=== PATIENT | female | born 1985 | race African-American/Black ===

== ENCOUNTER 2017-05-22 12:36 | Emergency (ER) | payer SELFPAY ==
[~2017-05-22] VITALS: Ht 154.9 cm; Wt 69.6 kg
[~2017-05-22 12:36] MED LIST: ALBUAER19 INH; ALBUAER2 INH; CETI10TA10 PO; INSUINJ8 SC; MONT1TAB3 PO; MTR600X PO; NVLGI SC; OXYC5TAB PO; PRENTAB26 PO
[2017-05-22 12:48] VITALS: TEMP 36.8; Ht 154.9 cm; Wt 69.6 kg
--- NOTE | 2017-05-22 14:45 | DIAGNOSTIC IMAGING REPORT ---
AP PELVIS AND LEFT HIP 3 VIEWS CLINICAL HISTORY: Left hip pain and numbness COMPARISON STUDY: No previous studies for comparison. FINDINGS: No fractures or dislocations are visualized. There are no erosive or destructive changes. IMPRESSION: Unremarkable conventional radiographic evaluation of the pelvis and left hip Electronically signed by: Ritesh Stratton M.D. 05/22/2017 2:43 PM Dictated Date/Time: 05/22/2017 2:42 PM
--- NOTE | 2017-05-22 14:45 | DIAGNOSTIC IMAGING REPORT ---
L SHOULDER MIN 2 VIEWS ROUTINE CLINICAL HISTORY: 31 years-old Female presenting with LEFT, EVAL PAIN , left shoulder pain and numbness, unable to move. TECHNIQUE: Internal rotation, external rotation, and Grashey views of the left shoulder were obtained. COMPARISON: None. FINDINGS: Glenohumeral and acromioclavicular joints congruent. No deformity of the humeral head. No degenerative change. Regional soft tissues within normal limits. Visualized portion of the left hemithorax normal. IMPRESSION: No acute osseous injury of the left shoulder. Electronically signed by: Matheus Garcia M.D. 05/22/2017 2:43 PM Dictated Date/Time: 05/22/2017 2:42 PM
--- NOTE | 2017-05-22 15:16 | EMERGENCY ROOM VISIT NOTE ---
ED Visit Note First contact with patient: 13:24 CHIEF COMPLAINT: Left shoulder pain times 2 days, left hip pain times one day HISTORY OF PRESENT ILLNESS: Patient is a [id number] 31-year-old female who presents emergency department for evaluation of left shoulder pain. He states that when she woke up yesterday she "could not move her left arm." She states that she could wiggle and move her fingers, but had pain that prevented her from moving her left arm. She noted pain in her elbow, her shoulder and into the left side of her neck. She denies any associated numbness or tingling. She denies any injury to the arm, no unusual activity or exercise prior to the onset of her pain. She was seen at a [facility] yesterday, and was prescribed naproxen which she did not take. She also did not try and the other interventions or medications. The patient primarily complains of pain in the top of her left shoulder. She rates her pain a 8/10. It is worse with specific movements, and radiates slightly toward the neck and the elbow. Patient also notes that she developed pain in the lateral aspect of the left hip that shoots slightly down the thigh. No radiation of the pain into her buttocks, and no low back pain. She denies any numbness, tingling or weakness into the left leg. No bowel or bladder incontinence. She does not have a prior history of cervical or lumbar spine disease. REVIEW OF SYSTEMS: Review of systems as per HPI. All other systems reviewed were negative. At least 6 systems reviewed. PMH: Electronic medical records are reviewed and summarized as above/below. See Problem List. SOCIAL HISTORY: Patient lives at home with her family. 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 Smoker. PHYSICAL EXAM: Vital Signs: Reviewed nurse's notes. PHYSICAL EXAM: CONSTITUTIONAL: Patient is a pleasant, well-appearing 31-year-old - Slov[place] female who is awake and alert and laying supine on the gurney in no acute distress. She is holding her left arm flexed at the elbow, across her abdomen, but is able to push up with her left arm to sit up, and uses both arms to disrobe and change into a gown. There is no is significant discomfort with position changes. NECK: Supple without lymphadenopathy. No thyromegaly. No meningeal signs. Full active range of motion without discomfort. CARDIOVASCULAR: Regular rate and rhythm. Peripheral pulses easily palpable. RESPIRATORY: Breath sounds equal and clear to auscultation. ABDOMEN: Bowel sounds are present. Abdomen is soft, nontender and nondistended. INTEGUMENTARY: No lesions or rash, normal skin turgor. LYMPH: No lymphadenopathy. SPINE: Examination of the patient's back does not demonstrate any ecchymosis, abrasions or outward signs of trauma. No erythema, increased warmth or induration. Patient has no midline discomfort to palpation. There is no pain over the SI joint or the sciatic notch. Full flexion, extension, rotation and lateral bending are noted. EXTREMITIES: Leg lengths are symmetrical. Negative logroll bilaterally. Normal strength including dorsi-flexion and plantar flexion of the great toes and ankles and flexion and extension of the knees and flexion of the hips. Negative bilateral straight leg raise testing. Lower extremity DTRs are equal and symmetrical bilaterally. Distal pulses are easily palpable. Sensation light touch is intact over the lower extremities bilaterally. The patient has reproducible discomfort over the left greater trochanter, extending down the IT band laterally. Examination of the left shoulder does not demonstrate any obvious deformity. She has some discomfort over the proximal biceps tendon, and over the rotator cuff insertion. There is no pain over the clavicle or the acromioclavicular joint. No pain over the spinous scapular, she does have some discomfort in the left trapezius muscle distribution. Internal and external rotation are full. She has discomfort with forward flexion greater than 100, and abduction greater than 90. Good rotator cuff strength testing. Left upper extremity is neurovascularly intact. Strength to resisted shoulder flexion/abduction, elbow flexion/extension, wrist flexion/extension, intrinsic hand strength, quality controller strength, and thumb opposition is 5/5 bilaterally. EMERGENCY DEPARTMENT COURSE: The patient was seen and examined as above. She presents the emergency department for evaluation of left shoulder pain and left hip pain. She has no neurologic deficits on exam. X-rays of the left shoulder , and left hip and pelvis were obtained, and did not note any acute abnormality. I suspect her findings may be related to a tendinitis/bursitis. She was encouraged to take the naproxen that she was previously prescribed by the walk-in clinic yesterday. She should ice the areas that are affected, and avoid any activity that aggravates her symptoms. She may benefit from physical therapy if her symptoms do not improve, and was encouraged to follow up with her primary care provider for further care through findings do not appear consistent with central pathology such as a demyelinating process. Certainly no evidence for CVA/TIA. I do not suspect cervical or lumbar radiculopathy. Medication reconciliation: I attest that I have personally reviewed the patient' s current medication list. Blood pressure screening : Patient was found to have normal blood pressure on screening and does not require follow-up. AP PELVIS AND LEFT HIP 3 VIEWS CLINICAL HISTORY: Left hip pain and numbness COMPARISON STUDY: No previous studies for comparison. FINDINGS: No fractures or dislocations are visualized. There are no erosive or destructive changes. IMPRESSION: Unremarkable conventional radiographic evaluation of the pelvis and left hip L SHOULDER MIN 2 VIEWS ROUTINE CLINICAL HISTORY: 31 years-old Female presenting with LEFT, EVAL PAIN , left shoulder pain and numbness, unable to move. TECHNIQUE: Internal rotation, external rotation, and Grashey views of the left shoulder were obtained. COMPARISON: None. FINDINGS: Glenohumeral and acromioclavicular joints congruent. No deformity of the humeral head. No degenerative change. Regional soft tissues within normal limits. Visualized portion of the left hemithorax normal. IMPRESSION: No acute osseous injury of the left shoulder. Problem List Medical Problems: (1) Anxiety State Nos Status: Chronic (2) Asthma Status: Chronic (3) Cardiac Murmurs Nec Status: Chronic (4) Depression Status: Chronic (5) Elective induction of labor planned Status: Resolved (6) Gestational diabetes mellitus (GDM) Status: Resolved (7) Major depressive disorder Status: Resolved Current/Historical Medications No Active Prescriptions or Reported Meds Allergies Coded Allergies: BEE STING (Unverified Allergy, Unknown, ANAPHYLAXIS, 05/22/17) Vital Signs Date Time Temp Pulse Resp B/P (MAP) Pulse Ox O2 Delivery O2 Flow Rate FiO2 05/22/17 15:34 97 135/89 97 05/22/17 12:48 36.8 113 18 119/84 97 Room Air Departure Information Impression Primary Impression: Left shoulder pain Additional Impression: Left hip pain Prescriptions No Active Prescriptions or Reported Meds Referrals No Doctor, Assigned (PCP) Patient Instructions [facility] Additional Instructions Take the Naproxen as prescribed by [facility]. Acetaminophen(Tylenol) may be used for fever or pain. Use 1000mg every six hours as needed. Avoid using more than 3000mg in a 24 hour period. This medication can be taken if you need to drive, work, or perform activities which may be dangerous when taking narcotic pain medication. Ice compresses for 20 minutes at a time four times daily for 2-3 days. Rest and elevate your injury. Gradually resume normal activity as symptoms allow. Continue current medications. Follow up with your primary care physician if your symptoms are not improving in 5-7 days. Problem Qualifiers
[2017-05-22 15:34] VITALS: BP 135/89; PULSE 97; O2SAT 97
== END 2017-05-22 15:35 | disposition home or self-care (01) ==
LOC: C.EDB 12:37 → C.EDD 15:35
DX: M25.512 Pain in left shoulder (principal); M25.552 Pain in left hip; F41.9 Anxiety disorder, unspecified; F32.9 Major depressive disorder, single episode, unspecified

== ENCOUNTER 2018-08-10 05:20 | Inpatient (IN) ==
[~2018-08-10 05:20] MED LIST changes: -ALBUAER19 INH; -ALBUAER2 INH; -CETI10TA10 PO; -INSUINJ8 SC; +LACTATED RINGER'S 1,000 ML IV SCH; -MONT1TAB3 PO; -MTR600X PO; -NVLGI SC; -OXYC5TAB PO; -PRENTAB26 PO
[2018-08-10] MEDS ORDERED: CITRIC ACID/SODIUM CITRATE 15 ML UDC PO SCH ×2 (06:00)
[2018-08-10] MEDS ORDERED: LACTATED RINGER'S 1,000 ML IV SCH ×3 (06:00→10:15)
[2018-08-10] MEDS ORDERED: CEFAZOLIN 2000MG 2,000 MG/15 ML SYR IV SCH (06:00)
[2018-08-10] MEDS ORDERED: CEFAZOLIN 2,000 MG in SYRINGE 0 ML IV SCH (06:00)
[2018-08-10 06:44] LABS: Basophils # (auto) 0.01 K/uL (0-0.2); Basophils % (auto) 0.1 %; Eosinophils # (auto) 0.07 K/uL (0-0.5); Eosinophils % (auto) 0.8 %; Hematocrit (blood only) 35.8 % (37-47); Hemoglobin 12.1 g/dL (12.0-16.0); Immature Granulocytes # (auto) 0.02 K/uL (0.00-0.02); Immature Granulocytes % (auto) 0.2 %; Lymphocytes # (auto) 1.65 K/uL (1.2-3.4); Lymphocytes % (auto) 18.3 %; Mean Corpuscular Hgb Conc 33.8 g/dL (32-36); Mean Corpuscular Volume 91.8 fL (80-100); Mean Platelet Volume 11.5 fL (7.4-10.4); Monocytes % (auto) 4.4 %; Neutrophils # (auto) 6.85 K/uL (1.4-6.5); Neutrophils % (auto) 76.2 %; Platelet Count 201 K/uL (130-400); RDW Coefficient of Variation 14.4 % (11.5-14.5)
--- NOTE | 2018-08-10 08:21 | History & Physical Bridge Note ---
Date of Service August 10, 2018 History & Physical Bridge Note I have examined the patient, reviewed the History & Physical and in the interval since the performance of the History & Physical I have noted the following changes of clinical significance: no changes noted
--- NOTE | 2018-08-10 09:04 | Anesthesiology Consultation ---
Date of Service August 10, 2018 Assessment & Plan (1) Encounter for pre-operative examination: Chart Review Chart Review: Acceptable Risk for Surgery and Patient NOT seen in Pre Admission Testing History Surgery Operation Date: 08/10/18 07:30 Proposed Procedures p Repeat Section in LD - Erick Grijalva MD Height/Weight Height: 5 ft 1 in Weight: 82 kg Allergies Allergy/AdvReac Type Severity Reaction Status Date / Time bee venom protein (honey bee) Allergy Unknown ANAPHYLAXIS Verified 08/09/18 15: 51 Medications Home Medications Medication Instructions Recorded Confirmed Last Taken Ca cmb [id number] 10 mg PO DAILY 07/30/18 08/09/18 07/29/18 10:00 [Vitamin D-3 with Aloe] [id number] fumarate-FA 1 tab PO DAILY 07/30/18 08/09/18 07/29/18 10:00 [] ferrous sulfate 325 mg PO DAILY 07/30/18 08/09/18 07/29/18 10:00 insulin glargine [Basaglar KwikPen 20 units SUBCUT QAM 07/30/18 08/09/18 12:00 U-100 Insulin] insulin lispro 20 unit SUBCUT AC 07/30/18 08/09/18 07/30/18 12:00 montelukast [Singulair] 10 mg PO PM 07/30/18 08/09/18 07/29/18 10:00 albuterol sulfate [Ventolin HFA] 1 puff INHALATION Q6H PRN 08/09/18 08/09/18 Unknown insulin glargine [Basaglar KwikPen 70 unit SUBCUT QPM 08/09/18 08/09/18 Unknown U-100 Insulin] Active Medications Generic Name Dose Route Start Last Admin Trade Name Freq PRN Reason Stop Dose Admin Lactated Ringer's 1,000 mls @ 999 mls/hr 08/10/18 06:00 08/10/18 07:00 Lr IV 08/10/18 10:00 999 mls/hr .Q1H1M GEOVANNA Infusion Past Medical History Medical History Anxiety H/O Asthma Cardiac murmur CONGENITAL -- BENIGN. Depression H/O GERD (gastroesophageal reflux disease) R/T Gestational diabetes Scoliosis MINOR Past Surgical History Surgical History History of adenoidectomy History of section History of tonsillectomy Social History Smoking Status: Former smoker tobacco type: cigarettes Do You Dip or Chew Tobacco: No Smoking End Date: 2016 Hx Alcohol Use: No Alcohol type: wine alcohol intake frequency: a few times a month Hx Substance Use: Yes substance use type: does not use Physical Exam Vital Signs Last Vital Signs Temp 36.7 C 08/10/18 07:02 Pulse 74 08/10/18 07:19 Resp 20 08/10/18 07:02 BP 136/90 08/10/18 07:19 Testing Laboratory Results 08/10/18 05:31 Blood Type AB Positive 08/10/18 05:31 Antibody Screen NEGATIVE 08/10/18 05:31 08/10/18 07:14 POC Glucose 85
[2018-08-10] MEDS ORDERED: MoRPHine SULFATE PF 1 MG/ML 10 ML AMP/VIAL ONE (09:15)
[2018-08-10] MEDS ORDERED: ePHEDrine sulfate 50 MG/ML AMP IV PRN (09:52)
[2018-08-10] MEDS ORDERED: DiphenhydrAMINE HCL 50 MG/ML VIAL IV PRN (09:52)
[2018-08-10] MEDS ORDERED: NALOXONE HCL 1 MG in SODIUM CHLORIDE 0.9% 1000ML 1,000 ML IV PRN (09:52)
[2018-08-10] MEDS ORDERED: NALOXONE HCL 0.08 MG in SYRINGE 1.8 ML IV PRN (09:52)
[2018-08-10] MEDS ORDERED: ONDANSETRON INJ 2 MG/ML 2 ML VIAL IV PRN (09:52)
[2018-08-10] MEDS ORDERED: HYDROmorphone INJ 0.5 MG/0.5 ML SYR IV PRN (09:52)
[2018-08-10] MEDS ORDERED: MEPERIDINE HCL 25 MG/ML CARP IV PRN (09:52)
[2018-08-10] MEDS ORDERED: NALOXONE HCL 0.4 MG/1 ML VIAL/CARP IV PRN (09:52)
[2018-08-10] MEDS ORDERED: NALBUPHINE HCL INJ 10 MG/ML AMP IV PRN (09:52)
[2018-08-10] MEDS ORDERED: METOCLOPRAMIDE HCL 10 MG in SODIUM CHLORIDE 0.9% 50 ML IV PRN (09:52)
[2018-08-10] MEDS ORDERED: MoRPHine SULFATE 2 MG/ML CARP IV PRN (09:52)
[2018-08-10] MEDS ORDERED: MoRPHine SULFATE PF 1 MG/ML 10 ML AMP/VIAL INT SPINAL ONE (09:52)
[2018-08-10] MEDS ORDERED: LACTATED RINGER'S 500 ML IV PRN (09:52)
[2018-08-10] MEDS ORDERED: DC INTRASPINAL MORPHINE SCH (10:00)
[2018-08-10] MEDS ORDERED: NO NARCOTICS OR SEDATIVES SCH (10:00)
[2018-08-10] MEDS ORDERED: SODIUM CHLORIDE 0.9% 1000ML 1,000 ML IV SCH (10:00)
[2018-08-10] MEDS ORDERED: OXYTOCIN 10 UNITS/ML VIAL ONE (10:35)
[2018-08-10] MEDS ORDERED: ePHEDrine sulfate 50 MG/ML SYR ONE (10:35)
[2018-08-10] MEDS ORDERED: miSOPROStol 200 MCG TAB ONE (10:35)
[2018-08-10] MEDS ORDERED: SUPERCREAM 0.870% 15 GM JAR EXT PRN (10:42)
[2018-08-10] MEDS ORDERED: SENNA 8.6 MG TAB PO PRN (10:42)
[2018-08-10] MEDS ORDERED: BENZOCAINE 20% AER SPR 82.5 GM CAN EXT PRN (10:42)
[2018-08-10] MEDS ORDERED: MAGNESIUM HYDROXIDE SUSP 30 ML UDC PO PRN (10:42)
[2018-08-10] MEDS ORDERED: HYDROCORTISONE ACETATE 25 MG SUPP PR PRN (10:42)
--- NOTE | 2018-08-10 10:42 | Post Operative Brief Note ---
Immediate Post Op Note v1 Date of Surgery August 10, 2018 Pre & Post Diagnosis Operation Date: 08/10/18 07:30 Pre-Op Diagnosis: Previous Section Delivery; Desires Repeat Section. Post-Op Diagnosis: Same as Preop Procedure Operation Date: 08/10/18 07:30 Actual Procedures p Section in Labor and Delivery. Live Female at 0947.(Bilateral ) - Erick Grijalva MD Surgeon Erick Grijalva MD Senior Chemical Engineer Dr King Estimated Blood Loss 600 Findings Consistent with Post-Op Diagnosis Drains Reed Catheter
[2018-08-10] MEDS: KETOROLAC 30 MG/ML VIAL IV PRN ×2 (12:20→19:59)
--- NOTE | 2018-08-10 12:59 | History and Physical Report ---
DATE OF ADMISSION: 08/10/2018 HISTORY OF PRESENT ILLNESS: The patient is a 32-year-old G2, P1, due date 08/25/2017 making her at 37 weeks and 6 days today. The patient's has been complicated by: 1. Gestational diabetes, on insulin. 2. IUGR. 3. Preeclampsia. She was seen yesterday by maternal medicine, and upon evaluation, the recommendation of maternal medicine was to have the patient done today and the reason was because of her IUGR, gestational diabetes and worsening blood pressures. Today on labor and delivery, she is being seen and her blood pressures are elevated. Blood pressures have been in the 160s/90s. Fingerstick glucose is 87. heart rate is category 1. COURSE: As stated on the HPI. PAST MEDICAL HISTORY: 1. History of asthma. 2. History of heart murmurs. 3. History of vitamin D deficiency. 4. ADHD. PAST SURGICAL HISTORY: The patient has had previous section as well as dental surgery in the past. SOCIAL HISTORY: The patient denies tobacco, drug or alcohol use. FAMILY HISTORY: Noncontributory. BUSINESS OPERATIONS COORDINATOR HISTORY: The patient delivered a live in 2015 by . Infant weighed 7 pounds 2 ounces. PHYSICAL EXAMINATION: GENERAL: Well-developed, well-nourished black female, in no acute distress. HEART: S1, S2, regular rhythm and rate. LUNGS: Clear to auscultation bilaterally. ABDOMEN: Gravid. EXTREMITIES: No cyanosis, clubbing or edema. ASSESSMENT AND PLAN: A 32-year-old G2, P1 at 37 weeks and 6 days, here for repeat section. The patient agrees to have today because of the followin. Worsening IUGR. 2. Preeclampsia. 3. Gestational diabetes, on insulin. The patient was seen yesterday by maternal medicine and recommended she be delivered today.
[2018-08-10] MEDS: OXYTOCIN 20 UNITS in LACTATED RINGER'S 1,000 ML IV SCH ×2 (13:21→21:48)
--- NOTE | 2018-08-10 14:32 | Anesthesiology Progress Note ---
Date of Service August 10, 2018 Anesthesia Post Procedure Vital Signs Vital Signs: Temp Pulse Pulse Resp BP BP Pulse Ox 08/10/18 14:07 36.5 C 20 08/10/18 13:25 36.6 C 80 18 132/89 100 08/10/18 13:13 72 142/85 H 93 08/10/18 13:08 79 89 L 08/10/18 13:06 86 86 L 08/10/18 13:04 73 147/88 H 08/10/18 13:03 74 94 08/10/18 12:58 72 93 08/10/18 12:53 74 143/86 H 94 08/10/18 12:48 71 93 08/10/18 12:44 72 87 L 08/10/18 12:43 70 135/92 92 08/10/18 12:38 72 93 08/10/18 12:33 68 128/82 93 08/10/18 12:28 70 94 08/10/18 12:23 69 131/86 94 08/10/18 12:18 74 93 08/10/18 12:14 68 125/77 08/10/18 12:13 69 94 08/10/18 12:08 75 95 08/10/18 12:03 72 96 08/10/18 11:58 72 96 08/10/18 11:56 76 89 L 08/10/18 11:53 69 96 08/10/18 11:48 83 96 08/10/18 11:45 36.5 C 08/10/18 11:44 68 137/59 L 08/10/18 11:43 69 95 08/10/18 11:38 78 94 08/10/18 11:33 74 124/89 95 08/10/18 11:28 74 94 08/10/18 11:24 74 114/77 08/10/18 11:23 72 91 08/10/18 11:19 77 135/100 08/10/18 11:18 80 93 08/10/18 11:13 76 94 08/10/18 11:10 75 90 08/10/18 11:08 76 100 08/10/18 11:03 78 123/86 100 08/10/18 10:58 76 96 08/10/18 10:57 75 93 08/10/18 10:53 70 116/73 100 08/10/18 10:48 75 100 12/28/18 10:45 36.3 C L 18 08/10/18 10:43 76 114/74 100 08/10/18 07:19 74 136/90 08/10/18 07:02 36.7 C 75 20 165/96 H 08/10/18 06:21 36.7 C 75 20 165/96 H 08/10/18 06:09 75 165/96 H 08/10/18 06:06 36.7 C 75 20 165/96 H 08/10/18 05:35 37.0 C 18 08/10/18 05:32 86 137/91 Pain Intensity Lower Medial Abdomen: Pain Intensity: 6 Notes Mental Status: alert / awake / arousable and participated in evaluation Patient Amnestic to Procedure: Yes Nausea / Vomiting: adequately controlled Pain: adequately controlled Airway Patency, RR, SpO2: stable & adequate BP & HR: stable & adequate Hydration State: stable & adequate Anesthetic Complications: no major complications apparent
[2018-08-10] MEDS: SIMETHICONE 80 MG CHEW PO SCH ×3 (15:06→20:53)
--- NOTE | 2018-08-10 15:14 | Operative Report ---
DATE OF OPERATION: 08/10/2018 INDICATION FOR SURGERY: This is a 32-year-old G2, P1 at 37+ weeks who has a previous section. Today, she underwent repeat section for the followin. Worsening IUGR. 2. Preeclampsia. 3. Gestational diabetes, on insulin. The patient was seen by maternal medicine in [place] on 08/09/2018 and was recommended to have section in the next day. PREOPERATIVE DIAGNOSES: 1. Prior , the patient is to do . 2. IUGR. 3. Preeclampsia. 4. Gestational diabetes, on insulin. POSTOPERATIVE DIAGNOSES: 1. Prior , the patient is to do . 2. IUGR. 3. Preeclampsia. 4. Gestational diabetes, on insulin. PROCEDURE: Repeat section. SURGEON: Erick Grijalva MD PAPER COUNTER: Jacek King MD ANESTHESIOLOGIST: Bryant Reaves MD ANESTHESIA: Spinal anesthesia was used. FINDINGS: Live infant in cephalic presentation, loose nuchal cord which was easily reduced. The uterus and adnexa, rest of the abdominal exam is unremarkable. INTRAVENOUS FLUIDS: 1000 mL. URINE OUTPUT: 250 mL. ESTIMATED BLOOD LOSS: 600 mL. COMPLICATIONS: None. DRAINS: Reed catheter. PATHOLOGY: Placenta and cord blood. DISPOSITION: Stable to recovery room. DESCRIPTION OF PROCEDURE: The patient was taken to the operating room where she was prepped and draped in normal sterile fashion. Timeout was called. A Pfannenstiel incision was made with a scalpel and then carried down to the fascia. Fascia was incised in the midline and extended laterally on both sides. The rectus abdominus muscle was sharply dissected off the fascia. Abdomen was entered sharply. Once inside the abdomen, the findings were as dictated above. An Alvin retractor was placed in the abdomen for retraction. The lower segment of the vesicouterine peritoneum was sharply dissected off. A transverse incision was made in the lower segment of the uterus and extended laterally on both sides. Infant was delivered. There was nuchal cord which was easily reduced. Cord was clamped and cut and the handed over to the pediatric team. Infant's weight, and other findings are in the pediatric record. Cord blood was obtained. Placenta was manually removed. Uterus was exteriorized and cleared of all clots and debris. Uterus incision was closed with Vicryl in 2 layers. There was good hemostasis at the end of the closure. The uterus was returned into the abdominal cavity. Copious amount of irrigation was used to irrigate the abdomen. There was good hemostasis at the end of irrigation. The peritoneum and uterus were closed using plain suture. Fascia was closed using a Vicryl stitch. SubQ was reapproximated using plain suture and skin was closed with britt. All instruments were removed from the abdomen and accounted for x2. The patient and infant are doing well, stable and in recovery room. I attest to the content of the Intraoperative Record and any orders documented therein. Any exception s are noted below.
[2018-08-10] MEDS: DOCUSATE SODIUM 100 MG CAP PO SCH (20:56)
[2018-08-11] MEDS ORDERED: ZOLPIDEM TARTRATE 5 MG TAB PO PRN (03:52)
[2018-08-11] MEDS ORDERED: ONDANSETRON INJ 2 MG/ML 2 ML VIAL IV PRN (03:52)
[2018-08-11] MEDS ORDERED: PROMETHAZINE HCL 25 MG in SODIUM CHLORIDE 0.9% 50 ML IV PRN (03:52)
[2018-08-11] MEDS ORDERED: DiphenhydrAMINE HCL 50 MG/ML VIAL IV PRN (03:52)
[2018-08-11] MEDS: IBUPROFEN 600 MG TAB PO PRN ×5 (04:08→21:39)
[2018-08-11] MEDS: OXYCODONE/ACETAMINOPHEN 5mg/325mg TAB PO PRN ×5 (04:08→21:39)
[2018-08-11 06:47] LABS: Basophils # (auto) 0.01 K/uL (0-0.2); Basophils % (auto) 0.1 %; Eosinophils # (auto) 0.06 K/uL (0-0.5); Eosinophils % (auto) 0.5 %; Hematocrit (blood only) 32.7 % (37-47); Hemoglobin 11.1 g/dL (12.0-16.0); Immature Granulocytes # (auto) 0.03 K/uL (0.00-0.02); Immature Granulocytes % (auto) 0.3 %; Lymphocytes # (auto) 1.19 K/uL (1.2-3.4); Lymphocytes % (auto) 10.1 %; Mean Corpuscular Hgb Conc 33.9 g/dL (32-36); Mean Corpuscular Volume 90.8 fL (80-100); Mean Platelet Volume 10.3 fL (7.4-10.4); Monocytes # (auto) 0.32 K/uL (0.11-0.59); Monocytes % (auto) 2.7 %; Neutrophils % (auto) 86.3 %; Platelet Count 170 K/uL (130-400); RDW Coefficient of Variation 14.2 % (11.5-14.5); RDW Standard Deviation 47.2 fL (36.4-46.3); White Blood Count 11.81 K/uL (4.8-10.8)
[2018-08-11] MEDS: DOCUSATE SODIUM 100 MG CAP PO SCH ×2 (09:07→21:40)
[2018-08-11] MEDS: PRENATAL VITAMIN 1 TAB PO SCH (09:07)
[2018-08-11] MEDS: SIMETHICONE 80 MG CHEW PO SCH ×4 (09:08→21:40)
[2018-08-11] MEDS: FERROUS SULFATE 325 MG TAB PO SCH (09:12)
--- NOTE | 2018-08-11 10:12 | Surgery Progress Note ---
Date of Service August 11, 2018 Subjective doing ok Physical Exam 2 Vital Signs (Past 24 Hours): Last Vital Signs Temp 36.6 C 08/11/18 04:00 Pulse 84 08/11/18 04:00 Resp 18 08/11/18 04:00 BP 128/85 08/11/18 04:00 Pulse Ox 97 08/11/18 04:00 Constitutional: WD/WN, vitals as above comfortable incision clean dry and intact abdomen soft and non-tender no edema neg Wendy's will increase diet and activity
[2018-08-11] MEDS ORDERED: BISACODYL 5 MG TABEC PO SCH (20:00)
[2018-08-12] MEDS: IBUPROFEN 600 MG TAB PO PRN ×4 (04:10→20:32)
[2018-08-12 06:44] LABS: Basophils # (auto) 0.02 K/uL (0-0.2); Basophils % (auto) 0.2 %; Eosinophils # (auto) 0.07 K/uL (0-0.5); Eosinophils % (auto) 0.6 %; Hematocrit (blood only) 29.6 % (37-47); Hemoglobin 9.9 g/dL (12.0-16.0); Immature Granulocytes # (auto) 0.02 K/uL (0.00-0.02); Immature Granulocytes % (auto) 0.2 %; Lymphocytes # (auto) 1.07 K/uL (1.2-3.4); Lymphocytes % (auto) 8.8 %; Mean Corpuscular Hgb Conc 33.4 g/dL (32-36); Mean Corpuscular Volume 91.9 fL (80-100); Mean Platelet Volume 10.8 fL (7.4-10.4); Monocytes # (auto) 0.51 K/uL (0.11-0.59); Monocytes % (auto) 4.2 %; Neutrophils # (auto) 10.46 K/uL (1.4-6.5); Platelet Count 175 K/uL (130-400); RDW Coefficient of Variation 14.5 % (11.5-14.5); RDW Standard Deviation 49.5 fL (36.4-46.3); Red Blood Count 3.22 M/uL (4.2-5.4); White Blood Count 12.15 K/uL (4.8-10.8)
[2018-08-12] MEDS: DOCUSATE SODIUM 100 MG CAP PO SCH ×2 (09:23→20:32)
[2018-08-12] MEDS: FERROUS SULFATE 325 MG TAB PO SCH (09:23)
[2018-08-12] MEDS: SIMETHICONE 80 MG CHEW PO SCH ×4 (09:23→20:31)
[2018-08-12] MEDS: PRENATAL VITAMIN 1 TAB PO SCH (09:24)
[2018-08-12] MEDS: OXYCODONE/ACETAMINOPHEN 5mg/325mg TAB PO PRN ×3 (09:29→20:34)
[2018-08-12] MEDS ORDERED: BISACODYL 10 MG SUPP PR PRN (10:42)
[2018-08-12 11:14] LABS: Albumin Level 2.2 gm/dl (3.4-5.0); BUN Creatinine Ratio 13.6 (10-20); Calcium 9.1 mg/dl (8.5-10.1); Creatinine Clr Calc Pharmacy 129.7 ml/min; Est GFR (Non-African American) 120.8; Potassium 3.7 mmol/L (3.5-5.1)
[2018-08-12 11:17] LABS: Albumin Globulin Ratio 0.5 (0.9-2); Bilirubin,Total 0.3 mg/dl (0.2-1); Globulin 4.3 gm/dl (2.5-4.0); Total Protein 6.5 gm/dl (6.4-8.2)
--- NOTE | 2018-08-12 11:32 | Obstetrical Progress Note ---
Date of Service August 12, 2018 Assessment & Plan (1) delivery delivered: C/sec day #2 Preclampsia GDMA2 pt doing well stable vitals FS; stable not requiring glucose BP: stable CMP ordered Subjective Ambulation: ambulating normally Voiding: no voiding problems Passing Gas:: Yes Diet Tolerance:: clear liquids Lochia:: Small Feeding Type:: breast feeding Review of Systems All systems reviewed & are unremarkable except as noted in HPI & below Physical Exam Vital Signs (Past 24 Hours) Last Vital Signs Temp 36.7 C 08/12/18 08:00 Pulse 103 H 08/12/18 08:00 Resp 18 08/12/18 08:00 BP 134/86 08/12/18 08:00 Pulse Ox 100 08/11/18 23:55 Constitutional WD/WN, vitals as above well developed and well nourished Eyes PERRL, conjunctivae normal, anicteric sclerae ENMT external ear and nose normal, oropharynx normal Neck trachea midline, no thyromegaly Respiratory normal respiratory effort, lungs clear to auscultation Cardiovascular RRR, no murmur, no edema Chest (Breasts) normal inspection/palpation of breasts Gastrointestinal (Abdomen) normal bowel sounds, soft, nontender, no hepatosplenomegaly Musculoskeletal no cyanosis or clubbing, extremities motor strength 5/5 Skin no rashes, warm and dry + incision (Clean,dry and intact) Neurologic patellar DTR's 2+ bilat, sensation intact Psychiatric A+Ox3, euthymic affect Genitourinary normal external appearance Lymphatic no cervical or axillary lymphadenopathy
[2018-08-13] MEDS: IBUPROFEN 600 MG TAB PO PRN ×4 (00:25→15:01)
[2018-08-13] MEDS: OXYCODONE/ACETAMINOPHEN 5mg/325mg TAB PO PRN ×5 (00:26→19:00)
[2018-08-13 06:47] LABS: Basophils # (auto) 0.02 K/uL (0-0.2); Basophils % (auto) 0.2 %; Eosinophils # (auto) 0.12 K/uL (0-0.5); Eosinophils % (auto) 1.1 %; Hematocrit (blood only) 29.6 % (37-47); Hemoglobin 9.9 g/dL (12.0-16.0); Immature Granulocytes # (auto) 0.03 K/uL (0.00-0.02); Immature Granulocytes % (auto) 0.3 %; Lymphocytes # (auto) 1.58 K/uL (1.2-3.4); Lymphocytes % (auto) 15.1 %; Mean Corpuscular Hgb Conc 33.4 g/dL (32-36); Mean Corpuscular Volume 92.8 fL (80-100); Mean Platelet Volume 10.4 fL (7.4-10.4); Monocytes # (auto) 0.46 K/uL (0.11-0.59); Monocytes % (auto) 4.4 %; Neutrophils # (auto) 8.26 K/uL (1.4-6.5); Neutrophils % (auto) 78.9 %; Platelet Count 196 K/uL (130-400); RDW Coefficient of Variation 14.5 % (11.5-14.5); RDW Standard Deviation 49.6 fL (36.4-46.3); Red Blood Count 3.19 M/uL (4.2-5.4); White Blood Count 10.47 K/uL (4.8-10.8)
--- NOTE | 2018-08-13 09:32 | Surgery Progress Note ---
Date of Service August 13, 2018 Subjective feeling well baby not able to go home today Physical Exam 2 Vital Signs (Past 24 Hours): Last Vital Signs Temp 36.9 C 08/13/18 07:05 Pulse 93 H 08/13/18 07:05 Resp 16 08/13/18 07:05 BP 136/90 08/13/18 07:17 Pulse Ox 96 08/13/18 07:05 Constitutional: WD/WN, vitals as above comfortable Skin: no rashes, warm and dry incision clean dry and intact passing gas no edema Neg Wendy's POD#3 tent discharge in AM
--- NOTE | 2018-08-13 09:44 | Anesthesiology Progress Note ---
Date of Service August 13, 2018 Anesthesia Post Procedure Vital Signs Vital Signs: Temp Pulse Pulse Resp BP BP Pulse Ox 08/13/18 07:17 136/90 142/93 H 08/13/18 07:05 36.9 C 93 H 16 138/93 96 08/12/18 23:50 36.6 C 96 H 18 126/85 98 08/12/18 20:15 36.7 C 98 H 18 125/87 99 08/12/18 15:00 37.2 C 109 H 18 129/87 Pain Intensity Lower Medial Abdomen: Pain Intensity: 8 Notes Mental Status: alert / awake / arousable and participated in evaluation Patient Amnestic to Procedure: Yes Nausea / Vomiting: adequately controlled Pain: adequately controlled Airway Patency, RR, SpO2: stable & adequate BP & HR: stable & adequate Hydration State: stable & adequate Neuraxial Anesthesia: was administered and sensory block resolved Anesthetic Complications: no major complications apparent and Pt Satisfied with anesthetic care
[2018-08-13] MEDS: DOCUSATE SODIUM 100 MG CAP PO SCH ×2 (10:40→20:39)
[2018-08-13] MEDS: FERROUS SULFATE 325 MG TAB PO SCH (10:40)
[2018-08-13] MEDS: SIMETHICONE 80 MG CHEW PO SCH ×4 (10:40→20:37)
[2018-08-13] MEDS: PRENATAL VITAMIN 1 TAB PO SCH (10:41)
[2018-08-14] MEDS: IBUPROFEN 600 MG TAB PO PRN ×3 (00:34→10:08)
[2018-08-14] MEDS: OXYCODONE/ACETAMINOPHEN 5mg/325mg TAB PO PRN ×3 (00:35→10:09)
[2018-08-14] MEDS ORDERED: Nursing to Pharmacy Communication ONE (07:15)
[2018-08-14 09:09] VITALS: BP 128/86; TEMP 98.4; O2SAT 99
[2018-08-14] MEDS: PRENATAL VITAMIN 1 TAB PO SCH (09:48)
[2018-08-14] MEDS: DOCUSATE SODIUM 100 MG CAP PO SCH (09:48)
[2018-08-14] MEDS: FERROUS SULFATE 325 MG TAB PO SCH (09:48)
[2018-08-14] MEDS: SIMETHICONE 80 MG CHEW PO SCH (09:48)
--- NOTE | 2018-08-14 10:27 | Obstetrical Progress Note ---
Date of Service August 14, 2018 Assessment & Plan (1) delivery delivered: c/sec day #4 doing well d/c home with instructions Subjective Ambulation: ambulating normally Voiding: no voiding problems Passing Gas:: Yes Diet Tolerance:: clear liquids Lochia:: Small Feeding Type:: breast feeding Review of Systems All systems reviewed & are unremarkable except as noted in HPI & below Physical Exam Vital Signs (Past 24 Hours) Last Vital Signs Temp 36.9 C 08/14/18 09:02 Pulse 99 H 08/14/18 09:02 Resp 20 08/14/18 09:02 BP 128/86 08/14/18 09:02 Pulse Ox 99 08/14/18 09:02 Constitutional WD/WN, vitals as above well developed and well nourished Eyes PERRL, conjunctivae normal, anicteric sclerae ENMT external ear and nose normal, oropharynx normal Neck trachea midline, no thyromegaly Respiratory normal respiratory effort, lungs clear to auscultation Cardiovascular RRR, no murmur, no edema Chest (Breasts) normal inspection/palpation of breasts Gastrointestinal (Abdomen) normal bowel sounds, soft, nontender, no hepatosplenomegaly Musculoskeletal no cyanosis or clubbing, extremities motor strength 5/5 Skin no rashes, warm and dry + incision (Clean,dry and intact) Neurologic patellar DTR's 2+ bilat, sensation intact Psychiatric A+Ox3, euthymic affect Genitourinary normal external appearance Lymphatic no cervical or axillary lymphadenopathy
[2018-08-14 11:22] VITALS: PULSE 96
--- NOTE | 2018-08-27 14:24 | Discharge Summary ---
CHIEF COMPLAINT: 1. at term. 2. complicated by gestational diabetes, IUGR and preeclampsia. HISTORY OF PRESENT ILLNESS: This is a 32-year-old G2, P1, due date 08/25/2017 making a 37 weeks and 6 days on 08/10/2018. The patient's was complicated by: 1. Gestational diabetes, on insulin. 2. Intrauterine growth restriction. 3. Preeclampsia. The patient was seen on 08/09/2018 by [facility] in [place], and upon evaluation, recommendation was to have to undergo a that day. She was therefore sent to labor and delivery at [facility] where her blood pressures were in the 160s/90s. Fingerstick was 87 and a heart rate was category 1. The patient underwent a section as recommended, delivered a live , weight and Apgars in the pediatric records. Surgery was unremarkable. The patient met all milestones postop. On postop day 1, 2, and 3, the patient continued to do well. The patient was discharged home on postop day 4, which was 08/14/2018. PAST MEDICAL HISTORY: 1. History of asthma. 2. History of heart murmurs. 3. History of vitamin D deficiency. 4. History of ADHD. 5. History of gestational diabetes in . PAST SURGICAL HISTORY: The patient has had a previous section and dental surgery. SOCIAL HISTORY: The patient denies tobacco, drug or alcohol use. FAMILY HISTORY: Noncontributory. 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 Infant then weighed 7 pounds and 2 ounces. ALLERGIES: No known drug allergies. REVIEW OF SYSTEMS: Negative except as in the HPI. PHYSICAL EXAMINATION: GENERAL: Well-developed, well-nourished black female, in no acute distress. VITAL SIGNS: On 08/14/2018, temperature 36.9, pulse is 96, blood pressure is 128/86. LABORATORY DATA: Labs on 08/13/2018 showed hemoglobin of 9.9, hematocrit of 29.6, platelets 196. CONDITION ON DISCHARGE: Stable. OPERATION: Repeat section. DISCHARGE DIAGNOSES: Repeat section, complicated by diabetes and IUGR. PLAN ON DISCHARGE: The patient is discharged home with instructions regarding activity, diet, followup appointments and medications.
== END 2018-08-14 12:30 | disposition home or self-care (01) | DRG 788 ==
LOC: 4S1 05:20 → EDSTATUS 07:30 → 4S2 14:46

== ENCOUNTER 2018-10-03 06:13 | Inpatient (IN) ==
[2018-10-03] MEDS ORDERED: METOCLOPRAMIDE HCL INJ 5 MG/ML 2 ML VIAL IV STA (06:38)
[2018-10-03] MEDS ORDERED: SODIUM CHLORIDE 0.9% 1000ML 1,000 ML IV SCH (06:45)
[2018-10-03] MEDS: HYDROmorphone INJ 1 MG/ML SYRINGE IV PRN ×2 (06:52→08:38)
[2018-10-03 07:01] LABS: Hematocrit (blood only) 49.4 % (37-47); Hemoglobin 17.1 g/dL (12.0-16.0); Immature Granulocytes # (auto) 0.01 K/uL (0.00-0.02); Immature Granulocytes % (auto) 0.1 %; Lymphocytes # (auto) 0.57 K/uL (1.2-3.4); Lymphocytes % (auto) 5.8 %; Mean Corpuscular Hgb Conc 34.6 g/dL (32-36); Mean Corpuscular Volume 92.5 fL (80-100); Mean Platelet Volume 10.6 fL (7.4-10.4); Monocytes # (auto) 0.61 K/uL (0.11-0.59); Monocytes % (auto) 6.2 %; Neutrophils # (auto) 8.65 K/uL (1.4-6.5); Neutrophils % (auto) 87.9 %; Platelet Count 155 K/uL (130-400); RDW Coefficient of Variation 14.7 % (11.5-14.5); RDW Standard Deviation 49.6 fL (36.4-46.3); Red Blood Count 5.34 M/uL (4.2-5.4); White Blood Count 9.84 K/uL (4.8-10.8)
[2018-10-03] MEDS ORDERED: DKA GOAL RANGE 150-250 mg/dl ONE ×2 (07:07→09:10)
[2018-10-03] MEDS ORDERED: SODIUM CHLORIDE 0.9% 1000ML 1,000 ML IV ONE (07:07)
[2018-10-03 07:18] LABS: iSTAT Creatinine 1.3 mg/dl (0.6-1.3); iSTAT Hemoglobin 18.7 g/dl (12.0-16.0); iSTAT Ionized Calcium 1.17 mmol/l (1.12-1.32)
[2018-10-03 07:34] LABS: Alanine Aminotransferase 222 U/L (12-78); Albumin Globulin Ratio 0.9 (0.9-2); Albumin Level 4.3 gm/dl (3.4-5.0); Alkaline Phosphatase 84 U/L (45-117); Aspartate Aminotransferase 322 U/L (15-37); BUN Creatinine Ratio 8.7 (10-20); Bilirubin,Total 1.4 mg/dl (0.2-1); Blood Urea Nitrogen 15 mg/dl (7-18); Calcium 9.2 mg/dl (8.5-10.1); Carbon Dioxide 8 mmol/L (21-32); Chloride 91 mmol/L (98-107); Creatine Kinase 566 U/L (26-192); Creatine Kinase MB 5.1 ng/ml (0.5-3.6); Creatinine Clr Calc Pharmacy 39.4 ml/min; Est GFR (African American) 43.9; Est GFR (Non-African American) 37.9; Globulin 4.9 gm/dl (2.5-4.0); Glucose 365 mg/dl (70-99); Sodium 127 mmol/L (136-145); Total Protein 9.2 gm/dl (6.4-8.2); Troponin I < 0.015 ng/ml (0-0.045)
[2018-10-03 07:48] LABS: Pregnancy Test, Serum Negative (Negative)
[2018-10-03] MEDS ORDERED: PIPERACILL/TAZOBAC CONSULT ACTIVE PRN (07:56)
[2018-10-03] MEDS ORDERED: DAPTOmycin 275 MG in SYRINGE 0 ML IV ONE (07:56)
[2018-10-03] MEDS ORDERED: PIPERACILLIN/TAZOBACTAM 4.5 GM/120 ML BAG IV ONE (07:56)
[2018-10-03 08:05] LABS: HCO3 ABG 9 mmol/L (19-24); Oxygen Saturation ABG 98.3 % (90-95); PCO2 ABG 21 mmHg (35-46); PO2 ABG 121 mm/Hg (80-95); pH ABG 7.24 (7.35-7.45)
[2018-10-03] MEDS ORDERED: OPTIRAY 320 125ml IV PRN (08:11)
[2018-10-03 08:30] LABS: Allen Test Pos (Pos)
[2018-10-03 08:33] LABS: Potassium 3.8 mmol/L (3.5-5.1)
[2018-10-03 08:38] LABS: Estimated Average Glucose 114 mg/dl; Hemoglobin A1C 5.6 % (4.5-5.6)
--- NOTE | 2018-10-03 08:39 | CT Scan Report ---
CT abd pelvis IV con only CLINICAL HISTORY: 33 years-old Female presenting with Pt c/o diffuse abd pain. TECHNIQUE: Multidetector CT of the abdomen and pelvis was performed after the administration of intra venous contrast. IV contrast: 119 mL of Optiray 320. One or more dose lowering techniques were used c onsistent with the principles of ALARA (as low as reasonably achievable), including automatic exposur e control, mA or kV adjustment to individual patient size, and/or use of iterative reconstruction. COMPARISON: None. CT DOSE (mGy.cm): The estimated cumulative dose is 597.50 mGy.cm. FINDINGS: Toll Lineman topogram: Unremarkable. Lung bases: Normal heart size. No pericardial or pleural effusion. No focal infiltrate or nodule at t he lung bases. Liver: Normal morphology. Density consistent with severe hepatic steatosis. No focal lesion. Patent h epatic vasculature. Biliary: No intrahepatic or extrahepatic biliary ductal dilatation. Normal gallbladder. Pancreas: Pancreatic parenchymal enlargement and mild heterogeneous diffuse parenchymal edema. Signif icant peripancreatic fluid along both the ventral and dorsal aspect of the entire increase. Focal col lections noted along the ventral aspect of the tail (series 7 image 145). Inflammatory change also tr acks into the lesser sac and root of the small bowel mesentery. Periduodenal fluid. No pancreatic marlyn winnie dilatation. Spleen: Normal. Adrenal glands: Normal. Kidneys and ureters: Mild focal cortical thinning of the posterior aspect of the upper pole of the le ft kidney indicative of reflux nephropathy. Renal parenchyma otherwise normal. No nephrolithiasis or hydronephrosis. Bladder: Normal. Pelvic organs: Degenerating calcified fibroid at the fundus. Ovaries normal. Bowel: Few diverticula noted in the cecum. The appendix is normal. No bowel obstruction. Mild circumf erential wall thickening with hyperenhancement of the descending portion of the duodenum with mild di stention and smooth tapering at the level of the horizontal portion. Peritoneal cavity: Trace free fluid in the abdomen. Primarily there is retroperitoneal fluid. No free intraperitoneal gas. Lymph nodes: No enlarged lymph nodes in the abdomen or pelvis. Vasculature: Aorta and IVC patent and normal in caliber. Abdominal wall: Diastasis of the rectus abdominis. Postsurgical changes of a Pfannenstiel incision. Musculoskeletal: Normal. IMPRESSION: 1. Interstitial edematous pancreatitis with acute peripancreatic fluid collection along the pancreat ic tail. No evidence of necrosis at this time. Exuberant surrounding inflammatory change and secondar y reactive changes of the duodenum. 2. No radiopaque gallstones. 3. Severe hepatic steatosis. Electronically signed by: Matheus Garcia M.D. 10/03/2018 8:38 AM
--- NOTE | 2018-10-03 08:41 | CT Scan Report ---
CT angio chest PE protocol HISTORY: 33 years-old Female with Chest Pain, eval for PE. Acute chest pain with shortness of breat h TECHNIQUE: Multiple CTA images of the chest were obtained after the intravenous administration of 119 ml Optiray 320. Coronal and sagittal MIPS were obtained from the axial data set and were submitted for review. All measurements were obtained according to NASCET criteria. A dose lowering technique w as utilized adhering to the principles of ALARA. COMPARISON: CT abdomen and pelvis of same day. FINDINGS: CTA: The heart is normal in size without pericardial effusion. The thoracic aortic arch is normal in cours e and caliber without aneurysm or dissection. The imaged great vessels appear to be patent. The pulmo nary arterial tree is opacified to level of the segmental branches. Evaluation of the distal segmenta l and subsegmental branches is limited secondary to respiratory motion. No focal filling defects iden tified to suggest pulmonary thromboembolic disease . CT CHEST: Partially imaged a millimeter hypodense nodule about the right thyroid. Thyroid appears mildly hetero geneous. Mild residual thymic tissue about the anterior mediastinum. No adenopathy by CT size criteri a. There is no pneumothorax or pleural effusion. Mild subsegmental bibasilar atelectasis. No focal airsp dorothy consolidation to suggest pneumonia. The central airways appear to be patent. Severe hepatic steat osis with hepatomegaly . Partially imaged free fluid and edema noted about the upper abdomen. The aj ast parenchyma and soft tissues appear unremarkable. The bones appear intact. IMPRESSION: 1. No acute intrathoracic abnormality, specifically no evidence of pulmonary thromboembolic disease. 2. No adenopathy or focal airspace consolidation to suggest pneumonia. 3. Severe hepatic steatosis. 4. Partially imaged edema and free fluid of the upper abdomen. Please see separately dictated CT abdo men and pelvis for further details. The above report was generated using voice recognition software. It may contain grammatical, syntax o r spelling errors. Electronically signed by: Fei Lancaster M.D. 10/03/2018 8:40 AM
[2018-10-03 08:58] LABS: Appearance Urine Cloudy (Clear); Bacteria Urine Automated Negative (Negative); Bilirubin Urine Negative (Negative); Blood Urine 3+ (Negative); Color Urine Yellow; Epithelial Cell Urine Auto >30 /lpf (0-5); Glucose Urine UA 1+ (Negative); Leukocyte Esterase Urine Negative (Negative); Nitrite Urine Negative (Negative); Protein Urine 4+ (Negative); Specific Gravity Urine > 1.045 (1.000-1.030); Urobilinogen Urine Negative (Negative)
[2018-10-03 09:02] LABS: Ketones Urine 4+ (Negative)
[2018-10-03] MEDS ORDERED: MODERATE STRESS LEVEL ONE (09:10)
[2018-10-03 09:15] LABS: Renal Epithelial Cells Urine 0-5 /lpf (0-5)
[2018-10-03 09:21] LABS: Beta-Hydroxybutyrate 99.08 mg/dl (0.2-2.81)
[2018-10-03 09:35] LABS: Amphetamines+Metham, Urine Neg (Neg); Barbiturates, Urine Neg (Neg); Benzodiazepine, Urine Neg (Neg); Cocaine, Urine Neg (Neg); MDMA (Ecstacy), Urine Neg (Neg); Methadone, Urine Neg (Neg); Opiate, Urine Pos (Neg); Phencyclidine, Urine Neg (Neg)
[2018-10-03] MEDS ORDERED: NSS + 20MEQ KCL 20 MEQ/1,000 ML BAG IV SCH (09:45)
--- NOTE | 2018-10-03 09:52 | History & Physical Report ---
Date of Service October 03, 2018 Assessment & Plan (1) DKA (diabetic ketoacidoses): -Admit to ICU secondary to DKA with significant metabolic acidosis -consult drawer liner Dr. Crabtree -DKA insulin gtt protocol ordered with goal range 150-250 -IVF NS with 20meq KCL 250ml/hr -when bsg in goal range with switch to D51/2 NS + 20meq KCL at 150ml/hr -bmp, vbg, mag ,phos q4hr -BSG q1hr -NPO -defer further management to drawer liner (2) Pancreatitis: -NPO -Aggressive fluid resuscitation as above -Monitor LFT and lipase level -Check fasting lipid panel in a.m. -Patient with intermittent NSAIDs and EtOH use (3) Gestational diabetes: -treated with insulin during -has been off insulin post -admitting bsg was 378, A1C 5.6 -Insulin gtt per DKA protocol -glycemic pharmacist on board (4) Asthma: -No acute exacerbation, as needed albuterol (5) Depression: -Was treated with Wellbutrin outpatient however patient has since discontinued this -Mood is stable (6) S/P : -7 weeks post op secondary to preeclampsia, gestational diabetes and IUGR by Dr. Grijalva on 08/10/18 -tolerated procedure well post op, was treated with macrobid x 7 days for dyusria post op on 08/22 -incision well healed (7) Hepatic steatosis: -Per CT scan -check fasting lipid panel in a.m. -low fat, low cholesterol diet when able to tolerate po -recommend appropriate follow up as outpatien (8) DVT prophylaxis: -scds disposition: D/C to home when able Follow up: PCP Dr. Nathan upon discharge Incidental findings found on CT was 1mm right thyroid nodule as well as severe hepatic steatosis. Would recommend appropriate outpatient follow-up. Patient was seen in collaboration with Dr. Murray, please see addendum. History of Present Illness Chief Complaint: Abdominal pain, n/v x 4 days. Primary Care Provider: Harinder Nathan This is a 33-year-old -[place] female who has a significant past medical history of chronic back pain, heart murmur, asthma, GERD, history of preeclampsia complicating , history of gestational diabetes, depression who presents to [facility] secondary to abdominal pain, nausea and vomiting times 4 days. Of significant note patient is 7 weeks . She was confined at [facility] from 08/10/18 to secondary to repeat . Patient underwent secondary to preeclampsia, gestational diabetes as well as IUGR by Dr. Grijalva. Patient tolerated procedure well without postoperative complications. Her blood sugars remain normal in the postop period. Outpt records reveal pt developed nausea, vaginal pain and dysuria after britt removed on 08/21/18. Therefore, given Macrobid for 7 days and completed. She had been doing well except for incisional discomfort until 4-5 days ago. Patient developed abdominal pain , emesis, nausea, inability to tolerate p.o. intake. Symptoms worsened which prompted her to present to ED. She currently is not breast-feeding and states she has not checked her blood sugar since leaving hospital or taken insulin. She denies fever, chills, sweats, lightheadedness, dizziness, chest pain, cough , URI symptoms, hemoptysis, shortness of breath, diarrhea, dysuria, increased frequency, urgency with urination, hematuria, vaginal discharge or bleeding. and child is at bedside. She has been taking ibuprofen 600 mg as needed for pain. She does drink alcohol approximately 3-4 times weekly, 2 glasses of wine. Allergies Allergy/AdvReac Type Severity Reaction Status Date / Time bee venom protein (honey bee) Allergy Unknown ANAPHYLAXIS Verified 10/03/18 07: 05 Home Medications Home Medications Medication Instructions Recorded Confirmed Type albuterol sulfate [Ventolin HFA] 1 puff INHALATION Q6H PRN 08/09/18 10/03/18 History Past Med/Surg History Medical History Asthma Cardiac murmur CONGENITAL -- BENIGN. 10/09/15 echo: The examination is adequate to evaluate the referral indication. The qualitative LV ejection fraction is 60-64% (normal). The left ventricular diastolic function is normal. No significant valvular disease is present. Depression H/O Anxiety H/O GERD (gastroesophageal reflux disease) R/T Scoliosis MINOR Gestational diabetes Surgical History History of adenoidectomy History of tonsillectomy History of section x 2 Family History Other Adopted Social History Current Living Situation: Spouse and Significant Other Other Information That Helps Us Care for You: No Feels Safe at Home: Yes Safety Concerns: Feels Safe At This Time Smoking Status: Current some day smoker Cigarettes per Day: 2 QOD Hx Alcohol Use: Yes Alcohol type: wine Alcohol Intake Frequency: a few times a week Hx Substance Use: No Beliefs That Will Affect Care: None Preferred Language: Sudanese 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: Effective Review of Systems All systems reviewed & are unremarkable except as noted in HPI & below Physical Exam 2 Vital Signs (Past 24 Hours): Last Vital Signs Temp 36.5 C 10/03/18 06:17 Pulse 106 H 10/03/18 09:00 Resp 16 10/03/18 09:00 BP 152/104 H 10/03/18 09:00 Pulse Ox 100 10/03/18 09:00 Physical Exam: Gen: WD/WN, F, ill appearing, sitting up in bed, pleasant, conversing easily Head: Normocephalic, Atraumatic Eyes: Sclera normal, no conjunctival injection, PERRLA, EOMI ENT: Gross hearing intact, normal pharynx, mucous membranes dry Neck: supple, no adenopathy, No JVD, no bruit, Resp: Clear to auscultation b/l, no wheeze, rales, rhonchi. Normal insp/exp effort, no accessory muscle use CV: Regular rate, regular rhythm, soft 1/6 DALIA noted LUSB, no rub, gallop, or ectopy Abd: + hypoactiveBS x 4, soft, mild distension, tenderness to epigastrum, RUQ with rebound, no rigidity or guarding, abdominal scar noted, well healed Musculoskeletal: moves extremities active rom x 4, strength intact, good dot net architect strength Extremities: No edema bilaterally Skin: warm, dry, no rash, mod turgor, cap refill < 2sec, Neuro: Alert and oriented x 3, speech normal, good mood/affect, cran nerve 2-12 intact grossly : deferred Results & Data Laboratory Results Short CBC 10/03/18 10/03/18 Range/Units 06:50 06:50 WBC 9.84 (4.8-10.8) K/uL Hgb 17.1 H (12.0-16.0) g/dL Hct 49.4 H (37-47) % Plt Count 155 (130-400) K/uL Est Cr Clr Drug Dosing 39.4 ml/min BMP 10/03/18 06:50 Sodium 127 L Potassium 3.8 Chloride 91 L Carbon Dioxide 8 L* BUN 15 Creatinine 1.75 H Glucose 365 H* Calcium 9.2 Cardiac Enzymes 10/03/18 Range/Units 06:50 Total Creatine Kinase 566 H (26-192) U/L CK-MB (CK-2) 5.1 H (0.5-3.6) ng/ml Troponin I < 0.015 (0-0.045) ng/ml Liver Function 10/03/18 Range/Units 06:50 Total Bilirubin 1.4 H (0.2-1) mg/dl AST 322 H (15-37) U/L ALT 222 H (12-78) U/L Alkaline Phosphatase 84 (45-117) U/L Albumin 4.3 (3.4-5.0) gm/dl Urine 10/03/18 Range/Units 08:40 Urine Color Yellow Urine Appearance Cloudy H (Clear) Urine pH 6.0 (4.5-7.5) Ur Specific [place] > 1.045 H (1.000-1.030) Urine Protein 4+ H (Negative) Urine Glucose (UA) 1+ H (Negative) Diagnostic Findings CTA Chest: IMPRESSION: 1. No acute intrathoracic abnormality, specifically no evidence of pulmonary thromboembolic disease. 2. No adenopathy or focal airspace consolidation to suggest pneumonia. 3. Severe hepatic steatosis. 4. Partially imaged edema and free fluid of the upper abdomen. Please see separately dictated CT abdomen and pelvis for further details. Abd/Pelvis CT: IMPRESSION: 1. Interstitial edematous pancreatitis with acute peripancreatic fluid collection along the pancreatic tail. No evidence of necrosis at this time. Exuberant surrounding inflammatory change and secondary reactive changes of the duodenum. 2. No radiopaque gallstones. 3. Severe hepatic steatosis. ECG Rate (beats per minute): 121 Rhythm: sinus tachycardia Code Status & VTE Plan Code Status Full Code VTE Prophylaxis Plan VTE Prophylaxis will be ordered: Yes Supervising Physician Co-Signing Physician Notes I have seen and examined the patient and have discussed the case with the provider above. I agree with the assessment and plan as stated. DO Trevor _ (1) DKA (diabetic ketoacidoses) Diabetes mellitus complication detail: without coma Diabetes mellitus type: other specified (including AGUSTIN) Qualified Code(s): E13.10 - Other specified diabetes mellitus with ketoacidosis without coma (2) Depression Depression Type: unspecified Qualified Code(s): F32.9 - Major depressive disorder, single episode, unspecified (3) Pancreatitis Acute pancreatitis complication: unspecified Chronicity: acute Pancreatitis type: unspecified pancreatitis type Qualified Code(s): K85.90 - Acute pancreatitis without necrosis or infection, unspecified (4) Gestational diabetes Gestational diabetes mellitus control: insulin-controlled Trimester: unspecified trimester Qualified Code(s): O24.414 - Gestational diabetes mellitus in , insulin controlled (5) Asthma Asthma complication type: uncomplicated Asthma persistence: persistent Asthma severity: moderate Qualified Code(s): J45.40 - Moderate persistent asthma, uncomplicated
[2018-10-03] MEDS: INSULIN REGULAR 250 UNITS in SODIUM CHLORIDE 0.9% 247.5 ML IV SCH (09:53)
--- NOTE | 2018-10-03 09:55 | Communication Note ---
Date of Service: October 03, 2018 32-year-old female who recently delivered her second child on 08/09/2018 via . Her was complicated again by gestational diabetes and she was on insulin, which she stopped after delivery based on the history from her first . Over the past several days she has experienced significant vomiting, fatigue, dehydration, nausea followed a couple of days later by acute epigastric pain. She has a history of asthma and reports an elevated respiratory rate with any kind of exertion in the last day. She is currently not wheezing and is stable from a respiratory status with a clear chest x-ray. Workup in the ER reveals anion gap metabolic acidosis consistent with DKA associated with acute pancreatitis. She is not currently breast- feeding. She denies any infectious symptoms including no dysuria, no cough, fevers or chills, and no diarrhea. Defer continuation of antibiotics to ICU attending. She is not currently tolerating p.o. Review of outpatient records reveals nausea, vaginal pain and dysuria after britt removed on 08/21/18. She was given Macrobid for 7 days. This was initially conveyed as an incisional infection by the patient, however there was no report of an incisional infection in the record and her incision is well-healed. The patient states that all infectious symptoms have cleared, and she is improved from that standpoint. 2 L of IV fluids given in the ER. Discussed the case with ICU attending who will accept patient for initial treatment. DO Trevor
[2018-10-03 10:17] LABS: BUN Creatinine Ratio 9.8 (10-20); Calcium 7.3 mg/dl (8.5-10.1); Creatinine Clr Calc Pharmacy 55.6 ml/min; Est GFR (African American) 66.6; Est GFR (Non-African American) 57.4; Magnesium 1.3 mg/dl (1.8-2.4); Potassium 3.7 mmol/L (3.5-5.1)
[2018-10-03] MEDS ORDERED: PHARMACY GLYCEMIC MGMT CONSULT PRN (10:23)
[2018-10-03] MEDS ORDERED: GLUCOSE 10 TABS/TUBE PO PRN (10:24)
[2018-10-03] MEDS ORDERED: GLUCAGON FOR INJ 1 MG VIAL IM PRN (10:24)
[2018-10-03] MEDS ORDERED: CARBOHYDRATES FOR HYPOGLYCEMIA PO PRN (10:24)
[2018-10-03] MEDS ORDERED: DEXTROSE 50% 50 ML SYRINGE IV PRN (10:24)
[2018-10-03] MEDS ORDERED: GLUCOSE 40% GEL 15 GM TUBE PO PRN (10:24)
[2018-10-03] MEDS ORDERED: ICU PROTOCOL FOR HYPERGLYCEMIA PRN (10:30)
[2018-10-03 10:33] LABS: Phosphorus 1.3 mg/dl (2.5-4.9)
[2018-10-03] MEDS ORDERED: POTASSIUM PHOS 3 MMOL/1 ML INFUSION IV STA ×2 (10:38→18:14)
[2018-10-03] MEDS ORDERED: SODIUM CHLORIDE 0.9% 1000ML 500 ML IV ONE ×2 (10:50→11:15)
[2018-10-03] MEDS ORDERED: ALBUTEROL HFA 8 GM INHALER INH PRN (10:58)
[2018-10-03] MEDS ORDERED: PENDING D5 1/2NS+20mEq KCL IVF SCH (11:00)
[2018-10-03] MEDS ORDERED: POTASSIUM PHOSPHATE 30 MMOL in SODIUM CHLORIDE 0.9% 500 ML IV ONE ×2 (11:00→18:30)
[2018-10-03] MEDS ORDERED: POTASSIUM CHLORIDE 20 MEQ in D5W AND 1/2NSS 1,000 ML IV SCH (11:00)
[2018-10-03 11:03] LABS: BUN Creatinine Ratio 10.1 (10-20); Calcium 7.5 mg/dl (8.5-10.1); Creatinine Clr Calc Pharmacy 57.4 ml/min; Est GFR (African American) 69.3; Est GFR (Non-African American) 59.8; Magnesium 1.3 mg/dl (1.8-2.4); Potassium 3.6 mmol/L (3.5-5.1)
[2018-10-03 11:27] LABS: Phosphorus 1.1 mg/dl (2.5-4.9)
--- NOTE | 2018-10-03 11:31 | Pharmacy Report ---
Pharmacy Glycemic Short Note 2 - Date of Service October 03, 2018 - Glycemic Short BSG Results (Last 24 hours): 10/03/18 10/03/18 10/03/18 06:50 06:52 06:57 Glucose 365 H* POC Glucose 374 H* POC Glucose (other) 378 H* 10/03/18 10/03/18 10/03/18 07:41 09:16 09:40 Glucose 278 H POC Glucose 306 H 274 H POC Glucose (other) 10/03/18 10/03/18 10:37 10:51 Glucose 246 H POC Glucose 210 H POC Glucose (other) OUTPATIENT ANTIDIABETIC REGIMEN: * N/A ASSESSMENT: 10/03 * Patient admitted to ICU today due to NV, abdominal pain, dehydration, DKA, pancreatitis, possible HELLP syndrome * Patient has a h/o gestational diabetes, in July 2018, no treatment for DM following delivery * Initial labs: Glu 365, Na 127 (corrected Na 131-132), AG 28, Bicarb 9, BOHB 99 , K 3.8, Lipase 34505 * 2 L NS given in ED, 500cc bolus x 1 ordered in ICU. Maint fluid NS + 20mEq KCl ordered * Insulin drip initiated in ED, moderate stress, goal range 150-250 PLAN FOR INPATIENT GLYCEMIC CONTROL: * Check A1c with next lab draw * Continue insulin drip at this time * Incorporated dextrose into IVF's when BSG within goal range, last BSG 210 --> discussed w/ Rail Specialist, will begin D5NS + 20mEq KCl @ 250cc/hr to allow for continued insulin administration until ketoacidosis resolves * Lower goal range to 120-200mg/dL * If pt is permitted to eat, would cover carbs with Novolog SQ to help minimize over titration of rates up and down between meals PLAN FOR DISCHARGE: * to be determined
[2018-10-03] MEDS ORDERED: INSULIN PROTOCOL GOAL RANGE ONE (11:39)
[2018-10-03] MEDS: D5NSS + 20MEQ KCL 20 MEQ/1,000 ML BAG IV SCH ×2 (12:01→15:14)
[2018-10-03] MEDS: HydrALAZINE HCL 20 MG/ML VIAL IV SCH ×3 (12:05→20:15)
[2018-10-03] MEDS: MAGNESIUM SULFATE / D5W 1 GM/100 ML BAG IV SCH ×2 (12:06→13:10)
--- NOTE | 2018-10-03 12:22 | Emergency Department Note ---
Entered by Rajwinder Saleh acting as a scribe for Abdoul Coates MD History of Present Illness General Chief complaint: Respiratory Problems Stated complaint: TROUBLE BREATHING Time Seen by Provider: 10/03/18 06:27 Source: patient History of Present Illness Provider complaint: abdominal pain Onset (ago): day(s) 2 Location: abdomen Pain Consistency: + constant Maximum Pain Intensity: 10 Quality: + other (abdominal pain) Associated symptoms: + other (chest pain, back pain, body aches, weakness, difficulty breathing, vomiting) Treatments prior to arrival: other (inhalers) The patient is a 33 year old female who presents to the Emergency Room with complaints of constant abdominal pain beginning 2 days ago. She reports chest and back pain. The patient notes diffuse body aches and weakness. She states she has been having difficulty breathing. The patient reports a history of asthma and states she has been using her inhalers. She notes she has been vomiting, and has not eaten anything in the past couple days. The patient reports she had a 4 weeks ago, and had gestational diabetes while . Home Medications Home Medications Medication Instructions Recorded Confirmed Type albuterol sulfate [Ventolin HFA] 1 puff INHALATION Q6H PRN 08/09/18 10/03/18 History Allergies Allergy/AdvReac Type Severity Reaction Status Date / Time bee venom protein (honey bee) Allergy Unknown ANAPHYLAXIS Verified 10/03/18 07: 05 Past Med/Surg History Medical History Asthma Cardiac murmur CONGENITAL -- BENIGN. 10/09/15 echo: The examination is adequate to evaluate the referral indication. The qualitative LV ejection fraction is 60-64% (normal). The left ventricular diastolic function is normal. No significant valvular disease is present. Depression H/O Anxiety H/O GERD (gastroesophageal reflux disease) R/T Scoliosis MINOR Gestational diabetes Surgical History History of adenoidectomy History of tonsillectomy History of section x 2 Social History Current Living Situation: Spouse and Significant Other Other Information That Helps Us Care for You: No Feels Safe at Home: Yes Safety Concerns: Feels Safe At This Time Smoking Status: Current some day smoker Cigarettes per Day: 2 QOD Hx Alcohol Use: Yes Alcohol type: wine Alcohol Intake Frequency: a few times a week Hx Substance Use: No Beliefs That Will Affect Care: None Preferred Language: Arabic 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: Effective Review of Systems See HPI for pertinent positives & negatives. and A total of 10 systems reviewed and were otherwise negative Physical Exam Vital Signs Vital Signs - 24 hr 10/03/18 06:17 10/03/18 07:17 10/03/18 08:33 Temperature 36.5 C Temperature Source Oral Sepsis Recent Fever Within 48 Hours No Sepsis Action Taken by Nursing No Action Required Pulse Rate 136 H Pulse Rate [Left Apical] Pulse Rate [Right Finger] 110 H Pulse Rate from SpO2 Sensor Respiratory Rate 28 H 18 Respiratory Effort / Characteristics Non-Labored Non-Labored Spontaneous Respiratory Depth Normal Normal Respiratory Pattern Regular Regular Blood Pressure 139/107 H Blood Pressure [Left Arm] 128/98 Blood Pressure Mean 117 Blood Pressure Mean [Left Arm] 108 Blood Pressure Position [Left Arm] Pulse Oximetry 98 98 Oxygen Delivery Method Room Air Room Air Room Air 10/03/18 09:00 10/03/18 09:51 10/03/18 09:52 Temperature Temperature Source Sepsis Recent Fever Within 48 Hours Sepsis Action Taken by Nursing Pulse Rate 110 H 106 H Pulse Rate [Left Apical] Pulse Rate [Right Finger] 106 H Pulse Rate from SpO2 Sensor 110 H 106 H Respiratory Rate 16 20 18 Respiratory Effort / Characteristics Respiratory Depth Normal Respiratory Pattern Blood Pressure 151/95 H Blood Pressure [Left Arm] 152/104 H Blood Pressure Mean 113 Blood Pressure Mean [Left Arm] 120 Blood Pressure Position [Left Arm] Pulse Oximetry 100 100 100 Oxygen Delivery Method Room Air 10/03/18 10:07 10/03/18 10:30 Temperature 37.3 C Temperature Source Oral Sepsis Recent Fever Within 48 Hours Sepsis Action Taken by Nursing Pulse Rate 113 H Pulse Rate [Left Apical] 115 H 118 H Pulse Rate [Right Finger] Pulse Rate from SpO2 Sensor Respiratory Rate 22 16 Respiratory Effort / Characteristics Non-Labored Spontaneous Non-Labored Spontaneous Respiratory Depth Normal Normal Respiratory Pattern Regular Regular Blood Pressure Blood Pressure [Left Arm] 133/111 H 149/103 H Blood Pressure Mean Blood Pressure Mean [Left Arm] 118 118 Blood Pressure Position [Left Arm] Lying Lying Pulse Oximetry 100 100 Oxygen Delivery Method Room Air Room Air GENERAL: Awake, alert, well-appearing, in no distress. Patient is hyperventilating. HENT: Normocephalic, atraumatic. Oropharynx unremarkable. EYES: Normal conjunctiva. Sclera non-icteric. NECK: Supple. No nuchal rigidity. FROM. No masses. RESPIRATORY: Clear to auscultation. No wheezes. No rales. Normal respiratory effort. CARDIAC: Normal rate. Normal rhythm. No murmurs. No rubs. Extremities warm and well perfused. Pulses equal. No JVD. GI: Soft, non-distended. Diffusely tender throughout abdomen. No rebound or guarding. No masses. RECTAL: Deferred. MUSCULOSKELETAL: Atraumatic. Chest examination reveals no tenderness. The back is symmetrical on inspection without obvious abnormality. There is no CVA tenderness to palpation. No joint edema. LOWER EXTREMITIES: Calves are equal size bilaterally and non-tender. No edema. No discoloration. NEURO: Normal sensorium. No sensory or motor deficits noted. Course 0634: Past medical records reviewed. The patient was evaluated in room B12B, and a complete history and physical examination were performed. 0817: Upon reevaluation, the patient is resting. I discussed test results. They verbalized agreement with the treatment plan. 0821: I reviewed the patient's case with Malini [facility]-C[facility] She will evaluate the patient for further management. 0845: Discussed the case with Dr. Crabtree, resident service coordinator. Consultations Consultation #1: Malini Wynne PA-C, [facility] hospitalist Time: 08:21 Consultation #2: Dr. Crabtree, resident service coordinator Time: 08:45 Administered Medications Hydralazine HCl (Hydralazine Hcl) 10 mg IV Q4H GEOVANNA Stop: 11/02/18 11:59 Last Admin: 10/03/18 12:05 Dose: 10 mg Insulin Human Regular 250 (units/ Sodium Chloride) 250 mls @ 1.3 mls/hr IV .Q24H GEOVANNA; Protocol Stop: 11/02/18 09:14 Last Titration: 10/03/18 10:50 Dose: 1.3 units/hr, 1.3 mls/hr Admin: 10/03/18 09:53 Dose: 1.6 units/hr, 1.6 mls/hr Potassium Phosphate 30 mmol/ (Sodium Chloride) 510 mls @ 102 mls/hr IV ONE ONE Stop: 10/03/18 15:59 Last Admin: 10/03/18 12:01 Dose: 102 mls/hr Potassium Chloride/Dextrose/Sod Cl (D5nss + 20meq Kcl) 20 meq in 1,000 mls @ 250 mls/hr IV .Q4H GEOVANNA Stop: 11/02/18 11:29 Last Admin: 10/03/18 12:01 Dose: 250 mls/hr Magnesium Sulfate/Dextrose (Magnesium Sulfate / D5w) 1 gm in 100 mls @ 100 mls/ hr IV Q1H GEOVANNA Stop: 10/03/18 13:29 Last Admin: 10/03/18 12:06 Dose: 100 mls/hr Discontinued Medications Hydromorphone HCl (Dilaudid) 1 mg IV Q15M PRN PRN Reason: Pain Stop: 10/17/18 06:37 Last Admin: 10/03/18 08:38 Dose: 1 mg Admin: 10/03/18 06:52 Dose: 1 mg Sodium Chloride (Nss 1000ml) 1,000 mls @ 999 mls/hr IV .Q1H1M GEOVANNA Stop: 10/03/18 07:45 Last Infusion: 10/03/18 08:08 Dose: 0 mls/hr Admin: 10/03/18 06:55 Dose: 999 mls/hr Sodium Chloride (Nss 1000ml) 1,000 mls @ 999 mls/hr IV .Q1H1M ONE Stop: 10/03/18 08:07 Last Infusion: 10/03/18 08:34 Dose: 0 mls/hr Admin: 10/03/18 07:26 Dose: 999 mls/hr Piperacillin Sod/Tazobactam Sod (Zosyn) 4.5 gm in 120 mls @ 240 mls/hr IV NOW ONE Stop: 10/03/18 08:25 Last Infusion: 10/03/18 09:11 Dose: 0 mls/hr Admin: 10/03/18 08:41 Dose: 240 mls/hr Daptomycin 275 mg/ Syringe 5.5 mls @ 2.75 mls/min IV NOW ONE Stop: 10/03/18 07:57 Last Admin: 10/03/18 08:38 Dose: 2.75 mls/min Potassium Chloride/Sodium Chloride (Normal Saline W/20 Meq Kcl) 20 meq in 1, 000 mls @ 250 mls/hr IV .Q4H GEOVANNA Stop: 11/02/18 09:44 Last Admin: 10/03/18 09:51 Dose: 250 mls/hr Sodium Chloride (Nss 1000ml) 500 mls @ 999 mls/hr IV .Q31M ONE Stop: 10/03/18 11:45 Last Admin: 10/03/18 11:05 Dose: 999 mls/hr Ioversol (Optiray 320 125ml) 119 ml IV ONCE PRN PRN Reason: Interaction Checking Stop: 10/07/18 08:10 Last Admin: 10/03/18 08:11 Dose: 119 ml Metoclopramide HCl (Reglan) 10 mg IV NOW STA Stop: 10/03/18 06:39 Last Admin: 10/03/18 06:52 Dose: 10 mg Miscellaneous (Insulin Protocol Dka Goal Range) 1 ea N/A ONE ONE Stop: 10/03/18 09:11 Last Admin: 10/03/18 12:01 Dose: 1 ea Miscellaneous (Insulin Protocol Moderate Stress Level) 1 ea N/A ONE ONE Stop: 10/03/18 09:11 Last Admin: 10/03/18 12:01 Dose: 1 ea Miscellaneous (Insulin Protocol Goal Range) 1 ea N/A ONE ONE Stop: 10/03/18 11:40 Last Admin: 10/03/18 12:02 Dose: 1 ea Medical Decision Making Differential Diagnosis Etiologies such as appendicitis, diverticulitis, PUD, biliary pathology, UTI, pancreatitis, obstruction, mesenteric ischemia, aortic pathology, infections, inflammatory bowel disease, renal colic, as well as others were entertained. Medical Records Attestation: I reviewed the patient's medical records. Home Medications Current Medication List: was personally reviewed by me Laboratory Data Attestation: I reviewed the patient's lab results. Result diagrams: 10/03/18 06:50 10/03/18 10:37 Lab Results 10/03/18 10/03/18 10/03/18 Range/Units 06:50 06:50 06:50 WBC 9.84 (4.8-10.8) K/uL RBC 5.34 (4.2-5.4) M/uL Hgb 17.1 H (12.0-16.0) g/dL POC Hgb (12.0-16.0) g/dl Hct 49.4 H (37-47) % POC Hct (37-47) % MCV 92.5 (80-100) fL MCH 32.0 (25-34) pg MCHC 34.6 (32-36) g/dL RDW Std Deviation 49.6 H (36.4-46.3) fL RDW Coeff of Arnold 14.7 H (11.5-14.5) % Plt Count 155 (130-400) K/uL MPV 10.6 H (7.4-10.4) fL Immature Gran % (Auto) 0.1 % Neut % (Auto) 87.9 % Lymph % (Auto) 5.8 % [place] % (Auto) 6.2 % Eos % (Auto) 0.0 % Baso % (Auto) 0.0 % Immature Gran # (Auto) 0.01 (0.00-0.02) K/uL Neut # (Auto) 8.65 H (1.4-6.5) K/uL Lymph # (Auto) 0.57 L (1.2-3.4) K/uL [place] # (Auto) 0.61 H (0.11-0.59) K/uL Eos # (Auto) 0.00 (0-0.5) K/uL Baso # (Auto) 0.00 (0-0.2) K/uL ABG pH (7.35-7.45) ABG pCO2 (35-46) mmHg ABG pO2 (80-95) mm/Hg ABG HCO3 (19-24) mmol/L ABG O2 Saturation (90-95) % ABG Base Excess (-9-1.8) mEq/L Isiah Test (Pos) VBG pH (7.36-7.41) Barometric Pressure mm/Hg Oxygen Given POC Sodium (135-144) mEq/L Sodium 127 L (136-145) mmol/L POC Potassium (3.3-5.0) mEq/L Potassium 3.8 (3.5-5.1) mmol/L POC Chloride (101-112) mEq/L Chloride 91 L (98-107) mmol/L Carbon Dioxide 8 L* (21-32) mmol/L POC Total CO2 (24-31) mEq/l Anion Gap 28.0 H (3-11) POC Anion Gap (16-25) mmol/L POC BUN (7-18) mg/dl BUN 15 (7-18) mg/dl Creatinine 1.75 H (0.6-1.2) mg/dl POC Creatinine (0.6-1.3) mg/dl Est Cr Clr Drug Dosing 39.4 ml/min Est GFR ( Amer) 43.9 Est GFR (Non-Af Amer) 37.9 BUN/Creatinine Ratio 8.7 L (10-20) Glucose 365 H* (70-99) mg/dl POC Glucose (70-99) POC Glucose (other) (70-99) mg/dl Estimat Average Glucose 114 mg/dl Hemoglobin A1c 5.6 (4.5-5.6) % Osmolality (280-300) mOsm/kg Calcium 9.2 (8.5-10.1) mg/dl POC Ioniz Calcium [place] (1.12-1.32) mmol/l Phosphorus (2.5-4.9) mg/dl Magnesium (1.8-2.4) mg/dl Total Bilirubin 1.4 H (0.2-1) mg/dl AST 322 H (15-37) U/L ALT 222 H (12-78) U/L Alkaline Phosphatase 84 (45-117) U/L Total Creatine Kinase 566 H (26-192) U/L CK-MB (CK-2) 5.1 H (0.5-3.6) ng/ml CK/CKMB % Calc 0.9 (0-3.0) Troponin I < 0.015 (0-0.045) ng/ml Total Protein 9.2 H (6.4-8.2) gm/dl Albumin 4.3 (3.4-5.0) gm/dl Globulin 4.9 H (2.5-4.0) gm/dl Albumin/Globulin Ratio 0.9 (0.9-2) Lipase 66063 H (73-393) U/L Beta-Hydroxybutyric Acd 99.08 H (0.2-2.81) mg/dl HCG, Qual (Negative) Urine Color Urine Appearance (Clear) Urine pH (4.5-7.5) Ur Specific [place] (1.000-1.030) Urine Protein (Negative) Urine Glucose (UA) (Negative) Urine Ketones (Negative) Urine Blood (Negative) Urine Nitrite (Negative) Urine Bilirubin (Negative) Urine Urobilinogen (Negative) Ur Leukocyte Esterase (Negative) Urine WBC (Auto) (0-5) /hpf Urine RBC (Auto) (0-4) /hpf U Hyaline Cast (Auto) (0-5) /lpf U Epithel Cells (Auto) (0-5) /lpf Urine Bacteria (Auto) (Negative) Ur Renal Epithelial Cell (0-5) /lpf Granular Casts (0) /lpf Urine Opiates Screen (Neg) Ur Methadone, Qual (Neg) Urine Barbiturates (Neg) Ur Phencyclidine (PCP) (Neg) U Amphetamin/Meth Scrn (Neg) MDMA (Ecstasy) Screen (Neg) U Benzodiazepines Scrn (Neg) Ur Cocaine Metabolite (Neg) U Marijuana (THC) Screen (Neg) 10/03/18 10/03/18 10/03/18 Range/Units 06:50 06:50 06:52 WBC (4.8-10.8) K/uL RBC (4.2-5.4) M/uL Hgb (12.0-16.0) g/dL POC Hgb (12.0-16.0) g/dl Hct (37-47) % POC Hct (37-47) % MCV (80-100) fL MCH (25-34) pg MCHC (32-36) g/dL RDW Std Deviation (36.4-46.3) fL RDW Coeff of Arnold (11.5-14.5) % Plt Count (130-400) K/uL MPV (7.4-10.4) fL Immature Gran % (Auto) % Neut % (Auto) % Lymph % (Auto) % [place] % (Auto) % Eos % (Auto) % Baso % (Auto) % Immature Gran # (Auto) (0.00-0.02) K/uL Neut # (Auto) (1.4-6.5) K/uL Lymph # (Auto) (1.2-3.4) K/uL [place] # (Auto) (0.11-0.59) K/uL Eos # (Auto) (0-0.5) K/uL Baso # (Auto) (0-0.2) K/uL ABG pH (7.35-7.45) ABG pCO2 (35-46) mmHg ABG pO2 (80-95) mm/Hg ABG HCO3 (19-24) mmol/L ABG O2 Saturation (90-95) % ABG Base Excess (-9-1.8) mEq/L Isiah Test (Pos) VBG pH (7.36-7.41) Barometric Pressure mm/Hg Oxygen Given POC Sodium (135-144) mEq/L Sodium (136-145) mmol/L POC Potassium (3.3-5.0) mEq/L Potassium (3.5-5.1) mmol/L POC Chloride (101-112) mEq/L Chloride (98-107) mmol/L Carbon Dioxide (21-32) mmol/L POC Total CO2 (24-31) mEq/l Anion Gap (3-11) POC Anion Gap (16-25) mmol/L POC BUN (7-18) mg/dl BUN (7-18) mg/dl Creatinine (0.6-1.2) mg/dl POC Creatinine (0.6-1.3) mg/dl Est Cr Clr Drug Dosing ml/min Est GFR ( Amer) Est GFR (Non-Af Amer) BUN/Creatinine Ratio (10-20) Glucose (70-99) mg/dl POC Glucose 374 H* (70-99) POC Glucose (other) (70-99) mg/dl Estimat Average Glucose mg/dl Hemoglobin A1c (4.5-5.6) % Osmolality 313 H (280-300) mOsm/kg Calcium (8.5-10.1) mg/dl POC Ioniz Calcium [place] (1.12-1.32) mmol/l Phosphorus (2.5-4.9) mg/dl Magnesium (1.8-2.4) mg/dl Total Bilirubin (0.2-1) mg/dl AST (15-37) U/L ALT (12-78) U/L Alkaline Phosphatase (45-117) U/L Total Creatine Kinase (26-192) U/L CK-MB (CK-2) (0.5-3.6) ng/ml CK/CKMB % Calc (0-3.0) Troponin I (0-0.045) ng/ml Total Protein (6.4-8.2) gm/dl Albumin (3.4-5.0) gm/dl Globulin (2.5-4.0) gm/dl Albumin/Globulin Ratio (0.9-2) Lipase (73-393) U/L Beta-Hydroxybutyric Acd (0.2-2.81) mg/dl HCG, Qual Negative (Negative) Urine Color Urine Appearance (Clear) Urine pH (4.5-7.5) Ur Specific [place] (1.000-1.030) Urine Protein (Negative) Urine Glucose (UA) (Negative) Urine Ketones (Negative) Urine Blood (Negative) Urine Nitrite (Negative) Urine Bilirubin (Negative) Urine Urobilinogen (Negative) Ur Leukocyte Esterase (Negative) Urine WBC (Auto) (0-5) /hpf Urine RBC (Auto) (0-4) /hpf U Hyaline Cast (Auto) (0-5) /lpf U Epithel Cells (Auto) (0-5) /lpf Urine Bacteria (Auto) (Negative) Ur Renal Epithelial Cell (0-5) /lpf Granular Casts (0) /lpf Urine Opiates Screen (Neg) Ur Methadone, Qual (Neg) Urine Barbiturates (Neg) Ur Phencyclidine (PCP) (Neg) U Amphetamin/Meth Scrn (Neg) MDMA (Ecstasy) Screen (Neg) U Benzodiazepines Scrn (Neg) Ur Cocaine Metabolite (Neg) U Marijuana (THC) Screen (Neg) 10/03/18 10/03/18 10/03/18 Range/Units 06:57 07:40 07:41 WBC (4.8-10.8) K/uL RBC (4.2-5.4) M/uL Hgb (12.0-16.0) g/dL POC Hgb 18.7 H (12.0-16.0) g/dl Hct (37-47) % POC Hct 55 H (37-47) % MCV (80-100) fL MCH (25-34) pg MCHC (32-36) g/dL RDW Std Deviation (36.4-46.3) fL RDW Coeff of Arnold (11.5-14.5) % Plt Count (130-400) K/uL MPV (7.4-10.4) fL Immature Gran % (Auto) % Neut % (Auto) % Lymph % (Auto) % [place] % (Auto) % Eos % (Auto) % Baso % (Auto) % Immature Gran # (Auto) (0.00-0.02) K/uL Neut # (Auto) (1.4-6.5) K/uL Lymph # (Auto) (1.2-3.4) K/uL [place] # (Auto) (0.11-0.59) K/uL Eos # (Auto) (0-0.5) K/uL Baso # (Auto) (0-0.2) K/uL ABG pH 7.24 L (7.35-7.45) ABG pCO2 21 L (35-46) mmHg ABG pO2 121 H (80-95) mm/Hg ABG HCO3 9 L (19-24) mmol/L ABG O2 Saturation 98.3 H (90-95) % ABG Base Excess -16.5 L (-9-1.8) mEq/L Isiah Test Pos (Pos) VBG pH (7.36-7.41) Barometric Pressure 742.4 mm/Hg Oxygen Given ROOM AIR POC Sodium 130 L (135-144) mEq/L Sodium (136-145) mmol/L POC Potassium 4.0 (3.3-5.0) mEq/L Potassium (3.5-5.1) mmol/L POC Chloride 98 L (101-112) mEq/L Chloride (98-107) mmol/L Carbon Dioxide (21-32) mmol/L POC Total CO2 9 L* (24-31) mEq/l Anion Gap (3-11) POC Anion Gap 28.0 H (16-25) mmol/L POC BUN 15 (7-18) mg/dl BUN (7-18) mg/dl Creatinine (0.6-1.2) mg/dl POC Creatinine 1.3 (0.6-1.3) mg/dl Est Cr Clr Drug Dosing ml/min Est GFR ( Amer) Est GFR (Non-Af Amer) BUN/Creatinine Ratio (10-20) Glucose (70-99) mg/dl POC Glucose 306 H (70-99) POC Glucose (other) 378 H* (70-99) mg/dl Estimat Average Glucose mg/dl Hemoglobin A1c (4.5-5.6) % Osmolality (280-300) mOsm/kg Calcium (8.5-10.1) mg/dl POC Ioniz Calcium [place] 1.17 (1.12-1.32) mmol/l Phosphorus (2.5-4.9) mg/dl Magnesium (1.8-2.4) mg/dl Total Bilirubin (0.2-1) mg/dl AST (15-37) U/L ALT (12-78) U/L Alkaline Phosphatase (45-117) U/L Total Creatine Kinase (26-192) U/L CK-MB (CK-2) (0.5-3.6) ng/ml CK/CKMB % Calc (0-3.0) Troponin I (0-0.045) ng/ml Total Protein (6.4-8.2) gm/dl Albumin (3.4-5.0) gm/dl Globulin (2.5-4.0) gm/dl Albumin/Globulin Ratio (0.9-2) Lipase (73-393) U/L Beta-Hydroxybutyric Acd (0.2-2.81) mg/dl HCG, Qual (Negative) Urine Color Urine Appearance (Clear) Urine pH (4.5-7.5) Ur Specific [place] (1.000-1.030) Urine Protein (Negative) Urine Glucose (UA) (Negative) Urine Ketones (Negative) Urine Blood (Negative) Urine Nitrite (Negative) Urine Bilirubin (Negative) Urine Urobilinogen (Negative) Ur Leukocyte Esterase (Negative) Urine WBC (Auto) (0-5) /hpf Urine RBC (Auto) (0-4) /hpf U Hyaline Cast (Auto) (0-5) /lpf U Epithel Cells (Auto) (0-5) /lpf Urine Bacteria (Auto) (Negative) Ur Renal Epithelial Cell (0-5) /lpf Granular Casts (0) /lpf Urine Opiates Screen (Neg) Ur Methadone, Qual (Neg) Urine Barbiturates (Neg) Ur Phencyclidine (PCP) (Neg) U Amphetamin/Meth Scrn (Neg) MDMA (Ecstasy) Screen (Neg) U Benzodiazepines Scrn (Neg) Ur Cocaine Metabolite (Neg) U Marijuana (THC) Screen (Neg) 10/03/18 10/03/18 10/03/18 Range/Units 08:40 08:40 09:16 WBC (4.8-10.8) K/uL RBC (4.2-5.4) M/uL Hgb (12.0-16.0) g/dL POC Hgb (12.0-16.0) g/dl Hct (37-47) % POC Hct (37-47) % MCV (80-100) fL MCH (25-34) pg MCHC (32-36) g/dL RDW Std Deviation (36.4-46.3) fL RDW Coeff of Arnold (11.5-14.5) % Plt Count (130-400) K/uL MPV (7.4-10.4) fL Immature Gran % (Auto) % Neut % (Auto) % Lymph % (Auto) % [place] % (Auto) % Eos % (Auto) % Baso % (Auto) % Immature Gran # (Auto) (0.00-0.02) K/uL Neut # (Auto) (1.4-6.5) K/uL Lymph # (Auto) (1.2-3.4) K/uL [place] # (Auto) (0.11-0.59) K/uL Eos # (Auto) (0-0.5) K/uL Baso # (Auto) (0-0.2) K/uL ABG pH (7.35-7.45) ABG pCO2 (35-46) mmHg ABG pO2 (80-95) mm/Hg ABG HCO3 (19-24) mmol/L ABG O2 Saturation (90-95) % ABG Base Excess (-9-1.8) mEq/L Isiah Test (Pos) VBG pH (7.36-7.41) Barometric Pressure mm/Hg Oxygen Given POC Sodium (135-144) mEq/L Sodium (136-145) mmol/L POC Potassium (3.3-5.0) mEq/L Potassium (3.5-5.1) mmol/L POC Chloride (101-112) mEq/L Chloride (98-107) mmol/L Carbon Dioxide (21-32) mmol/L POC Total CO2 (24-31) mEq/l Anion Gap (3-11) POC Anion Gap (16-25) mmol/L POC BUN (7-18) mg/dl BUN (7-18) mg/dl Creatinine (0.6-1.2) mg/dl POC Creatinine (0.6-1.3) mg/dl Est Cr Clr Drug Dosing ml/min Est GFR ( Amer) Est GFR (Non-Af Amer) BUN/Creatinine Ratio (10-20) Glucose (70-99) mg/dl POC Glucose 274 H (70-99) POC Glucose (other) (70-99) mg/dl Estimat Average Glucose mg/dl Hemoglobin A1c (4.5-5.6) % Osmolality (280-300) mOsm/kg Calcium (8.5-10.1) mg/dl POC Ioniz Calcium [place] (1.12-1.32) mmol/l Phosphorus (2.5-4.9) mg/dl Magnesium (1.8-2.4) mg/dl Total Bilirubin (0.2-1) mg/dl AST (15-37) U/L ALT (12-78) U/L Alkaline Phosphatase (45-117) U/L Total Creatine Kinase (26-192) U/L CK-MB (CK-2) (0.5-3.6) ng/ml CK/CKMB % Calc (0-3.0) Troponin I (0-0.045) ng/ml Total Protein (6.4-8.2) gm/dl Albumin (3.4-5.0) gm/dl Globulin (2.5-4.0) gm/dl Albumin/Globulin Ratio (0.9-2) Lipase (73-393) U/L Beta-Hydroxybutyric Acd (0.2-2.81) mg/dl HCG, Qual (Negative) Urine Color Yellow Urine Appearance Cloudy H (Clear) Urine pH 6.0 (4.5-7.5) Ur Specific [place] > 1.045 H (1.000-1.030) Urine Protein 4+ H (Negative) Urine Glucose (UA) 1+ H (Negative) Urine Ketones 4+ H (Negative) Urine Blood 3+ H (Negative) Urine Nitrite Negative (Negative) Urine Bilirubin Negative (Negative) Urine Urobilinogen Negative (Negative) Ur Leukocyte Esterase Negative (Negative) Urine WBC (Auto) 5-10 H (0-5) /hpf Urine RBC (Auto) 5-10 H (0-4) /hpf U Hyaline Cast (Auto) 10-30 H (0-5) /lpf U Epithel Cells (Auto) >30 H (0-5) /lpf Urine Bacteria (Auto) Negative (Negative) Ur Renal Epithelial Cell 0-5 (0-5) /lpf Granular Casts 1-5 H (0) /lpf Urine Opiates Screen Pos H (Neg) Ur Methadone, Qual Neg (Neg) Urine Barbiturates Neg (Neg) Ur Phencyclidine (PCP) Neg (Neg) U Amphetamin/Meth Scrn Neg (Neg) MDMA (Ecstasy) Screen Neg (Neg) U Benzodiazepines Scrn Neg (Neg) Ur Cocaine Metabolite Neg (Neg) U Marijuana (THC) Screen Neg (Neg) 10/03/18 10/03/18 10/03/18 Range/Units 09:40 09:40 10:37 WBC (4.8-10.8) K/uL RBC (4.2-5.4) M/uL Hgb (12.0-16.0) g/dL POC Hgb (12.0-16.0) g/dl Hct (37-47) % POC Hct (37-47) % MCV (80-100) fL MCH (25-34) pg MCHC (32-36) g/dL RDW Std Deviation (36.4-46.3) fL RDW Coeff of Arnold (11.5-14.5) % Plt Count (130-400) K/uL MPV (7.4-10.4) fL Immature Gran % (Auto) % Neut % (Auto) % Lymph % (Auto) % [place] % (Auto) % Eos % (Auto) % Baso % (Auto) % Immature Gran # (Auto) (0.00-0.02) K/uL Neut # (Auto) (1.4-6.5) K/uL Lymph # (Auto) (1.2-3.4) K/uL [place] # (Auto) (0.11-0.59) K/uL Eos # (Auto) (0-0.5) K/uL Baso # (Auto) (0-0.2) K/uL ABG pH (7.35-7.45) ABG pCO2 (35-46) mmHg ABG pO2 (80-95) mm/Hg ABG HCO3 (19-24) mmol/L ABG O2 Saturation (90-95) % ABG Base Excess (-9-1.8) mEq/L Isiah Test (Pos) VBG pH 7.26 L (7.36-7.41) Barometric Pressure mm/Hg Oxygen Given POC Sodium (135-144) mEq/L Sodium 129 L 133 L (136-145) mmol/L POC Potassium (3.3-5.0) mEq/L Potassium 3.7 3.6 (3.5-5.1) mmol/L POC Chloride (101-112) mEq/L Chloride 101 103 (98-107) mmol/L Carbon Dioxide 13 L 14 L (21-32) mmol/L POC Total CO2 (24-31) mEq/l Anion Gap 15.0 H 16.0 H (3-11) POC Anion Gap (16-25) mmol/L POC BUN (7-18) mg/dl BUN 12 12 (7-18) mg/dl Creatinine 1.24 H D 1.20 (0.6-1.2) mg/dl POC Creatinine (0.6-1.3) mg/dl Est Cr Clr Drug Dosing 55.6 57.4 ml/min Est GFR ( Amer) 66.6 69.3 Est GFR (Non-Af Amer) 57.4 59.8 BUN/Creatinine Ratio 9.8 L 10.1 (10-20) Glucose 278 H 246 H (70-99) mg/dl POC Glucose (70-99) POC Glucose (other) (70-99) mg/dl Estimat Average Glucose mg/dl Hemoglobin A1c (4.5-5.6) % Osmolality (280-300) mOsm/kg Calcium 7.3 L D 7.5 L (8.5-10.1) mg/dl POC Ioniz Calcium [place] (1.12-1.32) mmol/l Phosphorus 1.3 L* 1.1 L* (2.5-4.9) mg/dl Magnesium 1.3 L 1.3 L (1.8-2.4) mg/dl Total Bilirubin (0.2-1) mg/dl AST (15-37) U/L ALT (12-78) U/L Alkaline Phosphatase (45-117) U/L Total Creatine Kinase (26-192) U/L CK-MB (CK-2) (0.5-3.6) ng/ml CK/CKMB % Calc (0-3.0) Troponin I (0-0.045) ng/ml Total Protein (6.4-8.2) gm/dl Albumin (3.4-5.0) gm/dl Globulin (2.5-4.0) gm/dl Albumin/Globulin Ratio (0.9-2) Lipase (73-393) U/L Beta-Hydroxybutyric Acd (0.2-2.81) mg/dl HCG, Qual (Negative) Urine Color Urine Appearance (Clear) Urine pH (4.5-7.5) Ur Specific [place] (1.000-1.030) Urine Protein (Negative) Urine Glucose (UA) (Negative) Urine Ketones (Negative) Urine Blood (Negative) Urine Nitrite (Negative) Urine Bilirubin (Negative) Urine Urobilinogen (Negative) Ur Leukocyte Esterase (Negative) Urine WBC (Auto) (0-5) /hpf Urine RBC (Auto) (0-4) /hpf U Hyaline Cast (Auto) (0-5) /lpf U Epithel Cells (Auto) (0-5) /lpf Urine Bacteria (Auto) (Negative) Ur Renal Epithelial Cell (0-5) /lpf Granular Casts (0) /lpf Urine Opiates Screen (Neg) Ur Methadone, Qual (Neg) Urine Barbiturates (Neg) Ur Phencyclidine (PCP) (Neg) U Amphetamin/Meth Scrn (Neg) MDMA (Ecstasy) Screen (Neg) U Benzodiazepines Scrn (Neg) Ur Cocaine Metabolite (Neg) U Marijuana (THC) Screen (Neg) 10/03/18 10/03/18 10/03/18 Range/Units 10:37 10:51 11:51 WBC (4.8-10.8) K/uL RBC (4.2-5.4) M/uL Hgb (12.0-16.0) g/dL POC Hgb (12.0-16.0) g/dl Hct (37-47) % POC Hct (37-47) % MCV (80-100) fL MCH (25-34) pg MCHC (32-36) g/dL RDW Std Deviation (36.4-46.3) fL RDW Coeff of Arnold (11.5-14.5) % Plt Count (130-400) K/uL MPV (7.4-10.4) fL Immature Gran % (Auto) % Neut % (Auto) % Lymph % (Auto) % [place] % (Auto) % Eos % (Auto) % Baso % (Auto) % Immature Gran # (Auto) (0.00-0.02) K/uL Neut # (Auto) (1.4-6.5) K/uL Lymph # (Auto) (1.2-3.4) K/uL [place] # (Auto) (0.11-0.59) K/uL Eos # (Auto) (0-0.5) K/uL Baso # (Auto) (0-0.2) K/uL ABG pH (7.35-7.45) ABG pCO2 (35-46) mmHg ABG pO2 (80-95) mm/Hg ABG HCO3 (19-24) mmol/L ABG O2 Saturation (90-95) % ABG Base Excess (-9-1.8) mEq/L Isiah Test (Pos) VBG pH 7.29 L (7.36-7.41) Barometric Pressure mm/Hg Oxygen Given POC Sodium (135-144) mEq/L Sodium (136-145) mmol/L POC Potassium (3.3-5.0) mEq/L Potassium (3.5-5.1) mmol/L POC Chloride (101-112) mEq/L Chloride (98-107) mmol/L Carbon Dioxide (21-32) mmol/L POC Total CO2 (24-31) mEq/l Anion Gap (3-11) POC Anion Gap (16-25) mmol/L POC BUN (7-18) mg/dl BUN (7-18) mg/dl Creatinine (0.6-1.2) mg/dl POC Creatinine (0.6-1.3) mg/dl Est Cr Clr Drug Dosing ml/min Est GFR ( Amer) Est GFR (Non-Af Amer) BUN/Creatinine Ratio (10-20) Glucose (70-99) mg/dl POC Glucose 210 H 199 H (70-99) POC Glucose (other) (70-99) mg/dl Estimat Average Glucose mg/dl Hemoglobin A1c (4.5-5.6) % Osmolality (280-300) mOsm/kg Calcium (8.5-10.1) mg/dl POC Ioniz Calcium [place] (1.12-1.32) mmol/l Phosphorus (2.5-4.9) mg/dl Magnesium (1.8-2.4) mg/dl Total Bilirubin (0.2-1) mg/dl AST (15-37) U/L ALT (12-78) U/L Alkaline Phosphatase (45-117) U/L Total Creatine Kinase (26-192) U/L CK-MB (CK-2) (0.5-3.6) ng/ml CK/CKMB % Calc (0-3.0) Troponin I (0-0.045) ng/ml Total Protein (6.4-8.2) gm/dl Albumin (3.4-5.0) gm/dl Globulin (2.5-4.0) gm/dl Albumin/Globulin Ratio (0.9-2) Lipase (73-393) U/L Beta-Hydroxybutyric Acd (0.2-2.81) mg/dl HCG, Qual (Negative) Urine Color Urine Appearance (Clear) Urine pH (4.5-7.5) Ur Specific [place] (1.000-1.030) Urine Protein (Negative) Urine Glucose (UA) (Negative) Urine Ketones (Negative) Urine Blood (Negative) Urine Nitrite (Negative) Urine Bilirubin (Negative) Urine Urobilinogen (Negative) Ur Leukocyte Esterase (Negative) Urine WBC (Auto) (0-5) /hpf Urine RBC (Auto) (0-4) /hpf U Hyaline Cast (Auto) (0-5) /lpf U Epithel Cells (Auto) (0-5) /lpf Urine Bacteria (Auto) (Negative) Ur Renal Epithelial Cell (0-5) /lpf Granular Casts (0) /lpf Urine Opiates Screen (Neg) Ur Methadone, Qual (Neg) Urine Barbiturates (Neg) Ur Phencyclidine (PCP) (Neg) U Amphetamin/Meth Scrn (Neg) MDMA (Ecstasy) Screen (Neg) U Benzodiazepines Scrn (Neg) Ur Cocaine Metabolite (Neg) U Marijuana (THC) Screen (Neg) Imaging Data Radiologist's Impression: Radiology results as stated below per my review and the radiologist's interpretation: CT abd pelvis IV con only CLINICAL HISTORY: 33 years-old Female presenting with Pt c/o diffuse abd pain. TECHNIQUE: Multidetector CT of the abdomen and pelvis was performed after the administration of intravenous contrast. IV contrast: 119 mL of Optiray 320. One or more dose lowering techniques were used consistent with the principles of ALARA (as low as reasonably achievable), including automatic exposure control, mA or kV adjustment to individual patient size, and/or use of iterative reconstruction. COMPARISON: None. CT DOSE (mGy.cm): The estimated cumulative dose is 597.50 mGy.cm. FINDINGS: Hardware Technician topogram: Unremarkable. Lung bases: Normal heart size. No pericardial or pleural effusion. No focal infiltrate or nodule at the lung bases. Liver: Normal morphology. Density consistent with severe hepatic steatosis. No focal lesion. Patent hepatic vasculature. Biliary: No intrahepatic or extrahepatic biliary ductal dilatation. Normal gallbladder. Pancreas: Pancreatic parenchymal enlargement and mild heterogeneous diffuse parenchymal edema. Significant peripancreatic fluid along both the ventral and dorsal aspect of the entire increase. Focal collections noted along the ventral aspect of the tail (series 7 image 145). Inflammatory change also tracks into the lesser sac and root of the small bowel mesentery. Periduodenal fluid. No pancreatic ductal dilatation. Spleen: Normal. Adrenal glands: Normal. Kidneys and ureters: Mild focal cortical thinning of the posterior aspect of the upper pole of the left kidney indicative of reflux nephropathy. Renal parenchyma otherwise normal. No nephrolithiasis or hydronephrosis. Bladder: Normal. Pelvic organs: Degenerating calcified fibroid at the fundus. Ovaries normal. Bowel: Few diverticula noted in the cecum. The appendix is normal. No bowel obstruction. Mild circumferential wall thickening with hyperenhancement of the descending portion of the duodenum with mild distention and smooth tapering at the level of the horizontal portion. Peritoneal cavity: Trace free fluid in the abdomen. Primarily there is retroperitoneal fluid. No free intraperitoneal gas. Lymph nodes: No enlarged lymph nodes in the abdomen or pelvis. Vasculature: Aorta and IVC patent and normal in caliber. Abdominal wall: Diastasis of the rectus abdominis. Postsurgical changes of a Pfannenstiel incision. Musculoskeletal: Normal. IMPRESSION: 1. Interstitial edematous pancreatitis with acute peripancreatic fluid collection along the pancreatic tail. No evidence of necrosis at this time. Exuberant surrounding inflammatory change and secondary reactive changes of the duodenum. 2. No radiopaque gallstones. 3. Severe hepatic steatosis. CT angio chest PE protocol HISTORY: 33 years-old Female with Chest Pain, eval for PE. Acute chest pain with shortness of breath TECHNIQUE: Multiple CTA images of the chest were obtained after the intravenous administration of 119 ml Optiray 320. Coronal and sagittal MIPS were obtained from the axial data set and were submitted for review. All measurements were obtained according to NASCET criteria. A dose lowering technique was utilized adhering to the principles of ALARA. COMPARISON: CT abdomen and pelvis of same day. FINDINGS: CTA: The heart is normal in size without pericardial effusion. The thoracic aortic arch is normal in course and caliber without aneurysm or dissection. The imaged great vessels appear to be patent. The pulmonary arterial tree is opacified to level of the segmental branches. Evaluation of the distal segmental and subsegmental branches is limited secondary to respiratory motion. No focal filling defects identified to suggest pulmonary thromboembolic disease . CT CHEST: Partially imaged a millimeter hypodense nodule about the right thyroid. Thyroid appears mildly heterogeneous. Mild residual thymic tissue about the anterior mediastinum. No adenopathy by CT size criteria. There is no pneumothorax or pleural effusion. Mild subsegmental bibasilar atelectasis. No focal airspace consolidation to suggest pneumonia. The central airways appear to be patent. Severe hepatic steatosis with hepatomegaly . Partially imaged free fluid and edema noted about the upper abdomen. The breast parenchyma and soft tissues appear unremarkable. The bones appear intact. IMPRESSION: 1. No acute intrathoracic abnormality, specifically no evidence of pulmonary thromboembolic disease. 2. No adenopathy or focal airspace consolidation to suggest pneumonia. 3. Severe hepatic steatosis. 4. Partially imaged edema and free fluid of the upper abdomen. Please see separately dictated CT abdomen and pelvis for further details. The above report was generated using voice recognition software. It may contain grammatical, syntax or spelling errors. Electronically signed by: Fei Lancaster M.D. 10/03/2018 8:40 AM ECG Data Attestation: I personally reviewed and interpreted this ECG as follows: Indication: abdominal pain Rate (beats per minute): 121 Rhythm: sinus tachycardia Findings: + T-wave inversion (inferior leads); no ST depression and no ST elevation Blood Pressure Blood Pressure Findings: Normal blood pressure Blood Pressure Disposition: did not require urgent referral MDM Narrative This is a 33-year-old female who presents emergency department complaining of chest and abdominal pain. The patient smells of ketones. Her blood sugar was found to be elevated and her CO2 was found to be 6. Based on this the patient was given a normal saline bolus x2. She was placed on a insulin drip. She was also placed on broad-spectrum antibiotics. An ABG was also obtained. Patient was sent for a CAT scan of the abdomen and pelvis as well as chest. The patient 's laboratory work as well as her CAT scan are concerning for choledocholithiasis and she has an elevation in her lipase as well as her liver enzymes. She was given Dilaudid for her pain in the emergency department as well as Zofran. I did discuss the case with both the resident service coordinator as well as the hospitalist who agreed to admit the patient. Patient and family were in agreement with the treatment plan. Impression & Plan DKA (diabetic ketoacidoses), Choledocholithiasis Critical Care Time I have personally spent greater than 90 minutes of critical care time in the direct management of this patient. This includes bedside care, interpretation of diagnostic studies, and testing, discussion with consultants, patient, and family members, and other required patient management activities. This 90 minutes is in excess of all separately billable procedures. Discharge Plan Visit Data *Final* Discharge Date/Time: 10/03/18 09:54 Chief Complaint: Respiratory Problems Stated Complaint: TROUBLE BREATHING ED Provider: Abdoul Coates Discharge Problem: DKA (diabetic ketoacidoses), Choledocholithiasis Patient Disposition: Admitted As Inpatient Discharge Instructions Interventions: ED Discharge Assessment Last Done: 10/03/18 09:54 The scribe's documentation has been prepared under my direction and personally reviewed by me in its entirety. I confirm that the note above accurately reflects all work, treatment, procedures, and medical decision making performed by me.
[2018-10-03] MEDS: HYDROmorphone INJ 0.5 MG/0.5 ML SYR IV PRN ×3 (12:36→20:14)
[2018-10-03] MEDS ORDERED: PIPERACILLIN/TAZOBACTAM 3.375 GM in DEXTROSE 5% 100 ML IV SCH (14:00)
[2018-10-03] MEDS: INSULIN ASPART 100 UNITS/ML 3 ML PEN SC SCH ×3 (14:07→22:06)
--- NOTE | 2018-10-03 17:16 | Critical Care Consultation ---
Date of Consultation October 03, 2018 Assessment & Plan (1) Hepatic steatosis: Impression: 1. fatty liver. Hopefully not heading towards HELLP syndrome. 2. DKA secondary to lack of insulin. 3. Gestational hypertension, ongoing preeclampsia is most likely with the presence of proteinuria. 4. No evidence of papilledema or seizure disorder. 5. No evidence of infectious process. 6. Hepatic steatosis. 7. Acute pancreatitis in the face of DKA rather than biliary obstruction. 8. Gestational diabetes. Plan: 1. Start the patient on insulin drip. 2. Aggressive replacement of her potassium and phosphorus. 3. No need for bicarb. 4. Repeat labs every 4 hours. 5. Watch for the platelets. 6. Continue Dilaudid for pain. 7. Change IV fluid to normal saline with D5W and 20 mEq of potassium chloride at 250 mL an hour. I would change her IV fluid to half-normal saline with D5W if she start developing hyperchloremic metabolic acidosis. 8. Replace all her electrolytes accordingly. 9. Ice chips are okay, I will start clear liquid was she is able to do so. 10. Core measures for the ICU has been met. 11. Patient is a full code. 12. Hydralazine IV a regular basis for blood pressure control. 13. She may need add on labetalol as well. Case discussed with the staff on rounds and details, critical care time spent with the patient was 60 minutes. History of Present Illness Reason for Consultation: DKA, gestational fatty liver, hellp syndrome. Requesting Physician: Dr. Murray Attending Physician: Emelia Murray, History of Present Illness Dear Dr. Murray: Thank you for the kind referral of Mrs. Cerna to critical care service. This is a 33-year-old female with history of gestational diabetes, she is 2 para 2, she has had similar symptoms also in the previous , on this presentation, the patient was 38-week when she developed preeclampsia has to go for premature delivery. The baby was healthy but underweight according to her at 4 pounds 7 ounces. The patient had the delivery done via C- section. She did not have any evidence of extensive bleeding or unusual bleeding. The patient 4 weeks later was continued to have occasional nausea and vomiting in addition to abdominal pain, she stopped taking the insulin that when she was prescribed. She has not been taking her medications for hypertension or diabetes. The patient presented to the hospital with persistent nausea accompanied with abdominal pain. Workup revealed the patient is in DKA with elevated anion gap as well as delta delta. The patient was noted also to have elevated LFTs as well as lipase. She did not have any diarrhea, her abdominal pain has been persistent, responded to medications. When I interviewed her, she does not appear to be toxically ill. The patient blood pressure was elevated persistently, the rest of her vital signs remained stable. She does have significant dry mucosa, she feels thirsty. She denies any dizziness or near syncopal episode. She has no spotting vaginally as she does not have any vaginal bleed. No fever was reported either. No chest pain but she does have significant back pain radiating to worse her left flank. She did not have any history of tremor, no seizure activity, no postictal or aura symptoms. She does not have any blurry vision. Allergies Allergy/AdvReac Type Severity Reaction Status Date / Time bee venom protein (honey bee) Allergy Unknown ANAPHYLAXIS Verified 10/03/18 07: 05 Home Medications Home Medications Medication Instructions Recorded Confirmed Type albuterol sulfate [Ventolin HFA] 1 puff INHALATION Q6H PRN 08/09/18 10/03/18 History Patient History Medical History Asthma Cardiac murmur CONGENITAL -- BENIGN. 10/09/15 echo: The examination is adequate to evaluate the referral indication. The qualitative LV ejection fraction is 60-64% (normal). The left ventricular diastolic function is normal. No significant valvular disease is present. Depression H/O Anxiety H/O GERD (gastroesophageal reflux disease) R/T Scoliosis MINOR Gestational diabetes Surgical History History of adenoidectomy History of tonsillectomy History of section x 2 Family History Other Adopted Social History Current Living Situation: Spouse and Significant Other Other Information That Helps Us Care for You: No Feels Safe at Home: Yes Safety Concerns: Feels Safe At This Time Smoking Status: Current some day smoker Cigarettes per Day: 2 QOD Hx Alcohol Use: Yes Alcohol type: wine Alcohol Intake Frequency: a few times a week Hx Substance Use: No Beliefs That Will Affect Care: None Preferred Language: Citizen Of [place] 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: Effective Review of Systems Review of system as mentioned above, 14 systems has been reviewed otherwise were unremarkable. Physical Exam 2 Vital Signs (Past 24 Hours): Last Vital Signs Temp 36.8 C 10/03/18 12:26 Pulse 121 H 10/03/18 16:35 Resp 18 10/03/18 16:30 BP 139/101 H 10/03/18 16:00 Pulse Ox 100 10/03/18 16:00 Physical Exam: Vital signs are stable except for the blood pressure that has been persistently elevated, no fever, she is 100% on room air, S1-S2 regular rate and rhythm but tachycardic, distant breath sounds, abdomen is soft and benign, postop. No edema in the periphery. Neurologically she is intact. Funduscopy was done without evidence of papilledema. No skin rash. Results & Data Laboratory Results Her labs were reviewed which showed normal leukocytes, and hematocrit has been increasing likely from hemoconcentration, platelets remains in the range of 155. No left shift or bandemia. ABG showed 7.2 12/02/121/9/98. Repeat pH was 7.29 venous accounting for 7.34 arterial. Her bicarb is improving slowly, the anion gap remains elevated. The patient phosphorus was 1.1 and was repleted. Diagnostic Findings CT of the abdomen reviewed personally which showed clear lungs, hepatic steatosis, edematous pancreatitis. Peripancreatic fluid noted. No evidence of necrosis.
[2018-10-03 17:53] LABS: INR 1.1 (0.9-1.1); Partial Thromboplastin Time 27.7 Seconds (21.0-31.0); Prothrombin Time 10.8 Seconds (9.0-12.0)
[2018-10-03 18:13] LABS: BUN Creatinine Ratio 7.8 (10-20); Calcium 6.8 mg/dl (8.5-10.1); Creatinine Clr Calc Pharmacy 87.8 ml/min; Est GFR (African American) 106.6; Magnesium 1.9 mg/dl (1.8-2.4); Phosphorus 1.5 mg/dl (2.5-4.9); Potassium 3.8 mmol/L (3.5-5.1)
[2018-10-03] MEDS: POTASSIUM CHLORIDE 20 MEQ in D5W AND 1/2NSS 1,000 ML IV SCH ×2 (18:36→22:18)
[2018-10-03 19:52] LABS: Appearance Urine Clear (Clear); Bacteria Urine Automated Negative (Negative); Bilirubin Urine Negative (Negative); Blood Urine Trace (Negative); Color Urine Yellow; Epithelial Cell Urine Auto >30 /lpf (0-5); Glucose Urine UA 3+ (Negative); Ketones Urine 1+ (Negative); Leukocyte Esterase Urine Negative (Negative); Nitrite Urine Negative (Negative); Protein Urine 2+ (Negative); RBC Urine Automated 0-4 /hpf (0-4); Specific Gravity Urine 1.029 (1.000-1.030); Urobilinogen Urine Negative (Negative); pH Urine 5.5 (4.5-7.5)
[2018-10-03 20:00] LABS: Renal Epithelial Cells Urine 0-5 /lpf (0-5)
[2018-10-03 22:23] LABS: BUN Creatinine Ratio 7.5 (10-20); Calcium 6.8 mg/dl (8.5-10.1); Creatinine Clr Calc Pharmacy 106.9 ml/min; Est GFR (African American) 133.5; Est GFR (Non-African American) 115.2; Magnesium 1.7 mg/dl (1.8-2.4); Potassium 3.8 mmol/L (3.5-5.1)
[2018-10-03 22:37] LABS: Phosphorus 1.5 mg/dl (2.5-4.9)
[2018-10-03] MEDS ORDERED: MAGNESIUM SULFATE / D5W 1 GM/100 ML BAG IV ONE (22:45)
[2018-10-04] MEDS: HYDROmorphone INJ 0.5 MG/0.5 ML SYR IV PRN ×3 (00:16→08:01)
[2018-10-04] MEDS: HydrALAZINE HCL 20 MG/ML VIAL IV SCH ×3 (00:17→08:38)
[2018-10-04 01:38] LABS: BUN Creatinine Ratio 6.1 (10-20); Est GFR (African American) 140.6; Est GFR (Non-African American) 121.3; Magnesium 2.1 mg/dl (1.8-2.4); Potassium 3.7 mmol/L (3.5-5.1)
[2018-10-04 01:59] LABS: Phosphorus 1.5 mg/dl (2.5-4.9)
[2018-10-04] MEDS: POTASSIUM CHLORIDE 20 MEQ in D5W AND 1/2NSS 1,000 ML IV SCH ×2 (02:23→06:58)
[2018-10-04] MEDS ORDERED: POTASSIUM PHOS 3 MMOL/1 ML INFUSION IV STA ×3 (02:26→08:11)
[2018-10-04] MEDS ORDERED: POTASSIUM PHOSPHATE 30 MMOL in SODIUM CHLORIDE 0.9% 500 ML IV ONE ×2 (02:30→12:00)
[2018-10-04] MEDS ORDERED: LEVALBUTEROL 1.25MG/0.5ML NEB INH PRN (04:08)
[2018-10-04] MEDS ORDERED: XOPENEX/ATROVENT 1.25mg/0.5MG NEB COMBO NEB PRN (04:08)
[2018-10-04] MEDS ORDERED: IPRATROPIUM BROMIDE NEB SOLN 0.02% 2.5 ML VIAL INH PRN (04:22)
[2018-10-04 05:32] LABS: Basophils # (auto) 0.01 K/uL (0-0.2); Basophils % (auto) 0.2 %; Eosinophils # (auto) 0.04 K/uL (0-0.5); Eosinophils % (auto) 0.6 %; Hematocrit (blood only) 34.8 % (37-47); Immature Granulocytes # (auto) 0.02 K/uL (0.00-0.02); Immature Granulocytes % (auto) 0.3 %; Lymphocytes # (auto) 0.58 K/uL (1.2-3.4); Mean Corpuscular Hgb Conc 34.5 g/dL (32-36); Mean Corpuscular Volume 90.4 fL (80-100); Mean Platelet Volume 11.2 fL (7.4-10.4); Monocytes # (auto) 0.32 K/uL (0.11-0.59); Monocytes % (auto) 4.9 %; Neutrophils # (auto) 5.51 K/uL (1.4-6.5); Platelet Count 102 K/uL (130-400); RDW Coefficient of Variation 15.3 % (11.5-14.5); RDW Standard Deviation 50.1 fL (36.4-46.3); Red Blood Count 3.85 M/uL (4.2-5.4); White Blood Count 6.48 K/uL (4.8-10.8)
[2018-10-04 05:47] LABS: Albumin Level 2.6 gm/dl (3.4-5.0); BUN Creatinine Ratio 5.6 (10-20); Creatinine Clr Calc Pharmacy 147.5 ml/min; Est GFR (African American) 148.4; Est GFR (Non-African American) 128.1; Magnesium 1.8 mg/dl (1.8-2.4); Potassium 3.6 mmol/L (3.5-5.1)
[2018-10-04 05:54] LABS: Bilirubin Direct 0.2 mg/dl (0-0.2); Bilirubin,Total 0.5 mg/dl (0.2-1); Phosphorus 1.8 mg/dl (2.5-4.9); Total Protein 5.9 gm/dl (6.4-8.2)
--- NOTE | 2018-10-04 07:33 | XRay Report ---
XR chest 1V portable HISTORY: Short of breath. COMPARISON: Chest CTA 10/03/2018. FINDINGS: The lungs are clear. Cardiac silhouette is normal in size. No pleural effusions. No pneumot horax. IMPRESSION: No acute process. Electronically signed by: Kadeem Graff M.D. 10/04/2018 7:32 AM
[2018-10-04] MEDS: INSULIN REGULAR 250 UNITS in SODIUM CHLORIDE 0.9% 247.5 ML IV SCH ×2 (07:56→09:16)
[2018-10-04] MEDS: INSULIN ASPART 100 UNITS/ML 3 ML PEN SC SCH ×6 (07:57→23:43)
[2018-10-04] MEDS ORDERED: INSULIN GLARGINE 100 UNIT/ML VIAL SC STA (08:08)
[2018-10-04] MEDS ORDERED: SODIUM CHLORIDE 0.45 % 1,000 ML IV SCH (09:30)
[2018-10-04] MEDS ORDERED: OXYCODONE HCL IR 5 MG TAB (IMMEDIATE RELEASE) PO SCH (10:45)
[2018-10-04] MEDS: POTASSIUM CHLORIDE 20 MEQ in SODIUM CHLORIDE 0.45 % 1,000 ML IV SCH ×2 (10:57→21:00)
--- NOTE | 2018-10-04 11:02 | Critical Care Progress Note ---
Date of Service October 04, 2018 Assessment & Plan (1) Hepatic steatosis: Impression: 1. fatty liver. Hopefully not heading towards HELLP syndrome. 2. DKA secondary to lack of insulin. 3. Gestational hypertension, ongoing preeclampsia is most likely with the presence of proteinuria. 4. No evidence of papilledema or seizure disorder. 5. No evidence of infectious process. 6. Hepatic steatosis. 7. Acute pancreatitis in the face of DKA rather than biliary obstruction. 8. Gestational diabetes. Plan: 1. Start the patient on insulin drip. 2. Aggressive replacement of her potassium and phosphorus. 3. No need for bicarb. 4. Repeat BMP with minor lytes today in the afternoon and in the morning. 5. Her platelets has been stable. 6. Change to oxycodone for pain control. 7. Change IV fluid to half-normal saline with 20 of potassium at 100 mL an hour. 8. Replace all her electrolytes accordingly. 9. Start pured diet with ADA 4 type 1 diabetes. 10. Core measures for the ICU has been met. 11. Patient is a full code. 12. Change hydralazine to as needed. 13. Start hydralazine 25 p.o. 3 times daily. 14. Disposition plan to regular floor. 15. Discussed with the staff, with Dr. Valdez, appreciate all. Critical care time spent with the patient was 35 minutes. Subjective The patient is feeling better, no events overnight, she still have pain mainly in her left flank, urinating, no change in bowel movements. No fever reported. Vital signs are stable. No nausea or vomiting. Physical Exam 2 Vital Signs (Past 24 Hours): Last Vital Signs Temp 36.7 C 10/04/18 04:00 Pulse 105 H 10/04/18 06:00 Resp 23 10/04/18 06:00 BP 125/93 10/04/18 06:00 Pulse Ox 100 10/04/18 06:00 Physical Exam: Vital signs are stable no fever O2 sat is fine, S1-S2 regular rate and rhythm, abdomen soft but tenderness mainly in the left upper quadrant, trace edema, oral mucosa is normal. Neurologically he is intact, no skin rash. Results & Data Laboratory Results The patient bicarb has improved to 18, and anion gap is closed, glucose is better controlled, the rest of her labs are within acceptable limits. Her electrolytes has been repleted. Diagnostic Findings No new imaging.
[2018-10-04] MEDS ORDERED: OXYCODONE HCL IR 5 MG TAB (IMMEDIATE RELEASE) PO PRN (11:03)
[2018-10-04] MEDS ORDERED: HydrALAZINE HCL 20 MG/ML VIAL IV PRN (11:05)
[2018-10-04] MEDS: OXYCODONE HCL IR 5 MG TAB (IMMEDIATE RELEASE) PO PRN ×2 (11:41→23:44)
--- NOTE | 2018-10-04 12:09 | Pharmacy Report ---
Pharmacy Glycemic Short Note 2 - Date of Service October 04, 2018 - Glycemic Short BSG Results (Last 24 hours): 10/03/18 10/03/18 10/03/18 13:01 14:00 15:09 Glucose POC Glucose 246 H 280 H 280 H 10/03/18 10/03/18 10/03/18 16:04 16:56 17:14 Glucose 294 H POC Glucose 278 H 252 H 10/03/18 10/03/18 10/03/18 18:49 20:20 21:03 Glucose POC Glucose 277 H 240 H 242 H 10/03/18 10/03/18 10/03/18 21:13 22:01 23:21 Glucose 237 H POC Glucose 211 H 176 H 10/04/18 10/04/18 10/04/18 00:23 01:15 01:17 Glucose 161 H POC Glucose 147 H 134 H 10/04/18 10/04/18 10/04/18 02:22 03:29 04:17 Glucose POC Glucose 173 H 195 H 163 H 10/04/18 10/04/18 10/04/18 04:50 05:24 06:11 Glucose 172 H POC Glucose 163 H 149 H 10/04/18 10/04/18 10/04/18 07:38 09:47 11:37 Glucose POC Glucose 150 H 101 H 126 H OUTPATIENT ANTIDIABETIC REGIMEN: * N/A * A1c 5.6% ASSESSMENT: 10/04 * AG normalized and Bicab 18 this AM, BSG down to 140's this AM with insulin infusion running 2.1-2.6units/hr (while receiving Dextrose containing IVFs at 250cc/hr) * Will transition to basal/bolus SQ regimen. Will base doses on weight (0.5unit /kg/day) * Maintenance And Utilities Supervisor has changed IVF's to 1/2 NS + 20mEq KCL * A diet will be ordered as well - will need to see if patient tolerates diet, if unable - dextrose may need to be added to IVFs * A1c = 5.6%, but this is reflective of glycemic control over last 2-3 months. Could pt be developing T1DM? BYRON? Perhaps antibody testing would be helpful ( anti-ANGE, islet cell, etc)? 10/03 * Patient admitted to ICU today due to NV, abdominal pain, dehydration, DKA, pancreatitis, possible HELLP syndrome * Patient has a h/o gestational diabetes, in July 2018, no treatment for DM following delivery * Initial labs: Glu 365, Na 127 (corrected Na 131-132), AG 28, Bicarb 9, BOHB 99 , K 3.8, Lipase 27374 * 2 L NS given in ED, 500cc bolus x 1 ordered in ICU. Maint fluid NS + 20mEq KCl ordered * Insulin drip initiated in ED, moderate stress, goal range 150-250 PLAN FOR INPATIENT GLYCEMIC CONTROL: * Lantus 10 units SQ BID - give 5 units if BSG less than 110 * Novolog SQ ACHS + 0000, 0400 tonight * Correction factor: 25mg/dL/unit * Carb ratio: 1 unit per 8 gm CHO consumed PLAN FOR DISCHARGE: * Would recommend insulin on discharge until new onset T1DM R/O.
--- NOTE | 2018-10-04 16:24 | Hospitalist Progress Note ---
Date of Service October 04, 2018 Assessment & Plan (1) DKA (diabetic ketoacidoses): Gestational diabetes persistent into state. Delivery approx 6 weeks ago. Gap closed and she is eating and on basal/bolus insulin. Will plan to continue this going home at discharge. Cont IVF until reliably eating. (2) Pancreatitis: Likely 2/2 DKA, improved clinically after IVF resuscitation and she is eating. (3) Asthma: No acute exacerbation, as needed albuterol (4) Hepatic steatosis: Cont to work with outpatient provider on lifestyle modifications. (5) Back pain: Generalized and associated with L side pain which is reportedly from coughing. Pain appears MSK in nature. Because of severity, she is given oxy, however, would not discharge her on this. (6) Thrombocytopenia: CBC in am. (7) HTN (hypertension): Continues on hydralazine TID for BP control. h/o pre-eclampsia during recent , now with ongoing HTN. Cont hydralazine as outpatient. Check urine for protein. (8) DVT prophylaxis: scds/ambulation Full Code Dispo to home in 1-2 days. Emelia Murray DO [facility] Hospitalist Subjective +tolerating PO denies nausea ambulatory dyspnea is improved some persistent L side and back pain she was also having R side pain but this has resolved since being here. Physical Exam 2 Vital Signs (Past 24 Hours): Last Vital Signs Temp 36.7 C 10/04/18 04:00 Pulse 105 H 10/04/18 06:00 Resp 23 10/04/18 06:00 BP 125/93 10/04/18 06:00 Pulse Ox 100 10/04/18 06:00 CONSTITUTIONAL: WNWD, vitals as above, generally well-appearing EYES: normal conjuctivae, no scleral icterus ENT: MMM RESPIRATORY: clear to auscultation bilaterally, no crackles, rales or wheezes, normal respiratory effort CARDIOVASCULAR: regular rate and rhythm, S1 and 2 heard without murmurs, gallops or rubs, no JVD, no peripheral edema GASTROINTESTINAL: soft, nontender, ND, well-healed horizontal incision in suprapubic area. MUSCULOSKELETAL: strength 5/5 throughout, head is normocephalic and atraumatic , ambulatory SKIN: warm and dry NEUROLOGIC: no gross focal deficits. PSYCHIATRIC: alert cooperative and oriented to person, place and time. Euthymic mood Results & Data Laboratory Results Short CBC 10/04/18 Range/Units 04:50 WBC 6.48 (4.8-10.8) K/uL Hgb 12.0 D (12.0-16.0) g/dL Hct 34.8 L (37-47) % Plt Count 102 L (130-400) K/uL BMP 10/04/18 04:50 Sodium 136 Potassium 3.6 Chloride 109 H Carbon Dioxide 18 L BUN 3 L Creatinine 0.50 L Glucose 172 H Calcium 7.0 L Liver Function 10/04/18 Range/Units 04:50 Total Bilirubin 0.5 D (0.2-1) mg/dl Direct Bilirubin 0.2 (0-0.2) mg/dl AST 87 H (15-37) U/L ALT 99 H (12-78) U/L Alkaline Phosphatase 47 (45-117) U/L Albumin 2.6 L (3.4-5.0) gm/dl Medications Administered Current Inpatient Medications Acetaminophen (Tylenol) 650 mg PO Q4H PRN PRN Reason: Pain Stop: 11/03/18 10:41 Last Admin: 10/05/18 04:21 Dose: 650 mg Albuterol (Ventolin Hfa) 1 puffs INH Q6H PRN PRN Reason: Shortness Of Breath Stop: 11/02/18 10:57 Dextrose (Dextrose 50%) 25 - 50 ml IV UD PRN; Protocol PRN Reason: Hypoglycemia Protocol Stop: 11/02/18 10:23 Glucagon (Glucagen) 1 mg IM UD PRN; Protocol PRN Reason: Hypoglycemia Protocol Stop: 11/02/18 10:23 Glucose (Glucose 40%) 15 - 30 gm PO UD PRN; Protocol PRN Reason: Hypoglycemia Protocol Stop: 11/02/18 10:23 Glucose (Dex4 Glucose) 4 - 8 tabs PO UD PRN; Protocol PRN Reason: Hypoglycemia Protocol Stop: 11/02/18 10:23 Hydralazine HCl (Apresoline) 25 mg PO TID GEOVANNA Stop: 11/03/18 13:59 Last Admin: 10/04/18 21:02 Dose: 25 mg Potassium Chloride 20 meq/ (Sodium Chloride) 1,010 mls @ 100 mls/hr IV .Q10H6M GEOVANNA Stop: 11/03/18 10:59 Last Admin: 10/04/18 21:00 Dose: 100 mls/hr Insulin Aspart (Novolog Flexpen) 0 units SC ACHS [facility] Stop: 11/03/18 11:29 Last Admin: 10/04/18 20:55 Dose: Not Given Insulin Aspart (Novolog Flexpen) 0 units SC TODAY@0000,0400 [facility] Stop: 11/04/18 00:00 Last Admin: 10/05/18 04:54 Dose: Not Given Insulin Glargine (Lantus) 0 units SC BID [facility]; Protocol Stop: 11/03/18 20:59 Last Admin: 10/04/18 21:01 Dose: 10 units Ipratropium [place] (Atrovent 0.02% 0.5mg/2.5ml) 0.5 mg INH Q4H PRN PRN Reason: SOB/WHEEZE Stop: 11/03/18 04:21 Last Admin: 10/04/18 04:32 Dose: 0.5 mg Levalbuterol HCl (Xopenex 1.25mg/0.5ml Neb) 1.25 mg INH Q4H PRN PRN Reason: sob wheeze Stop: 11/03/18 04:14 Last Admin: 10/04/18 04:32 Dose: 1.25 mg Miscellaneous (Carbohydrates For Hypoglycemia) 15 - 30 gm PO UD PRN PRN Reason: Hypoglycemia Treatment Stop: 11/02/18 10:23 Miscellaneous Information (Consult Glycemic Management Pharmacy) 1 ea N/A UD PRN PRN Reason: Consult Stop: 11/02/18 10:22 Oxycodone HCl (Roxicodone Immediate Rel) 5 mg PO Q6 PRN PRN Reason: Moderate Pain Stop: 10/18/18 10:37 Last Admin: 10/04/18 23:44 Dose: 5 mg _ (1) DKA (diabetic ketoacidoses) Diabetes mellitus complication detail: without coma Diabetes mellitus type: other specified (including AGUSTIN) Qualified Code(s): E13.10 - Other specified diabetes mellitus with ketoacidosis without coma (2) Pancreatitis Acute pancreatitis complication: unspecified Chronicity: acute Pancreatitis type: unspecified pancreatitis type Qualified Code(s): K85.90 - Acute pancreatitis without necrosis or infection, unspecified (3) Asthma Asthma complication type: uncomplicated Asthma persistence: persistent Asthma severity: moderate Qualified Code(s): J45.40 - Moderate persistent asthma, uncomplicated
[2018-10-04] MEDS: ACETAMINOPHEN 325 MG TAB PO PRN (16:46)
[2018-10-04] MEDS ORDERED: INSULIN GLARGINE 100 UNIT/ML VIAL SC SCH (21:00)
[2018-10-04] MEDS: INSULIN GLARGINE 100 UNIT/ML VIAL SC SCH (21:01)
[2018-10-05] MEDS: ACETAMINOPHEN 325 MG TAB PO PRN ×3 (04:21→17:26)
[2018-10-05] MEDS: INSULIN ASPART 100 UNITS/ML 3 ML PEN SC SCH ×5 (04:54→21:45)
[2018-10-05 06:02] LABS: Hematocrit (blood only) 32.6 % (37-47); Hemoglobin 11.1 g/dL (12.0-16.0); Mean Corpuscular Volume 91.1 fL (80-100); RDW Coefficient of Variation 15.1 % (11.5-14.5); RDW Standard Deviation 50.5 fL (36.4-46.3); Red Blood Count 3.58 M/uL (4.2-5.4); White Blood Count 5.39 K/uL (4.8-10.8)
[2018-10-05 06:39] LABS: Alanine Aminotransferase 77 U/L (12-78); Albumin Level 2.4 gm/dl (3.4-5.0); Aspartate Aminotransferase 62 U/L (15-37); BUN Creatinine Ratio 5.2 (10-20); Blood Urea Nitrogen 2 mg/dl (7-18); Calcium 7.7 mg/dl (8.5-10.1); Carbon Dioxide 23 mmol/L (21-32); Chloride 105 mmol/L (98-107); Creatinine Clr Calc Pharmacy 252.1 ml/min; Est GFR (African American) > 150.0; Est GFR (Non-African American) > 150.0; Glucose 109 mg/dl (70-99); Magnesium 1.5 mg/dl (1.8-2.4); Potassium 3.4 mmol/L (3.5-5.1); Sodium 135 mmol/L (136-145)
[2018-10-05 06:42] LABS: Albumin Globulin Ratio 0.7 (0.9-2); Alkaline Phosphatase 52 U/L (45-117); Bilirubin,Total 0.8 mg/dl (0.2-1); Globulin 3.3 gm/dl (2.5-4.0); Phosphorus 2.2 mg/dl (2.5-4.9); Total Protein 5.7 gm/dl (6.4-8.2)
[2018-10-05 06:53] LABS: Mean Platelet Volume 10.6 fL (7.4-10.4); Platelet Count 94 K/uL (130-400); Platelet Estimate Decreased (Normal)
[2018-10-05 07:20] LABS: Creatinine Urine Random 21.5 mg/dl; Total Protein Urine Random 19.5 mg/dl (0-11.9)
[2018-10-05] MEDS: POTASSIUM CHLORIDE 20 MEQ in SODIUM CHLORIDE 0.45 % 1,000 ML IV SCH ×2 (07:27→17:23)
[2018-10-05 07:32] LABS: Hydrocodone Urine NEGATIVE NG/ML (CUTOFF=50); Hydromor Urine 561 NG/ML (CUTOFF=50); Morphine Urine NEGATIVE NG/ML (CUTOFF=50); Norhydrocodone Conf Ur NEGATIVE NG/ML (CUTOFF=50); Noroxycodone Urine NEGATIVE NG/ML (CUTOFF=50); Oxycodone Urine NEGATIVE NG/ML (CUTOFF=50)
[2018-10-05] MEDS: OXYCODONE HCL IR 5 MG TAB (IMMEDIATE RELEASE) PO PRN ×3 (07:32→21:44)
[2018-10-05] MEDS: POT PHOSPHATE MONOBASIC W/ SOD TAB PO SCH ×4 (08:35→21:49)
[2018-10-05] MEDS: MAGNESIUM SULFATE / D5W 1 GM/100 ML BAG IV SCH ×4 (08:35→11:46)
[2018-10-05] MEDS: INSULIN GLARGINE 100 UNIT/ML VIAL SC SCH ×2 (08:36→21:50)
--- NOTE | 2018-10-05 16:38 | Hospitalist Progress Note ---
Date of Service October 05, 2018 Assessment & Plan (1) DKA (diabetic ketoacidoses): Resolved, gap is closed. Cont basal/bolus insulin. Currently not eating much as she still has some persistent epigastric abdominal pain related to pancreatitis. Increased IVF rate and cont supportive care. Plan to discharge on MDD insulin as she still has these scripts at home. (2) Pancreatitis: Likely 2/2 DKA, improved clinically after IVF resuscitation and she is eating but not much. Some nausea today. Lipase trending down. Zofran PRN. Increase IVF rate overnight. (3) Asthma: No acute exacerbation, as needed albuterol (4) Hepatic steatosis: Cont to work with outpatient provider on lifestyle modifications. (5) Back pain: Generalized and associated with L side pain which is reportedly from coughing. Pain appears MSK in nature and is reported consistent with her chronic back pain. Because of severity, she is given oxy, however, would not discharge her on this. Cannot give NSAIDs in setting of thrombocytopenia, but can when she recovers. Cont outpatient chiropractic manipulation. (6) Thrombocytopenia: Possibly related to recent pancreatitis. Trend in am. (7) HTN (hypertension): Continues on hydralazine TID for BP control and is at goal. h/o pre- eclampsia during recent , now with ongoing HTN. +proteinuria present. Contacted Nephrology to see her/set up follow-up as outpatient. (8) Elevated LFTs: Improved with resolution of pancreatitis. (9) DVT prophylaxis: scds/ambulation Full Code Dispo to home in 1-2 days once patient is eating reliably. Emelia Murray DO [facility] Hospitalist Subjective some persistent back pain and abdominal pain-improving +nausea +poor appetite otherwise asymptomatic. Physical Exam 2 Vital Signs (Past 24 Hours): Last Vital Signs Temp 36.9 C 10/05/18 16:26 Pulse 94 H 10/05/18 16:26 Resp 17 10/05/18 16:26 BP 139/95 10/05/18 16:26 Pulse Ox 99 10/05/18 16:26 CONSTITUTIONAL: WNWD, vitals as above, generally well-appearing EYES: normal conjuctivae, no scleral icterus ENT: MMM RESPIRATORY: clear to auscultation bilaterally, no crackles, rales or wheezes, normal respiratory effort CARDIOVASCULAR: regular rate and rhythm, S1 and 2 heard without murmurs, gallops or rubs, no JVD, no peripheral edema GASTROINTESTINAL: soft, TTP in epigastric region, ND, well-healed horizontal incision in suprapubic area. MUSCULOSKELETAL: strength 5/5 throughout, head is normocephalic and atraumatic , ambulatory SKIN: warm and dry NEUROLOGIC: no gross focal deficits. PSYCHIATRIC: alert cooperative and oriented to person, place and time. Euthymic mood Results & Data Laboratory Results Short CBC 10/05/18 Range/Units 05:47 WBC 5.39 (4.8-10.8) K/uL Hgb 11.1 L (12.0-16.0) g/dL Hct 32.6 L (37-47) % Plt Count 94 L (130-400) K/uL BMP 10/05/18 05:47 Sodium 135 L Potassium 3.4 L Chloride 105 Carbon Dioxide 23 BUN 2 L Creatinine 0.30 L Glucose 109 H Calcium 7.7 L Liver Function 10/05/18 Range/Units 05:47 Total Bilirubin 0.8 (0.2-1) mg/dl AST 62 H (15-37) U/L ALT 77 (12-78) U/L Alkaline Phosphatase 52 (45-117) U/L Albumin 2.4 L (3.4-5.0) gm/dl _ (1) DKA (diabetic ketoacidoses) Diabetes mellitus complication detail: without coma Diabetes mellitus type: other specified (including AGUSTIN) Qualified Code(s): E13.10 - Other specified diabetes mellitus with ketoacidosis without coma (2) Pancreatitis Acute pancreatitis complication: unspecified Chronicity: acute Pancreatitis type: unspecified pancreatitis type Qualified Code(s): K85.90 - Acute pancreatitis without necrosis or infection, unspecified (3) Asthma Asthma complication type: uncomplicated Asthma persistence: persistent Asthma severity: moderate Qualified Code(s): J45.40 - Moderate persistent asthma, uncomplicated
--- NOTE | 2018-10-05 18:21 | Nephrology Consultation ---
Date of Consultation October 05, 2018 Assessment & Plan (1) Proteinuria: proteinuria noted peripartum; -will repeat uacm now that we are further out from DKA presentation and all volume status complications it represents >>no nsaids now or after d/c; did discuss this w/ pt --needs to f/u in CKD clinic w/ me or one of my partners in 4-6 wks after d/c Present on Admission?: Yes (2) HTN (hypertension): -would change hyralazine tid to nifedipine 30 mg daily and use hydralazine prn for sbp > 150 IF she is looking likely to leave her on BP meds; BP a bit elevated currently but also has had massive IVF/some anxiety in hospital; goal is to have bp med regimen she can do as OP if needed -she has low K, low Na >> to be expected with changes after tx for DKA and for pancreatitis -- getting repletion -daily bmp w/ mag -nsaid avoidance and halving EtOH use and low Na diet advised Present on Admission?: Yes (3) Thrombocytopenia: daily cbc adn bmp; no heparin; per medicine team Present on Admission?: No (4) Back pain: until post hypertension, proteinuria more fully investigated, no nsaids to manage pain; pls work w/ pt to come up w/ other back pain mgt strategies Present on Admission?: Yes History of Present Illness Reason for Consultation: post/rip HTN, proteinuria Requesting Physician: dr Murray Attending Physician: Emelia Murray, DO History of Present Illness 33 y/o F whom I'm asked to see regarding proteinuria and HTN present 7 wks after C section done d/t preeclampsia, gestational DM, IUGR. Other PMH includes chronic back pain, asthma, GERD. Note no prior HTN though did on prior labs from 2015 onward have intermittent dipstick proteinuria. This is her second > had gestational DM but no bp issues or proteinuria/ preeclampsia she states w/ first. Admitted here 08/10-08/14 for c section for above. had 7 day course of macrobid last month for UTI sx. Came in on 10/03 w/ 4 days of n/v/abd pain, inability to tolerate po > found to have DKA and pancreatitis. Had been taking ibuprofen 600 mg prn pain -- about 6-8 pills all told though. Also drinking 2 glasses wine, 3-4 times weekly. Not breast feeding. spot prot/creat ratio shows 900 mg urine; was 1100 on spot ratio in EPIC 08/08/18. no hx of stones; FH is unknown as she is adopted. not on any bp meds prior to presentation. Allergies Allergy/AdvReac Type Severity Reaction Status Date / Time bee venom protein (honey bee) Allergy Unknown ANAPHYLAXIS Verified 10/03/18 07: 05 Home Medications Home Medications Medication Instructions Recorded Confirmed Type albuterol sulfate [Ventolin HFA] 1 puff INHALATION Q6H PRN 08/09/18 10/03/18 History Patient History Medical History Asthma Cardiac murmur CONGENITAL -- BENIGN. 10/09/15 echo: The examination is adequate to evaluate the referral indication. The qualitative LV ejection fraction is 60-64% (normal). The left ventricular diastolic function is normal. No significant valvular disease is present. Depression H/O Anxiety H/O GERD (gastroesophageal reflux disease) R/T Scoliosis MINOR Gestational diabetes Surgical History History of adenoidectomy History of tonsillectomy History of section x 2 Family History Other Adopted Social History Current Living Situation: Spouse and Significant Other Other Information That Helps Us Care for You: No Feels Safe at Home: Yes Safety Concerns: Feels Safe At This Time Smoking Status: Current some day smoker Cigarettes per Day: 2 QOD Hx Alcohol Use: Yes Alcohol type: wine Alcohol Intake Frequency: a few times a week Hx Substance Use: No Beliefs That Will Affect Care: None 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: Effective Review of Systems Constitutional: + fatigue and + anorexia; no fever and no body aches Eyes: no worsening vision Ear, Nose, Mouth, Throat: + dry mouth Respiratory: no cough and no dyspnea Cardiovascular: no chest pain, no palpitations and no edema Gastrointestinal: as per Subjective / HPI, + abdominal pain, + nausea and + vomiting Genitourinary (Female): no dysuria, no difficulty urinating, no urinary frequency, no urinary hesitancy and no urinary urgency Musculoskeletal: + back pain (chronic stable) Endocrine: + fatigue Hematologic / Lymphatic: no easy bleeding Physical Exam 2 Vital Signs (Past 24 Hours): Last Vital Signs Temp 36.9 C 10/05/18 16:26 Pulse 94 H 10/05/18 16:26 Resp 17 10/05/18 16:26 BP 139/95 10/05/18 16:26 Pulse Ox 99 10/05/18 16:26 Constitutional: well developed and well nourished on RA maneuvers readily for exam Eyes: EOM intact bilaterally ENMT: Ears: no external ear abnormality Nose: no external nose abnormality Mouth: + dry oral mucous membranes Neck: no nuchal rigidity Respiratory: normal respiratory effort Auscultation: + diminished lung sounds Cardiovascular: RRR, no murmur, no edema Gastrointestinal (Abdomen): Inspection/Auscultation: normal bowel sounds Percussion/Palpation: + abdomen tender (epigastric) and abdomen soft; no guarding and abdomen not rigid Musculoskeletal: Extremities: strength 5/5 throughout Skin: no rashes, warm and dry Neurologic: leal, fluent speech, no tremor Psychiatric: A+Ox3, euthymic affect Results & Data Laboratory Results Abnormal lab results 10/03/18 10/04/18 10/04/18 Range/Units 08:40 20:49 23:41 RBC (4.2-5.4) M/uL Hgb (12.0-16.0) g/dL Hct (37-47) % RDW Std Deviation (36.4-46.3) fL RDW Coeff of Arnold (11.5-14.5) % Plt Count (130-400) K/uL MPV (7.4-10.4) fL Sodium (136-145) mmol/L Potassium (3.5-5.1) mmol/L BUN (7-18) mg/dl Creatinine (0.6-1.2) mg/dl BUN/Creatinine Ratio (10-20) Glucose (70-99) mg/dl POC Glucose 113 H 126 H (70-99) Calcium (8.5-10.1) mg/dl Phosphorus (2.5-4.9) mg/dl Magnesium (1.8-2.4) mg/dl AST (15-37) U/L Total Protein (6.4-8.2) gm/dl Albumin (3.4-5.0) gm/dl Albumin/Globulin Ratio (0.9-2) Lipase (73-393) U/L U Random Total Protein (0-11.9) mg/dl Protein/Creatinin Ratio (0-0.2) Ur Hydromorphone (GC/MS) 561 A (CUTOFF=50) NG/ML 10/05/18 10/05/18 10/05/18 Range/Units 03:44 05:47 05:47 RBC 3.58 L (4.2-5.4) M/uL Hgb 11.1 L (12.0-16.0) g/dL Hct 32.6 L (37-47) % RDW Std Deviation 50.5 H (36.4-46.3) fL RDW Coeff of Arnold 15.1 H (11.5-14.5) % Plt Count 94 L (130-400) K/uL MPV 10.6 H (7.4-10.4) fL Sodium 135 L (136-145) mmol/L Potassium 3.4 L (3.5-5.1) mmol/L BUN 2 L (7-18) mg/dl Creatinine 0.30 L (0.6-1.2) mg/dl BUN/Creatinine Ratio 5.2 L (10-20) Glucose 109 H (70-99) mg/dl POC Glucose 108 H (70-99) Calcium 7.7 L (8.5-10.1) mg/dl Phosphorus 2.2 L (2.5-4.9) mg/dl Magnesium 1.5 L (1.8-2.4) mg/dl AST 62 H (15-37) U/L Total Protein 5.7 L (6.4-8.2) gm/dl Albumin 2.4 L (3.4-5.0) gm/dl Albumin/Globulin Ratio 0.7 L (0.9-2) Lipase 2795 H (73-393) U/L U Random Total Protein (0-11.9) mg/dl Protein/Creatinin Ratio (0-0.2) Ur Hydromorphone (GC/MS) (CUTOFF=50) NG/ML 10/05/18 10/05/18 10/05/18 Range/Units 06:36 11:57 16:59 RBC (4.2-5.4) M/uL Hgb (12.0-16.0) g/dL Hct (37-47) % RDW Std Deviation (36.4-46.3) fL RDW Coeff of Arnold (11.5-14.5) % Plt Count (130-400) K/uL MPV (7.4-10.4) fL Sodium (136-145) mmol/L Potassium (3.5-5.1) mmol/L BUN (7-18) mg/dl Creatinine (0.6-1.2) mg/dl BUN/Creatinine Ratio (10-20) Glucose (70-99) mg/dl POC Glucose 118 H 132 H (70-99) Calcium (8.5-10.1) mg/dl Phosphorus (2.5-4.9) mg/dl Magnesium (1.8-2.4) mg/dl AST (15-37) U/L Total Protein (6.4-8.2) gm/dl Albumin (3.4-5.0) gm/dl Albumin/Globulin Ratio (0.9-2) Lipase (73-393) U/L U Random Total Protein 19.5 H (0-11.9) mg/dl Protein/Creatinin Ratio 0.9 H (0-0.2) Ur Hydromorphone (GC/MS) (CUTOFF=50) NG/ML Diagnostic Findings CT abd/pelvis 10/03/18 CT abd pelvis IV con only CLINICAL HISTORY: 33 years-old Female presenting with Pt c/o diffuse abd pain. TECHNIQUE: Multidetector CT of the abdomen and pelvis was performed after the administration of intravenous contrast. IV contrast: 119 mL of Optiray 320. One or more dose lowering techniques were used consistent with the principles of ALARA (as low as reasonably achievable), including automatic exposure control, mA or kV adjustment to individual patient size, and/or use of iterative reconstruction. COMPARISON: None. CT DOSE (mGy.cm): The estimated cumulative dose is 597.50 mGy.cm. FINDINGS: [employer] Manager topogram: Unremarkable. Lung bases: Normal heart size. No pericardial or pleural effusion. No focal infiltrate or nodule at the lung bases. Liver: Normal morphology. Density consistent with severe hepatic steatosis. No focal lesion. Patent hepatic vasculature. Biliary: No intrahepatic or extrahepatic biliary ductal dilatation. Normal gallbladder. Pancreas: Pancreatic parenchymal enlargement and mild heterogeneous diffuse parenchymal edema. Significant peripancreatic fluid along both the ventral and dorsal aspect of the entire increase. Focal collections noted along the ventral aspect of the tail (series 7 image 145). Inflammatory change also tracks into the lesser sac and root of the small bowel mesentery. Periduodenal fluid. No pancreatic ductal dilatation. Spleen: Normal. Adrenal glands: Normal. Kidneys and ureters: Mild focal cortical thinning of the posterior aspect of the upper pole of the left kidney indicative of reflux nephropathy. Renal parenchyma otherwise normal. No nephrolithiasis or hydronephrosis. Bladder: Normal. Pelvic organs: Degenerating calcified fibroid at the fundus. Ovaries normal. Bowel: Few diverticula noted in the cecum. The appendix is normal. No bowel obstruction. Mild circumferential wall thickening with hyperenhancement of the descending portion of the duodenum with mild distention and smooth tapering at the level of the horizontal portion. Peritoneal cavity: Trace free fluid in the abdomen. Primarily there is retroperitoneal fluid. No free intraperitoneal gas. Lymph nodes: No enlarged lymph nodes in the abdomen or pelvis. Vasculature: Aorta and IVC patent and normal in caliber. Abdominal wall: Diastasis of the rectus abdominis. Postsurgical changes of a Pfannenstiel incision. Musculoskeletal: Normal. IMPRESSION: 1. Interstitial edematous pancreatitis with acute peripancreatic fluid collection along the pancreatic tail. No evidence of necrosis at this time. Exuberant surrounding inflammatory change and secondary reactive changes of the duodenum. 2. No radiopaque gallstones. 3. Severe hepatic steatosis. _ (1) Back pain Chronicity: chronic (2) Proteinuria Proteinuria type: unspecified Qualified Code(s): R80.9 - Proteinuria, unspecified (3) HTN (hypertension) Hypertension type: unspecified Qualified Code(s): I10 - Essential (primary) hypertension
[2018-10-05] MEDS: ONDANSETRON INJ 2 MG/ML 2 ML VIAL IV PRN (21:57)
[2018-10-06] MEDS: POTASSIUM CHLORIDE 20 MEQ in SODIUM CHLORIDE 0.45 % 1,000 ML IV SCH (00:22)
[2018-10-06] MEDS: INSULIN ASPART 100 UNITS/ML 3 ML PEN SC SCH ×6 (01:49→21:14)
[2018-10-06] MEDS ORDERED: SODIUM CHLOR 0.45% + 20MEQ KCL 20 MEQ/1,000 ML BAG IV SCH (03:24)
[2018-10-06] MEDS: OXYCODONE HCL IR 5 MG TAB (IMMEDIATE RELEASE) PO PRN (04:51)
[2018-10-06] MEDS: INSULIN GLARGINE 100 UNIT/ML VIAL SC SCH ×2 (08:15→20:36)
[2018-10-06] MEDS: NIFEdipine EXTENDED REL 30 MG TABCR PO SCH (09:29)
[2018-10-06] MEDS: ACETAMINOPHEN 325 MG TAB PO PRN ×2 (09:58→16:34)
[2018-10-06 10:22] LABS: Hematocrit (blood only) 34.6 % (37-47); Hemoglobin 11.7 g/dL (12.0-16.0); Mean Corpuscular Hgb Conc 33.8 g/dL (32-36); Mean Corpuscular Volume 91.5 fL (80-100); Mean Platelet Volume 10.2 fL (7.4-10.4); Platelet Count 151 K/uL (130-400); RDW Coefficient of Variation 14.8 % (11.5-14.5); RDW Standard Deviation 49.9 fL (36.4-46.3); Red Blood Count 3.78 M/uL (4.2-5.4); White Blood Count 6.23 K/uL (4.8-10.8)
[2018-10-06] MEDS ORDERED: TRAMADOL HCL 50 MG TABLET PO STA (10:46)
--- NOTE | 2018-10-06 10:48 | Hospitalist Progress Note ---
Date of Service October 06, 2018 Assessment & Plan (1) DKA (diabetic ketoacidoses): Resolved, gap is closed. Cont basal/bolus insulin. Tolerating more food today. Stopped IVF. Plan to discharge on MDD insulin as she still has these scripts at home. (2) DMII (diabetes mellitus, type 2): (3) Pancreatitis: Likely 2/2 DKA, improved clinically after IVF resuscitation and appetite is improved. Cont supportive care. (4) Asthma: No acute exacerbation, as needed albuterol (5) Hepatic steatosis: Cont to work with outpatient provider on lifestyle modifications. (6) Back pain: Generalized and associated with L side pain which is reportedly from coughing. Pain appears MSK in nature and is reported consistent with her chronic back pain. Because of severity, she is given oxy, however, would not discharge her on this. Cannot give NSAIDs in setting of thrombocytopenia and recent preeclampsia with persistent proteinuria. Cont outpatient chiropractic manipulation and Tylenol PRN or Tramadol PRN. Oxy was stopped. (7) Thrombocytopenia: likely relatd to acute pancreatitis, resolved. (8) HTN (hypertension): Per Nephrology she was switched to nifedipine 30mg PO daily. Hydralazine continued PRN SBP>150. Outpatient Nephro followup in 4 weeks. (9) Elevated LFTs: Improved with resolution of pancreatitis. (10) DVT prophylaxis: scds/ambulation Full Code Dispo to home in 1-2 days once patient is eating reliably. Emelia Murray DO [facility] Hospitalist Subjective persistent L sided and epigastric pain that is improved. persistent chronic back pain eating more today some nausea overnight without vomiting. ambulatory Physical Exam 2 Vital Signs (Past 24 Hours): Last Vital Signs Temp 37.4 C 10/06/18 07:30 Pulse 91 H 10/06/18 08:00 Resp 18 10/06/18 07:30 BP 141/96 H 10/06/18 07:30 Pulse Ox 97 10/06/18 07:30 CONSTITUTIONAL: WNWD, vitals as above, generally well-appearing EYES: normal conjuctivae, no scleral icterus ENT: MMM RESPIRATORY: clear to auscultation bilaterally, no crackles, rales or wheezes, normal respiratory effort CARDIOVASCULAR: regular rate and rhythm, S1 and 2 heard without murmurs, gallops or rubs, no JVD, no peripheral edema GASTROINTESTINAL: soft, TTP in epigastric region that is improved since yesterday, ND, well-healed horizontal incision in suprapubic area. MUSCULOSKELETAL: strength 5/5 throughout, head is normocephalic and atraumatic , ambulatory SKIN: warm and dry NEUROLOGIC: no gross focal deficits. PSYCHIATRIC: alert cooperative and oriented to person, place and time. Euthymic mood Results & Data Laboratory Results Short CBC 10/06/18 Range/Units 10:09 WBC 6.23 (4.8-10.8) K/uL Hgb 11.7 L (12.0-16.0) g/dL Hct 34.6 L (37-47) % Plt Count 151 D (130-400) K/uL BMP 10/06/18 10:09 Sodium 132 L Potassium 3.5 Chloride 99 Carbon Dioxide 27 BUN 4 L Creatinine 0.43 L Glucose 164 H Calcium 8.5 Medications Administered Current Inpatient Medications Acetaminophen (Tylenol) 650 mg PO Q4H PRN PRN Reason: Pain Stop: 11/03/18 10:41 Last Admin: 10/06/18 16:34 Dose: 650 mg Albuterol (Ventolin Hfa) 1 puffs INH Q6H PRN PRN Reason: Shortness Of Breath Stop: 11/02/18 10:57 Dextrose (Dextrose 50%) 25 - 50 ml IV UD PRN; Protocol PRN Reason: Hypoglycemia Protocol Stop: 11/02/18 10:23 Glucagon (Glucagen) 1 mg IM UD PRN; Protocol PRN Reason: Hypoglycemia Protocol Stop: 11/02/18 10:23 Glucose (Glucose 40%) 15 - 30 gm PO UD PRN; Protocol PRN Reason: Hypoglycemia Protocol Stop: 11/02/18 10:23 Glucose (Dex4 Glucose) 4 - 8 tabs PO UD PRN; Protocol PRN Reason: Hypoglycemia Protocol Stop: 11/02/18 10:23 Hydralazine HCl (Apresoline) 25 mg PO TID PRN PRN Reason: SBP>150 Stop: 11/05/18 08:25 Insulin Aspart (Novolog Flexpen) 0 units SC ACHS [facility] Stop: 11/03/18 11:29 Last Admin: 10/06/18 18:14 Dose: Not Given Insulin Glargine (Lantus) 6 units SC BID [facility] Stop: 11/05/18 20:59 Ipratropium [place] (Atrovent 0.02% 0.5mg/2.5ml) 0.5 mg INH Q4H PRN PRN Reason: SOB/WHEEZE Stop: 11/03/18 04:21 Last Admin: 10/04/18 04:32 Dose: 0.5 mg Levalbuterol HCl (Xopenex 1.25mg/0.5ml Neb) 1.25 mg INH Q4H PRN PRN Reason: sob wheeze Stop: 11/03/18 04:14 Last Admin: 10/04/18 04:32 Dose: 1.25 mg Miscellaneous (Carbohydrates For Hypoglycemia) 15 - 30 gm PO UD PRN PRN Reason: Hypoglycemia Treatment Stop: 11/02/18 10:23 Miscellaneous Information (Consult Glycemic Management Pharmacy) 1 ea N/A UD PRN PRN Reason: Consult Stop: 11/02/18 10:22 Nifedipine (Procardia Xl) 30 mg PO DAILY [facility]ANNA Stop: 11/05/18 08:59 Last Admin: 10/06/18 09:29 Dose: 30 mg Ondansetron HCl (Zofran) 4 mg IV Q8H PRN PRN Reason: Nausea Stop: 11/04/18 18:41 Last Admin: 10/06/18 13:58 Dose: 4 mg Tramadol HCl (Ultram) 50 mg PO Q4H PRN PRN Reason: Pain Stop: 11/05/18 10:44 Last Admin: 10/06/18 15:22 Dose: 50 mg _ (1) DKA (diabetic ketoacidoses) Diabetes mellitus complication detail: without coma Diabetes mellitus type: other specified (including AGUSTIN) Qualified Code(s): E13.10 - Other specified diabetes mellitus with ketoacidosis without coma (2) Back pain Back pain laterality: Back pain location: Chronicity: chronic Sciatica laterality: Sciatica presence: (3) Pancreatitis Acute pancreatitis complication: unspecified Chronicity: acute Pancreatitis type: unspecified pancreatitis type Qualified Code(s): K85.90 - Acute pancreatitis without necrosis or infection, unspecified (4) HTN (hypertension) Hypertension type: unspecified Qualified Code(s): I10 - Essential (primary) hypertension (5) Asthma Asthma complication type: uncomplicated Asthma persistence: persistent Asthma severity: moderate Qualified Code(s): J45.40 - Moderate persistent asthma, uncomplicated
--- NOTE | 2018-10-06 10:59 | Pharmacy Report ---
Glycemic Control Progress Note - Date of Service October 06, 2018 - Scope Glycemic Pharmacist consulted for glycemic control to write orders per [facility] inpatient glycemic control protocol. - Objective Accuchecks BSG(last 24 hours):: 10/05/18 10/05/18 10/05/18 11:57 16:59 20:11 POC Glucose 118 H 132 H 133 H 10/06/18 10/06/18 10/06/18 00:32 04:17 07:35 POC Glucose 125 H 118 H 109 H HbA1c:: Hemoglobin A1c 5.6 % (4.5-5.6) 10/03/18 06:50 - Recent Pertinent Medications The patient is currently receiving: * Basal insulin: Lantus 5-8 units every 12 hours * Correctional Insulin: Novolog Correction per scale ACHS Goal Range: Low 120 mg/dL - High 160 mg/dL Correction Factor: 25 mg/dL/unit * Prandial insulin: Per carb ratio of 1 unit per 8 grams CHO consumed - Outpatient Anti-Diabetic Meds N/A - Assessment & Plan ASSESSMENT: * See progress note from 10/03/18 for more background info, in short: * Pt receiving SQ basal bolus insulin regimen for hyperglycemia secondary to DKA that is now resolved. * Patient is currently receiving an average of 17 units of insulin per day * 13 units of basal insulin * 4 units of prandial/correctional insulin * BSGs ranging 95 - 132 mg/dl over the past 24hrs * Changes needed to insulin regimen: * AM Fasting BSG = 109 mg/dl. This is within goal range for patient based on inpatient targets and co-morbidities. Therefore Basal insulin will be continued at a fixed dose * Post-prandial BSGs are in range therefore no changes needed to CF/CR. * Total daily dose = 15-20 units. PLAN FOR INPATIENT GLYCEMIC CONTROL: * Continuing Lantus 6 units SQ BID * Continuing correction factor of 25 mg/dl/unit * Continuing carb ratio of 1 unit per 8 grams CHO consumed * Continuing goal range of Low 120 mg/dL - High 160 mg/dL RECOMMENDATIONS FOR DISCHARGE: * Patient requires close follow-up with outpatient physician regarding any diagnosis here. Patient tolerating low doses of Lantus but hardly any Novolog since she does not eat much. * Recommend the following: * Lantus 6 units SQ BID * Novolog goal blood sugar 120-160 mg/dL; CF of 25 and CR of 8. * Please note that the plan above was derived based on current level of insulin resistance and hospital stress. These recommendations are appropriate for inpatient admission only. Plan of care upon discharge will need to be reassessed to avoid potential outpatient hypo/hyperglycemia. Thank you.
[2018-10-06 11:02] LABS: BUN Creatinine Ratio 8.1 (10-20); Blood Urea Nitrogen 4 mg/dl (7-18); Calcium 8.5 mg/dl (8.5-10.1); Carbon Dioxide 27 mmol/L (21-32); Chloride 99 mmol/L (98-107); Creatinine Clr Calc Pharmacy 173.2 ml/min; Est GFR (African American) > 150.0; Est GFR (Non-African American) 134.6; Glucose 164 mg/dl (70-99); Magnesium 1.6 mg/dl (1.8-2.4); Potassium 3.5 mmol/L (3.5-5.1); Sodium 132 mmol/L (136-145)
[2018-10-06 11:03] LABS: Phosphorus 2.8 mg/dl (2.5-4.9)
[2018-10-06] MEDS: ONDANSETRON INJ 2 MG/ML 2 ML VIAL IV PRN (13:58)
[2018-10-06] MEDS: TRAMADOL HCL 50 MG TABLET PO PRN ×2 (15:22→20:36)
[2018-10-07] MEDS: TRAMADOL HCL 50 MG TABLET PO PRN ×3 (01:29→14:25)
[2018-10-07 08:11] VITALS: TEMP 99; O2SAT 97
[2018-10-07] MEDS: NIFEdipine EXTENDED REL 30 MG TABCR PO SCH (08:15)
[2018-10-07] MEDS: INSULIN ASPART 100 UNITS/ML 3 ML PEN SC SCH ×2 (08:16→12:10)
[2018-10-07] MEDS: INSULIN GLARGINE 100 UNIT/ML VIAL SC SCH (08:16)
--- NOTE | 2018-10-07 10:38 | Pharmacy Report ---
Glycemic Control Progress Note - Date of Service October 07, 2018 - Scope Glycemic Pharmacist consulted for glycemic control to write orders per [facility] inpatient glycemic control protocol. - Objective Accuchecks BSG(last 24 hours):: 10/06/18 10/06/18 10/06/18 10:09 11:34 17:02 Glucose 164 H POC Glucose 124 H 119 H 10/06/18 10/07/18 20:21 07:40 Glucose POC Glucose 123 H 115 H HbA1c:: Hemoglobin A1c 5.6 % (4.5-5.6) 10/03/18 06:50 - Recent Pertinent Medications The patient is currently receiving: * Basal insulin: Lantus 6 units every 12 hours * Correctional Insulin: Novolog Correction per scale ACHS Goal Range: Low 120 mg/dL - High 160 mg/dL Correction Factor: 25 mg/dL/unit * Prandial insulin: Per carb ratio of 1 unit per 8 grams CHO consumed - Outpatient Anti-Diabetic Meds N/A - Assessment & Plan ASSESSMENT: * See progress note from 10/03/18 for more background info, in short: * Pt receiving SQ basal bolus insulin regimen for hyperglycemia secondary to possible new diagnosis of diabetes. * Patient is currently receiving an average of 20 units of insulin per day * 11 units of basal insulin * 9 units of prandial/correctional insulin * BSGs ranging 109 - 124 mg/dl over the past 24hrs * Changes needed to insulin regimen: * AM Fasting BSG = 115 mg/dl. This is within goal range for patient based on inpatient targets and co-morbidities. Continue basal insulin. Patient slated to receive 12 units today, one unit more than yesterday. * Post-prandial BSGs are in range therefore no changes needed to CF/CR. * Total daily dose = 20-25 units. PLAN FOR INPATIENT GLYCEMIC CONTROL: * Continuing Lantus 6 units SQ BID * Continuing correction factor of 25 mg/dl/unit * Continuing carb ratio of 1 unit per 8 grams CHO consumed * Continuing goal range of Low 120 mg/dL - High 160 mg/dL RECOMMENDATIONS FOR DISCHARGE: * see note from 10/06/18 * Please note that the plan above was derived based on current level of insulin resistance and hospital stress. These recommendations are appropriate for inpatient admission only. Plan of care upon discharge will need to be reassessed to avoid potential outpatient hypo/hyperglycemia. Thank you.
[2018-10-07] MEDS: ACETAMINOPHEN 325 MG TAB PO PRN (16:03)
--- NOTE | 2018-10-07 16:12 | Discharge Summary ---
Date of Service October 07, 2018 Admission HPI Per Admitting Provider This is a 33-year-old -[place] female who has a significant past medical history of chronic back pain, heart murmur, asthma, GERD, history of preeclampsia complicating , history of gestational diabetes, depression who presents to [facility] secondary to abdominal pain, nausea and vomiting times 4 days. Of significant note patient is 7 weeks . She was confined at [facility] from 08/10/18 to secondary to repeat . Patient underwent secondary to preeclampsia, gestational diabetes as well as IUGR by Dr. Grijalva. Patient tolerated procedure well without postoperative complications. Her blood sugars remain normal in the postop period. Outpt records reveal pt developed nausea, vaginal pain and dysuria after britt removed on 08/21/18. Therefore, given Macrobid for 7 days and completed. She had been doing well except for incisional discomfort until 4-5 days ago. Patient developed abdominal pain , emesis, nausea, inability to tolerate p.o. intake. Symptoms worsened which prompted her to present to ED. She currently is not breast-feeding and states she has not checked her blood sugar since leaving hospital or taken insulin. She denies fever, chills, sweats, lightheadedness, dizziness, chest pain, cough , URI symptoms, hemoptysis, shortness of breath, diarrhea, dysuria, increased frequency, urgency with urination, hematuria, vaginal discharge or bleeding. and child is at bedside. She has been taking ibuprofen 600 mg as needed for pain. She does drink alcohol approximately 3-4 times weekly, 2 glasses of wine. Admission Exam Per Admitting Provider Gen: WD/WN, F, ill appearing, sitting up in bed, pleasant, conversing easily Head: Normocephalic, Atraumatic Eyes: Sclera normal, no conjunctival injection, PERRLA, EOMI ENT: Gross hearing intact, normal pharynx, mucous membranes dry Neck: supple, no adenopathy, No JVD, no bruit, Resp: Clear to auscultation b/l, no wheeze, rales, rhonchi. Normal insp/exp effort, no accessory muscle use CV: Regular rate, regular rhythm, soft 1/6 DALIA noted LUSB, no rub, gallop, or ectopy Abd: + hypoactiveBS x 4, soft, mild distension, tenderness to epigastrum, RUQ with rebound, no rigidity or guarding, abdominal scar noted, well healed Musculoskeletal: moves extremities active rom x 4, strength intact, good internal auditor strength Extremities: No edema bilaterally Skin: warm, dry, no rash, mod turgor, cap refill < 2sec, Neuro: Alert and oriented x 3, speech normal, good mood/affect, cran nerve 2-12 intact grossly : deferred Principal Diagnosis DKA Acute pancreatitis Discharge Data Allergies Allergy/AdvReac Type Severity Reaction Status Date / Time bee venom protein (honey bee) Allergy Unknown ANAPHYLAXIS Verified 10/03/18 07: 05 Consultations 10/03/18 08:23 ED Decision to Admit Stat 10/03/18 08:46 Consult Independent Distributor Stat 10/03/18 09:09 Consult Independent Distributor Routine 10/03/18 10:30 Consult Case Management - Discharge Planning Routine 10/05/18 16:36 Consult Nephrology Routine Ordered Studies 10/03/18 06:38 CT abd pelvis IV con only Stat CT angio chest PE protocol Stat Hospital Course (1) DKA (diabetic ketoacidoses): (2) DMII (diabetes mellitus, type 2): (3) Pancreatitis: (4) Asthma: (5) Hepatic steatosis: (6) Back pain: (7) Thrombocytopenia: (8) HTN (hypertension): (9) Elevated LFTs: 33-year-old female with history of gestational diabetes and preeclampsia presented with acute DKA. Symptoms had persisted at home for approximately 4-5 days with onset of acute abdominal pain consistent with acute pancreatitis. She was initially admitted to the ICU and started on insulin drip with supportive care and IV fluids. Within 24 hours her gap was closed and her bicarb had improved. She was transferred out of the ICU and continued to have some pain requiring persistent IV fluids and antiemetics. However within 2 days she began to tolerate solid food without issue. While admitted she did use oxycodone and then tramadol for pain control. She reported an improvement in abdominal pain consistently every day. She also has a history of chronic back pain managed with chiropractic manipulation. This was stable and not worse than her normal chronic back pain. With a history of preeclampsia her urine protein was checked and persistently positive. Nephrology was consulted and recommended outpatient follow-up and no use of NSAIDs. She was placed on nifedipine for blood pressure control and was at goal prior to discharge. It is recommended that she continue insulin for persistent type 2 diabetes post and follow closely with primary care. She was discharged on basal bolus insulin similar to what she was on with a reduction in dose. She was discharged in stable condition. At time of discharge she had persistent epigastric tenderness but this was greatly improved since admission and consistently improving daily. Lungs were clear to auscultation and physical exam was otherwise unremarkable. Total Time Total Time Spent Total Time Spent (In Minutes): 60 Total Time Includes: Examination of the Patient, Discharge Planning, Medication Reconciliation and Communication With Other Providers Discharge Plan Discharge Items Patient Disposition: Home - Self-Care Reason For Visit: DKA, PANCREATITIS Discharge Diagnosis: DKA, DMII, HTN with proteinuria, Acute pancreatitis, electrolyte abnormalities-resolved. Condition: Good Discharge Goals: Improve disease control and Improve function Activity: Resume your previous activity Non-emergency contact: Primary Care Provider Call non-emergency contact if: you have any medication questions, your symptoms worsen, your pain is not controlled, your pain is worsening, your pain is unusual for you, your pain is concerning for you and you have a fever Diet: Carb Consistent or DM2 and Heart Healthy Addtl Provider Instructions: Please take all medications as instructed on discharge list below. You will be restarting insulin at home. This will require that you check your blood sugar while fasting every morning and at least one other time throughout the day randomly. Bring these documented measurements to your primary care physician for review at every appointment as you may need frequent titration of your dosage based on these values. Your initial starting regimen will include: Basaglar (long-acting insulin)- take 10 Units under the skin every evening Admelog (short-acting insulin)- take 5 Units 15-30 minutes prior to the largest meal of the day. It is recommended that you followup with your primary care provider within the next week. Someone will contact you on Monday to set that up. It is recommended that you follow-up with Dr. Fatou Chou in [facility] in the next 4-6 weeks. You may need a referral from your primary care provider for this. It was a pleasure taking care of you! Please call if you have any questions or problems. You can reach a [facility] hospitalist on duty at [facility] 24 hours a day by calling [phone]. Take care of yourself. DO [facility] Prescriptions: New nifedipine [Adalat CC] 30 mg Tablet Extended Release 30 mg PO DAILY Qty: 30 RF: 2 tramadol 50 mg Tablet 50 mg PO Q4H PRN (Reason: pain) Qty: 20 RF: 0 Continue albuterol sulfate [Ventolin HFA] 90 mcg/actuation Hfa Aerosol Inhaler 1 puff INHALATION Q6H PRN (Reason: SOB) RF: 0 lancets misc RF: 0 insulin lispro 100 unit/mL insulin pen See Label Instructions .ROUTE .COMPLEX RF: 0 pen needle, diabetic 31 gauge x 3/16" needle RF: 0 insulin glargine 100 unit/mL (3 mL) insulin pen See Label Instructions .ROUTE .COMPLEX RF: 0 blood sugar diagnostic strip Qty: 100 RF: 1 Stand-Alone Forms: [facility]osk [facility]/Other Patient Handouts: Preg Multiples Concerns, Hypertension Control, Diabetes Gestational, Pancreatitis, ED Proteinuria Discharge Orders: Discharge Order (Routine); Ordered 10/07/18 Ordered By: Emelia Murray Admission Data Admit Date/Time: 10/03/18 09:18 Attending Provider: Emelia Murray Admit Provider: Emelia Murray Primary Care Provider: Harinder Nathan Other Providers: Mary Crabtree ; Emelia Murray ; Fatou Chou Service: Telemetry Other Interventions: Discharge Summary Assessment (RN) Last Done: 10/07/18 16:14
[2018-10-07 16:16] VITALS: BP 127/84; PULSE 89
[2018-10-07] MEDS ORDERED: INSULIN GLARGINE 100 UNIT/ML VIAL SC SCH (21:00)
== END 2018-10-07 18:32 | disposition home or self-care (01) | DRG 776 ==
LOC: ED 06:13 → 1E 09:07 → 2N 10-04 18:20

== ENCOUNTER 2019-04-29 16:09 | Inpatient (IN) ==
[2019-04-29 17:01] LABS: Basophils # (auto) 0.01 K/uL (0-0.2); Basophils % (auto) 0.2 %; Eosinophils # (auto) 0.05 K/uL (0-0.5); Eosinophils % (auto) 0.8 %; Hematocrit (blood only) 44.4 % (37-47); Hemoglobin 15.9 g/dL (12.0-16.0); Immature Granulocytes # (auto) 0.01 K/uL (0.00-0.02); Immature Granulocytes % (auto) 0.2 %; Lymphocytes # (auto) 1.28 K/uL (1.2-3.4); Mean Corpuscular Hemoglobin 35.5 pg (25-34); Mean Corpuscular Hgb Conc 35.8 g/dL (32-36); Mean Corpuscular Volume 99.1 fL (80-100); Mean Platelet Volume 11.2 fL (7.4-10.4); Monocytes # (auto) 0.39 K/uL (0.11-0.59); Monocytes % (auto) 6.1 %; Neutrophils # (auto) 4.65 K/uL (1.4-6.5); Neutrophils % (auto) 72.7 %; Platelet Count 158 K/uL (130-400); RDW Coefficient of Variation 11.9 % (11.5-14.5); RDW Standard Deviation 42.8 fL (36.4-46.3); Red Blood Count 4.48 M/uL (4.2-5.4); White Blood Count 6.39 K/uL (4.8-10.8)
[2019-04-29 17:22] LABS: Albumin Globulin Ratio 0.8 (0.9-2); Albumin Level 3.8 gm/dl (3.4-5.0); BUN Creatinine Ratio 23.1 (10-20); Bilirubin,Total 1.4 mg/dl (0.2-1); Calcium 8.7 mg/dl (8.5-10.1); Creatinine Clr Calc Pharmacy 62.8 ml/min; Est GFR (African American) 76.9; Est GFR (Non-African American) 66.4; Globulin 4.7 gm/dl (2.5-4.0); Potassium 3.7 mmol/L (3.5-5.1); Total Protein 8.5 gm/dl (6.4-8.2)
[2019-04-29] MEDS ORDERED: SODIUM CHLORIDE 0.9% 1000ML 1,000 ML IV ONE ×2 (17:34→19:49)
[2019-04-29] MEDS ORDERED: LACTATED RINGER'S 1,000 ML IV ONE ×3 (17:36→23:24)
--- NOTE | 2019-04-29 18:10 | Emergency Department Note ---
Entered by Jahaira Fernandez acting as a scribe for Michael Garcia DO History of Present Illness General Chief complaint: Illness Stated complaint: FLANK PAIN, SOB Time Seen by Provider: 04/29/19 17:24 Source: patient History of Present Illness Provider complaint: chest pain Onset (ago): day(s) 3 Location: chest Pain Consistency: + other (episode) Maximum Pain Intensity: 8 Exacerbated By: + other (coughing) Associated symptoms: + denies other symptoms (urinary symptoms), + fever/chills (yesterday), + headaches, + loss of appetite, + nausea/vomiting, + shortness of breath and + other (neck pain, diabetic but sugars have been good, feels like head is going to explode) The patient is a 33 year old female who presents to the ED with complaints of an episode of chest pain that started 3 days ago. The patient states that the chest pain that is worse when coughing. The patient states that she also has a headache, shortness of breath, fever yesterday, vomiting, neck pain and loss of appetite. The patient notes that it feels like her head is going to explode. The patient states that she is diabetic, but notes that her sugars have been good. The patient denies urinary symptoms. Home Medications Home Medications Medication Instructions Recorded Confirmed Type albuterol sulfate [Ventolin HFA] 1 puff INHALATION Q6H PRN 08/09/18 04/29/19 History insulin glargine [Lantus Solostar See Rx Instructions .ROUTE .COMPLEX 10/07/18 04/29/19 History U-100 Insulin] insulin lispro See Rx Instructions .ROUTE .COMPLEX 10/07/18 04/29/19 History nifedipine [Adalat CC] 30 mg PO DAILY #30 tab 10/07/18 04/29/19 Rx Allergies Allergy/AdvReac Type Severity Reaction Status Date / Time bee venom protein (honey bee) Allergy Unknown ANAPHYLAXIS Verified 04/29/19 19:14 Past Med/Surg History Medical History Asthma Cardiac murmur CONGENITAL -- BENIGN. 10/09/15 echo: The examination is adequate to evaluate the referral indication. The qualitative LV ejection fraction is 60-64% (normal). The left ventricular diastolic function is normal. No significant valvular disease is present. Depression H/O Anxiety H/O GERD (gastroesophageal reflux disease) R/T Scoliosis MINOR Gestational diabetes Diabetes Surgical History History of adenoidectomy History of tonsillectomy History of section x 2 Social History Preferred Language: Divehi 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: Effective Relay Record Clerk Required: No Beliefs That Will Affect Care: None Current Living Situation: Spouse and Significant Other Feels Safe at Home: Yes Smoking Status: Never smoker Tobacco Type: cigarettes ; Cigarettes Per Day: 2 QOD ; Second Hand Exposure: No ; Hx Alcohol Use: Yes Alcohol type: wine Hx Substance Use: No Review of Systems See HPI for pertinent positives & negatives. and A total of 10 systems reviewed and were otherwise negative Physical Exam Vital Signs Vital Signs - 24 hr 04/29/19 16:24 04/29/19 17:34 04/29/19 18:09 Temperature 36.7 C Temperature Source Oral Sepsis Recent Fever Within 48 Hours Yes Sepsis New/Unexplained Change in Mental Status No Sepsis Action Taken by Nursing No Action Required Pulse Rate 130 H 92 H Pulse Rate [Apical] 105 H Pulse Rate from SpO2 Sensor Pulse Rhythm Regular Regular Pulse Rhythm [Apical] Regular Pulse Strength Normal Pulse Strength [Apical] Normal Respiratory Rate 22 20 Respiratory Effort / Characteristics Non-Labored Spontaneous Non-Labored Spontaneous Respiratory Depth Normal Normal Respiratory Pattern Regular Blood Pressure 138/101 H Blood Pressure [Left Arm] 157/109 H Blood Pressure Mean 113 Blood Pressure Mean [Left Arm] 125 Blood Pressure Position Sitting Blood Pressure Position [Left Arm] Sitting Pulse Oximetry 100 98 98 Oxygen Delivery Method Room Air Room Air Room Air 04/29/19 19:10 04/29/19 19:13 04/29/19 19:15 Temperature Temperature Source Sepsis Recent Fever Within 48 Hours Sepsis New/Unexplained Change in Mental Status Sepsis Action Taken by Nursing Pulse Rate 89 82 86 Pulse Rate [Apical] Pulse Rate from SpO2 Sensor Pulse Rhythm Pulse Rhythm [Apical] Pulse Strength Pulse Strength [Apical] Respiratory Rate 23 20 21 Respiratory Effort / Characteristics Respiratory Depth Respiratory Pattern Blood Pressure 157/112 H 157/112 H Blood Pressure [Left Arm] Blood Pressure Mean 127 127 Blood Pressure Mean [Left Arm] Blood Pressure Position Blood Pressure Position [Left Arm] Pulse Oximetry 98 Oxygen Delivery Method 04/29/19 19:30 04/29/19 19:45 04/29/19 20:00 Temperature Temperature Source Sepsis Recent Fever Within 48 Hours Sepsis New/Unexplained Change in Mental Status Sepsis Action Taken by Nursing Pulse Rate 80 86 87 Pulse Rate [Apical] Pulse Rate from SpO2 Sensor 80 87 87 Pulse Rhythm Pulse Rhythm [Apical] Pulse Strength Pulse Strength [Apical] Respiratory Rate 21 21 17 Respiratory Effort / Characteristics Respiratory Depth Respiratory Pattern Blood Pressure Blood Pressure [Left Arm] Blood Pressure Mean Blood Pressure Mean [Left Arm] Blood Pressure Position Blood Pressure Position [Left Arm] Pulse Oximetry 100 100 100 Oxygen Delivery Method 04/29/19 20:13 04/29/19 20:15 04/29/19 20:33 Temperature Temperature Source Sepsis Recent Fever Within 48 Hours Sepsis New/Unexplained Change in Mental Status Sepsis Action Taken by Nursing Pulse Rate 86 89 89 Pulse Rate [Apical] Pulse Rate from SpO2 Sensor 89 89 91 H Pulse Rhythm Pulse Rhythm [Apical] Pulse Strength Pulse Strength [Apical] Respiratory Rate 24 23 21 Respiratory Effort / Characteristics Respiratory Depth Respiratory Pattern Blood Pressure 157/104 H 142/100 H Blood Pressure [Left Arm] Blood Pressure Mean 121 114 Blood Pressure Mean [Left Arm] Blood Pressure Position Blood Pressure Position [Left Arm] Pulse Oximetry 100 100 100 Oxygen Delivery Method 04/29/19 20:34 04/29/19 20:45 04/29/19 21:00 Temperature Temperature Source Sepsis Recent Fever Within 48 Hours Sepsis New/Unexplained Change in Mental Status Sepsis Action Taken by Nursing Pulse Rate 92 H 81 Pulse Rate [Apical] 87 Pulse Rate from SpO2 Sensor 92 H 81 Pulse Rhythm Pulse Rhythm [Apical] Regular Pulse Strength Pulse Strength [Apical] Respiratory Rate 16 22 21 Respiratory Effort / Characteristics Non-Labored Spontaneous Respiratory Depth Normal Respiratory Pattern Regular Blood Pressure 157/110 H Blood Pressure [Left Arm] 142/100 H Blood Pressure Mean 125 Blood Pressure Mean [Left Arm] 114 Blood Pressure Position Blood Pressure Position [Left Arm] Pulse Oximetry 100 100 Oxygen Delivery Method 04/29/19 21:01 04/29/19 21:15 04/29/19 21:30 Temperature Temperature Source Sepsis Recent Fever Within 48 Hours Sepsis New/Unexplained Change in Mental Status Sepsis Action Taken by Nursing Pulse Rate 82 98 H 94 H Pulse Rate [Apical] Pulse Rate from SpO2 Sensor 82 99 H 92 H Pulse Rhythm Pulse Rhythm [Apical] Pulse Strength Pulse Strength [Apical] Respiratory Rate 21 18 23 Respiratory Effort / Characteristics Respiratory Depth Respiratory Pattern Blood Pressure 163/98 H Blood Pressure [Left Arm] Blood Pressure Mean 119 Blood Pressure Mean [Left Arm] Blood Pressure Position Blood Pressure Position [Left Arm] Pulse Oximetry 100 100 100 Oxygen Delivery Method 04/29/19 21:45 04/29/19 22:02 04/29/19 22:15 Temperature Temperature Source Sepsis Recent Fever Within 48 Hours Sepsis New/Unexplained Change in Mental Status Sepsis Action Taken by Nursing Pulse Rate 105 H 87 87 Pulse Rate [Apical] Pulse Rate from SpO2 Sensor 102 H 87 87 Pulse Rhythm Pulse Rhythm [Apical] Pulse Strength Pulse Strength [Apical] Respiratory Rate 18 18 21 Respiratory Effort / Characteristics Respiratory Depth Respiratory Pattern Blood Pressure 152/102 H Blood Pressure [Left Arm] Blood Pressure Mean 118 Blood Pressure Mean [Left Arm] Blood Pressure Position Blood Pressure Position [Left Arm] Pulse Oximetry 100 100 100 Oxygen Delivery Method 04/29/19 22:30 04/29/19 22:45 04/29/19 23:00 Temperature Temperature Source Sepsis Recent Fever Within 48 Hours Sepsis New/Unexplained Change in Mental Status Sepsis Action Taken by Nursing Pulse Rate 101 H 85 88 Pulse Rate [Apical] Pulse Rate from SpO2 Sensor 96 H 85 88 Pulse Rhythm Pulse Rhythm [Apical] Pulse Strength Pulse Strength [Apical] Respiratory Rate 20 21 25 H Respiratory Effort / Characteristics Respiratory Depth Respiratory Pattern Blood Pressure 151/103 H 146/106 H Blood Pressure [Left Arm] Blood Pressure Mean 119 119 Blood Pressure Mean [Left Arm] Blood Pressure Position Blood Pressure Position [Left Arm] Pulse Oximetry 100 100 100 Oxygen Delivery Method 04/29/19 23:15 04/29/19 23:31 04/29/19 23:45 Temperature Temperature Source Sepsis Recent Fever Within 48 Hours Sepsis New/Unexplained Change in Mental Status Sepsis Action Taken by Nursing Pulse Rate 86 98 H 79 Pulse Rate [Apical] Pulse Rate from SpO2 Sensor 89 99 H 80 Pulse Rhythm Pulse Rhythm [Apical] Pulse Strength Pulse Strength [Apical] Respiratory Rate 20 41 H 20 Respiratory Effort / Characteristics Respiratory Depth Respiratory Pattern Blood Pressure 131/100 Blood Pressure [Left Arm] Blood Pressure Mean 110 Blood Pressure Mean [Left Arm] Blood Pressure Position Blood Pressure Position [Left Arm] Pulse Oximetry 100 100 100 Oxygen Delivery Method 04/30/19 00:00 04/30/19 00:15 04/30/19 00:30 Temperature Temperature Source Sepsis Recent Fever Within 48 Hours Sepsis New/Unexplained Change in Mental Status Sepsis Action Taken by Nursing Pulse Rate 84 86 88 Pulse Rate [Apical] Pulse Rate from SpO2 Sensor 84 86 87 Pulse Rhythm Pulse Rhythm [Apical] Pulse Strength Pulse Strength [Apical] Respiratory Rate 19 21 17 Respiratory Effort / Characteristics Respiratory Depth Respiratory Pattern Blood Pressure 144/109 H 156/107 H Blood Pressure [Left Arm] Blood Pressure Mean 120 123 Blood Pressure Mean [Left Arm] Blood Pressure Position Blood Pressure Position [Left Arm] Pulse Oximetry 100 100 100 Oxygen Delivery Method 04/30/19 00:31 Temperature Temperature Source Sepsis Recent Fever Within 48 Hours Sepsis New/Unexplained Change in Mental Status Sepsis Action Taken by Nursing Pulse Rate 89 Pulse Rate [Apical] Pulse Rate from SpO2 Sensor 90 Pulse Rhythm Pulse Rhythm [Apical] Pulse Strength Pulse Strength [Apical] Respiratory Rate 17 Respiratory Effort / Characteristics Respiratory Depth Respiratory Pattern Blood Pressure Blood Pressure [Left Arm] Blood Pressure Mean Blood Pressure Mean [Left Arm] Blood Pressure Position Blood Pressure Position [Left Arm] Pulse Oximetry 100 Oxygen Delivery Method GENERAL: The patient is awake and alert. She is somewhat anxious appearing. EYES: The conjunctivae are clear. The pupils are round and reactive. EARS, NOSE, MOUTH AND THROAT: The nose is without any evidence of any deformity. Mucous membranes are moist tongue is midline NECK: The neck is nontender and supple. RESPIRATORY: Tachypnea was noted. There was no diminished breath sounds are abnormal lung sounds in the lung avina. Lungs were essentially clear. CARDIOVASCULAR: Tachycardic rate with regular rhythm was noted. There is no definite murmur noted. GASTROINTESTINAL: T the abdomen is mildly distended but soft. There is right upper quadrant tenderness to palpation. No specific guarding rigidity was noted. BACK: Right CVA tenderness was noted to percussion. Range of motion appears intact. MUSCULOSKELETAL/EXTREMITIES: There is no evidence of gross deformity full range of motion is noted in the hips and shoulders SKIN: There is no obvious evidence of any rash. There are no petechiae, pallor or cyanosis noted. NEUROLOGIC: Patient is awake alert and oriented x3 strength is symmetric patellar reflexes are 2+ bilaterally Course 1732: Past medical records reviewed. The patient was evaluated in room B4. A co mplete history and physical exam was performed. 1933: I updated the patient on the test results and plan for admission. She verbally agrees and understands. 1957: I reevaluated the patient and she appears to be comfortable. 2009: I discussed the patient's case with Dr. Ever Barahona, Hospitalist. He will evaluate the patient for further management. Administered Medications Lactated Ringer's (Lr) 1,000 mls @ 500 mls/hr IV .Q2H ONE Stop: 04/30/19 01:23 Last Admin: 04/30/19 00:45 Dose: 500 mls/hr Documented by: [id number] Ioversol (Optiray 320 125ml) 118 ml IV ONCE PRN PRN Reason: Interaction Checking Stop: 05/03/19 18:58 Last Admin: 04/29/19 19:00 Dose: 118 ml Documented by: [id number] Discontinued Medications Sodium Chloride (Nss 1000ml) 1,000 mls @ 999 mls/hr IV .Q1H1M ONE Stop: 04/29/19 18:34 Last Infusion: 04/29/19 19:24 Dose: 0 mls/hr Documented by: [id number] Admin: 04/29/19 18:11 Dose: 999 mls/hr Documented by: [id number] Lactated Ringer's (Lr) 1,000 mls @ 999 mls/hr IV .Q1H1M ONE Stop: 04/29/19 18:36 Last Infusion: 04/29/19 19:23 Dose: 0 mls/hr Documented by: [id number] Admin: 04/29/19 18:12 Dose: 999 mls/hr Documented by: [id number] Ceftriaxone Sodium (Rocephin) 1,000 mg in 50 mls @ 100 mls/hr IV NOW STA Stop: 04/29/19 20:02 Last Infusion: 04/29/19 20:12 Dose: 0 mls/hr Documented by: [id number] Admin: 04/29/19 19:43 Dose: 100 mls/hr Documented by: [id number] Sodium Chloride (Nss 1000ml) 1,000 mls @ 999 mls/hr IV .Q1H1M ONE Stop: 04/29/19 20:49 Last Infusion: 04/29/19 21:46 Dose: 0 mls/hr Documented by: [id number] Admin: 04/29/19 20:12 Dose: 999 mls/hr Documented by: [id number] Lactated Ringer's (Lr) 1,000 mls @ 500 mls/hr IV .Q2H ONE Stop: 04/29/19 22:59 Last Infusion: 04/29/19 23:06 Dose: 0 mls/hr Documented by: [id number] Admin: 04/29/19 21:05 Dose: 500 mls/hr Documented by: [id number] Ketorolac Tromethamine (Toradol) 10 mg IV NOW ONE Stop: 04/29/19 23:28 Last Admin: 04/29/19 23:41 Dose: 10 mg Documented by: [id number] Potassium Chloride (Klor-Con M20) 40 meq PO NOW STA Stop: 04/29/19 20:29 Last Admin: 04/29/19 21:05 Dose: 40 meq Documented by: [id number] Medical Decision Making Differential Diagnosis Differential diagnosis: Etiologies such as shingles, musculoskeletal pain, pericarditis, myocarditis, cardiac ischemia, pericardial tamponade, pneumonia, pneumothorax, pleural effusion, hemothorax, pleurisy, aortic pathology, pulmonary embolism, intra- abdominal process, as well as others were considered. Medical Records Attestation: I reviewed the patient's medical records. Home Medications Current Medication List: was personally reviewed by me Laboratory Data Attestation: I reviewed the patient's lab results. Result diagrams: 04/29/19 16:37 04/29/19 22:05 Lab Results 04/29/19 04/29/19 04/29/19 Range/Units 16:37 16:37 16:37 WBC 6.39 (4.8-10.8) K/uL RBC 4.48 (4.2-5.4) M/uL Hgb 15.9 (12.0-16.0) g/dL Hct 44.4 (37-47) % MCV 99.1 (80-100) fL MCH 35.5 H (25-34) pg MCHC 35.8 (32-36) g/dL RDW Std Deviation 42.8 (36.4-46.3) fL RDW Coeff of Arnold 11.9 (11.5-14.5) % Plt Count 158 (130-400) K/uL MPV 11.2 H (7.4-10.4) fL Immature Gran % (Auto) 0.2 % Neut % (Auto) 72.7 % Lymph % (Auto) 20.0 % [place] % (Auto) 6.1 % Eos % (Auto) 0.8 % Baso % (Auto) 0.2 % Immature Gran # (Auto) 0.01 (0.00-0.02) K/uL Neut # (Auto) 4.65 (1.4-6.5) K/uL Lymph # (Auto) 1.28 (1.2-3.4) K/uL [place] # (Auto) 0.39 (0.11-0.59) K/uL Eos # (Auto) 0.05 (0-0.5) K/uL Baso # (Auto) 0.01 (0-0.2) K/uL ESR 77 H (0-21) mm/hr PT (9.0-12.0) Seconds INR (0.9-1.1) APTT (21.0-31.0) Seconds PTT Ratio D-Dimer (0-500) ug/L FEU VBG pH (7.36-7.41) VBG pCO2 (38-50) mmHg VBG pO2 mmHg VBG HCO3 mmol/L VBG O2 Saturation % VBG Base Excess mEq/L Barometric Pressure mm/Hg Sodium 128 L (136-145) mmol/L Potassium 3.7 (3.5-5.1) mmol/L Chloride 97 L (98-107) mmol/L Carbon Dioxide 8 L* (21-32) mmol/L Anion Gap 23.0 H (3-11) BUN 25 H (7-18) mg/dl Creatinine 1.10 (0.6-1.2) mg/dl Est Cr Clr Drug Dosing 62.8 ml/min Est GFR ( Amer) 76.9 Est GFR (Non-Af Amer) 66.4 BUN/Creatinine Ratio 23.1 H (10-20) Glucose 189 H (70-99) mg/dl Osmolality (280-300) mOsm/kg Lactate (0.4-2.0) mmol/L Calcium 8.7 (8.5-10.1) mg/dl Magnesium (1.8-2.4) mg/dl Total Bilirubin 1.4 H (0.2-1) mg/dl AST 142 H (15-37) U/L ALT 127 H (12-78) U/L Alkaline Phosphatase 107 (45-117) U/L Troponin I (0-0.045) ng/ml C-Reactive Protein (0-0.29) mg/dl Total Protein 8.5 H (6.4-8.2) gm/dl Albumin 3.8 (3.4-5.0) gm/dl Globulin 4.7 H (2.5-4.0) gm/dl Albumin/Globulin Ratio 0.8 L (0.9-2) Amylase (25-115) U/L Lipase (73-393) U/L Procalcitonin (0-0.5) ng/ml TSH (0.300-4.500) uIu/ml Urine Color Urine Appearance (Clear) Urine pH (4.5-7.5) Ur Specific [place] (1.000-1.030) Urine Protein (Negative) Urine Glucose (UA) (Negative) Urine Ketones (Negative) Urine Blood (Negative) Urine Nitrite (Negative) Urine Bilirubin (Negative) Urine Urobilinogen (Negative) Ur Leukocyte Esterase (Negative) Urine WBC (Auto) (0-5) /hpf Urine RBC (Auto) (0-4) /hpf U Hyaline Cast (Auto) (0-5) /lpf U Epithel Cells (Auto) (0-5) /lpf Urine Bacteria (Auto) (Negative) POC Ur Test (NEG) Ethyl Alcohol mg/dL (0-3) mg/dl 04/29/19 04/29/19 04/29/19 Range/Units 16:37 16:37 16:42 WBC (4.8-10.8) K/uL RBC (4.2-5.4) M/uL Hgb (12.0-16.0) g/dL Hct (37-47) % MCV (80-100) fL MCH (25-34) pg MCHC (32-36) g/dL RDW Std Deviation (36.4-46.3) fL RDW Coeff of Arnold (11.5-14.5) % Plt Count (130-400) K/uL MPV (7.4-10.4) fL Immature Gran % (Auto) % Neut % (Auto) % Lymph % (Auto) % [place] % (Auto) % Eos % (Auto) % Baso % (Auto) % Immature Gran # (Auto) (0.00-0.02) K/uL Neut # (Auto) (1.4-6.5) K/uL Lymph # (Auto) (1.2-3.4) K/uL [place] # (Auto) (0.11-0.59) K/uL Eos # (Auto) (0-0.5) K/uL Baso # (Auto) (0-0.2) K/uL ESR (0-21) mm/hr PT 10.3 (9.0-12.0) Seconds INR 1.0 (0.9-1.1) APTT 29.2 (21.0-31.0) Seconds PTT Ratio 1.1 D-Dimer 1100 H* (0-500) ug/L FEU VBG pH (7.36-7.41) VBG pCO2 (38-50) mmHg VBG pO2 mmHg VBG HCO3 mmol/L VBG O2 Saturation % VBG Base Excess mEq/L Barometric Pressure mm/Hg Sodium (136-145) mmol/L Potassium (3.5-5.1) mmol/L Chloride (98-107) mmol/L Carbon Dioxide (21-32) mmol/L Anion Gap (3-11) BUN (7-18) mg/dl Creatinine (0.6-1.2) mg/dl Est Cr Clr Drug Dosing ml/min Est GFR ( Amer) Est GFR (Non-Af Amer) BUN/Creatinine Ratio (10-20) Glucose (70-99) mg/dl Osmolality (280-300) mOsm/kg Lactate (0.4-2.0) mmol/L Calcium (8.5-10.1) mg/dl Magnesium (1.8-2.4) mg/dl Total Bilirubin (0.2-1) mg/dl AST (15-37) U/L ALT (12-78) U/L Alkaline Phosphatase (45-117) U/L Troponin I (0-0.045) ng/ml C-Reactive Protein (0-0.29) mg/dl Total Protein (6.4-8.2) gm/dl Albumin (3.4-5.0) gm/dl Globulin (2.5-4.0) gm/dl Albumin/Globulin Ratio (0.9-2) Amylase (25-115) U/L Lipase (73-393) U/L Procalcitonin 0.26 (0-0.5) ng/ml TSH (0.300-4.500) uIu/ml Urine Color Urine Appearance (Clear) Urine pH (4.5-7.5) Ur Specific [place] (1.000-1.030) Urine Protein (Negative) Urine Glucose (UA) (Negative) Urine Ketones (Negative) Urine Blood (Negative) Urine Nitrite (Negative) Urine Bilirubin (Negative) Urine Urobilinogen (Negative) Ur Leukocyte Esterase (Negative) Urine WBC (Auto) (0-5) /hpf Urine RBC (Auto) (0-4) /hpf U Hyaline Cast (Auto) (0-5) /lpf U Epithel Cells (Auto) (0-5) /lpf Urine Bacteria (Auto) (Negative) POC Ur Test NEG (NEG) Ethyl Alcohol mg/dL (0-3) mg/dl 04/29/19 04/29/19 04/29/19 Range/Units 17:56 17:56 17:56 WBC (4.8-10.8) K/uL RBC (4.2-5.4) M/uL Hgb (12.0-16.0) g/dL Hct (37-47) % MCV (80-100) fL MCH (25-34) pg MCHC (32-36) g/dL RDW Std Deviation (36.4-46.3) fL RDW Coeff of Arnold (11.5-14.5) % Plt Count (130-400) K/uL MPV (7.4-10.4) fL Immature Gran % (Auto) % Neut % (Auto) % Lymph % (Auto) % [place] % (Auto) % Eos % (Auto) % Baso % (Auto) % Immature Gran # (Auto) (0.00-0.02) K/uL Neut # (Auto) (1.4-6.5) K/uL Lymph # (Auto) (1.2-3.4) K/uL [place] # (Auto) (0.11-0.59) K/uL Eos # (Auto) (0-0.5) K/uL Baso # (Auto) (0-0.2) K/uL ESR (0-21) mm/hr PT (9.0-12.0) Seconds INR (0.9-1.1) APTT (21.0-31.0) Seconds PTT Ratio D-Dimer (0-500) ug/L FEU VBG pH (7.36-7.41) VBG pCO2 (38-50) mmHg VBG pO2 mmHg VBG HCO3 mmol/L VBG O2 Saturation % VBG Base Excess mEq/L Barometric Pressure mm/Hg Sodium 129 L (136-145) mmol/L Potassium 3.6 (3.5-5.1) mmol/L Chloride 95 L (98-107) mmol/L Carbon Dioxide 12 L (21-32) mmol/L Anion Gap 22.0 H (3-11) BUN 29 H (7-18) mg/dl Creatinine 1.22 H (0.6-1.2) mg/dl Est Cr Clr Drug Dosing 56.6 ml/min Est GFR ( Amer) 67.9 Est GFR (Non-Af Amer) 58.6 BUN/Creatinine Ratio 23.5 H (10-20) Glucose 164 H (70-99) mg/dl Osmolality (280-300) mOsm/kg Lactate 1.5 (0.4-2.0) mmol/L Calcium 8.9 (8.5-10.1) mg/dl Magnesium 2.0 (1.8-2.4) mg/dl Total Bilirubin 1.4 H (0.2-1) mg/dl AST 147 H (15-37) U/L ALT 137 H (12-78) U/L Alkaline Phosphatase 107 (45-117) U/L Troponin I < 0.015 (0-0.045) ng/ml C-Reactive Protein 1.15 H (0-0.29) mg/dl Total Protein 9.2 H (6.4-8.2) gm/dl Albumin 4.2 (3.4-5.0) gm/dl Globulin 5.0 H (2.5-4.0) gm/dl Albumin/Globulin Ratio 0.8 L (0.9-2) Amylase 102 (25-115) U/L Lipase 1465 H (73-393) U/L Procalcitonin (0-0.5) ng/ml TSH (0.300-4.500) uIu/ml Urine Color Urine Appearance (Clear) Urine pH (4.5-7.5) Ur Specific [place] (1.000-1.030) Urine Protein (Negative) Urine Glucose (UA) (Negative) Urine Ketones (Negative) Urine Blood (Negative) Urine Nitrite (Negative) Urine Bilirubin (Negative) Urine Urobilinogen (Negative) Ur Leukocyte Esterase (Negative) Urine WBC (Auto) (0-5) /hpf Urine RBC (Auto) (0-4) /hpf U Hyaline Cast (Auto) (0-5) /lpf U Epithel Cells (Auto) (0-5) /lpf Urine Bacteria (Auto) (Negative) POC Ur Test (NEG) Ethyl Alcohol mg/dL (0-3) mg/dl 04/29/19 04/29/19 04/29/19 Range/Units 17:56 17:59 18:10 WBC (4.8-10.8) K/uL RBC (4.2-5.4) M/uL Hgb (12.0-16.0) g/dL Hct (37-47) % MCV (80-100) fL MCH (25-34) pg MCHC (32-36) g/dL RDW Std Deviation (36.4-46.3) fL RDW Coeff of Arnold (11.5-14.5) % Plt Count (130-400) K/uL MPV (7.4-10.4) fL Immature Gran % (Auto) % Neut % (Auto) % Lymph % (Auto) % [place] % (Auto) % Eos % (Auto) % Baso % (Auto) % Immature Gran # (Auto) (0.00-0.02) K/uL Neut # (Auto) (1.4-6.5) K/uL Lymph # (Auto) (1.2-3.4) K/uL [place] # (Auto) (0.11-0.59) K/uL Eos # (Auto) (0-0.5) K/uL Baso # (Auto) (0-0.2) K/uL ESR (0-21) mm/hr PT (9.0-12.0) Seconds INR (0.9-1.1) APTT (21.0-31.0) Seconds PTT Ratio D-Dimer (0-500) ug/L FEU VBG pH 7.34 L (7.36-7.41) VBG pCO2 20 L (38-50) mmHg VBG pO2 48 mmHg VBG HCO3 10 mmol/L VBG O2 Saturation 85.3 % VBG Base Excess -12.7 mEq/L Barometric Pressure 732.6 mm/Hg Sodium (136-145) mmol/L Potassium (3.5-5.1) mmol/L Chloride (98-107) mmol/L Carbon Dioxide (21-32) mmol/L Anion Gap (3-11) BUN (7-18) mg/dl Creatinine (0.6-1.2) mg/dl Est Cr Clr Drug Dosing ml/min Est GFR ( Amer) Est GFR (Non-Af Amer) BUN/Creatinine Ratio (10-20) Glucose (70-99) mg/dl Osmolality (280-300) mOsm/kg Lactate (0.4-2.0) mmol/L Calcium (8.5-10.1) mg/dl Magnesium (1.8-2.4) mg/dl Total Bilirubin (0.2-1) mg/dl AST (15-37) U/L ALT (12-78) U/L Alkaline Phosphatase (45-117) U/L Troponin I (0-0.045) ng/ml C-Reactive Protein (0-0.29) mg/dl Total Protein (6.4-8.2) gm/dl Albumin (3.4-5.0) gm/dl Globulin (2.5-4.0) gm/dl Albumin/Globulin Ratio (0.9-2) Amylase (25-115) U/L Lipase (73-393) U/L Procalcitonin (0-0.5) ng/ml TSH 1.500 (0.300-4.500) uIu/ml Urine Color Fine Urine Appearance Slightly Cloudy A (Clear) Urine pH (4.5-7.5) Ur Specific [place] 1.032 H (1.000-1.030) Urine Protein (Negative) Urine Glucose (UA) (Negative) Urine Ketones (Negative) Urine Blood (Negative) Urine Nitrite (Negative) Urine Bilirubin (Negative) Urine Urobilinogen (Negative) Ur Leukocyte Esterase (Negative) Urine WBC (Auto) 10-30 H (0-5) /hpf Urine RBC (Auto) 5-10 H (0-4) /hpf U Hyaline Cast (Auto) 10-30 H (0-5) /lpf U Epithel Cells (Auto) 10-20 H (0-5) /lpf Urine Bacteria (Auto) 1+ H (Negative) POC Ur Test (NEG) Ethyl Alcohol mg/dL (0-3) mg/dl 04/29/19 04/29/19 04/29/19 Range/Units 22:05 22:05 22:05 WBC (4.8-10.8) K/uL RBC (4.2-5.4) M/uL Hgb (12.0-16.0) g/dL Hct (37-47) % MCV (80-100) fL MCH (25-34) pg MCHC (32-36) g/dL RDW Std Deviation (36.4-46.3) fL RDW Coeff of Arnold (11.5-14.5) % Plt Count (130-400) K/uL MPV (7.4-10.4) fL Immature Gran % (Auto) % Neut % (Auto) % Lymph % (Auto) % Bulloch % (Auto) % Eos % (Auto) % Baso % (Auto) % Immature Gran # (Auto) (0.00-0.02) K/uL Neut # (Auto) (1.4-6.5) K/uL Lymph # (Auto) (1.2-3.4) K/uL Bulloch # (Auto) (0.11-0.59) K/uL Eos # (Auto) (0-0.5) K/uL Baso # (Auto) (0-0.2) K/uL ESR (0-21) mm/hr PT (9.0-12.0) Seconds INR (0.9-1.1) APTT (21.0-31.0) Seconds PTT Ratio D-Dimer (0-500) ug/L FEU VBG pH (7.36-7.41) VBG pCO2 (38-50) mmHg VBG pO2 mmHg VBG HCO3 mmol/L VBG O2 Saturation % VBG Base Excess mEq/L Barometric Pressure mm/Hg Sodium 136 D (136-145) mmol/L Potassium 3.5 (3.5-5.1) mmol/L Chloride 106 (98-107) mmol/L Carbon Dioxide 13 L (21-32) mmol/L Anion Gap 17.0 H (3-11) BUN 19 H (7-18) mg/dl Creatinine 0.77 D (0.6-1.2) mg/dl Est Cr Clr Drug Dosing 89.7 ml/min Est GFR ( Amer) 118.4 Est GFR (Non-Af Amer) 102.2 BUN/Creatinine Ratio 24.7 H (10-20) Glucose 108 H (70-99) mg/dl Osmolality 290 (280-300) mOsm/kg Lactate (0.4-2.0) mmol/L Calcium 7.4 L D (8.5-10.1) mg/dl Magnesium (1.8-2.4) mg/dl Total Bilirubin 0.8 D (0.2-1) mg/dl AST 96 H (15-37) U/L ALT 91 H (12-78) U/L Alkaline Phosphatase 80 (45-117) U/L Troponin I (0-0.045) ng/ml C-Reactive Protein (0-0.29) mg/dl Total Protein 6.3 L D (6.4-8.2) gm/dl Albumin 2.8 L (3.4-5.0) gm/dl Globulin 3.5 (2.5-4.0) gm/dl Albumin/Globulin Ratio 0.8 L (0.9-2) Amylase (25-115) U/L Lipase (73-393) U/L Procalcitonin (0-0.5) ng/ml TSH (0.300-4.500) uIu/ml Urine Color Urine Appearance (Clear) Urine pH (4.5-7.5) Ur Specific [place] (1.000-1.030) Urine Protein (Negative) Urine Glucose (UA) (Negative) Urine Ketones (Negative) Urine Blood (Negative) Urine Nitrite (Negative) Urine Bilirubin (Negative) Urine Urobilinogen (Negative) Ur Leukocyte Esterase (Negative) Urine WBC (Auto) (0-5) /hpf Urine RBC (Auto) (0-4) /hpf U Hyaline Cast (Auto) (0-5) /lpf U Epithel Cells (Auto) (0-5) /lpf Urine Bacteria (Auto) (Negative) POC Ur Test (NEG) Ethyl Alcohol mg/dL < 3.0 (0-3) mg/dl Imaging Data Radiologist's Impression: Radiology results as stated below per my review and the radiologist's interpretation: XR chest 1V portable CLINICAL HISTORY: Sepsis COMPARISON STUDY: Chest radiograph October 04, 2018. FINDINGS: Lung volumes are normal. Lungs are clear. There is no pneumothorax or pleural effusion. Cardiac size is normal. Mediastinal contours are normal. There is no evidence for pulmonary edema. IMPRESSION: No acute cardiopulmonary findings. Electronically signed by: Pedro Pablo Moore M.D. 04/29/2019 6:[address] ANGIOGRAM OF THE CHEST CLINICAL HISTORY: Atypical chest pain and shortness of breath. Nausea, vomiting. Possible acute pulmonary embolism. COMPARISON STUDY: The 2018 TECHNIQUE: Following the IV administration of 118 mL of Optiray-320, CT angiogram of the thorax was performed from the thoracic inlet to the lung bases utilizing the pulmonary embolus protocol. Images are reviewed in the axial, sagittal, and coronal planes. IV contrast was administered without complication. MIP imaging was performed. A dose lowering technique was utilized adhering to the principles of ALARA. CT DOSE: FINDINGS: There is severe hepatic steatosis. There is a persistent 11 mm hypodensity within the right hepatic lobe. No pathologically enlarged axillary mediastinal or hilar lymph nodes were visualized. There was no evidence of thoracic aortic dilatation. There were no pulmonary artery filling defects to indicate acute pulmonary embolism. No pleural effusions are visualized. There was no evidence of focal pulmonary consolidation. IMPRESSION: 1. No acute intrathoracic findings 2. No evidence of acute pulmonary embolism. 3. No evidence of focal pulmonary consolidation 4. Severe hepatic steatosis Electronically signed by: Ritesh Stratton M.D. 04/29/2019 7:[address] abd pelvis IV con only CLINICAL HISTORY: Right-sided abdominal pain COMPARISON STUDY: 03/02/2019 TECHNIQUE: The patient was scanned in a dynamic helical fashion during intravenous administration of 118 cc of Optiray 320. A dose lowering technique was utilized adhering to the principles of ALARA. CT DOSE: 635.27 mGy.cm FINDINGS: Lower chest: The heart is normal in size and configuration, without pericardial effusion. The lung bases and pleural spaces are clear. Liver: There is persistent hepatic steatosis. There is a very subtle nonspecific 14 mm hypodensity within the central right hepatic lobe, in retrospect, unchanged from the prior study Gallbladder: Unremarkable. Spleen: Normal in size and attenuation. Pancreas: Unremarkable. Adrenal glands: Unremarkable. Kidneys: No solid renal masses are visualized. There is no hydronephrosis. There is slight heterogeneous renal enhancement. While likely secondary to the phase of enhancement, clinical correlation is recommended to exclude pyelonephritis Bowel: There are mildly prominent fluid-filled jejunal loops with borderline wall thickening. An ileus or enteritis is favored over a partial small bowel obstruction. Clinical follow-up is advocated Peritoneum: There is no intraperitoneal free air or abdominal ascites. Vasculature: The abdominal aorta is normal in course and caliber. Adenopathy: None. Pelvic viscera: There is a calcified uterine fibroid. A 24 mm left ovarian follicle. Skeletal structures: No destructive osseous lesions are seen. IMPRESSION: 1. Mildly prominent fluid-filled jejunal loops of borderline wall thickening. An ileus or enteritis is favored over a partial small bowel obstruction. Clinical follow-up is advocated 2. Severe hepatic steatosis 3. Stable very subtle 14 mm hypodensity within the central right hepatic lobe 4. Calcified uterine fibroid 24 mm left ovarian follicle 5. Slight heterogeneity in renal enhancement. While likely secondary to the phase of enhancement, clinical correlation is recommended to exclude hilar fractures Electronically signed by: Ritesh Stratton M.D. 04/29/2019 7:[address] head/brain wo con CLINICAL HISTORY: Intractable headache COMPARISON STUDY: No previous studies for comparison. TECHNIQUE: Axial CT of the brain is performed from the vertex to the skull base. IV contrast was not administered for this examination. A dose lowering technique was utilized adhering to the principles of ALARA. CT DOSE: 537.48 mGy.cm FINDINGS: No intra or extra-axial mass lesions are visualized. There is no CT evidence of acute cortical infarction. There is no evidence of midline shift. There is no acute hemorrhage. No calvarial fractures are visualized. There is no evidence of pathologic ventricular dilatation. There is no evidence of acute sinusitis IMPRESSION: No acute intracranial findings Electronically signed by: Ritesh Stratton M.D. 04/29/2019 9:59 PM ECG Data Attestation: I personally reviewed and interpreted this ECG as follows: Indication: chest pain Rate (beats per minute): 104 Rhythm: sinus tachycardia Findings: no PAC, no PVC, no ST depression, no ST elevation and no ectopy Comparison ECG Date: from (10/05/2018) Change: the following changes noted (atrial enlargment) Blood Pressure Blood Pressure Findings: Elevated blood pressure Blood Pressure Disposition: further management by hospitalist MDM Narrative The patient is a 33-year-old female who presented to the emergency department with multiple complaints. She complained of chest pain as well as abdominal pain. She also complained of headache. The patient was found to have significant acidosis. She was reevaluated multiple times. She was treated with multiple fluid boluses. I discussed the patient's laboratory and radiographic studies with her. Given her complaints and findings I also discussed her case with the on-call [facility] hospitalist group. They have agreed to evaluate the patient in the emergency department for further management disposition. The patient was feeling somewhat improved on repeat physical examination. Impression & Plan Pancreatitis, Metabolic acidosis, Chest pain, Abdominal pain, Headache, Dehydration Discharge Plan Visit Data Chief Complaint: Illness Stated Complaint: FLANK PAIN, SOB ED Provider: Michael Garcia Discharge Problem: Pancreatitis, Metabolic acidosis, Chest pain, Abdominal pain, Headache, Dehydration Patient Disposition: Being Evaluated by Hospitalist Discharge Instructions Interventions: ED Discharge Assessment Last Done: 04/29/19 23:51 Forms Stand Alone Forms: My [facility] [place] [employer] Prescriptions Prescriptions: No Action albuterol sulfate [Ventolin HFA] 90 mcg/actuation Hfa Aerosol Inhaler 1 puff INHALATION Q6H PRN (Reason: SOB) RF: 0 insulin lispro 100 unit/mL insulin pen See Rx Instructions .ROUTE .COMPLEX RF: 0 Lantus Solostar U-100 Insulin 100 unit/mL (3 mL) insulin pen See Rx Instructions .ROUTE .COMPLEX RF: 0 nifedipine [Adalat CC] 30 mg Tablet Extended Release 30 mg PO DAILY Qty: 30 RF: 2 Referrals Referrals: Harinder Nathan DO [Primary Care Provider] - Discharge Problem: Pancreatitis Qualifiers: Chronicity: acute Pancreatitis type: unspecified pancreatitis type Acute pancreatitis complication: unspecified Qualified Code(s): K85.90 - Acute pancreatitis without necrosis or infection, unspecified Chest pain Qualifiers: Chest pain type: unspecified Qualified Code(s): R07.9 - Chest pain, unspecified Abdominal pain Qualifiers: Abdominal location: unspecified location Qualified Code(s): R10.9 - Unspecified abdominal pain Headache Qualifiers: Headache type: unspecified Headache chronicity pattern: unspecified pattern Intractability: not intractable Qualified Code(s): R51 - Headache The christine's documentation has been prepared under my direction and personally reviewed by me in its entirety. I confirm that the note above accurately reflects all work, treatment, procedures, and medical decision making performed by me.
[2019-04-29 18:14] LABS: Partial Thromboplastin Ratio 1.1; Partial Thromboplastin Time 29.2 Seconds (21.0-31.0); Prothrombin Time 10.3 Seconds (9.0-12.0)
--- NOTE | 2019-04-29 18:14 | XRay Report ---
XR chest 1V portable CLINICAL HISTORY: Sepsis COMPARISON STUDY: Chest radiograph October 04, 2018. FINDINGS: Lung volumes are normal. Lungs are clear. There is no pneumothorax or pleural effusion. Car diac size is normal. Mediastinal contours are normal. There is no evidence for pulmonary edema. IMPRESSION: No acute cardiopulmonary findings. Electronically signed by: Pedro Pablo Moore M.D. 04/29/2019 6:13 PM
[2019-04-29 18:17] LABS: Base Excess VBG -12.7 mEq/L; Oxygen Saturation VBG 85.3 %; pH VBG 7.34 (7.36-7.41)
[2019-04-29 18:23] LABS: D Dimer 1100 ug/L FEU (0-500)
[2019-04-29 18:26] LABS: Albumin Level 4.2 gm/dl (3.4-5.0); BUN Creatinine Ratio 23.5 (10-20); C Reactive Protein 1.15 mg/dl (0-0.29); Calcium 8.9 mg/dl (8.5-10.1); Creatinine Clr Calc Pharmacy 56.6 ml/min; Est GFR (African American) 67.9; Est GFR (Non-African American) 58.6; Potassium 3.6 mmol/L (3.5-5.1)
[2019-04-29 18:31] LABS: Albumin Globulin Ratio 0.8 (0.9-2); Bilirubin,Total 1.4 mg/dl (0.2-1); Total Protein 9.2 gm/dl (6.4-8.2)
[2019-04-29 18:47] LABS: Appearance Urine Slightly Cloudy (Clear); Color Urine Orange; Ictotest Urine Positive (Negative); Specific Gravity Urine 1.032 (1.000-1.030)
[2019-04-29 18:50] LABS: Bacteria Urine Automated 1+ (Negative)
[2019-04-29] MEDS ORDERED: OPTIRAY 320 125ml IV PRN (18:59)
--- NOTE | 2019-04-29 19:10 | CT Scan Report ---
CT ANGIOGRAM OF THE CHEST CLINICAL HISTORY: Atypical chest pain and shortness of breath. Nausea, vomiting. Possible acute pulmo nary embolism. COMPARISON STUDY: The 2018 TECHNIQUE: Following the IV administration of 118 mL of Optiray-320, CT angiogram of the thorax was p erformed from the thoracic inlet to the lung bases utilizing the pulmonary embolus protocol. Images a re reviewed in the axial, sagittal, and coronal planes. IV contrast was administered without complica tion. MIP imaging was performed. A dose lowering technique was utilized adhering to the principles o f ALARA. CT DOSE: FINDINGS: There is severe hepatic steatosis. There is a persistent 11 mm hypodensity within the right hepatic l obe. No pathologically enlarged axillary mediastinal or hilar lymph nodes were visualized. There was no evidence of thoracic aortic dilatation. There were no pulmonary artery filling defects to indicate acute pulmonary embolism. No pleural effusions are visualized. There was no evidence of focal pulmonary consolidation. IMPRESSION: 1. No acute intrathoracic findings 2. No evidence of acute pulmonary embolism. 3. No evidence of focal pulmonary consolidation 4. Severe hepatic steatosis Electronically signed by: Ritesh Stratton M.D. 04/29/2019 7:09 PM
--- NOTE | 2019-04-29 19:19 | CT Scan Report ---
CT abd pelvis IV con only CLINICAL HISTORY: Right-sided abdominal pain COMPARISON STUDY: 03/02/2019 TECHNIQUE: The patient was scanned in a dynamic helical fashion during intravenous administration of 118 cc of Optiray 320. A dose lowering technique was utilized adhering to the principles of ALARA. CT DOSE: 635.27 mGy.cm FINDINGS: Lower chest: The heart is normal in size and configuration, without pericardial effusion. The lung ba ses and pleural spaces are clear. Liver: There is persistent hepatic steatosis. There is a very subtle nonspecific 14 mm hypodensity wi thin the central right hepatic lobe, in retrospect, unchanged from the prior study Gallbladder: Unremarkable. Spleen: Normal in size and attenuation. Pancreas: Unremarkable. Adrenal glands: Unremarkable. Kidneys: No solid renal masses are visualized. There is no hydronephrosis. There is slight heterogene ous renal enhancement. While likely secondary to the phase of enhancement, clinical correlation is re commended to exclude pyelonephritis Bowel: There are mildly prominent fluid-filled jejunal loops with borderline wall thickening. An ileu s or enteritis is favored over a partial small bowel obstruction. Clinical follow-up is advocated Peritoneum: There is no intraperitoneal free air or abdominal ascites. Vasculature: The abdominal aorta is normal in course and caliber. Adenopathy: None. Pelvic viscera: There is a calcified uterine fibroid. A 24 mm left ovarian follicle. Skeletal structures: No destructive osseous lesions are seen. IMPRESSION: 1. Mildly prominent fluid-filled jejunal loops of borderline wall thickening. An ileus or enteritis i s favored over a partial small bowel obstruction. Clinical follow-up is advocated 2. Severe hepatic steatosis 3. Stable very subtle 14 mm hypodensity within the central right hepatic lobe 4. Calcified uterine fibroid 24 mm left ovarian follicle 5. Slight heterogeneity in renal enhancement. While likely secondary to the phase of enhancement, cli nical correlation is recommended to exclude hilar fractures Electronically signed by: Ritesh Stratton M.D. 04/29/2019 7:17 PM
[2019-04-29] MEDS ORDERED: cefTRIAXone SODIUM 1,000 MG/50 ML BAG IV STA (19:33)
[2019-04-29] MEDS ORDERED: POTASSIUM CHLORIDE 20 MEQ TABCR PO STA (20:28)
--- NOTE | 2019-04-29 22:00 | CT Scan Report ---
CT head/brain wo con CLINICAL HISTORY: Intractable headache COMPARISON STUDY: No previous studies for comparison. TECHNIQUE: Axial CT of the brain is performed from the vertex to the skull base. IV contrast was not administered for this examination. A dose lowering technique was utilized adhering to the principles of ALARA. CT DOSE: 537.48 mGy.cm FINDINGS: No intra or extra-axial mass lesions are visualized. There is no CT evidence of acute cortical infarc tion. There is no evidence of midline shift. There is no acute hemorrhage. No calvarial fractures ar e visualized. There is no evidence of pathologic ventricular dilatation. There is no evidence of acute sinusitis IMPRESSION: No acute intracranial findings Electronically signed by: Ritesh Stratton M.D. 04/29/2019 9:59 PM
[2019-04-29 22:47] LABS: Albumin Globulin Ratio 0.8 (0.9-2); Albumin Level 2.8 gm/dl (3.4-5.0); BUN Creatinine Ratio 24.7 (10-20); Bilirubin,Total 0.8 mg/dl (0.2-1); Calcium 7.4 mg/dl (8.5-10.1); Creatinine Clr Calc Pharmacy 89.7 ml/min; Est GFR (African American) 118.4; Est GFR (Non-African American) 102.2; Globulin 3.5 gm/dl (2.5-4.0); Potassium 3.5 mmol/L (3.5-5.1); Total Protein 6.3 gm/dl (6.4-8.2)
--- NOTE | 2019-04-29 23:21 | History & Physical Report ---
Date of Service April 29, 2019 Assessment & Plan (1) Pancreatitis: Recurrent episodes ? Alcohol abuse AGMA, ARF secondary to illness HTN slightly elevated hx gestational diabetes, well controlled as of recent outpatient hemoglobin A1c of 5.6 last September 2018 Intermittent insulin coverage at home post . ADD, stable off medications as per patient Asymptomatic pyuria, no sepsis asthma, stable despite dry cough symptoms not typical for asthma attack past tobacco abuse GMF Bowel rest Monitor creatinine response to IV fluids Patient counseled to avoid drinking given propensity for recurrent pancreatitis episodes. DT precautions GI consult RE recurrent pancreatitis Follow urine cultures, hold off on antibiotics for now Supportive management for cough symptoms, antitussives, mucolytics prn. ISS BG goal 1 40-1 80, update hemoglobin A1c DVT prophylaxis. Lovenox subcu Full code History of Present Illness Chief Complaint: Abdominal pain, flank pain Primary Care Provider: Harinder Nathan, DO History obtained from patient and records. Medical history significant for gestational diabetes, HTN, ADD as per records, asthma, past tobacco abuse Recent confinement September 2018 for DKA in the setting of gestational diabetes mellitus. Patient also found to have pancreatitis attributed to NSAIDs and alcohol use, pancreatitis. Few days history of chest/subcostal pain, shortness of breath, dry cough symptoms causing headache. Patient also had flank discomfort without hematuria/dysuria symptoms. Nausea, emesis symptoms. Admits to drinking alcohol last week just for 1 day, not excessive however. At the ER, patient received Ceftriaxone for possible UTI. 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 Allergies Allergy/AdvReac Type Severity Reaction Status Date / Time bee venom protein (honey bee) Allergy Unknown ANAPHYLAXIS Verified 04/29/19 19:14 Home Medications Home Medications Medication Instructions Recorded Confirmed Type albuterol sulfate [Ventolin HFA] 1 puff INHALATION Q6H PRN 08/09/18 04/29/19 History insulin glargine [Lantus Solostar See Rx Instructions .ROUTE .COMPLEX 10/07/18 04/29/19 History U-100 Insulin] insulin lispro See Rx Instructions .ROUTE .COMPLEX 10/07/18 04/29/19 History nifedipine [Adalat CC] 30 mg PO DAILY #30 tab 10/07/18 04/29/19 Rx Past Med/Surg History Medical History Asthma Cardiac murmur CONGENITAL -- BENIGN. 10/09/15 echo: The examination is adequate to evaluate the referral indication. The qualitative LV ejection fraction is 60-64% (normal). The left ventricular diastolic function is normal. No significant valvular disease is present. Depression H/O Anxiety H/O GERD (gastroesophageal reflux disease) R/T Scoliosis MINOR Gestational diabetes Diabetes Surgical History History of adenoidectomy History of tonsillectomy History of section x 2 Family History Other Adopted Social History Preferred Language: Estonian 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: Effective Maintenance Team Leader Required: No Beliefs That Will Affect Care: None Current Living Situation: Spouse Other Information That Helps Us Care for You: No Feels Safe at Home: Yes Safety Concerns: Feels Safe At This Time Smoking Status: Current some day smoker Tobacco Type: cigarettes ; Cigarettes Per Day: 2-3 per day, "social smoker" ; Do You Dip or Chew Tobacco: No ; Second Hand Exposure: No ; Hx Alcohol Use: Yes Alcohol type: wine and hard liquor Hx Substance Use: No Review of Systems Review of Systems: As per HPI, all 10 systems reviewed, all other ROS negative Physical Exam Physical Exam: GENERAL: Slightly uncomfortable, no respiratory distress SKIN: Pallor, warm HEENT: Pale palpebral conjunctivae, no ptosis, dry buccal mucosa NECK : Supple, no tenderness CHEST : Decreased breath sounds, no tenderness HEART : Tachycardic, no obvious murmurs ABDOMEN: Some distention, epigastric tenderness EXTREMITIES : No LE swelling/tenderness, no other conspicuous deformities noted NEUROLOGIC : Coherent, no facial asymmetry, no other gross focality Results & Data Vital Signs (Past 12 Hours) Vital Signs Temp Pulse Pulse Resp BP BP Pulse Ox 04/29/19 23:15 86 20 100 04/29/19 23:00 88 25 H 146/106 H 100 04/29/19 22:45 85 21 100 04/29/19 22:30 101 H 20 151/103 H 100 04/29/19 22:15 87 21 100 04/29/19 22:02 87 18 152/102 H 100 04/29/19 21:45 105 H 18 100 04/29/19 21:30 94 H 23 163/98 H 100 04/29/19 21:15 98 H 18 100 04/29/19 21:01 82 21 100 04/29/19 21:00 81 21 157/110 H 100 04/29/19 20:45 92 H 22 100 04/29/19 20:34 87 16 142/100 H 04/29/19 20:33 89 21 142/100 H 100 04/29/19 20:15 89 23 100 04/29/19 20:13 86 24 157/104 H 100 04/29/19 20:00 87 17 100 04/29/19 19:45 86 21 100 04/29/19 19:30 80 21 100 04/29/19 19:15 86 21 04/29/19 19:13 82 20 157/112 H 04/29/19 19:10 89 23 157/112 H 98 04/29/19 18:09 105 H 20 157/109 H 98 04/29/19 17:34 92 H 98 04/29/19 16:24 36.7 C 130 H 22 138/101 H 100 Laboratory Results Laboratory Results WBC 6.39 K/uL (4.8-10.8) 04/29/19 16:37 RBC 4.48 M/uL (4.2-5.4) 04/29/19 16:37 Hgb 15.9 g/dL (12.0-16.0) 04/29/19 16:37 Hct 44.4 % (37-47) 04/29/19 16:37 MCV 99.1 fL (80-100) 04/29/19 16:37 MCH 35.5 pg (25-34) H 04/29/19 16:37 MCHC 35.8 g/dL (32-36) 04/29/19 16:37 RDW Std Deviation 42.8 fL (36.4-46.3) 04/29/19 16:37 RDW Coeff of [place] 11.9 % (11.5-14.5) 04/29/19 16:37 Plt Count 158 K/uL (130-400) 04/29/19 16:37 MPV 11.2 fL (7.4-10.4) H 04/29/19 16:37 Immature Gran % (Auto) 0.2 % 04/29/19 16:37 Neut % (Auto) 72.7 % 04/29/19 16:37 Lymph % (Auto) 20.0 % 04/29/19 16:37 [place] % (Auto) 6.1 % 04/29/19 16:37 Eos % (Auto) 0.8 % 04/29/19 16:37 Baso % (Auto) 0.2 % 04/29/19 16:37 Immature Gran # (Auto) 0.01 K/uL (0.00-0.02) 04/29/19 16:37 Neut # (Auto) 4.65 K/uL (1.4-6.5) 04/29/19 16:37 Lymph # (Auto) 1.28 K/uL (1.2-3.4) 04/29/19 16:37 [place] # (Auto) 0.39 K/uL (0.11-0.59) 04/29/19 16:37 Eos # (Auto) 0.05 K/uL (0-0.5) 04/29/19 16:37 Baso # (Auto) 0.01 K/uL (0-0.2) 04/29/19 16:37 ESR 77 mm/hr (0-21) H 04/29/19 16:37 PT 10.3 Seconds (9.0-12.0) 04/29/19 16:37 INR 1.0 (0.9-1.1) 04/29/19 16:37 APTT 29.2 Seconds (21.0-31.0) 04/29/19 16:37 PTT Ratio 1.1 04/29/19 16:37 D-Dimer 1100 ug/L FEU (0-500) H* 04/29/19 16:37 VBG pH 7.34 (7.36-7.41) L 04/29/19 17:59 VBG pCO2 20 mmHg (38-50) L 04/29/19 17:59 VBG pO2 48 mmHg 04/29/19 17:59 VBG HCO3 10 mmol/L 04/29/19 17:59 VBG O2 Saturation 85.3 % 04/29/19 17:59 VBG Base Excess -12.7 mEq/L 04/29/19 17:59 Barometric Pressure 732.6 mm/Hg 04/29/19 17:59 Sodium 136 mmol/L (136-145) D 04/29/19 22:05 Potassium 3.5 mmol/L (3.5-5.1) 04/29/19 22:05 Chloride 106 mmol/L (98-107) 04/29/19 22:05 Carbon Dioxide 13 mmol/L (21-32) L 04/29/19 22:05 Anion Gap 17.0 (3-11) H 04/29/19 22:05 BUN 19 mg/dl (7-18) H 04/29/19 22:05 Creatinine 0.77 mg/dl (0.6-1.2) D 04/29/19 22:05 Est Cr Clr Drug Dosing 89.7 ml/min 04/29/19 22:05 Est GFR ( Amer) 118.4 04/29/19 22:05 Est GFR (Non-Af Amer) 102.2 04/29/19 22:05 BUN/Creatinine Ratio 24.7 (10-20) H 04/29/19 22:05 Glucose 108 mg/dl (70-99) H 04/29/19 22:05 Osmolality 290 mOsm/kg (280-300) 04/29/19 22:05 Lactate 1.5 mmol/L (0.4-2.0) 04/29/19 17:56 Calcium 7.4 mg/dl (8.5-10.1) L D 04/29/19 22:05 Magnesium 2.0 mg/dl (1.8-2.4) 04/29/19 17:56 Total Bilirubin 0.8 mg/dl (0.2-1) D 04/29/19 22:05 AST 96 U/L (15-37) H 04/29/19 22:05 ALT 91 U/L (12-78) H 04/29/19 22:05 Alkaline Phosphatase 80 U/L (45-117) 04/29/19 22:05 Troponin I < 0.015 ng/ml (0-0.045) 04/29/19 17:56 C-Reactive Protein 1.15 mg/dl (0-0.29) H 04/29/19 17:56 Total Protein 6.3 gm/dl (6.4-8.2) L D 04/29/19 22:05 Albumin 2.8 gm/dl (3.4-5.0) L 04/29/19 22:05 Globulin 3.5 gm/dl (2.5-4.0) 04/29/19 22:05 Albumin/Globulin Ratio 0.8 (0.9-2) L 04/29/19 22:05 Amylase 102 U/L (25-115) 04/29/19 17:56 Lipase 1465 U/L (73-393) H 04/29/19 17:56 Procalcitonin 0.26 ng/ml (0-0.5) 04/29/19 16:37 TSH 1.500 uIu/ml (0.300-4.500) 04/29/19 17:56 Urine Color [place] 04/29/19 18:10 Urine Appearance Slightly Cloudy (Clear) A 04/29/19 18:10 Urine pH (4.5-7.5) 04/29/19 18:10 Ur Specific [place] 1.032 (1.000-1.030) H 04/29/19 18:10 Urine Protein (Negative) 04/29/19 18:10 Urine Glucose (UA) (Negative) 04/29/19 18:10 Urine Ketones (Negative) 04/29/19 18:10 Urine Blood (Negative) 04/29/19 18:10 Urine Nitrite (Negative) 04/29/19 18:10 Urine Bilirubin (Negative) 04/29/19 18:10 Urine Urobilinogen (Negative) 04/29/19 18:10 Ur Leukocyte Esterase (Negative) 04/29/19 18:10 Urine WBC (Auto) 10-30 /hpf (0-5) H 04/29/19 18:10 Urine RBC (Auto) 5-10 /hpf (0-4) H 04/29/19 18:10 U Hyaline Cast (Auto) 10-30 /lpf (0-5) H 04/29/19 18:10 U Epithel Cells (Auto) 10-20 /lpf (0-5) H 04/29/19 18:10 Urine Bacteria (Auto) 1+ (Negative) H 04/29/19 18:10 POC Ur Test NEG (NEG) 04/29/19 16:42 Ethyl Alcohol mg/dL < 3.0 mg/dl (0-3) 04/29/19 22:[address] head: No acute intracranial findings CT chest: 1. No acute intrathoracic findings 2. No evidence of acute pulmonary embolism. 3. No evidence of focal pulmonary consolidation 4. Severe hepatic steatosis CT abdomen pelvis: 1. Mildly prominent fluid-filled jejunal loops of borderline wall thickening. An ileus or enteritis is favored over a partial small bowel obstruction. Clinical follow-up is advocated 2. Severe hepatic steatosis 3. Stable very subtle 14 mm hypodensity within the central right hepatic lobe 4. Calcified uterine fibroid 24 mm left ovarian follicle 5. Slight heterogeneity in renal enhancement. While likely secondary to the phase of enhancement, clinical correlation is recommended to exclude hilar fractures. EKG as per my interpretation rate 105, sinus tachycardia, LAE, T wave flattening inferior leads (1) Pancreatitis Acute pancreatitis complication: unspecified Chronicity: acute Pancreatitis type: unspecified pancreatitis type Qualified Code(s): K85.90 - Acute pancreatitis without necrosis or infection, unspecified
[2019-04-29] MEDS ORDERED: KETOROLAC TROMETHAMINE 15 MG/ML VIAL IV ONE (23:27)
[2019-04-30] MEDS ORDERED: GLUCAGON FOR INJ 1 MG VIAL SQ PRN (00:58)
[2019-04-30] MEDS ORDERED: THIAMINE HCL 100 MG in SYRINGE 9 ML IV STA (00:58)
[2019-04-30] MEDS ORDERED: PROMETHAZINE HCL 12.5 MG in SODIUM CHLORIDE 0.9% 50 ML IV PRN (00:58)
[2019-04-30] MEDS ORDERED: GLUCOSE 40% GEL 15 GM TUBE PO PRN (00:58)
[2019-04-30] MEDS ORDERED: LORazepam 0.5 MG/1 ML VIAL IV PRN (00:58)
[2019-04-30] MEDS ORDERED: GLUCOSE 10 TABS/TUBE PO PRN (00:58)
[2019-04-30] MEDS ORDERED: INSULIN ASPART 100 UNITS/ML 3 ML PEN SC SCH ×2 (00:58→06:00)
[2019-04-30] MEDS ORDERED: DEXTROSE 50% 50 ML SYRINGE IV PRN (00:58)
[2019-04-30] MEDS ORDERED: CALCIUM GLUCONATE 10% 1,000 MG in SODIUM CHLORIDE 0.9% 50 ML IV STA (00:58)
[2019-04-30] MEDS ORDERED: CARBOHYDRATES FOR HYPOGLYCEMIA PO PRN (00:58)
[2019-04-30] MEDS: guaiFENesin 600 MG TABCR PO SCH ×3 (01:27→20:43)
[2019-04-30] MEDS: NIFEdipine EXTENDED REL 30 MG TABCR PO SCH (01:28)
[2019-04-30] MEDS ORDERED: LACTATED RINGER'S 1,000 ML IV SCH (01:30)
[2019-04-30] MEDS: OXYCODONE HCL IR 5 MG TAB (IMMEDIATE RELEASE) PO PRN ×3 (01:33→22:23)
[2019-04-30 04:32] LABS: Base Excess VBG -9.3 mEq/L; Oxygen Saturation VBG 93.7 %; pH VBG 7.39 (7.36-7.41)
[2019-04-30 04:36] LABS: Albumin Level 2.6 gm/dl (3.4-5.0); BUN Creatinine Ratio 24.6 (10-20); Calcium 7.5 mg/dl (8.5-10.1); Creatinine Clr Calc Pharmacy 128.1 ml/min; Est GFR (African American) 143.8; Est GFR (Non-African American) 124.1; Potassium 3.5 mmol/L (3.5-5.1)
[2019-04-30 04:39] LABS: Albumin Globulin Ratio 0.8 (0.9-2); Bilirubin,Total 0.9 mg/dl (0.2-1); Globulin 3.2 gm/dl (2.5-4.0); Total Protein 5.8 gm/dl (6.4-8.2)
[2019-04-30] MEDS ORDERED: LACTATED RINGER'S 1,000 ML IV ONE (05:11)
[2019-04-30 05:22] LABS: Hematocrit (blood only) 32.1 % (37-47); Hemoglobin 11.2 g/dL (12.0-16.0); Mean Corpuscular Hemoglobin 34.3 pg (25-34); Mean Corpuscular Hgb Conc 34.9 g/dL (32-36); Mean Corpuscular Volume 98.2 fL (80-100); Mean Platelet Volume 10.6 fL (7.4-10.4); Platelet Count 92 K/uL (130-400); RDW Coefficient of Variation 11.8 % (11.5-14.5); RDW Standard Deviation 42.5 fL (36.4-46.3); Red Blood Count 3.27 M/uL (4.2-5.4); White Blood Count 4.44 K/uL (4.8-10.8)
[2019-04-30] MEDS ORDERED: Nursing to Pharmacy Communication ONE ×2 (05:36→10:55)
[2019-04-30 06:07] LABS: Estimated Average Glucose 97 mg/dl
[2019-04-30 06:44] LABS: Basophils # (auto) 0.01 K/uL (0-0.2); Basophils % (auto) 0.2 %; Eosinophils # (auto) 0.08 K/uL (0-0.5); Eosinophils % (auto) 1.8 %; Giant Platelets 1+; Immature Granulocytes # (auto) 0.01 K/uL (0.00-0.02); Immature Granulocytes % (auto) 0.2 %; Lymphocytes # (auto) 1.38 K/uL (1.2-3.4); Lymphocytes % (auto) 31.1 %; Monocytes # (auto) 0.25 K/uL (0.11-0.59); Monocytes % (auto) 5.6 %; Neutrophils # (auto) 2.71 K/uL (1.4-6.5); Neutrophils % (auto) 61.1 %
[2019-04-30] MEDS ORDERED: XOPENEX/ATROVENT 1.25mg/0.5MG NEB COMBO NEB PRN (07:04)
[2019-04-30] MEDS ORDERED: IPRATROPIUM BROMIDE NEB SOLN 0.02% 2.5 ML VIAL INH SCH ×2 (07:15→13:00)
[2019-04-30] MEDS ORDERED: LEVALBUTEROL 1.25MG/0.5ML NEB INH SCH ×2 (07:15→13:00)
[2019-04-30] MEDS: LACTATED RINGER'S 1,000 ML IV SCH ×3 (07:27→18:17)
[2019-04-30] MEDS: ENOXAPARIN INJ 30 MG/0.3 ML SYR SQ SCH (07:28)
[2019-04-30] MEDS: BENZONATATE 100 MG CAPSULE PO PRN (07:29)
[2019-04-30] MEDS: MULTIVITAMIN TAB PO SCH (07:29)
[2019-04-30] MEDS: FOLIC ACID 1 MG TAB PO SCH (07:29)
[2019-04-30 07:58] LABS: BUN Creatinine Ratio 20.6 (10-20); Calcium 7.7 mg/dl (8.5-10.1); Est GFR (African American) 148.4; Est GFR (Non-African American) 128.1; Potassium 3.2 mmol/L (3.5-5.1)
[2019-04-30 08:42] LABS: Influenza A virus by PCR Neg for Influ A (Neg); Influenza B virus by PCR Neg for Influ B (Neg)
[2019-04-30] MEDS ORDERED: POTASSIUM CHLORIDE 10 MEQ TABCR PO STA ×2 (08:59→18:00)
[2019-04-30 09:44] LABS: Pregnancy Test, Serum Negative (Negative)
[2019-04-30 09:46] LABS: BUN Creatinine Ratio 17.5 (10-20); Calcium 7.9 mg/dl (8.5-10.1); Est GFR (African American) 145.6; Est GFR (Non-African American) 125.6
[2019-04-30 09:56] LABS: Amphetamines+Metham, Urine Neg (Neg); Barbiturates, Urine Neg (Neg); Benzodiazepine, Urine Neg (Neg); Cocaine, Urine Neg (Neg); MDMA (Ecstacy), Urine Neg (Neg); Methadone, Urine Neg (Neg); Opiate, Urine Neg (Neg); Phencyclidine, Urine Neg (Neg)
--- NOTE | 2019-04-30 10:32 | Hospitalist Progress Note ---
Date of Service April 30, 2019 Assessment & Plan (1) Pancreatitis: ACUTE PANCREATITIS RECURRENT abdominal pain has improved, no nausea evaluated by GI diet advanced to clear liquids continue IV LR per GI: - Eventually will schedule her for outpt EGD/EUS to r/o pancreatic mass/cyst and can also further eval R liver 14mm hypodense lesion counselled on alcohol and smoking cessation POSSIBLE ASTHMA EXACERBATION, MILD CT chest: unremarkable no wheezing improved overall takes Breo daily, will order Advair while admitted PRN bronchodilators R/O UTI Urine culture: pending empiric Ceftriaxone IV HEADACHE likely tension headache CT head: unremarkable Tylenol PRN HIGH ANION GAP METABOLIC ACIDOSIS likely from poor oral intake improving monitor DM history of gestational Diabetes insulin sliding scale for now HTN stable continue Nifedipine DVT prophylaxis Lovenox Disposition anticipate d/c home when medically stable plan of care discussed with patient in detail and at length all questions answered she is understanding, agreeable and comfortable with the plan of care offered to update family members, but she declined Subjective ff up for acute pancreatitis seen with SILVANO Ojeda at bedside throughout whole encounter states she feels improved today compared to yesterday minimal epigastric/flank pain no nausea reports breathing has also improved denies cough, sputum production has mild generalized headache no other symptoms Review of Systems Review of Systems: All systems reviewed & are unremarkable except as noted in HPI & below Physical Exam Physical Exam: General- oriented x 3, not in distress, speaks in sentences with no effort or accessory muscle use Head- atraumatic Eyes- PERRL, EOMI, anicteric ENT- oropharynx clear Neck- supple, no JVD, no adenopathy, no thyromegaly; carotids +2/2, no bruits appreciated Lungs- clear to auscultation bilaterally, no rales/wheezes Heart- normal rate, regular rhythm; no murmur, no gallop, no rub appreciated Abdomen- normal bowel sounds, nondistended, soft, nontender, no masses or hepatosplenomegaly Extremities- no pretibial edema, no calf tenderness; peripheral pulses intact Neuro- alert, oriented x 3; CN 2-12 grossly intact; motor 5/5 bilaterally;sensation 100% on all extremities; no other gross focal neurologic deficits no nuchal rigidity Skin- warm & dry Results & Data Vital Signs (Past 12 Hours) Vital Signs Temp Pulse Pulse Pulse Resp BP BP 09/17/19 08:17 36.9 C 93 H 18 133/80 04/30/19 07:41 78 18 04/30/19 01:02 37.0 C 96 H 16 138/90 04/30/19 00:31 89 17 04/30/19 00:30 88 17 156/107 H 04/30/19 00:15 86 21 04/30/19 00:00 84 19 144/109 H 04/29/19 23:45 79 20 04/29/19 23:31 98 H 41 H 131/100 04/29/19 23:15 86 20 04/29/19 23:00 88 25 H 146/106 H 04/29/19 22:45 85 21 Pulse Ox 04/30/19 08:17 100 04/30/19 07:41 98 04/30/19 01:02 99 04/30/19 00:31 100 04/30/19 00:30 100 04/30/19 00:15 100 04/30/19 00:00 100 04/29/19 23:45 100 04/29/19 23:31 100 04/29/19 23:15 100 04/29/19 23:00 100 04/29/19 22:45 100 Laboratory Results Laboratory Results - last 24 hr 04/29/19 04/29/19 04/29/19 16:37 16:37 16:37 WBC RBC Hgb Hct MCV MCH MCHC RDW Std Deviation RDW Coeff of Arnold Plt Count MPV Immature Gran % (Auto) Neut % (Auto) Lymph % (Auto) [place] % (Auto) Eos % (Auto) Baso % (Auto) Immature Gran # (Auto) Neut # (Auto) Lymph # (Auto) [place] # (Auto) Eos # (Auto) Baso # (Auto) Giant Platelets ESR 77 H PT 10.3 INR 1.0 APTT 29.2 PTT Ratio 1.1 D-Dimer 1100 H* VBG pH VBG pCO2 VBG pO2 VBG HCO3 VBG O2 Saturation VBG Base Excess Barometric Pressure Sodium Potassium Chloride Carbon Dioxide Anion Gap BUN Creatinine Est Cr Clr Drug Dosing Est GFR ( Amer) Est GFR (Non-Af Amer) BUN/Creatinine Ratio Glucose POC Glucose Estimat Average Glucose Hemoglobin A1c Osmolality Lactate Calcium Magnesium Total Bilirubin AST ALT Alkaline Phosphatase Troponin I C-Reactive Protein Total Protein Albumin Globulin Albumin/Globulin Ratio Triglycerides Amylase Lipase Procalcitonin 0.26 TSH HCG, Qual Urine Color Urine Appearance Urine pH Ur Specific [place] Urine Protein Urine Glucose (UA) Urine Ketones Urine Blood Urine Nitrite Urine Bilirubin Urine Urobilinogen Ur Leukocyte Esterase Urine WBC (Auto) Urine RBC (Auto) U Hyaline Cast (Auto) U Epithel Cells (Auto) Urine Bacteria (Auto) POC Ur Test Urine Opiates Screen Ur Methadone, Qual Urine Barbiturates Ur Phencyclidine (PCP) U Amphetamin/Meth Scrn MDMA (Ecstasy) Screen U Benzodiazepines Scrn Ur Cocaine Metabolite U Marijuana (THC) Screen Ethyl Alcohol mg/dL Influenza Type A (PCR) Influenza Type B (PCR) 04/29/19 04/29/19 04/29/19 16:42 17:56 17:56 WBC RBC Hgb Hct MCV MCH MCHC RDW Std Deviation RDW Coeff of Arnold Plt Count MPV Immature Gran % (Auto) Neut % (Auto) Lymph % (Auto) [place] % (Auto) Eos % (Auto) Baso % (Auto) Immature Gran # (Auto) Neut # (Auto) Lymph # (Auto) [place] # (Auto) Eos # (Auto) Baso # (Auto) Giant Platelets ESR PT INR APTT PTT Ratio D-Dimer VBG pH VBG pCO2 VBG pO2 VBG HCO3 VBG O2 Saturation VBG Base Excess Barometric Pressure Sodium 129 L Potassium 3.6 Chloride 95 L Carbon Dioxide 12 L Anion Gap 22.0 H BUN 29 H Creatinine 1.22 H Est Cr Clr Drug Dosing 56.6 Est GFR ( Amer) 67.9 Est GFR (Non-Af Amer) 58.6 BUN/Creatinine Ratio 23.5 H Glucose 164 H POC Glucose Estimat Average Glucose Hemoglobin A1c Osmolality Lactate 1.5 Calcium 8.9 Magnesium 2.0 Total Bilirubin 1.4 H AST 147 H ALT 137 H Alkaline Phosphatase 107 Troponin I C-Reactive Protein 1.15 H Total Protein 9.2 H Albumin 4.2 Globulin 5.0 H Albumin/Globulin Ratio 0.8 L Triglycerides Amylase 102 Lipase 1465 H Procalcitonin TSH HCG, Qual Urine Color Urine Appearance Urine pH Ur Specific [place] Urine Protein Urine Glucose (UA) Urine Ketones Urine Blood Urine Nitrite Urine Bilirubin Urine Urobilinogen Ur Leukocyte Esterase Urine WBC (Auto) Urine RBC (Auto) U Hyaline Cast (Auto) U Epithel Cells (Auto) Urine Bacteria (Auto) POC Ur Test NEG Urine Opiates Screen Ur Methadone, Qual Urine Barbiturates Ur Phencyclidine (PCP) U Amphetamin/Meth Scrn MDMA (Ecstasy) Screen U Benzodiazepines Scrn Ur Cocaine Metabolite U Marijuana (THC) Screen Ethyl Alcohol mg/dL Influenza Type A (PCR) Influenza Type B (PCR) 04/29/19 04/29/19 04/29/19 17:56 17:56 17:59 WBC RBC Hgb Hct MCV MCH MCHC RDW Std Deviation RDW Coeff of Arnold Plt Count MPV Immature Gran % (Auto) Neut % (Auto) Lymph % (Auto) [place] % (Auto) Eos % (Auto) Baso % (Auto) Immature Gran # (Auto) Neut # (Auto) Lymph # (Auto) [place] # (Auto) Eos # (Auto) Baso # (Auto) Giant Platelets ESR PT INR APTT PTT Ratio D-Dimer VBG pH 7.34 L VBG pCO2 20 L VBG pO2 48 VBG HCO3 10 VBG O2 Saturation 85.3 VBG Base Excess -12.7 Barometric Pressure 732.6 Sodium Potassium Chloride Carbon Dioxide Anion Gap BUN Creatinine Est Cr Clr Drug Dosing Est GFR ( Amer) Est GFR (Non-Af Amer) BUN/Creatinine Ratio Glucose POC Glucose Estimat Average Glucose Hemoglobin A1c Osmolality Lactate Calcium Magnesium Total Bilirubin AST ALT Alkaline Phosphatase Troponin I < 0.015 C-Reactive Protein Total Protein Albumin Globulin Albumin/Globulin Ratio Triglycerides Amylase Lipase Procalcitonin TSH 1.500 HCG, Qual Urine Color Urine Appearance Urine pH Ur Specific [place] Urine Protein Urine Glucose (UA) Urine Ketones Urine Blood Urine Nitrite Urine Bilirubin Urine Urobilinogen Ur Leukocyte Esterase Urine WBC (Auto) Urine RBC (Auto) U Hyaline Cast (Auto) U Epithel Cells (Auto) Urine Bacteria (Auto) POC Ur Test Urine Opiates Screen Ur Methadone, Qual Urine Barbiturates Ur Phencyclidine (PCP) U Amphetamin/Meth Scrn MDMA (Ecstasy) Screen U Benzodiazepines Scrn Ur Cocaine Metabolite U Marijuana (THC) Screen Ethyl Alcohol mg/dL Influenza Type A (PCR) Influenza Type B (PCR) 04/29/19 04/29/19 04/29/19 18:10 22:05 22:05 WBC RBC Hgb Hct MCV MCH MCHC RDW Std Deviation RDW Coeff of Arnold Plt Count MPV Immature Gran % (Auto) Neut % (Auto) Lymph % (Auto) [place] % (Auto) Eos % (Auto) Baso % (Auto) Immature Gran # (Auto) Neut # (Auto) Lymph # (Auto) [place] # (Auto) Eos # (Auto) Baso # (Auto) Giant Platelets ESR PT INR APTT PTT Ratio D-Dimer VBG pH VBG pCO2 VBG pO2 VBG HCO3 VBG O2 Saturation VBG Base Excess Barometric Pressure Sodium 136 D Potassium 3.5 Chloride 106 Carbon Dioxide 13 L Anion Gap 17.0 H BUN 19 H Creatinine 0.77 D Est Cr Clr Drug Dosing 89.7 Est GFR ( Amer) 118.4 Est GFR (Non-Af Amer) 102.2 BUN/Creatinine Ratio 24.7 H Glucose 108 H POC Glucose Estimat Average Glucose Hemoglobin A1c Osmolality 290 Lactate Calcium 7.4 L D Magnesium Total Bilirubin 0.8 D AST 96 H ALT 91 H Alkaline Phosphatase 80 Troponin I C-Reactive Protein Total Protein 6.3 L D Albumin 2.8 L Globulin 3.5 Albumin/Globulin Ratio 0.8 L Triglycerides Amylase Lipase Procalcitonin TSH HCG, Qual Urine Color [place] Urine Appearance Slightly Cloudy A Urine pH Ur Specific [place] 1.032 H Urine Protein Urine Glucose (UA) Urine Ketones Urine Blood Urine Nitrite Urine Bilirubin Urine Urobilinogen Ur Leukocyte Esterase Urine WBC (Auto) 10-30 H Urine RBC (Auto) 5-10 H U Hyaline Cast (Auto) 10-30 H U Epithel Cells (Auto) 10-20 H Urine Bacteria (Auto) 1+ H POC Ur Test Urine Opiates Screen Ur Methadone, Qual Urine Barbiturates Ur Phencyclidine (PCP) U Amphetamin/Meth Scrn MDMA (Ecstasy) Screen U Benzodiazepines Scrn Ur Cocaine Metabolite U Marijuana (THC) Screen Ethyl Alcohol mg/dL Influenza Type A (PCR) Influenza Type B (PCR) 04/29/19 04/30/19 04/30/19 22:05 03:59 03:59 WBC RBC Hgb Hct MCV MCH MCHC RDW Std Deviation RDW Coeff of Arnold Plt Count MPV Immature Gran % (Auto) Neut % (Auto) Lymph % (Auto) [place] % (Auto) Eos % (Auto) Baso % (Auto) Immature Gran # (Auto) Neut # (Auto) Lymph # (Auto) [place] # (Auto) Eos # (Auto) Baso # (Auto) Giant Platelets ESR PT INR APTT PTT Ratio D-Dimer VBG pH 7.39 VBG pCO2 24 L VBG pO2 66 VBG HCO3 14 VBG O2 Saturation 93.7 VBG Base Excess -9.3 Barometric Pressure 734.9 Sodium Potassium Chloride Carbon Dioxide Anion Gap BUN Creatinine Est Cr Clr Drug Dosing Est GFR ( Amer) Est GFR (Non-Af Amer) BUN/Creatinine Ratio Glucose POC Glucose Estimat Average Glucose 97 Hemoglobin A1c 5.0 Osmolality Lactate Calcium Magnesium Total Bilirubin AST ALT Alkaline Phosphatase Troponin I C-Reactive Protein Total Protein Albumin Globulin Albumin/Globulin Ratio Triglycerides Amylase Lipase Procalcitonin TSH HCG, Qual Urine Color Urine Appearance Urine pH Ur Specific [place] Urine Protein Urine Glucose (UA) Urine Ketones Urine Blood Urine Nitrite Urine Bilirubin Urine Urobilinogen Ur Leukocyte Esterase Urine WBC (Auto) Urine RBC (Auto) U Hyaline Cast (Auto) U Epithel Cells (Auto) Urine Bacteria (Auto) POC Ur Test Urine Opiates Screen Ur Methadone, Qual Urine Barbiturates Ur Phencyclidine (PCP) U Amphetamin/Meth Scrn MDMA (Ecstasy) Screen U Benzodiazepines Scrn Ur Cocaine Metabolite U Marijuana (THC) Screen Ethyl Alcohol mg/dL < 3.0 Influenza Type A (PCR) Influenza Type B (PCR) 04/30/19 04/30/19 04/30/19 03:59 03:59 06:02 WBC 4.44 L RBC 3.27 L Hgb 11.2 L D Hct 32.1 L MCV 98.2 MCH 34.3 H MCHC 34.9 RDW Std Deviation 42.5 RDW Coeff of Arnold 11.8 Plt Count 92 L MPV 10.6 H Immature Gran % (Auto) 0.2 Neut % (Auto) 61.1 Lymph % (Auto) 31.1 Parke % (Auto) 5.6 Eos % (Auto) 1.8 Baso % (Auto) 0.2 Immature Gran # (Auto) 0.01 Neut # (Auto) 2.71 Lymph # (Auto) 1.38 [place] # (Auto) 0.25 Eos # (Auto) 0.08 Baso # (Auto) 0.01 Giant Platelets 1+ ESR PT INR APTT PTT Ratio D-Dimer VBG pH VBG pCO2 VBG pO2 VBG HCO3 VBG O2 Saturation VBG Base Excess Barometric Pressure Sodium 136 Potassium 3.5 Chloride 107 Carbon Dioxide 15 L Anion Gap 14.0 H BUN 14 Creatinine 0.55 L Est Cr Clr Drug Dosing 128.1 Est GFR ( Amer) 143.8 Est GFR (Non-Af Amer) 124.1 BUN/Creatinine Ratio 24.6 H Glucose 100 H POC Glucose 102 H Estimat Average Glucose Hemoglobin A1c Osmolality Lactate Calcium 7.5 L Magnesium Total Bilirubin 0.9 AST 80 H ALT 77 Alkaline Phosphatase 64 Troponin I C-Reactive Protein Total Protein 5.8 L Albumin 2.6 L Globulin 3.2 Albumin/Globulin Ratio 0.8 L Triglycerides 164 H Amylase Lipase Procalcitonin TSH HCG, Qual Urine Color Urine Appearance Urine pH Ur Specific [place] Urine Protein Urine Glucose (UA) Urine Ketones Urine Blood Urine Nitrite Urine Bilirubin Urine Urobilinogen Ur Leukocyte Esterase Urine WBC (Auto) Urine RBC (Auto) U Hyaline Cast (Auto) U Epithel Cells (Auto) Urine Bacteria (Auto) POC Ur Test Urine Opiates Screen Ur Methadone, Qual Urine Barbiturates Ur Phencyclidine (PCP) U Amphetamin/Meth Scrn MDMA (Ecstasy) Screen U Benzodiazepines Scrn Ur Cocaine Metabolite U Marijuana (THC) Screen Ethyl Alcohol mg/dL Influenza Type A (PCR) Influenza Type B (PCR) 04/30/19 04/30/19 04/30/19 07:08 08:30 09:16 WBC RBC Hgb Hct MCV MCH MCHC RDW Std Deviation RDW Coeff of Arnold Plt Count MPV Immature Gran % (Auto) Neut % (Auto) Lymph % (Auto) [place] % (Auto) Eos % (Auto) Baso % (Auto) Immature Gran # (Auto) Neut # (Auto) Lymph # (Auto) [place] # (Auto) Eos # (Auto) Baso # (Auto) Giant Platelets ESR PT INR APTT PTT Ratio D-Dimer VBG pH VBG pCO2 VBG pO2 VBG HCO3 VBG O2 Saturation VBG Base Excess Barometric Pressure Sodium 137 Potassium 3.2 L Chloride 107 Carbon Dioxide 16 L Anion Gap 14.0 H BUN 10 Creatinine 0.50 L Est Cr Clr Drug Dosing 141.0 Est GFR ( Amer) 148.4 Est GFR (Non-Af Amer) 128.1 BUN/Creatinine Ratio 20.6 H Glucose 106 H POC Glucose Estimat Average Glucose Hemoglobin A1c Osmolality Lactate Calcium 7.7 L Magnesium Total Bilirubin AST ALT Alkaline Phosphatase Troponin I C-Reactive Protein Total Protein Albumin Globulin Albumin/Globulin Ratio Triglycerides Amylase Lipase Procalcitonin TSH HCG, Qual Negative Urine Color Urine Appearance Urine pH Ur Specific [place] Urine Protein Urine Glucose (UA) Urine Ketones Urine Blood Urine Nitrite Urine Bilirubin Urine Urobilinogen Ur Leukocyte Esterase Urine WBC (Auto) Urine RBC (Auto) U Hyaline Cast (Auto) U Epithel Cells (Auto) Urine Bacteria (Auto) POC Ur Test Urine Opiates Screen Neg Ur Methadone, Qual Neg Urine Barbiturates Neg Ur Phencyclidine (PCP) Neg U Amphetamin/Meth Scrn Neg MDMA (Ecstasy) Screen Neg U Benzodiazepines Scrn Neg Ur Cocaine Metabolite Neg U Marijuana (THC) Screen Neg Ethyl Alcohol mg/dL Influenza Type A (PCR) Influenza Type B (PCR) 04/30/19 04/30/19 04/30/19 09:16 09:16 12:08 WBC RBC Hgb Hct MCV MCH MCHC RDW Std Deviation RDW Coeff of Arnold Plt Count MPV Immature Gran % (Auto) Neut % (Auto) Lymph % (Auto) [place] % (Auto) Eos % (Auto) Baso % (Auto) Immature Gran # (Auto) Neut # (Auto) Lymph # (Auto) [place] # (Auto) Eos # (Auto) Baso # (Auto) Giant Platelets ESR PT INR APTT PTT Ratio D-Dimer VBG pH VBG pCO2 VBG pO2 VBG HCO3 VBG O2 Saturation VBG Base Excess Barometric Pressure Sodium 136 Potassium 3.0 L Chloride 106 Carbon Dioxide 16 L Anion Gap 14.0 H BUN 9 Creatinine 0.53 L Est Cr Clr Drug Dosing 133.0 Est GFR ( Amer) 145.6 Est GFR (Non-Af Amer) 125.6 BUN/Creatinine Ratio 17.5 Glucose 124 H POC Glucose 152 H Estimat Average Glucose Hemoglobin A1c Osmolality Lactate Calcium 7.9 L Magnesium Total Bilirubin AST ALT Alkaline Phosphatase Troponin I C-Reactive Protein Total Protein Albumin Globulin Albumin/Globulin Ratio Triglycerides Amylase Lipase 1843 H Procalcitonin TSH HCG, Qual Urine Color Urine Appearance Urine pH Ur Specific [place] Urine Protein Urine Glucose (UA) Urine Ketones Urine Blood Urine Nitrite Urine Bilirubin Urine Urobilinogen Ur Leukocyte Esterase Urine WBC (Auto) Urine RBC (Auto) U Hyaline Cast (Auto) U Epithel Cells (Auto) Urine Bacteria (Auto) POC Ur Test Urine Opiates Screen Ur Methadone, Qual Urine Barbiturates Ur Phencyclidine (PCP) U Amphetamin/Meth Scrn MDMA (Ecstasy) Screen U Benzodiazepines Scrn Ur Cocaine Metabolite U Marijuana (THC) Screen Ethyl Alcohol mg/dL Influenza Type A (PCR) Influenza Type B (PCR) 04/30/19 04/30/19 13:53 Unknown WBC RBC Hgb Hct MCV MCH MCHC RDW Std Deviation RDW Coeff of Arnold Plt Count MPV Immature Gran % (Auto) Neut % (Auto) Lymph % (Auto) [place] % (Auto) Eos % (Auto) Baso % (Auto) Immature Gran # (Auto) Neut # (Auto) Lymph # (Auto) [place] # (Auto) Eos # (Auto) Baso # (Auto) Giant Platelets ESR PT INR APTT PTT Ratio D-Dimer VBG pH VBG pCO2 VBG pO2 VBG HCO3 VBG O2 Saturation VBG Base Excess Barometric Pressure Sodium 136 Potassium 3.4 L Chloride 105 Carbon Dioxide 19 L Anion Gap 12.0 H BUN 6 L Creatinine 0.55 L Est Cr Clr Drug Dosing 128.1 Est GFR ( Amer) 143.8 Est GFR (Non-Af Amer) 124.1 BUN/Creatinine Ratio 10.9 Glucose 132 H POC Glucose Estimat Average Glucose Hemoglobin A1c Osmolality Lactate Calcium 7.9 L Magnesium Total Bilirubin AST ALT Alkaline Phosphatase Troponin I C-Reactive Protein Total Protein Albumin Globulin Albumin/Globulin Ratio Triglycerides Amylase Lipase Procalcitonin TSH HCG, Qual Urine Color Urine Appearance Urine pH Ur Specific [place] Urine Protein Urine Glucose (UA) Urine Ketones Urine Blood Urine Nitrite Urine Bilirubin Urine Urobilinogen Ur Leukocyte Esterase Urine WBC (Auto) Urine RBC (Auto) U Hyaline Cast (Auto) U Epithel Cells (Auto) Urine Bacteria (Auto) POC Ur Test Urine Opiates Screen Ur Methadone, Qual Urine Barbiturates Ur Phencyclidine (PCP) U Amphetamin/Meth Scrn MDMA (Ecstasy) Screen U Benzodiazepines Scrn Ur Cocaine Metabolite U Marijuana (THC) Screen Ethyl Alcohol mg/dL Influenza Type A (PCR) Neg for Influ A Influenza Type B (PCR) Neg for Influ B (1) Pancreatitis Acute pancreatitis complication: unspecified Chronicity: acute Pancreatitis type: unspecified pancreatitis type Qualified Code(s): K85.90 - Acute pancreatitis without necrosis or infection, unspecified
[2019-04-30] MEDS: cefTRIAXone SODIUM 1,000 MG in DEXTROSE 5% 50 ML IV SCH (11:11)
--- NOTE | 2019-04-30 12:01 | Ultrasound Report ---
BILATERAL LOWER EXTREMITY VENOUS DOPPLER CLINICAL HISTORY: Shortness of breath. Chest pain. COMPARISON STUDY: No previous studies for comparison. TECHNIQUE: Sonography of the deep venous system of the bilateral lower extremities was performed. Co mpression and augmentation were evaluated. FINDINGS: The bilateral common femoral, superficial femoral and popliteal veins were compressible. A ugmentation was normal. Flow was shown within the deep calf vessels. IMPRESSION: No evidence of deep venous thrombus within the bilateral lower extremities. Electronically signed by: Pedro Pablo Moore M.D. 04/30/2019 12:00 PM
--- NOTE | 2019-04-30 13:10 | Gastrointestinal Consultation ---
Date of Consultation April 30, 2019 Assessment & Plan (1) Pancreatitis: Pt is a 33 y/o female currently seen for pancreatitis. Hx of DKA, suspected ETOH pancreatitis requiring admission in September. NO report of gallstones on CT scan. TG 164. A1C 5%. She admits to be smoking tobacco and drinks 2-3 drinks 3x a week. She is adopted, not sure about family hx - IVF support LR @ 200ml/hr; may lower rate if she is tolerating PO intake - CL diet - Strict ETOh & tobacco cessation advised - Symptomatic management w antiemetics and analgesics otherwise - Eventually will schedule her for outpt EGD/EUS to r/o pancreatic mass/cyst and can also further eval R liver 14mm hypodense lesion Supervising Physician Co-Signing Physician Notes I saw and evaluated the patient. She presents with a history of pancreatitis a nd notes that she is feeling improved today. Of note the patient does admit to alcohol consumption as an outpatient. Physical examination No obvious distress No scleral icterus Minimal epigastric tenderness today Impression: Patient admitted with signs suggestive of acute pancreatitis now resolving. I would recommend continued IV hydrate and advancing her to a clear liquid diet today. Should the patient be doing well on Monday I would then consider a low-fat diet. I would recommend outpatient evaluation with upper endoscopy and endoscopic ultrasound in 6 weeks to evaluate for potential causes of pancreatitis. I would also suggest abstinence from alcohol for this patient History of Present Illness Reason for Consultation: Pancreatitis Requesting Physician: Dr. Henry Montgomery Attending Physician: Dr. Kyra Darnell History of Present Illness Pt is a 33 y/o female who presented w c/o pain across upper abd, chest pain, palpitations and SOB. She initially thought she was having asthma attack, was medicating herself w inhalers at home. Troponin negative. She felt similarly when she had DKA and suspected ETOh related pancreatitis back in Sep 2018 for which she was admitted. She is on insulin, reports BS usually in low 100s. Her appetite hasn't been great and she has some nausea. Usually eats once daily. VS, labs reviewed - no leukocytosis, H/H stable, renal function normal. + mildly elevated LFTs and lipase also elevated in 1800s. Ddimer elevated but CT chest negative for PE, doppler negative for DVT on bilateral LE. CT abd/pelvis showed mildly fluid filled jejunal loops ? ileus/enteritis, + severe hepatic steatosis, 14mm central R hepatic lobe hypodensity, uterine fibroid. Pancreas appears normal. Urine drug, ETOH screens negative. Pt reports smoking about 3 cigs a day, does admit to ingest ETOH 3x a week usually 2-3 drinks (wine, mixed drinks). She is adopted, unsure about family hx Allergies Allergy/AdvReac Type Severity Reaction Status Date / Time bee venom protein (honey bee) Allergy Unknown ANAPHYLAXIS Verified 04/29/19 19:14 Home Medications Home Medications Medication Instructions Recorded Confirmed Type albuterol sulfate [Ventolin HFA] 1 puff INHALATION Q6H PRN 08/09/18 04/29/19 History insulin glargine [Lantus Solostar See Rx Instructions .ROUTE .COMPLEX 10/07/18 04/29/19 History U-100 Insulin] insulin lispro See Rx Instructions .ROUTE .COMPLEX 10/07/18 04/29/19 History nifedipine [Adalat CC] 30 mg PO DAILY #30 tab 10/07/18 04/29/19 Rx Patient History Medical History Asthma Cardiac murmur CONGENITAL -- BENIGN. 10/09/15 echo: The examination is adequate to evaluate the referral indication. The qualitative LV ejection fraction is 60-64% (normal). The left ventricular diastolic function is normal. No significant valvular disease is present. Depression H/O Anxiety H/O GERD (gastroesophageal reflux disease) R/T Scoliosis MINOR Gestational diabetes Diabetes Surgical History History of adenoidectomy History of tonsillectomy History of section x 2 Family History Other Adopted Social History Preferred Language: Malian 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: Effective Battery Loader Required: No Beliefs That Will Affect Care: None Current Living Situation: Spouse Other Information That Helps Us Care for You: No Feels Safe at Home: Yes Safety Concerns: Feels Safe At This Time Smoking Status: Current some day smoker Tobacco Type: cigarettes ; Cigarettes Per Day: 2-3 per day, "social smoker" ; Do You Dip or Chew Tobacco: No ; Second Hand Exposure: No ; Hx Alcohol Use: Yes Alcohol type: wine and hard liquor Hx Substance Use: No Review of Systems Review of Systems: All systems reviewed & are unremarkable except as noted in HPI & below Physical Exam Constitutional: WD/WN, vitals as above well groomed, cooperative and comfortable Eyes: PERRL, conjunctivae normal, anicteric sclerae ENMT: external ear and nose normal, oropharynx normal Respiratory: normal respiratory effort, lungs clear to auscultation Cardiovascular: RRR, no murmur, no edema Gastrointestinal (Abdomen): Inspection/Auscultation: + hypoactive bowel sounds Percussion/Palpation: + abdomen tender (RUQ ) and abdomen soft Skin: no rashes, warm and dry no jaundice Psychiatric: A+Ox3, euthymic affect Lymphatic: no lymphedema Results & Data Vital Signs (Past 12 Hours) Vital Signs Temp Pulse Pulse Resp BP Pulse Ox 04/30/19 08:17 36.9 C 93 H 18 133/80 100 04/30/19 07:41 78 18 98 (1) Pancreatitis Acute pancreatitis complication: unspecified Chronicity: acute Pancreatitis type: unspecified pancreatitis type Qualified Code(s): K85.90 - Acute p ancreatitis without necrosis or infection, unspecified
[2019-04-30] MEDS: INSULIN ASPART 100 UNITS/ML 3 ML PEN SC SCH ×3 (13:27→22:42)
[2019-04-30 14:26] LABS: BUN Creatinine Ratio 10.9 (10-20); Calcium 7.9 mg/dl (8.5-10.1); Creatinine Clr Calc Pharmacy 128.1 ml/min; Est GFR (African American) 143.8; Est GFR (Non-African American) 124.1; Potassium 3.4 mmol/L (3.5-5.1)
[2019-04-30] MEDS ORDERED: ALBUTEROL HFA 8 GM INHALER INH PRN (18:29)
[2019-04-30] MEDS ORDERED: FAMOTIDINE 20MG/5ML IV PUSH IV SCH (19:15)
[2019-04-30] MEDS: FAMOTIDINE 20 MG in SYRINGE 3 ML IV SCH (20:43)
[2019-04-30] MEDS: FLUTICASONE/SALMETEROL 250/50 (ADVAIR) 14 PUFF/1 INHALER INH SCH (20:52)
[2019-04-30] MEDS: ACETAMINOPHEN 325 MG TAB PO PRN (22:24)
[2019-05-01] MEDS: LACTATED RINGER'S 1,000 ML IV SCH ×2 (00:03→06:24)
[2019-05-01] MEDS: INSULIN ASPART 100 UNITS/ML 3 ML PEN SC SCH ×4 (08:47→21:46)
[2019-05-01] MEDS: cefTRIAXone SODIUM 1,000 MG in DEXTROSE 5% 50 ML IV SCH (09:04)
[2019-05-01] MEDS: NIFEdipine EXTENDED REL 30 MG TABCR PO SCH (09:05)
[2019-05-01] MEDS: FOLIC ACID 1 MG TAB PO SCH (09:05)
[2019-05-01] MEDS: FLUTICASONE/SALMETEROL 250/50 (ADVAIR) 14 PUFF/1 INHALER INH SCH ×2 (09:05→20:08)
[2019-05-01] MEDS: BENZONATATE 100 MG CAPSULE PO PRN (09:05)
[2019-05-01] MEDS: MULTIVITAMIN TAB PO SCH (09:06)
[2019-05-01] MEDS: guaiFENesin 600 MG TABCR PO SCH ×2 (09:06→20:10)
[2019-05-01] MEDS: ENOXAPARIN INJ 30 MG/0.3 ML SYR SQ SCH (09:06)
[2019-05-01 09:38] LABS: Hematocrit (blood only) 33.4 % (37-47); Hemoglobin 11.7 g/dL (12.0-16.0); Mean Corpuscular Hemoglobin 33.9 pg (25-34); Mean Corpuscular Volume 96.8 fL (80-100); RDW Coefficient of Variation 11.7 % (11.5-14.5); RDW Standard Deviation 41.9 fL (36.4-46.3); Red Blood Count 3.45 M/uL (4.2-5.4); White Blood Count 2.31 K/uL (4.8-10.8)
[2019-05-01 09:45] LABS: Mean Platelet Volume 11.3 fL (7.4-10.4); Platelet Count 86 K/uL (130-400)
[2019-05-01 10:07] LABS: Basophils # (auto) 0.01 K/uL (0-0.2); Basophils % (auto) 0.4 %; Eosinophils # (auto) 0.04 K/uL (0-0.5); Eosinophils % (auto) 1.7 %; Lymphocytes # (auto) 0.89 K/uL (1.2-3.4); Lymphocytes % (auto) 38.5 %; Monocytes # (auto) 0.14 K/uL (0.11-0.59); Monocytes % (auto) 6.1 %; Neutrophils # (auto) 1.23 K/uL (1.4-6.5); Neutrophils % (auto) 53.3 %
[2019-05-01 10:13] LABS: BUN Creatinine Ratio 10.8 (10-20); Blood Urea Nitrogen 5 mg/dl (7-18); Calcium 8.5 mg/dl (8.5-10.1); Carbon Dioxide 26 mmol/L (21-32); Chloride 102 mmol/L (98-107); Creatinine Clr Calc Pharmacy 163.9 ml/min; Est GFR (African American) > 150.0; Est GFR (Non-African American) 134.6; Glucose 116 mg/dl (70-99); Sodium 138 mmol/L (136-145)
[2019-05-01 10:15] LABS: Lipase 2850 U/L (73-393)
--- NOTE | 2019-05-01 10:15 | Gastroenterology Progress Note ---
Date of Service May 01, 2019 Assessment & Plan (1) Pancreatitis: Pt is a 33 y/o female currently seen for pancreatitis. Hx of DKA, suspected ETOH pancreatitis requiring admission in September. NO report of gallstones on CT scan. TG 164. A1C 5%. She admits to be smoking tobacco and drinks 2-3 drinks 3x a week. She is adopted, not sure about family hx - DC IVF; advanced to diabetic, low fat diet - No contraindication for DC home from GI standpoint. Advised to quit tobacco and ETOH uses. Eventually will schedule her for outpt EGD/EUS to r/o pancreatic mass/cyst and can also further eval R liver 14mm hypodense lesion - GI to sign off; pls recall prn Supervising Physician Co-Signing Physician Notes I saw and evaluated the patient. She notes that she is feeling well today and is interested in early discharge. It appears that her diet was advanced to a low-fat diet. Recommendations Endoscopic ultrasound to be arranged in 4 to 6 weeks for follow-up of recurrent pancreatitis Recommend alcohol abstinence Please call with any additional questions or concerns Subjective Pt denies any more abd pain, n/v. Tolerating CL diet well. Passing flatus no BMs today Review of Systems Review of Systems: All systems reviewed & are unremarkable except as noted in HPI & below Physical Exam Constitutional: WD/WN, vitals as above well groomed, cooperative and comfortable Eyes: PERRL, conjunctivae normal, anicteric sclerae ENMT: external ear and nose normal, oropharynx normal Respiratory: normal respiratory effort, lungs clear to auscultation Cardiovascular: RRR, no murmur, no edema Gastrointestinal (Abdomen): normal bowel sounds, soft, nontender, no hepatosplenomegaly Skin: no rashes, warm and dry no jaundice Psychiatric: A+Ox3, euthymic affect Lymphatic: no lymphedema Results & Data Vital Signs (Past 12 Hours) Vital Signs Temp Pulse Resp BP Pulse Ox 05/01/19 08:17 37.0 C 89 18 157/98 H 100 04/30/19 22:50 37.1 C 91 H 16 147/99 H 100 Laboratory Results Laboratory Results - last 72 hr 04/29/19 04/29/19 04/29/19 16:37 16:37 16:37 WBC 6.39 RBC 4.48 Hgb 15.9 Hct 44.4 MCV 99.1 MCH 35.5 H MCHC 35.8 RDW Std Deviation 42.8 RDW Coeff of Arnold 11.9 Plt Count 158 MPV 11.2 H Immature Gran % (Auto) 0.2 Neut % (Auto) 72.7 Lymph % (Auto) 20.0 [place] % (Auto) 6.1 Eos % (Auto) 0.8 Baso % (Auto) 0.2 Immature Gran # (Auto) 0.01 Neut # (Auto) 4.65 Lymph # (Auto) 1.28 [place] # (Auto) 0.39 Eos # (Auto) 0.05 Baso # (Auto) 0.01 Giant Platelets ESR 77 H PT INR APTT PTT Ratio D-Dimer VBG pH VBG pCO2 VBG pO2 VBG HCO3 VBG O2 Saturation VBG Base Excess Barometric Pressure Sodium 128 L Potassium 3.7 Chloride 97 L Carbon Dioxide 8 L* Anion Gap 23.0 H BUN 25 H Creatinine 1.10 Est Cr Clr Drug Dosing 62.8 Est GFR ( Amer) 76.9 Est GFR (Non-Af Amer) 66.4 BUN/Creatinine Ratio 23.1 H Glucose 189 H POC Glucose Estimat Average Glucose Hemoglobin A1c Osmolality Lactate Calcium 8.7 Magnesium Total Bilirubin 1.4 H AST 142 H ALT 127 H Alkaline Phosphatase 107 Troponin I C-Reactive Protein Total Protein 8.5 H Albumin 3.8 Globulin 4.7 H Albumin/Globulin Ratio 0.8 L Triglycerides Amylase Lipase Procalcitonin TSH HCG, Qual Urine Color Urine Appearance Urine pH Ur Specific [place] Urine Protein Urine Glucose (UA) Urine Ketones Urine Blood Urine Nitrite Urine Bilirubin Urine Urobilinogen Ur Leukocyte Esterase Urine WBC (Auto) Urine RBC (Auto) U Hyaline Cast (Auto) U Epithel Cells (Auto) Urine Bacteria (Auto) POC Ur Test Urine Opiates Screen Ur Methadone, Qual Urine Barbiturates Ur Phencyclidine (PCP) U Amphetamin/Meth Scrn MDMA (Ecstasy) Screen U Benzodiazepines Scrn Ur Cocaine Metabolite U Marijuana (THC) Screen Ethyl Alcohol mg/dL Influenza Type A (PCR) Influenza Type B (PCR) 04/29/19 04/29/19 04/29/19 16:37 16:37 16:42 WBC RBC Hgb Hct MCV MCH MCHC RDW Std Deviation RDW Coeff of Arnold Plt Count MPV Immature Gran % (Auto) Neut % (Auto) Lymph % (Auto) [place] % (Auto) Eos % (Auto) Baso % (Auto) Immature Gran # (Auto) Neut # (Auto) Lymph # (Auto) [place] # (Auto) Eos # (Auto) Baso # (Auto) Giant Platelets ESR PT 10.3 INR 1.0 APTT 29.2 PTT Ratio 1.1 D-Dimer 1100 H* VBG pH VBG pCO2 VBG pO2 VBG HCO3 VBG O2 Saturation VBG Base Excess Barometric Pressure Sodium Potassium Chloride Carbon Dioxide Anion Gap BUN Creatinine Est Cr Clr Drug Dosing Est GFR ( Amer) Est GFR (Non-Af Amer) BUN/Creatinine Ratio Glucose POC Glucose Estimat Average Glucose Hemoglobin A1c Osmolality Lactate Calcium Magnesium Total Bilirubin AST ALT Alkaline Phosphatase Troponin I C-Reactive Protein Total Protein Albumin Globulin Albumin/Globulin Ratio Triglycerides Amylase Lipase Procalcitonin 0.26 TSH HCG, Qual Urine Color Urine Appearance Urine pH Ur Specific [place] Urine Protein Urine Glucose (UA) Urine Ketones Urine Blood Urine Nitrite Urine Bilirubin Urine Urobilinogen Ur Leukocyte Esterase Urine WBC (Auto) Urine RBC (Auto) U Hyaline Cast (Auto) U Epithel Cells (Auto) Urine Bacteria (Auto) POC Ur Test NEG Urine Opiates Screen Ur Methadone, Qual Urine Barbiturates Ur Phencyclidine (PCP) U Amphetamin/Meth Scrn MDMA (Ecstasy) Screen U Benzodiazepines Scrn Ur Cocaine Metabolite U Marijuana (THC) Screen Ethyl Alcohol mg/dL Influenza Type A (PCR) Influenza Type B (PCR) 04/29/19 04/29/19 04/29/19 17:56 17:56 17:56 WBC RBC Hgb Hct MCV MCH MCHC RDW Std Deviation RDW Coeff of Arnold Plt Count MPV Immature Gran % (Auto) Neut % (Auto) Lymph % (Auto) [place] % (Auto) Eos % (Auto) Baso % (Auto) Immature Gran # (Auto) Neut # (Auto) Lymph # (Auto) [place] # (Auto) Eos # (Auto) Baso # (Auto) Giant Platelets ESR PT INR APTT PTT Ratio D-Dimer VBG pH VBG pCO2 VBG pO2 VBG HCO3 VBG O2 Saturation VBG Base Excess Barometric Pressure Sodium 129 L Potassium 3.6 Chloride 95 L Carbon Dioxide 12 L Anion Gap 22.0 H BUN 29 H Creatinine 1.22 H Est Cr Clr Drug Dosing 56.6 Est GFR ( Amer) 67.9 Est GFR (Non-Af Amer) 58.6 BUN/Creatinine Ratio 23.5 H Glucose 164 H POC Glucose Estimat Average Glucose Hemoglobin A1c Osmolality Lactate 1.5 Calcium 8.9 Magnesium 2.0 Total Bilirubin 1.4 H AST 147 H ALT 137 H Alkaline Phosphatase 107 Troponin I < 0.015 C-Reactive Protein 1.15 H Total Protein 9.2 H Albumin 4.2 Globulin 5.0 H Albumin/Globulin Ratio 0.8 L Triglycerides Amylase 102 Lipase 1465 H Procalcitonin TSH HCG, Qual Urine Color Urine Appearance Urine pH Ur Specific [place] Urine Protein Urine Glucose (UA) Urine Ketones Urine Blood Urine Nitrite Urine Bilirubin Urine Urobilinogen Ur Leukocyte Esterase Urine WBC (Auto) Urine RBC (Auto) U Hyaline Cast (Auto) U Epithel Cells (Auto) Urine Bacteria (Auto) POC Ur Test Urine Opiates Screen Ur Methadone, Qual Urine Barbiturates Ur Phencyclidine (PCP) U Amphetamin/Meth Scrn MDMA (Ecstasy) Screen U Benzodiazepines Scrn Ur Cocaine Metabolite U Marijuana (THC) Screen Ethyl Alcohol mg/dL Influenza Type A (PCR) Influenza Type B (PCR) 04/29/19 04/29/19 04/29/19 17:56 17:59 18:10 WBC RBC Hgb Hct MCV MCH MCHC RDW Std Deviation RDW Coeff of Arnold Plt Count MPV Immature Gran % (Auto) Neut % (Auto) Lymph % (Auto) [place] % (Auto) Eos % (Auto) Baso % (Auto) Immature Gran # (Auto) Neut # (Auto) Lymph # (Auto) [place] # (Auto) Eos # (Auto) Baso # (Auto) Giant Platelets ESR PT INR APTT PTT Ratio D-Dimer VBG pH 7.34 L VBG pCO2 20 L VBG pO2 48 VBG HCO3 10 VBG O2 Saturation 85.3 VBG Base Excess -12.7 Barometric Pressure 732.6 Sodium Potassium Chloride Carbon Dioxide Anion Gap BUN Creatinine Est Cr Clr Drug Dosing Est GFR ( Amer) Est GFR (Non-Af Amer) BUN/Creatinine Ratio Glucose POC Glucose Estimat Average Glucose Hemoglobin A1c Osmolality Lactate Calcium Magnesium Total Bilirubin AST ALT Alkaline Phosphatase Troponin I C-Reactive Protein Total Protein Albumin Globulin Albumin/Globulin Ratio Triglycerides Amylase Lipase Procalcitonin TSH 1.500 HCG, Qual Urine Color [place] Urine Appearance Slightly Cloudy A Urine pH Ur Specific [place] 1.032 H Urine Protein Urine Glucose (UA) Urine Ketones Urine Blood Urine Nitrite Urine Bilirubin Urine Urobilinogen Ur Leukocyte Esterase Urine WBC (Auto) 10-30 H Urine RBC (Auto) 5-10 H U Hyaline Cast (Auto) 10-30 H U Epithel Cells (Auto) 10-20 H Urine Bacteria (Auto) 1+ H POC Ur Test Urine Opiates Screen Ur Methadone, Qual Urine Barbiturates Ur Phencyclidine (PCP) U Amphetamin/Meth Scrn MDMA (Ecstasy) Screen U Benzodiazepines Scrn Ur Cocaine Metabolite U Marijuana (THC) Screen Ethyl Alcohol mg/dL Influenza Type A (PCR) Influenza Type B (PCR) 04/29/19 04/29/19 04/29/19 22:05 22:05 22:05 WBC RBC Hgb Hct MCV MCH MCHC RDW Std Deviation RDW Coeff of Arnold Plt Count MPV Immature Gran % (Auto) Neut % (Auto) Lymph % (Auto) [place] % (Auto) Eos % (Auto) Baso % (Auto) Immature Gran # (Auto) Neut # (Auto) Lymph # (Auto) [place] # (Auto) Eos # (Auto) Baso # (Auto) Giant Platelets ESR PT INR APTT PTT Ratio D-Dimer VBG pH VBG pCO2 VBG pO2 VBG HCO3 VBG O2 Saturation VBG Base Excess Barometric Pressure Sodium 136 D Potassium 3.5 Chloride 106 Carbon Dioxide 13 L Anion Gap 17.0 H BUN 19 H Creatinine 0.77 D Est Cr Clr Drug Dosing 89.7 Est GFR ( Amer) 118.4 Est GFR (Non-Af Amer) 102.2 BUN/Creatinine Ratio 24.7 H Glucose 108 H POC Glucose Estimat Average Glucose Hemoglobin A1c Osmolality 290 Lactate Calcium 7.4 L D Magnesium Total Bilirubin 0.8 D AST 96 H ALT 91 H Alkaline Phosphatase 80 Troponin I C-Reactive Protein Total Protein 6.3 L D Albumin 2.8 L Globulin 3.5 Albumin/Globulin Ratio 0.8 L Triglycerides Amylase Lipase Procalcitonin TSH HCG, Qual Urine Color Urine Appearance Urine pH Ur Specific [place] Urine Protein Urine Glucose (UA) Urine Ketones Urine Blood Urine Nitrite Urine Bilirubin Urine Urobilinogen Ur Leukocyte Esterase Urine WBC (Auto) Urine RBC (Auto) U Hyaline Cast (Auto) U Epithel Cells (Auto) Urine Bacteria (Auto) POC Ur Test Urine Opiates Screen Ur Methadone, Qual Urine Barbiturates Ur Phencyclidine (PCP) U Amphetamin/Meth Scrn MDMA (Ecstasy) Screen U Benzodiazepines Scrn Ur Cocaine Metabolite U Marijuana (THC) Screen Ethyl Alcohol mg/dL < 3.0 Influenza Type A (PCR) Influenza Type B (PCR) 04/30/19 04/30/19 04/30/19 00:56 03:59 03:59 WBC RBC Hgb Hct MCV MCH MCHC RDW Std Deviation RDW Coeff of Arnold Plt Count MPV Immature Gran % (Auto) Neut % (Auto) Lymph % (Auto) [place] % (Auto) Eos % (Auto) Baso % (Auto) Immature Gran # (Auto) Neut # (Auto) Lymph # (Auto) [place] # (Auto) Eos # (Auto) Baso # (Auto) Giant Platelets ESR PT INR APTT PTT Ratio D-Dimer VBG pH 7.39 VBG pCO2 24 L VBG pO2 66 VBG HCO3 14 VBG O2 Saturation 93.7 VBG Base Excess -9.3 Barometric Pressure 734.9 Sodium Potassium Chloride Carbon Dioxide Anion Gap BUN Creatinine Est Cr Clr Drug Dosing Est GFR ( Amer) Est GFR (Non-Af Amer) BUN/Creatinine Ratio Glucose POC Glucose 110 H Estimat Average Glucose 97 Hemoglobin A1c 5.0 Osmolality Lactate Calcium Magnesium Total Bilirubin AST ALT Alkaline Phosphatase Troponin I C-Reactive Protein Total Protein Albumin Globulin Albumin/Globulin Ratio Triglycerides Amylase Lipase Procalcitonin TSH HCG, Qual Urine Color Urine Appearance Urine pH Ur Specific [place] Urine Protein Urine Glucose (UA) Urine Ketones Urine Blood Urine Nitrite Urine Bilirubin Urine Urobilinogen Ur Leukocyte Esterase Urine WBC (Auto) Urine RBC (Auto) U Hyaline Cast (Auto) U Epithel Cells (Auto) Urine Bacteria (Auto) POC Ur Test Urine Opiates Screen Ur Methadone, Qual Urine Barbiturates Ur Phencyclidine (PCP) U Amphetamin/Meth Scrn MDMA (Ecstasy) Screen U Benzodiazepines Scrn Ur Cocaine Metabolite U Marijuana (THC) Screen Ethyl Alcohol mg/dL Influenza Type A (PCR) Influenza Type B (PCR) 04/30/19 04/30/19 04/30/19 03:59 03:59 06:02 WBC 4.44 L RBC 3.27 L Hgb 11.2 L D Hct 32.1 L MCV 98.2 MCH 34.3 H MCHC 34.9 RDW Std Deviation 42.5 RDW Coeff of Arnold 11.8 Plt Count 92 L MPV 10.6 H Immature Gran % (Auto) 0.2 Neut % (Auto) 61.1 Lymph % (Auto) 31.1 [place] % (Auto) 5.6 Eos % (Auto) 1.8 Baso % (Auto) 0.2 Immature Gran # (Auto) 0.01 Neut # (Auto) 2.71 Lymph # (Auto) 1.38 [place] # (Auto) 0.25 Eos # (Auto) 0.08 Baso # (Auto) 0.01 Giant Platelets 1+ ESR PT INR APTT PTT Ratio D-Dimer VBG pH VBG pCO2 VBG pO2 VBG HCO3 VBG O2 Saturation VBG Base Excess Barometric Pressure Sodium 136 Potassium 3.5 Chloride 107 Carbon Dioxide 15 L Anion Gap 14.0 H BUN 14 Creatinine 0.55 L Est Cr Clr Drug Dosing 128.1 Est GFR ( Amer) 143.8 Est GFR (Non-Af Amer) 124.1 BUN/Creatinine Ratio 24.6 H Glucose 100 H POC Glucose 102 H Estimat Average Glucose Hemoglobin A1c Osmolality Lactate Calcium 7.5 L Magnesium Total Bilirubin 0.9 AST 80 H ALT 77 Alkaline Phosphatase 64 Troponin I C-Reactive Protein Total Protein 5.8 L Albumin 2.6 L Globulin 3.2 Albumin/Globulin Ratio 0.8 L Triglycerides 164 H Amylase Lipase Procalcitonin TSH HCG, Qual Urine Color Urine Appearance Urine pH Ur Specific [place] Urine Protein Urine Glucose (UA) Urine Ketones Urine Blood Urine Nitrite Urine Bilirubin Urine Urobilinogen Ur Leukocyte Esterase Urine WBC (Auto) Urine RBC (Auto) U Hyaline Cast (Auto) U Epithel Cells (Auto) Urine Bacteria (Auto) POC Ur Test Urine Opiates Screen Ur Methadone, Qual Urine Barbiturates Ur Phencyclidine (PCP) U Amphetamin/Meth Scrn MDMA (Ecstasy) Screen U Benzodiazepines Scrn Ur Cocaine Metabolite U Marijuana (THC) Screen Ethyl Alcohol mg/dL Influenza Type A (PCR) Influenza Type B (PCR) 04/30/19 04/30/19 04/30/19 07:08 08:30 09:16 WBC RBC Hgb Hct MCV MCH MCHC RDW Std Deviation RDW Coeff of Arnold Plt Count MPV Immature Gran % (Auto) Neut % (Auto) Lymph % (Auto) [place] % (Auto) Eos % (Auto) Baso % (Auto) Immature Gran # (Auto) Neut # (Auto) Lymph # (Auto) [place] # (Auto) Eos # (Auto) Baso # (Auto) Giant Platelets ESR PT INR APTT PTT Ratio D-Dimer VBG pH VBG pCO2 VBG pO2 VBG HCO3 VBG O2 Saturation VBG Base Excess Barometric Pressure Sodium 137 Potassium 3.2 L Chloride 107 Carbon Dioxide 16 L Anion Gap 14.0 H BUN 10 Creatinine 0.50 L Est Cr Clr Drug Dosing 141.0 Est GFR ( Amer) 148.4 Est GFR (Non-Af Amer) 128.1 BUN/Creatinine Ratio 20.6 H Glucose 106 H POC Glucose Estimat Average Glucose Hemoglobin A1c Osmolality Lactate Calcium 7.7 L Magnesium Total Bilirubin AST ALT Alkaline Phosphatase Troponin I C-Reactive Protein Total Protein Albumin Globulin Albumin/Globulin Ratio Triglycerides Amylase Lipase Procalcitonin TSH HCG, Qual Negative Urine Color Urine Appearance Urine pH Ur Specific [place] Urine Protein Urine Glucose (UA) Urine Ketones Urine Blood Urine Nitrite Urine Bilirubin Urine Urobilinogen Ur Leukocyte Esterase Urine WBC (Auto) Urine RBC (Auto) U Hyaline Cast (Auto) U Epithel Cells (Auto) Urine Bacteria (Auto) POC Ur Test Urine Opiates Screen Neg Ur Methadone, Qual Neg Urine Barbiturates Neg Ur Phencyclidine (PCP) Neg U Amphetamin/Meth Scrn Neg MDMA (Ecstasy) Screen Neg U Benzodiazepines Scrn Neg Ur Cocaine Metabolite Neg U Marijuana (THC) Screen Neg Ethyl Alcohol mg/dL Influenza Type A (PCR) Influenza Type B (PCR) 04/30/19 04/30/19 04/30/19 09:16 09:16 12:08 WBC RBC Hgb Hct MCV MCH MCHC RDW Std Deviation RDW Coeff of Arnold Plt Count MPV Immature Gran % (Auto) Neut % (Auto) Lymph % (Auto) [place] % (Auto) Eos % (Auto) Baso % (Auto) Immature Gran # (Auto) Neut # (Auto) Lymph # (Auto) [place] # (Auto) Eos # (Auto) Baso # (Auto) Giant Platelets ESR PT INR APTT PTT Ratio D-Dimer VBG pH VBG pCO2 VBG pO2 VBG HCO3 VBG O2 Saturation VBG Base Excess Barometric Pressure Sodium 136 Potassium 3.0 L Chloride 106 Carbon Dioxide 16 L Anion Gap 14.0 H BUN 9 Creatinine 0.53 L Est Cr Clr Drug Dosing 133.0 Est GFR ( Amer) 145.6 Est GFR (Non-Af Amer) 125.6 BUN/Creatinine Ratio 17.5 Glucose 124 H POC Glucose 152 H Estimat Average Glucose Hemoglobin A1c Osmolality Lactate Calcium 7.9 L Magnesium Total Bilirubin AST ALT Alkaline Phosphatase Troponin I C-Reactive Protein Total Protein Albumin Globulin Albumin/Globulin Ratio Triglycerides Amylase Lipase 1843 H Procalcitonin TSH HCG, Qual Urine Color Urine Appearance Urine pH Ur Specific [place] Urine Protein Urine Glucose (UA) Urine Ketones Urine Blood Urine Nitrite Urine Bilirubin Urine Urobilinogen Ur Leukocyte Esterase Urine WBC (Auto) Urine RBC (Auto) U Hyaline Cast (Auto) U Epithel Cells (Auto) Urine Bacteria (Auto) POC Ur Test Urine Opiates Screen Ur Methadone, Qual Urine Barbiturates Ur Phencyclidine (PCP) U Amphetamin/Meth Scrn MDMA (Ecstasy) Screen U Benzodiazepines Scrn Ur Cocaine Metabolite U Marijuana (THC) Screen Ethyl Alcohol mg/dL Influenza Type A (PCR) Influenza Type B (PCR) 04/30/19 04/30/19 04/30/19 13:53 17:09 20:47 WBC RBC Hgb Hct MCV MCH MCHC RDW Std Deviation RDW Coeff of Arnold Plt Count MPV Immature Gran % (Auto) Neut % (Auto) Lymph % (Auto) [place] % (Auto) Eos % (Auto) Baso % (Auto) Immature Gran # (Auto) Neut # (Auto) Lymph # (Auto) [place] # (Auto) Eos # (Auto) Baso # (Auto) Giant Platelets ESR PT INR APTT PTT Ratio D-Dimer VBG pH VBG pCO2 VBG pO2 VBG HCO3 VBG O2 Saturation VBG Base Excess Barometric Pressure Sodium 136 Potassium 3.4 L Chloride 105 Carbon Dioxide 19 L Anion Gap 12.0 H BUN 6 L Creatinine 0.55 L Est Cr Clr Drug Dosing 128.1 Est GFR ( Amer) 143.8 Est GFR (Non-Af Amer) 124.1 BUN/Creatinine Ratio 10.9 Glucose 132 H POC Glucose 139 H 130 H Estimat Average Glucose Hemoglobin A1c Osmolality Lactate Calcium 7.9 L Magnesium Total Bilirubin AST ALT Alkaline Phosphatase Troponin I C-Reactive Protein Total Protein Albumin Globulin Albumin/Globulin Ratio Triglycerides Amylase Lipase Procalcitonin TSH HCG, Qual Urine Color Urine Appearance Urine pH Ur Specific [place] Urine Protein Urine Glucose (UA) Urine Ketones Urine Blood Urine Nitrite Urine Bilirubin Urine Urobilinogen Ur Leukocyte Esterase Urine WBC (Auto) Urine RBC (Auto) U Hyaline Cast (Auto) U Epithel Cells (Auto) Urine Bacteria (Auto) POC Ur Test Urine Opiates Screen Ur Methadone, Qual Urine Barbiturates Ur Phencyclidine (PCP) U Amphetamin/Meth Scrn MDMA (Ecstasy) Screen U Benzodiazepines Scrn Ur Cocaine Metabolite U Marijuana (THC) Screen Ethyl Alcohol mg/dL Influenza Type A (PCR) Influenza Type B (PCR) 04/30/19 05/01/19 05/01/19 Unknown 08:11 09:15 WBC 2.31 L RBC 3.45 L Hgb 11.7 L Hct 33.4 L MCV 96.8 MCH 33.9 MCHC 35.0 RDW Std Deviation 41.9 RDW Coeff of Arnold 11.7 Plt Count 86 L MPV 11.3 H Immature Gran % (Auto) 0.0 Neut % (Auto) 53.3 Lymph % (Auto) 38.5 [place] % (Auto) 6.1 Eos % (Auto) 1.7 Baso % (Auto) 0.4 Immature Gran # (Auto) 0.00 Neut # (Auto) 1.23 L Lymph # (Auto) 0.89 L [place] # (Auto) 0.14 Eos # (Auto) 0.04 Baso # (Auto) 0.01 Giant Platelets ESR PT INR APTT PTT Ratio D-Dimer VBG pH VBG pCO2 VBG pO2 VBG HCO3 VBG O2 Saturation VBG Base Excess Barometric Pressure Sodium Potassium Chloride Carbon Dioxide Anion Gap BUN Creatinine Est Cr Clr Drug Dosing Est GFR ( Amer) Est GFR (Non-Af Amer) BUN/Creatinine Ratio Glucose POC Glucose 109 H Estimat Average Glucose Hemoglobin A1c Osmolality Lactate Calcium Magnesium Total Bilirubin AST ALT Alkaline Phosphatase Troponin I C-Reactive Protein Total Protein Albumin Globulin Albumin/Globulin Ratio Triglycerides Amylase Lipase Procalcitonin TSH HCG, Qual Urine Color Urine Appearance Urine pH Ur Specific [place] Urine Protein Urine Glucose (UA) Urine Ketones Urine Blood Urine Nitrite Urine Bilirubin Urine Urobilinogen Ur Leukocyte Esterase Urine WBC (Auto) Urine RBC (Auto) U Hyaline Cast (Auto) U Epithel Cells (Auto) Urine Bacteria (Auto) POC Ur Test Urine Opiates Screen Ur Methadone, Qual Urine Barbiturates Ur Phencyclidine (PCP) U Amphetamin/Meth Scrn MDMA (Ecstasy) Screen U Benzodiazepines Scrn Ur Cocaine Metabolite U Marijuana (THC) Screen Ethyl Alcohol mg/dL Influenza Type A (PCR) Neg for Influ A Influenza Type B (PCR) Neg for Influ B 05/01/19 09:15 WBC RBC Hgb Hct MCV MCH MCHC RDW Std Deviation RDW Coeff of Arnold Plt Count MPV Immature Gran % (Auto) Neut % (Auto) Lymph % (Auto) [place] % (Auto) Eos % (Auto) Baso % (Auto) Immature Gran # (Auto) Neut # (Auto) Lymph # (Auto) [place] # (Auto) Eos # (Auto) Baso # (Auto) Giant Platelets ESR PT INR APTT PTT Ratio D-Dimer VBG pH VBG pCO2 VBG pO2 VBG HCO3 VBG O2 Saturation VBG Base Excess Barometric Pressure Sodium 138 Potassium 3.0 L Chloride 102 Carbon Dioxide 26 Anion Gap 10.0 BUN 5 L Creatinine 0.43 L Est Cr Clr Drug Dosing 163.9 Est GFR ( Amer) > 150.0 Est GFR (Non-Af Amer) 134.6 BUN/Creatinine Ratio 10.8 Glucose 116 H POC Glucose Estimat Average Glucose Hemoglobin A1c Osmolality Lactate Calcium 8.5 Magnesium Total Bilirubin AST ALT Alkaline Phosphatase Troponin I C-Reactive Protein Total Protein Albumin Globulin Albumin/Globulin Ratio Triglycerides Amylase Lipase Procalcitonin TSH HCG, Qual Urine Color Urine Appearance Urine pH Ur Specific [place] Urine Protein Urine Glucose (UA) Urine Ketones Urine Blood Urine Nitrite Urine Bilirubin Urine Urobilinogen Ur Leukocyte Esterase Urine WBC (Auto) Urine RBC (Auto) U Hyaline Cast (Auto) U Epithel Cells (Auto) Urine Bacteria (Auto) POC Ur Test Urine Opiates Screen Ur Methadone, Qual Urine Barbiturates Ur Phencyclidine (PCP) U Amphetamin/Meth Scrn MDMA (Ecstasy) Screen U Benzodiazepines Scrn Ur Cocaine Metabolite U Marijuana (THC) Screen Ethyl Alcohol mg/dL Influenza Type A (PCR) Influenza Type B (PCR) (1) Pancreatitis Acute pancreatitis complication: unspecified Chronicity: acute Pancreatitis type: unspecified pancreatitis type Qualified Code(s): K85.90 - Acute panc reatitis without necrosis or infection, unspecified
[2019-05-01 12:20] LABS: Albumin Level 2.7 gm/dl (3.4-5.0); Bilirubin Direct 0.2 mg/dl (0-0.2); Bilirubin,Total 0.4 mg/dl (0.2-1); Total Protein 6.1 gm/dl (6.4-8.2)
--- NOTE | 2019-05-01 12:43 | Hospitalist Progress Note ---
Date of Service May 01, 2019 Assessment & Plan (1) Pancreatitis: ACUTE PANCREATITIS RECURRENT Likely secondary to alcohol intake abdominal pain resolved, no nausea evaluated by GI diet advanced to low-fat diet Was given vigorous IV lactated Ringer's per GI: - Eventually will schedule her for outpt EGD/EUS to r/o pancreatic mass/cyst and can also further eval R liver 14mm hypodense lesion counselled on alcohol and smoking cessation POSSIBLE ASTHMA EXACERBATION, MILD, resolved CT chest: unremarkable Wheezing back to baseline Post to be taking Breo daily, will order while patient admitted PRN bronchodilators UTI ruled out Urine culture: Negative Blood culture negative x24 hours Was given empiric Ceftriaxone IV HEADACHE likely tension headache possible cervical muscle pain CT head: unremarkable Tylenol, Flexeril PRN HIGH ANION GAP METABOLIC ACIDOSIS likely from poor oral intake Resolved PANCYTOPENIA Possibly secondary to illness, hemodilution Peripheral smear: Normochromic normocytic red blood cells, scattered enlarged platelets, unremarkable leukocytes are all seen Blasts and schistocytes are not seen Inclusions of anaplasmosis and ehrlichiosis are not seen Repeat CBC tomorrow HYPOKALEMIA Replaced Repeat BMP tomorrow DM history of gestational Diabetes A1c 5.0 insulin sliding scale for now Resume current insulin regimen on discharge HTN stable continue Nifedipine, lisinopril DVT prophylaxis Lovenox held in light of thrombocytopenia SCDs for now Ambulation encouraged Disposition anticipate d/c home when medically stable, CBC counts improving Follow-up with primary care physician Follow-up with gastroenterology clinic for EGD and endoscopic ultrasound plan of care discussed with patient in detail and at length all questions answered she is understanding, agreeable and comfortable with the plan of care Subjective Follow-up for follow-up for acute pancreatitis Seen with SILVANO Ojeda throughout whole encounter Resting in bed, comfortable, in good spirits States she feels better today No abdominal pain, nausea vomiting, also tolerating clear liquids well Denies shortness of breath, cough, breathing is back to baseline Headache improving, patient reports mild to moderate posterior neck pain worse with movement Denies dysuria, hematuria, abdominal pain, no fevers or chills No other symptoms Review of Systems Review of Systems: All systems reviewed & are unremarkable except as noted in HPI & below Physical Exam Physical Exam: General- oriented x 3, not in distress, speaks in sentences with no effort or accessory muscle use Eyes- anicteric Neck- no JVD Lungs- clear breath sounds bilaterally, no crackles, no wheezing bilaterally Heart- normal rate, regular rhythm; no murmurs Abdomen- normal bowel sounds, nondistended, soft, tenderness Extremities- no pretibial edema, no calf tenderness Neuro- alert, oriented x 3; no gross focal neurologic deficits Skin- warm & dry Results & Data Vital Signs (Past 12 Hours) Vital Signs Temp Pulse Resp BP Pulse Ox 05/01/19 08:17 37.0 C 89 18 157/98 H 100 (1) Pancreatitis Acute pancreatitis complication: unspecified Chronicity: acute Pancreatitis type: unspecified pancreatitis type Qualified Code(s): K85.90 - Acute pancreatitis without necrosis or infection, unspecified
[2019-05-01] MEDS: ACETAMINOPHEN 325 MG TAB PO PRN ×2 (15:35→23:59)
[2019-05-01] MEDS: OXYCODONE HCL IR 5 MG TAB (IMMEDIATE RELEASE) PO PRN (15:36)
[2019-05-01] MEDS ORDERED: CYCLOBENZAPRINE HCL 5 MG TAB PO PRN (16:25)
[2019-05-01] MEDS: LISINOPRIL 10 MG TAB PO SCH (18:05)
[2019-05-01] MEDS: FAMOTIDINE 20 MG in SYRINGE 3 ML IV SCH (20:08)
[2019-05-01] MEDS ORDERED: MONTELUKAST SODIUM 10 MG TABLET PO SCH (21:00)
[2019-05-02 08:08] LABS: Hematocrit (blood only) 33.3 % (37-47); Hemoglobin 11.5 g/dL (12.0-16.0); Mean Corpuscular Hemoglobin 33.6 pg (25-34); Mean Corpuscular Hgb Conc 34.5 g/dL (32-36); Mean Corpuscular Volume 97.4 fL (80-100); RDW Coefficient of Variation 11.6 % (11.5-14.5); RDW Standard Deviation 41.6 fL (36.4-46.3); Red Blood Count 3.42 M/uL (4.2-5.4); White Blood Count 2.99 K/uL (4.8-10.8)
[2019-05-02] MEDS: FLUTICASONE/SALMETEROL 250/50 (ADVAIR) 14 PUFF/1 INHALER INH SCH (08:22)
[2019-05-02] MEDS: guaiFENesin 600 MG TABCR PO SCH (08:23)
[2019-05-02] MEDS: MULTIVITAMIN TAB PO SCH (08:23)
[2019-05-02] MEDS: LISINOPRIL 10 MG TAB PO SCH (08:23)
[2019-05-02] MEDS: NIFEdipine EXTENDED REL 30 MG TABCR PO SCH (08:23)
[2019-05-02] MEDS: FOLIC ACID 1 MG TAB PO SCH (08:24)
[2019-05-02 08:35] LABS: BUN Creatinine Ratio 20.2 (10-20); Blood Urea Nitrogen 8 mg/dl (7-18); Calcium 8.8 mg/dl (8.5-10.1); Carbon Dioxide 28 mmol/L (21-32); Chloride 102 mmol/L (98-107); Creatinine Clr Calc Pharmacy 176.2 ml/min; Est GFR (African American) > 150.0; Est GFR (Non-African American) 137.8; Glucose 126 mg/dl (70-99); Potassium 3.2 mmol/L (3.5-5.1); Sodium 137 mmol/L (136-145)
[2019-05-02 08:43] LABS: Mean Platelet Volume 11.7 fL (7.4-10.4); Platelet Count 89 K/uL (130-400)
[2019-05-02 08:44] LABS: Basophils # (auto) 0.02 K/uL (0-0.2); Basophils % (auto) 0.7 %; Eosinophils # (auto) 0.06 K/uL (0-0.5); Giant Platelets 1+; Lymphocytes # (auto) 1.02 K/uL (1.2-3.4); Lymphocytes % (auto) 34.1 %; Monocytes # (auto) 0.28 K/uL (0.11-0.59); Monocytes % (auto) 9.4 %; Neutrophils # (auto) 1.61 K/uL (1.4-6.5); Neutrophils % (auto) 53.8 %
[2019-05-02] MEDS ORDERED: FERROUS SULFATE 325 MG TAB PO SCH (09:00)
[2019-05-02] MEDS ORDERED: CHOLECALCIFEROL (VITAMIN D) 400 UNITS TABLET PO SCH (09:00)
--- NOTE | 2019-05-02 09:02 | Discharge Summary ---
Date of Service May 02, 2019 Admission HPI Per Admitting Provider History obtained from patient and records. Medical history significant for gestational diabetes, HTN, ADD as per records, asthma, past tobacco abuse Recent confinement September 2018 for DKA in the setting of gestational diabetes mellitus. Patient also found to have pancreatitis attributed to NSAIDs and alcohol use, pancreatitis. Few days history of chest/subcostal pain, shortness of breath, dry cough symptoms causing headache. Patient also had flank discomfort without hematuria/dysuria symptoms. Nausea, emesis symptoms. Admits to drinking alcohol last week just for 1 day, not excessive however. At the ER, patient received Ceftriaxone for possible UTI. 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 Admission Exam Per Admitting Provider GENERAL: Slightly uncomfortable, no respiratory distress SKIN: Pallor, warm HEENT: Pale palpebral conjunctivae, no ptosis, dry buccal mucosa NECK : Supple, no tenderness CHEST : Decreased breath sounds, no tenderness HEART : Tachycardic, no obvious murmurs ABDOMEN: Some distention, epigastric tenderness EXTREMITIES : No LE swelling/tenderness, no other conspicuous deformities noted NEUROLOGIC : Coherent, no facial asymmetry, no other gross focality Principal Diagnosis Acute pancreatitis Hypokalemia Abd Pain DM II Dehydration HTN Discharge Exam ROS-No Headache, No Visual Changes, No Nausea, No Vomiting, No Fever, No Chills, No Neck Pain or Stiffness, No Chest Pain, No Palpitations, No SOB, No CERVANTES, No Cough, No Sputum, No Wheezing, No Abdominal Pain, No Diarrhea, No Hematemesis, No Hemoptysis, No Unexpected Weight Loss, No Flank pain, No Melena, No Hematochezia, No Frequency, No Urgency, No Burning, No Hematuria, No Rashes, No Diaphoresis. Appetite is Normal Physical Exam Gen-AAO x 3, NAD, Afebrile Head-NCAT, EOMI, PERRLA, Anicteric Sclera, No Posterior Pharyngeal Erythema Neck-Supple, No JVD, No Thyromegaly, No Masses, No LAD, No Bruits Lungs-Clear to Auscultation Bilaterally, No Rales, No Rhonchi, No Wheezing, No Crepitus Chest-No S4, +S1, +S2, No S3, No Murmurs, No Rubs, No Gallops, No Ectopy Abdomen-Soft, Bowel Sounds Present, Non Tender, Non Distended, No Hepatomegaly, No Splenomegaly, No Palpable Masses, No Rebound, No Rigidity, No Guarding Musculoskeletal-Full Range of Motion Bilaterally, No CVAT Extremities-No Cyanosis, No Clubbing, No Edema Nuero-Cranial Nerves II-XII grossly intact, Motor WNL, DTRs WNL, Strength WNL, Non Focal Psych-Normal Mood Discharge Data Allergies Allergy/AdvReac Type Severity Reaction Status Date / Time bee venom protein (honey bee) Allergy Unknown ANAPHYLAXIS Verified 04/29/19 19:14 Consultations 04/29/19 19:54 ED Decision to Admit Stat 04/30/19 00:58 Consult Gastroenterology Routine Ordered Studies 04/29/19 17:36 CT abd pelvis IV con only Stat CT angio chest PE protocol Stat 04/29/19 20:57 CT head/brain wo con Stat 04/30/19 10:27 US venous doppler LE BI Stat Current Diagnoses Acute pancreatitis without necrosis or infection, unspecified (04/29/19) Allergies bee venom protein (honey bee) Allergy (Unknown, Verified 04/29/19 19:14) ANAPHYLAXIS Height/Weight/Isolation Height 5 ft 1 in Weight 66.5 kg Chemistry 04/30/19 04/30/19 05/01/19 09:16 13:53 09:15 Sodium 136 136 138 Potassium 3.0 L 3.4 L 3.0 L Chloride 106 105 102 Carbon Dioxide 16 L 19 L 26 Anion Gap 14.0 H 12.0 H 10.0 BUN 9 6 L 5 L Creatinine 0.53 L 0.55 L 0.43 L Glucose 124 H 132 H 116 H 05/02/19 07:26 Sodium 137 Potassium 3.2 L Chloride 102 Carbon Dioxide 28 Anion Gap 7.0 BUN 8 Creatinine 0.40 L Glucose 126 H Microbiology 04/29/19 17:56 Blood Aerobic Blood Culture - Preliminary No growth in Aerobic bottle after 48 hours. 04/29/19 17:56 Blood Anaerobic Blood Culture - Preliminary No growth in Anaerobic bottle after 48 hours. 04/29/19 16:37 Blood Aerobic Blood Culture - Preliminary No growth in Aerobic bottle after 48 hours. 04/29/19 16:37 Blood Anaerobic Blood Culture - Preliminary No growth in Anaerobic bottle after 48 hours. 04/29/19 18:10 Urine,Clean Catch Urine Culture - Final More than three types of organisms present, all high counts mixed probable skin natty - No further identifications or sensitivities to follow. Hospital Course (1) Pancreatitis: ACUTE PANCREATITIS RECURRENT Likely secondary to alcohol intake abdominal pain resolved, no nausea evaluated by GI diet advanced to low-fat diet Was given vigorous IV lactated Ringer's per GI: - Eventually will schedule her for outpt EGD/EUS to r/o pancreatic mass/cyst and can also further eval R liver 14mm hypodense lesion counselled on alcohol and smoking cessation POSSIBLE ASTHMA EXACERBATION, MILD, resolved CT chest: unremarkable Wheezing back to baseline Post to be taking Breo daily, will order while patient admitted PRN bronchodilators UTI ruled out Urine culture: Negative Blood culture negative x24 hours Was given empiric Ceftriaxone IV HEADACHE likely tension headache possible cervical muscle pain CT head: unremarkable Tylenol, Flexeril PRN HIGH ANION GAP METABOLIC ACIDOSIS likely from poor oral intake Resolved PANCYTOPENIA Possibly secondary to illness, hemodilution Peripheral smear: Normochromic normocytic red blood cells, scattered enlarged platelets, unremarkable leukocytes are all seen Blasts and schistocytes are not seen Inclusions of anaplasmosis and ehrlichiosis are not seen Repeat CBC tomorrow HYPOKALEMIA Replaced Repeat BMP tomorrow DM history of gestational Diabetes A1c 5.0 insulin sliding scale for now Resume current insulin regimen on discharge HTN stable continue Nifedipine, lisinopril DVT prophylaxis Lovenox held in light of thrombocytopenia SCDs for now Ambulation encouraged Disposition d/c home today Follow-up with primary care physician Follow-up with gastroenterology clinic for EGD and endoscopic ultrasound Total Time Total Time Spent Total Time Spent (In Minutes): 45 mins Total Time Includes: Examination of the Patient, Discharge Planning, Medication Reconciliation and Communication With Other Providers Discharge Plan Discharge Items Patient Disposition: Home - Self-Care Reason For Visit: PANCREATITIS Discharge Diagnosis: Acute pancreatitis Hypokalemia Abd Pain DM II Dehydration HTN Condition on Discharge: Good Health Concerns: Don't drink alcohol at all Activity: Per Instructions section Activity Comment: o Alcohol Lifting: Gradually increase as tolerated Bathing: No limitations Sexual Activity: When tolerated Exercise/Sports: Gradually increase as tolerated Driving/Machine Use: No limitations Weightbearing: Full weightbearing Non-emergency contact: Primary Care Provider and Consumer Science Teacher Call non-emergency contact if: you have any medication questions Follow-up/Referrals: Kyra Darnell [Physician] - (Please call the office upon discharge for an appoi ntment for EGD/endoscopic ultrasound) Harinder Nathan, [Primary Care Provider] - Diet: Carb Consistent or DM2 and Heart Healthy Addtl Attending Provider Instructions: Needs EUS with Dr Darnell Pending Studies at Discharge: No Visit Report Forms: Smoking Cessation Stand-Alone Forms: My [facility] Skilled Items Patient informed of condition?: Yes DNR: No Medications and DC Order Prescriptions: New multivitamin [Daily-Aislinn] Tablet 1 tab PO QAM Qty: 30 RF: 0 acetaminophen [Mapap (acetaminophen)] 325 mg Tablet 325 mg PO Q6H PRN (Reason: fever or pain) Qty: 30 RF: 0 folic acid 1 mg Tablet 1 mg PO QAM Qty: 30 RF: 0 oxycodone 5 mg Tablet 5 mg PO Q6H PRN (Reason: pain) Qty: 20 RF: 0 potassium chloride 20 mEq tablet extended release 20 meq PO DAILY Qty: 30 RF: 0 Continued albuterol sulfate [Ventolin HFA] 90 mcg/actuation Hfa Aerosol Inhaler 1 puff INHALATION Q6H PRN (Reason: SOB) RF: 0 insulin lispro 100 unit/mL insulin pen See Rx Instructions .ROUTE .COMPLEX RF: 0 Lantus Solostar U-100 Insulin 100 unit/mL (3 mL) insulin pen See Rx Instructions .ROUTE .COMPLEX RF: 0 nifedipine [Adalat CC] 30 mg Tablet Extended Release 30 mg PO DAILY Qty: 30 RF: 2 lisinopril 10 mg Tablet 10 mg PO DAILY RF: 0 montelukast 10 mg Tablet 10 mg PO HS RF: 0 Vitamin D3 400 unit PO DAILY RF: 0 ferrous gluconate 325 mg PO DAILY RF: 0 Discharge Orders: Discharge Order (Routine); Ordered 05/02/19 Ordered By: Teo Beltran Admission Data Admit Date/Time: 04/29/19 23:24 Attending Provider: Teo Beltran Admit Provider: Tristen Hawkins Primary Care Provider: Harinder Nathan Other Providers: Tristen Hawkins ; Manuela Lopez ; Brittany Ramirez ; Marisa Vasquez ; Demetrio Serna ; Kyra Darnell ; Dallas Sam ; Sasha Medina ; Michael Freed ; Ramone Aiken ; Arleth Phillips ; Richa Rogers ; Cheyanne Burns ; Halley Littlejohn ; Aster Nielsen
[2019-05-02] MEDS ORDERED: POTASSIUM CHLORIDE / WTR 10 MEQ/100 ML PLCT IV SCH (09:15)
[2019-05-02] MEDS: INSULIN ASPART 100 UNITS/ML 3 ML PEN SC SCH ×2 (09:23→12:55)
[2019-05-02] MEDS ORDERED: POTASSIUM CHLORIDE 20 MEQ/15 ML UDC PO STA (09:50)
[2019-05-02] MEDS: OXYCODONE HCL IR 5 MG TAB (IMMEDIATE RELEASE) PO PRN ×2 (10:23)
[2019-05-02] MEDS ORDERED: ALUMINUM/MAGNESIUM/SIMETH (MAALOX MAX) 30 ML UDC PO STA (10:59)
[2019-05-03] MEDS ORDERED: FAMOTIDINE 20 MG TAB PO SCH (09:00)
== END 2019-05-02 16:07 | disposition home or self-care (01) | DRG 439 ==
LOC: ED 16:09 → 3N 23:24 → SUATTDRO 23:24 → 3N 23:51

== ENCOUNTER 2019-08-19 19:29 | Inpatient (IN) ==
[2019-08-19] MEDS ORDERED: SODIUM CHLORIDE 0.9% 1000ML 1,000 ML IV ONE ×3 (19:48→22:33)
[2019-08-19] MEDS ORDERED: ONDANSETRON INJ 2 MG/ML 2 ML VIAL IV STA ×2 (19:48→21:45)
[2019-08-19 20:43] LABS: Basophils # (auto) 0.01 K/uL (0-0.2); Basophils % (auto) 0.1 %; Hematocrit (blood only) 49.3 % (37-47); Hemoglobin 16.6 g/dL (12.0-16.0); Immature Granulocytes # (auto) 0.03 K/uL (0.00-0.02); Immature Granulocytes % (auto) 0.2 %; Lymphocytes # (auto) 1.26 K/uL (1.2-3.4); Lymphocytes % (auto) 9.7 %; Mean Corpuscular Hemoglobin 32.5 pg (25-34); Mean Corpuscular Hgb Conc 33.7 g/dL (32-36); Mean Corpuscular Volume 96.5 fL (80-100); Mean Platelet Volume 10.7 fL (7.4-10.4); Monocytes # (auto) 0.58 K/uL (0.11-0.59); Monocytes % (auto) 4.5 %; Neutrophils # (auto) 11.13 K/uL (1.4-6.5); Neutrophils % (auto) 85.5 %; Platelet Count 208 K/uL (130-400); RDW Coefficient of Variation 13.2 % (11.5-14.5); RDW Standard Deviation 46.5 fL (36.4-46.3); Red Blood Count 5.11 M/uL (4.2-5.4); White Blood Count 13.01 K/uL (4.8-10.8)
[2019-08-19 21:05] LABS: Albumin Level 3.8 gm/dl (3.4-5.0); BUN Creatinine Ratio 21.6 (10-20); Bilirubin Direct 0.2 mg/dl (0-0.2); Calcium 8.5 mg/dl (8.5-10.1); Creatinine Clr Calc Pharmacy 59.9 ml/min; Est GFR (African American) 74.5; Est GFR (Non-African American) 64.3; Magnesium 1.4 mg/dl (1.8-2.4); Potassium 5.2 mmol/L (3.5-5.1)
[2019-08-19 21:10] LABS: Bilirubin,Total 0.7 mg/dl (0.2-1); Total Protein 8.7 gm/dl (6.4-8.2); Troponin I 0.032 ng/ml (0-0.045)
[2019-08-19 21:17] LABS: Appearance Urine Slightly Cloudy (Clear); Blood Urine 2+ (Negative); Color Urine Yellow; Glucose Urine UA Negative (Negative); Ketones Urine 2+ (Negative); Leukocyte Esterase Urine Negative (Negative); Nitrite Urine Negative (Negative); Protein Urine 3+ (Negative); Specific Gravity Urine >= 1.030 (1.000-1.030); Urobilinogen Urine Negative (Negative)
[2019-08-19 21:26] LABS: Influenza A virus by PCR Neg for Influ A (Neg); Influenza B virus by PCR Neg for Influ B (Neg)
[2019-08-19 21:32] LABS: Bilirubin Urine 1+ (Negative); Ictotest Urine Positive (Negative)
--- NOTE | 2019-08-19 21:39 | XRay Report ---
XR abdomen 2V w PA chest CLINICAL HISTORY: 33 years-old Female presenting with vomiting. TECHNIQUE: PA view of the chest and supine and upright views of the abdomen were obtained. COMPARISON: Chest x-ray from 04/29/[address] of the abdomen and pelvis from 04/29/2019. FINDINGS: Cardiomediastinal silhouette normal. Lungs and pleural spaces clear. Nonobstructive bowel gas pattern. No gross pneumoperitoneum. Allowing for bowel gas and stool, no calcifications to suggest nephrolithiasis. Calcification in the pelvis relates to the presence of a degenerated fibroid. Osseous structures normal. IMPRESSION: 1. No acute cardiopulmonary disease. 2. No radiographic evidence of acute intra-abdominal pathology. ACT 112: Negative or not required by law. Electronically signed by: Matheus Garcia M.D. 08/19/2019 9:38 PM
[2019-08-19 21:40] LABS: Epithelial Cell Urine 20-30 /lpf (0-5)
[2019-08-19 21:41] LABS: RBC Urine 0-4 /hpf (0-4)
[2019-08-19 21:42] LABS: Bacteria Urine 2+ (Negative)
[2019-08-19 22:04] LABS: Partial Thromboplastin Ratio 0.9; Partial Thromboplastin Time 24.7 Seconds (21.0-31.0)
[2019-08-19] MEDS ORDERED: MoRPHine SULFATE 4 MG/ML 1 ML CARP\\VIAL IV STA ×2 (22:19→23:15)
[2019-08-19] MEDS ORDERED: SODIUM CHLORIDE 0.9% 1000ML 1,000 ML IV SCH (22:30)
[2019-08-19] MEDS: MAGNESIUM SULFATE / D5W 1 GM/100 ML BAG IV SCH (22:36)
[2019-08-19] MEDS ORDERED: PROMETHAZINE HCL 12.5 MG in SODIUM CHLORIDE 0.9% 50 ML IV PRN (22:41)
[2019-08-19] MEDS ORDERED: METOPROLOL TARTRATE 1 MG/ML VIAL IV STA (22:53)
--- NOTE | 2019-08-19 23:07 | Emergency Department Note ---
Entered by Sophie Orr acting as a scribe for Saurav Holguin History of Present Illness General Chief complaint: GI Assessment Stated complaint: NECK, BACK AND HEAD PAIN Time Seen by Provider: 08/19/19 19:35 Source: patient History of Present Illness Onset (ago): day(s) 4 Location: head, neck and abdomen Pain Consistency: + constant Maximum Pain Intensity: 9 Current Pain Intensity: 9 Relieved By: + none Associated symptoms: + headaches, + malaise and + other (abdominal pain, neck pain) Treatments prior to arrival: none The patient is a 33 year old female who presents to the Emergency Room with complaints of abdominal pain that has been ongoing for the past 4 days. She notes that her pain has been worsening. Her main complaint is abdominal pain, but she also reports neck pain and severe headache. The patient denies chance of , blood in stool, or urinary symptoms. The patient has been taking Tylenol for her pain, but did not take any before arrival. The patient states that she had 6-9 drinks of vodka yesterday. She states she has not eaten anything in the last 4 days. Home Medications Home Medications Medication Instructions Recorded Confirmed Type albuterol sulfate [Ventolin HFA] 1 puff INHALATION Q6H PRN 08/09/18 08/19/19 History Lantus Solostar U-100 Insulin See Rx Instructions .ROUTE .COMPLEX 10/07/18 08/19/19 History insulin lispro See Rx Instructions .ROUTE .COMPLEX 10/07/18 08/19/19 History nifedipine [Adalat CC] 30 mg PO DAILY #30 tab 10/07/18 08/19/19 Rx montelukast 10 mg PO HS 05/01/19 08/19/19 History acetaminophen [Mapap 325 mg PO Q6H PRN #30 tab 05/02/19 Rx (acetaminophen)] folic acid 1 mg PO QAM #30 tab 05/02/19 08/19/19 Rx multivitamin [Daily-Aislinn] 1 tab PO QAM #30 tab 05/02/19 08/19/19 Rx oxycodone 5 mg PO Q6H PRN #20 tab 05/02/19 08/19/19 Rx potassium chloride 20 meq PO DAILY #30 tab 05/02/19 08/19/19 Rx cetirizine 10 mg PO DAILY 08/19/19 08/19/19 History cholecalciferol (vitamin D3) 50,000 unit PO WK 08/19/19 08/19/19 History cyclobenzaprine 5 mg PO BID PRN 08/19/19 08/19/19 History ferrous sulfate 325 mg PO DAILY 08/19/19 08/19/19 History hydroxyzine HCl 50 mg PO BID PRN 08/19/19 08/19/19 History trazodone 50 mg PO HS PRN 08/19/19 08/19/19 History vilazodone [Viibryd] 20 mg PO DAILY 08/19/19 08/19/19 History Allergies Allergy/AdvReac Type Severity Reaction Status Date / Time bee venom protein (honey bee) Allergy Unknown ANAPHYLAXIS Verified 04/29/19 19:14 Past Med/Surg History Medical History Anxiety H/O Asthma Cardiac murmur CONGENITAL -- BENIGN. 10/09/15 echo: The examination is adequate to evaluate the referral indication. The qualitative LV ejection fraction is 60-64% (normal). The left ventricular diastolic function is normal. No significant valvular disease is present. Depression H/O Diabetes GERD (gastroesophageal reflux disease) R/T Gestational diabetes Scoliosis MINOR Surgical History History of adenoidectomy History of section x 2 History of tonsillectomy Family History Other Adopted Social History Preferred Language: Swedish 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: Effective Garment Tag Stringer Required: No Beliefs That Will Affect Care: None Current Living Situation: Spouse Feels Safe at Home: Yes Smoking Status: Current every day smoker Tobacco Type: cigarettes ; Cigarettes Per Day: 2-3 per day, "social smoker" ; Second Hand Exposure: No ; Hx Alcohol Use: Yes Alcohol type: wine and hard liquor Hx Substance Use: No Review of Systems See HPI for pertinent positives & negatives. and A total of 10 systems reviewed and were otherwise negative Physical Exam Vital Signs Vital Signs - 24 hr 08/19/19 19:30 08/19/19 21:11 08/19/19 22:33 Temperature 36.6 C Temperature Source Oral Pulse Rate 148 H Pulse Rate [Finger] 110 H 133 H Respiratory Rate 18 22 20 Respiratory Effort / Characteristics Non-Labored Respiratory Depth Normal Respiratory Pattern Regular Blood Pressure 127/97 Blood Pressure [Right Arm] 133/101 H 178/116 H Blood Pressure Mean 107 Blood Pressure Mean [Right Arm] 111 136 Pulse Oximetry 98 97 99 Oxygen Delivery Method Room Air Room Air Sepsis Recent Fever Within 48 Hours No Sepsis New/Unexplained Change in Mental Status No Sepsis Action Taken by Nursing No Action Required GENERAL: She is oriented to person, place, and time. She appears well-developed and well-nourished. She does not appear distressed. HENT: Exam performed. Head: Normocephalic and atraumatic. Right Ear: External ear normal. No mastoid tenderness. Left Ear: External ear normal. No mastoid tenderness. Mouth/Throat: The oropharynx is clear and moist. No trismus in the jaw. No dental abscesses or uvula swelling. No oropharyngeal exudate or tonsillar abscesses. EYES: Conjunctivae and EOM are normal. Pupils are equal, round, and reactive to light. Right eye exhibits no discharge. Left eye exhibits no discharge. No scleral icterus. NECK: Normal range of motion. Neck supple. No JVD present. No spinous process tenderness present. No carotid bruit present. No rigidity. No tracheal deviation and normal range of motion present. No Brudzinski's sign and no Kernig's sign noted. CV: Tachycardic, regular rhythm, normal heart sounds and intact distal pulses. There is no peripheral edema. Palpable radial pulses bue. PULM/CHEST: Effort normal and breath sounds normal. No respiratory distress. No stridor. She has no wheezes. She has no rales. Chest Wall: She exhibits no tenderness. ABD: Epigastric pain on palpation. The abdomen is soft. Bowel sounds are normal. She has no distension. No mass is present. There is no rebound, no guarding, no Arvizu's sign and no tenderness at McBurney's point. Rovsig negative MUSC/SKEL: Normal range of motion. There is no peripheral edema, tenderness or deformity. LYMPH: No cervical adenopathy. NEURO: She is alert and oriented to person, place, and time. She has normal st rength. No cranial nerve deficit or sensory deficit. Coordination and gait normal. GCS eye subscore is 4. GCS verbal subscore is 5. GCS motor subscore is 6. cerbellar tests wnl. SKIN: Skin is warm and dry. She is not diaphoretic. PSYCH: She has a normal mood and affect. Her behavior is normal. Judgment and thought content normal. Course Course 1950: Past medical records reviewed. The patient was evaluated in room C06. A complete history and physical exam was performed. 2144: The patient is still vomiting. More Zofran is being ordered for her. 5: Patient remains tachycardic despite getting 1 L of fluid. Labs show lactic acid of 3.7. White count of 13.01. Hemoglobin 16.6. Potassium 5.2. Elysium 1.4. AST ALT once 117 and 106 respectively. Lipase 1871. It is thought that the patient is suffering from pancreatitis due to her excessive alcohol consumption as well as not eating. The patient's lactic acidemia is thought to be due to the patient's poor nutritional status. We will conduct a repeat lactic after her second fluid bolus. I spoke to Dr. Hawkins, [facility] [address] hospitalist, who agreed to take over care of the patient. The patient understands and is agreeable to the treatment plan. She will be evaluated for further treatment. Administered Medications Magnesium Sulfate/Dextrose (Magnesium Sulfate / D5w) 1 gm in 100 mls @ 100 mls/hr IV Q1H GEOVANNA Stop: 08/20/19 00:29 Last Admin: 08/19/19 22:36 Dose: 100 mls/hr Documented by: [id number] Discontinued Medications Sodium Chloride (Nss 1000ml) 1,000 mls @ 999 mls/hr IV .Q1H1M ONE Stop: 08/19/19 20:48 Last Infusion: 08/19/19 21:28 Dose: 0 mls/hr Documented by: [id number] Admin: 08/19/19 20:38 Dose: 999 mls/hr Documented by: [id number] Sodium Chloride (Nss 1000ml) 1,000 mls @ 999 mls/hr IV .Q1H1M ONE Stop: 08/19/19 22:36 Last Infusion: 08/19/19 22:55 Dose: 0 mls/hr Documented by: [id number] Admin: 08/19/19 22:18 Dose: 999 mls/hr Documented by: [id number] Morphine Sulfate (Morphine Sulfate) 4 mg IV NOW STA Stop: 08/19/19 22:20 Last Admin: 08/19/19 22:36 Dose: 4 mg Documented by: [id number] Ondansetron HCl (Zofran) 4 mg IV NOW STA Stop: 08/19/19 19:49 Last Admin: 08/19/19 20:38 Dose: 4 mg Documented by: [id number] Ondansetron HCl (Zofran) 4 mg IV NOW STA Stop: 08/19/19 21:46 Last Admin: 08/19/19 22:18 Dose: 4 mg Documented by: [id number] Medical Decision Making Medical Records Attestation: I reviewed the patient's medical records. Home Medications Current Medication List: was personally reviewed by me Laboratory Data Attestation: I reviewed the patient's lab results. Result diagrams: 08/19/19 Unknown 08/19/19 Unknown Lab Results 08/19/19 08/19/19 08/19/19 Range/Units 19:35 20:30 21:40 WBC (4.8-10.8) K/uL RBC (4.2-5.4) M/uL Hgb (12.0-16.0) g/dL Hct (37-47) % MCV (80-100) fL MCH (25-34) pg MCHC (32-36) g/dL RDW Std Deviation (36.4-46.3) fL RDW Coeff of Arnold (11.5-14.5) % Plt Count (130-400) K/uL MPV (7.4-10.4) fL Immature Gran % (Auto) % Neut % (Auto) % Lymph % (Auto) % Worth % (Auto) % Eos % (Auto) % Baso % (Auto) % Immature Gran # (Auto) (0.00-0.02) K/uL Neut # (Auto) (1.4-6.5) K/uL Lymph # (Auto) (1.2-3.4) K/uL Worth # (Auto) (0.11-0.59) K/uL Eos # (Auto) (0-0.5) K/uL Baso # (Auto) (0-0.2) K/uL PT 10.0 (9.0-12.0) Seconds INR 1.0 (0.9-1.1) APTT 24.7 (21.0-31.0) Seconds PTT Ratio 0.9 Sodium (136-145) mmol/L Potassium (3.5-5.1) mmol/L Chloride (98-107) mmol/L Carbon Dioxide (21-32) mmol/L Anion Gap (3-11) BUN (7-18) mg/dl Creatinine (0.6-1.2) mg/dl Est Cr Clr Drug Dosing ml/min Est GFR ( Amer) Est GFR (Non-Af Amer) BUN/Creatinine Ratio (10-20) Glucose (70-99) mg/dl POC Glucose 175 H 167 H (70-99) Lactate (0.4-2.0) mmol/L Calcium (8.5-10.1) mg/dl Magnesium (1.8-2.4) mg/dl Total Bilirubin (0.2-1) mg/dl Direct Bilirubin (0-0.2) mg/dl AST (15-37) U/L ALT (12-78) U/L Alkaline Phosphatase (45-117) U/L Troponin I (0-0.045) ng/ml Total Protein (6.4-8.2) gm/dl Albumin (3.4-5.0) gm/dl Lipase (73-393) U/L Urine Color Urine Appearance (Clear) Urine pH (4.5-7.5) Ur Specific [place] (1.000-1.030) Urine Protein (Negative) Urine Glucose (UA) (Negative) Urine Ketones (Negative) Urine Blood (Negative) Urine Nitrite (Negative) Urine Bilirubin (Negative) Urine Urobilinogen (Negative) Ur Leukocyte Esterase (Negative) Urine RBC (0-4) /hpf Urine WBC (0-5) /hpf Ur Epithelial Cells (0-5) /lpf Urine Bacteria (Negative) Granular Casts (0) /lpf WBC Casts (0) /lpf POC Ur Test (NEG) Influenza Type A (PCR) (Neg) Influenza Type B (PCR) (Neg) 08/19/19 08/19/19 08/19/19 Range/Units 21:40 Unknown Unknown WBC 13.01 H (4.8-10.8) K/uL RBC 5.11 (4.2-5.4) M/uL Hgb 16.6 H (12.0-16.0) g/dL Hct 49.3 H (37-47) % MCV 96.5 (80-100) fL MCH 32.5 (25-34) pg MCHC 33.7 (32-36) g/dL RDW Std Deviation 46.5 H (36.4-46.3) fL RDW Coeff of Arnold 13.2 (11.5-14.5) % Plt Count 208 (130-400) K/uL MPV 10.7 H (7.4-10.4) fL Immature Gran % (Auto) 0.2 % Neut % (Auto) 85.5 % Lymph % (Auto) 9.7 % Worth % (Auto) 4.5 % Eos % (Auto) 0.0 % Baso % (Auto) 0.1 % Immature Gran # (Auto) 0.03 H (0.00-0.02) K/uL Neut # (Auto) 11.13 H (1.4-6.5) K/uL Lymph # (Auto) 1.26 (1.2-3.4) K/uL Worth # (Auto) 0.58 (0.11-0.59) K/uL Eos # (Auto) 0.00 (0-0.5) K/uL Baso # (Auto) 0.01 (0-0.2) K/uL PT (9.0-12.0) Seconds INR (0.9-1.1) APTT (21.0-31.0) Seconds PTT Ratio Sodium 131 L (136-145) mmol/L Potassium 5.2 H (3.5-5.1) mmol/L Chloride 93 L (98-107) mmol/L Carbon Dioxide 14 L (21-32) mmol/L Anion Gap 24.0 H (3-11) BUN 24 H (7-18) mg/dl Creatinine 1.13 (0.6-1.2) mg/dl Est Cr Clr Drug Dosing 59.9 ml/min Est GFR ( Amer) 74.5 Est GFR (Non-Af Amer) 64.3 BUN/Creatinine Ratio 21.6 H (10-20) Glucose 177 H (70-99) mg/dl POC Glucose (70-99) Lactate 3.7 H* (0.4-2.0) mmol/L Calcium 8.5 (8.5-10.1) mg/dl Magnesium 1.4 L (1.8-2.4) mg/dl Total Bilirubin 0.7 (0.2-1) mg/dl Direct Bilirubin 0.2 (0-0.2) mg/dl AST 117 H (15-37) U/L ALT 106 H (12-78) U/L Alkaline Phosphatase 59 (45-117) U/L Troponin I 0.032 (0-0.045) ng/ml Total Protein 8.7 H (6.4-8.2) gm/dl Albumin 3.8 (3.4-5.0) gm/dl Lipase 1871 H (73-393) U/L Urine Color Urine Appearance (Clear) Urine pH (4.5-7.5) Ur Specific [place] (1.000-1.030) Urine Protein (Negative) Urine Glucose (UA) (Negative) Urine Ketones (Negative) Urine Blood (Negative) Urine Nitrite (Negative) Urine Bilirubin (Negative) Urine Urobilinogen (Negative) Ur Leukocyte Esterase (Negative) Urine RBC (0-4) /hpf Urine WBC (0-5) /hpf Ur Epithelial Cells (0-5) /lpf Urine Bacteria (Negative) Granular Casts (0) /lpf WBC Casts (0) /lpf POC Ur Test (NEG) Influenza Type A (PCR) (Neg) Influenza Type B (PCR) (Neg) 08/19/19 08/19/19 08/19/19 Range/Units Unknown Unknown Unknown WBC (4.8-10.8) K/uL RBC (4.2-5.4) M/uL Hgb (12.0-16.0) g/dL Hct (37-47) % MCV (80-100) fL MCH (25-34) pg MCHC (32-36) g/dL RDW Std Deviation (36.4-46.3) fL RDW Coeff of Arnold (11.5-14.5) % Plt Count (130-400) K/uL MPV (7.4-10.4) fL Immature Gran % (Auto) % Neut % (Auto) % Lymph % (Auto) % Worth % (Auto) % Eos % (Auto) % Baso % (Auto) % Immature Gran # (Auto) (0.00-0.02) K/uL Neut # (Auto) (1.4-6.5) K/uL Lymph # (Auto) (1.2-3.4) K/uL Worth # (Auto) (0.11-0.59) K/uL Eos # (Auto) (0-0.5) K/uL Baso # (Auto) (0-0.2) K/uL PT (9.0-12.0) Seconds INR (0.9-1.1) APTT (21.0-31.0) Seconds PTT Ratio Sodium (136-145) mmol/L Potassium (3.5-5.1) mmol/L Chloride (98-107) mmol/L Carbon Dioxide (21-32) mmol/L Anion Gap (3-11) BUN (7-18) mg/dl Creatinine (0.6-1.2) mg/dl Est Cr Clr Drug Dosing ml/min Est GFR ( Amer) Est GFR (Non-Af Amer) BUN/Creatinine Ratio (10-20) Glucose (70-99) mg/dl POC Glucose (70-99) Lactate (0.4-2.0) mmol/L Calcium (8.5-10.1) mg/dl Magnesium (1.8-2.4) mg/dl Total Bilirubin (0.2-1) mg/dl Direct Bilirubin (0-0.2) mg/dl AST (15-37) U/L ALT (12-78) U/L Alkaline Phosphatase (45-117) U/L Troponin I (0-0.045) ng/ml Total Protein (6.4-8.2) gm/dl Albumin (3.4-5.0) gm/dl Lipase (73-393) U/L Urine Color Yellow Urine Appearance Slightly Cloudy (Clear) Urine pH 6.0 (4.5-7.5) Ur Specific [place] >= 1.030 (1.000-1.030) Urine Protein 3+ H (Negative) Urine Glucose (UA) Negative (Negative) Urine Ketones 2+ H (Negative) Urine Blood 2+ H (Negative) Urine Nitrite Negative (Negative) Urine Bilirubin 1+ H (Negative) Urine Urobilinogen Negative (Negative) Ur Leukocyte Esterase Negative (Negative) Urine RBC 0-4 (0-4) /hpf Urine WBC 5-10 H (0-5) /hpf Ur Epithelial Cells 20-30 H (0-5) /lpf Urine Bacteria 2+ H (Negative) Granular Casts 1-5 H (0) /lpf WBC Casts 1-5 H (0) /lpf POC Ur Test NEG (NEG) Influenza Type A (PCR) Neg for Influ A (Neg) Influenza Type B (PCR) Neg for Influ B (Neg) Imaging Data Radiologist's Impression: Radiology results as stated below per my review and the radiologist's interpretation: XR abdomen 2V w PA chest CLINICAL HISTORY: 33 years-old Female presenting with vomiting. TECHNIQUE: PA view of the chest and supine and upright views of the abdomen were obtained. COMPARISON: Chest x-ray from 04/29/[address] of the abdomen and pelvis from 04/29/2019. FINDINGS: Cardiomediastinal silhouette normal. Lungs and pleural spaces clear. Nonobstructive bowel gas pattern. No gross pneumoperitoneum. Allowing for bowel gas and stool, no calcifications to suggest nephrolithiasis. Calcification in the pelvis relates to the presence of a degenerated fibroid. Osseous structures normal. IMPRESSION: 1. No acute cardiopulmonary disease. 2. No radiographic evidence of acute intra-abdominal pathology. ACT 112: Negative or not required by law. Electronically signed by: Matheus Garcia M.D. 08/19/2019 9:38 PM MDM Narrative 1950: Past medical records reviewed. The patient was evaluated in room C06. A c omplete history and physical exam was performed. 2144: The patient is still vomiting. More Zofran is being ordered for her. 2225: Patient remains tachycardic despite getting 1 L of fluid. Labs show lactic acid of 3.7. White count of 13.01. Hemoglobin 16.6. Potassium 5.2. Elysium 1.4. AST ALT once 117 and 106 respectively. Lipase 187. It is thought that the patient is suffering from pancreatitis due to her excessive alcohol consumption as well as not eating. The patient's lactic acidemia is thought to be due to the patient's poor nutritional status. We will conduct a repeat lactic after her second fluid bolus. I spoke to Dr. Hawkins, [facility] [address] hospitalist, who agreed to take over care of the patient. The patient understands and is agreeable to the treatment plan. She will be evaluated for further treatment. Impression & Plan Pancreatitis, Hypomagnesemia, Alcohol abuse, Nausea & vomiting Discharge Plan Visit Data Chief Complaint: GI Assessment Stated Complaint: NECK, BACK AND HEAD PAIN ED Provider: Saurav Holguin Discharge Problem: Pancreatitis, Hypomagnesemia, Alcohol abuse, Nausea & vomiting Forms Stand Alone Forms: [facility] [id number] Prescriptions Prescriptions: No Action albuterol sulfate [Ventolin HFA] 90 mcg/actuation Hfa Aerosol Inhaler 1 puff INHALATION Q6H PRN (Reason: SOB) RF: 0 insulin lispro 100 unit/mL insulin pen See Rx Instructions .ROUTE .COMPLEX RF: 0 Lantus Solostar U-100 Insulin 100 unit/mL (3 mL) insulin pen See Rx Instructions .ROUTE .COMPLEX RF: 0 nifedipine [Adalat CC] 30 mg Tablet Extended Release 30 mg PO DAILY Qty: 30 RF: 2 montelukast 10 mg Tablet 10 mg PO HS RF: 0 multivitamin [Daily-Aislinn] Tablet 1 tab PO QAM Qty: 30 RF: 0 acetaminophen [Mapap (acetaminophen)] 325 mg Tablet 325 mg PO Q6H PRN (Reason: fever or pain) Qty: 30 RF: 0 folic acid 1 mg Tablet 1 mg PO QAM Qty: 30 RF: 0 oxycodone 5 mg Tablet 5 mg PO Q6H PRN (Reason: pain) Qty: 20 RF: 0 potassium chloride 20 mEq tablet extended release 20 meq PO DAILY Qty: 30 RF: 0 Viibryd 20 mg tablet 20 mg PO DAILY RF: 0 hydroxyzine HCl 50 mg tablet 50 mg PO BID PRN (Reason: Anxiety) RF: 0 trazodone 50 mg tablet 50 mg PO HS PRN (Reason: Insomnia) RF: 0 cyclobenzaprine 5 mg tablet 5 mg PO BID PRN (Reason: Muscle Spasm) RF: 0 cetirizine 10 mg tablet 10 mg PO DAILY RF: 0 ferrous sulfate 325 mg (65 mg iron) Tablet,Delayed Release (Dr/Ec) 325 mg PO DAILY RF: 0 cholecalciferol (vitamin D3) 50,000 unit Tablet 50,000 unit PO WK RF: 0 Discharge Problem: Pancreatitis Qualifiers: Chronicity: acute Pancreatitis type: unspecified pancreatitis type Acute p ancreatitis complication: unspecified Qualified Code(s): K85.90 - Acute pancreatitis without necrosis or infection, unspecified Nausea & vomiting Qualifiers: Vomiting type: unspecified Vomiting Intractability: unspecified Qualified Code(s): R11.2 - Nausea with vomiting, unspecified The scribe's documentation has been prepared under my direction and personally reviewed by me in its entirety. I confirm that the note above accurately ref lects all work, treatment, procedures, and medical decision making performed by me.
[2019-08-19 23:10] LABS: Thyroid Stimulating Hormone 0.545 uIu/ml (0.300-4.500)
[2019-08-19] MEDS ORDERED: MULTI-VITAMIN INFUSION 10 ML, THIAMINE HCL 100 MG, FOLIC ACID 1 MG in SODIUM CHLORIDE 0... IV ONE (23:14)
[2019-08-19] MEDS ORDERED: GABAPENTIN 600 MG TAB PO STA (23:14)
[2019-08-19 23:20] LABS: Base Excess VBG -13.3 mEq/L; HCO3 VBG 12 mmol/L; Oxygen Saturation VBG 78.6 %; PCO2 VBG 28 mmHg (38-50); PO2 VBG 48 mmHg; pH VBG 7.26 (7.36-7.41)
[2019-08-19 23:51] LABS: Amphetamines+Metham, Urine Neg (Neg); Barbiturates, Urine Neg (Neg); Benzodiazepine, Urine Neg (Neg); Cocaine, Urine Neg (Neg); MDMA (Ecstacy), Urine Neg (Neg); Methadone, Urine Neg (Neg); Opiate, Urine Neg (Neg); Phencyclidine, Urine Neg (Neg)
[2019-08-19 23:53] LABS: BUN Creatinine Ratio 28.5 (10-20); Calcium 7.1 mg/dl (8.5-10.1); Est GFR (African American) 128.4; Est GFR (Non-African American) 110.8; Potassium 4.2 mmol/L (3.5-5.1)
--- NOTE | 2019-08-20 00:07 | History & Physical Report ---
Date of Service August 20, 2019 Assessment & Plan (1) Pancreatitis: Alcoholic pancreatitis Recurrent bouts Probable alcohol abuse AGMA, ARF, hyperkalemia secondary to illness Alcoholic ketoacidosis HTN, elevated secondary discomfort/alcohol abuse Sepsis secondary to aspiration pneumonitis hx gestational diabetes, well controlled as of recent outpatient hemoglobin A1c of 5.4 last May 2019 Intermittent insulin coverage at home post . Chronic anemia, hemoglobin better than baseline due to hemoconcentration ADD, stable off medications as per patient past tobacco abuse Medical telemetry Bowel rest Monitor renal function response to IVF Patient re-counseled regarding importance of complete abstinence from alcohol given propensity for recurrent pancreatitis episodes. DT precautions GI consult RE recurrent pancreatitis Analgesia, facilitate home calcium channel shilpi, titrate as needed Cultures. Unasyn for aspiration pneumonitis Basal insulin, ISS BG goal 1 40-1 80 DVT prophylaxis. Lovenox subcu Full code History of Present Illness Chief Complaint: Abdominal pain, nausea vomiting Primary Care Provider: Harinder Nathan, History obtained from patient and records. Medical history significant for recurrent pancreatitis, gestational diabetes, HTN, ADD as per records, asthma, past tobacco abuse, chronic anemia (baseline hemoglobin 11) Recent confinement April 2019 for recurrent pancreatitis attributed to alcohol intake. Patient has been ill since last week. Achy abdominal pain with constipation, nausea, emesis symptoms. Pleuritic chest pain with junky cough symptoms with S OB.. Achy headache/neck pain. Last drink of alcohol was yesterday as per patient. 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 Allergies Allergy/AdvReac Type Severity Reaction Status Date / Time bee venom protein (honey bee) Allergy Unknown ANAPHYLAXIS Verified 08/19/19 23:25 Home Medications Home Medications Medication Instructions Recorded Confirmed Type albuterol sulfate [Ventolin HFA] 1 puff INHALATION Q6H PRN 08/09/18 08/19/19 History Lantus Solostar U-100 Insulin See Rx Instructions .ROUTE .COMPLEX 10/07/18 08/19/19 History insulin lispro See Rx Instructions .ROUTE .COMPLEX 10/07/18 08/19/19 History nifedipine [Adalat CC] 30 mg PO DAILY #30 tab 10/07/18 08/19/19 Rx montelukast 10 mg PO HS 05/01/19 08/19/19 History folic acid 1 mg PO QAM #30 tab 05/02/19 08/19/19 Rx oxycodone 5 mg PO Q6H PRN #20 tab 05/02/19 08/19/19 Rx potassium chloride 20 meq PO DAILY #30 tab 05/02/19 08/19/19 Rx PNV,calcium 89-[id number]-kduco acid 1 tab PO DAILY 08/19/19 08/19/19 History [ Vitamin Plus Low Iron] cetirizine 10 mg PO DAILY 08/19/19 08/19/19 History cholecalciferol (vitamin D3) 400 unit PO DAILY 08/19/19 08/19/19 History cyclobenzaprine 5 mg PO BID PRN 08/19/19 08/19/19 History epinephrine [EpiPen 2-Jason] 0.3 mg IM Q3H PRN 08/19/19 08/19/19 History ferrous sulfate 325 mg PO DAILY 08/19/19 08/19/19 History hydroxyzine HCl 50 mg PO BID PRN 08/19/19 08/19/19 History trazodone 50 mg PO HS PRN 08/19/19 08/19/19 History vilazodone [Viibryd] 20 mg PO DAILY 08/19/19 08/19/19 History Past Med/Surg History Medical History Anxiety H/O Asthma Cardiac murmur CONGENITAL -- BENIGN. 10/09/15 echo: The examination is adequate to evaluate the referral indication. The qualitative LV ejection fraction is 60-64% (normal). The left ventricular diastolic function is normal. No significant valvular disease is present. Depression H/O Diabetes GERD (gastroesophageal reflux disease) R/T Gestational diabetes Scoliosis MINOR Surgical History History of adenoidectomy History of section x 2 History of tonsillectomy Family History Other Adopted Social History Preferred Language: Citizen Of [place] 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: Effective Paper Box Cutter Required: No Beliefs That Will Affect Care: None Current Living Situation: Significant Other and Other Current Living Situation Comment: lives with boyfriend and 2 children in a condo like apartment Other Information That Helps Us Care for You: No Feels Safe at Home: Yes Safety Concerns: Feels Safe At This Time Smoking Status: Current every day smoker Tobacco Type: cigarettes ; Cigarettes Per Day: 1-2 ; Do You Dip or Chew Tobacco: No ; Second Hand Exposure: Yes ; Tobacco Cessation Education Requested by Patient: No Hx Alcohol Use: Yes Alcohol type: hard liquor Hx Substance Use: No Review of Systems Review of Systems: As per HPI, all 10 systems reviewed, all other ROS negative Physical Exam Physical Exam: GENERAL: Slightly uncomfortable, no respiratory distress SKIN: Pallor, warm HEENT: Pale palpebral conjunctivae, no ptosis, dry buccal mucosa NECK : Supple, no tenderness CHEST : Decreased breath sounds, no tenderness HEART : Tachycardic, no obvious murmurs ABDOMEN: Some distention, epigastric tenderness EXTREMITIES : No LE swelling/tenderness, no other conspicuous deformities noted NEUROLOGIC : Coherent, no facial asymmetry, no other gross focality Results & Data Vital Signs (Past 12 Hours) Vital Signs Temp Pulse Pulse Resp BP BP Pulse Ox 08/19/19 22:33 133 H 20 178/116 H 99 08/19/19 21:11 110 H 22 133/101 H 97 08/19/19 19:30 36.6 C 148 H 18 127/97 98 Laboratory Results Laboratory Results WBC 13.01 K/uL (4.8-10.8) H 08/19/19 Unknown RBC 5.11 M/uL (4.2-5.4) 08/19/19 Unknown Hgb 16.6 g/dL (12.0-16.0) H 08/19/19 Unknown Hct 49.3 % (37-47) H 08/19/19 Unknown MCV 96.5 fL (80-100) 08/19/19 Unknown MCH 32.5 pg (25-34) 08/19/19 Unknown MCHC 33.7 g/dL (32-36) 08/19/19 Unknown RDW Std Deviation 46.5 fL (36.4-46.3) H 08/19/19 Unknown RDW Coeff of Arnold 13.2 % (11.5-14.5) 08/19/19 Unknown Plt Count 208 K/uL (130-400) 08/19/19 Unknown MPV 10.7 fL (7.4-10.4) H 08/19/19 Unknown Immature Gran % (Auto) 0.2 % 08/19/19 Unknown Neut % (Auto) 85.5 % 08/19/19 Unknown Lymph % (Auto) 9.7 % 08/19/19 Unknown [place] % (Auto) 4.5 % 08/19/19 Unknown Eos % (Auto) 0.0 % 08/19/19 Unknown Baso % (Auto) 0.1 % 08/19/19 Unknown Immature Gran # (Auto) 0.03 K/uL (0.00-0.02) H 08/19/19 Unknown Neut # (Auto) 11.13 K/uL (1.4-6.5) H 08/19/19 Unknown Lymph # (Auto) 1.26 K/uL (1.2-3.4) 08/19/19 Unknown [place] # (Auto) 0.58 K/uL (0.11-0.59) 08/19/19 Unknown Eos # (Auto) 0.00 K/uL (0-0.5) 08/19/19 Unknown Baso # (Auto) 0.01 K/uL (0-0.2) 08/19/19 Unknown PT 10.0 Seconds (9.0-12.0) 08/19/19 21:40 INR 1.0 (0.9-1.1) 08/19/19 21:40 APTT 24.7 Seconds (21.0-31.0) 08/19/19 21:40 PTT Ratio 0.9 08/19/19 21:40 VBG pH 7.26 (7.36-7.41) L 08/19/19 22:54 VBG pCO2 28 mmHg (38-50) L 08/19/19 22:54 VBG pO2 48 mmHg 08/19/19 22:54 VBG HCO3 12 mmol/L 08/19/19 22:54 VBG O2 Saturation 78.6 % 08/19/19 22:54 VBG Base Excess -13.3 mEq/L 08/19/19 22:54 Sodium 131 mmol/L (136-145) L 08/19/19 Unknown Potassium 5.2 mmol/L (3.5-5.1) H 08/19/19 Unknown Chloride 93 mmol/L (98-107) L 08/19/19 Unknown Carbon Dioxide 14 mmol/L (21-32) L 08/19/19 Unknown Anion Gap 24.0 (3-11) H 08/19/19 Unknown BUN 24 mg/dl (7-18) H 08/19/19 Unknown Creatinine 1.13 mg/dl (0.6-1.2) 08/19/19 Unknown Est Cr Clr Drug Dosing 59.9 ml/min 08/19/19 Unknown Est GFR ( Amer) 74.5 08/19/19 Unknown Est GFR (Non-Af Amer) 64.3 08/19/19 Unknown BUN/Creatinine Ratio 21.6 (10-20) H 08/19/19 Unknown Glucose 177 mg/dl (70-99) H 08/19/19 Unknown POC Glucose 167 (70-99) H 08/19/19 20:30 Lactate 3.0 mmol/L (0.4-2.0) H* 08/19/19 22:54 Calcium 8.5 mg/dl (8.5-10.1) 08/19/19 Unknown Magnesium 1.4 mg/dl (1.8-2.4) L 08/19/19 Unknown Total Bilirubin 0.7 mg/dl (0.2-1) 08/19/19 Unknown Direct Bilirubin 0.2 mg/dl (0-0.2) 08/19/19 Unknown AST 117 U/L (15-37) H 08/19/19 Unknown ALT 106 U/L (12-78) H 08/19/19 Unknown Alkaline Phosphatase 59 U/L (45-117) 08/19/19 Unknown Troponin I 0.032 ng/ml (0-0.045) 08/19/19 Unknown Total Protein 8.7 gm/dl (6.4-8.2) H 08/19/19 Unknown Albumin 3.8 gm/dl (3.4-5.0) 08/19/19 Unknown Lipase 1871 U/L (73-393) H 08/19/19 Unknown Procalcitonin 0.25 ng/ml (0-0.5) 08/19/19 Unknown TSH 0.545 uIu/ml (0.300-4.500) 08/19/19 Unknown Urine Color Yellow 08/19/19 Unknown Urine Appearance Slightly Cloudy (Clear) 08/19/19 Unknown Urine pH 6.0 (4.5-7.5) 08/19/19 Unknown Ur Specific [place] >= 1.030 (1.000-1.030) 08/19/19 Unknown Urine Protein 3+ (Negative) H 08/19/19 Unknown Urine Glucose (UA) Negative (Negative) 08/19/19 Unknown Urine Ketones 2+ (Negative) H 08/19/19 Unknown Urine Blood 2+ (Negative) H 08/19/19 Unknown Urine Nitrite Negative (Negative) 08/19/19 Unknown Urine Bilirubin 1+ (Negative) H 08/19/19 Unknown Urine Urobilinogen Negative (Negative) 08/19/19 Unknown Ur Leukocyte Esterase Negative (Negative) 08/19/19 Unknown Urine RBC 0-4 /hpf (0-4) 08/19/19 Unknown Urine WBC 5-10 /hpf (0-5) H 08/19/19 Unknown Ur Epithelial Cells 20-30 /lpf (0-5) H 08/19/19 Unknown Urine Bacteria 2+ (Negative) H 08/19/19 Unknown Granular Casts 1-5 /lpf (0) H 08/19/19 Unknown WBC Casts 1-5 /lpf (0) H 08/19/19 Unknown POC Ur Test NEG (NEG) 08/19/19 Unknown Urine Opiates Screen Neg (Neg) 08/19/19 Unknown Ur Methadone, Qual Neg (Neg) 08/19/19 Unknown Urine Barbiturates Neg (Neg) 08/19/19 Unknown Ur Phencyclidine (PCP) Neg (Neg) 08/19/19 Unknown U Amphetamin/Meth Scrn Neg (Neg) 08/19/19 Unknown MDMA (Ecstasy) Screen Neg (Neg) 08/19/19 Unknown U Benzodiazepines Scrn Neg (Neg) 08/19/19 Unknown Ur Cocaine Metabolite Neg (Neg) 08/19/19 Unknown U Marijuana (THC) Screen Pos (Neg) H 08/19/19 Unknown Ethyl Alcohol mg/dL 123.6 mg/dl (0-3) H 08/19/19 22:54 Influenza Type A (PCR) Neg for Influ A (Neg) 08/19/19 Unknown Influenza Type B (PCR) Neg for Influ B (Neg) 08/19/[address] head initial read: No acute intracranial hemorrhage CT chest initial read: No acute pulmonary embolus. No consolidation. CT abdomen pelvis initial read: Mild colonic mucosal thickening most pronounced within the right hemicolon which is likely accentuated by underdistention however nonspecific colitis can cause a similar appearance. Colonic diverticulosis. Severe hepatic steatosis leiomyomatous uterus. Normal appendix. EKG as per my interpretation: Rate 115, sinus tachycardia, normal axis, T wave inversion, inferior and anterolateral leads (1) Pancreatitis Acute pancreatitis complication: unspecified Chronicity: acute Pancreatitis type: unspecified pancreatitis type Qualified Code(s): K85.90 - Acute pancreatitis without necrosis or infection, unspecified
[2019-08-20] MEDS ORDERED: OPTIRAY 320 125ml IV PRN (00:26)
[2019-08-20] MEDS ORDERED: LACTATED RINGER'S 1,000 ML IV ONE ×2 (00:33→06:11)
[2019-08-20] MEDS ORDERED: MoRPHine SULFATE 2 MG/ML CARP ONE (00:34)
[2019-08-20] MEDS: MAGNESIUM SULFATE / D5W 1 GM/100 ML BAG IV SCH (00:41)
[2019-08-20] MEDS ORDERED: cloNIDine HCL 0.1 MG TAB PO ONE (00:43)
[2019-08-20] MEDS ORDERED: OXYCODONE HCL IR 5 MG TAB (IMMEDIATE RELEASE) PO PRN ×3 (00:44→11:02)
[2019-08-20] MEDS ORDERED: AMPICILLIN/SULBACTAM SOD 3,000 MG in 0.9 % SODIUM CHLORIDE 100 ML IV STA (01:02)
[2019-08-20] MEDS ORDERED: INSULIN GLARGINE SOLOSTAR 100 UNITS/ML 3 ML PEN SC STA (02:46)
[2019-08-20] MEDS ORDERED: GLUCAGON FOR INJ 1 MG VIAL SQ PRN (02:46)
[2019-08-20] MEDS ORDERED: LEVALBUTEROL 1.25MG/0.5ML NEB INH PRN (02:46)
[2019-08-20] MEDS ORDERED: LORazepam 1 MG/2 ML VIAL IV PRN (02:46)
[2019-08-20] MEDS ORDERED: ATIVAN IV ALCOHOL WITHDRAWL IV PRN (02:46)
[2019-08-20] MEDS ORDERED: GLUCOSE 10 TABS/TUBE PO PRN (02:46)
[2019-08-20] MEDS ORDERED: LORazepam 2 MG/4 ML VIAL IV PRN (02:46)
[2019-08-20] MEDS ORDERED: INSULIN REGULAR 250 UNITS in SODIUM CHLORIDE 0.9% 247.5 ML IV SCH (02:46)
[2019-08-20] MEDS ORDERED: LORazepam 3 MG/6 ML VIAL IV PRN (02:46)
[2019-08-20] MEDS ORDERED: XOPENEX/ATROVENT 1.25mg/0.5MG NEB COMBO NEB PRN (02:46)
[2019-08-20] MEDS ORDERED: ACETAMINOPHEN 325 MG TAB PO PRN (02:46)
[2019-08-20] MEDS ORDERED: DEXTROSE 50% 50 ML SYRINGE IV PRN (02:46)
[2019-08-20] MEDS ORDERED: GABAPENTIN 1200MG ALCOHOL WITHDRAWAL LOAD PO STA (02:46)
[2019-08-20] MEDS ORDERED: IPRATROPIUM BROMIDE NEB SOLN 0.02% 2.5 ML VIAL INH PRN (02:46)
[2019-08-20] MEDS ORDERED: CARBOHYDRATES FOR HYPOGLYCEMIA PO PRN (02:46)
[2019-08-20] MEDS ORDERED: GLUCOSE 40% GEL 15 GM TUBE PO PRN (02:46)
[2019-08-20] MEDS ORDERED: LACTATED RINGER'S 1,000 ML IV SCH ×2 (03:00→08:15)
[2019-08-20] MEDS: INSULIN ASPART 100 UNITS/ML 3 ML PEN SC SCH ×4 (03:40→21:27)
[2019-08-20] MEDS: NIFEdipine EXTENDED REL 30 MG TABCR PO SCH (03:41)
[2019-08-20] MEDS ORDERED: AMPICILLIN/SULBACTAM CONSULT ACTIVE PRN (03:42)
[2019-08-20 04:14] LABS: Albumin Level 2.9 gm/dl (3.4-5.0)
[2019-08-20] MEDS ORDERED: POLYETHYLENE (MIRALAX) 17 GM PACK PO STA (04:47)
[2019-08-20] MEDS: AMPICILLIN/SULBACTAM SOD 3,000 MG in 0.9 % SODIUM CHLORIDE 100 ML IV SCH ×3 (04:58→17:50)
[2019-08-20] MEDS: MoRPHine SULFATE 2 MG/ML CARP IV PRN ×2 (05:01→09:01)
[2019-08-20 05:42] LABS: Base Excess VBG -7.9 mEq/L; Oxygen Saturation VBG 94.2 %; pH VBG 7.38 (7.36-7.41)
[2019-08-20 05:59] LABS: Basophils # (auto) 0.01 K/uL (0-0.2); Basophils % (auto) 0.1 %; Eosinophils # (auto) 0.02 K/uL (0-0.5); Eosinophils % (auto) 0.2 %; Hematocrit (blood only) 35.9 % (37-47); Hemoglobin 11.7 g/dL (12.0-16.0); Immature Granulocytes # (auto) 0.02 K/uL (0.00-0.02); Immature Granulocytes % (auto) 0.2 %; Lymphocytes # (auto) 1.39 K/uL (1.2-3.4); Lymphocytes % (auto) 12.7 %; Mean Corpuscular Hemoglobin 31.9 pg (25-34); Mean Corpuscular Hgb Conc 32.6 g/dL (32-36); Mean Corpuscular Volume 97.8 fL (80-100); Monocytes # (auto) 0.36 K/uL (0.11-0.59); Monocytes % (auto) 3.3 %; Neutrophils # (auto) 9.18 K/uL (1.4-6.5); Neutrophils % (auto) 83.5 %; Partial Thromboplastin Time 25.9 Seconds (21.0-31.0); Platelet Count 109 K/uL (130-400); RDW Coefficient of Variation 13.1 % (11.5-14.5); RDW Standard Deviation 46.9 fL (36.4-46.3); Red Blood Count 3.67 M/uL (4.2-5.4); White Blood Count 10.98 K/uL (4.8-10.8)
[2019-08-20] MEDS: GABAPENTIN 600 MG TAB PO SCH ×3 (06:02→19:02)
[2019-08-20] MEDS: DOCUSATE SODIUM/SENNA 50/8.6MG TAB PO SCH (06:02)
[2019-08-20 06:09] LABS: Albumin Level 2.6 gm/dl (3.4-5.0); BUN Creatinine Ratio 21.8 (10-20); Calcium 6.7 mg/dl (8.5-10.1); Creatinine Clr Calc Pharmacy 138.1 ml/min; Est GFR (African American) 148.4; Est GFR (Non-African American) 128.1; Magnesium 1.9 mg/dl (1.8-2.4); Potassium 4.3 mmol/L (3.5-5.1)
[2019-08-20 06:16] LABS: Albumin Globulin Ratio 0.8 (0.9-2); Bilirubin,Total 0.7 mg/dl (0.2-1); Globulin 3.3 gm/dl (2.5-4.0); Total Protein 5.9 gm/dl (6.4-8.2); Troponin I 0.168 ng/ml (0-0.045)
[2019-08-20 06:37] LABS: Estimated Average Glucose 120 mg/dl; Hemoglobin A1C 5.8 % (4.5-5.6)
--- NOTE | 2019-08-20 07:03 | CT Scan Report ---
CT ANGIOGRAPHY OF THE CHEST, PULMONARY EMBOLUS PROTOCOL CLINICAL HISTORY: Chest pain. Vomiting. COMPARISON STUDY: Chest CT April 29, 2019. Chest radiograph August 19, 2019. TECHNIQUE: Following IV administration of 118 mL of Optiray-320, helical axial images of the chest we re obtained utilizing the pulmonary embolus protocol. Maximal intensity projections and sagittal and coronal reformats were viewed on an independent 3D workstation. IV contrast was administered withou t complication. Automated exposure control was utilized for the study. A dose lowering technique wa s utilized adhering to the principles of ALARA. CT DOSE: 588.20 mGy.cm FINDINGS: No pulmonary emboli are identified. There is no thoracic aortic dissection. The size of th e heart is normal. There is no pericardial effusion. No enlarged thoracic lymph nodes are noted. The central airways are patent. There is no consolidation to suggest pneumonia. There are no pulmonary no dules. Bony thorax is unremarkable. Marked fatty infiltration of the liver is noted. The abdomen and pelvis will be reported separately. IMPRESSION: 1. No pulmonary emboli identified. 2. No acute findings within the chest. 3. Marked fatty infiltration of the liver. ACT 112: Negative or not required by law. Electronically signed by: Pedro Pablo Moore M.D. 08/20/2019 7:01 AM
--- NOTE | 2019-08-20 07:04 | CT Scan Report ---
HEAD CT NONCONTRAST CT DOSE: 537.48 mGy.cm HISTORY: Headache. TECHNIQUE: Multiaxial CT images of the head were performed without the use of intravenous contrast. A utomated exposure control was utilized for this study. A dose lowering technique was utilized adheri ng to the principles of ALARA. Comparison: Head CT 04/29/2019. Findings: The paranasal sinuses and mastoid air cells are clear. The calvarium and skull base are int act. The ventricles and sulci are within normal limits. There is no mass, hematoma, midline shift, or acute infarct. Impression: No acute intracranial abnormality. ACT 112: Negative or not required by law. Electronically signed by: Kadeem Graff M.D. 08/20/2019 7:02 AM
--- NOTE | 2019-08-20 07:22 | CT Scan Report ---
CT abd pelvis IV con only CLINICAL HISTORY: Vomiting. Generalized abdominal pain. COMPARISON STUDY: 04/29/2019 FINDINGS: The patient was scanned in a dynamic helical fashion during intravenous administration of 1 18 cc of Optiray 320. Visualized portions of the lung bases are unremarkable. There is severe hepatic steatosis. No focal hepatic masses are visualized. No gallbladder abnormalities are evident. No splenic masses are visualized. The pancreatic masses are visualized. No adrenal masses are visualized. There are no solid renal masses. There is no hydronephrosis. There are no transition zones to indicate bowel obstruction. There is no evidence of acute diverticul itis. Possible scattered diverticula are visualized. There is no evidence of acute appendicitis. Bord isabella bowel wall thickening involving the right colon, is likely secondary to underdistention. A mil d colitis could appear similar. There is no evidence of abdominal aortic dilatation. There is no ascites. There is no free air. There is no pathologic adenopathy. There is a calcified uterine fibroid. No destructive skeletal lesions are visualized. IMPRESSION: 1. No evidence of bowel obstruction. No evidence of free air 2. Severe hepatic steatosis 3. No evidence of acute appendicitis. No evidence of acute diverticulitis. 4. Mild bowel wall thickening involving the right colon, likely secondary to underdistention although a mild colitis could appear similar ACT 112: Negative or not required by law. Electronically signed by: Ritesh Stratton M.D. 08/20/2019 7:21 AM
[2019-08-20] MEDS ORDERED: INSULIN ASPART 100 UNITS/ML 3 ML PEN SC SCH ×2 (07:30→12:00)
[2019-08-20] MEDS ORDERED: MAGNESIUM SULFATE / D5W 1 GM/100 ML BAG IV ONE (07:30)
[2019-08-20] MEDS: FOLIC ACID 1 MG TAB PO SCH (08:39)
[2019-08-20] MEDS: VIIBRYD~ORDER AWAITING ACTION SCH ×2 (08:40→15:40)
[2019-08-20] MEDS: FERROUS SULFATE 325 MG TAB PO SCH (08:40)
[2019-08-20] MEDS: CETIRIZINE HCL 10 MG TABLET PO SCH (08:40)
[2019-08-20] MEDS ORDERED: PRENATAL VITAMIN 1 TAB PO SCH (09:00)
[2019-08-20] MEDS ORDERED: ENOXAPARIN INJ 30 MG/0.3 ML SYR SQ SCH (09:00)
[2019-08-20] MEDS ORDERED: MULTIVITAMIN TAB PO SCH ×2 (09:00)
[2019-08-20] MEDS ORDERED: FOLIC ACID 1 MG TAB PO SCH (09:00)
--- NOTE | 2019-08-20 09:56 | Electrocardiogram Report ---
Test Reason : Blood Pressure : / mmHG Vent. Rate : 115 BPM Atrial Rate : 115 BPM P-R Int : 116 ms QRS Dur : 074 ms QT Int : 354 ms P-R-T Axes : 058 024 010 degrees QTc Int : 489 ms Sinus tachycardia T wave abnormality, consider inferolateral ischemia Abnormal ECG When compared with ECG of 29-APR-2019 16:34, T wave inversion now evident in Anterolateral leads Confirmed by Michael Sauceda ([id number]) on 08/20/2019 9:55:28 AM Referred By: REFERRED SELF Confirmed By:Michael Sauceda
--- NOTE | 2019-08-20 10:20 | Electrocardiogram Report ---
Test Reason : Blood Pressure : / mmHG Vent. Rate : 108 BPM Atrial Rate : 108 BPM P-R Int : 128 ms QRS Dur : 074 ms QT Int : 348 ms P-R-T Axes : 057 020 -07 degrees QTc Int : 466 ms Sinus tachycardia Nonspecific T wave abnormality Abnormal ECG When compared with ECG of 19-AUG-2019 21:43, (unconfirmed) Nonspecific T wave abnormality has replaced inverted T waves in Anterolateral leads Confirmed by Michael Sauceda ([id number]) on 08/20/2019 10:20:19 AM Referred By: REFERRED SELF Confirmed By:Michael Sauceda
[2019-08-20] MEDS ORDERED: MAGNESIUM HYDROXIDE SUSP 30 ML UDC PO ONE (11:02)
[2019-08-20] MEDS ORDERED: ACETAMINOPHEN 325 MG TAB PO ONE (11:04)
[2019-08-20 11:09] LABS: Albumin Level 2.6 gm/dl (3.4-5.0); BUN Creatinine Ratio 14.5 (10-20); Creatinine Clr Calc Pharmacy 132.8 ml/min; Est GFR (African American) 146.5; Est GFR (Non-African American) 126.4; Magnesium 2.1 mg/dl (1.8-2.4); Potassium 3.6 mmol/L (3.5-5.1)
[2019-08-20 11:20] LABS: Albumin Globulin Ratio 0.9 (0.9-2); Bilirubin,Total 0.8 mg/dl (0.2-1); Phosphorus 0.7 mg/dl (2.5-4.9); Total Protein 5.6 gm/dl (6.4-8.2); Troponin I 0.095 ng/ml (0-0.045)
[2019-08-20] MEDS ORDERED: SODIUM PHOSPHATE 3 MMOL/1 ML INFUSION IV STA (11:27)
[2019-08-20] MEDS ORDERED: SODIUM PHOSPHATE 30 MMOL in SODIUM CHLORIDE 0.9% 500 ML IV STA (11:34)
--- NOTE | 2019-08-20 11:50 | Gastrointestinal Consultation ---
Date of Consultation August 20, 2019 Assessment & Plan (1) Pancreatitis: (2) Alcohol abuse: Pt is a 33 y/o female admitted with likely ETOH pancreatitis. - IVF resusciation with LR - Symptomatic management w antiemetics and analgesics prn - Strict ETOH cessation advised; she is contemplating about rehab, states had been to counseling and AA in the past - She had no shows several GI clinic visits and EUS appts - OK for CL diet today Attg add: I interviewed and examined pt, reviewed chart and labs. Pt with alcoholic panc - she reports onset of pain, active EtOH use. her abd pain has largely resolved, and she is narda liquids. Abd exam is benign, and she appears well. Please cont IV hydration, diet as narda, analgesia as needed. Will sign off, please reconsult as needed. History of Present Illness Reason for Consultation: Pancreatitis Requesting Physician: Dr. Teo Booker Attending Physician: Dr. Dallas Sam History of Present Illness Pt is a 33 y/o female who presented yesterday with c/o upper abd pain, nausea, vomiting, productive cough and chest pain when coughing. She denies any fever, chills. Had been feeling dehydrated and yesterday was continously trying to drinnk water but vomited them up. On eval, labs notable for mild hemoconcentrati on, elevated transaminases, lipase. ETOH level >100s, + cannabis on tox screen. Pt does have hx of ETOH pancreatitis. Per admission records her last ETOH intake was a day prior to admission but she reports it as being last Monday. CT abd/pelvis w IV contrast: 1. No evidence of bowel obstruction. No evidence of free air 2. Severe hepatic steatosis 3. No evidence of acute appendicitis. No evidence of acute diverticulitis. 4. Mild bowel wall thickening involving the right colon, likely secondary to underdistention although a mild colitis could appear similar Allergies Allergy/AdvReac Type Severity Reaction Status Date / Time bee venom protein (honey bee) Allergy Unknown ANAPHYLAXIS Verified 08/19/19 23:25 Home Medications Home Medications Medication Instructions Recorded Confirmed Type albuterol sulfate [Ventolin HFA] 1 puff INHALATION Q6H PRN 08/09/18 08/19/19 History Lantus Solostar U-100 Insulin See Rx Instructions .ROUTE .COMPLEX 10/07/18 08/19/19 History insulin lispro See Rx Instructions .ROUTE .COMPLEX 10/07/18 08/19/19 History nifedipine [Adalat CC] 30 mg PO DAILY #30 tab 10/07/18 08/19/19 Rx montelukast 10 mg PO HS 05/01/19 08/19/19 History folic acid 1 mg PO QAM #30 tab 05/02/19 08/19/19 Rx oxycodone 5 mg PO Q6H PRN #20 tab 05/02/19 08/19/19 Rx potassium chloride 20 meq PO DAILY #30 tab 05/02/19 08/19/19 Rx PNV,calcium 77-ochj-gluir acid 1 tab PO DAILY 08/19/19 08/19/19 History [ Vitamin Plus Low Iron] cetirizine 10 mg PO DAILY 08/19/19 08/19/19 History cholecalciferol (vitamin D3) 400 unit PO DAILY 08/19/19 08/19/19 History cyclobenzaprine 5 mg PO BID PRN 08/19/19 08/19/19 History epinephrine [EpiPen 2-Jason] 0.3 mg IM Q3H PRN 08/19/19 08/19/19 History ferrous sulfate 325 mg PO DAILY 08/19/19 08/19/19 History hydroxyzine HCl 50 mg PO BID PRN 08/19/19 08/19/19 History trazodone 50 mg PO HS PRN 08/19/19 08/19/19 History vilazodone [Viibryd] 20 mg PO DAILY 08/19/19 08/19/19 History Patient History Medical History Anxiety H/O Asthma Cardiac murmur CONGENITAL -- BENIGN. 10/09/15 echo: The examination is adequate to evaluate the referral indication. The qualitative LV ejection fraction is 60-64% (normal). The left ventricular diastolic function is normal. No significant valvular disease is present. Depression H/O Diabetes GERD (gastroesophageal reflux disease) R/T Gestational diabetes Scoliosis MINOR Surgical History History of adenoidectomy History of section x 2 History of tonsillectomy Family History Other Adopted Social History Preferred Language: [place] 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: Effective Non Destructive Testing Technician Required: No Beliefs That Will Affect Care: None Current Living Situation: Significant Other and Other Current Living Situation Comment: lives with boyfriend and 2 children in a condo like apartment Other Information That Helps Us Care for You: No Feels Safe at Home: Yes Safety Concerns: Feels Safe At This Time Smoking Status: Current every day smoker Tobacco Type: cigarettes ; Cigarettes Per Day: 1-2 ; Do You Dip or Chew Tobacco: No ; Second Hand Exposure: Yes ; Tobacco Cessation Education Requested by Patient: No Hx Alcohol Use: Yes Alcohol type: hard liquor Hx Substance Use: No Physical Exam Constitutional: WD/WN, vitals as above well groomed, cooperative and comfortable Eyes: PERRL, conjunctivae normal, anicteric sclerae ENMT: external ear and nose normal, oropharynx normal Respiratory: normal respiratory effort, lungs clear to auscultation Cardiovascular: RRR, no murmur, no edema Gastrointestinal (Abdomen): normal bowel sounds, soft, nontender, no hepatosplenomegaly Skin: no rashes, warm and dry no jaundice Neurologic: Motor/Sensory: + tremor (mild tremors on fingers) Psychiatric: A+Ox3, euthymic affect Lymphatic: no lymphedema Results & Data Vital Signs (Past 12 Hours) Vital Signs Temp Pulse Pulse Pulse Resp BP BP 08/20/19 08:00 105 H 08/20/19 06:30 36.8 C 103 H 18 138/88 08/20/19 03:48 36.7 C 103 H 104 H 18 153/70 H 08/20/19 03:03 36.7 C 99 H 16 153/70 H 08/20/19 02:30 82 20 08/20/19 00:40 115 H 154/87 H 08/20/19 00:00 124 H 20 154/87 H Pulse Ox 08/20/19 08:00 08/20/19 06:30 97 08/20/19 03:48 100 08/20/19 03:03 100 08/20/19 02:30 99 08/20/19 00:40 08/20/19 00:00 100 (1) Pancreatitis Acute pancreatitis complication: unspecified Chronicity: acute Pancreatitis type: unspecified pancreatitis type Qualified Code(s): K85.90 - Acute pancreatitis without necrosis or infection, unspecified
[2019-08-20] MEDS: HYDROmorphone INJ 0.5 MG/0.5 ML SYR IV PRN ×2 (11:58→21:25)
[2019-08-20] MEDS: LACTATED RINGER'S 1,000 ML IV SCH ×2 (11:58→19:02)
[2019-08-20] MEDS: POT PHOSPHATE MONOBASIC W/ SOD TAB PO SCH ×3 (12:14→21:16)
[2019-08-20 17:17] LABS: Albumin Level 2.7 gm/dl (3.4-5.0); BUN Creatinine Ratio 8.8 (10-20); Calcium 7.3 mg/dl (8.5-10.1); Creatinine Clr Calc Pharmacy 123.3 ml/min; Est GFR (Non-African American) 123.4; Potassium 3.1 mmol/L (3.5-5.1)
[2019-08-20 17:22] LABS: Albumin Globulin Ratio 0.8 (0.9-2); Bilirubin,Total 0.9 mg/dl (0.2-1); Globulin 3.2 gm/dl (2.5-4.0); Total Protein 5.9 gm/dl (6.4-8.2); Troponin I 0.043 ng/ml (0-0.045)
[2019-08-20 17:23] LABS: Phosphorus 2.2 mg/dl (2.5-4.9)
--- NOTE | 2019-08-20 18:12 | Cardiology Consultation ---
Date of Consultation August 20, 2019 Assessment & Plan (1) Sinus tachycardia: (2) Pancreatitis: Patient presents with evidence of acute alcohol ingestion, pancreatitis, suspected alcohol pancreatitis. Sinus tachycardia with rates in excess of 140 bpm were noted on presentation yesterday evening. EKG performed at 2143 yesterday revealed sinus tachycardia 115 bpm, with inferior lateral T wave inversions. An EKG was performed at 734 and revealed sinus tachycardia with very mild nonspecific repolarization abnormalities. The patient's troponin had been mildly elevated on presentation at 0.168, and is trended down to 0.095, and 0.043 ng/ml respectively. She is completely comfortable now. Although she describes having had mild chest discomfort when she came in, this was associated with diffuse abdominal discomfort, and she had been vomiting, retching, and coughing for 4 days prior to admission. Echocardiogram performed today revealed normal left ventricular chamber size and wall thickness, with LVEF in the range of 60 to 65%, normal wall motion, no valvular pathology. I believe her repolarization changes may be reflective of her metabolic abnormalities noted on admission including metabolic acidosis, multiple electrolyte derangements. Her electrolytes have improved on her most recent chemistry panel, however her potassium is still low at 3.1. I talked to Dr. Booker, and he is going to address replacing her electrolytes. She has on gabapentin for alcohol withdrawal prophylaxis per protocol. Although she is completely asymptomatic, and she is receiving fluids at 125 mL/h, she still has sinus tachycardia in the range of 120 bpm on telemetry. I am going to add IV metoprolol 2.5 mg IV every 6 hours to assist in heart rate control. As noted, I do not think the transient changes on her initial EKG, and the mild troponin elevation are due to an acute intracoronary plaque thrombosis, but likely due to significant myocardial strain in the setting of her noncardiac illness, with days of symptoms, and I would anticipate she has been tachycardic at home 4 days prior to arrival. History of Present Illness Attending Physician: Teo Booker MD History of Present Illness Patient is a 33 year old female seen in cardiology consultation per the request of Dr Booker for the evaluation of transient EKG repolarization abnormalities and mild troponin elevation. She had presented with complaints of abdominal discomfort, nauseousness, vomiting, and cough with chest pain while coughing. At this time her working diagnosis is alcohol related pancreatitis and her alcohol level was elevated on presentation. Her presenting vital signs include sinus tachycardia at a rate of 148 bpm at 1930 yesterday, initial blood pressure of 127/97. She is received pain medication as well as IV antibiotics and fluid resuscitation, with subsequent improvement in her heart rates down to the low 100s. Allergies Allergy/AdvReac Type Severity Reaction Status Date / Time bee venom protein (honey bee) Allergy Unknown ANAPHYLAXIS Verified 08/19/19 23:25 Home Medications Home Medications Medication Instructions Recorded Confirmed Type albuterol sulfate [Ventolin HFA] 1 puff INHALATION Q6H PRN 08/09/18 08/19/19 History Lantus Solostar U-100 Insulin See Rx Instructions .ROUTE .COMPLEX 10/07/18 08/19/19 History insulin lispro See Rx Instructions .ROUTE .COMPLEX 10/07/18 08/19/19 History nifedipine [Adalat CC] 30 mg PO DAILY #30 tab 10/07/18 08/19/19 Rx montelukast 10 mg PO HS 05/01/19 08/19/19 History folic acid 1 mg PO QAM #30 tab 05/02/19 08/19/19 Rx oxycodone 5 mg PO Q6H PRN #20 tab 05/02/19 08/19/19 Rx potassium chloride 20 meq PO DAILY #30 tab 05/02/19 08/19/19 Rx PNV,calcium 10-bqha-izphb acid 1 tab PO DAILY 08/19/19 08/19/19 History [ Vitamin Plus Low Iron] cetirizine 10 mg PO DAILY 08/19/19 08/19/19 History cholecalciferol (vitamin D3) 400 unit PO DAILY 08/19/19 08/19/19 History cyclobenzaprine 5 mg PO BID PRN 08/19/19 08/19/19 History epinephrine [EpiPen 2-Jason] 0.3 mg IM Q3H PRN 08/19/19 08/19/19 History ferrous sulfate 325 mg PO DAILY 08/19/19 08/19/19 History hydroxyzine HCl 50 mg PO BID PRN 08/19/19 08/19/19 History trazodone 50 mg PO HS PRN 08/19/19 08/19/19 History vilazodone [Viibryd] 20 mg PO DAILY 08/19/19 08/19/19 History Patient History Medical History Anxiety H/O Asthma Cardiac murmur CONGENITAL -- BENIGN. 10/09/15 echo: The examination is adequate to evaluate the referral indication. The qualitative LV ejection fraction is 60-64% (normal). The left ventricular diastolic function is normal. No significant valvular disease is present. 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 Supervisor Required: No Beliefs That Will Affect Care: None Current Living Situation: Significant Other and Other Current Living Situation Comment: lives with boyfriend and 2 children in a condo like apartment Other Information That Helps Us Care for You: No Feels Safe at Home: Yes Safety Concerns: Feels Safe At This Time Smoking Status: Current every day smoker Tobacco Type: cigarettes ; Cigarettes Per Day: 1-2 ; Do You Dip or Chew Tobacco: No ; Second Hand Exposure: Yes ; Tobacco Cessation Education Requested by Patient: No Hx Alcohol Use: Yes Alcohol type: hard liquor Hx Substance Use: No Results & Data Vital Signs (Past 12 Hours) Vital Signs Temp Pulse Pulse Resp BP Pulse Ox 08/20/19 15:56 37.1 C 107 H 20 115/81 100 08/20/19 12:23 36.6 C 60 20 145/74 H 96 08/20/19 08:00 105 H 08/20/19 06:30 36.8 C 103 H 18 138/88 97 (1) Pancreatitis Acute pancreatitis complication: unspecified Chronicity: acute Pancreatitis type: unspecified pancreatitis type Qualified Code(s): K85.90 - Acute pancreatitis without necrosis or infection, unspecified
[2019-08-20] MEDS ORDERED: POTASSIUM PHOS 3 MMOL/1 ML INFUSION IV STA (18:24)
[2019-08-20] MEDS ORDERED: POTASSIUM CHLORIDE 20 MEQ TABCR PO STA (18:29)
[2019-08-20] MEDS ORDERED: POTASSIUM CHLORIDE / WTR 10 MEQ/100 ML PLCT IV ONE (18:30)
[2019-08-20] MEDS ORDERED: POTASSIUM PHOSPHATE 15 MMOL in SODIUM CHLORIDE 0.9% 250 ML IV ONE (18:45)
--- NOTE | 2019-08-20 20:01 | Hospitalist Progress Note ---
Date of Service August 20, 2019 Assessment & Plan (1) Pancreatitis: Alcoholic pancreatitis Alcohol abuse -33 y/o female admitted with likely ETOH pancreatitis. -IV fluids with LR, prn pain medications, prn anti-emetics -on clear liquid diet -on gabapentin alcohol withdrawal protocol Alcoholic ketoacidosis -monitor anion gap while on Iv fluids Hypomagnesemia Hypophosphatemia -correct electrolytes with magnesium supplements to target serum magnesium of 2 and to target serum phosphorous above 2.5 -target serum potassium close to 4 There does not appear to evidence of aspiration pneumonitis on CT scan Given that sepsis is not likely, will plan to discontinue ampicillin IV antibiotics if blood cultures return as negative Elevated Troponins Tachycardia -cardiology started beta blockers -as per deaf and hard of hearing teacher, the echocardiogram shows good heart function; and that elevated troponins on this admission likely from tachycardia History of gestational diabetes in the past -outpatient hemoglobin A1c of 5.4 last May 2019 -glucose monitoring and insulin while inpatient . Chronic anemia ADD -stable off medications as per patient DVT prophylaxis. Lovenox subcu Full code Subjective Patient's headache and chest and abdominal pain is improving. no vomiting. patient reports she is able to make bowel movement Review of Systems Review of Systems: All systems reviewed & are unremarkable except as noted in HPI & below Physical Exam Constitutional: comfortable Eyes: PERRL, conjunctivae normal, anicteric sclerae EOM intact bilaterally ENMT: external ear and nose normal, oropharynx normal Neck: normal visual inspection Respiratory: normal respiratory effort, lungs clear to auscultation Cardiovascular: Rate/Rhythm: regular rhythm and + tachycardic Gastrointestinal (Abdomen): normal bowel sounds, soft, nontender, no hepatosplenomegaly Musculoskeletal: Head/Neck/Chest: normocephalic and head atraumatic Neurologic: PERRL, EOMI, accommodation nl, no face palsy, no dysarthria CN's II-XI intact bilaterally Psychiatric: A+Ox3, euthymic affect Results & Data Vital Signs (Past 12 Hours) Vital Signs Temp Pulse Pulse Resp BP Pulse Ox 08/20/19 15:56 37.1 C 107 H 20 115/81 100 08/20/19 12:23 36.6 C 60 20 145/74 H 96 08/20/19 08:00 105 H (1) Pancreatitis Acute pancreatitis complication: unspecified Chronicity: acute Pancreatitis type: unspecified pancreatitis type Qualified Code(s): K85.90 - Acute pancreatitis without necrosis or infection, unspecified
[2019-08-20] MEDS ORDERED: TRAZODONE HCL 50 MG TAB PO SCH (21:00)
[2019-08-20] MEDS ORDERED: MONTELUKAST SODIUM 10 MG TABLET PO SCH (21:00)
[2019-08-21] MEDS: AMPICILLIN/SULBACTAM SOD 3,000 MG in 0.9 % SODIUM CHLORIDE 100 ML IV SCH ×3 (00:08→11:57)
[2019-08-21] MEDS: VIIBRYD~ORDER AWAITING ACTION SCH ×2 (00:12→08:17)
[2019-08-21] MEDS: METOPROLOL TARTRATE 1 MG/ML VIAL IV SCH ×3 (00:12→12:42)
[2019-08-21] MEDS: LACTATED RINGER'S 1,000 ML IV SCH ×2 (04:45→11:58)
[2019-08-21] MEDS: GABAPENTIN 600 MG TAB PO SCH ×2 (04:46→12:46)
[2019-08-21] MEDS: HYDROmorphone INJ 0.5 MG/0.5 ML SYR IV PRN (05:15)
[2019-08-21] MEDS ORDERED: FAMOTIDINE 20 MG in SYRINGE 3 ML IV STA (06:02)
[2019-08-21 06:49] LABS: Alanine Aminotransferase 49 U/L (12-78); Albumin Level 2.5 gm/dl (3.4-5.0); Aspartate Aminotransferase 48 U/L (15-37); BUN Creatinine Ratio 7.2 (10-20); Blood Urea Nitrogen 3 mg/dl (7-18); Calcium 7.4 mg/dl (8.5-10.1); Carbon Dioxide 25 mmol/L (21-32); Chloride 103 mmol/L (98-107); Creatinine Clr Calc Pharmacy 191.2 ml/min; Est GFR (African American) > 150.0; Est GFR (Non-African American) 141.4; Glucose 104 mg/dl (70-99); Lipase 669 U/L (73-393); Magnesium 1.2 mg/dl (1.8-2.4); Potassium 3.7 mmol/L (3.5-5.1); Sodium 136 mmol/L (136-145)
[2019-08-21 06:52] LABS: Basophils # (auto) 0.01 K/uL (0-0.2); Basophils % (auto) 0.3 %; Eosinophils # (auto) 0.05 K/uL (0-0.5); Eosinophils % (auto) 1.3 %; Hematocrit (blood only) 32.6 % (37-47); Hemoglobin 11.2 g/dL (12.0-16.0); Lymphocytes # (auto) 1.17 K/uL (1.2-3.4); Lymphocytes % (auto) 30.8 %; Mean Corpuscular Hemoglobin 32.4 pg (25-34); Mean Corpuscular Hgb Conc 34.4 g/dL (32-36); Mean Corpuscular Volume 94.2 fL (80-100); Monocytes # (auto) 0.15 K/uL (0.11-0.59); Monocytes % (auto) 3.9 %; Neutrophils # (auto) 2.42 K/uL (1.4-6.5); Neutrophils % (auto) 63.7 %; Platelet Count 73 K/uL (130-400); Platelet Estimate Decreased (Normal); RBC Morphology Unremarkable; RDW Standard Deviation 44.8 fL (36.4-46.3); Red Blood Count 3.46 M/uL (4.2-5.4)
[2019-08-21 06:56] LABS: Albumin Globulin Ratio 0.8 (0.9-2); Alkaline Phosphatase 40 U/L (45-117); Bilirubin,Total 1.1 mg/dl (0.2-1); Globulin 3.3 gm/dl (2.5-4.0); Phosphorus 1.6 mg/dl (2.5-4.9); Total Protein 5.8 gm/dl (6.4-8.2)
[2019-08-21] MEDS ORDERED: POTASSIUM PHOS 3 MMOL/1 ML INFUSION IV STA (07:21)
[2019-08-21] MEDS ORDERED: POTASSIUM PHOSPHATE 21 MMOL in SODIUM CHLORIDE 0.9% 500 ML IV STA (07:27)
[2019-08-21] MEDS: MAGNESIUM SULFATE / D5W 1 GM/100 ML BAG IV SCH ×3 (08:12→11:00)
[2019-08-21] MEDS: DOCUSATE SODIUM/SENNA 50/8.6MG TAB PO SCH (08:18)
[2019-08-21] MEDS: CETIRIZINE HCL 10 MG TABLET PO SCH (08:19)
[2019-08-21] MEDS: POT PHOSPHATE MONOBASIC W/ SOD TAB PO SCH ×2 (08:19→12:46)
[2019-08-21] MEDS: FOLIC ACID 1 MG TAB PO SCH (08:19)
[2019-08-21] MEDS: NIFEdipine EXTENDED REL 30 MG TABCR PO SCH (08:20)
[2019-08-21] MEDS: FERROUS SULFATE 325 MG TAB PO SCH (08:20)
[2019-08-21] MEDS: INSULIN ASPART 100 UNITS/ML 3 ML PEN SC SCH ×2 (08:21→12:47)
[2019-08-21] MEDS ORDERED: INSULIN GLARGINE SOLOSTAR 100 UNITS/ML 3 ML PEN SC SCH (09:00)
[2019-08-21] MEDS ORDERED: THIAMINE HCL 100 MG TAB PO SCH (09:00)
[2019-08-21] MEDS ORDERED: MAGNESIUM OXIDE 400 MG TAB PO SCH (09:00)
--- NOTE | 2019-08-21 10:17 | Electrocardiogram Report ---
Test Reason : Blood Pressure : / mmHG Vent. Rate : 080 BPM Atrial Rate : 080 BPM P-R Int : 126 ms QRS Dur : 070 ms QT Int : 412 ms P-R-T Axes : 043 012 -03 degrees QTc Int : 475 ms Normal sinus rhythm Nonspecific T wave abnormality Prolonged QT Abnormal ECG When compared with ECG of 20-AUG-2019 07:34, No significant change was found Confirmed by Michael Sauceda ([id number]) on 08/21/2019 10:17:32 AM Referred By: REFERRED SELF Confirmed By:Michael Sauceda
[2019-08-21 11:08] VITALS: BP 136/91; TEMP 98.6; O2SAT 99
[2019-08-21 12:18] LABS: Alanine Aminotransferase 55 U/L (12-78); Albumin Level 2.8 gm/dl (3.4-5.0); Aspartate Aminotransferase 56 U/L (15-37); BUN Creatinine Ratio 7.1 (10-20); Blood Urea Nitrogen 3 mg/dl (7-18); Calcium 7.6 mg/dl (8.5-10.1); Carbon Dioxide 26 mmol/L (21-32); Chloride 102 mmol/L (98-107); Creatinine Clr Calc Pharmacy 181.4 ml/min; Est GFR (African American) > 150.0; Glucose 119 mg/dl (70-99); Magnesium 2.6 mg/dl (1.8-2.4); Potassium 3.9 mmol/L (3.5-5.1); Sodium 135 mmol/L (136-145)
[2019-08-21 12:37] LABS: Albumin Globulin Ratio 0.8 (0.9-2); Alkaline Phosphatase 53 U/L (45-117); Bilirubin,Total 1.1 mg/dl (0.2-1); Globulin 3.6 gm/dl (2.5-4.0); Phosphorus 2.3 mg/dl (2.5-4.9); Total Protein 6.4 gm/dl (6.4-8.2)
--- NOTE | 2019-08-21 14:20 | Hospitalist Progress Note ---
Date of Service August 21, 2019 Assessment & Plan (1) Pancreatitis: Alcoholic pancreatitis Alcohol abuse -33 y/o female admitted with likely ETOH pancreatitis. admission lipase level 1871 -IV fluids with LR, prn pain medications, prn anti-emetics -on gabapentin alcohol withdrawal protocol while inpatient -Patient's abdominal discomfort improved throughout 08/20/2019 and resolved as of 08/21/2019 -08/21/2019: patient able to tolerate solid diet. lipase downtrended to 669. patient wishes to go home Discharge to home Patient is counseled to avoid alcohol. Patient should have low fat diet Patient should take magnesium and phosphorous supplements and follow with family doctor for repeat of lab electrolyte levels Patient should take metoprolol tartrate 12.5 mg twice a day for tachycardia for next 10 days and follow up with primary care doctor to re-assess heart rates after discharge Discharge [facility] [address] [place] [address] Follow up appointments 08/28/2019 1:00 PM Provider Priti Hernandez MS Department Psychology, [facility] 08/29/2019 1:10 PM Provider Harinder Nathan DO Department Family Practice [facility] 09/02/2019 1:00 PM Provider Kyra Darnell, DO [facility] 09/03/2019 8:30 AM Provider Vashti Samuels, DO Department Psychiatry, [facility] Alcoholic ketoacidosis -anion gap closed after IV fluids Hypomagnesemia Hypophosphatemia -admission serum magnesium 1.4 and 08/20/2019 serum phosphorous as 0.4 -after multiple IV and oral supplements, serum magnesium is above 2. serum phosphorous has improved to 2.3 -serum potassium is 3.9 on 08/21/2019 and at goal -oral supplements of magnesium and phosphorus as outpatient There does not appear to evidence of aspiration pneumonitis on CT scan Given that sepsis is not likely, will plan to discontinue ampicillin IV antibiotics if blood cultures return as negative Elevated Troponins Tachycardia admission first troponin negative, then 0.168, then 0.095 then normalized -cardiology started metoprolol -as per human resources talent manager, the echocardiogram with normal ejection fraction and no wall motion abnormalities; and that elevated troponins on this admission likely from tachycardia -trial of metoprolol tartrate 12.5 mg BID as outpatient for 10 days History of gestational diabetes in the past -outpatient hemoglobin A1c of 5.4 last May 2019 -glucose monitoring and insulin while inpatient -outpatient management by primary care doctor after hospital discharge Chronic anemia -admission hemoglobin of 16 was from dehydration. hemoglobin measurements at baseline after IV fluids as 11 ADD -stable off medications as per patient DVT prophylaxis. Lovenox subcutaneous while inpatient Full code Discharge Diagnosis: Alcoholic pancreatitis, Alcohol abuse, Alcoholic ketoacidosis, Hypomagnesemia, Hypophosphatemia, Elevated Troponins, Tachycardia Subjective Patient's abdominal discomfort improved throughout 08/20/2019 and resolved as of 08/21/2019. Patient wishes to go home. Heart rates are better controlled. no vomiting, no nausea, no shortness of breath, no chest pain, no neck pain. no dizziness, no lightheadedness. is ambulatory. discharge plans discussed at length Review of Systems Review of Systems: All systems reviewed & are unremarkable except as noted in HPI & below Physical Exam Constitutional: comfortable Eyes: PERRL, conjunctivae normal, anicteric sclerae EOM intact bilaterally ENMT: external ear and nose normal, oropharynx normal Neck: normal visual inspection Respiratory: normal respiratory effort, lungs clear to auscultation Cardiovascular: Rate/Rhythm: regular rate and regular rhythm Gastrointestinal (Abdomen): normal bowel sounds, soft, nontender, no hepatosplenomegaly Musculoskeletal: Head/Neck/Chest: normocephalic and head atraumatic Neurologic: PERRL, EOMI, accommodation nl, no face palsy, no dysarthria CN's II-XI intact bilaterally Psychiatric: A+Ox3, euthymic affect Results & Data Vital Signs (Past 12 Hours) Vital Signs Temp Pulse Pulse Pulse Resp BP BP 08/21/19 12:42 95 H 136/91 08/21/19 11:07 37.0 C 89 16 136/91 08/21/19 07:35 37.1 C 82 16 138/91 08/21/19 07:00 90 08/21/19 06:05 84 08/21/19 06:04 86 08/21/19 04:02 37.2 C 87 18 138/88 Pulse Ox 08/21/19 12:42 08/21/19 11:07 99 08/21/19 07:35 98 08/21/19 07:00 08/21/19 06:05 08/21/19 06:04 08/21/19 04:02 98 (1) Pancreatitis Acute pancreatitis complication: unspecified Chronicity: acute Pancreatitis type: unspecified pancreatitis type Qualified Code(s): K85.90 - Acute pancreatitis without necrosis or infection, unspecified
--- NOTE | 2019-08-21 14:33 | Discharge Summary ---
Date of Service August 21, 2019 Admission HPI Per Admitting Provider History obtained from patient and records. Medical history significant for recurrent pancreatitis, gestational diabetes, HTN, ADD as per records, asthma, past tobacco abuse, chronic anemia (baseline hemoglobin 11) Recent confinement April 2019 for recurrent pancreatitis attributed to alcohol intake. Patient has been ill since last week. Achy abdominal pain with constipation, nausea, emesis symptoms. Pleuritic chest pain with junky cough symptoms with S OB.. Achy headache/neck pain. Last drink of alcohol was yesterday as per patient. 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 Admission Exam Per Admitting Provider GENERAL: Slightly uncomfortable, no respiratory distress SKIN: Pallor, warm HEENT: Pale palpebral conjunctivae, no ptosis, dry buccal mucosa NECK : Supple, no tenderness CHEST : Decreased breath sounds, no tenderness HEART : Tachycardic, no obvious murmurs ABDOMEN: Some distention, epigastric tenderness EXTREMITIES : No LE swelling/tenderness, no other conspicuous deformities noted NEUROLOGIC : Coherent, no facial asymmetry, no other gross focality Principal Diagnosis Alcoholic pancreatitis, Alcohol abuse, Alcoholic ketoacidosis, Hypomagnesemia, Hypophosphatemia, Elevated Troponins, Tachycardia Discharge Exam Constitutional comfortable Eyes PERRL, conjunctivae normal, anicteric sclerae EOM intact bilaterally ENMT external ear and nose normal, oropharynx normal Neck normal visual inspection Respiratory normal respiratory effort, lungs clear to auscultation Cardiovascular Rate/Rhythm: regular rate and regular rhythm Gastrointestinal (Abdomen) normal bowel sounds, soft, nontender, no hepatosplenomegaly Musculoskeletal Head/Neck/Chest: normocephalic and head atraumatic Neurologic PERRL, EOMI, accommodation nl, no face palsy, no dysarthria CN's II-XI intact bilaterally Psychiatric A+Ox3, euthymic affect Discharge Data Allergies Allergy/AdvReac Type Severity Reaction Status Date / Time bee venom protein (honey bee) Allergy Unknown ANAPHYLAXIS Verified 08/19/19 23:25 Consultations 08/19/19 22:18 ED Decision to Admit Stat 08/20/19 02:46 Consult Gastroenterology Routine 08/20/19 12:17 Consult Cardiology Routine Ordered Studies 08/19/19 23:15 CT abd pelvis IV con only Urgent CT angio chest PE protocol Urgent CT head/brain wo con Urgent Hospital Course (1) Pancreatitis: Alcoholic pancreatitis Alcohol abuse -33 y/o female admitted with likely ETOH pancreatitis. admission lipase level 1871 -IV fluids with LR, prn pain medications, prn anti-emetics -on gabapentin alcohol withdrawal protocol while inpatient -Patient's abdominal discomfort improved throughout 08/20/2019 and resolved as of 08/21/2019 -08/21/2019: patient able to tolerate solid diet. lipase downtrended to 669. patient wishes to go home Discharge to home Patient is counseled to avoid alcohol. Patient should have low fat diet Patient should take magnesium and phosphorous supplements and follow with family doctor for repeat of lab electrolyte levels Patient should take metoprolol tartrate 12.5 mg twice a day for tachycardia for next 10 days and follow up with primary care doctor to re-assess heart rates after discharge Discharge medications sent electronically to [facility] [address] [place] [address] Follow up appointments 08/28/2019 1:00 PM Provider Priti Hernandez MS Department Psychology, [facility] 08/29/2019 1:10 PM Provider Harinder Nathan DO Department Family Practice [facility] 09/02/2019 1:00 PM Provider Kyra Darnell, DO Department Gastroenterology, [facility] 09/03/2019 8:30 AM Provider Vashti Samuels, DO Department Psychiatry, [facility] Alcoholic ketoacidosis -anion gap closed after IV fluids Hypomagnesemia Hypophosphatemia -admission serum magnesium 1.4 and 08/20/2019 serum phosphorous as 0.4 -after multiple IV and oral supplements, serum magnesium is above 2. serum phosphorous has improved to 2.3 -serum potassium is 3.9 on 08/21/2019 and at goal -oral supplements of magnesium and phosphorus as outpatient There does not appear to evidence of aspiration pneumonitis on CT scan Given that sepsis is not likely, will plan to discontinue ampicillin IV antibiotics if blood cultures return as negative Elevated Troponins Tachycardia admission first troponin negative, then 0.168, then 0.095 then normalized -cardiology started metoprolol -as per principal bioinformatics specialist, the echocardiogram with normal ejection fraction and no wall motion abnormalities; and that elevated troponins on this admission likely from tachycardia -trial of metoprolol tartrate 12.5 mg BID as outpatient for 10 days History of gestational diabetes in the past -outpatient hemoglobin A1c of 5.4 last May 2019 -glucose monitoring and insulin while inpatient -outpatient management by primary care doctor after hospital discharge Chronic anemia -admission hemoglobin of 16 was from dehydration. hemoglobin measurements at baseline after IV fluids as 11 ADD -stable off medications as per patient DVT prophylaxis. Lovenox subcutaneous while inpatient Full code Discharge Diagnosis: Alcoholic pancreatitis, Alcohol abuse, Alcoholic ketoacidosis, Hypomagnesemia, Hypophosphatemia, Elevated Troponins, Tachycardia Total Time Total Time Spent Total Time Spent (In Minutes): 40 minutes Total Time Includes: Examination of the Patient, Discharge Planning, Medication Reconciliation and Communication With Other Providers Discharge Plan Discharge Items Patient Disposition: Home - Self-Care Reason For Visit: SEPSIS Discharge Diagnosis: Alcoholic pancreatitis, Alcohol abuse, Alcoholic ketoacidosis, Hypomagnesemia, Hypophosphatemia, Elevated Troponins, Tachycardia Condition on Discharge: Good Activity: Resume your previous activity Non-emergency contact: Primary Care Provider and Residence Hall Director Call non-emergency contact if: you have any medication questions Follow-up/Referrals: Harinder Nathan DO [Primary Care Provider] - Diet: Low Fat Addtl Attending Provider Instructions: Discharge to home Patient is counseled to avoid alcohol. Patient should have low fat diet Patient should take magnesium and phosphorous supplements and follow with family doctor for repeat of lab electrolyte levels Patient should take metoprolol tartrate 12.5 mg twice a day for tachycardia for next 10 days and follow up with primary care doctor to re-assess heart rates after discharge Discharge medications sent electronically to [facility] [address] [place] [address] Follow up appointments 08/28/2019 1:00 PM Provider Priti Hernandez MS Department Psychology, [facility] 08/29/2019 1:10 PM Provider Harinder Nathan DO Department Family Practice [facility] 09/02/2019 1:00 PM Provider Kyra Darnell DO Department [facility]ology, [facility] 09/03/2019 8:30 AM Provider Vashti Samuels DO Department Psychiatry, [facility] Pending Studies at Discharge: No Stand-Alone Forms: SafeAwake, Smoking Cessation Medications and DC Order Prescriptions: New magnesium oxide 400 mg (241.3 mg magnesium) Tablet 400 mg PO BID 10 Days Qty: 20 RF: 0 Phospha 250 Neutral 250 mg Tablet 2 tab PO QID 10 Days Qty: 80 RF: 0 metoprolol tartrate 25 mg tablet 12.5 mg PO BID 10 Days Qty: 10 RF: 0 Continued albuterol sulfate [Ventolin HFA] 90 mcg/actuation Hfa Aerosol Inhaler 1 puff INHALATION Q6H PRN (Reason: SOB) RF: 0 insulin lispro 100 unit/mL insulin pen See Rx Instructions .ROUTE .COMPLEX RF: 0 Lantus Solostar U-100 Insulin 100 unit/mL (3 mL) insulin pen See Rx Instructions .ROUTE .COMPLEX RF: 0 nifedipine [Adalat CC] 30 mg Tablet Extended Release 30 mg PO DAILY Qty: 30 RF: 2 montelukast 10 mg Tablet 10 mg PO HS RF: 0 folic acid 1 mg Tablet 1 mg PO QAM Qty: 30 RF: 0 oxycodone 5 mg Tablet 5 mg PO Q6H PRN (Reason: pain) Qty: 20 RF: 0 Viibryd 20 mg tablet 20 mg PO DAILY RF: 0 hydroxyzine HCl 50 mg tablet 50 mg PO BID PRN (Reason: Anxiety) RF: 0 cyclobenzaprine 5 mg tablet 5 mg PO BID PRN (Reason: Muscle Spasm) RF: 0 cetirizine 10 mg tablet 10 mg PO DAILY RF: 0 ferrous sulfate 325 mg (65 mg iron) Tablet,Delayed Release (Dr/Ec) 325 mg PO DAILY RF: 0 epinephrine [EpiPen 2-Jason] 0.3 mg/0.3 mL Auto-Injector 0.3 mg IM Q3H PRN (Reason: Allergic Reaction) RF: 0 cholecalciferol (vitamin D3) 400 unit Tablet,Chewable 400 unit PO DAILY RF: 0 Discontinued potassium chloride 20 mEq tablet extended release 20 meq PO DAILY Qty: 30 RF: 0 trazodone 50 mg tablet 50 mg PO HS PRN (Reason: Insomnia) RF: 0 Vitamin Plus Low Iron 27 mg iron- 1 mg tablet 1 tab PO DAILY RF: 0 Discharge Orders: Discharge Order (Routine); Ordered 08/21/19 Ordered By: Teo Booker Admission Data Admit Date/Time: 08/20/19 01:02 Attending Provider: Teo Booker Admit Provider: Tristen Hawkins Primary Care Provider: Harinder Nathan Other Providers: Tristen Hawkins ; Manuela Lopez ; Latha Denise ; Brittany Ramirez ; Marisa Vasquez ; Demetrio Serna ; Kyra Darnell ; Dallas Sam ; Sasha Medina ; Michael Freed ; Ramone Aiken ; Arleth Phillips ; Richa Rogers ; Cheyanne Burns ; Halley Littlejohn ; Aster Nielsen ; Freddie Carranza
[2019-08-21 14:42] VITALS: PULSE 89
[2019-08-22] MEDS ORDERED: GABAPENTIN 600 MG TAB PO SCH
[2019-08-22 00:40] LABS: Marijuana Quant, GCMS Urine 9 ng/mL (<5)
[2019-08-23] MEDS ORDERED: GABAPENTIN 600 MG TAB PO SCH (12:00)
== END 2019-08-21 15:15 | disposition home or self-care (01) | DRG 439 ==
LOC: ED 19:29 → 2N 08-20 01:02

== ENCOUNTER 2021-04-05 11:11 | Inpatient (IN) ==
[2021-04-05] MEDS ORDERED: ALBUTEROL HFA 8 GM INHALER INH ONE (12:33)
[2021-04-05] MEDS ORDERED: ACETAMINOPHEN 500 MG TAB PO STA (12:33)
[2021-04-05] MEDS ORDERED: ONDANSETRON INJ 2 MG/ML 2 ML VIAL IV STA (12:33)
[2021-04-05] MEDS ORDERED: SODIUM CHLORIDE 0.9% 500 ML IV ONE (12:33)
--- NOTE | 2021-04-05 12:40 | Emergency Department Note ---
History of Present Illness General Chief complaint: Shortness of Breath/Dyspnea Stated complaint: SHORTNESS OF BREATH, FEVER,BODY PAIN, HEADACHE Time Seen by Provider: 04/05/21 12:13 History of Present Illness Maximum Pain Intensity: 10 This is a 35-year-old female that presents to the emergency department via private vehicle with complaints of "shortness of breath". The patient notes that since this past she has not felt well. She began with a fever, headache, body aches and cough. She does note that her children were quarantined as they were exposed to Covid positive individuals. She states that shortly after this she began with the symptoms. She notes that this past her symptoms worsen to include shortness of breath. That same day she also had oral surgery. She notes that she feels exhausted, has been vomiting, has body aches and feels shortness of breath. She feels quite winded just with simple activities. She also notes rhinorrhea. She notes history of diabetes. She last checked her sugar she believes this past . She has not had any insulin since that time noting she has not had much to eat. She did not receive the Covid vaccine. Current pain at this time is rated as a 10/10. Home Medications Medication Instructions Recorded Confirmed Type albuterol sulfate 90 mcg/actuation 1 puff INHALATION Q6H PRN 08/09/18 04/05/21 History aerosol inhaler (Ventolin HFA) insulin glargine 100 unit/mL (3 0 unit SUBCUT DIRECTED 10/07/18 04/05/21 History mL) subcutaneous pen (Lantus Solostar U-100 Insulin) insulin lispro 100 unit/mL 0 unit SUBCUT AC 10/07/18 04/05/21 History subcutaneous pen nifedipine 30 mg tablet,extended 30 mg PO DAILY #30 tab 10/07/18 04/05/21 Rx release (Adalat CC) montelukast 10 mg tablet 10 mg PO HS 05/01/19 04/05/21 History folic acid 1 mg tablet 1 mg PO QAM #30 tab 05/02/19 04/05/21 Rx oxycodone 5 mg tablet 5 mg PO Q6H PRN #20 tab 05/02/19 04/05/21 Rx cetirizine 10 mg tablet 10 mg PO DAILY 08/19/19 04/05/21 History cholecalciferol (vitamin D3) 10 400 unit PO DAILY 08/19/19 04/05/21 History mcg (400 unit) chewable tablet cyclobenzaprine 5 mg tablet 5 mg PO BID PRN 08/19/19 04/05/21 History epinephrine 0.3 mg/0.3 mL 0.3 mg IM Q3H PRN 08/19/19 04/05/21 History injection, auto-injector (EpiPen 2-Jason) ferrous sulfate 325 mg (65 mg 325 mg PO DAILY 08/19/19 04/05/21 History iron) tablet,delayed release hydroxyzine HCl 50 mg tablet 50 mg PO BID PRN 08/19/19 04/05/21 History vilazodone 20 mg tablet (Viibryd) 20 mg PO DAILY 08/19/19 04/05/21 History Allergies Allergy/AdvReac Type Severity Reaction Status Date / Time bee venom protein (honey bee) Allergy Unknown ANAPHYLAXIS Verified 04/05/21 14:24 Past Med/Surg History Medical History (Updated 04/05/21 @ 19:01 by Alex Oconnor PA-C) Anxiety H/O Asthma Cardiac murmur CONGENITAL -- BENIGN. 10/09/15 echo: The examination is adequate to evaluate the referral indication. The qualitative LV ejection fraction is 60-64% (normal). The left ventricular diastolic function is normal. No significant valvular disease is present. Depression H/O Diabetes GERD (gastroesophageal reflux disease) R/T Gestational diabetes Scoliosis MINOR Surgical History History of adenoidectomy History of section x 2 History of tonsillectomy Family History Other Adopted Social History Smoking Status: Current some day smoker Cigarettes Per Day: 1-2; Second Hand Exposure: No; Do You Dip or Chew Tobacco: No; Tobacco Cessation Education Requested by Patient: No Hx Alcohol Use: Yes Alcohol type: hard liquor Hx Substance Use: Yes (medical oil for anxiety) Prescribed Medications: Marijuana Last Used Substance: Days (ago) Preferred Language: Slovenian 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: Effective Language Asst Required: No Beliefs That Will Affect Care: None Current Living Situation: Family Current Living Situation Comment: lives w/ kids 2 and 5 Other Information That Helps Us Care for You: No Feels Safe at Home: Yes Safety Concerns: Feels Safe At This Time Assistive Devices: None Review of Systems A total of 10 systems reviewed and were otherwise negative Physical Exam Vital Signs Vital Signs - 24 hr 04/05/21 11:16 04/05/21 12:00 04/05/21 13:08 Temperature 36.8 C Temperature Source Temporal Artery Scan Pulse Rate 130 H 108 H Pulse Rhythm Regular Respiratory Rate 16 20 Blood Pressure 139/94 Blood Pressure Mean 109 Pulse Oximetry 100 100 100 Oxygen Delivery Method Room Air Room Air Room Air Sepsis Recent Fever Within 48 Hours No Sepsis New/Unexplained Change in Mental Status No Sepsis Action Taken by Nursing No Action Required 04/05/21 13:17 04/05/21 13:30 Temperature Temperature Source Pulse Rate 103 H 108 H Pulse Rhythm Respiratory Rate 18 20 Blood Pressure 140/103 H Blood Pressure Mean 115 Pulse Oximetry Oxygen Delivery Method Sepsis Recent Fever Within 48 Hours Sepsis New/Unexplained Change in Mental Status Sepsis Action Taken by Nursing VITAL SIGNS - Vital signs and nursing notes were reviewed. Tachycardic, otherwise stable. GENERAL - 35-year-old female appearing her stated age who is in no acute distress. Communicates well with provider and answers questions appropriately. SKIN - Without rashes. No meningeal or petechial rash. HEAD - NC/AT. EYES - PERRL with EOMI bilaterally. Sclera anicteric. EARS - No deformities of external structures noted on gross examination bilaterally. NOSE - Midline and without cyanosis. No epistaxis or purulent drainage noted. MOUTH/OROPHARYNX - Without perioral cyanosis. Buccal mucosa pink and moist and without leukoplakia. Tongue midline with equal elevation of palate bilaterally. No tonsillar hypertrophy, erythema, or exudates noted. Good dentition noted. NECK - Neck with FROM. No nuchal rigidity. LUNGS - Chest wall symmetric without accessory muscle use, intercostals retractions, or central cyanosis. Normal vesicular breath sounds CTA B/L. No w heezes, rales, or rhonchi appreciated. CARDIAC - RRR with S1/S2. No murmur, rubs, or gallops appreciated. ABDOMEN - Abdominal contour normal without pulsations or visible masses. BS normoactive all four quadrants. No tenderness, palpable masses, hepatosplenomegaly, or ascites noted. EXTREMITIES - No clubbing or peripheral cyanosis. No pretibial edema present. +5/5 strength noted in UE/LE bilaterally. NEUROLOGIC - Cranial nerves II through XII grossly intact. PSYCH - A&O, and cooperates fully with examiner. Pt is very pleasant and interacts well with examiner. Course Administered Medications Sodium Chloride (Nss 1000ml) 1,000 mls @ 75 mls/hr IV .[id number] GEOVANNA Stop: 04/06/21 07:17 Last Admin: 04/05/21 18:15 Dose: 75 mls/hr Documented by: [id number] Discontinued Medications Acetaminophen (Acetaminophen 500 Mg Tab) 500 mg PO NOW STA Stop: 04/05/21 12:34 Last Admin: 04/05/21 13:44 Dose: 500 mg Documented by: [id number] Albuterol (Albuterol Hfa 8 Gm Inhaler) 2 puffs INH NOW ONE Stop: 04/05/21 12:34 Last Admin: 04/05/21 13:44 Dose: 2 puffs Documented by: [id number] Folic Acid (Folic Acid 1 Mg Tab) 1 mg PO NOW STA Stop: 04/05/21 16:07 Last Admin: 04/05/21 16:31 Dose: Not Given Documented by: [id number] Sodium Chloride (Nss) 500 mls @ 999 mls/hr IV .Q31M ONE Stop: 04/05/21 13:03 Last Infusion: 04/05/21 14:16 Dose: 0 mls/hr Documented by: [id number] Admin: 04/05/21 13:42 Dose: 999 mls/hr Documented by: [id number] Thiamine HCl 100 mg/ Syringe 10 mls @ 2 mls/min IV NOW STA Stop: 04/05/21 16:15 Last Admin: 04/05/21 17:21 Dose: 2 mls/min Documented by: [id number] Folic Acid 1 mg/ Syringe 10 mls @ 5 mls/min IV NOW STA Stop: 04/05/21 16:12 Last Admin: 04/05/21 18:25 Dose: Not Given Documented by: [id number] Ioversol (Optiray 320 125ml) 120 ml IV ONCE ONE Stop: 04/05/21 16:16 Last Admin: 04/05/21 16:15 Dose: 120 ml Documented by: [id number] Ketorolac Tromethamine (Ketorolac Tromethamine 15 Mg/Ml Vial) 15 mg IV NOW STA Stop: 04/05/21 16:08 Last Admin: 04/05/21 17:21 Dose: 15 mg Documented by: [id number] Labetalol HCl (Labetalol Hcl Iv 5 Mg/Ml 20ml) 5 mg IV NOW STA Stop: 04/05/21 17:06 Last Admin: 04/05/21 17:21 Dose: 5 mg Documented by: [id number] Cosigned by: [id number] Multivitamins (Multivitamin Tab) 1 tab PO QAM GEOVANNA Stop: 05/05/21 16:14 Last Admin: 04/05/21 16:31 Dose: Not Given Documented by: [id number] Multivitamins (Multivitamin Tab) 1 tab PO NOW STA Stop: 04/05/21 16:18 Last Admin: 04/05/21 17:20 Dose: 1 tab Documented by: [id number] Ondansetron HCl (Ondansetron Inj 2 Mg/Ml 2 Ml Vial) 4 mg IV NOW STA Stop: 04/05/21 12:34 Last Admin: 04/05/21 13:42 Dose: 4 mg Documented by: [id number] Thiamine HCl (Thiamine Hcl 100 Mg Tab) 100 mg PO NOW STA Stop: 04/05/21 16:07 Last Admin: 04/05/21 16:31 Dose: Not Given Documented by: [id number] Medical Decision Making Laboratory Data Result diagrams: 04/05/21 13:36 04/05/21 13:36 Lab Results 04/05/21 04/05/21 04/05/21 Range/Units 13:36 13:36 13:36 WBC 7.72 (4.8-10.8) K/uL RBC 4.60 (4.2-5.4) M/uL Hgb 14.6 (12.0-16.0) g/dL Hct 40.8 (37-47) % MCV 88.7 (80-100) fL MCH 31.7 (25-34) pg MCHC 35.8 (32-36) g/dL RDW Std Deviation 42.4 (36.4-46.3) fL RDW Coeff of Arnold 13.0 (11.5-14.5) % Plt Count 280 (130-400) K/uL MPV 10.2 (7.4-10.4) fL Immature Gran % (Auto) 0.3 % Neut % (Auto) 72.2 % Lymph % (Auto) 22.5 % Hopkins % (Auto) 4.5 % Eos % (Auto) 0.4 % Baso % (Auto) 0.1 % Neut # (Auto) 5.57 (1.4-6.5) K/uL Lymph # (Auto) 1.74 (1.2-3.4) K/uL Hopkins # (Auto) 0.35 (0.11-0.59) K/uL Eos # (Auto) 0.03 (0-0.5) K/uL Baso # (Auto) 0.01 (0-0.2) K/uL Immature Gran # (Auto) 0.02 (0.00-0.02) K/uL Sodium 128 L (136-145) mmol/L Potassium 3.8 (3.5-5.1) mmol/L Chloride 93 L (98-107) mmol/L Carbon Dioxide 15 L (21-32) mmol/L Anion Gap 20.0 H (3-11) BUN 19 H (7-18) mg/dl Creatinine 0.78 (0.6-1.2) mg/dl Est Cr Clr Drug Dosing 76.7 ml/min Est GFR ( Amer) 115.0 ml/min Est GFR (Non-Af Amer) 99.2 ml/min BUN/Creatinine Ratio 24.2 H (10-20) Glucose 136 H (70-99) mg/dl Osmolality (280-300) mOsm/kg Lactate (0.4-2.0) mmol/L Calcium 9.3 (8.5-10.1) mg/dl Magnesium 2.3 (1.8-2.4) mg/dl Total Bilirubin 1.4 H (0.2-1) mg/dl AST 68 H (15-37) U/L ALT 51 (12-78) U/L Alkaline Phosphatase 52 (45-117) U/L Troponin I < 0.015 (0-0.045) ng/ml Total Protein 9.3 H (6.4-8.2) gm/dl Albumin 4.3 (3.4-5.0) gm/dl Globulin 5.0 H (2.5-4.0) gm/dl Albumin/Globulin Ratio 0.9 (0.9-2) Lipase 382 (73-393) U/L Procalcitonin (0-0.5) ng/ml TSH (0.300-4.500) uIu/ml HCG, Qual Negative (Negative) COVID-19 Eval Order SARS-CoV-2 (PCR) (Negative) 04/05/21 04/05/21 04/05/21 Range/Units 13:36 13:36 13:36 WBC (4.8-10.8) K/uL RBC (4.2-5.4) M/uL Hgb (12.0-16.0) g/dL Hct (37-47) % MCV (80-100) fL MCH (25-34) pg MCHC (32-36) g/dL RDW Std Deviation (36.4-46.3) fL RDW Coeff of Arnold (11.5-14.5) % Plt Count (130-400) K/uL MPV (7.4-10.4) fL Immature Gran % (Auto) % Neut % (Auto) % Lymph % (Auto) % Hopkins % (Auto) % Eos % (Auto) % Baso % (Auto) % Neut # (Auto) (1.4-6.5) K/uL Lymph # (Auto) (1.2-3.4) K/uL Hopkins # (Auto) (0.11-0.59) K/uL Eos # (Auto) (0-0.5) K/uL Baso # (Auto) (0-0.2) K/uL Immature Gran # (Auto) (0.00-0.02) K/uL Sodium (136-145) mmol/L Potassium (3.5-5.1) mmol/L Chloride (98-107) mmol/L Carbon Dioxide (21-32) mmol/L Anion Gap (3-11) BUN (7-18) mg/dl Creatinine (0.6-1.2) mg/dl Est Cr Clr Drug Dosing ml/min Est GFR ( Amer) ml/min Est GFR (Non-Af Amer) ml/min BUN/Creatinine Ratio (10-20) Glucose (70-99) mg/dl Osmolality (280-300) mOsm/kg Lactate 1.0 (0.4-2.0) mmol/L Calcium (8.5-10.1) mg/dl Magnesium (1.8-2.4) mg/dl Total Bilirubin (0.2-1) mg/dl AST (15-37) U/L ALT (12-78) U/L Alkaline Phosphatase (45-117) U/L Troponin I (0-0.045) ng/ml Total Protein (6.4-8.2) gm/dl Albumin (3.4-5.0) gm/dl Globulin (2.5-4.0) gm/dl Albumin/Globulin Ratio (0.9-2) Lipase (73-393) U/L Procalcitonin 0.16 (0-0.5) ng/ml TSH (0.300-4.500) uIu/ml HCG, Qual (Negative) COVID-19 Eval Order Covid19 at [facility] SARS-CoV-2 (PCR) (Negative) 04/05/21 04/05/21 04/05/21 Range/Units 13:36 13:36 13:36 WBC (4.8-10.8) K/uL RBC (4.2-5.4) M/uL Hgb (12.0-16.0) g/dL Hct (37-47) % MCV (80-100) fL MCH (25-34) pg MCHC (32-36) g/dL RDW Std Deviation (36.4-46.3) fL RDW Coeff of Arnold (11.5-14.5) % Plt Count (130-400) K/uL MPV (7.4-10.4) fL Immature Gran % (Auto) % Neut % (Auto) % Lymph % (Auto) % Hopkins % (Auto) % Eos % (Auto) % Baso % (Auto) % Neut # (Auto) (1.4-6.5) K/uL Lymph # (Auto) (1.2-3.4) K/uL Hopkins # (Auto) (0.11-0.59) K/uL Eos # (Auto) (0-0.5) K/uL Baso # (Auto) (0-0.2) K/uL Immature Gran # (Auto) (0.00-0.02) K/uL Sodium (136-145) mmol/L Potassium (3.5-5.1) mmol/L Chloride (98-107) mmol/L Carbon Dioxide (21-32) mmol/L Anion Gap (3-11) BUN (7-18) mg/dl Creatinine (0.6-1.2) mg/dl Est Cr Clr Drug Dosing ml/min Est GFR ( Amer) ml/min Est GFR (Non-Af Amer) ml/min BUN/Creatinine Ratio (10-20) Glucose (70-99) mg/dl Osmolality 289 (280-300) mOsm/kg Lactate (0.4-2.0) mmol/L Calcium (8.5-10.1) mg/dl Magnesium (1.8-2.4) mg/dl Total Bilirubin (0.2-1) mg/dl AST (15-37) U/L ALT (12-78) U/L Alkaline Phosphatase (45-117) U/L Troponin I (0-0.045) ng/ml Total Protein (6.4-8.2) gm/dl Albumin (3.4-5.0) gm/dl Globulin (2.5-4.0) gm/dl Albumin/Globulin Ratio (0.9-2) Lipase (73-393) U/L Procalcitonin (0-0.5) ng/ml TSH 1.670 (0.300-4.500) uIu/ml HCG, Qual (Negative) COVID-19 Eval Order SARS-CoV-2 (PCR) NEGATIVE (Negative) Imaging Data Radiologist's Impression: Chest CTA 04/05/21 12:33 CHEST CTA for PULMONARY ARTERIES CT DOSE: 289.87 mGy.cm HISTORY: dyspnea, chest pain, tachycardia TECHNIQUE: Multiaxial CT images of the chest were performed following the intravenous administration of contrast to evaluate the pulmonary arteries. Maximal intensity projection images were also obtained. A dose lowering technique was utilized adhering to the principles of ALARA. COMPARISON STUDY: Chest CTA 08/19/2019. FINDINGS: Limited views the upper abdomen demonstrate mild hepatic steatosis and a normal spleen. No pleural or pericardial effusions. Normal caliber thoracic aorta with no evidence for dissection. The heart is normal in size. No filling defects within the pulmonary arteries to suggest a pulmonary embolus. Normal esophagus. No mediastinal or hilar lymphadenopathy. No fractures within the visualized osseous structures. No pneumothorax. Small amount of mucoid material within the mid trachea. No focal lung consolidations to suggest pneumonia. IMPRESSION: No evidence for pulmonary embolus. ACT 112: Negative or not required by law. Electronically signed by: Kadeem Graff M.D. 04/05/2021 4:29 PM MDM Narrative Patient was seen and evaluated as above in room C10. Review was performed of nursing notes and vital signs. I did review pertinent previous visits and patient history. After obtaining a thorough history and physical examination the above work up was performed. Patient presents to us today with shortness of breath, fever, body aches, headache, nausea, vomiting. Patient is currently being seen during the COVID-19 pandemic. Clinically the patient is overall well-appearing. Options of care were discussed with the patient. IV access was established. Labs were drawn. EKG reveals sinus tachycardia at a rate of 114 bpm. QTc 493. QRS 78. Patient was given IV fluids, IV thiamine, IV folic acid and p.o. multivitamin. Patient was also given IV Zofran for nausea and IV Toradol/p.o. acetaminophen for pain. 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 Patient also notes that her children are on quarantine secondary to exposure to positive COVID-19 individuals. Laboratory studies reveal no leukocytosis or anemia. Mild metabolic acidosis noted with anion gap of 20. Hyponatremia at 128. Troponin negative. Pro-Ayden mildly detectable but within normal range. test negative. Urinalysis does not suggest infection. Covid test surprisingly negative noting her symptoms. With the patient having vomiting at home with a difficult time keeping down food and fluids noting that she is insulin-dependent diabetic I do believe that further evaluation and management the inpatient setting is warranted for her hyponatremia among other symptoms. Case discussed with the hospitalist. Please refer to further documentation regarding her stay. Case discussed with the attending physician. GCS 15. In the evaluation and treatment of this patient the following differential diagnoses were entertained: COVID-19, [place], PE, pericarditis, myocarditis, costoc hondritis, acute abdomen, DKA, alcohol withdrawal, among others. Impression & Plan Hyponatremia, Dehydration, Nausea & vomiting, Shortness of breath Discharge Plan Visit Data Chief Complaint: Shortness of Breath/Dyspnea Stated Complaint: SHORTNESS OF BREATH, FEVER,BODY PAIN, HEADACHE ED Provider: Pee Shankar ED Midlevel Provider: Alex Oconnor Discharge Problem: Hyponatremia, Dehydration, Nausea & vomiting, Shortness of breath Patient Disposition: Admitted As Inpatient Condition: Good Discharge Instructions Interventions: ED Discharge Assessment Last Done: 04/05/21 17:43
[2021-04-05 13:52] LABS: Basophils # (auto) 0.01 K/uL (0-0.2); Basophils % (auto) 0.1 %; Eosinophils # (auto) 0.03 K/uL (0-0.5); Eosinophils % (auto) 0.4 %; Hematocrit (blood only) 40.8 % (37-47); Hemoglobin 14.6 g/dL (12.0-16.0); Immature Granulocytes # (auto) 0.02 K/uL (0.00-0.02); Immature Granulocytes % (auto) 0.3 %; Lymphocytes # (auto) 1.74 K/uL (1.2-3.4); Lymphocytes % (auto) 22.5 %; Mean Corpuscular Hemoglobin 31.7 pg (25-34); Mean Corpuscular Hgb Conc 35.8 g/dL (32-36); Mean Corpuscular Volume 88.7 fL (80-100); Mean Platelet Volume 10.2 fL (7.4-10.4); Monocytes # (auto) 0.35 K/uL (0.11-0.59); Monocytes % (auto) 4.5 %; Neutrophils # (auto) 5.57 K/uL (1.4-6.5); Neutrophils % (auto) 72.2 %; Platelet Count 280 K/uL (130-400); RDW Standard Deviation 42.4 fL (36.4-46.3); White Blood Count 7.72 K/uL (4.8-10.8)
[2021-04-05 14:06] LABS: Alanine Aminotransferase 51 U/L (12-78); Albumin Level 4.3 gm/dl (3.4-5.0); Aspartate Aminotransferase 68 U/L (15-37); BUN Creatinine Ratio 24.2 (10-20); Blood Urea Nitrogen 19 mg/dl (7-18); Calcium 9.3 mg/dl (8.5-10.1); Carbon Dioxide 15 mmol/L (21-32); Chloride 93 mmol/L (98-107); Creatinine Clr Calc Pharmacy 76.7 ml/min; Est GFR (Non-African American) 99.2 ml/min; Glucose 136 mg/dl (70-99); Lipase 382 U/L (73-393); Magnesium 2.3 mg/dl (1.8-2.4); Potassium 3.8 mmol/L (3.5-5.1); Sodium 128 mmol/L (136-145)
[2021-04-05 14:13] LABS: Albumin Globulin Ratio 0.9 (0.9-2); Alkaline Phosphatase 52 U/L (45-117); Bilirubin,Total 1.4 mg/dl (0.2-1); Total Protein 9.3 gm/dl (6.4-8.2); Troponin I < 0.015 ng/ml (0-0.045)
[2021-04-05 14:18] LABS: Pregnancy Test, Serum Negative (Negative)
[2021-04-05] MEDS ORDERED: FOLIC ACID 1 MG TAB PO STA (16:06)
[2021-04-05] MEDS ORDERED: THIAMINE HCL 100 MG TAB PO STA (16:06)
[2021-04-05] MEDS ORDERED: KETOROLAC TROMETHAMINE 15 MG/ML VIAL IV STA (16:07)
[2021-04-05] MEDS ORDERED: FOLIC ACID 1 MG in SYRINGE 9.8 ML IV STA (16:11)
[2021-04-05] MEDS ORDERED: THIAMINE HCL 100 MG in SYRINGE 9 ML IV STA (16:11)
[2021-04-05] MEDS ORDERED: OPTIRAY 320 125ml IV ONE (16:15)
[2021-04-05] MEDS ORDERED: MULTIVITAMIN TAB PO SCH (16:15)
[2021-04-05] MEDS ORDERED: MULTIVITAMIN TAB PO STA (16:17)
--- NOTE | 2021-04-05 16:30 | CT Scan Report ---
CHEST CTA for PULMONARY ARTERIES CT DOSE: 289.87 mGy.cm HISTORY: dyspnea, chest pain, tachycardia TECHNIQUE: Multiaxial CT images of the chest were performed following the intravenous administration of contrast to evaluate the pulmonary arteries. Maximal intensity projection images were also obtaine d. A dose lowering technique was utilized adhering to the principles of ALARA. COMPARISON STUDY: Chest CTA 08/19/2019. FINDINGS: Limited views the upper abdomen demonstrate mild hepatic steatosis and a normal spleen. No pleural or pericardial effusions. Normal caliber thoracic aorta with no evidence for dissection. The heart is normal in size. No filling defects within the pulmonary arteries to suggest a pulmonary embo rita. Normal esophagus. No mediastinal or hilar lymphadenopathy. No fractures within the visualized os seous structures. No pneumothorax. Small amount of mucoid material within the mid trachea. No focal l bree consolidations to suggest pneumonia. IMPRESSION: No evidence for pulmonary embolus. ACT 112: Negative or not required by law. Electronically signed by: Kadeem Graff M.D. 04/05/2021 4:29 PM
[2021-04-05] MEDS ORDERED: LABETALOL HCL IV 5 MG/ML 20ML IV STA (17:05)
--- NOTE | 2021-04-05 17:21 | History & Physical Report ---
Date of Service April 05, 2021 Assessment & Plan (1) Viral syndrome: (2) Hyponatremia: Plan: This is a 35-year-old female who has significant past medical history of T2DM, HTN, vitamin D deficiency, alcoholism, depression with anxiety, ADHD, tobacco abuse who presents to ED secondary to ill feeling x5 days. Pt presents with viral-like syndrome including sinus congestion, sore throat, SOB and cough. SARS-CoV-2 negative. 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 She also underwent dental implant on , 04/01, which was the day of onset of symptoms. CTA negative for PE and PNA. Blood culture pending She further complains of fever, shortness of breath and also had numerous episodes of vomiting and nausea. Last episode was 4 AM this morning. She has prior history of alcohol abuse being in remission for 13 months until last week. Her history is unreliable but she states her last alcoholic drink was on Monday, 03/31. Viral syndrome sx include sinus congestion, sore throat, cough, sob likely 2/2 to viral URI covid negative blood cultures pending - she did have dental work done 04/01. Hyponatremia, chronic possibly 2/2 to emesis vs alcohol, vs polydipsia (states she drinks 6-8 16oz alcaraz a day) Admit to medical telemetry gentle IVF 75cc/hr x 1 L Urine na, osm and serum osm check tsh repeat lipase in a.m. - hx of alcoholic pancreatitis repeat bmp at 2200 (3) Increased anion gap metabolic acidosis: Plan: ? if 2/2 to alcohol or starvation monitor bmp no lactic acidosis or evidence of DKA (4) Alcohol abuse: Plan: hx of ETOH abuse, was in remission for 13 months until 1 week ago. She states last alcoholic beverage was 5 days ago although history unreliable. Patient presents with tachycardia and hypertension so there is concern for possible underlying withdrawal AWSS protocol, as needed IV lorazepam Daily folic acid and thiamine replacement (5) Transaminitis: Plan: Total bilirubin 1.4, AST 68 Previously elevated in past Repeat CMP in morning Currently no abdominal pain or GI symptoms if remains elevated would eval with RUQ US (6) HTN (hypertension): Plan: pt previously on nifedipine currently not taking outpatient medications IV labetalol 5mg x 1 now, add prn q8h monitor blood pressure (7) DMII (diabetes mellitus, type 2): Plan: last a1c 6.3 pt states she follows keto diet and has been managing with diet has not been taking insulin place on lantus/novolog per protocol a1c in a.m. (8) Major depressive disorder: Plan: uses medical marijuana to cope with depression per pt DVT ppx: SCD/TEDS for now Dispo: med tele PCP: Randy FULL CODE History of Present Illness Chief Complaint: Ill feeling x5 days. Primary Care Provider: Harinder Nathan DO This is a 35-year-old female who has significant past medical history of T2DM, HTN, vitamin D deficiency, alcoholism, depression with anxiety, ADHD, tobacco abuse who presents to ED secondary to ill feeling x5 days. Her symptoms started on where she generally felt unwell. She was scheduled for a dental implant that day and opted to proceed with implant due to waiting a year and a half for it. On she developed general upper respiratory-like symptoms including stuffy nose, postnasal drip, sore throat and mild cough. Symptoms progressed to nausea, vomiting and abdominal pain. She has been unable to eat much over the last 5 days. She has been pushing water approximately 6 to 816 ounce bottles a day. She is overall felt feverish and chilled but no documented temperature. She denies any lightheadedness, dizziness, syncope, chest pain, hemoptysis, hematemesis, melena, hematochezia, diarrhea, dysuria, increased urgency or frequency with urination. She admits to shortness of breath with exertion but denies shortness of breath at rest. She also complains of constipation and her last bowel movement was, "I cannot remember." She relates this to not eating much. She states even when feeling well she is not an eater. She has two children who are school-age and recently had to quarantine secondary to their teacher testing positive for Covid. They also have upper respiratory-like symptoms. Patient admits to history of alcoholism for which she quit drinking alcohol for the past 13 months until 1 week ago. She had a relapse where she drank Monday and Monday and she states her last alcoholic beverage was on Monday. Allergies Allergy/AdvReac Type Severity Reaction Status Date / Time bee venom protein (honey bee) Allergy Unknown ANAPHYLAXIS Verified 04/05/21 14:24 Home Medications Medication Instructions Recorded Confirmed Type albuterol sulfate 90 mcg/actuation 1 puff INHALATION Q6H PRN 08/09/18 04/05/21 History aerosol inhaler (Ventolin HFA) insulin glargine 100 unit/mL (3 0 unit SUBCUT DIRECTED 10/07/18 04/05/21 History mL) subcutaneous pen (Lantus Solostar U-100 Insulin) insulin lispro 100 unit/mL 0 unit SUBCUT AC 10/07/18 04/05/21 History subcutaneous pen nifedipine 30 mg tablet,extended 30 mg PO DAILY #30 tab 10/07/18 04/05/21 Rx release (Adalat CC) montelukast 10 mg tablet 10 mg PO HS 05/01/19 04/05/21 History folic acid 1 mg tablet 1 mg PO QAM #30 tab 05/02/19 04/05/21 Rx oxycodone 5 mg tablet 5 mg PO Q6H PRN #20 tab 05/02/19 04/05/21 Rx cetirizine 10 mg tablet 10 mg PO DAILY 08/19/19 04/05/21 History cholecalciferol (vitamin D3) 10 400 unit PO DAILY 08/19/19 04/05/21 History mcg (400 unit) chewable tablet cyclobenzaprine 5 mg tablet 5 mg PO BID PRN 08/19/19 04/05/21 History epinephrine 0.3 mg/0.3 mL 0.3 mg IM Q3H PRN 08/19/19 04/05/21 History injection, auto-injector (EpiPen 2-Jason) ferrous sulfate 325 mg (65 mg 325 mg PO DAILY 08/19/19 04/05/21 History iron) tablet,delayed release hydroxyzine HCl 50 mg tablet 50 mg PO BID PRN 08/19/19 04/05/21 History vilazodone 20 mg tablet (Viibryd) 20 mg PO DAILY 08/19/19 04/05/21 History Past Med/Surg History Medical History (Updated 04/05/21 @ 19:01 by Alex Oconnor PA-C) Anxiety H/O Asthma Cardiac murmur CONGENITAL -- BENIGN. 10/09/15 echo: The examination is adequate to evaluate the referral indication. The qualitative LV ejection fraction is 60-64% (normal). The left ventricular diastolic function is normal. No significant valvular disease is present. Depression H/O Diabetes GERD (gastroesophageal reflux disease) R/T Gestational diabetes Scoliosis MINOR Surgical History History of adenoidectomy History of section x 2 History of tonsillectomy Family History Other Adopted Social History Smoking Status: Current some day smoker Cigarettes Per Day: 1-2; Second Hand Exposure: No; Do You Dip or Chew Tobacco: No; Tobacco Cessation Education Requested by Patient: No Hx Alcohol Use: Yes Alcohol type: hard liquor Hx Substance Use: Yes (medical oil for anxiety) Prescribed Medications: Marijuana Last Used Substance: Days (ago) Preferred Language: [place] African 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: Effective Appointment Clerk Required: No Beliefs That Will Affect Care: None Current Living Situation: Family Current Living Situation Comment: lives w/ kids 2 and 5 Other Information That Helps Us Care for You: No Feels Safe at Home: Yes Safety Concerns: Feels Safe At This Time Assistive Devices: None Review of Systems Review of Systems: All systems reviewed & are unremarkable except as noted in HPI & below Physical Exam Physical Exam: Constitutional: WD/WN, vitals as above, NAD, sitting up in bed, pleasant, conversing easily Head: Normocephalic, Atraumatic Eyes: PERRL, conjunctivae normal, anicteric sclerae ENMT: external ear and nose normal, oropharynx normal Neck: trachea midline, no thyromegaly normal visual inspection Respiratory: normal respiratory effort, lungs clear to auscultation, no wheeze, rales, rhonchi. Normal insp/exp effort, no accessory muscle use Cardiovascular: RRR, soft 1/6 DALIA noted RUSB, no edema Vessels: no JVD or carotid bruit Chest: normal inspection of chest Abdomen: normal bowel sounds, soft, nontender, no hepatosplenomegaly Musculoskeletal: no cyanosis or clubbing, extremities motor strength 5/5 Skin: no rashes, warm and dry normal turgor, tattoo to upper posterior cervical region Neurologic: PERRL, EOMI, accommodation nl, no face palsy, no dysarthria CN's II-XI intact bilaterally and moves all extremities Psychiatric: A+Ox3, euthymic affect Lymphatic: no cervical or axillary lymphadenopathy : deferred Results & Data Results & Data ([facility]) Vital Signs (Past 12 Hours) Vital Signs Temp Pulse Resp BP Pulse Ox 04/05/21 13:30 108 H 20 140/103 H 04/05/21 13:17 103 H 18 04/05/21 13:08 108 H 20 100 04/05/21 12:00 100 04/05/21 11:16 36.8 C 130 H 16 139/94 100 Diagnostic Findings Chest CTA 04/05/21 12:33 CHEST CTA for PULMONARY ARTERIES CT DOSE: 289.87 mGy.cm HISTORY: dyspnea, chest pain, tachycardia TECHNIQUE: Multiaxial CT images of the chest were performed following the intravenous administration of contrast to evaluate the pulmonary arteries. Maximal intensity projection images were also obtained. A dose lowering technique was utilized adhering to the principles of ALARA. COMPARISON STUDY: Chest CTA 08/19/2019. FINDINGS: Limited views the upper abdomen demonstrate mild hepatic steatosis and a normal spleen. No pleural or pericardial effusions. Normal caliber thoracic aorta with no evidence for dissection. The heart is normal in size. No filling defects within the pulmonary arteries to suggest a pulmonary embolus. Normal esophagus. No mediastinal or hilar lymphadenopathy. No fractures within the visualized osseous structures. No pneumothorax. Small amount of mucoid material within the mid trachea. No focal lung consolidations to suggest pneumonia. IMPRESSION: No evidence for pulmonary embolus. ACT 112: Negative or not required by law. Electronically signed by: Kadeem Graff M.D. 04/05/2021 4:29 PM Medications Administered Medication List Discontinued Medications Acetaminophen (Acetaminophen 500 Mg Tab) 500 mg PO NOW STA Stop: 04/05/21 12:34 Last Admin: 04/05/21 13:44 Dose: 500 mg Documented by: [id number] Albuterol (Albuterol Hfa 8 Gm Inhaler) 2 puffs INH NOW ONE Stop: 04/05/21 12:34 Last Admin: 04/05/21 13:44 Dose: 2 puffs Documented by: [id number] Folic Acid (Folic Acid 1 Mg Tab) 1 mg PO NOW STA Stop: 04/05/21 16:07 Last Admin: 04/05/21 16:31 Dose: Not Given Documented by: [id number] Sodium Chloride (Nss) 500 mls @ 999 mls/hr IV .Q31M ONE Stop: 04/05/21 13:03 Last Infusion: 04/05/21 14:16 Dose: 0 mls/hr Documented by: [id number] Admin: 04/05/21 13:42 Dose: 999 mls/hr Documented by: [id number] Thiamine HCl 100 mg/ Syringe 10 mls @ 2 mls/min IV NOW STA Stop: 04/05/21 16:15 Last Admin: 04/05/21 17:21 Dose: 2 mls/min Documented by: [id number] Ioversol (Optiray 320 125ml) 120 ml IV ONCE ONE Stop: 04/05/21 16:16 Last Admin: 04/05/21 16:15 Dose: 120 ml Documented by: [id number] Ketorolac Tromethamine (Ketorolac Tromethamine 15 Mg/Ml Vial) 15 mg IV NOW STA Stop: 04/05/21 16:08 Last Admin: 04/05/21 17:21 Dose: 15 mg Documented by: [id number] Labetalol HCl (Labetalol Hcl Iv 5 Mg/Ml 20ml) 5 mg IV NOW STA Stop: 04/05/21 17:06 Last Admin: 04/05/21 17:21 Dose: 5 mg Documented by: [id number] Cosigned by: [id number] Multivitamins (Multivitamin Tab) 1 tab PO QAM GEOVANNA Stop: 05/05/21 16:14 Last Admin: 04/05/21 16:31 Dose: Not Given Documented by: [id number] Multivitamins (Multivitamin Tab) 1 tab PO NOW STA Stop: 04/05/21 16:18 Last Admin: 04/05/21 17:20 Dose: 1 tab Documented by: [id number] Ondansetron HCl (Ondansetron Inj 2 Mg/Ml 2 Ml Vial) 4 mg IV NOW STA Stop: 04/05/21 12:34 Last Admin: 04/05/21 13:42 Dose: 4 mg Documented by: [id number] Thiamine HCl (Thiamine Hcl 100 Mg Tab) 100 mg PO NOW STA Stop: 04/05/21 16:07 Last Admin: 04/05/21 16:31 Dose: Not Given Documented by: [id number] ECG Indication: tachycardia Rate (beats per minute): 114 Rhythm: sinus tachycardia COVID-19 Results Results COVID-19 Adm Lab Results: RBC 4.60 M/uL (4.2-5.4) 04/05/21 WBC 7.72 K/uL (4.8-10.8) 04/05/21 Hgb 14.6 g/dL (12.0-16.0) 04/05/21 Hct 40.8 % (37-47) 04/05/21 Plt Count 280 K/uL (130-400) 04/05/21 Neutrophils (%) (Auto) 72.2 % 04/05/21 Lymphocytes (%) (Auto) 22.5 % 04/05/21 Monocytes # (Auto) 0.35 K/uL (0.11-0.59) 04/05/21 Eosinophils # (Auto) 0.03 K/uL (0-0.5) 04/05/21 Immature Granulocyte % (Auto) 0.3 % 04/05/21 Neutrophils # (Auto) 5.57 K/uL (1.4-6.5) 04/05/21 Lymphocytes # (Auto) 1.74 K/uL (1.2-3.4) 04/05/21 Monocytes # (Auto) 0.35 K/uL (0.11-0.59) 04/05/21 Eosinophils # (Auto) 0.03 K/uL (0-0.5) 04/05/21 Basophils # (Auto) 0.01 K/uL (0-0.2) 04/05/21 Immature Granulocyte # (Auto) 0.02 K/uL (0.00-0.02) 04/05/21 Na 128 mmol/L (136-145) L 04/05/21 K 3.8 mmol/L (3.5-5.1) 04/05/21 Cl 93 mmol/L (98-107) L 04/05/21 CO2 15 mmol/L (21-32) L 04/05/21 Anion Gap 20.0 (3-11) H 04/05/21 BUN 19 mg/dl (7-18) H 04/05/21 Creatinine 0.78 mg/dl (0.6-1.2) 04/05/21 BUN/Creatinine Ratio 24.2 (10-20) H 04/05/21 Glucose Level 136 mg/dl (70-99) H 04/05/21 Ca 9.3 mg/dl (8.5-10.1) 04/05/21 Total Bilirubin 1.4 mg/dl (0.2-1) H 04/05/21 AST/SGOT 68 U/L (15-37) H 04/05/21 ALT/SGPT 51 U/L (12-78) 04/05/21 Alkaline Phosphatase 52 U/L (45-117) 04/05/21 Total Protein 9.3 gm/dl (6.4-8.2) H 04/05/21 Albumin 4.3 gm/dl (3.4-5.0) 04/05/21 Globulin 5.0 gm/dl (2.5-4.0) H 04/05/21 Albumin/Globulin Ratio 0.9 (0.9-2) 04/05/21 Troponin I < 0.015 ng/ml (0-0.045) 04/05/21 Procalcitonin 0.16 ng/ml (0-0.5) 04/05/21 COVID-19 PCR NEGATIVE (Negative) 04/05/21 Code Status & VTE Plan Code Status FULL CODE VTE Prophylaxis Plan VTE Prophylaxis will be ordered: Yes Supervising Physician Co-Signing Physician Notes 35-year-old female with PMH of significant psychiatric history, noncompliance to medications, T2DM, alcohol abuse [sober for 13 months, recently relapsed a week ago] HTN, vitamin D deficiency, alcoholism, depression with anxiety, ADHD, tobacco abuse who presents to ED secondary to ill feeling x5 days. Per patient she was feeling ill since last week which was worsening since last 5 days. Likely alcoholic ketosis on the background of relapsed alcohol intake with no to very little food intake in the last 1 week per patient. Hyponatremia can be multifactorial [polydipsia versus serotonin medicines versus alcohol]. Her sinus symptoms looks more like viral as well as she gives various nonspecific sinus symptoms and possible exposure to Covid. Covid was negative. Patient feels a lot better at bedside. For concerns of alcohol withdrawal, will put her on AWSS protocol. Upon examination: GENERAL: Alert and oriented x3. NAD, on RA. HEENT: No pallor, no icterus. Pupils equal, round and reactive to light. Oral mucosa moist. NECK: No JVD, no neck masses. HEART: S1 and S2 heard. Regular rate and rhythm. No murmur, no gallop. RESPIRATORY SYSTEM: Normal AP diameter. No accessory muscle use. No wheezing, no crackles. ABDOMEN: Soft, bowel sounds present, nontender, no distention. CENTRAL NERVOUS SYSTEM: Alert and oriented x3. No facial droop. Speech is clear. Obeys simple commands. Moves extremities. EXTREMITIES: No edema, no erythema seen. I have seen and examined the patient and have discussed the case with the provider above. I agree with the assessment and plan as stated.
[2021-04-05] MEDS ORDERED: ACETAMINOPHEN 325 MG TAB PO PRN (17:58)
[2021-04-05] MEDS ORDERED: MAGNESIUM HYDROXIDE SUSP 30 ML UDC PO PRN (17:58)
[2021-04-05] MEDS ORDERED: POLYETHYLENE (MIRALAX) 17 GM PACK PO PRN (17:58)
[2021-04-05] MEDS ORDERED: DEXTROSE 50% 50 ML SYRINGE IV PRN (17:58)
[2021-04-05] MEDS ORDERED: ONDANSETRON INJ 2 MG/ML 2 ML VIAL IV PRN (17:58)
[2021-04-05] MEDS ORDERED: GLUCAGON FOR INJ 1 MG VIAL SQ PRN (17:58)
[2021-04-05] MEDS ORDERED: LABETALOL HCL IV 5 MG/ML 20ML IV PRN (17:58)
[2021-04-05] MEDS ORDERED: GLUCOSE 10 TABS/TUBE PO PRN (17:58)
[2021-04-05] MEDS ORDERED: ALUMINUM/MAGNESIUM SUSP 30 ML UDC PO PRN (17:58)
[2021-04-05] MEDS ORDERED: SODIUM CHLORIDE 0.9% 1000ML 1,000 ML IV SCH (17:58)
[2021-04-05] MEDS ORDERED: CARBOHYDRATES FOR HYPOGLYCEMIA PO PRN (17:58)
[2021-04-05] MEDS ORDERED: GLUCOSE 40% GEL 15 GM TUBE PO PRN (17:58)
[2021-04-05] MEDS ORDERED: LORazepam 1 MG/2 ML VIAL IV PRN (17:58)
[2021-04-05 17:59] LABS: Base Excess VBG -8.7 mEq/L; HCO3 VBG 16 mmol/L; PCO2 VBG 31 mmHg (38-50); PO2 VBG 24 mmHg; pH VBG 7.33 (7.36-7.41)
[2021-04-05 18:42] LABS: Oxygen Saturation VBG < 60.0 %
[2021-04-05 18:49] LABS: Appearance Urine Clear (Clear); Bacteria Urine Automated Negative (Negative); Bilirubin Urine Negative (Negative); Blood Urine 3+ (Negative); Cast Urine Automated 0 /lpf (0-5); Color Urine Yellow; Glucose Urine UA Negative (Negative); Ketones Urine 3+ (Negative); Leukocyte Esterase Urine Negative (Negative); Nitrite Urine Negative (Negative); Protein Urine 1+ (Negative); Specific Gravity Urine > 1.045 (1.000-1.030); Urobilinogen Urine Negative (Negative); pH Urine 6.5 (4.5-7.5)
[2021-04-05] MEDS: THIAMINE HCL 100 MG TAB PO SCH (19:00)
[2021-04-05] MEDS: FOLIC ACID 1 MG TAB PO SCH (19:01)
[2021-04-05 19:18] LABS: Amphetamines+Metham, Urine Neg (Neg); Barbiturates, Urine Neg (Neg); Benzodiazepine, Urine Neg (Neg); Cocaine, Urine Neg (Neg); MDMA (Ecstacy), Urine Neg (Neg); Methadone, Urine Neg (Neg); Opiate, Urine Neg (Neg); Phencyclidine, Urine Neg (Neg)
[2021-04-05] MEDS: INSULIN ASPART 100 UNITS/ML 3 ML PEN SC SCH (20:57)
[2021-04-05] MEDS ORDERED: INSULIN GLARGINE SOLOSTAR 100 UNITS/ML 3 ML PEN SC SCH (21:00)
[2021-04-05 22:56] LABS: Calcium 8.4 mg/dl (8.5-10.1); Creatinine Clr Calc Pharmacy 77.7 ml/min; Est GFR (African American) 116.8 ml/min; Est GFR (Non-African American) 100.7 ml/min; Potassium 3.6 mmol/L (3.5-5.1)
[2021-04-06 08:07] LABS: Basophils # (auto) 0.01 K/uL (0-0.2); Basophils % (auto) 0.2 %; Eosinophils # (auto) 0.11 K/uL (0-0.5); Eosinophils % (auto) 2.1 %; Hematocrit (blood only) 34.3 % (37-47); Immature Granulocytes # (auto) 0.01 K/uL (0.00-0.02); Immature Granulocytes % (auto) 0.2 %; Lymphocytes # (auto) 1.67 K/uL (1.2-3.4); Lymphocytes % (auto) 32.1 %; Mean Corpuscular Volume 88.6 fL (80-100); Mean Platelet Volume 9.9 fL (7.4-10.4); Monocytes # (auto) 0.27 K/uL (0.11-0.59); Monocytes % (auto) 5.2 %; Neutrophils # (auto) 3.13 K/uL (1.4-6.5); Neutrophils % (auto) 60.2 %; Platelet Count 176 K/uL (130-400); RDW Standard Deviation 41.9 fL (36.4-46.3); Red Blood Count 3.87 M/uL (4.2-5.4)
[2021-04-06] MEDS: INSULIN ASPART 100 UNITS/ML 3 ML PEN SC SCH ×2 (08:42→13:02)
[2021-04-06] MEDS: THIAMINE HCL 100 MG TAB PO SCH (08:43)
[2021-04-06] MEDS: FOLIC ACID 1 MG TAB PO SCH (08:43)
[2021-04-06 08:50] LABS: Alanine Aminotransferase 34 U/L (12-78); Albumin Globulin Ratio 0.9 (0.9-2); Alkaline Phosphatase 38 U/L (45-117); Aspartate Aminotransferase 44 U/L (15-37); BUN Creatinine Ratio 28.8 (10-20); Bilirubin,Total 1.3 mg/dl (0.2-1); Blood Urea Nitrogen 10 mg/dl (7-18); Calcium 8.2 mg/dl (8.5-10.1); Carbon Dioxide 21 mmol/L (21-32); Chloride 103 mmol/L (98-107); Creatinine Clr Calc Pharmacy 166.2 ml/min; Est GFR (African American) > 150.0 ml/min; Est GFR (Non-African American) 140.7 ml/min; Globulin 3.5 gm/dl (2.5-4.0); Glucose 112 mg/dl (70-99); Lipase 373 U/L (73-393); Potassium 3.2 mmol/L (3.5-5.1); Sodium 135 mmol/L (136-145); Total Protein 6.5 gm/dl (6.4-8.2)
[2021-04-06 08:55] LABS: Estimated Average Glucose 108 mg/dl; Hemoglobin A1C 5.4 % (4.5-5.6)
[2021-04-06] MEDS ORDERED: POTASSIUM CHLORIDE CRTAB 20 MEQ TABCR PO STA (09:32)
--- NOTE | 2021-04-06 18:42 | Discharge Summary ---
Date of Service April 06, 2021 Admission HPI Per Admitting Provider This is a 35-year-old female who has significant past medical history of T2DM, HTN, vitamin D deficiency, alcoholism, depression with anxiety, ADHD, tobacco abuse who presents to ED secondary to ill feeling x5 days. Her symptoms started on where she generally felt unwell. She was scheduled for a dental implant that day and opted to proceed with implant due to waiting a year and a half for it. On she developed general upper respiratory-like symptoms including stuffy nose, postnasal drip, sore throat and mild cough. Symptoms progressed to nausea, vomiting and abdominal pain. She has been unable to eat much over the last 5 days. She has been pushing water approximately 6 to 816 ounce bottles a day. She is overall felt feverish and chilled but no documented temperature. She denies any lightheadedness, dizziness, syncope, chest pain, hemoptysis, hematemesis, melena, hematochezia, diarrhea, dysuria, increased urgency or frequency with urination. She admits to shortness of breath with exertion but denies shortness of breath at rest. She also complains of constipation and her last bowel movement was, "I cannot remember." She relates this to not eating much. She states even when feeling well she is not an eater. She has two children who are school-age and recently had to quarantine secondary to their teacher testing positive for Covid. They also have upper respiratory-like symptoms. Patient admits to history of alcoholism for which she quit drinking alcohol for the past 13 months until 1 week ago. She had a relapse where she drank Monday and Monday and she states her last alcoholic beverage was on Monday. Admission Exam Per Admitting Provider GENERAL: Alert and oriented x3. NAD, on RA. HEENT: No pallor, no icterus. Pupils equal, round and reactive to light. Oral mucosa moist. NECK: No JVD, no neck masses. HEART: S1 and S2 heard. Regular rate and rhythm. No murmur, no gallop. RESPIRATORY SYSTEM: Normal AP diameter. No accessory muscle use. No wheezing, no crackles. ABDOMEN: Soft, bowel sounds present, nontender, no distention. CENTRAL NERVOUS SYSTEM: Alert and oriented x3. No facial droop. Speech is clear. Obeys simple commands. Moves extremities. EXTREMITIES: No edema, no erythema seen. Principal Diagnosis Relapse of alcohol abuse Starvation ketosis Chronic mild hyponatremia Discharge Exam GENERAL: Alert and oriented x3. NAD, on RA. HEENT: No pallor, no icterus. Pupils equal, round and reactive to light. Oral mucosa moist. NECK: No JVD, no neck masses. HEART: S1 and S2 heard. Regular rate and rhythm. No murmur, no gallop. RESPIRATORY SYSTEM: Normal AP diameter. No accessory muscle use. No wheezing, no crackles. ABDOMEN: Soft, bowel sounds present, nontender, no distention. CENTRAL NERVOUS SYSTEM: Alert and oriented x3. No facial droop. Speech is clear. Obeys simple commands. Moves extremities. EXTREMITIES: No edema, no erythema seen. Discharge Data Allergies Allergy/AdvReac Type Severity Reaction Status Date / Time bee venom protein (honey bee) Allergy Unknown ANAPHYLAXIS Verified 04/05/21 14:24 Consultations 04/05/21 16:33 ED Decision to Admit Stat Ordered Studies 04/05/21 12:33 CT angio chest PE protocol Stat Hospital Course (1) Viral syndrome: (2) Hyponatremia: (3) Increased anion gap metabolic acidosis: (4) Alcohol abuse: (5) Transaminitis: (6) HTN (hypertension): (7) DMII (diabetes mellitus, type 2): (8) Major depressive disorder: 35-year-old female with PMH of significant psychiatric history, noncompliance to medications, T2DM, alcohol abuse [sober for 13 months, recently relapsed a week ago] HTN, vitamin D deficiency, alcoholism, depression with anxiety, ADHD, tobacco abuse who presents to ED secondary to ill feeling x5 days. Per patient she was feeling ill since last week which was worsening since last 5 days. Also she states that she has not been taking food or taking very little food since last 1 week. She also states that she tries keto diet to control her diabetes without insulin or diabetic medication. Patient was managed for hyponatremia with normal saline, resolved to baseline at the time of discharge. Folic acid/thiamine were replaced. Electrolytes were replaced. See also had starvation ketosis at presentation. Patient felt better today with closure of anion gap on the day of discharge. Patient is eating okay at the time of discharge. Patient stated that she is ready to go home. Patient has been advised on maintaining abstinence which she already started since last 3 days. Patient advised to follow-up with her PCP within a week and get the blood test done in 3 to 4 days. Also patient encouraged to establish a psychiatric doctor. Patient advised to take potassium rich diet. Following instructions were communicated with the patient at the time of discharge: Get your BMP done in 3 to 4 days. Follow-up with your PCP within a week's time Maintain regular follow-up with the psychiatry doctor if you have any. Continue maintaining abstinence and eat food regularly to avoid starvation ketosis. Take potassium rich foods as explained at the bedside Total Time Total Time Spent Total Time Spent (In Minutes): 40 Discharge Plan Discharge Items Patient Disposition: Home - Self-Care Reason For Visit: HYPONATREMIA Discharge Diagnosis: Starvation ketosis Hypokalemia Chronic mild hyponatremia Alcohol abuse relapse DM type II Major depressive disorder Condition on Discharge: Good Activity: Resume your previous activity Non-emergency contact: Primary Care Provider Call non-emergency contact if: you have any medication questions and your symptoms worsen Follow-up/Referrals: Harinder Nathan DO [Primary Care Provider] - (Date & Time 04/12/2021 11:00 AM Provider Harinder Nathan DO Department [facility] ) Diet: Carb Consistent or DM2 Addtl Attending Provider Instructions: Get your BMP done in 3 to 4 days. Follow-up with your PCP within a week's time Maintain regular follow-up with the psychiatry doctor if you have any. Continue maintaining abstinence and eat food regularly to avoid starvation ketosis. Take potassium rich foods as explained at the bedside . Pending Studies at Discharge: No Stand-Alone Forms: My [facility] [employer], Smoking Cessation Medications and DC Order Prescriptions: New thiamine HCl (vitamin B1) [Vitamin B-1] 100 mg Tablet 100 mg PO QAM 30 Days Qty: 30 RF: 0 Continued albuterol sulfate [Ventolin HFA] 90 mcg/actuation Hfa Aerosol Inhaler 1 puff INHALATION Q6H PRN (Reason: SOB) RF: 0 insulin lispro 100 unit/mL insulin pen 0 unit subcut AC RF: 0 Lantus Solostar U-100 Insulin 100 unit/mL (3 mL) insulin pen 0 unit subcut DIRECTED RF: 0 nifedipine [Adalat CC] 30 mg Tablet Extended Release 30 mg PO DAILY Qty: 30 RF: 2 montelukast 10 mg Tablet 10 mg PO HS RF: 0 folic acid 1 mg Tablet 1 mg PO QAM Qty: 30 RF: 0 oxycodone 5 mg Tablet 5 mg PO Q6H PRN (Reason: pain) Qty: 20 RF: 0 Viibryd 20 mg tablet 20 mg PO DAILY RF: 0 hydroxyzine HCl 50 mg tablet 50 mg PO BID PRN (Reason: Anxiety) RF: 0 cyclobenzaprine 5 mg tablet 5 mg PO BID PRN (Reason: Muscle Spasm) RF: 0 cetirizine 10 mg tablet 10 mg PO DAILY RF: 0 ferrous sulfate 325 mg (65 mg iron) Tablet,Delayed Release (Dr/Ec) 325 mg PO DAILY RF: 0 epinephrine [EpiPen 2-Jason] 0.3 mg/0.3 mL Auto-Injector 0.3 mg IM Q3H PRN (Reason: Allergic Reaction) RF: 0 cholecalciferol (vitamin D3) 400 unit Tablet,Chewable 400 unit PO DAILY RF: 0 Discharge Orders: Discharge Order (Routine); Ordered 04/06/21 Ordered By: Kamille Hansen Admission Data Admit Date/Time: 04/05/21 17:03 Attending Provider: Kamille Hansen Admit Provider: Kamille Hansen Primary Care Provider: Harinder Nathan Other Providers: Kamille Hansen Other Interventions: Discharge Summary Assessment (RN) Last Done: 04/06/21 13:03
--- NOTE | 2021-04-07 15:44 | Electrocardiogram Report ---
Test Reason : Blood Pressure : / mmHG Vent. Rate : 114 BPM Atrial Rate : 114 BPM P-R Int : 118 ms QRS Dur : 078 ms QT Int : 358 ms P-R-T Axes : 067 029 027 degrees QTc Int : 493 ms Sinus tachycardia Otherwise normal ECG When compared with ECG of 21-AUG-2019 07:37, Nonspecific T wave abnormality no longer evident in Lateral leads Confirmed by Flex Kasper ([id number]) on 04/07/2021 3:43:47 PM Referred By: REFERRED SELF Confirmed By:Flex Kasper
== END 2021-04-06 14:34 | disposition home or self-care (01) | DRG 641 ==
LOC: ED 11:11 → 2N 17:03
DX: E88.89 Other specified metabolic disorders; E87.1 Hypo-osmolality and hyponatremia; B34.9 Viral infection, unspecified; I10 Essential (primary) hypertension; E55.9 Vitamin D deficiency, unspecified; R74.01 Elevation of levels of liver transaminase levels; F17.210 Nicotine dependence, cigarettes, uncomplicated; E11.9 Type 2 diabetes mellitus without complications; F32.9 Major depressive disorder, single episode, unspecified; F10.10 Alcohol abuse, uncomplicated; Z79.4 Long term (current) use of insulin; E87.2 Acidosis; E86.0 Dehydration; Z91.14 Patient's other noncompliance with medication regimen

== ENCOUNTER 2021-08-03 12:26 | Inpatient (IN) ==
[2021-08-03 14:03] LABS: Basophils # (auto) 0.04 K/uL (0-0.2); Basophils % (auto) 0.4 %; Eosinophils # (auto) 0.14 K/uL (0-0.5); Eosinophils % (auto) 1.4 %; Hematocrit (blood only) 36.7 % (37-47); Hemoglobin 12.6 g/dL (12.0-16.0); Immature Granulocytes # (auto) 0.17 K/uL (0.00-0.02); Immature Granulocytes % (auto) 1.7 %; Lymphocytes # (auto) 1.62 K/uL (1.2-3.4); Lymphocytes % (auto) 16.3 %; Mean Corpuscular Hemoglobin 31.9 pg (25-34); Mean Corpuscular Hgb Conc 34.3 g/dL (32-36); Mean Corpuscular Volume 92.9 fL (80-100); Monocytes # (auto) 1.34 K/uL (0.11-0.59); Monocytes % (auto) 13.5 %; Neutrophils # (auto) 6.64 K/uL (1.4-6.5); Neutrophils % (auto) 66.7 %; Platelet Count 358 K/uL (130-400); RDW Coefficient of Variation 11.9 % (11.5-14.5); RDW Standard Deviation 40.4 fL (36.4-46.3); Red Blood Count 3.95 M/uL (4.2-5.4); White Blood Count 9.95 K/uL (4.8-10.8)
[2021-08-03 14:14] LABS: Appearance Urine Slightly Cloudy (Clear); Bilirubin Urine Negative (Negative); Blood Urine 1+ (Negative); Color Urine Yellow; Glucose Urine UA 2+ (Negative); Ketones Urine 1+ (Negative); Leukocyte Esterase Urine Negative (Negative); Nitrite Urine Negative (Negative); Protein Urine 2+ (Negative); Specific Gravity Urine 1.015 (1.000-1.030); Urobilinogen Urine Negative (Negative)
[2021-08-03 14:26] LABS: Acetaminophen < 2 ug/ml (10-30); Salicylate < 1.7 mg/dl (2.8-20)
[2021-08-03 14:36] LABS: Amphetamines+Metham, Urine Neg (Neg); Barbiturates, Urine Neg (Neg); Benzodiazepine, Urine Neg (Neg); Cocaine, Urine Neg (Neg); MDMA (Ecstacy), Urine Neg (Neg); Methadone, Urine Neg (Neg); Opiate, Urine Neg (Neg); Phencyclidine, Urine Neg (Neg)
[2021-08-03 14:38] LABS: Albumin Globulin Ratio 0.5 (0.9-2); Albumin Level 2.5 gm/dl (3.4-5.0); BUN Creatinine Ratio 14.4 (10-20); Bilirubin,Total 0.5 mg/dl (0.2-1); Calcium 9.5 mg/dl (8.5-10.1); Creatinine Clr Calc Pharmacy 78.7 ml/min; Est GFR (African American) 118.6 ml/min; Est GFR (Non-African American) 102.3 ml/min; Globulin 4.9 gm/dl (2.5-4.0); Potassium 2.4 mmol/L (3.5-5.1); Thyroid Stimulating Hormone 0.567 uIu/ml (0.300-4.500); Total Protein 7.4 gm/dl (6.4-8.2)
[2021-08-03 14:40] LABS: Bacteria Urine 1+ (Negative); Epithelial Cell Urine >30 /lpf (0-5); RBC Urine 0-4 /hpf (0-4)
[2021-08-03] MEDS ORDERED: SODIUM CHLORIDE 0.9% 1000ML 1,000 ML IV ONE (14:40)
[2021-08-03] MEDS ORDERED: POTASSIUM CHLORIDE 20 MEQ/15 ML UDC PO STA (14:40)
[2021-08-03] MEDS ORDERED: NovoLIN-R INSULIN PER UNIT CHARGE SC STA (14:43)
[2021-08-03 14:51] LABS: Beta-Hydroxybutyrate 8.37 mg/dl (0.2-2.81)
[2021-08-03] MEDS: POTASSIUM CHLORIDE / WTR 10 MEQ/100 ML PLCT IV SCH ×2 (15:09→17:40)
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
[2021-08-03] MEDS ORDERED: GABAPENTIN 400 MG CAP PO ONE (16:11)
[2021-08-03] MEDS ORDERED: MAGNESIUM SULFATE / D5W 1 GM/100 ML BAG IV ONE (16:11)
[2021-08-03] MEDS ORDERED: PHARMACY GLYCEMIC MGMT CONSULT PRN (16:11)
[2021-08-03] MEDS ORDERED: GABAPENTIN 800MG ALCOHOL WITHDRAWAL LOAD PO ONE (16:11)
[2021-08-03] MEDS ORDERED: SODIUM CHLORIDE 0.9% 1000ML 1,000 ML IV SCH (16:13)
[2021-08-03] MEDS ORDERED: MULTIVITAMIN TAB PO SCH (16:15)
[2021-08-03] MEDS ORDERED: GLUCAGON FOR INJ 1 MG VIAL SQ PRN (16:28)
[2021-08-03] MEDS ORDERED: CARBOHYDRATES FOR HYPOGLYCEMIA PO PRN (16:28)
[2021-08-03] MEDS ORDERED: ONDANSETRON INJ 2 MG/ML 2 ML VIAL IV PRN (16:28)
[2021-08-03] MEDS ORDERED: GLUCOSE 10 TABS/TUBE PO PRN (16:28)
[2021-08-03] MEDS ORDERED: DEXTROSE 50% 50 ML SYRINGE IV PRN (16:28)
[2021-08-03] MEDS ORDERED: GLUCOSE 40% GEL 15 GM TUBE PO PRN (16:28)
[2021-08-03] MEDS ORDERED: ACETAMINOPHEN 325 MG TAB PO PRN (16:28)
--- NOTE | 2021-08-03 16:40 | Emergency Department Note ---
Impression & Plan Acute hypokalemia, Hallucinations, Marijuana dependence, Insulin dependent diabetes mellitus, Acute hyponatremia ED Provider Note CHIEF COMPLAINT: hallucinations, brought in by police HISTORY OF PRESENT ILLNESS: This 35 yo female patient presents to the emergency department with complaints hallucinations. Patient was brought in by police for mental health evaluation. She is she has been encouraged by her mother to seek mental health treatment for which she also would like. She believes that her mother staged a democrat yesterday with her friends and family to convince her to seek help. She believes that several people were hiding in a car. She mentions something about an visible tape and trying to hide from her. "They did not realize that I could still see the car but just not the people inside the car. 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 She does have 2 children but they primarily live with their father. The patient states that yesterday she saw her "baby daddy" and his new girlfriend, who also happens to be her best friend. The patient realized that they had a 9-month-old baby together. She states she feels betrayed and the new girlfriend has said some very hurtful things about the patient to her children. The patient states somebody at work is trying to take her job. She states people at work were talking about her money and her job "right in front" of her. She states she has not been eating or sleeping very well lately. She is an insulin-dependent diabetic and does not think she has been doing great job taking her insulin regularly. She denies any recent fevers, chills, chest pain, shortness of breath, vomiting or diarrhea. Patient admits to alcohol and marijuana use but denies any other substances. REVIEW OF SYSTEMS: A review of systems was performed with positives and pertinent negatives listed in the history of present illness. 10 systems were reviewed and are otherwise negative. ALLERGIES: see below MEDICATIONS: see below PMH: see below SOCIAL HISTORY: see below DDx: Mood disorder, infection, hypoglycemia, electrolyte abnormalities, cardiac sources, intracerebral event, toxicologic, trauma, neurologic, as well as other pathologies. PHYSICAL EXAM: Vital signs reviewed. General: Well-appearing 35-year-old female in no significant distress. HEENT: No scleral icterus, PERRLA, neck supple. Atraumatic. Cardiovascular: Regular rate and rhythm, no extra sounds. Pulmonary: Clear to auscultation bilaterally, normal work of breathing. Abdomen: Soft, nontender, nondistended, positive bowel sounds. Musculoskeletal: Atraumatic, no peripheral edema. Neurologic: Patient awake alert and oriented x 3, speech is clear Psych: Negative SI, negative HI Skin: Warm, dry, no rash EMERGENCY DEPARTMENT COURSE/MDM: This patient was evaluated and appeared to be in no significant distress. IV access to do laboratory work was drawn. Patient was hydrated with normal saline solution. Laboratory work reveals a marked hypokalemia, hyponatremia and hyperglycemia. Saline lock was placed and the patient was hydrated with normal saline solution, given 10 units of IV regular insulin for blood glucose of 390 and 10 mEq of IV potassium in addition to 40 mEq of p.o. potassium for potassium of 2.4. Patient was reevaluated and agreeable with medical admission and psychiatric consultation. Case was discussed with the hospitalist who will evaluate the patient for further management. MONITORING: An order for cardiac monitoring was placed and the patient is noted to be in a NSR at 95] beats per minute. RADIOLOGY: See below EKG: Normal sinus rhythm at 88 bpm. 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 No PVC, no PAC. No evidence of acute process. No change from 04-05-21 DISPOSITION:admit Past Med/Surg History Medical History (Updated 08/05/21 @ 13:54 by Leola Alves MD) Anxiety H/O Asthma Cardiac murmur CONGENITAL -- BENIGN. 10/09/15 echo: The examination is adequate to evaluate the referral indication. The qualitative LV ejection fraction is 60-64% (normal). The left ventricular diastolic function is normal. No significant valvular disease is present. Depression H/O Diabetes GERD (gastroesophageal reflux disease) R/T Gestational diabetes Scoliosis MINOR Surgical History History of adenoidectomy History of section x 2 History of tonsillectomy Family History Other Adopted Social History Smoking Status: Current every day smoker Tobacco Type: Cigarettes Cigarettes Per Day: 1-2; Second Hand Exposure: Yes; Do You Dip or Chew Tobacco: No; Tobacco Cessation Education Requested by Patient: No Hx Alcohol Use: Yes Alcohol type: wine Hx Substance Use: Yes Prescribed Medications: Marijuana Last Used Substance: Hours (ago) Last Used Substance Other:: Last used this AM Preferred Language: Palauan 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: Effective Gum Puller Required: No Beliefs That Will Affect Care: None Current Living Situation: Family Current Living Situation Comment: lives w/ kids 2 and 5 Other Information That Helps Us Care for You: No Feels Safe at Home: Hesitant to Answer Assistive Devices: None Allergies Allergies Allergy/AdvReac Type Severity Reaction Status Date / Time bee venom protein (honey bee) Allergy Unknown ANAPHYLAXIS Verified 04/05/21 14:24 Home Meds Home Medications Medication Instructions Recorded Confirmed insulin glargine 100 unit/mL (3 10 unit SUBCUT DIRECTED 10/07/18 08/03/21 mL) subcutaneous pen (Lantus Solostar U-100 Insulin) insulin lispro 100 unit/mL 5 unit SUBCUT AC 10/07/18 08/03/21 subcutaneous pen montelukast 10 mg tablet 10 mg PO HS 05/01/19 08/03/21 cetirizine 10 mg tablet 10 mg PO DAILY 08/19/19 08/03/21 cyclobenzaprine 5 mg tablet 5 mg PO BID PRN 08/19/19 08/03/21 epinephrine 0.3 mg/0.3 mL 0.3 mg IM Q3H PRN 08/19/19 08/03/21 injection, auto-injector (EpiPen 2-Jason) ferrous sulfate 325 mg (65 mg 325 mg PO DAILY 08/19/19 08/03/21 iron) tablet,delayed release hydroxyzine HCl 50 mg tablet 50 mg PO BID PRN 08/19/19 08/03/21 Virt-Phos 250 Neutral 2 tab PO QID 08/03/21 08/03/21 buspirone 5 mg tablet 5 mg PO BID PRN 08/03/21 08/03/21 cholecalciferol (vitamin D3) 50 50 mcg PO DAILY 08/03/21 08/03/21 mcg (2,000 unit) capsule fluticasone 250 mcg-salmeterol 50 1 inh INHALATION BID 08/03/21 08/03/21 mcg/dose blistr powdr for inhalation levocetirizine 5 mg tablet 5 mg PO HS 08/03/21 08/03/21 vilazodone 40 mg tablet (Viibryd) 40 mg PO DAILY 08/03/21 08/03/21 Results & Data (ED) Vital Signs Vital Signs - 24 hr 08/03/21 12:30 08/03/21 14:27 08/03/21 15:07 Temperature 36.8 C Temperature Source Temporal Artery Scan Pulse Rate 114 H 96 H Pulse Rate [Apical] 95 H Pulse Rate from SpO2 Sensor 102 H Pulse Rhythm Regular Pulse Strength Normal Respiratory Rate Respiratory Effort / Characteristics Non-Labored Spontaneous Respiratory Depth Normal Respiratory Pattern Regular Blood Pressure 146/94 H Blood Pressure [Right Arm] 142/96 H Blood Pressure Mean 111 Blood Pressure Mean [Right Arm] 111 Blood Pressure Position Sitting Blood Pressure Position [Right Arm] Lying Pulse Oximetry 96 98 99 Oxygen Delivery Method Room Air Room Air Sepsis Recent Fever Within 48 Hours No Sepsis New/Unexplained Change in Mental Status No Sepsis Action Taken by Nursing No Action Required Home Medications Current Medication List: was personally reviewed by me Laboratory Data Attestation: I reviewed the patient's lab results. Result diagrams: 08/05/21 05:58 08/05/21 16:10 Lab Results 08/03/21 08/03/21 08/03/21 Range/Units 12:48 13:52 13:52 WBC 9.95 (4.8-10.8) K/uL RBC 3.95 L (4.2-5.4) M/uL Hgb 12.6 (12.0-16.0) g/dL Hct 36.7 L (37-47) % MCV 92.9 (80-100) fL MCH 31.9 (25-34) pg MCHC 34.3 (32-36) g/dL RDW Std Deviation 40.4 (36.4-46.3) fL RDW Coeff of Arnold 11.9 (11.5-14.5) % Plt Count 358 (130-400) K/uL MPV 11.0 H (7.4-10.4) fL Immature Gran % (Auto) 1.7 % Neut % (Auto) 66.7 % Lymph % (Auto) 16.3 % Cocke % (Auto) 13.5 % Eos % (Auto) 1.4 % Baso % (Auto) 0.4 % Neut # (Auto) 6.64 H (1.4-6.5) K/uL Lymph # (Auto) 1.62 (1.2-3.4) K/uL Cocke # (Auto) 1.34 H (0.11-0.59) K/uL Eos # (Auto) 0.14 (0-0.5) K/uL Baso # (Auto) 0.04 (0-0.2) K/uL Immature Gran # (Auto) 0.17 H (0.00-0.02) K/uL Sodium 129 L (136-145) mmol/L Potassium 2.4 L* (3.5-5.1) mmol/L Chloride 92 L (98-107) mmol/L Carbon Dioxide 26 (21-32) mmol/L Anion Gap 10.0 (3-11) BUN 11 (7-18) mg/dl Creatinine 0.76 (0.6-1.2) mg/dl Est Cr Clr Drug Dosing 78.7 ml/min Est GFR ( Amer) 118.6 ml/min Est GFR (Non-Af Amer) 102.3 ml/min BUN/Creatinine Ratio 14.4 (10-20) Glucose 390 H* (70-99) mg/dl Calcium 9.5 (8.5-10.1) mg/dl Total Bilirubin 0.5 (0.2-1) mg/dl AST 24 (15-37) U/L ALT 20 (12-78) Alkaline Phosphatase 69 (45-117) U/L Total Protein 7.4 (6.4-8.2) gm/dl Albumin 2.5 L (3.4-5.0) gm/dl Globulin 4.9 H (2.5-4.0) gm/dl Albumin/Globulin Ratio 0.5 L (0.9-2) Beta-Hydroxybutyric Acd 8.37 H (0.2-2.81) mg/dl TSH 0.567 (0.300-4.500) uIu/ml Urine Color Urine Appearance (Clear) Urine pH (4.5-7.5) Ur Specific Mcclusky (1.000-1.030) Urine Protein (Negative) Urine Glucose (UA) (Negative) Urine Ketones (Negative) Urine Blood (Negative) Urine Nitrite (Negative) Urine Bilirubin (Negative) Urine Urobilinogen (Negative) Ur Leukocyte Esterase (Negative) Urine RBC (0-4) /hpf Urine WBC (0-5) /hpf Ur Epithelial Cells (0-5) /lpf Urine Bacteria (Negative) POC Ur Test (NEG) Salicylates (2.8-20) mg/dl Urine Opiates Screen (Neg) Ur Methadone, Qual (Neg) Acetaminophen (10-30) ug/ml Urine Barbiturates (Neg) Ur Phencyclidine (PCP) (Neg) U Amphetamin/Meth Scrn (Neg) MDMA (Ecstasy) Screen (Neg) U Benzodiazepines Scrn (Neg) Ur Cocaine Metabolite (Neg) U Marijuana (THC) Screen (Neg) Ethyl Alcohol mg/dL (0-3) mg/dl SARS-CoV-2, RNA, NAAT NEGATIVE (NEGATIVE) 08/03/21 08/03/21 08/03/21 Range/Units 13:52 13:52 14:00 WBC (4.8-10.8) K/uL RBC (4.2-5.4) M/uL Hgb (12.0-16.0) g/dL Hct (37-47) % MCV (80-100) fL MCH (25-34) pg MCHC (32-36) g/dL RDW Std Deviation (36.4-46.3) fL RDW Coeff of Arnold (11.5-14.5) % Plt Count (130-400) K/uL MPV (7.4-10.4) fL Immature Gran % (Auto) % Neut % (Auto) % Lymph % (Auto) % Cocke % (Auto) % Eos % (Auto) % Baso % (Auto) % Neut # (Auto) (1.4-6.5) K/uL Lymph # (Auto) (1.2-3.4) K/uL Cocke # (Auto) (0.11-0.59) K/uL Eos # (Auto) (0-0.5) K/uL Baso # (Auto) (0-0.2) K/uL Immature Gran # (Auto) (0.00-0.02) K/uL Sodium (136-145) mmol/L Potassium (3.5-5.1) mmol/L Chloride (98-107) mmol/L Carbon Dioxide (21-32) mmol/L Anion Gap (3-11) BUN (7-18) mg/dl Creatinine (0.6-1.2) mg/dl Est Cr Clr Drug Dosing ml/min Est GFR ( Amer) ml/min Est GFR (Non-Af Amer) ml/min BUN/Creatinine Ratio (10-20) Glucose (70-99) mg/dl Calcium (8.5-10.1) mg/dl Total Bilirubin (0.2-1) mg/dl AST (15-37) U/L ALT (12-78) Alkaline Phosphatase (45-117) U/L Total Protein (6.4-8.2) gm/dl Albumin (3.4-5.0) gm/dl Globulin (2.5-4.0) gm/dl Albumin/Globulin Ratio (0.9-2) Beta-Hydroxybutyric Acd (0.2-2.81) mg/dl TSH (0.300-4.500) uIu/ml Urine Color Yellow Urine Appearance Slightly Cloudy (Clear) Urine pH 7.0 (4.5-7.5) Ur Specific Mcclusky 1.015 (1.000-1.030) Urine Protein 2+ H (Negative) Urine Glucose (UA) 2+ H (Negative) Urine Ketones 1+ H (Negative) Urine Blood 1+ H (Negative) Urine Nitrite Negative (Negative) Urine Bilirubin Negative (Negative) Urine Urobilinogen Negative (Negative) Ur Leukocyte Esterase Negative (Negative) Urine RBC 0-4 (0-4) /hpf Urine WBC 10-30 H (0-5) /hpf Ur Epithelial Cells >30 H (0-5) /lpf Urine Bacteria 1+ H (Negative) POC Ur Test (NEG) Salicylates < 1.7 L (2.8-20) mg/dl Urine Opiates Screen (Neg) Ur Methadone, Qual (Neg) Acetaminophen < 2 L (10-30) ug/ml Urine Barbiturates (Neg) Ur Phencyclidine (PCP) (Neg) U Amphetamin/Meth Scrn (Neg) MDMA (Ecstasy) Screen (Neg) U Benzodiazepines Scrn (Neg) Ur Cocaine Metabolite (Neg) U Marijuana (THC) Screen (Neg) Ethyl Alcohol mg/dL < 3.0 (0-3) mg/dl SARS-CoV-2, RNA, NAAT (NEGATIVE) 08/03/21 08/03/21 Range/Units 14:00 14:03 WBC (4.8-10.8) K/uL RBC (4.2-5.4) M/uL Hgb (12.0-16.0) g/dL Hct (37-47) % MCV (80-100) fL MCH (25-34) pg MCHC (32-36) g/dL RDW Std Deviation (36.4-46.3) fL RDW Coeff of Arnold (11.5-14.5) % Plt Count (130-400) K/uL MPV (7.4-10.4) fL Immature Gran % (Auto) % Neut % (Auto) % Lymph % (Auto) % Cocke % (Auto) % Eos % (Auto) % Baso % (Auto) % Neut # (Auto) (1.4-6.5) K/uL Lymph # (Auto) (1.2-3.4) K/uL Cocke # (Auto) (0.11-0.59) K/uL Eos # (Auto) (0-0.5) K/uL Baso # (Auto) (0-0.2) K/uL Immature Gran # (Auto) (0.00-0.02) K/uL Sodium (136-145) mmol/L Potassium (3.5-5.1) mmol/L Chloride (98-107) mmol/L Carbon Dioxide (21-32) mmol/L Anion Gap (3-11) BUN (7-18) mg/dl Creatinine (0.6-1.2) mg/dl Est Cr Clr Drug Dosing ml/min Est GFR ( Amer) ml/min Est GFR (Non-Af Amer) ml/min BUN/Creatinine Ratio (10-20) Glucose (70-99) mg/dl Calcium (8.5-10.1) mg/dl Total Bilirubin (0.2-1) mg/dl AST (15-37) U/L ALT (12-78) Alkaline Phosphatase (45-117) U/L Total Protein (6.4-8.2) gm/dl Albumin (3.4-5.0) gm/dl Globulin (2.5-4.0) gm/dl Albumin/Globulin Ratio (0.9-2) Beta-Hydroxybutyric Acd (0.2-2.81) mg/dl TSH (0.300-4.500) uIu/ml Urine Color Urine Appearance (Clear) Urine pH (4.5-7.5) Ur Specific Mcclusky (1.000-1.030) Urine Protein (Negative) Urine Glucose (UA) (Negative) Urine Ketones (Negative) Urine Blood (Negative) Urine Nitrite (Negative) Urine Bilirubin (Negative) Urine Urobilinogen (Negative) Ur Leukocyte Esterase (Negative) Urine RBC (0-4) /hpf Urine WBC (0-5) /hpf Ur Epithelial Cells (0-5) /lpf Urine Bacteria (Negative) POC Ur Test NEG (NEG) Salicylates (2.8-20) mg/dl Urine Opiates Screen Neg (Neg) Ur Methadone, Qual Neg (Neg) Acetaminophen (10-30) ug/ml Urine Barbiturates Neg (Neg) Ur Phencyclidine (PCP) Neg (Neg) U Amphetamin/Meth Scrn Neg (Neg) MDMA (Ecstasy) Screen Neg (Neg) U Benzodiazepines Scrn Neg (Neg) Ur Cocaine Metabolite Neg (Neg) U Marijuana (THC) Screen Pos H (Neg) Ethyl Alcohol mg/dL (0-3) mg/dl SARS-CoV-2, RNA, NAAT (NEGATIVE) Administered Medications Buspirone HCl (Buspirone 5 Mg Tab) 5 mg PO BID PRN PRN Reason: Anxiety Stop: 09/02/21 18:00 Last Admin: 08/04/21 12:05 Dose: 5 mg Documented by: [id number] Cetirizine HCl (Cetirizine Hcl 10 Mg Tablet) 10 mg PO DAILY [facility] Stop: 09/03/21 08:59 Last Admin: 08/05/21 09:25 Dose: 10 mg Documented by: [id number] Admin: 08/04/21 12:05 Dose: 10 mg Documented by: [id number] Ferrous Sulfate (Ferrous Sulfate 325 Mg Tab) 325 mg PO DAILY [facility] Stop: 09/03/21 08:59 Last Admin: 08/05/21 09:24 Dose: 325 mg Documented by: [id number] Admin: 08/04/21 12:04 Dose: 325 mg Documented by: [id number] Fluticasone/Vilanterol (Fluticasone/Vilanterol 200/25mcg 14 Puffs/Inhaler) 1 puffs INH DAILY [facility]; Protocol Stop: 09/03/21 08:59 Last Admin: 08/05/21 09:24 Dose: 1 puffs Documented by: [id number] Admin: 08/04/21 12:04 Dose: 1 puffs Documented by: [id number] Gabapentin (Gabapentin 400 Mg Cap) 400 mg PO Q12H [facility] Stop: 08/06/21 06:46 Last Admin: 08/05/21 18:56 Dose: 400 mg Documented by: [id number] Ceftriaxone Sodium 1,000 mg/ (Dextrose) 50 mls @ 100 mls/hr IV Q24H [facility]; Protocol Stop: 08/08/21 16:14 Last Infusion: 08/05/21 17:21 Dose: 0 mls/hr Documented by: [id number] Admin: 08/05/21 16:45 Dose: 100 mls/hr Documented by: [id number] Infusion: 08/04/21 18:06 Dose: 0 mls/hr Documented by: [id number] Admin: 08/04/21 16:37 Dose: 100 mls/hr Documented by: [id number] Infusion: 08/03/21 17:27 Dose: 0 mls/hr Documented by: [id number] Admin: 08/03/21 17:07 Dose: 100 mls/hr Documented by: [id number] Lorazepam (Ativan) 1 mg in 2 mls @ 2 mls/min IV UD PRN; Protocol PRN Reason: EtOH Withdrawl AWSS Score 6,7 Stop: 09/03/21 04:12 Last Admin: 08/04/21 13:54 Dose: 2 mls/min Documented by: [id number] Thiamine HCl 100 mg/ Syringe 10 mls @ 2 mls/min IV QAM [facility] Stop: 09/03/21 15:29 Last Admin: 08/05/21 09:24 Dose: 2 mls/min Documented by: [id number] Admin: 08/04/21 16:49 Dose: 2 mls/min Documented by: [id number] Folic Acid 1 mg/ Syringe 10 mls @ 5 mls/min IV QAM [facility] Stop: 09/04/21 08:59 Last Admin: 08/05/21 09:24 Dose: 5 mls/min Documented by: [id number] Insulin Aspart (Insulin Aspart Per Unit) 0 units SC ACHS [facility] Stop: 09/02/21 16:29 Last Admin: 08/05/21 20:55 Dose: Not Given Documented by: [id number] Admin: 08/05/21 17:30 Dose: 3 units Documented by: [id number] Cosigned by: [id number] Admin: 08/05/21 12:41 Dose: Not Given Documented by: [id number] Cosigned by: [id number] Admin: 08/05/21 09:40 Dose: 6 units Documented by: [id number] Cosigned by: [id number] Admin: 08/04/21 20:28 Dose: Not Given Documented by: [id number] Cosigned by: [id number] Admin: 08/04/21 17:25 Dose: 3 units Documented by: [id number] Cosigned by: [id number] Admin: 08/04/21 12:10 Dose: 3 units Documented by: [id number] Cosigned by: [id number] Admin: 08/04/21 10:25 Dose: Not Given Documented by: [id number] Admin: 08/03/21 19:28 Dose: Not Given Documented by: [id number] Cosigned by: [id number] Admin: 08/03/21 16:42 Dose: Not Given Documented by: [id number] Cosigned by: [id number] Insulin Glargine (Insulin Glargine Solostar 100 Units/Ml 3 Ml Pen) 5 units SC QAM [facility] Stop: 09/03/21 08:59 Last Admin: 08/04/21 10:21 Dose: Not Given Documented by: [id number] Miscellaneous (Viibryd: Order Awaiting Action) 1 ea N/A QS [facility] Stop: 09/03/21 00:00 Last Admin: 08/05/21 23:44 Dose: Not Given Documented by: [id number] Admin: 08/05/21 15:49 Dose: Not Given Documented by: [id number] Admin: 08/05/21 09:26 Dose: Not Given Documented by: [id number] Admin: 08/04/21 23:01 Dose: Not Given Documented by: [id number] Admin: 08/04/21 16:30 Dose: Not Given Documented by: [id number] Admin: 08/04/21 09:28 Dose: Not Given Documented by: [id number] Admin: 08/04/21 00:06 Dose: Not Given Documented by: [id number] Montelukast Sodium (Montelukast Sodium 10 Mg Tablet) 10 mg PO HS [facility] Stop: 09/02/21 20:59 Last Admin: 08/05/21 20:55 Dose: 10 mg Documented by: [id number] Admin: 08/04/21 21:17 Dose: 10 mg Documented by: [id number] Admin: 08/03/21 23:17 Dose: 10 mg Documented by: [id number] Pantoprazole Sodium (Pantoprazole 40 Mg Tab) 40 mg PO QAM [facility] Stop: 09/04/21 17:44 Last Admin: 08/05/21 18:56 Dose: 40 mg Documented by: [id number] Potassium Phosphate (Pot Phosphate Monobasic W/ Sod Tab) 2 tab PO QID [facility] Stop: 09/02/21 20:59 Last Admin: 08/05/21 20:55 Dose: 2 tab Documented by: [id number] Admin: 08/05/21 16:46 Dose: 2 tab Documented by: [id number] Admin: 08/05/21 13:43 Dose: 2 tab Documented by: [id number] Admin: 08/05/21 09:23 Dose: 2 tab Documented by: [id number] Admin: 08/04/21 21:17 Dose: 2 tab Documented by: [id number] Admin: 08/04/21 16:36 Dose: 2 tab Documented by: [id number] Admin: 08/04/21 12:04 Dose: 2 tab Documented by: [id number] Admin: 08/04/21 09:30 Dose: Not Given Documented by: [id number] Admin: 08/03/21 23:17 Dose: 2 tab Documented by: [id number] Prenat Multivit/Broach Trouble Shooter/Iron/Folic Ac ( Vitamin 1 Tab) 1 tab PO DAILY [facility] Stop: 09/03/21 08:59 Last Admin: 08/05/21 09:24 Dose: 1 tab Documented by: [id number] Admin: 08/04/21 12:05 Dose: 1 tab Documented by: [id number] Vitamin D (Cholecalciferol 1,000 Units 25 Mcg Tab) 2,000 units PO DAILY [facility] Stop: 09/03/21 08:59 Last Admin: 08/05/21 09:25 Dose: 2,000 units Documented by: [id number] Admin: 08/04/21 12:04 Dose: 2,000 units Documented by: [id number] Discontinued Medications Cetirizine HCl (Cetirizine Hcl 10 Mg Tablet) 5 mg PO HS [facility] Stop: 09/02/21 20:59 Last Admin: 08/04/21 21:17 Dose: 5 mg Documented by: [id number] Admin: 08/03/21 23:16 Dose: 5 mg Documented by: [id number] Folic Acid (Folic Acid 400 Mcg Tab) 400 mcg PO QAM [facility] Stop: 09/02/21 16:14 Last Admin: 08/04/21 12:06 Dose: 400 mcg Documented by: [id number] Admin: 08/03/21 17:41 Dose: 400 mcg Documented by: [id number] Gabapentin (Gabapentin 800mg Alcohol Withdrawal Load) 1 ea PO ONE ONE; Protocol Stop: 08/03/21 16:12 Last Admin: 08/03/21 17:40 Dose: 1 ea Documented by: [id number] Gabapentin (Gabapentin 400 Mg Cap) 800 mg PO NOW ONE Stop: 08/03/21 16:12 Last Admin: 08/03/21 17:45 Dose: 800 mg Documented by: [id number] Gabapentin (Gabapentin 400 Mg Cap) 400 mg PO Q6H [facility] Stop: 08/04/21 05:46 Last Admin: 08/04/21 07:13 Dose: Not Given Documented by: [id number] Admin: 08/04/21 00:04 Dose: 400 mg Documented by: [id number] Gabapentin (Gabapentin 400 Mg Cap) 400 mg PO Q8H [facility] Stop: 08/05/21 06:46 Last Admin: 08/05/21 05:47 Dose: 400 mg Documented by: [id number] Admin: 08/04/21 21:18 Dose: 400 mg Documented by: [id number] Admin: 08/04/21 12:04 Dose: 400 mg Documented by: [id number] Haloperidol Lactate (Haloperidol Lactate 5 Mg/Ml 1 Ml Vial) 5 mg IM NOW STA Stop: 08/04/21 04:07 Last Admin: 08/04/21 05:05 Dose: Not Given Documented by: [id number] Haloperidol Lactate (Haloperidol Lactate 5 Mg/Ml 1 Ml Vial) Confirm Administered Dose 5 mg .ROUTE .STK-MED ONE Stop: 08/04/21 04:10 Last Admin: 08/04/21 04:35 Dose: Not Given Documented by: [id number] Hydroxyzine HCl (Hydroxyzine Hcl 25 Mg Tab) 50 mg PO BID PRN PRN Reason: Anxiety Stop: 09/02/21 18:00 Last Admin: 08/03/21 23:20 Dose: 50 mg Documented by: [id number] Sodium Chloride (Nss 1000ml) 1,000 mls @ 999 mls/hr IV .Q1H1M ONE Stop: 08/03/21 15:40 Last Infusion: 08/03/21 16:16 Dose: 0 mls/hr Documented by: [id number] Infusion: 08/03/21 15:09 Dose: 0 mls/hr Documented by: [id number] Admin: 08/03/21 15:08 Dose: 999 mls/hr Documented by: [id number] Potassium Chloride (K Fredi / Wtr) 10 meq in 100 mls @ 100 mls/hr IV Q1H [facility]; Protocol Stop: 08/03/21 16:44 Last Infusion: 08/03/21 20:39 Dose: 0 mls/hr Documented by: [id number] Infusion: 08/03/21 19:46 Dose: 0 mls/hr Documented by: [id number] Admin: 08/03/21 17:40 Dose: 50 mls/hr Documented by: [id number] Infusion: 08/03/21 16:31 Dose: 0 mls/hr Documented by: [id number] Infusion: 08/03/21 16:16 Dose: 0 mls/hr Documented by: [id number] Admin: 08/03/21 15:09 Dose: 75 mls/hr Documented by: [id number] Potassium Chloride 40 meq/ (Sodium Chloride) 520 mls @ 125 mls/hr IV .Q4H10M [facility] Stop: 08/04/21 00:30 Last Infusion: 08/04/21 06:29 Dose: 0 mls/hr Documented by: [id number] Admin: 08/04/21 00:04 Dose: 80 mls/hr Documented by: [id number] Infusion: 08/03/21 22:55 Dose: 0 mls/hr Documented by: [id number] Admin: 08/03/21 17:40 Dose: 125 mls/hr Documented by: [id number] Magnesium Sulfate/Dextrose (Magnesium Sulfate / D5w) 1 gm in 100 mls @ 50 mls/hr IV ONE ONE Stop: 08/03/21 18:10 Last Infusion: 08/03/21 21:48 Dose: 0 mls/hr Documented by: [id number] Admin: 08/03/21 19:46 Dose: 50 mls/hr Documented by: [id number] Sodium Chloride (Nss 1000ml) 1,000 mls @ 999 mls/hr IV .Q1H1M [facility] Stop: 08/03/21 17:13 Last Infusion: 08/03/21 17:27 Dose: 0 mls/hr Documented by: [id number] Admin: 08/03/21 16:40 Dose: 999 mls/hr Documented by: [id number] Lorazepam (Ativan) 3 mg in 6 mls @ 4 mls/min IV ONCE PRN; Protocol PRN Reason: EtOH Withdrawl AWSS Score >=10 Stop: 09/03/21 04:12 Last Admin: 08/04/21 05:02 Dose: 4 mls/min Documented by: [id number] Magnesium Sulfate/Dextrose (Magnesium Sulfate / D5w) 1 gm in 100 mls @ 50 mls/hr IV ONE ONE Stop: 08/05/21 14:14 Last Infusion: 08/05/21 15:49 Dose: 0 mls/hr Documented by: [id number] Admin: 08/05/21 13:56 Dose: 50 mls/hr Documented by: [id number] Potassium Chloride (K Fredi / Wtr) 10 meq in 100 mls @ 100 mls/hr IV ONE ONE; Protocol Stop: 08/05/21 13:14 Last Infusion: 08/05/21 14:12 Dose: 0 mls/hr Documented by: [id number] Infusion: 08/05/21 13:42 Dose: 50 mls/hr Documented by: [id number] Admin: 08/05/21 12:36 Dose: 80 mls/hr Documented by: [id number] Insulin Glargine (Insulin Glargine Solostar 100 Units/Ml 3 Ml Pen) 10 units SC ONE ONE Stop: 08/03/21 17:01 Last Admin: 08/03/21 18:19 Dose: Not Given Documented by: [id number] Insulin Human Regular (Novolin-R Insulin Per Unit Charge) 10 units SC NOW STA Stop: 08/03/21 14:44 Last Admin: 08/03/21 15:08 Dose: 10 units Documented by: [id number] Cosigned by: [id number] Lorazepam (Lorazepam 2 Mg/4 Ml Vial) Confirm Administered Dose 2 mg .ROUTE .STK- MED ONE Stop: 08/04/21 04:44 Last Increment: 08/04/21 16:39 Dose: 2 mg Documented by: [id number] Increment: 08/04/21 05:02 Dose: 3 mg Documented by: [id number] Lorazepam (Lorazepam 2 Mg/4 Ml Vial) Confirm Administered Dose 2 mg .ROUTE .STK- MED ONE Stop: 08/04/21 04:46 Last Admin: 08/04/21 05:24 Dose: Not Given Documented by: [id number] Lorazepam (Lorazepam 2 Mg/4 Ml Vial) Confirm Administered Dose 2 mg .ROUTE .STK- MED ONE Stop: 08/04/21 04:47 Last Admin: 08/04/21 05:25 Dose: Not Given Documented by: [id number] Multivitamins (Multivitamin Tab) [facility] [place] Stop: 09/02/21 16:14 Last Admin: 08/03/21 17:41 Dose: 1 tab Documented by: [id number] Potassium Chloride (Potassium Chloride 20 Meq/15 Ml Udc) 40 meq PO NOW STA Stop: 08/03/21 14:41 Last Admin: 08/03/21 15:08 Dose: 40 meq Documented by: [id number] Potassium Chloride (Potassium Chloride Crtab 20 Meq Tabcr) 40 meq PO NOW STA Stop: 08/05/21 08:04 Last Admin: 08/05/21 09:41 Dose: 40 meq Documented by: [id number] Potassium Chloride (Potassium Chloride Crtab 20 Meq Tabcr) 40 meq PO ONE ONE Stop: 08/05/21 14:01 Last Admin: 08/05/21 13:49 Dose: 40 meq Documented by: [id number] Thiamine HCl (Thiamine Hcl 100 Mg Tab) [facility] [place] Stop: 09/02/21 16:59 Last Admin: 08/04/21 12:05 Dose: 100 mg Documented by: [id number] Admin: 08/03/21 18:23 Dose: 100 mg Documented by: [id number] Imaging Data Radiologist's Impression: CT OF THE HEAD WITHOUT CONTRAST CLINICAL HISTORY: Confusion. COMPARISON STUDY: Head CT April 27, 2021. CT DOSE: 638.56 mGycm TECHNIQUE: Helical axial images of the head were obtained without IV contrast. Automated exposure control was utilized for the study. A dose lowering technique was utilized adhering to the principles of ALARA. FINDINGS: No acute intracranial hemorrhage, midline shift or mass effect is present. The ventricular system is unremarkable. The basal cisterns are patent. No extra-axial collections are present. There are no findings to suggest acute dural sinus thrombosis or acute territorial infarct. No significant calvarial abnormalities are present. Visualized portions of the sinuses and mastoid air cells are clear. Gas within the cavernous sinus is likely related to IV insertion. IMPRESSION: No acute intracranial findings. ACT 112: Negative or not required by law. Electronically signed by: Pedro Pablo Moore M.D. 08/03/2021 5:16 PM Dictated:08/03/[id number] Transcribed: 08/03/[id number] Blood Pressure Blood Pressure Findings: Normal blood pressure Blood Pressure Disposition: did not require urgent referral Discharge Plan Visit Data Chief Complaint: Mental Health Evaluation Stated Complaint: [facility] ED Provider: Susan Ryan Discharge Problem: Acute hypokalemia, Hallucinations, Marijuana dependence, Insulin dependent diabetes mellitus, Acute hyponatremia Patient Disposition: Admitted As Inpatient Discharge Instructions Interventions: ED Discharge Assessment Last Done: 08/03/21 20:29
[2021-08-03] MEDS: INSULIN ASPART PER UNIT SC SCH ×2 (16:42→19:28)
[2021-08-03] MEDS ORDERED: INSULIN GLARGINE SOLOSTAR 100 UNITS/ML 3 ML PEN SC ONE (17:00)
[2021-08-03] MEDS: cefTRIAXone SODIUM 1,000 MG in DEXTROSE 5% 50 ML IV SCH (17:07)
--- NOTE | 2021-08-03 17:18 | CT Scan Report ---
CT OF THE HEAD WITHOUT CONTRAST CLINICAL HISTORY: Confusion. COMPARISON STUDY: Head CT April 27, 2021. CT DOSE: 638.56 mGycm TECHNIQUE: Helical axial images of the head were obtained without IV contrast. Automated exposure con trol was utilized for the study. A dose lowering technique was utilized adhering to the principles o f ALARA. FINDINGS: No acute intracranial hemorrhage, midline shift or mass effect is present. The ventricular system is unremarkable. The basal cisterns are patent. No extra-axial collections are present. There are no findings to suggest acute dural sinus thrombosis or acute territorial infarct. No significant calvarial abnormalities are present. Visualized portions of the sinuses and mastoid air cells are jessica ar. Gas within the cavernous sinus is likely related to IV insertion. IMPRESSION: No acute intracranial findings. ACT 112: Negative or not required by law. Electronically signed by: Pedro Pablo Moore M.D. 08/03/2021 5:16 PM
[2021-08-03] MEDS: POTASSIUM CHLORIDE 40 MEQ in SODIUM CHLORIDE 0.9% 500 ML IV SCH (17:40)
[2021-08-03] MEDS: FOLIC ACID 400 MCG TAB PO SCH (17:41)
[2021-08-03] MEDS ORDERED: hydrOXYzine HCl 25 MG TAB PO PRN (18:01)
[2021-08-03] MEDS ORDERED: EPINEPHrine ADULT AUTO-INJECT 0.3 MG SYR IM PRN (18:01)
[2021-08-03] MEDS ORDERED: INSULIN GLARGINE SOLOSTAR 100 UNITS/ML 3 ML PEN SQ SCH (18:01)
[2021-08-03] MEDS ORDERED: busPIRone 5 MG TAB PO PRN (18:01)
[2021-08-03] MEDS ORDERED: CYCLOBENZAPRINE HCL 5 MG TAB PO PRN (18:01)
[2021-08-03] MEDS: THIAMINE HCL 100 MG TAB PO SCH (18:23)
[2021-08-03 20:45] LABS: BUN Creatinine Ratio 10.7 (10-20); Calcium 8.3 mg/dl (8.5-10.1); Creatinine Clr Calc Pharmacy 104.9 ml/min; Est GFR (African American) 140.2 ml/min; Magnesium 1.4 mg/dl (1.8-2.4); Potassium 3.5 mmol/L (3.5-5.1)
[2021-08-03] MEDS: CETIRIZINE HCL 10 MG TABLET PO SCH (23:16)
[2021-08-03] MEDS: POT PHOSPHATE MONOBASIC W/ SOD TAB PO SCH (23:17)
[2021-08-03] MEDS: MONTELUKAST SODIUM 10 MG TABLET PO SCH (23:17)
[2021-08-04] MEDS: GABAPENTIN 400 MG CAP PO SCH ×4 (00:04→21:18)
[2021-08-04] MEDS: POTASSIUM CHLORIDE 40 MEQ in SODIUM CHLORIDE 0.9% 500 ML IV SCH (00:04)
[2021-08-04] MEDS ORDERED: Nursing to Pharmacy Communication SCH (00:45)
[2021-08-04 01:47] LABS: Blood Urea Nitrogen 6 mg/dl (7-18); Calcium 8.2 mg/dl (8.5-10.1); Carbon Dioxide 25 mmol/L (21-32); Chloride 104 mmol/L (98-107); Creatinine Clr Calc Pharmacy 132.9 ml/min; Est GFR (African American) > 150.0 ml/min; Est GFR (Non-African American) 130.7 ml/min; Glucose 171 mg/dl (70-99); Potassium 3.7 mmol/L (3.5-5.1); Sodium 137 mmol/L (136-145)
[2021-08-04] MEDS ORDERED: HALOPERIDOL LACTATE 5 MG/ML 1 ML VIAL IM STA (04:06)
[2021-08-04] MEDS ORDERED: HALOPERIDOL LACTATE 5 MG/ML 1 ML VIAL ONE (04:09)
[2021-08-04] MEDS ORDERED: ATIVAN IV ALCOHOL WITHDRAWL IV PRN (04:13)
[2021-08-04] MEDS ORDERED: LORazepam 2 MG/4 ML VIAL IV PRN (04:13)
[2021-08-04] MEDS ORDERED: LORazepam 1 MG/2 ML VIAL IV PRN (04:13)
[2021-08-04] MEDS ORDERED: LORazepam 3 MG/6 ML VIAL IV PRN (04:13)
[2021-08-04] MEDS ORDERED: LORazepam 2 MG/4 ML VIAL ONE ×3 (04:43→04:46)
[2021-08-04 07:53] LABS: Hemoglobin 10.3 g/dL (12.0-16.0); Mean Corpuscular Hemoglobin 32.4 pg (25-34); Mean Corpuscular Hgb Conc 34.3 g/dL (32-36); Mean Corpuscular Volume 94.3 fL (80-100); Mean Platelet Volume 10.4 fL (7.4-10.4); Platelet Count 278 K/uL (130-400); RDW Coefficient of Variation 12.2 % (11.5-14.5); RDW Standard Deviation 41.4 fL (36.4-46.3); Red Blood Count 3.18 M/uL (4.2-5.4); White Blood Count 6.62 K/uL (4.8-10.8)
[2021-08-04 08:51] LABS: Alanine Aminotransferase 21 (12-78); Albumin Globulin Ratio 0.5 (0.9-2); Albumin Level 1.9 gm/dl (3.4-5.0); Alkaline Phosphatase 49 U/L (45-117); Aspartate Aminotransferase 24 U/L (15-37); BUN Creatinine Ratio 10.2 (10-20); Bilirubin,Total 0.2 mg/dl (0.2-1); Blood Urea Nitrogen 4 mg/dl (7-18); Calcium 7.5 mg/dl (8.5-10.1); Carbon Dioxide 22 mmol/L (21-32); Chloride 108 mmol/L (98-107); Creatinine Clr Calc Pharmacy 170.9 ml/min; Est GFR (African American) > 150.0 ml/min; Globulin 3.6 gm/dl (2.5-4.0); Glucose 192 mg/dl (70-99); Magnesium 1.6 mg/dl (1.8-2.4); Potassium 3.1 mmol/L (3.5-5.1); Sodium 138 mmol/L (136-145); Total Protein 5.5 gm/dl (6.4-8.2)
[2021-08-04] MEDS ORDERED: INSULIN GLARGINE SOLOSTAR 100 UNITS/ML 3 ML PEN SC SCH (09:00)
[2021-08-04] MEDS: CETIRIZINE HCL 10 MG TABLET PO SCH ×3 (09:29→21:17)
[2021-08-04] MEDS: FERROUS SULFATE 325 MG TAB PO SCH ×2 (09:29→12:04)
[2021-08-04] MEDS: CHOLECALCIFEROL 1,000 UNITS 25 MCG TAB PO SCH ×2 (09:29→12:04)
[2021-08-04] MEDS: FLUTICASONE/VILANTEROL 200/25MCG 14 PUFFS/INHALER INH SCH ×2 (09:29→12:04)
[2021-08-04] MEDS: POT PHOSPHATE MONOBASIC W/ SOD TAB PO SCH ×4 (09:30→21:17)
[2021-08-04] MEDS: THIAMINE HCL 100 MG TAB PO SCH ×2 (09:30→12:05)
[2021-08-04] MEDS: FOLIC ACID 400 MCG TAB PO SCH ×2 (09:30→12:06)
[2021-08-04] MEDS: PRENATAL VITAMIN 1 TAB PO SCH ×2 (09:30→12:05)
[2021-08-04] MEDS: INSULIN ASPART PER UNIT SC SCH ×4 (10:25→20:28)
[2021-08-04 11:13] LABS: Estimated Average Glucose 148 mg/dl; Hemoglobin A1C 6.8 % (4.5-5.6)
--- NOTE | 2021-08-04 11:24 | Psychiatric Consultation ---
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 [facility] Stop: 09/02/21 20:59 Last Admin: 08/03/21 23:17 Dose: 10 mg Documented by: [id number] Potassium Phosphate (Pot Phosphate Monobasic W/ Sod Tab) 2 tab PO QID [facility] Stop: 09/02/21 20:59 Last Admin: 08/04/21 09:30 Dose: Not Given Documented by: [id number] Admin: 08/03/21 23:17 Dose: 2 tab Documented by: [id number] Prenat Multivit/Allegheny/Iron/Folic Ac ( Vitamin 1 Tab) 1 tab PO DAILY [facility] Stop: 09/03/21 08:59 Last Admin: 12/22/21 09:30 Dose: Not Given Documented by: [id number] Thiamine HCl (Thiamine Hcl 100 Mg Tab) 100 mg PO QAM [facility] Stop: 09/02/21 16:59 Last Admin: 08/04/21 09:30 Dose: Not Given Documented by: [id number] Admin: 08/03/21 18:23 Dose: 100 mg Documented by: [id number] Vitamin D (Cholecalciferol 1,000 Units 25 Mcg Tab) 2,000 units PO DAILY [facility] Stop: 09/03/21 08:59 Last Admin: 08/04/21 09:29 Dose: Not Given Documented by: [id number] Coding Level of Care Code 13626 Inpt Consult Level 3 Diagnoses Altered mental status R41.82
--- NOTE | 2021-08-04 13:25 | Pharmacy Report ---
Pharmacy Glycemic Short Note 2 - Date of Service August 04, 2021 - Glycemic Short BSG Results (Last 24 hours): 08/03/21 08/03/21 08/03/21 13:52 16:24 18:09 Glucose 390 H* POC Glucose 169 H 62 L* 08/03/21 08/03/21 08/04/21 19:03 19:56 00:44 Glucose 101 H 171 H POC Glucose 94 08/04/21 08/04/21 08/04/21 00:49 07:37 07:46 Glucose 192 H POC Glucose 171 H 193 H 08/04/21 11:50 Glucose POC Glucose 204 H OUTPATIENT ANTIDIABETIC REGIMEN: * Lantus 10 units SQ QAM- if compliant * Humalog 5 units prior to the largest meal. ASSESSMENT: * 35 y/o F admitted for mood/behavior disorder and hallucinations. Patient with history of type 2 diabetes managed at home on basal Lantus and Humalog. * Patient was hyperglycemic on admission yesterday. A single dose of regular insulin 10 units SQ dropped her blood sugar to 62 mg/dl at dinner time. * BSGs trended up to 171 later in the night yesterday. * Faster BSG today was 193 mg/dl. A small Lantus dose of 5 units based on wt and mild stress factor was ordered this AM but this was held by doctor due to patient's lethargy. Re-assess basal dose tomorrow. * Novolog parameters tightened with dinner today although patient has been eating very little. PLAN FOR INPATIENT GLYCEMIC CONTROL: * Basal insulin * Lantus 5 units SQ QAM - on hold. Re-assess tomorrow. * Bolus insulin * NovoLog per scale ACHS or Q6hrs while NPO * Goal Range: Low 120 mg/dL - High 150 mg/dL * Correction Factor: 30 mg/dL/unit * Nutritional / Prandial insulin per carb ratio of 1 unit per 10 grams CHO consumed PLAN FOR DISCHARGE: * TBD
--- NOTE | 2021-08-04 15:15 | Hospitalist Progress Note ---
Date of Service August 04, 2021 Assessment & Plan (1) Major depressive disorder: Plan: -Presented with altered mental status and having hallucination at times with flight of ideas -Has been under one-to-one supervision and has not been aggressive -Appreciate psychiatrist input and recommendation -Continue current plan of care (2) Alcohol abuse: Plan: -History of such, last time she drank was last Monday per her report however unknown based off of her current status if this is true -Psychotic symptoms are complicated with withdrawal symptoms from alcohol -Might have Warnicke encephalopathy and has been getting thiamine for that -Gabapentin withdrawal protocol initiated -Ativan doses have been reduced as needed (3) DMII (diabetes mellitus, type 2): Plan: - Glucose was 390 upon arrival, administered 10 U insulin and NSS and has improved to 169 - will continue fluids, potassium, and follow BMP Q4H - Glycemic pharmacy consulted (4) Hyponatremia: Plan: - NSS on board, will trend BMP - Likely worse due to recent nausea and vomiting -Sodium level has been neutralized (5) Hypokalemia: Plan: - EKG reviewed, no signs of ischemia or -Replaced via p.o. and IV in the ER, secondary to nausea and vomiting -We will replace further potassium (6) GERD (gastroesophageal reflux disease): Plan: -History of such, chronic and stable (7) UTI (urinary tract infection): Plan: -UA appears to be dirty, follow urine culture, start on IV ceftriaxone -Urine culture is growing gram-negative bacilli-continue ceftriaxone for now Plan: DVT ppx: - ambulatory CODE: Full Dispo: From home, possible inpatient psych after electrolyte abnormalities improved Admission and Anticipated Discharge Date Admission Date: August 03, 2021 Subjective 08/04/2021 The patient was seen and examined in medical telemetry unit She remains very lethargic and has been sleeping and pleasantly confused Response to vocal commands appropriately but has been hallucinating At a dose of Ativan early this morning and remains drowsy for some time Review of Systems Review of Systems: Unobtainable due to cognitive status Physical Exam Physical Exam: Lying in bed comfortably Constitutional: + ill appearing and average body habitus Eyes: PERRL, conjunctivae normal, anicteric sclerae ENMT: external ear and nose normal, oropharynx normal Neck: trachea midline, no thyromegaly Respiratory: no respiratory distress Auscultation: lungs clear to auscultation bilaterally; no crackles and no wheezes Cardiovascular: Rate/Rhythm: regular rate and regular rhythm; not tachycardic Heart Sounds: normal S1 and normal S2; no murmur Extremities: no edema Gastrointestinal (Abdomen): Inspection/Auscultation: normal bowel sounds; abdomen not distended Percussion/Palpation: abdomen soft; abdomen nontender Musculoskeletal: No acute arthritis in any joint Neurologic: Alert and awake. Pleasantly confused. Occasional hallucination. Generally weak but grossly no focal neuro deficit Lymphatic: no cervical or axillary lymphadenopathy Results & Data Results & Data ([facility]) Vital Signs (Past 12 Hours) Vital Signs Temp Pulse Resp BP BP Pulse Ox 08/04/21 12:09 36.6 C 97 H 20 122/86 97 08/04/21 07:43 36.6 C 84 18 125/85 98 08/04/21 04:33 37.3 C 90 18 134/95 98 Laboratory Results Short CBC 08/04/21 Range/Units 07:37 WBC 6.62 (4.8-10.8) K/uL Hgb 10.3 L (12.0-16.0) g/dL Hct 30.0 L (37-47) % Plt Count 278 (130-400) K/uL BMP 08/03/21 08/04/21 08/04/21 19:56 00:44 07:37 Sodium 137 D 137 138 Potassium 3.5 D 3.7 3.1 L D Chloride 106 104 108 H Carbon Dioxide 24 25 22 BUN 6 L D 6 L 4 L Creatinine 0.57 L 0.45 L 0.35 L Glucose 101 H 171 H 192 H Calcium 8.3 L 8.2 L 7.5 L Liver Function 08/04/21 Range/Units 07:37 Total Bilirubin 0.2 (0.2-1) mg/dl AST 24 (15-37) U/L ALT 21 (12-78) Alkaline Phosphatase 49 (45-117) U/L Albumin 1.9 L (3.4-5.0) gm/dl Medications Administered Current Inpatient Medications Acetaminophen (Acetaminophen 325 Mg Tab) 650 mg PO Q4H PRN PRN Reason: Moderate Pain Stop: 09/02/21 16:27 Buspirone HCl (Buspirone 5 Mg Tab) 5 mg PO BID PRN PRN Reason: Anxiety Stop: 09/02/21 18:00 Last Admin: 08/04/21 12:05 Dose: 5 mg Documented by: Cetirizine HCl (Cetirizine Hcl 10 Mg Tablet) 10 mg PO DAILY [facility] Stop: 09/03/21 08:59 Last Admin: 08/04/21 12:05 Dose: 10 mg Documented by: Cetirizine HCl (Cetirizine Hcl 10 Mg Tablet) 5 mg PO HS [facility] Stop: 09/02/21 20:59 Last Admin: 08/03/21 23:16 Dose: 5 mg Documented by: Cyclobenzaprine HCl (Cyclobenzaprine Hcl 5 Mg Tab) 5 mg PO BID PRN PRN Reason: Muscle Spasm Stop: 09/02/21 18:00 Dextrose (Dextrose 50% 50 Ml Syringe) 25 - 50 ml IV UD PRN; Protocol PRN Reason: Hypoglycemia Protocol Stop: 09/02/21 16:27 Epinephrine HCl (Epinephrine Adult Auto-Inject 0.3 Mg Syr) 0.3 mg IM Q3H PRN PRN Reason: Allergic Reaction Stop: 09/02/21 18:00 Ferrous Sulfate (Ferrous Sulfate 325 Mg Tab) 325 mg PO DAILY [facility] Stop: 09/03/21 08:59 Last Admin: 08/04/21 12:04 Dose: 325 mg Documented by: Fluticasone/Vilanterol (Fluticasone/Vilanterol 200/25mcg 14 Puffs/Inhaler) 1 puffs INH DAILY [facility]; Protocol Stop: 09/03/21 08:59 Last Admin: 08/04/21 12:04 Dose: 1 puffs Documented by: Folic Acid (Folic Acid 400 Mcg Tab) 400 mcg PO QAM [facility] Stop: 09/02/21 16:14 Last Admin: 08/04/21 12:06 Dose: 400 mcg Documented by: Gabapentin (Gabapentin 400 Mg Cap) 400 mg PO Q8H [facility] Stop: 08/05/21 06:46 Last Admin: 08/04/21 12:04 Dose: 400 mg Documented by: Gabapentin (Gabapentin 400 Mg Cap) 400 mg PO Q12H [facility] Stop: 08/06/21 06:46 Gabapentin (Gabapentin 400 Mg Cap) 400 mg PO Q24H [facility] Stop: 08/07/21 04:16 Glucagon (Glucagon For Inj 1 Mg Vial) 1 mg SQ UD PRN; Protocol PRN Reason: Hypoglycemia Protocol Stop: 09/02/21 16:27 Glucose (Glucose 10 Tabs/Tube) 4 - 8 tabs PO UD PRN; Protocol PRN Reason: Hypoglycemia Protocol Stop: 09/02/21 16:27 Glucose (Glucose 40% Gel 15 Gm Tube) 15 - 30 gm PO UD PRN; Protocol PRN Reason: Hypoglycemia Protocol Stop: 09/02/21 16:27 Ceftriaxone Sodium 1,000 mg/ (Dextrose) 50 mls @ 100 mls/hr IV Q24H [facility]; Protocol Stop: 08/08/21 16:14 Last Infusion: 08/03/21 17:27 Dose: Infused Documented by: Lorazepam (Ativan) 1 mg in 2 mls @ 2 mls/min IV UD PRN; Protocol PRN Reason: EtOH Withdrawl AWSS Score 6,7 Stop: 09/03/21 04:12 Last Admin: 08/04/21 13:54 Dose: 2 mls/min Documented by: Lorazepam (Ativan) 2 mg in 4 mls @ 4 mls/min IV UD PRN; Protocol PRN Reason: EtOH Withdrawl AWSS Score 8,9 Stop: 09/03/21 04:12 Insulin Aspart (Insulin Aspart Per Unit) 0 units SC ACHS [facility] Stop: 09/02/21 16:29 Last Admin: 08/04/21 12:10 Dose: 3 units Documented by: Insulin Glargine (Insulin Glargine Solostar 100 Units/Ml 3 Ml Pen) 5 units SC QAM [facility] Stop: 09/03/21 08:59 Last Admin: 08/04/21 10:21 Dose: Not Given Documented by: Miscellaneous (Carbohydrates For Hypoglycemia ) 15 - 30 gm PO UD PRN PRN Reason: Hypoglycemia Protocol Stop: 09/02/21 16:27 Miscellaneous (Viibryd: Order Awaiting Action) 1 ea N/A QS [facility] Stop: 09/03/21 00:00 Last Admin: 08/04/21 09:28 Dose: Not Given Documented by: Miscellaneous Information (Pharmacy Glycemic Mgmt Consult) 1 ea N/A UD PRN; Protocol PRN Reason: Consult Stop: 09/02/21 16:10 Montelukast Sodium (Montelukast Sodium 10 Mg Tablet) 10 mg PO HS [facility] Stop: 09/02/21 20:59 Last Admin: 08/03/21 23:17 Dose: 10 mg Documented by: Ondansetron HCl (Ondansetron Inj 2 Mg/Ml 2 Ml Vial) 4 mg IV Q4H PRN PRN Reason: Nausea And Vomiting Stop: 09/02/21 16:27 Potassium Phosphate (Pot Phosphate Monobasic W/ Sod Tab) 2 tab PO QID [facility] Stop: 09/02/21 20:59 Last Admin: 08/04/21 12:04 Dose: 2 tab Documented by: Prenat Multivit/Dickey/Iron/Folic Ac ( Vitamin 1 Tab) 1 tab PO DAILY [facility] Stop: 09/03/21 08:59 Last Admin: 08/04/21 12:05 Dose: 1 tab Documented by: Thiamine HCl (Thiamine Hcl 100 Mg Tab) 100 mg PO QAM [facility] Stop: 09/02/21 16:59 Last Admin: 08/04/21 12:05 Dose: 100 mg Documented by: Vitamin D (Cholecalciferol 1,000 Units 25 Mcg Tab) 2,000 units PO DAILY [facility] Stop: 09/03/21 08:59 Last Admin: 08/04/21 12:04 Dose: 2,000 units Documented by:
[2021-08-04] MEDS: cefTRIAXone SODIUM 1,000 MG in DEXTROSE 5% 50 ML IV SCH (16:37)
[2021-08-04] MEDS: THIAMINE HCL 100 MG in SYRINGE 9 ML IV SCH (16:49)
[2021-08-04] MEDS: MONTELUKAST SODIUM 10 MG TABLET PO SCH (21:17)
[2021-08-05] MEDS: GABAPENTIN 400 MG CAP PO SCH ×2 (05:47→18:56)
[2021-08-05 06:27] LABS: Hematocrit (blood only) 33.2 % (37-47); Hemoglobin 11.2 g/dL (12.0-16.0); Mean Corpuscular Hemoglobin 32.2 pg (25-34); Mean Corpuscular Hgb Conc 33.7 g/dL (32-36); Mean Corpuscular Volume 95.4 fL (80-100); Mean Platelet Volume 10.6 fL (7.4-10.4); Platelet Count 351 K/uL (130-400); RDW Coefficient of Variation 12.4 % (11.5-14.5); Red Blood Count 3.48 M/uL (4.2-5.4); White Blood Count 6.57 K/uL (4.8-10.8)
--- NOTE | 2021-08-05 06:46 | Electrocardiogram Report ---
Test Reason : Blood Pressure : / mmHG Vent. Rate : 088 BPM Atrial Rate : 088 BPM P-R Int : 150 ms QRS Dur : 070 ms QT Int : 352 ms P-R-T Axes : 053 031 -07 degrees QTc Int : 425 ms Poor data quality, interpretation may be adversely affected Normal sinus rhythm Cannot rule out Anterior infarct , age undetermined Abnormal ECG When compared with ECG of 05-APR-2021 13:08, No significant change was found Confirmed by Oscar Barraza ([id number]) on 08/05/2021 6:46:06 AM Referred By: REFERRED SELF Confirmed By:Oscar Barraza
[2021-08-05 07:17] LABS: Alanine Aminotransferase 24 (12-78); Aspartate Aminotransferase 25 U/L (15-37); BUN Creatinine Ratio 13.4 (10-20); Blood Urea Nitrogen 5 mg/dl (7-18); Calcium 8.2 mg/dl (8.5-10.1); Carbon Dioxide 27 mmol/L (21-32); Chloride 100 mmol/L (98-107); Creatinine Clr Calc Pharmacy 176.1 ml/min; Est GFR (African American) > 150.0 ml/min; Est GFR (Non-African American) 139.4 ml/min; Glucose 232 mg/dl (70-99); Sodium 135 mmol/L (136-145)
[2021-08-05 07:20] LABS: Albumin Globulin Ratio 0.5 (0.9-2); Alkaline Phosphatase 49 U/L (45-117); Bilirubin,Total 0.3 mg/dl (0.2-1); Globulin 4.1 gm/dl (2.5-4.0); Total Protein 6.1 gm/dl (6.4-8.2)
[2021-08-05] MEDS ORDERED: POTASSIUM CHLORIDE CRTAB 20 MEQ TABCR PO STA (08:03)
[2021-08-05] MEDS: POT PHOSPHATE MONOBASIC W/ SOD TAB PO SCH ×4 (09:23→20:55)
[2021-08-05] MEDS: FLUTICASONE/VILANTEROL 200/25MCG 14 PUFFS/INHALER INH SCH (09:24)
[2021-08-05] MEDS: THIAMINE HCL 100 MG in SYRINGE 9 ML IV SCH (09:24)
[2021-08-05] MEDS: PRENATAL VITAMIN 1 TAB PO SCH (09:24)
[2021-08-05] MEDS: FERROUS SULFATE 325 MG TAB PO SCH (09:24)
[2021-08-05] MEDS: FOLIC ACID 1 MG in SYRINGE 9.8 ML IV SCH (09:24)
[2021-08-05] MEDS: CETIRIZINE HCL 10 MG TABLET PO SCH (09:25)
[2021-08-05] MEDS: CHOLECALCIFEROL 1,000 UNITS 25 MCG TAB PO SCH (09:25)
[2021-08-05] MEDS: INSULIN ASPART PER UNIT SC SCH ×4 (09:40→20:55)
[2021-08-05] MEDS ORDERED: MAGNESIUM SULFATE / D5W 1 GM/100 ML BAG IV ONE (12:15)
[2021-08-05] MEDS ORDERED: POTASSIUM CHLORIDE / WTR 10 MEQ/100 ML PLCT IV ONE (12:15)
--- NOTE | 2021-08-05 13:31 | Psychiatric Progress Note ---
Date of Service August 05, 2021 Impression / Recommendations Impression Per consult: 35 yo female admit with disorganized behavior and poor self care in the setting of chronic Etoh and MJ abuse, timing of admission and paranoia consistent with withdrawal delirium, cannot exclude Wernicke's encephalopathy. She is being treated with thiamine. Likely has some form of underlying mood disorder, I cannot comment on bipolar dx, seems like mainly in past reactive depression but generally in the context of EToh abuse so could be substance induced Although the patient denies thoughts to harm self or others, she appears to have a mixed manic presentation and showed gross inability to care for self and continues with some thought disorganization and paranoia. Tentative dx of bipolar disorder given current presentation and past depression though differential includes primary thought disorder, substance induced mood or psychotic disorder, etc. (1) Bipolar disorder: she is agreeable to a 201 admission to when medically cleared. Interval History Identifying Information Leodan Raymundo) is a 35-year-old female from [place] who was voluntarily brought to the ED by police for bothering neighbors and several self-initiated calls to police. She denies this currently. She was admitted medically for AMS and presumed ETOH withdrawal delirium. Chief Complaint "I know I need to get myself straightened out.". Review of Systems Notes she denies ECHEVARRIA, N, V, D. Has had low K and is infusing Subjective Subjective Patient was seen & assessed and interval progress reviewed with Dr. Valdez. Today she is much more alert. She was suspicious when I asked about her neighbor and does maintain that she is being "watched as they want to take my kids". She states she is referring to her ex (the father of her 2 children ages 2 and 5) who is now in a relationship and just had a baby with her adoptive mother's niece. She states that although she has shared custody with her ex, he plans to move with the kids to [place] and she believes they left already. She states he was to have the kids for [place] but doesn't believe he'll come back. She states that she's been depressed for quite a while and this likely did contribute to her EToh use in April. She denies heavy ongoing use even when therapeutically confronted on her RADHA at that time and her current presentation though her VS have been largely stable. She was somewhat disorganized when asked about past dx and med trials and states "I'm probably bipolar because of course I'm paranoid". 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 Physical Exam Psychiatric Orientation: alert Apperance: + disheveled Eye Contact: + fair eye contact Motor Behavior: no abnormal motor movements Speech: + abnormal rate/rhythm/volume of speech (hyperverbal but not pressured) Affect: + constricted affect Mood: + depressed mood Thought Process: + tangential thought process Thought Content: + paranoid Suicidal Thoughts: denies suicidal thoughts Homicidal Thoughts: denies homicidal thoughts Hallucinations: no auditory hallucinations and no visual hallucinations Cognition: language grossly intact; + attention not intact Estimated Intelligence: consistent with education level Insight: + limited insight Judgement: + limited judgement Vital Signs (Past 24 Hours) Last Vital Signs Temp 36.7 C 08/05/21 11:18 Pulse 95 H 08/05/21 11:18 Resp 20 08/05/21 11:18 BP 108/82 08/05/21 11:18 Pulse Ox 94 08/05/21 11:18 Results & Data (U) Laboratory Results Laboratory Results - last 24 hr 08/04/21 08/04/21 08/05/21 16:52 20:08 05:58 WBC 6.57 RBC 3.48 L Hgb 11.2 L Hct 33.2 L MCV 95.4 MCH 32.2 MCHC 33.7 RDW Std Deviation 43.0 RDW Coeff of Arnold 12.4 Plt Count 351 MPV 10.6 H Sodium Potassium Chloride Carbon Dioxide Anion Gap BUN Creatinine Est Cr Clr Drug Dosing Est GFR ( Amer) Est GFR (Non-Af Amer) BUN/Creatinine Ratio Glucose POC Glucose 207 H 71 Calcium Total Bilirubin AST ALT Alkaline Phosphatase Total Protein Albumin Globulin Albumin/Globulin Ratio 08/05/21 08/05/21 08/05/21 05:58 07:33 11:31 WBC RBC Hgb Hct MCV MCH MCHC RDW Std Deviation RDW Coeff of Arnold Plt Count MPV Sodium 135 L Potassium 3.0 L Chloride 100 Carbon Dioxide 27 Anion Gap 8.0 BUN 5 L Creatinine 0.37 L Est Cr Clr Drug Dosing 176.1 Est GFR ( Amer) > 150.0 Est GFR (Non-Af Amer) 139.4 BUN/Creatinine Ratio 13.4 Glucose 232 H POC Glucose 237 H 91 Calcium 8.2 L Total Bilirubin 0.3 AST 25 ALT 24 Alkaline Phosphatase 49 Total Protein 6.1 L Albumin 2.0 L Globulin 4.1 H Albumin/Globulin Ratio 0.5 L Current Inpatient Medications Current Inpatient Medications: Current Inpatient Medications Acetaminophen (Acetaminophen 325 Mg Tab) 650 mg PO Q4H PRN PRN Reason: Moderate Pain Stop: 09/02/21 16:27 Buspirone HCl (Buspirone 5 Mg Tab) 5 mg PO BID PRN PRN Reason: Anxiety Stop: 09/02/21 18:00 Last Admin: 08/04/21 12:05 Dose: 5 mg Documented by: Cetirizine HCl (Cetirizine Hcl 10 Mg Tablet) 10 mg PO DAILY [facility] Stop: 09/03/21 08:59 Last Admin: 08/05/21 09:25 Dose: 10 mg Documented by: Cetirizine HCl (Cetirizine Hcl 10 Mg Tablet) 5 mg PO HS [facility] Stop: 09/02/21 20:59 Last Admin: 08/04/21 21:17 Dose: 5 mg Documented by: Cyclobenzaprine HCl (Cyclobenzaprine Hcl 5 Mg Tab) 5 mg PO BID PRN PRN Reason: Muscle Spasm Stop: 09/02/21 18:00 Dextrose (Dextrose 50% 50 Ml Syringe) 25 - 50 ml IV UD PRN; Protocol PRN Reason: Hypoglycemia Protocol Stop: 09/02/21 16:27 Epinephrine HCl (Epinephrine Adult Auto-Inject 0.3 Mg Syr) 0.3 mg IM Q3H PRN PRN Reason: Allergic Reaction Stop: 09/02/21 18:00 Ferrous Sulfate (Ferrous Sulfate 325 Mg Tab) 325 mg PO DAILY [facility] Stop: 09/03/21 08:59 Last Admin: 08/05/21 09:24 Dose: 325 mg Documented by: Fluticasone/Vilanterol (Fluticasone/Vilanterol 200/25mcg 14 Puffs/Inhaler) 1 puffs INH DAILY [facility]; Protocol Stop: 09/03/21 08:59 Last Admin: 08/05/21 09:24 Dose: 1 puffs Documented by: Gabapentin (Gabapentin 400 Mg Cap) 400 mg PO Q12H [facility] Stop: 08/06/21 06:46 Gabapentin (Gabapentin 400 Mg Cap) 400 mg PO Q24H [facility] Stop: 08/07/21 04:16 Glucagon (Glucagon For Inj 1 Mg Vial) 1 mg SQ UD PRN; Protocol PRN Reason: Hypoglycemia Protocol Stop: 09/02/21 16:27 Glucose (Glucose 10 Tabs/Tube) 4 - 8 tabs PO UD PRN; Protocol PRN Reason: Hypoglycemia Protocol Stop: 09/02/21 16:27 Glucose (Glucose 40% Gel 15 Gm Tube) 15 - 30 gm PO UD PRN; Protocol PRN Reason: Hypoglycemia Protocol Stop: 09/02/21 16:27 Ceftriaxone Sodium 1,000 mg/ (Dextrose) 50 mls @ 100 mls/hr IV Q24H [facility]; Protocol Stop: 08/08/21 16:14 Last Infusion: 08/04/21 18:06 Dose: Infused Documented by: Lorazepam (Ativan) 1 mg in 2 mls @ 2 mls/min IV UD PRN; Protocol PRN Reason: EtOH Withdrawl AWSS Score 6,7 Stop: 09/03/21 04:12 Last Admin: 08/04/21 13:54 Dose: 2 mls/min Documented by: Lorazepam (Ativan) 2 mg in 4 mls @ 4 mls/min IV UD PRN; Protocol PRN Reason: EtOH Withdrawl AWSS Score 8,9 Stop: 09/03/21 04:12 Thiamine HCl 100 mg/ Syringe 10 mls @ 2 mls/min IV [facility] Stop: 09/03/21 15:29 Last Admin: 08/05/21 09:24 Dose: 2 mls/min Documented by: Folic Acid 1 mg/ Syringe 10 mls @ 5 mls/min IV [facility] Stop: 09/04/21 08:59 Last Admin: 08/05/21 09:24 Dose: 5 mls/min Documented by: Magnesium Sulfate/Dextrose (Magnesium Sulfate / D5w) 1 gm in 100 mls @ 50 mls/hr IV ONE ONE Stop: 08/05/21 14:14 Insulin Aspart (Insulin Aspart Per Unit) 0 units SC [facility] Stop: 09/02/21 16:29 Last Admin: 08/05/21 12:41 Dose: Not Given Documented by: Insulin Glargine (Insulin Glargine Solostar 100 Units/Ml 3 Ml Pen) 5 units SC [facility] Stop: 09/03/21 08:59 Last Admin: 08/04/21 10:21 Dose: Not Given Documented by: Miscellaneous (Carbohydrates For Hypoglycemia ) 15 - 30 gm PO UD PRN PRN Reason: Hypoglycemia Protocol Stop: 09/02/21 16:27 Miscellaneous (Viibryd: Order Awaiting Action) 1 ea N/A QS [facility] Stop: 09/03/21 00:00 Last Admin: 08/05/21 09:26 Dose: Not Given Documented by: Miscellaneous Information (Pharmacy Glycemic Mgmt Consult) 1 ea N/A UD PRN; Protocol PRN Reason: Consult Stop: 09/02/21 16:10 Montelukast Sodium (Montelukast Sodium 10 Mg Tablet) 10 mg PO HS [facility] Stop: 09/02/21 20:59 Last Admin: 08/04/21 21:17 Dose: 10 mg Documented by: Ondansetron HCl (Ondansetron Inj 2 Mg/Ml 2 Ml Vial) 4 mg IV Q4H PRN PRN Reason: Nausea And Vomiting Stop: 09/02/21 16:27 Potassium Chloride (Potassium Chloride Crtab 20 Meq Tabcr) 40 meq PO ONE ONE Stop: 08/05/21 14:01 Potassium Phosphate (Pot Phosphate Monobasic W/ Sod Tab) 2 tab PO QID [facility] Stop: 09/02/21 20:59 Last Admin: 08/05/21 09:23 Dose: 2 tab Documented by: Prenat Multivit/Refrigerator Repairman/Iron/Folic Ac ( Vitamin 1 Tab) 1 tab PO DAILY [facility] Stop: 09/03/21 08:59 Last Admin: 08/05/21 09:24 Dose: 1 tab Documented by: Vitamin D (Cholecalciferol 1,000 Units 25 Mcg Tab) 2,000 units PO DAILY [facility] Stop: 09/03/21 08:59 Last Admin: 08/05/21 09:25 Dose: 2,000 units Documented by:
[2021-08-05] MEDS ORDERED: POTASSIUM CHLORIDE CRTAB 20 MEQ TABCR PO ONE (14:00)
--- NOTE | 2021-08-05 15:09 | Hospitalist Progress Note ---
Date of Service August 05, 2021 Assessment & Plan (1) Major depressive disorder: Plan: -Presented with altered mental status and having hallucination at times with flight of ideas -Has been under one-to-one supervision and has not been aggressive -Appreciate psychiatrist input and recommendation -Continue current plan of care -She is agreeable to go to inpatient psychiatric floor for continued care -Medically stable to be transferred (2) Alcohol abuse: Plan: -History of such, last time she drank was last Monday per her report however unknown based off of her current status if this is true -Psychotic symptoms are complicated with withdrawal symptoms from alcohol -Might have Warnicke encephalopathy and has been getting thiamine for that -Gabapentin withdrawal protocol initiated -Ativan doses have been reduced as needed -Does not have any symptoms of withdrawal (3) DMII (diabetes mellitus, type 2): Plan: - Glucose was 390 upon arrival, administered 10 U insulin and NSS and has improved to 169 - will continue fluids, potassium, and follow BMP Q4H - Glycemic pharmacy consulted -Blood sugar seems to be stable (4) Hyponatremia: Plan: - NSS on board, will trend BMP - Likely worse due to recent nausea and vomiting -Sodium level has been neutralized (5) Hypokalemia: Plan: - EKG reviewed, no signs of ischemia or -Replaced via p.o. and IV in the ER, secondary to nausea and vomiting -We will replace further potassium -We will monitor potassium level and magnesium level -We will give regular supplement on discharge (6) GERD (gastroesophageal reflux disease): Plan: -History of such, chronic and stable (7) UTI (urinary tract infection): Plan: -UA appears to be dirty, follow urine culture, start on IV ceftriaxone -Urine culture is growing gram-negative bacilli-continue ceftriaxone for now -Urine culture is growing E. coli resistant to ciprofloxacin -We will change antibiotic to Keflex on discharge Plan: DVT ppx: - ambulatory CODE: Full Dispo: From home, possible inpatient psych after electrolyte abnormalities improved Will be transferred to psych floor this evening or tomorrow Admission and Anticipated Discharge Date Admission Date: August 03, 2021 Subjective 08/04/2021 The patient was seen and examined in medical telemetry unit She remains very lethargic and has been sleeping and pleasantly confused Response to vocal commands appropriately but has been hallucinating At a dose of Ativan early this morning and remains drowsy for some time 08/05/2021 The patient was seen and examined in medical telemetry unit She has been feeling much better today and denies any hallucination or acute confusion She wants to go to the inpatient psychiatric unit Review of Systems Review of Systems: All systems reviewed and are unremarkable except as noted below Physical Exam Physical Exam: Lying in bed comfortably Constitutional: + ill appearing and average body habitus Eyes: PERRL, conjunctivae normal, anicteric sclerae ENMT: external ear and nose normal, oropharynx normal Neck: trachea midline, no thyromegaly Respiratory: no respiratory distress Auscultation: lungs clear to auscultation bilaterally; no crackles and no wheezes Cardiovascular: Rate/Rhythm: regular rate and regular rhythm; not tachycardic Heart Sounds: normal S1 and normal S2; no murmur Extremities: no edema Gastrointestinal (Abdomen): Inspection/Auscultation: normal bowel sounds; abdomen not distended Percussion/Palpation: abdomen soft; abdomen nontender Musculoskeletal: No acute arthritis in any joint Neurologic: Alert, awake and oriented x3. Generally weak. No tremors. No nystagmus. No focal neuro deficit Lymphatic: no cervical or axillary lymphadenopathy Results & Data Results & Data ([facility]) Vital Signs (Past 12 Hours) Vital Signs Temp Pulse Pulse Resp BP BP Pulse Ox 08/05/21 11:18 36.7 C 95 H 20 108/82 94 08/05/21 07:45 90 08/05/21 07:09 37.1 C 76 18 119/81 98 08/05/21 04:03 37.0 C 107 H 18 122/86 97 Laboratory Results Short CBC 08/05/21 Range/Units 05:58 WBC 6.57 (4.8-10.8) K/uL Hgb 11.2 L (12.0-16.0) g/dL Hct 33.2 L (37-47) % Plt Count 351 (130-400) K/uL BMP 08/05/21 05:58 Sodium 135 L Potassium 3.0 L Chloride 100 Carbon Dioxide 27 BUN 5 L Creatinine 0.37 L Glucose 232 H Calcium 8.2 L Liver Function 08/05/21 Range/Units 05:58 Total Bilirubin 0.3 (0.2-1) mg/dl AST 25 (15-37) U/L ALT 24 (12-78) Alkaline Phosphatase 49 (45-117) U/L Albumin 2.0 L (3.4-5.0) gm/dl Medications Administered Current Inpatient Medications Acetaminophen (Acetaminophen 325 Mg Tab) 650 mg PO Q4H PRN PRN Reason: Moderate Pain Stop: 09/02/21 16:27 Buspirone HCl (Buspirone 5 Mg Tab) 5 mg PO BID PRN PRN Reason: Anxiety Stop: 09/02/21 18:00 Last Admin: 08/04/21 12:05 Dose: 5 mg Documented by: Cetirizine HCl (Cetirizine Hcl 10 Mg Tablet) 10 mg PO DAILY [facility] Stop: 09/03/21 08:59 Last Admin: 08/05/21 09:25 Dose: 10 mg Documented by: Cetirizine HCl (Cetirizine Hcl 10 Mg Tablet) 5 mg PO HS [facility] Stop: 09/02/21 20:59 Last Admin: 08/04/21 21:17 Dose: 5 mg Documented by: Cyclobenzaprine HCl (Cyclobenzaprine Hcl 5 Mg Tab) 5 mg PO BID PRN PRN Reason: Muscle Spasm Stop: 09/02/21 18:00 Dextrose (Dextrose 50% 50 Ml Syringe) 25 - 50 ml IV UD PRN; Protocol PRN Reason: Hypoglycemia Protocol Stop: 09/02/21 16:27 Epinephrine HCl (Epinephrine Adult Auto-Inject 0.3 Mg Syr) 0.3 mg IM Q3H PRN PRN Reason: Allergic Reaction Stop: 09/02/21 18:00 Ferrous Sulfate (Ferrous Sulfate 325 Mg Tab) 325 mg PO DAILY [facility] Stop: 09/03/21 08:59 Last Admin: 08/05/21 09:24 Dose: 325 mg Documented by: Fluticasone/Vilanterol (Fluticasone/Vilanterol 200/25mcg 14 Puffs/Inhaler) 1 puffs INH DAILY [facility]; Protocol Stop: 09/03/21 08:59 Last Admin: 08/05/21 09:24 Dose: 1 puffs Documented by: Gabapentin (Gabapentin 400 Mg Cap) 400 mg PO Q12H [facility] Stop: 08/06/21 06:46 Gabapentin (Gabapentin 400 Mg Cap) 400 mg PO Q24H [facility] Stop: 08/07/21 04:16 Glucagon (Glucagon For Inj 1 Mg Vial) 1 mg SQ UD PRN; Protocol PRN Reason: Hypoglycemia Protocol Stop: 09/02/21 16:27 Glucose (Glucose 10 Tabs/Tube) 4 - 8 tabs PO UD PRN; Protocol PRN Reason: Hypoglycemia Protocol Stop: 09/02/21 16:27 Glucose (Glucose 40% Gel 15 Gm Tube) 15 - 30 gm PO UD PRN; Protocol PRN Reason: Hypoglycemia Protocol Stop: 09/02/21 16:27 Ceftriaxone Sodium 1,000 mg/ (Dextrose) 50 mls @ 100 mls/hr IV Q24H [facility]; Protocol Stop: 08/08/21 16:14 Last Infusion: 08/04/21 18:06 Dose: Infused Documented by: Lorazepam (Ativan) 1 mg in 2 mls @ 2 mls/min IV UD PRN; Protocol PRN Reason: EtOH Withdrawl AWSS Score 6,7 Stop: 09/03/21 04:12 Last Admin: 08/04/21 13:54 Dose: 2 mls/min Documented by: Lorazepam (Ativan) 2 mg in 4 mls @ 4 mls/min IV UD PRN; Protocol PRN Reason: EtOH Withdrawl AWSS Score 8,9 Stop: 09/03/21 04:12 Thiamine HCl 100 mg/ Syringe 10 mls @ 2 [facility] Stop: 09/03/21 15:29 Last Admin: 08/05/21 09:24 Dose: 2 mls/min Documented by: Folic Acid 1 mg/ Syringe 10 mls @ 5 mls/[facility] [place] Stop: 09/04/21 08:59 Last Admin: 08/05/21 09:24 Dose: 5 mls/min Documented by: Insulin Aspart (Insulin Aspart Per Unit) 0 units SC [facility] Stop: 09/02/21 16:29 Last Admin: 08/05/21 12:41 Dose: Not Given Documented by: Insulin Glargine (Insulin Glargine Solostar 100 Units/Ml 3 Ml Pen) 5 units SC [facility] Stop: 09/03/21 08:59 Last Admin: 08/04/21 10:21 Dose: Not Given Documented by: Miscellaneous (Carbohydrates For Hypoglycemia ) 15 - 30 gm PO UD PRN PRN Reason: Hypoglycemia Protocol Stop: 09/02/21 16:27 Miscellaneous (Viibryd: Order Awaiting Action) 1 ea N/A [facility] Stop: 09/03/21 00:00 Last Admin: 08/05/21 09:26 Dose: Not Given Documented by: Miscellaneous Information (Pharmacy Glycemic Mgmt Consult) 1 ea N/A UD PRN; Protocol PRN Reason: Consult Stop: 09/02/21 16:10 Montelukast Sodium (Montelukast Sodium 10 Mg Tablet) 10 mg PO HS [facility] Stop: 09/02/21 20:59 Last Admin: 08/04/21 21:17 Dose: 10 mg Documented by: Ondansetron HCl (Ondansetron Inj 2 Mg/Ml 2 Ml Vial) 4 mg IV Q4H PRN PRN Reason: Nausea And Vomiting Stop: 09/02/21 16:27 Potassium Phosphate (Pot Phosphate Monobasic W/ Sod Tab) 2 tab PO QID [facility] Stop: 09/02/21 20:59 Last Admin: 08/05/21 13:43 Dose: 2 tab Documented by: Prenat Multivit/Green/Iron/Folic Ac ( Vitamin 1 Tab) 1 tab PO DAILY [facility] Stop: 09/03/21 08:59 Last Admin: 08/05/21 09:24 Dose: 1 tab Documented by: Vitamin D (Cholecalciferol 1,000 Units 25 Mcg Tab) 2,000 units PO DAILY [facility] Stop: 09/03/21 08:59 Last Admin: 08/05/21 09:25 Dose: 2,000 units Documented by:
[2021-08-05] MEDS: cefTRIAXone SODIUM 1,000 MG in DEXTROSE 5% 50 ML IV SCH (16:45)
[2021-08-05 17:05] LABS: BUN Creatinine Ratio 12.8 (10-20); Calcium 8.6 mg/dl (8.5-10.1); Creatinine Clr Calc Pharmacy 135.8 ml/min; Est GFR (African American) 148.3 ml/min; Potassium 3.8 mmol/L (3.5-5.1)
[2021-08-05] MEDS: PANTOprazole 40 MG TAB PO SCH (18:56)
[2021-08-05] MEDS: MONTELUKAST SODIUM 10 MG TABLET PO SCH (20:55)
[2021-08-06 05:48] LABS: Hematocrit (blood only) 33.7 % (37-47); Hemoglobin 11.4 g/dL (12.0-16.0); Mean Corpuscular Hemoglobin 32.3 pg (25-34); Mean Corpuscular Hgb Conc 33.8 g/dL (32-36); Mean Corpuscular Volume 95.5 fL (80-100); Mean Platelet Volume 10.1 fL (7.4-10.4); Platelet Count 371 K/uL (130-400); RDW Coefficient of Variation 12.4 % (11.5-14.5); RDW Standard Deviation 43.1 fL (36.4-46.3); Red Blood Count 3.53 M/uL (4.2-5.4); White Blood Count 7.65 K/uL (4.8-10.8)
[2021-08-06 06:24] LABS: Alanine Aminotransferase 22 (12-78); Albumin Level 2.1 gm/dl (3.4-5.0); Aspartate Aminotransferase 16 U/L (15-37); BUN Creatinine Ratio 7.7 (10-20); Blood Urea Nitrogen 4 mg/dl (7-18); Calcium 8.6 mg/dl (8.5-10.1); Carbon Dioxide 28 mmol/L (21-32); Chloride 102 mmol/L (98-107); Creatinine Clr Calc Pharmacy 127.8 ml/min; Est GFR (African American) 145.4 ml/min; Est GFR (Non-African American) 125.5 ml/min; Glucose 220 mg/dl (70-99); Potassium 3.7 mmol/L (3.5-5.1); Sodium 135 mmol/L (136-145)
[2021-08-06 06:25] LABS: Albumin Globulin Ratio 0.5 (0.9-2); Alkaline Phosphatase 48 U/L (45-117); Bilirubin,Total < 0.1 mg/dl (0.2-1); Total Protein 6.1 gm/dl (6.4-8.2)
[2021-08-06] MEDS: GABAPENTIN 400 MG CAP PO SCH (06:39)
[2021-08-06] MEDS: INSULIN ASPART PER UNIT SC SCH ×2 (08:16→12:43)
[2021-08-06] MEDS: FERROUS SULFATE 325 MG TAB PO SCH (08:33)
[2021-08-06] MEDS: FOLIC ACID 1 MG in SYRINGE 9.8 ML IV SCH (08:33)
[2021-08-06] MEDS: PANTOprazole 40 MG TAB PO SCH (08:33)
[2021-08-06] MEDS: CETIRIZINE HCL 10 MG TABLET PO SCH (08:33)
[2021-08-06] MEDS: CHOLECALCIFEROL 1,000 UNITS 25 MCG TAB PO SCH (08:33)
[2021-08-06] MEDS: FLUTICASONE/VILANTEROL 200/25MCG 14 PUFFS/INHALER INH SCH (08:33)
[2021-08-06] MEDS: PRENATAL VITAMIN 1 TAB PO SCH (08:34)
[2021-08-06] MEDS: POT PHOSPHATE MONOBASIC W/ SOD TAB PO SCH ×2 (08:34→13:21)
[2021-08-06] MEDS: THIAMINE HCL 100 MG in SYRINGE 9 ML IV SCH (08:34)
--- NOTE | 2021-08-06 11:06 | Hospitalist Progress Note ---
Date of Service August 06, 2021 Assessment & Plan (1) Major depressive disorder: Plan: -Presented with altered mental status and having hallucination at times with flight of ideas -Has been under one-to-one supervision and has not been aggressive -Appreciate psychiatrist input and recommendation -Continue current plan of care -She is agreeable to go to inpatient psychiatric floor for continued care -Medically stable to be transferred -She will be discharged to the psych floor this afternoon (2) Alcohol abuse: Plan: -History of such, last time she drank was last Monday per her report however unknown based off of her current status if this is true -Psychotic symptoms are complicated with withdrawal symptoms from alcohol -Might have Warnicke encephalopathy and has been getting thiamine for that -Gabapentin withdrawal protocol initiated -Ativan doses have been reduced as needed -Does not have any symptoms of withdrawal -We will continue thiamine and folic acid (3) DMII (diabetes mellitus, type 2): Plan: - Glucose was 390 upon arrival, administered 10 U insulin and NSS and has improved to 169 - will continue fluids, potassium, and follow BMP Q4H - Glycemic pharmacy consulted -Blood sugar seems to be stable -Her hemoglobin AIC is 6.8 (4) Hyponatremia: Plan: - NSS on board, will trend BMP - Likely worse due to recent nausea and vomiting -Sodium level has been neutralized (5) Hypokalemia: Plan: - EKG reviewed, no signs of ischemia or -Replaced via p.o. and IV in the ER, secondary to nausea and vomiting -We will replace further potassium -We will monitor potassium level and magnesium level -We will give regular supplement on discharge (6) GERD (gastroesophageal reflux disease): Plan: -History of such, chronic and stable -Has been getting PPI (7) UTI (urinary tract infection): Plan: -UA appears to be dirty, follow urine culture, start on IV ceftriaxone -Urine culture is growing gram-negative bacilli-continue ceftriaxone for now -Urine culture is growing E. coli resistant to ciprofloxacin -We will change antibiotic to Keflex on discharge Plan: DVT ppx: - ambulatory CODE: Full Dispo: From home, possible inpatient psych after electrolyte abnormalities improved Will be transferred to psych floor this evening or tomorrow She will be transferred to psych floor this afternoon Admission and Anticipated Discharge Date Admission Date: August 03, 2021 Subjective 08/04/2021 The patient was seen and examined in medical telemetry unit She remains very lethargic and has been sleeping and pleasantly confused Response to vocal commands appropriately but has been hallucinating At a dose of Ativan early this morning and remains drowsy for some time 08/05/2021 The patient was seen and examined in medical telemetry unit She has been feeling much better today and denies any hallucination or acute confusion She wants to go to the inpatient psychiatric unit 08/06/2021 The patient was seen and examined in medical telemetry unit She remains stable and feels tired Abdominal discomfort has disappeared Denies any other acute symptoms Review of Systems Review of Systems: All systems reviewed and are unremarkable except as noted below Physical Exam Physical Exam: Lying in bed comfortably Constitutional: + ill appearing and average body habitus Eyes: PERRL, conjunctivae normal, anicteric sclerae ENMT: external ear and nose normal, oropharynx normal Neck: trachea midline, no thyromegaly Respiratory: no respiratory distress Auscultation: lungs clear to au scultation bilaterally; no crackles and no wheezes Cardiovascular: Rate/Rhythm: regular rate and regular rhythm; not tachycardic Heart Sounds: normal S1 and normal S2; no murmur Extremities: no edema Gastrointestinal (Abdomen): Inspection/Auscultation: normal bowel sounds; abdomen not distended Percussion/Palpation: abdomen soft; abdomen nontender Musculoskeletal: No acute arthritis in any joint Neurologic: Alert, awake and oriented x3. Anxious but no focal sensory or motor deficit appreciated Lymphatic: no cervical or axillary lymphadenopathy Results & Data Results & Data ([facility]) Vital Signs (Past 12 Hours) Vital Signs Temp Pulse Pulse Resp BP Pulse Ox 08/06/21 07:57 36.9 C 75 18 114/72 96 08/06/21 07:44 68 08/06/21 04:28 73 08/06/21 03:28 37 C 84 16 117/84 96 08/05/21 23:20 37.1 C 86 16 117/87 97 Laboratory Results Short CBC 08/06/21 Range/Units 05:39 WBC 7.65 (4.8-10.8) K/uL Hgb 11.4 L (12.0-16.0) g/dL Hct 33.7 L (37-47) % Plt Count 371 (130-400) K/uL BMP 08/05/21 08/06/21 16:10 05:39 Sodium 137 135 L Potassium 3.8 D 3.7 Chloride 103 102 Carbon Dioxide 28 28 BUN 6 L 4 L Creatinine 0.48 L 0.51 L Glucose 195 H 220 H Calcium 8.6 8.6 Liver Function 08/06/21 Range/Units 05:39 Total Bilirubin < 0.1 L (0.2-1) mg/dl AST 16 (15-37) U/L ALT 22 (12-78) Alkaline Phosphatase 48 (45-117) U/L Albumin 2.1 L (3.4-5.0) gm/dl Medications Administered Current Inpatient Medications Acetaminophen (Acetaminophen 325 Mg Tab) 650 mg PO Q4H PRN PRN Reason: Moderate Pain Stop: 09/02/21 16:27 Buspirone HCl (Buspirone 5 Mg Tab) 5 mg PO BID PRN PRN Reason: Anxiety Stop: 09/02/21 18:00 Last Admin: 08/04/21 12:05 Dose: 5 mg Documented by: Cetirizine HCl (Cetirizine Hcl 10 Mg Tablet) 10 mg PO DAILY [facility] Stop: 09/03/21 08:59 Last Admin: 08/06/21 08:33 Dose: 10 mg Documented by: Cyclobenzaprine HCl (Cyclobenzaprine Hcl 5 Mg Tab) 5 mg PO BID PRN PRN Reason: Muscle Spasm Stop: 09/02/21 18:00 Dextrose (Dextrose 50% 50 Ml Syringe) 25 - 50 ml IV UD PRN; Protocol PRN Reason: Hypoglycemia Protocol Stop: 09/02/21 16:27 Epinephrine HCl (Epinephrine Adult Auto-Inject 0.3 Mg Syr) 0.3 mg IM Q3H PRN PRN Reason: Allergic Reaction Stop: 09/02/21 18:00 Ferrous Sulfate (Ferrous Sulfate 325 Mg Tab) 325 mg PO DAILY [facility] Stop: 09/03/21 08:59 Last Admin: 08/06/21 08:33 Dose: 325 mg Documented by: Fluticasone/Vilanterol (Fluticasone/Vilanterol 200/25mcg 14 Puffs/Inhaler) 1 puffs INH DAILY [facility]; Protocol Stop: 09/03/21 08:59 Last Admin: 08/06/21 08:33 Dose: 1 puffs Documented by: Gabapentin (Gabapentin 400 Mg Cap) 400 mg PO Q24H [facility] Stop: 08/07/21 04:16 Glucagon (Glucagon For Inj 1 Mg Vial) 1 mg SQ UD PRN; Protocol PRN Reason: Hypoglycemia Protocol Stop: 09/02/21 16:27 Glucose (Glucose 10 Tabs/Tube) 4 - 8 tabs PO UD PRN; Protocol PRN Reason: Hypoglycemia Protocol Stop: 09/02/21 16:27 Glucose (Glucose 40% Gel 15 Gm Tube) 15 - 30 gm PO UD PRN; Protocol PRN Reason: Hypoglycemia Protocol Stop: 09/02/21 16:27 Ceftriaxone Sodium 1,000 mg/ (Dextrose) 50 mls @ 100 mls/hr IV Q24H [facility]; Protocol Stop: 08/08/21 16:14 Last Infusion: 08/05/21 17:21 Dose: Infused Documented by: Lorazepam (Ativan) 1 mg in 2 mls @ 2 mls/min IV UD PRN; Protocol PRN Reason: EtOH Withdrawl AWSS Score 6,7 Stop: 09/03/21 04:12 Last Admin: 08/04/21 13:54 Dose: 2 mls/min Documented by: Lorazepam (Ativan) 2 mg in 4 mls @ 4 mls/min IV UD PRN; Protocol PRN Reason: EtOH Withdrawl AWSS Score 8,9 Stop: 09/03/21 04:12 Thiamine HCl 100 mg/ Syringe 10 mls @ 2 mls/min IV QAM [facility] Stop: 09/03/21 15:29 Last Admin: 08/06/21 08:34 Dose: 2 mls/min Documented by: Folic Acid 1 mg/ Syringe 10 mls @ [facility] Stop: 09/04/21 08:59 Last Admin: 08/06/21 08:33 Dose: 5 mls/min Documented by: Insulin Aspart (Insulin Aspart Per Unit) 0 units SC [facility] Stop: 09/02/21 16:29 Last Admin: 08/06/21 08:16 Dose: 3 units Documented by: Insulin Glargine (Insulin Glargine Solostar 100 Units/Ml 3 Ml Pen) 5 units SC QAM [facility] Stop: 09/03/21 08:59 Last Admin: 08/04/21 10:21 Dose: Not Given Documented by: Miscellaneous (Carbohydrates For Hypoglycemia ) 15 - 30 gm PO UD PRN PRN Reason: Hypoglycemia Protocol Stop: 09/02/21 16:27 Miscellaneous (Viibryd: Order Awaiting Action) 1 ea N/A QS [facility] Stop: 09/03/21 00:00 Last Admin: 08/06/21 08:17 Dose: Not Given Documented by: Miscellaneous Information (Pharmacy Glycemic Mgmt Consult) 1 ea N/A UD PRN; Protocol PRN Reason: Consult Stop: 09/02/21 16:10 Montelukast Sodium (Montelukast Sodium 10 Mg Tablet) 10 mg PO HS [facility] Stop: 09/02/21 20:59 Last Admin: 08/05/21 20:55 Dose: 10 mg Documented by: Ondansetron HCl (Ondansetron Inj 2 Mg/Ml 2 Ml Vial) 4 mg IV Q4H PRN PRN Reason: Nausea And Vomiting Stop: 09/02/21 16:27 Last Admin: 08/06/21 06:43 Dose: 4 mg Documented by: Pantoprazole Sodium (Pantoprazole 40 Mg Tab) 40 mg PO QAM [facility] Stop: 09/04/21 17:44 Last Admin: 08/06/21 08:33 Dose: 40 mg Documented by: Potassium Phosphate (Pot Phosphate Monobasic W/ Sod Tab) 2 tab PO QID [facility] Stop: 09/02/21 20:59 Last Admin: 08/06/21 08:34 Dose: 2 tab Documented by: Prenat Multivit/[place]/Iron/Folic Ac ( Vitamin 1 Tab) 1 tab PO DAILY [facility] Stop: 09/03/21 08:59 Last Admin: 08/06/21 08:34 Dose: 1 tab Documented by: Vitamin D (Cholecalciferol 1,000 Units 25 Mcg Tab) 2,000 units PO DAILY [facility] Stop: 09/03/21 08:59 Last Admin: 08/06/21 08:33 Dose: 2,000 units Documented by:
[2021-08-06] MEDS ORDERED: POTASSIUM CHLORIDE CRTAB 20 MEQ TABCR PO SCH (12:30)
[2021-08-06] MEDS ORDERED: MAGNESIUM OXIDE 400 MG TAB PO SCH (12:30)
[2021-08-06] MEDS ORDERED: cephALEXin 500 MG CAP PO SCH (14:00)
[2021-08-07] MEDS ORDERED: GABAPENTIN 400 MG CAP PO SCH (04:15)
--- NOTE | 2021-08-07 08:07 | Discharge Summary ---
Date of Service August 07, 2021 Admission HPI Per Admitting Provider This is a 35 yo F with PMHx of T2DM, HTN, vitamin D deficiency, alcoholism, depression with anxiety, ADHD, tobacco abuse who presents to ED. Pt tells me that she is here for help, needing relief from anxiety and dep ression. She points to the wall beside her and says "Can he leave?" before she gives me any more information, however there is nobody present. Reports from ER indicated that she was sent here by her family for inpatient psych stay, and the pt tells me she is voluntarily staying. Pt story is difficulty to follow, as she jumps around to different topics, not chronologically making sense, and stat es something about [employer] fasting in a house with a lot of people. She reports having a hearing for a DUI scheduled tomorrow, and CM confirms this, and told the pt that the police are aware that she is hospitalized. Pt notes the last time she drank alcohol was last Monday but cannot tell me what or how much, as she began crying due to pain from a potassium rider running in. She is unable to give any other information at this time. Admission Exam Per Admitting Provider Physical Exam: General: awake, alert, no apparent distress, female Head: Normocephalic, atraumatic ENT: PERRL, EOMI, no pharyngeal exudate, mucous membranes moist Chest: Clear to auscultation, on room air, no adventitious breath sounds Cardiac: Regular rate and rhythm, no murmur, no JVD, normal peripheral pulses, good capillary refill Abdominal: NABS x 4 quadrants, soft, nondistended, nontender to palpation, no rebound or guarding Extremities: Tearful at times because K rider is running in, depressed mood and anxious affect, hallucinations with man in the room, denies suicidal or homicid al ideation Neuro: AAO x 3, strength intact bilaterally and rated 5/5, no motor deficits, speech is clear, no peripheral sensory deficits Principal Diagnosis Major depressive disorder, bipolar disorder, history of alcohol abuse, type 2 diabetes, UTI, GERD Discharge Exam Constitutional + ill appearing and average body habitus Eyes PERRL, conjunctivae normal, anicteric sclerae ENMT external ear and nose normal, oropharynx normal Neck trachea midline, no thyromegaly Respiratory no respiratory distress Auscultation: lungs clear to auscultation bilaterally; no crackles and no wheezes Cardiovascular Rate/Rhythm: regular rate and regular rhythm; not tachycardic Heart Sounds: normal S1 and normal S2; no murmur Extremities: no edema Gastrointestinal (Abdomen) Inspection/Auscultation: normal bowel sounds; abdomen not distended Percussion/Palpation: abdomen soft; abdomen nontender Lymphatic no cervical or axillary lymphadenopathy Discharge Data Allergies Allergy/AdvReac Type Severity Reaction Status Date / Time bee venom protein (honey bee) Allergy Unknown ANAPHYLAXIS Verified 04/05/21 14:24 Consultations 08/03/21 15:24 ED Decision to Admit Stat 08/03/21 16:11 Consult Psychiatry Routine Ordered Studies 08/03/21 16:11 CT head/brain wo con Routine Hospital Course (1) Major depressive disorder: -Presented with altered mental status and having hallucination at times with flight of ideas -Has been under one-to-one supervision and has not been aggressive -Appreciate psychiatrist input and recommendation -Continue current plan of care -She is agreeable to go to inpatient psychiatric floor for continued care -Medically stable to be transferred -She will be discharged to the psych floor this afternoon (2) Alcohol abuse: -History of such, last time she drank was last Monday per her report however unknown based off of her current status if this is true -Psychotic symptoms are complicated with withdrawal symptoms from alcohol -Might have Warnicke encephalopathy and has been getting thiamine for that -Gabapentin withdrawal protocol initiated -Ativan doses have been reduced as needed -Does not have any symptoms of withdrawal -We will continue thiamine and folic acid (3) DMII (diabetes mellitus, type 2): - Glucose was 390 upon arrival, administered 10 U insulin and NSS and has improved to 169 - will continue fluids, potassium, and follow BMP Q4H - Glycemic pharmacy consulted -Blood sugar seems to be stable -Her hemoglobin AIC is 6.8 (4) Hyponatremia: - NSS on board, will trend BMP - Likely worse due to recent nausea and vomiting -Sodium level has been neutralized (5) Hypokalemia: - EKG reviewed, no signs of ischemia or -Replaced via p.o. and IV in the ER, secondary to nausea and vomiting -We will replace further potassium -We will monitor potassium level and magnesium level -We will give regular supplement on discharge (6) GERD (gastroesophageal reflux disease): -History of such, chronic and stable -Has been getting PPI (7) UTI (urinary tract infection): -UA appears to be dirty, follow urine culture, start on IV ceftriaxone -Urine culture is growing gram-negative bacilli-continue ceftriaxone for now -Urine culture is growing E. coli resistant to ciprofloxacin -We will change antibiotic to Keflex on discharge DVT ppx: - ambulatory CODE: Full Dispo: From home, possible inpatient psych after electrolyte abnormalities improved Will be transferred to psych floor this evening or tomorrow She will be transferred to psych floor this afternoon Total Time Total Time Spent Total Time Spent (In Minutes): 40 minutes Discharge Plan Discharge Items Patient Disposition: Transfer Behavioral Health Fac Reason For Visit: [facility] Discharge Diagnosis: Major depressive disorder, bipolar disorder, history of alcohol abuse, type 2 diabetes, UTI, GERD Condition on Discharge: Fair Activity: Resume your previous activity Non-emergency contact: Primary Care Provider Call non-emergency contact if: you have any medication questions and your symptoms worsen Follow-up/Referrals: Harinder Nathan, [Primary Care Provider] - (Please make an appointment within 7 days with your PCP following discharge from the facility) Diet: Regular Addtl Attending Provider Instructions: Please take precautions to avoid fall Take your medications as advised All of her home medications were temporarily discontinued and her inpatient medications will be continued on transfer Current Inpatient Medications Acetaminophen (Acetaminophen 325 Mg Tab) 650 mg PO Q4H PRN PRN Reason: Moderate Pain Stop: 09/02/21 16:27 Buspirone HCl (Buspirone 5 Mg Tab) 5 mg PO BID PRN PRN Reason: Anxiety Stop: 09/02/21 18:00 Last Admin: 08/04/21 12:05 Dose: 5 mg Documented by: Cephalexin HCl (Cephalexin 500 Mg Cap) 500 mg PO TID GEOVANNA Stop: 08/11/21 13:59 Cetirizine HCl (Cetirizine Hcl 10 Mg Tablet) 10 mg PO DAILY [facility] Stop: 09/03/21 08:59 Last Admin: 08/06/21 08:33 Dose: 10 mg Documented by: Cyclobenzaprine HCl (Cyclobenzaprine Hcl 5 Mg Tab) 5 mg PO BID PRN PRN Reason: Muscle Spasm Stop: 09/02/21 18:00 Dextrose (Dextrose 50% 50 Ml Syringe) 25 - 50 ml IV UD PRN; Protocol PRN Reason: Hypoglycemia Protocol Stop: 09/02/21 16:27 Epinephrine HCl (Epinephrine Adult Auto-Inject 0.3 Mg Syr) 0.3 mg IM Q3H PRN PRN Reason: Allergic Reaction Stop: 09/02/21 18:00 Ferrous Sulfate (Ferrous Sulfate 325 Mg Tab) 325 mg PO DAILY [facility] Stop: 09/03/21 08:59 Last Admin: 08/06/21 08:33 Dose: 325 mg Documented by: Fluticasone/Vilanterol (Fluticasone/Vilanterol 200/25mcg 14 Puffs/Inhaler) 1 puffs INH DAILY [facility]; Protocol Stop: 09/03/21 08:59 Last Admin: 08/06/21 08:33 Dose: 1 puffs Documented by: Folic Acid (Folic Acid 400 Mcg Tab) 400 mcg PO QAM [facility] Stop: 09/06/21 08:59 Glucagon (Glucagon For Inj 1 Mg Vial) 1 mg SQ UD PRN; Protocol PRN Reason: Hypoglycemia Protocol Stop: 09/02/21 16:27 Glucose (Glucose 10 Tabs/Tube) 4 - 8 tabs PO UD PRN; Protocol PRN Reason: Hypoglycemia Protocol Stop: 09/02/21 16:27 Glucose (Glucose 40% Gel 15 Gm Tube) 15 - 30 gm PO UD PRN; Protocol PRN Reason: Hypoglycemia Protocol Stop: 09/02/21 16:27 Insulin Aspart (Insulin Aspart Per Unit) 0 units SC ACHS [facility] Stop: 09/02/21 16:29 Last Admin: 08/06/21 08:16 Dose: 3 units Documented by: Insulin Glargine (Insulin Glargine Solostar 100 Units/Ml 3 Ml Pen) 5 units SC [facility] Stop: 09/03/21 08:59 Last Admin: 08/04/21 10:21 Dose: Not Given Documented by: Magnesium Oxide (Magnesium Oxide 400 Mg Tab) 400 mg PO QAM [facility] Stop: 09/05/21 12:29 Miscellaneous (Carbohydrates For Hypoglycemia ) 15 - 30 gm PO UD PRN PRN Reason: Hypoglycemia Protocol Stop: 09/02/21 16:27 Miscellaneous (Viibryd: Order Awaiting Action) 1 ea N/A QS [facility] Stop: 09/03/21 00:00 Last Admin: 08/06/21 08:17 Dose: Not Given Documented by: Miscellaneous Information (Pharmacy Glycemic Mgmt Consult) 1 ea N/A UD PRN; Protocol PRN Reason: Consult Stop: 09/02/21 16:10 Montelukast Sodium (Montelukast Sodium 10 Mg Tablet) 10 mg PO HS [facility] Stop: 09/02/21 20:59 Last Admin: 08/05/21 20:55 Dose: 10 mg Documented by: Ondansetron HCl (Ondansetron Inj 2 Mg/Ml 2 Ml Vial) 4 mg IV Q4H PRN PRN Reason: Nausea And Vomiting Stop: 09/02/21 16:27 Last Admin: 08/06/21 06:43 Dose: 4 mg Documented by: Pantoprazole Sodium (Pantoprazole 40 Mg Tab) 40 mg PO QAM [facility] Stop: 09/04/21 17:44 Last Admin: 08/06/21 08:33 Dose: 40 mg Documented by: Potassium Chloride (Potassium Chloride Crtab 20 Meq Tabcr) 20 meq PO QAM [facility] Stop: 09/05/21 12:29 Potassium Phosphate (Pot Phosphate Monobasic W/ Sod Tab) 2 tab PO QID [facility] Stop: 09/02/21 20:59 Last Admin: 08/06/21 08:34 Dose: 2 tab Documented by: Thiamine HCl (Thiamine Hcl 50 Mg Tablet) 50 mg PO QAM [facility] Stop: 09/06/21 08:59 Vitamin D (Cholecalciferol 1,000 Units 25 Mcg Tab) 2,000 units PO DAILY [facility] Stop: 09/03/21 08:59 Last Admin: 08/06/21 08:33 Dose: 2,000 units Documented by: Pending Studies at Discharge: No Stand-Alone Forms: My [facility] Skilled Items DNR: No Lines: None Urinary Catheter: No Medications and DC Order Prescriptions: Discontinued insulin lispro 100 unit/mL insulin pen 5 unit subcut AC RF: 0 Lantus Solostar U-100 Insulin 100 unit/mL (3 mL) insulin pen 10 unit subcut DIRECTED RF: 0 montelukast 10 mg Tablet 10 mg PO HS RF: 0 hydroxyzine HCl 50 mg tablet 50 mg PO BID PRN (Reason: Anxiety) RF: 0 cyclobenzaprine 5 mg tablet 5 mg PO BID PRN (Reason: Muscle Spasm) RF: 0 cetirizine 10 mg tablet 10 mg PO DAILY RF: 0 ferrous sulfate 325 mg (65 mg iron) Tablet,Delayed Release (Dr/Ec) 325 mg PO DAILY RF: 0 epinephrine [EpiPen 2-Jason] 0.3 mg/0.3 mL Auto-Injector 0.3 mg IM Q3H PRN (Reason: Allergic Reaction) RF: 0 Viibryd 40 mg tablet 40 mg PO DAILY RF: 0 Virt-Phos 250 Neutral 130 mg 2 tab PO QID RF: 0 buspirone 5 mg tablet 5 mg PO BID PRN (Reason: Anxiety) RF: 0 fluticasone propion-salmeterol 250-50 mcg/dose blister with device 1 inh INHALATION BID RF: 0 levocetirizine 5 mg tablet 5 mg PO HS RF: 0 cholecalciferol (vitamin D3) 50 mcg (2,000 unit) Capsule 50 mcg PO DAILY RF: 0 No Action Viibryd 40 mg tablet 40 mg PO DAILY RF: 0 hydroxyzine HCl 50 mg tablet 50 mg PO BID PRN (Reason: Anxiety) RF: 0 cyclobenzaprine 5 mg tablet 5 mg PO BID RF: 0 insulin lispro 100 unit/mL solution RF: 0 Lantus Solostar U-100 Insulin 100 unit/mL (3 mL) insulin pen SUBCUT RF: 0 Discharge Orders: Discharge Order (Routine); Ordered 08/06/21 Ordered By: Xiomy Valdez Admission Data Admit Date/Time: 08/03/21 15:35 Attending Provider: Xiomy Valdez Admit Provider: Eligio Noel Primary Care Provider: Harinder Nathan Other Providers: Eligio Noel ; Leola Alves
[2021-08-07 08:57] LABS: Marijuana Quant, GCMS Urine 2845 ng/mL (<5)
[2021-08-07] MEDS ORDERED: THIAMINE HCL 50 MG TABLET PO SCH (09:00)
[2021-08-07] MEDS ORDERED: FOLIC ACID 400 MCG TAB PO SCH (09:00)
== END 2021-08-06 14:28 | DRG 637 ==
LOC: ED 12:26 → EDINP 15:35 → SUATTDRO 15:35 → EDINP 20:29 → 2N 21:09

== ENCOUNTER 2021-08-06 14:36 | Inpatient (IN) ==
[2021-08-06] MEDS ORDERED: ACETAMINOPHEN 325 MG TAB PO PRN (14:51)
[2021-08-06] MEDS ORDERED: BISMUTH SUBSALICYLATE LIQD 236 ML PO PRN (14:51)
[2021-08-06] MEDS ORDERED: hydrOXYzine HCl 25 MG TAB PO PRN ×2 (14:51)
[2021-08-06] MEDS ORDERED: SODIUM CHLORIDE 0.65% NA SOLN 45 ML (OCEAN) PRN (14:51)
[2021-08-06] MEDS ORDERED: ALUMINUM/MAGNESIUM SUSP 30 ML UDC PO PRN (14:51)
[2021-08-06] MEDS ORDERED: MAGNESIUM HYDROXIDE SUSP 30 ML UDC PO PRN (14:51)
[2021-08-06] MEDS ORDERED: PHARMACY GLYCEMIC MGMT CONSULT PRN (16:43)
[2021-08-06] MEDS ORDERED: CARBOHYDRATES FOR HYPOGLYCEMIA PO PRN (17:00)
[2021-08-06] MEDS ORDERED: GLUCAGON FOR INJ 1 MG VIAL IM PRN (17:00)
[2021-08-06] MEDS ORDERED: DEXTROSE 50% 50 ML SYRINGE IV PRN (17:00)
[2021-08-06] MEDS ORDERED: GLUCOSE 10 TABS/TUBE PO PRN (17:00)
[2021-08-06] MEDS ORDERED: GLUCOSE 40% GEL 15 GM TUBE PO PRN (17:00)
[2021-08-06] MEDS: INSULIN ASPART 100 UNITS/ML VIAL SC SCH ×2 (17:30→21:28)
--- NOTE | 2021-08-06 20:24 | Pharmacy Report ---
Pharmacy Glycemic Short Note 2 - Date of Service August 06, 2021 - Glycemic Short OUTPATIENT ANTIDIABETIC REGIMEN: * Lantus 10 units SC AM * Humalog 5 units SC prior to largest meal * HbA1c = 6.8% (08/04/21) ASSESSMENT: 08/06: * Patient was transferred from [address] [place] [address] [place] which required her to be discharged from the previous account number. * BSGs have been maintained with bolus insulin only. Patient requiring ~8 units per day of Novolog. Will continue with current bolus parameters. No need for basal at this time. 08/04: * 35 yo F admitted for mood/behavior disorder and hallucinations. Patient with history of type 2 diabetes managed at home on basal Lantus and Humalog. * Patient was hyperglycemic on admission yesterday. A single dose of regular insulin 10 units SC dropped her blood sugar to 62 mg/dL at dinner time. * BSGs trended up to 171 mg/dL later in the night yesterday. * Fasting BSG today was 193 mg/dL. A small Lantus dose of 5 units based on wt and mild stress factor was ordered this AM but this was held by doctor due to patient's lethargy. Re-assess basal dose tomorrow. * Novolog parameters tightened with dinner today although patient has been eating very little. PLAN FOR INPATIENT GLYCEMIC CONTROL: * Basal insulin * None * Bolus insulin * NovoLog per scale ACHS or Q6hrs while NPO * Goal Range: Low 120 mg/dL - High 150 mg/dL * Correction Factor: 40 mg/dL/unit * Nutritional / Prandial insulin per carb ratio of 1 unit per 25 grams CHO consumed PLAN FOR DISCHARGE: * HbA1c of 6.8% is at goal for this patient. No changes recommended in outpatient regimen upon discharge.
[2021-08-06] MEDS ORDERED: cephALEXin 500 MG CAP PO SCH (21:00)
[2021-08-06] MEDS ORDERED: MONTELUKAST SODIUM 10 MG TABLET PO SCH (22:00)
[2021-08-07] MEDS ORDERED: CHOLECALCIFEROL 1,000 UNITS 25 MCG TAB PO SCH (09:00)
[2021-08-07] MEDS ORDERED: FLUTICASONE/VILANTEROL 200/25MCG 14 PUFFS/INHALER INH SCH (09:00)
[2021-08-07] MEDS ORDERED: CETIRIZINE HCL 10 MG TABLET PO SCH (09:00)
[2021-08-07] MEDS ORDERED: FOLIC ACID 400 MCG TAB PO SCH (09:00)
[2021-08-07] MEDS ORDERED: PANTOprazole 40 MG TAB PO SCH (09:00)
[2021-08-07] MEDS ORDERED: POTASSIUM CHLORIDE CRTAB 20 MEQ TABCR PO SCH (09:00)
[2021-08-07] MEDS ORDERED: MULTIVITAMIN TAB PO SCH (09:00)
[2021-08-07] MEDS ORDERED: MAGNESIUM OXIDE 400 MG TAB PO SCH (09:00)
[2021-08-07] MEDS ORDERED: THIAMINE HCL 100 MG TAB PO SCH (09:00)
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
[2021-08-07] MEDS: INSULIN ASPART 100 UNITS/ML VIAL SC SCH ×2 (11:11→14:21)
--- NOTE | 2021-08-07 11:59 | CT Scan Report ---
CT abd pelvis wo con CLINICAL HISTORY: R/O Acute Pancreatitis TECHNIQUE: Helical axial images of the abdomen and pelvis were obtained. Automated dose lowering tech niques and/or adjustment according to patient size were utilized for this exam. This exam was perfor med without intravenous contrast. COMPARISON: Comparison is made to CT abdomen pelvis 08/19/2019 FINDINGS: Lower chest: Bilateral Liver: Unremarkable. No focal lesions are seen. Gallbladder and biliary tree: No calcified gallstones. Normal caliber wall. No intra- or extrahepatic biliary ductal dilation. Pancreas: There is edema and enlargement of the pancreas with peripancreatic stranding. There is an i ll-defined fluid collection adjacent to the pancreas. Spleen: Unremarkable. Adrenals: Unremarkable. Kidneys and ureters: Unremarkable. Bladder: Unremarkable. Reproductive organs: A calcified fibroid is incidentally noted. Bowel: Unremarkable. Lymph nodes Retroperitoneal: Unremarkable. Mesenteric: Unremarkable. Pelvic: Unremarkable. Peritoneum: Normal Vessels: Unremarkable. Abdominal wall: A fat-containing umbilical hernia is seen. Bones: Unremarkable. IMPRESSION: Findings compatible with acute pancreatitis. Well-defined fluid density lesions around the pancreas m ay represent acute peripancreatic fluid collection versus acute necrotic collection. ACT 112: Negative or not required by law. Electronically signed by: Fausto Garcia M.D. 08/07/2021 11:58 AM
[2021-08-07 12:05] LABS: Basophils # (auto) 0.01 K/uL (0-0.2); Basophils % (auto) 0.1 %; Eosinophils # (auto) 0.12 K/uL (0-0.5); Eosinophils % (auto) 1.1 %; Hematocrit (blood only) 37.5 % (37-47); Hemoglobin 12.7 g/dL (12.0-16.0); Immature Granulocytes # (auto) 0.11 K/uL (0.00-0.02); Lymphocytes # (auto) 1.46 K/uL (1.2-3.4); Lymphocytes % (auto) 13.3 %; Mean Corpuscular Hemoglobin 32.3 pg (25-34); Mean Corpuscular Hgb Conc 33.9 g/dL (32-36); Mean Corpuscular Volume 95.4 fL (80-100); Monocytes # (auto) 0.66 K/uL (0.11-0.59); Neutrophils % (auto) 78.5 %; Platelet Count 493 K/uL (130-400); RDW Coefficient of Variation 12.4 % (11.5-14.5); RDW Standard Deviation 43.3 fL (36.4-46.3); Red Blood Count 3.93 M/uL (4.2-5.4); White Blood Count 10.96 K/uL (4.8-10.8)
[2021-08-07] MEDS ORDERED: HYDROmorphone INJ 0.5 MG/0.5 ML SYR IV PRN (12:11)
[2021-08-07] MEDS ORDERED: PIPERACILL/TAZOBAC CONSULT ACTIVE PRN (12:11)
[2021-08-07] MEDS ORDERED: ondansetron HCL 6 MG in DEXTROSE 5% 50 ML IV PRN (12:11)
[2021-08-07 12:23] LABS: Albumin Level 2.5 gm/dl (3.4-5.0); BUN Creatinine Ratio 6.6 (10-20); Calcium 9.4 mg/dl (8.5-10.1); Creatinine Clr Calc Pharmacy 119.5 ml/min; Est GFR (African American) 141.8 ml/min; Est GFR (Non-African American) 122.4 ml/min
[2021-08-07 12:25] LABS: Albumin Globulin Ratio 0.5 (0.9-2); Bilirubin,Total 0.2 mg/dl (0.2-1); Globulin 4.7 gm/dl (2.5-4.0); Total Protein 7.2 gm/dl (6.4-8.2)
[2021-08-07] MEDS ORDERED: PIPERACILLIN/TAZOBACTAM 3.375 GM in DEXTROSE 5% 100 ML IV ONE (12:30)
[2021-08-07] MEDS ORDERED: PANTOprazole 40 MG in SYRINGE 0 ML IV SCH (12:30)
[2021-08-07] MEDS ORDERED: NSS + 20MEQ KCL 20 MEQ/1,000 ML BAG IV SCH (12:30)
--- NOTE | 2021-08-07 13:27 | Hospitalist Consultation ---
Date of Consultation August 07, 2021 Assessment & Plan (1) Acute recurrent pancreatitis: Abdominal pain with nausea vomiting since this morning CT of the abdomen and pelvis did show acute pancreatitis with peripancreatic fluid and the lipase was elevated with minimally elevated white count She was started with intravenous fluid and intravenous Zosyn She will be transferred to medical floor with telemetry N.p.o., IV fluid and pain medications as needed GI consult tomorrow if condition does not get any better (2) Alcohol use disorder, moderate, dependence: History of alcohol abuse and associated pancreatitis Does not have any withdrawal symptoms Has had recent electrolyte imbalance which was corrected We will check electrolytes and give any medications for possible withdrawal (3) Post traumatic stress disorder (PTSD): Has significant psychiatric history She was transferred to psychiatric floor yesterday for continuation of her psych care We will try to continue her current medications as per psychiatrist She will go back to psych floor when medically stable (4) Insulin dependent diabetes mellitus: Has diabetes and requires insulin We will continue with sliding scale insulin coverage Glycemic pharmacist will be consulted She remains n.p.o. for now (5) ANGE (generalized anxiety disorder): As above (6) Unspecified mood [affective] disorder: As above Has ADHD as well and major depressive disorder (7) UTI (urinary tract infection): Noted to have UTI during this admission in the hospital Developing E. coli and wheezes reasonably pansensitive to antibiotics except ofloxacin Her medication was changed to oral Keflex which will be discontinued She has been started with intravenous Zosyn to cover UTI and for pancreatitis DVT prophylaxis Subcu heparin CODE STATUS Full History of Present Illness Reason for Consultation: Acute abdominal pain with nausea and vomiting since this morning Attending Physician: Kamila Dye MD History of Present Illness She is a 35-year-old female with significant past medical history of type 2 diabetes, hypertension, depression with anxiety, ADHD and also history of alcoholism with pancreatitis in the past apparently was transferred to psych floor yesterday for continuation of her psychiatric problem. She was seen by her psychiatrist this morning and complained to have severe epigastric pain that is going to the back associated with nausea and she vomited x2 and hospital medicine was consulted. She has had this episode of similar symptoms in the past and was diagnosed with acute pancreatitis. Denies any fever and/or chills. No abdominal distention and no shortness of breath. CT scan did show acute pancreatitis and she was transferred to medical telemetry unit for continuation of care Allergies Allergy/AdvReac Type Severity Reaction Status Date / Time bee venom protein (honey bee) Allergy Unknown ANAPHYLAXIS Verified 04/05/21 14:24 Home Medications Medication Instructions Recorded Confirmed Type cyclobenzaprine 5 mg tablet 5 mg PO BID 08/06/21 08/06/21 History hydroxyzine HCl 50 mg tablet 50 mg PO BID PRN 08/06/21 08/06/21 History insulin glargine 100 unit/mL (3 unit SUBCUT 08/06/21 History mL) subcutaneous pen (Lantus Solostar U-100 Insulin) insulin lispro 100 unit/mL 08/06/21 History subcutaneous solution vilazodone 40 mg tablet (Viibryd) 40 mg PO DAILY 08/06/21 08/06/21 History Patient History Medical History (Updated 08/07/21 @ 13:21 by Xiomy Valdez MD) Anxiety H/O Asthma Cardiac murmur CONGENITAL -- BENIGN. 10/09/15 echo: The examination is adequate to evaluate the referral indication. The qualitative LV ejection fraction is 60-64% (normal). The left ventricular diastolic function is normal. No significant valvular disease is present. Depression H/O Diabetes GERD (gastroesophageal reflux disease) R/T Gestational diabetes Scoliosis MINOR Surgical History History of adenoidectomy History of section x 2 History of tonsillectomy Family History Other Adopted Social History Smoking Status: Current every day smoker Tobacco Type: Cigarettes Cigarettes Per Day: 1-2; Second Hand Exposure: Yes; Hx Alcohol Use: Yes Alcohol type: wine Hx Substance Use: Yes Prescribed Medications: Marijuana Last Used Substance: Hours (ago) Last Used Substance Other:: Last used this AM Preferred Language: Fijian 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: Effective Die Maker Bench Stamping Required: No Beliefs That Will Affect Care: None Current Living Situation: Family Current Living Situation Comment: lives w/ kids 2 and 5 Feels Safe at Home: Yes Assistive Devices: None Review of Systems Review of Systems: All systems reviewed & are unremarkable except as noted in HPI & below Physical Exam Physical Exam: Lying in bed with acute pain in the abdomen Constitutional: + ill appearing and + thin Eyes: PERRL, conjunctivae normal, anicteric sclerae ENMT: external ear and nose normal, oropharynx normal Neck: trachea midline, no thyromegaly Respiratory: no respiratory distress Auscultation: lungs clear to auscultation bilaterally Cardiovascular: Rate/Rhythm: regular rate and regular rhythm; not tachycardic Heart Sounds: normal S1 and normal S2; no murmur Extremities: no edema Gastrointestinal (Abdomen): Inspection/Auscultation: normal bowel sounds; abdomen not distended Percussion/Palpation: + abdomen tender (In the epigastrium without guarding and no rigidity) and abdomen soft Musculoskeletal: No acute arthritis in any joint Neurologic: Alert, awake and oriented x3 No focal sensory or motor deficit appreciated Lymphatic: no cervical or axillary lymphadenopathy Results & Data Results & Data ([facility]) Vital Signs (Past 12 Hours) Vital Signs Temp Pulse Resp BP 08/07/21 06:50 82 120/80 08/07/21 06:49 37 C 67 18 117/79 Laboratory Results Short CBC 08/07/21 Range/Units 11:57 WBC 10.96 H (4.8-10.8) K/uL Hgb 12.7 (12.0-16.0) g/dL Hct 37.5 (37-47) % Plt Count 493 H (130-400) K/uL BMP 08/07/21 11:57 Sodium 136 Potassium 4.0 Chloride 102 Carbon Dioxide 29 BUN 4 L Creatinine 0.55 L Glucose 212 H Calcium 9.4 Liver Function 08/07/21 Range/Units 11:57 Total Bilirubin 0.2 (0.2-1) mg/dl AST 21 (15-37) U/L ALT 26 (12-78) Alkaline Phosphatase 49 (45-117) U/L Albumin 2.5 L (3.4-5.0) gm/dl Medications Administered Current Inpatient Medications Acetaminophen (Acetaminophen 325 Mg Tab) 650 mg PO Q4H PRN PRN Reason: Headache or Minor Fever Stop: 09/05/21 14:50 Al Hydrox/Mg Hydrox/Simethicone (Aluminum/Magnesium Susp 30 Ml Udc) 30 ml PO Q4H PRN PRN Reason: GI Upset Stop: 09/05/21 14:50 Bismuth Subsalicylate (Bismuth Subsalicylate Liqd 236 Ml) 15 ml PO PRN PRN PRN Reason: Loose Stool Stop: 09/05/21 14:50 Cephalexin HCl (Cephalexin 500 Mg Cap) 500 mg PO TID GEOVANNA Stop: 08/11/21 13:55 Last Admin: 08/06/21 21:16 Dose: 500 mg Documented by: Cetirizine HCl (Cetirizine Hcl 10 Mg Tablet) 10 mg PO QAM GEOVANNA Stop: 09/06/21 08:59 Dextrose (Dextrose 50% 50 Ml Syringe) 25 - 50 ml IV UD PRN; Protocol PRN Reason: Hypoglycemia Protocol Stop: 09/05/21 16:59 Fluticasone/Vilanterol (Fluticasone/Vilanterol 200/25mcg 14 Puffs/Inhaler) 1 puffs INH DAILY GEOVANNA Stop: 09/06/21 08:59 Folic Acid (Folic Acid 400 Mcg Tab) 400 mcg PO QAM GEOVANNA Stop: 09/06/21 08:59 Glucagon (Glucagon For Inj 1 Mg Vial) 1 mg IM UD PRN; Protocol PRN Reason: Hypoglycemia Protocol Stop: 09/05/21 16:59 Glucose (Glucose 40% Gel 15 Gm Tube) 15 - 30 gm PO UD PRN; Protocol PRN Reason: Hypoglycemia Protocol Stop: 09/05/21 16:59 Glucose (Glucose 10 Tabs/Tube) 4 - 8 tabs PO UD PRN; Protocol PRN Reason: Hypoglycemia Protocol Stop: 09/05/21 16:59 Hydromorphone HCl (Hydromorphone Inj 0.5 Mg/0.5 Ml Syr) 0.25 mg IV Q6H PRN PRN Reason: Pain Stop: 08/21/21 12:10 Hydroxyzine HCl (Hydroxyzine Hcl 25 Mg Tab) 50 mg PO HSZ PRN PRN Reason: Insomnia Stop: 09/05/21 14:50 Hydroxyzine HCl (Hydroxyzine Hcl 25 Mg Tab) 25 mg PO Q4H PRN PRN Reason: Anxiety Stop: 09/05/21 14:50 Pantoprazole Sodium 40 mg/ (Syringe) 10 mls @ 5 mls/min IV BID GEOVANNA Stop: 09/06/21 12:29 Thiamine HCl 100 mg/ Syringe 10 mls @ 2 mls/min IV QAM GEOVANNA Stop: 09/07/21 08:59 Folic Acid 1 mg/ Syringe 10 mls @ 5 [facility] Stop: 09/07/21 08:59 Ondansetron HCl 6 mg/ Dextrose 53 mls @ 200 mls/hr IV Q6H PRN PRN Reason: Nausea And Vomiting Stop: 09/06/21 12:10 Potassium Chloride/Sodium Chloride (Normal Saline W/20 Meq Kcl) 20 meq in 1,000 mls @ 125 mls/hr IV .Q8H [facility]; Protocol Stop: 08/08/21 20:29 Piperacillin Sod/Tazobactam (Sod 3.375 gm/ Dextrose) 115 mls @ 28.75 mls/hr IV Q8H [facility]; Protocol Stop: 08/17/21 17:59 Insulin Aspart (Insulin Aspart 100 Units/Ml Vial) 0 units [facility]; Protocol Stop: 09/05/21 17:14 Last Admin: 08/07/21 11:11 Dose: Not Given Documented by: Magnesium Hydroxide (Magnesium Hydroxide Susp 30 Ml Udc) 30 ml PO DAILY PRN PRN Reason: Constipation Stop: 09/05/21 14:50 Magnesium Oxide (Magnesium Oxide 400 Mg Tab) 400 mg PO [facility] Stop: 09/06/21 08:59 Miscellaneous (Carbohydrates For Hypoglycemia ) 15 - 30 gm PO UD PRN PRN Reason: Hypoglycemia Treatment Stop: 09/05/21 16:59 Miscellaneous Information (Pharmacy Glycemic Mgmt Consult) 1 ea N/A UD PRN PRN Reason: Consult Stop: 09/05/21 16:42 Miscellaneous Information (Piperacill/Tazobac Consult Active) 1 ea N/A UD PRN PRN Reason: Consult Stop: 09/06/21 12:10 Montelukast Sodium (Montelukast Sodium 10 Mg Tablet) 10 mg PO [facility] Stop: 09/05/21 21:59 Last Admin: 08/06/21 21:16 Dose: 10 mg Documented by: Multivitamins (Multivitamin Tab) 1 tab PO [facility] Stop: 09/06/21 08:59 Pantoprazole Sodium (Pantoprazole 40 Mg Tab) 40 mg PO [facility] Stop: 09/06/21 08:59 Potassium Chloride (Potassium Chloride Crtab 20 Meq Tabcr) 20 meq PO [facility] Stop: 09/06/21 08:59 Sodium Chloride (Sodium Chloride 0.65% Na Soln 45 Ml ([place])) 1 - 2 sprays NA PRN PRN PRN Reason: Nasal Dryness/Congestion Stop: 09/05/21 14:50 Thiamine HCl (Thiamine Hcl 100 Mg Tab) 100 mg PO QAM GEOVANNA Stop: 09/06/21 08:59 Vitamin D (Cholecalciferol 1,000 Units 25 Mcg Tab) 2,000 units PO QAM GEOVANNA Stop: 09/06/21 08:59
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
[2021-08-07] MEDS ORDERED: PIPERACILLIN/TAZOBACTAM 3.375 GM in DEXTROSE 5% 100 ML IV SCH (18:00)
[2021-08-08] MEDS ORDERED: FOLIC ACID 1 MG in SYRINGE 9.8 ML IV SCH (09:00)
[2021-08-08] MEDS ORDERED: THIAMINE HCL 100 MG in SYRINGE 9 ML IV SCH (09:00)
== END 2021-08-07 14:30 | disposition short-term general hospital (02) | DRG 885 ==
LOC: 3S 14:36

== ENCOUNTER 2021-08-07 14:40 | Inpatient (IN) ==
[2021-08-07] MEDS ORDERED: LORazepam 0.5 MG/1 ML VIAL IV PRN (15:00)
[2021-08-07] MEDS ORDERED: PIPERACILL/TAZOBAC CONSULT ACTIVE PRN (15:00)
[2021-08-07] MEDS: HYDROmorphone INJ 0.5 MG/0.5 ML SYR IV PRN ×2 (15:33→22:05)
[2021-08-07] MEDS: NSS + 20MEQ KCL 20 MEQ/1,000 ML BAG IV SCH (15:53)
[2021-08-07] MEDS: FOLIC ACID 1 MG in SYRINGE 9.8 ML IV SCH (15:54)
[2021-08-07] MEDS: THIAMINE HCL 100 MG in SYRINGE 9 ML IV SCH (15:54)
[2021-08-07] MEDS ORDERED: PIPERACILLIN/TAZOBACTAM 3.375 GM in DEXTROSE 5% 100 ML IV ONE (16:00)
[2021-08-07] MEDS: ondansetron HCL 6 MG in DEXTROSE 5% 50 ML IV PRN (16:32)
[2021-08-07] MEDS: PIPERACILLIN/TAZOBACTAM 3.375 GM in DEXTROSE 5% 100 ML IV SCH (20:43)
[2021-08-07] MEDS: PANTOprazole 40 MG in SYRINGE 0 ML IV SCH (21:50)
[2021-08-07] MEDS: HEPARIN SOD 5,000 UNIT/0.5 ML VIAL SQ SCH (21:51)
[2021-08-08] MEDS: NSS + 20MEQ KCL 20 MEQ/1,000 ML BAG IV SCH ×4 (00:50→21:48)
[2021-08-08] MEDS: ondansetron HCL 6 MG in DEXTROSE 5% 50 ML IV PRN (00:57)
[2021-08-08] MEDS: PIPERACILLIN/TAZOBACTAM 3.375 GM in DEXTROSE 5% 100 ML IV SCH ×3 (04:45→21:07)
[2021-08-08] MEDS: HYDROmorphone INJ 0.5 MG/0.5 ML SYR IV PRN ×2 (04:50→14:19)
[2021-08-08 06:12] LABS: Basophils # (auto) 0.01 K/uL (0-0.2); Basophils % (auto) 0.1 %; Eosinophils # (auto) 0.16 K/uL (0-0.5); Eosinophils % (auto) 1.4 %; Hematocrit (blood only) 34.3 % (37-47); Hemoglobin 11.5 g/dL (12.0-16.0); Immature Granulocytes # (auto) 0.06 K/uL (0.00-0.02); Immature Granulocytes % (auto) 0.5 %; Lymphocytes # (auto) 2.26 K/uL (1.2-3.4); Lymphocytes % (auto) 20.4 %; Mean Corpuscular Hemoglobin 32.8 pg (25-34); Mean Corpuscular Hgb Conc 33.5 g/dL (32-36); Mean Corpuscular Volume 97.7 fL (80-100); Mean Platelet Volume 10.1 fL (7.4-10.4); Monocytes # (auto) 0.67 K/uL (0.11-0.59); Neutrophils # (auto) 7.92 K/uL (1.4-6.5); Neutrophils % (auto) 71.6 %; Platelet Count 459 K/uL (130-400); RDW Coefficient of Variation 12.7 % (11.5-14.5); RDW Standard Deviation 45.2 fL (36.4-46.3); Red Blood Count 3.51 M/uL (4.2-5.4); White Blood Count 11.08 K/uL (4.8-10.8)
[2021-08-08 06:36] LABS: BUN Creatinine Ratio 7.1 (10-20); Blood Urea Nitrogen 3 mg/dl (7-18); Calcium 8.5 mg/dl (8.5-10.1); Carbon Dioxide 25 mmol/L (21-32); Chloride 108 mmol/L (98-107); Creatinine Clr Calc Pharmacy 145.9 ml/min; Est GFR (African American) > 150.0 ml/min; Est GFR (Non-African American) 134.8 ml/min; Glucose 162 mg/dl (70-99); Magnesium 1.4 mg/dl (1.8-2.4); Potassium 4.4 mmol/L (3.5-5.1); Sodium 139 mmol/L (136-145)
[2021-08-08 06:39] LABS: Lipase 1492 U/L (73-393); Phosphorus 3.1 mg/dl (2.5-4.9)
[2021-08-08] MEDS: FOLIC ACID 1 MG in SYRINGE 9.8 ML IV SCH (07:35)
[2021-08-08] MEDS: THIAMINE HCL 100 MG in SYRINGE 9 ML IV SCH (07:35)
[2021-08-08] MEDS: PANTOprazole 40 MG in SYRINGE 0 ML IV SCH ×2 (07:35→21:08)
[2021-08-08] MEDS: HEPARIN SOD 5,000 UNIT/0.5 ML VIAL SQ SCH ×2 (07:36→21:08)
[2021-08-08] MEDS ORDERED: MAGNESIUM SULFATE / D5W 1 GM/100 ML BAG IV ONE (08:30)
--- NOTE | 2021-08-08 12:14 | Psychiatric Consultation ---
Date of Consultation August 08, 2021 Impression / Recommendations Impression 35 yo woman with history of anxiety, depression, PTSD and possible BPAD with alcohol use disorder requiring medical admission last week for concern for complicated withdrawal then briefly admitted to inpatient psychiatry before developing recurrent pancreatitis. Her mood is depressed but stable with no current SI and she is cooperative with medical interventions to treat her pancreatitis. Will hold off on starting any psychiatric medications in the setting of acute pancreatitis. No evidence for elevated mood, lability seen during her first medical admission suggesting possible withdrawal delirium cont ributing most significantly to this. Psychiatry will continue to follow with goal of ensuring mood stability and plan for psychiatric admission and/or substance use treatment once medically stabilized. (1) Alcohol use disorder, moderate, dependence: (2) Post traumatic stress disorder (PTSD): (3) ANGE (generalized anxiety disorder): (4) Unspecified mood [affective] disorder: -Psychiatry will continue to follow -No psychiatric medications indicated at this time -Once medically cleared will plan for psychiatric re-admission and/or residential substance use treatment Risk Factors Assessment Do You Have Access To A Gun?: No Health Problems: Yes Mental Health Diagnoses: Yes Substance Use Disorders: Yes Previous Attempt: No Hopelessness: No Protective Factors Assessment Responsible for Young Children: Yes Employed: Yes Stable Relationships: Yes Psych History Identifying Data JULIA WEBB is a 35-year-old F who currently lives in [place], has a psychiatric history of alcohol use disorder, depression, anxiety and ADHD with one prior psychiatric hospitalization ([facility] in 2010) and a medical history of diabetes and pancreatitis, was admitted to inpatient psychiatry on 08/06/21 14:36 on a 201 voluntary commitment for disorganized behavior and poor self-care and required medical readmission for acute pancreatitis. Psychiatry was consulted for ongoing management and recommendations. Chief Complaint "My pain is a 9 out of 10". History of Present Illness Leodan is well known to me after completing her inpatient psychiatry admission assessment yesterday before she developed pain and symptoms that were diagnosed as acute pancreatitis. Today she is resting and reports ongoing pain from pancreatitis and poor sleep. Her mood is stable and she is pleasant and cooperative even while dealing with the pain. She denies any SI nor HI. She requests that we don't speak further today due to her fatigue and pain but denies any concerns at this time and knows she can ask the nurses to contact our service if she wishes to speak later in the day or has other questions or concerns. She understands and agrees with plan to hold off on starting any psychiatric medications at this time in the setting of the acute pancreatitis. Past Psychiatric History Previous Psych History: prior dx of MDD, ANGE, ADHD, concern for possible BPAD Outpatient Services: used to see [facility] psychiatric provider Booker López but not in last 10 months; previously did weekly phone therapy with [place] provider during COVID last year Previous Psych Admissions: [facility] in 2010 for SI Do You Have Access To A Gun?: No History of Previous Suicide Attempt: No Past Medication Trials: recalls sertraline, Wellbutrin, Effexor and abilify none of which she found helpful; more recently was prescribed vilazodone and buspar but hasn't taken them in over a month Allergies Allergy/AdvReac Type Severity Reaction Status Date / Time bee venom protein (honey bee) Allergy Unknown ANAPHYLAXIS Verified 04/05/21 14:24 Home Medications Medication Instructions Recorded Confirmed Type cephalexin 500 mg capsule 500 mg PO TID #0 cap 08/07/21 Rx cetirizine 10 mg tablet 10 mg PO QAM #0 tab 08/07/21 Rx hydromorphone 0.5 mg/0.5 mL 0.25 mg IV Q6H PRN #0 ml 08/07/21 Rx injection syringe thiamine HCl (vitamin B1) 100 mg 100 mg PO QAM #0 tab 08/07/21 Rx tablet (Vitamin B-1) Family History Other-List under Comment (adopted but biological brother with schizophrenia and bipolar disorder and hx substance use) Substance Abuse History significant hx of alcohol use with legal and medical repercussions including ex- partner taking emergency custody of children, pancreatitis x3, 2 prior DUIs including recent DUI in May [address]. Smokes cigarettes. 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 10/09/15 echo: The examination is adequate to evaluate the referral indication. The qualitative LV ejection fraction is 60-64% (normal). The left ventricular diastolic function is normal. No significant valvular disease is present. Depression H/O Diabetes GERD (gastroesophageal reflux disease) R/T Gestational diabetes Scoliosis MINOR Surgical History History of adenoidectomy History of section x 2 History of tonsillectomy Family History Other Adopted Social History Smoking Status: Current every day smoker Tobacco Type: Cigarettes Cigarettes Per Day: 1-2; Second Hand Exposure: Yes; Hx Alcohol Use: Yes Alcohol type: wine Hx Substance Use: Yes Prescribed Medications: Marijuana Last Used Substance: Unknown Last Used Substance Other:: Last used this AM Preferred Language: Spanish 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: Effective Telephone Messenger Required: No Beliefs That Will Affect Care: None Current Living Situation: Family Current Living Situation Comment: lives w/ kids 2 and 5 Feels Safe at Home: Yes Safety Concerns: Feels Safe At This Time Assistive Devices: None Physical Exam Psychiatric: Orientation: alert and oriented x 3 Apperance: appropriately dressed and appropriately groomed Eye Contact: + fair eye contact Motor Behavior: steady gait and station and no abnormal motor movements Speech: normal rate/rhythm/volume of speech Affect: + constricted affect Mood: + depressed mood Thought Process: goal directed thought process Thought Content: reality based without delusions Suicidal Thoughts: denies suicidal thoughts Homicidal Thoughts: denies homicidal thoughts Hallucinations: no auditory hallucinations and no visual hallucinations Cognition: recent memory grossly intact, remote memory grossly intact, attention grossly intact and language grossly intact Estimated Intelligence: consistent with education level Insight: + fair insight Judgement: + fair judgement Vital Signs (Past 24 Hours): Last Vital Signs Temp 36.7 C 08/08/21 11:00 Pulse 58 L 08/08/21 11:00 Resp 18 08/08/21 11:00 BP 129/85 08/08/21 11:00 Pulse Ox 97 08/08/21 11:00 Review of Systems All systems reviewed & are unremarkable except as noted in HPI & below (stomach pain, back pain) Results & Data (PSY) Medications Administered Heparin Sodium (Porcine) (Heparin Sod 5,000 Unit/0.5 Ml Vial) 5,000 units SQ Q12 [facility] Stop: 09/06/21 20:59 Last Admin: 08/08/21 07:36 Dose: 5,000 units Documented by: [id number] Admin: 08/07/21 21:51 Dose: 5,000 units Documented by: [id number] Hydromorphone HCl (Hydromorphone Inj 0.5 Mg/0.5 Ml Syr) 0.25 mg IV Q6H PRN PRN Reason: Pain Stop: 08/21/21 14:59 Last Admin: 08/08/21 04:50 Dose: 0.25 mg Documented by: [id number] Admin: 08/07/21 22:05 Dose: 0.25 mg Documented by: [id number] Admin: 08/07/21 15:33 Dose: 0.25 mg Documented by: [id number] Potassium Chloride/Sodium Chloride (Normal Saline W/20 Meq Kcl) 20 meq in 1,000 mls @ 125 mls/hr IV .Q8H [facility]; Protocol Stop: 09/06/21 14:59 Last Admin: 08/08/21 08:53 Dose: 125 mls/hr Documented by: [id number] Infusion: 08/08/21 08:52 Dose: 0 mls/hr Documented by: [id number] Admin: 08/08/21 00:50 Dose: 125 mls/hr Documented by: [id number] Infusion: 08/07/21 23:53 Dose: 125 mls/hr Documented by: [id number] Admin: 08/07/21 15:53 Dose: 125 mls/hr Documented by: [id number] Piperacillin Sod/Tazobactam (Sod 3.375 gm/ Dextrose) 115 mls @ 28.75 mls/hr IV Q8H [facility]; Protocol Stop: 08/17/21 19:59 Last Admin: 08/08/21 11:43 Dose: 28.8 mls/hr Documented by: [id number] Infusion: 08/08/21 08:52 Dose: 0 mls/hr Documented by: [id number] Admin: 08/08/21 04:45 Dose: 28.8 mls/hr Documented by: [id number] Infusion: 08/08/21 01:29 Dose: 0 mls/hr Documented by: [id number] Admin: 08/07/21 20:43 Dose: 28.8 mls/hr Documented by: [id number] Thiamine HCl 100 mg/ Syringe 10 mls @ 2 mls/min IV QAM [facility] Stop: 09/06/21 15:14 Last Admin: 08/08/21 07:35 Dose: 2 mls/min Documented by: [id number] Admin: 08/07/21 15:54 Dose: 2 mls/min Documented by: [id number] Folic Acid 1 mg/ Syringe 10 mls @ 5 mls/min IV QAM [facility] Stop: 09/06/21 15:14 Last Admin: 08/08/21 07:35 Dose: 5 mls/min Documented by: [id number] Admin: 08/07/21 15:54 Dose: 5 mls/min Documented by: [id number] Pantoprazole Sodium 40 mg/ (Syringe) 10 mls @ 5 mls/min IV BID [facility] Stop: 09/06/21 20:59 Last Admin: 08/08/21 07:35 Dose: 5 mls/min Documented by: [id number] Admin: 08/07/21 21:50 Dose: 5 mls/min Documented by: [id number] Ondansetron HCl 6 mg/ Dextrose 53 mls @ 200 mls/hr IV Q6H PRN PRN Reason: Nausea And Vomiting Stop: 09/06/21 14:59 Last Infusion: 08/08/21 01:29 Dose: 0 mls/hr Documented by: [id number] Admin: 08/08/21 00:57 Dose: 200 mls/hr Documented by: [id number] Infusion: 08/07/21 16:54 Dose: 0 mls/hr Documented by: [id number] Admin: 08/07/21 16:32 Dose: 200 mls/hr Documented by: [id number] Coding Level of Care Code 57216 Inpt Consult Level 3 Diagnoses Alcohol use disorder, moderate, dependence F10.20 Post traumatic stress disorder (PTSD) F43.10 ANGE (generalized anxiety disorder) F41.1 Unspecified mood [affective] disorder F39
--- NOTE | 2021-08-08 12:41 | Hospitalist Progress Note ---
Date of Service August 08, 2021 Assessment & Plan (1) Acute recurrent pancreatitis: (2) Alcohol use disorder, moderate, dependence: (3) Post traumatic stress disorder (PTSD): (4) Insulin dependent diabetes mellitus: (5) ANGE (generalized anxiety disorder): (6) Unspecified mood [affective] disorder: (7) UTI (urinary tract infection): Plan: (1) Acute recurrent pancreatitis: Abdominal pain with nausea vomiting since this morning CT of the abdomen and pelvis did show acute pancreatitis with peripancreatic fluid and the lipase was elevated with minimally elevated white count She was started with intravenous fluid and intravenous Zosyn She will be transferred to medical floor with telemetry N.p.o., IV fluid and pain medications as needed Given the probable fluid collection and possible abscess GI has been consulted She has been feeling a little better without any fever and/or chills We will continue current management (2) Alcohol use disorder, moderate, dependence: History of alcohol abuse and associated pancreatitis Does not have any withdrawal symptoms Has had recent electrolyte imbalance which was corrected We will check electrolytes and give any medications for possible withdrawal (3) Post traumatic stress disorder (PTSD): Has significant psychiatric history She was transferred to psychiatric floor yesterday for continuation of her psych care We will try to continue her current medications as per psychiatrist She will go back to psych floor when medically stable Appreciate psychiatric input and recommendation (4) Insulin dependent diabetes mellitus: Has diabetes and requires insulin We will continue with sliding scale insulin coverage Glycemic pharmacist will be consulted She remains n.p.o. for now (5) ANGE (generalized anxiety disorder): As above (6) Unspecified mood [affective] disorder: As above Has ADHD as well and major depressive disorder (7) UTI (urinary tract infection): Noted to have UTI during this admission in the hospital Developing E. coli and wheezes reasonably pansensitive to antibiotics except ofloxacin Her medication was changed to oral Keflex which will be discontinued She has been started with intravenous Zosyn to cover UTI and for pancreatitis DVT prophylaxis Subcu heparin CODE STATUS Full Admission and Anticipated Discharge Date Admission Date: August 07, 2021 Subjective 08/08/2021 The patient was seen and examined in medical telemetry unit She has been complaining of some abdominal pain and nausea but no more vomiting Denies any fever and/or chills Has been feeling a little better today Review of Systems Review of Systems: All systems reviewed and are unremarkable except as noted below Gastrointestinal: Some abdominal pain which goes to the back with nausea Physical Exam Physical Exam: Lying in bed with some pain in the abdomen that goes to the back Constitutional: + ill appearing and + thin Eyes: PERRL, conjunctivae normal, anicteric sclerae ENMT: external ear and nose normal, oropharynx normal Neck: trachea midline, no thyromegaly Respiratory: no respiratory distress Auscultation: lungs clear to auscultation bilaterally Cardiovascular: Rate/Rhythm: regular rate and regular rhythm; not tachycardic Heart Sounds: normal S1 and normal S2; no murmur Extremities: no edema Gastrointestinal (Abdomen): Inspection/Auscultation: normal bowel sounds; abdomen not distended Percussion/Palpation: + abdomen tender (In the epigastrium without guarding and no rigidity) and abdomen soft Musculoskeletal: No acute arthritis in any joint Neurologic: Alert, awake and oriented x3 No focal sensory or motor deficit appreciated Lymphatic: no cervical or axillary lymphadenopathy Results & Data Results & Data ([facility]) Vital Signs (Past 12 Hours) Vital Signs Temp Pulse Pulse Resp BP BP Pulse Ox 08/08/21 11:00 36.7 C 58 L 18 129/85 97 08/08/21 09:18 62 08/08/21 07:00 36.7 C 73 16 114/75 98 08/08/21 03:01 36.9 C 62 18 136/72 97 Laboratory Results Short CBC 08/08/21 Range/Units 05:36 WBC 11.08 H (4.8-10.8) K/uL Hgb 11.5 L (12.0-16.0) g/dL Hct 34.3 L (37-47) % Plt Count 459 H (130-400) K/uL BMP 08/08/21 05:36 Sodium 139 Potassium 4.4 Chloride 108 H Carbon Dioxide 25 BUN 3 L Creatinine 0.41 L Glucose 162 H Calcium 8.5 Medications Administered Current Inpatient Medications Heparin Sodium (Porcine) (Heparin Sod 5,000 Unit/0.5 Ml Vial) 5,000 units SQ Q12 [facility] Stop: 09/06/21 20:59 Last Admin: 08/08/21 07:36 Dose: 5,000 units Documented by: Hydromorphone HCl (Hydromorphone Inj 0.5 Mg/0.5 Ml Syr) 0.25 mg IV Q6H PRN PRN Reason: Pain Stop: 08/21/21 14:59 Last Admin: 08/08/21 04:50 Dose: 0.25 mg Documented by: Potassium Chloride/Sodium Chloride (Normal Saline W/20 Meq Kcl) 20 meq in 1,000 mls @ 125 mls/hr IV .Q8H [facility]; Protocol Stop: 09/06/21 14:59 Last Admin: 08/08/21 08:53 Dose: 125 mls/hr Documented by: Piperacillin Sod/Tazobactam (Sod 3.375 gm/ Dextrose) 115 mls @ 28.75 mls/hr IV Q8H [facility]; Protocol Stop: 08/17/21 19:59 Last Admin: 08/08/21 11:43 Dose: 28.8 mls/hr Documented by: Thiamine HCl 100 mg/ Syringe 10 mls @ [facility]: 09/06/21 15:14 Last Admin: 08/08/21 07:35 Dose: 2 mls/min Documented by: Folic Acid 1 mg/ Syringe 10 mls @ 5 mls/min IV QAM [facility] Stop: 09/06/21 15:14 Last Admin: 08/08/21 07:35 Dose: 5 mls/min Documented by: Pantoprazole Sodium 40 mg/ (Syringe) 10 mls @ 5 mls/min IV BID [facility] Stop: 09/06/21 20:59 Last Admin: 08/08/21 07:35 Dose: 5 mls/min Documented by: Ondansetron HCl 6 mg/ Dextrose 53 mls @ 200 mls/hr IV Q6H PRN PRN Reason: Nausea And Vomiting Stop: 09/06/21 14:59 Last Infusion: 08/08/21 01:29 Dose: Infused Documented by: Lorazepam (Ativan) 0.5 mg in 1 mls @ 1 mls/min IV Q4H PRN PRN Reason: Anxiety Stop: 09/06/21 14:59 Miscellaneous Information (Piperacill/Tazobac Consult Active) 1 ea N/A UD PRN PRN Reason: Consult Stop: 09/06/21 14:59
--- NOTE | 2021-08-08 13:12 | Gastrointestinal Consultation ---
Date of Consultation August 08, 2021 Assessment & Plan (1) Acute recurrent pancreatitis: possibly due to alcohol though she denies abuse at this time; could be hereditary vs. other etiology recs: --NPO --LR 250-500 cc/hr for the first 24 hours --supportive care, pain control prn --once pain is improving would initiate diet can start with low residue diet --check triglyceride levels --consider outpatient EUS to further evaluate Thank you for allowing me to participate in the care of this patient History of Present Illness Attending Physician: Xiomy Valdez MD History of Present Illness 35 yo female with hx alcohol abuse and relapse last drink 2 weeks ago here with pancreatitis. She notes epigastric abdominal pains, CT A/P with pancreatitis and peripancreatic fluid collections, lipase was over 1000. Currently her nausea has improved but still with abdominal pains. No evidence of gallbladder disease on imaging, this is her third or fourth episode of pancreatitis. Does not know her family hx as she was adopted. labs reviewed. Allergies Allergy/AdvReac Type Severity Reaction Status Date / Time bee venom protein (honey bee) Allergy Unknown ANAPHYLAXIS Verified 04/05/21 14:24 Home Medications Medication Instructions Recorded Confirmed Type cephalexin 500 mg capsule 500 mg PO TID #0 cap 08/07/21 Rx cetirizine 10 mg tablet 10 mg PO QAM #0 tab 08/07/21 Rx hydromorphone 0.5 mg/0.5 mL 0.25 mg IV Q6H PRN #0 ml 08/07/21 Rx injection syringe thiamine HCl (vitamin B1) 100 mg 100 mg PO QAM #0 tab 08/07/21 Rx tablet (Vitamin B-1) Patient History Medical History Anxiety H/O Asthma Cardiac murmur CONGENITAL -- BENIGN. 10/09/15 echo: The examination is adequate to evaluate the referral indication. The qualitative LV ejection fraction is 60-64% (normal). The left ventricular diastolic function is normal. No significant valvular disease is present. Depression H/O Diabetes GERD (gastroesophageal reflux disease) R/T Gestational diabetes Scoliosis MINOR Surgical History History of adenoidectomy History of section x 2 History of tonsillectomy Family History Other Adopted Social History Smoking Status: Current every day smoker Tobacco Type: Cigarettes Cigarettes Per Day: 1-2; Second Hand Exposure: Yes; Hx Alcohol Use: Yes Alcohol type: wine Hx Substance Use: Yes Prescribed Medications: Marijuana Last Used Substance: Unknown Last Used Substance Other:: Last used this AM Preferred Language: Occitan 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: Effective [employer] Required: No Beliefs That Will Affect Care: None Current Living Situation: Family Current Living Situation Comment: lives w/ kids 2 and 5 Feels Safe at Home: Yes Safety Concerns: Feels Safe At This Time Assistive Devices: None Review of Systems Constitutional: no fever, no chills and no weight loss Eyes: as per Subjective / HPI Ear, Nose, Mouth, Throat: as per Subjective / HPI Respiratory: no dyspnea and no dyspnea on exertion Cardiovascular: no chest pain and no palpitations Gastrointestinal: as per Subjective / HPI Musculoskeletal: no joint pain and no swelling Integumentary: no rash and no lesions Neurologic: no numbness and no paresthesia Psychiatric: no depression and no anxiety Endocrine: no fatigue Hematologic / Lymphatic: no easy bleeding and no easy bruising Physical Exam Constitutional: WD/WN, vitals as above Eyes: EOM intact bilaterally Neck: normal visual inspection Respiratory: normal respiratory effort, lungs clear to auscultation Cardiovascular: RRR, no murmur, no edema Gastrointestinal (Abdomen): Inspection/Auscultation: abdomen normal to inspection; abdomen not distended Percussion/Palpation: + abdomen tender (mild-moderate epigastric) and abdomen soft; no hepatosplenomegaly Musculoskeletal: Extremities: no cyanosis Gait: normal gait Skin: no rashes, warm and dry Neurologic: moves all extremities Psychiatric: A+Ox3, euthymic affect Results & Data ([facility]) Vital Signs (Past 12 Hours) Vital Signs Temp Pulse Pulse Resp BP BP Pulse Ox 08/08/21 11:00 36.7 C 58 L 18 129/85 97 08/08/21 09:18 62 08/08/21 07:00 36.7 C 73 16 114/75 98 08/08/21 03:01 36.9 C 62 18 136/72 97 PG Care Time/CCT Total # of Minutes Spent Total Time Spent with Patient: Total time spent is greater than 50% in coordination of care (as documented) at patient's floor/unit and/or counseling patient: Coding Level of Care Code 81973 Inpt Consult Level 4 Diagnoses Acute recurrent pancreatitis K85.90
[2021-08-08] MEDS ORDERED: GLUCOSE 40% GEL 15 GM TUBE PO PRN (14:18)
[2021-08-08] MEDS ORDERED: GLUCOSE 10 TABS/TUBE PO PRN (14:18)
[2021-08-08] MEDS ORDERED: GLUCAGON FOR INJ 1 MG VIAL SQ PRN (14:18)
[2021-08-08] MEDS ORDERED: DEXTROSE 50% 50 ML SYRINGE IV PRN (14:18)
[2021-08-08] MEDS ORDERED: CARBOHYDRATES FOR HYPOGLYCEMIA PO PRN (14:18)
[2021-08-08 22:40] LABS: Appearance Urine Clear (Clear); Bacteria Urine Automated Negative (Negative); Bilirubin Urine Negative (Negative); Blood Urine 3+ (Negative); Cast Urine Automated 0 /lpf (0-5); Color Urine Yellow; Epithelial Cell Urine Auto >30 /lpf (0-5); Glucose Urine UA Negative (Negative); Ketones Urine Trace (Negative); Leukocyte Esterase Urine Negative (Negative); Nitrite Urine Negative (Negative); Protein Urine Negative (Negative); RBC Urine Automated >30 /hpf (0-4); Urobilinogen Urine Negative (Negative); pH Urine 7.5 (4.5-7.5)
[2021-08-08] MEDS ORDERED: Nursing to Pharmacy Communication SCH ×2 (23:00→23:45)
[2021-08-09] MEDS: INSULIN ASPART PER UNIT SC SCH ×7 (00:12→21:35)
[2021-08-09] MEDS: PIPERACILLIN/TAZOBACTAM 3.375 GM in DEXTROSE 5% 100 ML IV SCH ×3 (03:57→21:28)
[2021-08-09] MEDS: NSS + 20MEQ KCL 20 MEQ/1,000 ML BAG IV SCH ×4 (04:00→21:36)
[2021-08-09] MEDS: FOLIC ACID 1 MG in SYRINGE 9.8 ML IV SCH (08:37)
[2021-08-09] MEDS: HEPARIN SOD 5,000 UNIT/0.5 ML VIAL SQ SCH ×2 (08:37→21:35)
[2021-08-09] MEDS: PANTOprazole 40 MG in SYRINGE 0 ML IV SCH ×2 (08:37→21:35)
[2021-08-09] MEDS: THIAMINE HCL 100 MG in SYRINGE 9 ML IV SCH (08:38)
[2021-08-09] MEDS: HYDROmorphone INJ 0.5 MG/0.5 ML SYR IV PRN ×2 (08:46→17:26)
[2021-08-09] MEDS: ondansetron HCL 6 MG in DEXTROSE 5% 50 ML IV PRN ×2 (09:01→17:34)
[2021-08-09 09:06] LABS: Alanine Aminotransferase 22 (12-78); Albumin Level 2.1 gm/dl (3.4-5.0); Aspartate Aminotransferase 20 U/L (15-37); BUN Creatinine Ratio 4.2 (10-20); Blood Urea Nitrogen 2 mg/dl (7-18); Carbon Dioxide 23 mmol/L (21-32); Chloride 107 mmol/L (98-107); Creatinine Clr Calc Pharmacy 132.9 ml/min; Est GFR (African American) > 150.0 ml/min; Est GFR (Non-African American) 130.7 ml/min; Glucose 135 mg/dl (70-99); Magnesium 1.6 mg/dl (1.8-2.4); Potassium 4.5 mmol/L (3.5-5.1); Sodium 137 mmol/L (136-145)
[2021-08-09 09:48] LABS: Albumin Globulin Ratio 0.5 (0.9-2); Alkaline Phosphatase 36 U/L (45-117); Globulin 3.9 gm/dl (2.5-4.0); Phosphorus 2.3 mg/dl (2.5-4.9)
[2021-08-09 10:27] LABS: Bilirubin,Total 0.2 mg/dl (0.2-1)
--- NOTE | 2021-08-09 10:36 | Psychiatric Progress Note ---
Date of Service August 09, 2021 Impression / Recommendations Impression 35 yo woman with history of anxiety, depression, PTSD and possible BPAD with alcohol use disorder requiring medical admission last week for concern for complicated withdrawal then briefly admitted to inpatient psychiatry before developing recurrent pancreatitis. Will hold off on starting any psychiatric medications in the setting of acute pancreatitis. No evidence for elevated mood, lability seen during her first medical admission suggesting possible withdrawal delirium contributing most significantly to this. Psychiatry will continue to follow with goal of ensuring mood stability and plan for psychiatric admission and/or substance use treatment once medically stabilized. 08/09/21: showing ongoing improvement in mood with no signs of depression or kevyn. Improving insight about psychosis prior to admission and role of substances and possibly superimposed mood episode. She's going to think about options for substance use treatment as she would like to speak with her mentor and others to get their input as well. (1) Alcohol use disorder, moderate, dependence: (2) Post traumatic stress disorder (PTSD): (3) ANGE (generalized anxiety disorder): (4) Unspecified mood [affective] disorder: -Psychiatry will continue to follow -No psychiatric medications indicated at this time -Once medically cleared will plan for psychiatric re-admission and/or resid ential substance use treatment or dual diagnosis IOP Risk Factors Assessment Do You Have Access To A Gun?: No Health Problems: Yes Mental Health Diagnoses: Yes Substance Use Disorders: Yes Previous Attempt: No Hopelessness: No Protective Factors Assessment Responsible for Young Children: Yes Employed: Yes Stable Relationships: Yes Interval History Identifying Information YETERECORINNA WEBB is a 35-year-old F who currently lives in [place], has a psychiatric history of alcohol use disorder, depression, anxiety and ADHD with one prior psychiatric hospitalization ([facility] in 2010) and a medical history of diabetes and pancreatitis, was admitted to inpatient psychiatry on 08/06/21 14:36 on a 201 voluntary commitment for disorganized behavior and poor self-care and required medical readmission for acute pancreatitis. Psychiatry was consulted for ongoing management and recommendations. Chief Complaint "I'm feeling much better today and my thoughts are clearer". Review of Systems Notes Stable sleep, appetite has returned, back pain remains present Subjective Subjective Patient was seen & assessed and interval progress reviewed. Today she reports significant improvement in pain in that she can sit more comfortably as pain is now most prominent in her back. Her appetite has returned and she's hopeful she can have clear liquids soon. Her mood is stable and she slept well. She denies SI. She notes that her mind feels clearer and that she talked with her bf and other friends and has reached the conclusion that the events leading up to her recent admission "I think it was all in my head". She notes how this a bit scary since it felt so real at that time and we discuss that whether it was a episode of kevyn or alcohol-induced or delirium it's encouraging that she is feeling better and able to reflect on the events. She is now thinking she may want to return home once medically stabilized but knows she needs to have outpatient care set up or she may not follow-up on her own. She is going to think about option of residential substance use treatment vs IOP vs inpatient psychiatry admission. Physical Exam Psychiatric Orientation: alert and oriented x 3 Apperance: appropriately dressed and appropriately groomed Eye Contact: good eye contact Motor Behavior: steady gait and station and no abnormal motor movements Speech: normal rate/rhythm/volume of speech Affect: euthymic affect Mood: + anxious mood Thought Process: goal directed thought process Thought Content: reality based without delusions Suicidal Thoughts: denies suicidal thoughts Homicidal Thoughts: denies homicidal thoughts Hallucinations: no auditory hallucinations and no visual hallucinations Cognition: recent memory grossly intact, remote memory grossly intact, attention grossly intact and language grossly intact Estimated Intelligence: consistent with education level Insight: + fair insight Judgement: + fair judgement Vital Signs (Past 24 Hours) Last Vital Signs Temp 36.8 C 08/09/21 06:01 Pulse 59 L 08/09/21 07:34 Resp 18 08/09/21 06:01 BP 126/83 08/09/21 06:01 Pulse Ox 98 08/09/21 06:01 Results & Data ([facility]) Laboratory Results Laboratory Results - last 24 hr 08/08/21 08/08/21 08/09/21 11:26 22:30 00:00 Sodium Potassium Chloride Carbon Dioxide Anion Gap BUN Creatinine Est Cr Clr Drug Dosing Est GFR ( Amer) Est GFR (Non-Af Amer) BUN/Creatinine Ratio Glucose POC Glucose 167 H 116 H Calcium Phosphorus Magnesium Total Bilirubin AST ALT Alkaline Phosphatase Total Protein Albumin Globulin Albumin/Globulin Ratio Urine Color Yellow Urine Appearance Clear Urine pH 7.5 Ur Specific [place] 1.010 Urine Protein Negative Urine Glucose (UA) Negative Urine Ketones Trace H Urine Blood 3+ H Urine Nitrite Negative Urine Bilirubin Negative Urine Urobilinogen Negative Ur Leukocyte Esterase Negative Urine WBC (Auto) 1-5 Urine RBC (Auto) >30 H U Hyaline Cast (Auto) 0 U Epithel Cells (Auto) >30 H Urine Bacteria (Auto) Negative 08/09/21 08/09/21 05:53 08:33 Sodium 137 Potassium 4.5 Chloride 107 Carbon Dioxide 23 Anion Gap 7.0 BUN 2 L Creatinine 0.45 L Est Cr Clr Drug Dosing 132.9 Est GFR ( Amer) > 150.0 Est GFR (Non-Af Amer) 130.7 BUN/Creatinine Ratio 4.2 L Glucose 135 H POC Glucose 119 H Calcium 8.0 L Phosphorus 2.3 L Magnesium 1.6 L Total Bilirubin 0.2 AST 20 ALT 22 Alkaline Phosphatase 36 L Total Protein 6.0 L Albumin 2.1 L Globulin 3.9 Albumin/Globulin Ratio 0.5 L Urine Color Urine Appearance Urine pH Ur Specific [place] Urine Protein Urine Glucose (UA) Urine Ketones Urine Blood Urine Nitrite Urine Bilirubin Urine Urobilinogen Ur Leukocyte Esterase Urine WBC (Auto) Urine RBC (Auto) U Hyaline Cast (Auto) U Epithel Cells (Auto) Urine Bacteria (Auto) Current Inpatient Medications Current Inpatient Medications: Current Inpatient Medications Dextrose (Dextrose 50% 50 Ml Syringe) 25 - 50 ml IV UD PRN; Protocol PRN Reason: Hypoglycemia Protocol Stop: 09/07/21 14:17 Glucagon (Glucagon For Inj 1 Mg Vial) 1 mg SQ UD PRN; Protocol PRN Reason: Hypoglycemia Protocol Stop: 09/07/21 14:17 Glucose (Glucose 10 Tabs/Tube) 4 - 8 tabs PO UD PRN; Protocol PRN Reason: Hypoglycemia Protocol Stop: 09/07/21 14:17 Glucose (Glucose 40% Gel 15 Gm Tube) 15 - 30 gm PO UD PRN; Protocol PRN Reason: Hypoglycemia Protocol Stop: 09/07/21 14:17 Heparin Sodium (Porcine) (Heparin Sod 5,000 Unit/0.5 Ml Vial) 5,000 units SQ Q12 [facility] Stop: 09/06/21 20:59 Last Admin: 08/09/21 08:37 Dose: 5,000 units Documented by: Hydromorphone HCl (Hydromorphone Inj 0.5 Mg/0.5 Ml Syr) 0.25 mg IV Q6H PRN PRN Reason: Pain Stop: 08/21/21 14:59 Last Admin: 08/09/21 08:46 Dose: 0.25 mg Documented by: Potassium Chloride/Sodium Chloride (Normal Saline W/20 Meq Kcl) 20 meq in 1,000 mls @ 200 mls/hr IV .Q5H [facility]; Protocol Stop: 09/06/21 14:59 Last Admin: 08/09/21 09:04 Dose: 200 mls/hr Documented by: Piperacillin Sod/Tazobactam (Sod 3.375 gm/ Dextrose) 115 mls @ 28.75 mls/hr IV Q8H [facility]; Protocol Stop: 08/17/21 19:59 Last Infusion: 08/09/21 07:57 Dose: Infused Documented by: Thiamine HCl 100 mg/ Syringe 10 mls @ 2 mls/min IV QAM [facility] Stop: 09/06/21 15:14 Last Admin: 08/09/21 08:38 Dose: 2 mls/min Documented by: Folic Acid 1 mg/ Syringe 10 mls @ 5 mls/min IV QAM [facility] Stop: 09/06/21 15:14 Last Admin: 08/09/21 08:37 Dose: 5 mls/min Documented by: Pantoprazole Sodium 40 mg/ (Syringe) 10 mls @ 5 mls/min IV BID [facility] Stop: 09/06/21 20:59 Last Admin: 08/09/21 08:37 Dose: 5 mls/min Documented by: Ondansetron HCl 6 mg/ Dextrose 53 mls @ 200 mls/hr IV Q6H PRN PRN Reason: Nausea And Vomiting Stop: 09/06/21 14:59 Last Infusion: 08/09/21 09:17 Dose: Infused Documented by: Lorazepam (Ativan) 0.5 mg in 1 mls @ 1 mls/min IV Q4H PRN PRN Reason: Anxiety Stop: 09/06/21 14:59 Insulin Aspart (Insulin Aspart Per Unit) 0 units SC Q6 [facility] Stop: 09/08/21 00:00 Last Admin: 08/09/21 06:15 Dose: Not Given Documented by: Miscellaneous (Carbohydrates For Hypoglycemia ) 15 - 30 gm PO UD PRN PRN Reason: Hypoglycemia Protocol Stop: 09/07/21 14:17 Miscellaneous Information (Piperacill/Tazobac Consult Active) 1 ea N/A UD PRN PRN Reason: Consult Stop: 09/06/21 14:59 Zolpidem Tartrate (Zolpidem Tartrate 5 Mg Tab) 5 mg PO HS PRN PRN Reason: Sleep Stop: 09/08/21 01:31
--- NOTE | 2021-08-09 14:45 | Gastroenterology Progress Note ---
Date of Service August 09, 2021 Assessment & Plan (1) Acute recurrent pancreatitis: Plan: ETOH pancreatitis w/o evidence of bile duct/pancreatic duct obstruction/s on imaging. Clinically improving. Regarding fluid lesions near pancreas, mentioned in the body of the CT result on 08/07/21 - ill defined. Would recommend repeat CT, with IV contrast, in 4-6 weeks. Total, permanent avoidance of alcohol. On clear liquids today - may continue to advance to low fat regular consistency diet tomorrow if does well overnight. GI will sign off. Please notify us of new/worsening GI issues. Admission and Anticipated Discharge Date Admission Date: August 07, 2021 Supervising Physician Co-Signing Physician Notes Attg add: I interviewed and examined pt, reviewed chart and labs. Pt with mild abdominal pain, now resolved. LIipase increased with nl LFT's. Non con CT shows marked rip-panc edema, ? fluid collection. On exam, pt appears well - tolerating PO, with only mild tenderness in abdomen. A/P: Pancreatitis - POssible that pt has acute on chronic panc, related to alcohol use? For now, diet as tolerated, recommend repeat imaging with MRI pancreas and MRCP in 4-6 weeks to follow up. Please call us if questions. Subjective Admitted on 08/03 - IP then psych and transferred back for medical car for acute, recurrent pancreatitis. Previously increased alcohol intake but denies recent ETOH intake. Awake, alert, oriented, feels "better," tolerating a clear liquid diet today. Review of Systems Review of Systems: ROS: Gen: Denies weakness, fevers, weight loss Eyes: No eye redness, or pain, no recent vision changes Resp: No SOB, no cough Cardio: No palpitations/irregular beats, no chest pain GI: Per HPI, otherwise (-) : Denies pain on urination Skin: No jaundice, itching or new rashes Physical Exam Constitutional: well developed, + ill appearing, + thin and cooperative Eyes: PERRL, conjunctivae normal, anicteric sclerae Respiratory: normal respiratory effort, lungs clear to auscultation Cardiovascular: RRR, no murmur, no edema Gastrointestinal (Abdomen): Percussion/Palpation: + abdomen tender (Mild epigastric tenderness. No signs of acute abdomen.), abdomen soft and + splenomegaly; no guarding, abdomen not rigid and no hepatosplenomegaly Skin: no rashes, warm and dry normal turgor Neurologic: PERRL, EOMI, accommodation nl, no face palsy, no dysarthria awake; not confused Psychiatric: A+Ox3, euthymic affect Orientation: alert, oriented x 3 and cooperative Results & Data ([facility]) Vital Signs (Past 12 Hours) Vital Signs Temp Pulse Pulse Resp BP Pulse Ox 08/09/21 11:50 36.8 C 65 20 107/70 97 08/09/21 07:34 59 L 08/09/21 06:01 36.8 C 65 18 126/83 98 Laboratory Results 08/09/21: WBC 1, Hb 11.5, Hct 34, Plts 459 Today: Na 136, K 2.9, Cl 101, CO2 26, BUN 4, Cr 0.97, glucose 89 Diagnostic Findings Non contrast CTAP 08/07/21: Findings compatible with acute pancreatitis. Well- defined fluid density lesions (though mentioned as poorly defined in the body of the report) around the pancreas may represent acute peripancreatic fluid collection versus acute necrotic collection
--- NOTE | 2021-08-09 14:56 | Hospitalist Progress Note ---
Date of Service August 09, 2021 Assessment & Plan (1) Acute recurrent pancreatitis: (2) Alcohol use disorder, moderate, dependence: (3) Post traumatic stress disorder (PTSD): (4) Insulin dependent diabetes mellitus: (5) ANGE (generalized anxiety disorder): (6) Unspecified mood [affective] disorder: (7) UTI (urinary tract infection): Plan: (1) Acute recurrent pancreatitis: Abdominal pain with nausea vomiting since this morning CT of the abdomen and pelvis did show acute pancreatitis with peripancreatic fluid and the lipase was elevated with minimally elevated white count She was started with intravenous fluid and intravenous Zosyn She will be transferred to medical floor with telemetry N.p.o., IV fluid and pain medications as needed Given the probable fluid collection and possible abscess GI has been consulted She has been feeling a little better without any fever and/or chills Appreciate GI input and recommendation Abdominal pain has been improving and clears started orally (2) Alcohol use disorder, moderate, dependence: History of alcohol abuse and associated pancreatitis Does not have any withdrawal symptoms Has had recent electrolyte imbalance which was corrected We will check electrolytes and give any medications for possible withdrawal (3) Post traumatic stress disorder (PTSD): Has significant psychiatric history She was transferred to psychiatric floor yesterday for continuation of her psych care We will try to continue her current medications as per psychiatrist She will go back to psych floor when medically stable Appreciate psychiatric input and recommendation Psychiatry following (4) Insulin dependent diabetes mellitus: Has diabetes and requires insulin We will continue with sliding scale insulin coverage Glycemic pharmacist will be consulted She remains n.p.o. for now Continue with SSI (5) ANGE (generalized anxiety disorder): As above (6) Unspecified mood [affective] disorder: As above Has ADHD as well and major depressive disorder (7) UTI (urinary tract infection): Noted to have UTI during this admission in the hospital Developing E. coli and wheezes reasonably pansensitive to antibiotics except ofloxacin Her medication was changed to oral Keflex which will be discontinued She has been started with intravenous Zosyn to cover UTI and for pancreatitis DVT prophylaxis Subcu heparin CODE STATUS Full Admission and Anticipated Discharge Date Admission Date: August 07, 2021 Subjective 08/08/2021 The patient was seen and examined in medical telemetry unit She has been complaining of some abdominal pain and nausea but no more vomiting Denies any fever and/or chills Has been feeling a little better today 08/09/2021 The patient was seen and examined in medical telemetry unit She has been complaining of abdominal pain but without any nausea or vomiting She is trying clears orally, small amount at 1 time Review of Systems Review of Systems: All systems reviewed and are unremarkable except as noted below Gastrointestinal: Some abdominal pain which goes to the back with nausea Physical Exam Physical Exam: Lying in bed with some pain in the abdomen that goes to the back Constitutional: + ill appearing and + thin Eyes: PERRL, conjunctivae normal, anicteric sclerae ENMT: external ear and nose normal, oropharynx normal Neck: trachea midline, no thyromegaly Respiratory: no respiratory distress Auscultation: lungs clear to auscultation bilaterally Cardiovascular: Rate/Rhythm: regular rate and regular rhythm; not tachycardic Heart Sounds: normal S1 and normal S2; no murmur Extremities: no edema Gastrointestinal (Abdomen): Inspection/Auscultation: normal bowel sounds; abdomen not distended Percussion/Palpation: + abdomen tender (In the epigastrium without guarding and no rigidity) and abdomen soft Musculoskeletal: No acute arthritis in any joint Neurologic: Alert, awake and oriented x3. No focal sensory and motor deficit appreciated Lymphatic: no cervical or axillary lymphadenopathy Results & Data Results & Data ([facility]) Vital Signs (Past 12 Hours) Vital Signs Temp Pulse Pulse Resp BP Pulse Ox 08/09/21 11:50 36.8 C 65 20 107/70 97 08/09/21 07:34 59 L 08/09/21 06:01 36.8 C 65 18 126/[address] [facility] 08/09/21 08:33 Sodium 137 Potassium 4.5 Chloride 107 Carbon Dioxide 23 BUN 2 L Creatinine 0.45 L Glucose 135 H Calcium 8.0 L Liver Function 08/09/21 Range/Units 08:33 Total Bilirubin 0.2 (0.2-1) mg/dl AST 20 (15-37) U/L ALT 22 (12-78) Alkaline Phosphatase 36 L (45-117) U/L Albumin 2.1 L (3.4-5.0) gm/dl Urine 08/08/21 Range/Units 22:30 Urine Color Yellow Urine Appearance Clear (Clear) Urine pH 7.5 (4.5-7.5) Ur Specific [place] 1.010 (1.000-1.030) Urine Protein Negative (Negative) Urine Glucose (UA) Negative (Negative) Medications Administered Current Inpatient Medications Dextrose (Dextrose 50% 50 Ml Syringe) 25 - 50 ml IV UD PRN; Protocol PRN Reason: Hypoglycemia Protocol Stop: 09/07/21 14:17 Glucagon (Glucagon For Inj 1 Mg Vial) 1 mg SQ UD PRN; Protocol PRN Reason: Hypoglycemia Protocol Stop: 09/07/21 14:17 Glucose (Glucose 10 Tabs/Tube) 4 - 8 tabs PO UD PRN; Protocol PRN Reason: Hypoglycemia Protocol Stop: 09/07/21 14:17 Glucose (Glucose 40% Gel 15 Gm Tube) 15 - 30 gm PO UD PRN; Protocol PRN Reason: Hypoglycemia Protocol Stop: 09/07/21 14:17 Heparin Sodium (Porcine) (Heparin Sod 5,000 Unit/0.5 Ml Vial) 5,000 units SQ Q12 [facility] Stop: 09/06/21 20:59 Last Admin: 08/09/21 08:37 Dose: 5,000 units Documented by: Hydromorphone HCl (Hydromorphone Inj 0.5 Mg/0.5 Ml Syr) 0.25 mg IV Q6H PRN PRN Reason: Pain Stop: 08/21/21 14:59 Last Admin: 08/09/21 08:46 Dose: 0.25 mg Documented by: Potassium Chloride/Sodium Chloride (Normal Saline W/20 Meq Kcl) 20 meq in 1,000 mls @ 200 mls/hr IV .Q5H [facility]; Protocol Stop: 09/06/21 14:59 Last Admin: 08/09/21 14:26 Dose: 200 mls/hr Documented by: Piperacillin Sod/Tazobactam (Sod 3.375 gm/ Dextrose) 115 mls @ 28.75 mls/hr IV Q8H [facility]; Protocol Stop: 08/17/21 19:59 Last Admin: 08/09/21 12:09 Dose: 28.8 mls/hr Documented by: Thiamine HCl 100 mg/ Syringe 10 mls @ 2 mls/min IV QAM [facility] Stop: 09/06/21 15:14 Last Admin: 08/09/21 08:38 Dose: 2 mls/min Documented by: Folic Acid 1 mg/ Syringe 10 mls @ 5 mls/min IV QAM [facility] Stop: 09/06/21 15:14 Last Admin: 08/09/21 08:37 Dose: 5 mls/min Documented by: Pantoprazole Sodium 40 mg/ (Syringe) 10 mls @ 5 mls/min IV BID [facility] Stop: 09/06/21 20:59 Last Admin: 08/09/21 08:37 Dose: 5 mls/min Documented by: Ondansetron HCl 6 mg/ Dextrose 53 mls @ 200 mls/hr IV Q6H PRN PRN Reason: Nausea And Vomiting Stop: 09/06/21 14:59 Last Infusion: 08/09/21 09:17 Dose: Infused Documented by: Lorazepam (Ativan) 0.5 mg in 1 mls @ 1 mls/min IV Q4H PRN PRN Reason: Anxiety Stop: 09/06/21 14:59 Insulin Aspart (Insulin Aspart Per Unit) 0 units SC Q6 [facility] Stop: 09/08/21 00:00 Last Admin: 08/09/21 12:10 Dose: 3 units Documented by: Miscellaneous (Carbohydrates For Hypoglycemia ) 15 - 30 gm PO UD PRN PRN Reason: Hypoglycemia Protocol Stop: 09/07/21 14:17 Miscellaneous Information (Piperacill/Tazobac Consult Active) 1 ea N/A UD PRN PRN Reason: Consult Stop: 09/06/21 14:59 Zolpidem Tartrate (Zolpidem Tartrate 5 Mg Tab) 5 mg PO HS PRN PRN Reason: Sleep Stop: 09/08/21 01:31
[2021-08-09] MEDS ORDERED: Nursing to Pharmacy Communication SCH (16:30)
[2021-08-10] MEDS: HYDROmorphone INJ 0.5 MG/0.5 ML SYR IV PRN ×3 (00:23→20:59)
[2021-08-10] MEDS: ZOLPIDEM TARTRATE 5 MG TAB PO PRN (00:24)
[2021-08-10] MEDS: NSS + 20MEQ KCL 20 MEQ/1,000 ML BAG IV SCH ×3 (03:48→17:36)
[2021-08-10] MEDS: PIPERACILLIN/TAZOBACTAM 3.375 GM in DEXTROSE 5% 100 ML IV SCH ×3 (04:53→20:18)
[2021-08-10] MEDS: PANTOprazole 40 MG in SYRINGE 0 ML IV SCH ×2 (08:04→20:19)
[2021-08-10] MEDS: THIAMINE HCL 100 MG in SYRINGE 9 ML IV SCH (08:04)
[2021-08-10] MEDS: FOLIC ACID 1 MG in SYRINGE 9.8 ML IV SCH (08:04)
[2021-08-10] MEDS: HEPARIN SOD 5,000 UNIT/0.5 ML VIAL SQ SCH ×2 (08:04→20:20)
[2021-08-10] MEDS: INSULIN ASPART PER UNIT SC SCH ×4 (08:14→20:22)
[2021-08-10 09:17] LABS: Basophils # (auto) 0.02 K/uL (0-0.2); Basophils % (auto) 0.2 %; Eosinophils # (auto) 0.15 K/uL (0-0.5); Eosinophils % (auto) 1.4 %; Hematocrit (blood only) 34.8 % (37-47); Hemoglobin 11.3 g/dL (12.0-16.0); Immature Granulocytes # (auto) 0.06 K/uL (0.00-0.02); Immature Granulocytes % (auto) 0.6 %; Lymphocytes # (auto) 1.74 K/uL (1.2-3.4); Lymphocytes % (auto) 16.6 %; Mean Corpuscular Hemoglobin 31.5 pg (25-34); Mean Corpuscular Hgb Conc 32.5 g/dL (32-36); Mean Corpuscular Volume 96.9 fL (80-100); Mean Platelet Volume 10.3 fL (7.4-10.4); Monocytes # (auto) 0.52 K/uL (0.11-0.59); Monocytes % (auto) 4.9 %; Neutrophils # (auto) 8.02 K/uL (1.4-6.5); Neutrophils % (auto) 76.3 %; Platelet Count 497 K/uL (130-400); RDW Coefficient of Variation 12.4 % (11.5-14.5); RDW Standard Deviation 43.9 fL (36.4-46.3); Red Blood Count 3.59 M/uL (4.2-5.4); White Blood Count 10.51 K/uL (4.8-10.8)
[2021-08-10 09:44] LABS: Albumin Level 2.2 gm/dl (3.4-5.0); Blood Urea Nitrogen 1 mg/dl (7-18); Calcium 8.2 mg/dl (8.5-10.1); Carbon Dioxide 24 mmol/L (21-32); Chloride 109 mmol/L (98-107); Creatinine Clr Calc Pharmacy 135.9 ml/min; Est GFR (African American) > 150.0 ml/min; Est GFR (Non-African American) 131.7 ml/min; Glucose 161 mg/dl (70-99); Potassium 4.3 mmol/L (3.5-5.1); Sodium 138 mmol/L (136-145)
[2021-08-10 09:48] LABS: Alanine Aminotransferase 17 (12-78); Albumin Globulin Ratio 0.6 (0.9-2); Alkaline Phosphatase 36 U/L (45-117); Aspartate Aminotransferase 13 U/L (15-37); Bilirubin,Total 0.3 mg/dl (0.2-1); Globulin 3.7 gm/dl (2.5-4.0); Total Protein 5.9 gm/dl (6.4-8.2)
[2021-08-10 10:00] LABS: Magnesium 1.5 mg/dl (1.8-2.4); Phosphorus 2.6 mg/dl (2.5-4.9)
[2021-08-10] MEDS: ondansetron HCL 6 MG in DEXTROSE 5% 50 ML IV PRN ×2 (10:30→20:19)
--- NOTE | 2021-08-10 12:37 | Psychiatric Progress Note ---
Date of Service August 10, 2021 Impression / Recommendations Impression 35 yo woman with history of anxiety, depression, PTSD and possible BPAD with alcohol use disorder requiring medical admission last week for concern for complicated withdrawal then briefly admitted to inpatient psychiatry before developing recurrent pancreatitis. Will hold off on starting any psychiatric medications in the setting of acute pancreatitis. No evidence for elevated mood, lability seen during her first medical admission suggesting possible withdrawal delirium contributing most significantly to this. Psychiatry will continue to follow with goal of ensuring mood stability and plan for psychiatric admission once medically stabilized for diagnostic clarification, development of coping skills, safety planning and establishment of outpatient services. 08/10/21: Improving insight about psychosis prior to admission and role of substances and possibly superimposed mood episode. She remains interested in psychiatric admission once medically stabilized and then IOP substance use treatment as an outpatient. (1) Alcohol use disorder, moderate, dependence: (2) Post traumatic stress disorder (PTSD): (3) ANGE (generalized anxiety disorder): (4) Unspecified mood [affective] disorder: -Psychiatry will continue to follow -No psychiatric medications indicated at this time -Once medically cleared will plan for psychiatric re-admission Risk Factors Assessment Do You Have Access To A Gun?: No Health Problems: Yes Mental Health Diagnoses: Yes Substance Use Disorders: Yes Previous Attempt: No Hopelessness: No Protective Factors Assessment Responsible for Young Children: Yes Employed: Yes Stable Relationships: Yes Interval History Identifying Information JULIA WEBB is a 35-year-old F who currently lives in [place], has a psychiatric history of alcohol use disorder, depression, anxiety and ADHD with one prior psychiatric hospitalization ([facility] in 2010) and a medical history of diabetes and pancreatitis, was admitted to inpatient psychiatry on 08/06/21 14:36 on a 201 voluntary commitment for disorganized behavior and poor self-care and required medical readmission for acute pancreatitis. Psychiatry was consulted for ongoing management and recommendations. Chief Complaint "I'm ok". Review of Systems Notes see subjective Subjective Subjective Patient was seen & assessed and interval progress reviewed. Leodan reports some nausea this morning but slow improvement in pain. States she slept well. Her mood is stable though she remains somewhat anxious as she looks back on events prior to hospitalization "in my manic state" and trying to piece together what happened. She would like to seek inpatient psychiatric treatment again once medically stable to get established with outpatient resources, learn more coping skills and adjust her medications as she worries her mood could quickly worsen and substance use resume if she doesn't learn better coping skills especially with the stress of her custody case. She doesn't want to do residential substance use treatment but is agreeable to an IOP after psychiatric stabilization. Physical Exam Psychiatric Orientation: alert, oriented x 3 and cooperative Apperance: appropriately dressed and appropriately groomed Eye Contact: good eye contact Motor Behavior: no abnormal motor movements Speech: normal rate/rhythm/volume of speech Affect: euthymic affect Mood: + anxious mood Thought Process: goal directed thought process Thought Content: reality based without delusions Suicidal Thoughts: denies suicidal thoughts Homicidal Thoughts: denies homicidal thoughts Hallucinations: no auditory hallucinations and no visual hallucinations Cognition: recent memory grossly intact, remote memory grossly intact, attention grossly intact and language grossly intact Estimated Intelligence: consistent with education level Insight: + fair insight Judgement: + fair judgement Vital Signs (Past 24 Hours) Last Vital Signs Temp 37.1 C 08/10/21 11:03 Pulse 64 08/10/21 11:03 Resp 20 08/10/21 11:03 BP 117/77 08/10/21 11:03 Pulse Ox 99 08/10/21 11:03 Results & Data ([facility]) Laboratory Results Laboratory Results - last 24 hr 08/09/21 08/09/21 08/10/21 16:36 20:32 07:44 WBC RBC Hgb Hct MCV MCH MCHC RDW Std Deviation RDW Coeff of Arnold Plt Count MPV Immature Gran % (Auto) Neut % (Auto) Lymph % (Auto) [place] % (Auto) Eos % (Auto) Baso % (Auto) Neut # (Auto) Lymph # (Auto) [place] # (Auto) Eos # (Auto) Baso # (Auto) Immature Gran # (Auto) Sodium Potassium Chloride Carbon Dioxide Anion Gap BUN Creatinine Est Cr Clr Drug Dosing Est GFR ( Amer) Est GFR (Non-Af Amer) BUN/Creatinine Ratio Glucose POC Glucose 93 191 H 109 H Calcium Phosphorus Magnesium Total Bilirubin AST ALT Alkaline Phosphatase Total Protein Albumin Globulin Albumin/Globulin Ratio Lipase 08/10/21 08/10/21 08/10/21 08:47 08:47 08:47 WBC 10.51 RBC 3.59 L Hgb 11.3 L Hct 34.8 L MCV 96.9 MCH 31.5 MCHC 32.5 RDW Std Deviation 43.9 RDW Coeff of Arnold 12.4 Plt Count 497 H MPV 10.3 Immature Gran % (Auto) 0.6 Neut % (Auto) 76.3 Lymph % (Auto) 16.6 [place] % (Auto) 4.9 Eos % (Auto) 1.4 Baso % (Auto) 0.2 Neut # (Auto) 8.02 H Lymph # (Auto) 1.74 [place] # (Auto) 0.52 Eos # (Auto) 0.15 Baso # (Auto) 0.02 Immature Gran # (Auto) 0.06 H Sodium 138 Potassium 4.3 Chloride 109 H Carbon Dioxide 24 Anion Gap 5.0 BUN 1 L Creatinine 0.44 L Est Cr Clr Drug Dosing 135.9 Est GFR ( Amer) > 150.0 Est GFR (Non-Af Amer) 131.7 BUN/Creatinine Ratio 3.0 L Glucose 161 H POC Glucose Calcium 8.2 L Phosphorus 2.6 Magnesium 1.5 L Total Bilirubin 0.3 AST 13 L ALT 17 Alkaline Phosphatase 36 L Total Protein 5.9 L Albumin 2.2 L Globulin 3.7 Albumin/Globulin Ratio 0.6 L Lipase 08/10/21 08/10/21 08:47 11:42 WBC RBC Hgb Hct MCV MCH MCHC RDW Std Deviation RDW Coeff of Arnold Plt Count MPV Immature Gran % (Auto) Neut % (Auto) Lymph % (Auto) [place] % (Auto) Eos % (Auto) Baso % (Auto) Neut # (Auto) Lymph # (Auto) [place] # (Auto) Eos # (Auto) Baso # (Auto) Immature Gran # (Auto) Sodium Potassium Chloride Carbon Dioxide Anion Gap BUN Creatinine Est Cr Clr Drug Dosing Est GFR ( Amer) Est GFR (Non-Af Amer) BUN/Creatinine Ratio Glucose POC Glucose 144 H Calcium Phosphorus Magnesium Total Bilirubin AST ALT Alkaline Phosphatase Total Protein Albumin Globulin Albumin/Globulin Ratio Lipase 748 H Current Inpatient Medications Current Inpatient Medications: Current Inpatient Medications Dextrose (Dextrose 50% 50 Ml Syringe) 25 - 50 ml IV UD PRN; Protocol PRN Reason: Hypoglycemia Protocol Stop: 09/07/21 14:17 Glucagon (Glucagon For Inj 1 Mg Vial) 1 mg SQ UD PRN; Protocol PRN Reason: Hypoglycemia Protocol Stop: 09/07/21 14:17 Glucose (Glucose 10 Tabs/Tube) 4 - 8 tabs PO UD PRN; Protocol PRN Reason: Hypoglycemia Protocol Stop: 09/07/21 14:17 Glucose (Glucose 40% Gel 15 Gm Tube) 15 - 30 gm PO UD PRN; Protocol PRN Reason: Hypoglycemia Protocol Stop: 09/07/21 14:17 Heparin Sodium (Porcine) (Heparin Sod 5,000 Unit/0.5 Ml Vial) 5,000 units SQ Q12 [facility] Stop: 09/06/21 20:59 Last Admin: 08/10/21 08:04 Dose: 5,000 units Documented by: Hydromorphone HCl (Hydromorphone Inj 0.5 Mg/0.5 Ml Syr) 0.25 mg IV Q6H PRN PRN Reason: Pain Stop: 08/21/21 14:59 Last Admin: 08/10/21 12:23 Dose: 0.25 mg Documented by: Potassium Chloride/Sodium Chloride (Normal Saline W/20 Meq Kcl) 20 meq in 1,000 mls @ 150 mls/hr IV .Q6H40M [facility]; Protocol Stop: 09/06/21 14:59 Last Admin: 08/10/21 10:29 Dose: 150 mls/hr Documented by: Piperacillin Sod/Tazobactam (Sod 3.375 gm/ Dextrose) 115 mls @ 28.75 mls/hr IV Q8H [facility]; Protocol Stop: 08/17/21 19:59 Last Admin: 08/10/21 12:11 Dose: 28.8 mls/hr Documented by: Thiamine HCl 100 mg/ Syringe 10 mls @ 2 mls/min IV QAM [facility] Stop: 09/06/21 15:14 Last Admin: 08/10/21 08:04 Dose: 2 mls/min Documented by: Folic Acid 1 mg/ Syringe 10 mls @ 5 mls/min IV QAM [facility] Stop: 09/06/21 15:14 Last Admin: 08/10/21 08:04 Dose: 5 mls/min Documented by: Pantoprazole Sodium 40 mg/ (Syringe) 10 mls @ 5 mls/min IV BID [facility] Stop: 09/06/21 20:59 Last Admin: 08/10/21 08:04 Dose: 5 mls/min Documented by: Ondansetron HCl 6 mg/ Dextrose 53 mls @ 200 mls/hr IV Q6H PRN PRN Reason: Nausea And Vomiting Stop: 09/06/21 14:59 Last Infusion: 08/10/21 10:46 Dose: Infused Documented by: Lorazepam (Ativan) 0.5 mg in 1 mls @ 1 mls/min IV Q4H PRN PRN Reason: Anxiety Stop: 09/06/21 14:59 Insulin Aspart (Insulin Aspart Per Unit) 0 units SC ACHS [facility] Stop: 09/08/21 16:44 Last Admin: 08/10/21 12:18 Dose: 3 units Documented by: Miscellaneous (Carbohydrates For Hypoglycemia ) 15 - 30 gm PO UD PRN PRN Reason: Hypoglycemia Protocol Stop: 09/07/21 14:17 Miscellaneous Information (Piperacill/Tazobac Consult Active) 1 ea N/A UD PRN PRN Reason: Consult Stop: 09/06/21 14:59 Zolpidem Tartrate (Zolpidem Tartrate 5 Mg Tab) 5 mg PO HS PRN PRN Reason: Sleep Stop: 09/08/21 01:31 Last Admin: 08/10/21 00:24 Dose: 5 mg Documented by:
--- NOTE | 2021-08-10 16:34 | Hospitalist Progress Note ---
Date of Service August 10, 2021 Assessment & Plan (1) Acute recurrent pancreatitis: (2) Alcohol use disorder, moderate, dependence: (3) Post traumatic stress disorder (PTSD): (4) Insulin dependent diabetes mellitus: (5) ANGE (generalized anxiety disorder): (6) Unspecified mood [affective] disorder: (7) UTI (urinary tract infection): Plan: (1) Acute recurrent pancreatitis: Abdominal pain with nausea vomiting since this morning CT of the abdomen and pelvis did show acute pancreatitis with peripancreatic fluid and the lipase was elevated with minimally elevated white count She was started with intravenous fluid and intravenous Zosyn She will be transferred to medical floor with telemetry N.p.o., IV fluid and pain medications as needed Given the probable fluid collection and possible abscess GI has been consulted She has been feeling a little better without any fever and/or chills Appreciate GI input and recommendation Abdominal pain has been improving and clears started orally Lipase has been improving and abdominal pain is little better White count has been improving and will continue intravenous Zosyn for about 7 days in total If abdominal pain persist most likely another CAT scan should be done to make sure there is no intra-abdominal abscess developing (2) Alcohol use disorder, moderate, dependence: History of alcohol abuse and associated pancreatitis Does not have any withdrawal symptoms Has had recent electrolyte imbalance which was corrected We will check electrolytes and give any medications for possible withdrawal (3) Post traumatic stress disorder (PTSD): Has significant psychiatric history She was transferred to psychiatric floor yesterday for continuation of her psych care We will try to continue her current medications as per psychiatrist She will go back to psych floor when medically stable Appreciate psychiatric input and recommendation Psychiatry following (4) Insulin dependent diabetes mellitus: Has diabetes and requires insulin We will continue with sliding scale insulin coverage Glycemic pharmacist will be consulted She remains n.p.o. for now Continue with SSI (5) ANGE (generalized anxiety disorder): As above (6) Unspecified mood [affective] disorder: As above Has ADHD as well and major depressive disorder (7) UTI (urinary tract infection): Noted to have UTI during this admission in the hospital Developing E. coli and wheezes reasonably pansensitive to antibiotics except ofloxacin Her medication was changed to oral Keflex which will be discontinued She has been started with intravenous Zosyn to cover UTI and for pancreatitis She has been on Zosyn for pancreatitis and possible pancreatic abscess DVT prophylaxis Subcu heparin CODE STATUS Full She will be going back to psych floor following improvement Admission and Anticipated Discharge Date Admission Date: August 07, 2021 Subjective 08/08/2021 The patient was seen and examined in medical telemetry unit She has been complaining of some abdominal pain and nausea but no more vomiting Denies any fever and/or chills Has been feeling a little better today 08/09/2021 The patient was seen and examined in medical telemetry unit She has been complaining of abdominal pain but without any nausea or vomiting She is trying clears orally, small amount at 1 time 08/10/2021 The patient was seen and examined in medical telemetry unit She still complains of mid abdominal and flank pain with some nausea No more vomiting and has been tolerating clears orally Denies any fever and/or chills Review of Systems Review of Systems: All systems reviewed and are unremarkable except as noted below Gastrointestinal: Some abdominal pain which goes to the back with nausea Physical Exam Physical Exam: Lying in bed with some pain in the abdomen at the level of umbilicus Constitutional: + ill appearing and + thin Eyes: PERRL, conjunctivae normal, anicteric sclerae ENMT: external ear and nose normal, oropharynx normal Neck: trachea midline, no thyromegaly Respiratory: no respiratory distress Auscultation: lungs clear to auscultation bilaterally Cardiovascular: Rate/Rhythm: regular rate and regular rhythm; not tachycardic Heart Sounds: normal S1 and normal S2; no murmur Extremities: no edema Gastrointestinal (Abdomen): Inspection/Auscultation: normal bowel sounds; abdomen not distended Percussion/Palpation: + abdomen tender (In the epigastrium without guarding and no rigidity) and abdomen soft Minimal tenderness in the renal angles Musculoskeletal: No acute arthritis in any joint Neurologic: Alert, awake and oriented x3. No focal sensory and motor deficit appreciated Lymphatic: no cervical or axillary lymphadenopathy Results & Data Results & Data ([facility]) Vital Signs (Past 12 Hours) Vital Signs Temp Pulse Pulse Resp BP Pulse Ox 08/10/21 15:27 73 08/10/21 15:10 36.6 C 66 20 115/77 97 08/10/21 11:03 37.1 C 64 20 117/77 99 08/10/21 07:56 36.9 C 80 20 119/82 97 08/10/21 06:19 67 Laboratory Results Short CBC 08/10/21 Range/Units 08:47 WBC 10.51 (4.8-10.8) K/uL Hgb 11.3 L (12.0-16.0) g/dL Hct 34.8 L (37-47) % Plt Count 497 H (130-400) K/uL BMP 08/10/21 08:47 Sodium 138 Potassium 4.3 Chloride 109 H Carbon Dioxide 24 BUN 1 L Creatinine 0.44 L Glucose 161 H Calcium 8.2 L Liver Function 08/10/21 Range/Units 08:47 Total Bilirubin 0.3 (0.2-1) mg/dl AST 13 L (15-37) U/L ALT 17 (12-78) Alkaline Phosphatase 36 L (45-117) U/L Albumin 2.2 L (3.4-5.0) gm/dl Medications Administered Current Inpatient Medications Dextrose (Dextrose 50% 50 Ml Syringe) 25 - 50 ml IV UD PRN; Protocol PRN Reason: Hypoglycemia Protocol Stop: 09/07/21 14:17 Glucagon (Glucagon For Inj 1 Mg Vial) 1 mg SQ UD PRN; Protocol PRN Reason: Hypoglycemia Protocol Stop: 09/07/21 14:17 Glucose (Glucose 10 Tabs/Tube) 4 - 8 tabs PO UD PRN; Protocol PRN Reason: Hypoglycemia Protocol Stop: 09/07/21 14:17 Glucose (Glucose 40% Gel 15 Gm Tube) 15 - 30 gm PO UD PRN; Protocol PRN Reason: Hypoglycemia Protocol Stop: 09/07/21 14:17 Heparin Sodium (Porcine) (Heparin Sod 5,000 Unit/0.5 Ml Vial) 5,000 units SQ Q12 [facility] Stop: 09/06/21 20:59 Last Admin: 08/10/21 08:04 Dose: 5,000 units Documented by: Hydromorphone HCl (Hydromorphone Inj 0.5 Mg/0.5 Ml Syr) 0.25 mg IV Q6H PRN PRN Reason: Pain Stop: 08/21/21 14:59 Last Admin: 08/10/21 12:23 Dose: 0.25 mg Documented by: Potassium Chloride/Sodium Chloride (Normal Saline W/20 Meq Kcl) 20 meq in 1,000 mls @ 150 mls/hr IV .Q6H40M [facility]; Protocol Stop: 09/06/21 14:59 Last Admin: 08/10/21 10:29 Dose: 150 mls/hr Documented by: Piperacillin Sod/Tazobactam (Sod 3.375 gm/ Dextrose) 115 mls @ 28.75 mls/hr IV Q8H [facility]; Protocol Stop: 08/17/21 19:59 Last Infusion: 08/10/21 16:11 Dose: Infused Documented by: Thiamine HCl 100 mg/ Syringe 10 mls @ 2 mls/min IV QAM [facility] Stop: 09/06/21 15:14 Last Admin: 08/10/21 08:04 Dose: 2 mls/min Documented by: Folic Acid 1 mg/ Syringe 10 mls @ 5 mls/min IV QAM [facility] Stop: 09/06/21 15:14 Last Admin: 08/10/21 08:04 Dose: 5 mls/min Documented by: Pantoprazole Sodium 40 mg/ (Syringe) 10 mls @ 5 mls/min IV BID [facility] Stop: 09/06/21 20:59 Last Admin: 08/10/21 08:04 Dose: 5 mls/min Documented by: Ondansetron HCl 6 mg/ Dextrose 53 mls @ 200 mls/hr IV Q6H PRN PRN Reason: Nausea And Vomiting Stop: 09/06/21 14:59 Last Infusion: 08/10/21 10:46 Dose: Infused Documented by: Lorazepam (Ativan) 0.5 mg in 1 mls @ 1 mls/min IV Q4H PRN PRN Reason: Anxiety Stop: 09/06/21 14:59 Insulin Aspart (Insulin Aspart Per Unit) 0 units SC [facility] Stop: 09/08/21 16:44 Last Admin: 08/10/21 12:18 Dose: 3 units Documented by: Miscellaneous (Carbohydrates For Hypoglycemia ) 15 - 30 gm PO UD PRN PRN Reason: Hypoglycemia Protocol Stop: 09/07/21 14:17 Miscellaneous Information (Piperacill/Tazobac Consult Active) 1 ea N/A UD PRN PRN Reason: Consult Stop: 09/06/21 14:59 Zolpidem Tartrate (Zolpidem Tartrate 5 Mg Tab) 5 mg PO HS PRN PRN Reason: Sleep Stop: 09/08/21 01:31 Last Admin: 08/10/21 00:24 Dose: 5 mg Documented by:
[2021-08-11] MEDS: NSS + 20MEQ KCL 20 MEQ/1,000 ML BAG IV SCH ×4 (00:54→22:31)
[2021-08-11] MEDS: ZOLPIDEM TARTRATE 5 MG TAB PO PRN (01:18)
[2021-08-11] MEDS: PIPERACILLIN/TAZOBACTAM 3.375 GM in DEXTROSE 5% 100 ML IV SCH ×3 (04:37→21:28)
[2021-08-11 07:48] LABS: Blood Urea Nitrogen < 1 mg/dl (7-18); Calcium 8.1 mg/dl (8.5-10.1); Carbon Dioxide 24 mmol/L (21-32); Chloride 110 mmol/L (98-107); Creatinine Clr Calc Pharmacy 132.9 ml/min; Est GFR (African American) > 150.0 ml/min; Est GFR (Non-African American) 130.7 ml/min; Glucose 119 mg/dl (70-99); Lipase 676 U/L (73-393); Sodium 139 mmol/L (136-145)
[2021-08-11] MEDS: FOLIC ACID 1 MG in SYRINGE 9.8 ML IV SCH (08:55)
[2021-08-11] MEDS: THIAMINE HCL 100 MG in SYRINGE 9 ML IV SCH (08:55)
[2021-08-11] MEDS: PANTOprazole 40 MG in SYRINGE 0 ML IV SCH ×2 (08:56→20:49)
[2021-08-11] MEDS: INSULIN ASPART PER UNIT SC SCH ×4 (08:59→20:50)
[2021-08-11] MEDS: HYDROmorphone INJ 0.5 MG/0.5 ML SYR IV PRN ×3 (09:03→21:33)
[2021-08-11] MEDS: HEPARIN SOD 5,000 UNIT/0.5 ML VIAL SQ SCH ×3 (09:13→22:06)
[2021-08-11] MEDS: ondansetron HCL 6 MG in DEXTROSE 5% 50 ML IV PRN (12:07)
--- NOTE | 2021-08-11 14:29 | Communication Note ---
Date of Service: August 11, 2021 Leodan continues to have some pain and nausea. Mood is stable, she remains motivated and appropriate for inpatient psychiatric treatment once medically st able.
--- NOTE | 2021-08-11 18:41 | Hospitalist Progress Note ---
Date of Service August 11, 2021 Assessment & Plan (1) Acute recurrent pancreatitis: (2) Alcohol use disorder, moderate, dependence: (3) Post traumatic stress disorder (PTSD): (4) Insulin dependent diabetes mellitus: (5) ANGE (generalized anxiety disorder): (6) Unspecified mood [affective] disorder: (7) UTI (urinary tract infection): Plan: Acute recurrent pancreatitis: Secondary to alcohol use Possible Abscess --CT of the abdomen and pelvis did show acute pancreatitis with peripancreatic fluid Lipase elevated, trended down Continue IV Zosyn to complete 7 day course Appreciate GI input Will need repeat CT in 4 to 6 weeks Counseled to avoid alcohol Advance diet as tolerated Continue IV fluids Alcohol use disorder, moderate, dependence: H/O Alcohol abuse No withdrawal symptoms Continue Thiamine, folic acid Post traumatic stress disorder (PTSD): Has significant psychiatric history Continue current medications as per psychiatrist Appreciate Psychiatry Input Consider discharge to psychiatry unit when medically stable Insulin dependent diabetes mellitus: Continue with sliding scale insulin coverage Glycemic pharmacist will be consulted ANGE (generalized anxiety disorder): As above Unspecified mood [affective] disorder: ADHD as well and major depressive disorder as above UTI (urinary tract infection): Urine Cx grew E coli Continue Zosyn DVT Px: Lovenox SQ CODE STATUS Full Code Admission and Anticipated Discharge Date Admission Date: August 07, 2021 Subjective Patient is seen and examined at bedside States having intermittent abdominal discomfort Denies any nausea, vomiting, chest pain, dyspnea, dizziness Offers no other complaints Review of Systems Review of Systems: All systems reviewed & are unremarkable except as noted in Subjective Physical Exam Physical Exam: Physical Exam: Vitals signs as noted above General Appearance:Moderately built and nourished, no apparent distress Head: normocephalic, Atraumatic Eyes: normal inspection, EOMI Neck: supple, Trachea midline Respiratory/Chest: Normal breath sounds, CTA Cardiovascular: S1, S2, No murmur Abdomen/GI:Soft, mild tender, Bowel sounds present Extremities/Musculoskeletal:normal inspection, no edema Neurologic/Psych:AAOX3, grossly no focal neurological deficits Skin: normal color, warm Results & Data Results & Data ([facility]) Vital Signs (Past 12 Hours) Vital Signs Temp Pulse Pulse Resp BP BP Pulse Ox 08/11/21 16:40 65 08/11/21 16:03 36.8 C 58 L 20 109/70 98 08/11/21 11:40 36.5 C 63 20 115/78 97 08/11/21 07:54 75 08/11/21 07:48 36.8 C 67 18 118/79 98 Laboratory Results [facility] 08/11/21 06:37 Sodium 139 Potassium 4.0 Chloride 110 H Carbon Dioxide 24 BUN < 1 L Creatinine 0.45 L Glucose 119 H Calcium 8.1 L
[2021-08-12] MEDS: ZOLPIDEM TARTRATE 5 MG TAB PO PRN ×2 (00:33→23:13)
[2021-08-12] MEDS: PIPERACILLIN/TAZOBACTAM 3.375 GM in DEXTROSE 5% 100 ML IV SCH ×3 (04:21→20:23)
[2021-08-12] MEDS ORDERED: Nursing to Pharmacy Communication SCH (04:30)
[2021-08-12] MEDS: HYDROmorphone INJ 0.5 MG/0.5 ML SYR IV PRN ×3 (04:59→20:29)
[2021-08-12] MEDS: ondansetron HCL 6 MG in DEXTROSE 5% 50 ML IV PRN ×2 (05:06→12:56)
[2021-08-12] MEDS: NSS + 20MEQ KCL 20 MEQ/1,000 ML BAG IV SCH ×4 (05:27→23:01)
[2021-08-12 07:36] LABS: Hematocrit (blood only) 34.6 % (37-47); Hemoglobin 11.5 g/dL (12.0-16.0); Mean Corpuscular Hemoglobin 31.9 pg (25-34); Mean Corpuscular Hgb Conc 33.2 g/dL (32-36); Mean Corpuscular Volume 96.1 fL (80-100); Mean Platelet Volume 9.9 fL (7.4-10.4); Platelet Count 429 K/uL (130-400); RDW Coefficient of Variation 12.3 % (11.5-14.5); RDW Standard Deviation 43.2 fL (36.4-46.3); White Blood Count 7.48 K/uL (4.8-10.8)
[2021-08-12 07:59] LABS: BUN Creatinine Ratio 4.5 (10-20); Blood Urea Nitrogen 2 mg/dl (7-18); Calcium 8.5 mg/dl (8.5-10.1); Carbon Dioxide 22 mmol/L (21-32); Chloride 109 mmol/L (98-107); Creatinine Clr Calc Pharmacy 148.1 ml/min; Est GFR (African American) > 150.0 ml/min; Est GFR (Non-African American) 131.7 ml/min; Glucose 154 mg/dl (70-99); Potassium 4.2 mmol/L (3.5-5.1); Sodium 137 mmol/L (136-145)
[2021-08-12] MEDS: PANTOprazole 40 MG in SYRINGE 0 ML IV SCH ×2 (08:17→20:26)
[2021-08-12] MEDS: FOLIC ACID 1 MG TAB PO SCH (08:18)
[2021-08-12] MEDS: INSULIN ASPART PER UNIT SC SCH ×4 (08:18→20:26)
[2021-08-12] MEDS: THIAMINE HCL 100 MG TAB PO SCH (08:18)
[2021-08-12] MEDS: ENOXAPARIN INJ 40 MG/0.4 ML SYR SQ SCH (08:18)
[2021-08-12] MEDS ORDERED: LORazepam 0.5 MG TAB PO PRN (11:50)
[2021-08-12] MEDS: ACETAMINOPHEN 325 MG TAB PO PRN (16:25)
--- NOTE | 2021-08-12 19:57 | Hospitalist Progress Note ---
Date of Service August 12, 2021 Assessment & Plan (1) Acute recurrent pancreatitis: (2) Alcohol use disorder, moderate, dependence: (3) Post traumatic stress disorder (PTSD): (4) Insulin dependent diabetes mellitus: (5) ANGE (generalized anxiety disorder): (6) Unspecified mood [affective] disorder: (7) UTI (urinary tract infection): Plan: Acute recurrent pancreatitis: Secondary to alcohol use Possible Abscess --CT of the abdomen and pelvis did show acute pancreatitis with peripancreatic fluid Lipase elevated, trended down Continue IV Zosyn to complete 7 day course Appreciate GI input Will need repeat CT in 4 to 6 weeks Counseled to avoid alcohol Did not tolerate low-fat diet today We will transition to full liquid diet today Continue IV fluids Will request GI to reevaluate if necessary Alcohol use disorder, moderate, dependence: H/O Alcohol abuse No withdrawal symptoms Continue Thiamine, folic acid Post traumatic stress disorder (PTSD): Has significant psychiatric history Continue current medications as per psychiatrist Appreciate Psychiatry Input Consider discharge to psychiatry unit when medically stable Insulin dependent diabetes mellitus: Continue with sliding scale insulin coverage Glycemic pharmacist will be consulted ANGE (generalized anxiety disorder): As above Unspecified mood [affective] disorder: ADHD as well and major depressive disorder as above UTI (urinary tract infection): Urine Cx grew E coli Continue Zosyn DVT Px: Lovenox SQ CODE STATUS Full Code Admission and Anticipated Discharge Date Admission Date: August 07, 2021 Subjective Patient is seen and examined at bedside States having intermittent epigastric pain Did not tolerate regular food today Also reports nausea but no vomiting Poor appetite Denies any nausea, vomiting, chest pain, dyspnea, dizziness Review of Systems Review of Systems: All systems reviewed & are unremarkable except as noted in Subjective Physical Exam Physical Exam: Physical Exam: Vitals signs as noted above General Appearance:Moderately built and nourished, no apparent distress Head: normocephalic, Atraumatic Eyes: normal inspection, EOMI Neck: supple, Trachea midline Respiratory/Chest: Normal breath sounds, CTA Cardiovascular: S1, S2, No murmur Abdomen/GI:Soft, mild epigastric tender, Bowel sounds present Extremities/Musculoskeletal:normal inspection, no edema Neurologic/Psych:AAOX3, grossly no focal neurological deficits Skin: normal color, warm Results & Data Results & Data ([facility]) Vital Signs (Past 12 Hours) Vital Signs Temp Pulse Pulse Resp BP Pulse Ox 08/12/21 19:23 36.8 C 66 16 137/88 97 08/12/21 15:29 66 08/12/21 15:27 36.9 C 72 18 120/82 98 08/12/21 11:24 36.9 C 79 19 123/85 98 08/12/21 10:08 72 Laboratory Results Short CBC 08/12/21 Range/Units 07:18 WBC 7.48 (4.8-10.8) K/uL Hgb 11.5 L (12.0-16.0) g/dL Hct 34.6 L (37-47) % Plt Count 429 H (130-400) K/uL BMP 08/12/21 07:18 Sodium 137 Potassium 4.2 Chloride 109 H Carbon Dioxide 22 BUN 2 L Creatinine 0.44 L Glucose 154 H Calcium 8.5
[2021-08-13] MEDS: NSS + 20MEQ KCL 20 MEQ/1,000 ML BAG IV SCH ×4 (03:28→19:16)
[2021-08-13] MEDS: PIPERACILLIN/TAZOBACTAM 3.375 GM in DEXTROSE 5% 100 ML IV SCH ×3 (03:28→20:17)
[2021-08-13] MEDS: HYDROmorphone INJ 0.5 MG/0.5 ML SYR IV PRN (07:36)
[2021-08-13] MEDS: INSULIN ASPART PER UNIT SC SCH ×4 (08:40→22:22)
[2021-08-13] MEDS: ondansetron HCL 6 MG in DEXTROSE 5% 50 ML IV PRN ×2 (08:46→17:15)
[2021-08-13 08:47] LABS: BUN Creatinine Ratio 5.4 (10-20); Blood Urea Nitrogen 2 mg/dl (7-18); Calcium 8.6 mg/dl (8.5-10.1); Carbon Dioxide 22 mmol/L (21-32); Chloride 109 mmol/L (98-107); Creatinine Clr Calc Pharmacy 141.7 ml/min; Est GFR (African American) > 150.0 ml/min; Est GFR (Non-African American) 129.8 ml/min; Glucose 134 mg/dl (70-99); Potassium 4.2 mmol/L (3.5-5.1); Sodium 137 mmol/L (136-145)
[2021-08-13] MEDS: FOLIC ACID 1 MG TAB PO SCH (10:28)
[2021-08-13] MEDS: PANTOprazole 40 MG in SYRINGE 0 ML IV SCH ×2 (10:28→20:15)
[2021-08-13] MEDS: ENOXAPARIN INJ 40 MG/0.4 ML SYR SQ SCH (10:28)
[2021-08-13] MEDS: THIAMINE HCL 100 MG TAB PO SCH (10:28)
[2021-08-13] MEDS: ACETAMINOPHEN 325 MG TAB PO PRN (14:02)
[2021-08-13] MEDS: oxyCODONE/ACETAMINOPHEN 5mg/325mg TAB PO PRN (17:14)
[2021-08-13] MEDS ORDERED: HYDROmorphone INJ 0.5 MG/0.5 ML SYR IV ONE (17:17)
[2021-08-13] MEDS ORDERED: HYDROmorphone INJ 0.5 MG/0.5 ML SYR ONE (17:20)
--- NOTE | 2021-08-13 18:30 | Hospitalist Progress Note ---
Date of Service August 13, 2021 Assessment & Plan (1) Acute recurrent pancreatitis: (2) Alcohol use disorder, moderate, dependence: (3) Post traumatic stress disorder (PTSD): (4) Insulin dependent diabetes mellitus: (5) ANGE (generalized anxiety disorder): (6) Unspecified mood [affective] disorder: (7) UTI (urinary tract infection): Plan: Acute recurrent pancreatitis: Secondary to alcohol use Possible Abscess --CT of the abdomen and pelvis did show acute pancreatitis with peripancreatic fluid Lipase elevated, trended down Continue IV Zosyn to complete 7 day course Appreciate GI input Will need repeat CT in 4 to 6 weeks Counseled to avoid alcohol Continue IV fluids Will request GI to reevaluate if necessary Advance diet as tolerated We will repeat CT abdomen today Alcohol use disorder, moderate, dependence: H/O Alcohol abuse No withdrawal symptoms Continue Thiamine, folic acid Post traumatic stress disorder (PTSD): Has significant psychiatric history Continue current medications as per psychiatrist Appreciate Psychiatry Input Consider discharge to psychiatry unit when medically stable Insulin dependent diabetes mellitus: Continue with sliding scale insulin coverage Glycemic pharmacist will be consulted ANGE (generalized anxiety disorder): As above Unspecified mood [affective] disorder: ADHD as well and major depressive disorder as above UTI (urinary tract infection): Urine Cx grew E coli Completed Zosyn course DVT Px: Lovenox SQ CODE STATUS Full Code Admission and Anticipated Discharge Date Admission Date: August 07, 2021 Subjective Patient is seen and examined at bedside States feeling better today Requesting to advance diet Abdominal pain improved but later worsened as per RN Also feels nauseous after low-fat diet Denies any nausea, vomiting, chest pain, dyspnea, dizziness Review of Systems Review of Systems: All systems reviewed & are unremarkable except as noted in Subjective Physical Exam Physical Exam: Physical Exam: Vitals signs as noted above General Appearance:Moderately built and nourished, no apparent distress Head: normocephalic, Atraumatic Eyes: normal inspection, EOMI Neck: supple, Trachea midline Respiratory/Chest: Normal breath sounds, CTA Cardiovascular: S1, S2, No murmur Abdomen/GI:Soft, mild epigastric tender, Bowel sounds present Extremities/Musculoskeletal:normal inspection, no edema Neurologic/Psych:AAOX3, grossly no focal neurological deficits Skin: normal color, warm Results & Data Results & Data ([facility]) Vital Signs (Past 12 Hours) Vital Signs Temp Pulse Pulse Resp BP BP Pulse Ox 08/13/21 15:30 36.9 C 67 18 150/92 H 98 08/13/21 15:00 71 08/13/21 11:02 36.8 C 64 18 115/74 97 08/13/21 07:33 36.8 C 78 17 118/79 98 08/13/21 07:00 70 Laboratory Results BMP 08/13/21 07:24 Sodium 137 Potassium 4.2 Chloride 109 H Carbon Dioxide 22 BUN 2 L Creatinine 0.46 L Glucose 134 H Calcium 8.6
--- NOTE | 2021-08-13 18:38 | CT Scan Report ---
CT SCAN OF THE ABDOMEN AND PELVIS WITHOUT IV CONTRAST CLINICAL HISTORY: Pancreatitis. COMPARISON STUDY: Abdominal CT dated 08/07/2021. TECHNIQUE: CT scan of the abdomen and pelvis is performed from the lung bases to the proximal femora. Images are reviewed in the axial, sagittal, and coronal planes. IV contrast was not administered for this examination. Note that the examination was performed in significantly suboptimal fashion withou t oral and IV contrast. A dose lowering technique was utilized adhering to the principles of ALARA. CT DOSE: 277.53 mGy.cm FINDINGS: Lung bases: The heart is normal in size and without pericardial effusion. There are trace pleural eff usions with bibasilar atelectasis. Liver: The unenhanced liver is enlarged, measuring 18.7 cm in length. The liver demonstrates diffusel y diminished attenuation consistent with hepatic steatosis. Fatty sparing is noted adjacent to gallbl adder fossa. There is no intrahepatic biliary ductal dilatation. Gallbladder: Unremarkable. Spleen: Normal in size and attenuation. Pancreas: The pancreas is enlarged and edematous. There is significant peripancreatic inflammation an d fluid consistent with acute pancreatitis. This is similar to 08/07/2021 examination. There is no ap parent parenchymal defect within the distal pancreatic body (image 133) subcentimeter pancreatic necr osis is not excluded. No organized. Peripancreatic fluid collection is clearly seen on this unenhance d examination. Fluid tracks inferiorly within the left retroperitoneal space. The pancreatic duct is grossly normal in caliber. Adrenal glands: Unremarkable. Kidneys: The unenhanced kidneys are normal in size and without hydronephrosis. There are no renal janusz culi identified. Cortical scarring is noted in the left upper pole. There is no evidence of contour d eforming renal mass lesion. Abdominal vasculature: The abdominal aorta is normal in course and caliber. Bowel: There is mild colonic diverticulosis without CT evidence of acute diverticulitis. No bowel obs truction is identified. The appendix is well-visualized and normal. Peritoneum: No intraperitoneal free air is identified. There is a moderate, free fluid in the pelvis. There is a fat-containing umbilical hernia. Foci of induration within the left lower quadrant abdomi nal wall are likely related to subcutaneous injections. Lymphadenopathy: None. Pelvic viscera: There are calcified uterine fibroids. The bladder is normal as visualized. No adnexal lesion is seen. Skeletal structures: No lytic or blastic lesions are seen. Mild sclerotic change is noted in the sacr oiliac joints. IMPRESSION: 1. Significantly suboptimal examination without oral and IV contrast. 2. Again seen are findings of severe acute pancreatitis. 3. Question a parenchymal defect in the distal pancreatic body. Necrotizing pancreatitis is not exclu ded. 4. No organized peripancreatic fluid collection is clearly identified on this unenhanced examination. 5. Fluid is seen tracking inferiorly within the retroperitoneum and there is a moderate volume of iris e fluid in the pelvis. 6. Trace pleural effusions. 7. The liver is mildly enlarged and steatotic. 8. Additional findings as above. ACT 112: Negative or not required by law. Electronically signed by: Raghu Mariano M.D. 08/13/2021 6:36 PM
[2021-08-13] MEDS ORDERED: KETOROLAC TROMETHAMINE 15 MG/ML VIAL IV ONE (19:29)
[2021-08-14] MEDS: NSS + 20MEQ KCL 20 MEQ/1,000 ML BAG IV SCH ×3 (00:08→12:43)
[2021-08-14] MEDS: ZOLPIDEM TARTRATE 5 MG TAB PO PRN ×2 (00:12→23:54)
[2021-08-14] MEDS: PIPERACILLIN/TAZOBACTAM 3.375 GM in DEXTROSE 5% 100 ML IV SCH ×2 (03:57→12:05)
[2021-08-14] MEDS: oxyCODONE/ACETAMINOPHEN 5mg/325mg TAB PO PRN ×2 (08:30→18:25)
[2021-08-14] MEDS: THIAMINE HCL 100 MG TAB PO SCH (08:31)
[2021-08-14] MEDS: FOLIC ACID 1 MG TAB PO SCH (08:31)
[2021-08-14] MEDS: ENOXAPARIN INJ 40 MG/0.4 ML SYR SQ SCH (08:32)
--- NOTE | 2021-08-14 08:58 | Communication Note ---
Date of Service: August 14, 2021 interim progress reviewed, liaison rounding regularly and patient denies suicidal ideation and remains clear. She is continuing to have pain requiring IV medications and unable to tolerate advance diet. It is a holiday weekend so we haven't been able to confirm a referral to dual IOP with [facility] but seems most appropriate level of care following discharge. Will review Abilify trial when patient is taking more PO.
[2021-08-14] MEDS: ondansetron HCL 6 MG in DEXTROSE 5% 50 ML IV PRN ×2 (09:02→16:57)
[2021-08-14] MEDS: INSULIN ASPART PER UNIT SC SCH ×4 (09:34→22:55)
[2021-08-14] MEDS: PANTOprazole 40 MG in SYRINGE 0 ML IV SCH ×2 (12:04→20:16)
--- NOTE | 2021-08-14 18:03 | Hospitalist Progress Note ---
Date of Service August 14, 2021 Assessment & Plan (1) Acute recurrent pancreatitis: (2) Alcohol use disorder, moderate, dependence: (3) Post traumatic stress disorder (PTSD): (4) Insulin dependent diabetes mellitus: (5) ANGE (generalized anxiety disorder): (6) Unspecified mood [affective] disorder: (7) UTI (urinary tract infection): Plan: Acute recurrent pancreatitis: Secondary to alcohol use Possible Abscess --CT of the abdomen and pelvis did show acute pancreatitis with peripancreatic fluid --Repeat CT:findings of severe acute pancreatitis. Question a parenchymal defect in the distal pancreatic body. Necrotizing pancreatitis is not excluded. No organized peripancreatic fluid collection is clearly identified on this unenhanced examination. Fluid is seen tracking inferiorly within the retroperitoneum and there is a moderate volume of free fluid in the pelvis. Liver steatotic. -Lipase elevated, trended down Completed IV Zosyn 7 day course Appreciate GI input Will need repeat CT in 4 to 6 weeks Counseled to avoid alcohol Continue IV fluids Discussed with GI on repeat CTA abd findings on 08/14/21: Recommends conservative management Advance diet as tolerated Continue current management Alcohol use disorder, moderate, dependence: H/O Alcohol abuse No withdrawal symptoms Continue Thiamine, folic acid Post traumatic stress disorder (PTSD): Has significant psychiatric history Continue current medications as per psychiatrist Appreciate Psychiatry Input Consider discharge to psychiatry unit when medically stable Insulin dependent diabetes mellitus: Continue with sliding scale insulin coverage Glycemic pharmacist will be consulted ANGE (generalized anxiety disorder): As above Unspecified mood [affective] disorder: ADHD as well and major depressive disorder as above UTI (urinary tract infection): Urine Cx grew E coli Completed Zosyn course DVT Px: Lovenox SQ CODE STATUS Full Code Admission and Anticipated Discharge Date Admission Date: August 07, 2021 Subjective Patient is seen and examined at bedside Abdominal pain much improved today Discussed with GI today Patient requests to advance diet Offers no other complaints Denies any nausea, vomiting, chest pain, dyspnea, dizziness Review of Systems Review of Systems: All systems reviewed & are unremarkable except as noted in Subjective Physical Exam Physical Exam: Physical Exam: Vitals signs as noted above General Appearance:Moderately built and nourished, no apparent distress Head: normocephalic, Atraumatic Eyes: normal inspection, EOMI Neck: supple, Trachea midline Respiratory/Chest: Normal breath sounds, CTA Cardiovascular: S1, S2, No murmur Abdomen/GI:Soft, mild epigastric tender, Bowel sounds present Extremities/Musculoskeletal:normal inspection, no edema Neurologic/Psych:AAOX3, grossly no focal neurological deficits Skin: normal color, warm Results & Data Results & Data ([facility]) Vital Signs (Past 12 Hours) Vital Signs Temp Pulse Pulse Resp BP BP Pulse Ox 08/14/21 16:13 37.3 C 75 18 102/69 98 08/14/21 15:00 78 08/14/21 11:15 37.2 C 70 18 116/79 99 08/14/21 07:32 36.9 C 70 18 145/94 H 97 08/14/21 07:00 66
[2021-08-14] MEDS: ACETAMINOPHEN 325 MG TAB PO PRN (23:51)
[2021-08-15 08:13] LABS: Hematocrit (blood only) 34.3 % (37-47); Hemoglobin 11.4 g/dL (12.0-16.0); Mean Corpuscular Hemoglobin 31.5 pg (25-34); Mean Corpuscular Hgb Conc 33.2 g/dL (32-36); Mean Corpuscular Volume 94.8 fL (80-100); Mean Platelet Volume 10.4 fL (7.4-10.4); Platelet Count 338 K/uL (130-400); RDW Coefficient of Variation 12.3 % (11.5-14.5); RDW Standard Deviation 42.5 fL (36.4-46.3); Red Blood Count 3.62 M/uL (4.2-5.4); White Blood Count 5.87 K/uL (4.8-10.8)
[2021-08-15] MEDS: THIAMINE HCL 100 MG TAB PO SCH (08:30)
[2021-08-15] MEDS: FOLIC ACID 1 MG TAB PO SCH (08:30)
[2021-08-15] MEDS: ENOXAPARIN INJ 40 MG/0.4 ML SYR SQ SCH (08:30)
[2021-08-15] MEDS: PANTOprazole 40 MG in SYRINGE 0 ML IV SCH (08:31)
[2021-08-15] MEDS: INSULIN ASPART PER UNIT SC SCH ×4 (08:32→22:12)
[2021-08-15 08:37] LABS: BUN Creatinine Ratio 7.4 (10-20); Blood Urea Nitrogen 3 mg/dl (7-18); Calcium 8.8 mg/dl (8.5-10.1); Carbon Dioxide 25 mmol/L (21-32); Chloride 108 mmol/L (98-107); Est GFR (African American) > 150.0 ml/min; Est GFR (Non-African American) 132.7 ml/min; Glucose 141 mg/dl (70-99); Potassium 3.8 mmol/L (3.5-5.1); Sodium 138 mmol/L (136-145)
[2021-08-15] MEDS: oxyCODONE/ACETAMINOPHEN 5mg/325mg TAB PO PRN ×2 (08:38→21:05)
[2021-08-15] MEDS: NSS + 20MEQ KCL 20 MEQ/1,000 ML BAG IV SCH (08:44)
[2021-08-15] MEDS: ondansetron HCL 6 MG in DEXTROSE 5% 50 ML IV PRN ×2 (09:41→17:27)
--- NOTE | 2021-08-15 12:54 | Psychiatric Progress Note ---
Date of Service August 15, 2021 Impression / Recommendations Impression 35 yo woman with history of anxiety, depression, PTSD and possible BPAD with alcohol use disorder requiring medical admission last week for concern for complicated withdrawal then briefly admitted to inpatient psychiatry before developing recurrent pancreatitis. Will hold off on starting any psychiatric medications in the setting of acute pancreatitis. No evidence for elevated mood, lability seen during her first medical admission suggesting possible withdrawal delirium contributing most significantly to this. 08/15/21: psychiatrically stable for discharge to outpatient level of care. (1) Unspecified mood [affective] disorder: (2) Alcohol use disorder, moderate, dependence: Risks/benefits/alternatives were reviewed re: antipsychotics for mood and depression. Discussion included but was not limited to metabolic side effects, risks of TD and suicidal thoughts. There were no abnormal motor movements at baseline. Reviewed need for monitoring of metabolic parameters (glucose, fasting lipids) and she reports good follow up/relationship with Dr. Nathan. She agreed to a trial of Abilify starting 2 mg daily when she is feeling well enough for oral med trial. Reviewed that can be started on an outpatient basis but typically the hospitalist service will provide 30 day prescription at discharge. She has signed release/referral faxed to [facility] for consideration for IOP and/or dual dx outpatient with medication management but can't confirm appointment date and time today as closed for the weekend/holiday. Risk Factors Assessment Do You Have Access To A Gun?: No Health Problems: Yes Mental Health Diagnoses: Yes Substance Use Disorders: Yes Previous Attempt: No Hopelessness: No Protective Factors Assessment Responsible for Young Children: Yes Employed: Yes Stable Relationships: Yes Interval History Identifying Information JULIA WEBB is a 35-year-old F who currently lives in [place], has a psychiatric history of alcohol use disorder, depression, anxiety and ADHD with one prior psychiatric hospitalization ([facility] in 2010) and a medical history of diabetes and pancreatitis, was admitted to inpatient psychiatry on 08/06/21 14:36 on a 201 voluntary commitment for disorganized behavior and poor self-care and required medical readmission for acute pancreatitis. Chief Complaint "I'm getting there", referring to her pain level and ability to eat Review of Systems Notes ongoing N and abdominal pain but much improved, only able to tolerate bland/low fat foods. Subjective Subjective Patient was seen & assessed and interval progress reviewed with liaison. She reports improved mood and interest in medications for "cravings". Reviewed that Naltrexone would need to be deferred to outpatient given opiates given here for her pancreatitis. She denies suicidal thoughts and is well organized. Most of the symptoms that were indications for inpatient hospitalization initially were clearly ongoing ETOH withdrawal syndrome and she is agreeable to referral to [facility]. She has been a patient there before and is willing to return. Physical Exam Psychiatric Orientation: alert and oriented x 3 Apperance: appropriately dressed and appropriately groomed Eye Contact: good eye contact Motor Behavior: no abnormal motor movements Speech: normal rate/rhythm/volume of speech Affect: no depressed affect Mood: no depressed mood Thought Process: goal directed thought process Thought Content: reality based without delusions Suicidal Thoughts: denies suicidal thoughts Homicidal Thoughts: denies homicidal thoughts Hallucinations: no auditory hallucinations and no visual hallucinations Cognition: attention grossly intact and language grossly intact Estimated Intelligence: consistent with education level Vital Signs (Past 24 Hours) Last Vital Signs Temp 37.4 C 08/15/21 11:30 Pulse 72 08/15/21 11:30 Resp 16 08/15/21 11:30 BP 122/74 08/15/21 11:30 Pulse Ox 98 08/15/21 11:30 Results & Data ([facility]) Laboratory Results Laboratory Results - last 24 hr 08/14/21 08/14/21 08/15/21 16:35 20:07 07:46 WBC 5.87 RBC 3.62 L Hgb 11.4 L Hct 34.3 L MCV 94.8 MCH 31.5 MCHC 33.2 RDW Std Deviation 42.5 RDW Coeff of Arnold 12.3 Plt Count 338 MPV 10.4 Sodium Potassium Chloride Carbon Dioxide Anion Gap BUN Creatinine Est Cr Clr Drug Dosing Est GFR ( Amer) Est GFR (Non-Af Amer) BUN/Creatinine Ratio Glucose POC Glucose 171 H 104 H Calcium 08/15/21 08/15/21 08/15/21 07:46 07:49 11:44 WBC RBC Hgb Hct MCV MCH MCHC RDW Std Deviation RDW Coeff of Arnold Plt Count MPV Sodium 138 Potassium 3.8 Chloride 108 H Carbon Dioxide 25 Anion Gap 6.0 BUN 3 L Creatinine 0.43 L Est Cr Clr Drug Dosing 152.0 Est GFR ( Amer) > 150.0 Est GFR (Non-Af Amer) 132.7 BUN/Creatinine Ratio 7.4 L Glucose 141 H POC Glucose 128 H 138 H Calcium 8.8 Current Inpatient Medications Current Inpatient Medications: Current Inpatient Medications Acetaminophen (Acetaminophen 325 Mg Tab) 650 mg PO Q6H PRN PRN Reason: Pain Stop: 09/11/21 16:05 Last Admin: 08/14/21 23:51 Dose: 650 mg Documented by: Dextrose (Dextrose 50% 50 Ml Syringe) 25 - 50 ml IV UD PRN; Protocol PRN Reason: Hypoglycemia Protocol Stop: 09/07/21 14:17 Enoxaparin Sodium (Enoxaparin Inj 40 Mg/0.4 Ml Syr) 40 mg SQ QAM [facility] Stop: 09/11/21 08:59 Last Admin: 08/15/21 08:30 Dose: Not Given Documented by: Folic Acid (Folic Acid 1 Mg Tab) 1 mg PO QAM [facility] Stop: 09/11/21 08:59 Last Admin: 08/15/21 08:30 Dose: 1 mg Documented by: Glucagon (Glucagon For Inj 1 Mg Vial) 1 mg SQ UD PRN; Protocol PRN Reason: Hypoglycemia Protocol Stop: 09/07/21 14:17 Glucose (Glucose 10 Tabs/Tube) 4 - 8 tabs PO UD PRN; Protocol PRN Reason: Hypoglycemia Protocol Stop: 09/07/21 14:17 Glucose (Glucose 40% Gel 15 Gm Tube) 15 - 30 gm PO UD PRN; Protocol PRN Reason: Hypoglycemia Protocol Stop: 09/07/21 14:17 Ondansetron HCl 6 mg/ Dextrose 53 mls @ 200 mls/hr IV Q6H PRN PRN Reason: Nausea And Vomiting Stop: 09/06/21 14:59 Last Infusion: 08/15/21 10:01 Dose: Infused Documented by: Insulin Aspart (Insulin Aspart Per Unit) 0 units SC ACHS [facility] Stop: 09/08/21 16:44 Last Admin: 08/15/21 08:32 Dose: Not Given Documented by: Lorazepam (Lorazepam 0.5 Mg Tab) 0.5 mg PO Q8H PRN PRN Reason: Anxiety Stop: 09/11/21 11:49 Miscellaneous (Carbohydrates For Hypoglycemia ) 15 - 30 gm PO UD PRN PRN Reason: Hypoglycemia Protocol Stop: 09/07/21 14:17 Oxycodone/Acetaminophen (Oxycodone/Acetaminophen 5mg/325mg Tab) 1 tab PO Q8H PRN PRN Reason: Pain Stop: 08/27/21 15:28 Last Admin: 08/15/21 08:38 Dose: 1 tab Documented by: Pantoprazole Sodium (Pantoprazole 40 Mg Tab) 40 mg PO BID GEOVANNA Stop: 09/14/21 20:59 Thiamine HCl (Thiamine Hcl 100 Mg Tab) 100 mg PO QAM [facility] Stop: 09/11/21 08:59 Last Admin: 08/15/21 08:30 Dose: 100 mg Documented by: Zolpidem Tartrate (Zolpidem Tartrate 5 Mg Tab) 5 mg PO HS PRN PRN Reason: Sleep Stop: 09/08/21 01:31 Last Admin: 08/14/21 23:54 Dose: 5 mg Documented by:
[2021-08-15] MEDS: ACETAMINOPHEN 325 MG TAB PO PRN (14:19)
--- NOTE | 2021-08-15 19:12 | Hospitalist Progress Note ---
Date of Service August 15, 2021 Assessment & Plan (1) Acute recurrent pancreatitis: (2) Alcohol use disorder, moderate, dependence: (3) Post traumatic stress disorder (PTSD): (4) Insulin dependent diabetes mellitus: (5) ANGE (generalized anxiety disorder): (6) Unspecified mood [affective] disorder: (7) UTI (urinary tract infection): Plan: Acute recurrent pancreatitis: Secondary to alcohol use Possible Abscess --CT of the abdomen and pelvis did show acute pancreatitis with peripancreatic fluid --Repeat CT:findings of severe acute pancreatitis. Question a parenchymal defect in the distal pancreatic body. Necrotizing pancreatitis is not excluded. No organized peripancreatic fluid collection is clearly identified on this unenhanced examination. Fluid is seen tracking inferiorly within the retroperitoneum and there is a moderate volume of free fluid in the pelvis. Liver steatotic. -Discussed with GI on repeat CTA abd findings on 08/14/21: Recommends conservative management -Lipase elevated, trended down Completed IV Zosyn 7 day course Appreciate GI input Will need repeat CT in 4 to 6 weeks Counseled to avoid alcohol Received IV fluids, encouraged to increase oral fluid intake Tolerating low-fat diet Avoid Narcotics as able Alcohol use disorder, moderate, dependence: H/O Alcohol abuse No withdrawal symptoms Continue Thiamine, folic acid Post traumatic stress disorder (PTSD): Has significant psychiatric history Continue current medications as per psychiatrist Appreciate Psychiatry Input Started on Abilify Needs follow-up with psychiatry upon discharge Insulin dependent diabetes mellitus: Continue with sliding scale insulin coverage Glycemic pharmacist will be consulted ANGE (generalized anxiety disorder): As above Unspecified mood [affective] disorder: ADHD as well and major depressive disorder as above UTI (urinary tract infection): Urine Cx grew E coli Completed Zosyn course DVT Px: Lovenox SQ CODE STATUS Full Code Admission and Anticipated Discharge Date Admission Date: August 07, 2021 Subjective Patient is seen and examined at bedside Tolerating low-fat diet Discussed with psychiatry today No new complaints States feeling better Denies any nausea, vomiting, chest pain, dyspnea, dizziness Review of Systems Review of Systems: All systems reviewed & are unremarkable except as noted in Subjective Physical Exam Physical Exam: Physical Exam: Vitals signs as noted above General Appearance:Moderately built and nourished, no apparent distress Head: normocephalic, Atraumatic Eyes: normal inspection, EOMI Neck: supple, Trachea midline Respiratory/Chest: Normal breath sounds, CTA Cardiovascular: S1, S2, No murmur Abdomen/GI:Soft, mild epigastric tender, Bowel sounds present Extremities/Musculoskeletal:normal inspection, no edema Neurologic/Psych:AAOX3, grossly no focal neurological deficits Skin: normal color, warm Results & Data Results & Data ([facility]) Vital Signs (Past 12 Hours) Vital Signs Temp Pulse Pulse Resp BP Pulse Ox 08/15/21 16:23 37.3 C 62 16 159/94 H 98 08/15/21 15:41 65 08/15/21 11:30 37.4 C 72 16 122/74 98 08/15/21 07:44 37.3 C 76 16 146/91 H 93 08/15/21 07:27 70 Laboratory Results Short CBC 08/15/21 Range/Units 07:46 WBC 5.87 (4.8-10.8) K/uL Hgb 11.4 L (12.0-16.0) g/dL Hct 34.3 L (37-47) % Plt Count 338 (130-400) K/uL BMP 08/15/21 07:46 Sodium 138 Potassium 3.8 Chloride 108 H Carbon Dioxide 25 BUN 3 L Creatinine 0.43 L Glucose 141 H Calcium 8.8
[2021-08-15] MEDS: ZOLPIDEM TARTRATE 5 MG TAB PO PRN (21:05)
[2021-08-15] MEDS: PANTOprazole 40 MG TAB PO SCH (21:07)
[2021-08-16] MEDS: INSULIN ASPART PER UNIT SC SCH ×3 (08:20→16:35)
[2021-08-16] MEDS: PANTOprazole 40 MG TAB PO SCH (09:26)
[2021-08-16] MEDS: FOLIC ACID 1 MG TAB PO SCH (09:26)
[2021-08-16] MEDS: THIAMINE HCL 100 MG TAB PO SCH (09:26)
[2021-08-16] MEDS: ARIPiprazole 5 MG TAB PO SCH ×2 (09:26→10:30)
[2021-08-16] MEDS: ENOXAPARIN INJ 40 MG/0.4 ML SYR SQ SCH (09:28)
[2021-08-16 10:54] VITALS: O2SAT 98
[2021-08-16] MEDS: oxyCODONE/ACETAMINOPHEN 5mg/325mg TAB PO PRN (11:05)
[2021-08-16] MEDS: ondansetron HCL 6 MG in DEXTROSE 5% 50 ML IV PRN (11:11)
--- NOTE | 2021-08-16 11:52 | Hospitalist Progress Note ---
Date of Service August 16, 2021 Assessment & Plan (1) Acute recurrent pancreatitis: (2) Alcohol use disorder, moderate, dependence: (3) Post traumatic stress disorder (PTSD): (4) Insulin dependent diabetes mellitus: (5) ANGE (generalized anxiety disorder): (6) Unspecified mood [affective] disorder: (7) UTI (urinary tract infection): Plan: Acute recurrent pancreatitis: Secondary to alcohol use Possible Abscess --CT of the abdomen and pelvis did show acute pancreatitis with peripancreatic fluid --Repeat CT:findings of severe acute pancreatitis. Question a parenchymal defect in the distal pancreatic body. Necrotizing pancreatitis is not excluded. No organized peripancreatic fluid collection is clearly identified on this unenhanced examination. Fluid is seen tracking inferiorly within the retroperitoneum and there is a moderate volume of free fluid in the pelvis. Liver steatotic. -Discussed with GI on repeat CTA abd findings on 08/14/21: Recommends conservative management -Lipase elevated, trended down Completed IV Zosyn 7 day course Appreciate GI input Will need repeat CT in 4 to 6 weeks Counseled to avoid alcohol Received IV fluids, encouraged to increase oral fluid intake Tolerating low-fat diet Avoid Narcotics as able Plan to discharge home today Advised to follow-up with gastroenterology upon discharge Alcohol use disorder, moderate, dependence: H/O Alcohol abuse No withdrawal symptoms Continue Thiamine, folic acid Post traumatic stress disorder (PTSD): Has significant psychiatric history Continue current medications as per psychiatrist Appreciate Psychiatry Input Started on Abilify Needs follow-up with psychiatry upon discharge Insulin dependent diabetes mellitus: Continue with sliding scale insulin coverage Glycemic pharmacist will be consulted ANGE (generalized anxiety disorder): As above Unspecified mood [affective] disorder: ADHD as well and major depressive disorder as above UTI (urinary tract infection): Urine Cx grew E coli Completed Zosyn course DVT Px: Lovenox SQ CODE STATUS Full Code Admission and Anticipated Discharge Date Admission Date: August 07, 2021 Subjective Patient is seen and examined at bedside Doing well today Abdominal pain much improved Tolerating diet Plan to discharge home today Denies any nausea, vomiting, chest pain, dyspnea, dizziness Review of Systems Review of Systems: All systems reviewed & are unremarkable except as noted in Subjective Physical Exam Physical Exam: Physical Exam: Vitals signs as noted above General Appearance:Moderately built and nourished, no apparent distress Head: normocephalic, Atraumatic Eyes: normal inspection, EOMI Neck: supple, Trachea midline Respiratory/Chest: Normal breath sounds, CTA Cardiovascular: S1, S2, No murmur Abdomen/GI:Soft, mild epigastric tender, Bowel sounds present Extremities/Musculoskeletal:normal inspection, no edema Neurologic/Psych:AAOX3, grossly no focal neurological deficits Skin: normal color, warm Results & Data Results & Data ([facility]) Vital Signs (Past 12 Hours) Vital Signs Temp Pulse Pulse Resp BP BP Pulse Ox 08/16/21 10:53 36.9 C 70 16 128/85 98 08/16/21 07:52 37.5 C 76 19 127/82 96 08/16/21 07:00 66 08/16/21 04:00 36.7 C 65 18 114/75 96 08/16/21 00:54 61
--- NOTE | 2021-08-16 12:03 | Discharge Summary ---
Date of Service August 16, 2021 Admission HPI Per Admitting Provider History of Present Illness She is a 35-year-old female with significant past medical history of type 2 diabetes, hypertension, depression with anxiety, ADHD and also history of alcoholism with pancreatitis in the past apparently was transferred to psych floor yesterday for continuation of her psychiatric problem. She was seen by her psychiatrist this morning and complained to have severe epigastric pain that is going to the back associated with nausea and she vomited x2 and hospital medicine was consulted. She has had this episode of similar symptoms in the past and was diagnosed with acute pancreatitis. Denies any fever and/or chills. No abdominal distention and no shortness of breath. CT scan did show acute pancreatitis and she was transferred to medical telemetry unit for continuation of care Admission Exam Per Admitting Provider Physical Exam Physical Exam: Lying in bed with acute pain in the abdomen Constitutional: + ill appearing and + thin Eyes: PERRL, conjunctivae normal, anicteric sclerae B ENMT: external ear and nose normal, oropharynx normal Neck: trachea midline, no thyromegaly Respiratory: no respiratory distress Auscultation: lungs clear to auscultation bilaterally Cardiovascular: Rate/Rhythm: regular rate and regular rhythm; not tachycardic Heart Sounds: normal S1 and normal S2; no murmur Extremities: no edema Gastrointestinal (Abdomen): Inspection/Auscultation: normal bowel sounds; abdomen not distended Percussion/Palpation: + abdomen tender (In the epigastrium without guarding and no rigidity) and abdomen soft Musculoskeletal: No acute arthritis in any joint Neurologic: Alert, awake and oriented x3 No focal sensory or motor deficit appreciated Lymphatic: no cervical or axillary lymphadenopathy Principal Diagnosis Acute recurrent pancreatitis Alcohol use disorder Posttraumatic stress disorder Urinary tract infection Discharge Data Allergies Allergy/AdvReac Type Severity Reaction Status Date / Time bee venom protein (honey bee) Allergy Unknown ANAPHYLAXIS Verified 04/05/21 14:24 Consultations 08/08/21 08:15 Consult Psychiatry Routine 08/08/21 08:50 Consult Gastroenterology Routine Ordered Studies 08/13/21 17:31 CT abd pelvis wo con Ur[facility] Hospital Course (1) Acute recurrent pancreatitis: (2) Alcohol use disorder, moderate, dependence: (3) Post traumatic stress disorder (PTSD): (4) Insulin dependent diabetes mellitus: (5) ANGE (generalized anxiety disorder): (6) Unspecified mood [affective] disorder: (7) UTI (urinary tract infection): Acute recurrent pancreatitis: Secondary to alcohol use Possible Abscess --CT of the abdomen and pelvis did show acute pancreatitis with peripancreatic fluid --Repeat CT:findings of severe acute pancreatitis. Question a parenchymal defect in the distal pancreatic body. Necrotizing pancreatitis is not excluded. No organized peripancreatic fluid collection is clearly identified on this unenhanced examination. Fluid is seen tracking inferiorly within the retroperitoneum and there is a moderate volume of free fluid in the pelvis. Liver steatotic. -Discussed with GI on repeat CTA abd findings on 08/14/21: Recommends conservative management -Lipase elevated, trended down Completed IV Zosyn 7 day course Appreciate GI input Will need repeat CT in 4 to 6 weeks Counseled to avoid alcohol Received IV fluids, encouraged to increase oral fluid intake Tolerating low-fat diet Avoid Narcotics as able Plan to discharge home today Advised to follow-up with gastroenterology upon discharge Alcohol use disorder, moderate, dependence: H/O Alcohol abuse No withdrawal symptoms Continue Thiamine, folic acid Post traumatic stress disorder (PTSD): Has significant psychiatric history Continue current medications as per psychiatrist Appreciate Psychiatry Input Started on Abilify Needs follow-up with psychiatry upon discharge Insulin dependent diabetes mellitus: Continue with sliding scale insulin coverage Glycemic pharmacist will be consulted ANGE (generalized anxiety disorder): As above Unspecified mood [affective] disorder: ADHD as well and major depressive disorder as above UTI (urinary tract infection): Urine Cx grew E coli Completed Zosyn course DVT Px: Lovenox SQ CODE STATUS Full Code Total Time Total Time Spent Total Time Spent (In Minutes): 44 minutes Discharge Plan Discharge Items Patient Disposition: Home - Self-Care Reason For Visit: ACUTE PANCREATITIS Discharge Diagnosis: Acute recurrent pancreatitis Alcohol use disorder Posttraumatic stress disorder Urinary tract infection Activity: Per Instructions section Exercise/Sports: Wait until after follow-up appointment Non-emergency contact: Primary Care Provider, Horse Trekking Guide and Psychiatrist Call non-emergency contact if: you have any medication questions, your symptoms worsen and you have a fever Follow-up/Referrals: [facility] [Outside] - 08/17/21 3:30 pm Harinder Nathan, DO [Primary Care Provider] - (Date & Time 08/20/2021 11:00 AM Provider Andrew Emerson III, MD [facility] ) Diet: Carb Consistent or DM2 and Low Fat Addtl Attending Provider Instructions: Follow-up with your primary care physician Dr. Nathan on 08/20/2021 11:00 AM Follow-up with your psychiatrist on 08/17/20 at 3:30 PM as scheduled at [place] [facility] Follow-up with your shorer in 4 to [address] abdomen/pelvis for evaluation of your pancreas. --- Quit using alcohol as advised. Seek immediate medical attention if your symptoms reoccur or worsen Please take all medications as instructed on discharge list below. Please call if you have any questions or problems. You can reach a [facility] hospitalist on duty at [facility] 24 hours a day by calling [phone] Pending Studies at Discharge: No Stand-Alone Forms: [facility], Smoking Cessation Medications and DC Order Prescriptions: New aripiprazole 2 mg tablet 2 mg PO QAM Qty: 30 RF: 0 pantoprazole 40 mg Tablet,Delayed Release (Dr/Ec) 40 mg PO BID Qty: 30 RF: 0 folic acid 1 mg Tablet 1 mg PO QAM Qty: 30 RF: 0 ondansetron HCl [Zofran] 4 mg tablet 4 mg PO Q8H PRN (Reason: nausea and vomiting) 5 Days Qty: 15 RF: 0 Continued cetirizine 10 mg Tablet 10 mg PO QAM Qty: 0 RF: 0 thiamine HCl (vitamin B1) [Vitamin B-1] 100 mg Tablet 100 mg PO QAM Qty: 30 RF: 0 Discontinued cephalexin 500 mg Capsule 500 mg PO TID Qty: 0 RF: 0 hydromorphone 0.5 mg/0.5 mL Syringe 0.25 mg IV Q6H PRNQty: 0 RF: 0 Discharge Orders: Discharge Order (Routine); Ordered 08/16/21 Ordered By: Eligio Noel Admission Data Admit Date/Time: 08/07/21 14:40 Attending Provider: Eligio Noel Admit Provider: Xiomy Valdez Primary Care Provider: Harinder Nathan Other Providers: Kamila Dye ; Leola Alves ; Wendie Naik ; Matheus Ramos ; Manuela Lopez ; Latha Denise ; Brittany Ramirez ; Marisa Vasquez ; Demetrio Serna ; Kyra Darnell ; Dallas Sam ; Ramone Aiken ; Arleth Phillips ; Richa Rogers ; Cheyanne Burns ; Halley Littlejohn ; Aster Nielsen
[2021-08-16 14:47] VITALS: BP 113/75; TEMP 98.6
[2021-08-16 15:14] VITALS: PULSE 76
== END 2021-08-16 18:23 | disposition home or self-care (01) | DRG 439 ==
LOC: SUATTDRO 14:40 → 2N 14:40

== ENCOUNTER 2021-10-06 13:09 | Inpatient (IN) ==
[2021-10-06 13:43] LABS: Eosinophils # (auto) 0.07 K/uL (0-0.5); Eosinophils % (auto) 0.7 %; Hematocrit (blood only) 37.7 % (37-47); Hemoglobin 12.8 g/dL (12.0-16.0); Immature Granulocytes # (auto) 0.02 K/uL (0.00-0.02); Immature Granulocytes % (auto) 0.2 %; Lymphocytes # (auto) 1.98 K/uL (1.2-3.4); Lymphocytes % (auto) 19.5 %; Mean Corpuscular Hemoglobin 30.5 pg (25-34); Mean Corpuscular Volume 89.8 fL (80-100); Mean Platelet Volume 10.3 fL (7.4-10.4); Monocytes # (auto) 0.46 K/uL (0.11-0.59); Monocytes % (auto) 4.5 %; Neutrophils # (auto) 7.62 K/uL (1.4-6.5); Neutrophils % (auto) 75.1 %; Platelet Count 343 K/uL (130-400); RDW Standard Deviation 39.3 fL (36.4-46.3); White Blood Count 10.15 K/uL (4.8-10.8)
[2021-10-06 14:07] LABS: BUN Creatinine Ratio 22.6 (10-20); Calcium 9.4 mg/dl (8.5-10.1); Creatinine Clr Calc Pharmacy 111.8 ml/min; Est GFR (African American) 142.6 ml/min; Potassium 3.4 mmol/L (3.5-5.1)
[2021-10-06 14:09] LABS: Albumin Globulin Ratio 1.5 (0.9-2); Albumin Level 4.1 gm/dl (3.4-5.0); Bilirubin,Total 0.3 mg/dl (0.2-1.0); Globulin 2.8 gm/dl (2.5-4.0); Total Protein 6.9 gm/dl (6.0-8.3)
[2021-10-06] MEDS ORDERED: ONDANSETRON INJ 2 MG/ML 2 ML VIAL IV STA (15:02)
[2021-10-06] MEDS ORDERED: FAMOTIDINE 20MG IV PUSH 20 MG/5 ML SYR IV STA (15:02)
[2021-10-06] MEDS ORDERED: ACETAMINOPHEN 1,000 MG/100 ML VIAL IV STA (15:02)
[2021-10-06] MEDS ORDERED: SODIUM CHLORIDE 0.9% 1000ML 2,000 ML IV ONE (15:02)
[2021-10-06] MEDS ORDERED: MoRPHine SULFATE 4 MG/ML 1 ML CARP\\VIAL IV STA (15:26)
--- NOTE | 2021-10-06 15:57 | Emergency Department Note ---
Impression & Plan Acute recurrent pancreatitis, Hypomagnesemia, Hypokalemia ED Provider Note NAME: JULIA WEBB AGE: 36 SEX: F ARRIVES VIA: Walk-In INFORMANT: Patient ED PROVIDER(S): Bar Thayer MD CHIEF COMPLAINT: Epigastric pain, pancreatitis PLAN: Disposition: Admit MEDICAL DECISION MAKING: The patient is a pleasant 36-year-old woman with a past medical history of alcohol dependence, alcoholic pancreatitis, insulin-dependent diabetes, hypertension, GERD, depression who presents emergency department with ongoing epigastric pain with associated nausea and vomiting for the past several weeks which reports has been worsening. She reports she has not had any alcohol since she was admitted for pancreatitis at the end of July when she was also admitted for psychiatric treatment. She denies any fevers, chills, cough, congestion. She reports she did move her bowels yesterday and had been treated for constipation with MiraLAX. She reports that she is supposed to have an outpatient abdominal MRI in the beginning of October. On arrival the patient is uncomfortable, but in no acute distress, afebrile with blood pressure 170/100s and vital signs otherwise stable. She appears clinically dry. She has mild epigastric tenderness without guarding or rebound. She has a negative Arvizu sign. WBC, H/H and platelets within normal limits. Chemistry without metabolic acidosis. Potassium 3.4 and Magnesium 1.4. Lipase is elevated at 1100, 10x upper-end of normal. LFTS without significant abnormality. Given the patient's symptoms in setting of acute pancreatitis she agrees with plan for admission. Given unremarkable LFTS, will defer decision for imaging to admitting team. Case was discussed with Margarita Ly, [facility] PAC, with Dr. Valdez, [facility] hospitalist who will evaluate the patient for admission. Triage Nursing notes reviewed and agree them. Prior medical records reviewed Vital Signs: reviewed and remarkable for hypertension. Differential diagnosis: Appendicitis, ovarian cyst, ovarian torsion, ectopic , TOA, PID, infections, diverticulitis, UTI, obstruction, mesenteric ischemia, aortic pathology, inflammatory bowel disease, renal colic, PUD, pancreatitis, biliary pathology, hernia, volvulus, constipation, as well as other pathologies. ER treatment provided: See below. Diagnostics interpreted by me: Cardiac Monitoring: An order for continuous cardiac monitoring was placed and demonstrated NSR, 64 bpm, no ectopy. Laboratory studies: See below Imaging studies: See below Consultation(s): Case was discussed with Margarita Ly, [facility] PAC, with Dr. Valdez, [facility] hospitalist who will evaluate the patient for admission. HPI: The patient is a pleasant 36-year-old woman with a past medical history of alcohol dependence, alcoholic pancreatitis, insulin-dependent diabetes, hypertension, GERD, depression who presents emergency department with ongoing epigastric pain with associated nausea and vomiting for the past several weeks which reports has been worsening. She reports she has not had any alcohol since she was admitted for pancreatitis at the end of July when she was also admitted for psychiatric treatment. She denies any fevers, chills, cough, congestion. She reports she did move her bowels yesterday and had been treated for constipation with MiraLAX. ROS: See above HPI for pertinent positives & negatives. A total of 10 systems reviewed and were otherwise negative. PAST MEDICAL HISTORY:See Below PAST SURGICAL HISTORY:See Below FAMILY HISTORY:See Below SOCIAL HISTORY:See Below HOME MEDICATIONS:See Below ALLERGIES:See Below VITALS:See Below PHYSICAL EXAMINATION: GENERAL: Awake, alert, uncomfortable-appearing, in no distress HENT: Normocephalic, atraumatic. Oropharynx with dry mucous membranes and otherwise unremarkable. EYES: Normal conjunctiva. Sclera non-icteric. NECK: Supple. No nuchal rigidity. FROM. No JVD. RESPIRATORY: Clear to auscultation. CARDIAC: Regular rate, normal rhythm. Extremities warm and well perfused. Pulses equal. ABDOMEN: Soft, non-distended. Mild epigastric tenderness. Negative Arvizu sign. No rebound or guarding. No masses. RECTAL: Deferred. MUSCULOSKELETAL: Chest examination reveals no tenderness. The back is symmetrical on inspection without obvious abnormality. There is no CVA tenderness to palpation. No joint edema. LOWER EXTREMITIES: Calves are equal size bilaterally and non-tender. No edema. No discoloration. NEURO: Normal sensorium. No sensory or motor deficits noted. SKIN: No rash or jaundice noted. Bar Thayer MD Past Med/Surg History Medical History Anxiety H/O Asthma Cardiac murmur CONGENITAL -- BENIGN. 10/09/15 echo: The examination is adequate to evaluate the referral indication. The qualitative LV ejection fraction is 60-64% (normal). The left ventricular diastolic function is normal. No significant valvular disease is present. Depression H/O Diabetes GERD (gastroesophageal reflux disease) R/T Gestational diabetes Scoliosis MINOR Surgical History History of adenoidectomy History of section x 2 History of tonsillectomy Family History Other Adopted Social History Smoking Status: Current every day smoker Tobacco Type: Cigarettes Cigarettes Per Day: 1-2; Second Hand Exposure: Yes; Hx Alcohol Use: Yes Alcohol type: wine Hx Substance Use: Yes Prescribed Medications: Marijuana Last Used Substance: Unknown Last Used Substance Other:: Last used this AM Preferred Language: Georgian 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: Effective Final Assembly Worker Required: No Beliefs That Will Affect Care: None Current Living Situation: Family Feels Safe at Home: Yes Assistive Devices: None Allergies Allergies Allergy/AdvReac Type Severity Reaction Status Date / Time bee venom protein (honey bee) Allergy Severe ANAPHYLAXIS Verified 10/06/21 16:21 Home Meds Home Medications Medication Instructions Recorded Confirmed aripiprazole 5 mg tablet 5 mg PO DAILY 10/06/21 10/06/21 baclofen 10 mg tablet 10 mg PO NOW 10/06/21 10/06/21 trazodone 50 mg tablet 50 mg PO HS 10/06/21 10/06/21 Previous Rx's Medication Instructions Recorded cetirizine 10 mg tablet 10 mg PO QAM #0 tab 08/07/21 folic acid 1 mg tablet 1 mg PO QAM #30 tab 08/16/21 pantoprazole 40 mg tablet,delayed 40 mg PO BID #30 tab 08/16/21 release thiamine HCl (vitamin B1) 100 mg 100 mg PO QAM #30 tab 08/16/21 tablet (Vitamin B-1) Results & Data (ED) Vital Signs Vital Signs - 24 hr 10/06/21 13:19 10/06/21 14:50 10/06/21 16:00 Temperature 36.4 C L 36.8 C Temperature Source Temporal Artery Scan Oral Pulse Rate 64 Pulse Rate [Left Finger] 64 Pulse Rhythm [Left Finger] Regular Respiratory Rate 18 14 14 Respiratory Effort / Characteristics Non-Labored Non-Labored Respiratory Depth Normal Normal Normal Blood Pressure 150/97 H Blood Pressure [Right Arm] 170/100 H Blood Pressure Mean 114 Blood Pressure Mean [Right Arm] 123 Pulse Oximetry 100 97 97 Oxygen Delivery Method Room Air Room Air Sepsis Recent Fever Within 48 Hours No Sepsis New/Unexplained Change in Mental Status No Sepsis Action Taken by Nursing No Action Required Laboratory Data Result diagrams: 10/06/21 13:33 10/06/21 13:33 Lab Results 10/06/21 10/06/21 10/06/21 Range/Units 13:33 13:33 13:33 WBC 10.15 (4.8-10.8) K/uL RBC 4.20 (4.2-5.4) M/uL Hgb 12.8 (12.0-16.0) g/dL Hct 37.7 (37-47) % MCV 89.8 (80-100) fL MCH 30.5 (25-34) pg MCHC 34.0 (32-36) g/dL RDW Std Deviation 39.3 (36.4-46.3) fL RDW Coeff of Arnold 12.0 (11.5-14.5) % Plt Count 343 (130-400) K/uL MPV 10.3 (7.4-10.4) fL Immature Gran % (Auto) 0.2 % Neut % (Auto) 75.1 % Lymph % (Auto) 19.5 % [place] % (Auto) 4.5 % Eos % (Auto) 0.7 % Baso % (Auto) 0.0 % Neut # (Auto) 7.62 H (1.4-6.5) K/uL Lymph # (Auto) 1.98 (1.2-3.4) K/uL [place] # (Auto) 0.46 (0.11-0.59) K/uL Eos # (Auto) 0.07 (0-0.5) K/uL Baso # (Auto) 0.00 (0-0.2) K/uL Immature Gran # (Auto) 0.02 (0.00-0.02) K/uL PT (9.0-12.0) Seconds INR (0.9-1.1) Sodium 137 (136-145) mmol/L Potassium 3.4 L (3.5-5.1) mmol/L Chloride 104 (98-107) mmol/L Carbon Dioxide 27 (21-32) mmol/L Anion Gap 6 (3-11) BUN 12 (6-23) mg/dl Creatinine 0.53 L (0.6-1.2) mg/dl Est Cr Clr Drug Dosing 111.8 ml/min Est GFR ( Amer) 142.6 ml/min Est GFR (Non-Af Amer) 123.0 ml/min BUN/Creatinine Ratio 22.6 H (10-20) Glucose 168 H (70-99(Fasting)) mg/dl Calcium 9.4 (8.5-10.1) mg/dl Phosphorus 3.1 (2.5-4.9) mg/dl Magnesium 1.4 L (1.7-2.4) mg/dl Total Bilirubin 0.3 (0.2-1.0) mg/dl AST 8 L (13-39) U/L ALT 5 L (7-52) U/L Alkaline Phosphatase 30 L (34-104) U/L Total Protein 6.9 (6.0-8.3) gm/dl Albumin 4.1 (3.4-5.0) gm/dl Globulin 2.8 (2.5-4.0) gm/dl Albumin/Globulin Ratio 1.5 (0.9-2) Lipase 1167 H (11-82) U/L HCG, Qual (Negative) Ethyl Alcohol mg/dL (<10.0) mg/dl SARS-CoV-2, RNA, NAAT (NEGATIVE) 10/06/21 10/06/21 10/06/21 Range/Units 15:57 15:57 15:58 WBC (4.8-10.8) K/uL RBC (4.2-5.4) M/uL Hgb (12.0-16.0) g/dL Hct (37-47) % MCV (80-100) fL MCH (25-34) pg MCHC (32-36) g/dL RDW Std Deviation (36.4-46.3) fL RDW Coeff of Arnold (11.5-14.5) % Plt Count (130-400) K/uL MPV (7.4-10.4) fL Immature Gran % (Auto) % Neut % (Auto) % Lymph % (Auto) % [place] % (Auto) % Eos % (Auto) % Baso % (Auto) % Neut # (Auto) (1.4-6.5) K/uL Lymph # (Auto) (1.2-3.4) K/uL [place] # (Auto) (0.11-0.59) K/uL Eos # (Auto) (0-0.5) K/uL Baso # (Auto) (0-0.2) K/uL Immature Gran # (Auto) (0.00-0.02) K/uL PT 10.7 (9.0-12.0) Seconds INR 1.1 (0.9-1.1) Sodium (136-145) mmol/L Potassium (3.5-5.1) mmol/L Chloride (98-107) mmol/L Carbon Dioxide (21-32) mmol/L Anion Gap (3-11) BUN (6-23) mg/dl Creatinine (0.6-1.2) mg/dl Est Cr Clr Drug Dosing ml/min Est GFR ( Amer) ml/min Est GFR (Non-Af Amer) ml/min BUN/Creatinine Ratio (10-20) Glucose (70-99(Fasting)) mg/dl Calcium (8.5-10.1) mg/dl Phosphorus (2.5-4.9) mg/dl Magnesium (1.7-2.4) mg/dl Total Bilirubin (0.2-1.0) mg/dl AST (13-39) U/L ALT (7-52) U/L Alkaline Phosphatase (34-104) U/L Total Protein (6.0-8.3) gm/dl Albumin (3.4-5.0) gm/dl Globulin (2.5-4.0) gm/dl Albumin/Globulin Ratio (0.9-2) Lipase (11-82) U/L HCG, Qual Negative (Negative) Ethyl Alcohol mg/dL < 10.0 (<10.0) mg/dl SARS-CoV-2, RNA, NAAT (NEGATIVE) 10/06/21 Range/Units 16:39 WBC (4.8-10.8) K/uL RBC (4.2-5.4) M/uL Hgb (12.0-16.0) g/dL Hct (37-47) % MCV (80-100) fL MCH (25-34) pg MCHC (32-36) g/dL RDW Std Deviation (36.4-46.3) fL RDW Coeff of Arnold (11.5-14.5) % Plt Count (130-400) K/uL MPV (7.4-10.4) fL Immature Gran % (Auto) % Neut % (Auto) % Lymph % (Auto) % [place] % (Auto) % Eos % (Auto) % Baso % (Auto) % Neut # (Auto) (1.4-6.5) K/uL Lymph # (Auto) (1.2-3.4) K/uL [place] # (Auto) (0.11-0.59) K/uL Eos # (Auto) (0-0.5) K/uL Baso # (Auto) (0-0.2) K/uL Immature Gran # (Auto) (0.00-0.02) K/uL PT (9.0-12.0) Seconds INR (0.9-1.1) Sodium (136-145) mmol/L Potassium (3.5-5.1) mmol/L Chloride (98-107) mmol/L Carbon Dioxide (21-32) mmol/L Anion Gap (3-11) BUN (6-23) mg/dl Creatinine (0.6-1.2) mg/dl Est Cr Clr Drug Dosing ml/min Est GFR ( Amer) ml/min Est GFR (Non-Af Amer) ml/min BUN/Creatinine Ratio (10-20) Glucose (70-99(Fasting)) mg/dl Calcium (8.5-10.1) mg/dl Phosphorus (2.5-4.9) mg/dl Magnesium (1.7-2.4) mg/dl Total Bilirubin (0.2-1.0) mg/dl AST (13-39) U/L ALT (7-52) U/L Alkaline Phosphatase (34-104) U/L Total Protein (6.0-8.3) gm/dl Albumin (3.4-5.0) gm/dl Globulin (2.5-4.0) gm/dl Albumin/Globulin Ratio (0.9-2) Lipase (11-82) U/L HCG, Qual (Negative) Ethyl Alcohol mg/dL (<10.0) mg/dl SARS-CoV-2, RNA, NAAT NEGATIVE (NEGATIVE) Administered Medications Discontinued Medications Sodium Chloride (Nss 1000ml) 2,000 mls @ 999 mls/hr IV .Q2H1M ONE Stop: 10/06/21 17:02 Last Admin: 10/06/21 15:15 Dose: 999 mls/hr Documented by: [id number] Famotidine (Pepcid 20mg Iv Push) 20 mg in 5 mls @ 2.5 mls/min IV NOW STA Stop: 10/06/21 15:03 Last Admin: 10/06/21 15:15 Dose: 2.5 mls/min Documented by: [id number] Acetaminophen (Ofirmev) 1,000 mg in 100 mls @ 400 mls/hr IV NOW STA Stop: 10/06/21 15:16 Last Infusion: 10/06/21 16:22 Dose: 0 mls/hr Documented by: [id number] Admin: 10/06/21 15:15 Dose: 400 mls/hr Documented by: [id number] Potassium Chloride (K Fredi / Wtr) 10 meq in 100 mls @ 100 mls/hr IV Q1H GEOVANNA; Protocol Stop: 10/06/21 18:14 Last Admin: 10/06/21 18:53 Dose: 80 mls/hr Documented by: [id number] Infusion: 10/06/21 17:58 Dose: 0 mls/hr Documented by: [id number] Admin: 10/06/21 16:29 Dose: 100 mls/hr Documented by: [id number] Magnesium Sulfate/Dextrose (Magnesium Sulfate / D5w) 1 gm in 100 mls @ 100 mls/hr IV Q1H GEOVANNA Stop: 10/06/21 18:59 Last Infusion: 10/06/21 18:53 Dose: 0 mls/hr Documented by: [id number] Admin: 10/06/21 17:36 Dose: 100 mls/hr Documented by: [id number] Ioversol (Optiray 320 100ml) 95 ml IV ONCE ONE Stop: 10/06/21 19:05 Last Admin: 10/06/21 19:05 Dose: 95 ml Documented by: [id number] Morphine Sulfate (Morphine Sulfate 4 Mg/Ml 1 Ml Carp\Vial) 4 mg IV NOW STA Stop: 10/06/21 15:27 Last Admin: 10/06/21 16:46 Dose: 4 mg Documented by: [id number] Ondansetron HCl (Ondansetron Inj 2 Mg/Ml 2 Ml Vial) 4 mg IV NOW STA Stop: 10/06/21 15:03 Last Admin: 10/06/21 15:15 Dose: 4 mg Documented by: [id number] Imaging Data Radiologist's Impression: Abdomen/Pelvis CT 10/06/21 17:[address] WITH IV CONTRAST CT DOSE: 282.35 mGy.cm HISTORY: Acute epigastric abdominal pain acute pancreatitis TECHNIQUE: Multiaxial CT images of the abdomen and pelvis were performed fo llowing the IV administration of 95 cc of Optiray, A dose lowering technique was utilized adhering to the principles of ALARA. COMPARISON STUDY: CT abdomen and pelvis 08/13/2021 FINDINGS: Mild dependent subsegmental bibasilar atelectasis. There is no pneumatosis or pneumoperitoneum. The imaged inferior cardiac chambers are unremarkable. The spleen, and adrenal glands appear unremarkable. The liver is upper limits of normal in size. Mild focal fatty infiltration is noted within the left hepatic lobe adjacent to the falciform ligament. Patent hepatic, portal and superior mesenteric veins. The splenic vein is also patent. There is mild interstitial and peripancreatic edema which is most pronounced in the pancreatic body and tail. No definite evidence of pancreatic necrosis. There is a circumscribed ovoid 4.2 x 2.3 cm fluid collection involving the pancreatic tail on image 109. Similar-appearing 3.2 x 2.5 cm fluid collection is noted interposed between the pancreatic head and duodenum. There is dilation involving the pancreatic duct, notably at the level of the head and neck measuring up to 9 mm. No definite common bile duct or intrahepatic biliary ductal dilation or biliary stone identified. Mild cortical scarring of the left kidney redemonstrated. No hydronephrosis. Unremarkable right kidney. The urinary bladder is within normal limits. 1.3 cm right fundal uterine calcification is suggestive of a fibroid. Probable involuting cyst of the left ovary measures 1.7 cm. Trace free pelvic fluid. No abdominal aortic aneurysm or adenopathy. Mild wall thickening of the duodenum is likely reactive with adjacent trace free fluid. No bowel obstruction. There is trace free fluid within the dependent pelvis. There is moderate fecal retention. The visualized appendix appears noninflamed. Unremarkable soft tissues. No acute fracture. The bones appear normal. IMPRESSION: 1. Mild acute pancreatitis. Pseudocysts involving the pancreatic head and tail are new from the 08/13/2021 study. There is new moderate pancreatic ductal dilation which is presumably secondary to obstruction from the pancreatic head pseudocyst. 2. Trace free fluid within the abdomen and pelvis. 3. No bowel obstruction or bowel wall thickening. 4. Chronic findings as above. ACT 112: Negative or not required by law. The above report was generated using voice recognition software. It may contain grammatical, syntax or spelling errors. Electronically signed by: Pepe Lancaster M.D. 10/06/2021 7:30 PM Discharge Plan Visit Data Chief Complaint: Abdominal Pain Stated Complaint: ABDOMINAL AND BACK PAIN, NAUSEA ED Provider: Bar Thayer Discharge Problem: Acute recurrent pancreatitis, Hypomagnesemia, Hypokalemia Forms Stand Alone Forms: [employer] Prescriptions Prescriptions: No Action cetirizine 10 mg Tablet 10 mg PO QAM Qty: 0 RF: 0 pantoprazole 40 mg Tablet,Delayed Release (Dr/Ec) 40 mg PO BID Qty: 30 RF: 0 folic acid 1 mg Tablet 1 mg PO QAM Qty: 30 RF: 0 thiamine HCl (vitamin B1) [Vitamin B-1] 100 mg Tablet 100 mg PO QAM Qty: 30 RF: 0 baclofen 10 mg tablet 10 mg PO NOW RF: 0 trazodone 50 mg tablet 50 mg PO HS RF: 0 aripiprazole 5 mg tablet 5 mg PO DAILY RF: 0 Referrals Referrals: Harinder Nathan, [Primary Care Provider] -
[2021-10-06 16:18] LABS: INR 1.1 (0.9-1.1); Prothrombin Time 10.7 Seconds (9.0-12.0)
[2021-10-06] MEDS: POTASSIUM CHLORIDE / WTR 10 MEQ/100 ML PLCT IV SCH ×2 (16:29→18:53)
[2021-10-06 16:31] LABS: Magnesium 1.4 mg/dl (1.7-2.4); Phosphorus 3.1 mg/dl (2.5-4.9)
[2021-10-06 16:31] LABS: Pregnancy Test, Serum Negative (Negative)
--- NOTE | 2021-10-06 16:57 | History & Physical Report ---
Date of Service October 06, 2021 Assessment & Plan (1) Acute recurrent pancreatitis: (2) Hypomagnesemia: (3) Hypokalemia: (4) DMII (diabetes mellitus, type 2): Plan: This is a 35-year-old female who has significant past medical history of T2DM, HTN, vitamin D deficiency, alcoholism, depression with anxiety, ADHD, tobacco abuse who presents to ED secondary to abd pain x 3 weeks. Acute recurrent pancreatitis Epigastric abd pain, Nausea and vomitting Admit to med/surge Lipase level 1167, obtain CT abdomen pelvis with and without contrast Consult gastroenterology, follows with them closely and is scheduled for MRCP as outpatient on 10/15/2021 N.p.o. LR at 200 cc/h IV morphine for severe pain Lipid panel in a.m., patient admits to being absent from alcohol since July trend lipase Hypokalemia K3.4, replete Hypomagnesemia Mag 1.4, replete T2DM Previously diagnosed, recent A1c on 10/01/2021 was 7.0 She was placed on Lantus/NovoLog regimen, but patient admits to not taking lantus/novolog per protocol Major depressive disorder Use medical marijuana Prescribed abilify and trazodone DVT prophylaxis: Lovenox Dispo: MedSurg PCP: Randy Full code Patient was seen and examined in collaboration with, Dr. Valdez, please see addendum The chart was completed utilizing [employer] / [employer] Speech voice recognition software. Grammatical errors, random word insertions, pronoun errors, and incomplete sentences are an occasional consequence of this system due to software limitations, ambient noise, and hardware issues. Any formal questions or concerns about the content, text, or information contained within the body of this dictation should be directly addressed to the provider for clarification. History of Present Illness Chief Complaint: Abd pain x 3weeks. Primary Care Provider: Harinder Nathan, This is a 35-year-old female who has significant past medical history of T2DM, HTN, vitamin D deficiency, alcoholism, depression with anxiety, ADHD, tobacco abuse who presents to ED secondary to abd pain x 3 weeks. She states she is been having off-and-on epigastric abdominal pain for the past 3 weeks. There is also been associated with nausea and vomiting. For the last few days she has been unable to keep anything to eat or drink down. She was seen by PCP on 10/01 for similar symptoms. She states they thought maybe it was constipation and placed her on a bowel regimen. She has prior history of pancreatitis in the past and is scheduled for MRCP on 10/15. She admits to been absent with alcohol since July. She also denies any significant NSAID use. She admits to feeling chilled and reports fever of 102 yesterday. She further complains of feeling dizzy, "off balance," right-sided mid back pain and overall feeling weak. She states that she was at work today when her symptoms got worse, she left and went to the chiropractor to address her right mid back pain and then came to ED. She denies any syncope or lightheadedness, chest pain, palpitations, cough, hemoptysis, hematemesis, melena, medic easier. She reports decreased urination due to poor intake. She states she is only been taking baclofen and has not been taking her home medications due to not feeling well. She did have a bowel movement yesterday. In ED patient was hemodynamically stable. She was modestly hypertensive. The bowel mount is significant for elevated lipase at 1167, low magnesium 1.4, low K at 3.4 and hyperglycemia at 168. Her ethyl alcohol level was negative. No imaging on abdomen was completed in ED. Allergies Allergy/AdvReac Type Severity Reaction Status Date / Time bee venom protein (honey bee) Allergy Severe ANAPHYLAXIS Verified 10/06/21 16:21 Home Medications Medication Instructions Recorded Confirmed Type cetirizine 10 mg tablet 10 mg PO QAM #0 tab 08/07/21 10/06/21 Rx folic acid 1 mg tablet 1 mg PO QAM #30 tab 08/16/21 10/06/21 Rx pantoprazole 40 mg tablet,delayed 40 mg PO BID #30 tab 08/16/21 10/06/21 Rx release thiamine HCl (vitamin B1) 100 mg 100 mg PO QAM #30 tab 08/16/21 10/06/21 Rx tablet (Vitamin B-1) aripiprazole 5 mg tablet 5 mg PO DAILY 10/06/21 10/06/21 History baclofen 10 mg tablet 10 mg PO NOW 10/06/21 10/06/21 History trazodone 50 mg tablet 50 mg PO HS 10/06/21 10/06/21 History Past Med/Surg History Medical History (Updated 10/06/21 @ 16:51 by Malini Espinoza PA-C) Anxiety H/O Asthma Cardiac murmur CONGENITAL -- BENIGN. 10/09/15 echo: The examination is adequate to evaluate the referral indication. The qualitative LV ejection fraction is 60-64% (normal). The left ventricular diastolic function is normal. No significant valvular disease is present. Depression H/O Diabetes GERD (gastroesophageal reflux disease) R/T Gestational diabetes Scoliosis MINOR Surgical History History of adenoidectomy History of section x 2 History of tonsillectomy Family History Other Adopted Social History (Updated 10/06/21 @ 17:02 by Malini Espinoza PA-C) Smoking Status: Current every day smoker Tobacco Type: Cigarettes Cigarettes Per Day: 1-2; Second Hand Exposure: Yes; Hx Alcohol Use: Yes Alcohol type: wine Hx Substance Use: Yes Prescribed Medications: Marijuana Last Used Substance: Unknown Last Used Substance Other:: Last used this AM Preferred Language: Stateless 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: Effective 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 Required: No Beliefs That Will Affect Care: None Current Living Situation: Family Feels Safe at Home: Yes Assistive Devices: None Review of Systems Review of Systems: All systems reviewed & are unremarkable except as noted in HPI & below Physical Exam Physical Exam: Constitutional: WD/WN, vitals as above, NAD, sitting up in bed, pleasant, conversing easily Head: Normocephalic, Atraumatic Eyes: PERRL, conjunctivae normal, anicteric sclerae ENMT: external ear and nose normal, oropharynx normal Neck: trachea midline, no thyromegaly normal visual inspection Respiratory: normal respiratory effort, lungs clear to auscultation, no wheeze, rales, rhonchi. Normal insp/exp effort, no accessory muscle use Cardiovascular: RRR, 1/6 DALIA noted rusb, no edema Vessels: no JVD or carotid bruit Chest: normal inspection of chest Abdomen: normal bowel sounds, soft, mid epigastric tenderness to palpation, no hepatosplenomegaly Musculoskeletal: no cyanosis or clubbing, extremities motor strength 5/5 Skin: no rashes, warm and dry normal turgor Neurologic: PERRL, EOMI, accommodation nl, no face palsy, no dysarthria CN's II-XI intact bilaterally and moves all extremities Psychiatric: A+Ox3, euthymic affect Lymphatic: no cervical or axillary lymphadenopathy : deferred Results & Data Results & Data ([facility]) Vital Signs (Past 12 Hours) Vital Signs Temp Pulse Pulse Resp BP BP Pulse Ox 10/06/21 16:00 64 14 97 10/06/21 14:50 36.8 C 14 170/100 H 97 10/06/21 13:19 36.4 C L 64 18 150/97 H 100 Medications Administered Medication List Sodium Chloride (Nss 1000ml) 2,000 mls @ 999 mls/hr IV .Q2H1M ONE Stop: 10/06/21 17:02 Last Admin: 10/06/21 15:15 Dose: 999 mls/hr Documented by: [id number] Potassium Chloride (K Fredi / Wtr) 10 meq in 100 mls @ 100 mls/hr IV Q1H GEOVANNA; Protocol Stop: 10/06/21 18:14 Last Admin: 10/06/21 16:29 Dose: 100 mls/hr Documented by: [id number] Discontinued Medications Famotidine (Pepcid 20mg Iv Push) 20 mg in 5 mls @ 2.5 mls/min IV NOW STA Stop: 10/06/21 15:03 Last Admin: 10/06/21 15:15 Dose: 2.5 mls/min Documented by: [id number] Acetaminophen (Ofirmev) 1,000 mg in 100 mls @ 400 mls/hr IV NOW STA Stop: 10/06/21 15:16 Last Infusion: 10/06/21 16:22 Dose: 0 mls/hr Documented by: [id number] Admin: 10/06/21 15:15 Dose: 400 mls/hr Documented by: [id number] Morphine Sulfate (Morphine Sulfate 4 Mg/Ml 1 Ml Carp\\Vial) 4 mg IV NOW STA Stop: 10/06/21 15:27 Last Admin: 10/06/21 16:46 Dose: 4 mg Documented by: [id number] Ondansetron HCl (Ondansetron Inj 2 Mg/Ml 2 Ml Vial) 4 mg IV NOW STA Stop: 10/06/21 15:03 Last Admin: 10/06/21 15:15 Dose: 4 mg Documented by: [id number] COVID-19 Results Results COVID-19 Adm Lab Results: RBC 4.20 M/uL (4.2-5.4) 10/06/21 WBC 10.15 K/uL (4.8-10.8) 10/06/21 Hgb 12.8 g/dL (12.0-16.0) 10/06/21 Hct 37.7 % (37-47) 10/06/21 Plt Count 343 K/uL (130-400) 10/06/21 Neutrophils (%) (Auto) 75.1 % 10/06/21 Lymphocytes (%) (Auto) 19.5 % 10/06/21 Monocytes # (Auto) 0.46 K/uL (0.11-0.59) 10/06/21 Eosinophils # (Auto) 0.07 K/uL (0-0.5) 10/06/21 Immature Granulocyte % (Auto) 0.2 % 10/06/21 Neutrophils # (Auto) 7.62 K/uL (1.4-6.5) H 10/06/21 Lymphocytes # (Auto) 1.98 K/uL (1.2-3.4) 10/06/21 Monocytes # (Auto) 0.46 K/uL (0.11-0.59) 10/06/21 Eosinophils # (Auto) 0.07 K/uL (0-0.5) 10/06/21 Basophils # (Auto) 0.00 K/uL (0-0.2) 10/06/21 Immature Granulocyte # (Auto) 0.02 K/uL (0.00-0.02) 10/06/21 Na 137 mmol/L (136-145) 10/06/21 K 3.4 mmol/L (3.5-5.1) L 10/06/21 Cl 104 mmol/L (98-107) 10/06/21 CO2 27 mmol/L (21-32) 10/06/21 Anion Gap 6 (3-11) 10/06/21 BUN 12 mg/dl (6-23) 10/06/21 Creatinine 0.53 mg/dl (0.6-1.2) L 10/06/21 BUN/Creatinine Ratio 22.6 (10-20) H 10/06/21 Glucose Level 168 mg/dl (70-99(Fasting)) H 10/06/21 Ca 9.4 mg/dl (8.5-10.1) 10/06/21 Phosphorus Level 3.1 mg/dl (2.5-4.9) 10/06/21 Total Bilirubin 0.3 mg/dl (0.2-1.0) 10/06/21 AST/SGOT 8 U/L (13-39) L 10/06/21 ALT/SGPT 5 U/L (7-52) L 10/06/21 Alkaline Phosphatase 30 U/L (34-104) L 10/06/21 Total Protein 6.9 gm/dl (6.0-8.3) 10/06/21 Albumin 4.1 gm/dl (3.4-5.0) 10/06/21 Globulin 2.8 gm/dl (2.5-4.0) 10/06/21 Albumin/Globulin Ratio 1.5 (0.9-2) 10/06/21 INR 1.1 (0.9-1.1) 10/06/21 SARS-CoV-2, RNA, NAAT NEGATIVE (NEGATIVE) 10/06/21 Code Status & VTE Plan Code Status FULL CODE VTE Prophylaxis Plan VTE Prophylaxis will be ordered: Yes Supervising Physician Co-Signing Physician Notes Attending addendum The patient was seen and examined in emergency room She has history of alcoholism with recurrent pancreatitis She is admitted with another attack of acute pancreatitis and presented with nausea vomiting and abdominal pain CT did show pancreatitis with pseudocyst which is new compared with CT of 08/13/2021 On examination In mild pain without nausea Blood pressure noted to be high at 170/200 likely secondary to anxiety Chestclear to auscultate bilaterally HeartS1, S2 no murmur Abdomensoft, tender in the epigastrium without guarding and rigidity, bowel sound present Extremitiesnegative for any edema Her admission labs, imaging studies reviewed Noted to have mild acute pancreatitis on CT scan of the abdomen with new evidence of pseudocyst compared with CT of 08/13/2021 N.p.o., IV fluid, symptomatic medications and pain medications GI consulted Agree with assessment and plan as outlined above by Malini dasilva PA-C. DR Perlita Valdez
[2021-10-06] MEDS: MAGNESIUM SULFATE / D5W 1 GM/100 ML BAG IV SCH ×2 (17:36→23:14)
[2021-10-06] MEDS ORDERED: OPTIRAY 320 100ml IV ONE (19:04)
--- NOTE | 2021-10-06 19:31 | CT Scan Report ---
ABDOMEN AND PELVIS CT WITH IV CONTRAST CT DOSE: 282.35 mGy.cm HISTORY: Acute epigastric abdominal pain acute pancreatitis TECHNIQUE: Multiaxial CT images of the abdomen and pelvis were performed following the IV administrat ion of 95 cc of Optiray, A dose lowering technique was utilized adhering to the principles of ALARA. COMPARISON STUDY: CT abdomen and pelvis 08/13/2021 FINDINGS: Mild dependent subsegmental bibasilar atelectasis. There is no pneumatosis or pneumoperitoneum. The i qamar inferior cardiac chambers are unremarkable. The spleen, and adrenal glands appear unremarkable. The liver is upper limits of normal in size. Mild focal fatty infiltration is noted within the left hepatic lobe adjacent to the falciform ligament. P atent hepatic, portal and superior mesenteric veins. The splenic vein is also patent. There is mild i nterstitial and peripancreatic edema which is most pronounced in the pancreatic body and tail. No def inite evidence of pancreatic necrosis. There is a circumscribed ovoid 4.2 x 2.3 cm fluid collection i nvolving the pancreatic tail on image 109. Similar-appearing 3.2 x 2.5 cm fluid collection is noted i nterposed between the pancreatic head and duodenum. There is dilation involving the pancreatic duct, notably at the level of the head and neck measuring up to 9 mm. No definite common bile duct or intra hepatic biliary ductal dilation or biliary stone identified. Mild cortical scarring of the left kidney redemonstrated. No hydronephrosis. Unremarkable right kidne y. The urinary bladder is within normal limits. 1.3 cm right fundal uterine calcification is suggesti ve of a fibroid. Probable involuting cyst of the left ovary measures 1.7 cm. Trace free pelvic fluid. No abdominal aortic aneurysm or adenopathy. Mild wall thickening of the duodenum is likely reactive with adjacent trace free fluid. No bowel obst ruction. There is trace free fluid within the dependent pelvis. There is moderate fecal retention. Th e visualized appendix appears noninflamed. Unremarkable soft tissues. No acute fracture. The bones ap pear normal. IMPRESSION: 1. Mild acute pancreatitis. Pseudocysts involving the pancreatic head and tail are new from the 08/13 study. There is new moderate pancreatic ductal dilation which is presumably secondary to obstru ction from the pancreatic head pseudocyst. 2. Trace free fluid within the abdomen and pelvis. 3. No bowel obstruction or bowel wall thickening. 4. Chronic findings as above. ACT 112: Negative or not required by law. The above report was generated using voice recognition software. It may contain grammatical, syntax o r spelling errors. Electronically signed by: Pepe Lancaster M.D. 10/06/2021 7:30 PM
[2021-10-06] MEDS ORDERED: ALUMINUM/MAGNESIUM SUSP 30 ML UDC PO PRN (21:50)
[2021-10-06] MEDS ORDERED: GLUCAGON FOR INJ 1 MG VIAL SQ PRN (21:50)
[2021-10-06] MEDS ORDERED: ACETAMINOPHEN 325 MG TAB PO PRN (21:50)
[2021-10-06] MEDS ORDERED: DEXTROSE 50% 50 ML SYRINGE IV PRN (21:50)
[2021-10-06] MEDS ORDERED: GLUCOSE 10 TABS/TUBE PO PRN (21:50)
[2021-10-06] MEDS ORDERED: INSULIN ASPART PER UNIT SC SCH (21:50)
[2021-10-06] MEDS ORDERED: GLUCOSE 40% GEL 15 GM TUBE PO PRN (21:50)
[2021-10-06] MEDS ORDERED: CARBOHYDRATES FOR HYPOGLYCEMIA PO PRN (21:50)
[2021-10-06] MEDS ORDERED: MAGNESIUM HYDROXIDE SUSP 30 ML UDC PO PRN (21:50)
[2021-10-06] MEDS ORDERED: POLYETHYLENE (MIRALAX) 17 GM PACK PO PRN (21:50)
[2021-10-06] MEDS: ENOXAPARIN INJ 40 MG/0.4 ML SYR SQ SCH (22:00)
[2021-10-06] MEDS: MoRPHine SULFATE 4 MG/ML 1 ML CARP\\VIAL IV PRN (22:02)
[2021-10-06] MEDS: LACTATED RINGER'S 1,000 ML IV SCH (22:06)
[2021-10-06] MEDS ORDERED: MELATONIN 3 MG TAB PO PRN (22:18)
[2021-10-06] MEDS: ONDANSETRON INJ 2 MG/ML 2 ML VIAL IV PRN (23:22)
[2021-10-06] MEDS: INSULIN GLARGINE SOLOSTAR 100 UNITS/ML 3 ML PEN SC SCH (23:55)
[2021-10-07 00:49] LABS: Appearance Urine Clear (Clear); Bacteria Urine Automated 1+ (Negative); Bilirubin Urine Negative (Negative); Blood Urine Negative (Negative); Color Urine Yellow; Epithelial Cell Urine Auto >30 /lpf (0-5); Glucose Urine UA Negative (Negative); Ketones Urine Trace (Negative); Leukocyte Esterase Urine Negative (Negative); Nitrite Urine Negative (Negative); Protein Urine Trace (Negative); RBC Urine Automated 0-4 /hpf (0-4); Specific Gravity Urine > 1.045 (1.000-1.030); Urobilinogen Urine Negative (Negative)
[2021-10-07] MEDS: MoRPHine SULFATE 4 MG/ML 1 ML CARP\\VIAL IV PRN ×5 (02:44→22:37)
[2021-10-07] MEDS: LACTATED RINGER'S 1,000 ML IV SCH ×5 (03:24→22:39)
[2021-10-07] MEDS: INSULIN ASPART PER UNIT SC SCH ×3 (06:16→18:08)
[2021-10-07] MEDS: INSULIN GLARGINE SOLOSTAR 100 UNITS/ML 3 ML PEN SC SCH (07:28)
[2021-10-07 08:28] LABS: Basophils # (auto) 0.02 K/uL (0-0.2); Basophils % (auto) 0.3 %; Eosinophils # (auto) 0.16 K/uL (0-0.5); Eosinophils % (auto) 2.4 %; Hematocrit (blood only) 33.4 % (37-47); Hemoglobin 11.2 g/dL (12.0-16.0); Lymphocytes # (auto) 2.54 K/uL (1.2-3.4); Lymphocytes % (auto) 37.9 %; Mean Corpuscular Hemoglobin 30.1 pg (25-34); Mean Corpuscular Hgb Conc 33.5 g/dL (32-36); Mean Corpuscular Volume 89.8 fL (80-100); Mean Platelet Volume 10.5 fL (7.4-10.4); Monocytes # (auto) 0.33 K/uL (0.11-0.59); Monocytes % (auto) 4.9 %; Neutrophils # (auto) 3.65 K/uL (1.4-6.5); Neutrophils % (auto) 54.5 %; Platelet Count 276 K/uL (130-400); RDW Coefficient of Variation 12.1 % (11.5-14.5); RDW Standard Deviation 39.5 fL (36.4-46.3); Red Blood Count 3.72 M/uL (4.2-5.4)
[2021-10-07] MEDS: ONDANSETRON INJ 2 MG/ML 2 ML VIAL IV PRN ×3 (08:45→22:37)
[2021-10-07 09:01] LABS: Alanine Aminotransferase 5 U/L (7-52); Albumin Globulin Ratio 1.4 (0.9-2); Alkaline Phosphatase 24 U/L (34-104); Anion Gap 3 (3-11); Aspartate Aminotransferase 6 U/L (13-39); BUN Creatinine Ratio 12.9 (10-20); Bilirubin,Total 0.3 mg/dl (0.2-1.0); Blood Urea Nitrogen 4 mg/dl (6-23); Calcium 7.9 mg/dl (8.5-10.1); Carbon Dioxide 24 mmol/L (21-32); Chloride 109 mmol/L (98-107); Chol HDL Ratio 4.4 (0-5); Cholesterol 160 mg/dl (0-200); Creatinine Clr Calc Pharmacy 207.8 ml/min; Est GFR (African American) > 150.0 ml/min; Est GFR (Non-African American) 146.8 ml/min; Globulin 2.2 gm/dl (2.5-4.0); Glucose 112 mg/dl (70-99(Fasting)); HDL Cholesterol 36 mg/dl; LDL Cholesterol Calculated 100 mg/dl; Lipase 280 U/L (11-82); Magnesium 1.6 mg/dl (1.7-2.4); Potassium 3.6 mmol/L (3.5-5.1); Sodium 136 mmol/L (136-145); Total Protein 5.2 gm/dl (6.0-8.3); Triglycerides 119 mg/dl (0-150); VLDL Cholesterol 24 mg/dl (0-30)
--- NOTE | 2021-10-07 10:45 | Gastrointestinal Consultation ---
Date of Consultation October 07, 2021 Assessment & Plan (1) Acute recurrent pancreatitis: Acute, recurrent pancreatitis complicated by the formation of pseudocysts which may be compressing on the duodenum causing some of her nausea/vomiting. She does use marijuana frequently, both smoking and oils. I suggested to the pt that this may also be contributing to her nausea/vomiting and recommended abstention. Agree with LR @ 200/hr. MRCP to more clearly image the pancreas and bile ducts. Will need eventual EUS possibly with draining of the pancreas cysts if mature - best timing of EUS to be determined but likely in 4-6 wks. May start clear liquids po tomorrow morning. Given positive reinforcement on ETOH cessation. Would use narcotics cautiously. Will continue to follow. Supervising Physician Co-Signing Physician Notes Attending attestation I have seen, examined this patient, and agree with the findings and above by our mid-level provider BROOKE Canales, with the following additions: Acute recurrent pancreatitis, likely secondary to Etoh, has been smoldering since Jul. Will obtain MRCP secondary to cysts and PD changes uncomplicated without end organ dysfunction IVF, pain control History of Present Illness Attending Physician: Kamille Hansen MD History of Present Illness Ms. Mcdowell is a 36 yr old female pt of Dr. Harinder Nathan with a hx of increased ETOH intake, reporting abstinence since Jul 2021 who had ETOH pancreat itis initially in 2018, most recently again in July [address] with acute, uncomplicated pancreatitis. She reports that she has continued with significant pain, nausea and vomiting since her last admission in July 2021. On Monday, these symptoms worsened and yesterday, she presented to the ED. CT on arrival with new 3 cm pancreatic head and 4 cm pancreas tail cysts as well as moderate pancreatic duct dilation. Lipase was elevated on arrival at 1679- >280 and LFTs were normal. ETOH level was normal (no evidence of recent alcohol intake though tox was positive for cannabinoids). Creatinine remains normal. No leukocytosis, Hb 12.8->11.2 on LR at 200/hr. She is awake, alert, oriented and appears well w/o tachycardia or diaphoresis but does c/o pain. Allergies Allergy/AdvReac Type Severity Reaction Status Date / Time bee venom protein (honey bee) Allergy Severe ANAPHYLAXIS Verified 10/06/21 16:21 Home Medications Medication Instructions Recorded Confirmed Type cetirizine 10 mg tablet 10 mg PO QAM #0 tab 08/07/21 10/06/21 Rx folic acid 1 mg tablet 1 mg PO QAM #30 tab 08/16/21 10/06/21 Rx pantoprazole 40 mg tablet,delayed 40 mg PO BID #30 tab 08/16/21 10/06/21 Rx release thiamine HCl (vitamin B1) 100 mg 100 mg PO QAM #30 tab 08/16/21 10/06/21 Rx tablet (Vitamin B-1) aripiprazole 5 mg tablet 5 mg PO DAILY 10/06/21 10/06/21 History baclofen 10 mg tablet 10 mg PO NOW 10/06/21 10/06/21 History trazodone 50 mg tablet 50 mg PO HS 10/06/21 10/06/21 History Patient History Medical History Anxiety H/O Asthma Cardiac murmur CONGENITAL -- BENIGN. 10/09/15 echo: The examination is adequate to evaluate the referral indication. The qualitative LV ejection fraction is 60-64% (normal). The left ventricular diastolic function is normal. No significant valvular disease is present. Depression H/O Diabetes GERD (gastroesophageal reflux disease) R/T Gestational diabetes Scoliosis MINOR Surgical History History of adenoidectomy History of section x 2 History of tonsillectomy Family History Other Adopted Social History Smoking Status: Current every day smoker Tobacco Type: Cigarettes Cigarettes Per Day: 5-8; Second Hand Exposure: Yes; Do You Dip or Chew Tobacco: No; Tobacco Cessation Education Requested by Patient: No Hx Alcohol Use: Yes Alcohol type: wine Hx Substance Use: Yes Prescribed Medications: Marijuana Last Used Substance: Unknown Last Used Substance Other:: Last used this AM Preferred Language: Sudanese 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: Effective Treer Required: No Beliefs That Will Affect Care: None Current Living Situation: Family Current Living Situation Comment: with kids Other Information That Helps Us Care for You: No Feels Safe at Home: Yes Assistive Devices: None Review of Systems Review of Systems: ROS: Gen: Denies weakness, fevers, weight loss Eyes: No eye redness, or pain, no recent vision changes Resp: No SOB, no cough Cardio: No palpitations/irregular beats, no chest pain GI: As per HPI, otherwise (-) : Denies pain on urination Skin: No jaundice, itching or new rashes Physical Exam Constitutional: well developed and cooperative Eyes: PERRL, conjunctivae normal, anicteric sclerae Respiratory: normal respiratory effort, lungs clear to auscultation normal respiratory effort and able to speak in complete sentences; no respiratory distress, no labored breathing, does not use accessory muscles and no cough Cardiovascular: RRR, no murmur, no edema Gastrointestinal (Abdomen): Inspection/Auscultation: abdomen normal to inspection; abdomen not distended and no abdominal edema Percussion/Palpation: + abdomen tender (Mild diffuse adbdominal msk tenderness. No signs of acute abdomen.) and abdomen soft; no guarding and abdomen not rigid Skin: no rashes, warm and dry normal turgor Neurologic: PERRL, EOMI, accommodation nl, no face palsy, no dysarthria awake; not confused Psychiatric: A+Ox3, euthymic affect Orientation: cooperative Results & Data ([facility]) Vital Signs (Past 12 Hours) Vital Signs Temp Pulse Resp BP Pulse Ox 10/07/21 07:47 36.8 C 66 16 122/82 99 Laboratory Results WBC 6.7, Hb 11.2, Hct 33, P;lts 276, Na 136, K 3.6 Cl 111, CO2 24, BUN 4, Cr 0.31, glucose 112. Diagnostic Findings CTAP w IV contrast on 10/06/21: 1. Mild acute pancreatitis. Pseudocysts involving the pancreatic head and tail are new from the 08/13/2021 study. There is new moderate pancreatic ductal dilation which is presumably secondary to obstruction from the pancreatic head pseudocyst. 2. Trace free fluid within the abdomen and pelvis. 3. No bowel obstruction or bowel wall thickening. 4. Chronic findings as above.
--- NOTE | 2021-10-07 16:20 | Hospitalist Progress Note ---
Date of Service October 07, 2021 Assessment & Plan (1) Acute recurrent pancreatitis: (2) Hypomagnesemia: (3) Hypokalemia: (4) DMII (diabetes mellitus, type 2): Plan: This is a 35-year-old female who has significant past medical history of T2DM, HTN, vitamin D deficiency, alcoholism, depression with anxiety, ADHD, tobacco abuse who presents to ED secondary to abd pain x 3 weeks and was found to have acute recurrent pancreatitis. Acute recurrent pancreatitis Lipase level 1167 -> [address] abd/pelvis with mild acute pancreatitis. Pseudocysts involving the pancreatic head and tail are new from the 08/13/2021 study. There is new moderate pancreatic ductal dilation which is presumably 2/2 obstruction from the pancreatic head pseudocyst Consulted gastroenterology, is scheduled for MRCP as outpatient on 10/15/2021 - may be done while in-patient. Appreciate recommendations Keep NPO for now LR at 200 cc/h IV morphine PRN for severe pain Denies alcohol consumption since July Hypokalemia K 3.6 today. Repeat BMP tomorrow Hypomagnesemia Mag 1.6, replaced T2DM Previously diagnosed, recent A1c on 10/01/2021 was 7.0 She was placed on Lantus/NovoLog regimen, but patient admits to not taking Lantus/novolog per protocol Major depressive disorder Use medical marijuana Prescribed Abilify and trazodone DVT prophylaxis: Lovenox Dispo: [facility] PCP: Randy Full code Admission and Anticipated Discharge Date Admission Date: October 06, 2021 Supervising Physician Co-Signing Physician Notes 35-year-old lady with PMH of pancreatitis x2, T2DM, alcohol abuse, current smoking, HTN, vitamin D deficiency, depression with anxiety, ADHD presented 10/06 to our ED with belly pain and was found to be in pancreatitis. Lipase was elevated at presentation. Patient was sober for 13 months and then relapsed in July 2021, her last drink is on July 31, 2021 as per patient. Patient does not smoke cigarettes maybe 2 to 5 cigarettes in a day and not every day per patient. Patient is on room air, no BLE edema appreciated, not in active pain, on abdominal examination I could not appreciate any grimacing or pain but when I asked post examination patient said that there was a lot of pain when I examined the patient. Continue with IV fluids, n.p.o., pain management, MRCP per GI, outpatient GI follow-up for likely EUS in 4 to 6 weeks. I have seen and examined the patient and have discussed the case with the provider above. I agree with the assessment and plan as stated. Subjective Seen and examined in 324-1 in follow up for acute pancreatitis. Endorsing continued epigastric abdominal pain into RUQ. Associated with nausea but no vomiting today. No F/C, CP, SOB, dysuria or diarrhea. Review of Systems Review of Systems: At least ten systems reviewed and negative except as noted in the HPI. Physical Exam Physical Exam: Gen: WD/WN, NAD, lying in bed, A&Ox3 HEENT: Normocephalic, atraumatic, conjunctivae moist, sclerae anicteric, mucous membranes moist Lung: Clear to Auscultation bilaterally, no wheezes/rales/rhonchi Heart: Regular rate, regular rhythm, no murmurs, rubs, or gallops Abdomen: Soft, TTP in epigastrium and RUQ, ND +BS x 4 Extremities: no edema Skin: Warm, no rash Results & Data Results & Data ([facility]) Vital Signs (Past 12 Hours) Vital Signs Temp Pulse Resp BP Pulse Ox 10/07/21 14:30 36.9 C 63 16 101/68 100 10/07/21 07:47 36.8 C 66 16 122/82 99 Laboratory Results Short CBC 10/07/21 Range/Units 07:10 WBC 6.70 (4.8-10.8) K/uL Hgb 11.2 L (12.0-16.0) g/dL Hct 33.4 L (37-47) % Plt Count 276 (130-400) K/uL BMP 10/07/21 07:10 Sodium 136 Potassium 3.6 Chloride 109 H Carbon Dioxide 24 BUN 4 L Creatinine 0.31 L Glucose 112 H Calcium 7.9 L Liver Function 10/07/21 Range/Units 07:10 Total Bilirubin 0.3 (0.2-1.0) mg/dl AST 6 L (13-39) U/L ALT 5 L (7-52) U/L Alkaline Phosphatase 24 L (34-104) U/L Albumin 3.0 L (3.4-5.0) gm/dl Urine 10/07/21 Range/Units 00:30 Urine Color Yellow Urine Appearance Clear (Clear) Urine pH 7.0 (4.5-7.5) Ur Specific [place] > 1.045 H (1.000-1.030) Urine Protein Trace H (Negative) Urine Glucose (UA) Negative (Negative) Diagnostic Findings Abdomen/Pelvis CT 10/06/21 17:[address] WITH IV CONTRAST CT DOSE: 282.35 mGy.cm HISTORY: Acute epigastric abdominal pain acute pancreatitis TECHNIQUE: Multiaxial CT images of the abdomen and pelvis were performed following the IV administration of 95 cc of Optiray, A dose lowering technique was utilized adhering to the principles of ALARA. COMPARISON STUDY: CT abdomen and pelvis 08/13/2021 FINDINGS: Mild dependent subsegmental bibasilar atelectasis. There is no pneumatosis or pneumoperitoneum. The imaged inferior cardiac chambers are unremarkable. The spleen, and adrenal glands appear unremarkable. The liver is upper limits of normal in size. Mild focal fatty infiltration is noted within the left hepatic lobe adjacent to the falciform ligament. Patent hepatic, portal and superior mesenteric veins. The splenic vein is also patent. There is mild interstitial and peripancreatic edema which is most pronounced in the pancreatic body and tail. No definite evidence of pancreatic necrosis. There is a circumscribed ovoid 4.2 x 2.3 cm fluid collection involving the pancreatic tail on image 109. Similar-appearing 3.2 x 2.5 cm fluid collection is noted interposed between the pancreatic head and duodenum. There is dilation involving the pancreatic duct, notably at the level of the head and neck measuring up to 9 mm. No definite common bile duct or intrahepatic biliary ductal dilation or biliary stone identified. Mild cortical scarring of the left kidney redemonstrated. No hydronephrosis. Unremarkable right kidney. The urinary bladder is within normal limits. 1.3 cm right fundal uterine calcification is suggestive of a fibroid. Probable involuting cyst of the left ovary measures 1.7 cm. Trace free pelvic fluid. No abdominal aortic aneurysm or adenopathy. Mild wall thickening of the duodenum is likely reactive with adjacent trace free fluid. No bowel obstruction. There is trace free fluid within the dependent pelvis. There is moderate fecal retention. The visualized appendix appears noninflamed. Unremarkable soft tissues. No acute fracture. The bones appear normal. IMPRESSION: 1. Mild acute pancreatitis. Pseudocysts involving the pancreatic head and tail are new from the 08/13/2021 study. There is new moderate pancreatic ductal dilation which is presumably secondary to obstruction from the pancreatic head pseudocyst. 2. Trace free fluid within the abdomen and pelvis. 3. No bowel obstruction or bowel wall thickening. 4. Chronic findings as above. ACT 112: Negative or not required by law. The above report was generated using voice recognition software. It may contain grammatical, syntax or spelling errors. Electronically signed by: Pepe Lancaster M.D. 10/06/2021 7:30 PM
[2021-10-07] MEDS ORDERED: MAGNESIUM SULFATE / D5W 1 GM/100 ML BAG IV ONE (16:30)
[2021-10-07] MEDS ORDERED: hydrOXYzine HCl 25 MG TAB PO PRN (22:03)
[2021-10-07] MEDS: ENOXAPARIN INJ 40 MG/0.4 ML SYR SQ SCH (22:30)
[2021-10-07] MEDS: traZODone HCL 50 MG TAB PO SCH (22:38)
[2021-10-08] MEDS: INSULIN GLARGINE SOLOSTAR 100 UNITS/ML 3 ML PEN SC SCH ×3 (00:51→20:54)
[2021-10-08] MEDS: INSULIN ASPART PER UNIT SC SCH ×5 (00:51→23:29)
[2021-10-08] MEDS: LACTATED RINGER'S 1,000 ML IV SCH ×4 (03:31→20:00)
[2021-10-08] MEDS: MoRPHine SULFATE 4 MG/ML 1 ML CARP\\VIAL IV PRN ×2 (05:45→10:02)
[2021-10-08 06:18] LABS: Basophils # (auto) 0.01 K/uL (0-0.2); Basophils % (auto) 0.2 %; Eosinophils # (auto) 0.12 K/uL (0-0.5); Eosinophils % (auto) 2.1 %; Hematocrit (blood only) 33.8 % (37-47); Hemoglobin 11.3 g/dL (12.0-16.0); Immature Granulocytes # (auto) 0.01 K/uL (0.00-0.02); Immature Granulocytes % (auto) 0.2 %; Lymphocytes # (auto) 2.46 K/uL (1.2-3.4); Lymphocytes % (auto) 43.3 %; Mean Corpuscular Hemoglobin 30.1 pg (25-34); Mean Corpuscular Hgb Conc 33.4 g/dL (32-36); Mean Corpuscular Volume 89.9 fL (80-100); Mean Platelet Volume 10.5 fL (7.4-10.4); Monocytes # (auto) 0.32 K/uL (0.11-0.59); Monocytes % (auto) 5.6 %; Neutrophils # (auto) 2.76 K/uL (1.4-6.5); Neutrophils % (auto) 48.6 %; Platelet Count 273 K/uL (130-400); RDW Coefficient of Variation 12.1 % (11.5-14.5); RDW Standard Deviation 39.3 fL (36.4-46.3); Red Blood Count 3.76 M/uL (4.2-5.4); White Blood Count 5.68 K/uL (4.8-10.8)
[2021-10-08 06:43] LABS: Alanine Aminotransferase 5 U/L (7-52); Albumin Globulin Ratio 1.5 (0.9-2); Albumin Level 3.2 gm/dl (3.4-5.0); Alkaline Phosphatase 23 U/L (34-104); Anion Gap 8 (3-11); Aspartate Aminotransferase 8 U/L (13-39); BUN Creatinine Ratio 10.3 (10-20); Bilirubin,Total 0.4 mg/dl (0.2-1.0); Blood Urea Nitrogen 4 mg/dl (6-23); Calcium 8.7 mg/dl (8.5-10.1); Carbon Dioxide 24 mmol/L (21-32); Chloride 105 mmol/L (98-107); Creatinine Clr Calc Pharmacy 165.1 ml/min; Est GFR (African American) > 150.0 ml/min; Est GFR (Non-African American) 136.1 ml/min; Globulin 2.2 gm/dl (2.5-4.0); Glucose 78 mg/dl (70-99(Fasting)); Lipase 184 U/L (11-82); Magnesium 1.3 mg/dl (1.7-2.4); Potassium 3.7 mmol/L (3.5-5.1); Sodium 137 mmol/L (136-145); Total Protein 5.4 gm/dl (6.0-8.3)
[2021-10-08] MEDS: ONDANSETRON INJ 2 MG/ML 2 ML VIAL IV PRN ×2 (07:57→17:55)
--- NOTE | 2021-10-08 08:53 | Magnetic Resonance Report ---
MRCP CLINICAL HISTORY: pancreatitis, dilated ducts on CT. TECHNIQUE: Utilizing a 1.5 [place] magnet and dedicated coil, multiplanar, multiecho imaging of the [facility] er abdomen was performed utilizing heavily T2 weighted pulsing sequences without IV contrast. COMPARISON STUDY: CT of the abdomen and pelvis October 06, 2021. FINDINGS: Trace bilateral pleural effusions are present. No intra or extrahepatic biliary ductal dila tation is present. No common bile duct calculi are identified. No hepatic lesions are identified on t his unenhanced examination. Mild peripancreatic stranding and fluid is noted. This represents acute p ancreatitis. Note is made of a 3 x 2.4 cm pseudocyst within the pancreatic head. This may contain min imal debris. Note is made of a 4.1 x 2.6 cm pseudocyst within the pancreatic tail. There is moderate dilatation of the main pancreatic duct, measuring 6 mm in caliber. There is a 7 mm filling defect wit hin the distal hepatic duct at the level the pancreatic head suggestive of a pancreatic duct calculus . This is at site of caliber change of the pancreatic duct. No additional calculi are present. Multip le mildly dilated side branches within the pancreas are noted. There is no hydronephrosis. Unenhanced images of the spleen, adrenal glands and kidneys are unremarkable. No gallstones are identified by Perlita CARBALLO. Caliber of visualized small and large bowel are normal. IMPRESSION: 1. Moderate dilatation of the pancreatic duct. Probable 7 mm calculus within the pancreatic duct at t he level of the pancreatic head which likely accounts for pancreatic ductal dilatation. 2. Peripancreatic fluid consistent with acute pancreatitis. 4.1 cm pseudocyst within the pancreatic t ail and 3 cm pseudocyst within the pancreatic head. 3. No biliary ductal dilatation. No gallstones identified. No common bile duct calculi identified. ACT 112: Negative or not required by law. Electronically signed by: Pedro Pablo Moore M.D. 10/08/2021 8:52 AM
[2021-10-08] MEDS: MAGNESIUM SULFATE / D5W 1 GM/100 ML BAG IV SCH ×2 (11:05→13:10)
--- NOTE | 2021-10-08 11:09 | Gastroenterology Progress Note ---
Date of Service October 08, 2021 Assessment & Plan (1) Acute recurrent pancreatitis: Plan: Acute, recurrent pancreatitis complicated by the formation of pseudocysts which may be compressing on the duodenum causing some of her nausea/vomiting. Pancreatic duct stone which may be contributing to recurrent pancreatitis. - She does use marijuana frequently, both smoking and oils. I suggested to the pt that this may also be contributing to her nausea/vomiting and recommended abstention. - Would continue LR @ 200/hr. - EUS for possible removal/stenting of the duct stone as well as possible draining of the cysts being arranged. Our office will reach out to the pt. - Clear liquids. If not increased pain or vomiting after breakfast and lunch then may advance for supper. - Given positive reinforcement on ETOH cessation. - Would use narcotics cautiously - discussed trying to decrease with the patient. GI will sign sign off. Please notify us of new/worsening GI issues. Admission and Anticipated Discharge Date Admission Date: October 06, 2021 Supervising Physician Co-Signing Physician Notes I saw and evaluated the patient. She has a history of recurrent nausea and vomiting associated with use of cannabis. The patient also has a history of pancreatitis with several pseudocyst noted within the pancreas. Imaging on prior study seems to indicate she may have a pancreatic stone as well. Recommendations Continue with IV hydration Advance to a clear liquid diet outpatient EUS with probable ERCP and pancreatogram with stent placement Patient should consider cessation of cannabis consumption as she may have a component of cannabis hyperemesis Subjective 36 yr old female. Admitted 10/06 for recurrent acute (likely ETOH) pancreatitis. Reporting abstinence since Jul 2021. Had admission for pancreatitis in Jul 2021. Missed MRI f/u due to vomiting that day. Has had pain, nausea and vomiting since her last admission. N/V pain worsened prompting arrival in ED on Monday. CT with pancreatic duct dilation, new cysts: head/near duodenum 3cm, tail 4 cm. Lipase 1679->280 -> 184. LFTs were normal. ETOH level was normal. Cannabinoids +. Creatinine remains normal. No leukocytosis, Hb 12.8->11.3 on LR at 200/hr. Reports about 30% improvement overall compared to arrival. On exam, she is awake, alert, oriented and appears well w/o tachycardia or diaphoresis, not passing gas or BMs yet. Abd soft, + epigastric tenderness. Asking to eat, but also asking for and receiving narcotics: Morphine 4mg IV a total of 5 doses in the past 24 hrs. Review of Systems Review of Systems: ROS: Gen: Denies weakness, fevers, weight loss Eyes: No eye redness, or pain, no recent vision changes Resp: No SOB, no cough Cardio: No palpitations/irregular beats, no chest pain GI:As per HPI, otherwise (-) : Denies pain on urination Skin: No jaundice, itching or new rashes Physical Exam Constitutional: well developed and cooperative Eyes: PERRL, conjunctivae normal, anicteric sclerae ENMT: external ear and nose normal, oropharynx normal Neck: trachea midline, no thyromegaly Respiratory: normal respiratory effort, lungs clear to auscultation Cardiovascular: RRR, no murmur, no edema Gastrointestinal (Abdomen): Inspection/Auscultation: abdomen normal to inspection; abdomen not distended and no abdominal edema Percussion/Palpation: + abdomen tender (Moderate tenderness in the epigastric area.) and abdomen soft; no guarding and abdomen not rigid Skin: no rashes, warm and dry normal turgor Neurologic: PERRL, EOMI, accommodation nl, no face palsy, no dysarthria awake; not confused Psychiatric: A+Ox3, euthymic affect Orientation: cooperative Lymphatic: no cervical or axillary lymphadenopathy Results & Data ([facility]) Vital Signs (Past 12 Hours) Vital Signs Temp Pulse Resp BP Pulse Ox 10/08/21 07:44 36.8 C 66 14 96/60 L 97 Laboratory Results WBC 5.6, Hc 11.3, Hct 33.1, Plts 73, Na 137, K 3.7, Cl 105, CO2 24, BUN 4, Cr 0.39, Glucose 78. Diagnostic Findings CTAP w IV contrast on 10/06/21: 1. Mild acute pancreatitis. Pseudocysts involving the pancreatic head and tail are new from the 08/13/2021 study. There is new moderate pancreatic ductal dilation which is presumably secondary to obstruction from the pancreatic head pseudocyst. 2. Trace free fluid within the abdomen and pelvis. 3. No bowel obstruction or bowel wall thickening. 4. Chronic findings as above. MRCP 10/06/21: 1. Moderate dilatation of the pancreatic duct. Probable 7 mm calculus within the pancreatic duct at the level of the pancreatic head which likely accounts for pancreatic ductal dilatation. 2. Peripancreatic fluid consistent with acute pancreatitis. 4.1 cm pseudocyst within the pancreatic tail and 3 cm pseudocyst within the pancreatic head. 3. No biliary ductal dilatation. No gallstones identified. No common bile duct calculi identified.
[2021-10-08] MEDS ORDERED: Nursing to Pharmacy Communication SCH (11:45)
[2021-10-08] MEDS ORDERED: MoRPHine SULFATE 2 MG/ML CARP IV PRN (13:39)
--- NOTE | 2021-10-08 14:37 | Hospitalist Progress Note ---
Date of Service October 08, 2021 Assessment & Plan (1) Acute recurrent pancreatitis: (2) Hypomagnesemia: (3) Hypokalemia: (4) DMII (diabetes mellitus, type 2): Plan: This is a 35-year-old female who has significant past medical history of T2DM, HTN, vitamin D deficiency, alcoholism, depression with anxiety, ADHD, tobacco abuse who presents to ED secondary to abd pain x 3 weeks and was found to have acute recurrent pancreatitis. Acute recurrent pancreatitis Lipase level 1167 -> 288 -> 184 CT abd/pelvis with mild acute pancreatitis. Pseudocysts involving the pancreatic head and tail are new from the 08/13/2021 study. There is new moderate pancreatic ductal dilation which is presumably 2/2 obstruction from the pancreatic head pseudocyst Consulted gastroenterology - MRCP with: * Moderate dilatation of the pancreatic duct. Probable 7 mm calculus within the pancreatic duct at the level of the pancreatic head which likely accounts for pancreatic ductal dilatation. * Peripancreatic fluid consistent with acute pancreatitis. 4.1 cm pseudocyst within the pancreatic tail and 3 cm pseudocyst within the pancreatic head. * No biliary ductal dilatation. No gallstones identified. No common bile duct calculi identified. Advanced to clear liquids - if tolerates without increased pain or vomiting, may advance for dinner Continue LR at 200 ml/hr Continue etoh cessation, encouraged to stop using marijuana as she may have a component of cannabis hyperemesis Decreased IV morphine PRN for severe pain, plan to discontinue Follow up with GI in clinic - planning for outpatient EUS with probable ERCP and pancreatogram with stent placement Hypokalemia K 3.7 today. Repeat BMP tomorrow Hypomagnesemia Mag 1.3, replaced T2DM Previously diagnosed, recent A1c on 10/01/2021 was 7.0 She was placed on Lantus/NovoLog regimen, but patient admits to not taking Lantus/novolog per protocol Major depressive disorder Use medical marijuana Prescribed Abilify and trazodone DVT prophylaxis: Lovenox Dispo: [facility] PCP: Randy Full code Admission and Anticipated Discharge Date Admission Date: October 06, 2021 Supervising Physician Co-Signing Physician Notes 35-year-old lady with PMH of pancreatitis x2, T2DM, alcohol abuse, current smoking, HTN, vitamin D deficiency, depression with anxiety, ADHD presented 10/06 to our ED with belly pain and was found to be in pancreatitis. Lipase was elevated at presentation. Patient was sober for 13 months and then relapsed in July 2021, her last drink is on July 31, 2021 as per patient. Patient does smoke cigarettes maybe 2 to 5 cigarettes in a day and not every day per patient. Patient is on room air, no BLE edema appreciated, not in active pain, on abdominal examination I could not appreciate any grimacing or pain but when I asked post examination patient said that there was a lot of pain when I examined the patient. Continue with IV fluids, clear liq - adv as narda., pain management, 10/08 MRCP reviewed, outpatient GI follow-up for likely EUS in 4 to 6 weeks. I have seen and examined the patient and have discussed the case with the provider above. I agree with the assessment and plan as stated. Subjective Seen and examined in 324-1 in follow up for acute pancreatitis. Endorsing continued epigastric abdominal pain into RUQ. Nausea has improved, is tolerating clear liquids. No vomiting. No F/C, CP, SOB, dysuria or diarrhea. Review of Systems Review of Systems: At least ten systems reviewed and negative except as noted in the HPI. Physical Exam Physical Exam: Gen: WD/WN, NAD, lying in bed, A&Ox3 HEENT: Normocephalic, atraumatic, conjunctivae moist, sclerae anicteric, mucous membranes moist Lung: Clear to Auscultation bilaterally, no wheezes/rales/rhonchi Heart: Regular rate, regular rhythm, no murmurs, rubs, or gallops Abdomen: Soft, TTP in epigastrium and RUQ, ND +BS x 4 Extremities: no edema Skin: Warm, no rash Results & Data Results & Data ([facility]) Vital Signs (Past 12 Hours) Vital Signs Temp Pulse Resp BP Pulse Ox 10/08/21 07:44 36.8 C 66 14 96/60 L 97 Laboratory Results Short CBC 10/08/21 Range/Units 05:26 WBC 5.68 (4.8-10.8) K/uL Hgb 11.3 L (12.0-16.0) g/dL Hct 33.8 L (37-47) % Plt Count 273 (130-400) K/uL BMP 10/08/21 05:26 Sodium 137 Potassium 3.7 Chloride 105 Carbon Dioxide 24 BUN 4 L Creatinine 0.39 L Glucose 78 Calcium 8.7 Liver Function 10/08/21 Range/Units 05:26 Total Bilirubin 0.4 (0.2-1.0) mg/dl AST 8 L (13-39) U/L ALT 5 L (7-52) U/L Alkaline Phosphatase 23 L (34-104) U/L Albumin 3.2 L (3.4-5.0) gm/dl Diagnostic Findings Abdomen/Pelvis CT 10/06/21 17:[address] WITH IV CONTRAST CT DOSE: 282.35 mGy.cm HISTORY: Acute epigastric abdominal pain acute pancreatitis TECHNIQUE: Multiaxial CT images of the abdomen and pelvis were performed following the IV administration of 95 cc of Optiray, A dose lowering technique was utilized adhering to the principles of ALARA. COMPARISON STUDY: CT abdomen and pelvis 08/13/2021 FINDINGS: Mild dependent subsegmental bibasilar atelectasis. There is no pneumatosis or pneumoperitoneum. The imaged inferior cardiac chambers are unremarkable. The spleen, and adrenal glands appear unremarkable. The liver is upper limits of normal in size. Mild focal fatty infiltration is noted within the left hepatic lobe adjacent to the falciform ligament. Patent hepatic, portal and superior mesenteric veins. The splenic vein is also patent. There is mild interstitial and peripancreatic edema which is most pronounced in the pancreatic body and tail. No definite evidence of pancreatic necrosis. There is a circumscribed ovoid 4.2 x 2.3 cm fluid collection involving the pancreatic tail on image 109. Similar-appearing 3.2 x 2.5 cm fluid collection is noted interposed between the pancreatic head and duodenum. There is dilation involving the pancreatic duct, notably at the level of the head and neck measuring up to 9 mm. No definite common bile duct or intrahepatic biliary ductal dilation or biliary stone identified. Mild cortical scarring of the left kidney redemonstrated. No hydronephrosis. Unremarkable right kidney. The urinary bladder is within normal limits. 1.3 cm right fundal uterine calcification is suggestive of a fibroid. Probable involuting cyst of the left ovary measures 1.7 cm. Trace free pelvic fluid. No abdominal aortic aneurysm or adenopathy. Mild wall thickening of the duodenum is likely reactive with adjacent trace free fluid. No bowel obstruction. There is trace free fluid within the dependent pelvis. There is moderate fecal retention. The visualized appendix appears noninflamed. Unremarkable soft tissues. No acute fracture. The bones appear normal. IMPRESSION: 1. Mild acute pancreatitis. Pseudocysts involving the pancreatic head and tail are new from the 08/13/2021 study. There is new moderate pancreatic ductal dilation which is presumably secondary to obstruction from the pancreatic head pseudocyst. 2. Trace free fluid within the abdomen and pelvis. 3. No bowel obstruction or bowel wall thickening. 4. Chronic findings as above. ACT 112: Negative or not required by law. The above report was generated using voice recognition software. It may contain grammatical, syntax or spelling errors. Electronically signed by: Pepe Lancaster M.D. 10/06/2021 7:30 PM Cholangiopancreatography MRI 10/07/21 16:43 MRCP CLINICAL HISTORY: pancreatitis, dilated ducts on CT. TECHNIQUE: Utilizing a 1.5 [place] magnet and dedicated coil, multiplanar, multiecho imaging of the upper abdomen was performed utilizing heavily T2 weighted pulsing sequences without IV contrast. COMPARISON STUDY: CT of the abdomen and pelvis October 06, 2021. FINDINGS: Trace bilateral pleural effusions are present. No intra or extrahepatic biliary ductal dilatation is present. No common bile duct calculi are identified. No hepatic lesions are identified on this unenhanced examination. Mild peripancreatic stranding and fluid is noted. This represents acute pancreatitis. Note is made of a 3 x 2.4 cm pseudocyst within the pancreatic head. This may contain minimal debris. Note is made of a 4.1 x 2.6 cm pseudocyst within the pancreatic tail. There is moderate dilatation of the main pancreatic duct, measuring 6 mm in caliber. There is a 7 mm filling defect within the distal hepatic duct at the level the pancreatic head suggestive of a pancreatic duct calculus. This is at site of caliber change of the pancreatic duct. No additional calculi are present. Multiple mildly dilated side branches within the pancreas are noted. There is no hydronephrosis. Unenhanced images of the spleen, adrenal glands and kidneys are unremarkable. No gallstones are identified by MRI. Caliber of visualized small and large bowel are normal. IMPRESSION: 1. Moderate dilatation of the pancreatic duct. Probable 7 mm calculus within the pancreatic duct at the level of the pancreatic head which likely accounts for pancreatic ductal dilatation. 2. Peripancreatic fluid consistent with acute pancreatitis. 4.1 cm pseudocyst within the pancreatic tail and 3 cm pseudocyst within the pancreatic head. 3. No biliary ductal dilatation. No gallstones identified. No common bile duct calculi identified. ACT 112: Negative or not required by law. Electronically signed by: Pedro Pablo Moore M.D. 10/08/2021 8:52 AM
[2021-10-08] MEDS: traZODone HCL 50 MG TAB PO SCH (20:53)
[2021-10-08] MEDS: ENOXAPARIN INJ 40 MG/0.4 ML SYR SQ SCH (20:56)
[2021-10-08] MEDS: oxyCODONE/ACETAMINOPHEN 5mg/325mg TAB PO PRN (21:03)
[2021-10-09] MEDS: LACTATED RINGER'S 1,000 ML IV SCH ×4 (00:57→14:36)
[2021-10-09 06:06] LABS: Hematocrit (blood only) 34.1 % (37-47); Hemoglobin 11.3 g/dL (12.0-16.0); Mean Corpuscular Hemoglobin 29.7 pg (25-34); Mean Corpuscular Hgb Conc 33.1 g/dL (32-36); Mean Corpuscular Volume 89.5 fL (80-100); Mean Platelet Volume 10.4 fL (7.4-10.4); Platelet Count 266 K/uL (130-400); RDW Standard Deviation 39.1 fL (36.4-46.3); Red Blood Count 3.81 M/uL (4.2-5.4); White Blood Count 6.78 K/uL (4.8-10.8)
[2021-10-09 06:40] LABS: Anion Gap 6 (3-11); BUN Creatinine Ratio 5.4 (10-20); Blood Urea Nitrogen 2 mg/dl (6-23); Calcium 8.1 mg/dl (8.5-10.1); Carbon Dioxide 23 mmol/L (21-32); Chloride 107 mmol/L (98-107); Creatinine Clr Calc Pharmacy 174.1 ml/min; Est GFR (African American) > 150.0 ml/min; Est GFR (Non-African American) 138.5 ml/min; Glucose 115 mg/dl (70-99(Fasting)); Potassium 3.9 mmol/L (3.5-5.1); Sodium 136 mmol/L (136-145)
[2021-10-09] MEDS: INSULIN ASPART PER UNIT SC SCH ×3 (09:40→18:37)
[2021-10-09] MEDS: INSULIN GLARGINE SOLOSTAR 100 UNITS/ML 3 ML PEN SC SCH (09:41)
[2021-10-09] MEDS: oxyCODONE/ACETAMINOPHEN 5mg/325mg TAB PO PRN (09:48)
--- NOTE | 2021-10-09 15:38 | Discharge Summary ---
Date of Service October 09, 2021 Admission HPI Per Admitting Provider This is a 35-year-old female who has significant past medical history of T2DM, HTN, vitamin D deficiency, alcoholism, depression with anxiety, ADHD, tobacco abuse who presents to ED secondary to abd pain x 3 weeks. She states she is been having off-and-on epigastric abdominal pain for the past 3 weeks. There is also been associated with nausea and vomiting. For the last few days she has been unable to keep anything to eat or drink down. She was seen by PCP on 10/01 for similar symptoms. She states they thought maybe it was constipation and placed her on a bowel regimen. She has prior history of pancreatitis in the past and is scheduled for MRCP on 10/15. She admits to been absent with alcohol since July. She also denies any significant NSAID use. She admits to feeling chilled and reports fever of 102 yesterday. She further complains of feeling dizzy, "off balance," right-sided mid back pain and overall feeling weak. She states that she was at work today when her symptoms got worse, she le ft and went to the chiropractor to address her right mid back pain and then came to ED. She denies any syncope or lightheadedness, chest pain, palpitations, cough, hemoptysis, hematemesis, melena, medic easier. She reports decreased urination due to poor intake. She states she is only been taking baclofen and has not been taking her home medications due to not feeling well. She did have a bowel movement yesterday. In ED patient was hemodynamically stable. She was modestly hypertensive. The bowel mount is significant for elevated lipase at 1167, low magnesium 1.4, low K at 3.4 and hyperglycemia at 168. Her ethyl alcohol level was negative. No imaging on abdomen was completed in ED. Admission Exam Per Admitting Provider Gen: WD/WN, NAD, lying in bed, A&Ox3 HEENT: Normocephalic, atraumatic, conjunctivae moist, sclerae anicteric, mucous membranes moist Lung: Clear to Auscultation bilaterally, no wheezes/rales/rhonchi Heart: Regular rate, regular rhythm, no murmurs, rubs, or gallops Abdomen: Soft, TTP in epigastrium and RUQ, ND +BS x 4 Extremities: no edema Skin: Warm, no rash Principal Diagnosis Acute recurrent pancreatitis Hypomagnesemia DM type II Discharge Exam GENERAL: Alert and oriented x3. NAD, on RA. HEENT: No pallor, no icterus. Pupils equal, round and reactive to light. Oral mucosa moist. NECK: No JVD, no neck masses. HEART: S1 and S2 heard. Regular rate and rhythm. No murmur, no gallop. RESPIRATORY SYSTEM: Normal AP diameter. No accessory muscle use. No wheezing, no crackles. ABDOMEN: Soft, bowel sounds present, nontender, no distention. CENTRAL NERVOUS SYSTEM: No facial droop. Speech is clear. Obeys simple commands. Moves extremities. EXTREMITIES: No edema, no erythema seen. Discharge Data Allergies Allergy/AdvReac Type Severity Reaction Status Date / Time bee venom protein (honey bee) Allergy Severe ANAPHYLAXIS Verified 10/06/21 16:21 Consultations 10/06/21 16:02 ED Decision to Admit Stat 10/06/21 21:50 Consult Gastroenterology Routine Ordered Studies 10/06/21 17:12 CT abd pelvis IV con only Stat 10/07/21 16:43 MR MRCP Routine Hospital Course (1) Acute recurrent pancreatitis: (2) Hypomagnesemia: (3) Hypokalemia: (4) DMII (diabetes mellitus, type 2): This is a 35-year-old female who has significant past medical history of T2DM, HTN, vitamin D deficiency, alcoholism, depression with anxiety, ADHD, tobacco abuse who presents to ED secondary to abd pain x 3 weeks and was found to have acute recurrent pancreatitis. She was managed for the following: Acute recurrent pancreatitis Lipase level 1167 -> 288 -> 184 CT abd/pelvis with mild acute pancreatitis. Pseudocysts involving the pancreatic head and tail are new from the 08/13/2021 study. There is new moderate pancreatic ductal dilation which is presumably 2/2 obstruction from the pancreatic head pseudocyst GI evaluated. MRCP with: * Moderate dilatation of the pancreatic duct. Probable 7 mm calculus within the pancreatic duct at the level of the pancreatic head which likely accounts for pancreatic ductal dilatation. * Peripancreatic fluid consistent with acute pancreatitis. 4.1 cm pseudocyst within the pancreatic tail and 3 cm pseudocyst within the pancreatic head. * No biliary ductal dilatation. No gallstones identified. No common bile duct calculi identified. Continue with soft diet upon discharge, advance as tolerated. [id number] Tylenol for pain management, can celecoxib with large meals 2 times a day. Zofran for nausea or vomiting. Continue etoh cessation, encouraged to stop using marijuana as she may have a component of cannabis hyperemesis Follow up with GI in clinic - planning for outpatient EUS with probable ERCP and pancreatogram with stent placement Hypomagnesemia Magnesium replaced, has history of low magnesium level, starting on oral supplements. T2DM Previously diagnosed, recent A1c on 10/01/2021 was 7.0 She was placed on Lantus/NovoLog regimen, but patient admits to not taking Patient advised to follow-up with the primary care physician for ongoing management of her diabetes, advised to continue with medication unless advised by physician otherwise. Major depressive disorder Use medical marijuana Prescribed Abilify and trazodone DVT prophylaxis: Shaunnanorubin PCP: Randy Full code Patient being discharged to home with following instruction at the point of discharge: Follow-up with your primary care physician within a week time. Follow-up with GI as an outpatient for outpatient EUS and further evaluation and management. Continue with soft diet for some time before advancing to regular diet. Advance as tolerated. For your pain you can use Tylenol [id number]. You will be prescribed celecoxib, use maximum of 2 times a day, use as needed for pain, take it with large meal, continue with your home PPI. Continue alcohol cessation, advise to stop smoking completely, advise to decrease or stop marijuana use as it can worsen your nausea and vomiting. You have been started on magnesium supplement, continue with it. For your diabetes management, follow-up with your primary care physician and continue with your previously prescribed medications, any changes you want to make with your diabetic medications, please consult with your primary care physician before stopping medications on own. Take medications as prescribed. Total Time Total Time Spent Total Time Spent (In Minutes): 33 Discharge Plan Discharge Items Patient Disposition: Home - Self-Care Reason For Visit: ACUTE PANCREATITIS Discharge Diagnosis: Acute recurrent pancreatitis Hypomagnesemia DM type II Activity: Resume your previous activity Non-emergency contact: Primary Care Provider Call non-emergency contact if: you have any medication questions, your symptoms worsen, your pain is not controlled and your temperature is above 101 Follow-up/Referrals: Harinder Nathan, [Primary Care Provider] - Diet: Carb Consistent or DM2 and Low Fat Addtl Attending Provider Instructions: Follow-up with your primary care physician within a week time. Follow-up with GI as an outpatient for outpatient EUS and further evaluation and management. Continue with soft diet for some time before advancing to regular diet. Advance as tolerated. For your pain you can use Tylenol [id number]. You will be prescribed celecoxib, use maximum of 2 times a day, use as needed for pain, take it with large meal, continue with your home PPI. Continue alcohol cessation, advise to stop smoking completely, advise to decrease or stop marijuana use as it can worsen your nausea and vomiting. You have been started on magnesium supplement, continue with it. For your diabetes management, follow-up with your primary care physician and continue with your previously prescribed medications, any changes you want to make with your diabetic medications, please consult with your primary care physician before stopping medications on own. Take medications as prescribed. Pending Studies at Discharge: No Stand-Alone Forms: My [facility] [employer], Smoking Cessation Medications and DC Order Prescriptions: New magnesium oxide 400 mg (241.3 mg magnesium) tablet 400 mg PO DAILY Qty: 30 RF: 0 celecoxib 100 mg capsule 100 mg PO BID PRN (Reason: pain) Qty: 30 RF: 0 ondansetron 4 mg tablet,disintegrating 4 mg PO DAILY PRN (Reason: nausea and vomiting) Qty: 30 RF: 0 Continued cetirizine 10 mg Tablet 10 mg PO QAM Qty: 0 RF: 0 pantoprazole 40 mg Tablet,Delayed Release (Dr/Ec) 40 mg PO BID Qty: 30 RF: 0 folic acid 1 mg Tablet 1 mg PO QAM Qty: 30 RF: 0 thiamine HCl (vitamin B1) [Vitamin B-1] 100 mg Tablet 100 mg PO QAM Qty: 30 RF: 0 baclofen 10 mg tablet 10 mg PO NOW RF: 0 trazodone 50 mg tablet 50 mg PO HS RF: 0 aripiprazole 5 mg tablet 5 mg PO DAILY RF: 0 Discharge Orders: Discharge Order (Routine); Ordered 10/09/21 Ordered By: Kamille Hansen Admission Data Admit Date/Time: 10/08/21 16:33 Attending Provider: Kamille Hnasen Admit Provider: Kamille Hansen Primary Care Provider: Harinder Nathan Other Providers: Demetrio Serna ; Rylee Aaron Other Interventions: Discharge Summary Assessment (RN) Last Done: 10/09/21 13:35
== END 2021-10-09 19:30 | disposition home or self-care (01) | DRG 439 ==
LOC: ED 13:09 → 3E 13:09 → SUATTDRO 16:14 → 3E 21:57

== ENCOUNTER 2021-11-18 10:36 | Observation (INO) ==
[2021-11-18] MEDS ORDERED: ONDANSETRON INJ 2 MG/ML 2 ML VIAL IV STA ×2 (11:01→13:03)
[2021-11-18] MEDS ORDERED: MoRPHine SULFATE 4 MG/ML 1 ML CARP\\VIAL IV STA ×2 (11:01→13:03)
--- NOTE | 2021-11-18 11:04 | Emergency Department Note ---
Impression & Plan Abdominal pain, Pancreatitis, Vomiting ED Provider Note NAME: JULIA WEBB AGE: 36 SEX: F : 1985 ARRIVES VIA: Walk-In INFORMANT: Patient ED PROVIDER(S): Pee Shankar DO CHIEF COMPLAINT: Abdominal pain HPI: Patient is a 36-year-old female with a past medical history alcohol abuse, bipolar disorder, diabetic, pancreatitis who presents the ER status post EGD performed by Chet Prakash yesterday with stent placed in the pancreas. Since then she has been vomiting and unable to keep anything down. She has belly pain which goes through to her back. Denies any dysuria urgency or frequency. No headache or change in vision. She admits this feels exact like her previous bouts of pancreatitis Herb. Pain is a 7 out of 10 constant sharp stabbing in nature. No other exacerbating or remitting factors. She is been unable to eat or drink. ROS: See above HPI for pertinent positives & negatives. A total of 10 systems re viewed and were otherwise negative. PAST MEDICAL HISTORY:See Below PAST SURGICAL HISTORY:See Below FAMILY HISTORY:See Below SOCIAL HISTORY:See Below HOME MEDICATIONS:See Below ALLERGIES:See Below VITALS:See Below PHYSICAL EXAMINATION: GENERAL: Sitting up in bed, alert, disheveled, chronically ill-appearing EYE EXAM: normal conjunctiva. PERRL and EOM's grossly intact. OROPHARYNX: no exudate, no erythema, lips, buccal mucosa, and tongue normal and mucous membranes are moist NECK: supple, no nuchal rigidity, no adenopathy, non-tender LUNGS: Clear to auscultation. Normal chest wall mechanics HEART: no murmurs, S1 normal and S2 normal ABDOMEN: abdomen soft, non-tender, normo-active bowel sounds, no masses, no rebound or guarding. UPPER EXTREMITIES: upper extremities are grossly normal. LOWER EXTREMITIES: No pitting edema. NEURO EXAM: Normal sensorium, cranial nerves II-XII grossly intact, normal speech, no gross weakness of arms, no gross weakness of legs. MEDICAL DECISION MAKING: Patient is a 36-year-old female who presents ER for above-stated complaint. IV was established blood work was obtained. Labs show mild leukocytosis 11.1 thousand. No significant anemia. BMP on LFTs bilirubin was unremarkable. Lipase significantly elevated at nearly 1800. UA was clean. Covid was negative. CT abdomen pelvis confirms pancreatitis. She is given IV fluids Zofran morphine and updated at bedside. Discussed with Malini from the hospitalist service for further evaluation and admission. Triage Nursing notes reviewed. Limited review of prior medical records performed Vital Signs: reviewed and remarkable for no significant abnormalities Differential diagnosis: Differential diagnoses includes but is not limited to gastritis, peptic ulcer disease, GERD, gallbladder disease, pancreatitis, small bowel obstruction, acute coronary syndrome, pericarditis, ischemic bowel, irritable bowel disease, irritable bowel syndrome, appendicitis, diverticulitis, malignancy, hernia, urinary tract infection, torsion, /ectopic (if female), perforation, trauma, infectious. ER treatment provided: See below Diagnostics interpreted by me: Cardiac Monitoring: An order was placed for continuous cardiac monitoring. The monitor shows a rate of 65 with sinus rhythm. Laboratory studies: As stated above and show below. Imaging studies: CT abdomen pelvis shows pancreatitis Consultation(s): As described above discussed with Malini for further evaluation Procedures: none Critical Care: None Past Med/Surg History Medical History Alcohol use disorder, moderate, dependence Anxiety H/O Asthma Cardiac murmur CONGENITAL -- BENIGN. 10/09/15 echo: The examination is adequate to evaluate the referral indication. The qualitative LV ejection fraction is 60-64% (normal). The left ventricular diastolic function is normal. No significant valvular disease is present. Depression H/O Diabetes ANGE (generalized anxiety disorder) GERD (gastroesophageal reflux disease) R/T Gestational diabetes History of pancreatitis HTN (hypertension) Post traumatic stress disorder (PTSD) Scoliosis MINOR Surgical History History of adenoidectomy History of section x 2 History of ERCP History of tonsillectomy Family History Other Adopted Social History (Updated 11/18/21 @ 13:54 by Erin Breaux PA-C) Smoking Status: Current every day smoker Tobacco Type: Cigarettes Cigarettes Per Day: 5-8; Second Hand Exposure: Yes; Hx Alcohol Use: Yes (reports last EtOH in Jul 2021) Alcohol type: wine Hx Substance Use: Yes Prescribed Medications: Marijuana Last Used Substance: Unknown Last Used Substance Other:: reports last used on 11/17/21 Preferred Language: German 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: 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 Beliefs That Will Affect Care: None Current Living Situation: Family Current Living Situation Comment: with kids Feels Safe at Home: Yes Assistive Devices: None Allergies Allergies Allergy/AdvReac Type Severity Reaction Status Date / Time bee venom protein (honey bee) Allergy Severe ANAPHYLAXIS Verified 11/18/21 11:34 Home Meds Home Medications Medication Instructions Recorded Confirmed aripiprazole 5 mg tablet 5 mg PO DAILY 10/06/21 11/18/21 baclofen 10 mg tablet 10 mg PO AMHS 10/06/21 11/18/21 trazodone 50 mg tablet 50 mg PO HS PRN 10/06/21 11/18/21 buspirone 5 mg tablet 5 mg PO BID PRN 11/18/21 11/18/21 cyclobenzaprine 5 mg tablet 5 mg PO BID PRN 11/18/21 11/18/21 epinephrine 0.3 mg/0.3 mL 0.3 mg IM UD PRN 11/18/21 11/18/21 injection, auto-injector fluticasone 250 mcg-salmeterol 50 1 inh INHALATION BID PRN 11/18/21 11/18/21 mcg/dose blistr powdr for inhalation hydroxyzine HCl 50 mg tablet 50 mg PO BID PRN 11/18/21 11/18/21 insulin lispro 100 unit/mL See Rx Instructions .ROUTE .COMPLEX 11/18/21 11/18/21 subcutaneous solution levocetirizine 5 mg tablet 5 mg PO HS 11/18/21 11/18/21 montelukast 10 mg tablet 10 mg PO HS 11/18/21 11/18/21 Previous Rx's Medication Instructions Recorded pantoprazole 40 mg tablet,delayed 40 mg PO BID #30 tab 08/16/21 release thiamine HCl (vitamin B1) 100 mg 100 mg PO QAM #30 tab 08/16/21 tablet (Vitamin B-1) celecoxib 100 mg capsule 100 mg PO BID PRN #30 cap 10/09/21 magnesium oxide 400 mg (241.3 mg 400 mg PO DAILY #30 tab 10/09/21 magnesium) tablet ondansetron 4 mg disintegrating 4 mg PO DAILY PRN #30 tab 10/09/21 tablet Results & Data (ED) Vital Signs Vital Signs - 24 hr 11/18/21 10:38 11/18/21 11:19 Temperature 36.8 C Temperature Source Temporal Artery Scan Pulse Rate 93 H Respiratory Rate 18 Respiratory Effort / Characteristics Non-Labored Respiratory Depth Normal Respiratory Pattern Regular Blood Pressure 111/79 Blood Pressure Mean 89 Pulse Oximetry 98 97 Oxygen Delivery Method Room Air Room Air Sepsis Recent Fever Within 48 Hours No Sepsis New/Unexplained Change in Mental Status No Sepsis Action Taken by Nursing No Action Required Laboratory Data Result diagrams: 11/18/21 11:00 11/18/21 11:00 Lab Results 11/18/21 11/18/21 11/18/21 Range/Units 11:00 11:00 11:23 WBC 11.18 H (4.8-10.8) K/uL RBC 4.11 L (4.2-5.4) M/uL Hgb 12.2 (12.0-16.0) g/dL Hct 34.7 L (37-47) % MCV 84.4 (80-100) fL MCH 29.7 (25-34) pg MCHC 35.2 (32-36) g/dL RDW Std Deviation 38.1 (36.4-46.3) fL RDW Coeff of Arnold 12.3 (11.5-14.5) % Plt Count 304 (130-400) K/uL MPV 9.6 (7.4-10.4) fL Immature Gran % (Auto) 0.2 % Neut % (Auto) 76.7 % Lymph % (Auto) 18.0 % [place] % (Auto) 4.2 % Eos % (Auto) 0.8 % Baso % (Auto) 0.1 % Neut # (Auto) 8.58 H (1.4-6.5) K/uL Lymph # (Auto) 2.01 (1.2-3.4) K/uL [place] # (Auto) 0.47 (0.11-0.59) K/uL Eos # (Auto) 0.09 (0-0.5) K/uL Baso # (Auto) 0.01 (0-0.2) K/uL Immature Gran # (Auto) 0.02 (0.00-0.02) K/uL Sodium 138 (136-145) mmol/L Potassium 3.5 (3.5-5.1) mmol/L Chloride 105 (98-107) mmol/L Carbon Dioxide 28 (21-32) mmol/L Anion Gap 5 (3-11) BUN 11 (6-23) mg/dl Creatinine 0.52 L (0.6-1.2) mg/dl Est Cr Clr Drug Dosing 113.9 ml/min Est GFR ( Amer) 143.5 ml/min Est GFR (Non-Af Amer) 123.8 ml/min BUN/Creatinine Ratio 21.2 H (10-20) Glucose 177 H (70-99(Fasting)) mg/dl Calcium 8.5 (8.5-10.1) mg/dl Total Bilirubin 0.2 (0.2-1.0) mg/dl AST 8 L (13-39) U/L ALT 7 (7-52) U/L Alkaline Phosphatase 29 L (34-104) U/L Total Protein 6.7 (6.0-8.3) gm/dl Albumin 3.7 (3.4-5.0) gm/dl Globulin 3.0 (2.5-4.0) gm/dl Albumin/Globulin Ratio 1.2 (0.9-2) Lipase 1765 H (11-82) U/L Urine Color Dark Yellow Urine Appearance Clear (Clear) Urine pH 7.5 (4.5-7.5) Ur Specific [place] 1.025 (1.000-1.030) Urine Protein 2+ H (Negative) Urine Glucose (UA) Trace H (Negative) Urine Ketones Trace H (Negative) Urine Blood Negative (Negative) Urine Nitrite Negative (Negative) Urine Bilirubin Negative (Negative) Urine Urobilinogen Negative (Negative) Ur Leukocyte Esterase Trace H (Negative) Urine WBC (Auto) 5-10 H (0-5) /hpf Urine RBC (Auto) 0-4 (0-4) /hpf U Hyaline Cast (Auto) 1-5 (0-5) /lpf U Epithel Cells (Auto) >30 H (0-5) /lpf Urine Bacteria (Auto) Negative (Negative) SARS-CoV-2, RNA, NAAT (NEGATIVE) 11/18/21 Range/Units 11:25 WBC (4.8-10.8) K/uL RBC (4.2-5.4) M/uL Hgb (12.0-16.0) g/dL Hct (37-47) % MCV (80-100) fL MCH (25-34) pg MCHC (32-36) g/dL RDW Std Deviation (36.4-46.3) fL RDW Coeff of Arnold (11.5-14.5) % Plt Count (130-400) K/uL MPV (7.4-10.4) fL Immature Gran % (Auto) % Neut % (Auto) % Lymph % (Auto) % [place] % (Auto) % Eos % (Auto) % Baso % (Auto) % Neut # (Auto) (1.4-6.5) K/uL Lymph # (Auto) (1.2-3.4) K/uL [place] # (Auto) (0.11-0.59) K/uL Eos # (Auto) (0-0.5) K/uL Baso # (Auto) (0-0.2) K/uL Immature Gran # (Auto) (0.00-0.02) K/uL Sodium (136-145) mmol/L Potassium (3.5-5.1) mmol/L Chloride (98-107) mmol/L Carbon Dioxide (21-32) mmol/L Anion Gap (3-11) BUN (6-23) mg/dl Creatinine (0.6-1.2) mg/dl Est Cr Clr Drug Dosing ml/min Est GFR ( Amer) ml/min Est GFR (Non-Af Amer) ml/min BUN/Creatinine Ratio (10-20) Glucose (70-99(Fasting)) mg/dl Calcium (8.5-10.1) mg/dl Total Bilirubin (0.2-1.0) mg/dl AST (13-39) U/L ALT (7-52) U/L Alkaline Phosphatase (34-104) U/L Total Protein (6.0-8.3) gm/dl Albumin (3.4-5.0) gm/dl Globulin (2.5-4.0) gm/dl Albumin/Globulin Ratio (0.9-2) Lipase (11-82) U/L Urine Color Urine Appearance (Clear) Urine pH (4.5-7.5) Ur Specific [place] (1.000-1.030) Urine Protein (Negative) Urine Glucose (UA) (Negative) Urine Ketones (Negative) Urine Blood (Negative) Urine Nitrite (Negative) Urine Bilirubin (Negative) Urine Urobilinogen (Negative) Ur Leukocyte Esterase (Negative) Urine WBC (Auto) (0-5) /hpf Urine RBC (Auto) (0-4) /hpf U Hyaline Cast (Auto) (0-5) /lpf U Epithel Cells (Auto) (0-5) /lpf Urine Bacteria (Auto) (Negative) SARS-CoV-2, RNA, NAAT NEGATIVE (NEGATIVE) Administered Medications Discontinued Medications Ioversol (Optiray 320 100ml) 96 ml IV ONCE ONE Stop: 11/18/21 12:54 Last Admin: 11/18/21 12:53 Dose: 96 ml Documented by: [id number] Morphine Sulfate (Morphine Sulfate 4 Mg/Ml 1 Ml Carp\Vial) 4 mg IV NOW STA Stop: 11/18/21 11:02 Last Admin: 11/18/21 11:30 Dose: 4 mg Documented by: [id number] Morphine Sulfate (Morphine Sulfate 4 Mg/Ml 1 Ml Carp\Vial) 4 mg IV NOW STA Stop: 11/18/21 13:04 Last Admin: 11/18/21 13:19 Dose: 4 mg Documented by: [id number] Ondansetron HCl (Ondansetron Inj 2 Mg/Ml 2 Ml Vial) 4 mg IV NOW STA Stop: 11/18/21 11:02 Last Admin: 11/18/21 11:30 Dose: 4 mg Documented by: [id number] Ondansetron HCl (Ondansetron Inj 2 Mg/Ml 2 Ml Vial) 4 mg IV NOW STA Stop: 11/18/21 13:04 Last Admin: 11/18/21 13:19 Dose: 4 mg Documented by: [id number] Imaging Data Radiologist's Impression: Abdomen/Pelvis CT 11/18/21 11:01 CT abd pelvis IV con only CLINICAL HISTORY: abd pain TECHNIQUE: Helical axial images of the abdomen and pelvis were obtained and displayed. Automated dose lowering techniques and/or adjustment according to patient size were utilized for this exam. This exam was performed with intravenous contrast. COMPARISON: Comparison is made to CT abdomen pelvis 10/06/2021 FINDINGS: Lower chest: Bibasilar atelectasis versus scarring is seen. Liver: Unremarkable. No focal lesions are seen. Gallbladder and biliary tree: No calcified gallstones. Normal caliber wall. No intra- or extrahepatic biliary ductal dilation. Pancreas: A pancreatic stent is seen. Peripancreatic stranding is noted and ther e is suggestion of peripancreatic edema. Spleen: Unremarkable. Adrenals: Unremarkable. Kidneys and ureters: Unremarkable. Bladder: Limited evaluation due to underdistention. Bladder wall thickening is seen. Reproductive organs: Calcifications are seen in the uterus. Bowel: Diverticulosis is seen without evidence of diverticulitis. The appendix is unremarkable. Lymph nodes Retroperitoneal: Unremarkable. Mesenteric: Unremarkable. Pelvic: Unremarkable. Peritoneum: Peripancreatic free fluid is seen. There is fat stranding. Vessels: Unremarkable. Abdominal wall: A fat-containing umbilical hernia is seen. Bones: Unremarkable. IMPRESSION: Peripancreatic stranding is seen and there is suggestion of pancreatic edema and surrounding fat stranding compatible with acute pancreatitis. No peripancreatic fluid collections are seen. ACT 112: Negative or not required by law. Electronically signed by: Fausto Garcia M.D. 11/18/2021 1:13 PM Discharge Plan Visit Data Chief Complaint: Vomiting Stated Complaint: STOMACH & BACK PAIN, VOMITING, PROCDURE ON 11/17 ED Provider: Pee Shankar Discharge Problem: Abdominal pain, Pancreatitis, Vomiting Forms Stand Alone Forms: My [facility] Prescriptions Prescriptions: No Action epinephrine 0.3 mg/0.3 mL auto-injector 0.3 mg IM UD PRN (Reason: Allergic Reaction) RF: 0 buspirone 5 mg tablet 5 mg PO BID PRN (Reason: Anxiety) RF: 0 fluticasone propion-salmeterol 250-50 mcg/dose blister with device 1 inh INHALATION BID PRN (Reason: Shortness Of Breath) RF: 0 hydroxyzine HCl 50 mg tablet 50 mg PO BID PRN (Reason: Anxiety) RF: 0 montelukast 10 mg tablet 10 mg PO HS RF: 0 insulin lispro 100 unit/mL solution See Rx Instructions .ROUTE .COMPLEX RF: 0 cyclobenzaprine 5 mg tablet 5 mg PO BID PRN (Reason: Muscle Spasm) RF: 0 levocetirizine 5 mg tablet 5 mg PO HS RF: 0 pantoprazole 40 mg Tablet,Delayed Release (Dr/Ec) 40 mg PO BID Qty: 30 RF: 0 thiamine HCl (vitamin B1) [Vitamin B-1] 100 mg Tablet 100 mg PO QAM Qty: 30 RF: 0 baclofen 10 mg tablet 10 mg PO AMHS RF: 0 trazodone 50 mg tablet 50 mg PO HS PRN (Reason: Insomnia) RF: 0 aripiprazole 5 mg tablet 5 mg PO DAILY RF: 0 magnesium oxide 400 mg (241.3 mg magnesium) tablet 400 mg PO DAILY Qty: 30 RF: 0 celecoxib 100 mg capsule 100 mg PO BID PRN (Reason: pain) Qty: 30 RF: 0 ondansetron 4 mg tablet,disintegrating 4 mg PO DAILY PRN (Reason: nausea and vomiting) Qty: 30 RF: 0 Referrals Referrals: Harinder Nathan DO [Primary Care Provider] - Discharge Problem: Abdominal pain Qualifiers: Abdominal location: unspecified location Qualified Code(s): R10.9 - Unspecified abdominal pain Pancreatitis Qualifiers: Chronicity: acute Pancreatitis type: unspecified pancreatitis type Acute pancreatitis complication: unspecified Qualified Code(s): K85.90 - Acute pancreatitis without necrosis or infection, unspecified Vomiting Qualifiers: Vomiting type: unspecified Nausea presence: unspecified Qualified Code(s): R11.10 - Vomiting, unspecified
[2021-11-18 11:11] LABS: Basophils # (auto) 0.01 K/uL (0-0.2); Basophils % (auto) 0.1 %; Eosinophils # (auto) 0.09 K/uL (0-0.5); Eosinophils % (auto) 0.8 %; Hematocrit (blood only) 34.7 % (37-47); Hemoglobin 12.2 g/dL (12.0-16.0); Immature Granulocytes # (auto) 0.02 K/uL (0.00-0.02); Immature Granulocytes % (auto) 0.2 %; Lymphocytes # (auto) 2.01 K/uL (1.2-3.4); Mean Corpuscular Hemoglobin 29.7 pg (25-34); Mean Corpuscular Hgb Conc 35.2 g/dL (32-36); Mean Corpuscular Volume 84.4 fL (80-100); Mean Platelet Volume 9.6 fL (7.4-10.4); Monocytes # (auto) 0.47 K/uL (0.11-0.59); Monocytes % (auto) 4.2 %; Neutrophils # (auto) 8.58 K/uL (1.4-6.5); Neutrophils % (auto) 76.7 %; Platelet Count 304 K/uL (130-400); RDW Coefficient of Variation 12.3 % (11.5-14.5); RDW Standard Deviation 38.1 fL (36.4-46.3); Red Blood Count 4.11 M/uL (4.2-5.4); White Blood Count 11.18 K/uL (4.8-10.8)
[2021-11-18 11:43] LABS: BUN Creatinine Ratio 21.2 (10-20); Calcium 8.5 mg/dl (8.5-10.1); Creatinine Clr Calc Pharmacy 113.9 ml/min; Est GFR (African American) 143.5 ml/min; Est GFR (Non-African American) 123.8 ml/min; Potassium 3.5 mmol/L (3.5-5.1)
[2021-11-18 11:44] LABS: Appearance Urine Clear (Clear); Bacteria Urine Automated Negative (Negative); Bilirubin Urine Negative (Negative); Blood Urine Negative (Negative); Color Urine Dark Yellow; Epithelial Cell Urine Auto >30 /lpf (0-5); Glucose Urine UA Trace (Negative); Ketones Urine Trace (Negative); Leukocyte Esterase Urine Trace (Negative); Nitrite Urine Negative (Negative); RBC Urine Automated 0-4 /hpf (0-4); Specific Gravity Urine 1.025 (1.000-1.030); Urobilinogen Urine Negative (Negative); pH Urine 7.5 (4.5-7.5)
[2021-11-18 11:59] LABS: Albumin Globulin Ratio 1.2 (0.9-2); Albumin Level 3.7 gm/dl (3.4-5.0); Bilirubin,Total 0.2 mg/dl (0.2-1.0); Total Protein 6.7 gm/dl (6.0-8.3)
[2021-11-18 12:01] LABS: Protein Urine 2+ (Negative)
[2021-11-18] MEDS ORDERED: OPTIRAY 320 100ml IV ONE (12:53)
--- NOTE | 2021-11-18 12:56 | History & Physical Report ---
Date of Service November 18, 2021 Assessment & Plan (1) Acute recurrent pancreatitis: Plan: Spoke with GI who will evaluate the patient - appreciate their recommendations - Admit for observation - Aggressive IVF hydration - Pain control and anti-emetics - NPO until symptoms improving - Daily labs with electrolyte repletion PRN (2) Marijuana dependence: (3) Insulin dependent diabetes mellitus: (4) GERD (gastroesophageal reflux disease): (5) Major depressive disorder: Plan: Continue other home medications as appropriate Pt seen and reviewed with collaborating physician, Dr. Dominguez. Plan of care discussed and as outlined above. Code Status: Full code DVT Prophylaxis: Debbie Breaux PA-C History of Present Illness Chief Complaint: vomiting Primary Care Provider: Harinder Nathan, This is a 36 y/o female with a PMH of pancreatitis with pseudocyst formation, DM2, HTN, vit D deficiency, depression, anxiety, ADHD, alcoholism but abstinent since Jul 2021, and tobacco abuse who presents to the ED with abdominal pain and vomiting that started after she underwent an ERCP yesterday. Pt has a history of recurrent pancreatitis, initially due to alcohol abuse. However, in Jul 2021, she reports stopping alcohol completely after she was admitted for EtOH- pancreatitis. Readmitted in Sep due to recurrent symptoms and found to have a pseudocyst. She reports that she had been doing well overall up until the procedure yesterday. She is watching her diet closely and avoiding alcohol. After the procedure, she has some milder abdominal discomfort. Woke up at 12:30 am with worsening pain and multiple episodes of vomiting. Unable to keep oral intake down so called outpatient GI provider who referred her to the ED for evaluation. She reports all of her symptoms are the same as prior episodes of pancreatitis. Does c/o chills last night but no documented fevers. Reports ECHEVARRIA, dizziness, mild SOB, ongoing issues with constipation. Denies dark urine, hematuria. ERCP 11/17/21 (Dr. Nielsen) - pancreatic papillary stenosis treated w/ sphincterotomy and balloon dilation sphincteroplasty, pancreatic stones found w/ complete removal accomplished; one plastic pancreatic stent placed into vental PD Allergies Allergy/AdvReac Type Severity Reaction Status Date / Time bee venom protein (honey bee) Allergy Severe ANAPHYLAXIS Verified 11/18/21 11:34 Home Medications Medication Instructions Recorded Confirmed Type pantoprazole 40 mg tablet,delayed 40 mg PO BID #30 tab 08/16/21 11/18/21 Rx release thiamine HCl (vitamin B1) 100 mg 100 mg PO QAM #30 tab 08/16/21 11/18/21 Rx tablet (Vitamin B-1) aripiprazole 5 mg tablet 5 mg PO DAILY 10/06/21 11/18/21 History baclofen 10 mg tablet 10 mg PO AMHS 10/06/21 11/18/21 History trazodone 50 mg tablet 50 mg PO HS PRN 10/06/21 11/18/21 History celecoxib 100 mg capsule 100 mg PO BID PRN #30 cap 10/09/21 11/18/21 Rx magnesium oxide 400 mg (241.3 mg 400 mg PO DAILY #30 tab 10/09/21 11/18/21 Rx magnesium) tablet ondansetron 4 mg disintegrating 4 mg PO DAILY PRN #30 tab 10/09/21 11/18/21 Rx tablet buspirone 5 mg tablet 5 mg PO BID PRN 11/18/21 11/18/21 History cyclobenzaprine 5 mg tablet 5 mg PO BID PRN 11/18/21 11/18/21 History epinephrine 0.3 mg/0.3 mL 0.3 mg IM UD PRN 11/18/21 11/18/21 History injection, auto-injector fluticasone 250 mcg-salmeterol 50 1 inh INHALATION BID PRN 11/18/21 11/18/21 History mcg/dose blistr powdr for inhalation hydroxyzine HCl 50 mg tablet 50 mg PO BID PRN 11/18/21 11/18/21 History insulin lispro 100 unit/mL See Rx Instructions .ROUTE .COMPLEX 11/18/21 11/18/21 History subcutaneous solution levocetirizine 5 mg tablet 5 mg PO HS 11/18/21 11/18/21 History montelukast 10 mg tablet 10 mg PO HS 11/18/21 11/18/21 History Past Med/Surg History Medical History Alcohol use disorder, moderate, dependence Anxiety H/O Asthma Cardiac murmur CONGENITAL -- BENIGN. 10/09/15 echo: The examination is adequate to evaluate the referral indication. The qualitative LV ejection fraction is 60-64% (normal). The left ventricular diastolic function is normal. No significant valvular disease is present. Depression H/O Diabetes ANGE (generalized anxiety disorder) GERD (gastroesophageal reflux disease) R/T Gestational diabetes History of pancreatitis HTN (hypertension) Post traumatic stress disorder (PTSD) Scoliosis MINOR Surgical History History of adenoidectomy History of section x 2 History of ERCP History of tonsillectomy Family History Other Adopted Social History (Updated 11/18/21 @ 13:54 by Erin Breaux PA-C) Smoking Status: Current every day smoker Tobacco Type: Cigarettes Cigarettes Per Day: 5-8; Second Hand Exposure: Yes; Hx Alcohol Use: Yes (reports last EtOH in Jul 2021) Alcohol type: wine Hx Substance Use: Yes Prescribed Medications: Marijuana Last Used Substance: Unknown Last Used Substance Other:: reports last used on 11/17/21 Preferred Language: Bahraini 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: Effective Chief Information Security Officer Required: No Beliefs That Will Affect Care: None Current Living Situation: Family Current Living Situation Comment: with kids Feels Safe at Home: Yes Assistive Devices: None Review of Systems Review of Systems: All systems reviewed & are unremarkable except as noted in HPI & below Constitutional: + chills, + fatigue and + anorexia; no fever Ear, Nose, Mouth, Throat: no nasal congestion and no nasal discharge Respiratory: + dyspnea; no cough Cardiovascular: + chest pain (radiates from abdomen) and + lightheadedness; no syncope and no edema Gastrointestinal: as per Subjective / HPI and + constipation; no diarrhea/loose stools and no blood in stools Genitourinary: no dysuria and no hematuria Musculoskeletal: + myalgia Integumentary: no yellowing of the skin Neurologic: + dizziness and + headache(s) Physical Exam Constitutional: well developed and well nourished; no acute distress Eyes: + anicteric sclerae ENMT: external ear and nose normal, oropharynx normal Neck: trachea midline Respiratory: no respiratory distress and no labored breathing Auscultation: lungs clear to auscultation bilaterally; no rales, no rhonchi and no wheezes Cardiovascular: Rate/Rhythm: regular rate and regular rhythm Vessels: dorsalis pedis pulses present and radial pulses present Extremities: no pedal edema Gastrointestinal (Abdomen): Inspection/Auscultation: normal bowel sounds; abdomen not distended Percussion/Palpation: + abdomen tender (diffuse but worse in epigastric area) and abdomen soft Musculoskeletal: Head/Neck/Chest: normocephalic, head atraumatic and neck supple Skin: no rashes and no jaundice Neurologic: moves all extremities; no focal motor deficits and not confused Psychiatric: A+Ox3, euthymic affect Results & Data Results & Data ([facility]) Vital Signs (Past 12 Hours) Vital Signs Temp Pulse Resp BP Pulse Ox 11/18/21 11:19 97 11/18/21 10:38 36.8 C 93 H 18 111/79 98 Laboratory Results Laboratory Results - last 24 hr 11/18/21 11/18/21 11/18/21 11:00 11:00 11:23 WBC 11.18 H RBC 4.11 L Hgb 12.2 Hct 34.7 L MCV 84.4 MCH 29.7 MCHC 35.2 RDW Std Deviation 38.1 RDW Coeff of Arnold 12.3 Plt Count 304 MPV 9.6 Immature Gran % (Auto) 0.2 Neut % (Auto) 76.7 Lymph % (Auto) 18.0 [place] % (Auto) 4.2 Eos % (Auto) 0.8 Baso % (Auto) 0.1 Neut # (Auto) 8.58 H Lymph # (Auto) 2.01 [place] # (Auto) 0.47 Eos # (Auto) 0.09 Baso # (Auto) 0.01 Immature Gran # (Auto) 0.02 Sodium 138 Potassium 3.5 Chloride 105 Carbon Dioxide 28 Anion Gap 5 BUN 11 Creatinine 0.52 L Est Cr Clr Drug Dosing 113.9 Est GFR ( Amer) 143.5 Est GFR (Non-Af Amer) 123.8 BUN/Creatinine Ratio 21.2 H Glucose 177 H Calcium 8.5 Total Bilirubin 0.2 AST 8 L ALT 7 Alkaline Phosphatase 29 L Total Protein 6.7 Albumin 3.7 Globulin 3.0 Albumin/Globulin Ratio 1.2 Lipase 1765 H Urine Color Dark Yellow Urine Appearance Clear Urine pH 7.5 Ur Specific [place] 1.025 Urine Protein 2+ H Urine Glucose (UA) Trace H Urine Ketones Trace H Urine Blood Negative Urine Nitrite Negative Urine Bilirubin Negative Urine Urobilinogen Negative Ur Leukocyte Esterase Trace H Urine WBC (Auto) 5-10 H Urine RBC (Auto) 0-4 U Hyaline Cast (Auto) 1-5 U Epithel Cells (Auto) >30 H Urine Bacteria (Auto) Negative SARS-CoV-2, RNA, NAAT 11/18/21 11:25 WBC RBC Hgb Hct MCV MCH MCHC RDW Std Deviation RDW Coeff of [place] Plt Count MPV Immature Gran % (Auto) Neut % (Auto) Lymph % (Auto) [place] % (Auto) Eos % (Auto) Baso % (Auto) Neut # (Auto) Lymph # (Auto) [place] # (Auto) Eos # (Auto) Baso # (Auto) Immature Gran # (Auto) Sodium Potassium Chloride Carbon Dioxide Anion Gap BUN Creatinine Est Cr Clr Drug Dosing Est GFR ( Amer) Est GFR (Non-Af Amer) BUN/Creatinine Ratio Glucose Calcium Total Bilirubin AST ALT Alkaline Phosphatase Total Protein Albumin Globulin Albumin/Globulin Ratio Lipase Urine Color Urine Appearance Urine pH Ur Specific [place] Urine Protein Urine Glucose (UA) Urine Ketones Urine Blood Urine Nitrite Urine Bilirubin Urine Urobilinogen Ur Leukocyte Esterase Urine WBC (Auto) Urine RBC (Auto) U Hyaline Cast (Auto) U Epithel Cells (Auto) Urine Bacteria (Auto) SARS-CoV-2, RNA, NAAT NEGATIVE Supervising Physician Co-Signing Physician Notes I saw and examined the patient at bedside. I reviewed the chart and discussed the case with Erin DUKE. In summary, this is a 36-year-old female with history of pancreatitis, pseudocyst and pancreatic duct stones status post ERCP with stone removal and pancreatic duct stent placement yesterday by Dr. Nielsen presented to ED today with epigastric pain with vomiting. She was found to have recurrent pancreatitis. Vitals stable. During my encounter, patient was sleeping but easily arousable. States pain 9.5 out of 10 and requesting for better pain control. Awake, alert oriented x3. Chest clear, heart sounds normal, abdomen with generalized tenderness more in epigastrium, normal bowel sounds. No edema. She was seen by GI. She will be admitted for further management. Conservative management for now. N.p.o., IVF, antiemetics and analgesics as needed. Rest per the note above.
--- NOTE | 2021-11-18 13:14 | CT Scan Report ---
CT abd pelvis IV con only CLINICAL HISTORY: abd pain TECHNIQUE: Helical axial images of the abdomen and pelvis were obtained and displayed. Automated dose lowering techniques and/or adjustment according to patient size were utilized for this exam. This e xam was performed with intravenous contrast. COMPARISON: Comparison is made to CT abdomen pelvis 10/06/2021 FINDINGS: Lower chest: Bibasilar atelectasis versus scarring is seen. Liver: Unremarkable. No focal lesions are seen. Gallbladder and biliary tree: No calcified gallstones. Normal caliber wall. No intra- or extrahepatic biliary ductal dilation. Pancreas: A pancreatic stent is seen. Peripancreatic stranding is noted and there is suggestion of pe ripancreatic edema. Spleen: Unremarkable. Adrenals: Unremarkable. Kidneys and ureters: Unremarkable. Bladder: Limited evaluation due to underdistention. Bladder wall thickening is seen. Reproductive organs: Calcifications are seen in the uterus. Bowel: Diverticulosis is seen without evidence of diverticulitis. The appendix is unremarkable. Lymph nodes Retroperitoneal: Unremarkable. Mesenteric: Unremarkable. Pelvic: Unremarkable. Peritoneum: Peripancreatic free fluid is seen. There is fat stranding. Vessels: Unremarkable. Abdominal wall: A fat-containing umbilical hernia is seen. Bones: Unremarkable. IMPRESSION: Peripancreatic stranding is seen and there is suggestion of pancreatic edema and surrounding fat stra nding compatible with acute pancreatitis. No peripancreatic fluid collections are seen. ACT 112: Negative or not required by law. Electronically signed by: Fausto Garcia M.D. 11/18/2021 1:13 PM
--- NOTE | 2021-11-18 13:50 | Gastrointestinal Consultation ---
Date of Consultation November 18, 2021 Assessment & Plan (1) Pancreatitis: (2) Marijuana dependence: Pt is a 36 yo female who presented with n/v, abd pain symptoms; labs and CT indicative of pancreatitis. She just had ERCP done yesterday w pancreatic duct stone removal + stent placement. - Keep NPO - IVF support w LR @200ml/hr - Symptomatic management with antiemetics and analgesics prn - Will follow for now Supervising Physician Co-Signing Physician Notes I have personally seen and examined the patient with BROOKE Robert. Her note reflects my exam and findings. I agree with her impression and plan. Aggre ssive IV fluid replacement. Follow electrolytes. NPO. Ramone Aiken M.D. History of Present Illness Reason for Consultation: Abdominal pain Requesting Physician: Dr. Pee Shankar Attending Physician: Dr. Ramone Aiken History of Present Illness Pt is a 36 yo female who presented to ED today w c/o upper abd pain radiating to her back. She has hx of pancreatitis, pseudocyst and pancreatic duct stones, s/p ERCP w stones removal, pancreatic duct stent placement yesterday by Dr. Nielsen. She did well after her procedure but about 2 hours later started to have upper abd pain. Was able to eat chicken noodle soup, throughout the day. Then a bit past midnight, she woke up with n/v, and severe abd pain radiating to her back. On eval, she is afebrile, has mild leukocytosis, and labs showed normal LFTs but lipase was 1765. CT abd/pelvis w contrast showed peripancreatic edema with pancreatic duct stent in place. Pt smokes marijuana and tobacco, denies ETOH use since Jul 2021. Allergies Allergy/AdvReac Type Severity Reaction Status Date / Time bee venom protein (honey bee) Allergy Severe ANAPHYLAXIS Verified 11/18/21 11:34 Home Medications Medication Instructions Recorded Confirmed Type pantoprazole 40 mg tablet,delayed 40 mg PO BID #30 tab 08/16/21 11/18/21 Rx release thiamine HCl (vitamin B1) 100 mg 100 mg PO QAM #30 tab 08/16/21 11/18/21 Rx tablet (Vitamin B-1) aripiprazole 5 mg tablet 5 mg PO DAILY 10/06/21 11/18/21 History baclofen 10 mg tablet 10 mg PO AMHS 10/06/21 11/18/21 History trazodone 50 mg tablet 50 mg PO HS PRN 10/06/21 11/18/21 History celecoxib 100 mg capsule 100 mg PO BID PRN #30 cap 10/09/21 11/18/21 Rx magnesium oxide 400 mg (241.3 mg 400 mg PO DAILY #30 tab 10/09/21 11/18/21 Rx magnesium) tablet ondansetron 4 mg disintegrating 4 mg PO DAILY PRN #30 tab 10/09/21 11/18/21 Rx tablet buspirone 5 mg tablet 5 mg PO BID PRN 11/18/21 11/18/21 History cyclobenzaprine 5 mg tablet 5 mg PO BID PRN 11/18/21 11/18/21 History epinephrine 0.3 mg/0.3 mL 0.3 mg IM UD PRN 11/18/21 11/18/21 History injection, auto-injector fluticasone 250 mcg-salmeterol 50 1 inh INHALATION BID PRN 11/18/21 11/18/21 History mcg/dose blistr powdr for inhalation hydroxyzine HCl 50 mg tablet 50 mg PO BID PRN 11/18/21 11/18/21 History insulin lispro 100 unit/mL See Rx Instructions .ROUTE .COMPLEX 11/18/21 11/18/21 History subcutaneous solution levocetirizine 5 mg tablet 5 mg PO HS 11/18/21 11/18/21 History montelukast 10 mg tablet 10 mg PO HS 11/18/21 11/18/21 History Patient History Medical History Alcohol use disorder, moderate, dependence Anxiety H/O Asthma Cardiac murmur CONGENITAL -- BENIGN. 10/09/15 echo: The examination is adequate to evaluate the referral indication. The qualitative LV ejection fraction is 60-64% (normal). The left ventricular diastolic function is normal. No significant valvular disease is present. Depression H/O Diabetes ANGE (generalized anxiety disorder) GERD (gastroesophageal reflux disease) R/T Gestational diabetes History of pancreatitis HTN (hypertension) Post traumatic stress disorder (PTSD) Scoliosis MINOR Surgical History History of adenoidectomy History of section x 2 History of ERCP History of tonsillectomy Family History Other Adopted Social History (Updated 11/18/21 @ 13:54 by Erin rBeaux PA-C) Smoking Status: Light tobacco smoker Tobacco Type: Cigarettes Cigarettes Per Day: 5-8; Second Hand Exposure: Yes; Hx Alcohol Use: No Hx Substance Use: Yes Prescribed Medications: Marijuana Last Used Substance: Just Prior to Arrival Last Used Substance Other:: reports last used on 11/17/21 Preferred Language: Albanian 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: Effective Anodizer Required: No Beliefs That Will Affect Care: None Current Living Situation: Family Current Living Situation Comment: with kids Feels Safe at Home: Yes Safety Concerns: Feels Safe At This Time Assistive Devices: None Review of Systems Review of Systems: All systems reviewed & are unremarkable except as noted in HPI & below Physical Exam Constitutional: WD/WN, vitals as above well groomed, cooperative and comfortable Eyes: PERRL, conjunctivae normal, anicteric sclerae ENMT: external ear and nose normal, oropharynx normal Respiratory: normal respiratory effort, lungs clear to auscultation Cardiovascular: RRR, no murmur, no edema Gastrointestinal (Abdomen): TTP epigastric, RUQ areas. Soft, hypoactive bowel sounds Skin: no rashes, warm and dry no jaundice Psychiatric: A+Ox3, euthymic affect Lymphatic: no lymphedema Results & Data ([facility]) Vital Signs (Past 12 Hours) Vital Signs Temp Pulse Resp BP Pulse Ox 11/18/21 11:19 97 11/18/21 10:38 36.8 C 93 H 18 111/79 98 (1) Pancreatitis Acute pancreatitis complication: unspecified Chronicity: acute Pancreatitis type: unspecified pancreatitis type Qualified Code(s): K85.90 - Acute pancreatitis without necrosis or infection, unspecified
[2021-11-18] MEDS ORDERED: LACTATED RINGER'S 2,000 ML IV ONE (14:03)
[2021-11-18] MEDS ORDERED: GLUCAGON FOR INJ 1 MG VIAL SQ PRN (16:04)
[2021-11-18] MEDS ORDERED: traZODone HCL 50 MG TAB PO PRN (16:04)
[2021-11-18] MEDS ORDERED: DEXTROSE 50% 50 ML SYRINGE IV PRN (16:04)
[2021-11-18] MEDS ORDERED: CARBOHYDRATES FOR HYPOGLYCEMIA PO PRN (16:04)
[2021-11-18] MEDS ORDERED: GLUCOSE 10 TABS/TUBE PO PRN (16:04)
[2021-11-18] MEDS ORDERED: GLUCOSE 40% GEL 15 GM TUBE PO PRN (16:04)
[2021-11-18] MEDS: LACTATED RINGER'S 1,000 ML IV SCH ×2 (16:21→21:57)
[2021-11-18] MEDS: ONDANSETRON INJ 2 MG/ML 2 ML VIAL IV PRN (16:21)
[2021-11-18] MEDS ORDERED: HYDROmorphone INJ 0.5 MG/0.5 ML SYR IV PRN (16:23)
[2021-11-18] MEDS: INSULIN ASPART PER UNIT SC SCH ×2 (17:35→21:30)
[2021-11-18] MEDS ORDERED: Nursing to Pharmacy Communication SCH (17:45)
[2021-11-18] MEDS ORDERED: METOCLOPRAMIDE HCL INJ 5 MG/ML 2 ML VIAL IV STA (21:06)
[2021-11-18] MEDS: PANTOprazole 40 MG TAB PO SCH (21:20)
[2021-11-19] MEDS: HYDROmorphone INJ 1 MG/ML SYRINGE IV PRN ×6 (00:28→16:57)
[2021-11-19] MEDS: ONDANSETRON INJ 2 MG/ML 2 ML VIAL IV PRN ×2 (00:33→08:02)
[2021-11-19] MEDS: LACTATED RINGER'S 1,000 ML IV SCH ×5 (03:29→22:32)
[2021-11-19 05:39] LABS: Basophils # (auto) 0.01 K/uL (0-0.2); Basophils % (auto) 0.1 %; Eosinophils % (auto) 1.3 %; Hematocrit (blood only) 32.6 % (37-47); Immature Granulocytes # (auto) 0.01 K/uL (0.00-0.02); Immature Granulocytes % (auto) 0.1 %; Lymphocytes # (auto) 2.35 K/uL (1.2-3.4); Lymphocytes % (auto) 31.6 %; Mean Corpuscular Hemoglobin 29.2 pg (25-34); Mean Corpuscular Hgb Conc 33.7 g/dL (32-36); Mean Corpuscular Volume 86.5 fL (80-100); Mean Platelet Volume 9.8 fL (7.4-10.4); Monocytes # (auto) 0.38 K/uL (0.11-0.59); Monocytes % (auto) 5.1 %; Neutrophils # (auto) 4.59 K/uL (1.4-6.5); Neutrophils % (auto) 61.8 %; Platelet Count 266 K/uL (130-400); RDW Coefficient of Variation 12.5 % (11.5-14.5); RDW Standard Deviation 39.9 fL (36.4-46.3); Red Blood Count 3.77 M/uL (4.2-5.4); White Blood Count 7.44 K/uL (4.8-10.8)
[2021-11-19 06:10] LABS: Anion Gap 5 (3-11); BUN Creatinine Ratio 20.9 (10-20); Blood Urea Nitrogen 9 mg/dl (6-23); Calcium 8.2 mg/dl (8.5-10.1); Carbon Dioxide 26 mmol/L (21-32); Chloride 107 mmol/L (98-107); Creatinine Clr Calc Pharmacy 137.8 ml/min; Est GFR (African American) > 150.0 ml/min; Est GFR (Non-African American) 131.8 ml/min; Glucose 136 mg/dl (70-99(Fasting)); Potassium 3.7 mmol/L (3.5-5.1); Sodium 138 mmol/L (136-145)
[2021-11-19 06:48] LABS: Lipase 909 U/L (11-82)
[2021-11-19 07:00] LABS: Magnesium 1.4 mg/dl (1.7-2.4)
[2021-11-19] MEDS ORDERED: MAGNESIUM SULFATE / D5W 1 GM/100 ML BAG IV STA (08:28)
[2021-11-19] MEDS ORDERED: HYDROmorphone INJ 0.5 MG/0.5 ML SYR IV PRN (08:32)
[2021-11-19] MEDS: INSULIN ASPART PER UNIT SC SCH ×5 (08:34→21:23)
--- NOTE | 2021-11-19 09:18 | Hospitalist Progress Note ---
Date of Service November 19, 2021 Assessment & Plan (1) Acute recurrent pancreatitis: Plan: In setting of recent ERCP with stent placement -Current NPO, would allow sips/chips. Advance diet slowly -Lipase improving -continue NSS at 200 cc/hr, pain control -zofran scheduled Q 6 hours, add phenergan PRN (2) Marijuana dependence: (3) Insulin dependent diabetes mellitus: (4) GERD (gastroesophageal reflux disease): (5) Major depressive disorder: (6) Hypomagnesemia: Plan: repleted Plan: DVT ppx -SQ lovenox Admission and Anticipated Discharge Date Admission Date: November 18, 2021 Subjective Reports nausea, relieved with zofran but recurrence before 6 hours Reports pain is controlled with dilaudid Afraid to advance diet Physical Exam Physical Exam: Non toxic, pleasant and comfortable ENMT: mucous membrane moist Respiratory: breathing comfortable, no wheezing/rhonchi/rales Cardiovascular: regular rate and rhythm, no murmurs/rubs/gallops Gastrointestinal (Abdomen): soft, +epigastric tenderness Musculoskeletal: No edema Results & Data Results & Data ([facility]) Vital Signs (Past 12 Hours) Vital Signs Temp Pulse Pulse Pulse Resp BP Pulse Ox 11/19/21 07:24 61 11/19/21 06:33 36.8 C 68 20 116/77 96 11/19/21 05:20 64 11/19/21 03:04 37.0 C 68 18 102/62 97 11/18/21 23:19 36.9 C 77 20 99/63 L 94 Laboratory Results Short CBC 11/18/21 11/19/21 Range/Units 11:00 05:19 WBC 11.18 H 7.44 (4.8-10.8) K/uL Hgb 12.2 11.0 L (12.0-16.0) g/dL Hct 34.7 L 32.6 L (37-47) % Plt Count 304 266 (130-400) K/uL BMP 11/18/21 11/19/21 11:00 05:19 Sodium 138 138 Potassium 3.5 3.7 Chloride 105 107 Carbon Dioxide 28 26 BUN 11 9 Creatinine 0.52 L 0.43 L Glucose 177 H 136 H Calcium 8.5 8.2 L Liver Function 11/18/21 Range/Units 11:00 Total Bilirubin 0.2 (0.2-1.0) mg/dl AST 8 L (13-39) U/L ALT 7 (7-52) U/L Alkaline Phosphatase 29 L (34-104) U/L Albumin 3.7 (3.4-5.0) gm/dl Urine 11/18/21 Range/Units 11:23 Urine Color Dark Yellow Urine Appearance Clear (Clear) Urine pH 7.5 (4.5-7.5) Ur Specific [place] 1.025 (1.000-1.030) Urine Protein 2+ H (Negative) Urine Glucose (UA) Trace H (Negative) Medications Administered Short CBC 11/18/21 11/19/21 Range/Units 11:00 05:19 WBC 11.18 H 7.44 (4.8-10.8) K/uL Hgb 12.2 11.0 L (12.0-16.0) g/dL Hct 34.7 L 32.6 L (37-47) % Plt Count 304 266 (130-400) K/uL BMP 11/18/21 11/19/21 11:00 05:19 Sodium 138 138 Potassium 3.5 3.7 Chloride 105 107 Carbon Dioxide 28 26 BUN 11 9 Creatinine 0.52 L 0.43 L Glucose 177 H 136 H Calcium 8.5 8.2 L Liver Function 11/18/21 Range/Units 11:00 Total Bilirubin 0.2 (0.2-1.0) mg/dl AST 8 L (13-39) U/L ALT 7 (7-52) U/L Alkaline Phosphatase 29 L (34-104) U/L Albumin 3.7 (3.4-5.0) gm/dl Urine 11/18/21 Range/Units 11:23 Urine Color Dark Yellow Urine Appearance Clear (Clear) Urine pH 7.5 (4.5-7.5) Ur Specific [place] 1.025 (1.000-1.030) Urine Protein 2+ H (Negative) Urine Glucose (UA) Trace H (Negative)
[2021-11-19] MEDS ORDERED: PROMETHAZINE HCL 25 MG/20 ML UDP PO PRN (09:19)
[2021-11-19] MEDS: ARIPiprazole 5 MG TAB PO SCH (09:24)
[2021-11-19] MEDS: MAGNESIUM SULFATE / D5W 1 GM/100 ML BAG IV SCH ×3 (09:24→13:05)
--- NOTE | 2021-11-19 09:33 | Gastroenterology Progress Note ---
Date of Service November 19, 2021 Assessment & Plan (1) Pancreatitis: (2) Marijuana dependence: Plan: Pt is a 36 yo female currently admitted with post ERCP pancreatitis, symptomatically improved - CL, diabetic diet - IVF support w LR @200ml/hr - Symptomatic management with antiemetics and analgesics prn - Recall GI prn over the weekend Admission and Anticipated Discharge Date Admission Date: November 18, 2021 Supervising Physician Co-Signing Physician Notes I performed a history and physical examination of the patient today, including specifically on physical exam - soft abdomen. I have discussed the patient's management with the advanced practitioner. Please refer to the nurse practitioner's note for the documented findings and plan of care. Vitals normal Clinically improved. Labs improved. Advance diet as tolerated. Recall GI if needed. Subjective Pt reports still having abd pain but improved some, willing to try CL diet. No fever, chills, n/v Review of Systems Review of Systems: All systems reviewed & are unremarkable except as noted in HPI & below Physical Exam Constitutional: WD/WN, vitals as above well groomed, cooperative and comfortable Eyes: PERRL, conjunctivae normal, anicteric sclerae ENMT: external ear and nose normal, oropharynx normal Respiratory: normal respiratory effort, lungs clear to auscultation Cardiovascular: RRR, no murmur, no edema Gastrointestinal (Abdomen): Soft, mild TTP, BS present Skin: no rashes, warm and dry no jaundice Psychiatric: A+Ox3, euthymic affect Lymphatic: no lymphedema Results & Data ([facility]) Vital Signs (Past 12 Hours) Vital Signs Temp Pulse Pulse Pulse Resp BP Pulse Ox 11/19/21 07:24 61 11/19/21 06:33 36.8 C 68 20 116/77 96 11/19/21 05:20 64 11/19/21 03:04 37.0 C 68 18 102/62 97 11/18/21 23:19 36.9 C 77 20 99/63 L 94 (1) Pancreatitis Acute pancreatitis complication: unspecified Chronicity: acute Pancreatitis type: unspecified pancreatitis type Qualified Code(s): K85.90 - Acute pancreatitis without necrosis or infection, unspecified
[2021-11-19] MEDS: PANTOprazole 40 MG TAB PO SCH ×2 (10:05→21:20)
[2021-11-19] MEDS: ONDANSETRON INJ 2 MG/ML 2 ML VIAL IV SCH ×3 (10:55→23:00)
[2021-11-19] MEDS: METOCLOPRAMIDE HCL INJ 5 MG/ML 2 ML VIAL IV PRN ×2 (13:54→20:03)
[2021-11-19] MEDS: HYDROmorphone INJ 0.5 MG/0.5 ML SYR IV PRN ×2 (20:02→23:55)
[2021-11-20] MEDS: LACTATED RINGER'S 1,000 ML IV SCH ×4 (03:32→19:31)
[2021-11-20] MEDS: ONDANSETRON INJ 2 MG/ML 2 ML VIAL IV SCH ×4 (04:34→22:23)
[2021-11-20] MEDS: HYDROmorphone INJ 0.5 MG/0.5 ML SYR IV PRN ×4 (04:41→19:46)
[2021-11-20] MEDS: HYDROmorphone INJ 1 MG/ML SYRINGE IV PRN (05:18)
[2021-11-20 06:14] LABS: Hematocrit (blood only) 31.9 % (37-47); Hemoglobin 11.1 g/dL (12.0-16.0); Mean Corpuscular Hemoglobin 29.5 pg (25-34); Mean Corpuscular Hgb Conc 34.8 g/dL (32-36); Mean Corpuscular Volume 84.8 fL (80-100); Mean Platelet Volume 10.3 fL (7.4-10.4); Platelet Count 292 K/uL (130-400); RDW Coefficient of Variation 12.4 % (11.5-14.5); RDW Standard Deviation 38.3 fL (36.4-46.3); Red Blood Count 3.76 M/uL (4.2-5.4); White Blood Count 6.84 K/uL (4.8-10.8)
[2021-11-20 06:32] LABS: Alanine Aminotransferase 6 U/L (7-52); Albumin Globulin Ratio 1.2 (0.9-2); Albumin Level 3.2 gm/dl (3.4-5.0); Alkaline Phosphatase 26 U/L (34-104); Anion Gap 4 (3-11); Aspartate Aminotransferase 9 U/L (13-39); BUN Creatinine Ratio 7.1 (10-20); Bilirubin,Total 0.3 mg/dl (0.2-1.0); Blood Urea Nitrogen 3 mg/dl (6-23); Calcium 8.4 mg/dl (8.5-10.1); Carbon Dioxide 28 mmol/L (21-32); Chloride 105 mmol/L (98-107); Creatinine Clr Calc Pharmacy 141.1 ml/min; Est GFR (African American) > 150.0 ml/min; Est GFR (Non-African American) 132.8 ml/min; Globulin 2.6 gm/dl (2.5-4.0); Glucose 147 mg/dl (70-99(Fasting)); Lipase 204 U/L (11-82); Potassium 3.6 mmol/L (3.5-5.1); Sodium 137 mmol/L (136-145); Total Protein 5.8 gm/dl (6.0-8.3)
[2021-11-20] MEDS: ENOXAPARIN INJ 40 MG/0.4 ML SYR SQ SCH (07:59)
[2021-11-20] MEDS: METOCLOPRAMIDE HCL INJ 5 MG/ML 2 ML VIAL IV PRN ×2 (08:02→14:32)
[2021-11-20] MEDS: INSULIN ASPART PER UNIT SC SCH ×4 (08:43→21:08)
[2021-11-20] MEDS: PANTOprazole 40 MG TAB PO SCH ×2 (09:17→21:07)
[2021-11-20] MEDS: ARIPiprazole 5 MG TAB PO SCH (10:10)
--- NOTE | 2021-11-20 12:07 | Hospitalist Progress Note ---
Date of Service November 20, 2021 Assessment & Plan (1) Acute recurrent pancreatitis: Plan: In setting of recent ERCP with stent placement -Lipase improving -continue NSS at 200 cc/hr, pain control -zofran scheduled Q 6 hours, and reglan PRN -tolerating clears, advance to full liquid -add oxycodone 5mg Q 6PRN for pain, continue IV dilaudid for breakthrough pain not relieved with PO (2) Marijuana dependence: (3) Insulin dependent diabetes mellitus: (4) GERD (gastroesophageal reflux disease): (5) Major depressive disorder: (6) Hypomagnesemia: Plan: repleted Plan: DVT ppx -SQ lovenox Admission and Anticipated Discharge Date Admission Date: November 18, 2021 Subjective Feels better, less nauseous, pain is controlled tolerating clears, agreeable for advancing to full liquids Physical Exam Physical Exam: Pleasant, comfortable, no acute distress Respiratory: breathing comfortably on room air, no wheezing/rhonchi/rales Cardiovascular: regular rate and rhtythm, no murmurs/rubs/gallops Gastrointestinal (Abdomen): soft, non tender Musculoskeletal: No edema Results & Data Results & Data ([facility]) Vital Signs (Past 12 Hours) Vital Signs Temp Pulse Pulse Resp BP Pulse Ox 11/20/21 07:30 37.2 C 76 18 121/76 98 11/20/21 05:05 65 11/20/21 03:37 36.8 C 84 18 119/73 96
[2021-11-20] MEDS: oxyCODONE HCL IR 5 MG TAB (IMMEDIATE RELEASE) PO PRN (12:17)
[2021-11-20] MEDS: SIMETHICONE 80 MG CHEW PO PRN (13:23)
[2021-11-21] MEDS: LACTATED RINGER'S 1,000 ML IV SCH ×3 (00:39→10:46)
[2021-11-21] MEDS: HYDROmorphone INJ 0.5 MG/0.5 ML SYR IV PRN (05:13)
[2021-11-21] MEDS: ONDANSETRON INJ 2 MG/ML 2 ML VIAL IV SCH (05:13)
[2021-11-21 06:08] LABS: Hematocrit (blood only) 35.2 % (37-47); Hemoglobin 11.9 g/dL (12.0-16.0); Mean Corpuscular Hemoglobin 28.7 pg (25-34); Mean Corpuscular Hgb Conc 33.8 g/dL (32-36); Platelet Count 304 K/uL (130-400); RDW Standard Deviation 37.4 fL (36.4-46.3); Red Blood Count 4.14 M/uL (4.2-5.4); White Blood Count 8.87 K/uL (4.8-10.8)
[2021-11-21 06:32] LABS: Albumin Globulin Ratio 1.2 (0.9-2); Albumin Level 3.3 gm/dl (3.4-5.0); BUN Creatinine Ratio 10.9 (10-20); Bilirubin,Total 0.3 mg/dl (0.2-1.0); Calcium 8.9 mg/dl (8.5-10.1); Creatinine Clr Calc Pharmacy 107.7 ml/min; Est GFR (African American) 140.8 ml/min; Est GFR (Non-African American) 121.5 ml/min; Globulin 2.8 gm/dl (2.5-4.0); Potassium 3.9 mmol/L (3.5-5.1); Total Protein 6.1 gm/dl (6.0-8.3)
[2021-11-21] MEDS: PANTOprazole 40 MG TAB PO SCH (08:27)
[2021-11-21] MEDS: ARIPiprazole 5 MG TAB PO SCH (08:27)
[2021-11-21] MEDS: INSULIN ASPART PER UNIT SC SCH ×2 (08:28→12:13)
[2021-11-21] MEDS: ENOXAPARIN INJ 40 MG/0.4 ML SYR SQ SCH (08:28)
[2021-11-21] MEDS: METOCLOPRAMIDE HCL INJ 5 MG/ML 2 ML VIAL IV PRN (09:03)
[2021-11-21] MEDS: oxyCODONE HCL IR 5 MG TAB (IMMEDIATE RELEASE) PO PRN ×2 (09:03→13:43)
[2021-11-21] MEDS ORDERED: ONDANSETRON 8MG OD TAB PO PRN (09:11)
[2021-11-21] MEDS: SIMETHICONE 80 MG CHEW PO PRN (10:19)
[2021-11-21] MEDS ORDERED: MAGNESIUM HYDROXIDE SUSP 30 ML UDC PO ONE (10:32)
[2021-11-21] MEDS ORDERED: bisacodyL 10 MG SUPP PR PRN (10:32)
[2021-11-21] MEDS ORDERED: DOCUSATE SODIUM/SENNA 50/8.6MG TAB PO SCH (10:45)
--- NOTE | 2021-11-21 15:36 | Discharge Summary ---
Date of Service November 21, 2021 Admission HPI Per Admitting Provider This is a 36 y/o female with a PMH of pancreatitis with pseudocyst formation, DM2, HTN, vit D deficiency, depression, anxiety, ADHD, alcoholism but abstinent since Jul 2021, and tobacco abuse who presents to the ED with abdominal pain and vomiting that started after she underwent an ERCP yesterday. Pt has a history of recurrent pancreatitis, initially due to alcohol abuse. However, in Jul 2021, she reports stopping alcohol completely after she was admitted for EtOH- pancreatitis. Readmitted in Sep due to recurrent symptoms and found to have a pseudocyst. She reports that she had been doing well overall up until the procedure yesterday. She is watching her diet closely and avoiding alcohol. After the procedure, she has some milder abdominal discomfort. Woke up at 12:30 am with worsening pain and multiple episodes of vomiting. Unable to keep oral intake down so called outpatient GI provider who referred her to the ED for evaluation. She reports all of her symptoms are the same as prior episodes of p ancreatitis. Does c/o chills last night but no documented fevers. Reports ECHEVARRIA, dizziness, mild SOB, ongoing issues with constipation. Denies dark urine, hematuria. ERCP 11/17/21 (Dr. Nielsen) - pancreatic papillary stenosis treated w/ sphincterotomy and balloon dilation sphincteroplasty, pancreatic stones found w/ complete removal accomplished; one plastic pancreatic stent placed into vental PD Principal Diagnosis Acute pancreatitis Hypomagnesemia Constipation Nausea Discharge Data Allergies Allergy/AdvReac Type Severity Reaction Status Date / Time bee venom protein (honey bee) Allergy Severe ANAPHYLAXIS Verified 11/18/21 11:34 Consultations 11/18/21 12:39 ED Decision to Admit Stat 11/18/21 16:04 Consult Gastroenterology Routine Ordered Studies 11/18/21 11:01 CT abd pelvis IV con only Stat Hospital Course (1) Acute recurrent pancreatitis: (2) Marijuana dependence: (3) Insulin dependent diabetes mellitus: (4) GERD (gastroesophageal reflux disease): (5) Major depressive disorder: (6) Hypomagnesemia: Ms Jeremias Cerna is a 36 year old female with history of recurrent pancreatitis, pancreatic stones, pseudocyst and former alcohol user who underwent ERCP with pancreatic duct stent placement 11/17/[address] Nielsen presented to ER 11/18 with worsening nausea/vomiting/abdominal pain found to have recurrent pancreatitis. She was placed on bowel rest, aggressive IV fluid, pain and nausea medications. She slowly improved and her diet was slowly advanced to a carb controlled low fat diet prior to discharge which she is tolerating. She reports resolution of her abdominal pain and feels comfortable returning home. Of note, patient has chronic constipation and feels constipated currently. Prescription for miralax and dulcolax suppository and fleet's enema was provided to her. Patient will follow up with GI at her scheduled appointments for stent removal and follow up of her pancreatitis. Total Time Total Time Spent Total Time Spent (In Minutes): 35 Discharge Plan Discharge Items Patient Disposition: Home - Self-Care Reason For Visit: PANCREATITIS Discharge Diagnosis: Pancreatitis Condition on Discharge: Good Activity: Resume your previous activity Activity Comment: While taking Oxycodone, avoid driving, swimming, baths (showers ok) Non-emergency contact: Primary Care Provider and Truck Engine Assembler Call non-emergency contact if: you have any medication questions, your symptoms worsen and you have a fever Follow-up/Referrals: Harinder Nathan, [Primary Care Provider] - Diet: Carb Consistent or DM2 and Low Fat Addtl Attending Provider Instructions: Please follow up with your administrative support assistant as scheduled Pending Studies at Discharge: No Stand-Alone Forms: My OpenROV, Smoking Cessation Medications and DC Order Prescriptions: New bisacodyl 10 mg Suppository 10 mg LA DAILY PRN (Reason: constipation) 30 Days Qty: 30 RF: 0 oxycodone 5 mg Tablet 5 mg PO Q6 PRN (Reason: pain) 7 Days Qty: 10 RF: 0 Enema 19-7 gram/118 mL enema 118 ml LA DAILY MDD 118 PRN (Reason: constipation) Qty: 931 RF: 0 polyethylene glycol 3350 [Miralax] 17 gram/dose powder 17 g PO DAILY Qty: 119 RF: 0 Continued epinephrine 0.3 mg/0.3 mL auto-injector 0.3 mg IM UD PRN (Reason: Allergic Reaction) RF: 0 buspirone 5 mg tablet 5 mg PO BID PRN (Reason: Anxiety) RF: 0 fluticasone propion-salmeterol 250-50 mcg/dose blister with device 1 inh INHALATION BID PRN (Reason: Shortness Of Breath) RF: 0 hydroxyzine HCl 50 mg tablet 50 mg PO BID PRN (Reason: Anxiety) RF: 0 montelukast 10 mg tablet 10 mg PO HS RF: 0 insulin lispro 100 unit/mL solution See Rx Instructions .ROUTE .COMPLEX RF: 0 cyclobenzaprine 5 mg tablet 5 mg PO BID PRN (Reason: Muscle Spasm) RF: 0 levocetirizine 5 mg tablet 5 mg PO HS RF: 0 ondansetron 4 mg tablet,disintegrating 4 mg PO DAILY PRN (Reason: nausea and vomiting) Qty: 30 RF: 0 pantoprazole 40 mg Tablet,Delayed Release (Dr/Ec) 40 mg PO BID Qty: 30 RF: 0 thiamine HCl (vitamin B1) [Vitamin B-1] 100 mg Tablet 100 mg PO QAM Qty: 30 RF: 0 baclofen 10 mg tablet 10 mg PO AMHS RF: 0 trazodone 50 mg tablet 50 mg PO HS PRN (Reason: Insomnia) RF: 0 aripiprazole 5 mg tablet 5 mg PO DAILY RF: 0 magnesium oxide 400 mg (241.3 mg magnesium) tablet 400 mg PO DAILY Qty: 30 RF: 0 celecoxib 100 mg capsule 100 mg PO BID PRN (Reason: pain) Qty: 30 RF: 0 Discharge Orders: Discharge Order (Routine); Ordered 11/21/21 Ordered By: Hal Gruber/Other Patient Handouts: Pancreatitis Acute Dc Admission Data Admit Date/Time: 11/20/21 13:58 Attending Provider: Hal Rosenbaum Admit Provider: Jack Dominguez Primary Care Provider: Harinder Nathan Other Providers: Jack Dominguez ; Ramone Aiken Other Interventions: Discharge Summary Assessment (RN) Last Done: 11/21/21 15:04
== END 2021-11-21 16:07 | disposition home or self-care (01) ==
LOC: 2N 10:36 → ED 10:36 → SUATTDRO 13:39 → 2N 15:52

== ENCOUNTER 2022-03-10 15:11 | Inpatient (IN) ==
[2022-03-10] MEDS ORDERED: LORazepam 1 MG TAB PO STA (15:41)
[2022-03-10 16:06] LABS: Basophils # (auto) 0.01 K/uL (0-0.2); Basophils % (auto) 0.1 %; Eosinophils # (auto) 0.01 K/uL (0-0.50); Eosinophils % (auto) 0.1 %; Hematocrit (blood only) 36.8 % (34.1-44.9); Hemoglobin 13.2 g/dl (12.0-16.0); Immature Granulocytes # (auto) 0.03 K/uL (0.00-0.02); Immature Granulocytes % (auto) 0.3 %; Lymphocytes # (auto) 1.22 K/uL (1.2-3.4); Lymphocytes % (auto) 10.8 %; Mean Corpuscular Hgb Conc 35.9 g/dL (32.0-36.0); Mean Corpuscular Volume 80.9 fL (80.0-100.0); Mean Platelet Volume 10.7 fL (9.4-12.3); Monocytes # (auto) 0.64 K/uL (0.24-0.82); Monocytes % (auto) 5.7 %; Neutrophils # (auto) 9.39 K/uL (1.4-6.5); Platelet Count 197 K/uL (130-400); RDW Coefficient of Variation 13.2 % (11.5-14.5); RDW Standard Deviation 38.5 fL (36.4-46.3); Red Blood Count 4.55 M/uL (3.93-5.22)
[2022-03-10 16:33] LABS: Acetaminophen < 3 ug/ml (10-30); Salicylate < 3.0 mg/dl (3.0-30)
--- NOTE | 2022-03-10 16:42 | CT Scan Report ---
CT head/brain wo con CLINICAL HISTORY: 36 years-old Female with ams. Acutely altered mental status TECHNIQUE: Multiple axial CT images of the head were obtained without contrast. A dose lowering tech nique was utilized adhering to the principles of ALARA. CT DOSE: 537.48 mGy.cm COMPARISON: Head CT 08/03/2021 FINDINGS: No acute intracranial hemorrhage, midline shift, intracranial mass, hydrocephalus, territorial ischem ia or abnormal extra-axial collection. The calvarium is intact. The paranasal sinuses, mastoid air cells, and middle ear cavities are clear . IMPRESSION: No acute intracranial abnormality. ACT 112: Negative or not required by law. The above report was generated using voice recognition software. It may contain grammatical, syntax o r spelling errors. Electronically signed by: Pepe Lancaster M.D. 03/10/2022 4:39 PM
[2022-03-10 16:50] LABS: Alanine Aminotransferase 34 U/L (7-52); Albumin Globulin Ratio 1.1 (0.9-2); Albumin Level 4.3 gm/dl (3.4-5.0); Alkaline Phosphatase 87 U/L (34-104); Aspartate Aminotransferase 41 U/L (13-39); BUN Creatinine Ratio 28.1 (10-20); Bilirubin,Total 1.4 mg/dl (0.2-1.0); Blood Urea Nitrogen 32 mg/dl (6-23); Calcium 9.1 mg/dl (8.5-10.1); Carbon Dioxide > 45 mmol/L (21-32); Chloride 56 mmol/L (98-107); Est GFR (African American) 72.1 ml/min; Est GFR (Non-African American) 62.2 ml/min; Glucose 381 mg/dl (70-99(Fasting)); Lipase 557 U/L (11-82); Potassium 2.3 mmol/L (3.5-5.1); Sodium 117 mmol/L (136-145); Total Protein 8.3 gm/dl (6.0-8.3)
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
[2022-03-10] MEDS ORDERED: SODIUM CHLORIDE 0.9% 1000ML 1,000 ML IV ONE (17:01)
[2022-03-10] MEDS: SODIUM CHLORIDE 0.9% 1000ML 1,000 ML IV SCH ×2 (17:01→21:23)
[2022-03-10] MEDS ORDERED: POTASSIUM CHLORIDE 10 MEQ TABCR PO STA (17:11)
[2022-03-10] MEDS ORDERED: POTASSIUM CHLORIDE CRTAB 20 MEQ TABCR PO SCH (17:11)
[2022-03-10] MEDS ORDERED: LORazepam 2 MG/1 ML VIAL IV STA (17:14)
[2022-03-10] MEDS: MAGNESIUM SULFATE / D5W 1 GM/100 ML BAG IV SCH ×3 (17:23→22:29)
--- NOTE | 2022-03-10 17:51 | Electrocardiogram Report ---
Test Reason : Blood Pressure : / mmHG Vent. Rate : 089 BPM Atrial Rate : 089 BPM P-R Int : 130 ms QRS Dur : 076 ms QT Int : 508 ms P-R-T Axes : 064 041 004 degrees QTc Int : 618 ms Poor data quality, interpretation may be adversely affected Normal sinus rhythm Minimal voltage criteria for LVH, may be normal variant Diffuse Minor Nonspecific T wave abnormality Abnormal ECG When compared with ECG of 03-AUG-2021 16:15, Nonspecific T wave abnormality now present Confirmed by Ronen Antony ([id number]) on 03/10/2022 5:50:47 PM Referred By: Confirmed By:Ronen Antony
[2022-03-10 18:10] LABS: Allen Test Pos (Pos); Base Excess ABG 29.7 mEq/L (-9-1.8); HCO3 ABG 54 mmol/L (19-24); Oxygen Saturation ABG 98.8 % (90-95); PCO2 ABG 47 mmHg (35-46); PO2 ABG 82 mmHg (80-95)
[2022-03-10 18:12] LABS: pH ABG 7.67 (7.35-7.45)
--- NOTE | 2022-03-10 18:15 | History & Physical Report ---
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 labs Lantus/NovoLog per protocol while hospitalized (10) DVT prophylaxis: Plan: SCDs History of Present Illness Chief Complaint: Altered mental status Primary Care Provider: Harinder Nathan, 36-year-old female with PMH anxiety, depression, ADHD, bipolar disorder, IDDM, recurrent pancreatitis, choledocholithiasis, pancreatic pseudocyst, alcohol abuse, and other problems listed below who was brought to the ED by the police after neighbors found her to be hallucinating on the porch. History is currently unobtainable from the patient as she is very delirious. She states that her ex- brought her children to her house and they were on the roof sliding down. When patient was asked if she is taking her insulin she states, "When I need it, but I usually don't need it. I just feel my skin to see if I need it." Patient reports she is drinking alcohol however however cannot quantify the amount. States she also drinks "40 bottles" of water per day. In the ED, patient is found to have severe electrolyte derangements with Na+ 117, K+ 2.3, Mg+ 1.6, glucose 381. Allergies Allergy/AdvReac Type Severity Reaction Status Date / Time bee venom protein (honey bee) Allergy Severe ANAPHYLAXIS Verified 02/11/22 07:20 Home Medications Medication Instructions Recorded Confirmed Type thiamine HCl (vitamin B1) 100 mg 100 mg PO QAM #30 tabs 08/16/21 03/10/22 Rx tablet (Vitamin B-1) aripiprazole 5 mg tablet (Abilify) 5 mg PO QAM 10/06/21 03/10/22 History baclofen 10 mg tablet 10 mg PO AMHS 10/06/21 03/10/22 History trazodone 50 mg tablet 50 mg PO HS PRN Insomnia 10/06/21 03/10/22 History buspirone 5 mg tablet 5 mg PO BID PRN Anxiety 11/18/21 03/10/22 History cyclobenzaprine 5 mg tablet 5 mg PO BID PRN Muscle Spasm 11/18/21 03/10/22 History epinephrine 0.3 mg/0.3 mL 0.3 mg IM UD PRN Allergic Reaction 11/18/21 03/10/22 History injection, auto-injector fluticasone 250 mcg-salmeterol 50 1 inh inhalation BID PRN Shortness 11/18/21 03/10/22 History mcg/dose blistr powdr for Of Breath inhalation (Advair Diskus) hydroxyzine HCl 50 mg tablet 50 mg PO BID PRN Anxiety 11/18/21 03/10/22 History insulin lispro 100 unit/mL See Rx Instructions .Route .COMPLEX 11/18/21 03/10/22 History subcutaneous solution levocetirizine 5 mg tablet (24HR 5 mg PO HS 11/18/21 03/10/22 History Allergy Relief) ondansetron 4 mg disintegrating 4 mg PO DAILY PRN nausea and 11/21/21 03/10/22 Rx tablet vomiting #30 tabs polyethylene glycol 3350 17 17 g PO DAILY constipation #119 11/21/21 03/10/22 Rx gram/dose oral powder (Miralax) grams sodium phosphates 19 gram-7 118 ml [place] DAILY PRN constipation 11/21/21 03/10/22 Rx gram/118 mL enema (Enema) #931 mL Medical Marijuana 1 dose inhalation HS PRN Sleep 02/08/22 03/10/22 History magnesium oxide 400 mg (241.3 mg 400 mg PO QAM 02/08/22 03/10/22 History magnesium) tablet celecoxib 100 mg capsule (Celebrex) 100 mg PO BID PRN pain 02/11/22 03/10/22 History pantoprazole 40 mg tablet,delayed 40 mg PO BID 02/11/22 03/10/22 History release (Protonix) Past Med/Surg History Medical History Alcohol use disorder, moderate, dependence denies Anxiety H/O Asthma Cardiac murmur no significant valvular disease on 08/20/2019 echo Choledocholithiasis Depression H/O Diabetes IDDM ANGE (generalized anxiety disorder) GERD (gastroesophageal reflux disease) R/T Gestational diabetes History of pancreatitis HTN (hypertension) no meds Pancreatitis Post traumatic stress disorder (PTSD) Scoliosis MINOR Vomiting Surgical History History of adenoidectomy History of section x 2 History of ERCP History of tonsillectomy Family History Other Adopted Social History Smoking Status: Unknown if ever smoked Tobacco Type: Cigarettes Cigarettes Per Day: December 2021; Second Hand Exposure: No; Hx Alcohol Use: No Hx Substance Use: Yes Prescribed Medications: Marijuana Last Used Substance: Just Prior to Arrival Last Used Substance Other:: reports last used on 11/17/21 Substance Use Type Other:: medical card Preferred Language: Kazakh 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: Effective Fiberglass Laminator Required: No Beliefs That Will Affect Care: None Current Living Situation: Family Current Living Situation Comment: with kids Feels Safe at Home: Yes Assistive Devices: None Review of Systems Review of Systems: Unobtainable due to mental health condition Physical Exam Constitutional: + thin; no acute distress Eyes: PERRL, conjunctivae normal, anicteric sclerae ENMT: external ear and nose normal, oropharynx normal Respiratory: normal respiratory effort, lungs clear to auscultation Cardiovascular: Rate/Rhythm: regular rate and regular rhythm Vessels: normal peripheral pulses Extremities: no edema Gastrointestinal (Abdomen): normal bowel sounds, soft, nontender, no hepatosplenomegaly Musculoskeletal: no cyanosis or clubbing, extremities motor strength 5/5 Skin: no rashes, warm and dry Neurologic: PERRL, EOMI, accommodation nl, no face palsy, no dysarthria Psychiatric: Orientation: alert, oriented to person and cooperative; + not oriented to place and + not oriented to time Thought Process: + tangential thought process and + flight of ideas Thought Content: + delusions Results & Data Results & Data ([facility]) Vital Signs (Past 12 Hours) Vital Signs Temp Pulse Resp BP Pulse Ox O2 Del Method 03/10/22 15:12 37.1 C 03/10/22 15:12 107 H 16 130/100 99 Room Air Laboratory Results Short CBC 03/10/22 Range/Units 15:50 WBC 11.30 H (4.8-10.8) K/ul Hgb 13.2 (12.0-16.0) g/dl Hct 36.8 (34.1-44.9) % Plt Count 197 (130-400) K/uL BMP 03/10/22 15:50 Sodium 117 L* Potassium 2.3 L* Chloride 56 L Carbon Dioxide > 45 H* BUN 32 H Creatinine 1.14 Glucose 381 H* Calcium 9.1 Liver Function 03/10/22 Range/Units 15:50 Total Bilirubin 1.4 H (0.2-1.0) mg/dl AST 41 H (13-39) U/L ALT 34 (7-52) U/L Alkaline Phosphatase 87 (34-104) U/L Albumin 4.3 (3.4-5.0) gm/dl Diagnostic Findings Head CT 03/10/22 15:41 CT head/brain wo con CLINICAL HISTORY: 36 years-old Female with ams. Acutely altered mental status TECHNIQUE: Multiple axial CT images of the head were obtained without contrast. A dose lowering technique was utilized adhering to the principles of ALARA. CT DOSE: 537.48 mGy.cm COMPARISON: Head CT 08/03/2021 FINDINGS: No acute intracranial hemorrhage, midline shift, intracranial mass, hydrocephalus, territorial ischemia or abnormal extra-axial collection. The calvarium is intact. The paranasal sinuses, mastoid air cells, and middle ear cavities are clear. IMPRESSION: No acute intracranial abnormality. ACT 112: Negative or not required by law. The above report was generated using voice recognition software. It may contain grammatical, syntax or spelling errors. Electronically signed by: Pepe Lancaster M.D. 03/10/2022 4:39 PM Supervising Physician Co-Signing Physician Notes Patient was seen and examined independently at bedside. Chart reviewed. Case discussed with Haley COX and agree with the documentation above. In summary, this is a 36 year old female with bipolar disorder who was brought to the ED for hallucinations. During my encounter, she was AAOx3 but tangential and was not a reliable historian. Labs significantly abnormal including hyponatremia and hypokalemia. Reports drinking 30-40 bottles of water daily. 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 Given significant electrolyte abnormalities, she will be admitted to ICU for closer monitoring and further management. Plan for 3% hypertonic saline noted- ICU will be following closely to avoid overcorrection. Electrolytes will be repleted per ICU protocol. Follow UDS. Follow urinary studies but confounded as treatment was already started prior to correction. Consult psych. Rest as per the note above.
[2022-03-10 18:30] LABS: Alanine Aminotransferase 29 U/L (7-52); Albumin Globulin Ratio 1.1 (0.9-2); Albumin Level 3.8 gm/dl (3.4-5.0); Alkaline Phosphatase 76 U/L (34-104); Anion Gap 11 (3-11); Aspartate Aminotransferase 34 U/L (13-39); BUN Creatinine Ratio 36.4 (10-20); Bilirubin,Total 1.3 mg/dl (0.2-1.0); Blood Urea Nitrogen 28 mg/dl (6-23); Calcium 8.3 mg/dl (8.5-10.1); Carbon Dioxide 44 mmol/L (21-32); Chloride 64 mmol/L (98-107); Est GFR (African American) 115.9 ml/min; Globulin 3.5 gm/dl (2.5-4.0); Glucose 267 mg/dl (70-99(Fasting)); Sodium 119 mmol/L (136-145); Total Protein 7.3 gm/dl (6.0-8.3)
[2022-03-10] MEDS ORDERED: ICU PROTOCOL FOR HYPERGLYCEMIA PRN (19:41)
[2022-03-10] MEDS ORDERED: PHARMACY GLYCEMIC MGMT CONSULT PRN (19:41)
[2022-03-10] MEDS ORDERED: POTASSIUM PHOS 3 MMOL/1 ML INFUSION IV STA (19:51)
[2022-03-10] MEDS ORDERED: POTASSIUM PHOSPHATE 40 MMOL in SODIUM CHLORIDE 0.9% 1000ML 1,000 ML IV ONE (20:00)
[2022-03-10 20:16] LABS: Base Excess VBG 28.9 mEq/L; HCO3 VBG 56 mmol/L; Oxygen Saturation VBG < 60.0 %; PCO2 VBG 61 mmHg (38-50); PO2 VBG 20 mmHg; pH VBG 7.57 (7.36-7.41)
[2022-03-10] MEDS: Patient's HEIGHT &/or WEIGHT Needed SCH ×2 (20:16→21:22)
[2022-03-10 20:24] LABS: Appearance Urine Clear (Clear); Bacteria Urine Automated 4+ (Negative); Bilirubin Urine Negative (Negative); Blood Urine 3+ (Negative); Cast Urine Automated 0 /lpf (0-5); Color Urine Yellow; Glucose Urine UA Trace (Negative); Ketones Urine Negative (Negative); Leukocyte Esterase Urine Trace (Negative); Nitrite Urine Negative (Negative); RBC Urine Automated 0-4 /hpf (0-4); Specific Gravity Urine 1.007 (1.000-1.030); Urobilinogen Urine Negative (Negative)
--- NOTE | 2022-03-10 20:24 | Critical Care Consultation ---
Date of Consultation March 10, 2022 Assessment & Plan (1) Acute hyponatremia: Reason Critically Ill: 36-year-old female with severe symptomatic hyponatremia presents to the ICU after being found with sodium 117 and AMS. Neuro - Deliriumlikely metabolic in nature due to hyponatremia. Patient also has significant psych history and substance abuse. UDS is currently pending. EtOH negative. Acetaminophen and salicylates negative. CT head unremarkable. She does have a significantly prolonged QTC. We will hold home psych medicine for now. Consult psych Cardiac - Prolonged QTCmay be due to electrolyte abnormalities, patient also on SSRI. Continue to hold psych meds. Replete electrolytes. Replete magnesium. Monitor BMPs every 4 hours. Trend EKGs every 6 hours. Continuous monitor on telemetry Respiratory - History of asthmano current symptoms. Continue Advair. DuoNeb as needed. Continuous monitoring pulse ox GI - Chronic pancreatitispatient with history of pancreatitis with recent admission for post ERCP pancreatitis. Lipase currently 500 and she is asymptomatic. Continue with IV fluid resuscitation. Trend lipase for now GERDfamotidine RENAL/LYTES - Severe electrolyte abnormalitiesunknown etiology at this time. Continue with IV fluid resuscitation and repletion. Acute hypoosmolar hyponatremia (symptomatic)initial sodium 117. No seizures thus far. Repeat sodium 119. Suspect this is likely medication induced versus polydipsia. Continue to trend every 4. Continue with hypertonic solution.. Goal to raise sodium no more than 8 mEq per 24 hours. Consult to nephrology. Metabolic alkalosispH 7.64. Suspect this is due to severe electrolyte abnormalities versus enema use? We will continue with fluid resuscitation and electrolyte repletion. Continue to trend VBG's. Expect to improve and will monitor closely - Strict I's and O's ENDO - DM type IIhyperglycemia improving. Continue with sliding scale. ICU hyperglycemic protocol HEME - H&H stable, monitor routine CBC ID - Indication for infectious process at this time LINES/IV ACCESS - Peripheral IV DVT PROPHYLAXIS - SCDs I have personally spent 40 minutes of critical care time in the direct management of this patient. This is a life/limb threatening event. This includes time spent evaluating patient, direct bedside care, chart review, placing orders, interpretation of diagnostic studies, discussion with consultants, patient, and family members, as well as other required patient management activities. This time is exclusive of all separately billable procedures, and teaching time and separate from and in addition to any other critical care service time. Thank you for allowing us to participate in the care of this patient. Please refer to my attending physician's documentation for any further recommendations. (2) Metabolic alkalosis: (3) Hypomagnesemia: (4) DVT prophylaxis: (5) DMII (diabetes mellitus, type 2): (6) Altered mental status: (7) ANGE (generalized anxiety disorder): (8) HTN (hypertension): (9) Bipolar disorder: (10) Cardiac murmur: (11) Asthma: (12) Depression: (13) GERD (gastroesophageal reflux disease): History of Present Illness Attending Physician: Jack Dominguez MD History of Present Illness 36-year-old female with past medical history significant for anxiety and depression, ADHD, bipolar disorder, IDDM, recurrent pancreatitis, pancreatic pseudocyst, and alcohol abuse who presented to the emergency department by police after neighbors found her to be confused and hallucinating. Patient was delirious and confused. She was found to have severe electrolyte abnormalities including hyponatremia with sodium 117. She has metabolic alkalosis, hyperglycemia. Patient did admit to drinking 40 bottles of water per day in the ER, however she is hyperosmolar and appears hypovolemic on exam. Lipase was somewhat elevated at 500. She received 1 L normal saline bolus in the ED and repeat sodium 119. She is receiving electrolyte repletion. We will start 3% infusion and monitor frequent labs. Patient to be managed in ICU for the time being. Allergies Allergy/AdvReac Type Severity Reaction Status Date / Time bee venom protein (honey bee) Allergy Severe ANAPHYLAXIS Verified 02/11/22 07:20 Home Medications Medication Instructions Recorded Confirmed Type thiamine HCl (vitamin B1) 100 mg 100 mg PO QAM #30 tabs 08/16/21 03/10/22 Rx tablet (Vitamin B-1) aripiprazole 5 mg tablet (Abilify) 5 mg PO QAM 10/06/21 03/10/22 History baclofen 10 mg tablet 10 mg PO AMHS 10/06/21 03/10/22 History trazodone 50 mg tablet 50 mg PO HS PRN Insomnia 10/06/21 03/10/22 History buspirone 5 mg tablet 5 mg PO BID PRN Anxiety 11/18/21 03/10/22 History cyclobenzaprine 5 mg tablet 5 mg PO BID PRN Muscle Spasm 11/18/21 03/10/22 History epinephrine 0.3 mg/0.3 mL 0.3 mg IM UD PRN Allergic Reaction 11/18/21 03/10/22 History injection, auto-injector fluticasone 250 mcg-salmeterol 50 1 inh inhalation BID PRN Shortness 11/18/21 03/10/22 History mcg/dose blistr powdr for Of Breath inhalation (Advair Diskus) hydroxyzine HCl 50 mg tablet 50 mg PO BID PRN Anxiety 11/18/21 03/10/22 History insulin lispro 100 unit/mL See Rx Instructions .Route .COMPLEX 11/18/21 03/10/22 History subcutaneous solution levocetirizine 5 mg tablet (24HR 5 mg PO HS 11/18/21 03/10/22 History Allergy Relief) ondansetron 4 mg disintegrating 4 mg PO DAILY PRN nausea and 11/21/21 03/10/22 Rx tablet vomiting #30 tabs polyethylene glycol 3350 17 17 g PO DAILY constipation #119 11/21/21 03/10/22 Rx gram/dose oral powder (Miralax) grams sodium phosphates 19 gram-7 118 ml [place] DAILY PRN constipation 11/21/21 03/10/22 Rx gram/118 mL enema (Enema) #931 mL Medical Marijuana 1 dose inhalation HS PRN Sleep 02/08/22 03/10/22 History magnesium oxide 400 mg (241.3 mg 400 mg PO QAM 02/08/22 03/10/22 History magnesium) tablet celecoxib 100 mg capsule (Celebrex) 100 mg PO BID PRN pain 02/11/22 03/10/22 History pantoprazole 40 mg tablet,delayed 40 mg PO BID 02/11/22 03/10/22 History release (Protonix) Patient History Medical History Alcohol use disorder, moderate, dependence denies Anxiety H/O Asthma Cardiac murmur no significant valvular disease on 08/20/2019 echo Choledocholithiasis Depression H/O Diabetes IDDM ANGE (generalized anxiety disorder) GERD (gastroesophageal reflux disease) R/T Gestational diabetes History of pancreatitis HTN (hypertension) no meds Pancreatitis Post traumatic stress disorder (PTSD) Scoliosis MINOR Vomiting Surgical History History of adenoidectomy History of section x 2 History of ERCP History of tonsillectomy Family History Other Adopted Social History Smoking Status: Light tobacco smoker Tobacco Type: Cigarettes Cigarettes Per Day: 1; Second Hand Exposure: No; Do You Dip or Chew Tobacco: No; Hx Alcohol Use: Yes Alcohol type: wine and hard liquor Hx Substance Use: Yes Prescribed Medications: Marijuana Last Used Substance: J ust Prior to Arrival Last Used Substance Other:: reports last used on 11/17/21 Substance Use Type Other:: medical marijuana Preferred Language: Cuban 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: Effective Demolitionist Required: No Beliefs That Will Affect Care: None Current Living Situation: Alone Current Living Situation Comment: with kids Feels Safe at Home: Yes Safety Concerns: Feels Safe At This Time Assistive Devices: None Review of Systems Review of Systems: Unobtainable due to cognitive status Physical Exam Constitutional: + thin and comfortable; no acute distress Eyes: PERRL, conjunctivae normal, anicteric sclerae ENMT: external ear and nose normal, oropharynx normal Neck: trachea midline, no thyromegaly Respiratory: normal respiratory effort, lungs clear to auscultation Cardiovascular: RRR, no murmur, no edema Heart Sounds: normal S1 and normal S2 Vessels: no JVD Extremities: no edema Gastrointestinal (Abdomen): normal bowel sounds, soft, nontender, no hepatosplenomegaly Musculoskeletal: no cyanosis or clubbing, extremities motor strength 5/5 Skin: no rashes, warm and dry Neurologic: PERRL, EOMI, accommodation nl, no face palsy, no dysarthria Psychiatric: Orientation: oriented to person; + not oriented to place and + not oriented to time Eye Contact: + poor eye contact Affect: euthymic affect Thought Content: + cognitive distortions and + delusions Cognition: + attention not intact Results & Data Results & Data ([facility]) Vital Signs (Past 12 Hours) Vital Signs Temp Pulse Pulse Resp BP BP Pulse Ox 03/10/22 19:07 94 H 16 116/68 97 03/10/22 18:24 95 H 16 116/68 98 03/10/22 15:12 37.1 C 07/28/22 15:12 107 H 16 130/100 99 O2 Del Method 03/10/22 19:07 Room Air 03/10/22 18:24 Room Air 03/10/22 15:12 03/10/22 15:12 Room Air Coding Level of Care Code Critical Care 1st 30-74 mins Diagnoses Acute hyponatremia E87.1 Metabolic alkalosis E87.3 Hypomagnesemia E83.42 DVT prophylaxis Z29.9 DMII (diabetes mellitus, type 2) E11.9 Altered mental status R41.82 ANGE (generalized anxiety disorder) F41.1 HTN (hypertension) I10 Bipolar disorder F31.9 Cardiac murmur R01.1 Asthma J45.40 Asthma complication type: uncomplicated Asthma persistence: persistent Asthma severity: moderate Depression F32.9 Depression Type: unspecified GERD (gastroesophageal reflux disease) K21.9 (1) Depression Depression Type: unspecified Qualified Code(s): F32.9 - Major depressive disorder, single episode, unspecified (2) Asthma Asthma complication type: uncomplicated Asthma persistence: persistent Asthma severity: moderate Qualified Code(s): J45.40 - Moderate persistent asthma, uncomplicated
[2022-03-10 20:25] LABS: Protein Urine 1+ (Negative)
[2022-03-10] MEDS ORDERED: SODIUM CHLORIDE 3 % 500 ML IV SCH (20:30)
[2022-03-10 20:39] LABS: BUN Creatinine Ratio 36.5 (10-20); Blood Urea Nitrogen 27 mg/dl (6-23); Calcium 8.4 mg/dl (8.5-10.1); Carbon Dioxide > 45 mmol/L (21-32); Chloride 67 mmol/L (98-107); Creatinine Clr Calc Pharmacy 77.2 ml/min; Est GFR (African American) 121.7 ml/min; Glucose 233 mg/dl (70-99(Fasting)); Potassium 2.2 mmol/L (3.5-5.1); Sodium 122 mmol/L (136-145)
[2022-03-10 20:46] LABS: Urine Chloride < 15 mmol/L; Urine Potassium 17.4 mmol/L; Urine Sodium 27 mmol/L
[2022-03-10 20:53] LABS: Amphetamines+Metham, Urine Neg (Neg); Barbiturates, Urine Neg (Neg); Benzodiazepine, Urine Neg (Neg); Cocaine, Urine Neg (Neg); MDMA (Ecstacy), Urine Neg (Neg); Methadone, Urine Neg (Neg); Opiate, Urine Neg (Neg); Phencyclidine, Urine Neg (Neg)
[2022-03-10] MEDS ORDERED: ALBUT/IPRATROP 3MG/0.5MG NEB 3 ML VIAL NEB PRN (20:55)
[2022-03-10] MEDS: POTASSIUM CHLORIDE / WTR 10 MEQ/100 ML PLCT IV SCH ×2 (21:01→21:21)
[2022-03-10] MEDS: INSULIN ASPART PER UNIT SC SCH (21:18)
[2022-03-10 23:16] LABS: Base Excess VBG 26.8 mEq/L; HCO3 VBG 52 mmol/L; Oxygen Saturation VBG 70.3 %; PCO2 VBG 52 mmHg (38-50); PO2 VBG 39 mmHg; pH VBG 7.61 (7.36-7.41)
[2022-03-11] MEDS ORDERED: [UNRECOGNIZED DRUG - REMARK] ONE (00:29)
[2022-03-11] MEDS: MAGNESIUM SULFATE / D5W 1 GM/100 ML BAG IV SCH (00:33)
[2022-03-11 01:08] LABS: BUN Creatinine Ratio 34.4 (10-20); Calcium 8.6 mg/dl (8.5-10.1); Creatinine Clr Calc Pharmacy 89.3 ml/min; Est GFR (Non-African American) 115.6 ml/min; Potassium 2.4 mmol/L (3.5-5.1)
[2022-03-11] MEDS ORDERED: DEXTROSE 5% 500 ML IV ONE (01:10)
[2022-03-11] MEDS ORDERED: POTASSIUM CHLORIDE 20 MEQ/15 ML UDC PO STA ×3 (01:18→13:22)
[2022-03-11] MEDS ORDERED: DESMOPRESSIN ACETATE 2 MCG in SODIUM CHLORIDE 0.9% 50 ML IV ONE (01:30)
[2022-03-11] MEDS ORDERED: INSULIN ASPART PER UNIT SC SCH (02:00)
[2022-03-11 03:49] LABS: Base Excess VBG 18.6 mEq/L; HCO3 VBG 44 mmol/L; Oxygen Saturation VBG 81.4 %; PCO2 VBG 50 mmHg (38-50); PO2 VBG 47 mmHg; pH VBG 7.55 (7.36-7.41)
[2022-03-11 04:15] LABS: BUN Creatinine Ratio 29.5 (10-20); Calcium 8.2 mg/dl (8.5-10.1); Creatinine Clr Calc Pharmacy 93.7 ml/min; Est GFR (African American) 136.1 ml/min; Est GFR (Non-African American) 117.5 ml/min
[2022-03-11] MEDS ORDERED: DEXTROSE 5% 250 ML IV ONE (04:24)
[2022-03-11 05:07] LABS: Basophils # (auto) 0.01 K/uL (0-0.2); Basophils % (auto) 0.1 %; Eosinophils # (auto) 0.07 K/uL (0-0.50); Eosinophils % (auto) 0.7 %; Hematocrit (blood only) 33.4 % (34.1-44.9); Hemoglobin 11.9 g/dl (12.0-16.0); Immature Granulocytes # (auto) 0.03 K/uL (0.00-0.02); Immature Granulocytes % (auto) 0.3 %; Lymphocytes # (auto) 1.55 K/uL (1.2-3.4); Lymphocytes % (auto) 16.2 %; Mean Corpuscular Hemoglobin 29.1 pg (25.0-34.0); Mean Corpuscular Hgb Conc 35.6 g/dL (32.0-36.0); Mean Corpuscular Volume 81.7 fL (80.0-100.0); Mean Platelet Volume 11.5 fL (9.4-12.3); Monocytes # (auto) 0.49 K/uL (0.24-0.82); Monocytes % (auto) 5.1 %; Neutrophils # (auto) 7.42 K/uL (1.4-6.5); Neutrophils % (auto) 77.6 %; Platelet Count 164 K/uL (130-400); RDW Coefficient of Variation 13.2 % (11.5-14.5); RDW Standard Deviation 39.5 fL (36.4-46.3); Red Blood Count 4.09 M/uL (3.93-5.22); White Blood Count 9.57 K/ul (4.8-10.8)
[2022-03-11 05:14] LABS: Magnesium 3.8 mg/dl (1.7-2.4); Phosphorus 3.9 mg/dl (2.5-4.9)
[2022-03-11] MEDS: ACETAMINOPHEN 325 MG TAB PO PRN (06:17)
[2022-03-11] MEDS ORDERED: POTASSIUM CHLORIDE CRTAB 20 MEQ TABCR PO STA ×3 (07:20→12:52)
--- NOTE | 2022-03-11 07:30 | Critical Care Progress Note ---
Date of Service March 11, 2022 Assessment & Plan (1) Acute hyponatremia: Plan: Reason Critically Ill: 36-year-old female with severe symptomatic hyponatremia presents to the ICU after being found with sodium 117 and AMS. Neuro - Delirium Multifactorial patient does have psychiatric history on top of hyponatremia. Patient seems to have alcohol use as well but her heart rate is within normal limit I doubt DTs are playing any role right now UDS positive for marijuana EtOH negative. Acetaminophen and salicylates negative. CT head unremarkable. She does have a significantly prolonged QTC. We will hold home psych medicine for now. Psych has been consulted Cardiac - Prolonged QTC may be due to electrolyte abnormalities, patient also on SSRI. Continue to hold psych meds. Keep potassium greater than 4, magnesium greater than 2, phosphorus greater than 3 Respiratory - History of asthma no current symptoms. Continue Advair. DuoNeb as needed. Continuous monitoring pulse ox GI - Chronic pancreatitis patient with history of pancreatitis with recent admission for post ERCP pancreatitis. Lipase currently 500 and she is asymptomatic Likely chronic elevation of lipase. No need for active treatment GERDfamotidine RENAL/LYTES - Acute hypoosmolar hyponatremia (symptomatic)initial sodium 117. Corrected initial sodium 121. No seizures thus far. Serum osmolality 264, urine osmolality 201, urine sodium 27 Calculated serum osmolality 267. No osmolar gap Possibly psychogenic polydipsia versus beer potomania. Continue to trend every 4. Nephrology on board Metabolic alkalosis initial pH 7.64. Suspect this is due to severe electrolyte abnormalities versus enema use? (Patient denies use of laxatives) we will continue with fluid resuscitation and electrolyte repletion. Monitor closely - Strict I's and O's ENDO - DM type IIhyperglycemia improving. Continue with sliding scale. ICU hyperglycemic protocol HEME - H&H stable, monitor routine CBC ID - Indication for infectious process at this time --Prophylaxis VTE: Lovenox GI: Pepcid Lines: Peripheral Diet: Water restriction 1L Plan: In/out +2.8 L, urine output 350 Patient's corrected sodium at the time of presentation was 121, goal sodium by 3 PM on 03/11/2022 will be around 127-128 which will be within acceptable limit of 6-8 mEq in the first 24 hours. This to be followed by goal of 131-133 in the next 24 hours. Patient did get a dose of DDAVP and 500 mL of D5 water as sodium was correcting very fast. Patient's metabolic alkalosis could be from laxative use but patient is denying the abuse of laxatives For hypokalemia 40 of KCl given to the patient. Continue to monitor the patient in the ICU with one-to-one I have personally spent 38 minutes of critical care time in the direct management of this patient. This is a life/limb threatening event. This includes time spent evaluating patient, direct bedside care, chart review, placing orders, interpretation of diagnostic studies, discussion with consultants, patient, and family members, as well as other required patient management activities. This time is exclusive of all separately billable procedures, and teaching time and separate from and in addition to any other critical care service time. Thank you for allowing us to participate in the care of this patient. Please refer to my attending physician's documentation for any further recommendations. (2) Metabolic alkalosis: (3) Hypomagnesemia: (4) DVT prophylaxis: (5) DMII (diabetes mellitus, type 2): (6) Altered mental status: (7) ANGE (generalized anxiety disorder): (8) HTN (hypertension): (9) Bipolar disorder: (10) Cardiac murmur: (11) Asthma: (12) Depression: (13) GERD (gastroesophageal reflux disease): Admission and Anticipated Discharge Date Admission Date: March 10, 2022 Subjective Patient seen and examined at bedside. No acute distress Patient is actively hallucinating. She is seen her children as well as ex-boyfriend. Denies any abdominal pain, no shortness of breath, no headache, no nausea, no vomiting Denies any headache. Review of Systems Review of Systems: All systems reviewed & are unremarkable except as noted in Subjective Physical Exam Physical Exam: Constitutional: No acute distress HEENT: EOMI, PERRLA Respiratory system: Good air entry bilaterally, no wheeze, rhonchi, no crackles CVS: S1-S2 positive, no murmurs or gallops Abdomen: Soft, nontender, nondistended, positive bowel sounds x4 Extremities: +2 pulses bilaterally radialis/ dorsalis pedis, no cyanosis, no edema Neuro: Awake alert oriented x3 Psych: Normal mood and affect G/U: No Reed Skin: no rashes, warm and dry Lymphatic: no cervical or axillary lymphadenopathy Results & Data Results & Data ([facility]) Vital Signs (Past 12 Hours) Vital Signs Temp Pulse Pulse Resp BP BP Pulse Ox 03/11/22 07:00 91 H 19 94 03/11/22 06:54 125/91 03/11/22 06:54 88 17 03/11/22 06:30 91 H 16 03/11/22 06:01 118/88 03/11/22 06:01 85 17 03/11/22 06:00 87 20 03/11/22 05:30 91 H 24 03/11/22 07:14 36.4 C L 03/11/22 05:00 93 H 22 03/11/22 05:00 111/84 03/11/22 04:50 94 H 23 03/11/22 04:40 92 H 19 03/11/22 04:30 99 H 19 03/11/22 04:20 90 13 03/11/22 04:10 98 H 29 H 03/11/22 04:01 132/93 03/11/22 04:01 95 H 29 H 03/11/22 04:00 93 H 14 03/11/22 03:50 103 H 19 03/11/22 03:40 96 H 21 03/11/22 03:30 110 H 20 03/11/22 03:20 96 H 19 03/11/22 03:10 102 H 24 03/11/22 03:53 36.5 C 03/11/22 03:00 126/87 03/11/22 03:00 99 H 18 03/11/22 02:50 94 H 19 03/11/22 02:40 93 H 16 03/11/22 02:30 86 12 03/11/22 02:20 85 13 03/11/22 02:10 87 23 03/11/22 02:02 133/113 H 03/11/22 02:02 87 13 03/11/22 02:00 88 21 03/11/22 01:50 94 H 19 03/11/22 01:40 87 24 03/11/22 01:30 90 11 L 03/11/22 01:20 86 18 03/11/22 01:10 101 H 20 92 03/11/22 01:00 99 H 13 97 03/11/22 01:00 136/97 03/11/22 00:50 92 H 21 98 03/11/22 00:40 94 H 17 95 03/11/22 00:30 87 96 03/11/22 00:20 86 19 97 03/11/22 00:10 93 H 17 97 03/11/22 00:00 93 H 24 98 03/11/22 00:00 126/103 H 03/10/22 23:50 91 H 22 95 03/10/22 23:45 90 03/10/22 23:40 93 H 19 94 03/10/22 23:30 93 H 20 95 03/10/22 23:20 100 H 17 96 03/10/22 23:10 96 H 24 98 03/10/22 23:00 97 H 21 94 03/10/22 23:00 130/95 03/10/22 22:50 95 H 26 H 96 03/10/22 22:40 97 H 13 98 03/10/22 22:30 103 H 18 98 03/10/22 22:20 96 H 12 97 03/10/22 22:10 95 H 16 99 03/10/22 22:00 96 H 21 99 03/10/22 22:00 128/92 03/10/22 21:50 99 H 20 97 03/10/22 21:40 100 H 19 97 03/10/22 21:30 86 21 96 03/10/22 21:50 85 03/10/22 21:20 85 19 98 03/10/22 21:10 84 20 98 03/10/22 21:05 146/107 H 03/10/22 21:05 86 22 97 03/10/22 21:00 92 H 20 98 03/10/22 20:50 90 20 95 03/10/22 20:40 88 23 96 03/10/22 20:30 84 21 97 03/10/22 20:20 81 17 97 03/10/22 20:10 89 21 96 03/10/22 20:00 89 21 100 03/10/22 19:52 113 H 21 03/10/22 19:40 87 18 97 03/10/22 20:18 37 C 85 16 146/99 H 97 O2 Del Method 03/11/22 07:00 Room Air 03/11/22 06:54 03/11/22 06:54 03/11/22 06:30 03/11/22 06:01 03/11/22 06:01 03/11/22 06:00 03/11/22 05:30 03/11/22 07:14 03/11/22 05:00 03/11/22 05:00 03/11/22 04:50 03/11/22 04:40 03/11/22 04:30 03/11/22 04:20 03/11/22 04:10 03/11/22 04:01 03/11/22 04:01 03/11/22 04:00 03/11/22 03:50 03/11/22 03:40 03/11/22 03:30 03/11/22 03:20 03/11/22 03:10 03/11/22 03:53 03/11/22 03:00 03/11/22 03:00 03/11/22 02:50 03/11/22 02:40 03/11/22 02:30 03/11/22 02:20 03/11/22 02:10 03/11/22 02:02 03/11/22 02:02 03/11/22 02:00 03/11/22 01:50 03/11/22 01:40 03/11/22 01:30 03/11/22 01:20 03/11/22 01:10 03/11/22 01:00 03/11/22 01:00 03/11/22 00:50 03/11/22 00:40 03/11/22 00:30 03/11/22 00:20 03/11/22 00:10 03/11/22 00:00 03/11/22 00:00 03/10/22 23:50 03/10/22 23:45 03/10/22 23:40 03/10/22 23:30 03/10/22 23:20 03/10/22 23:10 03/10/22 23:00 03/10/22 23:00 03/10/22 22:50 03/10/22 22:40 03/10/22 22:30 03/10/22 22:20 03/10/22 22:10 03/10/22 22:00 03/10/22 22:00 03/10/22 21:50 03/10/22 21:40 03/10/22 21:30 03/10/22 21:50 03/10/22 21:20 03/10/22 21:10 03/10/22 21:05 03/10/22 21:05 03/10/22 21:00 03/10/22 20:50 03/10/22 20:40 03/10/22 20:30 03/10/22 20:20 03/10/22 20:10 03/10/22 20:00 03/10/22 19:52 03/10/22 19:40 03/10/22 20:18 Room Air Laboratory Results 03/11/22 03:32 03/11/22 03:32 Coding Level of Care Code Critical Care 1st 30-74 mins Diagnoses Acute hyponatremia E87.1 Metabolic alkalosis E87.3 Hypomagnesemia E83.42 DVT prophylaxis Z29.9 DMII (diabetes mellitus, type 2) E11.9 Altered mental status R41.82 ANGE (generalized anxiety disorder) F41.1 HTN (hypertension) I10 Bipolar disorder F31.9 Cardiac murmur R01.1 Asthma J45.40 Asthma complication type: uncomplicated Asthma persistence: persistent Asthma severity: moderate Depression F32.9 Depression Type: unspecified GERD (gastroesophageal reflux disease) K21.9 Time Spent (min) 38 (1) Depression Depression Type: unspecified Qualified Code(s): F32.9 - Major depressive disorder, single episode, unspecified (2) Asthma Asthma complication type: uncomplicated Asthma persistence: persistent Asthma severity: moderate Qualified Code(s): J45.40 - Moderate persistent asthma, uncomplicated
[2022-03-11 07:49] LABS: Albumin Level 3.7 gm/dl (3.4-5.0); Bilirubin Direct 0.2 mg/dl (0-0.2); Bilirubin,Total 0.9 mg/dl (0.2-1.0); Total Protein 6.8 gm/dl (6.0-8.3)
[2022-03-11 08:35] LABS: BUN Creatinine Ratio 26.3 (10-20); Calcium 7.9 mg/dl (8.5-10.1); Est GFR (African American) 139.2 ml/min; Est GFR (Non-African American) 120.1 ml/min; Potassium 3.6 mmol/L (3.5-5.1)
[2022-03-11] MEDS: INSULIN ASPART PER UNIT SC SCH ×4 (10:38→21:13)
[2022-03-11] MEDS: FLUTICASONE/VILANTEROL 200/25MCG 14 PUFFS/INHALER INH SCH (10:40)
[2022-03-11] MEDS: FAMOTIDINE 20 MG TAB PO SCH (10:40)
--- NOTE | 2022-03-11 10:52 | Pharmacy Report ---
Pharmacy Glycemic Short Note 2 - Date of Service March 11, 2022 - Glycemic Short BSG Results (Last 24 hours): 03/10/22 03/10/22 03/10/22 15:50 17:52 19:48 Glucose 381 H* 267 H POC Glucose 287 H 03/10/22 03/10/22 03/11/22 20:01 23:06 01:16 Glucose 233 H 58 L POC Glucose 161 H 03/11/22 03/11/22 03/11/22 01:59 03:32 07:57 Glucose 77 190 H POC Glucose 281 H OUTPATIENT ANTIDIABETIC REGIMEN: * Lispro PRN based upon blood sugar "doesn't use often" * A1c = pending ASSESSMENT: * Patient w/ reported h/o T2DM admitted to ICU for mental status changes, delusions, severe hyponatremia * BSGs were elevated on presentation, then quickly dropped, only to rebound again into the 200s. Fluctuations in BSGs likely related to D5 infusions administered to halt rapid climb in serum Na. * Given pending A1c results, uncertain home insulin regimen and BSGs fluctuating between hyper and hypoglycemia, will provide only Novolog insulin at this time in the form of low dose correction and low dose prandial coverage until a more BSG data is collected to help guide treatment decisions. PLAN FOR INPATIENT GLYCEMIC CONTROL: * Hold outpatient oral diabetes medications * Basal insulin * none at this time * Bolus insulin * NovoLog per scale ACHS or Q6hrs while NPO * Goal Range: Low 120 mg/dL - High 150 mg/dL * Correction Factor: 40 mg/dL/unit * Nutritional / Prandial insulin per carb ratio of 1 unit per 25 grams CHO consumed
[2022-03-11 10:59] LABS: Estimated Average Glucose 174 mg/dl; Hemoglobin A1C 7.7 % (4.5-5.6)
[2022-03-11 11:05] LABS: Chol HDL Ratio 2.2 (0-5)
[2022-03-11] MEDS: ENOXAPARIN INJ 30 MG/0.3 ML SYR SQ SCH (11:15)
--- NOTE | 2022-03-11 12:05 | Psychiatric Consultation ---
Date of Consultation March 11, 2022 Impression / Recommendations Impression 36 yo woman with history of BPAD/unspecified mood disorder, alcohol use disorder, severe and frequent pancreatitis admitted for altered mental status. Presentation seems most consistent with hyperactive delirium, strong suspicion for delirium tremens in setting of alcohol withdrawal though could be from electrolyte abnormalities. During her previous presentation in July 2021 she presented similarly with possible concern for acute kevyn but her lability and symptoms resolved as the alcohol withdrawal delirium cleared. She does have a history of BPAD vs unspecified mood disorder and we will consider restarting a mood stabilizer once delirium improves and QTc normalizes. For now agree with holding her prior to admission psychiatric medication. Would place on AWSS and use lorazepam. (1) Delirium due to multiple etiologies: (2) Alcohol withdrawal delirium: (3) Acute hyponatremia: (4) Bipolar disorder: (5) Alcohol use disorder: Plan -AWSS, folic acid, thiamine and lorazepam, monitor to ensure no worsening of delirium with benzos -Hold all prior to admission psych meds given recent non-adherence and prolonged QTc -Does not have decision making capacity to leave AMA due to acute delirium -psych liason to get recent records from [facility] for further collateral regarding recent substance use Risk Factors Assessment Do You Have Access To A Gun?: No Psych History Identifying Data 36 yo woman with history of BPAD, alcohol use, recurrent pancreatitis admitted medically for altered mental status with visual hallucinations. Psychiatry consulted for recommendations. Chief Complaint "See Darek Kenney, he's right here holding my hand". History of Present Illness Yete is known to me from previous psychiatric consultation in July 2021 and brief admission to inpatient psychiatry at that time. Chart reviewed she presented to the emergency department with reports that her ex- had been setting her up and dressing her children and camouflage to get her in trouble. It seems that her neighbors called police due to concern that she was walking on their property and leaving food on their porch. She recalls leaving food on neighbors porches stating that she did this because "my daughter wanted to eat over there". Her presentation in July 2021 was similar with initial symptoms concerning for acute withdrawal delirium from alcohol with paranoia and coherent thought process and responding to internal stimuli. At that time her mood symptoms and mental status improved after approximately 5 to 7 days of treatment for alcohol withdrawal and pancreatitis which emerged toward the end of her stay. Today she is seen in the ICU where she is sitting in bed and observed to be moving around frequently and pulling at her IV site. She recalls me from her previous visit and knows that I am with psychiatry that when asked where we are meeting states "your office" but she is oriented to month and year. Her thought process is notable for significant flight of ideas, paranoia and ongoing visual hallucinations. She states at one point that she sees the celebrity roldan Darek Lyle standing behind her hospital bed and points to a plastic tubing valiente as evidence of his hand that is holding hers. She also at one point gestures behind her stating that her daughter is there and quickly moves on to another topic rapidly. At one point seems to get me confused with her mother stating that she is hearing her mother's voice and referencing me as though I am such. He states she has been following with her outpatient therapist at [facility] and that they were talking about the Vivitrol shot at some point. She gives us permission to speak with Talisha at [facility] cannot recall when she was last seen there thinks may be in early February versus October. States she stopped taking her Abilify with the last prescription about 2 months ago but then tells me she took it yesterday. Says she last drank alcohol "maybe a few days ago" and clarifies "1-1/2 weeks ago" stating she drank vodka and rum as mixed drinks. When asked for quantity she states "7 or 8 or more who knows maybe I spilled some". She declines offers to have us reach out to any other family members or support. She is easily distracted throughout and towards the end of the conversation becomes focused on getting reconnected to her bus monitor and politely dismisses us. Past Psychiatric History Previous Psych History: see subjective-history of BPAD, given periods of elevated mood outside of alcohol use, though difficult to clearly delineate. History significant alcohol use. Previous Psych Admissions: [facility] for 1 day 08/06/2021-08/07/2021 Do You Have Access To A Gun?: No History of Previous Suicide Attempt: No Past Medication Trials: multiple-SSRI, Wellbutrin, Effexor, Buspar, Vilazodone, most recently low dose abilify Allergies Allergy/AdvReac Type Severity Reaction Status Date / Time bee venom protein (honey bee) Allergy Severe ANAPHYLAXIS Verified 02/11/22 07:20 Home Medications Medication Instructions Recorded Confirmed Type thiamine HCl (vitamin B1) 100 mg 100 mg PO QAM #30 tabs 08/16/21 03/10/22 Rx tablet (Vitamin B-1) aripiprazole 5 mg tablet (Abilify) 5 mg PO QAM 10/06/21 03/10/22 History baclofen 10 mg tablet 10 mg PO AMHS 10/06/21 03/10/22 History trazodone 50 mg tablet 50 mg PO HS PRN Insomnia 10/06/21 03/10/22 History buspirone 5 mg tablet 5 mg PO BID PRN Anxiety 11/18/21 03/10/22 History cyclobenzaprine 5 mg tablet 5 mg PO BID PRN Muscle Spasm 11/18/21 03/10/22 History epinephrine 0.3 mg/0.3 mL 0.3 mg IM UD PRN Allergic Reaction 11/18/21 03/10/22 History injection, auto-injector fluticasone 250 mcg-salmeterol 50 1 inh inhalation BID PRN Shortness 11/18/21 03/10/22 History mcg/dose blistr powdr for Of Breath inhalation (Advair Diskus) hydroxyzine HCl 50 mg tablet 50 mg PO BID PRN Anxiety 11/18/21 03/10/22 History insulin lispro 100 unit/mL See Rx Instructions .Route .COMPLEX 11/18/21 03/10/22 History subcutaneous solution levocetirizine 5 mg tablet (24HR 5 mg PO HS 11/18/21 03/10/22 History Allergy Relief) ondansetron 4 mg disintegrating 4 mg PO DAILY PRN nausea and 11/21/21 03/10/22 Rx tablet vomiting #30 tabs polyethylene glycol 3350 17 17 g PO DAILY constipation #119 11/21/21 03/10/22 Rx gram/dose oral powder (Miralax) grams sodium phosphates 19 gram-7 118 ml MT DAILY PRN constipation 11/21/21 03/10/22 Rx gram/118 mL enema (Enema) #931 mL Medical Marijuana 1 dose inhalation HS PRN Sleep 02/08/22 03/10/22 History magnesium oxide 400 mg (241.3 mg 400 mg PO QAM 02/08/22 03/10/22 History magnesium) tablet celecoxib 100 mg capsule (Celebrex) 100 mg PO BID PRN pain 02/11/22 03/10/22 History pantoprazole 40 mg tablet,delayed 40 mg PO BID 02/11/22 03/10/22 History release (Protonix) Family History adopted Substance Abuse History significant history of alcohol use with prior DUIs, complicated alcohol withdrawal, legal repercussions of lose of custody her children, and hx pancreatitis multiple times Personal History Living Arrangements: Home Highest Grade Completed: College Number Of Children: 2 young children, ex- has fully custody Beliefs That Will Affect Care: None Patient History Medical History Alcohol use disorder, moderate, dependence denies Anxiety H/O Asthma Cardiac murmur no significant valvular disease on 08/20/2019 echo Choledocholithiasis Depression H/O Diabetes IDDM ANGE (generalized anxiety disorder) GERD (gastroesophageal reflux disease) R/T Gestational diabetes History of pancreatitis HTN (hypertension) no meds Pancreatitis Post traumatic stress disorder (PTSD) Scoliosis MINOR Vomiting Surgical History History of adenoidectomy History of section x 2 History of ERCP History of tonsillectomy Family History Other Adopted Social History Smoking Status: Light tobacco smoker Tobacco Type: Cigarettes Cigarettes Per Day: 1; Second Hand Exposure: No; Do You Dip or Chew Tobacco: No; Hx Alcohol Use: Yes Alcohol type: wine and hard liquor Hx Substance Use: Yes Prescribed Medications: Marijuana Last Used Substance: Just Prior to Arrival Last Used Substance Other:: reports last used on 11/17/21 Substance Use Type Other:: medical marijuana Preferred Language: Comoran 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: Effective Outpatient Case Manager Required: No Beliefs That Will Affect Care: None Current Living Situation: Alone Current Living Situation Comment: with kids Feels Safe at Home: Yes Safety Concerns: Feels Safe At This Time Assistive Devices: None Physical Exam Psychiatric: Orientation: alert and oriented to time; + not oriented to place Apperance: appropriately dressed and + disheveled Eye Contact: + fair eye contact Motor Behavior: + psychomotor agitation Speech: + abnormal rate/rhythm/volume of speech (fast but easy to interrupt) Affect: + labile affect and + elated affect Mood: no depressed mood and no anxious mood Thought Process: + flight of ideas and + looseness of associations Thought Content: + delusions Suicidal Thoughts: denies suicidal thoughts Homicidal Thoughts: denies homicidal thoughts Hallucinations: + auditory hallucinations and + visual hallucinations (seeing celebrities in the room, sees her daughter in the room) Cognition: remote memory grossly intact and language grossly intact; + recent memory not intact and + attention not intact Estimated Intelligence: consistent with education level Insight: + severely impaired insight Judgement: + severely impaired judgement Vital Signs (Past 24 Hours): Last Vital Signs Temp 36.4 C L 03/11/22 07:14 Pulse 91 H 03/11/22 07:00 Resp 19 03/11/22 07:00 BP 125/91 03/11/22 06:54 Pulse Ox 94 03/11/22 07:00 O2 Del Method 03/11/22 07:00 Review of Systems All systems reviewed & are unremarkable except as noted in HPI & below (states her hair was recently falling out ) Results & Data ([facility]) Laboratory Results electrolyte abnormalities, prolonged QTc Medications Administered Acetaminophen (Acetaminophen 325 Mg Tab) 650 mg PO Q4H PRN PRN Reason: Pain Stop: 04/10/22 06:06 Last Admin: 03/11/22 06:17 Dose: 650 mg Documented By: CP Enoxaparin Sodium (Enoxaparin Inj 30 Mg/0.3 Ml Syr) 30 mg SQ Q24H GEOVANNA Stop: 04/10/22 10:59 Last Admin: 03/11/22 11:15 Dose: Not Given Documented By: CAM Famotidine (Famotidine 20 Mg Tab) 20 mg PO QAM GEOVANNA Stop: 04/10/22 08:59 Last Admin: 03/11/22 10:40 Dose: 20 mg Documented By: CAM Fluticasone/Vilanterol (Fluticasone/Vilanterol 200/25mcg 14 Puffs/Inhaler) 1 puffs INH DAILY GEOVANNA; Protocol Stop: 04/10/22 08:59 Last Admin: 03/11/22 10:40 Dose: 1 puffs Documented By: MITZI Insulin Aspart (Insulin Aspart Per Unit) 0 units SC ACHS GEOVANNA Stop: 04/09/22 20:59 Last Admin: 03/11/22 10:38 Dose: 1 units Documented By: MITZI Co-signed By: LEONID Admin: 03/10/22 21:18 Dose: 4 units Documented By: PAM Co-signed By: MARYSE Coding Level of Care Code 98317 Inpt Consult Level 3 Diagnoses Delirium due to multiple etiologies F05 Alcohol withdrawal delirium F10.931 Acute hyponatremia E87.1 Bipolar disorder F31.9 Alcohol use disorder
--- NOTE | 2022-03-11 12:17 | Nephrology Consultation ---
Date of Consultation March 11, 2022 Assessment & Plan (1) Acute hyponatremia: Patient with hyponatremia due to syndrome of inappropriate ADH. Urine osmolality of 201 and urine sodium of 27. Admission sodium was 117 on 03/10/2022 at 3 PM. Sodium is now at 123. Target rate of correction is 6 in 24 hours. -Sodium is correcting appropriately. -Fluid restriction of 1.5 L daily. -We can start urea tomorrow. (2) Hypokalemia: Patient admitted with hypokalemia of 2.3. Potassium was increased to 3.6 today. Continue to monitor and supplement as needed. History of Present Illness Reason for Consultation: Hyponatremia Requesting Physician: Kamille Hansen MD Attending Physician: Kamille Hansen MD History of Present Illness This is a 36-year-old female with history of bipolar affective disorder, chronic alcohol abuse and pancreatitis was admitted with altered mental status found to have severe electrolyte imbalance including sodium of 117, potassium of 2.3 hyperglycemia and metabolic alkalosis. Sodium has corrected to 123 this morning after receiving 3% saline and DDAVP. Patient remains delirious with visual hallucinations. She however gives a coherent history. She is originally from [facility], has 2 children aged 3 and 6. Children are reportedly with ex- boyfriend. She reports drinking about 40 bottles of water daily. She is trying to quit alcohol. 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 Allergies Allergy/AdvReac Type Severity Reaction Status Date / Time bee venom protein (honey bee) Allergy Severe ANAPHYLAXIS Verified 02/11/22 07:20 Home Medications Medication Instructions Recorded Confirmed Type thiamine HCl (vitamin B1) 100 mg 100 mg PO QAM #30 tabs 08/16/21 03/10/22 Rx tablet (Vitamin B-1) aripiprazole 5 mg tablet (Abilify) 5 mg PO QAM 10/06/21 03/10/22 History baclofen 10 mg tablet 10 mg PO AMHS 10/06/21 03/10/22 History trazodone 50 mg tablet 50 mg PO HS PRN Insomnia 10/06/21 03/10/22 History buspirone 5 mg tablet 5 mg PO BID PRN Anxiety 11/18/21 03/10/22 History cyclobenzaprine 5 mg tablet 5 mg PO BID PRN Muscle Spasm 11/18/21 03/10/22 History epinephrine 0.3 mg/0.3 mL 0.3 mg IM UD PRN Allergic Reaction 11/18/21 03/10/22 History injection, auto-injector fluticasone 250 mcg-salmeterol 50 1 inh inhalation BID PRN Shortness 11/18/21 03/10/22 History mcg/dose blistr powdr for Of Breath inhalation (Advair Diskus) hydroxyzine HCl 50 mg tablet 50 mg PO BID PRN Anxiety 11/18/21 03/10/22 History insulin lispro 100 unit/mL See Rx Instructions .Route .COMPLEX 11/18/21 03/10/22 History subcutaneous solution levocetirizine 5 mg tablet (24HR 5 mg PO HS 11/18/21 03/10/22 History Allergy Relief) ondansetron 4 mg disintegrating 4 mg PO DAILY PRN nausea and 11/21/21 03/10/22 Rx tablet vomiting #30 tabs polyethylene glycol 3350 17 17 g PO DAILY constipation #119 11/21/21 03/10/22 Rx gram/dose oral powder (Miralax) grams sodium phosphates 19 gram-7 118 ml FL DAILY PRN constipation 11/21/21 03/10/22 Rx gram/118 mL enema (Enema) #931 mL Medical Marijuana 1 dose inhalation HS PRN Sleep 02/08/22 03/10/22 History magnesium oxide 400 mg (241.3 mg 400 mg PO QAM 02/08/22 03/10/22 History magnesium) tablet celecoxib 100 mg capsule (Celebrex) 100 mg PO BID PRN pain 02/11/22 03/10/22 History pantoprazole 40 mg tablet,delayed 40 mg PO BID 02/11/22 03/10/22 History release (Protonix) Patient History Medical History Alcohol use disorder, moderate, dependence denies Anxiety H/O Asthma Cardiac murmur no significant valvular disease on 08/20/2019 echo Choledocholithiasis Depression H/O Diabetes IDDM ANGE (generalized anxiety disorder) GERD (gastroesophageal reflux disease) R/T Gestational diabetes History of pancreatitis HTN (hypertension) no meds Pancreatitis Post traumatic stress disorder (PTSD) Scoliosis MINOR Vomiting Surgical History History of adenoidectomy History of section x 2 History of ERCP History of tonsillectomy Family History Other Adopted Social History Smoking Status: Light tobacco smoker Tobacco Type: Cigarettes Cigarettes Per Day: 1; Second Hand Exposure: No; Do You Dip or Chew Tobacco: No; Hx Alcohol Use: Yes Alcohol type: wine and hard liquor Hx Substance Use: Yes Prescribed Medications: Marijuana Last Used Substance: Just Prior to Arrival Last Used Substance Other:: reports last used on 11/17/21 Substance Use Type Other:: medical marijuana Preferred Language: Danish 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: Effective Inspector [employer] Required: No Beliefs That Will Affect Care: None Current Living Situation: Alone Current Living Situation Comment: with kids Feels Safe at Home: Yes Safety Concerns: Feels Safe At This Time Assistive Devices: None Review of Systems Review of Systems: All other systems were reviewed and negative except as noted in HPI Physical Exam Physical Exam: General exam: Appears comfortable, no acute distress HEENT: Pupils are equal and reactive to light Neck: No JVD, neck is supple trachea is midline Respiratory system: Clear breath sounds bilaterally. Gastrointestinal: Abdomen is soft, non distended, non tender, bowel sounds are present CVS: Regular rate and rhythm. No murmurs, rubs or gallops Musculoskeletal: No joint or muscle tenderness Extremities: Non tender, no edema, peripheral pulses are present Neuro: Oriented, no tremors, no focal neurological deficits Skin: No rashes Psychiatric: She has visual hallucinations Results & Data ([facility]) Vital Signs (Past 12 Hours) Vital Signs Temp Pulse Resp BP Pulse Ox O2 Del Method 03/11/22 11:20 99 H 22 03/11/22 11:19 148/94 H 03/11/22 11:19 95 H 20 99 Room Air 03/11/22 11:15 105 H 25 H 03/11/22 11:57 36.7 C 03/11/22 07:00 91 H 19 94 Room Air 03/11/22 06:54 125/91 03/11/22 06:54 88 17 03/11/22 06:30 91 H 16 03/11/22 06:01 118/88 03/11/22 06:01 85 17 03/11/22 06:00 87 20 07/29/22 05:30 91 H 24 03/11/22 07:14 36.4 C L 03/11/22 05:00 93 H 22 03/11/22 05:00 111/84 03/11/22 04:50 94 H 23 03/11/22 04:40 92 H 19 03/11/22 04:30 99 H 19 03/11/22 04:20 90 13 03/11/22 04:10 98 H 29 H 03/11/22 04:01 132/93 03/11/22 04:01 95 H 29 H 03/11/22 04:00 93 H 14 03/11/22 03:50 103 H 19 03/11/22 03:40 96 H 21 03/11/22 03:30 110 H 20 03/11/22 03:20 96 H 19 03/11/22 03:10 102 H 24 03/11/22 03:53 36.5 C 03/11/22 03:00 126/87 03/11/22 03:00 99 H 18 03/11/22 02:50 94 H 19 03/11/22 02:40 93 H 16 03/11/22 02:30 86 12 03/11/22 02:20 85 13 03/11/22 02:10 87 23 03/11/22 02:02 133/113 H 03/11/22 02:02 87 13 03/11/22 02:00 88 21 03/11/22 01:50 94 H 19 03/11/22 01:40 87 24 03/11/22 01:30 90 11 L 03/11/22 01:20 86 18 03/11/22 01:10 101 H 20 92 03/11/22 01:00 99 H 13 97 03/11/22 01:00 136/97 03/11/22 00:50 92 H 21 98 03/11/22 00:40 94 H 17 95 03/11/22 00:30 87 96 03/11/22 00:20 86 19 97 Laboratory Results 03/10/22 03/10/22 03/10/22 15:50 15:50 17:52 WBC 11.30 H RBC 4.55 MCV 80.9 MCH 29.0 MCHC 35.9 RDW Std Deviation 38.5 RDW Coeff of Arnold 13.2 Plt Count 197 MPV 10.7 Phosphorus Albumin 4.3 3.8 03/10/22 03/11/22 03/11/22 17:52 03:32 03:32 WBC 9.57 RBC 4.09 MCV 81.7 MCH 29.1 MCHC 35.6 RDW Std Deviation 39.5 RDW Coeff of Arnold 13.2 Plt Count 164 MPV 11.5 Phosphorus 2.2 L 3.9 D Albumin 3.7
[2022-03-11 12:26] LABS: BUN Creatinine Ratio 25.9 (10-20); Calcium 8.5 mg/dl (8.5-10.1); Creatinine Clr Calc Pharmacy 102.2 ml/min; Est GFR (African American) 138.4 ml/min; Est GFR (Non-African American) 119.4 ml/min; Potassium 3.4 mmol/L (3.5-5.1)
[2022-03-11] MEDS ORDERED: Ativan IV Alcohol Withdrawal--Active Protocol IV PRN (12:57)
[2022-03-11] MEDS ORDERED: LORazepam 3 MG in SYRINGE 1.5 ML IV PRN (12:57)
[2022-03-11] MEDS ORDERED: LORazepam 1 MG TAB PO PRN (12:57)
[2022-03-11] MEDS ORDERED: LORazepam 2 MG/1 ML VIAL ONE (13:23)
[2022-03-11] MEDS: LORazepam 1 MG in SYRINGE 0.5 ML IV PRN ×2 (13:24→17:19)
[2022-03-11] MEDS: THIAMINE HCL 100 MG TAB PO SCH (14:35)
[2022-03-11] MEDS: FOLIC ACID 1 MG TAB PO SCH (14:35)
--- NOTE | 2022-03-11 16:19 | Hospitalist Progress Note ---
Date of Service March 11, 2022 Assessment & Plan (1) Altered mental status: (2) Acute hyponatremia: Plan 36-year-old lady with PMH of anxiety, depression, ADHD, bipolar disorder, IDDM, recurrent pancreatitis, choledocholithiasis, pancreatic pseudocyst, alcohol abuse, tobacco abuse presented to the ED 03/10 by the police after neighbors found her to be hallucinating on the porch. She is being managed for the following: Acute hyponatremia, likely SIADH: Hyponatremia with decreased serum osmolality with elevated urine osmolality. Acute metabolic encephalopathy Delirium due to multiple etiologies on the background of likely alcohol withdrawal delirium and existing bipolar disorder Prolonged QTC: Likely secondary to electrolyte abnormalities versus psychiatric meds versus both. Monitor QTC daily. Metabolic alkalosis Electrolyte abnormalities: Monitor and replete Patient presenting to ED 03/10 by police escort after her neighbors found her hallucinating on the porch Patient reports drinking 40 bottles of 16 ounce water every day and also reports drinking alcohol 2-3 times a week with about 5 to 7 glasses of mixed drinks. At presentation with several electrolytes derangement with sodium 117, potassium 2.3, magnesium 1.6 with ABG suggestive of metabolic alkalosis. Admitting UDS reviewed, positive for marijuana, Tylenol and salicylates negative. Metabolic encephalopathy multifactorial, psychogenic polydipsia playing a role as well. Patient under AWSS protocol. Monitor replete electrolytes, patient is oriented x3, patient with hallucination, patient is cooperative. Nephrology/ICU managing hyponatremia, appreciate recs. Patient being managed per ICU protocol. Will continue with folic acid, thiamine. Psychiatry on board, holding all prior admission psychiatric medication given recent nonadherence and prolonged QTC. Appreciate recommendations. History of bipolar disorder/ANGE/major depressive disorder: Psychiatry on board, appreciate recommendation. DM type II: A1c 6.8 on 08/03. Patient does not appear to be using insulin currently. manager aerospace consult when appropriate. On sliding scale while in hospital. DVT prophylaxis: SCDs Admission and Anticipated Discharge Date Admission Date: March 10, 2022 Subjective Patient seen and examined at bedside as a follow-up of altered mental status, metabolic alkalosis, acute hyponatremia and delirium due to multiple etiologies on the background of likely alcohol withdrawal delirium and existing bipolar disorder. Patient was sitting up in chair, on room air, hallucinating, occasional agitations but no aggressive behavior per RN, patient denies headache/dizziness/chest pain/sore throat/cough/other review of symptoms. Patient is oriented x3. Physical Exam Physical Exam: GENERAL: Awake and oriented x3. NAD, on RA. Hallucinations + HEENT: No pallor, no icterus. Pupils equal, round and reactive to light. Oral mucosa moist. NECK: No JVD, no neck masses. HEART: S1 and S2 heard. Regular rate and rhythm. No murmur, no gallop. RESPIRATORY SYSTEM: Normal AP diameter. No accessory muscle use. No wheezing, no crackles. ABDOMEN: Soft, bowel sounds present, nontender, no distention. CENTRAL NERVOUS SYSTEM: No facial droop. Speech is clear. Obeys simple commands. Moves extremities. EXTREMITIES: No edema, no erythema seen. Results & Data Results & Data ([facility]) Vital Signs (Past 12 Hours) Vital Signs Temp Pulse Resp BP Pulse Ox O2 Del Method 03/11/22 11:20 99 H 22 03/11/22 11:19 148/94 H 03/11/22 11:19 95 H 20 99 Room Air 03/11/22 11:15 105 H 25 H 03/11/22 11:57 36.7 C 03/11/22 07:00 91 H 19 94 Room Air 03/11/22 06:54 125/91 03/11/22 06:54 88 17 03/11/22 06:30 91 H 16 03/11/22 06:01 118/88 03/11/22 06:01 85 17 03/11/22 06:00 87 20 03/11/22 05:30 91 H 24 03/11/22 07:14 36.4 C L 03/11/22 05:00 93 H 22 03/11/22 05:00 111/84 03/11/22 04:50 94 H 23 03/11/22 04:40 92 H 19 03/11/22 04:30 99 H 19 03/11/22 04:20 90 13 03/11/22 04:10 98 H 29 H 03/11/22 04:01 132/93 03/11/22 04:01 95 H 29 H
[2022-03-11 16:21] LABS: BUN Creatinine Ratio 18.1 (10-20); Calcium 8.5 mg/dl (8.5-10.1); Creatinine Clr Calc Pharmacy 71.4 ml/min; Est GFR (African American) 105.9 ml/min; Est GFR (Non-African American) 91.4 ml/min; Potassium 4.6 mmol/L (3.5-5.1)
[2022-03-11] MEDS ORDERED: SODIUM CHLORIDE 0.9% 1000ML 1,000 ML IV SCH (19:15)
[2022-03-11 19:55] LABS: BUN Creatinine Ratio 30.6 (10-20); Calcium 8.3 mg/dl (8.5-10.1); Creatinine Clr Calc Pharmacy 95.6 ml/min; Est GFR (African American) 135.4 ml/min; Est GFR (Non-African American) 116.8 ml/min
--- NOTE | 2022-03-11 21:06 | Electrocardiogram Report ---
Test Reason : Blood Pressure : / mmHG Vent. Rate : 082 BPM Atrial Rate : 082 BPM P-R Int : 132 ms QRS Dur : 088 ms QT Int : 414 ms P-R-T Axes : 061 035 -21 degrees QTc Int : 483 ms Poor data quality, interpretation may be adversely affected Normal sinus rhythm Possible Left atrial enlargement Nonspecific T wave abnormality Abnormal ECG When compared with ECG of 10-MAR-2022 16:10, No significant change Confirmed by Flex Kasper ([id number]) on 03/11/2022 9:05:54 PM Referred By: REFERRED SELF Confirmed By:Flex Kasper
[2022-03-12 00:06] LABS: BUN Creatinine Ratio 32.6 (10-20); Calcium 7.8 mg/dl (8.5-10.1); Creatinine Clr Calc Pharmacy 128.8 ml/min; Est GFR (African American) 149.4 ml/min; Est GFR (Non-African American) 128.9 ml/min; Potassium 3.9 mmol/L (3.5-5.1)
[2022-03-12] MEDS: SODIUM CHLORIDE 3 % 500 ML IV SCH ×2 (00:30→12:09)
[2022-03-12 04:02] LABS: Anion Gap 5 (3-11); BUN Creatinine Ratio 29.3 (10-20); Blood Urea Nitrogen 12 mg/dl (6-23); Carbon Dioxide 30 mmol/L (21-32); Chloride 95 mmol/L (98-107); Creatinine Clr Calc Pharmacy 144.5 ml/min; Est GFR (African American) > 150.0 ml/min; Est GFR (Non-African American) 133.9 ml/min; Glucose 204 mg/dl (70-99(Fasting)); Potassium 3.8 mmol/L (3.5-5.1); Sodium 130 mmol/L (136-145)
[2022-03-12] MEDS ORDERED: DEXTROSE 5% 250 ML IV ONE (04:12)
[2022-03-12 07:34] LABS: Basophils # (auto) 0.02 K/uL (0-0.2); Basophils % (auto) 0.3 %; Eosinophils % (auto) 1.5 %; Hematocrit (blood only) 31.2 % (34.1-44.9); Hemoglobin 10.6 g/dl (12.0-16.0); Immature Granulocytes # (auto) 0.04 K/uL (0.00-0.02); Immature Granulocytes % (auto) 0.6 %; Lymphocytes # (auto) 1.54 K/uL (1.2-3.4); Lymphocytes % (auto) 22.8 %; Mean Corpuscular Hemoglobin 28.7 pg (25.0-34.0); Mean Corpuscular Volume 84.6 fL (80.0-100.0); Mean Platelet Volume 10.7 fL (9.4-12.3); Monocytes # (auto) 0.39 K/uL (0.24-0.82); Monocytes % (auto) 5.8 %; Neutrophils # (auto) 4.66 K/uL (1.4-6.5); Platelet Count 148 K/uL (130-400); RDW Coefficient of Variation 13.7 % (11.5-14.5); RDW Standard Deviation 42.5 fL (36.4-46.3); Red Blood Count 3.69 M/uL (3.93-5.22); White Blood Count 6.75 K/ul (4.8-10.8)
[2022-03-12 07:58] LABS: Anion Gap 5 (3-11); Blood Urea Nitrogen 10 mg/dl (6-23); Calcium 7.8 mg/dl (8.5-10.1); Carbon Dioxide 29 mmol/L (21-32); Chloride 95 mmol/L (98-107); Est GFR (African American) > 150.0 ml/min; Est GFR (Non-African American) 134.9 ml/min; Glucose 203 mg/dl (70-99(Fasting)); Potassium 3.8 mmol/L (3.5-5.1); Sodium 129 mmol/L (136-145)
[2022-03-12 08:01] LABS: Magnesium 1.9 mg/dl (1.7-2.4); Phosphorus 1.4 mg/dl (2.5-4.9)
[2022-03-12] MEDS ORDERED: POTASSIUM PHOS 3 MMOL/1 ML INFUSION IV STA (08:10)
[2022-03-12] MEDS ORDERED: POTASSIUM PHOSPHATE 30 MMOL in SODIUM CHLORIDE 0.9% 500 ML IV ONE (08:30)
[2022-03-12] MEDS: INSULIN ASPART PER UNIT SC SCH ×4 (08:37→19:46)
--- NOTE | 2022-03-12 09:08 | Critical Care Progress Note ---
Date of Service March 12, 2022 Assessment & Plan (1) Acute hyponatremia: Plan: Reason Critically Ill: 36-year-old female with severe symptomatic hyponatremia presents to the ICU after being found with sodium 117 and AMS. Neuro - Delirium Multifactorial patient does have psychiatric history on top of hyponatremia. Alcohol withdrawal might also be playing a role. UDS positive for marijuana EtOH negative. Acetaminophen and salicylates negative. CT head unremarkable. She does have a significantly prolonged QTC. We will hold home psych medicine for now. Psych has been consulted Cardiac - Prolonged QTC may be due to electrolyte abnormalities, patient also on SSRI. Continue to hold psych meds. Keep potassium greater than 4, magnesium greater than 2, phosphorus greater than 3 Respiratory - History of asthma no current symptoms. Continue Advair. DuoNeb as needed. Continuous monitoring pulse ox GI - Chronic pancreatitis patient with history of pancreatitis with recent admission for post ERCP pancreatitis. Lipase currently 500 and she is asymptomatic Likely chronic elevation of lipase. No need for active treatment GERDfamotidine RENAL/LYTES - Acute hypoosmolar hyponatremia (symptomatic)initial sodium 117. Corrected initial sodium 121. No seizures thus far. Serum osmolality 264, urine osmolality 201, urine sodium 27 Calculated serum osmolality 267. No osmolar gap Possibly psychogenic polydipsia versus SIADH. Continue to trend every 4. Nephrology on board TSH within normal limit Chest x-ray does not show any signs of infection or mass Metabolic alkalosis initial pH 7.64. Suspect this is due to severe electrolyte abnormalities versus enema use? (Patient denies use of laxatives) we will continue with fluid resuscitation and electrolyte repletion. Monitor closely - Strict I's and O's ENDO - DM type IIhyperglycemia improving. Continue with sliding scale. ICU hyperglycemic protocol HEME - H&H stable, monitor routine CBC ID - Urinary tract infection. E. coli greater than 100,000 colonies Unable to assess if patient is having any symptoms. We will treat with Rocephin for 5 days --Prophylaxis VTE: Lovenox GI: Pepcid Lines: Peripheral Diet: Water restriction 1L Plan: In/out: +1.4 L, no good urine output Chest x-ray from today does not show any signs of infection or mass Patient got 180 mEq of hypertonic saline as patient sodium was trending down. She also got 250 mL of D5 water following that. Will avoid giving hypertonic saline and/or D5 water for the time being. Goal sodium till 3 PM today would be 131-133 Follow-up random cortisol. Hypophosphatemia being replaced by K-Phos. Patient's urine is growing E. coli which is resistant to fluoroquinolones. Rocephin for 5 days Continue with [facility] protocol for alcohol withdrawal. Continue to monitor the patient in the ICU with one-to-one I have personally spent 35 minutes of critical care time in the direct management of this patient. This is a life/limb threatening event. This includes time spent evaluating patient, direct bedside care, chart review, placing orders, interpretation of diagnostic studies, discussion with consultants, patient, and family members, as well as other required patient management activities. This time is exclusive of all separately billable procedures, and teaching time and separate from and in addition to any other critical care service time. Thank you for allowing us to participate in the care of this patient. Please refer to my attending physician's documentation for any further recommendations. (2) Metabolic alkalosis: (3) Hypomagnesemia: (4) DVT prophylaxis: (5) DMII (diabetes mellitus, type 2): (6) Altered mental status: (7) ANGE (generalized anxiety disorder): (8) HTN (hypertension): (9) Bipolar disorder: (10) Cardiac murmur: (11) Asthma: (12) Depression: (13) GERD (gastroesophageal reflux disease): Admission and Anticipated Discharge Date Admission Date: March 10, 2022 Subjective Patient seen and examined at bedside. No acute distress. Overnight patient was little bit restless and she was given Ativan 3 mg. At the time of examination she was somnolent but answering few questions by nodding yes or no. Moving all extremities. Did complain of mild headache. No nausea or vomiting. No chest pain, no shortness of breath. No abdominal pain. Review of Systems Review of Systems: All systems reviewed & are unremarkable except as noted in Subjective Physical Exam Physical Exam: Constitutional: No acute distress HEENT: EOMI, PERRLA Respiratory system: Good air entry bilaterally, no wheeze, rhonchi, no crackles CVS: S1-S2 positive, no murmurs or gallops Abdomen: Soft, nontender, nondistended, positive bowel sounds x4 Extremities: +2 pulses bilaterally radialis/ dorsalis pedis, no cyanosis, no edema Neuro: Somnolent, nodding yes and no to few questions. moving all extremities. Psych: Normal mood and affect G/U: No Reed Skin: no rashes, warm and dry Lymphatic: no cervical or axillary lymphadenopathy Results & Data Results & Data ([facility]) Vital Signs (Past 12 Hours) Vital Signs Temp Pulse Resp BP Pulse Ox O2 Del Method 03/12/22 08:00 Room Air 03/12/22 08:00 Room Air 03/12/22 07:00 36.9 C 96 H 16 123/96 98 Room Air 03/12/22 04:00 36.6 C 93 H 20 126/88 100 Room Air 03/12/22 00:00 100 H 14 152/106 H 98 Room Air Laboratory Results 03/12/22 07:13 03/12/22 07:13 Coding Level of Care Code Critical Care 1st 30-74 mins Diagnoses Acute hyponatremia E87.1 Metabolic alkalosis E87.3 Hypomagnesemia E83.42 DVT prophylaxis Z29.9 DMII (diabetes mellitus, type 2) E11.9 Altered mental status R41.82 ANGE (generalized anxiety disorder) F41.1 HTN (hypertension) I10 Bipolar disorder F31.9 Cardiac murmur R01.1 Asthma J45.40 Asthma complication type: uncomplicated Asthma persistence: persistent Asthma severity: moderate Depression F32.9 Depression Type: unspecified GERD (gastroesophageal reflux disease) K21.9 Time Spent (min) 35 (1) Depression Depression Type: unspecified Qualified Code(s): F32.9 - Major depressive disorder, single episode, unspecified (2) Asthma Asthma complication type: uncomplicated Asthma persistence: persistent Asthma severity: moderate Qualified Code(s): J45.40 - Moderate persistent asthma, uncomplicated
--- NOTE | 2022-03-12 09:37 | XRay Report ---
XR chest 1V portable HISTORY: 36 years-old Female f/u acute shortness of breath COMPARISON: CTA chest 04/05/2021, acute abdominal series radiographs 08/19/2019 TECHNIQUE: Portable AP view of the chest FINDINGS: The cardiomediastinal and hilar silhouettes are within normal limits. The patient is mildly rotated. Mild convex right curvature of the midthoracic spine may be positional. No pneumothorax, pleural effu anton, airspace consolidation or overt pulmonary edema. Bones of the chest appear grossly intact. IMPRESSION: No acute process. ACT 112: Negative or not required by law. The above report was generated using voice recognition software. It may contain grammatical, syntax o r spelling errors. Electronically signed by: Pepe Lancaster M.D. 03/12/2022 9:35 AM
[2022-03-12] MEDS: FOLIC ACID 1 MG TAB PO SCH (11:08)
[2022-03-12] MEDS: FLUTICASONE/VILANTEROL 200/25MCG 14 PUFFS/INHALER INH SCH (11:08)
[2022-03-12] MEDS: THIAMINE HCL 100 MG TAB PO SCH (11:08)
[2022-03-12] MEDS: FAMOTIDINE 20 MG TAB PO SCH (11:20)
[2022-03-12 12:14] LABS: Anion Gap 6 (3-11); Blood Urea Nitrogen 9 mg/dl (6-23); Calcium 8.3 mg/dl (8.5-10.1); Carbon Dioxide 29 mmol/L (21-32); Chloride 98 mmol/L (98-107); Creatinine Clr Calc Pharmacy 141.5 ml/min; Est GFR (African American) > 150.0 ml/min; Est GFR (Non-African American) 133.9 ml/min; Glucose 78 mg/dl (70-99(Fasting)); Potassium 4.3 mmol/L (3.5-5.1); Sodium 133 mmol/L (136-145)
[2022-03-12] MEDS: ENOXAPARIN INJ 30 MG/0.3 ML SYR SQ SCH (12:19)
[2022-03-12] MEDS: PANTOprazole 40 MG TAB PO SCH (13:11)
--- NOTE | 2022-03-12 13:38 | Communication Note ---
Date of Service: March 12, 2022 patient known to me from previous admission, psych consult by Dr. Dye reviewed as well as interim progress. Sodium is improving, phos quite low this am and patient was less compliant with oral meds this am. Was sleeping during liaison rounds. Psych meds can certainly cause SIADH but unusual for sodium to be that low on relatively low dose of Zyprexa so alcohol abuse likely contributing. Will continue to follow.
[2022-03-12] MEDS: LORazepam 2 MG in SYRINGE 1 ML IV PRN ×3 (14:00→23:48)
[2022-03-12] MEDS ORDERED: DEXTROSE 5% 1,000 ML IV STA (14:39)
--- NOTE | 2022-03-12 14:43 | Nephrology Progress Note ---
Date of Service March 12, 2022 Assessment & Plan (1) Hypokalemia: Plan: Patient admitted with hypokalemia of 2.3. Potassium was increased to 3.6 today. Continue to monitor and supplement as needed. (2) Hyponatremia: Plan: hyponatremia due to polydipsia/low solute intake. Urine osmolality of 201 and urine sodium of 27; serum osms 264. Admission sodium was 117 on 03/10/2022 at 3 PM. Sodium is now at 133 as of 11 AM 03/12. Target rate of correction is 6 in 24 hours, so she is correcting too quickl; goal about 130 sNa this evening. High risk for complications of too rapid correction -no fluid limit for now -D5W at 200 mL/hr -recheck bmp ordered 1900 -agree w/ corrections of other chemistries including phos, mag Admission and Anticipated Discharge Date Admission Date: March 10, 2022 Subjective soem confusion earlier today but oriented x 2 when I saw her and asking appropriate questions.sodium corrected to 133 w/ 3% saline, D5W. no abd/chest/musculoskeletal pain, no n/v, no edema, Review of Systems Review of Systems: All systems reviewed & are unremarkable except as noted in Subjective Physical Exam Constitutional: well developed and well nourished Eyes: EOM intact bilaterally ENMT: Ears: no external ear abnormality Nose: no external nose abnormality Mouth: + dry oral mucous membranes Neck: no nuchal rigidity Respiratory: normal respiratory effort Auscultation: + diminished lung sounds Cardiovascular: Rate/Rhythm: regular rate and regular rhythm Extremities: no edema Gastrointestinal (Abdomen): Inspection/Auscultation: normal bowel sounds Percussion/Palpation: abdomen soft; abdomen nontender Musculoskeletal: Extremities: strength 5/5 throughout Skin: no rashes, warm and dry Neurologic: leal, fluent speech, no tremor Psychiatric: Orientation: oriented to person, oriented to place and cooperative Results & Data ([facility]) Vital Signs (Past 12 Hours) Vital Signs Temp Pulse Pulse Resp BP BP Pulse Ox 03/12/22 13:46 37.3 C 98 H 22 111/79 99 03/12/22 11:01 108 H 27 H 100 03/12/22 11:01 107/80 03/12/22 11:00 92 H 15 100 03/12/22 10:00 89 16 112/78 100 03/12/22 09:00 90 17 119/82 100 03/12/22 08:00 91 H 19 100 03/12/22 07:16 95 H 17 100 03/12/22 07:16 123/96 03/12/22 07:00 92 H 18 100 03/12/22 09:39 37.3 C 03/12/22 08:00 03/12/22 08:00 03/12/22 07:00 36.9 C 96 H 16 123/96 98 03/12/22 04:00 36.6 C 93 H 20 126/88 100 O2 Del Method 03/12/22 13:46 Room Air 03/12/22 11:01 03/12/22 11:01 03/12/22 11:00 03/12/22 10:00 03/12/22 09:00 03/12/22 08:00 03/12/22 07:16 03/12/22 07:16 03/12/22 07:00 03/12/22 09:39 03/12/22 08:00 Room Air 03/12/22 08:00 Room Air 03/12/22 07:00 Room Air 03/12/22 04:00 Room Air Laboratory Results 03/12/22 07:13 03/12/22 11:17
[2022-03-12] MEDS: MAGNESIUM OXIDE 400 MG TAB PO SCH ×2 (14:52→19:47)
[2022-03-12] MEDS: ACETAMINOPHEN 325 MG TAB PO PRN (15:27)
--- NOTE | 2022-03-12 15:34 | Hospitalist Progress Note ---
Date of Service March 12, 2022 Assessment & Plan (1) Altered mental status: (2) Acute hyponatremia: Plan 36-year-old lady with PMH of anxiety, depression, ADHD, bipolar disorder, IDDM, recurrent pancreatitis, choledocholithiasis, pancreatic pseudocyst, alcohol abuse, tobacco abuse presented to the ED 03/10 by the police after neighbors found her to be hallucinating on the porch. She is being managed for the following: Acute hyponatremia, likely SIADH vs Polydipsia/low solute intake: Hyponatremia with decreased serum osmolality with elevated urine osmolality. Acute metabolic encephalopathy Delirium due to multiple etiologies on the background of likely alcohol withdrawal delirium and existing bipolar disorder Prolonged QTC: Likely secondary to electrolyte abnormalities versus psychiatric meds versus both. Monitor QTC daily. Metabolic alkalosis Electrolyte abnormalities: Monitor and replete Patient presenting to ED 03/10 by police escort after her neighbors found her hallucinating on the porch Patient reports drinking 40 bottles of 16 ounce water every day and also reports drinking alcohol 2-3 times a week with about 5 to 7 glasses of mixed drinks. At presentation with several electrolytes derangement with sodium 117, potassium 2.3, magnesium 1.6 with ABG suggestive of metabolic alkalosis. Admitting UDS reviewed, positive for marijuana, Tylenol and salicylates negative. Metabolic encephalopathy multifactorial, psychogenic polydipsia playing a role as well. Patient under AWSS protocol. Monitor replete electrolytes, patient is oriented x3, patient with hallucination, patient is cooperative. Nephrology/ICU managing hyponatremia, appreciate recs. Patient being managed per ICU protocol. Will continue with folic acid, thiamine. Psychiatry on board, holding all prior admission psychiatric medication given recent nonadherence and prolonged QTC. Appreciate recommendations. E coli UTI: on rocephin 03/12 History of bipolar disorder/ANGE/major depressive disorder: Psychiatry on board, appreciate recommendation. DM type II: A1c 6.8 on 08/03. Patient does not appear to be using insulin currently. primary special educator consult when appropriate. On sliding scale while in hospital. DVT prophylaxis: SCDs Full Code Admission and Anticipated Discharge Date Admission Date: March 10, 2022 Subjective Patient seen and examined at bedside as a follow-up of altered mental status, metabolic alkalosis, acute hyponatremia and delirium due to multiple etiologies on the background of likely alcohol withdrawal delirium and existing bipolar disorder. Patient was lying semi-upright in bed, on room air, hallucinating, somewhat lethargic, no agitations per RN, patient denies headache/dizziness/chest p ain/sore throat/cough/other review of symptoms. Patient is oriented x3. Physical Exam Physical Exam: GENERAL: Awake and oriented x3. appears lethargic NAD, on RA. Hallucinations + HEENT: No pallor, no icterus. Pupils equal, round and reactive to light. Oral mucosa moist. NECK: No JVD, no neck masses. HEART: S1 and S2 heard. Regular rate and rhythm. No murmur, no gallop. RESPIRATORY SYSTEM: Normal AP diameter. No accessory muscle use. No wheezing, no crackles. ABDOMEN: Soft, bowel sounds present, nontender, no distention. CENTRAL NERVOUS SYSTEM: No facial droop. Speech is clear. Obeys simple commands. Moves extremities. EXTREMITIES: No edema, no erythema seen. Results & Data Results & Data ([facility]) Vital Signs (Past 12 Hours) Vital Signs Temp Pulse Pulse Resp BP BP Pulse Ox 03/12/22 14:58 37.3 C 89 20 121/82 96 03/12/22 13:46 37.3 C 98 H 22 111/79 99 03/12/22 11:01 108 H 27 H 100 03/12/22 11:01 107/80 03/12/22 11:00 92 H 15 100 03/12/22 10:00 89 16 112/78 100 03/12/22 09:00 90 17 119/82 100 03/12/22 08:00 91 H 19 100 03/12/22 07:16 95 H 17 100 03/12/22 07:16 123/96 03/12/22 07:00 92 H 18 100 03/12/22 09:39 37.3 C 03/12/22 08:00 03/12/22 08:00 03/12/22 07:00 36.9 C 96 H 16 123/96 98 03/12/22 04:00 36.6 C 93 H 20 126/88 100 O2 Del Method 03/12/22 14:58 Room Air 03/12/22 13:46 Room Air 03/12/22 11:01 03/12/22 11:01 03/12/22 11:00 03/12/22 10:00 03/12/22 09:00 03/12/22 08:00 03/12/22 07:16 03/12/22 07:16 03/12/22 07:00 03/12/22 09:39 03/12/22 08:00 Room Air 03/12/22 08:00 Room Air 03/12/22 07:00 Room Air 03/12/22 04:00 Room Air
[2022-03-12 19:34] LABS: Calcium 7.9 mg/dl (8.5-10.1); Est GFR (African American) 145.3 ml/min; Est GFR (Non-African American) 125.4 ml/min
[2022-03-13] MEDS ORDERED: INSULIN ASPART PER UNIT SC SCH (02:00)
[2022-03-13] MEDS: ACETAMINOPHEN 325 MG TAB PO PRN (05:06)
[2022-03-13 05:59] LABS: Basophils # (auto) 0.03 K/uL (0-0.2); Basophils % (auto) 0.3 %; Eosinophils % (auto) 3.3 %; Hematocrit (blood only) 28.6 % (34.1-44.9); Hemoglobin 9.7 g/dl (12.0-16.0); Immature Granulocytes # (auto) 0.06 K/uL (0.00-0.02); Immature Granulocytes % (auto) 0.7 %; Lymphocytes # (auto) 1.61 K/uL (1.2-3.4); Lymphocytes % (auto) 17.7 %; Mean Corpuscular Hemoglobin 29.4 pg (25.0-34.0); Mean Corpuscular Hgb Conc 33.9 g/dL (32.0-36.0); Mean Corpuscular Volume 86.7 fL (80.0-100.0); Mean Platelet Volume 10.6 fL (9.4-12.3); Monocytes % (auto) 5.5 %; Neutrophils # (auto) 6.61 K/uL (1.4-6.5); Neutrophils % (auto) 72.5 %; Platelet Count 187 K/uL (130-400); RDW Standard Deviation 44.6 fL (36.4-46.3); White Blood Count 9.11 K/ul (4.8-10.8)
[2022-03-13 06:23] LABS: Magnesium 1.5 mg/dl (1.7-2.4)
[2022-03-13] MEDS: PANTOprazole 40 MG TAB PO SCH (07:32)
[2022-03-13] MEDS: THIAMINE HCL 100 MG TAB PO SCH (07:32)
[2022-03-13] MEDS: FOLIC ACID 1 MG TAB PO SCH (07:32)
[2022-03-13] MEDS: FLUTICASONE/VILANTEROL 200/25MCG 14 PUFFS/INHALER INH SCH (07:33)
[2022-03-13] MEDS: MAGNESIUM OXIDE 400 MG TAB PO SCH ×2 (07:33→21:08)
[2022-03-13] MEDS: MAGNESIUM SULFATE / D5W 1 GM/100 ML BAG IV SCH ×3 (07:33→11:35)
[2022-03-13] MEDS: INSULIN ASPART PER UNIT SC SCH ×4 (07:52→21:09)
[2022-03-13 08:31] LABS: Marijuana Quant, GCMS Urine 351 ng/mL (<5)
[2022-03-13] MEDS: LORazepam 1 MG in SYRINGE 0.5 ML IV PRN ×3 (08:45→18:20)
[2022-03-13] MEDS ORDERED: POTASSIUM PHOS 3 MMOL/1 ML INFUSION IV STA ×2 (08:54→11:10)
--- NOTE | 2022-03-13 10:15 | Pharmacy Report ---
Pharmacy Glycemic Short Note 2 - Date of Service March 13, 2022 - Glycemic Short BSG Results (Last 24 hours): 03/12/22 03/12/22 03/12/22 11:13 11:17 14:54 Glucose 78 POC Glucose 85 178 H 03/12/22 03/13/22 03/13/22 19:02 02:40 07:02 Glucose 137 H POC Glucose 218 H 175 H OUTPATIENT ANTIDIABETIC REGIMEN: * Lispro PRN based upon blood sugar "doesn't use often" * A1c = 7.7% (03/11/22) ASSESSMENT: 03/13/22 * BSGs remain labile, likely related to intermittent D5 infusions * Received 7 units of Novolog yesterday * No dextrose-containing fluids ordered today, will continue to hold basal insul in at this time. Consider starting basal tomorrow if BSGs remain out of range. * Based on most recent past inpatient data - BSGs reasonably well-control with bolus insulin only 03/11/22 * Patient w/ reported h/o T2DM admitted to ICU for mental status changes, delusions, severe hyponatremia * BSGs were elevated on presentation, then quickly dropped, only to rebound again into the 200s. Fluctuations in BSGs likely related to D5 infusions administered to halt rapid climb in serum Na. * Given pending A1c results, uncertain home insulin regimen and BSGs fluctuating between hyper and hypoglycemia, will provide only Novolog insulin at this time in the form of low dose correction and low dose prandial coverage until a more BSG data is collected to help guide treatment decisions. PLAN FOR INPATIENT GLYCEMIC CONTROL: * Basal insulin * hold * Bolus insulin * NovoLog per scale ACHS or Q6hrs while NPO * Goal Range: Low 120 mg/dL - High 150 mg/dL * Correction Factor: 40 mg/dL/unit * Nutritional / Prandial insulin per carb ratio of 1 unit per 25 grams CHO consumed
--- NOTE | 2022-03-13 10:27 | Pulmonology Progress Note ---
Date of Service March 13, 2022 Assessment & Plan (1) Acute hyponatremia: Plan: Reason Critically Ill: 36-year-old female with severe symptomatic hyponatremia presents to the ICU after being found with sodium 117 and AMS. Neuro - Deliriumimproving Multifactorial patient does have psychiatric history on top of hyponatremia. Alcohol withdrawal might also be playing a role. UDS positive for marijuana EtOH negative. Acetaminophen and salicylates negative. CT head unremarkable. She does have a significantly prolonged QTC. We will hold home psych medicine for now. Psych on board Cardiac - Prolonged QTC may be due to electrolyte abnormalities, patient also on SSRI. Continue to hold psych meds. Keep potassium greater than 4, magnesium greater than 2, phosphorus greater than 3 Respiratory - History of asthma no current symptoms. Continue Advair. DuoNeb as needed. Continuous monitoring pulse ox GI - Chronic pancreatitis patient with history of pancreatitis with recent admission for post ERCP pancreatitis. Lipase currently 500 and she is asymptomatic Likely chronic elevation of lipase. No need for active treatment GERDfamotidine RENAL/LYTES - Acute hypoosmolar hyponatremia (symptomatic)initial sodium 117. Corrected initial sodium 121. No seizures thus far. Serum osmolality 264, urine osmolality 201, urine sodium 27 Calculated serum osmolality 267. No osmolar gap Possibly psychogenic polydipsia versus SIADH. Continue to trend BMP. Nephrology on board TSH within normal limit, cortisol 16 which is normal Chest x-ray does not show any signs of infection or mass Metabolic alkalosis initial pH 7.64. Suspect this is due to severe electrolyte abnormalities versus enema use? (Patient denies use of laxatives) we will continue with fluid resuscitation and electrolyte repletion. Monitor closely - Strict I's and O's ENDO - DM type IIhyperglycemia improving. Continue with sliding scale. ICU hyperglycemic protocol HEME - H&H stable, monitor routine CBC ID - Urinary tract infection. E. coli greater than 100,000 colonies Unable to assess if patient is having any symptoms. We will treat with Rocephin for 5 days --Prophylaxis VTE: Lovenox GI: Pepcid Lines: Peripheral Diet: Water restriction 1.5 L Plan: In/out: + 2.5 L, urine output is not currently measured Patient clinically improving. Continue with Rocephin for total of 5 days. Today by 3 PM will be 72 hours since patient's presentation to the hospital. Electrolytes being replaced Patient is hemodynamically stable to be downgrade to medical floor. Continue to monitor sodium Would recommend to continue with 1 is to 1 for the time being Case discussed with Dr. Hansen Please note the above document was generated using voice recognition software. It may contain grammatical, syntax or spelling errors.Any formal questions or concerns about the content, text or information contained within the body of this dictation should be directly addressed to the provider for clarification. (2) DVT prophylaxis: (3) DMII (diabetes mellitus, type 2): (4) Altered mental status: (5) ANGE (generalized anxiety disorder): (6) HTN (hypertension): (7) Bipolar disorder: (8) Asthma: Asthma severity: moderate Asthma persistence: persistent Asthma complication type: uncomplicated Qualified Code(s): J45.40 - Moderate persistent asthma, uncomplicated (9) Depression: Depression Type: unspecified Qualified Code(s): F32.9 - Major depressive disorder, single episode, unspecified (10) GERD (gastroesophageal reflux disease): Admission and Anticipated Discharge Date Admission Date: March 10, 2022 Subjective Patient seen and examined at bedside. No acute distress, no adverse events overnight. Patient was answering all the questions appropriately She might complain of mild headache. No nausea or vomiting Did have her breakfast today. Complaints of visual and auditory hallucination but they have significantly improved compared to before. Review of Systems Review of Systems: All systems reviewed & are unremarkable except as noted in Subjective Physical Exam Physical Exam: Constitutional: No acute distress HEENT: EOMI, PERRLA Respiratory system: Good air entry bilaterally, no wheeze, rhonchi, minimal crackles bilateral lower lobes CVS: S1-S2 positive, no murmurs or gallops Abdomen: Soft, nontender, nondistended, positive bowel sounds x4 Extremities: +2 pulses bilaterally radialis/ dorsalis pedis, no cyanosis, no edema Neuro: Awake alert oriented x3 Psych: Normal mood and affect G/U: No Reed Skin: no rashes, warm and dry Lymphatic: no cervical or axillary lymphadenopathy Results & Data Results & Data ([facility]) Vital Signs (Past 12 Hours) Vital Signs Temp Pulse Pulse Resp BP BP Pulse Ox 03/13/22 08:41 37.1 C 101 H 22 109/67 96 03/13/22 08:01 03/13/22 08:00 03/13/22 07:00 37.0 C 82 16 110/76 100 03/13/22 06:00 78 18 115/72 03/13/22 05:00 92 H 22 98 03/13/22 04:00 37 C 90 24 112/84 100 03/13/22 03:00 78 21 100 03/13/22 02:00 88 18 96/75 L 99 03/13/22 01:00 87 20 99 03/13/22 00:00 36.9 C 85 24 102/68 100 03/12/22 23:00 98 H 20 97 O2 Del Method 03/13/22 08:41 Room Air 03/13/22 08:01 Room Air 03/13/22 08:00 Room Air 03/13/22 07:00 Room Air 03/13/22 06:00 03/13/22 05:00 Room Air 03/13/22 04:00 Room Air 03/13/22 03:00 Room Air 03/13/22 02:00 Room Air 03/13/22 01:00 Room Air 03/13/22 00:00 Room Air 03/12/22 23:00 Room Air Laboratory Results 03/13/22 05:13 PG Care Time/CCT Total # of Minutes Spent Total Time Spent with Patient: Total time spent is greater than 50% in coordination of care (as documented) at patient's floor/unit and/or counseling patient: Coding Level of Care Code 87707 Subseq Hosp Care Lvl 3 Diagnoses Acute hyponatremia E87.1 DVT prophylaxis Z29.9 DMII (diabetes mellitus, type 2) E11.9 Altered mental status R41.82 ANGE (generalized anxiety disorder) F41.1 HTN (hypertension) I10 Bipolar disorder F31.9 Asthma J45.40 Asthma severity: moderate Asthma persistence: persistent Asthma complication type: uncomplicated Depression F32.9 Depression Type: unspecified GERD (gastroesophageal reflux disease) K21.9
[2022-03-13 10:29] LABS: BUN Creatinine Ratio 15.8 (10-20); Calcium 8.2 mg/dl (8.5-10.1); Creatinine Clr Calc Pharmacy 101.6 ml/min; Est GFR (African American) 139.2 ml/min; Est GFR (Non-African American) 120.1 ml/min; Magnesium 1.9 mg/dl (1.7-2.4); Potassium 4.1 mmol/L (3.5-5.1)
[2022-03-13] MEDS ORDERED: POTASSIUM PHOSPHATE 21 MMOL in SODIUM CHLORIDE 0.9% 500 ML IV ONE (11:30)
[2022-03-13] MEDS: ENOXAPARIN INJ 30 MG/0.3 ML SYR SQ SCH (11:35)
[2022-03-13] MEDS: LORazepam 2 MG in SYRINGE 1 ML IV PRN ×2 (13:45→21:08)
--- NOTE | 2022-03-13 16:19 | Hospitalist Progress Note ---
Date of Service March 13, 2022 Assessment & Plan (1) Altered mental status: (2) Acute hyponatremia: Plan 36-year-old lady with PMH of anxiety, depression, ADHD, bipolar disorder, IDDM, recurrent pancreatitis, choledocholithiasis, pancreatic pseudocyst, alcohol abuse, tobacco abuse presented to the ED 03/10 by the police after neighbors found her to be hallucinating on the porch. She is being managed for the following: Acute hyponatremia, likely SIADH vs Polydipsia/low solute intake: Hyponatremia with decreased serum osmolality with elevated urine osmolality. Acute metabolic encephalopathy Delirium due to multiple etiologies on the background of likely alcohol withdrawal delirium and existing bipolar disorder Prolonged QTC: Likely secondary to electrolyte abnormalities versus psychiatric meds versus both. Monitor QTC daily. Metabolic alkalosis Electrolyte abnormalities: Monitor and replete Patient presenting to ED 03/10 by police escort after her neighbors found her hallucinating on the porch Patient reports drinking 40 bottles of 16 ounce water every day and also reports drinking alcohol 2-3 times a week with about 5 to 7 glasses of mixed drinks. At presentation with several electrolytes derangement with sodium 117, potassium 2.3, magnesium 1.6 with ABG suggestive of metabolic alkalosis. Admitting UDS reviewed, positive for marijuana, Tylenol and salicylates negative. Metabolic encephalopathy multifactorial, psychogenic polydipsia playing a role as well. Patient under AWSS protocol. Monitor replete electrolytes, patient is oriented x3, patient with hallucination, patient is cooperative. Nephrology managing hyponatremia, appreciate recs. Patient being managed per ICU protocol. Downgrade to PCU today. Will continue with folic acid, thiamine. Psychiatry on board, holding all prior admission psychiatric medication given recent nonadherence and prolonged QTC. Appreciate recommendations. E coli UTI: on rocephin 03/12 History of bipolar disorder/ANGE/major depressive disorder: Psychiatry on board, appreciate recommendation. DM type II: A1c 6.8 on 08/03. Patient does not appear to be using insulin currently. assistant health educator consult when appropriate. On sliding scale while in hospital. DVT prophylaxis: SCDs Full Code Admission and Anticipated Discharge Date Admission Date: March 10, 2022 Subjective Patient seen and examined at bedside as a follow-up of altered mental status, metabolic alkalosis, acute hyponatremia and delirium due to multiple etiologies on the background of likely alcohol withdrawal delirium and existing bipolar disorder. Patient was lying semi-upright in bed, on room air, c/o hallucinations +, somewhat lethargic, occasional agitations per RN, patient denies headache/dizziness/chest pain/sore throat/cough/other review of symptoms. Patient is oriented x3. No adverse event overnight. Physical Exam Physical Exam: GENERAL: Awake and oriented x3. appears lethargic NAD, on RA. Hallucinations + HEENT: No pallor, no icterus. Pupils equal, round and reactive to light. Oral mucosa moist. NECK: No JVD, no neck masses. HEART: S1 and S2 heard. Regular rate and rhythm. No murmur, no gallop. RESPIRATORY SYSTEM: Normal AP diameter. No accessory muscle use. No wheezing, no crackles. ABDOMEN: Soft, bowel sounds present, nontender, no distention. CENTRAL NERVOUS SYSTEM: No facial droop. Speech is clear. Obeys simple commands. Moves extremities. EXTREMITIES: No edema, no erythema seen. Results & Data Results & Data ([facility]) Vital Signs (Past 12 Hours) Vital Signs Temp Pulse Pulse Resp BP BP BP 03/13/22 15:39 36.7 C 78 18 104/75 03/13/22 14:00 36.7 C 82 16 119/86 03/13/22 13:37 37.1 C 101 H 22 119/90 03/13/22 12:00 90 19 03/13/22 12:00 115/73 03/13/22 11:00 82 24 03/13/22 11:00 99/66 L 03/13/22 10:24 85 21 03/13/22 10:24 106/73 03/13/22 10:00 89 15 03/13/22 10:00 137/101 H 03/13/22 09:01 99 H 21 03/13/22 09:01 110/68 03/13/22 09:00 99 H 19 03/13/22 08:39 109/67 03/13/22 08:39 89 19 03/13/22 08:00 94 H 26 H 03/13/22 08:00 110/74 03/13/22 07:00 79 23 03/13/22 07:00 110/76 03/13/22 11:30 37.1 C 95 H 16 96/66 L 03/13/22 11:22 36.9 C 81 18 99/66 L 03/13/22 10:25 37.1 C 91 H 22 121/66 03/13/22 08:41 37.1 C 101 H 22 109/67 03/13/22 08:01 03/13/22 08:00 03/13/22 07:00 37.0 C 82 16 110/76 03/13/22 06:00 78 18 115/72 03/13/22 05:00 92 H 22 Pulse Ox O2 Del Method 03/13/22 15:39 100 Room Air 03/13/22 14:00 99 Room Air 03/13/22 13:37 96 Room Air 03/13/22 12:00 03/13/22 12:00 100 03/13/22 11:00 03/13/22 11:00 99 03/13/22 10:24 100 03/13/22 10:24 03/13/22 10:00 99 03/13/22 10:00 03/13/22 09:01 03/13/22 09:01 03/13/22 09:00 99 03/13/22 08:39 03/13/22 08:39 03/13/22 08:00 03/13/22 08:00 03/13/22 07:00 100 03/13/22 07:00 03/13/22 11:30 96 Room Air 03/13/22 11:22 100 Room Air 03/13/22 10:25 96 Room Air 03/13/22 08:41 96 Room Air 03/13/22 08:01 Room Air 03/13/22 08:00 Room Air 03/13/22 07:00 100 Room Air 03/13/22 06:00 03/13/22 05:00 98 Room Air
[2022-03-13 17:06] LABS: BUN Creatinine Ratio 26.5 (10-20); Calcium 7.9 mg/dl (8.5-10.1); Creatinine Clr Calc Pharmacy 118.1 ml/min; Est GFR (African American) 146.3 ml/min; Est GFR (Non-African American) 126.2 ml/min; Phosphorus 3.1 mg/dl (2.5-4.9); Potassium 4.5 mmol/L (3.5-5.1)
[2022-03-13 21:34] LABS: BUN Creatinine Ratio 27.1 (10-20); Calcium 7.7 mg/dl (8.5-10.1); Creatinine Clr Calc Pharmacy 98.1 ml/min; Est GFR (African American) 137.6 ml/min; Est GFR (Non-African American) 118.7 ml/min; Magnesium 1.7 mg/dl (1.7-2.4); Phosphorus 2.4 mg/dl (2.5-4.9); Potassium 4.4 mmol/L (3.5-5.1)
--- NOTE | 2022-03-13 22:14 | Nephrology Progress Note ---
Date of Service March 13, 2022 Assessment & Plan (1) Hyponatremia: Plan: hyponatremia due to polydipsia/low solute intake. Urine osmolality of 201 and urine sodium of 27; serum osms 264. Admission sodium was 117 on 03/10/2022 at 3 PM. Sodium is now at 131 as of 03/13. Target rate of correction is 6 in 24 hours, so she is correcting appropriately after we slowed rate of correction earlier this admissionl; goal about 134 sNa in am. High risk for complications of too rapid correction -limit po fluids to 1.8L -no IVF for now -next bmp in am -agree w/ corrections of other chemistries including phos, mag (2) Hypokalemia: Plan: Patient admitted with hypokalemia of 2.3. Potassium was increased to 4.4 today. Continue to monitor and supplement as needed. Admission and Anticipated Discharge Date Admission Date: March 10, 2022 Subjective seen on rounds to day 1500; c/o N but improving; states she drinks copious tea tells me 40 x 12 oz (sic); also still w/ sitter; some ECHEVARRIA today; no edema, no abd pain Review of Systems Review of Systems: All systems reviewed & are unremarkable except as noted in Subjective Physical Exam Constitutional: well developed and + thin; no acute distress Eyes: EOM intact bilaterally ENMT: Ears: no external ear abnormality Nose: no external nose abnormality Mouth: + dry oral mucous membranes Neck: no nuchal rigidity Respiratory: normal respiratory effort Auscultation: + diminished lung sounds Cardiovascular: Rate/Rhythm: regular rate and regular rhythm Extremities: no edema Gastrointestinal (Abdomen): Inspection/Auscultation: normal bowel sounds Percussion/Palpation: abdomen soft; abdomen nontender Musculoskeletal: Extremities: strength 5/5 throughout Skin: no rashes, warm and dry Neurologic: leal, fluent speech, no tremor Psychiatric: Orientation: oriented to person, oriented to place and grant ative Results & Data ([facility]) Vital Signs (Past 12 Hours) Vital Signs Temp Pulse Pulse Resp BP BP BP 03/13/22 22:00 36.9 C 82 18 120/73 03/13/22 18:56 36.9 C 82 20 115/81 03/13/22 17:24 87 03/13/22 17:02 36.9 C 80 17 114/77 03/13/22 16:00 37.2 C 82 20 110/77 03/13/22 15:39 36.7 C 78 18 104/75 03/13/22 14:00 36.7 C 82 16 119/86 03/13/22 13:37 37.1 C 101 H 22 119/90 03/13/22 12:00 90 19 03/13/22 12:00 115/73 03/13/22 11:00 82 24 03/13/22 11:00 99/66 L 03/13/22 10:24 85 21 03/13/22 10:24 106/73 03/13/22 11:30 37.1 C 95 H 16 96/66 L 03/13/22 11:22 36.9 C 81 18 99/66 L 03/13/22 10:25 37.1 C 91 H 22 121/66 Pulse Ox O2 Del Method 03/13/22 22:00 99 Room Air 03/13/22 18:56 99 Room Air 03/13/22 17:24 03/13/22 17:02 100 Room Air 03/13/22 16:00 97 Room Air 03/13/22 15:39 100 Room Air 03/13/22 14:00 99 Room Air 03/13/22 13:37 96 Room Air 03/13/22 12:00 03/13/22 12:00 100 03/13/22 11:00 03/13/22 11:00 99 03/13/22 10:24 100 03/13/22 10:24 03/13/22 11:30 96 Room Air 03/13/22 11:22 100 Room Air 03/13/22 10:25 96 Room Air Laboratory Results 03/13/22 05:13 03/13/22 21:05
[2022-03-14] MEDS ORDERED: INSULIN ASPART PER UNIT SC SCH (02:00)
[2022-03-14 06:40] LABS: Basophils # (auto) 0.03 K/uL (0-0.2); Basophils % (auto) 0.5 %; Eosinophils # (auto) 0.23 K/uL (0-0.50); Eosinophils % (auto) 3.5 %; Hematocrit (blood only) 29.5 % (34.1-44.9); Hemoglobin 9.6 g/dl (12.0-16.0); Immature Granulocytes # (auto) 0.06 K/uL (0.00-0.02); Immature Granulocytes % (auto) 0.9 %; Lymphocytes # (auto) 2.02 K/uL (1.2-3.4); Lymphocytes % (auto) 30.5 %; Mean Corpuscular Hemoglobin 28.7 pg (25.0-34.0); Mean Corpuscular Hgb Conc 32.5 g/dL (32.0-36.0); Mean Corpuscular Volume 88.3 fL (80.0-100.0); Mean Platelet Volume 10.1 fL (9.4-12.3); Monocytes # (auto) 0.47 K/uL (0.24-0.82); Monocytes % (auto) 7.1 %; Neutrophils # (auto) 3.81 K/uL (1.4-6.5); Neutrophils % (auto) 57.5 %; Platelet Count 241 K/uL (130-400); RDW Coefficient of Variation 14.5 % (11.5-14.5); RDW Standard Deviation 46.7 fL (36.4-46.3); Red Blood Count 3.34 M/uL (3.93-5.22); White Blood Count 6.62 K/ul (4.8-10.8)
[2022-03-14 07:00] LABS: Anion Gap 5 (3-11); BUN Creatinine Ratio 31.8 (10-20); Blood Urea Nitrogen 14 mg/dl (6-23); Calcium 8.2 mg/dl (8.5-10.1); Carbon Dioxide 23 mmol/L (21-32); Chloride 104 mmol/L (98-107); Creatinine Clr Calc Pharmacy 134.7 ml/min; Est GFR (African American) > 150.0 ml/min; Est GFR (Non-African American) 130.8 ml/min; Glucose 209 mg/dl (70-99(Fasting)); Magnesium 1.7 mg/dl (1.7-2.4); Phosphorus 2.7 mg/dl (2.5-4.9); Potassium 4.5 mmol/L (3.5-5.1); Sodium 132 mmol/L (136-145)
[2022-03-14] MEDS: LORazepam 1 MG in SYRINGE 0.5 ML IV PRN ×2 (07:21→13:44)
[2022-03-14] MEDS ORDERED: LANTUS PER UNIT CHARGE SQ ONE (07:30)
[2022-03-14] MEDS: THIAMINE HCL 100 MG TAB PO SCH (08:46)
[2022-03-14] MEDS: FLUTICASONE/VILANTEROL 200/25MCG 14 PUFFS/INHALER INH SCH (08:46)
[2022-03-14] MEDS: PANTOprazole 40 MG TAB PO SCH (08:46)
[2022-03-14] MEDS: FOLIC ACID 1 MG TAB PO SCH (08:46)
[2022-03-14] MEDS: MAGNESIUM OXIDE 400 MG TAB PO SCH ×2 (08:46→21:40)
--- NOTE | 2022-03-14 08:48 | Nephrology Progress Note ---
Date of Service March 14, 2022 Assessment & Plan Admission and Anticipated Discharge Date Admission Date: March 10, 2022 Subjective Assessment & Plan (1) Hyponatremia: Plan: hyponatremia due to polydipsia/low solute intake/Alcohol. Urine osmolality of 201 and urine sodium of 27; serum osms 264. Admission sodium was 117 on 03/10/2022 at 3 PM. Gone up nicely now 132. -limit po fluids to 1.8L -no IVF for now -next bmp in am+ phos and Mag -agree w/ corrections of other chemistries including K, phos, mag---All lytes normal . Did tell her that they are low because of poor PO intake Na is now out of danger and Discharge is upto Hospitalist Continue mag ox 400 bid for now. If > 2 then lower to once daily. Subjective She is angry and quite rude to the staff. No pain, n,v, SOB. On fluid limit. Po intake still not so good Review of Systems Review of Systems: All systems reviewed & are unremarkable except as noted in Subjective Physical Exam Constitutional: well developed and + thin; no acute distress Eyes: EOM intact bilaterally ENMT: Ears: no external ear abnormality Nose: no external nose abnormality Mouth: + dry oral mucous membranes Neck: no nuchal rigidity Respiratory: normal respiratory effort Auscultation: + diminished lung sounds Cardiovascular: Rate/Rhythm: regular rate and regular rhythm Extremities: no edema Gastrointestinal (Abdomen): Inspection/Auscultation: normal bowel sounds Percussion/Palpation: abdomen soft; abdomen nontender Musculoskeletal: Extremities: strength 5/5 throughout Skin: no rashes, warm and dry Neurologic: leal, fluent speech, no tremor Psychiatric: Orientation: oriented to person, oriented to place and cooperative Results & Data ([facility]) Vital Signs (Past 12 Hours) Vital Signs Temp Pulse Pulse Resp BP Pulse Ox O2 Del Method 03/14/22 07:49 74 03/14/22 07:03 36.8 C 79 16 116/74 100 Room Air 03/14/22 02:00 36.4 C L 74 20 119/81 99 Room Air 03/13/22 23:56 87 03/13/22 22:00 36.9 C 82 18 120/73 99 Room Air
[2022-03-14] MEDS: INSULIN ASPART PER UNIT SC SCH ×4 (09:29→21:49)
[2022-03-14] MEDS: ENOXAPARIN INJ 30 MG/0.3 ML SYR SQ SCH ×2 (12:05→12:07)
--- NOTE | 2022-03-14 12:36 | Electrocardiogram Report ---
Test Reason : Blood Pressure : / mmHG Vent. Rate : 085 BPM Atrial Rate : 085 BPM P-R Int : 138 ms QRS Dur : 078 ms QT Int : 356 ms P-R-T Axes : 131 153 166 degrees QTc Int : 423 ms Suspect arm lead reversal, interpretation assumes no reversal Unusual P axis, possible ectopic atrial rhythm Right axis deviation Nonspecific T wave abnormality Abnormal ECG When compared with ECG of 10-MAR-2022 21:09, Ectopic atrial rhythm has replaced Sinus rhythm (if no limb lead reversal) QRS axis Shifted right QT has shortened Confirmed by Phil Robles [id number] on 03/14/2022 12:36:45 PM Referred By: REFERRED SELF Confirmed By:Luis Robles
--- NOTE | 2022-03-14 13:12 | Pharmacy Report ---
Pharmacy Glycemic Short Note 2 - Date of Service March 14, 2022 - Glycemic Short BSG Results (Last 24 hours): 03/13/22 03/13/22 03/13/22 16:02 16:25 19:38 Glucose 172 H POC Glucose 179 H 219 H 03/13/22 03/14/22 03/14/22 21:05 01:59 06:08 Glucose 227 H 209 H POC Glucose 174 H 03/14/22 03/14/22 07:01 11:08 Glucose POC Glucose 203 H 195 H OUTPATIENT ANTIDIABETIC REGIMEN: * Lispro PRN based upon blood sugar "doesn't use often" * A1c = 7.7% (03/11/22) ASSESSMENT: 03/14: * BSGs [phone] the last 24h. Fasting elevated to 203mg/dL this AM. * No additional D5W given, Rocephin continues, tolerating a diet. * Plan to initiate low dose Lantus this AM given sustained elevated BSGs, 5 units this AM. Will reassess basal tomorrow. Novolog parameters tightened slightly at lunch today from 40/25 to 35/20. 03/13/22 * BSGs remain labile, likely related to intermittent D5 infusions * Received 7 units of Novolog yesterday * No dextrose-containing fluids ordered today, will continue to hold basal insulin at this time. Consider starting basal tomorrow if BSGs remain out of range. * Based on most recent past inpatient data - BSGs reasonably well-control with bolus insulin only 03/11/22 * Patient w/ reported h/o T2DM admitted to ICU for mental status changes, delusions, severe hyponatremia * BSGs were elevated on presentation, then quickly dropped, only to rebound agai n into the 200s. Fluctuations in BSGs likely related to D5 infusions administered to halt rapid climb in serum Na. * Given pending A1c results, uncertain home insulin regimen and BSGs fluctuating between hyper and hypoglycemia, will provide only Novolog insulin at this time in the form of low dose correction and low dose prandial coverage until a more BSG data is collected to help guide treatment decisions. PLAN FOR INPATIENT GLYCEMIC CONTROL: * Basal insulin * Lantus 5 units SQ X 1 * Bolus insulin * NovoLog per scale ACHS or Q6hrs while NPO * Goal Range: Low 110 mg/dL - High 140 mg/dL * Correction Factor: 35 mg/dL/unit * Nutritional / Prandial insulin per carb ratio of 1 unit per 20 grams CHO consumed
[2022-03-14] MEDS ORDERED: traZODone HCL 50 MG TAB PO PRN (13:14)
[2022-03-14] MEDS ORDERED: busPIRone 5 MG TAB PO PRN (13:14)
--- NOTE | 2022-03-14 13:16 | Psychiatric Progress Note ---
Date of Service March 14, 2022 Impression / Recommendations Impression 36 yo woman with history of BPAD/unspecified mood disorder, alcohol use disorder, severe and frequent pancreatitis admitted for altered mental status. Presentation seems most consistent with hyperactive delirium, strong suspicion for delirium tremens in setting of alcohol withdrawal though could be from electrolyte abnormalities. During her previous presentation in July 2021 she presented similarly with possible concern for acute kevyn but her lability and symptoms resolved as the alcohol withdrawal delirium cleared. She does have a history of BPAD vs unspecified mood disorder and we will consider restarting a mood stabilizer once delirium improves and QTc normalizes. For now agree with holding her prior to admission psychiatric medication. Would place on AWSS and use lorazepam. 03/14/22: reviewed Dr. Dye's impression above, patient is improving but irritable. Dr. Daly was contacted and agrees that patient can resume her previously effective psychiatric medications Abilify 5 mg daily (will give 2 mg today), trazodone 50 prn and Buspar 5 mg prn. Patient is refusing rehab. (1) Delirium due to multiple etiologies: (2) Alcohol withdrawal delirium: (3) Acute hyponatremia: (4) Bipolar disorder: (5) Alcohol use disorder: Risk Factors Assessment Do You Have Access To A Gun?: No Interval History Identifying Information 36 yo woman with history of BPAD, alcohol use, recurrent pancreatitis admitted medically 03/10/22 with altered mental status with visual hallucinations for management of hyponatremia and presume ETOH withdrawal. Chief Complaint "I never said that, I don't trust you to experiment on me." Review of Systems Notes patient states she is eating, sleeping, otherwise guarded with questioning. Subjective Subjective Patient was seen & assessed and interval progress reviewed. Leodan has been moved from ICU as sodium is correcting. Her MS continues to improve but she was irritable overnight. Patient seems suspicious as to reason for my visit as clear she does not want inpatient mental health. States that she only feels comfortable with Dr. Nathan managing her medications. Was irritable with staff overnight. Continues with 1-on-1. Physical Exam Psychiatric Orientation: alert and + guarded Apperance: + disheveled Eye Contact: + fair eye contact Motor Behavior: no abnormal motor movements Speech: normal rate/rhythm/volume of speech Affect: + irritable affect Mood: + irritable mood Thought Process: + concrete thought process Thought Content: + paranoid and reality based without delusions Suicidal Thoughts: denies suicidal thoughts Homicidal Thoughts: denies homicidal thoughts Hallucinations: no auditory hallucinations and no visual hallucinations Cognition: language grossly intact; + attention not intact Insight: + limited insight Vital Signs (Past 24 Hours) Last Vital Signs Temp 37.1 C 03/14/22 11:08 Pulse 82 03/14/22 11:08 Resp 16 03/14/22 11:08 BP 110/64 03/14/22 11:08 Pulse Ox 99 03/14/22 11:08 O2 Del Method 03/14/22 11:08 Results & Data ([facility]) Laboratory Results Laboratory Results - last 24 hr 03/13/22 03/13/22 03/13/22 16:02 16:25 19:38 WBC RBC Hgb Hct MCV MCH MCHC RDW Std Deviation RDW Coeff of Arnold Plt Count MPV Immature Gran % (Auto) Neut % (Auto) Lymph % (Auto) [place] % (Auto) Eos % (Auto) Baso % (Auto) Neut # (Auto) Lymph # (Auto) [place] # (Auto) Eos # (Auto) Baso # (Auto) Immature Gran # (Auto) Sodium 131 L Potassium 4.5 Chloride 100 Carbon Dioxide 24 Anion Gap 7 BUN 13 Creatinine 0.49 L Est Cr Clr Drug Dosing 118.1 Est GFR ( Amer) 146.3 Est GFR (Non-Af Amer) 126.2 BUN/Creatinine Ratio 26.5 H Glucose 172 H POC Glucose 179 H 219 H Calcium 7.9 L Phosphorus 3.1 D Magnesium 2.0 03/13/22 03/14/22 03/14/22 21:05 01:59 06:08 WBC RBC Hgb Hct MCV MCH MCHC RDW Std Deviation RDW Coeff of Arnold Plt Count MPV Immature Gran % (Auto) Neut % (Auto) Lymph % (Auto) [place] % (Auto) Eos % (Auto) Baso % (Auto) Neut # (Auto) Lymph # (Auto) [place] # (Auto) Eos # (Auto) Baso # (Auto) Immature Gran # (Auto) Sodium 131 L 132 L Potassium 4.4 4.5 Chloride 101 104 Carbon Dioxide 24 23 Anion Gap 6 5 BUN 16 14 Creatinine 0.59 L 0.44 L Est Cr Clr Drug Dosing 98.1 134.7 Est GFR ( Amer) 137.6 > 150.0 Est GFR (Non-Af Amer) 118.7 130.8 BUN/Creatinine Ratio 27.1 H 31.8 H Glucose 227 H 209 H POC Glucose 174 H Calcium 7.7 L 8.2 L Phosphorus 2.4 L 2.7 Magnesium 1.7 1.7 03/14/22 03/14/22 03/14/22 06:08 07:01 11:08 WBC 6.62 RBC 3.34 L Hgb 9.6 L Hct 29.5 L MCV 88.3 MCH 28.7 MCHC 32.5 RDW Std Deviation 46.7 H RDW Coeff of Arnold 14.5 Plt Count 241 MPV 10.1 Immature Gran % (Auto) 0.9 Neut % (Auto) 57.5 Lymph % (Auto) 30.5 [place] % (Auto) 7.1 Eos % (Auto) 3.5 Baso % (Auto) 0.5 Neut # (Auto) 3.81 Lymph # (Auto) 2.02 [place] # (Auto) 0.47 Eos # (Auto) 0.23 Baso # (Auto) 0.03 Immature Gran # (Auto) 0.06 H Sodium Potassium Chloride Carbon Dioxide Anion Gap BUN Creatinine Est Cr Clr Drug Dosing Est GFR ( Amer) Est GFR (Non-Af Amer) BUN/Creatinine Ratio Glucose POC Glucose 203 H 195 H Calcium Phosphorus Magnesium Diagnostic Findings EKG reviewed, QTc normalized Current Inpatient Medications Current Inpatient Medications: Current Inpatient Medications Acetaminophen (Acetaminophen 325 Mg Tab) 650 mg PO Q4H PRN PRN Reason: Pain Stop: 04/10/22 06:06 Last Admin: 03/13/22 05:06 Dose: 650 mg Albuterol (Albut/Ipratrop 3mg/0.5mg Neb 3 Ml Vial) 3 ml NEB Q4R PRN; Protocol PRN Reason: Shortness Of Breath Or Wheezing Stop: 04/09/22 22:59 Enoxaparin Sodium (Enoxaparin Inj 30 Mg/0.3 Ml Syr) 30 mg SQ Q24H GEOVANNA Stop: 04/10/22 10:59 Last Admin: 03/14/22 12:07 Dose: Not Given Fluticasone/Vilanterol (Fluticasone/Vilanterol 200/25mcg 14 Puffs/Inhaler) 1 puffs INH DAILY GEOVANNA; Protocol Stop: 04/10/22 08:59 Last Admin: 03/14/22 08:46 Dose: 1 puffs Folic Acid (Folic Acid 1 Mg Tab) 1 mg PO QAM [facility] Stop: 04/10/22 12:59 Last Admin: 03/14/22 08:46 Dose: 1 mg Lorazepam 1 mg/ Syringe 1 mls @ 2 mls/min IV UD PRN; Protocol PRN Reason: EtOH Withdrawal AWSS Score 6,7 Stop: 04/10/22 12:56 Last Admin: 03/14/22 07:21 Dose: 2 mls/min Lorazepam 2 mg/ Syringe 2 mls @ 2 mls/min IV UD PRN; Protocol PRN Reason: EtOH Withdrawal AWSS Score 8,9 Stop: 04/10/22 12:56 Last Admin: 03/13/22 21:08 Dose: 2 mls/min Ceftriaxone Sodium 1,000 mg/ (Sodium Chloride) 60 mls @ 100 mls/hr IV DAILY GEOVANNA; Protocol Stop: 03/17/22 09:14 Last Infusion: 03/14/22 10:13 Dose: Infused Insulin Aspart (Insulin Aspart Per Unit) 0 units SC ACHS [facility] Stop: 04/09/22 20:59 Last Admin: 03/14/22 12:05 Dose: 3 units Magnesium Oxide (Magnesium Oxide 400 Mg Tab) 400 mg PO BID [facility] Stop: 04/11/22 14:41 Last Admin: 03/14/22 08:46 Dose: 400 mg Miscellaneous Information (Pharmacy Glycemic Mgmt Consult) 1 each N/A UD PRN PRN Reason: Consult Stop: 04/09/22 19:40 Pantoprazole Sodium (Pantoprazole 40 Mg Tab) 40 mg PO QAM [facility] Stop: 04/11/22 12:59 Last Admin: 03/14/22 08:46 Dose: 40 mg Thiamine HCl (Thiamine Hcl 100 Mg Tab) 100 mg PO QAM [facility] Stop: 04/10/22 12:59 Last Admin: 03/14/22 08:46 Dose: 100 mg
[2022-03-14] MEDS ORDERED: ARIPIprazole 1 MG/ML ORAL SOLN 150 ML BTL PO ONE (13:45)
[2022-03-14] MEDS: QUEtiapine FUMARATE 25 MG TABLET PO PRN ×2 (15:57→21:41)
--- NOTE | 2022-03-14 16:32 | Hospitalist Progress Note ---
Date of Service March 14, 2022 Assessment & Plan (1) Altered mental status: (2) Acute hyponatremia: Plan 36-year-old lady with PMH of anxiety, depression, ADHD, bipolar disorder, IDDM, recurrent pancreatitis, choledocholithiasis, pancreatic pseudocyst, alcohol abuse, tobacco abuse presented to the ED 03/10 by the police after neighbors found her to be hallucinating on the porch. She is being managed for the following: Acute hyponatremia, likely SIADH vs Polydipsia/low solute intake: Hyponatremia with decreased serum osmolality with elevated urine osmolality. Acute metabolic encephalopathy Delirium due to multiple etiologies on the background of likely alcohol withdrawal delirium and existing bipolar disorder Prolonged QTC: Likely secondary to electrolyte abnormalities versus psychiatric meds versus both. Monitor QTC daily. Nl today. Metabolic alkalosis Electrolyte abnormalities: Monitor and replete Patient presenting to ED 03/10 by police escort after her neighbors found her galindo lucinating on the porch Patient reports drinking 40 bottles of 16 ounce water every day and also reports drinking alcohol 2-3 times a week with about 5 to 7 glasses of mixed drinks. At presentation with several electrolytes derangement with sodium 117, potassium 2.3, magnesium 1.6 with ABG suggestive of metabolic alkalosis. Admitting UDS reviewed, positive for marijuana, Tylenol and salicylates ne gative. Metabolic encephalopathy multifactorial, psychogenic polydipsia playing a role as well. Patient under AWSS protocol. Monitor replete electrolytes, patient is oriented x3, patient still c/o h allucination, patient is cooperative. Nephrology managing hyponatremia, appreciate recs. FR 1.8L. Will continue with folic acid, thiamine. Psychiatry on board, managing psychiatric meds, appreciate recs. E coli UTI: on rocephin 03/12 History of bipolar disorder/ANGE/major depressive disorder: Psychiatry on board, appreciate recommendation. DM type II: A1c 6.8 on 08/03. Patient does not appear to be using insulin currently. diabetic educator consult when appropriate. On sliding scale while in hospital. DVT prophylaxis: SCDs Full Code Dispo: Pending psychiatric meds optimization, also would like to see her lytes stable tomorrow, ? decreased use of ativan Admission and Anticipated Discharge Date Admission Date: March 10, 2022 Subjective Patient seen and examined at bedside as a follow-up of altered mental status, metabolic alkalosis, acute hyponatremia and delirium due to multiple etiologies on the background of likely alcohol withdrawal delirium and existing bipolar disorder. Patient was sleeping, woke up for exam, on room air, c/o hallucinations +, somewhat lethargic, no agitations per RN, patient denies headache/dizziness/chest pain/sore throat/cough/other review of symptoms. Patient is oriented x3. No adverse event overnight. Physical Exam Physical Exam: GENERAL: Sleepy and oriented x3. appears lethargic NAD, on RA. Hallucinations + HEENT: No pallor, no icterus. Pupils equal, round and reactive to light. Oral mucosa moist. NECK: No JVD, no neck masses. HEART: S1 and S2 heard. Regular rate and rhythm. No murmur, no gallop. RESPIRATORY SYSTEM: Normal AP diameter. No accessory muscle use. No wheezing, no crackles. ABDOMEN: Soft, bowel sounds present, nontender, no distention. CENTRAL NERVOUS SYSTEM: No facial droop. Speech is clear. Obeys simple commands. Moves extremities. EXTREMITIES: No edema, no erythema seen. Results & Data Results & Data ([facility]) Vital Signs (Past 12 Hours) Vital Signs Temp Pulse Pulse Resp BP Pulse Ox O2 Del Method 03/14/22 15:47 36.8 C 90 16 122/78 100 Room Air 03/14/22 15:09 85 03/14/22 11:08 37.1 C 82 16 110/64 99 Room Air 03/14/22 07:49 74 03/14/22 07:03 36.8 C 79 16 116/74 100 Room Air
[2022-03-14] MEDS: POTASSIUM CHLORIDE / WTR 10 MEQ/100 ML PLCT IV SCH ×2 (21:10→21:28)
[2022-03-14] MEDS: LORazepam 0.5 MG TAB PO PRN (23:44)
[2022-03-15 06:00] LABS: Hematocrit (blood only) 29.5 % (34.1-44.9); Hemoglobin 9.7 g/dl (12.0-16.0); Mean Corpuscular Hemoglobin 29.1 pg (25.0-34.0); Mean Corpuscular Hgb Conc 32.9 g/dL (32.0-36.0); Mean Corpuscular Volume 88.6 fL (80.0-100.0); Mean Platelet Volume 9.6 fL (9.4-12.3); Platelet Count 334 K/uL (130-400); RDW Coefficient of Variation 14.8 % (11.5-14.5); RDW Standard Deviation 47.8 fL (36.4-46.3); Red Blood Count 3.33 M/uL (3.93-5.22); White Blood Count 6.89 K/ul (4.8-10.8)
[2022-03-15 06:37] LABS: BUN Creatinine Ratio 36.8 (10-20); Calcium 8.8 mg/dl (8.5-10.1); Est GFR (African American) 139.2 ml/min; Est GFR (Non-African American) 120.1 ml/min; Magnesium 1.4 mg/dl (1.7-2.4); Phosphorus 3.7 mg/dl (2.5-4.9); Potassium 4.1 mmol/L (3.5-5.1)
[2022-03-15] MEDS: QUEtiapine FUMARATE 25 MG TABLET PO PRN ×2 (08:19→17:23)
[2022-03-15] MEDS: FOLIC ACID 1 MG TAB PO SCH (08:19)
[2022-03-15] MEDS: FLUTICASONE/VILANTEROL 200/25MCG 14 PUFFS/INHALER INH SCH (08:19)
[2022-03-15] MEDS: THIAMINE HCL 100 MG TAB PO SCH (08:20)
[2022-03-15] MEDS: MAGNESIUM OXIDE 400 MG TAB PO SCH ×3 (08:20→21:02)
[2022-03-15] MEDS: PANTOprazole 40 MG TAB PO SCH (08:20)
[2022-03-15] MEDS ORDERED: ARIPiprazole 5 MG TAB PO SCH (09:00)
[2022-03-15] MEDS: MAGNESIUM SULFATE / D5W 1 GM/100 ML BAG IV SCH ×2 (09:07→10:48)
[2022-03-15] MEDS: INSULIN ASPART PER UNIT SC SCH ×4 (09:27→21:09)
[2022-03-15] MEDS ORDERED: MAGNESIUM SULFATE / D5W 1 GM/100 ML BAG IV ONE (11:00)
--- NOTE | 2022-03-15 11:03 | Nephrology Progress Note ---
Date of Service March 15, 2022 Assessment & Plan Admission and Anticipated Discharge Date Admission Date: March 10, 2022 Subjective Assessment & Plan Admission and Anticipated Discharge Date Admission Date: March 10, 2022 Subjective Assessment & Plan (1) Hyponatremia: Plan: hyponatremia due to polydipsia/low solute intake/Alcohol. Urine osmolality of 201 and urine sodium of 27; serum osms 264. Admission sodium was 117 on 03/10/2022 at 3 PM. Gone up nicely now 133 -limit po fluids to 1.8L -no IVF for now -next bmp in am+ phos and Mag -agree w/ corrections of other chemistries including K, phos,---All lytes normal . Did tell her that they are low because of poor PO intake Na is now out of danger However mag remains a challenge. With Prolonged QTc will try to correct faster. Give another 1 gm iv so total of 3 gm today. also raise the mag ox to 400 tid. It seems she needs a big dose Subjective No new issues. Seen by Psych No pain, n,v, SOB. On fluid limit. Po intake still not so good Review of Systems Review of Systems: All systems reviewed & are unremarkable except as noted in Subjective Physical Exam Constitutional: well developed and + thin; no acute distress Eyes: EOM intact bilaterally ENMT: Ears: no external ear abnormality Nose: no external nose abnormality Mouth: + dry oral mucous membranes Neck: no nuchal rigidity Respiratory: normal respiratory effort Auscultation: + diminished lung sounds Cardiovascular: Rate/Rhythm: regular rate and regular rhythm Extremities: no edema Gastrointestinal (Abdomen): Inspection/Auscultation: normal bowel sounds Percussion/Palpation: abdomen soft; abdomen nontender Musculoskeletal: Extremities: strength 5/5 throughout Skin: no rashes, warm and dry Neurologic: leal, fluent speech, no tremor Psychiatric: Orientation: oriented to person, oriented to place and cooperative Results & Data ([facility]) Vital Signs (Past 12 Hours) Vital Signs Temp Pulse Pulse Resp BP Pulse Ox O2 Del Method 03/15/22 10:16 Room Air 03/15/22 07:32 74 03/15/22 07:00 36.6 C 71 16 121/79 99 Room Air 03/14/22 23:13 36.6 C 72 18 146/97 H 100 Room Air
[2022-03-15] MEDS ORDERED: LANTUS PER UNIT CHARGE SQ SCH (11:30)
[2022-03-15] MEDS: ENOXAPARIN INJ 30 MG/0.3 ML SYR SQ SCH (11:56)
--- NOTE | 2022-03-15 12:09 | Pharmacy Report ---
Pharmacy Glycemic Short Note 2 - Date of Service March 15, 2022 - Glycemic Short BSG Results (Last 24 hours): 03/14/22 03/14/22 03/15/22 16:04 19:47 05:43 Glucose 205 H POC Glucose 165 H 138 H 03/15/22 03/15/22 03/15/22 07:39 11:13 11:33 Glucose POC Glucose 183 H 205 H 177 H OUTPATIENT ANTIDIABETIC REGIMEN: * Lispro PRN based upon blood sugar "doesn't use often" * A1c = 7.7% (03/11/22) ASSESSMENT: 03/15: * BSGs reasonably controlled over last 24 hrs * Fasting BSG elevated again this AM with 5 units basal on board, will continue with the same for now - but begin to transition dosing to HS as fasting AM hyperglycemia seem to be more problematic. Perhaps Lantus does not produce effects for 24 hrs. * Post-prandial BSGs fairly well controlled, continue same Novolog CF/CR for now 03/14: * BSGs [phone] the last 24h. Fasting elevated to 203mg/dL this AM. * No additional D5W given, Rocephin continues, tolerating a diet. * Plan to initiate low dose Lantus this AM given sustained elevated BSGs, 5 units this AM. Will reassess basal tomorrow. Novolog parameters tightened slightly at lunch today from 40/25 to 35/20. 03/13/22 * BSGs remain labile, likely related to intermittent D5 infusions * Received 7 units of Novolog yesterday * No dextrose-containing fluids ordered today, will continue to hold basal insulin at this time. Consider starting basal tomorrow if BSGs remain out of range. * Based on most recent past inpatient data - BSGs reasonably well-control with bolus insulin only 03/11/22 * Patient w/ reported h/o T2DM admitted to ICU for mental status changes, delusions, severe hyponatremia * BSGs were elevated on presentation, then quickly dropped, only to rebound again into the 200s. Fluctuations in BSGs likely related to D5 infusions administered to halt rapid climb in serum Na. * Given pending A1c results, uncertain home insulin regimen and BSGs fluctuating between hyper and hypoglycemia, will provide only Novolog insulin at this time in the form of low dose correction and low dose prandial coverage until more BSG data is collected to help guide treatment decisions. PLAN FOR INPATIENT GLYCEMIC CONTROL: * Basal insulin * Lantus 5 units SQ X 1 * Bolus insulin * NovoLog per scale ACHS or Q6hrs while NPO * Goal Range: Low 110 mg/dL - High 140 mg/dL * Correction Factor: 35 mg/dL/unit * Nutritional / Prandial insulin per carb ratio of 1 unit per 20 grams CHO consumed
--- NOTE | 2022-03-15 15:04 | Psychiatric Progress Note ---
Date of Service March 15, 2022 Impression / Recommendations Impression 36 yo woman with history of BPAD/unspecified mood disorder, alcohol use disorder, severe and frequent pancreatitis admitted for altered mental status. Presentation seems most consistent with hyperactive delirium, strong suspicion for delirium tremens in setting of alcohol withdrawal though could be from electrolyte abnormalities. During her previous presentation in July 2021 she presented similarly with possible concern for acute kevyn but her lability and symptoms resolved as the alcohol withdrawal delirium cleared. 03/15/22: improving (1) Bipolar disorder: (2) Delirium due to multiple etiologies: resolving (3) Alcohol withdrawal delirium: resolving (4) Acute hyponatremia: reslving (5) Alcohol use disorder: Plan she is interested in dual IOP to include a psychiatry referral she would like prn Seroquel increased to 50 mg Risks/benefits/alternatives were reviewed re: antipsychotics for mood and/or psychosis. Discussion included but was not limited to metabolic side effects, risks of TD and suicidal thoughts. There were no abnormal motor movements at baseline. Agreed to start Seroquel 50 mg hs with titration likely. She is aware psychiatric medications can contribute to hyponatremia. Risk Factors Assessment Do You Have Access To A Gun?: No Interval History Identifying Information 36 yo woman with history of BPAD, alcohol use, recurrent pancreatitis admitted medically 03/10/22 with altered mental status with visual hallucinations for management of hyponatremia and presume ETOH withdrawal. Chief Complaint "I'm sorry I acted that way, I want to get stable". Review of Systems Notes says her head felt a little foggy but less irritable today, some DFA Subjective Subjective Patient was seen & assessed and interval progress reviewed with nursing. Patient took 2 doses of prn Seroquel with some benefit, still required prn Ativan but sees the promise of it replacing her anxiety/sleep meds at higher dose as well as being a mood stabilizer to help with her paranoia. She says at night at home she starts to see things and that she even feels like locking herself in a room so she doesn't react to them and hurt herself in some way. She clearly does not want to harm self or others. Physical Exam Psychiatric Orientation: alert and cooperative Eye Contact: + fair eye contact Motor Behavior: no abnormal motor movements Speech: normal rate/rhythm/volume of speech Affect: + depressed affect Mood: + depressed mood and + anxious mood Thought Process: + concrete thought process Thought Content: reality based without delusions Suicidal Thoughts: denies suicidal thoughts Homicidal Thoughts: denies homicidal thoughts Hallucinations: no auditory hallucinations and no visual hallucinations Cognition: language grossly intact Insight: + limited insight Vital Signs (Past 24 Hours) Last Vital Signs Temp 36.8 C 03/15/22 12:04 Pulse 84 03/15/22 12:04 Resp 22 03/15/22 12:04 BP 110/74 03/15/22 12:04 Pulse Ox 100 03/15/22 12:04 O2 Del Method 03/15/22 12:04 Results & Data ([facility]) Laboratory Results Laboratory Results - last 24 hr 03/14/22 03/14/22 03/15/22 16:04 19:47 05:43 WBC 6.89 RBC 3.33 L Hgb 9.7 L Hct 29.5 L MCV 88.6 MCH 29.1 MCHC 32.9 RDW Std Deviation 47.8 H RDW Coeff of Arnold 14.8 H Plt Count 334 MPV 9.6 Sodium Potassium Chloride Carbon Dioxide Anion Gap BUN Creatinine Est Cr Clr Drug Dosing Est GFR ( Amer) Est GFR (Non-Af Amer) BUN/Creatinine Ratio Glucose POC Glucose 165 H 138 H Calcium Phosphorus Magnesium 03/15/22 03/15/22 03/15/22 05:43 07:39 11:13 WBC RBC Hgb Hct MCV MCH MCHC RDW Std Deviation RDW Coeff of Arnold Plt Count MPV Sodium 133 L Potassium 4.1 Chloride 104 Carbon Dioxide 23 Anion Gap 6 BUN 21 Creatinine 0.57 L Est Cr Clr Drug Dosing 104.0 Est GFR ( Amer) 139.2 Est GFR (Non-Af Amer) 120.1 BUN/Creatinine Ratio 36.8 H Glucose 205 H POC Glucose 183 H 205 H Calcium 8.8 Phosphorus 3.7 D Magnesium 1.4 L 03/15/22 11:33 WBC RBC Hgb Hct MCV MCH MCHC RDW Std Deviation RDW Coeff of Arnold Plt Count MPV Sodium Potassium Chloride Carbon Dioxide Anion Gap BUN Creatinine Est Cr Clr Drug Dosing Est GFR ( Amer) Est GFR (Non-Af Amer) BUN/Creatinine Ratio Glucose POC Glucose 177 H Calcium Phosphorus Magnesium Current Inpatient Medications Current Inpatient Medications: Current Inpatient Medications Acetaminophen (Acetaminophen 325 Mg Tab) 650 mg PO Q4H PRN PRN Reason: Pain Stop: 04/10/22 06:06 Last Admin: 03/13/22 05:06 Dose: 650 mg Albuterol (Albut/Ipratrop 3mg/0.5mg Neb 3 Ml Vial) 3 ml NEB Q4R PRN; Protocol PRN Reason: Shortness Of Breath Or Wheezing Stop: 04/09/22 22:59 Enoxaparin Sodium (Enoxaparin Inj 30 Mg/0.3 Ml Syr) 30 mg SQ Q24H [facility] Stop: 04/10/22 10:59 Last Admin: 03/15/22 11:56 Dose: Not Given Fluticasone/Vilanterol (Fluticasone/Vilanterol 200/25mcg 14 Puffs/Inhaler) 1 puffs INH DAILY [facility]; Protocol Stop: 04/10/22 08:59 Last Admin: 03/15/22 08:19 Dose: 1 puffs Folic Acid (Folic Acid 1 Mg Tab) 1 mg PO QAM [facility] Stop: 04/10/22 12:59 Last Admin: 03/15/22 08:19 Dose: 1 mg Ceftriaxone Sodium 1,000 mg/ (Sodium Chloride) 60 mls @ 100 mls/hr IV DAILY [facility]; Protocol Stop: 03/17/22 09:14 Last Infusion: 03/15/22 09:07 Dose: Infused Insulin Aspart (Insulin Aspart Per Unit) 0 units SC ACHS [facility] Stop: 04/09/22 20:59 Last Admin: 03/15/22 12:33 Dose: 3 units Insulin Glargine (Lantus Per Unit Charge) 5 units SQ HS [facility] Stop: 04/15/22 20:59 Lorazepam (Lorazepam 0.5 Mg Tab) 0.25 mg PO TID PRN PRN Reason: Anxiety Stop: 04/13/22 23:17 Last Admin: 03/14/22 23:44 Dose: 0.25 mg Magnesium Oxide (Magnesium Oxide 400 Mg Tab) 400 mg PO TID [facility] Stop: 04/14/22 13:59 Last Admin: 03/15/22 13:04 Dose: 400 mg Miscellaneous Information (Pharmacy Glycemic Mgmt Consult) 1 each N/A UD PRN PRN Reason: Consult Stop: 04/09/22 19:40 Pantoprazole Sodium (Pantoprazole 40 Mg Tab) 40 mg PO QAM [facility] Stop: 04/11/22 12:59 Last Admin: 03/15/22 08:20 Dose: 40 mg Quetiapine Fumarate (Quetiapine Fumarate 25 Mg Tablet) 50 mg PO Q6 PRN PRN Reason: Anxiety Stop: 04/13/22 11:14 Quetiapine Fumarate (Quetiapine Fumarate 25 Mg Tablet) 50 mg PO HS [facility] Stop: 04/14/22 20:59 Thiamine HCl (Thiamine Hcl 100 Mg Tab) 100 mg PO QAM [facility] Stop: 04/10/22 12:59 Last Admin: 03/15/22 08:20 Dose: 100 mg Trazodone HCl (Trazodone Hcl 50 Mg Tab) 50 mg PO HS PRN PRN Reason: Insomnia Stop: 04/13/22 13:13
--- NOTE | 2022-03-15 18:15 | Hospitalist Progress Note ---
Date of Service March 15, 2022 Assessment & Plan (1) Altered mental status: (2) Acute hyponatremia: Plan 36-year-old lady with PMH of anxiety, depression, ADHD, bipolar disorder, IDDM, recurrent pancreatitis, choledocholithiasis, pancreatic pseudocyst, alcohol abuse, tobacco abuse presented to the ED 03/10 by the police after neighbors found her to be hallucinating on the porch. She is being managed for the following: Acute hyponatremia, likely SIADH vs Polydipsia/low solute intake: Hyponatremia with decreased serum osmolality with elevated urine osmolality. Acute metabolic encephalopathy Delirium due to multiple etiologies on the background of likely alcohol withdrawal delirium and existing bipolar disorder Prolonged QTC: Likely secondary to electrolyte abnormalities versus psychiatric meds versus both. Monitor QTC daily. Nl today. Metabolic alkalosis Electrolyte abnormalities: Monitor and replete Patient presenting to ED 03/10 by police escort after her neighbors found her galindo lucinating on the porch Patient reports drinking 40 bottles of 16 ounce water every day and also reports drinking alcohol 2-3 times a week with about 5 to 7 glasses of mixed drinks. At presentation with several electrolytes derangement with sodium 117, potassium 2.3, magnesium 1.6 with ABG suggestive of metabolic alkalosis. Admitting UDS reviewed, positive for marijuana, Tylenol and salicylates ne gative. Metabolic encephalopathy multifactorial, psychogenic polydipsia playing a role as well. Patient under AWSS protocol. Monitor replete electrolytes, patient is oriented x3, patient reports improving hallucination, patient is cooperative. Pt advised to limit fluid intake to 2-3 L per day. Nephrology managing hyponatremia, appreciate recs. FR 1.8L. Mg dose being titrated. Will continue with folic acid, thiamine. Still w/ ativan dose requirement, will dc iv ativan and see if she can be managed w/ PO seroquel Psychiatry on board, managing psychiatric meds, appreciate recs. E coli UTI: on rocephin 03/12 History of bipolar disorder/ANGE/major depressive disorder: Psychiatry on board, appreciate recommendation. DM type II: A1c 6.8 on 08/03. Patient does not appear to be using insulin currently. family living educator consult. On sliding scale while in hospital. DVT prophylaxis: lovenox Full Code Dispo: likely [facility] w/ psychiatry clearance and recs if no new issues arises. Admission and Anticipated Discharge Date Admission Date: March 10, 2022 Subjective Patient seen and examined at bedside as a follow-up of altered mental status, metabolic alkalosis, acute hyponatremia and delirium due to multiple etiologies on the background of likely alcohol withdrawal delirium and existing bipolar disorder. Patient was lying in bed, calm, no agitation overnight per RN, decreasing ativan use, on room air, hallucinations improving per pt, feels better, patient denies headache/dizziness/chest pain/sore throat/cough/other review of symptoms. Patient is oriented x3. No adverse event overnight. Physical Exam Physical Exam: GENERAL: Alert and oriented x3. NAD, on RA. HEENT: No pallor, no icterus. Pupils equal, round and reactive to light. Oral mucosa moist. NECK: No JVD, no neck masses. HEART: S1 and S2 heard. Regular rate and rhythm. No murmur, no gallop. RESPIRATORY SYSTEM: Normal AP diameter. No accessory muscle use. No wheezing, no crackles. ABDOMEN: Soft, bowel sounds present, nontender, no distention. CENTRAL NERVOUS SYSTEM: No facial droop. Speech is clear. Obeys simple commands. Moves extremities. EXTREMITIES: No edema, no erythema seen. Results & Data Results & Data ([facility]) Vital Signs (Past 12 Hours) Vital Signs Temp Pulse Pulse Pulse Resp BP Pulse Ox 03/15/22 16:39 36.9 C 85 18 124/85 100 03/15/22 15:08 81 03/15/22 12:04 36.8 C 84 22 110/74 100 03/15/22 10:16 03/15/22 07:32 74 03/15/22 07:00 36.6 C 71 16 121/79 99 O2 Del Method 03/15/22 16:39 Room Air 03/15/22 15:08 03/15/22 12:04 Room Air 03/15/22 10:16 Room Air 03/15/22 07:32 03/15/22 07:00 Room Air
[2022-03-15] MEDS ORDERED: QUEtiapine FUMARATE 25 MG TABLET PO SCH (21:00)
[2022-03-16 06:55] LABS: BUN Creatinine Ratio 45.3 (10-20); Calcium 8.5 mg/dl (8.5-10.1); Creatinine Clr Calc Pharmacy 111.8 ml/min; Est GFR (African American) 142.6 ml/min; Magnesium 1.7 mg/dl (1.7-2.4); Potassium 4.3 mmol/L (3.5-5.1)
[2022-03-16] MEDS: FLUTICASONE/VILANTEROL 200/25MCG 14 PUFFS/INHALER INH SCH (08:47)
[2022-03-16] MEDS: FOLIC ACID 1 MG TAB PO SCH (08:48)
[2022-03-16] MEDS: PANTOprazole 40 MG TAB PO SCH (08:48)
[2022-03-16] MEDS: THIAMINE HCL 100 MG TAB PO SCH (08:48)
[2022-03-16] MEDS: MAGNESIUM OXIDE 400 MG TAB PO SCH ×2 (08:48→13:45)
[2022-03-16] MEDS: INSULIN ASPART PER UNIT SC SCH ×3 (08:51→17:36)
[2022-03-16] MEDS ORDERED: LANTUS PER UNIT CHARGE SQ ONE (09:00)
[2022-03-16] MEDS: QUEtiapine FUMARATE 25 MG TABLET PO PRN (09:35)
--- NOTE | 2022-03-16 10:16 | Nephrology Progress Note ---
Date of Service March 16, 2022 Assessment & Plan Admission and Anticipated Discharge Date Admission Date: March 10, 2022 Subjective Subjective Assessment & Plan (1) Hyponatremia: Plan: hyponatremia due to polydipsia/low solute intake/Alcohol. Urine osmolality of 201 and urine sodium of 27; serum osms 264. Admission sodium was 117 on 03/10/2022 at 3 PM. Gone up nicely now 133 -limit po fluids to 1.8L -no IVF for now -next bmp in am+ phos and Mag -agree w/ corrections of other chemistries including K, phos,---All lytes normal . Did tell her that they are low because of poor PO intake Na is now out of danger--134. continue Fluid limit 1800ml/day However mag remains a challenge. With Prolonged QTc correct faster. After 3 gm iv and 400 tid finally low end of normal at 1.7. Continue mag ox 400 tid. It seems she needs a big dose. Stable for discharge from nephro standpoint. Subjective No new issues. Seen by Psych No pain, n,v, SOB. On fluid limit. Po intake still not so good Review of Systems Review of Systems: All systems reviewed & are unremarkable except as noted in Subjective Physical Exam Constitutional: well developed and + thin; no acute distress Eyes: EOM intact bilaterally ENMT: Ears: no external ear abnormality Nose: no external nose abnormality Mouth: + dry oral mucous membranes Neck: no nuchal rigidity Respiratory: normal respiratory effort Auscultation: + diminished lung sounds Cardiovascular: Rate/Rhythm: regular rate and regular rhythm Extremities: no edema Gastrointestinal (Abdomen): Inspection/Auscultation: normal bowel sounds Percussion/Palpation: abdomen soft; abdomen nontender Musculoskeletal: Extremities: strength 5/5 throughout Skin: no rashes, warm and dry Neurologic: leal, fluent speech, no tremor Psychiatric: Orientation: oriented to person, oriented to place and cooperative Results & Data ([facility]) Vital Signs (Past 12 Hours) Vital Signs Temp Pulse Pulse Resp BP Pulse Ox O2 Del Method 03/16/22 08:18 36.8 C 81 17 105/53 L 100 Room Air 03/16/22 07:13 68 03/16/22 03:42 37.0 C 68 20 109/64 100 Room Air 03/15/22 22:45 36.6 C 81 20 108/67 100 Room Air
[2022-03-16] MEDS: ENOXAPARIN INJ 30 MG/0.3 ML SYR SQ SCH (10:39)
--- NOTE | 2022-03-16 10:57 | Electrocardiogram Report ---
Test Reason : Blood Pressure : / mmHG Vent. Rate : 074 BPM Atrial Rate : 074 BPM P-R Int : 144 ms QRS Dur : 074 ms QT Int : 356 ms P-R-T Axes : 058 033 -03 degrees QTc Int : 395 ms Normal sinus rhythm Normal ECG When compared with ECG of 14-MAR-2022 08:50, Sinus rhythm has replaced Ectopic atrial rhythm QRS axis Shifted left T wave inversion no longer evident in Lateral leads Confirmed by Phil Robles ([id number]) on 03/16/2022 10:57:06 AM Referred By: REFERRED SELF Confirmed By:Luis Robles
--- NOTE | 2022-03-16 12:19 | Pharmacy Report ---
Pharmacy Glycemic Short Note 2 - Date of Service March 16, 2022 - Glycemic Short BSG Results (Last 24 hours): 03/15/22 03/15/22 03/16/22 16:37 20:19 05:42 Glucose 221 H POC Glucose 161 H 205 H 03/16/22 03/16/22 07:04 11:07 Glucose POC Glucose 233 H 96 OUTPATIENT ANTIDIABETIC REGIMEN: * Lispro PRN based upon blood sugar "doesn't use often" * A1c = 7.7% (03/11/22) ASSESSMENT: 03/16: * BSGs at goal ~50% of the time * Fasting hyperglycemia continues- will give a slightly larger dose of Lantus today, but plan to continue transition to HS dosing of Lantus to address AM rise * Post-prandial BSGs appear to be controlled with current Novolog CF/CR more often than not. Given the change in basal will not change bolus doses today. 03/15: * BSGs reasonably controlled over last 24 hrs * Fasting BSG elevated again this AM with 5 units basal on board, will continue with the same for now - but begin to transition dosing to HS as fasting AM hyperglycemia seem to be more problematic. Perhaps Lantus does not produce effects for 24 hrs. * Post-prandial BSGs fairly well controlled, continue same Novolog CF/CR for now 03/14: * BSGs [id number] the last 24h. Fasting elevated to 203mg/dL this AM. * No additional D5W given, Rocephin continues, tolerating a diet. * Plan to initiate low dose Lantus this AM given sustained elevated BSGs, 5 units this AM. Will reassess basal tomorrow. Novolog parameters tightened slightly at lunch today from 40/25 to 35/20. PLAN FOR INPATIENT GLYCEMIC CONTROL: * Basal insulin * Lantus 3 units SQ X 1 this AM; continue Lantus 5 units daily in the evening * Bolus insulin * NovoLog per scale ACHS or Q6hrs while NPO * Goal Range: Low 110 mg/dL - High 140 mg/dL * Correction Factor: 35 mg/dL/unit * Nutritional / Prandial insulin per carb ratio of 1 unit per 20 grams CHO consumed
[2022-03-16] MEDS: LORazepam 0.5 MG TAB PO PRN (12:28)
[2022-03-16] MEDS: MAGNESIUM SULFATE / D5W 1 GM/100 ML BAG IV SCH ×2 (12:28→14:07)
--- NOTE | 2022-03-16 14:03 | Communication Note ---
Date of Service: March 16, 2022 Interim progress reviewed. Briefly updated Dr. Soliman. Awaiting confirmation of dual IOP referral to [place]. Currently scheduled with [facility] for med man agement on 03/29/22. Since close f/u and diastolic bp <60 this am, would suggest holding hs Seroquel at 50 mg for now and may have additional 50 mg up to BID prn anxiety/paranoia. Patient is psychiatrically stable for discharge to outpatient level of care. She is significantly improved from admission.
[2022-03-16] MEDS ORDERED: QUEtiapine FUMARATE 25 MG TABLET PO PRN (14:18)
--- NOTE | 2022-03-16 14:26 | Hospitalist Progress Note ---
Date of Service March 16, 2022 Assessment & Plan (1) Altered mental status: (2) Acute hyponatremia: Plan 36-year-old lady with PMH of anxiety, depression, ADHD, bipolar disorder, IDDM, recurrent pancreatitis, choledocholithiasis, pancreatic pseudocyst, alcohol abuse, tobacco abuse presented to the ED 03/10 by the police after neighbors found her to be hallucinating on the porch. She is being managed for the following: Acute hyponatremia, likely SIADH vs Polydipsia/low solute intake: Hyponatremia with decreased serum osmolality with elevated urine osmolality. Acute metabolic encephalopathy Prolonged QTC: Likely secondary to electrolyte abnormalities versus psychiatric meds versus both. Monitor QTC daily. Nl - wnl Metabolic alkalosis Electrolyte abnormalities: Monitor and replete Patient presenting to ED 03/10 by police escort after her neighbors found her hallucinating on the porch Patient reports drinking 40 bottles of 16 ounce water every day and also reports drinking alcohol 2-3 times a week with about 5 to 7 glasses of mixed drinks. At presentation with several electrolytes derangement with sodium 117, potassium 2.3, magnesium 1.6 with ABG suggestive of metabolic alkalosis. Admitting UDS reviewed, positive for marijuana, Tylenol and salicylates negative. Metabolic encephalopathy multifactorial, psychogenic polydipsia playing a role as well. Patient under AWSS protocol. Monitor replete electrolytes, patient is oriented x3, patient reports improving hallucination, patient is cooperative. Pt advised to limit fluid intake to 2-3 L per day. Nephrology managing hyponatremia, appreciate recs. FR 1.8L. Mg dose being titrated. - Na improving to 134 - if continues to improve, will discharge home with below psych follow up Will continue with folic acid, thiamine. will discontinue ativan all together and try to manage with seroquel Psychiatry on board, managing psychiatric meds - recommend seroquel 50mg BID prn for anxiety - to have follow up with [place] for med management 03/29/2022 and referral for [facility] sent and pending E coli UTI: on rocephin 03/12 History of bipolar disorder/ANGE/major depressive disorder: Psychiatry on board, appreciate recommendation. DM type II: A1c 6.8 on 08/03. Patient does not appear to be using insulin currently. tooling specialist consult. On sliding scale while in hospital. - will discharge on metformin DVT prophylaxis: lovenox Full Code Dispo: likely [facility] w/ psychiatry clearance and recs if no new issues arises. Admission and Anticipated Discharge Date Admission Date: March 10, 2022 Subjective The patient is a 36 year old woman with pmh anxiety, depression, ADHD, bipolar disorder, DM on insulin, recurrent pancreatitis with pancreatic pseudocyst, alcohol use disorder, tobacco use disorder who presented for altered mental status and hallucinations. She was found to be severely hyponatremic to 117 with symptoms. She was admitted to PCU for close monitoring and frequent BMPs to monitor electrolytes. Na and other electrolytes improved with renal consult for assistance, symptoms improved markedly. Psychiatry was consulted for medication management and recommended starting quetiapine 50mg BID prn for anxiety and to have close outpatient follow up, [facility] was set up for 03/29/2022 with [place] [facility] for med management, referral for [facility] pending. Patient reports no symptoms this morning. Denies chest pain, shortness of breath, n/v/d, abdominal pain, fever or chills, hallucinations, weakness, cramping. Review of Systems Review of Systems: All systems reviewed & are unremarkable except as noted in Subjective Physical Exam Constitutional: WD/WN, vitals as above Eyes: PERRL, conjunctivae normal, anicteric sclerae ENMT: external ear and nose normal, oropharynx normal Neck: trachea midline, no thyromegaly Respiratory: normal respiratory effort, lungs clear to auscultation Cardiovascular: RRR, no murmur, no edema Gastrointestinal (Abdomen): normal bowel sounds, soft, nontender, no hepatosplenomegaly Musculoskeletal: no cyanosis or clubbing, extremities motor strength 5/5 Skin: no rashes, warm and dry Neurologic: patellar DTR's 2+ bilat, sensation intact and PERRL, EOMI, accommodation nl, no face palsy, no dysarthria Psychiatric: A+Ox3, euthymic affect Results & Data Results & Data ([facility]) Vital Signs (Past 12 Hours) Vital Signs Temp Pulse Pulse Resp BP Pulse Ox O2 Del Method 03/16/22 12:03 36.8 C 88 18 117/76 100 Room Air 03/16/22 08:18 36.8 C 81 17 105/53 L 100 Room Air 03/16/22 07:13 68 03/16/22 03:42 37.0 C 68 20 109/64 100 Room Air Laboratory Results [facility] 03/16/22 05:42 Sodium 134 L Potassium 4.3 Chloride 104 Carbon Dioxide 25 BUN 24 H Creatinine 0.53 L Glucose 221 H Calcium 8.5 Medications Administered Current Inpatient Medications Acetaminophen (Acetaminophen 325 Mg Tab) 650 mg PO Q4H PRN PRN Reason: Pain Stop: 04/10/22 06:06 Last Admin: 03/13/22 05:06 Dose: 650 mg Albuterol (Albut/Ipratrop 3mg/0.5mg Neb 3 Ml Vial) 3 ml NEB Q4R PRN; Protocol PRN Reason: Shortness Of Breath Or Wheezing Stop: 04/09/22 22:59 Enoxaparin Sodium (Enoxaparin Inj 30 Mg/0.3 Ml Syr) 30 mg SQ Q24H [facility] Stop: 04/10/22 10:59 Last Admin: 03/16/22 10:39 Dose: Not Given Fluticasone/Vilanterol (Fluticasone/Vilanterol 200/25mcg 14 Puffs/Inhaler) 1 puffs INH DAILY [facility]; Protocol Stop: 04/10/22 08:59 Last Admin: 03/16/22 08:47 Dose: 1 puffs Folic Acid (Folic Acid 1 Mg Tab) 1 mg PO QAM [facility] Stop: 04/10/22 12:59 Last Admin: 03/16/22 08:48 Dose: 1 mg Ceftriaxone Sodium 1,000 mg/ (Sodium Chloride) 60 mls @ 100 mls/hr IV DAILY [facility]; Protocol Stop: 03/17/22 09:14 Last Infusion: 03/16/22 09:23 Dose: Infused Magnesium Sulfate/Dextrose (Magnesium Sulfate / D5w) 1 gm in 100 mls @ 50 mls/hr IV Q2H [facility] Stop: 03/16/22 16:14 Last Admin: 03/16/22 14:07 Dose: 50 mls/hr Insulin Aspart (Insulin Aspart Per Unit) 0 units SC ACHS [facility] Stop: 04/09/22 20:59 Last Admin: 03/16/22 12:02 Dose: Not Given Insulin Glargine (Lantus Per Unit Charge) 5 units SQ HS [facility] Stop: 04/15/22 20:59 Lorazepam (Lorazepam 0.5 Mg Tab) 0.25 mg PO TID PRN PRN Reason: Anxiety Stop: 04/13/22 23:17 Last Admin: 03/16/22 12:28 Dose: 0.25 mg Magnesium Oxide (Magnesium Oxide 400 Mg Tab) 400 mg PO TID [facility] Stop: 04/14/22 13:59 Last Admin: 03/16/22 13:45 Dose: 400 mg Miscellaneous Information (Pharmacy Glycemic Mgmt Consult) 1 each N/A UD PRN PRN Reason: Consult Stop: 04/09/22 19:40 Pantoprazole Sodium (Pantoprazole 40 Mg Tab) 40 mg PO QAM [facility] Stop: 04/11/22 12:59 Last Admin: 03/16/22 08:48 Dose: 40 mg Quetiapine Fumarate (Quetiapine Fumarate 25 Mg Tablet) 50 mg PO BID PRN PRN Reason: Anxiety Stop: 04/14/22 11:14 Thiamine HCl (Thiamine Hcl 100 Mg Tab) 100 mg PO QAM [facility] Stop: 04/10/22 12:59 Last Admin: 03/16/22 08:48 Dose: 100 mg Trazodone HCl (Trazodone Hcl 50 Mg Tab) 50 mg PO HS PRN PRN Reason: Insomnia Stop: 04/13/22 13:13
--- NOTE | 2022-03-16 19:11 | Discharge Summary ---
Date of Service March 16, 2022 Admission HPI Per Admitting Provider 36-year-old female with PMH anxiety, depression, ADHD, bipolar disorder, IDDM, recurrent pancreatitis, choledocholithiasis, pancreatic pseudocyst, alcohol abuse, and other problems listed below who was brought to the ED by the police after neighbors found her to be hallucinating on the porch. History is currently unobtainable from the patient as she is very delirious. She states that her ex- brought her children to her house and they were on the roof sliding down. When patient was asked if she is taking her insulin she states, "When I need it, but I usually don't need it. I just feel my skin to see if I need it." Patient reports she is drinking alcohol however however cannot quantify the amount. States she also drinks "40 bottles" of water per day. In the ED, patient is found to have severe electrolyte derangements with Na+ 117, K+ 2.3, Mg+ 1.6, glucose 381. Admission Exam Per Admitting Provider Constitutional: + thin; no acute distress Eyes: PERRL, conjunctivae normal, anicteric sclerae ENMT: external ear and nose normal, oropharynx normal Respiratory: normal respiratory effort, lungs clear to auscultation Cardiovascular: Rate/Rhythm: regular rate and regular rhythm Vessels: normal peripheral pulses Extremities: no edema Gastrointestinal (Abdomen): normal bowel sounds, soft, nontender, no hepatosplenomegaly Musculoskeletal: no cyanosis or clubbing, extremities motor strength 5/5 Skin: no rashes, warm and dry Neurologic: PERRL, EOMI, accommodation nl, no face palsy, no dysarthria Psychiatric: Orientation: alert, oriented to person and cooperative; + not oriented to place and + not oriented to time Thought Process: + tangential thought process and + flight of ideas Thought Content: + delusions Principal Diagnosis hyponatremia Discharge Exam Constitutional WD/WN, vitals as above Eyes PERRL, conjunctivae normal, anicteric sclerae ENMT external ear and nose normal, oropharynx normal Neck trachea midline, no thyromegaly Respiratory normal respiratory effort, lungs clear to auscultation Cardiovascular RRR, no murmur, no edema Gastrointestinal (Abdomen) normal bowel sounds, soft, nontender, no hepatosplenomegaly Musculoskeletal no cyanosis or clubbing, extremities motor strength 5/5 Skin no rashes, warm and dry Neurologic patellar DTR's 2+ bilat, sensation intact and PERRL, EOMI, accommodation nl, no face palsy, no dysarthria Psychiatric A+Ox3, euthymic affect Discharge Data Allergies Allergy/AdvReac Type Severity Reaction Status Date / Time bee venom protein (honey bee) Allergy Severe ANAPHYLAXIS Verified 02/11/22 07:20 Consultations 03/10/22 17:06 ED Decision to Admit Stat 03/10/22 19:41 Consult Driver Material Handler Routine Consult Mental Health [Consult Psychiatry] Routine 03/10/22 19:47 Consult Nephrology Routine Ordered Studies 03/10/22 15:41 CT head/brain wo con Stat Hospital Course (1) Altered mental status: (2) Acute hyponatremia: Plan 36-year-old lady with PMH of anxiety, depression, ADHD, bipolar disorder, IDDM, recurrent pancreatitis, choledocholithiasis, pancreatic pseudocyst, alcohol abuse, tobacco abuse presented to the ED 03/10 by the police after neighbors found her to be hallucinating on the porch. She is being managed for the following: Acute hyponatremia, likely SIADH vs Polydipsia/low solute intake: Hyponatremia with decreased serum osmolality with elevated urine osmolality. Acute metabolic encephalopathy Prolonged QTC: Likely secondary to electrolyte abnormalities versus psychiatric meds versus both. Monitor QTC daily. Nl - wnl Metabolic alkalosis Electrolyte abnormalities: Monitor and replete Patient presenting to ED 03/10 by police escort after her neighbors found her hallucinating on the porch Patient reports drinking 40 bottles of 16 ounce water every day and also reports drinking alcohol 2-3 times a week with about 5 to 7 glasses of mixed drinks. At presentation with several electrolytes derangement with sodium 117, potassium 2.3, magnesium 1.6 with ABG suggestive of metabolic alkalosis. Admitting UDS reviewed, positive for marijuana, Tylenol and salicylates negative. Metabolic encephalopathy multifactorial, psychogenic polydipsia playing a role as well. Patient under AWSS protocol. Monitor replete electrolytes, patient is oriented x3, patient reports improving hallucination, patient is cooperative. Pt advised to limit fluid intake to 2-3 L per day. Nephrology managing hyponatremia, appreciate recs. FR 1.8L. Mg dose being titrated. - Na improving to 134 - if continues to improve, will discharge home with below psych follow up Will continue with folic acid, thiamine. will discontinue ativan all together and try to manage with seroquel Psychiatry on board, managing psychiatric meds - recommend seroquel 50mg BID prn for anxiety - to have follow up with [facility] for med management 03/29/2022 and referral for [facility] sent and pending E coli UTI: on rocephin 03/12 History of bipolar disorder/ANGE/major depressive disorder: Psychiatry on board, appreciate recommendation. DM type II: A1c 6.8 on 08/03. Patient does not appear to be using insulin currently. museum educator consult. On sliding scale while in hospital. - will discharge on metformin DVT prophylaxis: lovenox Full Code Dispo: likely DC [facility] w/ psychiatry clearance and recs if no new issues arises. Total Time Total Time Spent Total Time Spent (In Minutes): 23 Total Time Includes: Examination of the Patient, Discharge Planning, Medication Reconciliation and Communication With Other Providers Discharge Plan Discharge Items Patient Disposition: Home - Self-Care Reason For Visit: SEVERE HYPONATREMIA Discharge Diagnosis: hyponatremia Condition on Discharge: Fair Activity: Resume your previous activity Non-emergency contact: Primary Care Provider and Psychiatrist Call non-emergency contact if: you have any medication questions and your symptoms worsen Follow-up/Referrals: [facility] [Outside] - 03/29/22 8:00 am Leola Alves MD [Physician] - Harinder Nathan DO [Primary Care Provider] - (Date & Time 03/23/2022 11:00 AM Provider Harinder Nathan DO Department [facility] ) Diet: Carb Consistent or DM2 Addtl Attending Provider Instructions: You admitted for very low sodium in your blood causing you to have altered mental status. This could be from medications and/or excessive drinking of water. You were put on water restriction with steady improvement in your sodium. You were seen by nephrology to help manage this in the hospital. Psychiatry also evaluated you and recommended seroquel 50mg 2x/day as needed for anxiety and to follow up with [facility] for medication management and have sent a referral to [facility] for ongoing treatment. Please take care to limit yourself to about 2-3L of water per day (4-5 20oz bottles of water per day). Please follow up with your PCP for repeat blood work and post discharge follow up. Pending Studies at Discharge: No Stand-Alone Forms: My [facility], Smoking Cessation Medications and DC Order Prescriptions: New quetiapine 25 mg Tablet 50 mg PO BID PRN (Reason: anxiety) Qty: 60 0RF folic acid 1 mg Tablet 1 mg PO QAM Qty: 30 0RF Continued epinephrine 0.3 mg/0.3 mL auto-injector 0.3 mg IM UD PRN (Reason: Allergic Reaction) buspirone 5 mg tablet 5 mg PO BID PRN (Reason: Anxiety) fluticasone propion-salmeterol [Advair Diskus] 250-50 mcg/dose blister with device 1 inh INHALATION BID PRN (Reason: Shortness Of Breath) hydroxyzine HCl 50 mg tablet 50 mg PO BID PRN (Reason: Anxiety) insulin lispro 100 unit/mL solution See Rx Instructions .ROUTE .COMPLEX Rx Instructions: Pt reports that she is using this prn based on her blood sugar levocetirizine [24HR Allergy Relief] 5 mg tablet 5 mg PO HS Enema 19-7 gram/118 mL enema 118 ml [place] DAILY MDD 118 PRN (Reason: constipation) Qty: 931 0RF polyethylene glycol 3350 [Miralax] 17 gram/dose powder 17 g PO DAILY Qty: 119 0RF ondansetron 4 mg tablet,disintegrating 4 mg PO DAILY PRN (Reason: nausea and vomiting) Qty: 30 0RF magnesium oxide 400 mg (241.3 mg magnesium) tablet 400 mg PO QAM Medical Marijuana 1 dose inhalation HS PRN (Reason: Sleep) pantoprazole [Protonix] 40 mg tablet,delayed release (DR/EC) 40 mg PO BID celecoxib [Celebrex] 100 mg capsule 100 mg PO BID PRN (Reason: pain) Rx Instructions: take with large meal, prn for severe pain thiamine HCl (vitamin B1) [Vitamin B-1] 100 mg Tablet 100 mg PO QAM Qty: 30 0RF trazodone 50 mg tablet 50 mg PO HS PRN (Reason: Insomnia) aripiprazole [Abilify] 5 mg tablet 5 mg PO QAM Discontinued cyclobenzaprine 5 mg tablet 5 mg PO BID PRN (Reason: Muscle Spasm) baclofen 10 mg tablet 10 mg PO AMHS Discharge Orders: Discharge Order (Routine); Ordered 03/16/22 Ordered By: Mckay Soliman Admission Data Admit Date/Time: 03/10/22 18:37 Attending Provider: Mckay Soliman Admit Provider: Jack Dominguez Primary Care Provider: Harinder Nathan Other Providers: Jack Dominguez ; Demarco Medrano ; Kamila Dye ; Leola Alves ; Wendie Naik ; Fatou Chou ; Leander Daly ; Jazzmine Truong Japheth E. ; Shiraz Short ; Paris Bone Other Interventions: Discharge Summary Assessment (RN) Last Done: 03/16/22 16:17
[2022-03-16] MEDS ORDERED: LANTUS PER UNIT CHARGE SQ SCH (21:00)
== END 2022-03-16 17:57 | disposition home or self-care (01) | DRG 643 ==
LOC: ED 15:11 → SUATTDRO 18:37 → 1E 18:37 → 2E 03-13 16:45
DX: G93.41 Metabolic encephalopathy; E87.3 Alkalosis; E11.65 Type 2 diabetes mellitus with hyperglycemia; F31.9 Bipolar disorder, unspecified; K86.0 Alcohol-induced chronic pancreatitis; F41.1 Generalized anxiety disorder; E83.39 Other disorders of phosphorus metabolism; K86.3 Pseudocyst of pancreas; N39.0 Urinary tract infection, site not specified; F10.231 Alcohol dependence with withdrawal delirium; E87.6 Hypokalemia; F90.9 Attention-deficit hyperactivity disorder, unspecified type; E83.42 Hypomagnesemia; R44.3 Hallucinations, unspecified; K21.9 Gastro-esophageal reflux disease without esophagitis; K86.1 Other chronic pancreatitis; B96.20 Unspecified Escherichia coli [E. coli] as the cause of diseases classified elsewhere; Z79.4 Long term (current) use of insulin; E22.2 Syndrome of inappropriate secretion of antidiuretic hormone

== ENCOUNTER 2022-08-05 22:54 | Inpatient (IN) ==
[2022-08-05] MEDS ORDERED: SODIUM CHLORIDE 0.9% 1000ML 1,000 ML IV STA (23:12)
[2022-08-05] MEDS ORDERED: MoRPHine SULFATE 10 MG/ML CARP/VIAL IV STA (23:19)
[2022-08-05] MEDS ORDERED: ONDANSETRON INJ 2 MG/ML 2 ML VIAL IV STA (23:19)
--- NOTE | 2022-08-05 23:36 | Emergency Department Note ---
Impression & Plan Epigastric abdominal pain, Acute pancreatitis, Vomiting, Hypokalemia ED Provider Note NAME: JULIA WEBB AGE: 36 SEX: F : 1985 ARRIVES VIA: Walk-In INFORMANT: [Patient] ED PROVIDER(S): [Raghu Agudelo MD] CHIEF COMPLAINT: Abdominal pain HISTORY OF PRESENT ILLNESS: The patient is a 36-year-old female who had an endoscopy and ERCP today. She had some sphincters dilated during the procedure. The patient states that she left feeling okay but about an hour after she returned home, she began having abdominal pain. She now has had 12 hours of symptoms. She has significant upper abdominal pain that radiates to the back. Her ribs seems sore. She has h ad nausea and vomiting. Patient states that this feels like a pancreatitis flare. There has been no fever, no diarrhea. No cough or cold or congestion. REVIEW OF SYSTEMS: See HPI for pertinent positives and negatives. A total of ten systems were reviewed and were otherwise negative. PMHx/PSHx: See Below SOCIAL HISTORY: See Below. PHYSICAL EXAM: GENERAL: Patient is in mild distress from pain. HEENT: No acute trauma, normocephalic atraumatic, mucous membranes moist, no nasal congestion, no scleral icterus. NECK: No stridor, no adenopathy, no meningismus, trachea is midline. LUNGS: Clear to auscultation bilaterally, no wheeze, no rhonchi, breath sounds equal. HEART: 2/6 systolic murmur, mildly tachycardic, regular rhythm. ABDOMEN: Soft, diffusely tender but tender primarily in the epigastrium, no peritonitis EXTREMITIES: No cyanosis or edema, full range of motion of all the joints without pain or difficulty, no signs for acute trauma. NEUROLOGIC: Oriented x 3, no acute motor or sensory deficits, no focal weakness. SKIN: No rash, no jaundice, no diaphoresis. DIFFERENTIAL DIAGNOSIS: Appendicitis, ovarian cyst, ovarian torsion, ectopic , diverticulitis, UTI, obstruction, mesenteric ischemia, aortic pathology, inflammatory bowel dis ease, renal colic, PUD, pancreatitis, biliary pathology, hernia, volvulus, constipation, as well as other pathologies. EMERGENCY DEPARTMENT COURSE/PROCEDURES: Continuous Cardiac Monitoring: An order was placed for continuous cardiac monitoring. The monitor shows a rate of 121 with sinus tachycardia. MEDICAL DECISION MAKING: There is a significant leukocytosis at 20,000, this is consistent with her pain and vomiting or possibly infection. There is a normal hemoglobin and platelet count. Potassium was low at 3.2. No renal failure. Liver enzyme elevation was noted. Lipase elevation was noted consistent with pancreatitis. testing was negative. COVID test returned negative. Chest film does not show pneumonia or CHF, no free air. Abdominal and pelvis CT shows similar findings to a previous CT that was performed, no acute surgical pathology noted. No free air. The patient received IV saline, 1.5 L. She was given IV Zofran, IV morphine. She received IV potassium. The patient does have acute pancreatitis. The pancreatitis flare is likely a result of the ERCP performed earlier today. I did speak with the patient about her findings, I did speak with case management. I did consult the on-call hospitalist. Of note, the patient is feeling improved with the treatment administered here in the ED. Past Med/Surg History Medical History Alcohol use disorder Anxiety H/O Asthma well controlled Cardiac murmur no significant valvular disease on 08/20/2019 echo Chronic neck pain Depression H/O Diabetes IDDM ANGE (generalized anxiety disorder) GERD (gastroesophageal reflux disease) R/T History of pancreatitis HTN (hypertension) no meds Major depressive disorder (05/02/11) Medical marijuana use Pancreatitis H/O Post traumatic stress disorder (PTSD) Scoliosis MINOR Surgical History History of adenoidectomy History of section x 2 History of ERCP History of esophagogastroduodenoscopy (EGD) History of tonsillectomy Family History Other Adopted Social History Smoking Status: Current every day smoker Tobacco Type: E-cigarettes / Vaping Second Hand Exposure: No; Hx Alcohol Use: No Hx Substance Use: Yes (smokes every other day - advised) Prescribed Me dications: Marijuana Last Used Substance: Just Prior to Arrival Last Used Substance Other:: reports last used on 11/17/21 Substance Use Type Other:: medical marijuana Preferred Language: Togolese 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: Effective Email Administrator Required: No Beliefs That Will Affect Care: None marital status: Single Current Living Situation: Alone Current Living Situation Comment: with kids Feels Safe at Home: Yes Assistive Devices: None Allergies Allergies Allergy/AdvReac Type Severity Reaction Status Date / Time bee venom protein (honey bee) Allergy Severe ANAPHYLAXIS Verified 08/05/22 23:34 Home Meds Home Medications Medication Instructions Recorded Confirmed trazodone 50 mg tablet 50 mg PO HS 10/06/21 08/05/22 buspirone 5 mg tablet 5 mg PO BID PRN Anxiety 11/18/21 08/05/22 epinephrine 0.3 mg/0.3 mL 0.3 mg IM UD PRN Allergic Reaction 11/18/21 08/05/22 injection, auto-injector fluticasone 250 mcg-salmeterol 50 1 inh inhalation BID PRN Shortness 11/18/21 08/05/22 mcg/dose blistr powdr for Of Breath inhalation (Advair Diskus) hydroxyzine HCl 50 mg tablet 50 mg PO BID PRN Anxiety 11/18/21 08/05/22 insulin lispro 100 unit/mL See Rx Instructions .Route .COMPLEX 11/18/21 08/05/22 subcutaneous solution Medical Marijuana 1 dose inhalation HS PRN Sleep 02/08/22 08/05/22 celecoxib 100 mg capsule (Celebrex) 100 mg PO BID PRN pain 02/11/22 08/05/22 pantoprazole 40 mg tablet,delayed 40 mg PO BID 02/11/22 08/05/22 release (Protonix) aripiprazole 400 mg intramuscular 400 mg IM MONTHLY 08/02/22 08/05/22 suspension,extended release (Abilify Maintena) lamotrigine 25 mg tablet (Lamictal) 75 mg PO QAM 08/02/22 08/05/22 potassium citrate 10 mEq (1,080 10 meq PO BID 08/02/22 08/05/22 mg) tablet,extended release Previous Rx's Medication Instructions Recorded thiamine HCl (vitamin B1) 100 mg 100 mg PO QAM #30 tabs 08/16/21 tablet (Vitamin B-1) ondansetron 4 mg disintegrating 4 mg PO DAILY PRN nausea and 11/21/21 tablet vomiting #30 tabs polyethylene glycol 3350 17 17 g PO DAILY constipation #119 11/21/21 gram/dose oral powder (Miralax) grams sodium phosphates 19 gram-7 118 ml HI DAILY PRN constipation 11/21/21 gram/118 mL enema (Enema) #931 mL Results & Data (ED) Vital Signs Vital Signs - 24 hr 08/05/22 23:00 08/06/22 00:00 08/06/22 00:30 Temperature 36.6 C Temperature Source Temporal Artery Scan Pulse Rate 101 H 96 H 94 H Pulse Rate from SpO2 Sensor 94 H 94 H Pulse Rhythm Respiratory Rate 20 17 19 Respiratory Effort / Characteristics Non-Labored Spontaneous Respiratory Depth Normal Blood Pressure 106/70 118/77 115/78 Blood Pressure Mean 82 90 90 Blood Pressure Position Sitting Pulse Oximetry 98 98 99 Oxygen Delivery Method Room Air Sepsis Recent Fever Within 48 Hours No Sepsis New/Unexplained Change in Mental Status N/A Sepsis Action Taken by Nursing No Action Required 08/06/22 01:00 08/05/22 23:12 Temperature Temperature Source Pulse Rate 100 H 96 H Pulse Rate from SpO2 Sensor 100 H Pulse Rhythm Regular Respiratory Rate 21 16 Respiratory Effort / Characteristics Respiratory Depth Blood Pressure 130/91 Blood Pressure Mean 104 Blood Pressure Position Pulse Oximetry 97 99 Oxygen Delivery Method Room Air Sepsis Recent Fever Within 48 Hours Sepsis New/Unexplained Change in Mental Status Sepsis Action Taken by [facility] Medications Current Medication List: was personally reviewed by me Laboratory Data Attestation: I reviewed the patient's lab results. Result diagrams: 08/05/22 Unknown 08/05/22 Unknown Lab Results 08/05/22 08/05/22 08/05/22 Range/Units Unknown Unknown Unknown WBC 20.87 H (4.8-10.8) K/ul RBC 4.69 (3.93-5.22) M/uL Hgb 14.5 (12.0-16.0) g/dl Hct 41.1 (34.1-44.9) % MCV 87.6 (80.0-100.0) fL MCH 30.9 (25.0-34.0) pg MCHC 35.3 (32.0-36.0) g/dL RDW Std Deviation 38.2 (36.4-46.3) fL RDW Coeff of Arnold 11.9 (11.5-14.5) % Plt Count 346 (130-400) K/uL MPV 10.2 (9.4-12.3) fL Immature Gran % (Auto) 0.3 % Neut % (Auto) 92.9 % Lymph % (Auto) 5.0 % [place] % (Auto) 1.7 % Eos % (Auto) 0.0 % Baso % (Auto) 0.1 % Neut # (Auto) 19.36 H (1.4-6.5) K/uL Lymph # (Auto) 1.04 L (1.2-3.4) K/uL [place] # (Auto) 0.36 (0.24-0.82) K/uL Eos # (Auto) 0.01 (0-0.50) K/uL Baso # (Auto) 0.03 (0-0.2) K/uL Immature Gran # (Auto) 0.07 H (0.00-0.02) K/uL Sodium 140 (136-145) mmol/L Potassium 3.2 L (3.5-5.1) mmol/L Chloride 102 (98-107) mmol/L Carbon Dioxide 26 (21-32) mmol/L Anion Gap 12 H (3-11) BUN 13 (6-23) mg/dl Creatinine 0.52 L (0.6-1.2) mg/dl Est Cr Clr Drug Dosing 113.9 ml/min Est GFR ( Amer) 143.5 ml/min Est GFR (Non-Af Amer) 123.8 ml/min BUN/Creatinine Ratio 25.0 H (10-20) Glucose 213 H (70-99(Fasting)) mg/dl Calcium 9.7 (8.5-10.1) mg/dl Total Bilirubin 1.7 H (0.2-1.0) mg/dl AST 647 H (13-39) U/L ALT 376 H (7-52) U/L Alkaline Phosphatase 117 H (34-104) U/L Total Protein 7.7 (6.0-8.3) gm/dl Albumin 4.1 (3.4-5.0) gm/dl Globulin 3.6 (2.5-4.0) gm/dl Albumin/Globulin Ratio 1.1 (0.9-2) Lipase 3561 H (11-82) U/L HCG, Qual Negative (Negative) SARS-CoV-2, RNA, NAAT (NEGATIVE) 08/05/22 Range/Units Unknown WBC (4.8-10.8) K/ul RBC (3.93-5.22) M/uL Hgb (12.0-16.0) g/dl Hct (34.1-44.9) % MCV (80.0-100.0) fL MCH (25.0-34.0) pg MCHC (32.0-36.0) g/dL RDW Std Deviation (36.4-46.3) fL RDW Coeff of Arnold (11.5-14.5) % Plt Count (130-400) K/uL MPV (9.4-12.3) fL Immature Gran % (Auto) % Neut % (Auto) % Lymph % (Auto) % [place] % (Auto) % Eos % (Auto) % Baso % (Auto) % Neut # (Auto) (1.4-6.5) K/uL Lymph # (Auto) (1.2-3.4) K/uL [place] # (Auto) (0.24-0.82) K/uL Eos # (Auto) (0-0.50) K/uL Baso # (Auto) (0-0.2) K/uL Immature Gran # (Auto) (0.00-0.02) K/uL Sodium (136-145) mmol/L Potassium (3.5-5.1) mmol/L Chloride (98-107) mmol/L Carbon Dioxide (21-32) mmol/L Anion Gap (3-11) BUN (6-23) mg/dl Creatinine (0.6-1.2) mg/dl Est Cr Clr Drug Dosing ml/min Est GFR ( Amer) ml/min Est GFR (Non-Af Amer) ml/min BUN/Creatinine Ratio (10-20) Glucose (70-99(Fasting)) mg/dl Calcium (8.5-10.1) mg/dl Total Bilirubin (0.2-1.0) mg/dl AST (13-39) U/L ALT (7-52) U/L Alkaline Phosphatase (34-104) U/L Total Protein (6.0-8.3) gm/dl Albumin (3.4-5.0) gm/dl Globulin (2.5-4.0) gm/dl Albumin/Globulin Ratio (0.9-2) Lipase (11-82) U/L HCG, Qual (Negative) SARS-CoV-2, RNA, NAAT NEGATIVE (NEGATIVE) Administered Medications Morphine Sulfate (Morphine Sulfate 4 Mg/Ml 1 Ml Carp\Vial) 4 mg IV Q30M PRN PRN Reason: Pain Stop: 08/19/22 23:18 Last Admin: 08/06/22 00:59 Dose: 4 mg Documented By: CRISTOPHER Discontinued Medications Sodium Chloride (Nss 1000ml) 1,000 mls @ 999 mls/hr IV .Q1H1M STA Stop: 08/06/22 00:12 Last Infusion: 08/06/22 01:01 Dose: 0 mls/hr Documented By: Admin: 08/05/22 23:43 Dose: 999 mls/hr Documented By: CRISTOPHER Ioversol (Optiray 350 100ml) 89 ml IV ONCE ONE Stop: 08/06/22 00:49 Last Admin: 08/06/22 00:48 Dose: 89 ml Documented By: JIM Morphine Sulfate (Morphine Sulfate 10 Mg/Ml Carp/Vial) 6 mg IV NOW STA Stop: 08/05/22 23:20 Last Admin: 08/05/22 23:39 Dose: 6 mg Documented By: CRISTOPHER Ondansetron HCl (Ondansetron Inj 2 Mg/Ml 2 Ml Vial) 4 mg IV NOW STA Stop: 08/05/22 23:20 Last Admin: 08/05/22 23:39 Dose: 4 mg Documented By: CRISTOPHER Imaging Data Attestation: I personally reviewed and interpreted this imaging study as follows: My Impression: Chest x-ray: There is no mediastinal widening, no pneumonia, no free air. Radiologist's Impression: Abdominal and pelvis CT with contrast: No acute pathology is identified. The imaging is similar to a CT from November of this year. There is significant pancreatic ductal dilatation without the previously seen stent in place. This extends to a hypodense region in the pancreatic head and correlation with prior history is recommended. Discharge Plan Visit Data Chief Complaint: Abdominal Pain Stated Complaint: SURGERY TODAY, PANCREATITIS,VOMIT,ABDOMINAL PAIN ED Provider: Raghu Agudelo Discharge Problem: Epigastric abdominal pain, Acute pancreatitis, Vomiting, Hypokalemia Patient Disposition: Admitted As Inpatient Condition: Fair Forms Stand Alone Forms: My [facility] Prescriptions Prescriptions: No Action epinephrine 0.3 mg/0.3 mL auto-injector 0.3 mg IM UD PRN (Reason: Allergic Reaction) buspirone 5 mg tablet 5 mg PO BID PRN (Reason: Anxiety) fluticasone propion-salmeterol [Advair Diskus] 250-50 mcg/dose blister with device 1 inh INHALATION BID PRN (Reason: Shortness Of Breath) hydroxyzine HCl 50 mg tablet 50 mg PO BID PRN (Reason: Anxiety) insulin lispro 100 unit/mL solution See Rx Instructions .ROUTE .COMPLEX Rx Instructions: Pt reports that she is using this prn based on her blood sugar Enema 19-7 gram/118 mL enema 118 ml HI DAILY MDD 118 PRN (Reason: constipation) Qty: 931 0RF polyethylene glycol 3350 [Miralax] 17 gram/dose powder 17 g PO DAILY Qty: 119 0RF ondansetron 4 mg tablet,disintegrating 4 mg PO DAILY PRN (Reason: nausea and vomiting) Qty: 30 0RF Medical Marijuana 1 dose inhalation HS PRN (Reason: Sleep) pantoprazole [Protonix] 40 mg tablet,delayed release (DR/EC) 40 mg PO BID celecoxib [Celebrex] 100 mg capsule 100 mg PO BID PRN (Reason: pain) Rx Instructions: take with large meal, prn for severe pain Abilify Maintena 400 mg Suspension,Extended Rel Recon 400 mg IM MONTHLY lamotrigine [Lamictal] 25 mg Tablet 75 mg PO QAM potassium citrate 10 mEq (1,080 mg) Tablet Extended Release 10 meq PO BID thiamine HCl (vitamin B1) [Vitamin B-1] 100 mg Tablet 100 mg PO QAM Qty: 30 0RF trazodone 50 mg tablet 50 mg PO HS Referrals Referrals: Harinder Nathan, [Primary Care Provider] -
[2022-08-05 23:42] LABS: Hematocrit (blood only) 41.1 % (34.1-44.9); Hemoglobin 14.5 g/dl (12.0-16.0); Mean Corpuscular Hemoglobin 30.9 pg (25.0-34.0); Mean Corpuscular Hgb Conc 35.3 g/dL (32.0-36.0); Mean Corpuscular Volume 87.6 fL (80.0-100.0); Mean Platelet Volume 10.2 fL (9.4-12.3); Platelet Count 346 K/uL (130-400); RDW Coefficient of Variation 11.9 % (11.5-14.5); RDW Standard Deviation 38.2 fL (36.4-46.3); Red Blood Count 4.69 M/uL (3.93-5.22); White Blood Count 20.87 K/ul (4.8-10.8)
[2022-08-05 23:58] LABS: Pregnancy Test, Serum Negative (Negative)
[2022-08-06 00:04] LABS: Basophils # (auto) 0.03 K/uL (0-0.2); Basophils % (auto) 0.1 %; Eosinophils # (auto) 0.01 K/uL (0-0.50); Immature Granulocytes # (auto) 0.07 K/uL (0.00-0.02); Immature Granulocytes % (auto) 0.3 %; Lymphocytes # (auto) 1.04 K/uL (1.2-3.4); Monocytes # (auto) 0.36 K/uL (0.24-0.82); Monocytes % (auto) 1.7 %; Neutrophils # (auto) 19.36 K/uL (1.4-6.5); Neutrophils % (auto) 92.9 %
[2022-08-06 00:05] LABS: Calcium 9.7 mg/dl (8.5-10.1); Creatinine Clr Calc Pharmacy 113.9 ml/min; Est GFR (African American) 143.5 ml/min; Est GFR (Non-African American) 123.8 ml/min; Potassium 3.2 mmol/L (3.5-5.1)
[2022-08-06] MEDS ORDERED: OPTIRAY 350 100ml IV ONE (00:48)
[2022-08-06 00:49] LABS: Albumin Globulin Ratio 1.1 (0.9-2); Albumin Level 4.1 gm/dl (3.4-5.0); Bilirubin,Total 1.7 mg/dl (0.2-1.0); Globulin 3.6 gm/dl (2.5-4.0); Total Protein 7.7 gm/dl (6.0-8.3)
[2022-08-06] MEDS: MoRPHine SULFATE 4 MG/ML 1 ML CARP\\VIAL IV PRN ×2 (00:59→03:38)
[2022-08-06] MEDS ORDERED: POTASSIUM CHLORIDE / WTR 10 MEQ/100 ML PLCT IV ONE (01:25)
[2022-08-06] MEDS ORDERED: SODIUM CHLORIDE 0.9% 1000ML 500 ML IV ONE (01:27)
[2022-08-06 01:52] LABS: Appearance Urine Clear (Clear); Bacteria Urine Automated Negative (Negative); Blood Urine Negative (Negative); Color Urine Dark Yellow; Epithelial Cell Urine Auto >30 /lpf (0-5); Glucose Urine UA 1+ (Negative); Ketones Urine Trace (Negative); Leukocyte Esterase Urine Trace (Negative); Nitrite Urine Negative (Negative); Protein Urine 1+ (Negative); RBC Urine Automated 0-4 /hpf (0-4); Specific Gravity Urine 1.028 (1.000-1.030); Urobilinogen Urine Negative (Negative); pH Urine 6.5 (4.5-7.5)
[2022-08-06 02:01] LABS: Bilirubin Urine 2+ (Negative)
[2022-08-06] MEDS ORDERED: GLUCOSE 40% GEL 15 GM TUBE PO PRN (04:06)
[2022-08-06] MEDS ORDERED: EPINEPHrine ADULT AUTO-INJECT 0.3 MG SYR IM PRN (04:06)
[2022-08-06] MEDS ORDERED: ONDANSETRON INJ 2 MG/ML 2 ML VIAL IV PRN (04:06)
[2022-08-06] MEDS ORDERED: DEXTROSE 50% 50 ML SYRINGE IV PRN (04:06)
[2022-08-06] MEDS ORDERED: SOD PHOSPHATE/SOD BIPHOSPHATE ENEMA 132 ML BTL PR PRN (04:06)
[2022-08-06] MEDS ORDERED: GLUCAGON FOR INJ 1 MG VIAL SQ PRN (04:06)
[2022-08-06] MEDS ORDERED: hydrOXYzine HCl 25 MG TAB PO PRN (04:06)
[2022-08-06] MEDS ORDERED: GLUCOSE 10 TAB/TUBE PO PRN (04:06)
[2022-08-06] MEDS ORDERED: CARBOHYDRATES FOR HYPOGLYCEMIA PO PRN (04:06)
[2022-08-06] MEDS ORDERED: Nursing to Pharmacy Communication SCH ×2 (04:15→13:30)
[2022-08-06] MEDS ORDERED: FLUTICASONE/VILANTEROL 200/25MCG 14 PUFFS/INHALER INH PRN (04:41)
[2022-08-06] MEDS: LACTATED RINGER'S 1,000 ML IV SCH ×4 (04:52→22:12)
--- NOTE | 2022-08-06 05:23 | History and Physical Report ---
DATE OF ADMISSION: 08/06/2022. CHIEF COMPLAINT: Sever abdominal pain. HISTORY OF PRESENT ILLNESS: This is a 36-year-old female with past medical history significant for diabetes, history of gestational diabetes, allergic rhinitis, moderate persistent asthma, heart murmur, hypertension, vitamin D deficiency, GERD, history of alcoholism, currently under remission, says she is not drinking since last January, chronic neck pain, ADHD, depression, depression, primary insomnia, generalized anxiety disorder, who presents with abdominal pain. The patient has history of pancreatitis in the past and had ERCP done on 08/05/2022 and the patient had previously placed pancreatic duct stent that has spontaneously migrated over the duct. Found to have chronic pancreatitis and papillary stenosis post papillectomy. Biopsy was performed from ampullary area. Both biliary and pancreatic sphincterotomy extension was performed. PD orifice balloon dilatation, sphincteroplasty was performed, and the patient did fine, was discharged home, but the patient states after going home, she had lot of abdominal pain in the epigastric region, radiating to the back. She had nausea, vomiting, no blood in the vomitus. She came into the ER and found to have pancreatitis with a lipase of 3500, elevated LFTs. Received antiemetics and pain medication in the ER. Currently, resting comfortably, hemodynamically stable. Says the pain is still significant and requesting for pain medication . Denies any chest pain, no shortness of breath, no fevers, no headache, no blurred visions, no earache. Has some runny nose and sore throat and has some cough bringing up some phlegm. Constipated. Denies any blood in the stool or black stools. Normal bladder movements. No swelling in the legs. ALLERGIES: BEE VENOM. PAST MEDICAL HISTORY: As mentioned above. PAST SURGICAL HISTORY: , dental surgery, EGD with endoscopic ultrasound, ERCP. MEDICATIONS: The patient is on Abilify 400 mg IM monthly, buspirone 10 mg p.o. b.i.d. p.r.n., Celebrex 100 mg p.o. b.i.d. p.r.n., enema p.r.n. epinephrine 0.3 mg IM p.r.n., Advair Diskus one inhalation b.i.d. p.r.n., hydroxyzine 50 mg p.o. b.i.d. p.r.n., Lantus 10 units subcutaneous daily, insulin lispro as directed, Lamictal 75 mg p.o. a.m., medical marijuana p.r.n., Zofran p.o. daily p.r.n., Protonix 40 mg p.o. b.i.d., MiraLax 17 g p.o. daily, potassium citrate 10 mg p.o. b.i.d., thiamine 100 mg p.o. daily, trazodone 50 mg p.o. at bedtime. FAMILY HISTORY: Significant for the patient was adopted. SOCIAL HISTORY: Quit smoking in September 2021. Smoked quarter pack a day, currently not drinking alcohol. Says she is sober since last January. Seems to be using marijuana for sleep, not daily. REVIEW OF SYSTEMS: As per HPI. PHYSICAL EXAMINATION: GENERAL: The patient is alert, oriented, not in acute distress. VITAL SIGNS: Temperature 36.6, pulse 100, respiratory rate 15, blood pressure 110/81, oxygen 96% on room air. HEENT: Pupils equal, round, and reactive to light. Oral mucosa moist. NECK: No JVD, no neck masses. CARDIOVASCULAR: S1 and S2 heard. Regular rate and rhythm. No murmur, no gallop. RESPIRATORY SYSTEM: Normal AP diameter. No accessory muscle use. No wheezing or crackles. ABDOMEN: Soft, bowel sounds present. Diffuse abdominal tenderness, guarding present. No rigidity, no distention. CENTRAL NERVOUS SYSTEM: Cranial nerves II-XII grossly intact, nonfocal. EXTREMITIES: No edema, no erythema. LABORATORY DATA: WBC 20, hemoglobin 14.5, hematocrit 41.1, platelets 346. Sodium 140, potassium 3.2, chloride 102, bicarbonate 26, BUN 13, creatinine 0.5, serum glucose 213, calcium 9.7, total bilirubin 1.7, AST 647, ALT 376, alkaline phosphatase 117. Lipase 3561, HCG qualitative negative. Urinalysis, trace ketones, +2 bilirubin. SARS-CoV-2 rapid test negative. IMAGING DATA: Chest x-ray, no acute findings. CT of abdomen and pelvis with contrast, there is significant pancreatic ductal dilatation without the previously seen stent in place. There is hypodense lesion in the pancreatic head and correlation recommended. ASSESSMENT AND PLAN: This is a 36-year-old female with past medical history significant for recurrent pancreatitis, status post ERCP yesterday and presents with abdominal pain and found to have pancreatitis. 1. History of recurrent pancreatitis, status post ERCP yesterday. Post- procedure pancreatitis, elevated LFTs. CT scan is showing pancreatic ductal dilatation as previous.Will follow final report of ct scan. Pain control with IV Dilaudid p.r.n., aggressive fluids with IV Ringer's lactate 200 mL per hour, IV antiemetics. Repeat LFTs in the a.m. Keep her n.p.o. Consult GI in the a.m. for further recommendations. 2. History of diabetes: Will cut back lantus to 5 units daily, insulin sliding scale. Follow the blood sugars. 3. History of bipolar disorder, history of generalized anxiety disorder, history of major depressive disorder, history of primary insomnia: Continue her home medications of Lamictal, gets Abilify injections. Continue with trazodone, hydroxyzine p.r.n., buspirone p.r.n. 4. Constipation: Stool softeners p.r.n. 5. History of prolonged QTc: Will follow the EKG. 6. Deep venous thrombosis prophylaxis: Will place her on Lovenox. DISPOSITION: Closely monitor in the medical floor. PT/OT prior to discharge. Social service to help with discharge planning. Job ID: [id number] [facility]
[2022-08-06] MEDS: INSULIN ASPART PER UNIT SC SCH ×5 (05:56→22:03)
[2022-08-06] MEDS: HYDROmorphone INJ 0.5 MG/0.5 ML SYR IV PRN ×6 (05:57→23:28)
[2022-08-06 08:05] LABS: Estimated Average Glucose 171 mg/dl; Hemoglobin A1C 7.6 % (4.5-5.6)
[2022-08-06 08:13] LABS: Hematocrit (blood only) 31.7 % (34.1-44.9); Hemoglobin 11.1 g/dl (12.0-16.0); Mean Corpuscular Hemoglobin 30.4 pg (25.0-34.0); Mean Corpuscular Volume 86.8 fL (80.0-100.0); Mean Platelet Volume 10.4 fL (9.4-12.3); Platelet Count 250 K/uL (130-400); RDW Coefficient of Variation 11.8 % (11.5-14.5); RDW Standard Deviation 38.1 fL (36.4-46.3); Red Blood Count 3.65 M/uL (3.93-5.22); White Blood Count 19.76 K/ul (4.8-10.8)
[2022-08-06 08:14] LABS: Basophils # (auto) 0.02 K/uL (0-0.2); Basophils % (auto) 0.1 %; Eosinophils # (auto) 0.01 K/uL (0-0.50); Eosinophils % (auto) 0.1 %; Immature Granulocytes # (auto) 0.14 K/uL (0.00-0.02); Immature Granulocytes % (auto) 0.7 %; Lymphocytes # (auto) 0.52 K/uL (1.2-3.4); Lymphocytes % (auto) 2.6 %; Monocytes # (auto) 0.26 K/uL (0.24-0.82); Monocytes % (auto) 1.3 %; Neutrophils # (auto) 18.81 K/uL (1.4-6.5); Neutrophils % (auto) 95.2 %
[2022-08-06 08:19] LABS: Albumin Level 3.2 gm/dl (3.4-5.0); Bilirubin Direct 1.3 mg/dl (0-0.2); Bilirubin,Total 1.8 mg/dl (0.2-1.0); Calcium 7.8 mg/dl (8.5-10.1); Creatinine Clr Calc Pharmacy 118.5 ml/min; Est GFR (African American) 145.3 ml/min; Est GFR (Non-African American) 125.4 ml/min; Potassium 3.1 mmol/L (3.5-5.1); Total Protein 5.8 gm/dl (6.0-8.3)
--- NOTE | 2022-08-06 08:42 | XRay Report ---
XR chest 1V portable HISTORY: Generalized abdominal pain. COMPARISON: Chest 03/12/2022. FINDINGS: The lungs are clear. Cardiac silhouette is normal in size. No pleural effusions. No pneumot horax. IMPRESSION: No acute process. ACT 112: Negative or not required by law. Electronically signed by: Kadeem Graff M.D. 08/06/2022 8:40 AM
[2022-08-06] MEDS: POTASSIUM CHLORIDE / WTR 10 MEQ/100 ML PLCT IV SCH ×4 (08:43→12:47)
[2022-08-06] MEDS: PROMETHAZINE HCL 12.5 MG in SODIUM CHLORIDE 0.9% 50 ML IV PRN ×2 (08:55→17:40)
--- NOTE | 2022-08-06 08:55 | CT Scan Report ---
CT OF THE ABDOMEN AND PELVIS WITH CONTRAST CLINICAL HISTORY: Abdominal pain. Endoscopy today. COMPARISON STUDY: CT of the abdomen and pelvis November 18, 2021. MRCP October 07, 2021. TECHNIQUE: Following IV administration of 89 mL of Optiray, axial images of the abdomen and pelvis we re obtained from the lung bases to the proximal femurs. Images were reviewed in the axial, sagittal, and coronal planes. IV contrast was administered without complication. Automated exposure control wa s utilized for the study. A dose lowering technique was utilized adhering to the principles of ALARA . CT DOSE: 272.17 mGy.cm FINDINGS: Lung bases are unremarkable. No pneumatosis, free air or portal venous gas is present. The re is no biliary ductal dilatation. However, there is increased enhancement of the common bile duct w all. The gallbladder is mildly distended and contains contrast from recent procedure. There is trace stranding adjacent to the fundus. However, the findings are not strongly suggestive of acute cholecys titis. Mild peripancreatic fluid and stranding is noted. Pancreatic ductal dilatation has been shown on prior studies. Pancreatic duct measures up to 1 cm caliber. There is caliber change of the pancrea tic duct within the pancreatic head at or just distal to the ampulla. A 1 cm tubular hypodense focus within the pancreatic head is unchanged. This may reflect a portion of the duct. Spleen, adrenal glan ds and kidneys are unremarkable. Mild scarring within the left kidney is unchanged. There is no hydro nephrosis. There is no evidence for a bowel obstruction. Caliber and wall thickness of small and larg e bowel are normal. The appendix is normal. There is trace fluid within pelvis. Calcified fibroid is present. Mild bladder wall thickening is noted. Major vasculature is patent. IMPRESSION: 1. Mild peripancreatic fluid and stranding consistent with acute pancreatitis. Pancreatic ductal dila tation with caliber change at or just distal to the ampulla. This may reflect an underlying stricture . 2. No biliary ductal dilatation. Increased enhancement of the common bile duct wall. This may be reac tive/related to recent procedure. However, cholangitis could have a similar appearance and the findin gs could be correlated with liver function tests. This finding will be called/faxed to ordering provi sanchez at time of dictation. 3. Mildly distended gallbladder which contains contrast from recent procedure. Trace stranding adjace nt to the gallbladder fundus. However, findings not strongly suggestive of acute cholecystitis. ACT 112: Negative or not required by law. Electronically signed by: Pedro Pablo Moore M.D. 08/06/2022 8:53 AM
[2022-08-06] MEDS: PANTOprazole 40 MG TAB PO SCH ×2 (08:57→20:28)
[2022-08-06] MEDS: POTASSIUM CITRATE 10 MEQ TAB PO SCH ×2 (08:57→20:28)
[2022-08-06] MEDS: THIAMINE HCL 100 MG TAB PO SCH (08:57)
[2022-08-06] MEDS: ENOXAPARIN INJ 40 MG/0.4 ML SYR SQ SCH ×2 (08:58→09:16)
[2022-08-06] MEDS: lamoTRIgine 25 MG TAB PO SCH (08:58)
[2022-08-06] MEDS: MAGNESIUM SULFATE / D5W 1 GM/100 ML BAG IV SCH ×2 (08:59→11:24)
[2022-08-06] MEDS: LANTUS PER UNIT CHARGE SQ SCH (09:14)
[2022-08-06] MEDS: SODIUM CHLORIDE 0.9% 1000ML 1,000 ML IV SCH ×2 (11:21→12:48)
[2022-08-06] MEDS ORDERED: ACETAMINOPHEN 325 MG TAB PO PRN (11:34)
--- NOTE | 2022-08-06 12:52 | Gastrointestinal Consultation ---
Date of Consultation August 06, 2022 History of Present Illness Reason for Consultation: Pancreatitis Attending Physician: Audrey Nash MD History of Present Illness 36 yo Female with chorinc panc from alcohol, also s/p ampullectomy for neuroendocrine tumor s/p ERCP yest with evidence of papillary stenosis s/p biliary/pancreatic sphincterotomy, PD sphincteroplasty. She began to have worsening pain post procedure, presented to ER last night. VS showed tachycardia. Labs show WBC 20, transaminases 600's, bili 1.7, lip 3500. CT showed no sergio dil or RP air, but did show PD dilation that appears mildly progressive, also mild peripanc fluid. Hydrated overnight, remained tachy and developed fever to 101 this am. WBC 19 this am. She received narcs x 1 this am, Zosyn ordered at 1130. On LR 200/hr. At present,complains of mild pain. Mild hunger, no gas. She has urinated twice, urine is orange. ALLERGIES: BEE VENOM. PAST MEDICAL HISTORY: As mentioned above. PAST SURGICAL HISTORY: , dental surgery, EGD with endoscopic ultrasound, ERCP. MEDICATIONS: The patient is on Abilify 400 mg IM monthly, buspirone 10 mg p.o. b.i.d. p.r.n., Celebrex 100 mg p.o. b.i.d. p.r.n., enema p.r.n. epinephrine 0.3 mg IM p.r.n., Advair Diskus one inhalation b.i.d. p.r.n., hydroxyzine 50 mg p.o. b.i.d. p.r.n., Lantus 10 units subcutaneous daily, insulin lispro as directed, Lamictal 75 mg p.o. a.m., medical marijuana p.r.n., Zofran p.o. daily p.r.n., Protonix 40 mg p.o. b.i.d., MiraLax 17 g p.o. daily, potassium citrate 10 mg p.o. b.i.d., thiamine 100 mg p.o. daily, trazodone 50 mg p.o. at bedtime. FAMILY HISTORY: Significant for the patient was adopted. SOCIAL HISTORY: Quit smoking in September 2021. Smoked quarter pack a day, currently not drinking alcohol. Says she is sober since last January. Seems to be using marijuana for sleep, not daily. PE: Pleasant, comfortable. Mildly dry mucosa. Lungs clear Abd: non distended, mildly tender in upper abdomen. A/P: Post ERCP pancreatitis, likely from edema related to recent sphincterotomy Fever, leukocytosis - Agree with Zosyn, hydration, analgesia. Will begin clears. Follow LFT's and fever curve -- if not improved by tomorrow, may need repeat ERCP for stent placement. Allergies Allergy/AdvReac Type Severity Reaction Status Date / Time bee venom protein (honey bee) Allergy Severe ANAPHYLAXIS Verified 08/05/22 23:34 Home Medications Medication Instructions Recorded Confirmed Type thiamine HCl (vitamin B1) 100 mg 100 mg PO QAM #30 tabs 08/16/21 08/05/22 Rx tablet (Vitamin B-1) trazodone 50 mg tablet 50 mg PO HS 10/06/21 08/05/22 History buspirone 5 mg tablet 5 mg PO BID PRN Anxiety 11/18/21 08/05/22 History epinephrine 0.3 mg/0.3 mL 0.3 mg IM UD PRN Allergic Reaction 11/18/21 08/05/22 History injection, auto-injector fluticasone 250 mcg-salmeterol 50 1 inh inhalation BID PRN Shortness 11/18/21 08/05/22 History mcg/dose blistr powdr for Of Breath inhalation (Advair Diskus) hydroxyzine HCl 50 mg tablet 50 mg PO BID PRN Anxiety 11/18/21 08/05/22 History insulin lispro 100 unit/mL See Rx Instructions .Route .COMPLEX 11/18/21 08/05/22 History subcutaneous solution ondansetron 4 mg disintegrating 4 mg PO DAILY PRN nausea and 11/21/21 08/05/22 Rx tablet vomiting #30 tabs polyethylene glycol 3350 17 17 g PO DAILY constipation #119 11/21/21 08/05/22 Rx gram/dose oral powder (Miralax) grams sodium phosphates 19 gram-7 118 ml HI DAILY PRN constipation 11/21/21 08/05/22 Rx gram/118 mL enema (Enema) #931 mL Medical Marijuana 1 dose inhalation HS PRN Sleep 02/08/22 08/05/22 History celecoxib 100 mg capsule (Celebrex) 100 mg PO BID PRN pain 02/11/22 08/05/22 History pantoprazole 40 mg tablet,delayed 40 mg PO BID 02/11/22 08/05/22 History release (Protonix) aripiprazole 400 mg intramuscular 400 mg IM MONTHLY 08/02/22 08/05/22 History suspension,extended release (Abilify Maintena) lamotrigine 25 mg tablet (Lamictal) 75 mg PO QAM 08/02/22 08/05/22 History potassium citrate 10 mEq (1,080 10 meq PO BID 08/02/22 08/05/22 History mg) tablet,extended release insulin glargine 100 unit/mL (3 10 unit subcut DAILY 08/06/22 08/06/22 History mL) subcutaneous pen (Lantus Solostar U-100 Insulin) Patient History Medical History Alcohol use disorder Anxiety H/O Asthma well controlled Cardiac murmur no significant valvular disease on 08/20/2019 echo Chronic neck pain Depression H/O Diabetes IDDM ANGE (generalized anxiety disorder) GERD (gastroesophageal reflux disease) R/T History of pancreatitis HTN (hypertension) no meds Major depressive disorder (05/02/11) Medical marijuana use Pancreatitis H/O Post traumatic stress disorder (PTSD) Scoliosis MINOR Surgical History History of adenoidectomy History of section x 2 History of ERCP History of esophagogastroduodenoscopy (EGD) History of tonsillectomy Family History Other Adopted Social History Smoking Status: Former smoker Tobacco Type: E-cigarettes / Vaping Second Hand Exposure: No; Hx Alcohol Use: No Hx Substance Use: Yes Prescribed Medications: Marijuana Substance Use Type Other:: medical marijuana Preferred Language: Maori 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: Effective Diagnostic Imaging Manager Required: No Beliefs That Will Affect Care: None marital status: Single Current Living Situation: Alone Current Living Situation Comment: with kids Other Information That Helps Us Care for You: No Feels Safe at Home: Yes Safety Concerns: Feels Safe At This Time Assistive Devices: None Results & Data ([facility]) Vital Signs (Past 12 Hours) Vital Signs Temp Pulse Pulse Resp BP BP BP 08/06/22 12:26 37.5 C 100 H 16 96/67 L 08/06/22 11:30 38.1 C H 107 H 18 98/65 L 08/06/22 10:27 37.6 C H 110 H 18 99/64 L 08/06/22 08:00 36.8 C 111 H 16 93/60 L 08/06/22 03:57 08/06/22 03:57 36.9 C 108 H 19 108/71 08/06/22 03:31 113 H 19 118/91 08/06/22 03:00 100 H 17 127/84 08/06/22 02:30 98 H 16 131/97 08/06/22 02:23 99 H 23 106/74 08/06/22 01:30 100 H 15 110/81 08/06/22 01:00 100 H 21 130/91 Pulse Ox O2 Del Method 08/06/22 12:26 97 Room Air 08/06/22 11:30 95 Room Air 08/06/22 10:27 94 Room Air 08/06/22 08:00 96 Room Air 08/06/22 03:57 Room Air 08/06/22 03:57 97 Room Air 08/06/22 03:31 92 08/06/22 03:00 96 08/06/22 02:30 98 08/06/22 02:23 98 08/06/22 01:30 96 08/06/22 01:00 97
--- NOTE | 2022-08-06 12:54 | Electrocardiogram Report ---
Test Reason : Blood Pressure : / mmHG Vent. Rate : 111 BPM Atrial Rate : 111 BPM P-R Int : 128 ms QRS Dur : 072 ms QT Int : 294 ms P-R-T Axes : 058 020 -01 degrees QTc Int : 399 ms Sinus tachycardia Nonspecific T wave abnormality Abnormal ECG When compared with ECG of 16-MAR-2022 08:01, Vent. rate has increased BY 37 BPM Nonspecific T wave abnormality now evident in Anterolateral leads Confirmed by Kumar Solano ([id number]) on 08/06/2022 12:53:56 PM Referred By: REFERRED SELF Confirmed By:Kumar Solano
--- NOTE | 2022-08-06 13:01 | Communication Note ---
Date of Service: August 06, 2022 36-year-old female with past medical history significant for diabetes, history of gestational diabetes, allergic rhinitis, moderate persistent asthma, heart murmur, hypertension, vitamin D deficiency, GERD, history of alcoholism, currently under remission, says she is not drinking since last January, chronic neck pain, ADHD, depression, depression, primary insomnia, generalized anxiety disorder, who presents with abdominal pain post ERCP on 08/05/22 Patient reports epigastric pain referred to the back Had nausea and vomiting earlier today Reported some dizziness earlier Exam notable epigastric tenderness Labs notable for lipase of leukocytosis, elevated lipase, elevated LFT, hypokalemia. Lactate is normal. Procal is 2.14 CT abd and pelvis noted acute pancreatitis Acute pancreatitis, post ERCP Patient meets SIRS criteria SIRS can be due to acute pancreatitis. However, cannot rule out infection/sepsis considering recent procedure Has hypotension. Gave 30cc/kg IVF bolus Started empirical antibiotics until infectious workup is negative Discussed with GI Continue maintenance IVF Started on clears Replete hypokalemia and monitor Agree with other plans as detailed in H&P this morning
[2022-08-06] MEDS: PIPERACILLIN/TAZOBACTAM 4.5 GM in DEXTROSE 5% 100 ML IV SCH ×3 (13:32→23:28)
[2022-08-06] MEDS: traZODone HCL 50 MG TAB PO SCH (20:28)
[2022-08-07] MEDS: PROMETHAZINE HCL 12.5 MG in SODIUM CHLORIDE 0.9% 50 ML IV PRN ×3 (02:20→21:57)
[2022-08-07] MEDS: HYDROmorphone INJ 0.5 MG/0.5 ML SYR IV PRN ×6 (02:33→22:03)
[2022-08-07] MEDS: PIPERACILLIN/TAZOBACTAM 4.5 GM in DEXTROSE 5% 100 ML IV SCH ×4 (05:32→23:49)
[2022-08-07] MEDS: LACTATED RINGER'S 1,000 ML IV SCH ×3 (05:32→21:10)
[2022-08-07 08:15] LABS: Hematocrit (blood only) 32.1 % (34.1-44.9); Hemoglobin 11.1 g/dl (12.0-16.0); Mean Corpuscular Hgb Conc 34.6 g/dL (32.0-36.0); Mean Corpuscular Volume 89.7 fL (80.0-100.0); Mean Platelet Volume 10.4 fL (9.4-12.3); Platelet Count 207 K/uL (130-400); RDW Coefficient of Variation 12.2 % (11.5-14.5); RDW Standard Deviation 40.1 fL (36.4-46.3); Red Blood Count 3.58 M/uL (3.93-5.22); White Blood Count 10.99 K/ul (4.8-10.8)
[2022-08-07 08:38] LABS: Potassium 3.8 mmol/L (3.5-5.1)
[2022-08-07 08:39] LABS: BUN Creatinine Ratio 8.2 (10-20); Creatinine Clr Calc Pharmacy 120.9 ml/min; Est GFR (African American) 146.3 ml/min; Est GFR (Non-African American) 126.2 ml/min
[2022-08-07] MEDS: POTASSIUM CITRATE 10 MEQ TAB PO SCH ×2 (09:06→21:06)
[2022-08-07] MEDS: lamoTRIgine 25 MG TAB PO SCH (09:06)
[2022-08-07] MEDS: ENOXAPARIN INJ 40 MG/0.4 ML SYR SQ SCH ×2 (09:06→09:22)
[2022-08-07] MEDS: PANTOprazole 40 MG TAB PO SCH ×2 (09:06→21:08)
[2022-08-07] MEDS: busPIRone 5 MG TAB PO PRN ×2 (09:06→21:07)
[2022-08-07] MEDS: THIAMINE HCL 100 MG TAB PO SCH (09:06)
[2022-08-07] MEDS: INSULIN ASPART PER UNIT SC SCH ×4 (10:06→22:13)
[2022-08-07] MEDS: LANTUS PER UNIT CHARGE SQ SCH (10:06)
--- NOTE | 2022-08-07 11:41 | Hospitalist Progress Note ---
Date of Service August 07, 2022 Assessment & Plan (1) Epigastric abdominal pain: (2) Acute pancreatitis: (3) Vomiting: Plan: 36 year ikd female with past medical history significant for diabetes, history of gestational diabetes, allergic rhinitis, moderate persistent asthma, heart murmur, hypertension, vitamin D deficiency, GERD, history of alcoholism, currently under remission, says she is not drinking since last January, chronic neck pain, ADHD, depression, depression, primary insomnia, generalized anxiety disorder, who presents with abdominal pain post ERCP on 08/05/22 Patient reports epigastric pain referred to the back Labs notable for lipase of leukocytosis, elevated lipase, elevated LFT, hypokalemia. Lactate is normal. Procal is 2.14 CT abd and pelvis noted acute pancreatitis Acute pancreatitis, post ERCP Patient meets SIRS criteria with leukocytosis, fever SIRS can be due to acute pancreatitis. However, cannot rule out infection/sepsis considering recent procedure Continue IV zosyn Follow up blood cultures Continue maintenance IVF Patient wants advancement of diet. Advance to full liquid (4) Hypokalemia: (5) Hypomagnesemia: Plan: On admission , K was 3.1. Mag was 1 K is 3.8 and Mag is 1.5 today Replete and monitor Continue po K bid (6) ANGE (generalized anxiety disorder): (7) Bipolar disorder: Plan: Continue home meds - buspirone, hydroxyzine, lamictal (8) DMII (diabetes mellitus, type 2): Plan: HbA1c is 7.6 Continue insulin and monitor blood glucose Admission and Anticipated Discharge Date Admission Date: August 06, 2022 Subjective Patient seen and examined Reported nausea earlier but currently controlled No vomiting today Still reports epigastric pain, moderate, referred to the back but stated that it is better than yesterday Denied any dizziness today Reported night sweats/chills Denied cough, chest pain, shortness of breath Denied diarrhea Denied freq, urgency, dysuria Physical Exam Constitutional: + well hydrated; no acute distress Eyes: PERRL, conjunctivae normal, anicteric sclerae ENMT: external ear and nose normal, oropharynx normal Respiratory: normal respiratory effort, lungs clear to auscultation Cardiovascular: Rate/Rhythm: regular rate and regular rhythm S1 S2 Gastrointestinal (Abdomen): Inspection/Auscultation: abdomen normal to inspection and normal bowel sounds; abdomen not distended Percussion/Palpation: + abdomen tender (Upper abdomen) and abdomen soft Musculoskeletal: no cyanosis or clubbing, extremities motor strength 5/5 Neurologic: PERRL, EOMI, accommodation nl, no face palsy, no dysarthria Psychiatric: A+Ox3, euthymic affect Results & Data Results & Data ([facility]) Vital Signs (Past 12 Hours) Vital Signs Temp Pulse Resp BP Pulse Ox O2 Del Method 08/07/22 07:18 36.7 C 74 14 133/86 97 Room Air 08/07/22 02:05 37.7 C H 83 18 111/77 97 Room Air Laboratory Results Abnormal lab results 08/06/22 08/06/22 08/07/22 Range/Units 17:22 20:30 08:06 WBC 10.99 H (4.8-10.8) K/ul RBC 3.58 L (3.93-5.22) M/uL Hgb 11.1 L (12.0-16.0) g/dl Hct 32.1 L (34.1-44.9) % Sodium (136-145) mmol/L BUN (6-23) mg/dl Creatinine (0.6-1.2) mg/dl BUN/Creatinine Ratio (10-20) Glucose (70-99(Fasting)) mg/dl POC Glucose 261 H 138 H (70-99) mg/dl Calcium (8.5-10.1) mg/dl Magnesium (1.7-2.4) mg/dl Total Bilirubin (0.2-1.0) mg/dl Direct Bilirubin (0-0.2) mg/dl AST (13-39) U/L ALT (7-52) U/L Total Protein (6.0-8.3) gm/dl Albumin (3.4-5.0) gm/dl 08/07/22 08/07/22 08/07/22 Range/Units 08:06 08:06 08:21 WBC (4.8-10.8) K/ul RBC (3.93-5.22) M/uL Hgb (12.0-16.0) g/dl Hct (34.1-44.9) % Sodium 134 L (136-145) mmol/L BUN 4 L (6-23) mg/dl Creatinine 0.49 L (0.6-1.2) mg/dl BUN/Creatinine Ratio 8.2 L (10-20) Glucose 192 H (70-99(Fasting)) mg/dl POC Glucose 205 H (70-99) mg/dl Calcium 8.0 L (8.5-10.1) mg/dl Magnesium 1.5 L (1.7-2.4) mg/dl Total Bilirubin 3.8 H D (0.2-1.0) mg/dl Direct Bilirubin 2.7 H (0-0.2) mg/dl AST 124 H (13-39) U/L ALT 293 H (7-52) U/L Total Protein 5.7 L (6.0-8.3) gm/dl Albumin 3.0 L (3.4-5.0) gm/dl 08/07/22 Range/Units 12:17 WBC (4.8-10.8) K/ul RBC (3.93-5.22) M/uL Hgb (12.0-16.0) g/dl Hct (34.1-44.9) % Sodium (136-145) mmol/L BUN (6-23) mg/dl Creatinine (0.6-1.2) mg/dl BUN/Creatinine Ratio (10-20) Glucose (70-99(Fasting)) mg/dl POC Glucose 153 H (70-99) mg/dl Calcium (8.5-10.1) mg/dl Magnesium (1.7-2.4) mg/dl Total Bilirubin (0.2-1.0) mg/dl Direct Bilirubin (0-0.2) mg/dl AST (13-39) U/L ALT (7-52) U/L Total Protein (6.0-8.3) gm/dl Albumin (3.4-5.0) gm/dl (1) Acute pancreatitis Acute pancreatitis complication: no infection or necrosis Pancreatitis type: unspecified pancreatitis type Qualified Code(s): K85.90 - Acute pancreatitis without necrosis or infection, unspecified (2) Vomiting Nausea presence: with nausea Vomiting type: unspecified Qualified Code(s): R11.2 - Nausea with vomiting, unspecified
[2022-08-07 11:44] LABS: Bilirubin Direct 2.7 mg/dl (0-0.2); Bilirubin,Total 3.8 mg/dl (0.2-1.0); Magnesium 1.5 mg/dl (1.7-2.4); Total Protein 5.7 gm/dl (6.0-8.3)
[2022-08-07] MEDS: MAGNESIUM SULFATE / D5W 1 GM/100 ML BAG IV SCH ×2 (13:27→15:08)
--- NOTE | 2022-08-07 14:50 | Gastroenterology Progress Note ---
Date of Service August 07, 2022 Assessment & Plan Admission and Anticipated Discharge Date Admission Date: August 06, 2022 Subjective Abd pain cont to improve. Inessa lquids. Dilaudid x 1 today. On Zosyn. No fever ON, BP now normal. Abd soft NT Labs show improved WBC 10 from 19, normal creat, improved transaminases, bili rising now 4. A/P: Chronic panc Post ERCP panc Probable cholangitis - Cont abx, diet as tolerated, analgesia as tolerated. I expect bili to improve in next 1-2 days. Results & Data ([facility]) Vital Signs (Past 12 Hours) Vital Signs Temp Pulse Resp BP Pulse Ox O2 Del Method 08/07/22 07:18 36.7 C 74 14 133/86 97 Room Air
[2022-08-07] MEDS: traZODone HCL 50 MG TAB PO SCH (21:10)
[2022-08-08] MEDS: LACTATED RINGER'S 1,000 ML IV SCH ×3 (04:40→23:26)
[2022-08-08] MEDS: PIPERACILLIN/TAZOBACTAM 4.5 GM in DEXTROSE 5% 100 ML IV SCH (05:14)
[2022-08-08 07:07] LABS: Hematocrit (blood only) 31.6 % (34.1-44.9); Hemoglobin 10.8 g/dl (12.0-16.0); Mean Corpuscular Hemoglobin 30.4 pg (25.0-34.0); Mean Corpuscular Hgb Conc 34.2 g/dL (32.0-36.0); Mean Platelet Volume 10.8 fL (9.4-12.3); Platelet Count 231 K/uL (130-400); RDW Coefficient of Variation 11.9 % (11.5-14.5); RDW Standard Deviation 38.6 fL (36.4-46.3); Red Blood Count 3.55 M/uL (3.93-5.22)
[2022-08-08 07:29] LABS: Alanine Aminotransferase 194 U/L (7-52); Albumin Level 2.9 gm/dl (3.4-5.0); Alkaline Phosphatase 106 U/L (34-104); Anion Gap 6 (3-11); Aspartate Aminotransferase 40 U/L (13-39); BUN Creatinine Ratio 5.4 (10-20); Bilirubin,Total 2.9 mg/dl (0.2-1.0); Blood Urea Nitrogen 2 mg/dl (6-23); Calcium 8.6 mg/dl (8.5-10.1); Carbon Dioxide 25 mmol/L (21-32); Chloride 106 mmol/L (98-107); Creatinine Clr Calc Pharmacy 160.1 ml/min; Est GFR (African American) > 150.0 ml/min; Est GFR (Non-African American) 138.5 ml/min; Globulin 2.8 gm/dl (2.5-4.0); Glucose 190 mg/dl (70-99(Fasting)); Magnesium 1.3 mg/dl (1.7-2.4); Phosphorus 2.9 mg/dl (2.5-4.9); Potassium 3.9 mmol/L (3.5-5.1); Sodium 137 mmol/L (136-145); Total Protein 5.7 gm/dl (6.0-8.3)
[2022-08-08] MEDS: lamoTRIgine 25 MG TAB PO SCH (08:23)
[2022-08-08] MEDS: POTASSIUM CITRATE 10 MEQ TAB PO SCH ×2 (08:23→21:04)
[2022-08-08] MEDS: THIAMINE HCL 100 MG TAB PO SCH (08:23)
[2022-08-08] MEDS: PANTOprazole 40 MG TAB PO SCH ×2 (08:23→21:04)
[2022-08-08] MEDS: HYDROmorphone INJ 0.5 MG/0.5 ML SYR IV PRN ×4 (08:26→21:53)
[2022-08-08] MEDS: PROMETHAZINE HCL 12.5 MG in SODIUM CHLORIDE 0.9% 50 ML IV PRN ×3 (08:47→21:53)
[2022-08-08] MEDS: ENOXAPARIN INJ 40 MG/0.4 ML SYR SQ SCH (09:08)
[2022-08-08] MEDS: INSULIN ASPART PER UNIT SC SCH ×4 (09:09→21:00)
[2022-08-08] MEDS: LANTUS PER UNIT CHARGE SQ SCH (09:15)
--- NOTE | 2022-08-08 12:08 | Hospitalist Progress Note ---
Date of Service August 08, 2022 Assessment & Plan (1) Epigastric abdominal pain: (2) Acute pancreatitis: (3) Vomiting: Plan: 36 year ikd female with past medical history significant for diabetes, history of gestational diabetes, allergic rhinitis, moderate persistent asthma, heart murmur, hypertension, vitamin D deficiency, GERD, history of alcoholism, currently under remission, says she is not drinking since last January, chronic neck pain, ADHD, depression, depression, primary insomnia, generalized anxiety disorder, who presents with abdominal pain post ERCP on 08/05/22 Patient reports epigastric pain referred to the back Labs notable for lipase of leukocytosis, elevated lipase, elevated LFT, hypokalemia. Lactate is normal. Procal is 2.14 CT abd and pelvis noted acute pancreatitis Acute pancreatitis, post ERCP Patient meets SIRS criteria with leukocytosis, fever SIRS can be due to acute pancreatitis. However, cannot rule out infection/sepsis considering recent procedure Continue IV zosyn Blood cultures negative so far Continue maintenance IVF Patient wants advancement of regular diet. Advance to carbohydrate controlled diet (4) Hypokalemia: (5) Hypomagnesemia: Plan: On admission , K was 3.1. Mag was 1 K is 3.9 and Mag is 1.3 today Replete and monitor Continue po K bid IV mag 2g ordered\ Start mag oxide po daily (6) ANGE (generalized anxiety disorder): (7) Bipolar disorder: Plan: Continue home meds - buspirone, hydroxyzine, lamictal (8) DMII (diabetes mellitus, type 2): Plan: HbA1c is 7.6 Continue insulin and monitor blood glucose Admission and Anticipated Discharge Date Admission Date: August 06, 2022 Subjective Patient seen and examined Reported nausea earlier but currently resolved No vomiting Reports epigastric pain is still present but much improved Denied any headache, dizziness Denied cough, chest pain, shortness of breath Denied diarrhea. Denied freq, urgency, dysuria Physical Exam Constitutional: + well hydrated; no acute distress Eyes: PERRL, conjunctivae normal, anicteric sclerae ENMT: external ear and nose normal, oropharynx normal Respiratory: normal respiratory effort, lungs clear to auscultation Cardiovascular: Rate/Rhythm: regular rate and regular rhythm S1 S2 Gastrointestinal (Abdomen): Inspection/Auscultation: abdomen normal to inspection and normal bowel sounds; abdomen not distended Percussion/Palpation: + abdomen tender (Upper abdomen) and abdomen soft Musculoskeletal: no cyanosis or clubbing, extremities motor strength 5/5 Neurologic: PERRL, EOMI, accommodation nl, no face palsy, no dysarthria Psychiatric: A+Ox3, euthymic affect Results & Data Results & Data ([facility]) Vital Signs (Past 12 Hours) Vital Signs Temp Pulse Resp BP Pulse Ox O2 Del Method 08/08/22 07:33 36.9 C 78 18 142/87 H 99 Room Air Laboratory Results Abnormal lab results 08/07/22 08/07/22 08/08/22 Range/Units 12:17 17:15 06:29 RBC 3.55 L (3.93-5.22) M/uL Hgb 10.8 L (12.0-16.0) g/dl Hct 31.6 L (34.1-44.9) % BUN (6-23) mg/dl Creatinine (0.6-1.2) mg/dl BUN/Creatinine Ratio (10-20) Glucose (70-99(Fasting)) mg/dl POC Glucose 153 H 177 H (70-99) mg/dl Magnesium (1.7-2.4) mg/dl Total Bilirubin (0.2-1.0) mg/dl AST (13-39) U/L ALT (7-52) U/L Alkaline Phosphatase (34-104) U/L Total Protein (6.0-8.3) gm/dl Albumin (3.4-5.0) gm/dl 08/08/22 08/08/22 Range/Units 06:29 08:12 RBC (3.93-5.22) M/uL Hgb (12.0-16.0) g/dl Hct (34.1-44.9) % BUN 2 L (6-23) mg/dl Creatinine 0.37 L (0.6-1.2) mg/dl BUN/Creatinine Ratio 5.4 L (10-20) Glucose 190 H (70-99(Fasting)) mg/dl POC Glucose 196 H (70-99) mg/dl Magnesium 1.3 L (1.7-2.4) mg/dl Total Bilirubin 2.9 H (0.2-1.0) mg/dl AST 40 H (13-39) U/L ALT 194 H (7-52) U/L Alkaline Phosphatase 106 H (34-104) U/L Total Protein 5.7 L (6.0-8.3) gm/dl Albumin 2.9 L (3.4-5.0) gm/dl (1) Acute pancreatitis Acute pancreatitis complication: no infection or necrosis Pancreatitis type: unspecified pancreatitis type Qualified Code(s): K85.90 - Acute pancreatitis without necrosis or infection, unspecified (2) Vomiting Nausea presence: with nausea Vomiting type: unspecified Qualified Code(s): R11.2 - Nausea with vomiting, unspecified
[2022-08-08] MEDS: MAGNESIUM SULFATE / D5W 1 GM/100 ML BAG IV SCH ×2 (12:39→13:17)
--- NOTE | 2022-08-08 16:26 | Gastroenterology Progress Note ---
Date of Service August 08, 2022 Assessment & Plan Admission and Anticipated Discharge Date Admission Date: August 06, 2022 Subjective Pain continues to improved, and pt narda PO VS stable, afeb Abd: soft Labs show normal WBC, improved LFTs A/P: Post ERCP panc, cholangitis - Cont adv diet, analgesia, abx. Hopefully dc tomorrow. Results & Data ([facility]) Vital Signs (Past 12 Hours) Vital Signs Temp Pulse Resp BP Pulse Ox O2 Del Method 08/08/22 15:41 36.7 C 76 16 138/87 98 Room Air 08/08/22 07:33 36.9 C 78 18 142/87 H 99 Room Air
[2022-08-08] MEDS: POLYETHYLENE (MIRALAX) 17 GM PACK PO PRN ×2 (20:01→21:04)
[2022-08-08] MEDS: traZODone HCL 50 MG TAB PO SCH (21:04)
[2022-08-09] MEDS: HYDROmorphone INJ 0.5 MG/0.5 ML SYR IV PRN ×4 (00:46→10:22)
[2022-08-09] MEDS: PROMETHAZINE HCL 12.5 MG in SODIUM CHLORIDE 0.9% 50 ML IV PRN ×2 (06:34→13:50)
[2022-08-09 08:11] LABS: Hematocrit (blood only) 30.3 % (34.1-44.9); Hemoglobin 10.4 g/dl (12.0-16.0); Mean Corpuscular Hemoglobin 30.4 pg (25.0-34.0); Mean Corpuscular Hgb Conc 34.3 g/dL (32.0-36.0); Mean Corpuscular Volume 88.6 fL (80.0-100.0); Mean Platelet Volume 10.7 fL (9.4-12.3); Platelet Count 246 K/uL (130-400); RDW Coefficient of Variation 11.9 % (11.5-14.5); RDW Standard Deviation 38.3 fL (36.4-46.3); Red Blood Count 3.42 M/uL (3.93-5.22); White Blood Count 5.81 K/ul (4.8-10.8)
[2022-08-09 08:32] LABS: Alanine Aminotransferase 129 U/L (7-52); Albumin Level 2.9 gm/dl (3.4-5.0); Alkaline Phosphatase 149 U/L (34-104); Anion Gap 6 (3-11); Aspartate Aminotransferase 21 U/L (13-39); BUN Creatinine Ratio 11.9 (10-20); Bilirubin,Total 1.8 mg/dl (0.2-1.0); Blood Urea Nitrogen 5 mg/dl (6-23); Calcium 8.2 mg/dl (8.5-10.1); Carbon Dioxide 26 mmol/L (21-32); Chloride 106 mmol/L (98-107); Creatinine Clr Calc Pharmacy 141.1 ml/min; Est GFR (African American) > 150.0 ml/min; Est GFR (Non-African American) 132.8 ml/min; Globulin 2.8 gm/dl (2.5-4.0); Glucose 177 mg/dl (70-99(Fasting)); Potassium 3.8 mmol/L (3.5-5.1); Sodium 138 mmol/L (136-145); Total Protein 5.7 gm/dl (6.0-8.3)
[2022-08-09] MEDS ORDERED: MAGNESIUM OXIDE 400 MG TAB PO SCH (09:00)
[2022-08-09] MEDS: PANTOprazole 40 MG TAB PO SCH (10:02)
[2022-08-09] MEDS: ENOXAPARIN INJ 40 MG/0.4 ML SYR SQ SCH (10:02)
[2022-08-09] MEDS: THIAMINE HCL 100 MG TAB PO SCH (10:03)
[2022-08-09] MEDS: busPIRone 5 MG TAB PO PRN (10:03)
[2022-08-09] MEDS: lamoTRIgine 25 MG TAB PO SCH (10:03)
[2022-08-09] MEDS: POTASSIUM CITRATE 10 MEQ TAB PO SCH (10:03)
[2022-08-09] MEDS: INSULIN ASPART PER UNIT SC SCH ×2 (10:13→13:30)
[2022-08-09] MEDS: LANTUS PER UNIT CHARGE SQ SCH (10:14)
[2022-08-09] MEDS: LACTATED RINGER'S 1,000 ML IV SCH (11:00)
--- NOTE | 2022-08-09 11:07 | Gastroenterology Progress Note ---
Date of Service August 09, 2022 Assessment & Plan (1) Acute pancreatitis: Plan OK for d/c home, complete 7 days abx. Admission and Anticipated Discharge Date Admission Date: August 06, 2022 Subjective Pain much improved. Inessa PO. No complaints today. Results & Data ([facility]) Vital Signs (Past 12 Hours) Vital Signs Temp Pulse Resp BP Pulse Ox O2 Del Method 08/09/22 07:42 36.4 C L 73 16 143/93 H 97 Room Air 08/08/22 23:39 36.8 C 73 16 119/78 98 Room Air Abd soft NT (1) Acute pancreatitis Acute pancreatitis complication: no infection or necrosis Pancreatitis type: unspecified pancreatitis type Qualified Code(s): K85.90 - Acute pancreatitis without necrosis or infection, unspecified
--- NOTE | 2022-08-09 13:50 | Discharge Summary ---
Discharge Summary Date of Service August 09, 2022 Notes For Next Care Provider Follow up magnesium level on follow up and adjust po mag as needed Needs to follow up with GI Medication Changes From Visit Started on po magnesium for hypomagnesemia Discharged on Augmentin to complete 7 days therapy Discharged on tylenol as needed for pain and a few doses of oxycodone as needed for severe pain not controlled by tylenol Admission HPI Per Admitting Provider This is a 36-year-old female with past medical history significant for diabetes, history of gestational diabetes, allergic rhinitis, moderate persistent asthma, heart murmur, hypertension, vitamin D deficiency, GERD, history of alcoholism, currently under remission, says she is not drinking since last January, chronic neck pain, ADHD, depression, depression, primary insomnia, generalized anxiety disorder, who presents with abdominal pain. The patient has history of pancreatitis in the past and had ERCP done on 08/05/2022 and the patient had previously placed pancreatic duct stent that has spontaneously migrated over the duct. Found to have chronic pancreatitis and papillary stenosis post papillectomy. Biopsy was performed from ampullary area. Both biliary and pancreatic sphincterotomy extension was performed. PD orifice balloon dilatation, sphincteroplasty was performed, and the patient did fine, was discharged home, but the patient states after going home, she had lot of abdominal pain in the epigastric region, radiating to the back. She had nausea, vomiting, no blood in the vomitus. She came into the ER and found to have pancreatitis with a lipase of 3500, elevated LFTs. Received antiemetics and pain medication in the ER. Currently, resting comfortably, hemodynamically stable. Says the pain is still significant and requesting for pain medication . Denies any chest pain, no shortness of breath, no fevers, no headache, no blurred visions, no earache. Has some runny nose and sore throat and has some cough bringing up some phlegm. Constipated. Denies any blood in the stool or black stools. Normal bladder movements. No swelling in the legs. Admission Exam Per Admitting Provider GENERAL: The patient is alert, oriented, not in acute distress. VITAL SIGNS: Temperature 36.6, pulse 100, respiratory rate 15, blood pressure 110/81, oxygen 96% on room air. HEENT: Pupils equal, round, and reactive to light. Oral mucosa moist. NECK: No JVD, no neck masses. CARDIOVASCULAR: S1 and S2 heard. Regular rate and rhythm. No murmur, no gallop. RESPIRATORY SYSTEM: Normal AP diameter. No accessory muscle use. No wheezing or crackles. ABDOMEN: Soft, bowel sounds present. Diffuse abdominal tenderness, guarding present. No rigidity, no distention. CENTRAL NERVOUS SYSTEM: Cranial nerves II-XII grossly intact, nonfocal. EXTREMITIES: No edema, no erythema. Principal Dx & Hospital Course #1 = Principal Diagnosis (1) Epigastric abdominal pain: (2) Acute pancreatitis: (3) Vomitin year id female with past medical history significant for diabetes, history of gestational diabetes, allergic rhinitis, moderate persistent asthma, heart murmur, hypertension, vitamin D deficiency, GERD, history of alcoholism, currently under remission, says she is not drinking since last January, chronic neck pain, ADHD, depression, depression, primary insomnia, generalized anxiety disorder who presents with abdominal pain post ERCP on 08/05/22 Patient reported epigastric pain referred to the back Labs notable for lipase of leukocytosis, elevated lipase, elevated LFT, hypokalemia. Lactate is normal. Procal is 2.14 CT abd and pelvis noted acute pancreatitis Acute pancreatitis, post ERCP Patient met SIRS criteria with leukocytosis, fever SIRS can be due to acute pancreatitis. However, cannot rule out infection/sepsis considering recent procedure Was treated with IVF, pain control and IV zosyn Blood cultures negative so far Tolerating diet well Symptoms improved remarkably. Still get intermittent epigastric pain Was comanaged with [employer] Discharged on po Augmentin to complete 7 days of antibiotics treatment (4) Hypokalemia: (5) Hypomagnesemia: On admission , K was 3.1. Mag was 1 These were repleted Was started on po magnesium oxide due to low levels Advised to check Mag level in 1 week and follow up result with PCP who may adjust dose as needed (6) ANGE (generalized anxiety disorder): (7) Bipolar disorder: Continue home meds - buspirone, hydroxyzine, lamictal (8) DMII (diabetes mellitus, type 2): HbA1c is 7.6 Continue home insulin Discharge Exam Constitutional + well hydrated; no acute distress Eyes PERRL, conjunctivae normal, anicteric sclerae ENMT external ear and nose normal, oropharynx normal Respiratory normal respiratory effort, lungs clear to auscultation Cardiovascular Rate/Rhythm: regular rate and regular rhythm S1 S2 Gastrointestinal (Abdomen) Inspection/Auscultation: abdomen normal to inspection and normal bowel sounds; abdomen not distended Percussion/Palpation: + abdomen tender (Upper abdomen) and abdomen soft Musculoskeletal no cyanosis or clubbing, extremities motor strength 5/5 Neurologic PERRL, EOMI, accommodation nl, no face palsy, no dysarthria Psychiatric A+Ox3, euthymic affect Updated Medication List Medication Instructions Recorded Confirmed Type thiamine HCl (vitamin B1) 100 mg 100 mg PO QAM #30 tabs 08/16/21 08/05/22 Rx tablet (Vitamin B-1) trazodone 50 mg tablet 50 mg PO HS 10/06/21 08/05/22 History buspirone 5 mg tablet 5 mg PO BID PRN Anxiety 11/18/21 08/05/22 History epinephrine 0.3 mg/0.3 mL 0.3 mg IM UD PRN Allergic Reaction 11/18/21 08/05/22 History injection, auto-injector fluticasone 250 mcg-salmeterol 50 1 inh inhalation BID PRN Shortness 11/18/21 08/05/22 History mcg/dose blistr powdr for Of Breath inhalation (Advair Diskus) hydroxyzine HCl 50 mg tablet 50 mg PO BID PRN Anxiety 11/18/21 08/05/22 History insulin lispro 100 unit/mL See Rx Instructions .Route .COMPLEX 11/18/21 08/05/22 History subcutaneous solution ondansetron 4 mg disintegrating 4 mg PO DAILY PRN nausea and 11/21/21 08/05/22 Rx tablet vomiting #30 tabs polyethylene glycol 3350 17 17 g PO DAILY constipation #119 11/21/21 08/05/22 Rx gram/dose oral powder (Miralax) grams sodium phosphates 19 gram-7 118 ml MO DAILY PRN constipation 11/21/21 08/05/22 Rx gram/118 mL enema (Enema) #931 mL Medical Marijuana 1 dose inhalation HS PRN Sleep 02/08/22 08/05/22 History celecoxib 100 mg capsule (Celebrex) 100 mg PO BID PRN pain 02/11/22 08/05/22 History pantoprazole 40 mg tablet,delayed 40 mg PO BID 02/11/22 08/05/22 History release (Protonix) aripiprazole 400 mg intramuscular 400 mg IM MONTHLY 08/02/22 08/05/22 History suspension,extended release (Abilify Maintena) lamotrigine 25 mg tablet (Lamictal) 75 mg PO QAM 08/02/22 08/05/22 History potassium citrate 10 mEq (1,080 10 meq PO BID 08/02/22 08/05/22 History mg) tablet,extended release insulin glargine 100 unit/mL (3 10 unit subcut DAILY 08/06/22 08/06/22 History mL) subcutaneous pen (Lantus Solostar U-100 Insulin) acetaminophen 325 mg tablet 650 mg PO Q4H PRN pain #50 tabs 08/09/22 Rx amoxicillin 875 mg-potassium 1 tab PO BID #8 tabs 08/09/22 Rx clavulanate 125 mg tablet magnesium oxide 400 mg (241.3 mg 400 mg PO QAM #30 tabs 08/09/22 Rx magnesium) tablet oxycodone 5 mg tablet 5 mg PO TID PRN pain, severe 3 08/09/22 Rx days #9 tabs Hospital Stay Data Consultations 08/06/22 01:02 ED Decision to Admit Stat 08/06/22 08:00 Consult Gastroenterology Routine Diagnostic Imagining Performed 08/05/22 23:12 CT abd pelvis IV con only Urgent Pending Results Patient Have Any Pending Studies at Discharge: No Discharge Instructions Given to Patient (Per Discharging Provider) Ms Cerna You came to the hospital after ERCP complaining of severe abdominal pain. You were evaluated and found to have acute pancreatitis. You were managed for this in the hospital You are being discharged on 4 more days of antibiotics to complete treatment Please use tylenol as needed for pain. Use oxycodone only sparingly for severe pain not controlled by tylenol as we discussed. You were also started on tab magnesium oxide. Please take this every day. Check magnesium level next week and follow up the result with your PCP who may adjust dose as needed. Please ensure follow up with your Primary Doctor It was a pleasure taking care of you. Total Time Total Time Spent Total Time Spent (In Minutes): 50 Total Time Includes: Examination of the Patient, Discharge Planning, Medication Reconciliation and Communication With Other Providers
--- NOTE | 2022-08-18 09:58 | Coding Query ---
SEPSIS To promote full compliance with coding requirements relating to patient care, physician participation is requested in all cases of insulation cutter uncertainty. Please assist us with the question(s) below: In responding to this query, please exercise your independent professional judgement. The fact that a question is asked does not imply that any particular answer is desired or expected. We appreciate your clarification on this issue. Pt admitted post ERCP with acute pancreatitis and cholangitis. DS : met SIRS criteria , cannot rule out Sepsis. Please check below the diagnosis , if applicable, that was treated during this Inpatient stay. Thank you . Masood Gray [employer] [facility] ____ ( )Bacteremia (Nonspecific laboratory finding of bacteria in the blood) Specify Organism ( ) Present on Admission ( ) Not present on admission ( ) Unable to clinically determine ( ) Septicemia (Systemic disease associated with the presence of pathogenic microorganisms in the blood): Specify Organism ( ) Present on Admission ( ) Not present on admission ( ) Unable to clinically determine ( ) Sepsis Specify Organism Specify Associated Condition/Diagnosis ( ) Present on Admission ( ) Not present on admission ( ) Unable to clinically determine ( ) Severe Sepsis (Sepsis associated with acute organ dysfunction) Specify Organism Specify Associated Condition/Diagnosis ( ) Present on Admission ( ) Not present on admission ( ) Unable to clinically determine ( ) Septic Shock (Severe sepsis with acute circulatory failure, unexplained by other causes) ( ) Present on Admission ( ) Not present on admission ( ) Unable to clinically determine (x ) Other, patient has: post ERCP pancreatitis. Met SIRS criteria on admission hence sepsis is a possible diagnosis MTDD
== END 2022-08-09 15:34 | disposition home or self-care (01) | DRG 862 ==
LOC: ED 22:54 → 3N 08-06 02:35

== ENCOUNTER 2023-03-10 13:51 | Observation (INO) ==
[2023-03-10 14:45] LABS: Basophils # (auto) 0.03 K/uL (0-0.2); Basophils % (auto) 0.2 %; Eosinophils # (auto) 0.02 K/uL (0-0.50); Eosinophils % (auto) 0.1 %; Hematocrit (blood only) 34.8 % (37.0-47.0); Hemoglobin 12.2 g/dl (12.0-16.0); Immature Granulocytes # (auto) 0.06 K/uL (0.01-0.20); Immature Granulocytes % (auto) 0.3 %; Lymphocytes # (auto) 1.45 K/uL (1.2-3.4); Mean Corpuscular Hemoglobin 29.5 pg (25.0-34.0); Mean Corpuscular Hgb Conc 35.1 g/dL (32.0-36.0); Mean Corpuscular Volume 84.3 fL (80.0-100.0); Mean Platelet Volume 10.1 fL (9.4-12.4); Monocytes # (auto) 0.52 K/uL (0.11-0.59); Monocytes % (auto) 2.9 %; Neutrophils # (auto) 16.06 K/uL (1.40-6.50); Neutrophils % (auto) 88.5 %; Platelet Count 328 K/uL (130-400); RDW Coefficient of Variation 12.4 % (11.5-14.5); RDW Standard Deviation 37.8 fL (36.4-46.3); Red Blood Count 4.13 M/uL (4.20-5.40); White Blood Count 18.14 K/ul (4.8-10.8)
[2023-03-10 14:56] LABS: BUN Creatinine Ratio 27.7 (10-20); Calcium 9.3 mg/dl (8.6-10.3); Creatinine Clr Calc Pharmacy 124.9 ml/min; Est GFR (African American) 147.3 ml/min; Est GFR (Non-African American) 127.1 ml/min; Potassium 3.5 mmol/L (3.5-5.1)
[2023-03-10 14:57] LABS: Pregnancy Test, Serum Negative (Negative)
--- NOTE | 2023-03-10 15:43 | Emergency Department Note ---
History of Present Illness General Chief complaint: Abdominal Pain Stated complaint: ABDOMINAL PAIN, VOMITING - HISTORY PANCREATITIS Time Seen by Provider: 03/10/23 15:37 History of Present Illness Maximum Pain Intensity: 8 This 37-year-old female patient presents to the emergency department for evaluation of abdominal pain, nausea, and vomiting for about the past 2 weeks. The pain is in her upper abdomen and radiates to her back. Symptoms have been getting progressively worse. Now she is unable to keep anything down. She feels hungry, but anytime she tries to eat or drink anything, it comes right back up. She has a history of pancreatitis and is concerned she has pancreatiti s again. She rates her discomfort as 8/10. Denies any urinary symptoms. Has been constipated recently with her last BM 5-6 days ago. The epigastric pain radiates into her chest. Has a mild cough with phlegm. No fevers or URI symptoms. She is no longer taking her Protonix because she ran out. Tried OTC antacids without improvement. Had 3 mixed drinks of ETOH about 1.5-2 weeks ago. Had not had any ETOH for 2 years prior to those 3 drinks. She just started metformin 1 month ago and the dose was increased 1-2 weeks ago. No other changes in her medications or supplements. Her cholesterol levels have been well controlled per patient. She saw Jun GARIBAY in February and was told that the "pancreatic ducts" "were closing" again and is scheduled for an MRCP on 03/21/23 to see if she needs another surgery. The patient had ERCP done on 08/05/2022 for a history of pancreatitis. The patient's previously placed pancreatic duct stent had spontaneously migrated over the duct. Also found to have chronic pancreatitis and papillary stenosis post papillectomy. Biopsy was performed from ampullary area. Both biliary and pancreatic sphincterotomy extension was performed. PD orifice balloon dilatation, sphincteroplasty was performed. She then returned to the emergency department on 08/06/2022 and was found to have pancreatitis and was admitted. Home Medications Medication Instructions Recorded Confirmed Type thiamine HCl (vitamin B1) 100 mg 100 mg PO QAM #30 tabs 08/16/21 03/10/23 Rx tablet (Vitamin B-1) epinephrine 0.3 mg/0.3 mL 0.3 mg IM UD PRN Allergic Reaction 11/18/21 03/10/23 History injection, auto-injector fluticasone 250 mcg-salmeterol 50 1 inh inhalation BID PRN Shortness 11/18/21 03/10/23 History mcg/dose blistr powdr for Of Breath inhalation (Advair Diskus) insulin lispro 100 unit/mL See Rx Instructions .Route .COMPLEX 11/18/21 03/10/23 History subcutaneous solution ondansetron 4 mg disintegrating 4 mg PO DAILY PRN nausea and 11/21/21 03/10/23 Rx tablet vomiting #30 tabs polyethylene glycol 3350 17 17 g PO DAILY constipation #119 11/21/21 03/10/23 Rx gram/dose oral powder (Miralax) grams sodium phosphates 19 gram-[address] DAILY PRN constipation 11/21/21 03/10/23 Rx gram/118 mL enema (Enema) #931 mL Medical Marijuana 1 dose inhalation HS PRN Sleep 02/08/22 03/10/23 History pantoprazole 40 mg tablet,delayed 40 mg PO DAILY 02/11/22 03/10/23 History release (Protonix) aripiprazole 400 mg intramuscular 400 mg IM MONTHLY 08/02/22 03/10/23 History suspension,extended release (Abilify Maintena) potassium citrate 10 mEq (1,080 10 meq PO HS 08/02/22 03/10/23 History mg) tablet,extended release insulin glargine 100 unit/mL (3 10 unit subcut DAILY 08/06/22 03/10/23 History mL) subcutaneous pen (Lantus Solostar U-100 Insulin) acetaminophen 325 mg tablet 650 mg PO Q4H PRN pain #50 tabs 08/09/22 03/10/23 Rx magnesium oxide 400 mg (241.3 mg 400 mg PO QAM #30 tabs 08/09/22 03/10/23 Rx magnesium) tablet aripiprazole 5 mg tablet 5 mg PO DAILY 03/10/23 03/10/23 History cholecalciferol (vitamin D3) 50 50 mcg PO DAILY 03/10/23 03/10/23 History mcg (2,000 unit) tablet clonidine HCl 0.1 mg tablet 0.1 mg PO HS 03/10/23 03/10/23 History dicyclomine 10 mg capsule 10 mg PO QID PRN Abdominal 03/10/23 03/10/23 History Discomfort folic acid 1 mg tablet 1 mg PO DAILY 03/10/23 03/10/23 History lorazepam 0.5 mg tablet 0.5 mg PO DAILY PRN Anxiety 03/10/23 03/10/23 History metformin 500 mg tablet,extended 1,000 mg PO DAILY 03/10/23 03/10/23 History release 24 hr Allergies Allergy/AdvReac Type Severity Reaction Status Date / Time bee venom protein (honey bee) Allergy Severe ANAPHYLAXIS Verified 08/05/22 23:34 Past Med/Surg History Medical History Alcohol use disorder Anxiety H/O Asthma well controlled Cardiac murmur no significant valvular disease on 08/20/2019 echo Chronic neck pain Depression H/O Diabetes IDDM ANGE (generalized anxiety disorder) GERD (gastroesophageal reflux disease) R/T History of pancreatitis HTN (hypertension) no meds Hypomagnesemia Major depressive disorder (05/02/11) Medical marijuana use Pancreatitis H/O Post traumatic stress disorder (PTSD) Scoliosis MINOR Surgical History History of adenoidectomy History of section x 2 History of ERCP History of esophagogastroduodenoscopy (EGD) History of tonsillectomy Family History Other Adopted Social History Smoking Status: Former smoker Tobacco Type: E-cigarettes / Vaping Second Hand Exposure: No; Do You Dip or Chew Tobacco: No; Hx Alcohol Use: No Hx Substance Use: Yes Prescribed Medications: Marijuana Substance Use Type Other:: medical marijuana Preferred Language: Occitan 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: Effective Master Chef Required: No Beliefs That Will Affect Care: None marital status: Single Current Living Situation: Alone Current Living Situation Comment: with kids Feels Safe at Home: Yes Assistive Devices: None Review of Systems See HPI for pertinent positives & negatives. Physical Exam Vital Signs Vital Signs - 24 hr 03/10/23 13:54 03/10/23 15:42 03/10/23 15:43 Temperature 36.6 C Temperature Source Temporal Artery Scan Pulse Rate 112 H 69 Respiratory Rate 20 18 Respiratory Effort / Characteristics Non-Labored Spontaneous Respiratory Depth Normal Blood Pressure 129/85 126/87 Blood Pressure Mean 99 100 Pulse Oximetry 98 Oxygen Delivery Method Room Air Sepsis Recent Fever Within 48 Hours No Sepsis New/Unexplained Change in Mental Status N/A Sepsis Action Taken by Nursing No Action Required 03/10/23 16:07 03/10/23 15:50 03/10/23 16:00 Temperature Temperature Source Pulse Rate 87 72 Respiratory Rate 17 20 Respiratory Effort / Characteristics Respiratory Depth Blood Pressure Blood Pressure Mean Pulse Oximetry 94 Oxygen Delivery Method Room Air Sepsis Recent Fever Within 48 Hours Sepsis New/Unexplained Change in Mental Status Sepsis Action Taken by Nursing 03/10/23 16:01 03/10/23 16:01 03/10/23 16:10 Temperature Temperature Source Pulse Rate 81 86 Respiratory Rate 17 16 Respiratory Effort / Characteristics Respiratory Depth Blood Pressure 127/91 Blood Pressure Mean 109 Pulse Oximetry Oxygen Delivery Method Sepsis Recent Fever Within 48 Hours Sepsis New/Unexplained Change in Mental Status Sepsis Action Taken by Nursing 03/10/23 16:20 03/10/23 16:42 03/10/23 16:54 Temperature Temperature Source Pulse Rate 70 111 H 79 Respiratory Rate 24 24 Respiratory Effort / Characteristics Respiratory Depth Blood Pressure Blood Pressure Mean Pulse Oximetry Oxygen Delivery Method Sepsis Recent Fever Within 48 Hours Sepsis New/Unexplained Change in Mental Status Sepsis Action Taken by Nursing 03/10/23 16:42 03/10/23 16:50 03/10/23 17:00 Temperature Temperature Source Pulse Rate 91 H Respiratory Rate 17 Respiratory Effort / Characteristics Respiratory Depth Blood Pressure 140/93 111/87 Blood Pressure Mean 109 92 Pulse Oximetry Oxygen Delivery Method Sepsis Recent Fever Within 48 Hours Sepsis New/Unexplained Change in Mental Status Sepsis Action Taken by Nursing 03/10/23 17:00 03/10/23 17:10 03/10/23 17:20 Temperature Temperature Source Pulse Rate 77 88 80 Respiratory Rate 16 18 16 Respiratory Effort / Characteristics Respiratory Depth Blood Pressure Blood Pressure Mean Pulse Oximetry Oxygen Delivery Method Sepsis Recent Fever Within 48 Hours Sepsis New/Unexplained Change in Mental Status Sepsis Action Taken by Nursing 03/10/23 17:30 03/10/23 17:30 03/10/23 17:40 Temperature Temperature Source Pulse Rate 70 72 Respiratory Rate 17 19 Respiratory Effort / Characteristics Respiratory Depth Blood Pressure 124/75 Blood Pressure Mean 88 Pulse Oximetry Oxygen Delivery Method Sepsis Recent Fever Within 48 Hours Sepsis New/Unexplained Change in Mental Status Sepsis Action Taken by Nursing VITALS: Vitals are noted on the nurse's note and reviewed by myself. GENERAL: Non toxic, no acute distress, non-diaphoretic. SKIN: Capillary refill <2 sec. no jaundice. EYES: PERRLA. EOMI. Conjunctivae without injection, sclerae without icterus. NOSE: Patent without discharge. MOUTH: Mucous membranes moist. Uvula midline. Airway patent. NECK: Supple without nuchal rigidity. HEART: Regular rate and rhythm without murmurs gallops or rubs. LUNGS: Clear to auscultation bilaterally without wheezes, rales or rhonchi. No retractions or accessory muscle use. ABDOMEN: Positive bowel sounds x 4. Normal tympanic percussion. Soft, diffusely tender to palpation with maximal tenderness in the epigastric area. No masses or organomegaly. No CVA tenderness. Arvizu sign negative. No guarding or rebound tenderness. No focal RLQ or LLQ tenderness. MUSCULOSKELETAL: No gross musculoskeletal defects. NEURO: Patient was alert and oriented to person place and time. No focal neurological deficits. Course Administered Medications Clonidine HCl (Clonidine Hcl 0.1 Mg Tab) 0.1 mg PO HS GEOVANNA Stop: 04/09/23 20:59 Last Admin: 03/10/23 21:40 Dose: 0.1 mg Documented By: ANDREW Hydromorphone HCl (Hydromorphone Inj 0.5 Mg/0.5 Ml Syr) 0.5 mg IV Q4H PRN PRN Reason: Pain Stop: 03/24/23 20:40 Last Admin: 03/10/23 20:50 Dose: 0.5 mg Documented By: ANDREW Lactated Ringer's (Lr) 1,000 mls @ 200 mls/hr IV .Q5H GEOVANNA Stop: 04/09/23 18:59 Last Admin: 03/10/23 20:43 Dose: 200 mls/hr Documented By: Infusion: 03/10/23 20:43 Dose: 200 mls/hr Documented By: Admin: 03/10/23 19:57 Dose: 200 mls/hr Documented By: BCN Discontinued Medications Sodium Chloride (Nss 1000ml) 2,000 mls @ 999 mls/hr IV .Q2H1M ONE Stop: 03/10/23 18:04 Last Infusion: 03/10/23 18:24 Dose: 0 mls/hr Documented By: Admin: 03/10/23 16:39 Dose: 999 mls/hr Documented By: KRISTEN Ioversol (Optiray 320 100ml) 93 ml IV ONCE ONE Stop: 03/10/23 16:33 Last Admin: 03/10/23 16:32 Dose: 93 ml Documented By: NICKK Morphine Sulfate (Morphine Sulfate 4 Mg/Ml 1 Ml Carp\\Vial) 4 mg IV NOW STA Stop: 03/10/23 16:05 Last Admin: 03/10/23 16:39 Dose: 4 mg Documented By: KRISTEN Morphine Sulfate (Morphine Sulfate 4 Mg/Ml 1 Ml Carp\\Vial) 4 mg IV NOW STA Stop: 03/10/23 17:38 Last Admin: 03/10/23 17:41 Dose: 4 mg Documented By: KRISTEN Ondansetron HCl (Ondansetron Inj 2 Mg/Ml 2 Ml Vial) 4 mg IV NOW STA Stop: 03/10/23 16:05 Last Admin: 03/10/23 16:39 Dose: 4 mg Documented By: KRISTEN Medical Decision Making Differential Diagnosis Differential diagnosis includes hepatitis, pancreatitis, necrotizing pancreatitis, cholecystitis, cholelithiasis, choledocholithiasis, appendicitis, kidney stone, pyelonephritis, UTI, gastritis, gastroenteritis, mesenteric adenitis, obstruction, constipation, hernia, abdominal abscess, perforation, diverticulitis, IBD, ischemic colitis, abdominal aortic aneurysm, , ectopic , ovarian cyst, ovarian torsion, acute salpingitis, or others. Laboratory Data Attestation: I reviewed the patient's lab results. 03/10/23 14:22 03/10/23 14:22 Lab Results 03/10/23 03/10/23 03/10/23 Range/Units 14:22 14:22 14:22 WBC 18.14 H (4.8-10.8) K/ul RBC 4.13 L (4.20-5.40) M/uL Hgb 12.2 (12.0-16.0) g/dl Hct 34.8 L (37.0-47.0) % MCV 84.3 (80.0-100.0) fL MCH 29.5 (25.0-34.0) pg MCHC 35.1 (32.0-36.0) g/dL RDW Std Deviation 37.8 (36.4-46.3) fL RDW Coeff of Arnold 12.4 (11.5-14.5) % Plt Count 328 (130-400) K/uL MPV 10.1 (9.4-12.4) fL Immature Gran % (Auto) 0.3 % Neut % (Auto) 88.5 % Lymph % (Auto) 8.0 % [place]oux % (Auto) 2.9 % Eos % (Auto) 0.1 % Baso % (Auto) 0.2 % Neut # (Auto) 16.06 H (1.40-6.50) K/uL Lymph # (Auto) 1.45 (1.2-3.4) K/uL [place]oux # (Auto) 0.52 (0.11-0.59) K/uL Eos # (Auto) 0.02 (0-0.50) K/uL Baso # (Auto) 0.03 (0-0.2) K/uL Immature Gran # (Auto) 0.06 (0.01-0.20) K/uL Sodium 134 L (136-145) mmol/L Potassium 3.5 (3.5-5.1) mmol/L Chloride 98 (98-107) mmol/L Carbon Dioxide 25 (21-32) mmol/L Anion Gap 11 (3-11) BUN 13 (6-23) mg/dl Creatinine 0.47 L (0.6-1.2) mg/dl Est Cr Clr Drug Dosing 124.9 ml/min Est GFR ( Amer) 147.3 ml/min Est GFR (Non-Af Amer) 127.1 ml/min BUN/Creatinine Ratio 27.7 H (10-20) Glucose 262 H (70-99(Fasting)) mg/dl Calcium 9.3 (8.6-10.3) mg/dl Total Bilirubin 0.7 (0.2-1.0) mg/dl AST 10 L (13-39) U/L ALT 8 (7-52) U/L Alkaline Phosphatase 45 (34-104) U/L Total Protein 7.6 (6.0-8.3) gm/dl Albumin 4.1 (3.4-5.0) gm/dl Globulin 3.5 (2.5-4.0) gm/dl Albumin/Globulin Ratio 1.2 (0.9-2) Amylase 251 H (25-115) U/L Lipase 1245 H (11-82) U/L HCG, Qual Negative (Negative) Imaging Data Radiologist's Impression: Abdomen/Pelvis CT 03/10/23 15:[address] WITH IV CONTRAST CT DOSE: 585.58 mGy.cm HISTORY: Acute generalized abdominal pain abd pain, elev lipase, h/o pancreatitis/stones TECHNIQUE: Multiaxial CT images of the abdomen and pelvis were performed following the IV administration of 93 cc of Optiray, A dose lowering technique was utilized adhering to the principles of ALARA. COMPARISON STUDY: 08/06/2022 FINDINGS: Clear lung bases. Mild right hemidiaphragmatic elevation. Unremarkable pancreas, gallbladder and adrenal glands. Nonspecific heterogeneous enhancement throughout the posterior right hepatic lobe. Patency of the portal vein. Scattered coarse calcifications of the pancreas. Pancreatic ductal dilation is again noted measuring up to approximately 8 mm with abrupt narrowing at or just proximal to the ampulla. No obstructing stone or lesion. Normal caliber of the common bile duct. Mild interstitial and peripancreatic inflammation. No peripancreatic fluid collections or diminished enhancement. Cortical scarring with areas of parenchymal thinning again noted within the left kidney. Homogeneous renal enhancement. There is no hydronephrosis. Urinary catherine dder wall thickening with partial distention. Heterogeneity of the uterus with calcified fibroids. Dominant left ovarian follicle, 1.4 cm. Atherosclerosis of the aorta without aneurysm. No lymphadenopathy. Tiny hiatal hernia. Colonic diverticulosis. Normal appendix. Unremarkable soft tissues. No acute fracture. IMPRESSION: 1. Mild acute on chronic pancreatitis. No acute peripancreatic fluid collections. 2. Unchanged dilation of the common bile duct with focal narrowing at or just proximal to the ampulla suggestive of a chronic stricture. 3. Unremarkable gallbladder without biliary ductal dilation. 4. Nonspecific heterogeneous enhancement throughout the posterior right hepatic lobe. 5. Additional findings as above. ACT 112: Negative or not required by law. The above report was generated using voice recognition software. It may contain grammatical, syntax or spelling errors. Electronically signed by: Pepe Lancaster M.D. 03/10/2023 5:01 PM Chest X-Ray 03/10/23 16:07 XR chest 1V portable HISTORY: Epigastric abdominal pain COMPARISON: Chest 08/05/2022. FINDINGS: The lungs are clear. Cardiac silhouette is normal in size. No pleural effusions. No pneumothorax. Mild elevation of the right hemidiaphragm. IMPRESSION: Mild elevation of the right hemidiaphragm. Otherwise, no acute process within the chest. ACT 112: Negative or not required by law. Electronically signed by: Kadeem Graff M.D. 03/10/2023 5:05 PM MDM Narrative I examined the patient. An IV lock was placed and labs were drawn. She was given a total of 2 L of normal saline solution bolus. She was given morphine 4 mg IV x2 and Zofran 4 mg IV for pain and nausea. White blood cell count elevated 18.14. Hemoglobin normal at 12.2. Platelet count normal at 328. Sodium 134, glucose 262, but CMP otherwise essentially unremarkable. LFTs were normal. Lipase elevated at 1245 and amylase elevated at 251. Serum was negative. Chest x-ray was interpreted by myself and read by radiology as above and shows mild elevation of the right hemidiaphragm, but no other acute cardiopulmonary etiologies. CT scan of the abdomen pelvis with IV contrast was reviewed by myself and read by radiology as above. It shows mild acute on chronic pancreatitis with no acute peripancreatic fluid collections. Unchanged dilation of the common bile duct with focal narrowing at or just proximal to the ampulla suggestive of a chronic stricture. Unremarkable gallbladder without biliary ductal dilation. Nonspecific heterogeneous enhancement throughout the posterior right hepatic lobe. The patient agreed to admission for further management of her acute on chronic pancreatitis. I spoke to the on-call hospitalist who agreed to admit the patient for further management. Please refer to their dictation for further details. The patient's care was transferred in stable condition. Impression & Plan Acute pancreatitis Discharge Plan Visit Data Chief Complaint: Abdominal Pain Stated Complaint: ABDOMINAL PAIN, VOMITING - HISTORY PANCREATITIS ED Provider: Bar Thayer ED Midlevel Provider: Yvette Fregoso Discharge Problem: Acute pancreatitis Patient Disposition: Admitted As Inpatient Condition: Good Discharge Instructions Interventions: ED Discharge Assessment Last Done: 03/10/23 20:25
[2023-03-10 15:45] LABS: Albumin Globulin Ratio 1.2 (0.9-2); Albumin Level 4.1 gm/dl (3.4-5.0); Bilirubin,Total 0.7 mg/dl (0.2-1.0); Globulin 3.5 gm/dl (2.5-4.0); Total Protein 7.6 gm/dl (6.0-8.3)
[2023-03-10] MEDS ORDERED: SODIUM CHLORIDE 0.9% 1000ML 2,000 ML IV ONE (16:04)
[2023-03-10] MEDS ORDERED: ONDANSETRON INJ 2 MG/ML 2 ML VIAL IV STA (16:04)
[2023-03-10] MEDS ORDERED: MoRPHine SULFATE 4 MG/ML 1 ML CARP\\VIAL IV STA ×2 (16:04→17:37)
[2023-03-10] MEDS ORDERED: OPTIRAY 320 100ml IV ONE (16:32)
--- NOTE | 2023-03-10 17:02 | CT Scan Report ---
ABDOMEN AND PELVIS CT WITH IV CONTRAST CT DOSE: 585.58 mGy.cm HISTORY: Acute generalized abdominal pain abd pain, elev lipase, h/o pancreatitis/stones TECHNIQUE: Multiaxial CT images of the abdomen and pelvis were performed following the IV administrat ion of 93 cc of Optiray, A dose lowering technique was utilized adhering to the principles of ALARA. COMPARISON STUDY: 08/06/2022 FINDINGS: Clear lung bases. Mild right hemidiaphragmatic elevation. Unremarkable pancreas, gallbladde r and adrenal glands. Nonspecific heterogeneous enhancement throughout the posterior right hepatic lo be. Patency of the portal vein. Scattered coarse calcifications of the pancreas. Pancreatic ductal di lation is again noted measuring up to approximately 8 mm with abrupt narrowing at or just proximal to the ampulla. No obstructing stone or lesion. Normal caliber of the common bile duct. Mild interstiti al and peripancreatic inflammation. No peripancreatic fluid collections or diminished enhancement. Cortical scarring with areas of parenchymal thinning again noted within the left kidney. Homogeneous renal enhancement. There is no hydronephrosis. Urinary bladder wall thickening with partial distentio n. Heterogeneity of the uterus with calcified fibroids. Dominant left ovarian follicle, 1.4 cm. Ather osclerosis of the aorta without aneurysm. No lymphadenopathy. Tiny hiatal hernia. Colonic diverticulosis. Normal appendix. Unremarkable soft tissues. No acute frac ture. IMPRESSION: 1. Mild acute on chronic pancreatitis. No acute peripancreatic fluid collections. 2. Unchanged dilation of the common bile duct with focal narrowing at or just proximal to the ampulla suggestive of a chronic stricture. 3. Unremarkable gallbladder without biliary ductal dilation. 4. Nonspecific heterogeneous enhancement throughout the posterior right hepatic lobe. 5. Additional findings as above. ACT 112: Negative or not required by law. The above report was generated using voice recognition software. It may contain grammatical, syntax o r spelling errors. Electronically signed by: Pepe Lancaster M.D. 03/10/2023 5:01 PM
--- NOTE | 2023-03-10 17:06 | XRay Report ---
XR chest 1V portable HISTORY: Epigastric abdominal pain COMPARISON: Chest 08/05/2022. FINDINGS: The lungs are clear. Cardiac silhouette is normal in size. No pleural effusions. No pneumot horax. Mild elevation of the right hemidiaphragm. IMPRESSION: Mild elevation of the right hemidiaphragm. Otherwise, no acute process within the chest. ACT 112: Negative or not required by law. Electronically signed by: Kadeem Graff M.D. 03/10/2023 5:05 PM
--- NOTE | 2023-03-10 17:58 | History & Physical Report ---
Date of Service March 10, 2023 Assessment & Plan (1) Acute pancreatitis: (2) DMII (diabetes mellitus, type 2): (3) HTN (hypertension): (4) Bipolar disorder: (5) Major depressive disorder: (6) ANGE (generalized anxiety disorder): Plan This is a 37yo F with PMH of DM II, HTN, history of alcohol use disorder, pancreatitis, mood disorder and other medical problems listed below who presents with epigastric abdominal pain that have progressively worsened over the last week and was found to have acute recurrent pancreatitis. Acute recurrent pancreatitis Worsening epigastric pain over past week, etoh use 5 days ago Follows with [facility] - h/o ERCP on 08/05/22 with pancreatic sphincterotomy extension was performed and PD orifice balloon dilation sphincteroplasty performed. GI planning for MRCP 03/21/23 Afebrile, VSS, WBC 18k, lipase 1,245, AST 10, ALT 8, Tbili 0.7 CT abd/pelvis with mild acute on chronic pancreatitis. No acute peripancreatic fluid collections. Unchanged dilation of the common bile duct with focal narrowing at or just proximal to the ampulla suggestive of a chronic stricture. LR @ 200ml/hr, NPO for now, antiemetics, analgesics, GI consult DM II A1c 8.6 in November 2022 Did not take insulin earlier today, feels confused about home regimen and initial BSG 246 Basal/bolus insulin per protocol while admitted BSG AC HS or Q6H while NPO Bipolar disorder Anxiety Receives Abilify injections monthly, recent medications changes - now on Abilify 5mg daily, Ativan 0.5mg daily PRN, 0.1mg clonidine HS (med rec updated) Asthma Stable, uses albuterol inh as needed, Advair infrequently Constipation History of chronic issue, instructed to use miralax daily by GI but ran out weeks ago Last bowel movement 3 days ago but has not had PO intake other than limited water Continue Miralax History of prolonged QTc Admission EKG ordered DVT Ppx: SQ lovenox Code status: FULL PCP: Ernesto Nathan Dispo: Admitted to med/surg Patient seen in collaboration with Dr. Murray. Please see addendum. I spent a total of 75 minutes coordinating, documenting, and providing care for this patient excluding time spent in the performance of separately billed services. History of Present Illness Chief Complaint: abd pain Primary Care Provider: Harinder Nathan DO This is a 37yo F with PMH of DM II, HTN, history of alcohol use disorder, pancreatitis, mood disorder and other medical problems listed below who presents with epigastric abdominal pain that have progressively worsened over the last week. For the past 3 weeks she endorses intermittent shooting pain in upper stomach but over the past few days pain has become more constant in bandlike distribution of upper abdomen radiating to her back. Had 3 mixed drinks while on a trip to [place] 5 days ago but denies any further alcohol since. Associated symptoms include nausea and intermittent vomiting over the past 3 days. Cannot even keep water down. No F/C, cough, CP, SOB, dysuria, diarrhea. Last bowel movement was 3 days ago but has only had small amounts of water the past few days. Did not take her insulin today. Follows with [facility] and underwent ERCP on 08/05/22 with previously placed pancreatic duct stent had spontaneously migrated out of the duct as well as findings of chronic pancreatitis, papillary stenosis post papillectomy. Biopsy was performed from ampullary area. Both biliary and pancreatic sphincterotomy extension was performed and PD orifice balloon dilation sphincteroplasty performed. [facility] GI planning for MRCP 03/21/23. Allergies Allergy/AdvReac Type Severity Reaction Status Date / Time bee venom protein (honey bee) Allergy Severe ANAPHYLAXIS Verified 08/05/22 23:34 Home Medications Medication Instructions Recorded Confirmed Type thiamine HCl (vitamin B1) 100 mg 100 mg PO QAM #30 tabs 08/16/21 03/10/23 Rx tablet (Vitamin B-1) epinephrine 0.3 mg/0.3 mL 0.3 mg IM UD PRN Allergic Reaction 11/18/21 03/10/23 History injection, auto-injector fluticasone 250 mcg-salmeterol 50 1 inh inhalation BID PRN Shortness 11/18/21 03/10/23 History mcg/dose blistr powdr for Of Breath inhalation (Advair Diskus) insulin lispro 100 unit/mL See Rx Instructions .Route .COMPLEX 11/18/21 03/10/23 History subcutaneous solution ondansetron 4 mg disintegrating 4 mg PO DAILY PRN nausea and 11/21/21 03/10/23 Rx tablet vomiting #30 tabs polyethylene glycol 3350 17 17 g PO DAILY constipation #119 11/21/21 03/10/23 Rx gram/dose oral powder (Miralax) grams sodium phosphates 19 gram-7 118 ml [place] DAILY PRN constipation 11/21/21 03/10/23 Rx gram/118 mL enema (Enema) #931 mL Medical Marijuana 1 dose inhalation HS PRN Sleep 02/08/22 03/10/23 History pantoprazole 40 mg tablet,delayed 40 mg PO DAILY 02/11/22 03/10/23 History release (Protonix) aripiprazole 400 mg intramuscular 400 mg IM MONTHLY 08/02/22 03/10/23 History suspension,extended release (Abilify Maintena) potassium citrate 10 mEq (1,080 10 meq PO HS 08/02/22 03/10/23 History mg) tablet,extended release insulin glargine 100 unit/mL (3 10 unit subcut DAILY 08/06/22 03/10/23 History mL) subcutaneous pen (Lantus Solostar U-100 Insulin) acetaminophen 325 mg tablet 650 mg PO Q4H PRN pain #50 tabs 08/09/22 03/10/23 Rx magnesium oxide 400 mg (241.3 mg 400 mg PO QAM #30 tabs 08/09/22 03/10/23 Rx magnesium) tablet aripiprazole 5 mg tablet 5 mg PO DAILY 03/10/23 03/10/23 History cholecalciferol (vitamin D3) 50 50 mcg PO DAILY 03/10/23 03/10/23 History mcg (2,000 unit) tablet clonidine HCl 0.1 mg tablet 0.1 mg PO HS 03/10/23 03/10/23 History dicyclomine 10 mg capsule 10 mg PO QID PRN Abdominal 03/10/23 03/10/23 History Discomfort folic acid 1 mg tablet 1 mg PO DAILY 03/10/23 03/10/23 History lorazepam 0.5 mg tablet 0.5 mg PO DAILY PRN Anxiety 03/10/23 03/10/23 History metformin 500 mg tablet,extended 1,000 mg PO DAILY 03/10/23 03/10/23 History release 24 hr Past Med/Surg History Medical History Alcohol use disorder Anxiety H/O Asthma well controlled Cardiac murmur no significant valvular disease on 08/20/2019 echo Chronic neck pain Depression H/O Diabetes IDDM ANGE (generalized anxiety disorder) GERD (gastroesophageal reflux disease) R/T History of pancreatitis HTN (hypertension) no meds Hypomagnesemia Major depressive disorder (05/02/11) Medical marijuana use Pancreatitis H/O Post traumatic stress disorder (PTSD) Scoliosis MINOR Surgical History History of adenoidectomy History of section x 2 History of ERCP History of esophagogastroduodenoscopy (EGD) History of tonsillectomy Family History Other Adopted Social History Smoking Status: Former smoker Tobacco Type: E-cigarettes / Vaping Second Hand Exposure: No; Do You Dip or Chew Tobacco: No; Hx Alcohol Use: Yes Alcohol type: hard liquor Hx Substance Use: Yes Prescribed Medications: Marijuana Last Used Substance: Hours (ago) Substance Use Type Other:: medical marijuana Preferred Language: Pashto 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: Effective Filter Press Pumper Required: No Beliefs That Will Affect Care: None marital status: Single Current Living Situation: Alone and Family Current Living Situation Comment: 2 children Other Information That Helps Us Care for You: No Feels Safe at Home: Yes Safety Concerns: Feels Safe At This Time Assistive Devices: None Review of Systems Review of Systems: At least ten systems reviewed and negative except as noted in the HPI. Physical Exam Physical Exam: General Appearance: WD/WN, vitals as above, NAD, sitting up in bed, pleasant, appears ill Head: normocephalic, atraumatic Eyes: normal inspection, PERRL, conjunctivae normal, anicteric sclerae ENT: external ear and nose normal, oropharynx normal Neck: normal visual inspection, trachea midline, no thyromegaly Respiratory: normal respiratory effort, lungs clear to auscultation, no wheeze, rales, rhonchi. No accessory muscle use Cardiovascular: regular rate, rhythm, normal peripheral pulses, no BLE edema. Vessels: no JVD Chest: normal inspection of chest Abdomen/GI: normal bowel sounds, soft with TTP across upper abdomen, no hepatosplenomegaly Extremities/Musculoskeletal: no cyanosis or clubbing, extremities motor strength 5/5 Neurologic: PERRL, EOMI, accommodation nl, no face palsy, no dysarthria, CN's II-XI intact bilaterally and moves all extremities Psychiatric: A+Ox3, euthymic affect Skin: no rashes, normal color, warm/dry Results & Data Results & Data Vital Signs (Past 12 Hours) Vital Signs Temp Pulse Resp BP Pulse Ox O2 Del Method 03/10/23 16:54 79 03/10/23 16:42 111 H 24 03/10/23 16:20 70 24 03/10/23 16:10 86 16 03/10/23 16:01 81 17 03/10/23 16:01 127/91 03/10/23 16:00 72 20 03/10/23 15:50 87 17 03/10/23 16:07 94 Room Air 03/10/23 15:43 69 18 03/10/23 15:42 126/87 03/10/23 13:54 36.6 C 112 H 20 129/85 98 Room Air Laboratory Results Short CBC 03/10/23 Range/Units 14:22 WBC 18.14 H (4.8-10.8) K/ul Hgb 12.2 (12.0-16.0) g/dl Hct 34.8 L (37.0-47.0) % Plt Count 328 (130-400) K/uL BMP 03/10/23 14:22 Sodium 134 L Potassium 3.5 Chloride 98 Carbon Dioxide 25 BUN 13 Creatinine 0.47 L Glucose 262 H Calcium 9.3 Liver Function 03/10/23 Range/Units 14:22 Total Bilirubin 0.7 (0.2-1.0) mg/dl AST 10 L (13-39) U/L ALT 8 (7-52) U/L Alkaline Phosphatase 45 (34-104) U/L Albumin 4.1 (3.4-5.0) gm/dl Diagnostic Findings Abdomen/Pelvis CT 03/10/23 15:[address] WITH IV CONTRAST CT DOSE: 585.58 mGy.cm HISTORY: Acute generalized abdominal pain abd pain, elev lipase, h/o pancreatitis/stones TECHNIQUE: Multiaxial CT images of the abdomen and pelvis were performed following the IV administration of 93 cc of Optiray, A dose lowering technique was utilized adhering to the principles of ALARA. COMPARISON STUDY: 08/06/2022 FINDINGS: Clear lung bases. Mild right hemidiaphragmatic elevation. Unremarkable pancreas, gallbladder and adrenal glands. Nonspecific heterogeneous enhancement throughout the posterior right hepatic lobe. Patency of the portal vein. Scattered coarse calcifications of the pancreas. Pancreatic ductal dilation is again noted measuring up to approximately 8 mm with abrupt narrowing at or just proximal to the ampulla. No obstructing stone or lesion. Normal caliber of the common bile duct. Mild interstitial and peripancreatic inflammation. No peripancreatic fluid collections or diminished enhancement. Cortical scarring with areas of parenchymal thinning again noted within the left kidney. Homogeneous renal enhancement. There is no hydronephrosis. Urinary bladder wall thickening with partial distention. Heterogeneity of the uterus with calcified fibroids. Dominant left ovarian follicle, 1.4 cm. Atherosclerosis of the aorta without aneurysm. No lymphadenopathy. Tiny hiatal hernia. Colonic diverticulosis. Normal appendix. Unremarkable soft tissues. No acute fracture. IMPRESSION: 1. Mild acute on chronic pancreatitis. No acute peripancreatic fluid collections. 2. Unchanged dilation of the common bile duct with focal narrowing at or just proximal to the ampulla suggestive of a chronic stricture. 3. Unremarkable gallbladder without biliary ductal dilation. 4. Nonspecific heterogeneous enhancement throughout the posterior right hepatic lobe. 5. Additional findings as above. ACT 112: Negative or not required by law. The above report was generated using voice recognition software. It may contain grammatical, syntax or spelling errors. Electronically signed by: Pepe Lancaster M.D. 03/10/2023 5:01 PM Chest X-Ray 03/10/23 16:07 XR chest 1V portable HISTORY: Epigastric abdominal pain COMPARISON: Chest 08/05/2022. FINDINGS: The lungs are clear. Cardiac silhouette is normal in size. No pleural effusions. No pneumothorax. Mild elevation of the right hemidiaphragm. IMPRESSION: Mild elevation of the right hemidiaphragm. Otherwise, no acute process within the chest. ACT 112: Negative or not required by law. Electronically signed by: Kadeem Graff M.D. 03/10/2023 5:05 PM Code Status & VTE Plan VTE Prophylaxis Plan VTE Prophylaxis will be ordered: Yes Supervising Physician Co-Signing Physician Notes I have seen and examined the patient and have discussed the case with the provider above. I agree with the assessment and plan as stated. Bowel rest for acute pancreatitis, Trevor (1) Acute pancreatitis Acute pancreatitis complication: no infection or necrosis Pancreatitis type: unspecified pancreatitis type Qualified Code(s): K85.90 - Acute pancreatitis without necrosis or infection, unspecified
[2023-03-10] MEDS ORDERED: FLUTICASONE/SALMETEROL 250/50 (ADVAIR) 14 PUFF/1 INHALER INH PRN (18:42)
[2023-03-10] MEDS ORDERED: SOD PHOSPHATE/SOD BIPHOSPHATE ENEMA 132 ML BTL PR PRN (18:42)
[2023-03-10] MEDS: LACTATED RINGER'S 1,000 ML IV SCH ×2 (19:57→20:43)
[2023-03-10] MEDS ORDERED: DEXTROSE 50% 50 ML SYRINGE IV PRN (20:41)
[2023-03-10] MEDS ORDERED: GLUCOSE 10 TAB/TUBE PO PRN (20:41)
[2023-03-10] MEDS ORDERED: POLYETHYLENE (MIRALAX) 17 GM PACK PO PRN (20:41)
[2023-03-10] MEDS ORDERED: ACETAMINOPHEN 325 MG TAB PO PRN (20:41)
[2023-03-10] MEDS ORDERED: CARBOHYDRATES FOR HYPOGLYCEMIA PO PRN (20:41)
[2023-03-10] MEDS ORDERED: GLUCAGON FOR INJ 1 MG VIAL SQ PRN (20:41)
[2023-03-10] MEDS ORDERED: GLUCOSE 40% GEL 15 GM TUBE PO PRN (20:41)
[2023-03-10] MEDS: HYDROmorphone INJ 0.5 MG/0.5 ML SYR IV PRN (20:50)
[2023-03-10] MEDS: ENOXAPARIN INJ 40 MG/0.4 ML SYR SQ SCH (21:00)
[2023-03-10] MEDS: cloNIDine HCL 0.1 MG TAB PO SCH (21:40)
[2023-03-10] MEDS: INSULIN ASPART PER UNIT CHARGE SC SCH (21:58)
[2023-03-10] MEDS: LANTUS PER UNIT CHARGE SQ SCH (21:59)
[2023-03-10] MEDS: LORazepam 0.5 MG TAB PO PRN (22:03)
[2023-03-10] MEDS: DICYCLOMINE HCL 10 MG CAP PO PRN (22:12)
[2023-03-11] MEDS: LACTATED RINGER'S 1,000 ML IV SCH ×5 (02:08→23:02)
[2023-03-11] MEDS: HYDROmorphone INJ 0.5 MG/0.5 ML SYR IV PRN ×6 (02:46→23:03)
[2023-03-11] MEDS: ONDANSETRON INJ 2 MG/ML 2 ML VIAL IV PRN ×4 (02:47→23:11)
[2023-03-11] MEDS: PANTOprazole 40 MG TAB PO SCH (07:47)
[2023-03-11] MEDS: FLUTICASONE/VILANTEROL 200/25MCG 14 PUFFS/INHALER INH SCH (07:47)
[2023-03-11] MEDS: ARIPiprazole 5 MG TAB PO SCH (07:48)
[2023-03-11] MEDS: DICYCLOMINE HCL 10 MG CAP PO PRN ×2 (07:48→15:13)
[2023-03-11] MEDS: POLYETHYLENE (MIRALAX) 17 GM PACK PO SCH (07:48)
[2023-03-11] MEDS: CHOLECALCIFEROL 1,000 UNITS 25 MCG TAB PO SCH (07:48)
[2023-03-11 08:24] LABS: Hematocrit (blood only) 27.7 % (37.0-47.0); Hemoglobin 9.5 g/dl (12.0-16.0); Mean Corpuscular Hemoglobin 29.7 pg (25.0-34.0); Mean Corpuscular Hgb Conc 34.3 g/dL (32.0-36.0); Mean Corpuscular Volume 86.6 fL (80.0-100.0); Platelet Count 217 K/uL (130-400); RDW Coefficient of Variation 12.3 % (11.5-14.5); RDW Standard Deviation 39.1 fL (36.4-46.3); White Blood Count 8.21 K/ul (4.8-10.8)
[2023-03-11] MEDS: INSULIN ASPART PER UNIT CHARGE SC SCH ×2 (08:40→17:27)
--- NOTE | 2023-03-11 08:40 | Gastrointestinal Consultation ---
Date of Consultation March 11, 2023 Assessment & Plan (1) Acute pancreatitis: Pleasant woman with chronic recurrent pancreatitis. Has had PD stent placed but not evident on CT--not sure if she has had it removed. Nothing to add to her care. Fluid resuscitation and pain control as is normal for pancreatitis. Chronic pancreatitis frequently becomes a pain management issue with not much else being able to be done. History of Present Illness Reason for Consultation: pancreatitis Attending Physician: Hal Rosenbaum MD History of Present Illness 37 year old female admitted with recurrence of her pancreatitis. She started having her abdominal pain a couple of weeks ago and went to her GI doctor at [facility]. She was set up for an MRCP on 03/21. However the pain got worse so she was admitted to the hospital. She admittedly had three mixed drinks during this time and had been "sober for two years". CT shows mild acute on chronic pancreatitis. Allergies Allergy/AdvReac Type Severity Reaction Status Date / Time bee venom protein (honey bee) Allergy Severe ANAPHYLAXIS Verified 08/05/22 23:34 Home Medications Medication Instructions Recorded Confirmed Type thiamine HCl (vitamin B1) 100 mg 100 mg PO QAM #30 tabs 08/16/21 03/10/23 Rx tablet (Vitamin B-1) epinephrine 0.3 mg/0.3 mL 0.3 mg IM UD PRN Allergic Reaction 11/18/21 03/10/23 History injection, auto-injector fluticasone 250 mcg-salmeterol 50 1 inh inhalation BID PRN Shortness 11/18/21 03/10/23 History mcg/dose blistr powdr for Of Breath inhalation (Advair Diskus) insulin lispro 100 unit/mL See Rx Instructions .Route .COMPLEX 11/18/21 03/10/23 History subcutaneous solution ondansetron 4 mg disintegrating 4 mg PO DAILY PRN nausea and 11/21/21 03/10/23 Rx tablet vomiting #30 tabs polyethylene glycol 3350 17 17 g PO DAILY constipation #119 11/21/21 03/10/23 Rx gram/dose oral powder (Miralax) grams sodium phosphates 19 gram-7 118 ml AL DAILY PRN constipation 11/21/21 03/10/23 Rx gram/118 mL enema (Enema) #931 mL Medical Marijuana 1 dose inhalation HS PRN Sleep 02/08/22 03/10/23 History pantoprazole 40 mg tablet,delayed 40 mg PO DAILY 02/11/22 03/10/23 History release (Protonix) aripiprazole 400 mg intramuscular 400 mg IM MONTHLY 08/02/22 03/10/23 History suspension,extended release (Abilify Maintena) potassium citrate 10 mEq (1,080 10 meq PO HS 08/02/22 03/10/23 History mg) tablet,extended release insulin glargine 100 unit/mL (3 10 unit subcut DAILY 08/06/22 03/10/23 History mL) subcutaneous pen (Lantus Solostar U-100 Insulin) acetaminophen 325 mg tablet 650 mg PO Q4H PRN pain #50 tabs 08/09/22 03/10/23 Rx magnesium oxide 400 mg (241.3 mg 400 mg PO QAM #30 tabs 08/09/22 03/10/23 Rx magnesium) tablet aripiprazole 5 mg tablet 5 mg PO DAILY 03/10/23 03/10/23 History cholecalciferol (vitamin D3) 50 50 mcg PO DAILY 03/10/23 03/10/23 History mcg (2,000 unit) tablet clonidine HCl 0.1 mg tablet 0.1 mg PO HS 03/10/23 03/10/23 History dicyclomine 10 mg capsule 10 mg PO QID PRN Abdominal 03/10/23 03/10/23 History Discomfort folic acid 1 mg tablet 1 mg PO DAILY 03/10/23 03/10/23 History lorazepam 0.5 mg tablet 0.5 mg PO DAILY PRN Anxiety 03/10/23 03/10/23 History metformin 500 mg tablet,extended 1,000 mg PO DAILY 03/10/23 03/10/23 History release 24 hr Patient History Medical History Alcohol use disorder Anxiety H/O Asthma well controlled Cardiac murmur no significant valvular disease on 08/20/2019 echo Chronic neck pain Depression H/O Diabetes IDDM ANGE (generalized anxiety disorder) GERD (gastroesophageal reflux disease) R/T History of pancreatitis HTN (hypertension) no meds Hypomagnesemia Major depressive disorder (05/02/11) Medical marijuana use Pancreatitis H/O Post traumatic stress disorder (PTSD) Scoliosis MINOR Surgical History History of adenoidectomy History of section x 2 History of ERCP History of esophagogastroduodenoscopy (EGD) History of tonsillectomy Family History Other Adopted Social History Smoking Status: Former smoker Tobacco Type: E-cigarettes / Vaping Second Hand Exposure: No; Do You Dip or Chew Tobacco: No; Hx Alcohol Use: Yes Alcohol type: hard liquor Hx Substance Use: Yes Prescribed Medications: Marijuana Last Used Substance: Hours (ago) Substance Use Type Other:: medical marijuana Preferred Language: [place] 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: Effective Flagsetter Required: No Beliefs That Will Affect Care: None marital status: Single Current Living Situation: Alone and Family Current Living Situation Comment: 2 children Other Information That Helps Us Care for You: No Feels Safe at Home: Yes Safety Concerns: Feels Safe At This Time Assistive Devices: None Review of Systems Review of Systems: All systems reviewed & are unremarkable except as noted in HPI & below Physical Exam Physical Exam: She looks comfortable Constitutional: WD/WN, vitals as above no acute distress Eyes: PERRL, conjunctivae normal, anicteric sclerae ENMT: external ear and nose normal, oropharynx normal Neck: trachea midline, no thyromegaly Respiratory: normal respiratory effort, lungs clear to auscultation Cardiovascular: RRR, no murmur, no edema Gastrointestinal (Abdomen): normal bowel sounds, soft, nontender, no hepatosplenomegaly Musculoskeletal: Extremities: no cyanosis and no clubbing Skin: no rashes, warm and dry Neurologic: PERRL, EOMI, accommodation nl, no face palsy, no dysarthria Psychiatric: Orientation: alert and oriented x 3 Results & Data Vital Signs (Past 12 Hours) Vital Signs Temp Pulse Resp BP Pulse Ox O2 Del Method 03/11/23 07:37 36.8 C 84 18 105/73 100 Room Air 03/10/23 20:54 36.7 C 68 18 136/84 100 Room Air Laboratory Results 03/11/23 03/11/23 03/11/23 Range/Units 07:40 07:40 07:40 WBC 8.21 (4.8-10.8) K/ul RBC 3.20 L (4.20-5.40) M/uL Hgb 9.5 L (12.0-16.0) g/dl Hct 27.7 L (37.0-47.0) % MCV 86.6 (80.0-100.0) fL MCH 29.7 (25.0-34.0) pg MCHC 34.3 (32.0-36.0) g/dL RDW Std Deviation 39.1 (36.4-46.3) fL RDW Coeff of Arnold 12.3 (11.5-14.5) % Plt Count 217 (130-400) K/uL MPV 10.0 (9.4-12.4) fL Immature Gran % (Auto) % Neut % (Auto) % Lymph % (Auto) % Ashley % (Auto) % Eos % (Auto) % Baso % (Auto) % Neut # (Auto) (1.40-6.50) K/uL Lymph # (Auto) (1.2-3.4) K/uL Ashley # (Auto) (0.11-0.59) K/uL Eos # (Auto) (0-0.50) K/uL Baso # (Auto) (0-0.2) K/uL Immature Gran # (Auto) (0.01-0.20) K/uL Sodium Pending (136-145) mmol/L Potassium Pending (3.5-5.1) mmol/L Chloride Pending (98-107) mmol/L Carbon Dioxide Pending (21-32) mmol/L Anion Gap Pending (3-11) BUN Pending (6-23) mg/dl Creatinine Pending (0.6-1.2) mg/dl Est Cr Clr Drug Dosing Pending ml/min Est GFR ( Amer) Pending ml/min Est GFR (Non-Af Amer) Pending ml/min BUN/Creatinine Ratio Pending (10-20) Glucose Pending (70-99(Fasting)) mg/dl POC Glucose (70-99) mg/dl Estimat Average Glucose Pending Hemoglobin A1c Pending Calcium Pending (8.6-10.3) mg/dl Total Bilirubin Pending (0.2-1.0) mg/dl AST Pending (13-39) U/L ALT Pending (7-52) U/L Alkaline Phosphatase Pending (34-104) U/L Total Protein Pending (6.0-8.3) gm/dl Albumin Pending (3.4-5.0) gm/dl Globulin Pending (2.5-4.0) gm/dl Albumin/Globulin Ratio Pending (0.9-2) Amylase (25-115) U/L Lipase Pending (11-82) U/L HCG, Qual (Negative) Ethyl Alcohol mg/dL (<10.0) mg/dl 03/11/23 03/10/23 03/10/23 Range/Units 06:52 21:56 18:43 WBC (4.8-10.8) K/ul RBC (4.20-5.40) M/uL Hgb (12.0-16.0) g/dl Hct (37.0-47.0) % MCV (80.0-100.0) fL MCH (25.0-34.0) pg MCHC (32.0-36.0) g/dL RDW Std Deviation (36.4-46.3) fL RDW Coeff of Arnold (11.5-14.5) % Plt Count (130-400) K/uL MPV (9.4-12.4) fL Immature Gran % (Auto) % Neut % (Auto) % Lymph % (Auto) % Ashley % (Auto) % Eos % (Auto) % Baso % (Auto) % Neut # (Auto) (1.40-6.50) K/uL Lymph # (Auto) (1.2-3.4) K/uL Ashley # (Auto) (0.11-0.59) K/uL Eos # (Auto) (0-0.50) K/uL Baso # (Auto) (0-0.2) K/uL Immature Gran # (Auto) (0.01-0.20) K/uL Sodium (136-145) mmol/L Potassium (3.5-5.1) mmol/L Chloride (98-107) mmol/L Carbon Dioxide (21-32) mmol/L Anion Gap (3-11) BUN (6-23) mg/dl Creatinine (0.6-1.2) mg/dl Est Cr Clr Drug Dosing ml/min Est GFR ( Amer) ml/min Est GFR (Non-Af Amer) ml/min BUN/Creatinine Ratio (10-20) Glucose (70-99(Fasting)) mg/dl POC Glucose 116 H 161 H (70-99) mg/dl Estimat Average Glucose Hemoglobin A1c Calcium (8.6-10.3) mg/dl Total Bilirubin (0.2-1.0) mg/dl AST (13-39) U/L ALT (7-52) U/L Alkaline Phosphatase (34-104) U/L Total Protein (6.0-8.3) gm/dl Albumin (3.4-5.0) gm/dl Globulin (2.5-4.0) gm/dl Albumin/Globulin Ratio (0.9-2) Amylase (25-115) U/L Lipase (11-82) U/L HCG, Qual (Negative) Ethyl Alcohol mg/dL < 10.0 (<10.0) mg/dl 03/10/23 03/10/23 03/10/23 Range/Units 14:22 14:22 14:22 WBC 18.14 H (4.8-10.8) K/ul RBC 4.13 L (4.20-5.40) M/uL Hgb 12.2 (12.0-16.0) g/dl Hct 34.8 L (37.0-47.0) % MCV 84.3 (80.0-100.0) fL MCH 29.5 (25.0-34.0) pg MCHC 35.1 (32.0-36.0) g/dL RDW Std Deviation 37.8 (36.4-46.3) fL RDW Coeff of Arnold 12.4 (11.5-14.5) % Plt Count 328 (130-400) K/uL MPV 10.1 (9.4-12.4) fL Immature Gran % (Auto) 0.3 % Neut % (Auto) 88.5 % Lymph % (Auto) 8.0 % Ashley % (Auto) 2.9 % Eos % (Auto) 0.1 % Baso % (Auto) 0.2 % Neut # (Auto) 16.06 H (1.40-6.50) K/uL Lymph # (Auto) 1.45 (1.2-3.4) K/uL Ashley # (Auto) 0.52 (0.11-0.59) K/uL Eos # (Auto) 0.02 (0-0.50) K/uL Baso # (Auto) 0.03 (0-0.2) K/uL Immature Gran # (Auto) 0.06 (0.01-0.20) K/uL Sodium 134 L (136-145) mmol/L Potassium 3.5 (3.5-5.1) mmol/L Chloride 98 (98-107) mmol/L Carbon Dioxide 25 (21-32) mmol/L Anion Gap 11 (3-11) BUN 13 (6-23) mg/dl Creatinine 0.47 L (0.6-1.2) mg/dl Est Cr Clr Drug Dosing 124.9 ml/min Est GFR ( Amer) 147.3 ml/min Est GFR (Non-Af Amer) 127.1 ml/min BUN/Creatinine Ratio 27.7 H (10-20) Glucose 262 H (70-99(Fasting)) mg/dl POC Glucose (70-99) mg/dl Estimat Average Glucose Hemoglobin A1c Calcium 9.3 (8.6-10.3) mg/dl Total Bilirubin 0.7 (0.2-1.0) mg/dl AST 10 L (13-39) U/L ALT 8 (7-52) U/L Alkaline Phosphatase 45 (34-104) U/L Total Protein 7.6 (6.0-8.3) gm/dl Albumin 4.1 (3.4-5.0) gm/dl Globulin 3.5 (2.5-4.0) gm/dl Albumin/Globulin Ratio 1.2 (0.9-2) Amylase 251 H (25-115) U/L Lipase 1245 H (11-82) U/L HCG, Qual Negative (Negative) Ethyl Alcohol mg/dL (<10.0) mg/dl Diagnostic Findings Abdomen/Pelvis CT 03/10/23 15:[address] WITH IV CONTRAST CT DOSE: 585.58 mGy.cm HISTORY: Acute generalized abdominal pain abd pain, elev lipase, h/o pancreatitis/stones TECHNIQUE: Multiaxial CT images of the abdomen and pelvis were performed following the IV administration of 93 cc of Optiray, A dose lowering technique was utilized adhering to the principles of ALARA. COMPARISON STUDY: 08/06/2022 FINDINGS: Clear lung bases. Mild right hemidiaphragmatic elevation. Unremarkable pancreas, gallbladder and adrenal glands. Nonspecific heterogeneous enhancement throughout the posterior right hepatic lobe. Patency of the portal vein. Scattered coarse calcifications of the pancreas. Pancreatic ductal dilation is again noted measuring up to approximately 8 mm with abrupt narrowing at or just proximal to the ampulla. No obstructing stone or lesion. Normal caliber of the common bile duct. Mild interstitial and peripancreatic inflammation. No peripancreatic fluid collections or diminished enhancement. Cortical scarring with areas of parenchymal thinning again noted within the left kidney. Homogeneous renal enhancement. There is no hydronephrosis. Urinary bladder wall thickening with partial distention. Heterogeneity of the uterus with calcified fibroids. Dominant left ovarian follicle, 1.4 cm. Atherosclerosis of the aorta without aneurysm. No lymphadenopathy. Tiny hiatal hernia. Colonic diverticulosis. Normal appendix. Unremarkable soft tissues. No acute fracture. IMPRESSION: 1. Mild acute on chronic pancreatitis. No acute peripancreatic fluid collections. 2. Unchanged dilation of the common bile duct with focal narrowing at or just proximal to the ampulla suggestive of a chronic stricture. 3. Unremarkable gallbladder without biliary ductal dilation. 4. Nonspecific heterogeneous enhancement throughout the posterior right hepatic lobe. 5. Additional findings as above. ACT 112: Negative or not required by law. The above report was generated using voice recognition software. It may contain grammatical, syntax or spelling errors. Electronically signed by: Pepe Lancaster M.D. 03/10/2023 5:01 PM Chest X-Ray 03/10/23 16:07 XR chest 1V portable HISTORY: Epigastric abdominal pain COMPARISON: Chest 08/05/2022. FINDINGS: The lungs are clear. Cardiac silhouette is normal in size. No pleural effusions. No pneumothorax. Mild elevation of the right hemidiaphragm. IMPRESSION: Mild elevation of the right hemidiaphragm. Otherwise, no acute process within the chest. ACT 112: Negative or not required by law. Electronically signed by: Kadeem Graff M.D. 03/10/2023 5:05 PM
[2023-03-11] MEDS: LANTUS PER UNIT CHARGE SQ SCH ×2 (08:46→21:38)
[2023-03-11 08:47] LABS: Alanine Aminotransferase 5 U/L (7-52); Albumin Globulin Ratio 1.2 (0.9-2); Albumin Level 2.9 gm/dl (3.4-5.0); Alkaline Phosphatase 31 U/L (34-104); Anion Gap 6 (3-11); Aspartate Aminotransferase 7 U/L (13-39); BUN Creatinine Ratio 25.7 (10-20); Bilirubin,Total 0.5 mg/dl (0.2-1.0); Blood Urea Nitrogen 9 mg/dl (6-23); Carbon Dioxide 26 mmol/L (21-32); Chloride 106 mmol/L (98-107); Creatinine Clr Calc Pharmacy 182.7 ml/min; Est GFR (African American) > 150.0 ml/min; Globulin 2.5 gm/dl (2.5-4.0); Glucose 128 mg/dl (70-99(Fasting)); Lipase 411 U/L (11-82); Potassium 3.3 mmol/L (3.5-5.1); Sodium 138 mmol/L (136-145); Total Protein 5.4 gm/dl (6.0-8.3)
[2023-03-11] MEDS: ACETAMINOPHEN 325 MG TAB PO PRN ×2 (09:37→15:12)
[2023-03-11 09:50] LABS: Appearance Urine Clear (Clear); Bacteria Urine Automated Negative (Negative); Blood Urine Negative (Negative); Cast Urine Automated 0 /lpf (0-5); Color Urine Orange; Epithelial Cell Urine Auto 20-30 /lpf (0-5); Glucose Urine UA Trace (Negative); Ketones Urine 1+ (Negative); Leukocyte Esterase Urine Trace (Negative); Nitrite Urine Positive (Negative); Protein Urine 2+ (Negative); RBC Urine Automated 0-4 /hpf (0-4); Specific Gravity Urine 1.042 (1.000-1.030); Urobilinogen Urine Positive (Negative)
[2023-03-11] MEDS ORDERED: POTASSIUM CHLORIDE / WTR 10 MEQ/100 ML PLCT IV ONE (09:56)
[2023-03-11 10:09] LABS: Bilirubin Urine 1+ (Negative)
[2023-03-11 10:53] LABS: Magnesium 1.5 mg/dl (1.7-2.4)
[2023-03-11 11:01] LABS: Estimated Average Glucose 194 mg/dl; Hemoglobin A1C 8.4 % (4.5-5.6)
[2023-03-11] MEDS ORDERED: INSULIN ASPART PER UNIT CHARGE SC SCH ×2 (11:30→12:00)
--- NOTE | 2023-03-11 13:30 | Hospitalist Progress Note ---
Date of Service March 11, 2023 Assessment & Plan (1) Acute pancreatitis: (2) DMII (diabetes mellitus, type 2): (3) HTN (hypertension): (4) Bipolar disorder: (5) Major depressive disorder: (6) ANGE (generalized anxiety disorder): Plan This is a 37yo F with PMH of DM II, HTN, history of alcohol use disorder, pancreatitis, mood disorder and other medical problems listed below who presents with epigastric abdominal pain that have progressively worsened over the last week and was found to have acute recurrent pancreatitis. Acute recurrent pancreatitis Worsening epigastric pain over past week, etoh use 5 days ago Follows with [facility] - h/o ERCP on 08/05/22 with pancreatic sphincterotomy extension was performed and PD orifice balloon dilation sphincteroplasty performed. GI planning for MRCP 03/21/23 CT abd/pelvis with mild acute on chronic pancreatitis. No acute peripancreatic fluid collections. Unchanged dilation of the common bile duct with focal narrowing at or just proximal to the ampulla suggestive of a chronic stricture. LR @ 200ml/hr Advance to clear liquid diet DM II A1c 8.6 in November 2022 Did not take insulin earlier today, feels confused about home regimen and initial BSG 246 Basal/bolus insulin per protocol while admitted BSG AC HS or Q6H while NPO Bipolar disorder Anxiety Receives Abilify injections monthly, recent medications changes - now on Abilify 5mg daily, Ativan 0.5mg daily PRN, 0.1mg clonidine HS (med rec updated) Asthma Stable, uses albuterol inh as needed, Advair infrequently Constipation History of chronic issue, instructed to use miralax daily by GI but ran out weeks ago Last bowel movement 3 days ago but has not had PO intake other than limited water Continue Miralax History of prolonged QTc QTc 430 DVT Ppx: SQ lovenox Code status: FULL PCP: Ernesto Nathan Dispo: From home, possible d/c in next couple days if tolerating diet Admission and Anticipated Discharge Date Admission Date: March 10, 2023 Subjective Abdominal pain improved somewhat Denies nausea/vomiting Agreeable for trial of clear diet Review of Systems Review of Systems: as above Physical Exam Physical Exam: Appears well, no acute distress Respiratory: breathing comfortably on room air, no wheezing/rhonchi Cardiovascular: regular rate and rhythm, no murmurs/rubs Gastrointestinal (Abdomen): soft, +epigastric tenderness Neurologic: awake, alert, spontaneously moving extremities Results & Data Results & Data Vital Signs (Past 12 Hours) Vital Signs Temp Pulse Resp BP Pulse Ox O2 Del Method 03/11/23 07:37 36.8 C 84 18 105/73 100 Room Air
[2023-03-11] MEDS: LORazepam 0.5 MG TAB PO PRN (15:40)
[2023-03-11] MEDS: METOCLOPRAMIDE HCL INJ 5 MG/ML 2 ML VIAL IV PRN (16:20)
[2023-03-11] MEDS: cloNIDine HCL 0.1 MG TAB PO SCH (21:35)
[2023-03-11] MEDS: ENOXAPARIN INJ 40 MG/0.4 ML SYR SQ SCH (21:38)
[2023-03-12] MEDS: INSULIN ASPART PER UNIT CHARGE SC SCH ×5 (00:43→21:09)
[2023-03-12] MEDS: HYDROmorphone INJ 0.5 MG/0.5 ML SYR IV PRN ×6 (03:16→22:31)
[2023-03-12] MEDS: METOCLOPRAMIDE HCL INJ 5 MG/ML 2 ML VIAL IV PRN ×3 (03:17→19:38)
[2023-03-12] MEDS: LACTATED RINGER'S 1,000 ML IV SCH ×4 (03:40→19:36)
[2023-03-12 06:59] LABS: Hematocrit (blood only) 26.2 % (37.0-47.0); Mean Corpuscular Hemoglobin 29.7 pg (25.0-34.0); Mean Corpuscular Hgb Conc 34.4 g/dL (32.0-36.0); Mean Corpuscular Volume 86.5 fL (80.0-100.0); Mean Platelet Volume 10.3 fL (9.4-12.4); Platelet Count 217 K/uL (130-400); RDW Coefficient of Variation 12.1 % (11.5-14.5); RDW Standard Deviation 38.5 fL (36.4-46.3); Red Blood Count 3.03 M/uL (4.20-5.40); White Blood Count 7.05 K/ul (4.8-10.8)
[2023-03-12 07:14] LABS: Alanine Aminotransferase 7 U/L (7-52); Albumin Globulin Ratio 1.2 (0.9-2); Albumin Level 2.7 gm/dl (3.4-5.0); Alkaline Phosphatase 42 U/L (34-104); Anion Gap 5 (3-11); Aspartate Aminotransferase 11 U/L (13-39); BUN Creatinine Ratio 12.2 (10-20); Bilirubin,Total 0.4 mg/dl (0.2-1.0); Blood Urea Nitrogen 5 mg/dl (6-23); Calcium 8.1 mg/dl (8.6-10.3); Carbon Dioxide 29 mmol/L (21-32); Chloride 104 mmol/L (98-107); Est GFR (African American) > 150.0 ml/min; Est GFR (Non-African American) 132.9 ml/min; Globulin 2.3 gm/dl (2.5-4.0); Glucose 103 mg/dl (70-99(Fasting)); Lipase 239 U/L (11-82); Magnesium 1.4 mg/dl (1.7-2.4); Phosphorus 3.4 mg/dl (2.5-4.9); Potassium 3.2 mmol/L (3.5-5.1); Sodium 138 mmol/L (136-145)
[2023-03-12] MEDS: ARIPiprazole 5 MG TAB PO SCH (08:13)
[2023-03-12] MEDS: FLUTICASONE/VILANTEROL 200/25MCG 14 PUFFS/INHALER INH SCH (08:13)
[2023-03-12] MEDS: CHOLECALCIFEROL 1,000 UNITS 25 MCG TAB PO SCH (08:13)
[2023-03-12] MEDS: POLYETHYLENE (MIRALAX) 17 GM PACK PO SCH (08:13)
[2023-03-12] MEDS: PANTOprazole 40 MG TAB PO SCH (08:13)
[2023-03-12] MEDS: ONDANSETRON INJ 2 MG/ML 2 ML VIAL IV PRN ×2 (08:14→15:58)
[2023-03-12] MEDS: LANTUS PER UNIT CHARGE SQ SCH ×2 (08:16→21:10)
[2023-03-12] MEDS ORDERED: MAGNESIUM SULFATE / D5W 1 GM/100 ML BAG IV ONE (08:55)
[2023-03-12] MEDS ORDERED: POTASSIUM CHLORIDE CRTAB 20 MEQ TABCR PO STA (08:56)
[2023-03-12] MEDS: POTASSIUM CHLORIDE / WTR 10 MEQ/100 ML PLCT IV SCH ×2 (09:11→10:04)
--- NOTE | 2023-03-12 09:19 | Gastroenterology Progress Note ---
Date of Service March 12, 2023 Assessment & Plan (1) Acute pancreatitis: Plan: Difficult to tell if she is better or not but she was curious as to why she is staying here. I told her she needs to be able to eat first. She will try liquids again today Admission and Anticipated Discharge Date Admission Date: March 10, 2023 Subjective she says she is better. Pain rates 7 out of 10 which is the same as before but she says her pain got worse again yesterday. She was on liquids but she put herself back onto sips and chips. She is interested in trying liquids again Physical Exam Physical Exam: She looks comfortable Constitutional: WD/WN, vitals as above Results & Data Vital Signs (Past 12 Hours) Vital Signs Temp Pulse Resp BP Pulse Ox O2 Del Method 03/12/23 07:37 36.7 C 76 18 124/86 100 Room Air 03/11/23 21:50 36.5 C 71 18 128/90 100 Room Air
--- NOTE | 2023-03-12 10:30 | Electrocardiogram Report ---
Test Reason : Blood Pressure : / mmHG Vent. Rate : 077 BPM Atrial Rate : 077 BPM P-R Int : 154 ms QRS Dur : 078 ms QT Int : 380 ms P-R-T Axes : 052 022 -14 degrees QTc Int : 430 ms Normal sinus rhythm Nonspecific T wave abnormality Abnormal ECG When compared with ECG of 06-AUG-2022 07:54, No significant change was found Confirmed by Kumar Solano ([id number]) on 03/12/2023 10:29:32 AM Referred By: REFERRED SELF Confirmed By:Kumar Solano
[2023-03-12] MEDS: ACETAMINOPHEN 325 MG TAB PO PRN ×2 (10:47→18:31)
--- NOTE | 2023-03-12 14:31 | Hospitalist Progress Note ---
Date of Service March 12, 2023 Assessment & Plan (1) Acute pancreatitis: (2) DMII (diabetes mellitus, type 2): (3) HTN (hypertension): (4) Bipolar disorder: (5) Major depressive disorder: (6) ANGE (generalized anxiety disorder): Plan This is a 37yo F with PMH of DM II, HTN, history of alcohol use disorder, pancreatitis, mood disorder and other medical problems listed below who presents with epigastric abdominal pain that have progressively worsened over the last week and was found to have acute recurrent pancreatitis. Acute recurrent pancreatitis Worsening epigastric pain over past week, etoh use 5 days ago Follows with [facility] - h/o ERCP on 08/05/22 with pancreatic sphincterotomy extension was performed and PD orifice balloon dilation sphincteroplasty performed. GI planning for MRCP 03/21/23 CT abd/pelvis with mild acute on chronic pancreatitis. No acute peripancreatic fluid collections. Unchanged dilation of the common bile duct with focal narrowing at or just proximal to the ampulla suggestive of a chronic stricture. LR @ 200ml/hr, continue Bowel rest for now DM II A1c 8.6 in November 2022 Did not take insulin earlier today, feels confused about home regimen and initial BSG 246 Basal/bolus insulin per protocol while admitted BSG AC HS or Q6H while NPO Bipolar disorder Anxiety Receives Abilify injections monthly, recent medications changes - now on Abilify 5mg daily, Ativan 0.5mg daily PRN, 0.1mg clonidine HS (med rec updated) Asthma Stable, uses albuterol inh as needed, Advair infrequently Constipation History of chronic issue, instructed to use miralax daily by GI but ran out weeks ago Last bowel movement 3 days ago but has not had PO intake other than limited water Continue Miralax History of prolonged QTc QTc 430 DVT Ppx: SQ lovenox Code status: FULL PCP: Ernesto Nathan Dispo: From home, possible d/c in next couple days if tolerating diet Admission and Anticipated Discharge Date Admission Date: March 10, 2023 Subjective Yesterday abdominal pain subsided and she was trialed on a clear liquid diet. She did not do well and pain increased, also had nausea Currently on bowel rest. Takes pills with sips of water and still with some epigastric discomfort Review of Systems Review of Systems: as above Physical Exam Physical Exam: Pleasant, no acute distress, non toxic Respiratory: breathing comfortably on room air, no wheezing/rhonchi Cardiovascular: regular rate and rhythm, no murmurs/rubs Gastrointestinal (Abdomen): +Bs, + epigastric tenderness, no rebound or guarding Neurologic: awake, alert, spontnaeoulsy moving extremities Results & Data Results & Data Vital Signs (Past 12 Hours) Vital Signs Temp Pulse Resp BP Pulse Ox O2 Del Method 03/12/23 07:37 36.7 C 76 18 124/86 100 Room Air
[2023-03-12] MEDS: ENOXAPARIN INJ 40 MG/0.4 ML SYR SQ SCH (21:08)
[2023-03-12] MEDS: cloNIDine HCL 0.1 MG TAB PO SCH (21:08)
[2023-03-12] MEDS: LORazepam 0.5 MG TAB PO PRN (21:13)
[2023-03-13] MEDS: LACTATED RINGER'S 1,000 ML IV SCH ×2 (00:52→05:53)
[2023-03-13] MEDS: METOCLOPRAMIDE HCL INJ 5 MG/ML 2 ML VIAL IV PRN ×3 (01:33→18:43)
[2023-03-13] MEDS: HYDROmorphone INJ 0.5 MG/0.5 ML SYR IV PRN ×7 (01:33→21:44)
[2023-03-13 06:35] LABS: Alanine Aminotransferase 9 U/L (7-52); Albumin Globulin Ratio 1.1 (0.9-2); Albumin Level 2.9 gm/dl (3.4-5.0); Alkaline Phosphatase 42 U/L (34-104); Anion Gap 9 (3-11); Aspartate Aminotransferase 11 U/L (13-39); BUN Creatinine Ratio 7.5 (10-20); Bilirubin,Total 0.4 mg/dl (0.2-1.0); Blood Urea Nitrogen 3 mg/dl (6-23); Calcium 8.5 mg/dl (8.6-10.3); Carbon Dioxide 29 mmol/L (21-32); Chloride 102 mmol/L (98-107); Creatinine Clr Calc Pharmacy 159.9 ml/min; Est GFR (African American) > 150.0 ml/min; Globulin 2.6 gm/dl (2.5-4.0); Glucose 70 mg/dl (70-99(Fasting)); Lipase 215 U/L (11-82); Magnesium 1.3 mg/dl (1.7-2.4); Potassium 2.8 mmol/L (3.5-5.1); Sodium 140 mmol/L (136-145); Total Protein 5.5 gm/dl (6.0-8.3)
[2023-03-13] MEDS ORDERED: POTASSIUM CHLORIDE PWD 20 MEQ PACK PO ONE ×2 (07:00→09:00)
[2023-03-13] MEDS: MAGNESIUM SULFATE / D5W 1 GM/100 ML BAG IV SCH ×3 (07:16→10:56)
[2023-03-13] MEDS: FLUTICASONE/VILANTEROL 200/25MCG 14 PUFFS/INHALER INH SCH (07:17)
[2023-03-13] MEDS: LANTUS PER UNIT CHARGE SQ SCH ×2 (07:54→21:45)
[2023-03-13] MEDS: INSULIN ASPART PER UNIT CHARGE SC SCH ×4 (07:54→21:45)
[2023-03-13] MEDS: ARIPiprazole 5 MG TAB PO SCH (08:08)
[2023-03-13] MEDS: POLYETHYLENE (MIRALAX) 17 GM PACK PO SCH (08:08)
[2023-03-13] MEDS: CHOLECALCIFEROL 1,000 UNITS 25 MCG TAB PO SCH (08:08)
[2023-03-13] MEDS: PANTOprazole 40 MG TAB PO SCH (08:08)
[2023-03-13] MEDS: DICYCLOMINE HCL 10 MG CAP PO PRN (08:09)
[2023-03-13] MEDS: ONDANSETRON INJ 2 MG/ML 2 ML VIAL IV PRN ×3 (08:12→21:44)
[2023-03-13] MEDS: SODIUM CHLOR 0.45% + 20MEQ KCL 20 MEQ/1,000 ML BAG IV SCH ×2 (08:21→18:00)
[2023-03-13] MEDS: ACETAMINOPHEN 325 MG TAB PO PRN (10:30)
--- NOTE | 2023-03-13 13:30 | Gastroenterology Progress Note ---
Date of Service March 13, 2023 Assessment & Plan (1) Acute pancreatitis: Plan Advance diet to soft, low fat. No narcotics Please correct hypokalemia. Has OP MRCP arranged. GI will sign off. Please recall if questions. Admission and Anticipated Discharge Date Admission Date: March 12, 2023 Supervising Physician Co-Signing Physician Notes Patient was seen and examined on 03/13 with BROOKE Harry whose note reflects our findings and plan. Subjective 37 yr old female. admitted on 03/11 w acute, recurrent pancreatitis, admitted to a few mixed drinks - likely the trigger. Pain is now minimum and she is tolerating a low fat regular consistency diet. Review of Systems Review of Systems: ROS: Gen: Denies weakness, fevers, weight loss Eyes: No eye redness, or pain, no recent vision changes Resp: No SOB, no cough Cardio: No palpitations/irregular beats, no chest pain GI: As per HPI, otherwise (-) : Denies pain on urination Skin: No jaundice, itching or new rashes Physical Exam Constitutional: WD/WN, vitals as above Eyes: PERRL, conjunctivae normal, anicteric sclerae ENMT: external ear and nose normal, oropharynx normal Neck: trachea midline, no thyromegaly Respiratory: normal respiratory effort, lungs clear to auscultation Cardiovascular: RRR, no murmur, no edema Gastrointestinal (Abdomen): Mild epigastric tenderness on deep palpation, otherwise (-). Skin: no rashes, warm and dry Neurologic: PERRL, EOMI, accommodation nl, no face palsy, no dysarthria Psychiatric: A+Ox3, euthymic affect Lymphatic: no cervical or axillary lymphadenopathy Results & Data Vital Signs (Past 12 Hours) Vital Signs Temp Pulse Resp BP Pulse Ox O2 Del Method 03/13/23 07:33 36.9 C 72 16 112/75 98 Room Air Laboratory Results 7, Hb 8, Hct 26, Plt 217, Na 140, K 2.8, Cl 102, CO2 29, BUN 3, Cr 143. Diagnostic Findings CTAP w IV 03/10/23: 1. Mild acute on chronic pancreatitis. No acute peripancreatic fluid collections. 2. Unchanged dilation of the common bile duct with focal narrowing at or just proximal to the ampulla suggestive of a chronic stricture. 3. Unremarkable gallbladder without biliary ductal dilation. 4. Nonspecific heterogeneous enhancement throughout the posterior right hepatic lobe.
[2023-03-13] MEDS ORDERED: MAGNESIUM SULFATE / D5W 1 GM/100 ML BAG IV ONE (14:30)
--- NOTE | 2023-03-13 16:05 | Hospitalist Progress Note ---
Date of Service March 13, 2023 Assessment & Plan (1) Acute pancreatitis: (2) DMII (diabetes mellitus, type 2): (3) HTN (hypertension): (4) Bipolar disorder: (5) Major depressive disorder: (6) ANGE (generalized anxiety disorder): Plan This is a 37yo F with PMH of DM II, HTN, history of alcohol use disorder, pancreatitis, mood disorder and other medical problems listed below who presents with epigastric abdominal pain that have progressively worsened over the last week and was found to have acute recurrent pancreatitis. Acute recurrent pancreatitis Worsening epigastric pain over past week, etoh use 5 days ago Follows with [facility] - h/o ERCP on 08/05/22 with pancreatic sphincterotomy extension was performed and PD orifice balloon dilation sphincteroplasty performed. GI planning for MRCP 03/21/23 CT abd/pelvis with mild acute on chronic pancreatitis. No acute peripancreatic fluid collections. Unchanged dilation of the common bile duct with focal narrowing at or just proximal to the ampulla suggestive of a chronic stricture. Tolerated clears yesterday, now on low fat diet Will reduce IVF down to 100 cc/hr due to hypokalemia Hypokalemia Hypomagnesemia -despite repletions, worsening -reduce IVF--change to NSS +20mEQ KCl, continue repletions. repeat BMP and Mg again later today DM II A1c 8.6 in November 2022 Did not take insulin earlier today, feels confused about home regimen and initial BSG 246 Basal/bolus insulin per protocol while admitted BSG AC HS or Q6H while NPO Bipolar disorder Anxiety Receives Abilify injections monthly, recent medications changes - now on Abilify 5mg daily, Ativan 0.5mg daily PRN, 0.1mg clonidine HS (med rec updated) Asthma Stable, uses albuterol inh as needed, Advair infrequently Constipation History of chronic issue, instructed to use miralax daily by GI but ran out weeks ago Last bowel movement 3 days ago but has not had PO intake other than limited w ater Continue Miralax History of prolonged QTc QTc 430 DVT Ppx: SQ lovenox Code status: FULL PCP: Ernesto Nathan Dispo: From home, possible d/c in next couple days if tolerating diet Admission and Anticipated Discharge Date Admission Date: March 10, 2023 Admission and Anticipated Discharge Date Admission Date: March 12, 2023 Subjective Tolerating some solid food. Ate some melon, abdominal pain returned but then subsided Urinating quite a bit with IVF. Ambulating around in room No nausea/vomiting/diarrhea Review of Systems Review of Systems: as above Physical Exam Physical Exam: No acute distress, non toxic Respiratory: Breathing comfortably on room air, no wheezing/rhonchi/rales Cardiovascular: regular rate and rhythm, no murmurs/rubs Gastrointestinal (Abdomen): soft, mild +epigastric tenderness, no rebound or guarding Neurologic: awake, alert, spontaneously moving extremities Results & Data Results & Data Vital Signs (Past 12 Hours) Vital Signs Temp Pulse Resp BP Pulse Ox O2 Del Method 03/13/23 15:37 36.8 C 66 14 120/77 95 Room Air 03/13/23 07:33 36.9 C 72 16 112/75 98 Room Air
[2023-03-13 17:37] LABS: BUN Creatinine Ratio 4.4 (10-20); Calcium 8.4 mg/dl (8.6-10.3); Creatinine Clr Calc Pharmacy 142.1 ml/min; Est GFR (African American) 149.4 ml/min; Est GFR (Non-African American) 128.9 ml/min; Magnesium 2.1 mg/dl (1.7-2.4); Potassium 3.6 mmol/L (3.5-5.1)
[2023-03-13] MEDS: ENOXAPARIN INJ 40 MG/0.4 ML SYR SQ SCH (21:25)
[2023-03-13] MEDS: cloNIDine HCL 0.1 MG TAB PO SCH (21:26)
[2023-03-14] MEDS: METOCLOPRAMIDE HCL INJ 5 MG/ML 2 ML VIAL IV PRN (00:49)
[2023-03-14] MEDS: HYDROmorphone INJ 0.5 MG/0.5 ML SYR IV PRN ×4 (00:49→13:02)
[2023-03-14] MEDS: SODIUM CHLOR 0.45% + 20MEQ KCL 20 MEQ/1,000 ML BAG IV SCH (04:08)
[2023-03-14] MEDS: ONDANSETRON INJ 2 MG/ML 2 ML VIAL IV PRN (06:15)
[2023-03-14 07:57] LABS: Albumin Globulin Ratio 1.2 (0.9-2); BUN Creatinine Ratio 14.6 (10-20); Bilirubin,Total 0.3 mg/dl (0.2-1.0); Calcium 8.4 mg/dl (8.6-10.3); Creatinine Clr Calc Pharmacy 133.2 ml/min; Est GFR (African American) 146.3 ml/min; Est GFR (Non-African American) 126.2 ml/min; Globulin 2.6 gm/dl (2.5-4.0); Magnesium 1.7 mg/dl (1.7-2.4); Potassium 4.1 mmol/L (3.5-5.1); Total Protein 5.6 gm/dl (6.0-8.3)
[2023-03-14] MEDS: INSULIN ASPART PER UNIT CHARGE SC SCH ×2 (09:09→13:02)
[2023-03-14] MEDS: POLYETHYLENE (MIRALAX) 17 GM PACK PO SCH (09:09)
[2023-03-14] MEDS: PANTOprazole 40 MG TAB PO SCH (09:21)
[2023-03-14] MEDS: FLUTICASONE/VILANTEROL 200/25MCG 14 PUFFS/INHALER INH SCH (09:21)
[2023-03-14] MEDS: LANTUS PER UNIT CHARGE SQ SCH (09:21)
[2023-03-14] MEDS: ARIPiprazole 5 MG TAB PO SCH (09:21)
[2023-03-14] MEDS: CHOLECALCIFEROL 1,000 UNITS 25 MCG TAB PO SCH (09:21)
[2023-03-14] MEDS: DICYCLOMINE HCL 10 MG CAP PO PRN (09:22)
--- NOTE | 2023-03-14 11:33 | Discharge Summary ---
Discharge Summary Date of Service March 14, 2023 Notes For Next Care Provider Patient admitted with recurrent pancreatitis, treated with IVF and bowel rest. Has follow up with [facility] and MRCP 03/23/23. Recommend checking BMP and Mag at follow up appointment. Pt Potassium and M agnesium were low and replaced accordingly. Medication Changes From Visit None Admission HPI Per Admitting Provider This is a 37yo F with PMH of DM II, HTN, history of alcohol use disorder, pancreatitis, mood disorder and other medical problems listed below who presents with epigastric abdominal pain that have progressively worsened over the last week. For the past 3 weeks she endorses intermittent shooting pain in upper stomach but over the past few days pain has become more constant in bandlike distribution of upper abdomen radiating to her back. Had 3 mixed drinks while on a trip to [place] 5 days ago but denies any further alcohol since. Associated symptoms include nausea and intermittent vomiting over the past 3 days. Cannot even keep water down. No F/C, cough, CP, SOB, dysuria, diarrhea. Last bowel movement was 3 days ago but has only had small amounts of water the past few days. Did not take her insulin today. Follows with [facility] and underwent ERCP on 08/05/22 with previously placed pancreatic duct stent had spontaneously migrated out of the duct as well as findings of chronic pancreatitis, papillary stenosis post papillectomy. Biopsy was performed from ampullary area. Both biliary and pancreatic sphincterotomy extension was performed and PD orifice balloon dilation sphincteroplasty performed. [email or web address] planning for MRCP 03/21/23. Admission Exam Per Admitting Provider General Appearance:WD/WN, vitals as above, NAD, sitting up in bed, pleasant, appears ill Head: normocephalic, atraumatic Eyes:normal inspection, PERRL, conjunctivae normal, anicteric sclerae ENT: external ear and nose normal, oropharynx normal Neck: normal visual inspection, trachea midline, no thyromegaly Respiratory:normal respiratory effort, lungs clear to auscultation, no wheeze, rales, rhonchi. No accessory muscle use Cardiovascular: regular rate, rhythm, normal peripheral pulses, no BLE edema. Vessels: no JVD Chest: normal inspection of chest Abdomen/GI: normal bowel sounds, soft with TTP across upper abdomen, no hepatosplenomegaly Extremities/Musculoskeletal: no cyanosis or clubbing, extremities motor strength 5/5 Neurologic: PERRL, EOMI, accommodation nl, no face palsy, no dysarthria, CN's II-XI intact bilaterally and moves all extremities Psychiatric:A+Ox3, euthymic affect Skin: no rashes, normal color, warm/dry Principal Dx & Hospital Course #1 = Principal Diagnosis (1) Acute pancreatitis: (2) DMII (diabetes mellitus, type 2): (3) HTN (hypertension): (4) Bipolar disorder: (5) Major depressive disorder: (6) ANGE (generalized anxiety disorder): Plan This is a 37yo F with PMH of DM II, HTN, history of alcohol use disorder, pancreatitis, mood disorder and other medical problems listed below who presents with epigastric abdominal pain that have progressively worsened over the last week and was found to have acute recurrent pancreatitis. Acute recurrent pancreatitis Worsening epigastric pain over past week, etoh use 5 days ago Follows with [facility] - h/o ERCP on 08/05/22 with pancreatic sphincterotomy extension was performed and PD orifice balloon dilation sphincteroplasty performed. GI planning for MRCP 03/23/23 CT abd/pelvis with mild acute on chronic pancreatitis. No acute peripancreatic fluid collections. Unchanged dilation of the common bile duct with focal narrowing at or just proximal to the ampulla suggestive of a chronic stricture. tolerating low fat diet electrolytes replaced will discharge to home with close PCP and GI follow up Hypokalemia Hypomagnesemia repleted recommend PCP check BMP and mag at hospital follow up DM II A1c 8.6 in November 2022 continue metformin, Lantus at discharge encourage patient to check bsg and keep log to take to PCP follow up Bipolar disorder Anxiety Receives Abilify injections monthly, recent medications changes - now on Abilify 5mg daily, Ativan 0.5mg daily PRN, 0.1mg clonidine HS (med rec updated) mood stable Asthma Stable, uses albuterol inh as needed, Advair infrequently Constipation History of chronic issue, instructed to use miralax daily by GI but ran out weeks ago Last bowel movement 3 days ago but has not had PO intake other than limited water Continue Miralax - encourage to buy over the counter and take daily History of prolonged QTc QTc 430 DVT Ppx: SQ lovenox Code status: FULL PCP: Ernesto Nathan Dispo: From home, Discharge to home today Discharge Exam Gen: WD/WN, NAD, A&O x3 HEENT: Normocephalic, atraumatic, conjunctivae moist, sclerae anicteric, mucous membranes moist. Lung: Clear to Auscultation bilaterally, no wheezes/rales/rhonchi Heart: Regular rate, regular rhythm, no murmurs, rubs, or gallops Abdomen: Soft, NT, ND +BS x 4 Extremities: No edema Skin: Warm, no rash, negative turgor. Updated Medication List Medication Instructions Recorded Confirmed Type thiamine HCl (vitamin B1) 100 mg 100 mg PO QAM #30 tabs 08/16/21 03/10/23 Rx tablet (Vitamin B-1) epinephrine 0.3 mg/0.3 mL 0.3 mg IM UD PRN Allergic Reaction 11/18/21 03/10/23 History injection, auto-injector fluticasone 250 mcg-salmeterol 50 1 inh inhalation BID PRN Shortness 11/18/21 03/10/23 History mcg/dose blistr powdr for Of Breath inhalation (Advair Diskus) insulin lispro 100 unit/mL See Rx Instructions .Route .COMPLEX 11/18/21 03/10/23 History subcutaneous solution ondansetron 4 mg disintegrating 4 mg PO DAILY PRN nausea and 11/21/21 03/10/23 Rx tablet vomiting #30 tabs polyethylene glycol 3350 17 17 g PO DAILY constipation #119 11/21/21 03/10/23 Rx gram/dose oral powder (Miralax) grams sodium phosphates 19 gram-7 118 ml LA DAILY PRN constipation 11/21/21 03/10/23 Rx gram/118 mL enema (Enema) #931 mL Medical Marijuana 1 dose inhalation HS PRN Sleep 02/08/22 03/10/23 History pantoprazole 40 mg tablet,delayed 40 mg PO DAILY 02/11/22 03/10/23 History release (Protonix) aripiprazole 400 mg intramuscular 400 mg IM MONTHLY 08/02/22 03/10/23 History suspension,extended release (Abilify Maintena) potassium citrate 10 mEq (1,080 10 meq PO HS 08/02/22 03/10/23 History mg) tablet,extended release insulin glargine 100 unit/mL (3 10 unit subcut DAILY 08/06/22 03/10/23 History mL) subcutaneous pen (Lantus Solostar U-100 Insulin) acetaminophen 325 mg tablet 650 mg PO Q4H PRN pain #50 tabs 08/09/22 03/10/23 Rx magnesium oxide 400 mg (241.3 mg 400 mg PO QAM #30 tabs 08/09/22 03/10/23 Rx magnesium) tablet aripiprazole 5 mg tablet 5 mg PO DAILY 03/10/23 03/10/23 History cholecalciferol (vitamin D3) 50 50 mcg PO DAILY 03/10/23 03/10/23 History mcg (2,000 unit) tablet clonidine HCl 0.1 mg tablet 0.1 mg PO HS 03/10/23 03/10/23 History dicyclomine 10 mg capsule 10 mg PO QID PRN Abdominal 03/10/23 03/10/23 History Discomfort folic acid 1 mg tablet 1 mg PO DAILY 03/10/23 03/10/23 History lorazepam 0.5 mg tablet 0.5 mg PO DAILY PRN Anxiety 03/10/23 03/10/23 History metformin 500 mg tablet,extended 1,000 mg PO DAILY 03/10/23 03/10/23 History release 24 hr oxycodone-acetaminophen 5 mg-325 1 tab PO Q8H PRN pain #12 tabs 03/14/23 Rx mg tablet (Percocet) Hospital Stay Data Consultations 03/10/23 17:41 ED Decision to Admit Stat 03/10/23 17:46 Consult Gastroenterology Routine Diagnostic Imagining Performed Abdomen/Pelvis CT 03/10/23 15:[address] WITH IV CONTRAST CT DOSE: 585.58 mGy.cm HISTORY: Acute generalized abdominal pain abd pain, elev lipase, h/o pancreatitis/stones TECHNIQUE: Multiaxial CT images of the abdomen and pelvis were performed following the IV administration of 93 cc of Optiray, A dose lowering technique was utilized adhering to the principles of ALARA. COMPARISON STUDY: 08/06/2022 FINDINGS: Clear lung bases. Mild right hemidiaphragmatic elevation. Unremarkable pancreas, gallbladder and adrenal glands. Nonspecific heterogeneous enhancement throughout the posterior right hepatic lobe. Patency of the portal vein. Scattered coarse calcifications of the pancreas. Pancreatic ductal dilation is again noted measuring up to approximately 8 mm with abrupt narrowing at or just proximal to the ampulla. No obstructing stone or lesion. Normal caliber of the common bile duct. Mild interstitial and peripancreatic inflammation. No peripancreatic fluid collections or diminished enhancement. Cortical scarring with areas of parenchymal thinning again noted within the left kidney. Homogeneous renal enhancement. There is no hydronephrosis. Urinary bladder wall thickening with partial distention. Heterogeneity of the uterus with calcified fibroids. Dominant left ovarian follicle, 1.4 cm. Atherosclerosis of the aorta without aneurysm. No lymphadenopathy. Tiny hiatal hernia. Colonic diverticulosis. Normal appendix. Unremarkable soft tissues. No acute fracture. IMPRESSION: 1. Mild acute on chronic pancreatitis. No acute peripancreatic fluid collections. 2. Unchanged dilation of the common bile duct with focal narrowing at or just proximal to the ampulla suggestive of a chronic stricture. 3. Unremarkable gallbladder without biliary ductal dilation. 4. Nonspecific heterogeneous enhancement throughout the posterior right hepatic lobe. 5. Additional findings as above. ACT 112: Negative or not required by law. The above report was generated using voice recognition software. It may contain grammatical, syntax or spelling errors. Electronically signed by: Pepe Lancaster M.D. 03/10/2023 5:01 PM Chest X-Ray 03/10/23 16:07 XR chest 1V portable HISTORY: Epigastric abdominal pain COMPARISON: Chest 08/05/2022. FINDINGS: The lungs are clear. Cardiac silhouette is normal in size. No pleural effusions. No pneumothorax. Mild elevation of the right hemidiaphragm. IMPRESSION: Mild elevation of the right hemidiaphragm. Otherwise, no acute process within the chest. ACT 112: Negative or not required by law. Electronically signed by: Kadeem Graff M.D. 03/10/2023 5:05 PM Pending Results Patient Have Any Pending Studies at Discharge: No Discharge Instructions Given to Patient (Per Discharging Provider) MEDICATION CHANGES: None, Continue all of your current medications Recommend taking over the counter Miralax to aide with constipation. SUMMARY OF TEST RESULTS: You were admitted to hospital for recurrent pancreatitis. You were treated conservatively with bowel rest and IV fluids. Your magnesium and potassium were low and these were replaced. PENDING TEST RESULTS: None RECOMMENDATIONS FOR FOLLOW-UP: Please do not drink any alcohol as this will cause pancreatitis Take all medications as prescribed. You may use over the counter Miralax for constipation. Check your blood sugar first thing in the morning, before meals and bed time. Please keep a log of all your blood sugars and take with you to your follow up appointment with primary care provider. Please keep all follow ups with [facility], they are scheduling you an outpatient study, DUC, 03/23/23 @ 1:45 p.m. Please arrive 15 minutes before appointment. Seek medical attention if you have: * temperature above 101 * chest pain or trouble breathing * abdominal pain, nausea, vomiting * diarrhea, dark stools or bloody stools * any unanswered questions or concerns Call 911 if symptoms are severe. Please take good care of yourself. It has been a pleasure taking care of you. Please take care of yourself. If you have any questions regarding your recent hospitalization please contact [facility] and request Jun [facility] @ [phone]. Malini Espinoza PA-C Total Time Total Time Spent Total Time Spent (In Minutes): 45 minutes Supervising Physician Co-Signing Physician Notes Patient was seen and examined independently. Chart reviewed. Case discussed with KAYLIN
== END 2023-03-14 14:57 | disposition home or self-care (01) | DRG 440 ==
LOC: 3W 13:51 → ED 13:51 → SUATTDRO 17:45 → 3W 20:25

== ENCOUNTER 2023-08-30 09:00 | Inpatient (IN) ==
[2023-08-30] MEDS ORDERED: SODIUM CHLORIDE 0.9% 1,000 ML IV STA ×2 (09:16→09:22)
[2023-08-30] MEDS ORDERED: MoRPHine SULFATE 4 MG/ML 1 ML CARP\\VIAL IV STA ×2 (09:22→11:39)
[2023-08-30] MEDS ORDERED: ONDANSETRON INJ 2 MG/ML 2 ML VIAL IV STA ×2 (09:22→11:39)
--- NOTE | 2023-08-30 09:22 | Emergency Department Note ---
History of Present Illness General Chief complaint: Vomiting Stated complaint: VOMITING AND SIDE PAIN Time Seen by Provider: 08/30/23 09:15 History of Present Illness Maximum Pain Intensity: 9 NAME: JULIA WEBB AGE: 37 SEX: F : 1985 ARRIVES VIA: Walk-In INFORMANT: Patient ED PROVIDER(S): BROOKE Fuchs, Kristian Valencia, The patient is a 39-year-old female who arrives to the emergency department for right upper quadrant, epigastric abdominal pain with vomiting. The patient reports she does have a history of pancreatitis. She states the symptoms are very similar to her previous episodes. She is scheduled for an endoscopy on Monday, to have a pancreatic stent removed which was placed in July 2023. The patient states she has been unable to keep any food or fluids down for the past few days. She does have a history of DMII however she has not been taking her metformin or her insulin. She states last time she checked her blood sugar was on Monday, and it was in the 200s range. The patient does report abdominal tenderness, however she denies fevers. She states she was recently treated for a urinary tract infection which is being treated with Macrobid, she denies any urinary symptoms at this time. Home Medications Medication Instructions Recorded Confirmed Type epinephrine 0.3 mg/0.3 mL 0.3 mg IM UD PRN Allergic Reaction 11/18/21 08/30/23 History injection, auto-injector fluticasone 250 mcg-salmeterol 50 1 inh inhalation BID PRN Shortness 11/18/21 08/30/23 History mcg/dose blistr powdr for Of Breath inhalation (Advair Diskus) insulin lispro 100 unit/mL See Rx Instructions .Route .COMPLEX 11/18/21 08/30/23 History subcutaneous solution Medical Marijuana 1 dose inhalation HS PRN Sleep 02/08/22 08/30/23 History pantoprazole 40 mg tablet,delayed 40 mg PO QAM 02/11/22 08/30/23 History release (Protonix) aripiprazole 400 mg intramuscular 400 mg IM MONTHLY 08/02/22 08/30/23 History suspension,extended release (Abilify Maintena) insulin glargine 100 unit/mL (3 10 unit subcut DAILY 08/06/22 08/30/23 History mL) subcutaneous pen (Lantus Solostar U-100 Insulin) aripiprazole 5 mg tablet (Abilify) 5 mg PO QAM 03/10/23 08/30/23 History cholecalciferol (vitamin D3) 50 50 mcg PO DAILY 03/10/23 08/30/23 History mcg (2,000 unit) tablet lorazepam 0.5 mg tablet 0.5 mg PO DAILY PRN Anxiety 03/10/23 08/30/23 History metformin 500 mg tablet,extended 1,000 mg PO DAILY 03/10/23 08/30/23 History release 24 hr polyethylene glycol 3350 17 17 g PO DAILY PRN Constipation 05/03/23 08/30/23 History gram/dose oral powder (Miralax) Allergies Allergy/AdvReac Type Severity Reaction Status Date / Time bee venom protein (honey bee) Allergy Severe ANAPHYLAXIS Verified 05/03/23 14:03 Past Med/Surg History Medical History History of prolonged Q-T interval on ECG Pancreatic stones Anxiety and depression Chronic neck pain Medical marijuana use Alcohol use disorder quit 1.5 years ago History of pancreatitis Post traumatic stress disorder (PTSD) ANGE (generalized anxiety disorder) Diabetes IDDM Scoliosis MINOR GERD (gastroesophageal reflux disease) Cardiac murmur no significant valvular disease on 08/20/2019 echo Asthma has not used inhaler for a long time Major depressive disorder (05/02/11) Surgical History History of tonsillectomy and adenoidectomy History of esophagogastroduodenoscopy (EGD) History of ERCP History of section x 2 Family History Other Adopted No family history of adverse response to anesthesia Social History Smoking Status: Former smoker Tobacco Type: E-cigarettes / Vaping Second Hand Exposure: Yes (at work); Do You Dip or Chew Tobacco: No; Hx Alcohol Use: No Hx Substance Use: No Preferred Language: Cypriot 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: Effective Beauty Specialist Required: No Beliefs That Will Affect Care: None marital status: Single Current Living Situation: Alone and Family Current Living Situation Comment: 2 children Feels Safe at Home: Yes Assistive Devices: None Physical Exam Vital Signs Vital Signs - 24 hr 08/30/23 09:10 08/30/23 09:39 08/30/23 09:41 Temperature 36.7 C Temperature Source Temporal Artery Scan Pulse Rate 93 H 89 87 Pulse Rate [Right Finger] Respiratory Rate 19 20 Respiratory Effort / Characteristics Non-Labored Spontaneous Respiratory Depth Normal Blood Pressure 110/73 Blood Pressure [Left Arm] Blood Pressure Mean 85 Blood Pressure Mean [Left Arm] Pulse Oximetry 100 99 Oxygen Delivery Method Room Air Room Air Sepsis Recent Fever Within 48 Hours Yes Sepsis New/Unexplained Change in Mental Status No Sepsis Action Taken by Nursing No Action Required 08/30/23 11:51 Temperature Temperature Source Pulse Rate Pulse Rate [Right Finger] 72 Respiratory Rate 20 Respiratory Effort / Characteristics Non-Labored Spontaneous Respiratory Depth Normal Blood Pressure Blood Pressure [Left Arm] 95/65 L Blood Pressure Mean Blood Pressure Mean [Left Arm] 75 Pulse Oximetry 98 Oxygen Delivery Method Room Air Sepsis Recent Fever Within 48 Hours Sepsis New/Unexplained Change in Mental Status Sepsis Action Taken by Nursing VITALS: Vitals are noted on the nurse's note and reviewed by myself. Vital signs stable. GENERAL: 37-year-old female in no acute distress, nondiaphoretic, well-developed well-nourished. SKIN: The skin was without rashes, erythema, edema, or bruising. HEAD: Normocephalic atraumatic. NECK: Supple without nuchal rigidity. No lymphadenopathy. No thyromegaly. Cervical spine is nontender. No JVD. HEART: Regular rate and rhythm without murmurs gallops or rubs. LUNGS: Clear to auscultation bilaterally without wheezes, rales or rhonchi. No dullness to percussion. No retractions or accessory muscle use. ABDOMEN: Positive bowel sounds x 4. TTP RUQ, epigastric, some guarding, no rebound tenderness. MUSCULOSKELETAL: No muscle atrophy, erythema, or edema noted. Full range of motion without joint tenderness in all extremities. No tenderness to palpation. Normal gait. Strength 5/5 throughout. NEURO: Patient was alert and oriented to person place and time. Normal sensation to light and sharp touch. Deep tendon reflexes 2+ throughout. No focal neurological deficits. Course Administered Medications Metronidazole (Flagyl) 500 mg in 100 mls @ 100 mls/hr IV Q8H GEOVANNA; Protocol Stop: 09/09/23 20:59 Last Admin: 08/30/23 20:40 Dose: 100 mls/hr Documented By: ROQUE Lactated Ringer's (Lr) 1,000 mls @ 150 mls/hr IV .Q6H40M GEOVANNA Stop: 09/29/23 14:39 Last Admin: 08/30/23 18:01 Dose: 150 mls/hr Documented By: Infusion: 08/30/23 18:00 Dose: Infused Documented By: Admin: 08/30/23 16:31 Dose: 150 mls/hr Documented By: IRWIN Insulin Aspart (Insulin Aspart Per Unit Charge) 0 units SC Q6 GEOVANNA; Protocol Stop: 09/29/23 17:59 Last Admin: 08/30/23 17:56 Dose: Not Given Documented By: ANABEL Insulin Glargine (Lantus Per Unit Charge) 10 units SQ DAILY GEOVANNA; Protocol Stop: 09/29/23 15:29 Last Admin: 08/30/23 16:31 Dose: 10 units Documented By: IRWIN Co-signed By: BINH Discontinued Medications Sodium Chloride (Nss) 1,000 mls @ 999 mls/hr IV .Q1H1M STA Stop: 08/30/23 10:16 Last Infusion: 08/30/23 10:56 Dose: Infused Documented By: Admin: 08/30/23 09:49 Dose: 999 mls/hr Documented By: VASU Sodium Chloride (Nss) 1,000 mls @ 999 mls/hr IV .Q1H1M STA Stop: 08/30/23 10:22 Last Infusion: 08/30/23 10:56 Dose: Infused Documented By: Admin: 08/30/23 09:52 Dose: 999 mls/hr Documented By: VASU Ciprofloxacin (Cipro / D5w) 400 mg in 200 mls @ 100 mls/hr IV NOW STA; Protocol Stop: 08/30/23 15:00 Last Infusion: 08/30/23 16:08 Dose: Infused Documented By: Admin: 08/30/23 13:15 Dose: 100 mls/hr Documented By: VASU Metronidazole (Flagyl) 500 mg in 100 mls @ 100 mls/hr IV NOW STA; Protocol Stop: 08/30/23 14:00 Last Infusion: 08/30/23 14:11 Dose: 0 mls/hr Documented By: Admin: 08/30/23 13:25 Dose: 100 mls/hr Documented By: VASU Lactated Ringer's (Lr) 1,000 mls @ 150 mls/hr IV .Q6H40M GEOVANNA Stop: 08/30/23 20:09 Last Admin: 08/30/23 15:59 Dose: Not Given Documented By: IRWIN Ioversol (Optiray 320 500ml) 90 ml IV ONCE ONE Stop: 08/30/23 11:34 Last Admin: 08/30/23 11:33 Dose: 90 ml Documented By: ISAURA Morphine Sulfate (Morphine Sulfate 4 Mg/Ml 1 Ml Carp\Vial) 4 mg IV NOW STA Stop: 08/30/23 09:23 Last Admin: 08/30/23 09:48 Dose: 4 mg Documented By: VASU Morphine Sulfate (Morphine Sulfate 4 Mg/Ml 1 Ml Carp\Vial) 4 mg IV NOW STA Stop: 08/30/23 11:40 Last Admin: 08/30/23 11:46 Dose: 4 mg Documented By: VASU Morphine Sulfate (Morphine Sulfate 2 Mg/Ml Carp) 2 mg IV NOW STA Stop: 08/30/23 13:04 Last Admin: 08/30/23 13:14 Dose: 2 mg Documented By: VASU Morphine Sulfate (Morphine Sulfate 10 Mg/Ml Carp/Vial) 6 mg IV NOW STA Stop: 08/30/23 14:41 Last Admin: 08/30/23 15:53 Dose: 6 mg Documented By: IRWIN Morphine Sulfate (Morphine Sulfate 4 Mg/Ml 1 Ml Carp\Vial) 4 mg IV Q4H PRN PRN Reason: pain Stop: 09/13/23 17:31 Last Admin: 08/30/23 20:09 Dose: 4 mg Documented By: ROQUE Ondansetron HCl (Ondansetron Inj 2 Mg/Ml 2 Ml Vial) 4 mg IV NOW STA Stop: 08/30/23 09:23 Last Admin: 08/30/23 09:48 Dose: 4 mg Documented By: VASU Ondansetron HCl (Ondansetron Inj 2 Mg/Ml 2 Ml Vial) 4 mg IV NOW STA Stop: 08/30/23 11:40 Last Admin: 08/30/23 11:46 Dose: 4 mg Documented By: VASU Medical Decision Making Differential Diagnosis Appendicitis, ovarian cyst, ovarian torsion, ectopic , TOA, PID, infections, diverticulitis, UTI, obstruction, mesenteric ischemia, aortic pathology, inflammatory bowel disease, renal colic, PUD, pancreatitis, biliary pathology, hernia, volvulus, constipation, as well as other pathologies. Medical Records Attestation: I reviewed the patient's medical records. Home Medications Current Medication List: was personally reviewed by me Laboratory Data Attestation: I reviewed the patient's lab results. No leukocytosis, stable hemoglobin and hematocrit, glucose 421. AST 62, ALT 270, alk phos 280, lipase 907. Urine infection test negative for infection, 3+ glucose, 3+ ketones. 08/30/23 09:38 08/30/23 09:38 Lab Results 08/30/23 08/30/23 08/30/23 Range/Units 09:38 11:19 12:24 WBC 10.24 (4.8-10.8) K/ul RBC 4.26 (4.20-5.40) M/uL Hgb 12.3 (12.0-16.0) g/dl Hct 34.8 L (37.0-47.0) % MCV 81.7 (80.0-100.0) fL MCH 28.9 (25.0-34.0) pg MCHC 35.3 (32.0-36.0) g/dL RDW Std Deviation 35.3 L (36.4-46.3) fL RDW Coeff of Arnold 11.9 (11.5-14.5) % Plt Count 290 (130-400) K/uL MPV 11.0 (9.4-12.4) fL Immature Gran % (Auto) 0.3 % Neut % (Auto) 76.4 % Lymph % (Auto) 17.0 % [place] % (Auto) 5.1 % Eos % (Auto) 0.8 % Baso % (Auto) 0.4 % Neut # (Auto) 7.83 H (1.40-6.50) K/uL Lymph # (Auto) 1.74 (1.20-3.40) K/uL [place] # (Auto) 0.52 (0.11-0.59) K/uL Eos # (Auto) 0.08 (0.00-0.50) K/uL Baso # (Auto) 0.04 (0.00-0.20) K/uL Immature Gran # (Auto) 0.03 (0.01-0.20) K/uL VBG pH 7.36 (7.36-7.41) VBG pCO2 44 (38-50) mmHg VBG pO2 46 mmHg VBG HCO3 25 mmol/L VBG O2 Saturation 75.4 % VBG Base Excess -0.7 mEq/L Sodium 130 L (136-145) mmol/L Potassium 4.0 (3.5-5.1) mmol/L Chloride 94 L (98-107) mmol/L Carbon Dioxide 23 (21-32) mmol/L Anion Gap 13 H (3-11) BUN 10 (6-23) mg/dl Creatinine 0.48 L (0.6-1.2) mg/dl Est Cr Clr Drug Dosing 122.3 ml/min Est GFR ( Amer) 146.3 ml/min Est GFR (Non-Af Amer) 126.2 ml/min BUN/Creatinine Ratio 20.8 H (10-20) Glucose 421 H* (70-99(Fasting)) mg/dl Lactate 0.9 (0.4-2.0) mmol/L Calcium 8.7 (8.6-10.3) mg/dl Total Bilirubin 0.4 (0.2-1.0) mg/dl AST 62 H (13-39) U/L ALT 270 H (7-52) U/L Alkaline Phosphatase 280 H (34-104) U/L Troponin I High Sens 5.6 (0-14) pg/ml Total Protein 7.1 (6.0-8.3) gm/dl Albumin 3.4 (3.4-5.0) gm/dl Globulin 3.7 (2.5-4.0) gm/dl Albumin/Globulin Ratio 0.9 (0.9-2) Lipase 907 H (11-82) U/L HCG, Qual Negative (Negative) Urine Color Yellow Urine Appearance Cloudy A (Clear) Urine pH 7.0 (4.5-7.5) Ur Specific [place] 1.036 H (1.000-1.030) Urine Protein Trace H (Negative) Urine Glucose (UA) 3+ H (Negative) Urine Ketones 3+ H (Negative) Urine Blood Negative (Negative) Urine Nitrite Negative (Negative) Urine Bilirubin Negative (Negative) Urine Urobilinogen Negative (Negative) Ur Leukocyte Esterase Negative (Negative) Urine WBC (Auto) 5-10 H (0-5) /hpf Urine RBC (Auto) 0-4 (0-4) /hpf U Hyaline Cast (Auto) 1-5 (0-5) /lpf U Epithel Cells (Auto) >30 H (0-5) /lpf Urine Bacteria (Auto) 1+ H (Negative) Imaging Data Radiologist's Impression: Abdomen/Pelvis CT 08/30/23 09:[address] WITH IV CONTRAST CT DOSE: 556.84 mGy.cm HISTORY: abd pain hx pancreatitis TECHNIQUE: Multiaxial CT images of the abdomen and pelvis were performed following the use of intravenous contrast. A dose lowering technique was utilized adhering to the principles of ALARA. COMPARISON STUDY: Abdomen and pelvis CT 03/02/2023. FINDINGS: The lung bases are clear. No pneumoperitoneum. No pneumatosis. No acute fractures identified. The liver, gallbladder, spleen, and adrenal glands are unremarkable. The right kidney enhances normally. Focal scarring within the left kidney again noted. No hydronephrosis. The main portal vein and splenic vein are patent. Normal caliber abdominal aorta. No pelvic lymphadenopathy. Mild peripancreatic/periportal lymphadenopathy has slightly progressed. This may be reactive. Mild peripancreatic inflammatory change/edema is similar to the prior study. Scattered calcifications again noted within the pancreas. Interval placement of a main pancreatic duct stent which appears in good position. There is persistent dilatation of the main pancreatic duct measuring up to 11 mm, unchanged. No loculated peripancreatic fluid collections to suggest an abscess or pseudocyst. No evidence for pancreatic necrosis at this time. Mild thickening of the adjacent duodenum is likely reactive. Calcified uterine fibroid is again noted. There is a 3.7 cm right adnexal cyst. Trace pelvic free fluid. This is likely physiologic. There is mild bladder wall thickening, unchanged. No dilated loops of bowel to suggest an obstruction. Normal appendix. IMPRESSION: 1. No significant change in the mild acute on chronic pancreatitis. 2. Interval placement of a main pancreatic duct stent which appears in good position. There is stable dilatation of the main pancreatic duct. 3. Mild thickening of the duodenum is likely reactive to the acute pancreatitis. 4. Mild periportal/peripancreatic lymphadenopathy which has slightly progressed. This may be reactive. 5. Additional findings as described above. ACT 112: Negative or not required by law. Electronically signed by: Kadeem Graff M.D. 08/30/2023 11:54 AM ECG Data Attestation: I personally reviewed and interpreted this ECG as follows: Indication: + abdominal pain Rate (beats per minute): 82 Rhythm: + sinus rhythm Blood Pressure Blood Pressure Findings: Low blood pressure MDM Narrative The patient is a 37-year-old female with a past medical history of chronic pancreatitis with pancreatic stent placement in April 2023. She is currently scheduled for an endoscopy this week to have the pancreatic stent removed. However she began to have right upper quadrant epigastric [place] pain with nausea and vomiting. She currently reports she is unable to keep any food or fluids down. A saline lock was established, CBC, CMP, lipase, urinalysis were obtained. The patient was provided IV morphine 4 mg as well as Zofran 4 mg for pain and nausea. She was also provided with 2 L of normal saline for fluid resuscitation. CT imaging was indicated based on the patient's presentation and past medical history of chronic pancreatitis. CT imaging shows acute on chronic pancreatitis with pancreatic stent placement in correct position. Labs revealed no leukocytosis, stable hemoglobin and hematocrit, glucose 421, AST 62, ALT 270, ALK phos 280, lipase 907. Urine infection test negative for infection, 3+ glucose, 3+ ketones. EKG was interpreted by myself and shows normal sinus rhythm at a rate of 82. At this time I feel the patient is appropriate for medical admission for acute on chronic pancreatitis. She will need fluid resuscitation as well as pain control. The patient's case was discussed with Dr. Valencia who assisted with and greed with my evaluation and treatment plan. Continuous mounter sousaphones: Order was placed for continuous mounter sousaphones. Patient was placed on the mounter sousaphones. Patient was noted to be in normal sinus rhythm at an initial rate of 82 bpm. Impression & Plan Epigastric abdominal pain, Acute pancreatitis, Vomiting Discharge Plan Visit Data Chief Complaint: Vomiting Stated Complaint: VOMITING AND SIDE PAIN ED Provider: Kristian Valencia ED Midlevel Provider: Kamila Ruth Discharge Problem: Epigastric abdominal pain, Acute pancreatitis, Vomiting Patient Disposition: Admitted As Inpatient Discharge Instructions Interventions: ED Discharge Assessment Last Done: 08/30/23 14:40
[2023-08-30 10:00] LABS: Hematocrit (blood only) 34.8 % (37.0-47.0); Hemoglobin 12.3 g/dl (12.0-16.0); Mean Corpuscular Hemoglobin 28.9 pg (25.0-34.0); Mean Corpuscular Hgb Conc 35.3 g/dL (32.0-36.0); Mean Corpuscular Volume 81.7 fL (80.0-100.0); Platelet Count 290 K/uL (130-400); RDW Coefficient of Variation 11.9 % (11.5-14.5); RDW Standard Deviation 35.3 fL (36.4-46.3); Red Blood Count 4.26 M/uL (4.20-5.40); White Blood Count 10.24 K/ul (4.8-10.8)
[2023-08-30 10:20] LABS: Pregnancy Test, Serum Negative (Negative)
[2023-08-30 10:22] LABS: Basophils # (auto) 0.04 K/uL (0.00-0.20); Basophils % (auto) 0.4 %; Eosinophils # (auto) 0.08 K/uL (0.00-0.50); Eosinophils % (auto) 0.8 %; Immature Granulocytes # (auto) 0.03 K/uL (0.01-0.20); Immature Granulocytes % (auto) 0.3 %; Lymphocytes # (auto) 1.74 K/uL (1.20-3.40); Monocytes # (auto) 0.52 K/uL (0.11-0.59); Monocytes % (auto) 5.1 %; Neutrophils # (auto) 7.83 K/uL (1.40-6.50); Neutrophils % (auto) 76.4 %
[2023-08-30 10:29] LABS: Troponin I High Sensitivity 5.6 pg/ml (0-14)
[2023-08-30 10:43] LABS: Albumin Globulin Ratio 0.9 (0.9-2); Albumin Level 3.4 gm/dl (3.4-5.0); BUN Creatinine Ratio 20.8 (10-20); Bilirubin,Total 0.4 mg/dl (0.2-1.0); Calcium 8.7 mg/dl (8.6-10.3); Creatinine Clr Calc Pharmacy 122.3 ml/min; Est GFR (African American) 146.3 ml/min; Est GFR (Non-African American) 126.2 ml/min; Globulin 3.7 gm/dl (2.5-4.0); Total Protein 7.1 gm/dl (6.0-8.3)
[2023-08-30 11:31] LABS: Appearance Urine Cloudy (Clear); Bacteria Urine Automated 1+ (Negative); Bilirubin Urine Negative (Negative); Blood Urine Negative (Negative); Color Urine Yellow; Epithelial Cell Urine Auto >30 /lpf (0-5); Glucose Urine UA 3+ (Negative); Ketones Urine 3+ (Negative); Leukocyte Esterase Urine Negative (Negative); Nitrite Urine Negative (Negative); Protein Urine Trace (Negative); RBC Urine Automated 0-4 /hpf (0-4); Specific Gravity Urine 1.036 (1.000-1.030); Urobilinogen Urine Negative (Negative)
[2023-08-30] MEDS ORDERED: OPTIRAY 320 500ml IV ONE (11:33)
--- NOTE | 2023-08-30 11:56 | CT Scan Report ---
ABDOMEN AND PELVIS CT WITH IV CONTRAST CT DOSE: 556.84 mGy.cm HISTORY: abd pain hx pancreatitis TECHNIQUE: Multiaxial CT images of the abdomen and pelvis were performed following the use of intrave nous contrast. A dose lowering technique was utilized adhering to the principles of ALARA. COMPARISON STUDY: Abdomen and pelvis CT 03/02/2023. FINDINGS: The lung bases are clear. No pneumoperitoneum. No pneumatosis. No acute fractures identifie d. The liver, gallbladder, spleen, and adrenal glands are unremarkable. The right kidney enhances nor [place]. Focal scarring within the left kidney again noted. No hydronephrosis. The main portal vein and splenic vein are patent. Normal caliber abdominal aorta. No pelvic lymphadenopathy. Mild peripancrea tic/periportal lymphadenopathy has slightly progressed. This may be reactive. Mild peripancreatic inf lammatory change/edema is similar to the prior study. Scattered calcifications again noted within the pancreas. Interval placement of a main pancreatic duct stent which appears in good position. There i s persistent dilatation of the main pancreatic duct measuring up to 11 mm, unchanged. No loculated pe ripancreatic fluid collections to suggest an abscess or pseudocyst. No evidence for pancreatic necros is at this time. Mild thickening of the adjacent duodenum is likely reactive. Calcified uterine fibro id is again noted. There is a 3.7 cm right adnexal cyst. Trace pelvic free fluid. This is likely phys iologic. There is mild bladder wall thickening, unchanged. No dilated loops of bowel to suggest an ob struction. Normal appendix. IMPRESSION: 1. No significant change in the mild acute on chronic pancreatitis. 2. Interval placement of a main pancreatic duct stent which appears in good position. There is stable dilatation of the main pancreatic duct. 3. Mild thickening of the duodenum is likely reactive to the acute pancreatitis. 4. Mild periportal/peripancreatic lymphadenopathy which has slightly progressed. This may be reactive . 5. Additional findings as described above. ACT 112: Negative or not required by law. Electronically signed by: Kadeem Graff M.D. 08/30/2023 11:54 AM
--- NOTE | 2023-08-30 12:03 | Emergency Department Note ---
ED Visit Note Physician Evaluation Note: Patient was seen in conjunction with the midlevel provider. Please see the midlevel provider note for full details of the patient's visit. I have personally evaluated and examined this patient. Patient presented to the ED with abdominal pain. She does have a history of pancreatitis and previously had pancreatic duct stent placed in April 2023. Lab work shows an elevated lipase at 907, there is also transaminitis with AST of 62, ALT of 270, alk phos at 280. Bilirubin is normal. Glucose is elevated at 421 however the patient's serum bicarbonate level is 23. Patient was given IV fluids, IV morphine, IV Zofran, with good improvement in her pain. On my assessment the patient has some mild mid abdominal pain that is improved from previous but otherwise appears to be in no acute distress. CT imaging of the abdomen pelvis shows evidence of acute on chronic pancreatitis, pancreatic stent appears to be in good positioning. Given the patient's pain with finding of pancreatitis clinically and on imaging in addition to elevated lipase, will plan for admission to the hospitalist service for further management of acute on chronic pancreatitis. Patient is in agreement to the above plan. I agree with assessment and plan of REY Fuchs DO .
[2023-08-30 12:38] LABS: Base Excess VBG -0.7 mEq/L; HCO3 VBG 25 mmol/L; Oxygen Saturation VBG 75.4 %; PCO2 VBG 44 mmHg (38-50); PO2 VBG 46 mmHg; pH VBG 7.36 (7.36-7.41)
--- NOTE | 2023-08-30 12:38 | History & Physical Report ---
Date of Service August 30, 2023 Assessment & Plan (1) Acute pancreatitis: (2) DMII (diabetes mellitus, type 2): Plan This is a 37yo F with PMH of DM II, HTN, history of alcohol use disorder, pancreatitis, mood disorder and other medical problems listed below who presents with abdominal pain x 4 days. Acute on chronic pancreatitis Abdominal pain Admit to med telemetry N.p.o. IV LR at 150 cc/h Consult gastroenterology CT a/p: No significant change in the mild acute on chronic pancreatitis. 2. Interval placement of a main pancreatic duct stent which appears in good position. There is stable dilatation of the main pancreatic duct.3. Mild thickening of the duodenum is likely reactive to the acute pancreatitis.4. Mild periportal/peripancreatic lymphadenopathy which has slightly progressed. This may be reactive.5. Additional findings as described above. Bowel rest concern for underlying infection given elevated LFTs, constitutional symptoms of fever, chills and myalgias Blood and urine cultures ordered and obtained IV ciprofloxacin 40 mg every 12 hours and IV Flagyl 500 mg every 8 hours empirically for now IV morphine as needed for pain Transaminitis AST 62, ALT 270, alp 280, t bili wnl repeat and trend CT a/p negative for other biliary pathology, likely reactive from pancreatitis Uncontrolled T2DM with hyperglycemia On Lantus/NovoLog and metformin as outpatient Patient states that she doses medications based on blood sugar and does not always take them Also states that she has been without insurance unsure of compliance Lantus/NovoLog per protocol Consult glycemic pharmacy Patient received 2 L of IV fluid in ED, repeat bsg 281 a1c 8.4 03/11/23, repeat in a.m. Bipolar disorder Anxiety Prescribed Abilify injections monthly, Abilify 5mg daily, Ativan 0.5mg daily PRN, but pt states she has stopped taking all meds for past 2 months she doesn't have insurance denies depression sx,mood stable Asthma Stable, uses albuterol inh as needed, Advair rarely no acute exac DVT ppx: encourage ambulation FULL CODE PCP: Dr. Nathan Pt was seen and examined in collaboration with Dr. Nash, please see addendum A total of 81 was spent coordinating, documenting, and providing care for this patient excluding time spent in the performance of separately billed services. This included personally viewing all current laboratories and imaging studies, medication reconciliation, outpatient chart review, and discussion with specialists. History of Present Illness Chief Complaint: abdominal pain x 4 days. Primary Care Provider: Harinder Nathan DO This is a 37yo F with PMH of DM II, HTN, history of alcohol use disorder, pancreatitis, mood disorder and other medical problems listed below who presents with abdominal pain x 4 days. She complains of fever, chills, nausea, myalgias, headache, dizziness with movement, vomiting. She denies hemoptysis. She states vomiting was green. She last through up when she was in [place]. Pain mostly located epigastrum/RUQ. She feels like, "my muscles are tightening." She has hx of pancreatitis in the past. She describes it as a cramping, pain is constant but waxes and wanes in severe. Her fever was as high as 102 the past 2 days. She has had a UTI for the past 2 weeks. Those sx have resolved. Her sx at that time was vaginal itching and burning. She also had URI sx that have resolved and she states she was treated with antibiotics. She is scheduled for a stent removal on Monday. She denies any diarrhea and hasn't moved her bowels in 3 days. She denies any alcohol use. She denies any chest pain, sob, cough, hematemesis, melena, hematochezia. She is an insulin controlled diabetes. She manages with insulin and metformin at home. She hasn't been taking any of her medications at home besides insulin. Allergies Allergy/AdvReac Type Severity Reaction Status Date / Time bee venom protein (honey bee) Allergy Severe ANAPHYLAXIS Verified 05/03/23 14:03 Home Medications Medication Instructions Recorded Confirmed Type epinephrine 0.3 mg/0.3 mL 0.3 mg IM UD PRN Allergic Reaction 11/18/21 08/30/23 History injection, auto-injector fluticasone 250 mcg-salmeterol 50 1 inh inhalation BID PRN Shortness 11/18/21 08/30/23 History mcg/dose blistr powdr for Of Breath inhalation (Advair Diskus) insulin lispro 100 unit/mL See Rx Instructions .Route .COMPLEX 11/18/21 08/30/23 History subcutaneous solution Medical Marijuana 1 dose inhalation HS PRN Sleep 02/08/22 08/30/23 History pantoprazole 40 mg tablet,delayed 40 mg PO QAM 02/11/22 08/30/23 History release (Protonix) aripiprazole 400 mg intramuscular 400 mg IM MONTHLY 08/02/22 08/30/23 History suspension,extended release (Abilify Maintena) insulin glargine 100 unit/mL (3 10 unit subcut DAILY 08/06/22 08/30/23 History mL) subcutaneous pen (Lantus Solostar U-100 Insulin) aripiprazole 5 mg tablet (Abilify) 5 mg PO QAM 03/10/23 08/30/23 History cholecalciferol (vitamin D3) 50 50 mcg PO DAILY 03/10/23 08/30/23 History mcg (2,000 unit) tablet lorazepam 0.5 mg tablet 0.5 mg PO DAILY PRN Anxiety 03/10/23 08/30/23 History metformin 500 mg tablet,extended 1,000 mg PO DAILY 03/10/23 08/30/23 History release 24 hr polyethylene glycol 3350 17 17 g PO DAILY PRN Constipation 05/03/23 08/30/23 History gram/dose oral powder (Miralax) Past Med/Surg History Medical History History of prolonged Q-T interval on ECG Pancreatic stones Anxiety and depression Chronic neck pain Medical marijuana use Alcohol use disorder quit 1.5 years ago History of pancreatitis Post traumatic stress disorder (PTSD) ANGE (generalized anxiety disorder) Diabetes IDDM Scoliosis MINOR GERD (gastroesophageal reflux disease) Cardiac murmur no significant valvular disease on 08/20/2019 echo Asthma has not used inhaler for a long time Major depressive disorder (05/02/11) Surgical History History of tonsillectomy and adenoidectomy History of esophagogastroduodenoscopy (EGD) History of ERCP History of section x 2 Family History Other Adopted No family history of adverse response to anesthesia Social History Smoking Status: Never smoker Tobacco Type: E-cigarettes / Vaping Second Hand Exposure: Yes (at work); Do You Dip or Chew Tobacco: No; Preferred Language: Ukrainian 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: Effective Healthcare Project Manager Required: No Beliefs That Will Affect Care: None marital status: Single Current Living Situation: Family Current Living Situation Comment: 2 children Feels Safe at Home: Yes Assistive Devices: None Review of Systems Review of Systems: All systems reviewed & are unremarkable except as noted in HPI & below Physical Exam Physical Exam: please refer to Dr. Nash addendum for physical exam findings. Results & Data Results & Data Vital Signs (Past 12 Hours) Vital Signs Temp Pulse Pulse Resp BP BP Pulse Ox 08/30/23 11:51 72 20 95/65 L 98 08/30/23 09:41 87 20 99 08/30/23 09:39 89 08/30/23 09:10 36.7 C 93 H 19 110/73 100 O2 Del Method 08/30/23 11:51 Room Air 08/30/23 09:41 Room Air 08/30/23 09:39 08/30/23 09:10 Room Air Laboratory Results I have independently reviewed and interpreted patient's admitting labs including CBC, CMP, VBG, lactate, lipase. Diagnostic Findings Abdomen/Pelvis CT 08/30/23 09:[address] WITH IV CONTRAST CT DOSE: 556.84 mGy.cm HISTORY: abd pain hx pancreatitis TECHNIQUE: Multiaxial CT images of the abdomen and pelvis were performed following the use of intravenous contrast. A dose lowering technique was utilized adhering to the principles of ALARA. COMPARISON STUDY: Abdomen and pelvis CT 03/02/2023. FINDINGS: The lung bases are clear. No pneumoperitoneum. No pneumatosis. No acute fractures identified. The liver, gallbladder, spleen, and adrenal glands are unremarkable. The right kidney enhances normally. Focal scarring within the left kidney again noted. No hydronephrosis. The main portal vein and splenic vein are patent. Normal caliber abdominal aorta. No pelvic lymphadenopathy. Mild peripancreatic/periportal lymphadenopathy has slightly progressed. This may be reactive. Mild peripancreatic inflammatory change/edema is similar to the prior study. Scattered calcifications again noted within the pancreas. Interval placement of a main pancreatic duct stent which appears in good position. There is persistent dilatation of the main pancreatic duct measuring up to 11 mm, unchanged. No loculated peripancreatic fluid collections to suggest an abscess or pseudocyst. No evidence for pancreatic necrosis at this time. Mild thickening of the adjacent duodenum is likely reactive. Calcified uterine fibroid is again noted. There is a 3.7 cm right adnexal cyst. Trace pelvic free fluid. This is likely physiologic. There is mild bladder wall thickening, unchanged. No dilated loops of bowel to suggest an obstruction. Normal appendix. IMPRESSION: 1. No significant change in the mild acute on chronic pancreatitis. 2. Interval placement of a main pancreatic duct stent which appears in good position. There is stable dilatation of the main pancreatic duct. 3. Mild thickening of the duodenum is likely reactive to the acute pancreatitis. 4. Mild periportal/peripancreatic lymphadenopathy which has slightly progressed. This may be reactive. 5. Additional findings as described above. ACT 112: Negative or not required by law. Electronically signed by: Kadeem Graff M.D. 08/30/2023 11:54 AM Medications Administered Medication List Discontinued Medications Sodium Chloride (Nss) 1,000 mls @ 999 mls/hr IV .Q1H1M STA Stop: 08/30/23 10:16 Last Infusion: 08/30/23 10:56 Dose: Infused Documented By: Admin: 08/30/23 09:49 Dose: 999 mls/hr Documented By: VASU Sodium Chloride (Nss) 1,000 mls @ 999 mls/hr IV .Q1H1M STA Stop: 08/30/23 10:22 Last Infusion: 08/30/23 10:56 Dose: Infused Documented By: Admin: 08/30/23 09:52 Dose: 999 mls/hr Documented By: VASU Ioversol (Optiray 320 500ml) 90 ml IV ONCE ONE Stop: 08/30/23 11:34 Last Admin: 08/30/23 11:33 Dose: 90 ml Documented By: ISAURA Morphine Sulfate (Morphine Sulfate 4 Mg/Ml 1 Ml Carp\\Vial) 4 mg IV NOW STA Stop: 08/30/23 09:23 Last Admin: 08/30/23 09:48 Dose: 4 mg Documented By: VASU Morphine Sulfate (Morphine Sulfate 4 Mg/Ml 1 Ml Carp\\Vial) 4 mg IV NOW STA Stop: 08/30/23 11:40 Last Admin: 08/30/23 11:46 Dose: 4 mg Documented By: VASU Ondansetron HCl (Ondansetron Inj 2 Mg/Ml 2 Ml Vial) 4 mg IV NOW STA Stop: 08/30/23 09:23 Last Admin: 08/30/23 09:48 Dose: 4 mg Documented By: VASU Ondansetron HCl (Ondansetron Inj 2 Mg/Ml 2 Ml Vial) 4 mg IV NOW STA Stop: 08/30/23 11:40 Last Admin: 08/30/23 11:46 Dose: 4 mg Documented By: VASU ECG Rate (beats per minute): 82 Rhythm: normal sinus Additional Comments: I have independently reviewed and interpreted patient's admitting EKG which revealed: 82, nsr, normal qtc, no st t wave change. She does have chronic t wave inversion in III and AVF COVID-19 Results Results COVID-19 Adm Lab Results: RBC 4.26 M/uL (4.20-5.40) 08/30/23 WBC 10.24 K/ul (4.8-10.8) 08/30/23 Hgb 12.3 g/dl (12.0-16.0) 08/30/23 Hct 34.8 % (37.0-47.0) L 08/30/23 Plt Count 290 K/uL (130-400) 08/30/23 Neutrophils (%) (Auto) 76.4 % 08/30/23 Lymphocytes (%) (Auto) 17.0 % 08/30/23 Monocytes # (Auto) 0.52 K/uL (0.11-0.59) 08/30/23 Eosinophils # (Auto) 0.08 K/uL (0.00-0.50) 08/30/23 Immature Granulocyte % (Auto) 0.3 % 08/30/23 Neutrophils # (Auto) 7.83 K/uL (1.40-6.50) H 08/30/23 Lymphocytes # (Auto) 1.74 K/uL (1.20-3.40) 08/30/23 Monocytes # (Auto) 0.52 K/uL (0.11-0.59) 08/30/23 Eosinophils # (Auto) 0.08 K/uL (0.00-0.50) 08/30/23 Basophils # (Auto) 0.04 K/uL (0.00-0.20) 08/30/23 Immature Granulocyte # (Auto) 0.03 K/uL (0.01-0.20) 4 Na 130 mmol/L (136-145) L 08/30/23 K 4.0 mmol/L (3.5-5.1) 08/30/23 Cl 94 mmol/L (98-107) L 08/30/23 CO2 23 mmol/L (21-32) 08/30/23 Anion Gap 13 (3-11) H 08/30/23 BUN 10 mg/dl (6-23) 08/30/23 Creatinine 0.48 mg/dl (0.6-1.2) L 08/30/23 BUN/Creatinine Ratio 20.8 (10-20) H 08/30/23 Glucose Level 421 mg/dl (70-99(Fasting)) H* 08/30/23 Ca 8.7 mg/dl (8.6-10.3) 08/30/23 Total Bilirubin 0.4 mg/dl (0.2-1.0) 08/30/23 AST/SGOT 62 U/L (13-39) H 08/30/23 ALT/SGPT 270 U/L (7-52) H 08/30/23 Alkaline Phosphatase 280 U/L (34-104) H 08/30/23 Total Protein 7.1 gm/dl (6.0-8.3) 08/30/23 Albumin 3.4 gm/dl (3.4-5.0) 08/30/23 Globulin 3.7 gm/dl (2.5-4.0) 08/30/23 Albumin/Globulin Ratio 0.9 (0.9-2) 08/30/23 Code Status & VTE Plan Code Status FULL CODE VTE Prophylaxis Plan VTE Prophylaxis will be ordered: No Reason for no VTE drug order: Treatment not indicated Supervising Physician Co-Signing Physician Notes History and physical exam performed by ca 37 year old woman with h/o DM, recurrent pancreatitis who presents with upper abdominal pain for the past 4 days. Pain is severe, described as muscle tightening, generalized but worse on right side associated with fevers, chills, nausea, vomiting, myalgias. Recent UTI that was treated and reports all symptoms are resolved On exam, General: Well hydrated, no acute distress Eyes: PERRL, conjunctivae normal, not pale ENMT: External ear and nose normal, oropharynx normal Respiratory: Normal respiratory effort, no respiratory distress, lungs clear to auscultation, no crackles and no wheezes Cardiovascular: Pulse is RRR. S1 S2 Gastrointestinal (Abdomen): Abdomen is not distended, soft, +tenderness (epigastrium, RUQ), no guarding or rebound, normal bowel sounds Musculoskeletal: No cyanosis or clubbing, all extremities motor strength 5/5. No pedal edema Neurologic: Alert and oriented x 3, No focal weakness, sensation grossly intact Psychiatric: Alert and oriented x 3, euthymic affect Labs notable for elevated glucose 421, Na 130 (135 corrected for hyperglycemia), AST 62, ALT 270, ALk P 280, Lipase 907 Acute on chronic pancreatitis Reviewed CT IVF NPO for now Pain control GI consult. Patient was scheduled for pancreatic stent removal in 2 days Considering fever 102, chills, myalgias, N, vomiting, presence of stent, will cover with antibiotics for now IV cipro + flagyl Follow up infectious workup ISS Check HbA1c Provided DM education I spent a total of 40 minutes coordinating, documenting and providing care for this patient excluding time spent in performance of separately billed services
[2023-08-30] MEDS ORDERED: metroNIDAZOLE 500 MG/100 ML BAG IV STA (13:01)
[2023-08-30] MEDS ORDERED: CIPROFLOXACIN / D5W 400 MG/200 ML BAG IV STA (13:01)
[2023-08-30] MEDS ORDERED: MoRPHine SULFATE 2 MG/ML CARP IV STA (13:03)
[2023-08-30] MEDS ORDERED: LACTATED RINGER'S 1,000 ML IV SCH (13:30)
[2023-08-30] MEDS ORDERED: PHARMACY GLYCEMIC MGMT CONSULT PRN (14:40)
[2023-08-30] MEDS ORDERED: MoRPHine SULFATE 10 MG/ML CARP/VIAL IV STA (14:40)
--- NOTE | 2023-08-30 15:25 | Pharmacy Report ---
Pharmacy Glycemic Short Note 2 - Date of Service August 30, 2023 - Glycemic Short BSG Results (Last 24 hours): 08/30/23 08/30/23 09:38 13:27 Glucose 421 H* POC Glucose 281 H OUTPATIENT ANTIDIABETIC REGIMEN: * Lantus 10 units SQ Daily * NovoLog PRN * Metformin 1000mg PO Daily * A1c 8.4% 03/11/23, updated A1c ordered w/ AM Labs ASSESSMENT: * 37yo F with PMH of DM II, HTN, alcohol use disorder, pancreatitis, mood disorder, presents with abdominal pain x 4 days, acute pancreatitis, NPO and IV antibiotics. * Hyperglycemic (421mg/dl) upon arrival, non-compliance with insulin, will begin with home basal dosing, and NovoLog at this time, titrate to goal blood sugar. PLAN FOR INPATIENT GLYCEMIC CONTROL: * Hold outpatient oral diabetes medications * Basal insulin * Lantus 10 units SQ Daily * Bolus insulin * NovoLog per scale ACHS or Q6hrs while NPO * Goal Range: Low 110 mg/dL - High 140 mg/dL * Correction Factor: 45 mg/dL/unit * Nutritional / Prandial insulin per carb ratio of 1 unit per 15 grams CHO consumed
[2023-08-30] MEDS ORDERED: LANTUS PER UNIT CHARGE SQ SCH (15:30)
[2023-08-30] MEDS ORDERED: INSULIN ASPART PER UNIT CHARGE SC SCH (16:30)
[2023-08-30] MEDS: LACTATED RINGER'S 1,000 ML IV SCH ×3 (16:31→23:53)
[2023-08-30] MEDS ORDERED: MoRPHine SULFATE 4 MG/ML 1 ML CARP\\VIAL IV PRN ×2 (17:32→20:23)
[2023-08-30] MEDS: INSULIN ASPART PER UNIT CHARGE SC SCH (17:56)
[2023-08-30] MEDS: metroNIDAZOLE 500 MG/100 ML BAG IV SCH (20:40)
[2023-08-30] MEDS: MoRPHine SULFATE 4 MG/ML 1 ML CARP\\VIAL IV PRN (23:53)
[2023-08-30] MEDS: CIPROFLOXACIN / D5W 400 MG/200 ML BAG IV SCH (23:54)
[2023-08-31] MEDS: INSULIN ASPART PER UNIT CHARGE SC SCH ×4 (00:02→17:34)
[2023-08-31] MEDS: metroNIDAZOLE 500 MG/100 ML BAG IV SCH ×3 (06:00→20:30)
[2023-08-31] MEDS: MoRPHine SULFATE 4 MG/ML 1 ML CARP\\VIAL IV PRN ×5 (06:00→23:54)
[2023-08-31 06:30] LABS: Hematocrit (blood only) 29.5 % (37.0-47.0); Hemoglobin 9.9 g/dl (12.0-16.0); Mean Corpuscular Hemoglobin 28.7 pg (25.0-34.0); Mean Corpuscular Hgb Conc 33.6 g/dL (32.0-36.0); Mean Corpuscular Volume 85.5 fL (80.0-100.0); Platelet Count 230 K/uL (130-400); RDW Standard Deviation 37.1 fL (36.4-46.3); Red Blood Count 3.45 M/uL (4.20-5.40); White Blood Count 7.69 K/ul (4.8-10.8)
[2023-08-31 07:09] LABS: Alanine Aminotransferase 141 U/L (7-52); Albumin Level 2.6 gm/dl (3.4-5.0); Alkaline Phosphatase 177 U/L (34-104); Anion Gap 6 (3-11); Aspartate Aminotransferase 17 U/L (13-39); BUN Creatinine Ratio 22.9 (10-20); Bilirubin,Total 0.2 mg/dl (0.2-1.0); Blood Urea Nitrogen 8 mg/dl (6-23); Calcium 7.5 mg/dl (8.6-10.3); Carbon Dioxide 25 mmol/L (21-32); Chloride 104 mmol/L (98-107); Creatinine Clr Calc Pharmacy 167.7 ml/min; Est GFR (African American) > 150.0 ml/min; Globulin 2.7 gm/dl (2.5-4.0); Glucose 224 mg/dl (70-99(Fasting)); Lipase 670 U/L (11-82); Magnesium 1.5 mg/dl (1.7-2.4); Potassium 3.5 mmol/L (3.5-5.1); Sodium 135 mmol/L (136-145); Total Protein 5.3 gm/dl (6.0-8.3)
[2023-08-31 07:13] LABS: Basophils # (auto) 0.02 K/uL (0.00-0.20); Basophils % (auto) 0.3 %; Eosinophils # (auto) 0.17 K/uL (0.00-0.50); Eosinophils % (auto) 2.2 %; Immature Granulocytes # (auto) 0.04 K/uL (0.01-0.20); Immature Granulocytes % (auto) 0.5 %; Lymphocytes # (auto) 2.69 K/uL (1.20-3.40); Monocytes % (auto) 6.5 %; Neutrophils # (auto) 4.27 K/uL (1.40-6.50); Neutrophils % (auto) 55.5 %
[2023-08-31 07:21] LABS: Estimated Average Glucose 306 mg/dl; Hemoglobin A1C 12.3 % (4.5-5.6)
--- NOTE | 2023-08-31 07:21 | Pharmacy Report ---
Pharmacy Glycemic Short Note 2 - Date of Service August 31, 2023 - Glycemic Short BSG Results (Last 24 hours): 08/30/23 08/30/23 08/30/23 09:38 13:27 16:21 Glucose 421 H* POC Glucose 281 H 226 H 08/30/23 08/30/23 08/31/23 18:09 23:59 05:33 Glucose 224 H POC Glucose 218 H 292 H 08/31/23 05:54 Glucose POC Glucose 242 H OUTPATIENT ANTIDIABETIC REGIMEN: * Lantus 10 units SQ Daily * NovoLog PRN * Metformin 1000mg PO Daily * A1c 8.4% 03/11/23, updated A1c ordered w/ AM Labs ASSESSMENT: 08/31/23 * Patient received 17 units of insulin yesterday, 10 units basal, patient refu sed correctional insulin at 1800 check. * Blood sugars remained in high to mid 200s, fasting 242mg/dl, increase basal, tighten CF. * Patient remains NPO. 08/30/23 * 37yo F with PMH of DM II, HTN, alcohol use disorder, pancreatitis, mood disorder, presents with abdominal pain x 4 days, acute pancreatitis, NPO and IV antibiotics. * Hyperglycemic (421mg/dl) upon arrival, non-compliance with insulin, will begin with home basal dosing, and NovoLog at this time, titrate to goal blood sugar. PLAN FOR INPATIENT GLYCEMIC CONTROL: * Hold outpatient oral diabetes medications * Basal insulin -increase * Lantus 20 units SQ Daily * Bolus insulin * NovoLog per scale ACHS or Q6hrs while NPO * Goal Range: Low 110 mg/dL - High 140 mg/dL * tighten: Correction Factor: 30 mg/dL/unit * Nutritional / Prandial insulin per carb ratio of 1 unit per 15 grams CHO consumed
--- NOTE | 2023-08-31 07:46 | Hospitalist Progress Note ---
Date of Service August 31, 2023 Assessment & Plan (1) Acute pancreatitis: (2) DMII (diabetes mellitus, type 2): Plan Ms. Cerna is a 38yo F with PMH of DM II, HTN, history of alcohol use disorder, pancreatitis, mood disorder and other medical problems listed below who presents with abdominal pain x 4 days and found to have acute on chronic pancreatitis. Patient has stent in pancreatic duct placed 05/12/2023. Patient placed on cipro/flagyl 2/2 fevers and chills upon admission. No fevers noted over night and patient reports no subjective fever/chills since admission. Patient underwent ERCP 08/31 with removal of stent. New stent placement to be scheduled as OP with MRI of pancreas to be scheduled in 6 months. #Acute on chronic pancreatitis #Pancreatic duct stenosis s/p stent, removed 08/31 CT a/p: No significant change in the mild acute on chronic pancreatitis. 2. Interval placement of a main pancreatic duct stent which appears in good position. There is stable dilatation of the main pancreatic duct.3. Mild thickening of the duodenum is likely reactive to the acute pancreatitis.4. Mild periportal/peripancreatic lymphadenopathy which has slightly progressed. This may be reactive.5. Additional findings as described above. Continue monitoring on med telemetry Lipase and LFTs downtrending, continue to trend in am (lipase and CMP ordered) N.p.o., advance per GI Continue IV LR at 150 cc/h Consult gastroenterology -S/p ERCP 08/31, stent removed -Will have OP stent placement in future per GI -Will need 6 month MRI pancreas Infectious work up pending, NGTD Continue IV ciprofloxacin 40 mg every 12 hours and IV Flagyl 500 mg every 8 hours empirically for now IV morphine as needed for pain #Transaminitis *improving AST 62, ALT 270, alp 280, t bili wnl repeat and trend CT a/p negative for other biliary pathology, likely reactive from pancreatitis -Continue to monitor #Uncontrolled T2DM with hyperglycemia On Lantus/NovoLog and metformin as outpatient Patient states that she doses medications based on blood sugar and does not always take them Also states that she has been without insurance unsure of compliance Lantus/NovoLog per protocol Consult glycemic pharmacy Patient received 2 L of IV fluid in ED, repeat bsg 281 a1c 8.4 03/11/23, A1C 12.3% #Bipolar disorder #Anxiety Prescribed Abilify injections monthly, Abilify 5mg daily, Ativan 0.5mg daily PRN, but pt states she has stopped taking all meds for past 2 months she doesn't have insurance denies depression sx,mood stable #Asthma Stable, uses albuterol inh as needed, Advair rarely no acute exac DVT ppx: encourage ambulation FULL CODE PCP: Dr. Nathan Admission and Anticipated Discharge Date Admission Date: August 30, 2023 Subjective Lipase downtrending, [phone] Reports pain is present, but feeling stable--eager for discharge as today [birth year] birthday She states she wants to eat as soon as able to get home as fast as possible Denies any vomiting or acute concerns other than awaiting GI recommendations Physical Exam Constitutional: WD/WN, vitals as above Respiratory: normal respiratory effort, lungs clear to auscultation Cardiovascular: RRR, no murmur, no edema Gastrointestinal (Abdomen): epigastric tenderness Results & Data Results & Data Vital Signs (Past 12 Hours) Vital Signs Temp Pulse Pulse Resp BP Pulse Ox O2 Del Method 08/31/23 04:23 36.6 C 71 20 91/56 L 100 Room Air 08/31/23 00:18 36.8 C 70 20 94/62 L 100 Room Air 08/30/23 23:15 78 08/30/23 20:14 36.8 C 78 18 94/64 L 100 Room Air Laboratory Results Short CBC 08/31/23 Range/Units 05:33 WBC 7.69 (4.8-10.8) K/ul Hgb 9.9 L (12.0-16.0) g/dl Hct 29.5 L (37.0-47.0) % Plt Count 230 (130-400) K/uL BMP 08/31/23 05:33 Sodium 135 L Potassium 3.5 Chloride 104 Carbon Dioxide 25 BUN 8 Creatinine 0.35 L Glucose 224 H Calcium 7.5 L Liver Function 08/31/23 Range/Units 05:33 Total Bilirubin 0.2 (0.2-1.0) mg/dl AST 17 (13-39) U/L ALT 141 H (7-52) U/L Alkaline Phosphatase 177 H (34-104) U/L Albumin 2.6 L (3.4-5.0) gm/dl Medications Administered Home Medications Medication Instructions Recorded Confirmed Last Taken epinephrine 0.3 mg/0.3 mL 0.3 mg IM UD PRN Allergic Reaction 11/18/21 08/30/23 Unknown injection, auto-injector fluticasone 250 mcg-salmeterol 50 1 inh inhalation BID PRN Shortness 11/18/21 08/30/23 08/03/22 mcg/dose blistr powdr for Of Breath inhalation (Advair Diskus) insulin lispro 100 unit/mL See Rx Instructions .Route .COMPLEX 11/18/21 08/30/23 08/04/22 23:00 subcutaneous solution 40 units Medical Marijuana 1 dose inhalation HS PRN Sleep 02/08/22 08/30/23 05/11/23 22:00 pantoprazole 40 mg tablet,delayed 40 mg PO QAM 02/11/22 08/30/23 05/11/23 08:00 release (Protonix) aripiprazole 400 mg intramuscular 400 mg IM MONTHLY 08/02/22 08/30/23 03/18/23 suspension,extended release (Abilify Maintena) insulin glargine 100 unit/mL (3 10 unit subcut DAILY 08/06/22 08/30/23 05/11/23 mL) subcutaneous pen (Lantus Solostar U-100 Insulin) aripiprazole 5 mg tablet (Abilify) 5 mg PO QAM 03/10/23 08/30/23 05/11/23 08:00 cholecalciferol (vitamin D3) 50 50 mcg PO DAILY 03/10/23 08/30/23 05/10/23 mcg (2,000 unit) tablet lorazepam 0.5 mg tablet 0.5 mg PO DAILY PRN Anxiety 03/10/23 08/30/23 Unknown metformin 500 mg tablet,extended 1,000 mg PO DAILY 03/10/23 08/30/23 05/11/23 08:00 release 24 hr polyethylene glycol 3350 17 17 g PO DAILY PRN Constipation 05/03/23 08/30/23 Unknown gram/dose oral powder (Miralax) Active Medications Generic Name Dose Route Start Last Admin Trade Name Freq PRN Reason Stop Dose Admin Ciprofloxacin 400 mg in 200 mls @ 100 mls/hr 08/31/23 01:00 08/31/23 01:58 Cipro / D5w IV 09/10/23 00:59 Infused Q12H GEOVANNA Infusion Protocol Metronidazole 500 mg in 100 mls @ 100 mls/hr 08/30/23 21:00 08/31/23 12:33 Flagyl IV 09/09/23 20:59 100 mls/hr Q8H GEOVANNA Administration Protocol Lactated Ringer's 1,000 mls @ 150 mls/hr 08/30/23 14:40 08/31/23 12:34 Lr IV 09/29/23 14:39 0 mls/hr .Q6H40M GEOVANNA Infusion Magnesium Sulfate/Dextrose 1 gm in 100 mls @ 50 mls/hr 08/31/23 08:00 08/31/23 12:30 Magnesium Sulfate / D5w IV 08/31/23 13:59 50 mls/hr Q2H GEOVANNA Administration Insulin Aspart 0 units 08/30/23 18:00 08/31/23 12:41 Insulin Aspart Per Unit Charge SC 09/29/23 17:59 2 units Q6 GEOVANNA Administration Protocol Insulin Glargine 20 units 08/31/23 07:30 08/31/23 08:28 Lantus Per Unit Charge SQ 09/30/23 07:29 20 units DAILY GEOVANNA Administration Protocol Morphine Sulfate 3 mg 08/30/23 20:24 08/31/23 12:42 Morphine Sulfate 4 Mg/Ml 1 Ml Carp\Vial IV 09/13/23 17:31 3 mg Q3H PRN Administration pain
[2023-08-31] MEDS: MAGNESIUM SULFATE / D5W 1 GM/100 ML BAG IV SCH ×3 (08:28→12:30)
[2023-08-31] MEDS: LANTUS PER UNIT CHARGE SQ SCH (08:28)
[2023-08-31] MEDS: LACTATED RINGER'S 1,000 ML IV SCH ×3 (08:28→23:57)
--- NOTE | 2023-08-31 10:49 | Gastrointestinal Consultation ---
Date of Consultation August 31, 2023 Assessment & Plan (1) Acute pancreatitis: (2) Chronic pancreatitis: Plan ERCP by Dr. Nielsen this afternoon. NPO. Analgesics w Judicious use of narcotics. Further recommendation to follow ERCP. Supervising Physician Co-Signing Physician Notes I performed a history and physical examination of the patient today, including specifically on physical exam - soft abdomen. I have discussed the patient's management with the advanced practitioner. Please refer to the nurse practitioner's note for the documented findings and plan of care. ERCP History of Present Illness Reason for Consultation: Acute and chronic pancreatitis Requesting Physician: Malini Espinoza PA-C Attending Physician: Audrey Nash MD History of Present Illness Ms. Jeremias Cerna is a 38 yr old female pt of Dr. Nathan w a hx of asthma, gestational diabetes, ADHD, Bipolar depression, chronic pancreatitis who presented to the emergency department yesterday for acute on chronic upper abdomen pain of 3 days duration, with nausea and vomiting. She has not had a bowel movement for few days. She had been scheduled for ERCP for tomorrow. This will be moved to today. On arrival, lipase was 900. Transaminases also bumped. CTAP w IV on arrival w/o significant change in her mild acute on chronic pancreatitis. She is he modynamically stable. She is seen and examined while she is resting in bed. She remains in pain but is awake alert oriented and able to carry out a conversation as well as move around in bed and ambulate to the bathroom Allergies Allergy/AdvReac Type Severity Reaction Status Date / Time bee venom protein (honey bee) Allergy Severe ANAPHYLAXIS Verified 05/03/23 14:03 Home Medications Medication Instructions Recorded Confirmed Type epinephrine 0.3 mg/0.3 mL 0.3 mg IM UD PRN Allergic Reaction 11/18/21 08/30/23 History injection, auto-injector fluticasone 250 mcg-salmeterol 50 1 inh inhalation BID PRN Shortness 11/18/21 08/30/23 History mcg/dose blistr powdr for Of Breath inhalation (Advair Diskus) insulin lispro 100 unit/mL See Rx Instructions .Route .COMPLEX 11/18/21 08/30/23 History subcutaneous solution Medical Marijuana 1 dose inhalation HS PRN Sleep 02/08/22 08/30/23 History pantoprazole 40 mg tablet,delayed 40 mg PO QAM 02/11/22 08/30/23 History release (Protonix) aripiprazole 400 mg intramuscular 400 mg IM MONTHLY 08/02/22 08/30/23 History suspension,extended release (Abilify Maintena) insulin glargine 100 unit/mL (3 10 unit subcut DAILY 08/06/22 08/30/23 History mL) subcutaneous pen (Lantus Solostar U-100 Insulin) aripiprazole 5 mg tablet (Abilify) 5 mg PO QAM 03/10/23 08/30/23 History cholecalciferol (vitamin D3) 50 50 mcg PO DAILY 03/10/23 08/30/23 History mcg (2,000 unit) tablet lorazepam 0.5 mg tablet 0.5 mg PO DAILY PRN Anxiety 03/10/23 08/30/23 History metformin 500 mg tablet,extended 1,000 mg PO DAILY 03/10/23 08/30/23 History release 24 hr polyethylene glycol 3350 17 17 g PO DAILY PRN Constipation 05/03/23 08/30/23 History gram/dose oral powder (Miralax) Patient History Medical History History of prolonged Q-T interval on ECG Pancreatic stones Anxiety and depression Chronic neck pain Medical marijuana use Alcohol use disorder quit 1.5 years ago History of pancreatitis Post traumatic stress disorder (PTSD) ANGE (generalized anxiety disorder) Diabetes IDDM Scoliosis MINOR GERD (gastroesophageal reflux disease) Cardiac murmur no significant valvular disease on 08/20/2019 echo Asthma has not used inhaler for a long time Major depressive disorder (05/02/11) Surgical History History of tonsillectomy and adenoidectomy History of esophagogastroduodenoscopy (EGD) History of ERCP History of section x 2 Family History Other Adopted No family history of adverse response to anesthesia Social History Smoking Status: Former smoker Tobacco Type: E-cigarettes / Vaping Second Hand Exposure: Yes (at work); Do You Dip or Chew Tobacco: No; Hx Alcohol Use: No Hx Substance Use: No Preferred Language: Cape Verdean 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: Effective Education Officer Required: No Beliefs That Will Affect Care: None marital status: Single Current Living Situation: Alone and Family Current Living Situation Comment: 2 children Feels Safe at Home: Yes Assistive Devices: None Review of Systems Review of Systems: ROS: Gen: [place] chills and sweats yesterday, denies weakness, or weight loss Eyes: No eye redness, or pain, no recent vision changes Resp: No SOB, no cough Cardio: No palpitations/irregular beats, no chest pain GI: As per HPI, otherwise negative : Denies pain on urination Skin: No jaundice, itching or new rashes Physical Exam Constitutional: WD/WN, vitals as above Eyes: PERRL, conjunctivae normal, anicteric sclerae ENMT: external ear and nose normal, oropharynx normal Neck: trachea midline, no thyromegaly Respiratory: normal respiratory effort, lungs clear to auscultation Cardiovascular: RRR, no murmur, no edema Gastrointestinal (Abdomen): Soft, moderately tender over the entire upper abdomen worse in the epigastric area, bowel sounds are present throughout. Skin: no rashes, warm and dry Neurologic: PERRL, EOMI, accommodation nl, no face palsy, no dysarthria Psychiatric: A+Ox3, euthymic affect Lymphatic: no cervical or axillary lymphadenopathy Results & Data Vital Signs (Past 12 Hours) Vital Signs Temp Pulse Pulse Resp BP Pulse Ox O2 Del Method 08/31/23 08:08 36.6 C 78 18 93/60 L 100 Room Air 08/31/23 04:23 36.6 C 71 20 91/56 L 100 Room Air 08/31/23 00:18 36.8 C 70 20 94/62 L 100 Room Air 08/30/23 23:15 78 Laboratory Results WBC 7.6, Hb 9.9, HCT 29.5, PLT 230, NA 135, K3.5, CL 109, CO2 25, BUN 9, CR 0.3, glucose 242. T. bili 0.2, AST 17, ALT 141, alk phos 177. Lipase 607 Diagnostic Findings CTAP w IV on 08/30/22: 1. No significant change in the mild acute on chronic pancreatitis. 2. Interval placement of a main pancreatic duct stent which appears in good position. There is stable dilatation of the main pancreatic duct. 3. Mild thickening of the duodenum is likely reactive to the acute pancreatitis. 4. Mild periportal/peripancreatic lymphadenopathy which has slightly progressed. This may be reactive. 5. Additional findings as described above.
--- NOTE | 2023-08-31 10:58 | History & Physical Report ---
Date of Service August 31, 2023 Assessment & Plan (1) Encounter for pre-operative examination: Plan: ERCP Patient was explained in detail regarding risks, benefits, limitations and alternatives of the above endoscopic procedure. Risks of intravenous sedation used for procedure were also explained. Risks include, but not limited to perforation, bleeding, infection, respiratory distress, cardiac arrest and . Patient is also aware about the possibility of missed lesion. Patient's questions were answered. The patient verbalized understanding the information and agreed to undergo the procedure. Admission and Anticipated Discharge Date Admission Date: August 30, 2023 History of Present Illness Primary Care Provider: Harinder Nathan, ERCP for stent removal Allergies Allergy/AdvReac Type Severity Reaction Status Date / Time bee venom protein (honey bee) Allergy Severe ANAPHYLAXIS Verified 05/03/23 14:03 Home Medications Medication Instructions Recorded Confirmed Type epinephrine 0.3 mg/0.3 mL 0.3 mg IM UD PRN Allergic Reaction 11/18/21 08/30/23 History injection, auto-injector fluticasone 250 mcg-salmeterol 50 1 inh inhalation BID PRN Shortness 11/18/21 08/30/23 History mcg/dose blistr powdr for Of Breath inhalation (Advair Diskus) insulin lispro 100 unit/mL See Rx Instructions .Route .COMPLEX 11/18/21 08/30/23 History subcutaneous solution Medical Marijuana 1 dose inhalation HS PRN Sleep 02/08/22 08/30/23 History pantoprazole 40 mg tablet,delayed 40 mg PO QAM 02/11/22 08/30/23 History release (Protonix) aripiprazole 400 mg intramuscular 400 mg IM MONTHLY 08/02/22 08/30/23 History suspension,extended release (Abilify Maintena) insulin glargine 100 unit/mL (3 10 unit subcut DAILY 08/06/22 08/30/23 History mL) subcutaneous pen (Lantus Solostar U-100 Insulin) aripiprazole 5 mg tablet (Abilify) 5 mg PO QAM 03/10/23 08/30/23 History cholecalciferol (vitamin D3) 50 50 mcg PO DAILY 03/10/23 08/30/23 History mcg (2,000 unit) tablet lorazepam 0.5 mg tablet 0.5 mg PO DAILY PRN Anxiety 03/10/23 08/30/23 History metformin 500 mg tablet,extended 1,000 mg PO DAILY 03/10/23 08/30/23 History release 24 hr polyethylene glycol 3350 17 17 g PO DAILY PRN Constipation 05/03/23 08/30/23 History gram/dose oral powder (Miralax) Past Med/Surg History Medical History History of prolonged Q-T interval on ECG Pancreatic stones Anxiety and depression Chronic neck pain Medical marijuana use Alcohol use disorder quit 1.5 years ago History of pancreatitis Post traumatic stress disorder (PTSD) ANGE (generalized anxiety disorder) Diabetes IDDM Scoliosis MINOR GERD (gastroesophageal reflux disease) Cardiac murmur no significant valvular disease on 08/20/2019 echo Asthma has not used inhaler for a long time Major depressive disorder (05/02/11) Surgical History History of tonsillectomy and adenoidectomy History of esophagogastroduodenoscopy (EGD) History of ERCP History of section x 2 Family History Other Adopted No family history of adverse response to anesthesia Social History Smoking Status: Former smoker Tobacco Type: E-cigarettes / Vaping Second Hand Exposure: Yes (at work); Do You Dip or Chew Tobacco: No; Hx Alcohol Use: No Hx Substance Use: No Preferred Language: Occitan 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: Effective Battery Repairer Required: No Beliefs That Will Affect Care: None marital status: Single Current Living Situation: Alone and Family Current Living Situation Comment: 2 children Feels Safe at Home: Yes Assistive Devices: None Review of Systems All systems reviewed & are unremarkable except as noted in HPI & below Physical Exam Constitutional: comfortable; no acute distress Respiratory: normal respiratory effort, lungs clear to auscultation Cardiovascular: RRR, no murmur, no edema Gastrointestinal (Abdomen): normal bowel sounds, soft, nontender, no hepatosplenomegaly Results & Data Vital Signs (Past 12 Hours) Vital Signs Temp Pulse Pulse Resp BP Pulse Ox O2 Del Method 08/31/23 10:50 36.8 C 70 16 95/66 L 100 Room Air 08/31/23 08:08 36.6 C 78 18 93/60 L 100 Room Air 08/31/23 04:23 36.6 C 71 20 91/56 L 100 Room Air 08/31/23 00:18 36.8 C 70 20 94/62 L 100 Room Air 08/30/23 23:15 78 Code Status & VTE Plan VTE Prophylaxis Plan VTE Prophylaxis will be ordered: No Reason for no VTE drug order: Treatment not indicated
[2023-08-31] MEDS ORDERED: ATROPINE SULFATE 0.1 MG/ML 10ML SYR IV PRN ×2 (11:02→11:07)
[2023-08-31] MEDS ORDERED: ONDANSETRON INJ 2 MG/ML 2 ML VIAL IV PRN (11:02)
[2023-08-31] MEDS ORDERED: ePHEDrine sulfate 50 MG/ML AMP IV PRN ×2 (11:02→11:07)
[2023-08-31] MEDS ORDERED: fentaNYL citrate PF 100 MCG/2 ML VIAL IV PRN (11:02)
--- NOTE | 2023-08-31 11:02 | Anesthesiology Consultation ---
Date of Service August 31, 2023 Assessment & Plan (1) Encounter for pre-operative examination: Chart Review Chart Review: Acceptable Risk for Surgery and Patient NOT seen in Pre Admission Testing Consults Requested none History Surgery Operation Date: 08/31/23 11:30 Proposed Procedures p Endoscopic Retrograde Cholangiopancreatogram - Aster Nielsen MD Height/Weight Height: 5 ft 1.2 in Weight: 56.5 kg Allergies Allergy/AdvReac Type Severity Reaction Status Date / Time bee venom protein (honey bee) Allergy Severe ANAPHYLAXIS Verified 05/03/23 14:03 Medications Home Medications Medication Instructions Recorded Confirmed Last Taken epinephrine 0.3 mg/0.3 mL 0.3 mg IM UD PRN Allergic Reaction 11/18/21 08/30/23 Unknown injection, auto-injector fluticasone 250 mcg-salmeterol 50 1 inh inhalation BID PRN Shortness 11/18/21 08/30/23 08/03/22 mcg/dose blistr powdr for Of Breath inhalation (Advair Diskus) insulin lispro 100 unit/mL See Rx Instructions .Route .COMPLEX 11/18/21 08/30/23 08/04/22 23:00 subcutaneous solution 40 units Medical Marijuana 1 dose inhalation HS PRN Sleep 02/08/22 08/30/23 05/11/23 22:00 pantoprazole 40 mg tablet,delayed 40 mg PO QAM 02/11/22 08/30/23 05/11/23 08:00 release (Protonix) aripiprazole 400 mg intramuscular 400 mg IM MONTHLY 08/02/22 08/30/23 03/18/23 suspension,extended release (Abilify Maintena) insulin glargine 100 unit/mL (3 10 unit subcut DAILY 08/06/22 08/30/23 05/11/23 mL) subcutaneous pen (Lantus Solostar U-100 Insulin) aripiprazole 5 mg tablet (Abilify) 5 mg PO QAM 03/10/23 08/30/23 05/11/23 08:00 cholecalciferol (vitamin D3) 50 50 mcg PO DAILY 03/10/23 08/30/23 05/10/23 mcg (2,000 unit) tablet lorazepam 0.5 mg tablet 0.5 mg PO DAILY PRN Anxiety 03/10/23 08/30/23 Unknown metformin 500 mg tablet,extended 1,000 mg PO DAILY 03/10/23 08/30/23 05/11/23 08:00 release 24 hr polyethylene glycol 3350 17 17 g PO DAILY PRN Constipation 05/03/23 08/30/23 Unknown gram/dose oral powder (Miralax) Active Medications Generic Name Dose Route Start Last Admin Trade Name Freq PRN Reason Stop Dose Admin Ciprofloxacin 400 mg in 200 mls @ 100 mls/hr 08/31/23 01:00 08/31/23 01:58 Cipro / D5w IV 09/10/23 00:59 Infused Q12H GEOVANNA Infusion Protocol Metronidazole 500 mg in 100 mls @ 100 mls/hr 08/30/23 21:00 08/31/23 07:06 Flagyl IV 09/09/23 20:59 Infused Q8H GEOVANNA Infusion Protocol Lactated Ringer's 1,000 mls @ 150 mls/hr 08/30/23 14:40 08/31/23 08:28 Lr IV 09/29/23 14:39 150 mls/hr .Q6H40M GEOVANNA Administration Magnesium Sulfate/Dextrose 1 gm in 100 mls @ 50 mls/hr 08/31/23 08:00 08/31/23 09:48 Magnesium Sulfate / D5w IV 08/31/23 13:59 50 mls/hr Q2H GEOVANNA Administration Insulin Aspart 0 units 08/30/23 18:00 08/31/23 06:00 Insulin Aspart Per Unit Charge SC 09/29/23 17:59 3 units Q6 GEOVANNA Administration Protocol Insulin Glargine 20 units 08/31/23 07:30 08/31/23 08:28 Lantus Per Unit Charge SQ 09/30/23 07:29 20 units DAILY GEOVANNA Administration Protocol Morphine Sulfate 3 mg 08/30/23 20:24 08/31/23 06:00 Morphine Sulfate 4 Mg/Ml 1 Ml Carp\Vial IV 09/13/23 17:31 3 mg Q3H PRN Administration pain NPO Date Last Intake of Fluids: 08/30/23 Time Last Intake of Fluids: 08:30 Date Last Intake of Solids: 08/29/23 Past Medical History Medical History History of prolonged Q-T interval on ECG Pancreatic stones Anxiety and depression Chronic neck pain Medical marijuana use Alcohol use disorder quit 1.5 years ago History of pancreatitis Post traumatic stress disorder (PTSD) ANGE (generalized anxiety disorder) Diabetes IDDM Scoliosis MINOR GERD (gastroesophageal reflux disease) Cardiac murmur no significant valvular disease on 08/20/2019 echo Asthma has not used inhaler for a long time Major depressive disorder (05/02/11) Past Family History Family History Other Adopted No family history of adverse response to anesthesia Past Surgical History Surgical History History of tonsillectomy and adenoidectomy History of esophagogastroduodenoscopy (EGD) History of ERCP History of section x 2 Social History Smoking Status: Former smoker tobacco type: cigarettes Do You Dip or Chew Tobacco: No Hx Alcohol Use: No Alcohol type: hard liquor alcohol intake frequency: 3 or more drinks per day Hx Substance Use: No substance use type: does not use Substance Use Type Other:: medical marijuana Physical Exam Vital Signs Last Vital Signs Temp 98.2 F 08/31/23 10:50 Pulse 70 08/31/23 10:50 Resp 16 08/31/23 10:50 BP 95/66 L 08/31/23 10:50 Pulse Ox 100 08/31/23 10:50 O2 Del Method Room Air 08/31/23 10:50 Testing Laboratory Results 08/31/23 05:33 08/31/23 05:33 Hemoglobin A1c 12.3 % (4.5-5.6) H 08/31/23 05:33 Urine Color Yellow 08/30/23 11:19 Urine Appearance Cloudy (Clear) A 08/30/23 11:19 Urine pH 7.0 (4.5-7.5) 08/30/23 11:19 Ur Specific [place] 1.036 (1.000-1.030) H 08/30/23 11:19 Urine Protein Trace (Negative) H 08/30/23 11:19 Urine Glucose (UA) 3+ (Negative) H 08/30/23 11:19 Urine Ketones 3+ (Negative) H 08/30/23 11:19 Urine Nitrite Negative (Negative) 08/30/23 11:19 Ur Leukocyte Esterase Negative (Negative) 08/30/23 11:19 Urine WBC (Auto) 5-10 /hpf (0-5) H 08/30/23 11:19 Urine RBC (Auto) 0-4 /hpf (0-4) 08/30/23 11:19 U Hyaline Cast (Auto) 1-5 /lpf (0-5) 08/30/23 11:19 U Epithel Cells (Auto) >30 /lpf (0-5) H 08/30/23 11:19 Urine Bacteria (Auto) 1+ (Negative) H 08/30/23 11:19 08/30/23 11:19 Urine Culture - Final Urine,Clean Catch Three types of organisms present, all high counts probable skin natty. No further identifications or sensitivities to follow. 08/31/23 08/31/23 08/30/23 10:48 05:54 23:59 POC Glucose 156 H 242 H 292 H
--- NOTE | 2023-08-31 11:43 | Operative Report ---
Post Operative Report Pre & Post Diagnosis Operation Date: 08/31/23 11:30 Pre-Op Diagnosis: ACUTE PANCREATITIS I identified the patient and participated in the time-out.: Yes Procedure Operation Date: 08/31/23 11:30 <No data on this case meets the specified criteria> Surgeon Aster Nielsen MD Cable Rigger None Estimated Blood Loss 0 Findings See Below (PD stent removed) Specimens PD fluid for cytology Description of Procedure ERCP I attest to the content of the Intraoperative Record and any orders documented therein. Any exceptions are noted below.
--- NOTE | 2023-08-31 12:16 | GI REPORT ---
Patient Name: Jeremias Cerna Procedure Date: 08/31/2023 10:38 AM Date of : 1985 Admit Type: Inpatient Age: 38 Gender: Female Attending MD: Aster Nielsen MD, Procedure: ERCP Providers: Aster Nielsen MD Referring MD: Audrey Nash Md Indications: Pancreatic stent removal Medicines: Propofol per Anesthesia Complications: No immediate complications. Estimated Blood Loss: Estimated blood loss: none. Procedure: Pre-Anesthesia Assessment: - Prior to the procedure, a History and Physical was performed, and patient medications, allergies and sensitivities were reviewed. The patient's tolerance of previous anesthesia was reviewed. - The risks and benefits of the procedure and the sedation options and risks were discussed with the patient. All questions were answered and informed consent was obtained. - Patient identification and proposed procedure were verified prior to the procedure by the physician and the nurse. The procedure was verified in the procedure room. - Pre-procedure physical examination revealed no contraindications to sedation. After obtaining informed consent, the scope was passed under direct vision. Throughout the procedure, the patient's blood pressure, pulse, and oxygen saturations were monitored continuously. The Duodenoscope was introduced through the mouth, and advanced to the duodenum and used to inject contrast into the bile duct and ventral pancreatic duct. The ERCP was accomplished without difficulty. The patient tolerated the procedure well. Findings: A pancreatic stent was visible on the metal rolling mill operator film. The esophagus was successfully intubated under direct vision. The scope was advanced to a normal major papilla in the descending duodenum without detailed examination of the pharynx, larynx and associated structures, and upper GI tract. The upper GI tract was grossly normal. One pancreatic stent originating in the pancreatic duct was emerging from the major papilla. Inspection of the major papilla revealed that biliary and pancreatic sphincterotomies had been performed previously. The biliary sphincterotomy appeared open. The pancreatic sphincterotomy appeared open. One stent was removed from the pancreatic duct using a snare. A 0.025 inch x 270 cm angled Visiglide wire was passed into the biliary tree. The 8.5 mm balloon was passed over the guidewire and the bile duct was then deeply cannulated. Contrast was injected. I personally interpreted the pancreatic duct images. Ductal flow of contrast was adequate. Image quality was adequate. Contrast extended to the main bile duct. Opacification of the entire biliary tree was successful. The maximum diameter of the ducts was 6 mm. The biliary tree was swept with an 8.5 mm balloon starting at the bifurcation. Nothing was found. A 0.025 inch x 270 cm angled Visiglide wire was passed into the ventral pancreatic duct. The ventral pancreatic duct was then deeply cannulated with the 8.5 mm balloon. Contrast was injected. Opacification of the entire pancreatic ductal system was successful. The maximum diameter of the ducts was 10 mm mainly in the head and neck area. 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 Changes were seen in the main pancreatic duct consistent with chronic pancreatitis. Fluid aspiration for cytology was performed in the pancreatic duct in the body of the pancreas. Verification of patient identification for the specimen was done by the physician and nurse using the patient's name and date. To remove the object(s) the ventral pancreatic duct was swept with a 12 mm balloon starting at the pancreatic duct in the tail of the pancreas. Debris was swept from the duct. Impression: - One stent was removed from the pancreatic duct. - Chronic pancreatitis. - Dilated PD likely related to stenosis of the PD orifice in view of prior Ampullectomy. - The ventral pancreatic duct was swept and debris was found. Recommendation: - [facility]. - Repeat ERCP at the next available appointment to place a 8 mm x 4 cm fully covered metal stent for remodeling of the PD orifice. I will have this scheduled as OP soon as this stent is not available here. - Obtain MRI of the pancreas in 6 months for follow up. Aster Nielsen MD 08/31/2023 12:16:02 PM This report has been signed electronically. Note Initiated On: 08/31/2023 10:38 AM Number of Addenda: 0 I attest to the content of the Intraoperative Record and orders documented therein, exceptions below {[id number]}
--- NOTE | 2023-08-31 13:09 | Communication Note ---
Date of Service: August 31, 2023 We ordered the special metal stent for the patient and will be overnight delivered tomorrow hopefully. Please keep patient NPO after midnight for repeat ERCP tomorrow. If by tomorrow afternoon the stent is not delivered then please discharge her home and I will repeat ERCP and place the stent as OP in 2 weeks.
--- NOTE | 2023-08-31 13:37 | Fluoroscopy Report ---
[place] ERCP biliary ductal CLINICAL HISTORY: ERCP IN OR. Acute on chronic pancreatitis. Mid abdominal pain. COMPARISON STUDY: Abdomen and pelvis CT 08/30/2023. FLUOROSCOPY TIME: 1 minute and 22 seconds FLUOROSCOPY IMAGES: 7 Ka,r: 19.1 mGy FINDINGS: The ampulla was cannulated and contrast was injected into the main pancreatic duct. The michael n pancreatic duct is irregular with mid to distal dilatation. A balloon sweep was performed. The comm on bile duct is also cannulated and contrast was injected. IMPRESSION: Fluoroscopic assistance as above. ACT 112: Negative or not required by law. Electronically signed by: Kadeem Graff M.D. 08/31/2023 1:35 PM
[2023-08-31] MEDS: CIPROFLOXACIN / D5W 400 MG/200 ML BAG IV SCH (13:45)
[2023-08-31] MEDS ORDERED: Nursing to Pharmacy Communication SCH (16:45)
[2023-08-31] MEDS: ONDANSETRON INJ 2 MG/ML 2 ML VIAL IV PRN (19:22)
[2023-09-01] MEDS: INSULIN ASPART PER UNIT CHARGE SC SCH ×5 (00:02→20:45)
[2023-09-01] MEDS: CIPROFLOXACIN / D5W 400 MG/200 ML BAG IV SCH ×2 (01:09→14:31)
[2023-09-01] MEDS: metroNIDAZOLE 500 MG/100 ML BAG IV SCH ×3 (05:10→20:47)
[2023-09-01] MEDS: MoRPHine SULFATE 4 MG/ML 1 ML CARP\\VIAL IV PRN ×5 (05:20→20:36)
[2023-09-01 08:01] LABS: Hematocrit (blood only) 28.8 % (37.0-47.0); Hemoglobin 9.6 g/dl (12.0-16.0); Mean Corpuscular Hemoglobin 28.6 pg (25.0-34.0); Mean Corpuscular Hgb Conc 33.3 g/dL (32.0-36.0); Mean Corpuscular Volume 85.7 fL (80.0-100.0); Mean Platelet Volume 10.5 fL (9.4-12.4); Platelet Count 233 K/uL (130-400); RDW Coefficient of Variation 12.1 % (11.5-14.5); RDW Standard Deviation 38.5 fL (36.4-46.3); Red Blood Count 3.36 M/uL (4.20-5.40); White Blood Count 7.85 K/ul (4.8-10.8)
[2023-09-01 08:18] LABS: Alanine Aminotransferase 98 U/L (7-52); Albumin Level 2.7 gm/dl (3.4-5.0); Alkaline Phosphatase 156 U/L (34-104); Anion Gap 3 (3-11); Aspartate Aminotransferase 11 U/L (13-39); BUN Creatinine Ratio 13.8 (10-20); Bilirubin,Total 0.2 mg/dl (0.2-1.0); Blood Urea Nitrogen 4 mg/dl (6-23); Calcium 7.6 mg/dl (8.6-10.3); Carbon Dioxide 28 mmol/L (21-32); Chloride 107 mmol/L (98-107); Creatinine Clr Calc Pharmacy 218.9 ml/min; Est GFR (African American) > 150.0 ml/min; Est GFR (Non-African American) 147.9 ml/min; Globulin 2.6 gm/dl (2.5-4.0); Glucose 171 mg/dl (70-99(Fasting)); Lipase 290 U/L (11-82); Potassium 3.4 mmol/L (3.5-5.1); Sodium 138 mmol/L (136-145); Total Protein 5.3 gm/dl (6.0-8.3)
[2023-09-01] MEDS: POTASSIUM CHLORIDE / WTR 10 MEQ/100 ML PLCT IV SCH ×3 (09:03→13:54)
[2023-09-01] MEDS: LACTATED RINGER'S 1,000 ML IV SCH ×2 (09:03→17:58)
[2023-09-01] MEDS: LANTUS PER UNIT CHARGE SQ SCH (09:04)
--- NOTE | 2023-09-01 09:59 | Anesthesiology Consultation ---
Date of Service September 01, 2023 Assessment & Plan (1) Encounter for pre-operative examination: Chart Review Chart Review: Acceptable Risk for Surgery History Surgery Operation Date: 08/31/23 11:30 Proposed Procedures p Endoscopic Retrograde Cholangiopancreatogram - Aster Nielsen MD Operation Date: 09/01/23 12:10 Proposed Procedures p Endoscopic Retrograde Cholangiopancreatogram - Aster Nielsen MD Height/Weight Height: 5 ft 1.2 in Weight: 58.1 kg Allergies Allergy/AdvReac Type Severity Reaction Status Date / Time bee venom protein (honey bee) Allergy Severe ANAPHYLAXIS Verified 05/03/23 14:03 Medications Home Medications Medication Instructions Recorded Confirmed Last Taken epinephrine 0.3 mg/0.3 mL 0.3 mg IM UD PRN Allergic Reaction 11/18/21 08/30/23 Unknown injection, auto-injector fluticasone 250 mcg-salmeterol 50 1 inh inhalation BID PRN Shortness 11/18/21 08/30/23 08/03/22 mcg/dose blistr powdr for Of Breath inhalation (Advair Diskus) insulin lispro 100 unit/mL See Rx Instructions .Route .COMPLEX 11/18/21 08/30/23 08/04/22 23:00 subcutaneous solution 40 units Medical Marijuana 1 dose inhalation HS PRN Sleep 02/08/22 08/30/23 05/11/23 22:00 pantoprazole 40 mg tablet,delayed 40 mg PO QAM 02/11/22 08/30/23 05/11/23 08:00 release (Protonix) aripiprazole 400 mg intramuscular 400 mg IM MONTHLY 08/02/22 08/30/23 03/18/23 suspension,extended release (Abilify Maintena) insulin glargine 100 unit/mL (3 10 unit subcut DAILY 08/06/22 08/30/23 05/11/23 mL) subcutaneous pen (Lantus Solostar U-100 Insulin) aripiprazole 5 mg tablet (Abilify) 5 mg PO QAM 03/10/23 08/30/23 05/11/23 08:00 cholecalciferol (vitamin D3) 50 50 mcg PO DAILY 03/10/23 08/30/23 05/10/23 mcg (2,000 unit) tablet lorazepam 0.5 mg tablet 0.5 mg PO DAILY PRN Anxiety 03/10/23 08/30/23 Unknown metformin 500 mg tablet,extended 1,000 mg PO DAILY 03/10/23 08/30/23 05/11/23 08:00 release 24 hr polyethylene glycol 3350 17 17 g PO DAILY PRN Constipation 05/03/23 08/30/23 Unknown gram/dose oral powder (Miralax) Active Medications Generic Name Dose Route Start Last Admin Trade Name Freq PRN Reason Stop Dose Admin Ciprofloxacin 400 mg in 200 mls @ 100 mls/hr 08/31/23 01:00 09/01/23 03:09 Cipro / D5w IV 09/10/23 00:59 Infused Q12H GEOVANNA Infusion Protocol Metronidazole 500 mg in 100 mls @ 100 mls/hr 08/30/23 21:00 09/01/23 06:10 Flagyl IV 09/09/23 20:59 Infused Q8H GEOVANNA Infusion Protocol Lactated Ringer's 1,000 mls @ 150 mls/hr 08/30/23 14:40 09/01/23 09:03 Lr IV 09/29/23 14:39 150 mls/hr .Q6H40M GEOVANNA Administration Potassium Chloride 10 meq in 100 mls @ 100 mls/hr 09/01/23 08:45 09/01/23 09:03 K Fredi / Wtr IV 09/01/23 11:44 100 mls/hr Q1H GEOVANNA Administration Insulin Aspart 0 units 08/30/23 18:00 09/01/23 05:19 Insulin Aspart Per Unit Charge SC 09/29/23 17:59 1 units Q6 GEOVANNA Administration Protocol Insulin Glargine 20 units 08/31/23 07:30 09/01/23 09:04 Lantus Per Unit Charge SQ 09/30/23 07:29 20 units DAILY GEOVANNA Administration Protocol Morphine Sulfate 3 mg 08/30/23 20:24 09/01/23 09:17 Morphine Sulfate 4 Mg/Ml 1 Ml Carp\Vial IV 09/13/23 17:31 3 mg Q3H PRN Administration pain Ondansetron HCl 4 mg 08/30/23 14:40 08/31/23 19:22 Ondansetron Inj 2 Mg/Ml 2 Ml Vial IV 09/29/23 14:39 4 mg Q6H PRN Administration Nausea NPO Date Last Intake of Fluids: 08/31/23 Time Last Intake of Fluids: 18:00 Date Last Intake of Solids: 08/31/23 Time Last Intake of Solids: 20:00 Past Medical History Medical History History of prolonged Q-T interval on ECG Pancreatic stones Anxiety and depression Chronic neck pain Medical marijuana use Alcohol use disorder quit 1.5 years ago History of pancreatitis Post traumatic stress disorder (PTSD) ANGE (generalized anxiety disorder) Diabetes IDDM Scoliosis MINOR GERD (gastroesophageal reflux disease) Cardiac murmur no significant valvular disease on 08/20/2019 echo Asthma has not used inhaler for a long time Major depressive disorder (05/02/11) Past Family History Family History Other Adopted No family history of adverse response to anesthesia Past Surgical History Surgical History History of tonsillectomy and adenoidectomy History of esophagogastroduodenoscopy (EGD) History of ERCP History of section x 2 Social History Smoking Status: Former smoker tobacco type: cigarettes Do You Dip or Chew Tobacco: No Hx Alcohol Use: No Alcohol type: hard liquor alcohol intake frequency: 3 or more drinks per day Hx Substance Use: No substance use type: does not use Substance Use Type Other:: medical marijuana Physical Exam Vital Signs Last Vital Signs Temp 36.8 C 09/01/23 09:44 Pulse 70 09/01/23 09:44 Resp 20 09/01/23 09:44 BP 106/69 09/01/23 09:49 Pulse Ox 100 09/01/23 09:44 O2 Del Method Room Air 09/01/23 09:44 O2 Flow Rate 6 08/31/23 11:50 Testing Laboratory Results 09/01/23 07:36 09/01/23 07:36 Hemoglobin A1c 12.3 % (4.5-5.6) H 08/31/23 05:33 Urine Color Yellow 08/30/23 11:19 Urine Appearance Cloudy (Clear) A 08/30/23 11:19 Urine pH 7.0 (4.5-7.5) 08/30/23 11:19 Ur Specific Allgood 1.036 (1.000-1.030) H 08/30/23 11:19 Urine Protein Trace (Negative) H 08/30/23 11:19 Urine Glucose (UA) 3+ (Negative) H 08/30/23 11:19 Urine Ketones 3+ (Negative) H 08/30/23 11:19 Urine Nitrite Negative (Negative) 08/30/23 11:19 Ur Leukocyte Esterase Negative (Negative) 08/30/23 11:19 Urine WBC (Auto) 5-10 /hpf (0-5) H 08/30/23 11:19 Urine RBC (Auto) 0-4 /hpf (0-4) 08/30/23 11:19 U Hyaline Cast (Auto) 1-5 /lpf (0-5) 08/30/23 11:19 U Epithel Cells (Auto) >30 /lpf (0-5) H 08/30/23 11:19 Urine Bacteria (Auto) 1+ (Negative) H 08/30/23 11:19 08/30/23 13:55 Aerobic Blood Culture - Preliminary Blood No growth in Aerobic bottle after 24 hours. Anaerobic Blood Culture - Preliminary No growth in Anaerobic bottle after 24 hours. 08/30/23 13:46 Aerobic Blood Culture - Preliminary Blood No growth in Aerobic bottle after 24 hours. Anaerobic Blood Culture - Preliminary No growth in Anaerobic bottle after 24 hours. 08/30/23 11:19 Urine Culture - Final Urine,Clean Catch Three types of organisms present, all high counts probable skin natty. No further identifications or sensitivities to follow. 09/01/23 09/01/23 08/31/23 08:27 05:14 23:59 POC Glucose 161 H 163 H 226 H
[2023-09-01] MEDS ORDERED: ALBUTEROL 0.083% NEBU SOLN 3 ML VIAL INH PRN (10:02)
[2023-09-01] MEDS ORDERED: ATROPINE SULFATE 0.1 MG/ML 10ML SYR IV PRN (10:02)
[2023-09-01] MEDS ORDERED: fentaNYL citrate PF 100 MCG/2 ML VIAL IV PRN (10:02)
--- NOTE | 2023-09-01 10:09 | History & Physical Bridge Note ---
Date of Service September 01, 2023 History & Physical Bridge Note I have examined the patient, reviewed the History & Physical and in the interval since the performance of the History & Physical I have noted the following changes of clinical significance: no changes noted ERCP Patient was explained in detail regarding risks, benefits, limitations and alternatives of the above endoscopic procedure. Risks of intravenous sedation used for procedure were also explained. Risks include, but not limited to perforation, bleeding, infection, respiratory distress, cardiac arrest and . Patient is also aware about the possibility of missed lesion. Patient's questions were answered. The patient verbalized understanding the information and agreed to undergo the procedure.
--- NOTE | 2023-09-01 10:33 | Pharmacy Report ---
Pharmacy Glycemic Short Note 2 - Date of Service September 01, 2023 - Glycemic Short BSG Results (Last 24 hours): 08/31/23 08/31/23 08/31/23 10:48 12:01 17:09 Glucose POC Glucose 156 H 200 H 178 H 08/31/23 08/31/23 09/01/23 21:21 23:59 05:14 Glucose POC Glucose 234 H 226 H 163 H 09/01/23 09/01/23 09/01/23 07:36 08:27 09:59 Glucose 171 H POC Glucose 161 H 163 H OUTPATIENT ANTIDIABETIC REGIMEN: * Lantus 10 units SQ Daily * NovoLog PRN * Metformin 1000mg PO Daily * A1c 8.4% 03/11/23, updated A1c ordered w/ AM Labs ASSESSMENT: 09/01/23 * Patient received 31 units of insulin yesterday (20 were basal) * Fasting BSG acceptable this AM, will continue current basal regimen * Repeat ERCP today, NPO since midnight * BSGs elevated yesterday, correction factor tightened 08/31/23 * Patient received 17 units of insulin yesterday, 10 units basal, patient refused correctional insulin at 1800 check. * Blood sugars remained in high to mid 200s, fasting 242mg/dl, increase basal, tighten CF. * Patient remains NPO. 08/30/23 * 37yo F with PMH of DM II, HTN, alcohol use disorder, pancreatitis, mood disorder, presents with abdominal pain x 4 days, acute pancreatitis, NPO and IV antibiotics. * Hyperglycemic (421mg/dl) upon arrival, non-compliance with insulin, will begin with home basal dosing, and NovoLog at this time, titrate to goal blood sugar. PLAN FOR INPATIENT GLYCEMIC CONTROL: * Hold outpatient oral diabetes medications * Basal insulin * Lantus 20 units SQ Daily * Bolus insulin * NovoLog per scale ACHS or Q6hrs while NPO * Goal Range: Low 110 mg/dL - High 140 mg/dL * tighten: Correction Factor: 30 mg/dL/unit * Nutritional / Prandial insulin per carb ratio of 1 unit per 15 grams CHO consumed
--- NOTE | 2023-09-01 12:02 | Operative Report ---
Post Operative Report Pre & Post Diagnosis Operation Date: 09/01/23 12:10 Pre-Op Diagnosis: ACUTE PANCREATITIS Post-Op Diagnosis: ACUTE PANCREATITIS I identified the patient and participated in the time-out.: Yes Procedure Operation Date: 09/01/23 12:10 <No data on this case meets the specified criteria> Surgeon Aster Nielsen MD Run Boat Operator None Estimated Blood Loss 0 Findings See Below (PD stents placed) Specimens None Description of Procedure ERCP I attest to the content of the Intraoperative Record and any orders documented therein. Any exceptions are noted below.
--- NOTE | 2023-09-01 12:17 | Fluoroscopy Report ---
FL ERCP biliary ductal CLINICAL HISTORY: ERCP IN OR COMPARISON STUDY: 08/31/2023. FLUOROSCOPY TIME: 3 minutes 1 second. FLUOROSCOPY IMAGES: 6 Ka,r: 41.2 mGy FINDINGS: The ampulla was cannulated and balloon dilatation of a distal main pancreatic duct strictur e was performed. This is followed by placement of 2 main pancreatic duct stents which appear in good position. IMPRESSION: Fluoroscopic assistance as above. ACT 112: Negative or not required by law. Electronically signed by: Kadeem Graff M.D. 09/01/2023 12:16 PM
[2023-09-01] MEDS: ONDANSETRON INJ 2 MG/ML 2 ML VIAL IV PRN ×2 (12:43→20:36)
--- NOTE | 2023-09-01 13:09 | Anesthesiology Progress Note ---
Date of Service September 01, 2023 Anesthesia Post Procedure Vital Signs Vital Signs: Temp Pulse Pulse Pulse Resp BP BP 09/01/23 12:20 70 14 115/79 09/01/23 12:11 36.3 C L 82 16 107/71 09/01/23 09:49 106/69 09/01/23 09:44 36.8 C 70 20 89/60 L 09/01/23 08:01 36.6 C 76 18 97/60 L 09/01/23 05:56 75 09/01/23 04:18 36.7 C 73 20 95/60 L 09/01/23 01:41 37.1 C 82 20 93/61 L 08/31/23 21:58 75 08/31/23 20:59 37.2 C 54 L 20 92/62 L 08/31/23 16:17 36.7 C 74 16 98/66 L Pulse Ox O2 Del Method O2 Flow Rate 09/01/23 12:20 99 Room Air 09/01/23 12:11 100 Nasal Cannula 2 09/01/23 09:49 09/01/23 09:44 100 Room Air 09/01/23 08:01 98 Room Air 09/01/23 05:56 09/01/23 04:18 97 Room Air 09/01/23 01:41 99 Room Air 08/31/23 21:58 08/31/23 20:59 98 Room Air 08/31/23 16:17 98 Room Air Pain Intensity Abdomen: Pain Intensity: 8 Transfer of Care Handoff Completed per policy Notes Mental Status: alert / awake / arousable Patient Amnestic to Procedure: Yes Nausea / Vomiting: adequately controlled Pain: adequately controlled Airway Patency, RR, SpO2: stable & adequate BP & HR: stable & adequate Hydration State: stable & adequate Anesthetic Complications: no major complications apparent
--- NOTE | 2023-09-01 13:15 | GI REPORT ---
Patient Name: Jeremias Cerna Procedure Date: 09/01/2023 11:39 AM Date of : 1985 Admit Type: Inpatient Age: 38 Gender: Female Attending MD: Aster Nielsen MD, Procedure: ERCP Providers: Aster Nielsen MD Referring MD: Rosalva Gomez Md Indications: For therapy of chronic recurrent pancreatitis Medicines: Propofol per Anesthesia Complications: No immediate complications. Estimated Blood Loss: Estimated blood loss: none. Procedure: Pre-Anesthesia Assessment: - Prior to the procedure, a History and Physical was performed, and patient medications, allergies and sensitivities were reviewed. The patient's tolerance of previous anesthesia was reviewed. - The risks and benefits of the procedure and the sedation options and risks were discussed with the patient. All questions were answered and informed consent was obtained. - Patient identification and proposed procedure were verified prior to the procedure by the physician and the nurse. The procedure was verified in the procedure room. - Pre-procedure physical examination revealed no contraindications to sedation. After obtaining informed consent, the scope was passed under direct vision. Throughout the procedure, the patient's blood pressure, pulse, and oxygen saturations were monitored continuously. The Duodenoscope was introduced through the mouth, and advanced to the duodenum and used to inject contrast into the bile duct. The ERCP was accomplished without difficulty. The patient tolerated the procedure well. Findings: The auditing clerk film was normal. The esophagus was successfully intubated under direct vision. The scope was advanced to a normal major papilla in the descending duodenum without detailed examination of the pharynx, larynx and associated structures, and upper GI tract. The upper GI tract was grossly normal. A 0.025 inch x 270 cm angled Visiglide wire was passed into the ventral pancreatic duct. The ventral pancreatic duct was then deeply cannulated with the 8.5 mm balloon. Contrast was injected. I personally interpreted the pancreatic duct images. Ductal flow of contrast was adequate. Image quality was adequate. Contrast extended to the pancreatic duct. Opacification of the entire pancreatic ductal system was successful. The maximum diameter of the ducts was 10 mm. The ventral pancreatic orifice was stenotic. This appeared benign. Pancreatic duct orifice was successfully dilated with an 8 mm balloon dilator. To find object(s) the ventral pancreatic duct was swept with a 12 mm balloon starting at the pancreatic duct in the tail of the pancreas. Debris was swept from the duct. Two 10 Fr by 7 cm and 5 cm plastic biliary stents with a single external flap and a single internal flap were placed into the ventral pancreatic duct. Clear fluid flowed through the stents. The stents were in good position. Impression: - Pancreatic papillary stenosis. - Pancreatic duct orifice was successfully dilated. - The ventral pancreatic duct was swept and debris was found. - Two 10 Fr plastic biliary stents were placed into the ventral pancreatic duct. Recommendation: - [facility] care. - Repeat ERCP in 4-6 weeks to exchange stents with a fully covered metal stent for stenosis remodeling. Aster Nielsen MD 09/01/2023 1:14:44 PM This report has been signed electronically. Note Initiated On: 09/01/2023 11:39 AM Number of Addenda: 0 I attest to the content of the Intraoperative Record and orders documented therein, exceptions below {[id number]}
--- NOTE | 2023-09-01 17:04 | Hospitalist Progress Note ---
Date of Service September 01, 2023 Assessment & Plan (1) Acute pancreatitis: (2) DMII (diabetes mellitus, type 2): Plan Ms. Cerna is a 38yo F with PMH of DM II, HTN, history of alcohol use disorder, pancreatitis, mood disorder and other medical problems listed below who presents with abdominal pain x 4 days and found to have acute on chronic pancreatitis. Patient has stent in pancreatic duct placed 05/12/2023. Patient placed on cipro/flagyl 2/2 fevers and chills upon admission. No fevers noted over night and patient reports no subjective fever/chills since admission. Patient underwent ERCP 08/31 with removal of stent. New stent placement to be scheduled as OP with MRI of pancreas to be scheduled in 6 months. #Acute on chronic pancreatitis #Pancreatic duct stenosis s/p stent, removed 08/31 CT a/p: No significant change in the mild acute on chronic pancreatitis. 2. Interval placement of a main pancreatic duct stent which appears in good position. There is stable dilatation of the main pancreatic duct.3. Mild thickening of the duodenum is likely reactive to the acute pancreatitis.4. Mild periportal/peripancreatic lymphadenopathy which has slightly progressed. This may be reactive.5. Additional findings as described above. Continue monitoring on med telemetry Lipase and LFTs downtrending, continue to trend in am (lipase and CMP ordered) N.p.o., advance per GI Continue IV LR at 150 cc/h Consult gastroenterology -S/p ERCP 08/31, stent removed -s/p ERCP 09/01, two plastic stents placed in ventral pancreatic duct -Will need 6 month MRI pancreas -Repeat 4-6 weeks for metal stents Infectious work up pending, NGTD Continue IV ciprofloxacin 40 mg every 12 hours and IV Flagyl 500 mg every 8 hours empirically for now IV morphine as needed for pain #Transaminitis *improving AST 62, ALT 270, alp 280, t bili wnl repeat and trend CT a/p negative for other biliary pathology, likely reactive from pancreatitis -Continue to monitor, repeat CMP in am #Uncontrolled T2DM with hyperglycemia On Lantus/NovoLog and metformin as outpatient Patient states that she doses medications based on blood sugar and does not always take them Also states that she has been without insurance unsure of compliance Lantus/NovoLog per protocol Consult glycemic pharmacy Patient received 2 L of IV fluid in ED, repeat bsg 281 a1c 8.4 03/11/23, A1C 12.3% #Bipolar disorder #Anxiety Prescribed Abilify injections monthly, Abilify 5mg daily, Ativan 0.5mg daily PRN, but pt states she has stopped taking all meds for past 2 months she doesn't have insurance denies depression sx,mood stable #Asthma Stable, uses albuterol inh as needed, Advair rarely no acute exac DVT ppx: encourage ambulation FULL CODE PCP: Dr. Nathan Admission and Anticipated Discharge Date Admission Date: August 30, 2023 Subjective NAEO, evaluated after ERCP, reports feeling ok and tired Denies any acute concerns at this time Eager to try and get home at this time Physical Exam Constitutional: WD/WN, vitals as above sleepy, but conversational Respiratory: normal respiratory effort, lungs clear to auscultation Cardiovascular: RRR, no murmur, no edema Gastrointestinal (Abdomen): epigastric discomfort Results & Data Results & Data Vital Signs (Past 12 Hours) Vital Signs Temp Pulse Pulse Pulse Resp BP BP 09/01/23 14:04 74 09/01/23 13:08 36.5 C 73 16 132/89 09/01/23 12:20 70 14 115/79 09/01/23 12:11 36.3 C L 82 16 107/71 09/01/23 09:49 106/69 09/01/23 09:44 36.8 C 70 20 89/60 L 09/01/23 08:01 36.6 C 76 18 97/60 L 09/01/23 05:56 75 Pulse Ox O2 Del Method O2 Flow Rate 09/01/23 14:04 09/01/23 13:08 100 Room Air 09/01/23 12:20 99 Room Air 09/01/23 12:11 100 Nasal Cannula 2 09/01/23 09:49 09/01/23 09:44 100 Room Air 09/01/23 08:01 98 Room Air 09/01/23 05:56 Laboratory Results Short CBC 09/01/23 Range/Units 07:36 WBC 7.85 (4.8-10.8) K/ul Hgb 9.6 L (12.0-16.0) g/dl Hct 28.8 L (37.0-47.0) % Plt Count 233 (130-400) K/uL BMP 09/01/23 07:36 Sodium 138 Potassium 3.4 L Chloride 107 Carbon Dioxide 28 BUN 4 L Creatinine 0.29 L Glucose 171 H Calcium 7.6 L Liver Function 09/01/23 Range/Units 07:36 Total Bilirubin 0.2 (0.2-1.0) mg/dl AST 11 L (13-39) U/L ALT 98 H (7-52) U/L Alkaline Phosphatase 156 H (34-104) U/L Albumin 2.7 L (3.4-5.0) gm/dl Medications Administered Home Medications Medication Instructions Recorded Confirmed Last Taken epinephrine 0.3 mg/0.3 mL 0.3 mg IM UD PRN Allergic Reaction 11/18/21 08/30/23 Unknown injection, auto-injector fluticasone 250 mcg-salmeterol 50 1 inh inhalation BID PRN Shortness 11/18/21 08/30/23 08/03/22 mcg/dose blistr powdr for Of Breath inhalation (Advair Diskus) insulin lispro 100 unit/mL See Rx Instructions .Route .COMPLEX 11/18/21 08/30/23 08/04/22 23:00 subcutaneous solution 40 units Medical Marijuana 1 dose inhalation HS PRN Sleep 02/08/22 08/30/23 05/11/23 22:00 pantoprazole 40 mg tablet,delayed 40 mg PO QAM 02/11/22 08/30/23 05/11/23 08:00 release (Protonix) aripiprazole 400 mg intramuscular 400 mg IM MONTHLY 08/02/22 08/30/23 03/18/23 suspension,extended release (Abilify Maintena) insulin glargine 100 unit/mL (3 10 unit subcut DAILY 08/06/22 08/30/23 05/11/23 mL) subcutaneous pen (Lantus Solostar U-100 Insulin) aripiprazole 5 mg tablet (Abilify) 5 mg PO QAM 03/10/23 08/30/23 05/11/23 08:00 cholecalciferol (vitamin D3) 50 50 mcg PO DAILY 03/10/23 08/30/23 05/10/23 mcg (2,000 unit) tablet lorazepam 0.5 mg tablet 0.5 mg PO DAILY PRN Anxiety 03/10/23 08/30/23 Unknown metformin 500 mg tablet,extended 1,000 mg PO DAILY 03/10/23 08/30/23 05/11/23 08:00 release 24 hr polyethylene glycol 3350 17 17 g PO DAILY PRN Constipation 05/03/23 08/30/23 Unknown gram/dose oral powder (Miralax) Active Medications Generic Name Dose Route Start Last Admin Trade Name Freq PRN Reason Stop Dose Admin Ciprofloxacin 400 mg in 200 mls @ 100 mls/hr 08/31/23 01:00 09/01/23 16:37 Cipro / D5w IV 09/10/23 00:59 Infused Q12H GEOVANNA Infusion Protocol Metronidazole 500 mg in 100 mls @ 100 mls/hr 08/30/23 21:00 09/01/23 14:12 Flagyl IV 09/09/23 20:59 Infused Q8H GEOVANNA Infusion Protocol Lactated Ringer's 1,000 mls @ 150 mls/hr 08/30/23 14:40 09/01/23 16:37 Lr IV 09/29/23 14:39 150 mls/hr .Q6H40M GEOVANNA Infusion Insulin Glargine 20 units 08/31/23 07:30 09/01/23 09:04 Lantus Per Unit Charge SQ 09/30/23 07:29 20 units DAILY GEOVANNA Administration Protocol Morphine Sulfate 3 mg 08/30/23 20:24 09/01/23 16:47 Morphine Sulfate 4 Mg/Ml 1 Ml Carp\Vial IV 09/13/23 17:31 3 mg Q3H PRN Administration pain Ondansetron HCl 4 mg 08/30/23 14:40 09/01/23 12:43 Ondansetron Inj 2 Mg/Ml 2 Ml Vial IV 09/29/23 14:39 4 mg Q6H PRN Administration Nausea
[2023-09-01] MEDS ORDERED: PROCHLORPERAZINE 5 MG in SYRINGE 4 ML IV ONE (17:15)
--- NOTE | 2023-09-01 18:58 | Electrocardiogram Report ---
Test Reason : Blood Pressure : / mmHG Vent. Rate : 082 BPM Atrial Rate : 082 BPM P-R Int : 142 ms QRS Dur : 068 ms QT Int : 366 ms P-R-T Axes : 068 026 -10 degrees QTc Int : 427 ms Normal sinus rhythm Nonspecific T wave abnormality Abnormal ECG When compared with ECG of 11-MAR-2023 07:19, No significant change was found Confirmed by Oscar Barraza ([id number]) on 09/01/2023 6:58:20 PM Referred By: Confirmed By:Oscar Barraza
[2023-09-02] MEDS: MoRPHine SULFATE 4 MG/ML 1 ML CARP\\VIAL IV PRN ×5 (00:16→15:40)
[2023-09-02] MEDS ORDERED: PROCHLORPERAZINE 5 MG in SYRINGE 4 ML IV ONE (00:30)
[2023-09-02] MEDS: CIPROFLOXACIN / D5W 400 MG/200 ML BAG IV SCH ×2 (00:45→12:24)
[2023-09-02] MEDS: LACTATED RINGER'S 1,000 ML IV SCH ×3 (02:56→08:50)
[2023-09-02] MEDS: ONDANSETRON INJ 2 MG/ML 2 ML VIAL IV PRN ×2 (05:07→12:18)
[2023-09-02] MEDS: metroNIDAZOLE 500 MG/100 ML BAG IV SCH ×2 (05:08→12:25)
[2023-09-02] MEDS ORDERED: ARIPiprazole 400 MG PRE-FILLED SYRINGE IM SCH (08:00)
[2023-09-02] MEDS ORDERED: ARIPiprazole 400 MG PRE-FILLED SYRINGE IM ONE (08:00)
[2023-09-02] MEDS: LANTUS PER UNIT CHARGE SQ SCH (08:49)
[2023-09-02] MEDS: INSULIN ASPART PER UNIT CHARGE SC SCH ×2 (09:01→12:48)
[2023-09-02 09:47] LABS: Albumin Level 2.9 gm/dl (3.4-5.0); Anion Gap 11 (3-11); Bilirubin,Total 0.3 mg/dl (0.2-1.0); Calcium 8.2 mg/dl (8.6-10.3); Carbon Dioxide 21 mmol/L (21-32); Chloride 105 mmol/L (98-107); Magnesium 1.3 mg/dl (1.7-2.4); Potassium 3.6 mmol/L (3.5-5.1); Sodium 137 mmol/L (136-145)
[2023-09-02 09:53] LABS: Alanine Aminotransferase 74 U/L (7-52); Albumin Globulin Ratio 1.1 (0.9-2); Alkaline Phosphatase 169 U/L (34-104); Aspartate Aminotransferase 12 U/L (13-39); BUN Creatinine Ratio 11.5 (10-20); Blood Urea Nitrogen 3 mg/dl (6-23); Creatinine Clr Calc Pharmacy 248.2 ml/min; Est GFR (African American) > 150.0 ml/min; Est GFR (Non-African American) > 150.0 ml/min; Globulin 2.6 gm/dl (2.5-4.0); Glucose 112 mg/dl (70-99(Fasting)); Lipase 101 U/L (11-82); Phosphorus 3.3 mg/dl (2.5-4.9); Total Protein 5.5 gm/dl (6.0-8.3)
[2023-09-02 10:23] LABS: Hematocrit (blood only) 29.8 % (37.0-47.0); Hemoglobin 10.3 g/dl (12.0-16.0); Mean Corpuscular Hemoglobin 28.9 pg (25.0-34.0); Mean Corpuscular Hgb Conc 34.6 g/dL (32.0-36.0); Mean Corpuscular Volume 83.7 fL (80.0-100.0); Mean Platelet Volume 10.6 fL (9.4-12.4); Platelet Count 276 K/uL (130-400); RDW Coefficient of Variation 12.1 % (11.5-14.5); RDW Standard Deviation 37.2 fL (36.4-46.3); Red Blood Count 3.56 M/uL (4.20-5.40); White Blood Count 7.97 K/ul (4.8-10.8)
[2023-09-02] MEDS ORDERED: MAGNESIUM SULFATE / D5W 1 GM/100 ML BAG IV ONE (11:48)
--- NOTE | 2023-09-02 17:59 | Discharge Summary ---
Discharge Summary Date of Service September 02, 2023 Notes For Next Care Provider Repeat OP CBC and CMP, Mag for OP lytes monitoring and liver function Patient with insurance lapse. Provided Goodrx coupon as well as NPH insulin for affordable option to cover diabetes until insurance reinstated. Able to administer Abilify depot prior to dc. Medication Changes From Visit Received Depot Abilify 09/01 prior to discharge Magnesium 200mg BID started Novolin 10 U BID sent to [facility] for affordable insulin regimen, Admission HPI Per Admitting Provider ERCP for stent removal Admission Exam Per Admitting Provider On exam, General: Well hydrated, no acute distress Eyes: PERRL, conjunctivae normal, not pale ENMT: External ear and nose normal, oropharynx normal Respiratory: Normal respiratory effort, no respiratory distress, lungs clear to auscultation, no crackles and no wheezes Cardiovascular: Pulse is RRR. S1 S2 Gastrointestinal (Abdomen): Abdomen is not distended, soft, +tenderness (epigastrium, RUQ), no guarding or rebound, normal bowel sounds Musculoskeletal: No cyanosis or clubbing, all extremities motor strength 5/5. No pedal edema Neurologic: Alert and oriented x 3, No focal weakness, sensation grossly intact Psychiatric: Alert and oriented x 3, euthymic affect Principal Dx & Hospital Course #1 = Principal Diagnosis (1) Acute pancreatitis: (2) DMII (diabetes mellitus, type 2): Plan Ms. Cerna is a 38yo F with PMH of DM II, HTN, history of alcohol use disorder, pancreatitis, mood disorder and other medical problems listed below who presents with abdominal pain x 4 days and found to have acute on chronic pancreatitis. Patient has stent in pancreatic duct placed 05/12/2023. Patient placed on cipro/flagyl 2/2 fevers and chills upon admission. No fevers noted over night and patient reports no subjective fever/chills since admission. Patient underwent ERCP 08/31 with removal of stent. On 09/01ERCP was repeated with placement of plastic stents. Patient's symptoms #Acute on chronic pancreatitis #Pancreatic duct stenosis s/p stent, removed 08/31 CT a/p: No significant change in the mild acute on chronic pancreatitis. 2. Interval placement of a main pancreatic duct stent which appears in good position. There is stable dilatation of the main pancreatic duct.3. Mild thickening of the duodenum is likely reactive to the acute pancreatitis.4. Mild periportal/peripancreatic lymphadenopathy which has slightly progressed. This may be reactive.5. Additional findings as described above. Lipase and LFTs downtrending Consult gastroenterology -S/p ERCP 08/31, stent removed -s/p ERCP 09/01, two plastic stents placed in ventral pancreatic duct -Will need 6 month MRI pancreas -Repeat 4-6 weeks for metal stents No further antibiotics required at this time #Transaminitis *improving AST 62, ALT 270, alp 280, t bili wnl repeat and trend CT a/p negative for other biliary pathology, likely reactive from pancreatitis Follow up GI #Uncontrolled T2DM with hyperglycemia On Lantus/NovoLog and metformin as outpatient a1c 8.4 03/11/23, A1C 12.3% Novolin prescribed 10 U BID given inconsistent PO intake for a bridge of insulin costwise given lapse in insurance #Chronic hypomagnesemia -Prescribed PO magnesium 200mg BID #Bipolar disorder #Anxiety Prescribed Abilify injections monthly, Abilify 5mg daily, Ativan 0.5mg daily PRN, but pt states she has stopped taking all meds for past 2 months Abilify depot 400mg 09/02 Encouraged to follow up promptly #Asthma Stable, uses albuterol inh as needed, Advair rarely no acute exac On day of discharge, patient was tolerating diet and denied any acute concerns. Patient reports eagerness to get home. Coordinated insulin regimen with good rx and case management assisting with insurance coverage. Discharge Exam Constitutional WD/WN, vitals as above Respiratory normal respiratory effort, lungs clear to auscultation Cardiovascular RRR, no murmur, no edema Updated Medication List Medication Instructions Recorded Confirmed Type epinephrine 0.3 mg/0.3 mL 0.3 mg IM UD PRN Allergic Reaction 11/18/21 08/30/23 History injection, auto-injector fluticasone 250 mcg-salmeterol 50 1 inh inhalation BID PRN Shortness 11/18/21 08/30/23 History mcg/dose blistr powdr for Of Breath inhalation (Advair Diskus) Medical Marijuana 1 dose inhalation HS PRN Sleep 02/08/22 08/30/23 History aripiprazole 400 mg intramuscular 400 mg IM MONTHLY 08/02/22 08/30/23 History suspension,extended release (Abilify Maintena) aripiprazole 5 mg tablet (Abilify) 5 mg PO QAM 03/10/23 08/30/23 History cholecalciferol (vitamin D3) 50 50 mcg PO DAILY 03/10/23 08/30/23 History mcg (2,000 unit) tablet lorazepam 0.5 mg tablet 0.5 mg PO DAILY PRN Anxiety 03/10/23 08/30/23 History metformin 500 mg tablet,extended 1,000 mg PO DAILY 03/10/23 08/30/23 History release 24 hr polyethylene glycol 3350 17 17 g PO DAILY PRN Constipation 05/03/23 08/30/23 History gram/dose oral powder (Miralax) alcohol swabs (Alcohol Prep Pads) 1 pad topical BID #200 ea 09/02/23 Rx insulin NPH-regular 70-30 U-100 10 unit (0.1 mL) subcut BID #15 mL 09/02/23 Rx insulin 100 unit/mL subcutaneous pen (Novolin 70-30 FlexPen U-100 Insulin) magnesium 200 mg tablet 200 mg PO BID #60 tabs 09/02/23 Rx oxycodone 5 mg tablet 5 mg PO Q12H #10 tabs 09/02/23 Rx pantoprazole 40 mg tablet,delayed 40 mg PO QAM #30 tabs 09/02/23 Rx release (Protonix) Hospital Stay Data Consultations 08/30/23 12:11 ED Decision to Admit Stat 08/30/23 12:44 Consult Gastroenterology Routine Procedures Performed Operation Date: 09/01/23 12:10 Actual Procedures p Endoscopic Retrograde Cholangiopancreato - Aster Nielsen MD Diagnostic Imagining Performed 08/30/23 09:24 CT abd pelvis IV con only Stat 08/31/23 [place] ERCP biliary ductal Routine 09/01/23 12:10 [place] ERCP biliary ductal Routine Pending Results Patient Have Any Pending Studies at Discharge: No Discharge Instructions Given to Patient (Per Discharging Provider) You were admitted for concerns of abdominal pain and found to have acute on chronic pancreatitis. You were given IV fluids and pain managed. You were taken for stent removal on 08/31 and subsequent placement of stents into your pancreatic duct on 09/01. You will need to follow up for repeat ERCP in 4-6 weeks for a stent exchange. You received your Abilify depot injection on 09/01. A prescription for regular insulin was sent to your [facility] on [facility] and in the flexpen style--please inject 10U two times a day. Total Time Total Time Spent Total Time Spent (In Minutes): 65
== END 2023-09-02 16:36 | disposition home or self-care (01) | DRG 440 ==
LOC: ED 09:00 → EDINP 12:36 → SUATTDRO 12:36 → EDINP 14:40 → 2N 17:40

== ENCOUNTER 2024-02-28 15:57 | Inpatient (IN) ==
[2024-02-28] MEDS: SODIUM CHLORIDE 0.9% 1,000 ML IV STA (16:41)
[2024-02-28 16:56] LABS: Basophils # (auto) 0.03 K/uL (0.00-0.20); Basophils % (auto) 0.2 %; Hematocrit (blood only) 44.1 % (37.0-47.0); Hemoglobin 15.7 g/dl (12.0-16.0); Immature Granulocytes # (auto) 0.03 K/uL (0.01-0.20); Immature Granulocytes % (auto) 0.2 %; Lymphocytes # (auto) 1.12 K/uL (1.20-3.40); Lymphocytes % (auto) 7.5 %; Mean Corpuscular Hgb Conc 35.6 g/dL (32.0-36.0); Mean Corpuscular Volume 81.4 fL (80.0-100.0); Mean Platelet Volume 9.4 fL (9.4-12.4); Monocytes # (auto) 0.48 K/uL (0.11-0.59); Monocytes % (auto) 3.2 %; Neutrophils # (auto) 13.22 K/uL (1.40-6.50); Neutrophils % (auto) 88.9 %; Platelet Count 398 K/uL (130-400); RDW Coefficient of Variation 13.2 % (11.5-14.5); RDW Standard Deviation 38.8 fL (36.4-46.3); Red Blood Count 5.42 M/uL (4.20-5.40); White Blood Count 14.88 K/ul (4.8-10.8)
[2024-02-28 17:12] LABS: Pregnancy Test, Serum Negative (Negative)
[2024-02-28] MEDS: ONDANSETRON INJ 2 MG/ML 2 ML VIAL IV STA ×2 (17:13→20:07)
[2024-02-28 17:14] LABS: Albumin Level 4.2 gm/dl (3.4-5.0); BUN Creatinine Ratio 15.8 (10-20); Bilirubin,Total 0.5 mg/dl (0.2-1.0); Calcium 9.1 mg/dl (8.6-10.3); Est GFR (African American) 137.3 ml/min; Est GFR (Non-African American) 118.4 ml/min; Globulin 4.3 gm/dl (2.5-4.0); Potassium 3.4 mmol/L (3.5-5.1); Total Protein 8.5 gm/dl (6.0-8.3)
[2024-02-28] MEDS: HYDROmorphone INJ 0.5 MG/0.5 ML SYR ONE (17:59)
--- NOTE | 2024-02-28 18:35 | Emergency Department Note ---
Impression & Plan Pancreatitis, Alcohol use disorder, Presence of pancreatic duct stent ED Provider Note NAME: JULIA WEBB AGE: 38 SEX: F : 1985 ARRIVES VIA: Walk-In INFORMANT: Patient, ED PROVIDER(S): Quintin Foster MD CHIEF COMPLAINT: Abdominal pain HPI: This is a 38-year-old female senting for abdominal pain. Patient notes a history of pancreatitis. She began drinking alcohol a few nights ago. She is having nausea/vomiting since February 04. She notes that this worsened with worsening abdominal pain when she is to begin drinking. She notes pain in her belly from left upper quadrant and right upper quadrant and epigastric region. She has been vomiting profusely. She states she attempted drink water today but was able to keep much down. She reports no fevers, chills,diarrhea. No current chest pain or shortness of breath. ROS: See above HPI for pertinent positives & negatives. A total of 10 systems reviewed and were otherwise negative. PHYSICAL EXAMINATION: General: resting comfortably in no acute distress Head: Normocephalic and atraumatic Eyes: Normal inspection, extraocular muscles intact Ear, nose, throat: Normal external exam Neck: Normal range of motion Respiratory: lungs clear to auscultation bilaterally Cardiovascular: Regular rate/rhythm, no murmur GI: Epigastric tenderness with voluntary guarding, no rebound, Extremities: nontender, moves all extremities Neuro: The patient awake and alert, appropriately conversive, no focal deficits, symmetric faces Skin: Warm, dry, and intact MEDICAL DECISION MAKING: This is a 38-year-old female senting for abdominal pain. Will do screening workup with CBC, CMP, lipase. -Patient is tachycardic at this time, will give fluid resuscitation and pain control. Consider alcohol withdrawal however patient denies being in alcohol withdrawal at this time. -Patient being hypoxic after opioid medication was given. Will continue to monitor, she is awake and alert otherwise. -Leukocytosis noted to 14.88. Otherwise electrolytes though hypochloremia. Anion gap of over 27. Creatinine 0.57. Glucose 309. Slight transaminitis is noted without bilirubin elevation. Lipase over 1000 at this time. This appears consistent with pancreatitis. -After discussion with hospital service, they request CT Abdo/pelvis before they will except the patient to their service. -CT imaging reveals signs of pancreatitis, pancreatic duct dilation is decreased from previous with gas. Discussed this finding with hospital service who sent the patient to their service at this time. -Discussed care with Dr. Ibanez. -Patient given multiple doses of narcotic medications for pain as well as fluid resuscitation. Differential diagnosis: Pancreatitis, SBO, cholecystitis, choledocholithiasis, cholangitis, diverticulitis ER treatment provided: See below Diagnostics interpreted by me: ECG: ECG independently interpreted by me with sinus tachycardia, rate of 112, normal axis, normal [place], normal QRS, normal QTc, no ST segment elevations consistent with STEMI criteria Cardiac Monitoring: An order was placed for continuous cardiac monitoring. The monitor shows a rate of 105 with sinus tachycardia rhythm. Laboratory studies: As stated above and show below. Imaging studies: See below. Past Med/Surg History Problem List (Updated 10/03/23 @ 00:09 by Background Daemon) Alcohol use disorder (Acute) Pancreatitis (Acute) Hypomagnesemia Hypokalemia (Acute) Hyponatremia HTN (hypertension) no meds DMII (diabetes mellitus, type 2) Gestational diabetes History of tonsillectomy History of adenoidectomy Anxiety H/O Depression H/O Presence of pancreatic duct stent (Acute) Chronic pancreatitis Acute on chronic pancreatitis 08/30/23- admitted to [facility] Bipolar disorder Alcohol use disorder quit 1.5 years ago ANGE (generalized anxiety disorder) Asthma has not used inhaler for a long time Cardiac murmur no significant valvular disease on 08/20/2019 echo GERD (gastroesophageal reflux disease) Scoliosis MINOR History of section x 2 Medical History (Updated 03/04/24 @ 15:11 by Quintin Foster MD) Vomiting Acute pancreatitis Epigastric abdominal pain Encounter for pre-operative examination History of prolonged Q-T interval on ECG Pancreatic stones Chronic neck pain Medical marijuana use Post traumatic stress disorder (PTSD) Diabetes IDDM Hgb A1C 12.3 in 08/2023 Surgical History (Updated 10/03/23 @ 00:09 by Background Damarlenion) History of tonsillectomy and adenoidectomy History of esophagogastroduodenoscopy (EGD) History of ERCP Family History Other Adopted No family history of adverse response to anesthesia Social History Smoking Status: Former smoker Tobacco Type: E-cigarettes / Vaping Second Hand Exposure: Yes (at work); Do You Dip or Chew Tobacco: No; Hx Alcohol Use: Yes Alcohol type: wine Hx Substance Use: Yes Prescribed Medications: Marijuana Substance Use Type Other:: medical marijuana Preferred Language: Divehi 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: Effective Equipment Operator/Laborer/Supervisor Required: No Beliefs That Will Affect Care: None marital status: Single Current Living Situation: Family Current Living Situation Comment: family Feels Safe at Home: Yes Assistive Devices: None Allergies Allergies Allergy/AdvReac Type Severity Reaction Status Date / Time bee venom protein (honey bee) Allergy Severe ANAPHYLAXIS Verified 02/28/24 19:55 Home Meds Home Medications Medication Instructions Recorded Confirmed epinephrine 0.3 mg/0.3 mL 0.3 mg IM UD PRN Allergic Reaction 11/18/21 02/28/24 injection, auto-injector Medical Marijuana 1 dose inhalation HS PRN Sleep 02/08/22 02/28/24 Results & Data (ED) Vital Signs Vital Signs - 24 hr 02/28/24 16:10 02/28/24 16:28 02/28/24 16:47 Temperature 36.4 C L Temperature Source Temporal Artery Scan Pulse Rate 139 H 137 H 111 H Pulse Rate [Apical] Pulse Rhythm Regular Pulse Rhythm [Apical] Pulse Strength [Apical] Respiratory Rate 18 20 Respiratory Effort / Characteristics Non-Labored Spontaneous Respiratory Depth Normal Respiratory Pattern Blood Pressure 119/100 Blood Pressure Mean 106 Pulse Oximetry 96 97 Oxygen Delivery Method Room Air Room Air Sepsis Recent Fever Within 48 Hours No Sepsis New/Unexplained Change in Mental Status No Sepsis Action Taken by Nursing No Action Required 02/28/24 17:59 Temperature Temperature Source Pulse Rate Pulse Rate [Apical] 112 H Pulse Rhythm Pulse Rhythm [Apical] Regular Pulse Strength [Apical] Normal Respiratory Rate 16 Respiratory Effort / Characteristics Non-Labored Spontaneous Respiratory Depth Normal Respiratory Pattern Regular Blood Pressure Blood Pressure Mean Pulse Oximetry 92 Oxygen Delivery Method Room Air Sepsis Recent Fever Within 48 Hours Sepsis New/Unexplained Change in Mental Status Sepsis Action Taken by Nursing Laboratory Data 03/03/24 06:11 03/04/24 06:03 Lab Results 02/28/24 02/28/24 Range/Units 16:35 19:47 WBC 14.88 H (4.8-10.8) K/ul RBC 5.42 H (4.20-5.40) M/uL Hgb 15.7 (12.0-16.0) g/dl Hct 44.1 (37.0-47.0) % MCV 81.4 (80.0-100.0) fL MCH 29.0 (25.0-34.0) pg MCHC 35.6 (32.0-36.0) g/dL RDW Std Deviation 38.8 (36.4-46.3) fL RDW Coeff of Arnold 13.2 (11.5-14.5) % Plt Count 398 (130-400) K/uL MPV 9.4 (9.4-12.4) fL Immature Gran % (Auto) 0.2 % Neut % (Auto) 88.9 % Lymph % (Auto) 7.5 % [place] % (Auto) 3.2 % Eos % (Auto) 0.0 % Baso % (Auto) 0.2 % Neut # (Auto) 13.22 H (1.40-6.50) K/uL Lymph # (Auto) 1.12 L (1.20-3.40) K/uL [place] # (Auto) 0.48 (0.11-0.59) K/uL Eos # (Auto) 0.00 (0.00-0.50) K/uL Baso # (Auto) 0.03 (0.00-0.20) K/uL Immature Gran # (Auto) 0.03 (0.01-0.20) K/uL Sodium 135 L (136-145) mmol/L Potassium 3.4 L (3.5-5.1) mmol/L Chloride 83 L (98-107) mmol/L Carbon Dioxide 25 (21-32) mmol/L Anion Gap 27 H (3-11) BUN 9 (6-23) mg/dl Creatinine 0.57 L (0.6-1.2) mg/dl Est Cr Clr Drug Dosing 102.0 ml/min Est GFR ( Amer) 137.3 ml/min Est GFR (Non-Af Amer) 118.4 ml/min BUN/Creatinine Ratio 15.8 (10-20) Glucose 309 H* (70-99(Fasting)) mg/dl Calcium 9.1 (8.6-10.3) mg/dl Total Bilirubin 0.5 (0.2-1.0) mg/dl AST 65 H (13-39) U/L ALT 58 H (7-52) U/L Alkaline Phosphatase 77 (34-104) U/L Total Protein 8.5 H (6.0-8.3) gm/dl Albumin 4.2 (3.4-5.0) gm/dl Globulin 4.3 H (2.5-4.0) gm/dl Albumin/Globulin Ratio 1.0 (0.9-2) Lipase 1027 H (11-82) U/L HCG, Qual Negative (Negative) Urine Color Yellow Urine Appearance Clear (Clear) Urine pH 5.5 (4.5-7.5) Ur Specific [place] > 1.045 H (1.000-1.030) Urine Protein 3+ H (Negative) Urine Glucose (UA) 2+ H (Negative) Urine Ketones 3+ H (Negative) Urine Blood 2+ H (Negative) Urine Nitrite Negative (Negative) Urine Bilirubin Negative (Negative) Urine Urobilinogen Negative (Negative) Ur Leukocyte Esterase Negative (Negative) Urine WBC (Auto) 0-5 (0-5) /hpf Urine RBC (Auto) 0-2 (0-2) /hpf U Hyaline Cast (Auto) 0-2 (0-2) /lpf U Epithel Cells (Auto) 3-5 H (0-2) /hpf Urine Bacteria (Auto) 1+ H (None Seen) Administered Medications Acetaminophen (Acetaminophen 325 Mg Tab) 650 mg PO Q4H PRN PRN Reason: Pain or Fever Stop: 03/30/24 19:45 Last Admin: 03/04/24 02:54 Dose: 650 mg Documented By: LISA Ciprofloxacin/Dexamethasone (Cipro 0.3%/Dexamethasone 0.1% Otic Susp 7.5ml) 4 drops OTL BID GEOVANNA Stop: 03/30/24 20:59 Last Admin: 03/04/24 09:02 Dose: 4 drops Documented By: Admin: 03/03/24 21:02 Dose: 4 drops Documented By: Admin: 03/03/24 08:13 Dose: 4 drops Documented By: Admin: 03/02/24 21:54 Dose: 4 drops Documented By: Admin: 03/02/24 08:18 Dose: 4 drops Documented By: Admin: 03/01/24 22:06 Dose: 4 drops Documented By: Admin: 03/01/24 15:18 Dose: Not Given Documented By: Admin: 02/29/24 19:35 Dose: 4 drops Documented By: MORE Enoxaparin Sodium (Enoxaparin Inj 40 Mg/0.4 Ml Syr) 40 mg SQ Q24H GEOVANNA Stop: 03/30/24 08:59 Last Admin: 03/04/24 09:03 Dose: Not Given Documented By: Admin: 03/03/24 08:24 Dose: Not Given Documented By: Admin: 03/02/24 08:18 Dose: 40 mg Documented By: Admin: 03/01/24 15:18 Dose: Not Given Documented By: Admin: 02/29/24 08:37 Dose: Not Given Documented By: PRINCESS Famotidine (Famotidine 20 Mg Tab) 20 mg PO BID GEOVANNA; Protocol Stop: 04/02/24 20:59 Last Admin: 03/04/24 09:03 Dose: 20 mg Documented By: Admin: 03/03/24 21:02 Dose: 20 mg Documented By: LISA Fluticasone Propionate (Fluticasone Propionate Na Spr 16 Gm Btl) 1 sprays NA DAILY GEOVANNA Stop: 03/31/24 08:59 Last Admin: 03/04/24 09:04 Dose: 1 sprays Documented By: Admin: 03/03/24 08:14 Dose: 1 sprays Documented By: Admin: 03/02/24 08:18 Dose: 1 sprays Documented By: Admin: 03/01/24 15:18 Dose: Not Given Documented By: HARMAN Guaifenesin (Guaifenesin 600 Mg Tabcr) 600 mg PO Q12 GEOVANNA Stop: 03/30/24 20:59 Last Admin: 03/04/24 13:19 Dose: Not Given Documented By: Admin: 03/03/24 21:04 Dose: 600 mg Documented By: Admin: 03/03/24 08:14 Dose: 600 mg Documented By: Admin: 03/02/24 21:53 Dose: 600 mg Documented By: Admin: 03/02/24 08:18 Dose: 600 mg Documented By: Admin: 03/01/24 22:07 Dose: 600 mg Documented By: Admin: 03/01/24 15:19 Dose: Not Given Documented By: Admin: 02/29/24 19:36 Dose: 600 mg Documented By: MORE Ceftriaxone Sodium (Rocephin) 2,000 mg in 50 mls @ 100 mls/hr IV Q24H GEOVANNA Stop: 03/10/24 02:29 Last Infusion: 03/04/24 03:23 Dose: Infused Documented By: Admin: 03/04/24 02:49 Dose: 100 mls/hr Documented By: Infusion: 03/03/24 04:22 Dose: Infused Documented By: Admin: 03/03/24 03:39 Dose: 100 mls/hr Documented By: Infusion: 03/02/24 03:53 Dose: Infused Documented By: Admin: 03/02/24 03:13 Dose: 100 mls/hr Documented By: Admin: 03/01/24 15:17 Dose: Not Given Documented By: Infusion: 02/29/24 03:02 Dose: Infused Documented By: Admin: 02/29/24 02:32 Dose: 100 mls/hr Documented By: ML Lactated Ringer's (Lr) 1,000 mls @ 100 mls/hr IV .Q10H GEOVANNA Stop: 04/03/24 07:59 Last Admin: 03/04/24 08:50 Dose: 100 mls/hr Documented By: AARON Insulin Aspart (Insulin Aspart Per Unit Charge) 0 units SC ACHS GEOVANNA Stop: 04/01/24 00:00 Last Admin: 03/04/24 14:14 Dose: Not Given Documented By: AARON Co-signed By: RRUnruly Admin: 03/04/24 08:49 Dose: 13 units Documented By: AARON Co-signed By: SHANTE Admin: 03/03/24 21:35 Dose: Not Given Documented By: Admin: 03/03/24 18:02 Dose: 11 units Documented By: KARMEN Co-signed By: CECELIA Admin: 03/03/24 12:49 Dose: 4 units Documented By: KARMEN Co-signed By: CECELIA Admin: 03/03/24 09:17 Dose: 9 units Documented By: KARMEN Co-signed By: CECELIA Admin: 03/02/24 22:08 Dose: 5 units Documented By: LISA Co-signed By: KRISTOFER Admin: 03/02/24 17:21 Dose: 10 units Documented By: KARMEN Co-signed By: KIKE Admin: 03/02/24 12:27 Dose: Not Given Documented By: Admin: 03/02/24 09:08 Dose: 5 units Documented By: KARMEN Co-signed By: DENNISE Admin: 03/01/24 23:45 Dose: 4 units Documented By: LISA Co-signed By: AEPerlita Insulin Glargine (Lantus Per Unit Charge) 10 units SC DAILY GEOVANNA Stop: 04/03/24 11:29 Last Admin: 03/04/24 14:21 Dose: 10 units Documented By: AARON Co-signed By: RRR Loratadine (Loratadine 10 Mg Tab) 10 mg PO HS GEOVANNA Stop: 03/30/24 20:59 Last Admin: 03/03/24 21:04 Dose: 10 mg Documented By: Admin: 03/02/24 21:53 Dose: 10 mg Documented By: Admin: 03/01/24 22:07 Dose: 10 mg Documented By: Admin: 02/29/24 19:36 Dose: 10 mg Documented By: MORE Morphine Sulfate (Morphine Sulfate 4 Mg/Ml 1 Ml Carp\Vial) 3 mg IV Q3H PRN PRN Reason: Severe Pain (Scale 7, 8, 9,10) Stop: 03/14/24 02:09 Last Admin: 03/04/24 13:18 Dose: 3 mg Documented By: Admin: 03/04/24 08:51 Dose: 3 mg Documented By: Admin: 03/04/24 00:51 Dose: 3 mg Documented By: Admin: 03/03/24 21:34 Dose: 3 mg Documented By: Admin: 03/03/24 18:02 Dose: 3 mg Documented By: Admin: 03/03/24 12:09 Dose: 3 mg Documented By: Admin: 03/03/24 01:50 Dose: 3 mg Documented By: Admin: 03/02/24 20:17 Dose: 3 mg Documented By: Admin: 03/02/24 16:13 Dose: 3 mg Documented By: Admin: 03/02/24 12:19 Dose: 3 mg Documented By: Admin: 03/02/24 09:03 Dose: 3 mg Documented By: Admin: 03/02/24 04:57 Dose: 3 mg Documented By: Admin: 03/02/24 01:26 Dose: 3 mg Documented By: [id number] Admin: 03/01/24 22:01 Dose: 3 mg Documented By: Admin: 03/01/24 18:45 Dose: 3 mg Documented By: Admin: 03/01/24 15:25 Dose: 3 mg Documented By: Admin: 02/29/24 22:39 Dose: 3 mg Documented By: Admin: 02/29/24 19:26 Dose: 3 mg Documented By: Admin: 02/29/24 15:51 Dose: 3 mg Documented By: Admin: 02/29/24 12:22 Dose: 3 mg Documented By: Admin: 02/29/24 08:36 Dose: 3 mg Documented By: Admin: 02/29/24 02:31 Dose: 3 mg Documented By: ML Ondansetron HCl (Ondansetron Inj 2 Mg/Ml 2 Ml Vial) 4 mg IV Q4H PRN PRN Reason: Nausea Stop: 03/30/24 02:09 Last Admin: 03/04/24 13:27 Dose: 4 mg Documented By: Admin: 03/04/24 09:14 Dose: 4 mg Documented By: Admin: 03/03/24 21:02 Dose: 4 mg Documented By: Admin: 03/03/24 18:02 Dose: 4 mg Documented By: Admin: 03/03/24 12:48 Dose: 4 mg Documented By: Admin: 03/03/24 08:25 Dose: 4 mg Documented By: Admin: 03/02/24 21:54 Dose: 4 mg Documented By: Admin: 03/02/24 17:21 Dose: 4 mg Documented By: Admin: 03/02/24 12:59 Dose: 4 mg Documented By: Admin: 03/02/24 09:03 Dose: 4 mg Documented By: Admin: 03/02/24 04:45 Dose: 4 mg Documented By: Admin: 03/02/24 01:26 Dose: 4 mg Documented By: [email or web address] Admin: 03/01/24 21:35 Dose: 4 mg Documented By: Admin: 03/01/24 15:25 Dose: 4 mg Documented By: Admin: 02/29/24 22:40 Dose: 4 mg Documented By: Admin: 02/29/24 15:51 Dose: 4 mg Documented By: HARMAN Oxycodone HCl (Oxycodone Hcl Ir 5 Mg Tab (Immediate Release)) 5 mg PO Q4H PRN PRN Reason: Pain Stop: 03/16/24 12:28 Last Admin: 03/03/24 14:34 Dose: 5 mg Documented By: Admin: 03/03/24 10:03 Dose: 5 mg Documented By: Admin: 03/03/24 05:22 Dose: 5 mg Documented By: Admin: 03/02/24 21:53 Dose: 5 mg Documented By: LISA Potassium Chloride (Potassium Chloride Crtab 20 Meq Tabcr) 40 meq PO BID GEOVANNA Stop: 04/02/24 08:59 Last Admin: 03/04/24 09:04 Dose: 40 meq Documented By: Admin: 03/03/24 21:03 Dose: 40 meq Documented By: Admin: 03/03/24 08:13 Dose: 40 meq Documented By: KARMEN Discontinued Medications Hydromorphone HCl (Hydromorphone Inj 0.5 Mg/0.5 Ml Syr) Confirm Administered Dose 0.5 mg .ROUTE .STK-MED ONE Stop: 02/28/24 17:59 Last Admin: 02/28/24 17:59 Dose: 0.5 mg Documented By: MALIK Hydromorphone HCl (Hydromorphone Inj 0.5 Mg/0.5 Ml Syr) 0.5 mg IV NOW STA Stop: 02/28/24 19:35 Last Admin: 02/28/24 19:42 Dose: 0.5 mg Documented By: ML Hydromorphone HCl (Hydromorphone Inj 0.5 Mg/0.5 Ml Syr) 0.5 mg IV NOW STA Stop: 02/28/24 22:03 Last Admin: 02/28/24 22:06 Dose: 0.5 mg Documented By: ML Sodium Chloride (Nss) 1,000 mls @ 999 mls/hr IV .Q1H1M STA Stop: 02/28/24 17:30 Last Infusion: 02/28/24 18:03 Dose: Infused Documented By: Admin: 02/28/24 16:41 Dose: 999 mls/hr Documented By: SANTANA Sodium Chloride (Nss) 1,000 mls @ 999 mls/hr IV .Q1H1M ONE Stop: 02/28/24 20:35 Last Infusion: 02/28/24 20:53 Dose: Infused Documented By: Admin: 02/28/24 19:43 Dose: 999 mls/hr Documented By: ML Promethazine HCl (Phenergan) 12.5 mg in 50.5 mls @ 202 mls/hr IV NOW STA Stop: 02/28/24 22:52 Last Infusion: 02/28/24 23:02 Dose: Infused Documented By: Admin: 02/28/24 22:42 Dose: 202 mls/hr Documented By: ML Lactated Ringer's (Lr) 1,000 mls @ 200 mls/hr IV .Q5H GEOVANNA Stop: 03/30/24 02:09 Last Admin: 02/29/24 16:38 Dose: Not Given Documented By: Infusion: 02/29/24 15:39 Dose: Infused Documented By: Admin: 02/29/24 09:50 Dose: 200 mls/hr Documented By: Infusion: 02/29/24 08:21 Dose: Infused Documented By: Admin: 02/29/24 02:31 Dose: 200 mls/hr Documented By: ML Famotidine (Pepcid 20mg Iv Push) 20 mg in 5 mls @ 2.5 mls/min IV Q12H GEOVANNA Stop: 03/30/24 02:09 Last Admin: 03/03/24 08:15 Dose: 2.5 mls/min Documented By: Admin: 03/02/24 20:18 Dose: 2.5 mls/min Documented By: Admin: 03/02/24 08:18 Dose: 2.5 mls/min Documented By: Admin: 03/01/24 22:05 Dose: 2.5 mls/min Documented By: Admin: 03/01/24 15:18 Dose: Not Given Documented By: Admin: 02/29/24 19:32 Dose: 2.5 mls/min Documented By: Admin: 02/29/24 02:32 Dose: 2.5 mls/min Documented By: ML Magnesium Sulfate/Dextrose (Magnesium Sulfate / D5w) 1 gm in 100 mls @ 50 mls/hr IV Q2H GEOVANNA Stop: 02/29/24 14:29 Last Infusion: 02/29/24 15:59 Dose: Infused Documented By: Admin: 02/29/24 10:57 Dose: 50 mls/hr Documented By: Infusion: 02/29/24 10:57 Dose: Infused Documented By: Admin: 02/29/24 09:50 Dose: 50 mls/hr Documented By: Infusion: 02/29/24 09:50 Dose: Infused Documented By: Admin: 02/29/24 08:36 Dose: 50 mls/hr Documented By: ARS Lactated Ringer's (Lr) 1,000 mls @ 80 mls/hr IV .[id number] GEOVANNA Stop: 03/30/24 15:44 Last Infusion: 03/03/24 07:46 Dose: Infused Documented By: Admin: 03/03/24 05:22 Dose: 80 mls/hr Documented By: Infusion: 03/03/24 04:44 Dose: Infused Documented By: Admin: 03/02/24 16:14 Dose: 80 mls/hr Documented By: Infusion: 03/02/24 16:14 Dose: Infused Documented By: Infusion: 03/02/24 07:38 Dose: 80 mls/hr Documented By: Admin: 03/02/24 05:15 Dose: 100 mls/hr Documented By: Infusion: 03/02/24 01:25 Dose: Infused Documented By: Admin: 03/01/24 15:25 Dose: 100 mls/hr Documented By: Infusion: 03/01/24 15:19 Dose: Infused Documented By: Admin: 02/29/24 22:43 Dose: 150 mls/hr Documented By: Infusion: 02/29/24 22:43 Dose: Infused Documented By: Admin: 02/29/24 16:05 Dose: 150 mls/hr Documented By: HARMAN Magnesium Sulfate/Dextrose (Magnesium Sulfate / D5w) 1 gm in 100 mls @ 50 mls/hr IV Q2H GEOVANNA Stop: 03/01/24 20:44 Last Infusion: 03/02/24 06:09 Dose: Infused Documented By: Admin: 03/02/24 03:25 Dose: 50 mls/hr Documented By: Infusion: 03/02/24 03:20 Dose: Infused Documented By: Admin: 03/02/24 01:20 Dose: 50 mls/hr Documented By: Kristie Infusion: 03/02/24 01:20 Dose: Infused Documented By: Kristie Admin: 03/01/24 23:32 Dose: 50 mls/hr Documented By: LISA Potassium Phosphate 30 mmol/ (Sodium Chloride) 510 mls @ 88 mls/hr IV ONE ONE Stop: 03/01/24 21:02 Last Infusion: 03/01/24 23:31 Dose: Infused Documented By: Admin: 03/01/24 16:34 Dose: 88 mls/hr Documented By: HARMAN Potassium Phosphate 30 mmol/ (Sodium Chloride) 510 mls @ 88 mls/hr IV ONE ONE Stop: 03/02/24 13:32 Last Infusion: 03/02/24 14:09 Dose: Infused Documented By: Admin: 03/02/24 08:18 Dose: 88 mls/hr Documented By: KARMEN Magnesium Sulfate/Dextrose (Magnesium Sulfate / D5w) 1 gm in 100 mls @ 50 mls/hr IV Q2H [facility] Stop: 03/03/24 13:59 Last Infusion: 03/03/24 14:14 Dose: Infused Documented By: Admin: 03/03/24 12:09 Dose: 50 mls/hr Documented By: Infusion: 03/03/24 12:01 Dose: Infused Documented By: Admin: 03/03/24 10:01 Dose: 50 mls/hr Documented By: Infusion: 03/03/24 10:01 Dose: Infused Documented By: Admin: 03/03/24 08:15 Dose: 50 mls/hr Documented By: KARMEN Magnesium Sulfate/Dextrose (Magnesium Sulfate / D5w) 1 gm in 100 mls @ 50 mls/hr IV ONE ONE Stop: 03/04/24 09:34 Last Infusion: 03/04/24 11:23 Dose: Infused Documented By: Admin: 03/04/24 08:50 Dose: 50 mls/hr Documented By: AARON Insulin Aspart (Insulin Aspart Per Unit Charge) 0 units SC Q6 GEOVANNA Stop: 03/30/24 02:09 Last Admin: 03/01/24 19:17 Dose: Not Given Documented By: Admin: 03/01/24 15:17 Dose: Not Given Documented By: Admin: 03/01/24 15:17 Dose: Not Given Documented By: Admin: 02/29/24 23:54 Dose: Not Given Documented By: Admin: 02/29/24 19:20 Dose: Not Given Documented By: Admin: 02/29/24 12:32 Dose: 4 units Documented By: PRINCESS Co-signed By: SANDRINE Admin: 02/29/24 06:35 Dose: Not Given Documented By: PATTI Co-signed By: SIVAN Admin: 02/29/24 02:32 Dose: 3 units Documented By: ML Co-signed By: PATTI Ioversol (Optiray 320 100ml) 92 ml IV ONCE ONE Stop: 02/28/24 18:41 Last Admin: 02/28/24 18:41 Dose: 92 ml Documented By: LUCIA Ioversol (Optiray 320 100ml) 94 ml IV ONCE ONE Stop: 03/03/24 16:42 Last Admin: 03/03/24 16:42 Dose: 94 ml Documented By: ISAURA Morphine Sulfate (Morphine Sulfate 4 Mg/Ml 1 Ml Carp\Vial) 3 mg IV NOW STA Stop: 02/28/24 23:52 Last Admin: 02/28/24 23:59 Dose: 3 mg Documented By: ML Ondansetron HCl (Ondansetron Inj 2 Mg/Ml 2 Ml Vial) 4 mg IV NOW STA Stop: 02/28/24 17:11 Last Admin: 02/28/24 17:13 Dose: 4 mg Documented By: SANTANA Ondansetron HCl (Ondansetron Inj 2 Mg/Ml 2 Ml Vial) 4 mg IV NOW STA Stop: 02/28/24 20:06 Last Admin: 02/28/24 20:07 Dose: 4 mg Documented By: ML Ondansetron HCl (Ondansetron Inj 2 Mg/Ml 2 Ml Vial) 4 mg IV Q6H PRN PRN Reason: Nausea Stop: 03/30/24 02:09 Last Admin: 02/29/24 08:41 Dose: 4 mg Documented By: Admin: 02/29/24 02:31 Dose: 4 mg Documented By: ML Potassium Chloride (Potassium Chloride Crtab 20 Meq Tabcr) 40 meq PO NOW STA Stop: 03/02/24 07:34 Last Admin: 03/02/24 08:17 Dose: 40 meq Documented By: KARMEN Discharge Plan Visit Data Chief Complaint: Abdominal Pain Stated Complaint: PANCREATITIS, VOMITING/3 WEEKS, RT RIB/ABD PAIN ED Provider: Quintin Foster Discharge Problem: Pancreatitis, Alcohol use disorder, Presence of pancreatic duct stent Patient Disposition: Admitted As Inpatient Discharge Instructions Interventions: ED Discharge Assessment Last Done: 02/29/24 14:06
[2024-02-28] MEDS: OPTIRAY 320 100ml IV ONE (18:41)
[2024-02-28] MEDS: HYDROmorphone INJ 0.5 MG/0.5 ML SYR IV STA ×2 (19:42→22:06)
[2024-02-28] MEDS: SODIUM CHLORIDE 0.9% 1,000 ML IV ONE (19:43)
--- NOTE | 2024-02-28 19:45 | CT Scan Report ---
Exam(s): CT ABDOMEN + PELVIS With Contrast IV Amt: 92 cc opti 320 EXAM: CT Abdomen and Pelvis With Intravenous Contrast CLINICAL HISTORY: Reason for exam: Pancreatitis, RUQ/epigastric pain. TECHNIQUE: Axial computed tomography images of the abdomen and pelvis with intravenous contrast. CTDI is 8.05 mGy and DLP is 392.53 mGy-cm. Automated exposure control was utilized for the study. A dose lowering technique was utilized adhering to the principles of ALARA. CONTRAST: Patient received 92 cc Optiray 320 of IV contrast COMPARISON: August 30, 2023 FINDINGS: Lung bases: Unremarkable. No mass. No consolidation. ABDOMEN: Liver: There is fatty infiltration of the liver and hepatomegaly with the liver measuring 20 cm craniocaudad. No focal liver lesion is seen. Gallbladder and bile ducts: Unremarkable. No calcified stones. No ductal dilation. Pancreas: Trace amount of edema in the pancreatic head could represent mild acute pancreatitis. Scattered punctate calcifications are present, similar to previous consistent with chronic pancreatitis as well. No pseudocyst or abscess. The previously seen plastic pancreatic duct stent is no longer present. There is a metallic stent in the distal pancreatic duct. Duct is dilated measuring 7 mm which is decreased compared to previous when it measured 11 mm and contains gas rather than fluid. Spleen: Unremarkable. No splenomegaly. Adrenals: Unremarkable. No mass. Kidneys and ureters: Unremarkable. No solid mass. No hydronephrosis. Stomach and bowel: Unremarkable. No obstruction. No mucosal thickening. PELVIS: Appendix: The appendix is normal. Bowel loops are nondilated. No acute inflammatory changes are seen involving the bowel. Bladder: Unremarkable. No mass. Reproductive: There is a 1.3 cm calcified fibroid in the uterus. No free fluid in the pelvis. ABDOMEN and PELVIS: Intraperitoneal space: See above. Bones/joints: Moderate degenerative changes in the lumbar spine. No acute fracture or subluxation. Soft tissues: Unremarkable. Vasculature: Unremarkable. No abdominal aortic aneurysm. Lymph nodes: Unremarkable. No enlarged lymph nodes. IMPRESSION: 1. Trace amount of edema in the pancreatic head could represent mild acute pancreatitis. Scattered punctate calcifications are present, similar to previous consistent with chronic pancreatitis as well. No pseudocyst or abscess. 2. The previously seen plastic pancreatic duct stent is no longer present. There is a metallic stent in the distal pancreatic duct. The pancreatic duct is dilated measuring 7 mm which is decreased compared to previous when it measured 11 mm and contains gas rather than fluid. 3. There is fatty infiltration of the liver and hepatomegaly with the liver measuring 20 cm craniocaudad. No focal liver lesion is seen. 4. The appendix is normal. Bowel loops are nondilated. No acute inflammatory changes are seen involving the bowel. Electronically signed by: Nirmal Aaron MD 02/28/24 19:44 PM
[2024-02-28 20:17] LABS: Appearance Urine Clear (Clear); Bacteria Urine Automated 1+ (None Seen); Bilirubin Urine Negative (Negative); Blood Urine 2+ (Negative); Cast Urine Automated 0-2 /lpf (0-2); Color Urine Yellow; Glucose Urine UA 2+ (Negative); Ketones Urine 3+ (Negative); Leukocyte Esterase Urine Negative (Negative); Nitrite Urine Negative (Negative); Protein Urine 3+ (Negative); RBC Urine Automated 0-2 /hpf (0-2); Specific Gravity Urine > 1.045 (1.000-1.030); Urobilinogen Urine Negative (Negative); WBC Urine Automated 0-5 /hpf (0-5); pH Urine 5.5 (4.5-7.5)
[2024-02-28] MEDS ORDERED: PROMETHAZINE HCL 12.5 MG in SODIUM CHLORIDE 0.9% 50 ML IV STA (22:35)
[2024-02-28] MEDS: PROMETHAZINE 12.5 MG/50.5 ML BAG IV STA (22:42)
--- NOTE | 2024-02-28 23:31 | History & Physical Report ---
Date of Service February 28, 2024 Assessment & Plan (1) Pancreatitis: Plan: 38-year-old female with past medical history significant for diabetes, allergic rhinitis, moderate persistent asthma, heart murmur, hypertension, GERD, chronic neck pain, history of alcoholism, ADHD, depression, depression, general anxiety disorder, currently not on any medication except for medical marijuana states her blood pressure was high immediately after and c urrently not taking medication for blood pressure or diabetes or depression because of no insurance presents with abdominal pain and whole body pain. Patient states since February 04 she is having significant pain all over the body. She had headache.. Neck pain. Some chest pain. Having severe abdominal pains. The pain is not getting better so she came to the hospital today. Yesterday she has a episode of fever. She also a lot of nausea and vomiting. Not eating much. Having cough bringing up phlegm. Some runny nose. Some sore throat . Normal bowel and bladder movements. Hemodynamics are okay currently. Patient states she is sober since last 2 years but yesterday she drank wine because of stress. pancreatitis history of pancreatic cancer status post pancreatic stent in the past with elevated lipase and CT abdomen pelvis possible pancreatitis. Questionable air in pancreatic duct. will keep her n.p.o., aggressive fluids, IV morphine as needed consult GI in a.m. for further recommendations. Chest pains patient having pain all over the body and also chest pains EKG okay. Will follow serial cardiac enzymes and echo Possible UTI Rocephin will follow cultures. diabetes not on any medications will place on sliding scale will follow HbA1c levels and follow blood sugars history of hypertension currently not taking medications will monitor history of depression generalized anxiety disorder ADHD currently not taking medications history of asthma currently not on any inhalers will monitor history of alcoholism seems sober since last years but drank wine yesterday we will monitor DVT prophylaxis Lovenox disposition med/tele full code. History of Present Illness Chief Complaint: acute pancreatitis Primary Care Provider: Harinder Nathan, 38-year-old female with past medical history significant for diabetes, allergic rhinitis, moderate persistent asthma, heart murmur, hypertension, GERD, chronic neck pain, history of alcoholism, ADHD, depression, depression, general anxiety disorder, currently not on any medication except for medical marijuana states her blood pressure was high immediately after and currently not taking medication for blood pressure or diabetes or depression because of no insurance presents with abdominal pain and whole body pain. Patient states since February 04 she is having significant pain all over the body. She had headache.. Neck pain. Some chest pain. Having severe abdominal pains. The pain is not getting better so she came to the hospital today. Yesterday she has a episode of fever. She also a lot of nausea and vomiting. Not eating much. Having cough bringing up phlegm. Some runny nose. Some sore throat . Normal bowel and bladder movements. Hemodynamics are okay currently. Patient states she is sober since last 2 years but yesterday she drank wine because of stress. Past medical history. As mentioned above. Past surgical history. . Dental surgery. EGD with endoscopic ultrasound. ERCP. Social history. Quit smoking 2021. Smoked 4 to 5 cigarettes a day. As per epic did not drink alcohol since May 2022 but patient states significant she drank wine yesterday. Uses marijuana. Family history. Patient was adopted. Allergies Allergy/AdvReac Type Severity Reaction Status Date / Time bee venom protein (honey bee) Allergy Severe ANAPHYLAXIS Verified 02/28/24 19:55 Home Medications Medication Instructions Recorded Confirmed Type epinephrine 0.3 mg/0.3 mL 0.3 mg IM UD PRN Allergic Reaction 11/18/21 02/28/24 History injection, auto-injector Medical Marijuana 1 dose inhalation HS PRN Sleep 02/08/22 02/28/24 History Past Med/Surg History Problem List (Updated 10/03/23 @ 00:09 by Kimo Denton) Pancreatitis Hypomagnesemia Hypokalemia (Acute) Hyponatremia HTN (hypertension) no meds DMII (diabetes mellitus, type 2) Gestational diabetes History of tonsillectomy History of adenoidectomy Anxiety H/O Depression H/O Presence of pancreatic duct stent Chronic pancreatitis Acute on chronic pancreatitis 08/30/23- admitted to [facility] Bipolar disorder Alcohol use disorder quit 1.5 years ago ANGE (generalized anxiety disorder) Asthma has not used inhaler for a long time Cardiac murmur no significant valvular disease on 08/20/2019 echo GERD (gastroesophageal reflux disease) Scoliosis MINOR History of section x 2 Medical History (Updated 02/28/24 @ 23:37 by Sherwin Ibanez MD) Vomiting Acute pancreatitis Epigastric abdominal pain Encounter for pre-operative examination History of prolonged Q-T interval on ECG Pancreatic stones Chronic neck pain Medical marijuana use Post traumatic stress disorder (PTSD) Diabetes IDDM Hgb A1C 12.3 in 08/2023 Surgical History (Updated 10/03/23 @ 00:09 by Kimo Denton) History of tonsillectomy and adenoidectomy History of esophagogastroduodenoscopy (EGD) History of ERCP Family History Other Adopted No family history of adverse response to anesthesia Social History Smoking Status: Former smoker Tobacco Type: E-cigarettes / Vaping Second Hand Exposure: Yes (at work); Do You Dip or Chew Tobacco: No; Hx Alcohol Use: Yes Alcohol type: wine Hx Substance Use: Yes Prescribed Medications: Marijuana Substance Use Type Other:: medical marijuana Preferred Language: Hebrew 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: Effective Machine 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 ENT- oropharynx clear Neck- supple, no JVD. Lungs- clear to auscultation no wheezing or crackles. Heart- regular rhythm; no murmur, no gallop. Abdomen- normal bowel sounds, soft, diffuse tender no distension, no rigidity Extremities- no pretibial edema, no erythema seen. Neuro- alert, oriented PERRL, EOMI; no facial palsy; no dysarthria; moves extremnities. Results & Data Results & Data Vital Signs (Past 12 Hours) Vital Signs Temp Pulse Pulse Resp BP BP Pulse Ox 02/28/24 23:00 93 H 16 138/85 95 02/28/24 21:00 100 H 16 148/96 H 97 02/28/24 20:33 90 02/28/24 19:00 104 H 27 H 155/98 H 96 02/28/24 17:59 112 H 16 92 02/28/24 16:47 111 H 20 97 02/28/24 16:28 137 H 02/28/24 16:10 36.4 C L 139 H 18 119/100 96 O2 Del Method 02/28/24 23:00 Room Air 02/28/24 21:00 Room Air 02/28/24 20:33 02/28/24 19:00 Room Air 02/28/24 17:59 Room Air 02/28/24 16:47 Room Air 02/28/24 16:28 02/28/24 16:10 Room Air Diagnostic Findings Laboratory Results WBC 14.88 K/ul (4.8-10.8) H 02/28/24 16:35 RBC 5.42 M/uL (4.20-5.40) H 02/28/24 16:35 Hgb 15.7 g/dl (12.0-16.0) 02/28/24 16:35 Hct 44.1 % (37.0-47.0) 02/28/24 16:35 MCV 81.4 fL (80.0-100.0) 02/28/24 16:35 MCH 29.0 pg (25.0-34.0) 02/28/24 16:35 MCHC 35.6 g/dL (32.0-36.0) 02/28/24 16:35 RDW Std Deviation 38.8 fL (36.4-46.3) 02/28/24 16:35 RDW Coeff of Arnold 13.2 % (11.5-14.5) 02/28/24 16:35 Plt Count 398 K/uL (130-400) 02/28/24 16:35 MPV 9.4 fL (9.4-12.4) 02/28/24 16:35 Immature Gran % (Auto) 0.2 % 02/28/24 16:35 Neut % (Auto) 88.9 % 02/28/24 16:35 Lymph % (Auto) 7.5 % 02/28/24 16:35 Jones % (Auto) 3.2 % 02/28/24 16:35 Eos % (Auto) 0.0 % 02/28/24 16:35 Baso % (Auto) 0.2 % 02/28/24 16:35 Neut # (Auto) 13.22 K/uL (1.40-6.50) H 02/28/24 16:35 Lymph # (Auto) 1.12 K/uL (1.20-3.40) L 02/28/24 16:35 Jones # (Auto) 0.48 K/uL (0.11-0.59) 02/28/24 16:35 Eos # (Auto) 0.00 K/uL (0.00-0.50) 02/28/24 16:35 Baso # (Auto) 0.03 K/uL (0.00-0.20) 02/28/24 16:35 Immature Gran # (Auto) 0.03 K/uL (0.01-0.20) 02/28/24 16:35 Sodium 135 mmol/L (136-145) L 02/28/24 16:35 Potassium 3.4 mmol/L (3.5-5.1) L 02/28/24 16:35 Chloride 83 mmol/L (98-107) L 02/28/24 16:35 Carbon Dioxide 25 mmol/L (21-32) 02/28/24 16:35 Anion Gap 27 (3-11) H 02/28/24 16:35 BUN 9 mg/dl (6-23) 02/28/24 16:35 Creatinine 0.57 mg/dl (0.6-1.2) L 02/28/24 16:35 Est Cr Clr Drug Dosing 102.0 ml/min 02/28/24 16:35 Est GFR ( Amer) 137.3 ml/min 02/28/24 16:35 Est GFR (Non-Af Amer) 118.4 ml/min 02/28/24 16:35 BUN/Creatinine Ratio 15.8 (10-20) 02/28/24 16:35 Glucose 309 mg/dl (70-99(Fasting)) H* 02/28/24 16:35 Calcium 9.1 mg/dl (8.6-10.3) 02/28/24 16:35 Total Bilirubin 0.5 mg/dl (0.2-1.0) 02/28/24 16:35 AST 65 U/L (13-39) H 02/28/24 16:35 ALT 58 U/L (7-52) H 02/28/24 16:35 Alkaline Phosphatase 77 U/L (34-104) 02/28/24 16:35 Total Protein 8.5 gm/dl (6.0-8.3) H 02/28/24 16:35 Albumin 4.2 gm/dl (3.4-5.0) 02/28/24 16:35 Globulin 4.3 gm/dl (2.5-4.0) H 02/28/24 16:35 Albumin/Globulin Ratio 1.0 (0.9-2) 02/28/24 16:35 Lipase 1027 U/L (11-82) H 02/28/24 16:35 HCG, Qual Negative (Negative) 02/28/24 16:35 Urine Color Yellow 02/28/24 19:47 Urine Appearance Clear (Clear) 02/28/24 19:47 Urine pH 5.5 (4.5-7.5) 02/28/24 19:47 Ur Specific [place] > 1.045 (1.000-1.030) H 02/28/24 19:47 Urine Protein 3+ (Negative) H 02/28/24 19:47 Urine Glucose (UA) 2+ (Negative) H 02/28/24 19:47 Urine Ketones 3+ (Negative) H 02/28/24 19:47 Urine Blood 2+ (Negative) H 02/28/24 19:47 Urine Nitrite Negative (Negative) 02/28/24 19:47 Urine Bilirubin Negative (Negative) 02/28/24 19:47 Urine Urobilinogen Negative (Negative) 02/28/24 19:47 Ur Leukocyte Esterase Negative (Negative) 02/28/24 19:47 Urine WBC (Auto) 0-5 /hpf (0-5) 02/28/24 19:47 Urine RBC (Auto) 0-2 /hpf (0-2) 02/28/24 19:47 U Hyaline Cast (Auto) 0-2 /lpf (0-2) 02/28/24 19:47 U Epithel Cells (Auto) 3-5 /hpf (0-2) H 02/28/24 19:47 Urine Bacteria (Auto) 1+ (None Seen) H 02/28/24 19:47 Impressions Abdomen/Pelvis CT 02/28/24 18:25 Exam(s): CT ABDOMEN + PELVIS With Contrast IV Amt: 92 cc opti 320 EXAM: CT Abdomen and Pelvis With Intravenous Contrast CLINICAL HISTORY: Reason for exam: Pancreatitis, RUQ/epigastric pain. TECHNIQUE: Axial computed tomography images of the abdomen and pelvis with intravenous contrast. CTDI is 8.05 mGy and DLP is 392.53 mGy-cm. Automated exposure control was utilized for the study. A dose lowering technique was utilized adhering to the principles of ALARA. CONTRAST: Patient received 92 cc Optiray 320 of IV contrast COMPARISON: August 30, 2023 FINDINGS: Lung bases: Unremarkable. No mass. No consolidation. ABDOMEN: Liver: There is fatty infiltration of the liver and hepatomegaly with the liver measuring 20 cm craniocaudad. No focal liver lesion is seen. Gallbladder and bile ducts: Unremarkable. No calcified stones. No ductal dilation. Pancreas: Trace amount of edema in the pancreatic head could represent mild acute pancreatitis. Scattered punctate calcifications are present, similar to previous consistent with chronic pancreatitis as well. No pseudocyst or abscess. The previously seen plastic pancreatic duct stent is no longer present. There is a metallic stent in the distal pancreatic duct. Duct is dilated measuring 7 mm which is decreased compared to previous when it measured 11 mm and contains gas rather than fluid. Spleen: Unremarkable. No splenomegaly. Adrenals: Unremarkable. No mass. Kidneys and ureters: Unremarkable. No solid mass. No hydronephrosis. Stomach and bowel: Unremarkable. No obstruction. No mucosal thickening. PELVIS: Appendix: The appendix is normal. Bowel loops are nondilated. No acute inflammatory changes are seen involving the bowel. Bladder: Unremarkable. No mass. Reproductive: There is a 1.3 cm calcified fibroid in the uterus. No free fluid in the pelvis. ABDOMEN and PELVIS: Intraperitoneal space: See above. Bones/joints: Moderate degenerative changes in the lumbar spine. No acute fracture or subluxation. Soft tissues: Unremarkable. Vasculature: Unremarkable. No abdominal aortic aneurysm. Lymph nodes: Unremarkable. No enlarged lymph nodes. IMPRESSION: 1. Trace amount of edema in the pancreatic head could represent mild acute pancreatitis. Scattered punctate calcifications are present, similar to previous consistent with chronic pancreatitis as well. No pseudocyst or abscess. 2. The previously seen plastic pancreatic duct stent is no longer present. There is a metallic stent in the distal pancreatic duct. The pancreatic duct is dilated measuring 7 mm which is decreased compared to previous when it measured 11 mm and contains gas rather than fluid. 3. There is fatty infiltration of the liver and hepatomegaly with the liver measuring 20 cm craniocaudad. No focal liver lesion is seen. 4. The appendix is normal. Bowel loops are nondilated. No acute inflammatory changes are seen involving the bowel. Electronically signed by: Nirmal Aaron MD 02/28/24 19:44 PM ECG Additional Comments: ECG sinus tachycardia rate of 112. Nonspecific T wave abnormality. No significant change was found. Code Status & VTE Plan VTE Prophylaxis Plan VTE Prophylaxis will be ordered: Yes
[2024-02-28] MEDS: MoRPHine SULFATE 4 MG/ML 1 ML CARP\\VIAL IV STA (23:59)
[2024-02-29] MEDS ORDERED: GLUCOSE 40% GEL 15 GM TUBE PO PRN (02:10)
[2024-02-29] MEDS ORDERED: GLUCOSE 10 TAB/TUBE PO PRN (02:10)
[2024-02-29] MEDS ORDERED: CARBOHYDRATES FOR HYPOGLYCEMIA PO PRN (02:10)
[2024-02-29] MEDS ORDERED: GLUCAGON FOR INJ 1 MG VIAL SQ PRN (02:10)
[2024-02-29] MEDS ORDERED: DEXTROSE 50% 50 ML SYRINGE IV PRN (02:10)
[2024-02-29] MEDS ORDERED: NITROGLYCERIN SL 0.4 MG/TAB TAB SL PRN (02:10)
[2024-02-29] MEDS: MoRPHine SULFATE 4 MG/ML 1 ML CARP\\VIAL IV PRN (02:31)
[2024-02-29] MEDS: LACTATED RINGER'S 1,000 ML IV SCH ×2 (02:31→16:05)
[2024-02-29] MEDS: ONDANSETRON INJ 2 MG/ML 2 ML VIAL IV PRN ×2 (02:31→15:51)
[2024-02-29] MEDS: cefTRIAXone SODIUM 2,000 MG/50 ML BAG IV SCH (02:32)
[2024-02-29] MEDS: FAMOTIDINE 20MG IV PUSH 20 MG/5 ML SYR IV SCH (02:32)
[2024-02-29] MEDS: INSULIN ASPART PER UNIT CHARGE SC SCH (02:32)
[2024-02-29 06:25] LABS: Alanine Aminotransferase 37 U/L (7-52); Albumin Level 3.2 gm/dl (3.4-5.0); Alkaline Phosphatase 54 U/L (34-104); Anion Gap 17 (3-11); Aspartate Aminotransferase 36 U/L (13-39); Bilirubin Direct 0.2 mg/dl (0-0.2); Bilirubin,Total 0.5 mg/dl (0.2-1.0); Blood Urea Nitrogen 4 mg/dl (6-23); Calcium 7.4 mg/dl (8.6-10.3); Carbon Dioxide 21 mmol/L (21-32); Chloride 96 mmol/L (98-107); Creatinine Clr Calc Pharmacy 145.3 ml/min; Est GFR (African American) > 150.0 ml/min; Est GFR (Non-African American) 133.1 ml/min; Glucose 113 mg/dl (70-99(Fasting)); Lipase 535 U/L (11-82); Magnesium 1.3 mg/dl (1.7-2.4); Potassium 3.6 mmol/L (3.5-5.1); Sodium 134 mmol/L (136-145); Total Protein 6.3 gm/dl (6.0-8.3)
[2024-02-29 06:27] LABS: Basophils # (auto) 0.03 K/uL (0.00-0.20); Basophils % (auto) 0.3 %; Eosinophils # (auto) 0.04 K/uL (0.00-0.50); Eosinophils % (auto) 0.3 %; Hematocrit (blood only) 34.2 % (37.0-47.0); Hemoglobin 11.8 g/dl (12.0-16.0); Immature Granulocytes # (auto) 0.05 K/uL (0.01-0.20); Immature Granulocytes % (auto) 0.4 %; Lymphocytes # (auto) 1.15 K/uL (1.20-3.40); Lymphocytes % (auto) 9.7 %; Mean Corpuscular Hemoglobin 28.9 pg (25.0-34.0); Mean Corpuscular Hgb Conc 34.5 g/dL (32.0-36.0); Mean Corpuscular Volume 83.8 fL (80.0-100.0); Mean Platelet Volume 9.7 fL (9.4-12.4); Monocytes # (auto) 0.72 K/uL (0.11-0.59); Monocytes % (auto) 6.1 %; Neutrophils # (auto) 9.87 K/uL (1.40-6.50); Neutrophils % (auto) 83.2 %; Platelet Count 285 K/uL (130-400); RDW Coefficient of Variation 13.5 % (11.5-14.5); RDW Standard Deviation 41.7 fL (36.4-46.3); Red Blood Count 4.08 M/uL (4.20-5.40); White Blood Count 11.86 K/ul (4.8-10.8)
[2024-02-29 06:49] LABS: Troponin I High Sensitivity 5.1 pg/ml (0-14)
[2024-02-29 07:14] LABS: Estimated Average Glucose 246 mg/dl; Hemoglobin A1C 10.2 % (4.5-5.6)
[2024-02-29] MEDS: MAGNESIUM SULFATE / D5W 1 GM/100 ML BAG IV SCH (08:36)
[2024-02-29] MEDS: ENOXAPARIN INJ 40 MG/0.4 ML SYR SQ SCH (08:37)
--- NOTE | 2024-02-29 09:15 | Electrocardiogram Report ---
Test Reason : Blood Pressure : / mmHG Vent. Rate : 112 BPM Atrial Rate : 112 BPM P-R Int : 122 ms QRS Dur : 068 ms QT Int : 324 ms P-R-T Axes : 080 035 -13 degrees QTc Int : 442 ms Sinus tachycardia Nonspecific T wave abnormality Abnormal ECG When compared with ECG of 30-AUG-2023 09:35, No significant change was found Confirmed by Michael Sauceda ([id number]) on 02/29/2024 9:15:00 AM Referred By: REFERRED SELF Confirmed By:Michael Sauceda
--- NOTE | 2024-02-29 09:24 | Gastrointestinal Consultation ---
<Statement entered by Mahendra Andrade MD - 02/29/24 13:35> Patient seen and examined. Case discussed with Lucian ESPINOSA. Chronic and recurrent pancreatitis secondary to ETOH. Discussed with patient that yes she needs to abstain from ETOH but also will need an ERCP to remove ? exchange pancreatic stent as eventually this could scar and make her situation worse. It seems as if her acute pancreatitis may be improving based on her decreased lipase levels. Would continue to treat as acute pancreatitis with IV hydration and pain control. Hopefully if she improves and her symptoms are back to baseline, she can have an elective OP ERCP to deal with the stent. If, however, she regresses, may need to have her evaluated sooner for possible stent removal. As I do not perform ERCP this would need to be arranged elsewhere by transfer. Discussed with patient. Date of Consultation February 29, 2024 Assessment & Plan (1) Pancreatitis: Patient with admitted with pancreatitis in the setting of recent alcohol use. she has a history of chronic pancreatitis with history of pancreatic stenting. - continue with NPO, IVF, and pain control. - she will need to follow up with [facility] upon discharge as she was supposed to have an ERCP done 3 months after the one she had in 09/2023 but never did. - recommended that she cease all etoh use. - continue with zofran 4mg IV q 6 hours prn nausea/vomiting. History of Present Illness Reason for Consultation: Pancreatitis Requesting Physician: Sherwin Ibanez MD Attending Physician: Jack Dominguez MD History of Present Illness Patient is a 38 year old female with past medical history significant for diabet es, allergic rhinitis, moderate persistent asthma, heart murmur, hypertension, GERD, chronic neck pain, history of alcoholism, ADHD, depression, depression, general anxiety disorder, who presented to the ED with complaints of nausea, vomiting, and abdominal pain that has been ongoing since February 05, 2024. She admits to a past history of alcohol use but had not been using until recently when she restarted drinking. She has been admitted with pancreatitis. She tells me she has had 5 episodes of pancreatitis since 2018. In the past she has followed with the [facility] GI team, and had a recent ERCP 09/29/23 with two stents removed, chronic pancreatitis with moderate dilation of the main duct, pancreatic stones removed. 1 covered metal stent was in place in ventral pancreatic duct. She was recommended to have a repeat in 3 months but did not have it done. She tells me that she has maybe vomited more than 100 times since February 04 when her symptoms started. she admits that at times there can be some slight blood tinge to these. she tells me that her last episode of nausea/vomiting was several hours ago. she still has ongoing abdominal pain that she rates 10/10. Patient denies any current issues with dysphagia, heartburn, change in bowels, melena, or bright red blood per rectum. 02/29/24 wbc 11.86, hgb 11.8, LFTs wnl, lipase 525 (previously 1027). 02/28/24 CT Trace amount of edema in the pancreatic head could represent mild acute pancreatitis. Scattered punctate calcifications are present, similar to previous consistent with chronic pancreatitis as well. No pseudocyst or abscess. The previously seen plastic pancreatic duct stent is no longer present. There is a metallic stent in the distal pancreatic duct. The pancreatic duct is dilated measuring 7 mm which is decreased compared to previous when it measured 11 mm and contains gas rather than fluid. There is fatty infiltration of the liver and hepatomegaly with the liver measuring 20 cm craniocaudad. No focal liver lesion is seen. The appendix is normal. Bowel loops are nondilated. No acute inflammatory changes are seen involving the bowel. Allergies Allergy/AdvReac Type Severity Reaction Status Date / Time bee venom protein (honey bee) Allergy Severe ANAPHYLAXIS Verified 02/28/24 19:55 Home Medications Medication Instructions Recorded Confirmed Type epinephrine 0.3 mg/0.3 mL 0.3 mg IM UD PRN Allergic Reaction 11/18/21 02/28/24 History injection, auto-injector Medical Marijuana 1 dose inhalation HS PRN Sleep 02/08/22 02/28/24 History Patient History Medical History (Updated 02/28/24 @ 23:37 by Sherwin Ibanez MD) Vomiting Acute pancreatitis Epigastric abdominal pain Encounter for pre-operative examination History of prolonged Q-T interval on ECG Pancreatic stones Chronic neck pain Medical marijuana use Post traumatic stress disorder (PTSD) Diabetes IDDM Hgb A1C 12.3 in 08/2023 Surgical History (Updated 10/03/23 @ 00:09 by Kimo Denton) History of tonsillectomy and adenoidectomy History of esophagogastroduodenoscopy (EGD) History of ERCP Family History Other Adopted No family history of adverse response to anesthesia Social History Smoking Status: Former smoker Tobacco Type: E-cigarettes / Vaping Second Hand Exposure: Yes (at work); Do You Dip or Chew Tobacco: No; Hx Alcohol Use: Yes Alcohol type: wine Hx Substance Use: Yes Prescribed Medications: Marijuana Substance Use Type Other:: medical marijuana Preferred Language: Beninese 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: Effective 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 Psychiatric: Orientation: alert and oriented x 3 Results & Data Vital Signs (Past 12 Hours) Vital Signs Pulse Pulse Resp BP BP Pulse Ox O2 Del Method 02/29/24 08:03 97 H 15 100 02/29/24 06:32 114/87 02/29/24 06:32 114/87 02/29/24 06:32 114/87 02/29/24 06:18 94 H 15 02/29/24 04:00 13 131/87 98 Room Air 02/29/24 03:30 93 H 14 147/91 H 98 Room Air 02/29/24 02:44 93 H 15 97 Room Air 02/29/24 02:42 94 H 21 146/94 H 96 Room Air 02/29/24 02:42 94 H 21 96 Room Air 02/29/24 01:00 95 H 16 143/92 H 95 Room Air 02/28/24 23:25 97 H 02/28/24 23:00 93 H 16 138/85 95 Room Air PG Care Time/CCT Total # of Minutes Spent Total Time Spent with Patient: Total time for today's patient care has met or exceeded 45 minutes which includes reviewing records prior to seeing the patient, face to face encounter, as well as discussion with physician and record documentation. Coding Level of Care Code 65840 IN/OBS CONSULT LVL 3,45M Diagnoses Pancreatitis K85.90
--- NOTE | 2024-02-29 18:19 | Hospitalist Progress Note ---
Date of Service February 29, 2024 Assessment & Plan (1) Pancreatitis: Plan: 38-year-old female with past medical history significant for diabetes, allergic rhinitis, moderate persistent asthma, heart murmur, hypertension, GERD, chronic neck pain, history of alcoholism, ADHD, depression, depression, general anxiety disorder, currently not on any medication except for medical marijuana states her blood pressure was high immediately after and c urrently not taking medication for blood pressure or diabetes or depression because of no insurance presents with abdominal pain and whole body pain. Patient states since February 04 she is having significant pain all over the body. Patient states she is sober since last 2 years but she drank wine the day [employer] because of stress. CT A/P- 1. Trace amount of edema in the pancreatic head could represent mild acute pancreatitis. Scattered punctate calcifications are present, similar to previous consistent with chronic pancreatitis as well. No pseudocyst or abscess. 2. The previously seen plastic pancreatic duct stent is no longer present. There is a metallic stent in the distal pancreatic duct. The pancreatic duct is dilated measuring 7 mm which is decreased compared to previous when it measured 11 mm and contains gas rather than fluid. 3. There is fatty infiltration of the liver and hepatomegaly with the liver measuring 20 cm craniocaudad. No focal liver lesion is seen. 4. The appendix is normal. Bowel loops are nondilated. No acute inflammatory changes are seen involving the bowel. Echo with no significant abnormality Recurrent acute on chronic pancreatitis, currently in setting of alcohol use- Improving with conservative management. Lipase 1027->535. CT A/P as above. Seen by GI and recommendations noted. Continue npo, ivf, prn analgesics and antiemetics. Slowly advance diet as tolerated likely with clears in the morning. No more vomiting. - Per GI- "She needs to abstain from ETOH but also will need an ERCP to remove ? exchange pancreatic stent as eventually this could scar and make her situation worse. It seems as if her acute pancreatitis may be improving based on her decreased lipase levels. Would continue to treat as acute pancreatitis with IV hydration and pain control. Hopefully if she improves and her symptoms are back to baseline, she can have an elective OP ERCP to deal with the stent. If, however, she regresses, may need to have her evaluated sooner for possible stent removal. As I do not perform ERCP this would need to be arranged elsewhere by transfer." Hypomagnesemia- repleted, recheck in am History of pancreatic cancer status post pancreatic stent in the past- she has not followed with her [facility] GI as OP and will need follow up upon discharge URI symptoms/left otitis externa- will continue symptomatic treatment with zyrtec, mucinex, ciprodex ear drops. Continue empiric ceftriaxone from admission. Send sputum clx and follow. Might need CT face if no improvement. UA does not suggest UTI. DM-2- not on meds due to no insurance. SSI. currently npo. A1c H/o HTN- currently BP stable and not on any meds DVT prophylaxis- sc Lovenox Disposition- Pending medical stability Time spent- approx 50 mins Admission and Anticipated Discharge Date Admission Date: February 28, 2024 Subjective patient was seen and examined at bedside. No vomiting today. Tolerating sips well. Complains of headache and left ear pain. Continues with URI symptoms with runny nose, cough with yellow phlegm and congestion. No fever or chills. She wanted me to examine her left ear as it is bothering her. Review of Systems Review of Systems: All systems reviewed & are unremarkable except as noted in Subjective Physical Exam Physical Exam: General: Lying comfortably in bed, not in acute distress, on room air HEENT: EOMI, NEYDA, MMM. Left tragal tenderness. Bilateral ear wax noted on otoscopy- Left TM could not be seen due to wax, right TM normal. No ear discharge noted on visible part but some erythema noted. Chest: Clear breath sounds bilaterally, no wheezes or crackles CVS: Regular rate and rhythm, normal heart sounds, no murmur Abdomen: Soft, non tender, not distended, normal bowel sounds Neuro: Awake, alert, oriented, conversing well, non focal Extremities: No cyanosis, clubbing or edema Results & Data Results & Data Vital Signs (Past 12 Hours) Vital Signs Temp Pulse Pulse Resp BP BP Pulse Ox 02/29/24 16:22 108 H 02/29/24 15:44 36.9 C 109 H 18 132/87 99 02/29/24 08:03 97 H 15 100 02/29/24 06:32 114/87 02/29/24 06:32 114/87 02/29/24 06:32 114/87 02/29/24 06:18 94 H 15 O2 Del Method 02/29/24 16:22 02/29/24 15:44 Room Air 02/29/24 08:03 02/29/24 06:32 02/29/24 06:32 02/29/24 06:32 02/29/24 06:18 Laboratory Results Short CBC 02/29/24 Range/Units 05:33 WBC 11.86 H (4.8-10.8) K/ul Hgb 11.8 L D (12.0-16.0) g/dl Hct 34.2 L (37.0-47.0) % Plt Count 285 (130-400) K/uL BMP 02/29/24 05:33 Sodium 134 L Potassium 3.6 Chloride 96 L Carbon Dioxide 21 BUN 4 L Creatinine 0.40 L Glucose 113 H Calcium 7.4 L Liver Function 02/29/24 Range/Units 05:33 Total Bilirubin 0.5 (0.2-1.0) mg/dl Direct Bilirubin 0.2 (0-0.2) mg/dl AST 36 (13-39) U/L ALT 37 (7-52) U/L Alkaline Phosphatase 54 (34-104) U/L Albumin 3.2 L (3.4-5.0) gm/dl Urine 02/28/24 Range/Units 19:47 Urine Color Yellow Urine Appearance Clear (Clear) Urine pH 5.5 (4.5-7.5) Ur Specific [place] > 1.045 H (1.000-1.030) Urine Protein 3+ H (Negative) Urine Glucose (UA) 2+ H (Negative)
[2024-02-29] MEDS: CIPRO 0.3%/DEXAMETHASONE 0.1% OTIC SUSP 7.5ML OTL SCH (19:35)
[2024-02-29] MEDS: guaiFENesin 600 MG TABCR PO SCH (19:36)
[2024-02-29] MEDS: LORATADINE 10 MG TAB PO SCH (19:36)
[2024-02-29] MEDS ORDERED: CIPRO 0.3%/DEXAMETHASONE 0.1% OTIC SUSP 7.5ML OTL SCH (21:00)
[2024-03-01] MEDS ORDERED: POTASSIUM PHOS 3 MMOL/1 ML INFUSION IV STA (14:38)
[2024-03-01] MEDS: FLUTICASONE PROPIONATE NA SPR 16 GM BTL SCH (15:18)
[2024-03-01] MEDS: POTASSIUM PHOSPHATE 30 MMOL in SODIUM CHLORIDE 0.9% 500 ML IV ONE (16:34)
[2024-03-01 17:47] LABS: Blood Urea Nitrogen < 2 mg/dl (6-23); Calcium 7.9 mg/dl (8.6-10.3); Carbon Dioxide 15 mmol/L (21-32); Chloride 97 mmol/L (98-107); Creatinine Clr Calc Pharmacy 176.1 ml/min; Est GFR (African American) > 150.0 ml/min; Est GFR (Non-African American) 141.8 ml/min; Lipase 709 U/L (11-82); Magnesium 1.3 mg/dl (1.7-2.4); Phosphorus 1.3 mg/dl (2.5-4.9); Potassium 3.4 mmol/L (3.5-5.1); Sodium 129 mmol/L (136-145)
[2024-03-01 17:52] LABS: Glucose 174 mg/dl (70-99(Fasting))
[2024-03-01 20:06] LABS: Hematocrit (blood only) 36.6 % (37.0-47.0); Hemoglobin 12.5 g/dl (12.0-16.0)
[2024-03-01] MEDS ORDERED: Nursing to Pharmacy Communication SCH ×2 (22:15→22:45)
[2024-03-01] MEDS: MAGNESIUM SULFATE / D5W 1 GM/100 ML BAG IV SCH (23:32)
[2024-03-01] MEDS: INSULIN ASPART PER UNIT CHARGE SC SCH (23:45)
[2024-03-02 06:54] LABS: Hematocrit (blood only) 35.2 % (37.0-47.0); Hemoglobin 12.3 g/dl (12.0-16.0); Mean Corpuscular Hemoglobin 28.9 pg (25.0-34.0); Mean Corpuscular Hgb Conc 34.9 g/dL (32.0-36.0); Mean Corpuscular Volume 82.8 fL (80.0-100.0); Mean Platelet Volume 9.8 fL (9.4-12.4); Platelet Count 255 K/uL (130-400); RDW Coefficient of Variation 12.9 % (11.5-14.5); Red Blood Count 4.25 M/uL (4.20-5.40); White Blood Count 6.97 K/ul (4.8-10.8)
[2024-03-02 07:17] LABS: Alanine Aminotransferase 29 U/L (7-52); Albumin Level 3.3 gm/dl (3.4-5.0); Alkaline Phosphatase 58 U/L (34-104); Anion Gap 15 (3-11); Aspartate Aminotransferase 31 U/L (13-39); Bilirubin,Total 0.3 mg/dl (0.2-1.0); Blood Urea Nitrogen < 2 mg/dl (6-23); Calcium 7.8 mg/dl (8.6-10.3); Carbon Dioxide 19 mmol/L (21-32); Chloride 97 mmol/L (98-107); Creatinine Clr Calc Pharmacy 187.5 ml/min; Est GFR (African American) > 150.0 ml/min; Est GFR (Non-African American) 144.7 ml/min; Globulin 3.3 gm/dl (2.5-4.0); Glucose 241 mg/dl (70-99(Fasting)); Lipase 570 U/L (11-82); Magnesium 2.1 mg/dl (1.7-2.4); Phosphorus 1.6 mg/dl (2.5-4.9); Sodium 131 mmol/L (136-145); Total Protein 6.6 gm/dl (6.0-8.3)
[2024-03-02] MEDS ORDERED: POTASSIUM PHOS 3 MMOL/1 ML INFUSION IV STA (07:34)
[2024-03-02] MEDS: POTASSIUM CHLORIDE CRTAB 20 MEQ TABCR PO STA (08:17)
[2024-03-02] MEDS: POTASSIUM PHOSPHATE 30 MMOL in SODIUM CHLORIDE 0.9% 500 ML IV ONE (08:18)
[2024-03-02 11:38] LABS: C Reactive Protein 10.04 mg/dl (0-0.5)
--- NOTE | 2024-03-02 14:52 | Hospitalist Progress Note ---
Date of Service March 02, 2024 Assessment & Plan (1) Pancreatitis: Plan: 38-year-old female with past medical history significant for diabetes, allergic rhinitis, moderate persistent asthma, heart murmur, hypertension, GERD, chronic neck pain, history of alcoholism, ADHD, depression, depression, general anxiety disorder, currently not on any medication except for medical marijuana states her blood pressure was high immediately after and c urrently not taking medication for blood pressure or diabetes or depression because of no insurance presents with abdominal pain and whole body pain. Patient states since February 04 she is having significant pain all over the body. Patient states she is sober since last 2 years but she drank wine the day [employer] because of stress. CT A/P- 1. Trace amount of edema in the pancreatic head could represent mild acute pancreatitis. Scattered punctate calcifications are present, similar to previous consistent with chronic pancreatitis as well. No pseudocyst or abscess. 2. The previously seen plastic pancreatic duct stent is no longer present. There is a metallic stent in the distal pancreatic duct. The pancreatic duct is dilated measuring 7 mm which is decreased compared to previous when it measured 11 mm and contains gas rather than fluid. 3. There is fatty infiltration of the liver and hepatomegaly with the liver measuring 20 cm craniocaudad. No focal liver lesion is seen. 4. The appendix is normal. Bowel loops are nondilated. No acute inflammatory changes are seen involving the bowel. Echo with no significant abnormality Recurrent acute on chronic pancreatitis, currently in setting of alcohol use- Improving with conservative management. Lipase 1027->500s. CT A/P as above. Transaminitis on admission resolved. Anion gap metabolic acidosis on admission is improving which was likely due to starvation ketoacidosis. - Improving with conservative management- will advance diet to full liquids, continue prn analgesics and antiemetics, gentle IVF for now. Check lipase in am, CRP every other day. - Per GI- "She needs to abstain from ETOH but also will need an ERCP to remove ? exchange pancreatic stent as eventually this could scar and make her situation worse. It seems as if her acute pancreatitis may be improving based on her decreased lipase levels. Would continue to treat as acute pancreatitis with IV hydration and pain control. Hopefully if she improves and her symptoms are back to baseline, she can have an elective OP ERCP to deal with the stent. If, however, she regresses, may need to have her evaluated sooner for possible stent removal. As I do not perform ERCP this would need to be arranged elsewhere by transfer." Hypomagnesemia- resolved with repletion Hypophosphatemia- repleted iv, recheck in am Hypokalemia- repleted, recheck in am Hyponatremia- mild, stable, recheck in am History of pancreatic cancer status post pancreatic stent in the past- she has not followed with her [facility] GI as OP and will need follow up upon discharge URI symptoms/left otitis externa- will continue symptomatic treatment with zyrtec, mucinex, ciprodex ear drops. Continue empiric ceftriaxone from admission. Send sputum clx and follow. Might need CT face if no improvement. UA does not suggest UTI. DM-2- not on meds due to no insurance. A1c 10.2. Diabetic diet. Continue insulin- adjust as indicated H/o HTN- currently BP stable and not on any meds DVT prophylaxis- sc Lovenox Disposition- Pending medical stability. Time spent- approx 50 mins Admission and Anticipated Discharge Date Admission Date: February 28, 2024 Subjective Patient was seen and examined at bedside. She is feeling better. Pain is improved and she was able to tolerate clears although it did cause some abd discomfort and pain but nothing as bad. Also had an episode of diarrhea. Respiratory symptoms improved. Still with left ear fullness, buzzing sound and left sided pain but she declined CT face, states the ear drops help for half hour or so. She states she thinks this was all from the excess vomiting at home. She states the iv morphine does not last long but she was trying to hold off as long as possible. She is agreeable to trial of po oxycodone. She is also willing to advance diet and see how that goes. States she also has been ambulating more now. Review of Systems Review of Systems: All systems reviewed & are unremarkable except as noted in Subjective Physical Exam Physical Exam: General: Lying comfortably in bed, not in acute distress, on room air HEENT: EOMI, NEYDA, MMM. Left tragal tenderness. Bilateral ear wax. No ear discharge Chest: Clear breath sounds bilaterally, no wheezes or crackles CVS: Regular rate and rhythm, normal heart sounds, no murmur Abdomen: Soft, not distended, normal bowel sounds Neuro: Awake, alert, oriented, conversing well, non focal Extremities: No cyanosis, clubbing or edema Results & Data Results & Data Vital Signs (Past 12 Hours) Vital Signs Temp Pulse Pulse Resp BP Pulse Ox O2 Del Method 03/02/24 11:19 36.8 C 77 20 141/98 H 99 Room Air 03/02/24 07:28 36.7 C 81 18 142/94 H 100 Room Air 03/02/24 07:25 78 03/02/24 02:53 36.8 C 105 H 18 138/89 97 Room Air Laboratory Results Short CBC 03/01/24 03/02/24 Range/Units 12:32 05:56 WBC 6.97 (4.8-10.8) K/ul Hgb 12.5 12.3 (12.0-16.0) g/dl Hct 36.6 L 35.2 L (37.0-47.0) % Plt Count 255 (130-400) K/uL BMP 03/01/24 03/02/24 12:52 05:56 Sodium 129 L 131 L Potassium 3.4 L 3.0 L Chloride 97 L 97 L Carbon Dioxide 15 L 19 L BUN < 2 L < 2 L Creatinine 0.33 L 0.31 L Glucose 174 H 241 H Calcium 7.9 L 7.8 L Liver Function 03/02/24 Range/Units 05:56 Total Bilirubin 0.3 (0.2-1.0) mg/dl AST 31 (13-39) U/L ALT 29 (7-52) U/L Alkaline Phosphatase 58 (34-104) U/L Albumin 3.3 L (3.4-5.0) gm/dl
[2024-03-02] MEDS: oxyCODONE HCL IR 5 MG TAB (IMMEDIATE RELEASE) PO PRN (21:53)
[2024-03-03 06:59] LABS: Hematocrit (blood only) 33.3 % (37.0-47.0); Hemoglobin 11.8 g/dl (12.0-16.0); Mean Corpuscular Hemoglobin 29.1 pg (25.0-34.0); Mean Corpuscular Hgb Conc 35.4 g/dL (32.0-36.0); Mean Corpuscular Volume 82.2 fL (80.0-100.0); Mean Platelet Volume 9.8 fL (9.4-12.4); Platelet Count 262 K/uL (130-400); RDW Coefficient of Variation 13.2 % (11.5-14.5); RDW Standard Deviation 39.4 fL (36.4-46.3); Red Blood Count 4.05 M/uL (4.20-5.40); White Blood Count 5.89 K/ul (4.8-10.8)
[2024-03-03 07:16] LABS: Alanine Aminotransferase 30 U/L (7-52); Albumin Level 3.1 gm/dl (3.4-5.0); Alkaline Phosphatase 52 U/L (34-104); Anion Gap 14 (3-11); Aspartate Aminotransferase 37 U/L (13-39); BUN Creatinine Ratio 8.7 (10-20); Bilirubin,Total 0.3 mg/dl (0.2-1.0); Blood Urea Nitrogen 2 mg/dl (6-23); C Reactive Protein 4.27 mg/dl (0-0.5); Calcium 8.3 mg/dl (8.6-10.3); Carbon Dioxide 24 mmol/L (21-32); Chloride 97 mmol/L (98-107); Creatinine Clr Calc Pharmacy 252.7 ml/min; Est GFR (African American) > 150.0 ml/min; Est GFR (Non-African American) > 150.0 ml/min; Globulin 3.1 gm/dl (2.5-4.0); Glucose 232 mg/dl (70-99(Fasting)); Lipase 488 U/L (11-82); Magnesium 1.3 mg/dl (1.7-2.4); Phosphorus 2.5 mg/dl (2.5-4.9); Potassium 3.2 mmol/L (3.5-5.1); Sodium 135 mmol/L (136-145); Total Protein 6.2 gm/dl (6.0-8.3)
[2024-03-03] MEDS: POTASSIUM CHLORIDE CRTAB 20 MEQ TABCR PO SCH (08:13)
[2024-03-03] MEDS: MAGNESIUM SULFATE / D5W 1 GM/100 ML BAG IV SCH (08:15)
--- NOTE | 2024-03-03 14:33 | Hospitalist Progress Note ---
Date of Service March 03, 2024 Assessment & Plan (1) Pancreatitis: Plan: 38-year-old female with past medical history significant for diabetes, allergic rhinitis, moderate persistent asthma, heart murmur, hypertension, GERD, chronic neck pain, history of alcoholism, ADHD, depression, depression, general anxiety disorder, currently not on any medication except for medical marijuana states her blood pressure was high immediately after and c urrently not taking medication for blood pressure or diabetes or depression because of no insurance presents with abdominal pain and whole body pain. Patient states since February 04 she is having significant pain all over the body. Patient states she is sober since last 2 years but she drank wine the day [employer] because of stress. CT A/P- 1. Trace amount of edema in the pancreatic head could represent mild acute pancreatitis. Scattered punctate calcifications are present, similar to previous consistent with chronic pancreatitis as well. No pseudocyst or abscess. 2. The previously seen plastic pancreatic duct stent is no longer present. There is a metallic stent in the distal pancreatic duct. The pancreatic duct is dilated measuring 7 mm which is decreased compared to previous when it measured 11 mm and contains gas rather than fluid. 3. There is fatty infiltration of the liver and hepatomegaly with the liver measuring 20 cm craniocaudad. No focal liver lesion is seen. 4. The appendix is normal. Bowel loops are nondilated. No acute inflammatory changes are seen involving the bowel. Echo with no significant abnormality Recurrent acute on chronic pancreatitis, currently in setting of alcohol use- Improving with conservative management. Lipase 1027->535->709->570->488. CT A/P as above. Transaminitis on admission resolved. Anion gap metabolic acidosis on admission is improving which was likely due to starvation ketoacidosis. CRP trending down 10->4.27. - Improving with conservative management- will advance diet to full liquids, continue prn analgesics and antiemetics, gentle IVF for now. Check lipase in am, CRP every other day. - Per GI- "She needs to abstain from ETOH but also will need an ERCP to remove ? exchange pancreatic stent as eventually this could scar and make her situation worse. It seems as if her acute pancreatitis may be improving based on her decreased lipase levels. Would continue to treat as acute pancreatitis with IV hydration and pain control. Hopefully if she improves and her symptoms are back to baseline, she can have an elective OP ERCP to deal with the stent. If, however, she regresses, may need to have her evaluated sooner for possible stent removal. As I do not perform ERCP this would need to be arranged elsewhere by transfer." Hypomagnesemia- Mg 1.3. repleted iv, recheck in am Hypophosphatemia- resolved Hypokalemia- repleted, recheck in am Hyponatremia- resolved History of pancreatic cancer status post pancreatic stent in the past- she has not followed with her [facility] GI as OP and will need follow up upon discharge URI symptoms/left otitis externa ?mastoiditis- Continues to have persistent symptoms despite treatment with ceftriaxone, zyrtec, mucinex, ciprodex ear drops. Will get CT mastoid to look for any complications. DM-2- not on meds due to no insurance. A1c 10.2. Diabetic diet. Continue insulin- adjust as indicated H/o HTN- BP labile, situational due to her emotional status. Will monitor. Nnot on any meds at baseline. DVT prophylaxis- sc Lovenox Disposition- Pending medical stability. CT pending. Time spent- approx 50 mins Admission and Anticipated Discharge Date Admission Date: February 28, 2024 Subjective Patient was seen and examined at bedside. She was emotional and upset regarding her experience in the ED which she was not happy about, as well as some misunderstanding with the nursing on the floor. She was able to tolerate regular diet well without any N/V, although she did have some pain which was not nearly as bad as before. She still has left ear buzzing sound and fullness along with left ear pain, mastoid pain and headache. She is agreeable to getting a CT to look for any complications. No other issues. Review of Systems Review of Systems: All systems reviewed & are unremarkable except as noted in Subjective Physical Exam Physical Exam: General: Lying comfortably in bed, not in acute distress, on room air HEENT: EOMI, NEYDA, MMM. Left tragal and mastoid tenderness. Bilateral ear wax. No ear discharge. Chest: Clear breath sounds bilaterally, no wheezes or crackles CVS: Regular rate and rhythm, normal heart sounds, no murmur Abdomen: Soft, not distended, normal bowel sounds Neuro: Awake, alert, oriented, conversing well, non focal Extremities: No cyanosis, clubbing or edema Results & Data Results & Data Vital Signs (Past 12 Hours) Vital Signs Temp Pulse Pulse Resp BP Pulse Ox O2 Del Method 03/03/24 11:18 36.8 C 122 H 18 176/132 H 100 Room Air 03/03/24 07:35 36.7 C 85 19 130/92 99 Room Air 03/03/24 07:07 78 03/03/24 04:00 36.9 C 65 20 147/101 H 97 Room Air Laboratory Results Short CBC 03/03/24 Range/Units 06:11 WBC 5.89 (4.8-10.8) K/ul Hgb 11.8 L (12.0-16.0) g/dl Hct 33.3 L (37.0-47.0) % Plt Count 262 (130-400) K/uL BMP 03/03/24 06:11 Sodium 135 L Potassium 3.2 L Chloride 97 L Carbon Dioxide 24 BUN 2 L Creatinine 0.23 L Glucose 232 H Calcium 8.3 L Liver Function 03/03/24 Range/Units 06:11 Total Bilirubin 0.3 (0.2-1.0) mg/dl AST 37 (13-39) U/L ALT 30 (7-52) U/L Alkaline Phosphatase 52 (34-104) U/L Albumin 3.1 L (3.4-5.0) gm/dl
[2024-03-03] MEDS: OPTIRAY 320 100ml IV ONE (16:42)
--- NOTE | 2024-03-03 17:28 | CT Scan Report ---
CT mastoid w con CT DOSE: 544.22 mGy.cm CLINICAL HISTORY: persistent left ear/mastoid pain with headache TECHNIQUE: Multiaxial CT images of the temporal bones were performed and reformatted in the sagittal and coronal plane the workstation following the use of intravenous contrast. A dose lowering techniq ue was utilized adhering to the principles of ALARA. COMPARISON STUDY: Head CT 03/10/2022. FINDINGS: Complete opacification of the visualized frontal sinuses, majority of the ethmoid air cells , and maxillary sinuses. Partial opacification with fluid levels within the sphenoid sinuses. Finding s are consistent with acute on chronic pansinusitis. The visualized brain parenchyma is unremarkable. The left external auditory canal is patent. Small amount of fluid within the left middle ear cavity. The ossicles appear intact. No evidence for inner ear dysplasia. The 7th cranial nerve describes a no rmal course. There is a moderate left mastoid effusion. No erosive changes identified. Small amount o f fluid/soft tissue in Prussak's space without surrounding erosive change. The scutum appears intact. Small amount of debris within the right external auditory canal. The right middle ear cavity and mast oid air cells are clear. The ossicles are intact. No evidence for inner ear dysplasia. The 7th crania l nerve describes a normal course. The scutum is intact. IMPRESSION: 1. Acute on chronic pansinusitis. 2. Moderate left mastoid effusion with a small amount of fluid within the left middle ear cavity. 3. Small amount of fluid/soft tissue within the left Prussak's space without surrounding erosive be ge suggest a cholesteatoma. The scutum appears intact. 2. Normal right temporal bone. ACT 112: Negative or not required by law. Electronically signed by: Kadeem Graff M.D. 03/03/2024 5:25 PM
[2024-03-03] MEDS: FAMOTIDINE 20 MG TAB PO SCH (21:02)
[2024-03-04] MEDS: ACETAMINOPHEN 325 MG TAB PO PRN (02:54)
[2024-03-04 07:28] LABS: Anion Gap 12 (3-11); BUN Creatinine Ratio 18.6 (10-20); Blood Urea Nitrogen 8 mg/dl (6-23); Carbon Dioxide 24 mmol/L (21-32); Chloride 98 mmol/L (98-107); Creatinine Clr Calc Pharmacy 135.2 ml/min; Est GFR (African American) > 150.0 ml/min; Est GFR (Non-African American) 129.9 ml/min; Lipase 716 U/L (11-82); Magnesium 1.6 mg/dl (1.7-2.4); Phosphorus 3.3 mg/dl (2.5-4.9); Potassium 4.2 mmol/L (3.5-5.1); Sodium 134 mmol/L (136-145)
[2024-03-04 07:42] LABS: Glucose 324 mg/dl (70-99(Fasting))
[2024-03-04] MEDS: LACTATED RINGER'S 1,000 ML IV SCH (08:50)
[2024-03-04] MEDS: MAGNESIUM SULFATE / D5W 1 GM/100 ML BAG IV ONE (08:50)
--- NOTE | 2024-03-04 12:39 | Hospitalist Progress Note ---
Date of Service March 04, 2024 Assessment & Plan (1) Pancreatitis: Plan: 38-year-old female with past medical history significant for diabetes, allergic rhinitis, moderate persistent asthma, heart murmur, hypertension, GERD, chronic neck pain, history of alcoholism, ADHD, depression, depression, general anxiety disorder, currently not on any medication except for medical marijuana states her blood pressure was high immediately after and c urrently not taking medication for blood pressure or diabetes or depression because of no insurance presents with abdominal pain and whole body pain. Patient states since February 04 she is having significant pain all over the body. 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 CT A/P- 1. Trace amount of edema in the pancreatic head could represent mild acute pancreatitis. Scattered punctate calcifications are present, similar to previous consistent with chronic pancreatitis as well. No pseudocyst or abscess. 2. The previously seen plastic pancreatic duct stent is no longer present. There is a metallic stent in the distal pancreatic duct. The pancreatic duct is dilated measuring 7 mm which is decreased compared to previous when it measured 11 mm and contains gas rather than fluid. 3. There is fatty infiltration of the liver and hepatomegaly with the liver measuring 20 cm craniocaudad. No focal liver lesion is seen. 4. The appendix is normal. Bowel loops are nondilated. No acute inflammatory changes are seen involving the bowel. CT mastoid/head 1. Acute on chronic pansinusitis. 2. Moderate left mastoid effusion with a small amount of fluid within the left middle ear cavity. 3. Small amount of fluid/soft tissue within the left Prussak's space without surrounding erosive change suggest a cholesteatoma. The scutum appears intact. 2. Normal right temporal bone. Echo with no significant abnormality Recurrent acute on chronic pancreatitis, currently in setting of alcohol use- Improving with conservative management. Lipase 1027->535->709->570->488->716. CT A/P as above. Transaminitis on admission resolved. Anion gap metabolic acidosis on admission is improving which was likely due to starvation ketoacidosis. CRP trending down 10->4.27->2.57. - With worsening lipase along with reproducible pain with solid food, will change solid food to liquids, continue IVF and recheck labs in the morning. Will reconsult GI if worsens despite this. - Per GI- "She needs to abstain from ETOH but also will need an ERCP to remove ? exchange pancreatic stent as eventually this could scar and make her situation worse. It seems as if her acute pancreatitis may be improving based on her decreased lipase levels. Would continue to treat as acute pancreatitis with IV hydration and pain control. Hopefully if she improves and her symptoms are back to baseline, she can have an elective OP ERCP to deal with the stent. If, however, she regresses, may need to have her evaluated sooner for possible stent removal. As I do not perform ERCP this would need to be arranged elsewhere by transfer." Hypomagnesemia- Mg 1.6. repleted, recheck in am Hypophosphatemia- resolved Hypokalemia- Resolved Hyponatremia- resolved. corrects for hyperglycemia History of pancreatic cancer status post pancreatic stent in the past- she has not followed with her [facility] as OP and will need follow up upon discharge URI symptoms/Acute on chronic pansinusitis/Mastoid effusion with cholesteatoma- CT mastoid as above. Symptoms stable with current management. Continue with ceftriaxone, zyrtec, mucinex, ciprodex ear drops. Will consult ENT for recommendations as persistent symptoms, [place] as patient has no insurance and may not follow up with ENT. DM-2- not on meds due to no insurance. A1c 10.2. Diabetic diet. Continue insulin- adjust as indicated H/o HTN- BP labile, situational due to her emotional status. Will monitor. Nnot on any meds at baseline. DVT prophylaxis- sc Lovenox Disposition- Pending medical stability. CT pending. Time spent- approx 50 mins Admission and Anticipated Discharge Date Admission Date: February 28, 2024 Subjective Patient was seen and examined at bedside. She feels okay. She does get abdominal pain ready to go back with oral intake, but not as bad. No nausea or vomiting. Her ear symptoms are improved. No fever, chills. discussed ordered labs and imaging, With elevated lipase and pain with eating, will cut down on the diet and she is agreeable. Review of Systems Review of Systems: All systems reviewed & are unremarkable except as noted in Subjective Physical Exam Physical Exam: General: Lying comfortably in bed, not in acute distress, on room air HEENT: EOMI, ENYDA, MMM. Left tragal and mastoid tenderness. Bilateral ear wax. No ear discharge. Chest: Clear breath sounds bilaterally, no wheezes or crackles CVS: Regular rate and rhythm, normal heart sounds, no murmur Abdomen: Soft, not distended, normal bowel sounds Neuro: Awake, alert, oriented, conversing well, non focal Extremities: No cyanosis, clubbing or edema Results & Data Results & Data Vital Signs (Past 12 Hours) Vital Signs Temp Pulse Pulse Resp BP Pulse Ox O2 Del Method 03/04/24 08:05 36.3 C L 99 H 18 143/92 H 100 Room Air 03/04/24 07:36 86 03/04/24 03:50 36.6 C 99 H 18 138/91 100 Room Air Laboratory Results [facility] 03/04/24 06:03 Sodium 134 L Potassium 4.2 D Chloride 98 Carbon Dioxide 24 BUN 8 Creatinine 0.43 L Glucose 324 H* Calcium 9.0
[2024-03-04] MEDS: LANTUS PER UNIT CHARGE SC SCH (14:21)
[2024-03-05 06:42] LABS: Alanine Aminotransferase 32 U/L (7-52); Albumin Level 3.2 gm/dl (3.4-5.0); Alkaline Phosphatase 52 U/L (34-104); Anion Gap 7 (3-11); Aspartate Aminotransferase 34 U/L (13-39); BUN Creatinine Ratio 7.7 (10-20); Bilirubin,Total 0.2 mg/dl (0.2-1.0); Blood Urea Nitrogen 3 mg/dl (6-23); Calcium 9.2 mg/dl (8.6-10.3); Carbon Dioxide 28 mmol/L (21-32); Chloride 102 mmol/L (98-107); Est GFR (African American) > 150.0 ml/min; Est GFR (Non-African American) 134.2 ml/min; Globulin 3.2 gm/dl (2.5-4.0); Glucose 195 mg/dl (70-99(Fasting)); Lipase 365 U/L (11-82); Magnesium 1.3 mg/dl (1.7-2.4); Phosphorus 3.5 mg/dl (2.5-4.9); Potassium 4.3 mmol/L (3.5-5.1); Sodium 137 mmol/L (136-145); Total Protein 6.4 gm/dl (6.0-8.3)
[2024-03-05] MEDS: MAGNESIUM SULFATE / D5W 1 GM/100 ML BAG IV SCH (09:35)
--- NOTE | 2024-03-05 12:43 | Hospitalist Progress Note ---
Date of Service March 05, 2024 Assessment & Plan (1) Pancreatitis: Plan: 38-year-old female with past medical history significant for diabetes, allergic rhinitis, moderate persistent asthma, heart murmur, hypertension, GERD, chronic neck pain, history of alcoholism, ADHD, depression, depression, general anxiety disorder, currently not on any medication except for medical marijuana states her blood pressure was high immediately after and c urrently not taking medication for blood pressure or diabetes or depression because of no insurance presents with abdominal pain and whole body pain. Patient states since February 04 she is having significant pain all over the body. 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 CT A/P- 1. Trace amount of edema in the pancreatic head could represent mild acute pancreatitis. Scattered punctate calcifications are present, similar to previous consistent with chronic pancreatitis as well. No pseudocyst or abscess. 2. The previously seen plastic pancreatic duct stent is no longer present. There is a metallic stent in the distal pancreatic duct. The pancreatic duct is dilated measuring 7 mm which is decreased compared to previous when it measured 11 mm and contains gas rather than fluid. 3. There is fatty infiltration of the liver and hepatomegaly with the liver measuring 20 cm craniocaudad. No focal liver lesion is seen. 4. The appendix is normal. Bowel loops are nondilated. No acute inflammatory changes are seen involving the bowel. CT mastoid/head 1. Acute on chronic pansinusitis. 2. Moderate left mastoid effusion with a small amount of fluid within the left middle ear cavity. 3. Small amount of fluid/soft tissue within the left Prussak's space without surrounding erosive change suggest a cholesteatoma. The scutum appears intact. 2. Normal right temporal bone. Echo with no significant abnormality Recurrent acute on chronic pancreatitis, currently in setting of alcohol use- Improving with conservative management. Lipase 1027->535->709->570->488->716->365. CT A/P as above. Transaminitis on admission resolved. Anion gap metabolic acidosis on admission resolved which was likely due to starvation ketoacidosis. CRP trending down 10->4.27->2.57. - With improving lipase and improving symptoms, will advance diet today and see how see does. Continue gentle IVF and recheck labs in the morning. Will reconsult GI if worsens - Per GI- "She needs to abstain from ETOH but also will need an ERCP to remove ? exchange pancreatic stent as eventually this could scar and make her situation worse. It seems as if her acute pancreatitis may be improving based on her decreased lipase levels. Would continue to treat as acute pancreatitis with IV hydration and pain control. Hopefully if she improves and her symptoms are back to baseline, she can have an elective OP ERCP to deal with the stent. If, however, she regresses, may need to have her evaluated sooner for possible stent removal. As I do not perform ERCP this would need to be arranged elsewhere by transfer." Hypomagnesemia- Mg 1.3. repleted IV, recheck in am Hypophosphatemia- resolved Hypokalemia- Resolved Hyponatremia- resolved. History of pancreatic cancer status post pancreatic stent in the past- she has not followed with her [facility] as OP and will need follow up upon discharge URI symptoms/Acute on chronic pansinusitis/Mastoid effusion with cholesteatoma- CT mastoid as above. Symptoms stable to improving with current management. Continue with ceftriaxone, zyrtec, mucinex, ciprodex ear drops. Consulted ENT, however they would like to follow the patient as OP. Patient is agreeable. DM-2- A1c 10.2. Diabetic diet. Continue insulin- adjust as indicated H/o HTN- BP stable, not on meds. DVT prophylaxis- sc Lovenox Disposition- Anticipate discharge home tomorrow if continues to improve and tolerates diet Time spent- approx 40 mins Admission and Anticipated Discharge Date Admission Date: February 28, 2024 Subjective Patient was seen and examined at bedside. She feels better today. Her pain is better. Her lipase is improved. No N/V/ She feels ready to advance diet today and stay in limit. Her ear symptoms are improving. Review of Systems Review of Systems: All systems reviewed & are unremarkable except as noted in Subjective Physical Exam Physical Exam: General: Lying comfortably in bed, not in acute distress, on room air HEENT: EOMI, NEYDA, MMM. Left tragal and mastoid tenderness. Bilateral ear wax. No ear discharge. Chest: Clear breath sounds bilaterally, no wheezes or crackles CVS: Regular rate and rhythm, normal heart sounds, no murmur Abdomen: Soft, not distended, normal bowel sounds Neuro: Awake, alert, oriented, conversing well, non focal Extremities: No cyanosis, clubbing or edema Results & Data Results & Data Vital Signs (Past 12 Hours) Vital Signs Temp Pulse Pulse Resp BP Pulse Ox O2 Del Method 03/05/24 11:52 36.8 C 89 18 129/90 100 Room Air 03/05/24 07:31 36.7 C 81 16 131/89 100 Room Air 03/05/24 07:20 75 03/05/24 03:31 36.8 C 71 16 113/76 100 Room Air Laboratory Results [facility] 03/05/24 05:34 Sodium 137 Potassium 4.3 Chloride 102 Carbon Dioxide 28 BUN 3 L Creatinine 0.39 L Glucose 195 H Calcium 9.2 Liver Function 03/05/24 Range/Units 05:34 Total Bilirubin 0.2 (0.2-1.0) mg/dl AST 34 (13-39) U/L ALT 32 (7-52) U/L Alkaline Phosphatase 52 (34-104) U/L Albumin 3.2 L (3.4-5.0) gm/dl
[2024-03-06 08:04] LABS: Hematocrit (blood only) 34.2 % (37.0-47.0); Hemoglobin 11.5 g/dl (12.0-16.0); Mean Corpuscular Hemoglobin 28.3 pg (25.0-34.0); Mean Corpuscular Hgb Conc 33.6 g/dL (32.0-36.0); Mean Corpuscular Volume 84.2 fL (80.0-100.0); Mean Platelet Volume 9.8 fL (9.4-12.4); Platelet Count 337 K/uL (130-400); RDW Coefficient of Variation 14.2 % (11.5-14.5); RDW Standard Deviation 43.5 fL (36.4-46.3); Red Blood Count 4.06 M/uL (4.20-5.40); White Blood Count 5.39 K/ul (4.8-10.8)
[2024-03-06 08:29] LABS: Anion Gap 5 (3-11); BUN Creatinine Ratio 18.8 (10-20); Blood Urea Nitrogen 9 mg/dl (6-23); C Reactive Protein < 0.50 mg/dl (0-0.5); Calcium 8.8 mg/dl (8.6-10.3); Carbon Dioxide 29 mmol/L (21-32); Chloride 101 mmol/L (98-107); Creatinine Clr Calc Pharmacy 121.1 ml/min; Est GFR (African American) 145.2 ml/min; Est GFR (Non-African American) 125.3 ml/min; Glucose 354 mg/dl (70-99(Fasting)); Lipase 374 U/L (11-82); Magnesium 1.5 mg/dl (1.7-2.4); Potassium 4.4 mmol/L (3.5-5.1); Sodium 135 mmol/L (136-145)
[2024-03-06] MEDS: MAGNESIUM SULFATE / D5W 1 GM/100 ML BAG IV SCH (12:46)
--- NOTE | 2024-03-06 13:35 | Discharge Summary ---
Date of Service March 06, 2024 Admission HPI Per Admitting Provider 38-year-old female with past medical history significant for diabetes, allergic rhinitis, moderate persistent asthma, heart murmur, hypertension, GERD, chronic neck pain, history of alcoholism, ADHD, depression, depression, general anxiety disorder, currently not on any medication except for medical marijuana states her blood pressure was high immediately after and currently not taking medication for blood pressure or diabetes or depression because of no insurance presents with abdominal pain and whole body pain. Patient states since February 04 she is having significant pain all over the body. She had headache.. Neck pain. Some chest pain. Having severe abdominal pains. The pain is not getting better so she came to the hospital today. Yesterday she has a episode of fever. She also a lot of nausea and vomiting. Not eating much. Having cough bringing up phlegm. Some runny nose. Some sore throat . Normal bowel and bladder movements. Hemodynamics are okay currently. Patient states she is sober since last 2 years but yesterday she drank wine because of stress. Past medical history. As mentioned above. Past surgical history. . Dental surgery. EGD with endoscopic ultrasound. ERCP. Social history. Quit smoking 2021. Smoked 4 to 5 cigarettes a day. As per epic did not drink alcohol since May 2022 but patient states significant she drank wine yesterday. Uses marijuana. Family history. Patient was adopted. Admission Exam Per Admitting Provider General- Not in distress Head- atraumatic Eyes- PERRL. ENT- oropharynx clear Neck- supple, no JVD. Lungs- clear to auscultation no wheezing or crackles. Heart- regular rhythm; no murmur, no gallop. Abdomen- normal bowel sounds, soft, diffuse tender no distension, no rigidity Extremities- no pretibial edema, no erythema seen. Neuro- alert, oriented PERRL, EOMI; no facial palsy; no dysarthria; moves extr emnities. Principal Diagnosis Recurrent acute on chronic pancreatitis, DM-2, Mastoid effusion/OME Discharge Exam General: Lying comfortably in bed, not in acute distress, on room air HEENT: EOMI, NEYDA, MMM. Left tragal and mastoid tenderness is significantly improved. Bilateral ear wax. No ear discharge. Chest: Clear breath sounds bilaterally, no wheezes or crackles CVS: Regular rate and rhythm, normal heart sounds, no murmur Abdomen: Soft, non tender, non distended, normal bowel sounds Neuro: Awake, alert, oriented, conversing well, non focal Extremities: No cyanosis, clubbing or edema Discharge Data Allergies Allergy/AdvReac Type Severity Reaction Status Date / Time bee venom protein (honey bee) Allergy Severe ANAPHYLAXIS Verified 02/28/24 19:55 Consultations 02/28/24 20:05 ED Decision to Admit Stat 02/29/24 08:00 Consult Gastroenterology Routine 03/03/24 11:26 Consult Patient Rep [Consult Patient Services] Routine Ordered Studies 02/28/24 18:25 CT abd pelvis IV con only Stat 03/03/24 14:23 CT mastoid w con Routine Laboratory Results WBC 5.39 K/ul (4.8-10.8) 03/06/24 06:52 RBC 4.06 M/uL (4.20-5.40) L 03/06/24 06:52 Hgb 11.5 g/dl (12.0-16.0) L 03/06/24 06:52 Hct 34.2 % (37.0-47.0) L 03/06/24 06:52 MCV 84.2 fL (80.0-100.0) 03/06/24 06:52 MCH 28.3 pg (25.0-34.0) 03/06/24 06:52 MCHC 33.6 g/dL (32.0-36.0) 03/06/24 06:52 RDW Std Deviation 43.5 fL (36.4-46.3) 03/06/24 06:52 RDW Coeff of Arnold 14.2 % (11.5-14.5) 03/06/24 06:52 Plt Count 337 K/uL (130-400) 03/06/24 06:52 MPV 9.8 fL (9.4-12.4) 03/06/24 06:52 Immature Gran % (Auto) 0.4 % 02/29/24 05:33 Neut % (Auto) 83.2 % 02/29/24 05:33 Lymph % (Auto) 9.7 % 02/29/24 05:33 [place] % (Auto) 6.1 % 02/29/24 05:33 Eos % (Auto) 0.3 % 02/29/24 05:33 Baso % (Auto) 0.3 % 02/29/24 05:33 Neut # (Auto) 9.87 K/uL (1.40-6.50) H 02/29/24 05:33 Lymph # (Auto) 1.15 K/uL (1.20-3.40) L 02/29/24 05:33 [place] # (Auto) 0.72 K/uL (0.11-0.59) H 02/29/24 05:33 Eos # (Auto) 0.04 K/uL (0.00-0.50) 02/29/24 05:33 Baso # (Auto) 0.03 K/uL (0.00-0.20) 02/29/24 05:33 Immature Gran # (Auto) 0.05 K/uL (0.01-0.20) 02/29/24 05:33 Sodium 135 mmol/L (136-145) L 03/06/24 06:52 Potassium 4.4 mmol/L (3.5-5.1) 03/06/24 06:52 Chloride 101 mmol/L (98-107) 03/06/24 06:52 Carbon Dioxide 29 mmol/L (21-32) 03/06/24 06:52 Anion Gap 5 (3-11) 03/06/24 06:52 BUN 9 mg/dl (6-23) 03/06/24 06:52 Creatinine 0.48 mg/dl (0.6-1.2) L 03/06/24 06:52 Est Cr Clr Drug Dosing 121.1 ml/min 03/06/24 06:52 Est GFR ( Amer) 145.2 ml/min 03/06/24 06:52 Est GFR (Non-Af Amer) 125.3 ml/min 03/06/24 06:52 BUN/Creatinine Ratio 18.8 (10-20) 03/06/24 06:52 Glucose 354 mg/dl (70-99(Fasting)) H* 03/06/24 06:52 POC Glucose 128 mg/dl (70-99) H 03/06/24 11:40 Estimat Average Glucose 246 mg/dl 02/29/24 05:33 Hemoglobin A1c 10.2 % (4.5-5.6) H 02/29/24 05:33 Calcium 8.8 mg/dl (8.6-10.3) 03/06/24 06:52 Phosphorus 3.5 mg/dl (2.5-4.9) 03/05/24 05:34 Magnesium 1.5 mg/dl (1.7-2.4) L 03/06/24 06:52 Total Bilirubin 0.2 mg/dl (0.2-1.0) 03/05/24 05:34 Direct Bilirubin 0.2 mg/dl (0-0.2) 02/29/24 05:33 AST 34 U/L (13-39) 03/05/24 05:34 ALT 32 U/L (7-52) 03/05/24 05:34 Alkaline Phosphatase 52 U/L (34-104) 03/05/24 05:34 Troponin I High Sens 5.0 pg/ml (0-14) 02/29/24 17:06 C-Reactive Protein < 0.50 mg/dl (0-0.5) 03/06/24 06:52 Total Protein 6.4 gm/dl (6.0-8.3) 03/05/24 05:34 Albumin 3.2 gm/dl (3.4-5.0) L 03/05/24 05:34 Globulin 3.2 gm/dl (2.5-4.0) 03/05/24 05:34 Albumin/Globulin Ratio 1.0 (0.9-2) 03/05/24 05:34 Lipase 374 U/L (11-82) H 03/06/24 06:52 Glucagon Cancelled 03/01/24 12:52 HCG, Qual Negative (Negative) 02/28/24 16:35 Urine Color Yellow 02/28/24 19:47 Urine Appearance Clear (Clear) 02/28/24 19:47 Urine pH 5.5 (4.5-7.5) 02/28/24 19:47 Ur Specific [place] > 1.045 (1.000-1.030) H 02/28/24 19:47 Urine Protein 3+ (Negative) H 02/28/24 19:47 Urine Glucose (UA) 2+ (Negative) H 02/28/24 19:47 Urine Ketones 3+ (Negative) H 02/28/24 19:47 Urine Blood 2+ (Negative) H 02/28/24 19:47 Urine Nitrite Negative (Negative) 02/28/24 19:47 Urine Bilirubin Negative (Negative) 02/28/24 19:47 Urine Urobilinogen Negative (Negative) 02/28/24 19:47 Ur Leukocyte Esterase Negative (Negative) 02/28/24 19:47 Urine WBC (Auto) 0-5 /hpf (0-5) 02/28/24 19:47 Urine RBC (Auto) 0-2 /hpf (0-2) 02/28/24 19:47 U Hyaline Cast (Auto) 0-2 /lpf (0-2) 02/28/24 19:47 U Epithel Cells (Auto) 3-5 /hpf (0-2) H 02/28/24 19:47 Urine Bacteria (Auto) 1+ (None Seen) H 02/28/24 19:47 Impressions Abdomen/Pelvis CT 02/28/24 18:25 Exam(s): CT ABDOMEN + PELVIS With Contrast IV Amt: 92 cc opti 320 EXAM: CT Abdomen and Pelvis With Intravenous Contrast CLINICAL HISTORY: Reason for exam: Pancreatitis, RUQ/epigastric pain. TECHNIQUE: Axial computed tomography images of the abdomen and pelvis with intravenous contrast. CTDI is 8.05 mGy and DLP is 392.53 mGy-cm. Automated exposure control was utilized for the study. A dose lowering technique was utilized adhering to the principles of ALARA. CONTRAST: Patient received 92 cc Optiray 320 of IV contrast COMPARISON: August 30, 2023 FINDINGS: Lung bases: Unremarkable. No mass. No consolidation. ABDOMEN: Liver: There is fatty infiltration of the liver and hepatomegaly with the liver measuring 20 cm craniocaudad. No focal liver lesion is seen. Gallbladder and bile ducts: Unremarkable. No calcified stones. No ductal dilation. Pancreas: Trace amount of edema in the pancreatic head could represent mild acute pancreatitis. Scattered punctate calcifications are present, similar to previous consistent with chronic pancreatitis as well. No pseudocyst or abscess. The previously seen plastic pancreatic duct stent is no longer present. There is a metallic stent in the distal pancreatic duct. Duct is dilated measuring 7 mm which is decreased compared to previous when it measured 11 mm and contains gas rather than fluid. Spleen: Unremarkable. No splenomegaly. Adrenals: Unremarkable. No mass. Kidneys and ureters: Unremarkable. No solid mass. No hydronephrosis. Stomach and bowel: Unremarkable. No obstruction. No mucosal thickening. PELVIS: Appendix: The appendix is normal. Bowel loops are nondilated. No acute inflammatory changes are seen involving the bowel. Bladder: Unremarkable. No mass. Reproductive: There is a 1.3 cm calcified fibroid in the uterus. No free fluid in the pelvis. ABDOMEN and PELVIS: Intraperitoneal space: See above. Bones/joints: Moderate degenerative changes in the lumbar spine. No acute fracture or subluxation. Soft tissues: Unremarkable. Vasculature: Unremarkable. No abdominal aortic aneurysm. Lymph nodes: Unremarkable. No enlarged lymph nodes. IMPRESSION: 1. Trace amount of edema in the pancreatic head could represent mild acute pancreatitis. Scattered punctate calcifications are present, similar to previous consistent with chronic pancreatitis as well. No pseudocyst or abscess. 2. The previously seen plastic pancreatic duct stent is no longer present. There is a metallic stent in the distal pancreatic duct. The pancreatic duct is dilated measuring 7 mm which is decreased compared to previous when it measured 11 mm and contains gas rather than fluid. 3. There is fatty infiltration of the liver and hepatomegaly with the liver measuring 20 cm craniocaudad. No focal liver lesion is seen. 4. The appendix is normal. Bowel loops are nondilated. No acute inflammatory changes are seen involving the bowel. Electronically signed by: Nirmal Aaron MD 02/28/24 19:44 PM Head/Mastoid CT 03/03/24 14:23 CT mastoid w con CT DOSE: 544.22 mGy.cm CLINICAL HISTORY: persistent left ear/mastoid pain with headache TECHNIQUE: Multiaxial CT images of the temporal bones were performed and reformatted in the sagittal and coronal plane the workstation following the use of intravenous contrast. A dose lowering technique was utilized adhering to the principles of ALARA. COMPARISON STUDY: Head CT 03/10/2022. FINDINGS: Complete opacification of the visualized frontal sinuses, majority of the ethmoid air cells, and maxillary sinuses. Partial opacification with fluid levels within the sphenoid sinuses. Findings are consistent with acute on chronic pansinusitis. The visualized brain parenchyma is unremarkable. The left external auditory canal is patent. Small amount of fluid within the left middle ear cavity. The ossicles appear intact. No evidence for inner ear dysplasia. The 7th cranial nerve describes a normal course. There is a moderate left mastoid effusion. No erosive changes identified. Small amount of fluid/soft tissue in Prussak's space without surrounding erosive change. The scutum appears intact. Small amount of debris within the right external auditory canal. The right middle ear cavity and mastoid air cells are clear. The ossicles are intact. No evidence for inner ear dysplasia. The 7th cranial nerve describes a normal course. The scutum is intact. IMPRESSION: 1. Acute on chronic pansinusitis. 2. Moderate left mastoid effusion with a small amount of fluid within the left middle ear cavity. 3. Small amount of fluid/soft tissue within the left Prussak's space without surrounding erosive change suggest a cholesteatoma. The scutum appears intact. 2. Normal right temporal bone. ACT 112: Negative or not required by law. Electronically signed by: Kadeem Graff M.D. 03/03/2024 5:25 PM Hospital Course (1) Pancreatitis: 38-year-old female with past medical history significant for diabetes, allergic rhinitis, moderate persistent asthma, heart murmur, hypertension, GERD, chronic neck pain, history of alcoholism, ADHD, depression, depression, general anxiety disorder, currently not on any medication except for medical marijuana states her blood pressure was high immediately after and currently not taking medication for blood pressure or diabetes or depression because of no insurance presents with abdominal pain and whole body pain. Patient states since February 04 she is having significant pain all over the body. Patient states she is sober since last 2 years but she drank wine the day [employer] because of stress. CT A/P- 1. Trace amount of edema in the pancreatic head could represent mild acute pancreatitis. Scattered punctate calcifications are present, similar to previous consistent with chronic pancreatitis as well. No pseudocyst or abscess. 2. The previously seen plastic pancreatic duct stent is no longer present. There is a metallic stent in the distal pancreatic duct. The pancreatic duct is dilated measuring 7 mm which is decreased compared to previous when it measured 11 mm and contains gas rather than fluid. 3. There is fatty infiltration of the liver and hepatomegaly with the liver measuring 20 cm craniocaudad. No focal liver lesion is seen. 4. The appendix is normal. Bowel loops are nondilated. No acute inflammatory changes are seen involving the bowel. CT mastoid/head 1. Acute on chronic pansinusitis. 2. Moderate left mastoid effusion with a small amount of fluid within the left middle ear cavity. 3. Small amount of fluid/soft tissue within the left Prussak's space without surrounding erosive change suggest a cholesteatoma. The scutum appears intact. 2. Normal right temporal bone. Echo with no significant abnormality Recurrent acute on chronic pancreatitis, currently in setting of alcohol use- Improving with conservative management. Lipase 1027->535->709->570->488->716->365->374. CT A/P as above. Transaminitis on admission resolved. Anion gap metabolic acidosis on admission resolved which was likely due to starvation ketoacidosis. CRP trending down 10->4.27->2.57-> <0.5 - Per GI- "She needs to abstain from ETOH but also will need an ERCP to remove ? exchange pancreatic stent as eventually this could scar and make her situation worse. It seems as if her acute pancreatitis may be improving based on her decreased lipase levels. Would continue to treat as acute pancreatitis with IV hydration and pain control. Hopefully if she improves and her symptoms are back to baseline, she can have an elective OP ERCP to deal with the stent. If, however, she regresses, may need to have her evaluated sooner for possible stent removal. As I do not perform ERCP this would need to be arranged elsewhere by transfer." - Symptoms significantly improved, tolerating diet well with no N/V and anxious to go home. Discharging on prn zofran, oxy. - Recommended follow up with her GI doctor as soon as possible as she is overdue for ERCP stent removal Hypomagnesemia- improved, repleted iv. Also discharging on po supplementation. OP follow up with PCP Hypophosphatemia- resolved Hypokalemia- Resolved Hyponatremia- resolved. History of pancreatic cancer status post pancreatic stent in the past- she has not followed with her [facility] GI as OP and will need follow up upon discharge URI symptoms/Acute on chronic pansinusitis/OME with mastoid effusion with cholesteatoma- CT mastoid as above. Symptoms improving. S/p empiric ceftriaxone, zyrtec, mucinex, ciprodex ear drops. ENT recommended OP follow up. DM-2- A1c 10.2. Diabetic diet. Continue insulin at discharge. Patient states she has insulin at home with her. H/o HTN- BP stable, not on meds. Total Time Total Time Spent Total Time Spent (In Minutes): 35 Discharge Plan Discharge Items Patient Disposition: Home - Self-Care Reason For Visit: PANCREATITIS, CHEST PAIN Discharge Diagnosis: Recurrent acute on chronic pancreatitis, DM-2, Mastoid effusion/OME Activity: Resume your previous activity Non-emergency contact: Primary Care Provider Call non-emergency contact if: you have any medication questions, your symptoms worsen, your pain is concerning for you and you have a fever Follow-up/Referrals: Harinder Nathan DO [Primary Care Provider] - (Date & Time 03/08/2024 9:00 AM Provider Dominguez Atwood MD Department [facility] ) Aster Nielsen MD [Physician] - (The GI office will contact you to schedule an appointment for stent removal. ) Carito Mccollum MD [Surgeon] - (The [facility] ENT office left a message for you to return their call to schedule an appointment . Please call them at your earliest convenience. ) Diet: Carb Consistent or DM2 and Full liquid Addtl Attending Provider Instructions: Continue augmentin. Follow up with ENT and family doctor Continue oxycodone as needed for pain and zofran as needed for nausea Follow up with GI doctor as soon as possible for removal of stent Continue insulin Diet as tolerated Pending Studies at Discharge: No Stand-Alone Forms: [employer], Work/School Release, Smoking Cessation Medications and DC Order Prescriptions: New loratadine [Wal-itin] 10 mg Tablet 10 mg PO HS Qty: 7 0RF oxycodone 5 mg Tablet 5 mg PO TID PRN (Reason: pain) 4 Days Qty: 10 0RF guaifenesin [Mucinex] 600 mg Tablet Extended Release 12hr 600 mg PO Q12 5 Days Qty: 10 0RF magnesium chloride 64 mg tablet,delayed release (DR/EC) 64 mg PO DAILY Qty: 30 0RF ondansetron 4 mg tablet,disintegrating 4 mg PO Q8H PRN (Reason: nausea and vomiting) 4 Days Qty: 10 0RF amoxicillin-pot clavulanate 875-125 mg tablet 1 tab PO BID 5 Days Qty: 10 0RF insulin glargine [Lantus U-100 Insulin] 100 unit/mL Solution 12 unit SC DAILY Qty: 10 0RF insulin aspart U-100 [Novolog U-100 Insulin aspart] 100 unit/mL Solution 5 unit SC ACHS Qty: 10 0RF pantoprazole 40 mg tablet,delayed release (DR/EC) 40 mg PO DAILY Qty: 30 0RF Continued epinephrine 0.3 mg/0.3 mL auto-injector 0.3 mg IM UD PRN (Reason: Allergic Reaction) Rx Instructions: STILL CARRIES A PEN Medical Marijuana 1 dose inhalation HS PRN (Reason: Sleep) Rx Instructions: STILL USES Discharge Orders: Discharge Order (Routine); Ordered 03/06/24 Ordered By: Jack Dominguez Admission Data Admit Date/Time: 02/28/24 23:23 Attending Provider: Jack Dominguez Admit Provider: Sherwin Ibanez Primary Care Provider: Harinder Nathan Other Providers: Sherwin Ibanez; Kanu Philippe
== END 2024-03-06 15:30 | disposition home or self-care (01) | DRG 439 ==
LOC: ED 15:57 → EDINP 23:23 → SUATTDRO 23:23 → EDINP 02-29 14:06 → 2W 02-29 14:45

== ENCOUNTER 2024-04-19 15:10 | Inpatient (IN) ==
[2024-04-19] MEDS ORDERED: CARBOHYDRATES FOR HYPOGLYCEMIA PO PRN (15:44)
[2024-04-19] MEDS ORDERED: GLUCOSE 40% GEL 15 GM TUBE PO PRN (15:44)
[2024-04-19] MEDS ORDERED: DEXTROSE 50% 50 ML SYRINGE IV PRN (15:44)
[2024-04-19] MEDS ORDERED: GLUCAGON FOR INJ 1 MG VIAL SQ PRN (15:44)
[2024-04-19] MEDS: SODIUM CHLORIDE 0.9% 1,000 ML IV ONE (15:44)
[2024-04-19] MEDS ORDERED: GLUCOSE 10 TAB/TUBE PO PRN (15:44)
[2024-04-19] MEDS: PLASMA-LYTE A 1,000 ML IV ONE ×2 (15:53→17:33)
[2024-04-19] MEDS: FAMOTIDINE 20MG IV PUSH 20 MG/5 ML SYR IV STA (16:07)
[2024-04-19 16:13] LABS: Basophils # (auto) 0.05 K/uL (0.00-0.20); Basophils % (auto) 0.3 %; Hematocrit (blood only) 42.2 % (37.0-47.0); Hemoglobin 14.5 g/dl (12.0-16.0); Immature Granulocytes # (auto) 0.13 K/uL (0.01-0.20); Immature Granulocytes % (auto) 0.7 %; Lymphocytes # (auto) 0.65 K/uL (1.20-3.40); Lymphocytes % (auto) 3.6 %; Mean Corpuscular Hemoglobin 30.1 pg (25.0-34.0); Mean Corpuscular Hgb Conc 34.4 g/dL (32.0-36.0); Mean Corpuscular Volume 87.7 fL (80.0-100.0); Monocytes # (auto) 1.05 K/uL (0.11-0.59); Monocytes % (auto) 5.8 %; Neutrophils # (auto) 16.19 K/uL (1.40-6.50); Neutrophils % (auto) 89.6 %; Platelet Count 610 K/uL (130-400); RDW Coefficient of Variation 12.9 % (11.5-14.5); RDW Standard Deviation 41.5 fL (36.4-46.3); Red Blood Count 4.81 M/uL (4.20-5.40); White Blood Count 18.07 K/ul (4.8-10.8)
--- NOTE | 2024-04-19 16:13 | Emergency Department Note ---
Impression & Plan Dyspnea, Abdominal pain, DKA (diabetic ketoacidosis), Pancreatitis, Hypokalemia ED Provider Note ED Provider Note NAME: JULIA WEBB AGE:38 SEX: Female : 1985 ARRIVES VIA: Private vehicle INFORMANT: Patient ED PROVIDER(s): Mary Anne Mcneill DO CHIEF COMPLAINT: Shortness of breath, abdominal pain, nausea and vomiting HPI: This is a 38-year-old female presents emerged primary complaining of shortness of breath, abdominal pain, nausea and vomiting has been going on since she was discharged from the hospital the end of February following an admission for pancreatitis per her report. She states in the last 2 weeks her breathing has become worse. Patient does have a history of diabetes additionally. Patient denies fevers or chills, admits to increased weakness and fatigue. She states she feels very dehydrated and has not been eating and drinking much as she does not have any appetite. She states that is been going on ever since her admission. She has tried to drink fluids however she will occasionally vomit these up. PAST MEDICAL HISTORY:See Below PAST SURGICAL HISTORY:See Below FAMILY HISTORY:See Below SOCIAL HISTORY:See Below HOME MEDICATIONS:See Below ALLERGIES:See Below VITALS:See Below PHYSICAL EXAMINATION: GENERAL: alert, ill appearing, well nourished, no distress, non-toxic EYE EXAM: normal conjunctiva, PERRL and EOM's grossly intact OROPHARYNX: no exudate, no erythema, lips, buccal mucosa, and tongue normal and mucous membranes are dry NECK: supple, no nuchal rigidity, no adenopathy, non-tender LUNGS: Clear to auscultation. Normal chest wall mechanics, no w/r/r, tachypnea, increased work of breathing HEART: no murmurs, S1 normal and S2 normal ABDOMEN: abdomen soft, generalized discomfort with palpation, normo-active bowel sounds, no masses, no rebound or guarding. BACK: Back is symmetrical on inspection and there is no deformity, no midline tenderness, no CVA tenderness. SKIN: no rashes, petechiae, orbruising UPPER EXTREMITIES: upper extremities are grossly normal. FROM, nml pulses b/l. LOWER EXTREMITIES: No pitting edema. FROM, nml pulses b/l. NEURO EXAM: Normal sensorium, cranial nerves II-XII grossly intact, normal speech, no facial droop,nogross weakness of arms, no gross weakness of legs. Gross sensation intact. No ataxia. Vital Signs: reviewed and remarkable Differential Diagnosis: Dehydration, ALEXIS, medication ADR, cannabis induced hyperemesis syndrome, pancreatitis, cholecystitis, perforation, mesenteric ischemia, bowel obstruction, gastritis, viral syndrome, pneumonia, as well as others were considered MEDICAL DECISION MAKING: This is a 38-year-old female who presents emergency room due to concern for ongoing abdominal pain, decreased oral intake, nausea and vomiting, and shortness of breath. Patient ill-appearing on arrival and I was asked to come see the patient urgently. She was noted to be markedly tachypneic, however not overtly hypoxic. Labs drawn and sent, IV established, EKG and chest ray performed at bedside interpreted by me and patient monitored on telemetry. Due to clinical dehydration she was started on IV fluids. [id number] BMP send initially while waiting on official labs, patient noted to have hyperglycemia and DKA. Hyponatremia also noted although likely secondary to the hyperglycemia. Patient also noted to have elevated creatinine, likely ALEXIS. Patient is known diabetic and does have a prior history of DKA. Given exam and initial [id number] findings, DKA order set used for placement of additional orders including insulin and additional IV fluids. Patient quickly transition from normal saline to Plasma-Lyte. I did discuss the case with the on-call bulb sorter, Dr. Bolaños. Patient noted to have significant anion gap. Insulin drip started, IV fluids continued. Patient noted to have slight improvement in her work of breathing and tachypnea. Patient given 2 amps of bicarb additionally. VBG noted to have pH of 7.0. Case discussed with the hospitalist team for additional evaluation and management and plan for ICU admission. Patient noted to have elevated lipase although level similar compared to prior. Given her concern for ongoing abdominal pain, nausea and vomiting, she was sent for repeat CT of the abdomen and pelvis. This was pending at the time of my discussion with the hospitalist team. Patient does have a history of alcohol use, although states she has not drank in several days. It is unclear if some of her symptoms could also be accompanying alcohol withdrawal. Due to leukocytosis noted, she was given empiric antibiotics. No other evidence of focal infection noted on initial evaluation, and this may be secondary to vomiting and stress to margination. Consultation(s): 1605: Discussed with Dr. Bolaños. 1840: Discussed with Jun [facility] hospitalist team, for additional evaluation and management. ER Treatment Provided: See below Diagnostics Interpreted By Me: -ECG: Sinus tachycardia at 111, normal axis, normal intervals, nonspecific ST/T wave changes -Cardiac Monitoring: An order was placed for continuous cardiac monitoring. The monitor shows a rate of 105 with sinus tachycardia rhythm. -Laboratory studies: As stated above and show below. -Imaging studies: X-ray Chest: A single view study of the chest was reviewed and was negative for cardiomegaly, focal infiltrate, effusion, pulmonary edema, or wide mediastinum. Triage Nursing Note Reviewed Prior/Outside Records Reviewed Critical Care: Critical care of 50 min performed to assess and manage high likelihood of life- threatening DKA, involving labs and imaging performed with assessment to evaluate DKA diagnosis with frequent reassessment. This time includes bedside time, treatment discussions with patient/family/consultants, documentation time and excludes procedure time. Past Med/Surg History Problem List Hypokalemia (Acute) Pancreatitis (Acute) ALEXIS (acute kidney injury) DKA (diabetic ketoacidosis) (Acute) Abdominal pain (Acute) Dyspnea (Acute) Pancreatitis (Acute) Hypomagnesemia Hypokalemia (Acute) Hyponatremia HTN (hypertension) no meds DMII (diabetes mellitus, type 2) Gestational diabetes History of tonsillectomy History of adenoidectomy Anxiety H/O Depression H/O Presence of pancreatic duct stent (Acute) Chronic pancreatitis Acute on chronic pancreatitis 08/30/23- admitted to [facility] Bipolar disorder Alcohol use disorder quit 1.5 years ago ANGE (generalized anxiety disorder) Asthma has not used inhaler for a long time Cardiac murmur no significant valvular disease on 08/20/2019 echo GERD (gastroesophageal reflux disease) Scoliosis MINOR History of section x 2 Medical History Vomiting Acute pancreatitis Epigastric abdominal pain Encounter for pre-operative examination History of prolonged Q-T interval on ECG Pancreatic stones Chronic neck pain Medical marijuana use Post traumatic stress disorder (PTSD) Diabetes IDDM Hgb A1C 12.3 in 08/2023 Surgical History History of tonsillectomy and adenoidectomy History of esophagogastroduodenoscopy (EGD) History of ERCP Family History Other Adopted No family history of adverse response to anesthesia Social History Smoking Status: Former smoker Tobacco Type: E-cigarettes / Vaping Second Hand Exposure: Yes (at work); Do You Dip or Chew Tobacco: No; Hx Alcohol Use: No Hx Substance Use: No Preferred Language: Wallisian 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: Effective Recreational Facilities Motel Manager Required: No Beliefs That Will Affect Care: None marital status: Single Current Living Situation: Family Current Living Situation Comment: family Feels Safe at Home: Yes Assistive Devices: None Allergies Allergies Allergy/AdvReac Type Severity Reaction Status Date / Time bee venom protein (honey bee) Allergy Severe ANAPHYLAXIS Verified 04/19/24 19:26 Home Meds Home Medications Medication Instructions Recorded Confirmed epinephrine 0.3 mg/0.3 mL 0.3 mg IM UD PRN Allergic Reaction 11/18/21 04/19/24 injection, auto-injector Medical Marijuana 1 dose inhalation HS PRN Sleep 02/08/22 04/19/24 insulin glargine 100 unit/mL 12 unit SC QAM 04/19/24 04/19/24 subcutaneous solution (Lantus U-100 Insulin) Previous Rx's Medication Instructions Recorded insulin aspart U-100 100 unit/mL 5 unit (0.05 mL) SC ACHS #10 mL 03/06/24 subcutaneous solution (Novolog U-100 Insulin aspart) loratadine 10 mg tablet (Wal-itin) 10 mg PO HS #7 tabs 03/06/24 magnesium chloride 64 mg 64 mg PO DAILY #30 tabs 03/06/24 (magnesium chloride) tablet,delayed release Results & Data (ED) Vital Signs Vital Signs - 24 hr 04/19/24 15:11 04/19/24 15:27 04/19/24 16:32 Temperature 36.6 C Temperature Source Temporal Artery Scan Pulse Rate 82 Pulse Rate [Apical] 112 H Pulse Rhythm Regular Pulse Rhythm [Apical] Regular Pulse Strength [Apical] Normal Respiratory Rate 39 H 22 Respiratory Effort / Characteristics Respiratory Depth Shallow Respiratory Pattern Regular Blood Pressure 127/96 Blood Pressure [Right Arm] 141/103 H Blood Pressure Mean 106 Blood Pressure Mean [Right Arm] 115 Blood Pressure Position Sitting Blood Pressure Position [Right Arm] Sitting Pulse Oximetry 98 99 100 Oxygen Delivery Method Room Air Room Air Room Air Sepsis Recent Fever Within 48 Hours No Sepsis New/Unexplained Change in Mental Status No Sepsis Action Taken by Nursing No Action Required 04/19/24 16:43 04/19/24 17:40 04/19/24 18:00 Temperature Temperature Source Pulse Rate 113 H Pulse Rate [Apical] 95 H 96 H Pulse Rhythm Pulse Rhythm [Apical] Regular Regular Pulse Strength [Apical] Normal Normal Respiratory Rate 18 18 Respiratory Effort / Characteristics Non-Labored Spontaneous Non-Labored Spontaneous Respiratory Depth Normal Normal Respiratory Pattern Regular Regular Blood Pressure Blood Pressure [Right Arm] 193/116 H 147/111 H Blood Pressure Mean Blood Pressure Mean [Right Arm] 141 123 Blood Pressure Position Blood Pressure Position [Right Arm] Lying Lying Pulse Oximetry 100 100 Oxygen Delivery Method Room Air Room Air Sepsis Recent Fever Within 48 Hours Sepsis New/Unexplained Change in Mental Status Sepsis Action Taken by Nursing Laboratory Data 04/20/24 04:17 04/20/24 14:16 Lab Results 04/19/24 04/19/24 04/19/24 Range/Units 15:32 15:38 15:39 WBC 18.07 H (4.8-10.8) K/ul RBC 4.81 (4.20-5.40) M/uL Hgb 14.5 (12.0-16.0) g/dl POC Hgb 16.3 H (12.0-16.0) g/dl Hct 42.2 (37.0-47.0) % POC Hct 48 H (37-47) % MCV 87.7 (80.0-100.0) fL MCH 30.1 (25.0-34.0) pg MCHC 34.4 (32.0-36.0) g/dL RDW Std Deviation 41.5 (36.4-46.3) fL RDW Coeff of Arnold 12.9 (11.5-14.5) % Plt Count 610 H (130-400) K/uL MPV 10.0 (9.4-12.4) fL Immature Gran % (Auto) 0.7 % Neut % (Auto) 89.6 % Lymph % (Auto) 3.6 % [place] % (Auto) 5.8 % Eos % (Auto) 0.0 % Baso % (Auto) 0.3 % Neut # (Auto) 16.19 H (1.40-6.50) K/uL Lymph # (Auto) 0.65 L (1.20-3.40) K/uL [place] # (Auto) 1.05 H (0.11-0.59) K/uL Eos # (Auto) 0.00 (0.00-0.50) K/uL Baso # (Auto) 0.05 (0.00-0.20) K/uL Immature Gran # (Auto) 0.13 (0.01-0.20) K/uL PT 10.3 (9.0-12.0) Seconds INR 0.9 (0.9-1.1) VBG pH 7.02 L (7.36-7.41) POC Sodium 121 L (135-144) mmol/L Sodium 123 L (136-145) mmol/L POC Potassium 3.1 L (3.3-5.0) mmol/L Potassium 3.3 L (3.5-5.1) mmol/L POC Chloride 85 L (101-112) mmol/L Chloride 74 L (98-107) mmol/L Carbon Dioxide 6 L* (21-32) mmol/L POC Total CO2 8 L* (24-31) mmol/L Anion Gap 43 H (3-11) POC Anion Gap 33.0 H (16-25) mmol/L POC BUN 27 H (7-18) mg/dl BUN 26 H (6-23) mg/dl Creatinine 1.39 H (0.6-1.2) mg/dl POC Creatinine 1.0 (0.6-1.3) mg/dl Est Cr Clr Drug Dosing 41.8 ml/min Est GFR ( Amer) 56.0 ml/min Est GFR (Non-Af Amer) 48.3 ml/min BUN/Creatinine Ratio 18.7 (10-20) Glucose 569 H* (70-99(Fasting)) mg/dl POC Glucose (70-99) mg/dl POC Glucose (other) 584 H* (70-99) mg/dl Estimat Average Glucose 289 mg/dl Hemoglobin A1c 11.7 H (4.5-5.6) % Osmolality 319 H (280-300) mOsm/kg Lactate (0.4-2.0) mmol/L Calcium 9.4 (8.6-10.3) mg/dl POC Ioniz Calcium [place]rata 1.05 L (1.12-1.32) mmol/l Phosphorus 6.5 H (2.5-4.9) mg/dl Magnesium 2.3 (1.7-2.4) mg/dl Total Bilirubin 0.5 (0.2-1.0) mg/dl AST 91 H (13-39) U/L ALT 112 H (7-52) U/L Alkaline Phosphatase 216 H (34-104) U/L Troponin I High Sens 12.3 (0-14) pg/ml Total Protein 9.7 H (6.0-8.3) gm/dl Albumin 4.5 (3.4-5.0) gm/dl Globulin 5.2 H (2.5-4.0) gm/dl Albumin/Globulin Ratio 0.9 (0.9-2) Lipase 549 H (11-82) U/L TSH 0.506 (0.300-4.500) uIu/ml HCG, Qual Negative (Negative) Urine Color Urine Appearance (Clear) Urine pH (4.5-7.5) Ur Specific Hunt (1.000-1.030) Urine Protein (Negative) Urine Glucose (UA) (Negative) Urine Ketones (Negative) Urine Blood (Negative) Urine Nitrite (Negative) Urine Bilirubin (Negative) Urine Urobilinogen (Negative) Ur Leukocyte Esterase (Negative) Urine WBC (Auto) (0-5) /hpf Urine RBC (Auto) (0-2) /hpf U Hyaline Cast (Auto) (0-2) /lpf U Epithel Cells (Auto) (0-2) /hpf Urine Bacteria (Auto) (None Seen) Adenovirus (PCR) Not Detected (NotDetected) B. pertussis DNA (PCR) Not Detected (NotDetected) B.parapertussis DNA PCR Not Detected (NotDetected) C. pneumoniae DNA (PCR) Not Detected (NotDetected) Coronavirus OC43 (PCR) Not Detected (NotDetected) Coronavirus HKU1 (PCR) Not Detected (NotDetected) Coronavirus 229E (PCR) Not Detected (NotDetected) SARS-CoV-2 (PCR) Not Detected (NotDetected) Coronavirus NL63 (PCR) Not Detected (NotDetected) Human Metapneumovir PCR Not Detected (NotDetected) Influenza Type A (PCR) Not Detected (NotDetected) Influenza Type B (PCR) Not Detected (NotDetected) M. pneumoniae (PCR) Not Detected (NotDetected) Parainfluenza 1 (PCR) Not Detected (NotDetected) Parainfluenza 2 (PCR) Not Detected (NotDetected) Parainfluenza 3 (PCR) Not Detected (NotDetected) Parainfluenza 4 (PCR) Not Detected (NotDetected) RSV (PCR) Not Detected (NotDetected) Entero/Rhino (PCR) Not Detected (NotDetected) 04/19/24 04/19/24 04/19/24 Range/Units 15:58 16:46 17:39 WBC (4.8-10.8) K/ul RBC (4.20-5.40) M/uL Hgb (12.0-16.0) g/dl POC Hgb (12.0-16.0) g/dl Hct (37.0-47.0) % POC Hct (37-47) % MCV (80.0-100.0) fL MCH (25.0-34.0) pg MCHC (32.0-36.0) g/dL RDW Std Deviation (36.4-46.3) fL RDW Coeff of Arnold (11.5-14.5) % Plt Count (130-400) K/uL MPV (9.4-12.4) fL Immature Gran % (Auto) % Neut % (Auto) % Lymph % (Auto) % [place] % (Auto) % Eos % (Auto) % Baso % (Auto) % Neut # (Auto) (1.40-6.50) K/uL Lymph # (Auto) (1.20-3.40) K/uL [place] # (Auto) (0.11-0.59) K/uL Eos # (Auto) (0.00-0.50) K/uL Baso # (Auto) (0.00-0.20) K/uL Immature Gran # (Auto) (0.01-0.20) K/uL PT (9.0-12.0) Seconds INR (0.9-1.1) VBG pH (7.36-7.41) POC Sodium (135-144) mmol/L Sodium (136-145) mmol/L POC Potassium (3.3-5.0) mmol/L Potassium (3.5-5.1) mmol/L POC Chloride (101-112) mmol/L Chloride (98-107) mmol/L Carbon Dioxide (21-32) mmol/L POC Total CO2 (24-31) mmol/L Anion Gap (3-11) POC Anion Gap (16-25) mmol/L POC BUN (7-18) mg/dl BUN (6-23) mg/dl Creatinine (0.6-1.2) mg/dl POC Creatinine (0.6-1.3) mg/dl Est Cr Clr Drug Dosing ml/min Est GFR ( Amer) ml/min Est GFR (Non-Af Amer) ml/min BUN/Creatinine Ratio (10-20) Glucose (70-99(Fasting)) mg/dl POC Glucose 495 H* 370 H* (70-99) mg/dl POC Glucose (other) (70-99) mg/dl Estimat Average Glucose mg/dl Hemoglobin A1c (4.5-5.6) % Osmolality (280-300) mOsm/kg Lactate (0.4-2.0) mmol/L Calcium (8.6-10.3) mg/dl POC Ioniz Calcium Namrata (1.12-1.32) mmol/l Phosphorus (2.5-4.9) mg/dl Magnesium (1.7-2.4) mg/dl Total Bilirubin (0.2-1.0) mg/dl AST (13-39) U/L ALT (7-52) U/L Alkaline Phosphatase (34-104) U/L Troponin I High Sens (0-14) pg/ml Total Protein (6.0-8.3) gm/dl Albumin (3.4-5.0) gm/dl Globulin (2.5-4.0) gm/dl Albumin/Globulin Ratio (0.9-2) Lipase (11-82) U/L TSH (0.300-4.500) uIu/ml HCG, Qual (Negative) Urine Color Yellow Urine Appearance Clear (Clear) Urine pH 5.5 (4.5-7.5) Ur Specific Hunt 1.021 (1.000-1.030) Urine Protein 2+ H (Negative) Urine Glucose (UA) 3+ H (Negative) Urine Ketones 4+ H (Negative) Urine Blood 1+ H (Negative) Urine Nitrite Negative (Negative) Urine Bilirubin Negative (Negative) Urine Urobilinogen Negative (Negative) Ur Leukocyte Esterase Negative (Negative) Urine WBC (Auto) 0-5 (0-5) /hpf Urine RBC (Auto) 0-2 (0-2) /hpf U Hyaline Cast (Auto) 3-5 H (0-2) /lpf U Epithel Cells (Auto) 6-10 H (0-2) /hpf Urine Bacteria (Auto) None Seen (None Seen) Adenovirus (PCR) (NotDetected) B. pertussis DNA (PCR) (NotDetected) B.parapertussis DNA PCR (NotDetected) C. pneumoniae DNA (PCR) (NotDetected) Coronavirus OC43 (PCR) (NotDetected) Coronavirus HKU1 (PCR) (NotDetected) Coronavirus 229E (PCR) (NotDetected) SARS-CoV-2 (PCR) (NotDetected) Coronavirus NL63 (PCR) (NotDetected) Human Metapneumovir PCR (NotDetected) Influenza Type A (PCR) (NotDetected) Influenza Type B (PCR) (NotDetected) M. pneumoniae (PCR) (NotDetected) Parainfluenza 1 (PCR) (NotDetected) Parainfluenza 2 (PCR) (NotDetected) Parainfluenza 3 (PCR) (NotDetected) Parainfluenza 4 (PCR) (NotDetected) RSV (PCR) (NotDetected) Entero/Rhino (PCR) (NotDetected) 04/19/24 04/19/24 Range/Units 18:13 18:47 WBC (4.8-10.8) K/ul RBC (4.20-5.40) M/uL Hgb (12.0-16.0) g/dl POC Hgb (12.0-16.0) g/dl Hct (37.0-47.0) % POC Hct (37-47) % MCV (80.0-100.0) fL MCH (25.0-34.0) pg MCHC (32.0-36.0) g/dL RDW Std Deviation (36.4-46.3) fL RDW Coeff of Arnold (11.5-14.5) % Plt Count (130-400) K/uL MPV (9.4-12.4) fL Immature Gran % (Auto) % Neut % (Auto) % Lymph % (Auto) % [place] % (Auto) % Eos % (Auto) % Baso % (Auto) % Neut # (Auto) (1.40-6.50) K/uL Lymph # (Auto) (1.20-3.40) K/uL [place] # (Auto) (0.11-0.59) K/uL Eos # (Auto) (0.00-0.50) K/uL Baso # (Auto) (0.00-0.20) K/uL Immature Gran # (Auto) (0.01-0.20) K/uL PT (9.0-12.0) Seconds INR (0.9-1.1) VBG pH (7.36-7.41) POC Sodium (135-144) mmol/L Sodium (136-145) mmol/L POC Potassium (3.3-5.0) mmol/L Potassium (3.5-5.1) mmol/L POC Chloride (101-112) mmol/L Chloride (98-107) mmol/L Carbon Dioxide (21-32) mmol/L POC Total CO2 (24-31) mmol/L Anion Gap (3-11) POC Anion Gap (16-25) mmol/L POC BUN (7-18) mg/dl BUN (6-23) mg/dl Creatinine (0.6-1.2) mg/dl POC Creatinine (0.6-1.3) mg/dl Est Cr Clr Drug Dosing ml/min Est GFR ( Amer) ml/min Est GFR (Non-Af Amer) ml/min BUN/Creatinine Ratio (10-20) Glucose (70-99(Fasting)) mg/dl POC Glucose 234 H (70-99) mg/dl POC Glucose (other) (70-99) mg/dl Estimat Average Glucose mg/dl Hemoglobin A1c (4.5-5.6) % Osmolality (280-300) mOsm/kg Lactate 1.7 (0.4-2.0) mmol/L Calcium (8.6-10.3) mg/dl POC Ioniz Calcium [place]rata (1.12-1.32) mmol/l Phosphorus (2.5-4.9) mg/dl Magnesium (1.7-2.4) mg/dl Total Bilirubin (0.2-1.0) mg/dl AST (13-39) U/L ALT (7-52) U/L Alkaline Phosphatase (34-104) U/L Troponin I High Sens (0-14) pg/ml Total Protein (6.0-8.3) gm/dl Albumin (3.4-5.0) gm/dl Globulin (2.5-4.0) gm/dl Albumin/Globulin Ratio (0.9-2) Lipase (11-82) U/L TSH (0.300-4.500) uIu/ml HCG, Qual (Negative) Urine Color Urine Appearance (Clear) Urine pH (4.5-7.5) Ur Specific Hunt (1.000-1.030) Urine Protein (Negative) Urine Glucose (UA) (Negative) Urine Ketones (Negative) Urine Blood (Negative) Urine Nitrite (Negative) Urine Bilirubin (Negative) Urine Urobilinogen (Negative) Ur Leukocyte Esterase (Negative) Urine WBC (Auto) (0-5) /hpf Urine RBC (Auto) (0-2) /hpf U Hyaline Cast (Auto) (0-2) /lpf U Epithel Cells (Auto) (0-2) /hpf Urine Bacteria (Auto) (None Seen) Adenovirus (PCR) (NotDetected) B. pertussis DNA (PCR) (NotDetected) B.parapertussis DNA PCR (NotDetected) C. pneumoniae DNA (PCR) (NotDetected) Coronavirus OC43 (PCR) (NotDetected) Coronavirus HKU1 (PCR) (NotDetected) Coronavirus 229E (PCR) (NotDetected) SARS-CoV-2 (PCR) (NotDetected) Coronavirus NL63 (PCR) (NotDetected) Human Metapneumovir PCR (NotDetected) Influenza Type A (PCR) (NotDetected) Influenza Type B (PCR) (NotDetected) M. pneumoniae (PCR) (NotDetected) Parainfluenza 1 (PCR) (NotDetected) Parainfluenza 2 (PCR) (NotDetected) Parainfluenza 3 (PCR) (NotDetected) Parainfluenza 4 (PCR) (NotDetected) RSV (PCR) (NotDetected) Entero/Rhino (PCR) (NotDetected) Administered Medications Folic Acid (Folic Acid 1 Mg Tab) 1 mg PO QAM [facility] Stop: 05/20/24 08:59 Last Admin: 04/20/24 08:11 Dose: 1 mg Documented By: CARINE Insulin Human Regular 250 (units/ Sodium Chloride) 250 mls @ 2.7 mls/hr IV .Q24H [facility]; Protocol Stop: 05/19/24 15:44 Last Titration: 04/20/24 18:06 Dose: 1.3 units/hr, 1.3 mls/hr Documented By: CARINE Co-signed By: MTP Titration: 04/20/24 17:10 Dose: 0 units/hr, 0 mls/hr Documented By: CARINE Co-signed By: MAYRA Admin: 04/20/24 17:08 Dose: Not Given Documented By: Titration: 04/20/24 16:00 Dose: 2.2 units/hr, 2.2 mls/hr Documented By: ES Co-signed By: CB Titration: 04/20/24 14:00 Dose: 2.7 units/hr, 2.7 mls/hr Documented By: ES Co-signed By: CB Titration: 04/20/24 12:30 Dose: 2.7 units/hr, 2.7 mls/hr Documented By: ES Co-signed By: MTP Titration: 04/20/24 11:00 Dose: 2.7 units/hr, 2.7 mls/hr Documented By: CRAINE Co-signed By: AMB Titration: 04/20/24 09:30 Dose: 2.7 units/hr, 2.7 mls/hr Documented By: ES Co-signed By: MTP Titration: 04/20/24 08:30 Dose: 3.4 units/hr, 3.4 mls/hr Documented By: ES Co-signed By: MTP Titration: 04/20/24 07:30 Dose: 4.2 units/hr, 4.2 mls/hr Documented By: ES Co-signed By: WRS Titration: 04/20/24 05:38 Dose: 4.2 units/hr, 4.2 mls/hr Documented By: MNM Co-signed By: ELC Titration: 04/20/24 04:22 Dose: 3.5 units/hr, 3.5 mls/hr Documented By: MNM Co-signed By: ELC Titration: 04/20/24 04:01 Dose: 2.9 units/hr, 2.9 mls/hr Documented By: MNM Co-signed By: ESG Titration: 04/20/24 03:01 Dose: 2.9 units/hr, 2.9 mls/hr Documented By: MNM Co-signed By: ESG Titration: 04/20/24 02:10 Dose: 2.9 units/hr, 2.9 mls/hr Documented By: MNM Co-signed By: CLC Titration: 04/20/24 00:56 Dose: 2.9 units/hr, 2.9 mls/hr Documented By: MNM Co-signed By: CLC Titration: 04/19/24 20:30 Dose: 0 units/hr, 0 mls/hr Documented By: ANTHONY Co-signed By: SARA Titration: 04/19/24 19:25 Dose: 2.9 units/hr, 2.9 mls/hr Documented By: JH Co-signed By: SARA Titration: 04/19/24 18:51 Dose: 0 units/hr, 0 mls/hr Documented By: SNS Co-signed By: ANTHONY Titration: 04/19/24 17:49 Dose: 4.8 units/hr, 4.8 mls/hr Documented By: SNS Co-signed By: ROJELIO Admin: 04/19/24 16:53 Dose: 4.8 units/hr, 4.8 mls/hr Documented By: SNS Co-signed By: VIRGINIA Pantoprazole Sodium 40 mg/ (Syringe) 10 mls @ 5 mls/min IV BID GE[facility] Stop: 05/20/24 08:59 Last Admin: 04/20/24 08:11 Dose: 5 mls/min Documented By: CARINE Potassium Chloride 40 meq/ (Dextrose/Sodium Chloride) 1,000 ml in 1,020 mls @ 150 mls/hr IV .[id number] [facility] Stop: 05/19/24 21:14 Last Admin: 04/20/24 17:11 Dose: 150 mls/hr Documented By: Infusion: 04/20/24 17:11 Dose: Infused Documented By: Admin: 04/20/24 10:46 Dose: 150 mls/hr Documented By: Infusion: 04/20/24 10:46 Dose: Infused Documented By: Admin: 04/20/24 04:03 Dose: 150 mls/hr Documented By: Infusion: 04/20/24 04:03 Dose: Infused Documented By: Admin: 04/19/24 21:40 Dose: 150 mls/hr Documented By: NHUNG Potassium Phosphate 24 mmol/ (Sodium Chloride) 508 mls @ 88 mls/hr IV ONE ONE Stop: 04/20/24 21:01 Last Admin: 04/20/24 17:41 Dose: 88 mls/hr Documented By: CARINE Insulin Aspart (Insulin Aspart Per Unit Charge) 0 units SC ACHS [facility] Stop: 05/20/24 16:29 Last Admin: 04/20/24 17:08 Dose: Not Given Documented By: CARINE Morphine Sulfate (Morphine Sulfate 4 Mg/Ml 1 Ml Carp\Vial) 4 mg IV Q3H PRN PRN Reason: Pain Stop: 05/03/24 19:40 Last Admin: 04/20/24 17:11 Dose: 4 mg Documented By: Admin: 04/20/24 10:46 Dose: 4 mg Documented By: Admin: 04/20/24 08:10 Dose: 4 mg Documented By: Admin: 04/20/24 05:26 Dose: 4 mg Documented By: Admin: 04/20/24 02:31 Dose: 4 mg Documented By: Admin: 04/19/24 23:06 Dose: 4 mg Documented By: Admin: 04/19/24 19:54 Dose: 4 mg Documented By: ANTHONY Thiamine HCl (Thiamine Hcl 100 Mg Tab) 100 mg PO QAM [facility] Stop: 05/20/24 08:59 Last Admin: 04/20/24 08:11 Dose: 100 mg Documented By: ES Discontinued Medications Sodium Chloride (Nss) 1,000 mls @ 999 mls/hr IV .Q1H1M ONE Stop: 04/19/24 16:38 Last Infusion: 04/19/24 16:43 Dose: Infused Documented By: Admin: 04/19/24 15:44 Dose: 999 mls/hr Documented By: SNS Parenteral Electrolytes (Plasma-Lyte A Ph 7.4) 1,000 mls @ 999 mls/hr IV .Q1H1M ONE Stop: 04/19/24 16:44 Last Infusion: 04/19/24 17:12 Dose: Infused Documented By: Admin: 04/19/24 15:53 Dose: 999 mls/hr Documented By: SANTANA Pantoprazole Sodium 40 mg/ (Syringe) 10 mls @ 5 mls/min IV NOW ONE Stop: 04/19/24 16:01 Last Admin: 04/19/24 17:00 Dose: 5 mls/min Documented By: SANTANA Famotidine (Pepcid 20mg Iv Push) 20 mg in 5 mls @ 2.5 mls/min IV NOW STA Stop: 04/19/24 16:04 Last Admin: 04/19/24 16:07 Dose: 2.5 mls/min Documented By: SANTANA Promethazine HCl (Phenergan) 6.25 mg in 50.25 mls @ 201 mls/hr IV NOW STA Stop: 04/19/24 16:17 Last Infusion: 04/19/24 16:43 Dose: Infused Documented By: Admin: 04/19/24 16:24 Dose: 201 mls/hr Documented By: SANTANA Cefepime HCl (Maxipime) 2,000 mg in 20 mls @ 5 mls/min IV NOW STA; Protocol Stop: 04/19/24 16:55 Last Admin: 04/19/24 17:00 Dose: 5 mls/min Documented By: SANTANA Parenteral Electrolytes (Plasma-Lyte A Ph 7.4) 1,000 mls @ 999 mls/hr IV .Q1H1M ONE Stop: 04/19/24 17:53 Last Infusion: 04/19/24 18:35 Dose: Infused Documented By: Admin: 04/19/24 17:33 Dose: 999 mls/hr Documented By: SANTANA Potassium Chloride/Dextrose/Sod Cl (D5w And 1/2nss + 20meq Kcl) 20 meq in 1,000 mls @ 150 mls/hr IV .Q6H40M GEOVANNA Stop: 05/19/24 19:44 Last Infusion: 04/19/24 21:35 Dose: Infused Documented By: Admin: 04/19/24 19:57 Dose: 150 mls/hr Documented By: ANTHONY Potassium Chloride (K Fredi / Wtr) 10 meq in 100 mls @ 200 mls/hr IV Q1H GEOVANNA Stop: 04/19/24 23:14 Last Infusion: 04/20/24 00:23 Dose: Infused Documented By: Admin: 04/19/24 23:06 Dose: 100 mls/hr Documented By: Infusion: 04/19/24 23:06 Dose: Infused Documented By: Admin: 04/19/24 22:26 Dose: 100 mls/hr Documented By: Infusion: 04/19/24 22:26 Dose: Infused Documented By: Admin: 04/19/24 21:32 Dose: 100 mls/hr Documented By: Infusion: 04/19/24 20:59 Dose: Infused Documented By: Admin: 04/19/24 19:59 Dose: 100 mls/hr Documented By: ANTHONY Parenteral Electrolytes (Plasma-Lyte A Ph 7.4) 1,000 mls @ 150 mls/hr IV .Q6H40M GEOVANNA Stop: 05/19/24 19:48 Last Admin: 04/19/24 20:32 Dose: Not Given Documented By: ANTHONY Cefepime HCl 2,000 mg/ Syringe 20 mls @ 5 mls/min IV Q12H GEOVANNA; Protocol Stop: 04/22/24 04:59 Last Admin: 04/20/24 05:25 Dose: 5 mls/min Documented By: NHUNG Calcium Chloride 1,000 mg/ (Dextrose) 60 mls @ 240 mls/hr IV NOW ONE Stop: 04/19/24 20:59 Last Infusion: 04/19/24 22:11 Dose: Infused Documented By: Admin: 04/19/24 21:45 Dose: 240 mls/hr Documented By: NHUNG Magnesium Sulfate/Dextrose (Magnesium Sulfate / D5w) 1 gm in 100 mls @ 50 mls/hr IV Q2H GEOVANNA Stop: 04/20/24 04:59 Last Infusion: 04/20/24 05:24 Dose: Infused Documented By: Admin: 04/20/24 02:59 Dose: 50 mls/hr Documented By: Infusion: 04/20/24 02:59 Dose: Infused Documented By: Admin: 04/20/24 01:31 Dose: 50 mls/hr Documented By: NHUNG Potassium Chloride (K Fredi / Wtr) 10 meq in 100 mls @ 100 mls/hr IV Q1H GEOVANNA Stop: 04/20/24 04:59 Last Infusion: 04/20/24 05:35 Dose: Infused Documented By: Admin: 04/20/24 04:46 Dose: 100 mls/hr Documented By: Infusion: 04/20/24 04:46 Dose: Infused Documented By: Admin: 04/20/24 03:46 Dose: 100 mls/hr Documented By: [id number] Infusion: 04/20/24 03:20 Dose: Infused Documented By: [id number] Admin: 04/20/24 02:20 Dose: 100 mls/hr Documented By: Infusion: 04/20/24 02:20 Dose: Infused Documented By: Admin: 04/20/24 01:31 Dose: 100 mls/hr Documented By: NHUNG Potassium Phosphate 15 mmol/ (Sodium Chloride) 255 mls @ 88 mls/hr IV ONE ONE Stop: 04/20/24 11:38 Last Infusion: 04/20/24 12:39 Dose: Infused Documented By: Admin: 04/20/24 09:10 Dose: 88 mls/hr Documented By: CARINE Insulin Aspart (Insulin Aspart Per Unit Charge) 0 units SC ACHS GEOVANNA Stop: 05/19/24 16:29 Last Admin: 04/19/24 21:33 Dose: Not Given Documented By: Admin: 04/19/24 19:20 Dose: Not Given Documented By: ANTHONY Co-signed By: JASMINA Insulin Aspart (Insulin Aspart Per Unit Charge) 0 units SC ACHS GEOVANNA Stop: 05/19/24 20:59 Last Admin: 04/20/24 10:31 Dose: Not Given Documented By: Admin: 04/20/24 08:11 Dose: Not Given Documented By: Admin: 04/19/24 21:35 Dose: Not Given Documented By: NHUNG Ioversol (Optiray 320 100ml) 94 ml IV ONCE ONE Stop: 04/19/24 20:56 Last Admin: 04/19/24 20:55 Dose: 94 ml Documented By: MAYNOR Sheridan (Stat Iv Infusion Titration Per Protocol) 1 each N/A NOW STA Stop: 04/19/24 15:45 Last Admin: 04/19/24 17:03 Dose: Not Given Documented By: SANTANA Sheridan (Dka Goal Range 150-250 Mg/Dl) 1 each N/A ONE ONE Stop: 04/19/24 15:45 Last Admin: 04/19/24 20:05 Dose: Not Given Documented By: ANTHONY Sheridan (Icu Protocol For Hyperglycemia) 1 each N/A ACHS GEOVANNA Stop: 04/21/24 20:59 Last Admin: 04/19/24 21:33 Dose: Not Given Documented By: NHUNG Sheridan (Pending 1/2nss+20meq Kcl Ivf) 1 each N/A Q2H GEOVANNA Stop: 05/19/24 19:48 Last Admin: 04/19/24 20:12 Dose: Not Given Documented By: ANTHONY Sheridan (Dka Goal Range 150-250 Mg/Dl) 1 each N/A ONE ONE Stop: 04/19/24 19:50 Last Admin: 04/19/24 20:17 Dose: 1 each Documented By: ANTHONY Sheridan (Pending 1/2nss+40meq Kcl Ivf) 1 each N/A Q2H GEOVANNA Stop: 05/19/24 19:48 Last Admin: 04/19/24 20:40 Dose: Not Given Documented By: ANTHONY Sheridan (Pending D5 1/2ns+20meq Kcl Ivf) 1 each N/A Q2H GEOVANNA Stop: 05/19/24 19:48 Last Admin: 04/19/24 20:16 Dose: Not Given Documented By: ANTHONY Sheridan (Pending D5 1/2ns+40meq Kcl Ivf) 1 each N/A Q2H GEOVANNA Stop: 05/19/24 19:48 Last Admin: 04/19/24 21:29 Dose: Not Given Documented By: MNM Morphine Sulfate (Morphine Sulfate 4 Mg/Ml 1 Ml Carp\Vial) 4 mg IV NOW STA Stop: 04/19/24 17:17 Last Admin: 04/19/24 17:32 Dose: 4 mg Documented By: SANTANA Potassium Chloride (Potassium Chloride 20 Meq/15 Ml Udc) 40 meq PO NOW STA Stop: 04/19/24 19:40 Last Admin: 04/19/24 19:53 Dose: 40 meq Documented By: ANTHONY Potassium Phosphate (Pot Phosphate Monobasic W/ Sod Tab) 2 tab PO ONCE ONE Stop: 04/20/24 08:21 Last Admin: 04/20/24 09:46 Dose: 2 tab Documented By: CARINE Potassium Phosphate (Pot Phosphate Monobasic W/ Sod Tab) 2 tab PO QID GEOVANNA Stop: 04/20/24 15:16 Last Admin: 04/20/24 17:11 Dose: 2 tab Documented By: CARINE Sodium Bicarbonate (Sodium Bicarb 8.4% Inj 50 Meq/50 Ml Syr) 50 meq IV NOW STA Stop: 04/19/24 16:52 Last Admin: 04/19/24 17:02 Dose: 50 meq Documented By: SANTANA Sodium Bicarbonate (Sodium Bicarb 8.4% Inj 50 Meq/50 Ml Syr) 50 meq IV NOW STA Stop: 04/19/24 16:51 Last Admin: 04/19/24 17:02 Dose: 50 meq Documented By: SANTANA Imaging Data Radiologist's Impression: Abdomen/Pelvis CT 04/19/24 17:17 Exam(s): CT ABDOMEN + PELVIS With Contrast IV Amt: optiray 320 94ml EXAM: CT Abdomen and Pelvis With Intravenous Contrast CLINICAL HISTORY: Reason for exam: abd pain, pancreatitis. TECHNIQUE: Axial computed tomography images of the abdomen and pelvis with intravenous contrast. CTDI is 12.24 mGy and DLP is 358.15 mGy-cm. Automated exposure control was utilized for the study. A dose lowering technique was utilized adhering to the principles of ALARA. CONTRAST: Patient received optiray 320 94ml of IV contrast COMPARISON: CT abdomen and pelvis February 28, 2024. FINDINGS: Lung bases: Unremarkable. No mass. No consolidation. ABDOMEN: Liver: Hepatic steatosis. Gallbladder and bile ducts: Unremarkable. No calcified stones. No ductal dilation. Pancreas: Soft-tissue appearing collection along the undersurface of the pancreatic neck measuring 4.2 x 2.2 cm. This is concerning for a pseudocyst however, pancreatic malignancy must be clinically excluded. This is new when compared to prior exam from February 28, 2024. Edema throughout the pancreas and surrounding inflammation, concerning for pancreatitis. Note, It is unlikely a malignancy would develop and under 2 month interval. Stent in the pancreatic head, extending into the duodenum. No ductal dilation. Spleen: Unremarkable. No splenomegaly. Adrenals: Unremarkable. No mass. Kidneys and ureters: Unremarkable. No solid mass. No hydronephrosis. Stomach and bowel: Diverticulosis, without acute diverticulitis. No small bowel obstruction. No free intraperitoneal air. PELVIS: Appendix: No findings to suggest acute appendicitis. Bladder: Unremarkable. No mass. Reproductive: Unremarkable as visualized. ABDOMEN and PELVIS: Intraperitoneal space: Unremarkable. No free air. No significant fluid collection. Bones/joints: No acute fracture. No dislocation. Soft tissues: Unremarkable. Vasculature: Unremarkable. No abdominal aortic aneurysm. Lymph nodes: Unremarkable. No enlarged lymph nodes. IMPRESSION: 1. Edema throughout the pancreas and surrounding inflammation, concerning for pancreatitis. Soft-tissue appearing collection along the undersurface of the pancreatic neck measuring 4.2 x 2.2 cm. This is concerning for a pseudocyst however, pancreatic malignancy must be clinically excluded. This is new when compared to prior exam from February 28, 2024. Note, It is unlikely a malignancy would develop and under 2 month interval. 2. Stent in the pancreatic head, extending into the duodenum. 3. Diverticulosis, without acute diverticulitis. No small bowel obstruction. No free intraperitoneal air. Electronically signed by: Gavino Cuellar MD 04/20/24 00:14 AM Discharge Plan Visit Data Chief Complaint: Shortness of Breath/Dyspnea Stated Complaint: CAN'T BREATH, HAVEN'T EATEN, HAS PANCREATITIS ED Provider: Mary Anne Mcneill Discharge Problem: Dyspnea, Abdominal pain, DKA (diabetic ketoacidosis), Pancreatitis, Hypokalemia Patient Disposition: Admitted As Inpatient Discharge Instructions Interventions: ED Discharge Assessment Last Done: 04/19/24 19:49
[2024-04-19] MEDS: PROMETHAZINE 6.25 MG/50.25 ML BAG IV STA (16:24)
[2024-04-19 16:27] LABS: Pregnancy Test, Serum Negative (Negative)
[2024-04-19 16:34] LABS: Albumin Globulin Ratio 0.9 (0.9-2); Albumin Level 4.5 gm/dl (3.4-5.0); BUN Creatinine Ratio 18.7 (10-20); Bilirubin,Total 0.5 mg/dl (0.2-1.0); Calcium 9.4 mg/dl (8.6-10.3); Creatinine Clr Calc Pharmacy 41.8 ml/min; Est GFR (Non-African American) 48.3 ml/min; Globulin 5.2 gm/dl (2.5-4.0); Magnesium 2.3 mg/dl (1.7-2.4); Phosphorus 6.5 mg/dl (2.5-4.9); Potassium 3.3 mmol/L (3.5-5.1); Total Protein 9.7 gm/dl (6.0-8.3); Troponin I High Sensitivity 12.3 pg/ml (0-14)
[2024-04-19 16:36] LABS: INR 0.9 (0.9-1.1); Prothrombin Time 10.3 Seconds (9.0-12.0)
[2024-04-19 16:39] LABS: Thyroid Stimulating Hormone 0.506 uIu/ml (0.300-4.500)
[2024-04-19] MEDS: INSULIN REGULAR 250 UNITS in SODIUM CHLORIDE 0.9% 247.5 ML IV SCH (16:53)
[2024-04-19 16:56] LABS: Adenovirus PCR Not Detected (NotDetected); Bordetella parapertussis PCR Not Detected (NotDetected); Bordetella pertussis PCR Not Detected (NotDetected); Chlamydia pneumoniae PCR Not Detected (NotDetected); Coronavirus 229E PCR Not Detected (NotDetected); Coronavirus CoV-2 (COVID19)PCR Not Detected (NotDetected); Coronavirus HKU1 PCR Not Detected (NotDetected); Coronavirus NL63 PCR Not Detected (NotDetected); Coronavirus OC43PCR Not Detected (NotDetected); Human Metapneumovirus PCR Not Detected (NotDetected); Influenza A PCR Not Detected (NotDetected); Influenza B PCR Not Detected (NotDetected); Mycoplasma pneumoniae PCR Not Detected (NotDetected); Parainfluenza Virus 1 PCR Not Detected (NotDetected); Parainfluenza Virus 2 PCR Not Detected (NotDetected); Parainfluenza Virus 3 PCR Not Detected (NotDetected); Parainfluenza Virus 4 PCR Not Detected (NotDetected); Respiratory Syncytial VirusPCR Not Detected (NotDetected); Rhinovirus/Enterovirus PCR Not Detected (NotDetected)
--- NOTE | 2024-04-19 16:57 | XRay Report ---
SINGLE VIEW CHEST CLINICAL HISTORY: Dyspnea FINDINGS: An AP, portable, upright chest radiograph is compared to study dated 03/10/2023. The cardiom ediastinal silhouette is unremarkable. The lungs and pleural spaces are clear. No pneumothorax is see n. The bony thorax is grossly intact. IMPRESSION: No active disease in the chest. ACT 112: Negative or not required by law. Electronically signed by: Raghu Mariano M.D. 04/19/2024 4:56 PM
[2024-04-19] MEDS: CEFEPIME 2,000 MG/20 ML VIAL IV STA (17:00)
[2024-04-19] MEDS: PANTOprazole 40 MG in SYRINGE 0 ML IV ONE (17:00)
[2024-04-19] MEDS: SODIUM BICARB 8.4% INJ 50 MEQ/50 ML SYR IV STA ×2 (17:02)
[2024-04-19] MEDS: STAT IV Infusion **Titration per Protocol STA (17:03)
[2024-04-19 17:08] LABS: Appearance Urine Clear (Clear); Bacteria Urine Automated None Seen (None Seen); Bilirubin Urine Negative (Negative); Blood Urine 1+ (Negative); Color Urine Yellow; Glucose Urine UA 3+ (Negative); Ketones Urine 4+ (Negative); Leukocyte Esterase Urine Negative (Negative); Nitrite Urine Negative (Negative); Protein Urine 2+ (Negative); RBC Urine Automated 0-2 /hpf (0-2); Specific Gravity Urine 1.021 (1.000-1.030); Urobilinogen Urine Negative (Negative); WBC Urine Automated 0-5 /hpf (0-5); pH Urine 5.5 (4.5-7.5)
[2024-04-19] MEDS: MoRPHine SULFATE 4 MG/ML 1 ML CARP\\VIAL IV STA (17:32)
--- NOTE | 2024-04-19 19:13 | History & Physical Report ---
Date of Service April 19, 2024 Assessment & Plan (1) DKA (diabetic ketoacidosis): Plan: Patient is 38-year-old female with PMH HTN, DM II, ETOH use, recurrent pancreatitis, with current stent, asthma, bipolar disorder, anxiety presented to ER with complaint of abdominal pain, nausea, vomiting and shortness of breath. In ER patient afebrile, P:82-112 improved to 96, R: 39 improved to 20, BP: 127/96 to 147/111 WBC: 18, glucose: 569, Corrected Na: 131, VBG: pH: 7.02, CO2: 6, A. Lactate: WNL, K: 3.3, Cl: 74 A1c 10.2 on 02/2024 ABG pending In ER given total 2 L Plasma-Lyte, 1 L NSS, IV Protonix, IV Pepcid, IV promethazine, sodium bicarb, cefepime, started on insulin drip Plan to transition to D5NS+K when <250, insulin drip Repeat BMP, phosphorus, magnesium labs to monitor electrolytes repeat phosphorus and magnesium labs NPO until acidosis resolved ICU Further management per saw edge fuser circular History ETOH use ETOH level pending Patient reports last drink was 3 weeks ago Monitor (2) Pancreatitis: Plan: History recurrent pancreatitis, chronic pancreatitis History pancreatic duct stent Lipase: 549, T. bili: 0.5, AST: 91, ALT: 112, alk phos: 216 CT abdomen pelvis pending Was scheduled to have outpatient ERCP, stent removal with possible stent exchange on 05/08/[address] Nielsen CMP, Lipase in am GI consult (3) ALEXIS (acute kidney injury): Plan: BUN: 26, Cr: 1.39 Received IVF Monitor renal functions Avoid nephrotoxic agents when possible (4) Hyponatremia: Plan: Hyponatremia Corrected sodium 131 for glucose 569 Monitor BMP (5) Bipolar disorder: Plan: History of bipolar disorder and anxiety Reports previously was on Abilify however reports has not taken for over 9months (6) Asthma: Plan: Do not suspect acute exacerbation at this time CXR without infiltrate Not on inhalers at home DVT Prophylaxis SCDs Admit ICU Full Code as per discussion with pt Follows with Dr Harinder Nathan for routine care Pt was seen and care coordinated with Dr Noel. See addendum I spent a total of 76 minutes reviewing notes, outpatient records, labs, medication, coordinating, documenting and providing care for this patient excluding time spent in the performance of separately billed services. History of Present Illness Chief Complaint: Abdominal pain, SOB Primary Care Provider: Harinder Nathan DO Patient is 38-year-old female with PMH HTN, DM II, ETOH use, recurrent pancreatitis, with current stent, asthma, bipolar disorder, anxiety presented to ER with complaint of abdominal pain, nausea, vomiting and shortness of breath. History of hospitalization 02/28/2024-03/06/2024 for recurrent acute on chronic pancreatitis. Patient states did not follow up after hospital discharge but does state she is scheduled for ERCP with stent removal and exchange on 05/08/[address] Nielsen. She reports ongoing abdominal pain since last admission with nausea and reports vomiting anytime she drinks or eats. States drinking sips of water and sips of smoothie and then will have nausea and vomits. She doesn't feel her abdominal pain improved any. She states recently she has been feeling SOB and thinks this has been over a week. She states today felt more SOB so came to ER for evaluation. She states she feels tired and sleepy. She reports feeling more dehydrated this week. She states hasn't been taking her temperature at home but thinks maybe feeling more warm than usual. Patient reports is to be taking Lantus 12 units daily and she reports having NovoLog to use on a sliding scale. Per discharge summary 03/06/2024 patient was discharged on 12 units Lantus daily and NovoLog 5 units ACHS. Patient states she is not using insulin as it was prescribed previously and it is unclear how or if patient using insulin. Patient states previously on Abilify and Ativan however has not used for nearly a year. Patient reports she last drank alcohol 3 weeks ago. Reports uses medical marijuana daily. Denies hematemesis, diarrhea, constipation, ECHEVARRIA, syncope, vision changes, CP, palpitations, rhinorrhea, extremity weakness, extremity edema, rashes, dysuria, hematuria. Allergies Allergy/AdvReac Type Severity Reaction Status Date / Time bee venom protein (honey bee) Allergy Severe ANAPHYLAXIS Verified 04/19/24 19:26 Home Medications Medication Instructions Recorded Confirmed Type epinephrine 0.3 mg/0.3 mL 0.3 mg IM UD PRN Allergic Reaction 11/18/21 04/19/24 History injection, auto-injector Medical Marijuana 1 dose inhalation HS PRN Sleep 02/08/22 04/19/24 History insulin aspart U-100 100 unit/mL 5 unit (0.05 mL) SC ACHS #10 mL 03/06/24 04/19/24 Rx subcutaneous solution (Novolog U-100 Insulin aspart) loratadine 10 mg tablet (Wal-itin) 10 mg PO HS #7 tabs 03/06/24 04/19/24 Rx magnesium chloride 64 mg 64 mg PO DAILY #30 tabs 03/06/24 04/19/24 Rx (magnesium chloride) tablet,delayed release insulin glargine 100 unit/mL 12 unit SC QAM 04/19/24 04/19/24 History subcutaneous solution (Lantus U-100 Insulin) Past Med/Surg History Problem List ALEXIS (acute kidney injury) DKA (diabetic ketoacidosis) (Acute) Abdominal pain (Acute) Dyspnea (Acute) Pancreatitis (Acute) Hypomagnesemia Hypokalemia (Acute) Hyponatremia HTN (hypertension) no meds DMII (diabetes mellitus, type 2) Gestational diabetes History of tonsillectomy History of adenoidectomy Anxiety H/O Depression H/O Presence of pancreatic duct stent (Acute) Chronic pancreatitis Acute on chronic pancreatitis 08/30/23- admitted to [facility] Bipolar disorder Alcohol use disorder quit 1.5 years ago ANGE (generalized anxiety disorder) Asthma has not used inhaler for a long time Cardiac murmur no significant valvular disease on 08/20/2019 echo GERD (gastroesophageal reflux disease) Scoliosis MINOR History of section x 2 Medical History Vomiting Acute pancreatitis Epigastric abdominal pain Encounter for pre-operative examination History of prolonged Q-T interval on ECG Pancreatic stones Chronic neck pain Medical marijuana use Post traumatic stress disorder (PTSD) Diabetes IDDM Hgb A1C 12.3 in 08/2023 Surgical History History of tonsillectomy and adenoidectomy History of esophagogastroduodenoscopy (EGD) History of ERCP Family History Other Adopted No family history of adverse response to anesthesia Social History Smoking Status: Never smoker Tobacco Type: E-cigarettes / Vaping Second Hand Exposure: Yes (at work); Do You Dip or Chew Tobacco: No; Hx Alcohol Use: Yes Alcohol type: wine Hx Substance Use: Yes Prescribed Medications: Marijuana Substance Use Type Other:: medical marijuana Preferred Language: Czech 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: Effective Dietary Internship Required: No Beliefs That Will Affect Care: None marital status: Single Current Living Situation: Family Current Living Situation Comment: family Feels Safe at Home: Yes Assistive Devices: None Review of Systems Review of Systems: All systems reviewed & are unremarkable except as noted in HPI & below Physical Exam Physical Exam: General: +ill appearing, WDWN Head: normocephalic, atraumatic Eyes: PERRL, EOM's intact, conjunctiva non-injected, anicteric ENT: normal inspection external ears, nose, mucous membranes dry Neck: supple, trachea midline Lungs: clear, no respiratory distress, no wheezing/rhonchi/rales CV: regular rhythm, rate 102, no murmur, no pretibial edema Abd: normal BS, soft, +diffuse tenderness to palpation Ext: no cyanosis, no calf tenderness Neuro: Drowsy, oriented x 3, no focal deficits noted, normal affect Skin: warm, dry Results & Data Results & Data Vital Signs (Past 12 Hours) Vital Signs Temp Pulse Pulse Resp BP BP Pulse Ox 04/19/24 18:00 96 H 18 147/111 H 100 04/19/24 17:40 95 H 18 193/116 H 100 04/19/24 16:43 113 H 04/19/24 16:32 112 H 22 141/103 H 100 04/19/24 15:27 99 04/19/24 15:11 36.6 C 82 39 H 127/96 98 O2 Del Method 04/19/24 18:00 Room Air 04/19/24 17:40 Room Air 04/19/24 16:43 04/19/24 16:32 Room Air 04/19/24 15:27 Room Air 04/19/24 15:11 Room Air Laboratory Results Short CBC 04/19/24 Range/Units 15:32 WBC 18.07 H (4.8-10.8) K/ul Hgb 14.5 (12.0-16.0) g/dl Hct 42.2 (37.0-47.0) % Plt Count 610 H (130-400) K/uL BMP 04/19/24 15:32 Sodium 123 L Potassium 3.3 L Chloride 74 L Carbon Dioxide 6 L* BUN 26 H Creatinine 1.39 H Glucose 569 H* Calcium 9.4 Liver Function 04/19/24 Range/Units 15:32 Total Bilirubin 0.5 (0.2-1.0) mg/dl AST 91 H (13-39) U/L ALT 112 H (7-52) U/L Alkaline Phosphatase 216 H (34-104) U/L Albumin 4.5 (3.4-5.0) gm/dl Urine 04/19/24 Range/Units 16:46 Urine Color Yellow Urine Appearance Clear (Clear) Urine pH 5.5 (4.5-7.5) Ur Specific [place] 1.021 (1.000-1.030) Urine Protein 2+ H (Negative) Urine Glucose (UA) 3+ H (Negative) Diagnostic Findings Chest X-Ray 04/19/24 15:38 SINGLE VIEW CHEST CLINICAL HISTORY: Dyspnea FINDINGS: An AP, portable, upright chest radiograph is compared to study dated 03/10/2023. The cardiomediastinal silhouette is unremarkable. The lungs and pleural spaces are clear. No pneumothorax is seen. The bony thorax is grossly intact. IMPRESSION: No active disease in the chest. ACT 112: Negative or not required by law. Electronically signed by: Raghu Mariano M.D. 04/19/2024 4:56 PM ECG Additional Comments: sinus tachycardia per my interpretation Code Status & VTE Plan VTE Prophylaxis Plan VTE Prophylaxis will be ordered: Yes Supervising Physician Co-Signing Physician Notes Patient is a 38-year-old female with history of diabetes mellitus, alcohol use disorder, recurrent pancreatitis, mood disorder and other medical problems presents with history of abdominal pain associated with nausea and vomiting, decreased appetite. She was recently hospitalized for recurrent pancreatitis. She states that she was not taking her insulin since at least 3 days given poor appetite and she was concerned about hypoglycemia. Admits to have some dyspnea and felt feverish. Her last alcohol drink was 1 week ago per patient. She also reports using medical marijuana. Please review HPI for complete details of presentation. I personally reviewed blood work and chest x-ray. CT abdomen currently pending. Physical Exam: Vitals signs as noted above General Appearance: Thin, frail, ill-appearing, no apparent distress Head: normocephalic, Atraumatic Eyes: normal inspection, EOMI Neck: supple, Trachea midline Respiratory/Chest: Normal breath sounds, CTA, No accessory muscle use Cardiovascular: S1, S2, No murmur, tachycardia Abdomen/GI:Soft, generalized abdominal tenderness predominantly epigastric, Bowel sounds present Extremities/Musculoskeletal:normal inspection, no edema Neurologic/Psych:AAO, grossly no focal neurological deficits Skin: normal color, warm Acute diabetic ketoacidosis Ongoing alcohol use Recurrent pancreatitis Acute kidney injury Metabolic acidosis secondary to above Hyperphosphatemia Transaminitis Hyponatremia, hypokalemia CT abdomen currently pending Agree with DKA protocol--insulin, fluids, replace electrolytes N.p.o. for now [employer]i Cab [employer] consulted Counseled to quit alcohol use Monitor for withdrawal Avoid hepato, nephrotoxic agents as able Monitor renal function, LFTs Replace electrolytes as needed GI consulted as well I personally interviewed and examined at bedside. Patient's care is coordinated with Violeta Ly PA-C. I have reviewed the advanced practitioner's documentation, and I agree with plan of care. Please refer to the documentation above for details of patient's presentation and for discussion of other issues. I spent a total [id number] coordinating, documenting, and providing care for this patient excluding time spent in the performance of separately billed services. (6) Asthma Asthma complication type: uncomplicated Asthma persistence: persistent Asthma severity: moderate Qualified Code(s): J45.40 - Moderate persistent asthma, uncomplicated
[2024-04-19] MEDS: INSULIN ASPART PER UNIT CHARGE SC SCH ×2 (19:20→21:35)
[2024-04-19] MEDS ORDERED: INSULIN REGULAR 250 UNITS in SODIUM CHLORIDE 0.9% 247.5 ML IV SCH (19:49)
[2024-04-19] MEDS ORDERED: STAT IV Infusion **Titration per Protocol STA (19:49)
[2024-04-19] MEDS ORDERED: PHARMACY GLYCEMIC MGMT CONSULT PRN (19:49)
[2024-04-19 19:51] LABS: iSTAT Hemoglobin 16.3 g/dl (12.0-16.0); iSTAT Ionized Calcium 1.05 mmol/l (1.12-1.32); iSTAT Potassium 3.1 mmol/L (3.3-5.0)
[2024-04-19] MEDS: POTASSIUM CHLORIDE 20 MEQ/15 ML UDC PO STA (19:53)
[2024-04-19] MEDS: MoRPHine SULFATE 4 MG/ML 1 ML CARP\\VIAL IV PRN (19:54)
[2024-04-19] MEDS: D5W AND 1/2NSS + 20MEQ KCL 20 MEQ/1,000 ML BAG IV SCH (19:57)
[2024-04-19] MEDS: POTASSIUM CHLORIDE / WTR 10 MEQ/100 ML PLCT IV SCH (19:59)
[2024-04-19] MEDS: DKA GOAL RANGE 150-250 mg/dl ONE ×2 (20:05→20:17)
[2024-04-19] MEDS: PENDING 1/2NSS+20mEq KCL IVF SCH (20:12)
--- NOTE | 2024-04-19 20:15 | Critical Care Consultation ---
Date of Consultation April 19, 2024 Assessment & Plan (1) DKA (diabetic ketoacidosis): Reason Critically Ill: 38-year-old female With extensive past medical history including alcoholism, diabetes mellitus, chronic pancreatitis, GERD, anxiety and depression, bipolar disorderwho presents to the ICU in DKA with profound acidosis, currently requiring bicarb with aggressive fluid resuscitation and insulin drip. Neuro - Anxiety and depression, bipolar disorderStable History of alcohol dependencepatient states last drink was 1 week ago. EtOH currently pending. No evidence of withdrawal at this time, could consider ARUN scale if patient becomes symptomatic Cardiac - No history of cardiac disease. Hemodynamically stable in sinus rhythm on monitor. Continuous monitoring on telemetry Respiratory - No history of pulmonary disease. Currently maintaining oxygen saturation on room air with normal respiratory effort. Continuous monitoring on pulse ox GI - Chronic pancreatitispatient with history of chronic pancreatitis with previous pancreatic stent. Lipase currently elevated at 549, appears to be typical to previous admissions. We will continue with fluid resuscitation and trend lipase for now. Unsure if abdominal pain related to DKA versus pancreatitis, Morphine for abdominal pain as needed. -N.p.o. GERDPPI RENAL/LYTES - Creatinine within normal limits. Patient has hypokalemia, Hypomagnesemia which are currently being repleted, and suspect electrolyte derangements due to m alnutrition with consistent vomiting over the past month, with decreased p.o. intake - BMPs every 4 hours. Continue with fluid resuscitation and replete electrolytes as indicated - Strict I's and O's ENDO - DKApatient with hyperglycemia in the 500s with profound metabolic acidosis. Received 2 L crystalloid bolus along with 2 A of bicarb for pH of 7.05. -Continue insulin drip and fluid resuscitation orders per DKA protocol - Will continue to rule out other sources of acidosis. Currently lactate within normal limits, CPK pending, acetaminophen and salicylates pending - Trend BMPs and VBG's every 4 hours for now. Once gap closes and acidosis resolved can transition to subcu insulin HEME - H&H stable, monitor routine CBC ID - Patient with leukocytosis, currently afebrile and lactate within normal limits. Will obtain blood cultures but hold off on antibiotics for the time being LINES/IV ACCESS - Peripheral IVs DVT PROPHYLAXIS - SCDs I have personally spent 50 minutes of critical care time in the direct management of this patient. This is a life/limb threatening event. This includes time spent evaluating patient, direct bedside care, chart review, placing orders, interpretation of diagnostic studies, discussion with consultants, patient, and family members, as well as other required patient management activities. This time is exclusive of all separately billable procedures, and teaching time and separate from and in addition to any other critical care service time. Thank you for allowing us to participate in the care of this patient. Please refer to my attending physician's documentation for any further recommendations. (2) Chronic pancreatitis: (3) Alcohol use disorder: (4) Bipolar disorder: (5) ANGE (generalized anxiety disorder): (6) GERD (gastroesophageal reflux disease): (7) Hypokalemia: (8) Hypomagnesemia: (9) HTN (hypertension): History of Present Illness Attending Physician: Eligio Noel MD History of Present Illness 38-year-old female presents to the emergency department with complaints of nausea and vomiting with abdominal pain over the past 3 days. Patient states that she has had nausea with vomiting daily over the past month and has been taking Zofran. She has an extensive past medical history including alcoholism, pancreatitis, diabetes mellitus, HTN, bipolar disorder, anxiety and depression, GERD. Patient was found to have profound acidosis with hyperglycemia and positive ketones in urine consistent with DKA. She was given bicarb and crystalloid fluid boluses and started on insulin drip. She is now being admitted to ICU for further management at this time. Upon evaluation the patient is alert and oriented x 3 without acute distress. She does complain of generalized abdominal pain which is tender to palpation. She again states that she has had nausea with vomiting daily basis over the past month which is worsened over the past 3 days, and she has been having increased abdominal pain over the past 3 days as well. She states that she has not been able to eat or drink for the past 3 days.She stopped taking her insulin over the past 3 days due to lack of p.o. intake. She has reported intermittent chills but is unsure if she has had fever. She denies headache, dizziness, syncopal events, changes in vision, changes in gait, cough or congestion, shortness of breath, chest pain or palpitations, diarrhea, swelling in hands or feet, Allergies Allergy/AdvReac Type Severity Reaction Status Date / Time bee venom protein (honey bee) Allergy Severe ANAPHYLAXIS Verified 04/19/24 19:26 Home Medications Medication Instructions Recorded Confirmed Type epinephrine 0.3 mg/0.3 mL 0.3 mg IM UD PRN Allergic Reaction 11/18/21 04/19/24 History injection, auto-injector Medical Marijuana 1 dose inhalation HS PRN Sleep 02/08/22 04/19/24 History insulin aspart U-100 100 unit/mL 5 unit (0.05 mL) SC ACHS #10 mL 03/06/24 04/19/24 Rx subcutaneous solution (Novolog U-100 Insulin aspart) loratadine 10 mg tablet (Wal-itin) 10 mg PO HS #7 tabs 03/06/24 04/19/24 Rx magnesium chloride 64 mg 64 mg PO DAILY #30 tabs 03/06/24 04/19/24 Rx (magnesium chloride) tablet,delayed release insulin glargine 100 unit/mL 12 unit SC QAM 04/19/24 04/19/24 History subcutaneous solution (Lantus U-100 Insulin) Patient History Medical History Vomiting Acute pancreatitis Epigastric abdominal pain Encounter for pre-operative examination History of prolonged Q-T interval on ECG Pancreatic stones Chronic neck pain Medical marijuana use Post traumatic stress disorder (PTSD) Diabetes IDDM Hgb A1C 12.3 in 08/2023 Surgical History History of tonsillectomy and adenoidectomy History of esophagogastroduodenoscopy (EGD) History of ERCP Family History Other Adopted No family history of adverse response to anesthesia Social History Smoking Status: Former smoker Tobacco Type: E-cigarettes / Vaping Second Hand Exposure: Yes (at work); Do You Dip or Chew Tobacco: No; Hx Alcohol Use: No Hx Substance Use: No Preferred Language: Luxembourgish 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: 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 Beliefs That Will Affect Care: None marital status: Single Current Living Situation: Family Current Living Situation Comment: family Feels Safe at Home: Yes Assistive Devices: None Review of Systems Review of Systems: All systems reviewed & are unremarkable except as noted in HPI & below Physical Exam Constitutional: cooperative; no acute distress Eyes: PERRL, conjunctivae normal, anicteric sclerae ENMT: external ear and nose normal, oropharynx normal Neck: trachea midline, no thyromegaly Cardiovascular: RRR, no murmur, no edema Heart Sounds: normal S1 and normal S2; no murmur Extremities: no edema Gastrointestinal (Abdomen): Normal bowel sounds, abdomen is soft with generalized tenderness in all 4 quadrants. Nondistended Musculoskeletal: no cyanosis or clubbing, extremities motor strength 5/5 Skin: no rashes, warm and dry Neurologic: PERRL, EOMI, accommodation nl, no face palsy, no dysarthria Psychiatric: A+Ox3, euthymic affect Results & Data Results & Data Vital Signs (Past 12 Hours) Vital Signs Temp Pulse Pulse Resp BP BP Pulse Ox 04/19/24 19:30 132/98 04/19/24 19:17 123 H 18 152/110 H 04/19/24 18:59 104 H 21 136/106 H 100 04/19/24 18:00 96 H 18 147/111 H 100 04/19/24 17:40 95 H 18 193/116 H 100 04/19/24 16:43 113 H 04/19/24 16:32 112 H 22 141/103 H 100 04/19/24 15:27 99 04/19/24 15:11 36.6 C 82 39 H 127/96 98 O2 Del Method 04/19/24 19:30 04/19/24 19:17 04/19/24 18:59 04/19/24 18:00 Room Air 04/19/24 17:40 Room Air 04/19/24 16:43 04/19/24 16:32 Room Air 04/19/24 15:27 Room Air 04/19/24 15:11 Room Air Coding Level of Care Code 24458 CRITICAL CARE 1ST 30-74M Diagnoses DKA (diabetic ketoacidosis) E11.10 Chronic pancreatitis K86.1 Alcohol use disorder F10.90 Bipolar disorder F31.9 ANGE (generalized anxiety disorder) F41.1 GERD (gastroesophageal reflux disease) K21.9 Hypokalemia E87.6 Hypomagnesemia E83.42 HTN (hypertension) I10
[2024-04-19] MEDS: PENDING D5 1/2NS+20mEq KCL IVF SCH (20:16)
[2024-04-19] MEDS: PLASMA-LYTE A 1,000 ML IV SCH (20:32)
[2024-04-19 20:36] LABS: Base Excess ABG -12.7 mEq/L (-9-1.8); HCO3 ABG 11 mmol/L (19-24); Oxygen Saturation ABG 99.6 % (90-95); PCO2 ABG 19 mmHg (35-46); PO2 ABG 136 mmHg (80-95); pH ABG 7.35 (7.35-7.45)
[2024-04-19] MEDS: PENDING 1/2NSS+40mEq KCL IVF SCH (20:40)
[2024-04-19] MEDS: OPTIRAY 320 100ml IV ONE (20:55)
[2024-04-19 20:56] LABS: Acetaminophen < 3 ug/ml (10-30); Salicylate < 3.0 mg/dl (3.0-30)
[2024-04-19 20:57] LABS: Allen Test Pos (Pos)
[2024-04-19 20:58] LABS: Calcium 7.4 mg/dl (8.6-10.3); Creatinine Clr Calc Pharmacy 77.5 ml/min; Est GFR (Non-African American) 101.8 ml/min; Potassium 2.7 mmol/L (3.5-5.1)
[2024-04-19 21:03] LABS: Magnesium 1.8 mg/dl (1.7-2.4); Phosphorus 1.1 mg/dl (2.5-4.9)
[2024-04-19] MEDS: PENDING D5 1/2NS+40mEq KCL IVF SCH (21:29)
[2024-04-19] MEDS: ICU Protocol for HYPERglycemia SCH (21:33)
[2024-04-19] MEDS: D5W 1/2NSS + KCL 40 mEq IV SCH (21:40)
[2024-04-19] MEDS: CALCIUM CHLORIDE 10% 1,000 MG in DEXTROSE 5% 50 ML IV ONE (21:45)
--- NOTE | 2024-04-20 00:15 | CT Scan Report ---
Exam(s): CT ABDOMEN + PELVIS With Contrast IV Amt: optiray 320 94ml EXAM: CT Abdomen and Pelvis With Intravenous Contrast CLINICAL HISTORY: Reason for exam: abd pain, pancreatitis. TECHNIQUE: Axial computed tomography images of the abdomen and pelvis with intravenous contrast. CTDI is 12.24 mGy and DLP is 358.15 mGy-cm. Automated exposure control was utilized for the study. A dose lowering technique was utilized adhering to the principles of ALARA. CONTRAST: Patient received optiray 320 94ml of IV contrast COMPARISON: CT abdomen and pelvis February 28, 2024. FINDINGS: Lung bases: Unremarkable. No mass. No consolidation. ABDOMEN: Liver: Hepatic steatosis. Gallbladder and bile ducts: Unremarkable. No calcified stones. No ductal dilation. Pancreas: Soft-tissue appearing collection along the undersurface of the pancreatic neck measuring 4.2 x 2.2 cm. This is concerning for a pseudocyst however, pancreatic malignancy must be clinically excluded. This is new when compared to prior exam from February 28, 2024. Edema throughout the pancreas and surrounding inflammation, concerning for pancreatitis. Note, It is unlikely a malignancy would develop and under 2 month interval. Stent in the pancreatic head, extending into the duodenum. No ductal dilation. Spleen: Unremarkable. No splenomegaly. Adrenals: Unremarkable. No mass. Kidneys and ureters: Unremarkable. No solid mass. No hydronephrosis. Stomach and bowel: Diverticulosis, without acute diverticulitis. No small bowel obstruction. No free intraperitoneal air. PELVIS: Appendix: No findings to suggest acute appendicitis. Bladder: Unremarkable. No mass. Reproductive: Unremarkable as visualized. ABDOMEN and PELVIS: Intraperitoneal space: Unremarkable. No free air. No significant fluid collection. Bones/joints: No acute fracture. No dislocation. Soft tissues: Unremarkable. Vasculature: Unremarkable. No abdominal aortic aneurysm. Lymph nodes: Unremarkable. No enlarged lymph nodes. IMPRESSION: 1. Edema throughout the pancreas and surrounding inflammation, concerning for pancreatitis. Soft-tissue appearing collection along the undersurface of the pancreatic neck measuring 4.2 x 2.2 cm. This is concerning for a pseudocyst however, pancreatic malignancy must be clinically excluded. This is new when compared to prior exam from February 28, 2024. Note, It is unlikely a malignancy would develop and under 2 month interval. 2. Stent in the pancreatic head, extending into the duodenum. 3. Diverticulosis, without acute diverticulitis. No small bowel obstruction. No free intraperitoneal air. Electronically signed by: Gavino Cuellar MD 04/20/24 00:14 AM
[2024-04-20 00:37] LABS: BUN Creatinine Ratio 19.2 (10-20); Calcium 8.5 mg/dl (8.6-10.3); Creatinine Clr Calc Pharmacy 74.5 ml/min; Est GFR (African American) 112.6 ml/min; Est GFR (Non-African American) 97.1 ml/min; Magnesium 1.7 mg/dl (1.7-2.4); Phosphorus 1.8 mg/dl (2.5-4.9); Potassium 3.4 mmol/L (3.5-5.1)
[2024-04-20] MEDS: POTASSIUM CHLORIDE / WTR 10 MEQ/100 ML PLCT IV SCH (01:31)
[2024-04-20] MEDS: MAGNESIUM SULFATE / D5W 1 GM/100 ML BAG IV SCH (01:31)
[2024-04-20 04:55] LABS: Basophils # (auto) 0.03 K/uL (0.00-0.20); Basophils % (auto) 0.3 %; Eosinophils # (auto) 0.01 K/uL (0.00-0.50); Eosinophils % (auto) 0.1 %; Hematocrit (blood only) 33.3 % (37.0-47.0); Hemoglobin 11.9 g/dl (12.0-16.0); Immature Granulocytes # (auto) 0.05 K/uL (0.01-0.20); Immature Granulocytes % (auto) 0.5 %; Lymphocytes # (auto) 0.68 K/uL (1.20-3.40); Lymphocytes % (auto) 6.9 %; Mean Corpuscular Hemoglobin 30.3 pg (25.0-34.0); Mean Corpuscular Hgb Conc 35.7 g/dL (32.0-36.0); Mean Corpuscular Volume 84.7 fL (80.0-100.0); Mean Platelet Volume 9.4 fL (9.4-12.4); Monocytes # (auto) 0.61 K/uL (0.11-0.59); Monocytes % (auto) 6.2 %; Neutrophils # (auto) 8.44 K/uL (1.40-6.50); Platelet Count 371 K/uL (130-400); RDW Standard Deviation 40.1 fL (36.4-46.3); Red Blood Count 3.93 M/uL (4.20-5.40); White Blood Count 9.82 K/ul (4.8-10.8)
[2024-04-20 05:12] LABS: Anion Gap 15 (3-11); BUN Creatinine Ratio 15.4 (10-20); Blood Urea Nitrogen 10 mg/dl (6-23); Calcium 8.2 mg/dl (8.6-10.3); Carbon Dioxide 13 mmol/L (21-32); Chloride 99 mmol/L (98-107); Creatinine Clr Calc Pharmacy 88.3 ml/min; Est GFR (African American) 131.5 ml/min; Est GFR (Non-African American) 113.4 ml/min; Glucose 304 mg/dl (70-99(Fasting)); Magnesium 2.4 mg/dl (1.7-2.4); Phosphorus < 1.0 mg/dl (2.5-4.9); Potassium 4.4 mmol/L (3.5-5.1); Sodium 127 mmol/L (136-145)
[2024-04-20 05:13] LABS: Albumin Level 3.3 gm/dl (3.4-5.0); Bilirubin,Total 0.4 mg/dl (0.2-1.0); Calcium 8.3 mg/dl (8.6-10.3); Potassium 4.4 mmol/L (3.5-5.1)
[2024-04-20] MEDS: CEFEPIME 2,000 MG in SYRINGE 0 ML IV SCH (05:25)
[2024-04-20 06:17] LABS: BUN Creatinine Ratio 15.4 (10-20); Creatinine Clr Calc Pharmacy 88.3 ml/min; Est GFR (African American) 131.5 ml/min; Est GFR (Non-African American) 113.4 ml/min; Globulin 3.4 gm/dl (2.5-4.0); Total Protein 6.7 gm/dl (6.0-8.3)
[2024-04-20 07:23] LABS: Estimated Average Glucose 289 mg/dl; Hemoglobin A1C 11.7 % (4.5-5.6)
[2024-04-20] MEDS ORDERED: GLUCAGON FOR INJ 1 MG VIAL IM PRN (08:00)
[2024-04-20] MEDS ORDERED: GLUCOSE 40% GEL 15 GM TUBE PO PRN (08:00)
[2024-04-20] MEDS ORDERED: GLUCOSE 10 TAB/TUBE PO PRN (08:00)
[2024-04-20] MEDS ORDERED: DEXTROSE 50% 50 ML SYRINGE IV PRN (08:00)
[2024-04-20 08:02] LABS: Anion Gap 12 (3-11); BUN Creatinine Ratio 15.3 (10-20); Blood Urea Nitrogen 9 mg/dl (6-23); Calcium 7.9 mg/dl (8.6-10.3); Carbon Dioxide 15 mmol/L (21-32); Chloride 101 mmol/L (98-107); Creatinine Clr Calc Pharmacy 97.3 ml/min; Est GFR (African American) 135.7 ml/min; Est GFR (Non-African American) 117.1 ml/min; Glucose 242 mg/dl (70-99(Fasting)); Potassium 4.1 mmol/L (3.5-5.1); Sodium 128 mmol/L (136-145)
[2024-04-20 08:07] LABS: Magnesium 2.1 mg/dl (1.7-2.4); Phosphorus < 1.0 mg/dl (2.5-4.9)
[2024-04-20] MEDS: FOLIC ACID 1 MG TAB PO SCH (08:11)
[2024-04-20] MEDS: THIAMINE HCL 100 MG TAB PO SCH (08:11)
[2024-04-20] MEDS: PANTOprazole 40 MG in SYRINGE 0 ML IV SCH (08:11)
[2024-04-20] MEDS ORDERED: POTASSIUM PHOS 3 MMOL/1 ML INFUSION IV STA ×2 (08:20→15:09)
--- NOTE | 2024-04-20 08:21 | Critical Care Progress Note ---
Date of Service April 20, 2024 Assessment & Plan (1) DKA (diabetic ketoacidosis): Plan: Reason Critically Ill: 38-year-old female With extensive past medical history including alcoholism, diabetes mellitus, chronic pancreatitis, GERD, anxiety and depression, bipolar disorderwho presents to the ICU in DKA with profound acidosis, currently requiring bicarb with aggressive fluid resuscitation and insulin drip. Neuro - Anxiety and depression, bipolar disorderStable History of alcohol dependencepatient states last drink was 1 week ago. EtOH currently pending. No evidence of withdrawal at this time, could consider ARUN scale if patient becomes symptomatic Cardiac - Tachycardia: Improving Respiratory - No history of pulmonary disease. Currently maintaining oxygen saturation on room air with normal respiratory effort. Continuous monitoring on pulse ox GI - Chronic pancreatitispatient with history of chronic pancreatitis with previous pancreatic stent. Lipase currently elevated at 549, appears to be typical to previous admissions. We will continue with fluid resuscitation and trend lipase for now. Unsure if abdominal pain related to DKA versus pancreatitis, Morphine for abdominal pain as needed. -Full liquid diet GERDPPI RENAL/LYTES - Creatinine within normal limits. -Hypophosphatemia: Oral replacement as well as IV -Hypokalemia resolved - Strict I's and O's ENDO - DKAimproved -Continue insulin drip and fluid resuscitation orders per DKA protocol -Anticipate transition off insulin infusion today HEME - H&H stable, monitor routine CBC ID - Patient with leukocytosis, currently afebrile and lactate within normal limits. -Discontinued cefepime from primary service LINES/IV ACCESS - Peripheral IVs DVT PROPHYLAXIS - SCDs Stable for downgrade out of ICU (2) Chronic pancreatitis: (3) Alcohol use disorder: (4) Bipolar disorder: (5) ANGE (generalized anxiety disorder): (6) GERD (gastroesophageal reflux disease): (7) Hypokalemia: (8) Hypomagnesemia: (9) HTN (hypertension): Admission and Anticipated Discharge Date Admission Date: April 19, 2024 Subjective No overnight events. Physical Exam Physical Exam: General: Alert. nontoxic. Skin: Warm, dry, Head: Atraumatic Ears, nose, mouth and throat: airway patent Cardiovascular: Normal peripheral perfusion Respiratory: no respiratory distress Gastrointestinal: Non distended, tenderness with deep palpation, no guarding no rebound, this does not appear to be a surgical abdomen Musculoskeletal: No deformity Results & Data Results & Data Vital Signs (Past 12 Hours) Vital Signs Temp Pulse Pulse Resp BP BP Pulse Ox 04/20/24 07:46 04/20/24 06:30 134/87 04/20/24 06:30 134/87 04/20/24 06:30 134/87 04/20/24 06:30 100 H 13 100 04/20/24 06:06 102 H 15 99 04/20/24 05:48 99 H 19 99 04/20/24 05:37 36.6 C 04/20/24 05:06 96 H 18 99 04/20/24 04:33 99 H 21 100 04/20/24 04:30 134/92 04/20/24 04:03 99 H 18 100 04/20/24 04:00 141/106 H 04/20/24 03:03 100 H 17 100 04/20/24 03:00 133/101 H 04/20/24 02:06 103 H 23 100 04/20/24 02:00 145/103 H 04/20/24 01:00 99 H 14 100 04/20/24 01:00 156/105 H 04/20/24 00:03 98 H 17 99 04/20/24 00:00 98 H 04/20/24 00:00 151/98 H 04/20/24 00:00 36.8 C 04/19/24 23:00 96 H 19 100 04/19/24 23:00 161/100 H 04/19/24 22:06 95 H 16 100 04/19/24 22:00 141/86 H 04/19/24 21:53 04/19/24 21:45 107 H 16 99 04/19/24 21:45 127/87 04/19/24 21:30 104 H 15 100 04/19/24 21:30 133/89 04/19/24 21:26 36.6 C 04/19/24 21:15 98 H 04/19/24 21:15 36.6 C 100 H 19 132/89 96 04/19/24 21:15 100 H 19 132/89 96 Pulse Ox O2 Del Method O2 Del Method 04/20/24 07:46 Room Air 04/20/24 06:30 04/20/24 06:30 04/20/24 06:30 04/20/24 06:30 04/20/24 06:06 04/20/24 05:48 04/20/24 05:37 04/20/24 05:06 04/20/24 04:33 04/20/24 04:30 04/20/24 04:03 04/20/24 04:00 04/20/24 03:03 04/20/24 03:00 04/20/24 02:06 04/20/24 02:00 04/20/24 01:00 04/20/24 01:00 04/20/24 00:03 04/20/24 00:00 04/20/24 00:00 04/20/24 00:00 04/19/24 23:00 04/19/24 23:00 04/19/24 22:06 04/19/24 22:00 04/19/24 21:53 100 Room Air 04/19/24 21:45 04/19/24 21:45 04/19/24 21:30 04/19/24 21:30 04/19/24 21:26 04/19/24 21:15 04/19/24 21:15 Room Air 04/19/24 21:15 Critical Care Results & Data Vital Signs (Past 12 Hours) Vital Signs Temp Pulse Pulse Resp BP BP Pulse Ox 04/20/24 07:46 04/20/24 06:30 134/87 04/20/24 06:30 134/87 04/20/24 06:30 134/87 04/20/24 06:30 100 H 13 100 04/20/24 06:06 102 H 15 99 04/20/24 05:48 99 H 19 99 04/20/24 05:37 36.6 C 04/20/24 05:06 96 H 18 99 04/20/24 04:33 99 H 21 100 04/20/24 04:30 134/92 04/20/24 04:03 99 H 18 100 04/20/24 04:00 141/106 H 04/20/24 03:03 100 H 17 100 04/20/24 03:00 133/101 H 04/20/24 02:06 103 H 23 100 04/20/24 02:00 145/103 H 04/20/24 01:00 99 H 14 100 04/20/24 01:00 156/105 H 04/20/24 00:03 98 H 17 99 04/20/24 00:00 98 H 04/20/24 00:00 151/98 H 04/20/24 00:00 36.8 C 04/19/24 23:00 96 H 19 100 04/19/24 23:00 161/100 H 04/19/24 22:06 95 H 16 100 04/19/24 22:00 141/86 H 04/19/24 21:53 04/19/24 21:45 107 H 16 99 04/19/24 21:45 127/87 04/19/24 21:30 104 H 15 100 04/19/24 21:30 133/89 04/19/24 21:26 36.6 C 04/19/24 21:15 98 H 04/19/24 21:15 36.6 C 100 H 19 132/89 96 04/19/24 21:15 100 H 19 132/89 96 Pulse Ox O2 Del Method O2 Del Method 04/20/24 07:46 Room Air 04/20/24 06:30 04/20/24 06:30 04/20/24 06:30 04/20/24 06:30 04/20/24 06:06 04/20/24 05:48 04/20/24 05:37 04/20/24 05:06 04/20/24 04:33 04/20/24 04:30 04/20/24 04:03 04/20/24 04:00 04/20/24 03:03 04/20/24 03:00 04/20/24 02:06 04/20/24 02:00 04/20/24 01:00 04/20/24 01:00 04/20/24 00:03 04/20/24 00:00 04/20/24 00:00 04/20/24 00:00 04/19/24 23:00 04/19/24 23:00 04/19/24 22:06 04/19/24 22:00 04/19/24 21:53 100 Room Air 04/19/24 21:45 04/19/24 21:45 04/19/24 21:30 04/19/24 21:30 04/19/24 21:26 04/19/24 21:15 04/19/24 21:15 Room Air 04/19/24 21:15 Lab & Micro Results (Past 24 Hours) RBC 3.93 M/uL (4.20-5.40) L 04/20/24 WBC 9.82 K/ul (4.8-10.8) 04/20/24 Hgb 11.9 g/dl (12.0-16.0) L 04/20/24 Hct 33.3 % (37.0-47.0) L 04/20/24 MCV 84.7 fL (80.0-100.0) 04/20/24 MCH 30.3 pg (25.0-34.0) 04/20/24 MCHC 35.7 g/dL (32.0-36.0) 04/20/24 RDW Standard Deviation 40.1 fL (36.4-46.3) 04/20/24 RDW Coefficient of Variation 13.0 % (11.5-14.5) 04/20/24 Plt Count 371 K/uL (130-400) 04/20/24 MPV 9.4 fL (9.4-12.4) 04/20/24 Neutrophils (%) (Auto) 86.0 % 04/20/24 Lymphocytes (%) (Auto) 6.9 % 04/20/24 Monocytes # (Auto) 0.61 K/uL (0.11-0.59) H 04/20/24 Eosinophils # (Auto) 0.01 K/uL (0.00-0.50) 04/20/24 Immature Granulocyte % (Auto) 0.5 % 04/20/24 Neutrophils # (Auto) 8.44 K/uL (1.40-6.50) H 04/20/24 Lymphocytes # (Auto) 0.68 K/uL (1.20-3.40) L 04/20/24 Monocytes # (Auto) 0.61 K/uL (0.11-0.59) H 04/20/24 Eosinophils # (Auto) 0.01 K/uL (0.00-0.50) 04/20/24 Basophils # (Auto) 0.03 K/uL (0.00-0.20) 04/20/24 Immature Granulocyte # (Auto) 0.05 K/uL (0.01-0.20) 4 Na 128 mmol/L (136-145) L 04/20/24 K 4.1 mmol/L (3.5-5.1) 04/20/24 Cl 101 mmol/L (98-107) 04/20/24 CO2 15 mmol/L (21-32) L 04/20/24 Anion Gap 12 (3-11) H 04/20/24 BUN 9 mg/dl (6-23) 04/20/24 Creatinine 0.59 mg/dl (0.6-1.2) L 04/20/24 Estimated GFR ( Amer) 135.7 ml/min 04/20/24 Estimated GFR (Non-Af Amer) 117.1 ml/min 04/20/24 BUN/Creatinine Ratio 15.3 (10-20) 04/20/24 Glu 242 mg/dl (70-99(Fasting)) H 04/20/24 Ca 7.9 mg/dl (8.6-10.3) L 04/20/24 Phosphorus Level < 1.0 mg/dl (2.5-4.9) L* 04/20/24 Total Bilirubin 0.4 mg/dl (0.2-1.0) 04/20/24 AST 41 U/L (13-39) H 04/20/24 ALT 66 U/L (7-52) H 04/20/24 Alkaline Phosphatase 139 U/L (34-104) H 04/20/24 TP 6.7 gm/dl (6.0-8.3) 04/20/24 Albumin 3.3 gm/dl (3.4-5.0) L 04/20/24 Globulin 3.4 gm/dl (2.5-4.0) 04/20/24 Albumin/Globulin Ratio 1.0 (0.9-2) 04/20/24 Mg 2.1 mg/dl (1.7-2.4) 04/20/24 07:13 Calcium Level 7.9 mg/dl (8.6-10.3) L 04/20/24 07:13 Prothromb Time International Ratio 0.9 (0.9-1.1) 04/19/24 15:3 2 Venous Blood pH 7.35 (7.36-7.41) L 04/20/24 07:13 Arterial Blood pH 7.35 (7.35-7.45) 04/19/24 20:21 Arterial Blood Partial Pressure CO2 19 mmHg (35-46) L 04/19/24 20:21 Arterial Blood Partial Pressure O2 136 mmHg (80-95) H 04/19/24 20:21 Arterial Blood HCO3 11 mmol/L (19-24) L 04/19/24 20:21 Arterial Blood Base Excess -12.7 mEq/L (-9-1.8) L 04/19/24 20:2 1 Arterial Blood Oxygen Saturation 99.6 % (90-95) H 04/19/24 20:2 1 Blood Gas Oxygen Given ROOM AIR 04/19/24 20:21 Isiah Test Pos (Pos) 04/19/24 20:21 Diagnostic Findings (Past 24 Hours) Chest X-Ray 04/19/24 15:38 SINGLE VIEW CHEST CLINICAL HISTORY: Dyspnea FINDINGS: An AP, portable, upright chest radiograph is compared to study dated 03/10/2023. The cardiomediastinal silhouette is unremarkable. The lungs and pleural spaces are clear. No pneumothorax is seen. The bony thorax is grossly intact. IMPRESSION: No active disease in the chest. ACT 112: Negative or not required by law. Electronically signed by: Raghu Mariano M.D. 04/19/2024 4:56 PM Abdomen/Pelvis CT 04/19/24 17:17 Exam(s): CT ABDOMEN + PELVIS With Contrast IV Amt: optiray 320 94ml EXAM: CT Abdomen and Pelvis With Intravenous Contrast CLINICAL HISTORY: Reason for exam: abd pain, pancreatitis. TECHNIQUE: Axial computed tomography images of the abdomen and pelvis with intravenous contrast. CTDI is 12.24 mGy and DLP is 358.15 mGy-cm. Automated exposure control was utilized for the study. A dose lowering technique was utilized adhering to the principles of ALARA. CONTRAST: Patient received optiray 320 94ml of IV contrast COMPARISON: CT abdomen and pelvis February 28, 2024. FINDINGS: Lung bases: Unremarkable. No mass. No consolidation. ABDOMEN: Liver: Hepatic steatosis. Gallbladder and bile ducts: Unremarkable. No calcified stones. No ductal dilation. Pancreas: Soft-tissue appearing collection along the undersurface of the pancreatic neck measuring 4.2 x 2.2 cm. This is concerning for a pseudocyst however, pancreatic malignancy must be clinically excluded. This is new when compared to prior exam from February 28, 2024. Edema throughout the pancreas and surrounding inflammation, concerning for pancreatitis. Note, It is unlikely a malignancy would develop and under 2 month interval. Stent in the pancreatic head, extending into the duodenum. No ductal dilation. Spleen: Unremarkable. No splenomegaly. Adrenals: Unremarkable. No mass. Kidneys and ureters: Unremarkable. No solid mass. No hydronephrosis. Stomach and bowel: Diverticulosis, without acute diverticulitis. No small bowel obstruction. No free intraperitoneal air. PELVIS: Appendix: No findings to suggest acute appendicitis. Bladder: Unremarkable. No mass. Reproductive: Unremarkable as visualized. ABDOMEN and PELVIS: Intraperitoneal space: Unremarkable. No free air. No significant fluid collection. Bones/joints: No acute fracture. No dislocation. Soft tissues: Unremarkable. Vasculature: Unremarkable. No abdominal aortic aneurysm. Lymph nodes: Unremarkable. No enlarged lymph nodes. IMPRESSION: 1. Edema throughout the pancreas and surrounding inflammation, concerning for pancreatitis. Soft-tissue appearing collection along the undersurface of the pancreatic neck measuring 4.2 x 2.2 cm. This is concerning for a pseudocyst however, pancreatic malignancy must be clinically excluded. This is new when compared to prior exam from February 28, 2024. Note, It is unlikely a malignancy would develop and under 2 month interval. 2. Stent in the pancreatic head, extending into the duodenum. 3. Diverticulosis, without acute diverticulitis. No small bowel obstruction. No free intraperitoneal air. Electronically signed by: Gavino Cuellar MD 04/20/24 00:14 AM I & O Totals 24 Hours 04/19/24 04/20/24 04/21/24 06:59 06:59 06:59 Intake Total 6006.389 / 6006.389 7.84 / 7.84 Output Total 1600 / 1600 Balance 4406.389 / 4406.389 7.84 / 7.84 Cumulative 04/19/24 15:10 thru 04/20/24 07:30 Intake Total 6014.229 Output Total 1600 Balance 4414.229 RT Ventilator Mngmt (Last Documented) Ventilator Ordered Settings Respiratory Rate 13 04/20/24 06:30 Ventilator - PT Measurements Respiratory Rate 13 Coding Level of Care Code 01127 SUB INP/OBS CARE 3/50MIN Diagnoses DKA (diabetic ketoacidosis) E11.10 Chronic pancreatitis K86.1 Alcohol use disorder F10.90 Bipolar disorder F31.9 ANGE (generalized anxiety disorder) F41.1 GERD (gastroesophageal reflux disease) K21.9 Hypokalemia E87.6 Hypomagnesemia E83.42 HTN (hypertension) I10
[2024-04-20] MEDS: POTASSIUM PHOSPHATE 15 MMOL in SODIUM CHLORIDE 0.9% 250 ML IV ONE (09:10)
[2024-04-20] MEDS: POT PHOSPHATE MONOBASIC W/ SOD TAB PO ONE (09:46)
--- NOTE | 2024-04-20 12:21 | Gastrointestinal Consultation ---
Date of Consultation April 20, 2024 Assessment & Plan (1) Pancreatitis: Pancreatitis the patient has chronic pancreatitis which has been present for the last 8 years she is thought to be secondary to alcohol consumption however the patient continues to consume alcohol he was just discharged in the hospital about a month ago with the same problems she has a pancreatic stent which was placed in September and I think it may be occluded she had plans to have it replaced as an outpatient at the end of this month of note there is a new fluid collection in the pancreas which I think is most likely a pseudocyst the patient along with this the patient also has DKA so I am not fully sure whether the symptoms are secondary to DKA or the secondary to pancreatitis at the current time avoid 1. Keep on ice chips 2. IV hydration 3. Alcohol abstinence and patient discharged 4. The patient will probably need to be transferred to [facility] [address] to have a stent evaluated as she is developing a pseudocyst also she is already scheduled to have this done I think at the end of April and it may need to be e xpedited once her metabolic abnormalities have been resolved currently she is critically ill with multiple electrolyte as when metabolic abnormalities which need to be resolved prior to any endoscopic intervention Thank you for allowing us to take part in the care of your patient will continue to follow her with you History of Present Illness Reason for Consultation: Pancreatitis Requesting Physician: Bryn Saldivar Attending Physician: Xiomy Valdez MD History of Present Illness 38-year-old female with past medical history significant for diabetes, allergic rhinitis, moderate persistent asthma, heart murmur, hypertension, GERD, chronic neck pain, history of alcoholism, ADHD, depression, depression, general anxiety disorder, who was just discharged from the hospital at the end of February where she was also admitted for pancreatitis in the setting of alcohol use of note she has had pancreatitis for the last 8 years with multiple episodes and she states she has had multiple stents placed in the past also she is followed at [facility] [address] and she is planned to undergo a repeat stent exchange in the end of this month despite having these multiple episodes of pancreatitis she continues to drink and and had a drink about a week ago at the current time when she is admitted she has severe metabolic abnormalities and she is in DKA she is complaints of nausea vomiting and abdominal pain she says she is feeling generally unwell as mentioned she has severe metabolic abnormalities she does not feel like eating anything and she cannot keep anything down she is currently in the ICU and her electrolytes are being repleted as well as she is on an insulin drip Allergies Allergy/AdvReac Type Severity Reaction Status Date / Time bee venom protein (honey bee) Allergy Severe ANAPHYLAXIS Verified 04/19/24 19:26 Home Medications Medication Instructions Recorded Confirmed Type epinephrine 0.3 mg/0.3 mL 0.3 mg IM UD PRN Allergic Reaction 11/18/21 04/19/24 History injection, auto-injector Medical Marijuana 1 dose inhalation HS PRN Sleep 02/08/22 04/19/24 History insulin aspart U-100 100 unit/mL 5 unit (0.05 mL) SC ACHS #10 mL 03/06/24 04/19/24 Rx subcutaneous solution (Novolog U-100 Insulin aspart) loratadine 10 mg tablet (Wal-itin) 10 mg PO HS #7 tabs 03/06/24 04/19/24 Rx magnesium chloride 64 mg 64 mg PO DAILY #30 tabs 03/06/24 04/19/24 Rx (magnesium chloride) tablet,delayed release insulin glargine 100 unit/mL 12 unit SC QAM 04/19/24 04/19/24 History subcutaneous solution (Lantus U-100 Insulin) Patient History Medical History Vomiting Acute pancreatitis Epigastric abdominal pain Encounter for pre-operative examination History of prolonged Q-T interval on ECG Pancreatic stones Chronic neck pain Medical marijuana use Post traumatic stress disorder (PTSD) Diabetes IDDM Hgb A1C 12.3 in 08/2023 Surgical History History of tonsillectomy and adenoidectomy History of esophagogastroduodenoscopy (EGD) History of ERCP Family History Other Adopted No family history of adverse response to anesthesia Social History Smoking Status: Former smoker Tobacco Type: E-cigarettes / Vaping Second Hand Exposure: Yes (at work); Do You Dip or Chew Tobacco: No; Hx Alcohol Use: No Hx Substance Use: No Preferred Language: Nigerien 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: Effective 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 Beliefs That Will Affect Care: None marital status: Single Current Living Situation: Family Current Living Situation Comment: family Feels Safe at Home: Yes Assistive Devices: None Review of Systems Review of Systems: A 10 point review of systems was done Physical Exam Constitutional: + ill appearing and + thin Neck: Supple Respiratory: Patient is speaking without respiratory compromise clear anteriorly Cardiovascular: S1 and S2 Gastrointestinal (Abdomen): Mildly distended soft positive for tenderness diffusely as well as in the epiga stric region Psychiatric: Awake alert and oriented Results & Data Vital Signs (Past 12 Hours) Vital Signs Temp Pulse Resp BP Pulse Ox O2 Del Method 04/20/24 09:09 101 H 12 99 04/20/24 09:00 137/94 04/20/24 08:54 98 H 14 99 04/20/24 08:30 99 H 16 100 04/20/24 08:30 126/85 04/20/24 08:00 144/93 H 04/20/24 08:00 104 H 20 99 04/20/24 08:00 36.6 C 04/20/24 07:46 Room Air 04/20/24 07:31 129/78 04/20/24 07:30 98 H 17 100 04/20/24 07:06 98 H 13 100 04/20/24 07:00 133/101 H 04/20/24 06:30 134/87 04/20/24 06:30 134/87 04/20/24 06:30 134/87 04/20/24 06:30 100 H 13 100 04/20/24 06:06 102 H 15 99 04/20/24 05:48 99 H 19 99 04/20/24 05:37 36.6 C 04/20/24 05:06 96 H 18 99 04/20/24 04:33 99 H 21 100 04/20/24 04:30 134/92 04/20/24 04:03 99 H 18 100 04/20/24 04:00 141/106 H 04/20/24 03:03 100 H 17 100 04/20/24 03:00 133/101 H 04/20/24 02:06 103 H 23 100 04/20/24 02:00 145/103 H 04/20/24 01:00 99 H 14 100 09/07/24 01:00 156/105 H PG Care Time/CCT Total # of Minutes Spent Total Time Spent with Patient: Total time spent is greater than 50% in coordination of care (as documented) at patient's floor/unit and/or counseling patient: Coding Level of Care Code 31299 INT INP/OBS CARE 1/40MIN Medical Decision Making High Complexity Diagnoses Pancreatitis K85.90
--- NOTE | 2024-04-20 13:43 | Hospitalist Progress Note ---
Date of Service April 20, 2024 Assessment & Plan (1) DKA (diabetic ketoacidosis): Plan: Patient is 38-year-old female with PMH HTN, DM II, ETOH use, recurrent pancreatitis, with current stent, asthma, bipolar disorder, anxiety presented to ER with complaint of abdominal pain, nausea, vomiting and shortness of breath. In ER patient afebrile, mild tachycardia otherwise hemodynamically stable White count was elevated 18,000 likely still reactive and blood sugar was 569 A1c 10.2 on 02/2024 In ER given total 2 L Plasma-Lyte, 1 L NSS, IV Protonix, IV Pepcid, IV promethazine, sodium bicarb, cefepime, started on insulin drip Plan to transition to D5NS+K when <250, insulin drip Has been on insulin drip with improvement of blood sugar Always on n.p.o. now started with clears and if tolerated will change treatment to subcu insulin Appreciate curriculum writer input and recommendation Likely transferred to telemetry unit in the afternoon Electrolyte imbalance Has hyponatremia-corrected value will be higher, hypokalemia and hypophosphatemia Has been getting replacement and will be monitored History ETOH use ETOH level pending Patient reports last drink was 3 weeks ago Monitor (2) Pancreatitis: Plan: Likely secondary to alcoholism History recurrent pancreatitis, chronic pancreatitis History pancreatic duct stent in September of this year Lipase: 549, T. bili: 0.5, AST: 91, ALT: 112, alk phos: 216 CT abdomen pelvis-edema throughout the pancreas and surrounding inflammation concerning of pancreatitis, soft tissue appearing collection along the undersurface of the pancreatic neck measuring 4.2 x 2.2 cm. Concerning of a pseudocyst however pancreatic malignancy must be clinically evaluated and this was new compared to the study from February 2024 Was scheduled to have outpatient ERCP, stent removal with possible stent exchange on 05/08/[address] Nielsen Will likely need to expedite the process following improvement of her current condition Lipase is improved to 273 diarrhea and Appreciate GI input and recommendation-will need to expedite the process of ERCP and possible stent removal (3) ALEXIS (acute kidney injury): Plan: BUN: 26, Cr: 1.39 Received IVF Monitor renal functions Avoid nephrotoxic agents when possible Creatinine has been normalized (4) Hyponatremia: Plan: Hyponatremia Corrected sodium 131 for glucose 569 Monitor BMP (5) Bipolar disorder: Plan: History of bipolar disorder and anxiety Reports previously was on Abilify however reports has not taken for over 9months (6) Asthma: Plan: Do not suspect acute exacerbation at this time CXR without infiltrate Not on inhalers at home DVT Prophylaxis SCDs CODE STATUS- full Admission and Anticipated Discharge Date Admission Date: April 19, 2024 Subjective 04/20/2024 The patient was seen and examined in ICU She was admitted with chronic abdominal pain associate with nausea, vomiting for a long time with worsening shortness of breath recently History of chronic pancreatitis and also status post stent placement in September of this year Presented with DKA with electrolyte abnormalities and has been feeling little better in the hospital Still has significant pain and not being able to eat and drink Review of Systems Review of Systems: All systems reviewed and are unremarkable except as noted below Physical Exam Physical Exam: Lying in bed with acute distress due to abdominal pain Constitutional: + ill appearing and + thin Eyes: PERRL, conjunctivae normal, anicteric sclerae ENMT: external ear and nose normal, oropharynx normal Neck: trachea midline, no thyromegaly Respiratory: no respiratory distress Auscultation: lungs clear to auscultation bilaterally Cardiovascular: Rate/Rhythm: regular rate and regular rhythm; not tachycardic Heart Sounds: normal S1 and normal S2; no murmur Extremities: no edema Gastrointestinal (Abdomen): Inspection/Auscultation: normal bowel sounds; abdomen not distended Percussion/Palpation: + abdomen tender (Epigastrium and central abdomen) and abdomen soft Musculoskeletal: No acute arthritis involving any of the joint Neurologic: normal touch/pain/proprioception and moves all extremities; no focal motor deficits Psychiatric: A+Ox3, euthymic affect Lymphatic: no cervical or axillary lymphadenopathy Results & Data Results & Data Vital Signs (Past 12 Hours) Vital Signs Temp Pulse Resp BP Pulse Ox O2 Del Method 04/20/24 13:03 105 H 20 100 04/20/24 13:00 136/97 04/20/24 12:03 98 H 18 97 04/20/24 12:00 143/107 H 04/20/24 11:57 102 H 14 100 04/20/24 11:03 95 H 23 100 Room Air 04/20/24 11:00 132/96 04/20/24 09:09 101 H 12 99 04/20/24 09:00 137/94 09/07/24 08:54 98 H 14 99 04/20/24 08:30 99 H 16 100 04/20/24 08:30 126/85 04/20/24 08:00 144/93 H 04/20/24 08:00 104 H 20 99 04/20/24 08:00 36.6 C 04/20/24 07:46 Room Air 04/20/24 07:31 129/78 04/20/24 07:30 98 H 17 100 04/20/24 07:06 98 H 13 100 04/20/24 07:00 133/101 H 04/20/24 06:30 134/87 04/20/24 06:30 134/87 04/20/24 06:30 134/87 04/20/24 06:30 100 H 13 100 04/20/24 06:06 102 H 15 99 04/20/24 05:48 99 H 19 99 04/20/24 05:37 36.6 C 04/20/24 05:06 96 H 18 99 04/20/24 04:33 99 H 21 100 04/20/24 04:30 134/92 04/20/24 04:03 99 H 18 100 04/20/24 04:00 141/106 H 04/20/24 03:03 100 H 17 100 04/20/24 03:00 133/101 H 04/20/24 02:06 103 H 23 100 04/20/24 02:00 145/103 H Laboratory Results Short CBC 04/19/24 04/20/24 Range/Units 15:32 04:17 WBC 18.07 H 9.82 (4.8-10.8) K/ul Hgb 14.5 11.9 L (12.0-16.0) g/dl Hct 42.2 33.3 L (37.0-47.0) % Plt Count 610 H 371 (130-400) K/uL BMP 04/19/24 04/19/24 04/19/24 15:32 20:21 23:37 Sodium 123 L 133 L D 130 L Potassium 3.3 L 2.7 L 3.4 L D Chloride 74 L 91 L 93 L Carbon Dioxide 6 L* 11 L 9 L* BUN 26 H 18 15 Creatinine 1.39 H 0.75 D 0.78 Glucose 569 H* 185 H 284 H Calcium 9.4 7.4 L D 8.5 L 04/20/24 04/20/24 04/20/24 04:17 04:17 04:17 Sodium 127 L 126 L Potassium 4.4 D 4.4 Chloride 99 Carbon Dioxide BUN Creatinine Glucose Calcium 04/20/24 04/20/24 04/20/24 04:17 04:17 04:17 Sodium Potassium Chloride 99 Carbon Dioxide 13 L 12 L BUN 10 10 Creatinine 0.65 Glucose Calcium 04/20/24 04/20/24 04/20/24 04:17 04:17 04:17 Sodium Potassium Chloride Carbon Dioxide BUN Creatinine 0.65 Glucose 304 H* 298 H Calcium 8.2 L 8.3 L 04/20/24 07:13 Sodium 128 L Potassium 4.1 Chloride 101 Carbon Dioxide 15 L BUN 9 Creatinine 0.59 L Glucose 242 H Calcium 7.9 L Cardiac Enzymes 04/19/24 Range/Units 20:21 Total Creatine Kinase 109 (26-192) U/L Liver Function 04/19/24 04/20/24 Range/Units 15:32 04:17 Total Bilirubin 0.5 0.4 (0.2-1.0) mg/dl AST 91 H 41 H (13-39) U/L ALT 112 H 66 H (7-52) U/L Alkaline Phosphatase 216 H 139 H (34-104) U/L Albumin 4.5 3.3 L (3.4-5.0) gm/dl Urine 04/19/24 Range/Units 16:46 Urine Color Yellow Urine Appearance Clear (Clear) Urine pH 5.5 (4.5-7.5) Ur Specific [place] 1.021 (1.000-1.030) Urine Protein 2+ H (Negative) Urine Glucose (UA) 3+ H (Negative) Medications Administered Current Inpatient Medications Dextrose (Dextrose 50% 50 Ml Syringe) 25 - 50 ml IV UD PRN; Protocol PRN Reason: Hypoglycemia Protocol Stop: 05/20/24 07:59 Folic Acid (Folic Acid 1 Mg Tab) 1 mg PO QAM GEOVANNA Stop: 05/20/24 08:59 Last Admin: 04/20/24 08:11 Dose: 1 mg Glucagon (Glucagon For Inj 1 Mg Vial) 1 mg IM UD PRN; Protocol PRN Reason: Hypoglycemia Protocol Stop: 05/20/24 07:59 Glucose (Glucose 40% Gel 15 Gm Tube) 15 - 30 gm PO UD PRN; Protocol PRN Reason: Hypoglycemia Protocol Stop: 05/20/24 07:59 Glucose (Glucose 10 Tab/Tube) 4 - 8 tab PO UD PRN; Protocol PRN Reason: Hypoglycemia Protocol Stop: 05/20/24 07:59 Insulin Human Regular 250 (units/ Sodium Chloride) 250 mls @ 2.7 mls/hr IV .Q24H GEOVANNA; Protocol Stop: 05/19/24 15:44 Last Titration: 04/20/24 12:30 Dose: 2.7 units/hr, 2.7 mls/hr Pantoprazole Sodium 40 mg/ (Syringe) 10 mls @ 5 mls/min IV BID GEOVANNA Stop: 05/20/24 08:59 Last Admin: 04/20/24 08:11 Dose: 5 mls/min Potassium Chloride 40 meq/ (Dextrose/Sodium Chloride) 1,000 ml in 1,020 mls @ 150 mls/hr IV .Q6H48M [facility] Stop: 05/19/24 21:14 Last Admin: 04/20/24 10:46 Dose: 150 mls/hr Insulin Aspart (Insulin Aspart Per Unit Charge) 0 units SC ACHS [facility] Stop: 05/19/24 20:59 Last Admin: 04/20/24 10:31 Dose: Not Given Miscellaneous (Carbohydrates For Hypoglycemia ) 15 - 30 gm PO UD PRN PRN Reason: Hypoglycemia Treatment Stop: 05/20/24 07:59 Miscellaneous Information (Pharmacy Glycemic Mgmt Consult) 1 each N/A UD PRN PRN Reason: Consult Stop: 05/19/24 19:48 Morphine Sulfate (Morphine Sulfate 4 Mg/Ml 1 Ml Carp\Vial) 4 mg IV Q3H PRN PRN Reason: Pain Stop: 05/03/24 19:40 Last Admin: 04/20/24 10:46 Dose: 4 mg Thiamine HCl (Thiamine Hcl 100 Mg Tab) 100 mg PO QAM [facility] Stop: 05/20/24 08:59 Last Admin: 04/20/24 08:11 Dose: 100 mg (6) Asthma Asthma severity: moderate Asthma persistence: persistent Asthma complication type: uncomplicated Qualified Code(s): J45.40 - Moderate persistent asthma, uncomplicated
--- NOTE | 2024-04-20 13:50 | Pharmacy Report ---
Pharmacy Glycemic Short Note 2 - Date of Service April 20, 2024 - Glycemic Short BSG Results (Last 24 hours): 04/19/24 04/19/24 04/19/24 15:32 15:39 15:58 Glucose 569 H* POC Glucose 495 H* POC Glucose (other) 584 H* 04/19/24 04/19/24 04/19/24 17:39 18:47 19:24 Glucose POC Glucose 370 H* 234 H 212 H POC Glucose (other) 04/19/24 04/19/24 04/19/24 20:21 20:27 21:11 Glucose 185 H POC Glucose 180 H 202 H POC Glucose (other) 04/19/24 04/19/24 04/19/24 22:23 23:37 23:38 Glucose 284 H POC Glucose 257 H 303 H* POC Glucose (other) 04/20/24 04/20/24 04/20/24 00:20 00:53 02:06 Glucose POC Glucose 306 H* 346 H* 343 H* POC Glucose (other) 04/20/24 04/20/24 04/20/24 02:56 04:00 04:17 Glucose 304 H* POC Glucose 342 H* 282 H POC Glucose (other) 04/20/24 04/20/24 04/20/24 04:17 05:33 06:34 Glucose 298 H POC Glucose 285 H 270 H POC Glucose (other) 04/20/24 04/20/24 04/20/24 07:13 08:20 09:19 Glucose 242 H POC Glucose 195 H 152 H POC Glucose (other) 04/20/24 04/20/24 10:51 12:34 Glucose POC Glucose 155 H 189 H POC Glucose (other) OUTPATIENT ANTIDIABETIC REGIMEN: * Lantus 12 units SQ qAM * Novolog 5 units SQ ACHS HbA1C: 11.7% ASSESSMENT: * Pt is a 38 year old female with a history of DM2 admitted in DKA. Pharmacy consulted to assist with inpatient glycemic management. * Initial labs: pH-7.02, AG-43, bicarb-6, BSG-495. Initiated on insulin drip per DKA protocol. * Today BSGs within goal range, no PO intake. D51/2NS with 40KCl @ 150mL/hr. Insulin drip at ~ 2.7 unit/hr the last several hours. * Will continue insulin drip per DKA protocol until AG<12, bicarb >/=15. D/w hospitalist - plan to continue insulin drip through tonight given still not tolerating a diet. Will reassess for possible transition to SQ in AM. PLAN FOR INPATIENT GLYCEMIC CONTROL: * Hold outpatient oral diabetes medications * Basal insulin * insulin drip (DKA protocol) --> plan to continue through tonight/overnight and reassess in AM for possible SQ transition * Bolus insulin * NovoLog per scale ACHS or Q6hrs while NPO * Goal Range: Low 150 mg/dL - High 250 mg/dL * Correction Factor: - mg/dL/unit * Nutritional / Prandial insulin per carb ratio of 1 unit per 12 grams CHO consumed
[2024-04-20 14:59] LABS: Calcium 7.4 mg/dl (8.6-10.3); Creatinine Clr Calc Pharmacy 124.8 ml/min; Est GFR (African American) 147.3 ml/min; Est GFR (Non-African American) 127.1 ml/min; Potassium 3.6 mmol/L (3.5-5.1)
[2024-04-20] MEDS: INSULIN ASPART PER UNIT CHARGE SC SCH (17:08)
[2024-04-20] MEDS: POT PHOSPHATE MONOBASIC W/ SOD TAB PO SCH (17:11)
[2024-04-20] MEDS: POTASSIUM PHOSPHATE 24 MMOL in SODIUM CHLORIDE 0.9% 500 ML IV ONE (17:41)
--- NOTE | 2024-04-20 21:55 | Electrocardiogram Report ---
Test Reason : Blood Pressure : */* mmHG Vent. Rate : 111 BPM Atrial Rate : 111 BPM P-R Int : 130 ms QRS Dur : 86 ms QT Int : 320 ms P-R-T Axes : 80 61 -50 degrees QTcB Int : 435 ms Sinus tachycardia Possible Left atrial enlargement Minimal voltage criteria for LVH, may be normal variant Septal infarct , age undetermined Nonspecific T wave abnormality Abnormal ECG When compared with ECG of 28-Feb-2024 16:44, Septal infarct is now Present Confirmed by Oscar Barraza ([id number]) on 04/20/2024 9:55:09 PM Referred By: REFERRED SELF Confirmed By: Oscar Barraza
[2024-04-21] MEDS: MoRPHine SULFATE 4 MG/ML 1 ML CARP\\VIAL IV STA (01:23)
[2024-04-21 05:19] LABS: Basophils # (auto) 0.02 K/uL (0.00-0.20); Basophils % (auto) 0.3 %; Eosinophils # (auto) 0.05 K/uL (0.00-0.50); Eosinophils % (auto) 0.8 %; Hematocrit (blood only) 30.9 % (37.0-47.0); Hemoglobin 10.9 g/dl (12.0-16.0); Immature Granulocytes # (auto) 0.03 K/uL (0.01-0.20); Immature Granulocytes % (auto) 0.5 %; Lymphocytes # (auto) 1.23 K/uL (1.20-3.40); Lymphocytes % (auto) 20.7 %; Mean Corpuscular Hgb Conc 35.3 g/dL (32.0-36.0); Mean Corpuscular Volume 85.1 fL (80.0-100.0); Mean Platelet Volume 9.4 fL (9.4-12.4); Monocytes # (auto) 0.35 K/uL (0.11-0.59); Monocytes % (auto) 5.9 %; Neutrophils # (auto) 4.27 K/uL (1.40-6.50); Neutrophils % (auto) 71.8 %; Platelet Count 308 K/uL (130-400); RDW Coefficient of Variation 13.3 % (11.5-14.5); RDW Standard Deviation 41.1 fL (36.4-46.3); Red Blood Count 3.63 M/uL (4.20-5.40); White Blood Count 5.95 K/ul (4.8-10.8)
[2024-04-21 05:35] LABS: Alanine Aminotransferase 47 U/L (7-52); Albumin Globulin Ratio 0.9 (0.9-2); Albumin Level 2.9 gm/dl (3.4-5.0); Alkaline Phosphatase 112 U/L (34-104); Anion Gap 10 (3-11); Aspartate Aminotransferase 27 U/L (13-39); BUN Creatinine Ratio 5.6 (10-20); Bilirubin,Total 0.3 mg/dl (0.2-1.0); Blood Urea Nitrogen 2 mg/dl (6-23); Calcium 6.7 mg/dl (8.6-10.3); Carbon Dioxide 21 mmol/L (21-32); Chloride 100 mmol/L (98-107); Creatinine Clr Calc Pharmacy 159.4 ml/min; Est GFR (African American) > 150.0 ml/min; Est GFR (Non-African American) 137.8 ml/min; Globulin 3.2 gm/dl (2.5-4.0); Glucose 177 mg/dl (70-99(Fasting)); Potassium 3.3 mmol/L (3.5-5.1); Sodium 131 mmol/L (136-145); Total Protein 6.1 gm/dl (6.0-8.3)
[2024-04-21] MEDS: ONDANSETRON INJ 2 MG/ML 2 ML VIAL IV STA (06:57)
[2024-04-21 07:31] LABS: Phosphorus 1.5 mg/dl (2.5-4.9)
[2024-04-21] MEDS ORDERED: POTASSIUM PHOS 3 MMOL/1 ML INFUSION IV STA (07:33)
[2024-04-21] MEDS: LANTUS PER UNIT CHARGE SC SCH (08:54)
[2024-04-21] MEDS: POTASSIUM PHOSPHATE 30 MMOL in SODIUM CHLORIDE 0.9% 500 ML IV ONE (08:57)
[2024-04-21] MEDS: hydrOXYzine HCl 10 MG TAB PO PRN (11:01)
--- NOTE | 2024-04-21 11:29 | Pharmacy Report ---
Pharmacy Glycemic Short Note 2 - Date of Service April 21, 2024 - Glycemic Short BSG Results (Last 24 hours): 04/20/24 04/20/24 04/20/24 12:34 14:15 14:16 Glucose 167 H POC Glucose 189 H 154 H 04/20/24 04/20/24 04/20/24 16:00 17:08 18:01 Glucose POC Glucose 134 H 113 H 156 H 04/20/24 04/20/24 04/20/24 19:07 20:01 22:03 Glucose POC Glucose 240 H 233 H 175 H 04/20/24 04/21/24 04/21/24 23:59 01:05 02:03 Glucose POC Glucose 138 H 98 98 04/21/24 04/21/24 04/21/24 03:03 04:01 04:48 Glucose 177 H POC Glucose 152 H 196 H 04/21/24 04/21/24 04/21/24 04:52 06:57 08:53 Glucose POC Glucose 171 H 124 H 208 H 04/21/24 11:03 Glucose POC Glucose 162 H OUTPATIENT ANTIDIABETIC REGIMEN: * Lantus 12 units SQ qAM * Novolog 5 units SQ ACHS HbA1C: 11.7% ASSESSMENT: 04/21 * Anion gap closed, blood sugar at goal, labs improving except for K & phos, repleting. * Will give basal w/ 3 hour overlap with insulin drip (currently running at 0.8units/hr). * Patient tolerated clear liquid diet for breakfast, starting full liquid at lunch today. 04/20 * Pt is a 38 year old female with a history of DM2 admitted in DKA. Pharmacy consulted to assist with inpatient glycemic management. * Initial labs: pH-7.02, AG-43, bicarb-6, BSG-495. Initiated on insulin drip per DKA protocol. * Today BSGs within goal range, no PO intake. D51/2NS with 40KCl @ 150mL/hr. Insulin drip at ~ 2.7 unit/hr the last several hours. * Will continue insulin drip per DKA protocol until AG<12, bicarb >/=15. D/w hospitalist - plan to continue insulin drip through tonight given still not tolerating a diet. Will reassess for possible transition to SQ in AM. PLAN FOR INPATIENT GLYCEMIC CONTROL: * Basal insulin * insulin drip (DKA protocol) - running at 0.8units/hr - DC at 1100 * Lantus 12 units SQ Daily started at 0800 today * Bolus insulin * NovoLog per scale ACHS or Q6hrs while NPO * Goal Range: Low 140 mg/dL - High 180 mg/dL * Correction Factor: 30 mg/dL/unit * Nutritional / Prandial insulin per carb ratio of 1 unit per 10 grams CHO consumed
[2024-04-21] MEDS: INSULIN ASPART PER UNIT CHARGE SC SCH (12:04)
--- NOTE | 2024-04-21 12:12 | Gastroenterology Progress Note ---
Date of Service April 21, 2024 Assessment & Plan (1) Pancreatitis: Plan: Patient is better today as compared to yesterday she is stating that her abdominal pain has also improved and is now mostly having back pain she is tolerating the clear liquid diet most likely etiology of the pancreatitis is secondary to alcohol and despite having pancreatitis multiple times over the last 8 years she still continues to drink of note she also has a pancreatic stent which is scheduled to be replaced she has developed a new pseudocyst and I expect that the stent is occluded at the current time I would 1. Advance diet to full liquid and advance slowly as tolerated 2. Patient needs evaluation to replace the stent as urgently as possible once her metabolic abnormalities have improved 3. Emphasized with the patient abstinence from alcohol and she may need some ps ychiatric support as she states she has many problems Thank you for allowing us to take part in the care of your patient we will continue to follow her with you Admission and Anticipated Discharge Date Admission Date: April 19, 2024 Subjective Mistreatment appears much better as compared to yesterday she looks more awake alert and in less distress as compared to yesterday she states that she has been able to tolerate the clear liquid diet that she is on she states that most of her pain is in her back and the abdominal pain has improved her electrolytes and metabolic abnormalities have also improved Review of Systems Review of Systems: A 10 point review of systems was done Physical Exam Constitutional: Appears weak and cachectic but appears better as compared to yesterday Eyes: PERRL, conjunctivae normal, anicteric sclerae Neck: Supple Respiratory: Clear to auscultation anteriorly Cardiovascular: S1 and S2 Gastrointestinal (Abdomen): Mild tenderness in the epigastric and hypogastric region no masses appreciated Results & Data Results & Data Vital Signs (Past 12 Hours) Vital Signs Temp Pulse Resp BP Pulse Ox O2 Del Method 04/21/24 11:40 36.7 C 04/21/24 11:00 89 20 105/81 100 Room Air 04/21/24 09:21 93 H 18 04/21/24 07:10 36.8 C 04/21/24 07:03 89 13 101/79 99 Room Air 04/21/24 04:09 36.8 C 94 H 20 99 04/21/24 04:03 117/82 PG Care Time/CCT Total # of Minutes Spent Total Time Spent with Patient: Total time spent is greater than 50% in coordination of care (as documented) at patient's floor/unit and/or counseling patient: Coding Level of Care Code 47480 SUB INP/OBS CARE 2/35MIN History Expanded Problem Focused Exam Expanded Problem Focused Medical Decision Making Moderate Complexity Diagnoses Pancreatitis K85.90
--- NOTE | 2024-04-21 13:03 | Hospitalist Progress Note ---
Date of Service April 21, 2024 Assessment & Plan (1) DKA (diabetic ketoacidosis): Plan: Patient is 38-year-old female with PMH HTN, DM II, ETOH use, recurrent pancreatitis, with current stent, asthma, bipolar disorder, anxiety presented to ER with complaint of abdominal pain, nausea, vomiting and shortness of breath. In ER patient afebrile, mild tachycardia otherwise hemodynamically stable White count was elevated 18,000 likely still reactive and blood sugar was 569 A1c 10.2 on 02/2024 In ER given total 2 L Plasma-Lyte, 1 L NSS, IV Protonix, IV Pepcid, IV promethazine, sodium bicarb, cefepime, started on insulin drip Plan to transition to D5NS+K when <250, insulin drip Has been on insulin drip with improvement of blood sugar Always on n.p.o. now started with clears and if tolerated will change treatment to subcu insulin Appreciate executive coordinator input and recommendation Likely transferred to telemetry unit in the afternoon Clinically much better today and has been smiling and tolerating liquid diet Diet will be advanced as tolerated Transition to subcu insulin Itching Complains of generalized itch without any rash Has anxiety as well Will try hydroxyzine 10 mg 3 times daily as needed which will improve nausea as well Electrolyte imbalance Has hyponatremia-corrected value will be higher, hypokalemia and hypophosphatemia Has been getting replacement and will be monitored Replace potassium and phosphate today and will monitor History ETOH use ETOH level pending Patient reports last drink was 3 weeks ago Monitor -no signs or symptoms of withdrawal (2) Pancreatitis: Plan: Likely secondary to alcoholism History recurrent pancreatitis, chronic pancreatitis History pancreatic duct stent in September of this year Lipase: 549, T. bili: 0.5, AST: 91, ALT: 112, alk phos: 216 CT abdomen pelvis-edema throughout the pancreas and surrounding inflammation concerning of pancreatitis, soft tissue appearing collection along the undersurface of the pancreatic neck measuring 4.2 x 2.2 cm. Concerning of a pseudocyst however pancreatic malignancy must be clinically evaluated and this was new compared to the study from February 2024 Was scheduled to have outpatient ERCP, stent removal with possible stent exchange on 05/08/[address] Nielsen Will likely need to expedite the process following improvement of her current condition Lipase is improved to 273 diarrhea and Appreciate GI input and recommendation-will need to expedite the process of ERCP and possible stent removal Discussed with the patient about earlier appointment with GI to pursue ERCP and stent removal (3) ALEXIS (acute kidney injury): Plan: BUN: 26, Cr: 1.39 Received IVF Monitor renal functions Avoid nephrotoxic agents when possible Creatinine has been normalized (4) Hyponatremia: Plan: Hyponatremia Corrected sodium 131 for glucose 569 Monitor BMP (5) Bipolar disorder: Plan: History of bipolar disorder and anxiety Reports previously was on Abilify however reports has not taken for over 9month Started on hydroxyzine smaller dose for itchiness (6) Asthma: Plan: Do not suspect acute exacerbation at this time CXR without infiltrate Not on inhalers at home DVT Prophylaxis SCDs CODE STATUS- full Admission and Anticipated Discharge Date Admission Date: April 19, 2024 Subjective 04/20/2024 The patient was seen and examined in ICU She was admitted with chronic abdominal pain associate with nausea, vomiting for a long time with worsening shortness of breath recently History of chronic pancreatitis and also status post stent placement in September of this year Presented with DKA with electrolyte abnormalities and has been feeling little better in the hospital Still has significant pain and not being able to eat and drink 04/21/2024 Patient was seen and examined in ICU with telemetry status She has been feeling much better today and tolerating liquid diet Abdominal pain is better today and denies any vomiting but does have nausea Complains to have itching all over the body without any rash Review of Systems Review of Systems: All systems reviewed and are unremarkable except as noted below Physical Exam Physical Exam: Lying in bed with acute distress due to abdominal pain Constitutional: + ill appearing and + thin Eyes: PERRL, conjunctivae normal, anicteric sclerae ENMT: external ear and nose normal, oropharynx normal Neck: trachea midline, no thyromegaly Respiratory: no respiratory distress Auscultation: lungs clear to auscultation bilaterally Cardiovascular: Rate/Rhythm: regular rate and regular rhythm; not tachycardic Heart Sounds: normal S1 and normal S2; no murmur Extremities: no edema Gastrointestinal (Abdomen): Inspection/Auscultation: normal bowel sounds; abdomen not distended Percussion/Palpation: + abdomen tender (Epigastrium and central abdomen) and abdomen soft Neurologic: normal touch/pain/proprioception and moves all extremities; no focal motor deficits Psychiatric: A+Ox3, euthymic affect Lymphatic: no cervical or axillary lymphadenopathy Results & Data Results & Data Vital Signs (Past 12 Hours) Vital Signs Temp Pulse Resp BP Pulse Ox O2 Del Method 04/21/24 11:40 36.7 C 04/21/24 11:00 89 20 105/81 100 Room Air 04/21/24 09:21 93 H 18 04/21/24 07:10 36.8 C 04/21/24 07:03 89 13 101/79 99 Room Air 04/21/24 04:09 36.8 C 94 H 20 99 04/21/24 04:03 117/82 Laboratory Results Short CBC 04/21/24 Range/Units 04:48 WBC 5.95 (4.8-10.8) K/ul Hgb 10.9 L (12.0-16.0) g/dl Hct 30.9 L (37.0-47.0) % Plt Count 308 (130-400) K/uL BMP 04/20/24 04/21/24 14:16 04:48 Sodium 126 L 131 L Potassium 3.6 3.3 L Chloride 98 100 Carbon Dioxide 19 L 21 BUN 6 2 L Creatinine 0.46 L 0.36 L Glucose 167 H 177 H Calcium 7.4 L 6.7 L Liver Function 04/21/24 Range/Units 04:48 Total Bilirubin 0.3 (0.2-1.0) mg/dl AST 27 (13-39) U/L ALT 47 (7-52) U/L Alkaline Phosphatase 112 H (34-104) U/L Albumin 2.9 L (3.4-5.0) gm/dl Medications Administered Current Inpatient Medications Dextrose (Dextrose 50% 50 Ml Syringe) 25 - 50 ml IV UD PRN; Protocol PRN Reason: Hypoglycemia Protocol Stop: 05/20/24 07:59 Folic Acid (Folic Acid 1 Mg Tab) 1 mg PO QAM GEOVANNA Stop: 05/20/24 08:59 Last Admin: 04/21/24 06:57 Dose: Not Given Glucagon (Glucagon For Inj 1 Mg Vial) 1 mg IM UD PRN; Protocol PRN Reason: Hypoglycemia Protocol Stop: 05/20/24 07:59 Glucose (Glucose 40% Gel 15 Gm Tube) 15 - 30 gm PO UD PRN; Protocol PRN Reason: Hypoglycemia Protocol Stop: 05/20/24 07:59 Glucose (Glucose 10 Tab/Tube) 4 - 8 tab PO UD PRN; Protocol PRN Reason: Hypoglycemia Protocol Stop: 05/20/24 07:59 Hydroxyzine HCl (Hydroxyzine Hcl 10 Mg Tab) 10 mg PO TID PRN PRN Reason: Itching Stop: 05/21/24 09:48 Last Admin: 04/21/24 11:01 Dose: 10 mg Pantoprazole Sodium 40 mg/ (Syringe) 10 mls @ 5 mls/min IV BID GEOVANNA Stop: 05/20/24 08:59 Last Admin: 04/21/24 08:55 Dose: 5 mls/min Potassium Phosphate 30 mmol/ (Sodium Chloride) 510 mls @ 88 mls/hr IV ONE ONE Stop: 04/21/24 13:32 Last Admin: 04/21/24 08:57 Dose: 88 mls/hr Insulin Aspart (Insulin Aspart Per Unit Charge) 0 units SC ACHS [facility]; Protocol Stop: 05/21/24 11:29 Last Admin: 04/21/24 12:04 Dose: Not Given Insulin Glargine (Lantus Per Unit Charge) 12 units SC DAILY [facility]; Protocol Stop: 05/21/24 07:44 Last Admin: 04/21/24 08:54 Dose: 12 units Miscellaneous (Carbohydrates For Hypoglycemia ) 15 - 30 gm PO UD PRN PRN Reason: Hypoglycemia Treatment Stop: 05/20/24 07:59 Miscellaneous Information (Pharmacy Glycemic Mgmt Consult) 1 each N/A UD PRN PRN Reason: Consult Stop: 05/19/24 19:48 Morphine Sulfate (Morphine Sulfate 4 Mg/Ml 1 Ml Carp\Vial) 4 mg IV Q3H PRN PRN Reason: Pain Stop: 05/03/24 19:40 Last Admin: 04/21/24 08:54 Dose: 4 mg Thiamine HCl (Thiamine Hcl 100 Mg Tab) 100 mg PO QAM GEOVANNA Stop: 05/20/24 08:59 Last Admin: 04/21/24 06:57 Dose: Not Given (6) Asthma Asthma severity: moderate Asthma persistence: persistent Asthma complication type: uncomplicated Qualified Code(s): J45.40 - Moderate persistent asthma, uncomplicated
[2024-04-21] MEDS: diphenhydrAMINE Capsule 25 MG CAP PO PRN (21:24)
[2024-04-22] MEDS: INSULIN ASPART PER UNIT CHARGE SC SCH (00:16)
[2024-04-22] MEDS: ACETAMINOPHEN 325 MG TAB PO PRN (00:17)
[2024-04-22 05:20] LABS: Basophils # (auto) 0.01 K/uL (0.00-0.20); Basophils % (auto) 0.2 %; Eosinophils # (auto) 0.04 K/uL (0.00-0.50); Eosinophils % (auto) 0.8 %; Hematocrit (blood only) 27.6 % (37.0-47.0); Hemoglobin 9.7 g/dl (12.0-16.0); Immature Granulocytes # (auto) 0.02 K/uL (0.01-0.20); Immature Granulocytes % (auto) 0.4 %; Lymphocytes # (auto) 1.23 K/uL (1.20-3.40); Lymphocytes % (auto) 24.9 %; Mean Corpuscular Hemoglobin 30.3 pg (25.0-34.0); Mean Corpuscular Hgb Conc 35.1 g/dL (32.0-36.0); Mean Corpuscular Volume 86.3 fL (80.0-100.0); Mean Platelet Volume 9.6 fL (9.4-12.4); Monocytes # (auto) 0.42 K/uL (0.11-0.59); Monocytes % (auto) 8.5 %; Neutrophils # (auto) 3.22 K/uL (1.40-6.50); Neutrophils % (auto) 65.2 %; Platelet Count 270 K/uL (130-400); RDW Coefficient of Variation 13.8 % (11.5-14.5); RDW Standard Deviation 43.6 fL (36.4-46.3); White Blood Count 4.94 K/ul (4.8-10.8)
[2024-04-22 05:38] LABS: Anion Gap 7 (3-11); BUN Creatinine Ratio 10.8 (10-20); Blood Urea Nitrogen 4 mg/dl (6-23); Calcium 6.7 mg/dl (8.6-10.3); Carbon Dioxide 28 mmol/L (21-32); Chloride 102 mmol/L (98-107); Creatinine Clr Calc Pharmacy 155.1 ml/min; Est GFR (African American) > 150.0 ml/min; Est GFR (Non-African American) 136.5 ml/min; Glucose 165 mg/dl (70-99(Fasting)); Magnesium 1.1 mg/dl (1.7-2.4); Phosphorus 2.6 mg/dl (2.5-4.9); Potassium 3.3 mmol/L (3.5-5.1); Sodium 137 mmol/L (136-145)
[2024-04-22] MEDS: MAGNESIUM SULFATE / D5W 1 GM/100 ML BAG IV SCH (08:10)
[2024-04-22] MEDS: LANTUS PER UNIT CHARGE SC SCH (08:11)
[2024-04-22] MEDS: POTASSIUM CHLORIDE / WTR 10 MEQ/100 ML PLCT IV SCH (09:22)
--- NOTE | 2024-04-22 09:23 | Gastroenterology Progress Note ---
Date of Service April 22, 2024 Assessment & Plan (1) Pancreatitis: Plan: 38 year old female with history of HTN, T2DM, ETOH use, recurrent pancreatitis w/ known PD stent, asthma, bipolar disorder, anxiety and others admitted w/ recurrent acute on chronic pancreatitis, clinically improving daily Discussed with Dr. Nielsen, should keep OP biliary intervention as scheduled Continue supportive measures May continue low fat diet as tolerated Encouraged to remain ETOH free Antiemetic PRN Analgesia PRN Thank you for allowing us to participate in the care of this patient. Please call with any acute changes, questions or concerns. Please see addendum below with additional recommendation from my supervising physician. I spent a total of 55 minutes on the date of service in review of patient's record, and previously obtained information in person and appropriate medical visit, discussion and education of plan, with patient and/or caregiver, placing orders for tests/referral/procedures as medically necessary and documentation of pertinent clinical information in patient's medical records for their visit today. Admission and Anticipated Discharge Date Admission Date: April 19, 2024 Supervising Physician Co-Signing Physician Notes I examined the patient and reviewed the medical record, laboratory data and imaging studies. I agree with the assessment and plan of care as suggested by the advanced practice provider. Patient appears a little better today she states that her abdominal pain has decreased our team spoke with the endoscopist who did the ERCP and he recommended that she should keep her appointment for the ERCP that is scheduled on the at the current time I would be slow in advancing her diet and we will place her on a full on on a GI soft diet and transition very slowly correct her electrolytes and follow-up with Jun for repeat ERCP also monitor her H&H there is no evidence of any bleeding Subjective Pt was seen and evaluated, chart reviewed. Noted her abd pain is greatly improved this AM. No nausea/vomiting today. Has ERCP set up with Dr. Nielsen in April. Review of Systems Review of Systems: All other findings negative except as noted in HPI. Physical Exam Constitutional: WD/WN, vitals as above Respiratory: normal respiratory effort, lungs clear to auscultation Cardiovascular: RRR, no murmur, no edema Gastrointestinal (Abdomen): normal bowel sounds, soft, nontender, no hepatosplenomegaly Skin: no rashes, warm and dry Results & Data Results & Data Vital Signs (Past 12 Hours) Vital Signs Temp Pulse Pulse Resp BP Pulse Ox O2 Del Method 04/22/24 08:39 36.8 C 93 H 16 98/60 L 98 Room Air 04/22/24 08:00 93 H 04/22/24 04:00 36.9 C 104 H 16 113/83 100 Room Air 04/22/24 00:00 92 H 04/22/24 00:00 36.9 C 105 H 18 100/69 99 Room Air Laboratory Results 04/22/24 04/22/24 04/22/24 Range/Units 07:25 04:57 03:46 WBC 4.94 (4.8-10.8) K/ul RBC 3.20 L (4.20-5.40) M/uL Hgb 9.7 L (12.0-16.0) g/dl Hct 27.6 L (37.0-47.0) % MCV 86.3 (80.0-100.0) fL MCH 30.3 (25.0-34.0) pg MCHC 35.1 (32.0-36.0) g/dL RDW Std Deviation 43.6 (36.4-46.3) fL RDW Coeff of Arnold 13.8 (11.5-14.5) % Plt Count 270 (130-400) K/uL MPV 9.6 (9.4-12.4) fL Immature Gran % (Auto) 0.4 % Neut % (Auto) 65.2 % Lymph % (Auto) 24.9 % Victoria % (Auto) 8.5 % Eos % (Auto) 0.8 % Baso % (Auto) 0.2 % Neut # (Auto) 3.22 (1.40-6.50) K/uL Lymph # (Auto) 1.23 (1.20-3.40) K/uL Victoria # (Auto) 0.42 (0.11-0.59) K/uL Eos # (Auto) 0.04 (0.00-0.50) K/uL Baso # (Auto) 0.01 (0.00-0.20) K/uL Immature Gran # (Auto) 0.02 (0.01-0.20) K/uL VBG pH 7.39 (7.36-7.41) Sodium 137 (136-145) mmol/L Potassium 3.3 L (3.5-5.1) mmol/L Chloride 102 (98-107) mmol/L Carbon Dioxide 28 (21-32) mmol/L Anion Gap 7 (3-11) BUN 4 L (6-23) mg/dl Creatinine 0.37 L (0.6-1.2) mg/dl Est Cr Clr Drug Dosing 155.1 ml/min Est GFR ( Amer) > 150.0 ml/min Est GFR (Non-Af Amer) 136.5 ml/min BUN/Creatinine Ratio 10.8 (10-20) Glucose 165 H (70-99(Fasting)) mg/dl POC Glucose 170 H 83 (70-99) mg/dl Calcium 6.7 L (8.6-10.3) mg/dl Phosphorus 2.6 D (2.5-4.9) mg/dl Magnesium 1.1 L (1.7-2.4) mg/dl 04/21/24 04/21/24 04/21/24 Range/Units 23:50 20:01 15:35 WBC (4.8-10.8) K/ul RBC (4.20-5.40) M/uL Hgb (12.0-16.0) g/dl Hct (37.0-47.0) % MCV (80.0-100.0) fL MCH (25.0-34.0) pg MCHC (32.0-36.0) g/dL RDW Std Deviation (36.4-46.3) fL RDW Coeff of Arnold (11.5-14.5) % Plt Count (130-400) K/uL MPV (9.4-12.4) fL Immature Gran % (Auto) % Neut % (Auto) % Lymph % (Auto) % Victoria % (Auto) % Eos % (Auto) % Baso % (Auto) % Neut # (Auto) (1.40-6.50) K/uL Lymph # (Auto) (1.20-3.40) K/uL Victoria # (Auto) (0.11-0.59) K/uL Eos # (Auto) (0.00-0.50) K/uL Baso # (Auto) (0.00-0.20) K/uL Immature Gran # (Auto) (0.01-0.20) K/uL VBG pH (7.36-7.41) Sodium (136-145) mmol/L Potassium (3.5-5.1) mmol/L Chloride (98-107) mmol/L Carbon Dioxide (21-32) mmol/L Anion Gap (3-11) BUN (6-23) mg/dl Creatinine (0.6-1.2) mg/dl Est Cr Clr Drug Dosing ml/min Est GFR ( Amer) ml/min Est GFR (Non-Af Amer) ml/min BUN/Creatinine Ratio (10-20) Glucose (70-99(Fasting)) mg/dl POC Glucose 188 H 132 H 150 H (70-99) mg/dl Calcium (8.6-10.3) mg/dl Phosphorus (2.5-4.9) mg/dl Magnesium (1.7-2.4) mg/dl 04/21/24 Range/Units 11:03 WBC (4.8-10.8) K/ul RBC (4.20-5.40) M/uL Hgb (12.0-16.0) g/dl Hct (37.0-47.0) % MCV (80.0-100.0) fL MCH (25.0-34.0) pg MCHC (32.0-36.0) g/dL RDW Std Deviation (36.4-46.3) fL RDW Coeff of Arnold (11.5-14.5) % Plt Count (130-400) K/uL MPV (9.4-12.4) fL Immature Gran % (Auto) % Neut % (Auto) % Lymph % (Auto) % Victoria % (Auto) % Eos % (Auto) % Baso % (Auto) % Neut # (Auto) (1.40-6.50) K/uL Lymph # (Auto) (1.20-3.40) K/uL Victoria # (Auto) (0.11-0.59) K/uL Eos # (Auto) (0.00-0.50) K/uL Baso # (Auto) (0.00-0.20) K/uL Immature Gran # (Auto) (0.01-0.20) K/uL VBG pH (7.36-7.41) Sodium (136-145) mmol/L Potassium (3.5-5.1) mmol/L Chloride (98-107) mmol/L Carbon Dioxide (21-32) mmol/L Anion Gap (3-11) BUN (6-23) mg/dl Creatinine (0.6-1.2) mg/dl Est Cr Clr Drug Dosing ml/min Est GFR ( Amer) ml/min Est GFR (Non-Af Amer) ml/min BUN/Creatinine Ratio (10-20) Glucose (70-99(Fasting)) mg/dl POC Glucose 162 H (70-99) mg/dl Calcium (8.6-10.3) mg/dl Phosphorus (2.5-4.9) mg/dl Magnesium (1.7-2.4) mg/dl PG Care Time/CCT Total # of Minutes Spent Total Time Spent with Patient: Total time spent is greater than 50% in coordination of care (as documented) at patient's floor/unit and/or counseling patient: Coding Level of Care Code 20859 SUB INP/OBS CARE 3/50MIN Diagnoses Pancreatitis K85.90
--- NOTE | 2024-04-22 11:14 | Pharmacy Report ---
Pharmacy Glycemic Short Note 2 - Date of Service April 22, 2024 - Glycemic Short BSG Results (Last 24 hours): 04/21/24 04/21/24 04/21/24 15:35 20:01 23:50 Glucose POC Glucose 150 H 132 H 188 H 04/22/24 04/22/24 04/22/24 03:46 04:57 07:25 Glucose 165 H POC Glucose 83 170 H OUTPATIENT ANTIDIABETIC REGIMEN: * Lantus 12 units SC AM * Novolog 5 units SC ACHS * HbA1C: 11.7% (04/19/24) ASSESSMENT: 04/22: * Transitioned off insulin drip yesterday. Received 12 units of basal prior to transition. Required only 1 unit of correctional throughout the night. BSGs post transition were: [phone] mg/dL. * Fasting BSG was 170 mg/dL this AM. Will increase basal by 20% today. During previous admissions, patient has required up to 20 units of basal. * No change to Novolog for today. Patient still not tolerating much PO intake. Will change goal range to 110-140 mg/dL. 04/21: * Anion gap closed, blood sugar at goal, labs improving except for K & phos, repleting. * Will give basal w/ 3 hour overlap with insulin drip (currently running at 0.8units/hr). * Patient tolerated clear liquid diet for breakfast, starting full liquid at lunch today. 04/20: * Pt is a 38 year old female with a history of DM2 admitted in DKA. Pharmacy consulted to assist with inpatient glycemic management. * Initial labs: pH-7.02, AG-43, bicarb-6, BSG-495. Initiated on insulin drip per DKA protocol. * Today BSGs within goal range, no PO intake. D51/2NS with 40KCl @ 150mL/hr. Insulin drip at ~ 2.7 unit/hr the last several hours. * Will continue insulin drip per DKA protocol until AG<12, bicarb >/=15. D/w hospitalist - plan to continue insulin drip through tonight given still not tolerating a diet. Will reassess for possible transition to SQ in AM. PLAN FOR INPATIENT GLYCEMIC CONTROL: * Basal insulin * Lantus 15 units SC AM * Bolus insulin * NovoLog per scale ACHS or Q6hrs while NPO * Goal Range: Low 110 mg/dL - High 140 mg/dL * Correction Factor: 30 mg/dL/unit * Nutritional / Prandial insulin per carb ratio of 1 unit per 10 grams CHO consumed
--- NOTE | 2024-04-22 12:36 | Hospitalist Progress Note ---
Date of Service April 22, 2024 Assessment & Plan (1) DKA (diabetic ketoacidosis): Plan: Patient is 38-year-old female with PMH HTN, DM II, ETOH use, recurrent pancreatitis, with current stent, asthma, bipolar disorder, anxiety presented to ER with complaint of abdominal pain, nausea, vomiting and shortness of breath. In ER patient afebrile, mild tachycardia otherwise hemodynamically stable White count was elevated 18,000 likely still reactive and blood sugar was 569 A1c 10.2 on 02/2024 In ER given total 2 L Plasma-Lyte, 1 L NSS, IV Protonix, IV Pepcid, IV promethazine, sodium bicarb, cefepime, started on insulin drip Plan to transition to D5NS+K when <250, insulin drip Has been on insulin drip with improvement of blood sugar Always on n.p.o. now started with clears and if tolerated will change treatment to subcu insulin Appreciate office worker input and recommendation Likely transferred to telemetry unit in the afternoon Clinically much better today and has been smiling and tolerating liquid diet Diet will be advanced as tolerated Transition to subcu insulin Remains stable medically and has been tolerating advance diet She was advised to go slow with her diet as it causes pain from chronic pancreatitis If the food is tolerated maybe tomorrow she can be discharged Itching Complains of generalized itch without any rash Has anxiety as well Will try hydroxyzine 10 mg 3 times daily as needed which will improve nausea as well Hydroxyzine changed to oral Benadryl to control itch Denies any symptoms of itching today I was going [place] good good yeah Electrolyte imbalance Has hyponatremia-corrected value will be higher, hypokalemia and hypophosphatemia Has been getting replacement and will be monitored Replace potassium and phosphate today and will monitor still has significant electrolyte imbalance will supplement and recheck History ETOH use ETOH level pending Patient reports last drink was 3 weeks ago Monitor -no signs or symptoms of withdrawal (2) Pancreatitis: Plan: Likely secondary to alcoholism History recurrent pancreatitis, chronic pancreatitis History pancreatic duct stent in September of this year Lipase: 549, T. bili: 0.5, AST: 91, ALT: 112, alk phos: 216 CT abdomen pelvis-edema throughout the pancreas and surrounding inflammation concerning of pancreatitis, soft tissue appearing collection along the undersurface of the pancreatic neck measuring 4.2 x 2.2 cm. Concerning of a pseudocyst however pancreatic malignancy must be clinically evaluated and this was new compared to the study from February 2024 Was scheduled to have outpatient ERCP, stent removal with possible stent exchange on 05/08/[address] Nielsen Will likely need to expedite the process following improvement of her current condition Lipase is improved to 273 diarrhea and Appreciate GI input and recommendation-will need to expedite the process of ERCP and possible stent removal Discussed with the patient about earlier appointment with GI to pursue ERCP and stent removal (3) ALEXIS (acute kidney injury): Plan: BUN: 26, Cr: 1.39 Received IVF Monitor renal functions Avoid nephrotoxic agents when possible Creatinine has been normalized (4) Hyponatremia: Plan: Hyponatremia Corrected sodium 131 for glucose 569 Monitor BMP (5) Bipolar disorder: Plan: History of bipolar disorder and anxiety Reports previously was on Abilify however reports has not taken for over 9month Started on hydroxyzine smaller dose for itchiness (6) Asthma: Plan: Do not suspect acute exacerbation at this time CXR without infiltrate Not on inhalers at home DVT Prophylaxis SCDs CODE STATUS- full Admission and Anticipated Discharge Date Admission Date: April 19, 2024 Subjective Pt was seen and evaluated, chart reviewed. Noted her abd pain is greatly improved this AM. No nausea/vomiting today. Has ERCP set up with Dr. Nielsen in April. 04/22/2024 The patient was seen and examined in ICU She has been feeling much better but he still has significant pain in the a bdomen and nausea following food Her diabetes is controlled now and has been taking subcu insulin Has been ambulating without difficulties Likely discharge tomorrow without early appointment with the GI for ERCP and stent management Review of Systems Review of Systems: All systems reviewed and are unremarkable except as noted below Physical Exam Physical Exam: Lying in bed with acute distress due to abdominal pain Constitutional: + ill appearing and + thin Eyes: PERRL, conjunctivae normal, anicteric sclerae ENMT: external ear and nose normal, oropharynx normal Neck: trachea midline, no thyromegaly Respiratory: no respiratory distress Auscultation: lungs clear to auscultation bilaterally Cardiovascular: Rate/Rhythm: regular rate and regular rhythm; not tachycardic Heart Sounds: normal S1 and normal S2; no murmur Extremities: no edema Gastrointestinal (Abdomen): Inspection/Auscultation: normal bowel sounds; abdomen not distended Percussion/Palpation: + abdomen tender (Epigastrium and central abdomen) and abdomen soft Neurologic: normal touch/pain/proprioception and moves all extremities; no focal motor deficits Psychiatric: A+Ox3, euthymic affect Lymphatic: no cervical or axillary lymphadenopathy Results & Data Results & Data Vital Signs (Past 12 Hours) Vital Signs Temp Pulse Pulse Resp BP Pulse Ox O2 Del Method 04/22/24 12:02 37.1 C 93 H 14 107/74 99 Room Air 04/22/24 08:39 36.8 C 93 H 16 98/60 L 98 Room Air 04/22/24 08:00 93 H 04/22/24 04:00 36.9 C 104 H 16 113/83 100 Room Air Laboratory Results Short CBC 04/22/24 Range/Units 04:57 WBC 4.94 (4.8-10.8) K/ul Hgb 9.7 L (12.0-16.0) g/dl Hct 27.6 L (37.0-47.0) % Plt Count 270 (130-400) K/uL BMP 04/22/24 04:57 Sodium 137 Potassium 3.3 L Chloride 102 Carbon Dioxide 28 BUN 4 L Creatinine 0.37 L Glucose 165 H Calcium 6.7 L Medications Administered Current Inpatient Medications Acetaminophen (Acetaminophen 325 Mg Tab) 650 mg PO Q4H PRN PRN Reason: Pain Stop: 05/21/24 23:54 Last Admin: 04/22/24 11:47 Dose: 650 mg Dextrose (Dextrose 50% 50 Ml Syringe) 25 - 50 ml IV UD PRN; Protocol PRN Reason: Hypoglycemia Protocol Stop: 05/20/24 07:59 Diphenhydramine HCl (Diphenhydramine Capsule 25 Mg Cap) 25 mg PO TID PRN PRN Reason: Itching Stop: 05/21/24 21:15 Last Admin: 04/22/24 05:11 Dose: 25 mg Folic Acid (Folic Acid 1 Mg Tab) 1 mg PO QAM GEOVANNA Stop: 05/20/24 08:59 Last Admin: 04/22/24 08:11 Dose: 1 mg Glucagon (Glucagon For Inj 1 Mg Vial) 1 mg IM UD PRN; Protocol PRN Reason: Hypoglycemia Protocol Stop: 05/20/24 07:59 Glucose (Glucose 40% Gel 15 Gm Tube) 15 - 30 gm PO UD PRN; Protocol PRN Reason: Hypoglycemia Protocol Stop: 05/20/24 07:59 Glucose (Glucose 10 Tab/Tube) 4 - 8 tab PO UD PRN; Protocol PRN Reason: Hypoglycemia Protocol Stop: 05/20/24 07:59 Pantoprazole Sodium 40 mg/ (Syringe) 10 mls @ 5 mls/min IV BID GEOVANNA Stop: 05/20/24 08:59 Last Admin: 04/22/24 09:18 Dose: 5 mls/min Insulin Aspart (Insulin Aspart Per Unit Charge) 0 units SC ACHS [facility]; Protocol Stop: 05/21/24 11:29 Last Admin: 04/22/24 11:48 Dose: 2 units Insulin Glargine (Lantus Per Unit Charge) 15 units SC DAILY [facility]; Protocol Stop: 05/21/24 07:44 Last Admin: 04/22/24 08:11 Dose: 15 units Miscellaneous (Carbohydrates For Hypoglycemia ) 15 - 30 gm PO UD PRN PRN Reason: Hypoglycemia Treatment Stop: 05/20/24 07:59 Miscellaneous Information (Pharmacy Glycemic Mgmt Consult) 1 each N/A UD PRN PRN Reason: Consult Stop: 05/19/24 19:48 Morphine Sulfate (Morphine Sulfate 4 Mg/Ml 1 Ml Carp\Vial) 4 mg IV Q3H PRN PRN Reason: Pain Stop: 05/03/24 19:40 Last Admin: 04/22/24 11:47 Dose: 4 mg Thiamine HCl (Thiamine Hcl 100 Mg Tab) 100 mg PO QAM GEOVANNA Stop: 05/20/24 08:59 Last Admin: 04/22/24 08:11 Dose: 100 mg (6) Asthma Asthma severity: moderate Asthma persistence: persistent Asthma complication type: uncomplicated Qualified Code(s): J45.40 - Moderate persistent asthma, uncomplicated
[2024-04-22] MEDS: ONDANSETRON INJ 2 MG/ML 2 ML VIAL IV PRN (15:35)
[2024-04-23 06:33] LABS: Magnesium 1.8 mg/dl (1.7-2.4); Phosphorus 2.6 mg/dl (2.5-4.9)
--- NOTE | 2024-04-23 08:47 | Gastroenterology Progress Note ---
<Statement entered by Mahendra Andrade MD - 04/23/24 14:38> Patient seen and examined. Case discussed with Rohini PATEL. Patient improving - has flatus. Would use low fat diabetic diet and continue hydration and pain control. May benefit from enzyme therapy. IP GI Service will sign off. Mahendra Andrade Date of Service April 23, 2024 Assessment & Plan (1) Pancreatitis: Plan: 38 year old female with history of HTN, T2DM, ETOH use, recurrent pancreatitis w/ known PD stent, asthma, bipolar disorder, anxiety and others admitted w/ recurrent acute on chronic pancreatitis, clinically improving daily Discussed with Dr. Nielsen, should keep OP biliary intervention as scheduled Continue supportive measures May continue low fat diet as tolerated Encouraged to remain ETOH free Antiemetic PRN Analgesia PRN Start a bowel regimen such as Miralax 1 capful once daily Please recall GI as needed - GI to sign off. Thank you for allowing us to participate in the care of this patient. Please call with any acute changes, questions or concerns. Please see addendum below with additional recommendation from my supervising physician. I spent a total of 50 minutes on the date of service in review of patient's record, and previously obtained information in person and appropriate medical visit, discussion and education of plan, with patient and/or caregiver, placing orders for tests/referral/procedures as medically necessary and documentation of pertinent clinical information in patient's medical records for their visit today. Admission and Anticipated Discharge Date Admission Date: April 19, 2024 Subjective Pt was seen and evaluated, chart reviewed. Passing gas, no BM yet. Notes at home goes between 5-7 days without BMs. No nausea, vomiting. Notes feels full quickly with limited PO intake. Scheduled 05/[address] Nielsen Review of Systems Review of Systems: All other findings negative except as noted in HPI. Physical Exam Constitutional: WD/WN, vitals as above Respiratory: normal respiratory effort, lungs clear to auscultation Cardiovascular: RRR, no murmur, no edema Gastrointestinal (Abdomen): normal bowel sounds, soft, nontender, no hepatosplenomegaly Skin: no rashes, warm and dry Results & Data Results & Data Vital Signs (Past 12 Hours) Vital Signs Temp Pulse Pulse Resp BP Pulse Ox O2 Del Method 04/23/24 07:05 36.9 C 94 H 18 116/83 99 Room Air 04/23/24 03:44 36.7 C 72 18 109/73 99 Room Air 04/22/24 22:54 36.8 C 93 H 18 99/75 L 100 Room Air 04/22/24 21:59 86 PG Care Time/CCT Total # of Minutes Spent Total Time Spent with Patient: Total time spent is greater than 50% in coordination of care (as documented) at patient's floor/unit and/or counseling patient: Coding Level of Care Code 69104 SUB INP/OBS CARE 3/50MIN Diagnoses Pancreatitis K85.90
[2024-04-23 08:52] LABS: Anion Gap 6 (3-11); BUN Creatinine Ratio 25.7 (10-20); Blood Urea Nitrogen 9 mg/dl (6-23); Calcium 7.3 mg/dl (8.6-10.3); Carbon Dioxide 27 mmol/L (21-32); Chloride 105 mmol/L (98-107); Creatinine Clr Calc Pharmacy 166.1 ml/min; Est GFR (African American) > 150.0 ml/min; Glucose 137 mg/dl (70-99(Fasting)); Potassium 3.7 mmol/L (3.5-5.1); Sodium 138 mmol/L (136-145)
--- NOTE | 2024-04-23 11:09 | Hospitalist Progress Note ---
Date of Service April 23, 2024 Assessment & Plan (1) DKA (diabetic ketoacidosis): Plan: Patient is 38-year-old female with PMH HTN, DM II, ETOH use, recurrent pancreatitis, with current stent, asthma, bipolar disorder, anxiety presented to ER with complaint of abdominal pain, nausea, vomiting and shortness of breath. In ER patient afebrile, mild tachycardia otherwise hemodynamically stable White count was elevated 18,000 likely still reactive and blood sugar was 569 A1c 10.2 on 02/2024 In ER given total 2 L Plasma-Lyte, 1 L NSS, IV Protonix, IV Pepcid, IV promethazine, sodium bicarb, cefepime, started on insulin drip Plan to transition to D5NS+K when <250, insulin drip Has been on insulin drip with improvement of blood sugar Always on n.p.o. now started with clears and if tolerated will change treatment to subcu insulin Appreciate cobol mainframe developer input and recommendation Likely transferred to telemetry unit in the afternoon Clinically much better today and has been smiling and tolerating liquid diet Diet will be advanced as tolerated Transition to subcu insulin Remains stable medically and has been tolerating advance diet She was advised to go slow with her diet as it causes pain from chronic pancreatitis If the food is tolerated maybe tomorrow she can be discharged Not yet ready to be discharged today Diet has been advanced and if tolerated well likely discharge tomorrow morning Itching Complains of generalized itch without any rash Has anxiety as well Will try hydroxyzine 10 mg 3 times daily as needed which will improve nausea as well Hydroxyzine changed to oral Benadryl to control itch Denies any symptoms of itching today Denies any more itching today Electrolyte imbalance Has hyponatremia-corrected value will be higher, hypokalemia and hypophosphatemia Has been getting replacement and will be monitored Replace potassium and phosphate today and will monitor still has significant electrolyte imbalance will supplement and recheck Electrolytes are corrected and repeated tomorrow to make sure it Remains stable History ETOH use ETOH level pending Patient reports last drink was 3 weeks ago Monitor -no signs or symptoms of withdrawal (2) Pancreatitis: Plan: Likely secondary to alcoholism History recurrent pancreatitis, chronic pancreatitis History pancreatic duct stent in September of this year Lipase: 549, T. bili: 0.5, AST: 91, ALT: 112, alk phos: 216 CT abdomen pelvis-edema throughout the pancreas and surrounding inflammation concerning of pancreatitis, soft tissue appearing collection along the undersurface of the pancreatic neck measuring 4.2 x 2.2 cm. Concerning of a pseudocyst however pancreatic malignancy must be clinically evaluated and this was new compared to the study from February 2024 Was scheduled to have outpatient ERCP, stent removal with possible stent exchange on 05/08/[address] Nielsen Will likely need to expedite the process following improvement of her current condition Lipase is improved to 273 diarrhea and Appreciate GI input and recommendation-will need to expedite the process of ERCP and possible stent removal Discussed with the patient about earlier appointment with GI to pursue ERCP and stent removal (3) ALEXIS (acute kidney injury): Plan: BUN: 26, Cr: 1.39 Received IVF Monitor renal functions Avoid nephrotoxic agents when possible Creatinine has been normalized (4) Hyponatremia: Plan: Hyponatremia Corrected sodium 131 for glucose 569 Monitor BMP (5) Bipolar disorder: Plan: History of bipolar disorder and anxiety Reports previously was on Abilify however reports has not taken for over 9month Started on hydroxyzine smaller dose for itchiness (6) Asthma: Plan: Do not suspect acute exacerbation at this time CXR without infiltrate Not on inhalers at home DVT Prophylaxis SCDs CODE STATUS- full Admission and Anticipated Discharge Date Admission Date: April 19, 2024 Subjective Pt was seen and evaluated, chart reviewed. Noted her abd pain is greatly improved this AM. No nausea/vomiting today. Has ERCP set up with Dr. Nielsen in April. 04/22/2024 The patient was seen and examined in ICU She has been feeling much better but he still has significant pain in the abdomen and nausea following food Her diabetes is controlled now and has been taking subcu insulin Has been ambulating without difficulties Likely discharge tomorrow without early appointment with the GI for ERCP and stent management 04/23/2024 The patient was seen and examined in telemetry unit She has been feeling much better and tolerating diet She wants to try advance diet today and likely to go home tomorrow Still has significant pain in the abdomen and nausea following Review of Systems Review of Systems: All systems reviewed and are unremarkable except as noted below Physical Exam Physical Exam: Lying in bed with acute distress due to abdominal pain Constitutional: + ill appearing and + thin Eyes: PERRL, conjunctivae normal, anicteric sclerae ENMT: external ear and nose normal, oropharynx normal Neck: trachea midline, no thyromegaly Respiratory: no respiratory distress Auscultation: lungs clear to auscultation bilaterally Cardiovascular: Rate/Rhythm: regular rate and regular rhythm; not tachycardic Heart Sounds: normal S1 and normal S2; no murmur Extremities: no edema Gastrointestinal (Abdomen): Inspection/Auscultation: normal bowel sounds; abdomen not distended Percussion/Palpation: + abdomen tender (Epigastrium and central abdomen) and abdomen soft Neurologic: normal touch/pain/proprioception and moves all extremities; no focal motor deficits Psychiatric: A+Ox3, euthymic affect Lymphatic: no cervical or axillary lymphadenopathy Results & Data Results & Data Vital Signs (Past 12 Hours) Vital Signs Temp Pulse Pulse Resp BP Pulse Ox O2 Del Method 04/23/24 11:00 36.7 C 92 H 18 114/79 99 Room Air 04/23/24 08:00 84 04/23/24 07:05 36.9 C 94 H 18 116/83 99 Room Air 04/23/24 03:44 36.7 C 72 18 109/73 99 Room Air Laboratory Results [facility] 04/23/24 05:28 Sodium 138 Potassium 3.7 Chloride 105 Carbon Dioxide 27 BUN 9 Creatinine 0.35 L Glucose 137 H Calcium 7.3 L Open the Medications Administered Current Inpatient Medications Acetaminophen (Acetaminophen 325 Mg Tab) 650 mg PO Q4H PRN PRN Reason: Pain Stop: 05/21/24 23:54 Last Admin: 04/23/24 09:23 Dose: 650 mg Dextrose (Dextrose 50% 50 Ml Syringe) 25 - 50 ml IV UD PRN; Protocol PRN Reason: Hypoglycemia Protocol Stop: 05/20/24 07:59 Diphenhydramine HCl (Diphenhydramine Capsule 25 Mg Cap) 25 mg PO TID PRN PRN Reason: Itching Stop: 05/21/24 21:15 Last Admin: 04/22/24 15:24 Dose: 25 mg Folic Acid (Folic Acid 1 Mg Tab) 1 mg PO QAM GEOVANNA Stop: 05/20/24 08:59 Last Admin: 04/23/24 08:10 Dose: 1 mg Glucagon (Glucagon For Inj 1 Mg Vial) 1 mg IM UD PRN; Protocol PRN Reason: Hypoglycemia Protocol Stop: 05/20/24 07:59 Glucose (Glucose 40% Gel 15 Gm Tube) 15 - 30 gm PO UD PRN; Protocol PRN Reason: Hypoglycemia Protocol Stop: 05/20/24 07:59 Glucose (Glucose 10 Tab/Tube) 4 - 8 tab PO UD PRN; Protocol PRN Reason: Hypoglycemia Protocol Stop: 05/20/24 07:59 Pantoprazole Sodium 40 mg/ (Syringe) 10 mls @ 5 mls/min IV BID GEOVANNA Stop: 05/20/24 08:59 Last Admin: 04/23/24 09:50 Dose: 5 mls/min Insulin Aspart (Insulin Aspart Per Unit Charge) 0 units SC ACHS [facility]; Protocol Stop: 05/21/24 11:29 Last Admin: 04/23/24 08:11 Dose: 4 units Insulin Glargine (Lantus Per Unit Charge) 15 units SC DAILY [facility]; Protocol Stop: 05/21/24 07:44 Last Admin: 04/23/24 08:10 Dose: 15 units Miscellaneous (Carbohydrates For Hypoglycemia ) 15 - 30 gm PO UD PRN PRN Reason: Hypoglycemia Treatment Stop: 05/20/24 07:59 Miscellaneous Information (Pharmacy Glycemic Mgmt Consult) 1 each N/A UD PRN PRN Reason: Consult Stop: 05/19/24 19:48 Morphine Sulfate (Morphine Sulfate 4 Mg/Ml 1 Ml Carp\Vial) 4 mg IV Q3H PRN PRN Reason: Pain Stop: 05/03/24 19:40 Last Admin: 04/23/24 09:23 Dose: 4 mg Ondansetron HCl (Ondansetron Inj 2 Mg/Ml 2 Ml Vial) 4 mg IV Q6H PRN PRN Reason: Nausea And Vomiting Stop: 05/22/24 15:21 Last Admin: 04/23/24 09:49 Dose: 4 mg Thiamine HCl (Thiamine Hcl 100 Mg Tab) 100 mg PO QAM GEOVANNA Stop: 05/20/24 08:59 Last Admin: 04/23/24 08:10 Dose: 100 mg (6) Asthma Asthma severity: moderate Asthma persistence: persistent Asthma complication type: uncomplicated Qualified Code(s): J45.40 - Moderate persistent asthma, uncomplicated
[2024-04-24] MEDS: SIMETHICONE 80 MG CHEW PO ONE (00:05)
[2024-04-24] MEDS: POLYETHYLENE (MIRALAX) 17 GM PACK PO PRN (00:09)
[2024-04-24 06:22] LABS: Anion Gap 6 (3-11); BUN Creatinine Ratio 29.3 (10-20); Blood Urea Nitrogen 12 mg/dl (6-23); Calcium 7.6 mg/dl (8.6-10.3); Carbon Dioxide 26 mmol/L (21-32); Chloride 103 mmol/L (98-107); Creatinine Clr Calc Pharmacy 141.8 ml/min; Est GFR (African American) > 150.0 ml/min; Glucose 231 mg/dl (70-99(Fasting)); Potassium 3.8 mmol/L (3.5-5.1); Sodium 135 mmol/L (136-145)
[2024-04-24 06:29] LABS: Troponin I High Sensitivity 3.6 pg/ml (0-14)
[2024-04-24] MEDS: LANTUS PER UNIT CHARGE SC SCH (08:20)
--- NOTE | 2024-04-24 09:27 | XRay Report ---
XR chest 1V portable CLINICAL HISTORY: CHF TECHNIQUE: Single frontal radiograph of the chest was obtained. Comparison: Comparison is made to chest radiograph 04/19/2024 FINDINGS: No lines and tubes are seen. The cardiomediastinal silhouette is normal. The lungs are clear. No evid ence of pleural effusion or pneumothorax. IMPRESSION: No acute chest disease. ACT 112: Negative or not required by law. Electronically signed by: Fausto Garcia M.D. 04/24/2024 9:26 AM
[2024-04-24 09:35] LABS: Lipase 196 U/L (11-82)
[2024-04-24] MEDS: CARBOHYDRATES FOR HYPOGLYCEMIA PO PRN (10:18)
--- NOTE | 2024-04-24 10:50 | Pharmacy Report ---
Pharmacy Glycemic Short Note 2 - Date of Service April 24, 2024 - Glycemic Short BSG Results (Last 24 hours): 04/23/24 04/23/24 04/23/24 11:06 15:54 20:00 Glucose POC Glucose 122 H 98 183 H 04/24/24 04/24/24 04/24/24 05:21 07:32 10:17 Glucose 231 H POC Glucose 232 H 48 L* 04/24/24 10:36 Glucose POC Glucose 71 OUTPATIENT ANTIDIABETIC REGIMEN: * Lantus 12 units SC AM * Novolog 5 units SC ACHS * HbA1C: 11.7% (04/19/24) ASSESSMENT: 04/24: * BSGs yesterday were [phone] mg/dL. Patient received 15 units basal + 6 units bolus throughout the day (21 units total). * Fasting BSG continues to trend upward today, 232 mg/dL. Will increase basal dose today. * Notified by RN that patient was diaphoretic in the room so BSG was checked and was 48 mg/dL. Patient also reported shakiness. Given 15 g of carbs and BSG improved to 71 mg/dL. Given this info, will loosen Novolog significant starting at lunchtime. 04/22: * Transitioned off insulin drip yesterday. Received 12 units of basal prior to transition. Required only 1 unit of correctional throughout the night. BSGs post transition were: [phone] mg/dL. * Fasting BSG was 170 mg/dL this AM. Will increase basal by 20% today. During previous admissions, patient has required up to 20 units of basal. * No change to Novolog for today. Patient still not tolerating much PO intake. Will change goal range to 110-140 mg/dL. 04/21: * Anion gap closed, blood sugar at goal, labs improving except for K & phos, repleting. * Will give basal w/ 3 hour overlap with insulin drip (currently running at 0.8units/hr). * Patient tolerated clear liquid diet for breakfast, starting full liquid at lunch today. 04/20: * Pt is a 38 year old female with a history of DM2 admitted in DKA. Pharmacy consulted to assist with inpatient glycemic management. * Initial labs: pH-7.02, AG-43, bicarb-6, BSG-495. Initiated on insulin drip per DKA protocol. * Today BSGs within goal range, no PO intake. D51/2NS with 40KCl @ 150mL/hr. Insulin drip at ~ 2.7 unit/hr the last several hours. * Will continue insulin drip per DKA protocol until AG<12, bicarb >/=15. D/w hospitalist - plan to continue insulin drip through tonight given still not tolerating a diet. Will reassess for possible transition to SQ in AM. PLAN FOR INPATIENT GLYCEMIC CONTROL: * Basal insulin * Lantus 20 units SC AM * Bolus insulin * NovoLog per scale ACHS or Q6hrs while NPO * Goal Range: Low 110 mg/dL - High 140 mg/dL * Correction Factor: 45 mg/dL/unit * Nutritional / Prandial insulin per carb ratio of 1 unit per 15 grams CHO consumed
--- NOTE | 2024-04-24 11:13 | Hospitalist Progress Note ---
Date of Service April 24, 2024 Assessment & Plan (1) DKA (diabetic ketoacidosis): Plan: Patient is 38-year-old female with PMH HTN, DM II, ETOH use, recurrent pancreatitis, with current stent, asthma, bipolar disorder, anxiety presented to ER with complaint of abdominal pain, nausea, vomiting and shortness of breath. In ER patient afebrile, mild tachycardia otherwise hemodynamically stable White count was elevated 18,000 likely still reactive and blood sugar was 569 A1c 10.2 on 02/2024 In ER given total 2 L Plasma-Lyte, 1 L NSS, IV Protonix, IV Pepcid, IV promethazine, sodium bicarb, cefepime, started on insulin drip Plan to transition to D5NS+K when <250, insulin drip Has been on insulin drip with improvement of blood sugar Always on n.p.o. now started with clears and if tolerated will change treatment to subcu insulin Appreciate flight controls engineer input and recommendation Likely transferred to telemetry unit in the afternoon Clinically much better today and has been smiling and tolerating liquid diet Diet will be advanced as tolerated Transition to subcu insulin Remains stable medically and has been tolerating advance diet She was advised to go slow with her diet as it causes pain from chronic pancreatitis If the food is tolerated maybe tomorrow she can be discharged Not yet ready to be discharged today Diet has been advanced and if tolerated well likely discharge tomorrow morning Still has significant pain and also nausea Advance diet and if she tolerates that she will be discharged home this afternoon The lipase is mildly elevated at 196 and does not have any acute pancreatitis She will be given Percocet for pain and already has an appointment with GI as an outpatient for ERCP and stent management Chest pain Happened to be last night and also this morning EKG x 2 and troponins were unremarkable Likely secondary to pancreatitis her blood pressure is maintaining as well CXR did not show any change Itching Complains of generalized itch without any rash Has anxiety as well Will try hydroxyzine 10 mg 3 times daily as needed which will improve nausea as well Hydroxyzine changed to oral Benadryl to control itch Denies any symptoms of itching today Denies any more itching today Electrolyte imbalance Has hyponatremia-corrected value will be higher, hypokalemia and hypophosphatemia Has been getting replacement and will be monitored Replace potassium and phosphate today and will monitor still has significant electrolyte imbalance will supplement and recheck Electrolytes are corrected and repeated tomorrow to make sure it Remains stable History ETOH use ETOH level pending Patient reports last drink was 3 weeks ago Monitor -no signs or symptoms of withdrawal (2) Pancreatitis: Plan: Likely secondary to alcoholism History recurrent pancreatitis, chronic pancreatitis History pancreatic duct stent in September of this year Lipase: 549, T. bili: 0.5, AST: 91, ALT: 112, alk phos: 216 CT abdomen pelvis-edema throughout the pancreas and surrounding inflammation concerning of pancreatitis, soft tissue appearing collection along the undersurface of the pancreatic neck measuring 4.2 x 2.2 cm. Concerning of a pseudocyst however pancreatic malignancy must be clinically evaluated and this was new compared to the study from February 2024 Was scheduled to have outpatient ERCP, stent removal with possible stent exchange on 05/08/[address] Nielsen Will likely need to expedite the process following improvement of her current condition Lipase is improved to 273 diarrhea and Appreciate GI input and recommendation-will need to expedite the process of ERCP and possible stent removal Discussed with the patient about earlier appointment with GI to pursue ERCP and stent removal Has chronic pancreatitis and will be given low-dose narcotic for pain control (3) ALEXIS (acute kidney injury): Plan: BUN: 26, Cr: 1.39 Received IVF Monitor renal functions Avoid nephrotoxic agents when possible Creatinine has been normalized (4) Hyponatremia: Plan: Hyponatremia Corrected sodium 131 for glucose 569 Monitor BMP (5) Bipolar disorder: Plan: History of bipolar disorder and anxiety Reports previously was on Abilify however reports has not taken for over 9month Started on hydroxyzine smaller dose for itchiness (6) Asthma: Plan: Do not suspect acute exacerbation at this time CXR without infiltrate Not on inhalers at home DVT Prophylaxis SCDs CODE STATUS- full Admission and Anticipated Discharge Date Admission Date: April 19, 2024 Subjective Pt was seen and evaluated, chart reviewed. Noted her abd pain is greatly improved this AM. No nausea/vomiting today. Has ERCP set up with Dr. Nielsen in April. 04/22/2024 The patient was seen and examined in ICU She has been feeling much better but he still has significant pain in the abdomen and nausea following food Her diabetes is controlled now and has been taking subcu insulin Has been ambulating without difficulties Likely discharge tomorrow without early appointment with the GI for ERCP and stent management 04/23/2024 The patient was seen and examined in telemetry unit She has been feeling much better and tolerating diet She wants to try advance diet today and likely to go home tomorrow Still has significant pain in the abdomen and nausea following 04/24/2024 The patient was seen and examined in telemetry unit She has had chest pain last night and also this morning Also noted to have low blood sugar at 46 this morning And the supplementation was given If remains free from any symptoms should be discharged this afternoon Review of Systems Review of Systems: All systems reviewed and are unremarkable except as noted below Physical Exam Physical Exam: Lying in bed with acute distress due to abdominal pain Constitutional: + ill appearing and + thin Eyes: PERRL, conjunctivae normal, anicteric sclerae ENMT: external ear and nose normal, oropharynx normal Neck: trachea midline, no thyromegaly Respiratory: no respiratory distress Auscultation: lungs clear to auscultation bilaterally Cardiovascular: Rate/Rhythm: regular rate and regular rhythm; not tachycardic Heart Sounds: normal S1 and normal S2; no murmur Extremities: no edema Gastrointestinal (Abdomen): Inspection/Auscultation: normal bowel sounds; abdomen not distended Percussion/Palpation: + abdomen tender (Epigastrium and central abdomen) and abdomen soft Neurologic: normal touch/pain/proprioception and moves all extremities; no focal motor deficits Psychiatric: A+Ox3, euthymic affect Lymphatic: no cervical or axillary lymphadenopathy Results & Data Results & Data Vital Signs (Past 12 Hours) Vital Signs Temp Pulse Pulse Resp BP Pulse Ox O2 Del Method 04/24/24 08:45 Nasal Cannula 04/24/24 08:00 73 04/24/24 07:34 37.1 C 94 H 16 117/81 99 Room Air 04/24/24 03:08 36.8 C 87 17 107/74 100 Room Air 04/23/24 23:22 37.0 C 84 16 101/66 99 Room Air 04/23/24 23:21 78 O2 Flow Rate 04/24/24 08:45 1 04/24/24 08:00 04/24/24 07:34 04/24/24 03:08 04/23/24 23:22 04/23/24 23:21 Laboratory Results Current Inpatient Medications Acetaminophen (Acetaminophen 325 Mg Tab) 650 mg PO Q4H PRN PRN Reason: Pain Stop: 05/21/24 23:54 Last Admin: 04/24/24 10:06 Dose: 650 mg Calcium Carbonate (Calcium Carbonate 500 Mg Chewable Tab) 500 mg PO Q6H PRN PRN Reason: Indigestion Stop: 05/24/24 10:08 Dextrose (Dextrose 50% 50 Ml Syringe) 25 - 50 ml IV UD PRN; Protocol PRN Reason: Hypoglycemia Protocol Stop: 05/20/24 07:59 Diphenhydramine HCl (Diphenhydramine Capsule 25 Mg Cap) 25 mg PO TID PRN PRN Reason: Itching Stop: 05/21/24 21:15 Last Admin: 04/24/24 10:06 Dose: 25 mg Folic Acid (Folic Acid 1 Mg Tab) 1 mg PO QAM GEOVANNA Stop: 05/20/24 08:59 Last Admin: 04/24/24 08:17 Dose: 1 mg Glucagon (Glucagon For Inj 1 Mg Vial) 1 mg IM UD PRN; Protocol PRN Reason: Hypoglycemia Protocol Stop: 05/20/24 07:59 Glucose (Glucose 40% Gel 15 Gm Tube) 15 - 30 gm PO UD PRN; Protocol PRN Reason: Hypoglycemia Protocol Stop: 05/20/24 07:59 Glucose (Glucose 10 Tab/Tube) 4 - 8 tab PO UD PRN; Protocol PRN Reason: Hypoglycemia Protocol Stop: 05/20/24 07:59 Pantoprazole Sodium 40 mg/ (Syringe) 10 mls @ 5 mls/min IV BID GEOVANNA Stop: 05/20/24 08:59 Last Admin: 04/24/24 08:17 Dose: 5 mls/min Insulin Aspart (Insulin Aspart Per Unit Charge) 0 units SC ACHS GEOVANNA; Protocol Stop: 05/21/24 11:29 Last Admin: 04/24/24 08:13 Dose: 4 units Insulin Glargine (Lantus Per Unit Charge) 20 units SC DAILY [facility]; Protocol Stop: 05/21/24 07:44 Last Admin: 04/24/24 08:20 Dose: 20 units Miscellaneous (Carbohydrates For Hypoglycemia ) 15 - 30 gm PO UD PRN PRN Reason: Hypoglycemia Treatment Stop: 05/20/24 07:59 Last Admin: 04/24/24 10:18 Dose: 15 gm Miscellaneous Information (Pharmacy Glycemic Mgmt Consult) 1 each N/A UD PRN PRN Reason: Consult Stop: 05/19/24 19:48 Morphine Sulfate (Morphine Sulfate 4 Mg/Ml 1 Ml Carp\Vial) 4 mg IV Q3H PRN PRN Reason: Pain Stop: 05/03/24 19:40 Last Admin: 04/24/24 08:31 Dose: 4 mg Ondansetron HCl (Ondansetron Inj 2 Mg/Ml 2 Ml Vial) 4 mg IV Q6H PRN PRN Reason: Nausea And Vomiting Stop: 05/22/24 15:21 Last Admin: 04/24/24 05:34 Dose: 4 mg Oxycodone/Acetaminophen (Oxycodone/Acetaminophen 5mg/325mg Tab) 1 tab PO Q4H PRN PRN Reason: Pain Stop: 05/08/24 09:38 Polyethylene Glycol (Polyethylene (Miralax) 17 Gm Pack) 17 gm PO DAILY PRN PRN Reason: Constipation Stop: 05/23/24 23:21 Last Admin: 04/24/24 00:09 Dose: 17 gm Thiamine HCl (Thiamine Hcl 100 Mg Tab) 100 mg PO QAM [facility] Stop: 05/20/24 08:59 Last Admin: 04/24/24 08:16 Dose: 100 mg (6) Asthma Asthma severity: moderate Asthma persistence: persistent Asthma complication type: uncomplicated Qualified Code(s): J45.40 - Moderate persistent asthma, uncomplicated
[2024-04-24] MEDS: CALCIUM CARBONATE 500 MG CHEWABLE TAB PO PRN (11:44)
[2024-04-24] MEDS: oxyCODONE/ACETAMINOPHEN 5mg/325mg TAB PO PRN (11:45)
[2024-04-24] MEDS: oxyCODONE/ACETAMINOPHEN 5mg/325mg TAB PO STA (12:08)
--- NOTE | 2024-04-24 13:44 | Electrocardiogram Report ---
Test Reason : Blood Pressure : */* mmHG Vent. Rate : 82 BPM Atrial Rate : 82 BPM P-R Int : 148 ms QRS Dur : 76 ms QT Int : 350 ms P-R-T Axes : 49 23 -6 degrees QTcB Int : 408 ms Normal sinus rhythm Normal ECG When compared with ECG of 19-Apr-2024 15:27, Criteria for Septal infarct are no longer Present Nonspecific T wave abnormality, improved in Lateral leads Confirmed by Michael Sauceda ([id number]) on 04/24/2024 1:44:37 PM Referred By: REFERRED SELF Confirmed By: Michael Sauceda
[2024-04-25] MEDS: ONDANSETRON 4 MG OD TAB PO PRN (05:57)
[2024-04-25 06:47] LABS: BUN Creatinine Ratio 27.5 (10-20); Calcium 7.9 mg/dl (8.6-10.3); Est GFR (African American) 142.4 ml/min; Est GFR (Non-African American) 122.8 ml/min; Magnesium 1.2 mg/dl (1.7-2.4); Phosphorus 2.8 mg/dl (2.5-4.9); Potassium 3.9 mmol/L (3.5-5.1)
[2024-04-25 07:15] VITALS: RESP 18; O2SAT 99
--- NOTE | 2024-04-25 08:40 | Pharmacy Report ---
Pharmacy Glycemic Sign Off Nt - Date of Service April 25, 2024 - Assessment & Plan ASSESSMENT: * Pharmacy was consulted on 04/19 for glycemic control and to write orders per [facility] inpatient glycemic control protocol. * Major changes made by pharmacy to antidiabetic regimen include: * Transition off insulin drip to SQ insulin * Patient has been receiving ~24 units/day of insulin. She did have a low BSG yesterday afternoon and refused insulin last evening. This AM, refusing Lantus 20 units and requesting maximum of 15 units with fasting BSG 279mg/dl (fasting BSG yesterday 232mg/dL). D/w Dr. Allen - Lantus adjusted to 15 units daily per patient request. Pharmacy to sign off. * Pharmacy is signing off of glycemic consult and will no longer be making adjustments to inpatient regimen. Please feel free to re-consult if needed. Thank you.
[2024-04-25] MEDS: LANTUS PER UNIT CHARGE SC SCH (09:06)
[2024-04-25] MEDS: MAGNESIUM SULFATE / D5W 1 GM/100 ML BAG IV SCH (09:06)
[2024-04-25] MEDS: MAGNESIUM OXIDE 400 MG TAB PO SCH (09:06)
--- NOTE | 2024-04-25 10:52 | Discharge Summary ---
Discharge Summary Date of Service April 25, 2024 Principal Dx & Hospital Course #1 = Principal Diagnosis (1) DKA (diabetic ketoacidosis): (2) ALEXIS (acute kidney injury): (3) DMII (diabetes mellitus, type 2): (4) Bipolar disorder: (5) Chronic pancreatitis: (6) Major depressive disorder: (7) Asthma: Notes For Next Care Provider Patient presented to the emergency room with increasing abdominal pain nausea and vomiting. Patient has known history of chronic pancreatitis with biliary stent follows with GI as an outpatient. In the emergency room noted to have DKA with multiple electrolyte abnormalities as well as a flare of her chronic pancreatitis. Patient was admitted initially to the ICU. Treated with DKA protocol with aggressive fluid resuscitation, electrolyte replacement and IV insulin. Her DKA resolved and her electrolytes stabilized. She was transition back to subcutaneous insulin. Her diet was advanced. She was transition out of the ICU. Her electrolytes continue to be replaced. On the day of discharge her abdominal discomfort has manageable. Her glucoses have come under fair control with subcutaneous insulin. Patient is hesitant to increase her basal insulin due to the fact that she has a 1 hypoglycemic event yesterday since then her sugars have been in the 200s. She reports that she does have a sliding scale of NovoLog at home which she uses but had declined NovoLog here. Was agreeable to a slight increase in her Lantus dosing here. She was up and ambulatory. Other vital signs are stable. Tolerated full diet. She be discharged home with outpatient follow-up as already arranged with her GI provider for the biliary stent to be removed and ongoing follow-up for chronic pancreatitis. She will follow-up with her PCP for ongoing management of her diabetes. Medication Changes From Visit Lantus dose increased slightly Omeprazole added to medical regimen Admission HPI Per Admitting Provider Patient is 38-year-old female with PMH HTN, DM II, ETOH use, recurrent pancreatitis, with current stent, asthma, bipolar disorder, anxiety presented to ER with complaint of abdominal pain, nausea, vomiting and shortness of breath. History of hospitalization 02/28/2024-03/06/2024 for recurrent acute on chronic pancreatitis. Patient states did not follow up after hospital discharge but does state she is scheduled for ERCP with stent removal and exchange on 05/08/[address] Nielsen. She reports ongoing abdominal pain since last admission with nausea and reports vomiting anytime she drinks or eats. States drinking sips of water and sips of smoothie and then will have nausea and vomits. She doesn't feel her abdominal pain improved any. She states recently she has been feeling SOB and thinks this has been over a week. She states today felt more SOB so came to ER for evaluation. She states she feels tired and sleepy. She reports feeling more dehydrated this week. She states hasn't been taking her temperature at home but thinks maybe feeling more warm than usual. Patient reports is to be taking Lantus 12 units daily and she reports having NovoLog to use on a sliding scale. Per discharge summary 03/06/2024 patient was discharged on 12 units Lantus daily and NovoLog 5 units ACHS. Patient states she is not using insulin as it was prescribed previously and it is unclear how or if patient using insulin. Patient states previously on Abilify and Ativan however has not used for nearly a year. Patient reports she last drank alcohol 3 weeks ago. Reports uses medical marijuana daily. Denies hematemesis, diarrhea, constipation, ECHEVARRIA, syncope, vision changes, CP, palpitations, rhinorrhea, extremity weakness, extremity edema, rashes, dysuria, hematuria. Admission Exam Per Admitting Provider I refer you to the H&P Discharge Exam Constitutional: Alert HEENT: Mucous membranes moist. Lungs: Clear to auscultation, decreased, no wheezes rales or rhonchi CV: S1-S2, regular Abdomen: Soft, very minimal epigastric tenderness, no guarding or rigidity nondistended Extremities: No significant edema Neuro: No focal deficits Psych: Cooperative, normal mood Updated Medication List Medication Instructions Recorded Confirmed Type epinephrine 0.3 mg/0.3 mL 0.3 mg IM UD PRN Allergic Reaction 11/18/21 04/19/24 History injection, auto-injector Medical Marijuana 1 dose inhalation HS PRN Sleep 02/08/22 04/19/24 History insulin aspart U-100 100 unit/mL 5 unit (0.05 mL) SC ACHS #10 mL 03/06/24 04/19/24 Rx subcutaneous solution (Novolog U-100 Insulin aspart) loratadine 10 mg tablet (Wal-itin) 10 mg PO HS #7 tabs 03/06/24 04/19/24 Rx magnesium chloride 64 mg 64 mg PO DAILY #30 tabs 03/06/24 04/19/24 Rx (magnesium chloride) tablet,delayed release insulin glargine 100 unit/mL 12 unit SC QAM 04/19/24 04/19/24 History subcutaneous solution (Lantus U-100 Insulin) blood sugar diagnostic #100 ea 04/25/24 Rx blood-glucose meter #1 ea 04/25/24 Rx diabetic supplies, miscellan. #25 ea 04/25/24 Rx lancets #200 ea 04/25/24 Rx omeprazole 40 mg capsule,delayed 40 mg PO DAILY #30 caps 04/25/24 Rx release pen needle, diabetic 32 gauge x #100 ea 04/25/24 Rx 5/32" (Easy Comfort Pen [place]) Hospital Stay Data Consultations 04/19/24 18:41 Consult Broach Operator Stat ED Decision to Admit Stat 04/19/24 19:49 Consult Gastroenterology Routine Consult Broach Operator Routine 04/24/24 00:35 Consult Nutrition Routine Diagnostic Imagining Performed 04/19/24 17:17 CT abd pelvis IV con only Stat Reviewed imaging, laboratory and diagnostic studies. Pertinent findings as below. Sodium 131 Creatinine 0.51 Glucose 207 Magnesium 1.2, repleted prior to discharge Lipase initially 549, improved to 196 Pending Results Patient Have Any Pending Studies at Discharge: No Discharge Instructions Given to Patient (Per Discharging Provider) Follow-up with your vessel master as coordinated Strongly recommend you abstain from all beer and alcohol Total Time Total Time Spent Total Time Spent (In Minutes): 33
[2024-04-25 11:16] VITALS: BP 108/73; TEMP 97.5
[2024-04-25 14:19] VITALS: PULSE 83
--- NOTE | 2024-04-25 14:36 | Electrocardiogram Report ---
Test Reason : Blood Pressure : */* mmHG Vent. Rate : 82 BPM Atrial Rate : 82 BPM P-R Int : 138 ms QRS Dur : 76 ms QT Int : 352 ms P-R-T Axes : 44 15 8 degrees QTcB Int : 411 ms Normal sinus rhythm Nonspecific T wave abnormality Abnormal ECG When compared with ECG of 23-Apr-2024 23:10, No significant change was found Confirmed by Michael Sauceda ([id number]) on 04/25/2024 2:35:21 PM Referred By: REFERRED SELF Confirmed By: Michael Sauceda
== END 2024-04-25 14:40 | disposition home or self-care (01) | DRG 637 ==
LOC: ED 15:10 → EDINP 18:56 → SUATTDRO 18:56 → 1E 19:49 → 2E 04-22 18:50

== ENCOUNTER 2024-06-07 02:51 | Inpatient (IN) ==
--- NOTE | 2024-06-07 03:27 | Emergency Department Note ---
Impression & Plan Acute hyperglycemia, Hypoglycemia, Paranoid delusion ED Provider Note Name: JULIA WEBB Age: 38 Sex: Female Arrives Via: Walk-In Informant: Patient ED Provider: Solomon Willams MD Chief Complaint: Mental health evaluation Impression: As per impressions above Medical Decision Makin-year-old female arrives for evaluation of mental health crisis. Patient with a history of depression/bipolar disorder previous hospitalization several years ago, type 1 diabetes, asthma, GERD. Patient reporting paranoid delusions and perceived hacks into her phone to control her insulin management. She is calm cooperative without any reported thoughts of harm to herself or others. I had a bit worried she is no longer caring properly for her diabetes given the degree of paranoia she is having. That said she is awake oriented and otherwise answering questions appropriately. Patient agreeable to laboratory workup. This does reveal she has a significantly elevated blood sugar. Sodium is a bit low which could theoretically cause delusions however suspect this is artificially low due to significant hyperglycemia. Given patient's history I think it is high risk to discharge her to manage this at home. She is quite hesitant about staying but after extensive discussion with her agrees for hospitalist evaluation. Patient did note that she has previously had bad experiences at this facility. She feels that she is usually held in the ER for far too long. I noted that she would continue getting the treatment that she requires regardless of location. She asks something for her level of anxiety from this and thus was given some Ativan. She also noted some abdominal discomfort for which I added an Tylenol. She is not having any severe abdominal pain we will hold off on lipase or CT abdomen pelvis at this point unless symptoms worsen. After discussing with case management they feel that patient likely does not meet 302 criteria though they two were a bit concerned that her allowing blood sugars to go so elevated could be a sign of worsening inability to care for self. Triage/Nursing Notes reviewed by Me External Chart Review by me: Reviewed discharge summary records from April 25, 2024 describing previous hospitalization for severe hyperglycemia/DKA Differential:Mood disorder, infection, hypoglycemia, electrolyte abnormalities, cardiac sources, intracerebral event, toxicologic, trauma, neurologic, as well as other pathologies. Vital Signs: reviewed and remarkable for mild tachy on arrival Interventions: nss bolus, insulin gtt, ativan 1g iv, tylenol iv Labs:ED labs Reviewed by me and remarkable for ++bsg, low na Consults:Discussed with [facility] who will further evaluate for management Plan: Disposition:Hospitalization. Condition: Good History of Present Illness: 38-year-old female arrives for mental health evaluation. Patient arrives via police. Patient reports that she has been followed and monitored by ex coworkers from the [facility] [employer] [facility]. She believes they are hacking into her cell phone. She notes that some of her friends may also be involved in this. She states someone has been monitoring her cell phone and not allowing calls to go through. She also states that her diabetes monitoring jelani has also been hacked so she does not know how much insulin to take. Patient states that people have been outside of her room wearing masks and talking about her when they think she is asleep. Patient denies any thoughts of harming herself or any wish to harm others. Patient states that she had a "manic episode" that resulted in hospitalization here at [facility] 2 to 3 years ago. Patient denies any recent alcohol use. She denies any chest pain, shortness of breath, headaches, abdominal pain. Denies any cough cold or other symptoms. Denies any known sick contacts. Past Medical History: Bipolar, depression, type 1 diabetes, asthma, GERD Home Medications:See Below Allergies: Bee venom Vitals:Blood Pressure: 151/113, Pulse 113, RR 18, T 36.4C, O2 100% on RA Physical Exam: GENERAL: Patient is mildly anxious appearing and in no acute distress. RESPIRATORY: No dyspnea. Clear to auscultation and equal bilaterally. CARDIOVASCULAR: Regular rate and rhythm.No murmur appreciated. GASTROINTESTINAL: Abdomen soft, non-tender, no peritonitis. EXTREMITIES: Normal motion all extremities, no cyanosis, no edema. NEUROLOGIC: Alert and oriented. No focal neurologic deficits appreciated SKIN: No rash, no jaundice, no diaphoresis. PSYCH: Anxious, discussing paranoid thoughts, denies suicidal/homicidal ideation GCS: 15 ED Course: Times/Reassessments: Patient stable. She is cooperative though quite upset that she requires hospitalization. Solomon Willams MD Past Med/Surg History Problem List (Updated 05/26/24 @ 00:08 by Background Daemon) Hyperosmolar hyperglycemic state (HHS) Paranoid delusion (Acute) Hypoglycemia (Acute) Acute hyperglycemia (Acute) Type 1 diabetes mellitus Hypokalemia (Acute) DKA (diabetic ketoacidosis) (Acute) Abdominal pain (Acute) Dyspnea (Acute) Hypomagnesemia Hyponatremia History of tonsillectomy History of adenoidectomy Presence of pancreatic duct stent (Acute) Chronic pancreatitis Acute on chronic pancreatitis 08/30/23- admitted to [facility] Bipolar disorder Alcohol use disorder quit 1.5 years ago ANGE (generalized anxiety disorder) Asthma has not used inhaler for a long time Cardiac murmur no significant valvular disease on 08/20/2019 echo GERD (gastroesophageal reflux disease) Scoliosis MINOR History of section x 2 Medical History (Updated 06/07/24 @ 06:24 by Sherwin Ibanez MD) Vomiting Acute pancreatitis Epigastric abdominal pain Encounter for pre-operative examination History of prolonged Q-T interval on ECG Pancreatic stones Chronic neck pain Medical marijuana use Post traumatic stress disorder (PTSD) Diabetes IDDM Hgb A1C 12.3 in 08/2023 Surgical History (Updated 05/26/24 @ 00:08 by Kimo Denton) History of tonsillectomy and adenoidectomy History of esophagogastroduodenoscopy (EGD) History of ERCP Family History Other Adopted No family history of adverse response to anesthesia Social History Smoking Status: Current every day smoker Tobacco Type: E-cigarettes / Vaping Second Hand Exposure: Yes (at work); Do You Dip or Chew Tobacco: No; Hx Alcohol Use: No Hx Substance Use: No Preferred Language: Indian 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: Effective Shell Grader Required: No Beliefs That Will Affect Care: None marital status: Single Current Living Situation: Family Current Living Situation Comment: family Feels Safe at Home: Yes Gender Identity: Female Assistive Devices: None Allergies Allergies Allergy/AdvReac Type Severity Reaction Status Date / Time bee venom protein (honey bee) Allergy Severe ANAPHYLAXIS Verified 05/24/24 08:07 Home Meds Home Medications Medication Instructions Recorded Confirmed epinephrine 0.3 mg/0.3 mL 0.3 mg IM UD PRN Allergic Reaction 11/18/21 05/24/24 injection, auto-injector Medical Marijuana 1 dose inhalation HS PRN Sleep 02/08/22 05/24/24 insulin aspart U-100 100 unit/mL 5 unit SC ACHS 05/06/24 05/24/24 subcutaneous solution (Novolog U-100 Insulin aspart) Previous Rx's Medication Instructions Recorded blood sugar diagnostic #100 ea 04/25/24 blood-glucose meter #1 ea 04/25/24 diabetic supplies, miscellan. #25 ea 04/25/24 insulin glargine 100 unit/mL 15 unit (0.15 mL) SC QAM #0 mL 04/25/24 subcutaneous solution (Lantus U-100 Insulin) lancets #200 ea 04/25/24 magnesium chloride 64 mg 64 mg PO BID #60 tabs 04/25/24 (magnesium chloride) tablet,delayed release omeprazole 40 mg capsule,delayed 40 mg PO DAILY #30 caps 04/25/24 release oxycodone 5 mg tablet 5 mg PO Q8H PRN pain #15 tabs 04/25/24 blood-glucose sensor (FreeStyle #2 ea 05/10/24 Raiza 3 Plus Sensor device) pen needle, diabetic 32 gauge x #200 ea 05/10/2432" (BD Bozena 2nd Gen Pen Needle) blood-glucose sensor (Dexcom G7 #3 ea 05/27/24 Sensor device) insulin pump cart,automated,BT #10 ea 05/27/24 (Omnipod 5 G6 Pods (Gen 5) subcutaneous cartridge) insulin pump cartridge,automated #1 ea 05/27/24 dose,BT with controller subcutaneous (Omnipod 5 G6 Intro Kit (Gen 5) subcutaneous cartridge with controller) insulin aspart U-100 100 unit/mL 50 unit (0.5 mL) continuous 05/28/24 subcutaneous solution (Novolog subcutaneous infusion DAILY #20 mL U-100 Insulin aspart) Results & Data (ED) Vital Signs Vital Signs - 24 hr 06/07/24 02:55 06/07/24 04:51 06/07/24 04:54 Temperature 36.4 C L Temperature Source Temporal Artery Scan Pulse Rate 113 H 86 Pulse Rate [Left] 85 Pulse Rhythm [Left] Regular Pulse Strength [Left] Normal Respiratory Rate 18 20 Respiratory Effort / Characteristics Non-Labored Spontaneous Non-Labored Spontaneous Respiratory Depth Normal Normal Respiratory Pattern Regular Blood Pressure 151/113 H Blood Pressure [Left Arm] 121/78 Blood Pressure Mean 125 Blood Pressure Mean [Left Arm] 92 Blood Pressure Position [Left Arm] Lying Pulse Oximetry 100 Oxygen Delivery Method Room Air Room Air Sepsis Recent Fever Within 48 Hours No Sepsis New/Unexplained Change in Mental Status N/A Sepsis Action Taken by Nursing No Action Required Laboratory Data 06/07/24 03:21 06/07/24 03:21 Lab Results 06/07/24 06/07/24 06/07/24 Range/Units 02:21 03:10 03:21 WBC 9.33 (4.8-10.8) K/ul RBC 3.57 L (4.20-5.40) M/uL Hgb 11.2 L (12.0-16.0) g/dl Hct 30.0 L (37.0-47.0) % MCV 84.0 (80.0-100.0) fL MCH 31.4 (25.0-34.0) pg MCHC 37.3 H (32.0-36.0) g/dL RDW Std Deviation 36.5 (36.4-46.3) fL RDW Coeff of Arnold 11.9 (11.5-14.5) % Plt Count 323 (130-400) K/uL MPV 10.5 (9.4-12.4) fL Immature Gran % (Auto) 0.2 % Neut % (Auto) 69.4 % Lymph % (Auto) 19.7 % Starr % (Auto) 9.1 % Eos % (Auto) 1.2 % Baso % (Auto) 0.4 % Neut # (Auto) 6.47 (1.40-6.50) K/uL Lymph # (Auto) 1.84 (1.20-3.40) K/uL Starr # (Auto) 0.85 H (0.11-0.59) K/uL Eos # (Auto) 0.11 (0.00-0.50) K/uL Baso # (Auto) 0.04 (0.00-0.20) K/uL Immature Gran # (Auto) 0.02 (0.01-0.20) K/uL Sodium 120 L (136-145) mmol/L Potassium 3.1 L (3.5-5.1) mmol/L Chloride 71 L (98-107) mmol/L Carbon Dioxide 36 H (21-32) mmol/L Anion Gap 13 H (3-11) BUN 15 (6-23) mg/dl Creatinine 0.89 (0.6-1.2) mg/dl Est Cr Clr Drug Dosing 65.3 ml/min eGFR 85.58 BUN/Creatinine Ratio 16.9 (10-20) Glucose 624 H* (70-99(Fasting)) mg/dl POC Glucose 577 H* (70-99) mg/dl Osmolality 287 (280-300) mOsm/kg Calcium 10.5 H (8.6-10.3) mg/dl Total Bilirubin 0.6 (0.2-1.0) mg/dl AST 13 (13-39) U/L ALT 13 (7-52) U/L Alkaline Phosphatase 80 (34-104) U/L Total Protein 8.1 (6.0-8.3) gm/dl Albumin 4.4 (3.4-5.0) gm/dl Globulin 3.7 (2.5-4.0) gm/dl Albumin/Globulin Ratio 1.2 (0.9-2) TSH 0.797 (0.300-4.500) uIu/ml Urine Color Yellow Urine Appearance Clear (Clear) Urine pH 7.0 (4.5-7.5) Ur Specific Cordova 1.031 H (1.000-1.030) Urine Protein 1+ H (Negative) Urine Glucose (UA) 3+ H (Negative) Urine Ketones 1+ H (Negative) Urine Blood 1+ H (Negative) Urine Nitrite Negative (Negative) Urine Bilirubin Negative (Negative) Urine Urobilinogen Negative (Negative) Ur Leukocyte Esterase Negative (Negative) Urine WBC (Auto) 0-5 (0-5) /hpf Urine RBC (Auto) 3-5 H (0-2) /hpf U Hyaline Cast (Auto) 0-2 (0-2) /lpf U Epithel Cells (Auto) 0-2 (0-2) /hpf Urine Bacteria (Auto) None Seen (None Seen) Salicylates < 3.0 L (3.0-30) mg/dl Urine Opiates Screen Neg (Neg) Ur Methadone, Qual Neg (Neg) Urine Fentanyl Screen Neg (Neg) Acetaminophen < 3 L (10-30) ug/ml Urine Barbiturates Neg (Neg) Ur Phencyclidine (PCP) Neg (Neg) U Amphetamin/Meth Scrn Neg (Neg) MDMA (Ecstasy) Screen Neg (Neg) U Benzodiazepines Scrn Neg (Neg) Ur Cocaine Metabolite Neg (Neg) U Marijuana (THC) Screen Pos H (Neg) Ethyl Alcohol mg/dL < 10.0 (<10.0) mg/dl SARS-CoV-2, RNA, NAAT NEGATIVE (NEGATIVE) 06/07/24 Range/Units 05:45 WBC (4.8-10.8) K/ul RBC (4.20-5.40) M/uL Hgb (12.0-16.0) g/dl Hct (37.0-47.0) % MCV (80.0-100.0) fL MCH (25.0-34.0) pg MCHC (32.0-36.0) g/dL RDW Std Deviation (36.4-46.3) fL RDW Coeff of Arnold (11.5-14.5) % Plt Count (130-400) K/uL MPV (9.4-12.4) fL Immature Gran % (Auto) % Neut % (Auto) % Lymph % (Auto) % Starr % (Auto) % Eos % (Auto) % Baso % (Auto) % Neut # (Auto) (1.40-6.50) K/uL Lymph # (Auto) (1.20-3.40) K/uL Starr # (Auto) (0.11-0.59) K/uL Eos # (Auto) (0.00-0.50) K/uL Baso # (Auto) (0.00-0.20) K/uL Immature Gran # (Auto) (0.01-0.20) K/uL Sodium (136-145) mmol/L Potassium (3.5-5.1) mmol/L Chloride (98-107) mmol/L Carbon Dioxide (21-32) mmol/L Anion Gap (3-11) BUN (6-23) mg/dl Creatinine (0.6-1.2) mg/dl Est Cr Clr Drug Dosing ml/min eGFR BUN/Creatinine Ratio (10-20) Glucose (70-99(Fasting)) mg/dl POC Glucose 531 H* (70-99) mg/dl Osmolality (280-300) mOsm/kg Calcium (8.6-10.3) mg/dl Total Bilirubin (0.2-1.0) mg/dl AST (13-39) U/L ALT (7-52) U/L Alkaline Phosphatase (34-104) U/L Total Protein (6.0-8.3) gm/dl Albumin (3.4-5.0) gm/dl Globulin (2.5-4.0) gm/dl Albumin/Globulin Ratio (0.9-2) TSH (0.300-4.500) uIu/ml Urine Color Urine Appearance (Clear) Urine pH (4.5-7.5) Ur Specific Cordova (1.000-1.030) Urine Protein (Negative) Urine Glucose (UA) (Negative) Urine Ketones (Negative) Urine Blood (Negative) Urine Nitrite (Negative) Urine Bilirubin (Negative) Urine Urobilinogen (Negative) Ur Leukocyte Esterase (Negative) Urine WBC (Auto) (0-5) /hpf Urine RBC (Auto) (0-2) /hpf U Hyaline Cast (Auto) (0-2) /lpf U Epithel Cells (Auto) (0-2) /hpf Urine Bacteria (Auto) (None Seen) Salicylates (3.0-30) mg/dl Urine Opiates Screen (Neg) Ur Methadone, Qual (Neg) Urine Fentanyl Screen (Neg) Acetaminophen (10-30) ug/ml Urine Barbiturates (Neg) Ur Phencyclidine (PCP) (Neg) U Amphetamin/Meth Scrn (Neg) MDMA (Ecstasy) Screen (Neg) U Benzodiazepines Scrn (Neg) Ur Cocaine Metabolite (Neg) U Marijuana (THC) Screen (Neg) Ethyl Alcohol mg/dL (<10.0) mg/dl SARS-CoV-2, RNA, NAAT (NEGATIVE) Administered Medications Insulin Human Regular 250 (units/ Sodium Chloride) 250 mls @ 5.1 mls/hr IV .Q24H GEOVANNA; Protocol Stop: 07/07/24 04:29 Last Admin: 06/07/24 06:47 Dose: 5.1 units/hr, 5.1 mls/hr Documented By: JANETTE Co-signed By: Potassium Chloride (K Fredi / Wtr) 10 meq in 100 mls @ 100 mls/hr IV Q1H GEOVANNA Stop: 06/07/24 09:44 Last Admin: 06/07/24 06:08 Dose: 100 mls/hr Documented By: JANETTE Discontinued Medications Parenteral Electrolytes (Plasma-Lyte A Ph 7.4) 1,000 mls @ 999 mls/hr IV .Q1H1M ONE Stop: 06/07/24 05:21 Last Infusion: 06/07/24 06:50 Dose: Infused Documented By: Admin: 06/07/24 04:59 Dose: 999 mls/hr Documented By: JANETTE Acetaminophen (Ofirmev) 1,000 mg in 100 mls @ 400 mls/hr IV NOW STA Stop: 06/07/24 04:39 Last Infusion: 06/07/24 05:03 Dose: Infused Documented By: Admin: 06/07/24 04:43 Dose: 400 mls/hr Documented By: JANETTE Insulin Human Regular (Novolin-R Bolus From Bag) 5 units IV ONE ONE Stop: 06/07/24 05:01 Last Admin: 06/07/24 06:49 Dose: 5 units Documented By: JANETTE Co-signed By: PAM Lorazepam (Lorazepam 1 Mg/1 Ml Syr Ed Inj Use) 1 mg IV ONE STA Stop: 06/07/24 04:26 Last Admin: 06/07/24 04:43 Dose: 1 mg Documented By: JANETTE Miscellaneous (Stat Iv Infusion Titration Per Protocol) 1 each N/A NOW STA Stop: 06/07/24 04:22 Last Admin: 06/07/24 04:53 Dose: Not Given Documented By: JANETTE Potassium Chloride (Potassium Chloride Crtab 20 Meq Tabcr) 40 meq PO NOW STA Stop: 06/07/24 04:33 Last Admin: 06/07/24 05:07 Dose: 40 meq Documented By: JANETTE Imaging Data Radiologist's Impression: Head CT 06/07/24 05:45 CT head/brain wo con CLINICAL HISTORY: confusion Technique: Contiguous axial CT images of the head were acquired from the base of the skull to the vertex without intravenous contrast administration. Images were viewed in brain, subdural and bone windows. Automated dose lowering techniques and/or adjustment according to patient size were utilized for this exam. Comparison: Comparison is made to CT head 03/03/2024 Findings: The ventricles, basal cisterns, and cerebral sulci are normal. There is no acute intracranial hemorrhage or evidence of acute territorial infarction. Neither mass effect, shift of the midline structures, nor abnormal extra-axial fluid collections are shown. Imaged portions of the paranasal sinuses and mastoid air cells are clear. The orbits appear normal. There are no acute fractures of the calvaria or scalp swelling. Impression: No acute intracranial hemorrhage, no evidence of acute territorial infarction or other acute intracranial disease process. ACT 112: Negative or not required by law. Electronically signed by: Fausto Garcia M.D. 06/07/2024 6:47 AM Discharge Plan Visit Data Chief Complaint: Mental Health Evaluation Stated Complaint: MENTAL HEALTH EVAL ED Provider: Solomon Willams Discharge Problem: Acute hyperglycemia, Hypoglycemia, Paranoid delusion Forms Stand Alone Forms: My [facility] ADINCON, Suicide Prevention Resources Prescriptions Prescriptions: No Action insulin aspart U-100 [Novolog U-100 Insulin aspart] 100 unit/mL solution 5 unit SC ACHS (DME) FreeStyle Raiza 3 Plus Sensor Device See Rx Instructions .ROUTE .MEDSUPPLY Qty: 2 11RF Rx Instructions: change sensor every 15 days (DME) pen needle, diabetic [BD Bozena 2nd Gen Pen Needle] 32 gauge x 5/32" needle See Rx Instructions .ROUTE .MEDSUPPLY Qty: 200 11RF Rx Instructions: change needle with each injection 4x daily (DME) Omnipod 5 G6 Intro Kit (Gen 5) Cartridge See Rx Instructions .ROUTE .MEDSUPPLY Qty: 1 0RF Rx Instructions: change pods every 3 days (DME) Omnipod 5 G6 Pods (Gen 5) Cartridge See Rx Instructions .ROUTE .MEDSUPPLY Qty: 10 11RF Rx Instructions: change pods every 3 days (DME) Dexcom G7 Sensor Device See Rx Instructions .ROUTE .MEDSUPPLY Qty: 3 11RF Rx Instructions: change sensor every 10 days insulin aspart U-100 [Novolog U-100 Insulin aspart] 100 unit/mL solution 50 unit continuous subcutaneous infusion DAILY Qty: 20 2RF Rx Instructions: for use in insulin pump epinephrine 0.3 mg/0.3 mL auto-injector 0.3 mg IM UD PRN (Reason: Allergic Reaction) Rx Instructions: This is out of date, pt states she needs a new script Medical Marijuana 1 dose inhalation HS PRN (Reason: Sleep) omeprazole 40 mg capsule,delayed release(DR/EC) 40 mg PO DAILY Qty: 30 0RF insulin glargine [Lantus U-100 Insulin] 100 unit/mL solution 15 unit SC QAM Qty: 0 0RF magnesium chloride 64 mg tablet,delayed release (DR/EC) 64 mg PO BID Qty: 60 0RF (DME) diabetic supplies, miscellan. Misc See Rx Instructions .Route Qty: 25 0RF Rx Instructions: Before every meal and at bedtime (DME) blood-glucose meter Kit See Rx Instructions .Route Qty: 1 0RF Rx Instructions: Before meals and at bedtime (DME) lancets Misc See Rx Instructions .Route Qty: 200 0RF Rx Instructions: Before meals and at bedtime (DME) blood sugar diagnostic Strip See Rx Instructions .Route Qty: 100 0RF Rx Instructions: Before meals and at bedtime oxycodone 5 mg tablet 5 mg PO Q8H PRN (Reason: pain) Qty: 15 0RF Referrals Referrals: Harinder Nathan DO [Primary Care Provider] -
[2024-06-07 03:39] LABS: Basophils # (auto) 0.04 K/uL (0.00-0.20); Basophils % (auto) 0.4 %; Eosinophils # (auto) 0.11 K/uL (0.00-0.50); Eosinophils % (auto) 1.2 %; Hemoglobin 11.2 g/dl (12.0-16.0); Immature Granulocytes # (auto) 0.02 K/uL (0.01-0.20); Immature Granulocytes % (auto) 0.2 %; Lymphocytes # (auto) 1.84 K/uL (1.20-3.40); Lymphocytes % (auto) 19.7 %; Mean Corpuscular Hemoglobin 31.4 pg (25.0-34.0); Mean Corpuscular Hgb Conc 37.3 g/dL (32.0-36.0); Mean Platelet Volume 10.5 fL (9.4-12.4); Monocytes # (auto) 0.85 K/uL (0.11-0.59); Monocytes % (auto) 9.1 %; Neutrophils # (auto) 6.47 K/uL (1.40-6.50); Neutrophils % (auto) 69.4 %; Platelet Count 323 K/uL (130-400); RDW Coefficient of Variation 11.9 % (11.5-14.5); RDW Standard Deviation 36.5 fL (36.4-46.3); Red Blood Count 3.57 M/uL (4.20-5.40); White Blood Count 9.33 K/ul (4.8-10.8)
[2024-06-07 03:41] LABS: Appearance Urine Clear (Clear); Bacteria Urine Automated None Seen (None Seen); Bilirubin Urine Negative (Negative); Blood Urine 1+ (Negative); Cast Urine Automated 0-2 /lpf (0-2); Color Urine Yellow; Epithelial Cell Urine Auto 0-2 /hpf (0-2); Glucose Urine UA 3+ (Negative); Ketones Urine 1+ (Negative); Leukocyte Esterase Urine Negative (Negative); Nitrite Urine Negative (Negative); Protein Urine 1+ (Negative); Specific Gravity Urine 1.031 (1.000-1.030); Urobilinogen Urine Negative (Negative); WBC Urine Automated 0-5 /hpf (0-5)
[2024-06-07 03:57] LABS: Acetaminophen < 3 ug/ml (10-30); Salicylate < 3.0 mg/dl (3.0-30)
[2024-06-07 04:00] LABS: Albumin Globulin Ratio 1.2 (0.9-2); Albumin Level 4.4 gm/dl (3.4-5.0); BUN Creatinine Ratio 16.9 (10-20); Bilirubin,Total 0.6 mg/dl (0.2-1.0); Calcium 10.5 mg/dl (8.6-10.3); Creatinine Clr Calc Pharmacy 65.3 ml/min; Globulin 3.7 gm/dl (2.5-4.0); Potassium 3.1 mmol/L (3.5-5.1); Total Protein 8.1 gm/dl (6.0-8.3)
[2024-06-07 04:06] LABS: Amphetamines+Metham, Urine Neg (Neg); Barbiturates, Urine Neg (Neg); Benzodiazepine, Urine Neg (Neg); Cocaine, Urine Neg (Neg); Fentanyl, Urine Neg (Neg); MDMA (Ecstacy), Urine Neg (Neg); Marijuana, Urine Pos (Neg); Methadone, Urine Neg (Neg); Opiate, Urine Neg (Neg); Phencyclidine, Urine Neg (Neg)
[2024-06-07] MEDS ORDERED: GLUCAGON FOR INJ 1 MG VIAL SQ PRN (04:21)
[2024-06-07] MEDS ORDERED: CARBOHYDRATES FOR HYPOGLYCEMIA PO PRN (04:21)
[2024-06-07] MEDS ORDERED: GLUCOSE 40% GEL 15 GM TUBE PO PRN (04:21)
[2024-06-07] MEDS ORDERED: GLUCOSE 10 TAB/TUBE PO PRN (04:21)
[2024-06-07 04:23] LABS: Thyroid Stimulating Hormone 0.797 uIu/ml (0.300-4.500)
[2024-06-07] MEDS: LORazepam 1 MG/1 ML SYR ED Inj Use IV STA (04:43)
[2024-06-07] MEDS: ACETAMINOPHEN 1,000 MG/100 ML VIAL IV STA ×2 (04:43→20:07)
[2024-06-07] MEDS: STAT IV Infusion **Titration per Protocol STA (04:53)
[2024-06-07] MEDS: PLASMA-LYTE A 1,000 ML IV ONE (04:59)
[2024-06-07] MEDS: POTASSIUM CHLORIDE CRTAB 20 MEQ TABCR PO STA (05:07)
[2024-06-07] MEDS: POTASSIUM CHLORIDE / WTR 10 MEQ/100 ML PLCT IV SCH (06:08)
--- NOTE | 2024-06-07 06:14 | History & Physical Report ---
Date of Service June 07, 2024 Assessment & Plan (1) Hyperosmolar hyperglycemic state (HHS): Plan: 38-year-old female with past medical history significant for diabetes, allergic rhinitis, moderate persistent asthma, heart murmur, hypertension, GERD, chronic neck pain, history of alcoholism, ADHD, depression, depression, general anxiety disorder, Presents with confusion and found to have hyperglycemia. Patient was in the hospital last month with DKA and multiple electrolyte abnormalities and also flare of chronic pancreatitis. She was in the ICU last admit did okay and was discharged. She is on insulin pump. She reports to the hospital for evaluation of mental health crisis.. For the ER patient was reporting paranoid delusions like someone hacking her phone to control her insulin management. And also sugars were found to be significantly elevated and also sodium was low. And she seemed asked something for anxiety and she was given IV Ativan in the ER. Currently patient is very confused. Could tell her name. Knows that she is in the hospital. Knows the month. But could not answer any other questions. And could not get any history currently from the patient. Hemodynamics are okay. Obeying simple commands. Her sodium is 120. Potassium 3.1. Chloride 71. CO2 36. Glucose 624. Calcium 10.5. LFTs were okay. UA shows +1 ketones. Urine drug screen was positive for marijuana. COVID is negative. [facility] Will check serum osmolality Has confusion and paranoia Aggressive fluids Insulin drip protocol Labs every 4 hours per protocol Monitor electrolytes Monitor blood sugars Follow HbA1c levels Close monitor in telemetry Glycemic pharmacy consult. Hyponatremia Sodium 120 Corrected sodium 130 Getting fluids Follow labs closely Confusion and paranoia Possibly from hyperglycemia and hyponatremia and dehydration Will follow CT head Psych consult as patient has history of depression /bipolar History of asthma Currently seems stable We will monitor DVT prophylaxis SCDs for now Disposition Telemetry Full code. To Verify Home meds when patient is more awake. To take off insulin pump for now. History of Present Illness Chief Complaint: Confusion and hyperglycemia Primary Care Provider: Harinder Nathan, 38-year-old female with past medical history significant for diabetes, allergic rhinitis, moderate persistent asthma, heart murmur, hypertension, GERD, chronic neck pain, history of alcoholism, ADHD, depression, depression, general anxiety disorder, Presents with confusion and found to have hyperglycemia. Patient was in the hospital last month with DKA and multiple electrolyte abnormalities and also flare of chronic pancreatitis. She was in the ICU last admit did okay and was discharged. She is on insulin pump. She reports to the hospital for evaluation of mental health crisis.. For the ER patient was reporting paranoid delusions like someone hacking her phone to control her insulin management. And also sugars were found to be significantly elevated and also sodium was low. And she seemed asked something for anxiety and she was given IV Ativan in the ER. Currently patient is very confused. Could tell her name. Knows that she is in the hospital. Knows the month. But could not answer any other questions. And could not get any history currently from the patient. Hemodynamics are okay. Obeying simple commands. Her sodium is 120. Potassium 3.1. Chloride 71. CO2 36. Glucose 624. Calcium 10.5. LFTs were okay. UA shows +1 ketones. Urine drug screen was positive for marijuana. COVID is negative. Past medical history. As mentioned above. Past surgical history. . Dental surgery. EGD with endoscopic ultrasound. ERCP. Social history. Quit smoking 2021. Smoked 4 to 5 cigarettes a day. As per epic did not drink alcohol since May 2022 but patient states significant she drank wine yesterday. Uses marijuana. Allergies Allergy/AdvReac Type Severity Reaction Status Date / Time bee venom protein (honey bee) Allergy Severe ANAPHYLAXIS Verified 05/24/24 08:07 Home Medications Medication Instructions Recorded Confirmed Type epinephrine 0.3 mg/0.3 mL 0.3 mg IM UD PRN Allergic Reaction 11/18/21 05/24/24 History injection, auto-injector Medical Marijuana 1 dose inhalation HS PRN Sleep 02/08/22 05/24/24 History blood sugar diagnostic #100 ea 04/25/24 05/24/24 Rx blood-glucose meter #1 ea 04/25/24 05/24/24 Rx diabetic supplies, miscellan. #25 ea 04/25/24 05/06/24 Rx insulin glargine 100 unit/mL 15 unit (0.15 mL) SC QAM #0 mL 04/25/24 05/24/24 Rx subcutaneous solution (Lantus U-100 Insulin) lancets #200 ea 04/25/24 05/24/24 Rx magnesium chloride 64 mg 64 mg PO BID #60 tabs 04/25/24 05/24/24 Rx (magnesium chloride) tablet,delayed release omeprazole 40 mg capsule,delayed 40 mg PO DAILY #30 caps 04/25/24 05/24/24 Rx release oxycodone 5 mg tablet 5 mg PO Q8H PRN pain #15 tabs 04/25/24 05/06/24 Rx insulin aspart U-100 100 unit/mL 5 unit SC ACHS 05/06/24 05/24/24 History subcutaneous solution (Novolog U-100 Insulin aspart) blood-glucose sensor (FreeStyle #2 ea 05/10/24 05/24/24 Rx Raiza 3 Plus Sensor device) pen needle, diabetic 32 gauge x #200 ea 05/10/24 05/10/24 Rx 5/32" (BD Bozena 2nd Gen Pen Needle) blood-glucose sensor (Dexcom G7 #3 ea 05/27/24 05/27/24 Rx Sensor device) insulin pump cart,automated,BT #10 ea 05/27/24 05/27/24 Rx (Omnipod 5 G6 Pods (Gen 5) subcutaneous cartridge) insulin pump cartridge,automated #1 ea 05/27/24 05/27/24 Rx dose,BT with controller subcutaneous (Omnipod 5 G6 Intro Kit (Gen 5) subcutaneous cartridge with controller) insulin aspart U-100 100 unit/mL 50 unit (0.5 mL) continuous 05/28/24 05/28/24 Rx subcutaneous solution (Novolog subcutaneous infusion DAILY #20 mL U-100 Insulin aspart) Past Med/Surg History Problem List (Updated 05/26/24 @ 00:08 by Background [place]) Hyperosmolar hyperglycemic state (HHS) Paranoid delusion (Acute) Hypoglycemia (Acute) Acute hyperglycemia (Acute) Type 1 diabetes mellitus Hypokalemia (Acute) DKA (diabetic ketoacidosis) (Acute) Abdominal pain (Acute) Dyspnea (Acute) Hypomagnesemia Hyponatremia History of tonsillectomy History of adenoidectomy Presence of pancreatic duct stent (Acute) Chronic pancreatitis Acute on chronic pancreatitis 08/30/23- admitted to [facility] Bipolar disorder Alcohol use disorder quit 1.5 years ago ANGE (generalized anxiety disorder) Asthma has not used inhaler for a long time Cardiac murmur no significant valvular disease on 08/20/2019 echo GERD (gastroesophageal reflux disease) Scoliosis MINOR History of section x 2 Medical History (Updated 06/07/24 @ 06:24 by Sherwin Ibanez MD) Vomiting Acute pancreatitis Epigastric abdominal pain Encounter for pre-operative examination History of prolonged Q-T interval on ECG Pancreatic stones Chronic neck pain Medical marijuana use Post traumatic stress disorder (PTSD) Diabetes IDDM Hgb A1C 12.3 in 08/2023 Surgical History (Updated 05/26/24 @ 00:08 by Kimo Denton) History of tonsillectomy and adenoidectomy History of esophagogastroduodenoscopy (EGD) History of ERCP Family History Other Adopted No family history of adverse response to anesthesia Social History Smoking Status: Current every day smoker Tobacco Type: E-cigarettes / Vaping Second Hand Exposure: Yes (at work); Do You Dip or Chew Tobacco: No; Hx Alcohol Use: No Hx Substance Use: No Preferred Language: Citizen Of [place] 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: Effective Contract Negotiation Manager Required: No Beliefs That Will Affect Care: None marital status: Single Current Living Situation: Family Current Living Situation Comment: family Feels Safe at Home: Yes Gender Identity: Female Assistive Devices: None Review of Systems Review of Systems: Unobtainable due to cognitive status Physical Exam Physical Exam: General- confused Head- atraumatic Eyes- PERRL. ENT- oropharynx clear Neck- supple, no JVD. Lungs- clear to auscultation no wheezing or crackles Heart- regular rhythm; no murmur, no gallop. Abdomen- normal bowel sounds, soft, nontender, no distension Extremities- no pretibial edema, no erythema seen Neuro- alert, oriented x 2; confused.PERRL, no facial palsy; no dysarthria; moves extremities Results & Data Results & Data Vital Signs (Past 12 Hours) Vital Signs Temp Pulse Pulse Resp BP BP Pulse Ox 06/07/24 04:54 86 06/07/24 04:51 85 20 121/78 06/07/24 02:55 36.4 C L 113 H 18 151/113 H 100 O2 Del Method 06/07/24 04:54 06/07/24 04:51 Room Air 06/07/24 02:55 Room Air Diagnostic Findings Laboratory Results WBC 9.33 K/ul (4.8-10.8) 06/07/24 03:21 RBC 3.57 M/uL (4.20-5.40) L 06/07/24 03:21 Hgb 11.2 g/dl (12.0-16.0) L 06/07/24 03:21 Hct 30.0 % (37.0-47.0) L 06/07/24 03:21 MCV 84.0 fL (80.0-100.0) 06/07/24 03:21 MCH 31.4 pg (25.0-34.0) 06/07/24 03:21 MCHC 37.3 g/dL (32.0-36.0) H 06/07/24 03:21 RDW Std Deviation 36.5 fL (36.4-46.3) 06/07/24 03:21 RDW Coeff of Arnold 11.9 % (11.5-14.5) 06/07/24 03:21 Plt Count 323 K/uL (130-400) 06/07/24 03:21 MPV 10.5 fL (9.4-12.4) 06/07/24 03:21 Immature Gran % (Auto) 0.2 % 06/07/24 03:21 Neut % (Auto) 69.4 % 06/07/24 03:21 Lymph % (Auto) 19.7 % 06/07/24 03:21 Sargent % (Auto) 9.1 % 06/07/24 03:21 Eos % (Auto) 1.2 % 06/07/24 03:21 Baso % (Auto) 0.4 % 06/07/24 03:21 Neut # (Auto) 6.47 K/uL (1.40-6.50) 06/07/24 03:21 Lymph # (Auto) 1.84 K/uL (1.20-3.40) 06/07/24 03:21 Sargent # (Auto) 0.85 K/uL (0.11-0.59) H 06/07/24 03:21 Eos # (Auto) 0.11 K/uL (0.00-0.50) 06/07/24 03:21 Baso # (Auto) 0.04 K/uL (0.00-0.20) 06/07/24 03:21 Immature Gran # (Auto) 0.02 K/uL (0.01-0.20) 06/07/24 03:21 Sodium 120 mmol/L (136-145) L 06/07/24 03:21 Potassium 3.1 mmol/L (3.5-5.1) L 06/07/24 03:21 Chloride 71 mmol/L (98-107) L 06/07/24 03:21 Carbon Dioxide 36 mmol/L (21-32) H 06/07/24 03:21 Anion Gap 13 (3-11) H 06/07/24 03:21 BUN 15 mg/dl (6-23) 06/07/24 03:21 Creatinine 0.89 mg/dl (0.6-1.2) 06/07/24 03:21 Est Cr Clr Drug Dosing 65.3 ml/min 06/07/24 03:21 eGFR 85.58 06/07/24 03:21 BUN/Creatinine Ratio 16.9 (10-20) 06/07/24 03:21 Glucose 624 mg/dl (70-99(Fasting)) H* 06/07/24 03:21 POC Glucose 531 mg/dl (70-99) H* 06/07/24 05:45 Calcium 10.5 mg/dl (8.6-10.3) H 06/07/24 03:21 Total Bilirubin 0.6 mg/dl (0.2-1.0) 06/07/24 03:21 AST 13 U/L (13-39) 06/07/24 03:21 ALT 13 U/L (7-52) 06/07/24 03:21 Alkaline Phosphatase 80 U/L (34-104) 06/07/24 03:21 Total Protein 8.1 gm/dl (6.0-8.3) 06/07/24 03:21 Albumin 4.4 gm/dl (3.4-5.0) 06/07/24 03:21 Globulin 3.7 gm/dl (2.5-4.0) 06/07/24 03:21 Albumin/Globulin Ratio 1.2 (0.9-2) 06/07/24 03:21 TSH 0.797 uIu/ml (0.300-4.500) 06/07/24 03:21 Urine Color Yellow 06/07/24 03:10 Urine Appearance Clear (Clear) 06/07/24 03:10 Urine pH 7.0 (4.5-7.5) 06/07/24 03:10 Ur Specific [place] 1.031 (1.000-1.030) H 06/07/24 03:10 Urine Protein 1+ (Negative) H 06/07/24 03:10 Urine Glucose (UA) 3+ (Negative) H 06/07/24 03:10 Urine Ketones 1+ (Negative) H 06/07/24 03:10 Urine Blood 1+ (Negative) H 06/07/24 03:10 Urine Nitrite Negative (Negative) 06/07/24 03:10 Urine Bilirubin Negative (Negative) 06/07/24 03:10 Urine Urobilinogen Negative (Negative) 06/07/24 03:10 Ur Leukocyte Esterase Negative (Negative) 06/07/24 03:10 Urine WBC (Auto) 0-5 /hpf (0-5) 06/07/24 03:10 Urine RBC (Auto) 3-5 /hpf (0-2) H 06/07/24 03:10 U Hyaline Cast (Auto) 0-2 /lpf (0-2) 06/07/24 03:10 U Epithel Cells (Auto) 0-2 /hpf (0-2) 06/07/24 03:10 Urine Bacteria (Auto) None Seen (None Seen) 06/07/24 03:10 Salicylates < 3.0 mg/dl (3.0-30) L 06/07/24 03:21 Urine Opiates Screen Neg (Neg) 06/07/24 03:10 Ur Methadone, Qual Neg (Neg) 06/07/24 03:10 Urine Fentanyl Screen Neg (Neg) 06/07/24 03:10 Acetaminophen < 3 ug/ml (10-30) L 06/07/24 03:21 Urine Barbiturates Neg (Neg) 06/07/24 03:10 Ur Phencyclidine (PCP) Neg (Neg) 06/07/24 03:10 U Amphetamin/Meth Scrn Neg (Neg) 06/07/24 03:10 MDMA (Ecstasy) Screen Neg (Neg) 06/07/24 03:10 U Benzodiazepines Scrn Neg (Neg) 06/07/24 03:10 Ur Cocaine Metabolite Neg (Neg) 06/07/24 03:10 U Marijuana (THC) Screen Pos (Neg) H 06/07/24 03:10 Ethyl Alcohol mg/dL < 10.0 mg/dl (<10.0) 06/07/24 03:21 SARS-CoV-2, RNA, NAAT NEGATIVE (NEGATIVE) 06/07/24 02:21 Code Status & VTE Plan VTE Prophylaxis Plan VTE Prophylaxis will be ordered: Yes
[2024-06-07] MEDS: INSULIN REGULAR 250 UNITS in SODIUM CHLORIDE 0.9% 247.5 ML IV SCH (06:47)
--- NOTE | 2024-06-07 06:48 | CT Scan Report ---
CT head/brain wo con CLINICAL HISTORY: confusion Technique: Contiguous axial CT images of the head were acquired from the base of the skull to the bárbara sher without intravenous contrast administration. Images were viewed in brain, subdural and [facility]. Automated dose lowering techniques and/or adjustment according to patient size were utilized for this exam. Comparison: Comparison is made to CT head 03/03/2024 Findings: The ventricles, basal cisterns, and cerebral sulci are normal. There is no acute intracranial hemorrh age or evidence of acute territorial infarction. Neither mass effect, shift of the midline structures , nor abnormal extra-axial fluid collections are shown. Imaged portions of the paranasal sinuses and mastoid air cells are clear. The orbits appear normal. There are no acute fractures of the calvaria or scalp swelling. Impression: No acute intracranial hemorrhage, no evidence of acute territorial infarction or other acute intracra nial disease process. ACT 112: Negative or not required by law. Electronically signed by: Fausto Garcia M.D. 06/07/2024 6:47 AM
[2024-06-07] MEDS: NovoLIN-R BOLUS FROM BAG IV ONE (06:49)
[2024-06-07 07:07] LABS: Estimated Average Glucose 209 mg/dl; Hemoglobin A1C 8.9 % (4.5-5.6)
[2024-06-07] MEDS: INSULIN ASPART PER UNIT CHARGE SC SCH ×3 (07:17→20:43)
[2024-06-07] MEDS: PLASMA-LYTE A 500 ML IV ONE (07:28)
[2024-06-07] MEDS ORDERED: PHARMACY GLYCEMIC MGMT CONSULT PRN ×2 (07:40→08:36)
[2024-06-07] MEDS ORDERED: PENDING D5 1/2NS+20mEq KCL IVF SCH (08:36)
[2024-06-07] MEDS ORDERED: NITROGLYCERIN SL 0.4 MG/TAB TAB SL PRN (08:36)
[2024-06-07] MEDS ORDERED: HHS GOAL RANGE 250-350 mg/dl ONE (08:36)
[2024-06-07] MEDS ORDERED: PENDING 1/2NSS+20mEq KCL IVF SCH (08:36)
[2024-06-07] MEDS ORDERED: INSULIN ASPART PER UNIT CHARGE SC SCH ×3 (08:36→16:30)
[2024-06-07] MEDS ORDERED: INSULIN REGULAR 250 UNITS in SODIUM CHLORIDE 0.9% 247.5 ML IV SCH (08:36)
[2024-06-07] MEDS ORDERED: STAT IV Infusion **Titration per Protocol STA ×2 (08:36)
[2024-06-07 08:54] LABS: BUN Creatinine Ratio 16.3 (10-20); C Reactive Protein 2.98 mg/dl (0-0.5); Calcium 9.1 mg/dl (8.6-10.3); Creatinine Clr Calc Pharmacy 72.7 ml/min; Magnesium 1.9 mg/dl (1.7-2.4); Phosphorus 2.2 mg/dl (2.5-4.9); Potassium 2.7 mmol/L (3.5-5.1)
[2024-06-07] MEDS: HHS GOAL RANGE 250-350 mg/dl ONE (08:57)
[2024-06-07] MEDS: NSS + 20MEQ KCL 20 MEQ/1,000 ML BAG IV SCH (08:57)
[2024-06-07] MEDS: D5W AND 1/2NSS + 20MEQ KCL 20 MEQ/1,000 ML BAG IV SCH (09:07)
[2024-06-07] MEDS: THIAMINE HCL 200 MG in SODIUM CHLORIDE 0.9% 50 ML IV SCH (09:34)
[2024-06-07] MEDS: FOLIC ACID 1 MG TAB PO SCH (09:40)
[2024-06-07] MEDS: PANTOprazole 40 MG TAB PO SCH (10:04)
--- NOTE | 2024-06-07 10:34 | Pharmacy Report ---
Pharmacy Glycemic Short Note 2 - Date of Service June 07, 2024 - Glycemic Short BSG Results (Last 24 hours): 06/07/24 06/07/24 06/07/24 03:21 05:45 07:49 Glucose 624 H* POC Glucose 577 H* 531 H* 295 H 06/07/24 06/07/24 06/07/24 08:18 08:40 09:36 Glucose 199 H POC Glucose 188 H 270 H OUTPATIENT ANTIDIABETIC REGIMEN: * Novolog insulin pump * Endo notes 05/24/24 - Lantus 15 units once daily, Novolog 7 units TIDM, CF 40, CR 12 ASSESSMENT: * 38 year old admitted with hyperglycemia, [facility] - started on insulin infusion per protocol. BSGs trending down this AM, transitioned over fluids per [facility] protocol. Discussed with provider K - 2.7 this morning, current replacing K with IV K riders, provider okay for insulin drip to continue. AG slightly elevated, but trending down, provider okay to start basal insulin for now. Patient previously known to glycemic service from 04/19/24 admission. Will give home dose of basal insulin for now with overlap with insulin drip 4-6 hours. Likely insulin drip could be d/c later this afternoon. Recheck BMP around 1200 today, will ensure labs stable before d/c insulin drip PLAN FOR INPATIENT GLYCEMIC CONTROL: * Continue insulin infusion per [facility] protocol - likely d/c this afternoon once labs normalize * Basal insulin * Lantus 15 units x 1 now with insulin drip * Bolus insulin * per insulin calculator
[2024-06-07] MEDS: LANTUS PER UNIT CHARGE SC ONE (10:36)
--- NOTE | 2024-06-07 12:37 | Psychiatric Consultation ---
Date of Consultation June 07, 2024 Impression / Recommendations Impression 38 y/o F h/o alcohol use disorder, ANGE, depression, T1DM on insulin pump, Asthma, HTN, GERD who presents with confusion in the context of hyponatremia and hyperglycemia (BG>550). Presented paranoid statements and thought disorganization. Psychiatry consulted for evaluation and recommendations. Patient presents a h/o recurrent hospitalizations for non-adherence. Some concern for primary psychotic or mood disorder given recurrent symptoms. Chart review indicates past paranoia and psychosis has resolved with medical stabilization. Patient is slightly disoriented on interview. Currently suffering from hyperglycemia, electrolyte disturbances which could account for paranoid delusions and disorganized thought process 2/2 delirium. Recommend to continue medical management and monitor for improvement in thought process and content. If psychosis persists would recommend Abilify 10mg HS with plan to titrate up. Overall, I spent a total of 80 minutes with this case including review of chart records, nursing report, review of lab work, direct evaluation of the patient at bedside, counseling the patient, [multidisciplinary team meeting, orders,][discussion of the patient with the hospitalist provider, discussion with the psychiatric liaison during clinical rounds,] and documentation in the electronic health record. (1) Delirium due to another medical condition: (2) Paranoid delusion: (3) Disorganized thought process: (4) Hyponatremia: (5) Hypokalemia: (6) Acute hyperglycemia: (7) Excessive thirst: (8) Type 1 diabetes mellitus: (9) History of mood disorder: (10) Cannabis abuse: Plan -Correct electrolytes -Stabilize BG -Monitor thought process and content for paranoia, hallucinations, delusions -Psychiatry following Psych History Identifying Data 38 y/o F h/o alcohol use disorder, ANGE, depression, T1DM on insulin pump, Asthma, HTN, GERD who presents with confusion in the context of hyponatremia and hyperglycemia (BG>550). Presented paranoid statements and thought disorganization. Psychiatry consulted for evaluation and recommendations. Chief Complaint "People were over at the zipline at my house" History of Present Illness on approach the patient appears drowsy but is awoken easily. She is alert and oriented to self and year however believes it is April. Says that she had a zip line at her house and that there was a lot of traffic over the past few days. Reported past employees wanted to be part of the zip line. That people know that she is "schizo" and took advantage of her. She feels it was a set up. Says that there was a continuous glucose monitor on her roommate and that it was controlling her insulin release. Reports daily marijuana use. Reports last alcohol use was 1 week ago with a glass of wine. Reports increased thirst recently. Currently reports concerns about being mistreated in the hospital however feels safe. She reports 1 past psychiatric hospitalization at her facility. She complains of recent anxiety and depression. Denies history of periods with decreased need for sleep with elevated mood energy or goal directed activity. Denies auditory visualizations. Denies SI or HI. Chart review: Recent hospitalization for DKA. History of paranoia that resolved through medical stabilization. Last seen by our psychiatry consults on March 2022 and diagnosed with bipolar disorder; patient refused psychiatric medications and preferred outpatient care; unclear if she followed up. Patient reports living with her children who are 5 and 8 years of age. Says that roommate is currently there and taking care of them Phil Galeano. Patient provides phone number for this individual however [facility]. CBC TSH within expected limits. ESR and CRP elevated. Sodium 131. Potassium 2.7. Blood glucose 298 and trending down. HbA1c 8.9. UA positive for glucose. UDS positive for THC. COVID-negative. Past Psychiatric History Current Psychiatric Diagnosis: "I don't have any" History of Previous Suicide Attempt: No Allergies Allergy/AdvReac Type Severity Reaction Status Date / Time bee venom protein (honey bee) Allergy Severe ANAPHYLAXIS Verified 05/24/24 08:07 Home Medications Medication Instructions Recorded Confirmed Type epinephrine 0.3 mg/0.3 mL 0.3 mg IM UD PRN Allergic Reaction 11/18/21 05/24/24 History injection, auto-injector Medical Marijuana 1 dose inhalation HS PRN Sleep 02/08/22 05/24/24 History blood sugar diagnostic #100 ea 04/25/24 05/24/24 Rx blood-glucose meter #1 ea 04/25/24 05/24/24 Rx diabetic supplies, miscellan. #25 ea 04/25/24 05/06/24 Rx insulin glargine 100 unit/mL 15 unit (0.15 mL) SC QAM #0 mL 04/25/24 05/24/24 Rx subcutaneous solution (Lantus U-100 Insulin) lancets #200 ea 04/25/24 05/24/24 Rx magnesium chloride 64 mg 64 mg PO BID #60 tabs 04/25/24 05/24/24 Rx (magnesium chloride) tablet,delayed release omeprazole 40 mg capsule,delayed 40 mg PO DAILY #30 caps 04/25/24 05/24/24 Rx release oxycodone 5 mg tablet 5 mg PO Q8H PRN pain #15 tabs 04/25/24 05/06/24 Rx insulin aspart U-100 100 unit/mL 5 unit SC ACHS 05/06/24 05/24/24 History subcutaneous solution (Novolog U-100 Insulin aspart) blood-glucose sensor (FreeStyle #2 ea 05/10/24 05/24/24 Rx Raiza 3 Plus Sensor device) pen needle, diabetic 32 gauge x #200 ea 05/10/24 05/10/24 Rx 5/32" (BD Bozena 2nd Gen Pen Needle) blood-glucose sensor (Dexcom G7 #3 ea 05/27/24 05/27/24 Rx Sensor device) insulin pump cart,automated,BT #10 ea 05/27/24 05/27/24 Rx (Omnipod 5 G6 Pods (Gen 5) subcutaneous cartridge) insulin pump cartridge,automated #1 ea 05/27/24 05/27/24 Rx dose,BT with controller subcutaneous (Omnipod 5 G6 Intro Kit (Gen 5) subcutaneous cartridge with controller) insulin aspart U-100 100 unit/mL 50 unit (0.5 mL) continuous 05/28/24 05/28/24 Rx subcutaneous solution (Novolog subcutaneous infusion DAILY #20 mL U-100 Insulin aspart) Patient History Medical History (Updated 06/07/24 @ 13:00 by Hugo Escobedo MD) Vomiting Acute pancreatitis Epigastric abdominal pain Encounter for pre-operative examination History of prolonged Q-T interval on ECG Pancreatic stones Chronic neck pain Medical marijuana use Post traumatic stress disorder (PTSD) Diabetes IDDM Hgb A1C 12.3 in 08/2023 Surgical History (Updated 05/26/24 @ 00:08 by Kimo Denton) History of tonsillectomy and adenoidectomy History of esophagogastroduodenoscopy (EGD) History of ERCP Family History Other Adopted No family history of adverse response to anesthesia Social History Smoking Status: Current every day smoker Tobacco Type: E-cigarettes / Vaping Second Hand Exposure: Yes (at work); Do You Dip or Chew Tobacco: No; Hx Alcohol Use: No Hx Substance Use: No Preferred Language: Hebrew 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: Effective Cue Worker Required: No Beliefs That Will Affect Care: None marital status: Single Current Living Situation: Family Current Living Situation Comment: family Feels Safe at Home: Yes Gender Identity: Female Assistive Devices: None Physical Exam Mental Examination: Appearance: Unkempt Eye Contact: Maintains Eye Contact Motor Behavior: Unremarkable Speech: Soft and Delayed Mood: Euthymic and Calm Affect: Congruent Thought Process: Intact and Linear Thought Content: Disorganized (paranoid delusion) and Disoriented Hallucinations: None Insight: Poor Judgement: Poor Vital Signs (Past 24 Hours): Last Vital Signs Temp 37.0 C 06/07/24 12:00 Pulse 88 06/07/24 12:00 Resp 20 06/07/24 12:00 BP 114/86 06/07/24 12:00 Pulse Ox 97 06/07/24 12:21 O2 Del Method Room Air 06/07/24 12:00 Results & Data (PSY) Medications Administered Folic Acid (Folic Acid 1 Mg Tab) 1 mg PO QAM [facility] Stop: 07/07/24 08:59 Last Admin: 06/07/24 09:40 Dose: Not Given Documented By: MMG Insulin Human Regular 250 (units/ Sodium Chloride) 250 mls @ 4.1 mls/hr IV .Q24H [facility]; Protocol Stop: 07/07/24 04:29 Last Titration: 06/07/24 12:05 Dose: 0 units/hr, 0 mls/hr Documented By: BS Co-signed By: DIOMEDE Titration: 06/07/24 10:00 Dose: 4.1 units/hr, 4.1 mls/hr Documented By: MMG Co-signed By: MARISOL Titration: 06/07/24 08:48 Dose: 0 units/hr, 0 mls/hr Documented By: MMG Co-signed By: MARISOL Titration: 06/07/24 07:56 Dose: 4.1 units/hr, 4.1 mls/hr Documented By: SAUL Co-signed By: NMS Admin: 06/07/24 06:47 Dose: 5.1 units/hr, 5.1 mls/hr Documented By: [facility] Co-signed By: PAM Thiamine HCl 200 mg/ Sodium (Chloride) 52 mls @ 210 mls/hr IV Q8H [facility] Stop: 06/10/24 08:59 Last Infusion: 06/07/24 09:51 Dose: Infused Documented By: Admin: 06/07/24 09:34 Dose: 210 mls/hr Documented By: MMLisbeth Potassium Chloride/Dextrose/Sod Cl (D5w And 1/2nss + 20meq Kcl) 20 meq in 1,000 mls @ 200 mls/hr IV .Q5H [facility] Stop: 06/08/24 08:59 Last Admin: 06/07/24 09:07 Dose: 200 mls/hr Documented By: SAUL Insulin Aspart (Insulin Aspart Per Unit Charge) 0 units SC ACHS [facility] Stop: 07/07/24 07:29 Last Admin: 06/07/24 10:31 Dose: Not Given Documented By: MMLisbeth Admin: 06/07/24 07:17 Dose: Not Given Documented By: SAUL Pantoprazole Sodium (Pantoprazole 40 Mg Tab) 40 mg PO DAILY [facility] Stop: 07/07/24 08:59 Last Admin: 06/07/24 10:04 Dose: Not Given Documented By: SAUL [place] [address] IN/OBS CONSULT LVL 5,80M Patient Type New History Comprehensive Exam Comprehensive Medical Decision Making Moderate Complexity Diagnoses Delirium due to another medical condition F05 Paranoid delusion F22 Disorganized thought process R41.89 Hyponatremia E87.1 Hypokalemia E87.6 Acute hyperglycemia R73.9 Excessive thirst R63.1 Type 1 diabetes mellitus E10.9 History of mood disorder Z86.59 Cannabis abuse F12.10
[2024-06-07 12:55] LABS: BUN Creatinine Ratio 15.6 (10-20); Calcium 8.1 mg/dl (8.6-10.3); Creatinine Clr Calc Pharmacy 90.8 ml/min; Magnesium 1.7 mg/dl (1.7-2.4)
[2024-06-07] MEDS: DEXTROSE 50% 50 ML SYRINGE IV PRN (14:13)
--- NOTE | 2024-06-07 15:11 | Hospitalist Progress Note ---
Date of Service June 07, 2024 Assessment & Plan (1) Hyperosmolar hyperglycemic state (HHS): Plan: 38-year-old female with past medical history significant for diabetes, allergic rhinitis, moderate persistent asthma, heart murmur, hypertension, GERD, chronic neck pain, history of alcoholism, ADHD, depression, depression, general anxiety disorder, Presents with confusion and found to have hyperglycemia. Patient was in the hospital last month with DKA and multiple electrolyte abnormalities and also flare of chronic pancreatitis. She was in the ICU last admit did okay and was discharged. She is on insulin pump. She reports to the hospital for evaluation of mental health crisis.. For the ER patient was reporting paranoid delusions like someone hacking her phone to control her insulin management. And also sugars were found to be significantly elevated and also sodium was low. And she seemed asked something for anxiety and she was given IV Ativan in the ER. Currently patient is very confused. Could tell her name. Knows that she is in the hospital. Knows the month. But could not answer any other questions. And could not get any history currently from the patient. Hemodynamics are okay. Obeying simple commands. Her sodium is 120. Potassium 3.1. Chloride 71. CO2 36. Glucose 624. Calcium 10.5. LFTs were okay. UA shows +1 ketones. Urine drug screen was positive for marijuana. COVID is negative. HHS DM II on Insulin Pump HbA1c 8.9 Continue insulin drip Monitor and replete electrolytes as needed Continue IV fluids Glycemic pharmacist consulted Monitor blood glucose levels closely Acute metabolic encephalopathy Likely multifactorial: HHS contributing Alcohol use disorder: Monitor for withdrawal Also on medical THC H/O Past paranoia and psychosis DD: Wernicke's encephalopathy --CT Head:No acute intracranial hemorrhage, no evidence of acute territorial infarction or other acute intracranial disease process. Started on IV thiamine Reorient frequently Appreciate psychiatry input Will consider Abilify if psychosis persist Monitor and replete electrolytes as needed Abnormal EKG Patient denies any chest pain ESR, CRP mildly elevated Will check resting echo Alcohol use disorder Counseled to quit alcohol use Monitor for withdrawal Abdominal pain H/O pancreatitis Check lipase levels Clinically no significant tenderness on exam Continue IV fluids Hyponatremia Likely multifactorial in setting of hyperglycemia, alcohol use Monitor sodium levels closely Continue IV fluids Confusion and paranoia H/O Depression /bipolar Management as above H/O Asthma No signs of exacerbation Monitor DVT Px: SCDs for now CODE STATUS Full code Disposition Expected discharge home when stable Admission and Anticipated Discharge Date Admission Date: June 07, 2024 Subjective Patient is seen and examined at bedside Poor historian States having some abdominal pain today Intermittently confused Review of Systems Review of Systems: All systems reviewed & are unremarkable except as noted in Subjective Physical Exam Physical Exam: Physical Exam: Vitals signs as noted above General Appearance:Thin, frail, no apparent distress Head: normocephalic, Atraumatic Eyes: normal inspection, EOMI Neck: supple, Trachea midline Respiratory/Chest: Normal breath sounds, CTA, No accessory muscle use Cardiovascular: S1, S2, No murmur Abdomen/GI:Soft, mild tender, Bowel sounds present Extremities/Musculoskeletal:normal inspection, no edema Neurologic/Psych:AAOX3, grossly no focal neurological deficits, drowsy Skin: normal color, warm Results & Data Results & Data Vital Signs (Past 12 Hours) Vital Signs Temp Pulse Pulse Resp BP BP Pulse Ox 06/07/24 13:26 36.8 C 86 16 118/83 98 06/07/24 12:21 97 06/07/24 12:18 96 06/07/24 12:00 114/86 100 06/07/24 12:00 37.0 C 88 20 114/86 98 06/07/24 11:45 100 06/07/24 11:30 123/84 06/07/24 11:30 123/84 06/07/24 11:09 85 17 06/07/24 11:00 94/64 L 06/07/24 11:00 94/64 L 06/07/24 11:00 94/64 L 06/07/24 11:00 87 15 06/07/24 10:51 90 18 06/07/24 10:45 88 15 06/07/24 10:30 101/69 06/07/24 10:30 101/69 06/07/24 10:30 91 H 18 06/07/24 10:15 84 17 06/07/24 10:00 85 06/07/24 10:00 115/86 06/07/24 10:00 115/86 06/07/24 10:00 115/86 06/07/24 09:54 88 06/07/24 09:38 112/91 06/07/24 09:38 112/91 06/07/24 09:30 114/83 06/07/24 09:30 87 19 06/07/24 09:29 86 22 104/72 97 06/07/24 09:12 90 18 06/07/24 09:03 105 H 06/07/24 09:00 80 18 06/07/24 09:00 104/72 06/07/24 08:51 88 18 06/07/24 08:48 89 19 06/07/24 08:12 134/102 H 06/07/24 08:12 104 H 15 100 06/07/24 07:48 84 17 06/07/24 07:39 126/93 06/07/24 07:39 126/93 06/07/24 07:30 82 20 06/07/24 07:21 88 19 06/07/24 07:13 85 18 121/78 97 06/07/24 07:12 79 16 06/07/24 06:57 80 20 06/07/24 06:12 86 22 06/07/24 06:09 89 28 H 06/07/24 05:24 97 H 17 06/07/24 05:17 121/78 06/07/24 05:09 104 H 17 06/07/24 04:54 93 H 10 L 06/07/24 04:54 86 06/07/24 04:51 85 20 121/78 O2 Del Method 06/07/24 13:26 Room Air 06/07/24 12:21 06/07/24 12:18 06/07/24 12:00 06/07/24 12:00 Room Air 06/07/24 11:45 06/07/24 11:30 06/07/24 11:30 06/07/24 11:09 06/07/24 11:00 06/07/24 11:00 06/07/24 11:00 06/07/24 11:00 06/07/24 10:51 06/07/24 10:45 06/07/24 10:30 06/07/24 10:30 06/07/24 10:30 06/07/24 10:15 06/07/24 10:00 06/07/24 10:00 06/07/24 10:00 06/07/24 10:00 06/07/24 09:54 06/07/24 09:38 06/07/24 09:38 06/07/24 09:30 06/07/24 09:30 06/07/24 09:29 Room Air 06/07/24 09:12 06/07/24 09:03 06/07/24 09:00 06/07/24 09:00 06/07/24 08:51 06/07/24 08:48 06/07/24 08:12 06/07/24 08:12 06/07/24 07:48 06/07/24 07:39 06/07/24 07:39 06/07/24 07:30 06/07/24 07:21 06/07/24 07:13 Room Air 06/07/24 07:12 06/07/24 06:57 06/07/24 06:12 06/07/24 06:09 06/07/24 05:24 06/07/24 05:17 06/07/24 05:09 06/07/24 04:54 06/07/24 04:54 06/07/24 04:51 Room Air Laboratory Results Short CBC 06/07/24 Range/Units 03:21 WBC 9.33 (4.8-10.8) K/ul Hgb 11.2 L (12.0-16.0) g/dl Hct 30.0 L (37.0-47.0) % Plt Count 323 (130-400) K/uL BMP 06/07/24 06/07/24 06/07/24 03:21 08:18 12:15 Sodium 120 L 131 L D 133 L Potassium 3.1 L 2.7 L 3.0 L Chloride 71 L 81 L 90 L Carbon Dioxide 36 H 38 H 36 H BUN 15 13 10 Creatinine 0.89 0.80 0.64 Glucose 624 H* 199 H 176 H Calcium 10.5 H 9.1 8.1 L Liver Function 06/07/24 Range/Units 03:21 Total Bilirubin 0.6 (0.2-1.0) mg/dl AST 13 (13-39) U/L ALT 13 (7-52) U/L Alkaline Phosphatase 80 (34-104) U/L Albumin 4.4 (3.4-5.0) gm/dl Urine 06/07/24 Range/Units 03:10 Urine Color Yellow Urine Appearance Clear (Clear) Urine pH 7.0 (4.5-7.5) Ur Specific [place] 1.031 H (1.000-1.030) Urine Protein 1+ H (Negative) Urine Glucose (UA) 3+ H (Negative)
[2024-06-07 16:16] LABS: BUN Creatinine Ratio 16.1 (10-20); Calcium 8.6 mg/dl (8.6-10.3); Creatinine Clr Calc Pharmacy 103.8 ml/min; Magnesium 1.8 mg/dl (1.7-2.4); Phosphorus 2.5 mg/dl (2.5-4.9); Potassium 3.4 mmol/L (3.5-5.1)
[2024-06-07] MEDS: NSS + 20MEQ KCL 20 MEQ/1,000 ML BAG IV ONE (19:26)
[2024-06-07 21:28] LABS: BUN Creatinine Ratio 15.8 (10-20); Magnesium 1.7 mg/dl (1.7-2.4); Potassium 3.3 mmol/L (3.5-5.1)
[2024-06-07] MEDS: INSULIN ASPART PER UNIT CHARGE SC STA (22:15)
--- NOTE | 2024-06-07 23:47 | Electrocardiogram Report ---
Test Reason : Blood Pressure : */* mmHG Vent. Rate : 75 BPM Atrial Rate : 75 BPM P-R Int : 136 ms QRS Dur : 70 ms QT Int : 410 ms P-R-T Axes : 25 41 -39 degrees QTcB Int : 457 ms Normal sinus rhythm ST elevation, consider early repolarization, pericarditis, or injury Nonspecific ST and T wave abnormality Abnormal ECG When compared with ECG of 24-Apr-2024 08:33, ST elevation now present in Lateral leads Confirmed by Oscar Barraza ([id number]) on 06/07/2024 11:47:32 PM Referred By: REFERRED SELF Confirmed By: Oscar Barraza
[2024-06-08] MEDS ORDERED: INSULIN ASPART PER UNIT CHARGE SC SCH
[2024-06-08] MEDS: KETOROLAC TROMETHAMINE 15 MG/ML VIAL IV ONE ×2 (02:07→21:10)
[2024-06-08 07:36] LABS: BUN Creatinine Ratio 18.5 (10-20); Calcium 7.9 mg/dl (8.6-10.3); Creatinine Clr Calc Pharmacy 107.6 ml/min; Magnesium 1.7 mg/dl (1.7-2.4); Potassium 3.7 mmol/L (3.5-5.1)
[2024-06-08 07:45] LABS: Hematocrit (blood only) 26.6 % (37.0-47.0); Hemoglobin 9.3 g/dl (12.0-16.0); Mean Corpuscular Hemoglobin 30.9 pg (25.0-34.0); Mean Corpuscular Volume 88.4 fL (80.0-100.0); Mean Platelet Volume 10.5 fL (9.4-12.4); Platelet Count 319 K/uL (130-400); RDW Coefficient of Variation 12.4 % (11.5-14.5); Red Blood Count 3.01 M/uL (4.20-5.40); White Blood Count 6.01 K/ul (4.8-10.8)
[2024-06-08] MEDS: ACETAMINOPHEN 325 MG TAB PO PRN (09:11)
[2024-06-08] MEDS: POT PHOSPHATE MONOBASIC W/ SOD TAB PO SCH (09:47)
[2024-06-08] MEDS: LANTUS PER UNIT CHARGE SC SCH (09:48)
[2024-06-08] MEDS: INSULIN ASPART PER UNIT CHARGE SC ONE (09:48)
--- NOTE | 2024-06-08 13:12 | Hospitalist Progress Note ---
Date of Service June 08, 2024 Assessment & Plan (1) Hyperosmolar hyperglycemic state (HHS): Plan: 38-year-old female with past medical history significant for diabetes, allergic rhinitis, moderate persistent asthma, heart murmur, hypertension, GERD, chronic neck pain, history of alcoholism, ADHD, depression, depression, general anxiety disorder, Presents with confusion and found to have hyperglycemia. Patient was in the hospital last month with DKA and multiple electrolyte abnormalities and also flare of chronic pancreatitis. She was in the ICU last admit did okay and was discharged. She is on insulin pump. She reports to the hospital for evaluation of mental health crisis.. For the ER patient was reporting paranoid delusions like someone hacking her phone to control her insulin management. And also sugars were found to be significantly elevated and also sodium was low. And she seemed asked something for anxiety and she was given IV Ativan in the ER. Currently patient is very confused. Could tell her name. Knows that she is in the hospital. Knows the month. But could not answer any other questions. And could not get any history currently from the patient. Hemodynamics are okay. Obeying simple commands. Her sodium is 120. Potassium 3.1. Chloride 71. CO2 36. Glucose 624. Calcium 10.5. LFTs were okay. UA shows +1 ketones. Urine drug screen was positive for marijuana. COVID is negative. DKA--POA Noncompliance DM II on Insulin Pump at home HbA1c 8.9 Continue insulin drip>> transition to SQ Insulin Monitor and replete electrolytes as needed Received IV fluids Glycemic pharmacist consulted Monitor blood glucose levels closely Tolerating regular diet Acute metabolic encephalopathy Likely multifactorial: HHS contributing Alcohol use disorder: Monitor for withdrawal Also on medical THC H/O Past paranoia and psychosis DD: Wernicke's encephalopathy --CT Head:No acute intracranial hemorrhage, no evidence of acute territorial infarction or other acute intracranial disease process. Started on IV thiamine>> transition to p.o. as able Mental status back to baseline Appreciate psychiatry input Abnormal EKG: ST elevation in lateral leads Patient denies any chest pain ESR, CRP mildly elevated ECHO no significant change when compared to prior echo. EF 55 to 60%. Denies any chest pain, dyspnea Alcohol use disorder Counseled to quit alcohol use Monitor for withdrawal Abdominal pain likely due to HHS H/O pancreatitis Lipase 89 Abdominal pain resolved Hyponatremia Likely multifactorial in setting of hyperglycemia, alcohol use Monitor sodium levels closely Received IV fluids Sodium improved to 134 today Confusion and paranoia H/O Depression /bipolar Management as above H/O Asthma No signs of exacerbation Monitor DVT Px: SCDs for now Encouraged to ambulate CODE STATUS Full code Disposition Expected discharge home when stable Admission and Anticipated Discharge Date Admission Date: June 07, 2024 Subjective Patient is seen and examined at bedside States feeling well today No complaints today Eager to get discharged Mental status seem to be back to baseline Denies any chest pain, dyspnea, nausea, vomiting, abdominal pain Review of Systems Review of Systems: All systems reviewed & are unremarkable except as noted in Subjective Physical Exam Physical Exam: Physical Exam: Vitals signs as noted above General Appearance:Thin, frail, no apparent distress Head: normocephalic, Atraumatic Eyes: normal inspection, EOMI Neck: supple, Trachea midline Respiratory/Chest: Normal breath sounds, CTA, No accessory muscle use Cardiovascular: S1, S2, No murmur Abdomen/GI:Soft, mild tender, Bowel sounds present Extremities/Musculoskeletal:normal inspection, no edema Neurologic/Psych:AAOX3, grossly no focal neurological deficits, drowsy Skin: normal color, warm Results & Data Results & Data Vital Signs (Past 12 Hours) Vital Signs Temp Pulse Pulse Resp BP Pulse Ox O2 Del Method 06/08/24 12:03 37.0 C 95 H 18 118/84 100 Room Air 06/08/24 08:50 80 06/08/24 03:22 36.6 C 71 18 112/79 99 Room Air Laboratory Results Short CBC 06/08/24 Range/Units 06:12 WBC 6.01 (4.8-10.8) K/ul Hgb 9.3 L (12.0-16.0) g/dl Hct 26.6 L (37.0-47.0) % Plt Count 319 (130-400) K/uL BMP 06/07/24 06/07/24 06/08/24 15:43 20:08 06:12 Sodium 131 L 128 L 134 L Potassium 3.4 L 3.3 L 3.7 Chloride 90 L 92 L 100 Carbon Dioxide 35 H 32 28 BUN 9 9 10 Creatinine 0.56 L 0.57 L 0.54 L Glucose 131 H 304 H* 235 H Calcium 8.6 8.0 L 7.9 L
--- NOTE | 2024-06-08 13:14 | Pharmacy Report ---
Pharmacy Glycemic Short Note 2 - Date of Service June 08, 2024 - Glycemic Short BSG Results (Last 24 hours): 06/07/24 06/07/24 06/07/24 13:43 14:27 15:43 Glucose 131 H POC Glucose 75 203 H 06/07/24 06/07/24 06/07/24 16:00 20:08 20:34 Glucose 304 H* POC Glucose 138 H 277 H 06/07/24 06/08/24 06/08/24 23:59 00:04 00:23 Glucose POC Glucose 45 L* 46 L* 134 H 06/08/24 06/08/24 06/08/24 00:57 03:49 06:12 Glucose 235 H POC Glucose 112 H 164 H 06/08/24 06/08/24 06/08/24 09:34 09:35 11:15 Glucose POC Glucose 358 H* 357 H* 348 H* OUTPATIENT ANTIDIABETIC REGIMEN: * Novolog insulin pump * Endo notes 05/24/24 - Lantus 15 units once daily, Novolog 7 units TIDM, CF 40, CR 12 ASSESSMENT: 06/08: * BSGs erratic since transitioned off drip: [phone]/dL. Received 15 units of SQ basal and 8 units of bolus insulin yesterday. * Diet ordered, IVF discontinued. * Patient refusing insulin/BSG checks this AM due to fear of hypoglycemia (although eventually agreeable to insulin after hospitalist discussion with her). Reports the max dose of Lantus that she will accept is 15 units. * Will continue insulin with conservative dosing for now, home parameters. Lantus 15 units qAM and Novolog 40/12. BSG goal adjusted to a higher target. 06/07: * 38 year old admitted with hyperglycemia, [facility] - started on insulin infusion per protocol. BSGs trending down this AM, transitioned over fluids per HHS protocol. Discussed with provider K - 2.7 this morning, current replacing K with IV K riders, provider okay for insulin drip to continue. AG slightly elevated, but trending down, provider okay to start basal insulin for now. Patient previously known to glycemic service from 04/19/24 admission. Will give home dose of basal insulin for now with overlap with insulin drip 4-6 hours. Likely insulin drip could be d/c later this afternoon. Recheck BMP around 1200 today, will ensure labs stable before d/c insulin drip PLAN FOR INPATIENT GLYCEMIC CONTROL: * Basal insulin * Lantus 15 units SQ daily * Bolus insulin * Novolog ACHS SQ, CF: 40mg/dl/unit, CR: 12gm/unit
[2024-06-08] MEDS ORDERED: CHLORASEPTIC (PHENOL) 1.4% SOLN 180 ML BTL PO PRN (18:21)
[2024-06-08] MEDS: ONDANSETRON INJ 2 MG/ML 2 ML VIAL IV STA (23:44)
[2024-06-09 02:56] VITALS: O2SAT 100
[2024-06-09 06:09] LABS: Hemoglobin 8.7 g/dl (12.0-16.0); Mean Corpuscular Hemoglobin 31.4 pg (25.0-34.0); Mean Corpuscular Hgb Conc 34.8 g/dL (32.0-36.0); Mean Corpuscular Volume 90.3 fL (80.0-100.0); Mean Platelet Volume 10.2 fL (9.4-12.4); Platelet Count 384 K/uL (130-400); RDW Coefficient of Variation 12.4 % (11.5-14.5); RDW Standard Deviation 41.5 fL (36.4-46.3); Red Blood Count 2.77 M/uL (4.20-5.40); White Blood Count 4.94 K/ul (4.8-10.8)
[2024-06-09 06:22] LABS: BUN Creatinine Ratio 23.6 (10-20); Creatinine Clr Calc Pharmacy 80.7 ml/min; Magnesium 1.5 mg/dl (1.7-2.4); Potassium 3.4 mmol/L (3.5-5.1)
--- NOTE | 2024-06-09 08:06 | Hospitalist Progress Note ---
Date of Service June 09, 2024 Assessment & Plan (1) Hyperosmolar hyperglycemic state (HHS): Plan: 38-year-old female with past medical history significant for diabetes, allergic rhinitis, moderate persistent asthma, heart murmur, hypertension, GERD, chronic neck pain, history of alcoholism, ADHD, depression, depression, general anxiety disorder, Presents with confusion and found to have hyperglycemia. Patient was in the hospital last month with DKA and multiple electrolyte abnormalities and also flare of chronic pancreatitis. She was in the ICU last admit did okay and was discharged. She is on insulin pump. She reports to the hospital for evaluation of mental health crisis.. For the ER patient was reporting paranoid delusions like someone hacking her phone to control her insulin management. And also sugars were found to be significantly elevated and also sodium was low. And she seemed asked something for anxiety and she was given IV Ativan in the ER. Currently patient is very confused. Could tell her name. Knows that she is in the hospital. Knows the month. But could not answer any other questions. And could not get any history currently from the patient. Hemodynamics are okay. Obeying simple commands. Her sodium is 120. Potassium 3.1. Chloride 71. CO2 36. Glucose 624. Calcium 10.5. LFTs were okay. UA shows +1 ketones. Urine drug screen was positive for marijuana. COVID is negative. DKA--POA Noncompliance DM II on Insulin Pump at home HbA1c 8.9 Continue insulin drip>> transition to SQ Insulin Monitor and replete electrolytes as needed Received IV fluids Glycemic pharmacist consulted Monitor blood glucose levels closely Tolerating regular diet Acute metabolic encephalopathy Likely multifactorial: HHS contributing Alcohol use disorder: Monitor for withdrawal Also on medical THC H/O Past paranoia and psychosis DD: Wernicke's encephalopathy --CT Head:No acute intracranial hemorrhage, no evidence of acute territorial infarction or other acute intracranial disease process. Started on IV thiamine>> transition to p.o. as able Mental status back to baseline Appreciate psychiatry input Abnormal EKG: ST elevation in lateral leads Patient denies any chest pain ESR, CRP mildly elevated ECHO no significant change when compared to prior echo. EF 55 to 60%. Denies any chest pain, dyspnea Alcohol use disorder Counseled to quit alcohol use Monitor for withdrawal Abdominal pain likely due to HHS H/O pancreatitis Lipase 89 Abdominal pain resolved Hyponatremia Likely multifactorial in setting of hyperglycemia, alcohol use Monitor sodium levels closely Received IV fluids Sodium improved to 134 today Confusion and paranoia H/O Depression /bipolar Management as above H/O Asthma No signs of exacerbation Monitor DVT Px: SCDs for now Encouraged to ambulate CODE STATUS Full code Disposition Expected discharge home when stable Admission and Anticipated Discharge Date Admission Date: June 07, 2024 Results & Data Results & Data Vital Signs (Past 12 Hours) Vital Signs Temp Pulse Pulse Resp BP Pulse Ox O2 Del Method 06/09/24 06:57 36.8 C 90 17 113/78 100 Room Air 06/09/24 06:41 82 06/09/24 02:55 36.9 C 78 18 114/77 100 Room Air 06/09/24 00:00 81 06/08/24 22:42 37.0 C 90 18 106/71 99 Room Air 06/08/24 21:34 Room Air
[2024-06-09] MEDS: MAGNESIUM SULFATE / D5W 1 GM/100 ML BAG IV SCH (09:14)
[2024-06-09] MEDS: KETOROLAC TROMETHAMINE 15 MG/ML VIAL IV PRN (09:14)
[2024-06-09] MEDS: POTASSIUM CHLORIDE CRTAB 20 MEQ TABCR PO SCH (09:19)
[2024-06-09 10:57] VITALS: RESP 16; TEMP 98.4
--- NOTE | 2024-06-09 13:47 | Pharmacy Report ---
Pharmacy Glycemic Short Note 2 - Date of Service June 09, 2024 - Glycemic Short BSG Results (Last 24 hours): 06/08/24 06/08/24 06/09/24 16:17 19:49 05:42 Glucose 248 H POC Glucose 194 H 144 H 06/09/24 06/09/24 06:56 11:06 Glucose POC Glucose 228 H 123 H OUTPATIENT ANTIDIABETIC REGIMEN: * Novolog insulin pump * Endo notes 05/24/24 - Lantus 15 units once daily, Novolog 7 units TIDM, CF 40, CR 12 ASSESSMENT: 06/09: * Yeterefwork received total of 35 units yesterday (15 units basal + 20 units bolus) - majority of BSGs were above goal but trending in the right direction. * Fasting BSG of 228 mg/dL this morning. Will change Lantus order to dose per scale to allow for slightly higher dose of 17 units to be given for BSG of 180 mg/dL or more,*if patient accepts*. * Slightly tighten correction factor - patient tolerated correction factor of 30 during past admission. * Continue conservative changes based on patients fear of hypoglycemia. 06/08: * BSGs erratic since transitioned off drip: [id number]/dL. Received 15 units of SQ basal and 8 units of bolus insulin yesterday. * Diet ordered, IVF discontinued. * Patient refusing insulin/BSG checks this AM due to fear of hypoglycemia (although eventually agreeable to insulin after hospitalist discussion with her). Reports the max dose of Lantus that she will accept is 15 units. * Will continue insulin with conservative dosing for now, home parameters. Lantus 15 units qAM and Novolog 40/12. BSG goal adjusted to a higher target. 06/07: * 38 year old admitted with hyperglycemia, [facility] - started on insulin infusion per protocol. BSGs trending down this AM, transitioned over fluids per HHS protocol. Discussed with provider K - 2.7 this morning, current replacing K with IV K riders, provider okay for insulin drip to continue. AG slightly elevated, but trending down, provider okay to start basal insulin for now. Patient previously known to glycemic service from 04/19/24 admission. Will give home dose of basal insulin for now with overlap with insulin drip 4-6 hours. Likely insulin drip could be d/c later this afternoon. Recheck BMP around 1200 today, will ensure labs stable before d/c insulin drip PLAN FOR INPATIENT GLYCEMIC CONTROL: * Basal insulin * Lantus 15-17 units SQ daily (15 units for BSG < 180 mg/dL) * Bolus insulin * Novolog ACHS SQ, CF: 35 mg/dl/unit, CR: 12 gm/unit
--- NOTE | 2024-06-09 14:03 | Discharge Summary ---
Discharge Summary Date of Service June 09, 2024 Principal Dx & Hospital Course #1 = Principal Diagnosis (1) Hyperosmolar hyperglycemic state (HHS): Plan Ms. Cerna is a 38-year-old female with past medical history significant for diabetes, allergic rhinitis, moderate persistent asthma, heart murmur, hypertension, GERD, chronic neck pain, history of alcoholism, ADHD, depression, depression, general anxiety disorder, Presents with confusion and found to have hyperglycemia. Patient was in the hospital last month with DKA and multiple electrolyte abnormalities and also flare of chronic pancreatitis. She has not been transitioned to insulin pump as of yet, but hopes to be soon. She was seen by senior health educator who recommends continuing home regimen and following up with [facility] endocrinology. On day of discharge, patient eating well and without acute concerns. Patient eager for discharge given follow up tomorrow with [employer] and plan for insulin pump. #DKA--POA #History of Noncompliance DM II on Insulin Pump at home HbA1c 8.9 Continue insulin drip>> transition to SQ Insulin Monitor and replete electrolytes as needed Patient declined any further need for prescriptions stating she has all her equ ipment at home #Acute metabolic encephalopathy #Hx of mood disorder Likely multifactorial: DKA contributing Alcohol use disorder: Monitor for withdrawal Also on medical THC H/O Past paranoia and psychosis DD: Wernicke's encephalopathy --CT Head:No acute intracranial hemorrhage, no evidence of acute territorial infarction or other acute intracranial disease process. Patient at baseline, No signs of paranoia, no need for antipsychotic Close follow up as OP #Abnormal EKG abnormalities likely iso electrolyte disturbance, resolved ESR, CRP mildly elevated ECHO no significant change when compared to prior echo. EF 55 to 60%. Denies any chest pain, dyspnea #Alcohol use disorder Counseled to quit alcohol use Monitor for withdrawal #Abdominal pain likely due to DKA #Chronic pancreatitis Lipase 89 Abdominal pain resolved #Hyponatremia resolved Likely multifactorial in setting of hyperglycemia, alcohol use improving with glucose control and PO intake #Asthma No signs of exacerbation Monitor Notes For Next Care Provider Consider repeat labs in 1 week (BMP, Mag) to monitor electrolytes Recommend op psychiatry referral given questionable hx of mood disorder Medication Changes From Visit none Admission HPI Per Admitting Provider 38-year-old female with past medical history significant for diabetes, allergic rhinitis, moderate persistent asthma, heart murmur, hypertension, GERD, chronic neck pain, history of alcoholism, ADHD, depression, depression, general anxiety disorder, Presents with confusion and found to have hyperglycemia. Patient was in the hospital last month with DKA and multiple electrolyte abnormalities and also flare of chronic pancreatitis. She was in the ICU last admit did okay and was discharged. She is on insulin pump. She reports to the hospital for evaluation of mental health crisis.. For the ER patient was reporting paranoid delusions like someone hacking her phone to control her insulin management. And also sugars were found to be significantly elevated and also sodium was low. And she seemed asked something for anxiety and she was given IV Ativan in the ER. Currently patient is very confused. Could tell her name. Knows that she is in the hospital. Knows the month. But could not answer any other questions. And could not get any history currently from the patient. Hemodynamics are okay. Obeying simple commands. Her sodium is 120. Potassium 3.1. Chloride 71. CO2 36. Glucose 624. Calcium 10.5. LFTs were okay. UA shows +1 ketones. Urine drug screen was positive for marijuana. COVID is negative. Past medical history. As mentioned above. Past surgical history. . Dental surgery. EGD with endoscopic ultrasound. ERCP. Social history. Quit smoking 2021. Smoked 4 to 5 cigarettes a day. As per epic did not drink alcohol since May 2022 but patient states significant she drank wine yesterday. Uses marijuana. Admission Exam Per Admitting Provider General- confused Head- atraumatic Eyes- PERRL. ENT- oropharynx clear Neck- supple, no JVD. Lungs- clear to auscultation no wheezing or crackles Heart- regular rhythm; no murmur, no gallop. Abdomen- normal bowel sounds, soft, nontender, no distension Extremities- no pretibial edema, no erythema seen Neuro- alert, oriented x 2; confused.PERRL, no facial palsy; no dysarthria; moves extremities Discharge Exam Constitutional WD/WN, vitals as above Respiratory normal respiratory effort, lungs clear to auscultation Cardiovascular RRR, no murmur, no edema Updated Medication List Medication Instructions Recorded Confirmed Type epinephrine 0.3 mg/0.3 mL 0.3 mg IM UD PRN Allergic Reaction 11/18/21 06/09/24 History injection, auto-injector Medical Marijuana 1 dose inhalation HS PRN Sleep 02/08/22 06/09/24 History blood sugar diagnostic #100 ea 04/25/24 05/24/24 Rx blood-glucose meter #1 ea 04/25/24 05/24/24 Rx diabetic supplies, miscellan. #25 ea 04/25/24 05/06/24 Rx insulin glargine 100 unit/mL 15 unit (0.15 mL) SC QAM #0 mL 04/25/24 06/09/24 Rx subcutaneous solution (Lantus U-100 Insulin) lancets #200 ea 04/25/24 05/24/24 Rx magnesium chloride 64 mg 64 mg PO BID #60 tabs 04/25/24 06/09/24 Rx (magnesium chloride) tablet,delayed release omeprazole 40 mg capsule,delayed 40 mg PO DAILY #30 caps 04/25/24 06/09/24 Rx release insulin aspart U-100 100 unit/mL 5 unit SC ACHS 05/06/24 06/09/24 History subcutaneous solution (Novolog U-100 Insulin aspart) blood-glucose sensor (FreeStyle #2 ea 05/10/24 05/24/24 Rx Raiza 3 Plus Sensor device) pen needle, diabetic 32 gauge x #200 ea 05/10/24 05/10/24 Rx 5/32" (BD Bozena 2nd Gen Pen Needle) blood-glucose sensor (Dexcom G7 #3 ea 05/27/24 05/27/24 Rx Sensor device) insulin pump cart,automated,BT #10 ea 05/27/24 05/27/24 Rx (Omnipod 5 G6 Pods (Gen 5) subcutaneous cartridge) insulin pump cartridge,automated #1 ea 05/27/24 05/27/24 Rx dose,BT with controller subcutaneous (Omnipod 5 G6 Intro Kit (Gen 5) subcutaneous cartridge with controller) insulin aspart U-100 100 unit/mL 50 unit (0.5 mL) continuous 05/28/24 06/09/24 Rx subcutaneous solution (Novolog subcutaneous infusion DAILY #20 mL U-100 Insulin aspart) meloxicam 15 mg tablet 15 mg PO DAILY PRN pain (scale 06/09/24 06/09/24 Rx score 4-6) #14 tabs potassium chloride 10 mEq 10 meq BID 10/27/24 10/27/24 History capsule,extended release Hospital Stay Data Consultations 06/07/24 04:24 ED Decision to Admit Stat 06/07/24 08:36 Consult Psychiatry Routine Diagnostic Imagining Performed 06/07/24 05:45 CT head/brain wo con Urgent Pending Results Patient Have Any Pending Studies at Discharge: No Discharge Instructions Given to Patient (Per Discharging Provider) You were admitted for diabetic ketoacidosis. You were treated with IV insulin and transitioned to glargine in the am. Please continue your magnesium and potassium supplements. Please continue your home insulin regimen until transitioned to insulin pump. Please keep your appointments with the [employer] and senior health educator. Total Time Total Time Spent Total Time Spent (In Minutes): 35
[2024-06-09 14:54] VITALS: BP 116/74; PULSE 79
[2024-06-10] MEDS ORDERED: LANTUS PER UNIT CHARGE SC SCH (09:00)
--- NOTE | 2024-06-10 12:44 | Electrocardiogram Report ---
Test Reason : Blood Pressure : */* mmHG Vent. Rate : 88 BPM Atrial Rate : 88 BPM P-R Int : 140 ms QRS Dur : 76 ms QT Int : 366 ms P-R-T Axes : 74 68 31 degrees QTcB Int : 442 ms Normal sinus rhythm Normal ECG When compared with ECG of 07-Jun-2024 06:35, Nonspecific T wave abnormality has replaced inverted T waves in Inferior leads Confirmed by Phil Robles [id number] on 06/10/2024 12:44:27 PM Referred By: REFERRED SELF Confirmed By: Phil Robles
[2024-06-10 13:31] LABS: Marijuana Quant, GCMS Urine 2398 ng/mL (<5)
== END 2024-06-09 15:30 | disposition home or self-care (01) | DRG 637 ==
LOC: ED 02:51 → EDINP 05:39 → SUATTDRO 05:39 → EDINP 08:37 → 2S 13:22

== ENCOUNTER 2024-10-09 08:20 | Inpatient (IN) ==
--- NOTE | 2024-10-09 08:48 | XRay Report ---
XR chest 1V portable CLINICAL HISTORY: weakness COMPARISON STUDY: 04/24/2024 FINDINGS: Heart size and pulmonary vasculature are normal. No effusion, consolidation, or pneumothora x. IMPRESSION: No acute findings. ACT 112: Negative or not required by law. Electronically signed by: Bandar Gamez M.D. 10/09/2024 8:46 AM
[2024-10-09] MEDS: SODIUM CHLORIDE 0.9% 1,000 ML IV ONE ×2 (09:15→10:54)
[2024-10-09 09:23] LABS: Base Excess VBG -0.5 mEq/L; HCO3 VBG 24 mmol/L; Oxygen Saturation VBG 88.9 %; PCO2 VBG 39 mmHg (38-50); PO2 VBG 60 mmHg
[2024-10-09 09:26] LABS: iSTAT Blood Urea Nitrogen 18 mg/dl (7-18); iSTAT Carbon Dioxide 23 mmol/L (24-31); iSTAT Chloride 89 mmol/L (101-112); iSTAT Creatinine 0.7 mg/dl (0.6-1.3); iSTAT Glucose > 700 mg/dl (70-99); iSTAT Hematocrit 41 % (37-47); iSTAT Hemoglobin 13.9 g/dl (12.0-16.0); iSTAT Ionized Calcium 1.19 mmol/l (1.12-1.32); iSTAT Potassium 4.8 mmol/L (3.3-5.0); iSTAT Sodium 125 mmol/L (135-144)
[2024-10-09] MEDS ORDERED: PHARMACY GLYCEMIC MGMT CONSULT PRN (09:30)
[2024-10-09] MEDS ORDERED: INSULIN REGULAR 250 UNITS in SODIUM CHLORIDE 0.9% 247.5 ML IV SCH (09:30)
[2024-10-09] MEDS ORDERED: HHS GOAL RANGE 250-350 mg/dl ONE (09:33)
[2024-10-09] MEDS: FAMOTIDINE 20MG IV PUSH 20 MG/5 ML SYR IV STA (09:35)
[2024-10-09 09:36] LABS: Basophils # (auto) 0.02 K/uL (0.00-0.20); Basophils % (auto) 0.3 %; Eosinophils # (auto) 0.04 K/uL (0.00-0.50); Eosinophils % (auto) 0.5 %; Hematocrit (blood only) 35.9 % (37.0-47.0); Hemoglobin 12.9 g/dl (12.0-16.0); Immature Granulocytes # (auto) 0.05 K/uL (0.01-0.20); Immature Granulocytes % (auto) 0.7 %; Lymphocytes % (auto) 12.3 %; Mean Corpuscular Hemoglobin 31.3 pg (25.0-34.0); Mean Corpuscular Hgb Conc 35.9 g/dL (32.0-36.0); Mean Corpuscular Volume 87.1 fL (80.0-100.0); Mean Platelet Volume 10.3 fL (9.4-12.4); Monocytes # (auto) 0.86 K/uL (0.11-0.59); Monocytes % (auto) 11.7 %; Neutrophils # (auto) 5.46 K/uL (1.40-6.50); Neutrophils % (auto) 74.5 %; Platelet Count 448 K/uL (130-400); RDW Coefficient of Variation 11.2 % (11.5-14.5); RDW Standard Deviation 35.9 fL (36.4-46.3); Red Blood Count 4.12 M/uL (4.20-5.40); White Blood Count 7.33 K/ul (4.8-10.8)
[2024-10-09] MEDS: HYDROmorphone INJ 0.5 MG/0.5 ML SYR IV STA ×2 (09:36→11:35)
[2024-10-09] MEDS ORDERED: STAT IV Infusion **Titration per Protocol STA (09:37)
[2024-10-09] MEDS: ONDANSETRON INJ 2 MG/ML 2 ML VIAL IV STA (09:37)
[2024-10-09] MEDS: OPTIRAY 320 100ml IV ONE ×2 (10:07→11:51)
[2024-10-09 10:12] LABS: Albumin Globulin Ratio 0.9 (0.9-2); Albumin Level 3.9 gm/dl (3.4-5.0); BUN Creatinine Ratio 22.2 (10-20); Bilirubin,Total 0.4 mg/dl (0.2-1.0); Calcium 9.4 mg/dl (8.6-10.3); Creatinine Clr Calc Pharmacy 71.1 ml/min; Globulin 4.4 gm/dl (2.5-4.0); Potassium 4.8 mmol/L (3.5-5.1); Thyroid Stimulating Hormone 0.841 uIu/ml (0.300-4.500); Total Protein 8.3 gm/dl (6.0-8.3); Troponin I High Sensitivity 3.5 pg/ml (0-14)
[2024-10-09 10:29] LABS: Adenovirus PCR Not Detected (NotDetected); Bordetella parapertussis PCR Not Detected (NotDetected); Bordetella pertussis PCR Not Detected (NotDetected); Chlamydia pneumoniae PCR Not Detected (NotDetected); Coronavirus 229E PCR Not Detected (NotDetected); Coronavirus CoV-2 (COVID19)PCR Not Detected (NotDetected); Coronavirus HKU1 PCR Not Detected (NotDetected); Coronavirus NL63 PCR Not Detected (NotDetected); Coronavirus OC43PCR Not Detected (NotDetected); Human Metapneumovirus PCR Not Detected (NotDetected); Influenza A PCR Not Detected (NotDetected); Influenza B PCR Not Detected (NotDetected); Mycoplasma pneumoniae PCR Not Detected (NotDetected); Parainfluenza Virus 1 PCR Not Detected (NotDetected); Parainfluenza Virus 2 PCR Not Detected (NotDetected); Parainfluenza Virus 3 PCR Not Detected (NotDetected); Parainfluenza Virus 4 PCR Not Detected (NotDetected); Respiratory Syncytial VirusPCR Not Detected (NotDetected); Rhinovirus/Enterovirus PCR Not Detected (NotDetected)
--- NOTE | 2024-10-09 10:39 | Emergency Department Note ---
Impression & Plan Pancreatitis, Sialadenitis, Acute hyperglycemia ED Provider Note Provider: Nirmal Andino MD CHIEF COMPLAINT: Referred, abdominal pain, nausea and vomiting, high blood sugar HISTORY OF PRESENT ILLNESS: Patient is a 39-year-old female past medical history significant for diabetes, HHS/DKA, pancreatitis, bipolar disorder, GERD, and gout among others presenting here today reporting she has had issues eating any solid foods over the past approximately 4 weeks. Saw her primary doctor yesterday. Has been having mid abdominal discomfort to the back. Nausea and vomiting. Some heartburn. Has been trying to take some fluids. Also noted today that her right cheek seems a bit swollen and painful. Had blood work yesterday and called today with concerns for significant limited blood sugar. States it feels somewhat similar to prior episodes where her blood sugars been elevated. Has followed with GI at [facility] and does have a gastric stent. PAST MEDICAL HISTORY: As noted above MEDICATIONS: Reviewed home medications SOCIAL HISTORY: Non-smoker PHYSICAL EXAM: GENERAL: alert and oriented fatigued in appearance Head: Atraumatic with some mild swelling appreciable of the right cheek without crepitus EYES: No injection, discharge or icterus. EOMI. NECK: Trachea midline. Good range of motion ENT: Mucous membranes pink and moist. Pharynx without erythema or exudate. No obvious parotid stone or duct inflammation noted of the right cheek. No tongue elevation. LUNGS: Airway patent. No retractions. Breath sounds clear with good air entry bilaterally. HEART: Regular rate and rhythm. No chest wall tenderness ABDOMEN: Soft mid epigastric abdominal discomfort. No significant lower abdominal tenderness. SKIN: Acyanotic, warm, dry, without rashes EXTREMITIES: Without swelling, tenderness or deformity NEUROLOGICAL: No focal deficits. No aphasia. No facial droop or slurred speech. EK beats per minute normal sinus rhythm. No PVC or PAC. No acute ST segment elevation or depression with QTc of 410. CONTINUOUS CARDIAC MONITORING: was ordered and showed a heart rate of 80s-100s bpm in normal sinus rhythm to sinus tachycardia Patient's laboratory studies and imaging reviewed. Differential includes Appendicitis, ovarian cyst, ovarian torsion, ectopic , infections, diverticulitis, UTI, obstruction, mesenteric ischemia, aortic pathology, inflammatory bowel disease, renal colic, PUD, pancreatitis, biliary pathology, hernia, volvulus, constipation, as well as other pathologies. IMPRESSION/MEDICAL DECISION MAKING: Patient was abdominals comfort. Outpatient blood work yesterday reviewed. Blood sugar [id number] undetectably high. Some pseudohyponatremia noted on blood work. Lactate normal. Does have a lipase elevation of formal blood work concerning for pancreatitis flare again. CT abdomen pelvis per report is consistent with this some pancreatic head inflammation. No large abscess visualized per CT report. Negative respiratory viral panel. No leukocytosis or fevers and lower suspicion for sepsis. Does have some swelling of the right parotid gland. Could be from the recurrent vomiting. Do not see obvious ductal stone at this time but question sialoadenitis. Doubt abscess given the short onset. Will give a dose of antibiotics/Unasyn however case there is an infected component. Given her significant pain and nausea with only mild improvement with Dilaudid and Zofran and Pepcid here, she is agreeable to staying for further evaluation. Does not appear to be in DKA but insulin drip started given her severe hyperglycemia. Discussed with her pharmacist here. Discussed with the hospitalist team who are in agreement with this plan. 2 L of IV hydration ordered. DIAGNOSIS: Hyperglycemia due to type 2 diabetes, pancreatitis, right parotid swelling DISPOSITION: Hospitalist will evaluate Patient was agreeable with this plan. Critical Care I have personally spent 33 minutes of critical care time in the direct management of this patient. This includes bedside care, interpretation of diagnostic studies, and testing, discussion with consultants, patient, and other required patient management activities. These 33 minutes is in excess of all separately billable procedures. Past Med/Surg History Problem List Acute hyperglycemia (Acute) Sialadenitis (Acute) Metabolic acidosis Parotitis Pancreatitis (Acute) Hyperlipidemia Diabetes mellitus type 1.5, managed as type 1 Cannabis abuse History of mood disorder Hyperosmolar hyperglycemic state (HHS) Hypokalemia (Acute) DKA (diabetic ketoacidosis) (Acute) Abdominal pain (Acute) Dyspnea (Acute) Hypomagnesemia Hyponatremia History of tonsillectomy History of adenoidectomy Presence of pancreatic duct stent (Acute) Chronic pancreatitis Acute on chronic pancreatitis 08/30/23- admitted to [facility] Bipolar disorder Alcohol use disorder quit 1.5 years ago ANGE (generalized anxiety disorder) Asthma has not used inhaler for a long time Cardiac murmur no significant valvular disease on 08/20/2019 echo GERD (gastroesophageal reflux disease) Scoliosis MINOR History of section x 2 Medical History Delirium due to another medical condition Excessive thirst Disorganized thought process Paranoid delusion Hypoglycemia Acute hyperglycemia Vomiting Acute pancreatitis Epigastric abdominal pain Encounter for pre-operative examination History of prolonged Q-T interval on ECG Pancreatic stones Chronic neck pain Medical marijuana use Post traumatic stress disorder (PTSD) Diabetes IDDM Hgb A1C 12.3 in 08/2023 Surgical History History of tonsillectomy and adenoidectomy History of esophagogastroduodenoscopy (EGD) History of ERCP Family History Other Adopted No family history of adverse response to anesthesia Social History Smoking Status: Never smoker Tobacco Type: E-cigarettes / Vaping Second Hand Exposure: Yes (at work); Do You Dip or Chew Tobacco: No; Hx Alcohol Use: No Hx Substance Use: No Preferred Language: Hebrew 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: Effective Product Safety Compliance Leader Required: No Beliefs That Will Affect Care: None marital status: Single Current Living Situation: Family Current Living Situation Comment: family/roomate Feels Safe at Home: Yes Gender Identity: Female Assistive Devices: None and Other Allergies Allergies Allergy/AdvReac Type Severity Reaction Status Date / Time bee venom protein (honey bee) Allergy Severe ANAPHYLAXIS Verified 07/19/24 10:16 Home Meds Home Medications Medication Instructions Recorded Confirmed epinephrine 0.3 mg/0.3 mL 0.3 mg IM UD PRN Allergic Reaction 11/18/21 10/09/24 injection, auto-injector Medical Marijuana 1 dose inhalation HS PRN Sleep 02/08/22 10/09/24 potassium chloride 10 mEq 10 meq BID 06/09/24 10/09/24 capsule,extended release sumatriptan succinate 50 mg tablet 50 mg PO UD PRN Migraine Headache 07/19/24 10/09/24 folic acid 1 mg tablet 1 mg PO DAILY 10/09/24 10/09/24 hydroxyzine HCl 25 mg tablet 25 mg PO Q6H PRN Itching 10/09/24 10/09/24 insulin glargine 100 unit/mL 14 unit SC QAM 10/09/24 10/09/24 subcutaneous solution (Lantus U-100 Insulin) ketorolac 10 mg tablet 10 mg PO Q8H PRN Pain 10/09/24 10/09/24 omeprazole 40 mg capsule,delayed 40 mg PO UD 10/09/24 10/09/24 release Previous Rx's Medication Instructions Recorded blood sugar diagnostic #100 ea 04/25/24 blood-glucose meter #1 ea 04/25/24 lancets #200 ea 04/25/24 magnesium chloride 64 mg 64 mg PO BID #60 tabs 04/25/24 (magnesium chloride) tablet,delayed release pen needle, diabetic 32 gauge x #200 ea 05/10/24" (BD Bozena 2nd Gen Pen Needle) blood-glucose sensor (WindSim G7 #3 ea 05/27/24 Sensor device) insulin pump cart,automated,BT #10 ea 05/27/24 (Omnipod 5 G6 Pods (Gen 5) subcutaneous cartridge) insulin pump cartridge,automated #1 ea 05/27/24 dose,BT with controller subcutaneous (Omnipod 5 G6 Intro Kit (Gen 5) subcutaneous cartridge with controller) insulin aspart U-100 100 unit/mL 50 unit (0.5 mL) subcut DAILY 30 07/19/24 (3 mL) subcutaneous pen (Novolog days #15 mL FlexPen U-100 Insulin aspart) Results & Data (ED) Vital Signs Vital Signs - 24 hr 10/09/24 08:21 10/09/24 08:42 10/09/24 08:43 Temperature 36.6 C Temperature Source Temporal Artery Scan Pulse Rate 104 H 97 H 105 H Pulse Rate from SpO2 Sensor Respiratory Rate 18 15 Blood Pressure 122/91 Blood Pressure Mean 101 Pulse Oximetry 99 Sepsis Recent Fever Within 48 Hours No Sepsis New/Unexplained Change in Mental Status N/A Sepsis Action Taken by Nursing No Action Required 10/09/24 09:06 10/09/24 09:15 10/09/24 09:21 Temperature Temperature Source Pulse Rate 97 H 126 H 102 H Pulse Rate from SpO2 Sensor 126 H 102 H Respiratory Rate 19 15 25 H Blood Pressure Blood Pressure Mean Pulse Oximetry 99 97 Sepsis Recent Fever Within 48 Hours Sepsis New/Unexplained Change in Mental Status Sepsis Action Taken by Nursing 10/09/24 09:30 10/09/24 09:45 10/09/24 10:09 Temperature Temperature Source Pulse Rate 94 H 93 H 90 Pulse Rate from SpO2 Sensor 95 H 92 H 91 H Respiratory Rate 16 12 15 Blood Pressure Blood Pressure Mean Pulse Oximetry 97 96 98 Sepsis Recent Fever Within 48 Hours Sepsis New/Unexplained Change in Mental Status Sepsis Action Taken by Nursing 10/09/24 10:15 10/09/24 10:42 10/09/24 10:43 Temperature Temperature Source Pulse Rate 91 H 89 Pulse Rate from SpO2 Sensor 90 90 Respiratory Rate 18 14 Blood Pressure 116/77 Blood Pressure Mean 96 Pulse Oximetry 97 97 Sepsis Recent Fever Within 48 Hours Sepsis New/Unexplained Change in Mental Status Sepsis Action Taken by Nursing 10/09/24 10:43 10/09/24 10:51 Temperature Temperature Source Pulse Rate 99 H Pulse Rate from SpO2 Sensor Respiratory Rate 13 Blood Pressure 116/77 Blood Pressure Mean 96 Pulse Oximetry Sepsis Recent Fever Within 48 Hours Sepsis New/Unexplained Change in Mental Status Sepsis Action Taken by Nursing Laboratory Data 10/09/24 09:05 10/09/24 11:15 Lab Results 10/09/24 10/09/24 10/09/24 Range/Units 08:29 09:05 09:14 WBC 7.33 (4.8-10.8) K/ul RBC 4.12 L (4.20-5.40) M/uL Hgb 12.9 (12.0-16.0) g/dl POC Hgb 13.9 (12.0-16.0) g/dl Hct 35.9 L (37.0-47.0) % POC Hct 41 (37-47) % MCV 87.1 (80.0-100.0) fL MCH 31.3 (25.0-34.0) pg MCHC 35.9 (32.0-36.0) g/dL RDW Std Deviation 35.9 L (36.4-46.3) fL RDW Coeff of Arnold 11.2 L (11.5-14.5) % Plt Count 448 H (130-400) K/uL MPV 10.3 (9.4-12.4) fL Immature Gran % (Auto) 0.7 % Neut % (Auto) 74.5 % Lymph % (Auto) 12.3 % [place] % (Auto) 11.7 % Eos % (Auto) 0.5 % Baso % (Auto) 0.3 % Neut # (Auto) 5.46 (1.40-6.50) K/uL Lymph # (Auto) 0.90 L (1.20-3.40) K/uL [place] # (Auto) 0.86 H (0.11-0.59) K/uL Eos # (Auto) 0.04 (0.00-0.50) K/uL Baso # (Auto) 0.02 (0.00-0.20) K/uL Immature Gran # (Auto) 0.05 (0.01-0.20) K/uL VBG pH 7.40 (7.36-7.41) VBG pCO2 39 (38-50) mmHg VBG pO2 60 mmHg VBG HCO3 24 mmol/L VBG O2 Saturation 88.9 % VBG Base Excess -0.5 mEq/L POC Sodium 125 L (135-144) mmol/L Sodium 126 L (136-145) mmol/L POC Potassium 4.8 (3.3-5.0) mmol/L Potassium 4.8 (3.5-5.1) mmol/L POC Chloride 89 L (101-112) mmol/L Chloride 86 L (98-107) mmol/L Carbon Dioxide 25 (21-32) mmol/L POC Total CO2 23 L (24-31) mmol/L Anion Gap 15 H (3-11) POC Anion Gap 19.0 (16-25) mmol/L POC BUN 18 (7-18) mg/dl BUN 18 (6-23) mg/dl Creatinine 0.81 (0.6-1.2) mg/dl POC Creatinine 0.7 (0.6-1.3) mg/dl Est Cr Clr Drug Dosing 71.1 ml/min eGFR 95.23 BUN/Creatinine Ratio 22.2 H (10-20) Glucose 778 H* (70-99(Fasting)) mg/dl POC Glucose > 600 H* (70-99) mg/dl POC Glucose (other) > 700 H* (70-99) mg/dl Lactate 1.2 (0.4-2.0) mmol/L Calcium 9.4 (8.6-10.3) mg/dl POC Ioniz Calcium [place] 1.19 (1.12-1.32) mmol/l Magnesium 2.0 (1.7-2.4) mg/dl Total Bilirubin 0.4 (0.2-1.0) mg/dl AST 12 L (13-39) U/L ALT 9 (7-52) U/L Alkaline Phosphatase 73 (34-104) U/L Troponin I High Sens 3.5 (0-14) pg/ml Total Protein 8.3 (6.0-8.3) gm/dl Albumin 3.9 (3.4-5.0) gm/dl Globulin 4.4 H (2.5-4.0) gm/dl Albumin/Globulin Ratio 0.9 (0.9-2) Lipase 447 H (11-82) U/L TSH 0.841 (0.300-4.500) uIu/ml HCG, Qual Negative (Negative) Adenovirus (PCR) (NotDetected) B. pertussis DNA (PCR) (NotDetected) B.parapertussis DNA PCR (NotDetected) C. pneumoniae DNA (PCR) (NotDetected) Coronavirus OC43 (PCR) (NotDetected) Coronavirus HKU1 (PCR) (NotDetected) Coronavirus 229E (PCR) (NotDetected) SARS-CoV-2 (PCR) (NotDetected) Coronavirus NL63 (PCR) (NotDetected) Human Metapneumovir PCR (NotDetected) Influenza Type A (PCR) (NotDetected) Influenza Type B (PCR) (NotDetected) M. pneumoniae (PCR) (NotDetected) Parainfluenza 1 (PCR) (NotDetected) Parainfluenza 2 (PCR) (NotDetected) Parainfluenza 3 (PCR) (NotDetected) Parainfluenza 4 (PCR) (NotDetected) RSV (PCR) (NotDetected) Entero/Rhino (PCR) (NotDetected) 10/09/24 10/09/24 Range/Units 09:18 10:12 WBC (4.8-10.8) K/ul RBC (4.20-5.40) M/uL Hgb (12.0-16.0) g/dl POC Hgb (12.0-16.0) g/dl Hct (37.0-47.0) % POC Hct (37-47) % MCV (80.0-100.0) fL MCH (25.0-34.0) pg MCHC (32.0-36.0) g/dL RDW Std Deviation (36.4-46.3) fL RDW Coeff of Arnold (11.5-14.5) % Plt Count (130-400) K/uL MPV (9.4-12.4) fL Immature Gran % (Auto) % Neut % (Auto) % Lymph % (Auto) % [place] % (Auto) % Eos % (Auto) % Baso % (Auto) % Neut # (Auto) (1.40-6.50) K/uL Lymph # (Auto) (1.20-3.40) K/uL [place] # (Auto) (0.11-0.59) K/uL Eos # (Auto) (0.00-0.50) K/uL Baso # (Auto) (0.00-0.20) K/uL Immature Gran # (Auto) (0.01-0.20) K/uL VBG pH (7.36-7.41) VBG pCO2 (38-50) mmHg VBG pO2 mmHg VBG HCO3 mmol/L VBG O2 Saturation % VBG Base Excess mEq/L POC Sodium (135-144) mmol/L Sodium (136-145) mmol/L POC Potassium (3.3-5.0) mmol/L Potassium (3.5-5.1) mmol/L POC Chloride (101-112) mmol/L Chloride (98-107) mmol/L Carbon Dioxide (21-32) mmol/L POC Total CO2 (24-31) mmol/L Anion Gap (3-11) POC Anion Gap (16-25) mmol/L POC BUN (7-18) mg/dl BUN (6-23) mg/dl Creatinine (0.6-1.2) mg/dl POC Creatinine (0.6-1.3) mg/dl Est Cr Clr Drug Dosing ml/min eGFR BUN/Creatinine Ratio (10-20) Glucose (70-99(Fasting)) mg/dl POC Glucose 567 H* (70-99) mg/dl POC Glucose (other) (70-99) mg/dl Lactate (0.4-2.0) mmol/L Calcium (8.6-10.3) mg/dl POC Ioniz Calcium [place] (1.12-1.32) mmol/l Magnesium (1.7-2.4) mg/dl Total Bilirubin (0.2-1.0) mg/dl AST (13-39) U/L ALT (7-52) U/L Alkaline Phosphatase (34-104) U/L Troponin I High Sens (0-14) pg/ml Total Protein (6.0-8.3) gm/dl Albumin (3.4-5.0) gm/dl Globulin (2.5-4.0) gm/dl Albumin/Globulin Ratio (0.9-2) Lipase (11-82) U/L TSH (0.300-4.500) uIu/ml HCG, Qual (Negative) Adenovirus (PCR) Not Detected (NotDetected) B. pertussis DNA (PCR) Not Detected (NotDetected) B.parapertussis DNA PCR Not Detected (NotDetected) C. pneumoniae DNA (PCR) Not Detected (NotDetected) Coronavirus OC43 (PCR) Not Detected (NotDetected) Coronavirus HKU1 (PCR) Not Detected (NotDetected) Coronavirus 229E (PCR) Not Detected (NotDetected) SARS-CoV-2 (PCR) Not Detected (NotDetected) Coronavirus NL63 (PCR) Not Detected (NotDetected) Human Metapneumovir PCR Not Detected (NotDetected) Influenza Type A (PCR) Not Detected (NotDetected) Influenza Type B (PCR) Not Detected (NotDetected) M. pneumoniae (PCR) Not Detected (NotDetected) Parainfluenza 1 (PCR) Not Detected (NotDetected) Parainfluenza 2 (PCR) Not Detected (NotDetected) Parainfluenza 3 (PCR) Not Detected (NotDetected) Parainfluenza 4 (PCR) Not Detected (NotDetected) RSV (PCR) Not Detected (NotDetected) Entero/Rhino (PCR) Not Detected (NotDetected) Administered Medications Insulin Human Regular 250 (units/ Sodium Chloride) 250 mls @ 1.4 mls/hr IV .Q24H GEOVANNA; Protocol Stop: 11/08/24 09:44 Last Titration: 10/09/24 12:28 Dose: 1.4 unit/hr, 1.4 mls/hr Documented By: KAMINI Co-signed By: LAURA Titration: 10/09/24 11:57 Dose: 1.8 unit/hr, 1.8 mls/hr Documented By: KAMINI Co-signed By: JOSÉ Admin: 10/09/24 10:47 Dose: 1.5 unit/hr, 1.5 mls/hr Documented By: MALIK Co-signed By: CRISTO Discontinued Medications Hydromorphone HCl (Hydromorphone Inj 0.5 Mg/0.5 Ml Syr) 0.5 mg IV NOW STA Stop: 10/09/24 09:30 Last Admin: 10/09/24 09:36 Dose: 0.5 mg Documented By: MALIK Hydromorphone HCl (Hydromorphone Inj 0.5 Mg/0.5 Ml Syr) 0.5 mg IV NOW STA Stop: 10/09/24 10:47 Last Admin: 10/09/24 11:35 Dose: 0.5 mg Documented By: KAMINI Sodium Chloride (Nss) 1,000 mls @ 999 mls/hr IV .Q1H1M ONE Stop: 10/09/24 09:24 Last Infusion: 10/09/24 12:09 Dose: Infused Documented By: Admin: 10/09/24 09:15 Dose: 999 mls/hr Documented By: MALKI Famotidine (Pepcid 20mg Iv Push) 20 mg in 5 mls @ 2.5 mls/min IV NOW STA Stop: 10/09/24 09:30 Last Admin: 10/09/24 09:35 Dose: 2.5 mls/min Documented By: MALIK Ampicillin Sodium/Sulbactam Sodium (Unasyn) 3,000 mg in 100 mls @ 200 mls/hr IV NOW STA Stop: 10/09/24 11:15 Last Infusion: 10/09/24 12:09 Dose: Infused Documented By: Admin: 10/09/24 11:34 Dose: 200 mls/hr Documented By: KAMINI Sodium Chloride (Nss) 1,000 mls @ 999 mls/hr IV .Q1H1M ONE Stop: 10/09/24 11:46 Last Infusion: 10/09/24 12:09 Dose: Infused Documented By: Admin: 10/09/24 10:54 Dose: 999 mls/hr Documented By: MALIK Ioversol (Optiray 320 100ml) 94 ml IV ONCE ONE Stop: 10/09/24 10:08 Last Admin: 10/09/24 10:07 Dose: 94 ml Documented By: RITA Ioversol (Optiray 320 100ml) 94 ml IV ONCE ONE Stop: 10/09/24 11:52 Last Admin: 10/09/24 11:51 Dose: 94 ml Documented By: LÁZARO Sheridan (Stat Iv Infusion Titration Per Protocol) 1 each N/A NOW STA Stop: 10/09/24 09:31 Last Admin: 10/09/24 11:41 Dose: Not Given Documented By: KAMINI Sheridan (Insulin Protocol Goal Range ) 1 each N/A ONE ONE Stop: 10/09/24 09:38 Last Admin: 10/09/24 11:58 Dose: Not Given Documented By: KAMINI Sheridan (Moderate Stress Level ) 1 each N/A ONE ONE Stop: 10/09/24 09:40 Last Admin: 10/09/24 11:58 Dose: Not Given Documented By: KAMINI Sheridan (Pending D5 1/2ns+20meq Kcl Ivf) 1 each N/A Q2H GEOVANNA Stop: 11/08/24 11:14 Last Admin: 10/09/24 11:58 Dose: Not Given Documented By: KAMINI Ondansetron HCl (Ondansetron Inj 2 Mg/Ml 2 Ml Vial) 4 mg IV NOW STA Stop: 10/09/24 09:30 Last Admin: 10/09/24 09:37 Dose: 4 mg Documented By: MALIK Imaging Data Radiologist's Impression: Chest X-Ray 10/09/24 08:24 XR chest 1V portable CLINICAL HISTORY: weakness COMPARISON STUDY: 04/24/2024 FINDINGS: Heart size and pulmonary vasculature are normal. No effusion, consolidation, or pneumothorax. IMPRESSION: No acute findings. ACT 112: Negative or not required by law. Electronically signed by: Bandar Gamez M.D. 10/09/2024 8:46 AM Abdomen/Pelvis CT 10/09/24 09:[address] WITH IV CONTRAST CT DOSE: 427.99 mGy.cm HISTORY: abd pain, ?pancreatitis TECHNIQUE: Multiaxial CT images of the abdomen and pelvis were performed following the IV administration of 90 cc of Optiray, A dose lowering technique was utilized adhering to the principles of ALARA. COMPARISON STUDY: 04/19/2024 FINDINGS: ABDOMEN: There is interval revision of the pancreatic stent with longer stent in place. There is minimal inflammation adjacent to the proximal pancreas, improved. The prior proximal pancreatic pseudocysts have resolved. Stable pancreatic calcifications consistent with chronic pancreatitis. Liver, gallbladder, spleen, and adrenal glands are unremarkable. Kidneys show no hydronephrosis. No abdominal aortic aneurysm. Pelvis: Stable small calcified uterine fibroid. Uterus and adnexa are otherwise grossly unremarkable. Urinary bladder is nondistended. There is mild retained stool. No bowel inflammation or obstruction. No free fluid, free air, or abscess. No enlarged adenopathy. Osseous structures: There is an interval subacute minimally displaced fracture posteriorly at the left 10th rib. No other acute osseous finding seen. IMPRESSION: 1. Minimal pancreatic head pancreatitis with no evidence of pseudocyst or abscess. 2. Interval subacute fracture at the left 10th rib. 3. No other adverse change seen. Otherwise as described. ACT 112: Negative or not required by law. The above report was generated using voice recognition software. It may contain grammatical, syntax or spelling errors. Electronically signed by: Bandar Gamez M.D. 10/09/2024 10:41 AM Discharge Plan Visit Data Chief Complaint: Hyperglycemia Stated Complaint: DKA, HYPERGLYCEMIA/OVER 700 ED Provider: Nirmal Andino Discharge Problem: Pancreatitis, Sialadenitis, Acute hyperglycemia Patient Disposition: Being Evaluated by Hospitalist Discharge Instructions Interventions: ED Discharge Assessment Last Done: 10/09/24 12:26 Discharge Problem: Pancreatitis Qualifiers: Chronicity: acute Pancreatitis type: unspecified pancreatitis type Acute pancreatitis complication: no infection or necrosis Qualified Code(s): K85.90 - Acute pancreatitis without necrosis or infection, unspecified
--- NOTE | 2024-10-09 10:42 | CT Scan Report ---
ABDOMEN AND PELVIS CT WITH IV CONTRAST CT DOSE: 427.99 mGy.cm HISTORY: abd pain, ?pancreatitis TECHNIQUE: Multiaxial CT images of the abdomen and pelvis were performed following the IV administrat ion of 90 cc of Optiray, A dose lowering technique was utilized adhering to the principles of ALARA. COMPARISON STUDY: 04/19/2024 FINDINGS: ABDOMEN: There is interval revision of the pancreatic stent with longer stent in place. There is mini mal inflammation adjacent to the proximal pancreas, improved. The prior proximal pancreatic pseudocys ts have resolved. Stable pancreatic calcifications consistent with chronic pancreatitis. Liver, gallb ladder, spleen, and adrenal glands are unremarkable. Kidneys show no hydronephrosis. No abdominal aor tic aneurysm. Pelvis: Stable small calcified uterine fibroid. Uterus and adnexa are otherwise grossly unremarkable. Urinary bladder is nondistended. There is mild retained stool. No bowel inflammation or obstruction. No free fluid, free air, or abscess. No enlarged adenopathy. Osseous structures: There is an interval subacute minimally displaced fracture posteriorly at the lef t 10th rib. No other acute osseous finding seen. IMPRESSION: 1. Minimal pancreatic head pancreatitis with no evidence of pseudocyst or abscess. 2. Interval subacute fracture at the left 10th rib. 3. No other adverse change seen. Otherwise as described. ACT 112: Negative or not required by law. The above report was generated using voice recognition software. It may contain grammatical, syntax o r spelling errors. Electronically signed by: Bandar Gamez M.D. 10/09/2024 10:41 AM
[2024-10-09] MEDS: INSULIN REGULAR 250 UNITS in SODIUM CHLORIDE 0.9% 247.5 ML IV SCH (10:47)
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
[2024-10-09] MEDS ORDERED: PENDING 1/2NSS+20mEq KCL IVF SCH (11:15)
[2024-10-09] MEDS: AMPICILLIN/SULBACTAM SOD 3,000 MG/100 ML BAG IV STA (11:34)
[2024-10-09] MEDS: STAT IV Infusion **Titration per Protocol STA (11:41)
[2024-10-09 11:52] LABS: BUN Creatinine Ratio 27.4 (10-20); Calcium 8.2 mg/dl (8.6-10.3); Creatinine Clr Calc Pharmacy 92.8 ml/min; Magnesium 1.8 mg/dl (1.7-2.4); Phosphorus 3.1 mg/dl (2.5-4.9); Potassium 3.9 mmol/L (3.5-5.1)
[2024-10-09] MEDS: PENDING D5 1/2NS+20mEq KCL IVF SCH (11:58)
[2024-10-09] MEDS: MODERATE STRESS LEVEL ONE (11:58)
[2024-10-09] MEDS: INSULIN PROTOCOL GOAL RANGE ONE (11:58)
[2024-10-09 12:06] LABS: Pregnancy Test, Serum Negative (Negative)
--- NOTE | 2024-10-09 12:21 | CT Scan Report ---
CT soft tissue neck w con HISTORY: 39 years-old Female R sided facial swelling acute right-sided facial pain and swelling COMPARISON: Head CT 05/18/2024 TECHNIQUE: Multiple axial CT images of the soft tissues of the neck were obtained with IV contrast. A dose lowering technique was used consistent with the principals of ALARA. FINDINGS: The imaged intracranial structures demonstrate no acute abnormality. Orbits are within normal limits. Subcentimeter hypodense thyroid nodules. The lung apices are clear without pneumothorax. Patent vasc ulature of the neck with mild atherosclerosis of the carotid bulbs, cavernous and supraclinoid segmen ts of the internal carotid arteries without high-grade stenosis. Streak artifact from dental amalgam hardware. Unremarkable appearance of the parotid and submental glands. Patent airway. No pathologically enlarged lymph nodes. No salivary stones. Mastoid air cells are ritu r. Mild mucosal thickening of the paranasal sinuses. No acute fracture or significant odontogenic dis ease. There is mild to moderate subcutaneous and deep tissue edema within the right cheek centered around t he anterior superficial lobe of the parotid gland. No associated ductal dilation, mass or other abnor mality. No fluid collection. IMPRESSION: 1. Findings suggestive of acute right-sided sialadenitis. No associated sialolith or salivary ductal dilation. 2. No lymphadenopathy or fluid collections. 3. Mild atherosclerosis of the carotid arteries. ACT 112: Negative or not required by law. The above report was generated using voice recognition software. It may contain grammatical, syntax o r spelling errors. Electronically signed by: Pepe Lancaster M.D. 10/09/2024 12:18 PM
[2024-10-09] MEDS ORDERED: POLYETHYLENE (MIRALAX) 17 GM PACK PO PRN (12:25)
[2024-10-09] MEDS ORDERED: hydrOXYzine HCl 25 MG TAB PO PRN (12:25)
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
[2024-10-09] MEDS ORDERED: DEXTROSE 50% 50 ML SYRINGE IV PRN (13:15)
[2024-10-09] MEDS ORDERED: GLUCAGON FOR INJ 1 MG VIAL SQ PRN (13:15)
[2024-10-09] MEDS ORDERED: CARBOHYDRATES FOR HYPOGLYCEMIA PO PRN (13:15)
[2024-10-09] MEDS ORDERED: LANTUS PER UNIT CHARGE SC SCH (13:15)
[2024-10-09] MEDS ORDERED: GLUCOSE 40% GEL 15 GM TUBE PO PRN (13:15)
[2024-10-09] MEDS ORDERED: GLUCOSE 10 TAB/TUBE PO PRN (13:15)
[2024-10-09] MEDS: FOLIC ACID 1 MG in SYRINGE 9.8 ML IV STA (14:03)
[2024-10-09] MEDS: SODIUM CHLOR 0.45% + 20MEQ KCL 20 MEQ/1,000 ML BAG IV SCH (14:03)
[2024-10-09] MEDS: THIAMINE HCL 200 MG in SODIUM CHLORIDE 0.9% 50 ML IV STA (14:03)
[2024-10-09] MEDS: ACETAMINOPHEN 1,000 MG/100 ML VIAL IV SCH (14:04)
--- NOTE | 2024-10-09 15:04 | Pharmacy Report ---
Pharmacy Glycemic Short Note 2 - Date of Service October 09, 2024 - Glycemic Short BSG Results (Last 24 hours): 10/09/24 10/09/24 10/09/24 08:29 09:05 09:14 Glucose 778 H* POC Glucose > 600 H* POC Glucose (other) > 700 H* 10/09/24 10/09/24 10/09/24 10:12 11:15 11:39 Glucose 467 H* POC Glucose 567 H* 423 H* POC Glucose (other) 10/09/24 10/09/24 10/09/24 12:23 13:05 14:11 Glucose POC Glucose 344 H* 343 H* 289 H POC Glucose (other) 10/09/24 14:47 Glucose POC Glucose 272 H POC Glucose (other) OUTPATIENT ANTIDIABETIC REGIMEN: * Lantus 14 units QAM * Aspart ~ 50 units over total day * A1c pending ASSESSMENT: 10/09 * YS is a 39 YOF here inpatient for severe hyperglycemia requiring insulin gtt to be initiated. Pharmacy consulted to manage her T1DM while inpatient. * PMH includes pancreatitis, asthma, HTN, GERD, and alcohol dependence. * Pt currently NPO for her [id number] pancreatitis. * Pharmacy following parameters similar to previous admissions to transfer pt from insulin gtt to basal/bolus regimen. PLAN FOR INPATIENT GLYCEMIC CONTROL: * IV insulin infusion currently running at 1.4 units/hour * Novolog ordered per insulin infusion calculator * Goal range 110-180 * OK to d/c insulin drip when BSG less than 200, Lantus has been given * Basal insulin * Lantus 15 units SQ x 1 * Reassess basal in AM * Bolus insulin * NovoLog per scale ACHS or Q4hrs while NPO * Goal Range: Low 120 mg/dL - High 150 mg/dL * Correction Factor: 30 mg/dL/unit * Nutritional / Prandial insulin per carb ratio of 1 unit per 10 grams CHO consumed
[2024-10-09 15:27] LABS: Appearance Urine Clear (Clear); Bacteria Urine Automated None Seen (None Seen); Bilirubin Urine Negative (Negative); Blood Urine Negative (Negative); Cast Urine Automated 0-2 /lpf (0-2); Color Urine Yellow; Epithelial Cell Urine Auto 0-2 /hpf (0-2); Glucose Urine UA Trace (Negative); Ketones Urine 1+ (Negative); Leukocyte Esterase Urine Negative (Negative); Nitrite Urine Negative (Negative); Protein Urine Trace (Negative); RBC Urine Automated 0-2 /hpf (0-2); Specific Gravity Urine > 1.045 (1.000-1.030); Urobilinogen Urine Negative (Negative)
[2024-10-09] MEDS: LANTUS PER UNIT CHARGE SC STA (15:30)
[2024-10-09] MEDS: MoRPHine SULFATE 4 MG/ML 1 ML CARP\\VIAL IV PRN (15:35)
[2024-10-09 15:40] LABS: BUN Creatinine Ratio 23.6 (10-20); Calcium 7.9 mg/dl (8.6-10.3); Creatinine Clr Calc Pharmacy 104.7 ml/min; Magnesium 1.8 mg/dl (1.7-2.4); Phosphorus 2.4 mg/dl (2.5-4.9); Potassium 3.8 mmol/L (3.5-5.1)
[2024-10-09] MEDS: INSULIN ASPART PER UNIT CHARGE SC SCH ×2 (15:40→21:19)
[2024-10-09] MEDS ORDERED: POTASSIUM PHOS 3 MMOL/1 ML INFUSION IV STA (16:44)
[2024-10-09] MEDS: POT PHOSPHATE MONOBASIC W/ SOD TAB PO SCH (18:06)
[2024-10-09] MEDS: ONDANSETRON INJ 2 MG/ML 2 ML VIAL IV PRN (18:06)
[2024-10-09 18:27] LABS: BUN Creatinine Ratio 25.6 (10-20); Calcium 7.8 mg/dl (8.6-10.3); Creatinine Clr Calc Pharmacy 133.9 ml/min; Magnesium 1.7 mg/dl (1.7-2.4); Phosphorus 1.8 mg/dl (2.5-4.9); Potassium 3.5 mmol/L (3.5-5.1)
[2024-10-09] MEDS: AMPICILLIN/SULBACTAM SOD 3,000 MG/100 ML BAG IV SCH (19:18)
[2024-10-09] MEDS: ACETAMINOPHEN 325 MG TAB PO PRN (19:18)
--- NOTE | 2024-10-09 20:41 | Oral/Maxillofacial Consult ---
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, managed as type 1: History of Present Illness Attending Physician: Kamille Hansen MD History of Present Illness Assessment & Plan (1) Pancreatitis: (2) DKA (diabetic ketoacidosis): (3) Metabolic acidosis: (4) Sialadenitis: #Borderline DKA in setting of T1DM admit to PCU #Acute on chronic pancreatitis #R facial swelling #Possible Sialadenitis empiric Unasyn for now, CT neck w/ contrast, oralmaxillofacial consult obtain blood cultures #Pseudohyponatremia in setting of DKA: correct serum sodium normal #DVT PPX: SQ Lovenox History of Present Illness Chief Complaint: Referred by PCP due to hyperglycemia Primary Care Provider: Harinder Nathan DO This is a 39-year-old female who has significant past medical history of type 1 diabetes mellitus on insulin, chronic pancreatitis, asthma, hypertension, GERD, history of alcohol dependence and depression with anxiety who presents to ED at the referral PCP due to outpatient lab work revealing hyperglycemia. History obtained from ED provider, patient and external chart review. She was seen in clinic on 10/08 secondary to inability to tolerate oral intake as well as abdominal pain. She has history of recurrent pancreatitis. She follows with Jun GARIBAY and her last ERCP with sphincterotomy was in April by Dr. Nielsen. Per chart review she has been unable to tolerate oral intake since 08/30 has been mostly doing liquids. Outpatient lab work was obtained yesterday which revealed elevated blood glucose level of 700 and elevated anion gap concerning for DKA. She was referred to ED. patient reports inability to tolerate oral intake since August 30. She reports being able to tolerate milk and that is the only thing that helps her symptoms. Over the last 1.5 weeks she has developed excruciating epigastric abdominal pain radiating to her back. Pain is constant, waxes and wanes in severity, is improved with milk and nothing makes it worse. It feels similar to her prior episodes of pancreatitis. She has had significant episodes of nausea and vomiting. She reports being compliant with her insulin. She further feels feverish, chilled, sweats, chest pain from the radiation of her epigastric pain. She has not been moving her bowels consistently due to poor intake. She has been urinating without difficulty. She denies any dysuria, hematuria or increased urgency. This morning she reports waking up to swelling on the right side of her face. Pt denies significant ETOH use. States she had 1 glass of wine last night to help her sleep because she hasn't been able to sleep through all this. In ED patient was hemodynamically stable. Lab work notable for significant hyperglycemia with glucose over 700, lipase elevated at 447, VBG pH 7.3. CT soft tissue neck w con HISTORY: 39 years-old Female R sided facial swelling acute right-sided facial pain and swelling FINDINGS: The imaged intracranial structures demonstrate no acute abnormality. Orbits are within normal limits. Subcentimeter hypodense thyroid nodules. The lung apices are clear without pneumothorax. Patent vasculature of the neck with mild atherosclerosis of the carotid bulbs, cavernous and supraclinoid segments of the internal carotid arteries without high-grade stenosis. Streak artifact from dental amalgam hardware. Unremarkable appearance of the parotid and submental glands. Patent airway. No pathologically enlarged lymph nodes. No salivary stones. Mastoid air cells are clear. Mild mucosal thickening of the paranasal sinuses. No acute fracture or significant odontogenic disease. There is mild to moderate subcutaneous and deep tissue edema within the right cheek centered around the anterior superficial lobe of the parotid gland. No associated ductal dilation, mass or other abnormality. No fluid collection. IMPRESSION: 1. Findings suggestive of acute right-sided sialadenitis. No associated sial olith or salivary ductal dilation. 2. No lymphadenopathy or fluid collections. 3. Mild atherosclerosis of the carotid arteries. Oral Maxillofacial consult: I see this often in my office with DM and other autoimmune issues--this is some inform I hand out to my patients Salivary gland enlargement is a common finding in hyperglycemic,dehydration and many other auto immune diseases. The swelling is soft, right cheek, does not change with food stimulation, no evidence of any obstruction, the parotid duct is clear, no mass noted. I explained to the high blood sugar and dehydration that in many patients the gland function undergoes changes resulting in this edematous asymptomatic enlargement. There is no evidence of any pathology or signs of infection. Salivary flow is light but clear while milking the gland No need for antibiotics A reassured Ms. Eryn that as the BS get back to normal and she is able to take in more fluid--improvement will occur. I discussed the information below. DISCUSSED THE FOLLOWING: Hyperglycemia, can be associated with parotid gland swelling, in diabetic patients, where the salivary glands, including the parotids, can become enlarged due to changes in the gland tissue, usually without pain or other symptoms;this is considered a complication of diabetes and can occur due to the direct effects of high blood sugar on salivary gland function. High blood sugar levels can disrupt the normal function of salivary glands, leading to changes in saliva production and potentially causing the glands to swell. Dehydration can cause thick saliva and cause mucous plugs with can block salivary flow and cause gland swelling . This swelling is usually asymptomatic and may only effect one side. Treatment focus: The primary treatment for parotid gland swelling related to hyperglycemia is good diabetes management, aiming to maintain stable blood sugar levels. Heat, massage, gland stimulation (lemon drops),hydration, antibiotics if suspect infection How diabetes affects salivary glands * Dehydration:Diabetes can cause increased water intake, which can lead to dehydration and reduced saliva production. * Mitochondrial dysfunction:Diabetes can damage the mitochondria in the salivary glands, which can reduce saliva secretion. * Structural damage:Diabetes can damage the acinar cells in the salivary glands. * Hyperglycemia:Long-term high blood sugar can impair salivary gland function. Symptoms of salivary gland dysfunction * Dry mouth * Thick, stringy, or sticky saliva * Pain or burning in the mouth or throat * Difficulty swallowing or chewing * Bad taste in the mouth * Swollen gums that bleed when brushing or flossing * White patches in the mouth Treatment: Treatment for parotid swelling secondary to hyperglycemia primarily focuses on managing the underlying high blood sugar levels throughdietary adjustments, medication adjustments, and increased hydration, alongside supportive measures like salivary gland massage, warm compresses, and stimulating saliva production with sour candies or sugar-free gum; if symptoms are severe or persistent, I can discuss further treatment options. Balderas components of treatment: Blood sugar control: * Dietary modifications: * Medication adjustment: * Salivary gland management: Hydration:Drink plenty of fluids to promote saliva production. Sialagogues:Consider using sugar-free candies or gum to stimulate saliva flow. Salivary gland massage:massage the affected parotid gland with warm compresses to help drain saliva. * Pain management: Lrji-ftl-[id number] pain medication:Use medications like acetaminophen or ibuprofen as needed. Allergies Allergy/AdvReac Type Severity Reaction Status Date / Time bee venom protein (honey bee) Allergy Severe ANAPHYLAXIS Verified 07/19/24 10:16 Home Medications Medication Instructions Recorded Confirmed Type epinephrine 0.3 mg/0.3 mL 0.3 mg IM UD PRN Allergic Reaction 11/18/21 10/09/24 History injection, auto-injector Medical Marijuana 1 dose inhalation HS PRN Sleep 02/08/22 10/09/24 History blood sugar diagnostic #100 ea 04/25/24 07/19/24 Rx blood-glucose meter #1 ea 04/25/24 07/19/24 Rx lancets #200 ea 04/25/24 07/19/24 Rx magnesium chloride 64 mg 64 mg PO BID #60 tabs 04/25/24 10/09/24 Rx (magnesium chloride) tablet,delayed release pen needle, diabetic 32 gauge x #200 ea 05/10/24 07/19/24 Rx 5/32" (BD Bozena 2nd Gen Pen Needle) blood-glucose sensor (Dexcom G7 #3 ea 05/27/24 05/27/24 Rx Sensor device) insulin pump cart,automated,BT #10 ea 05/27/24 07/19/24 Rx (Omnipod 5 G6 Pods (Gen 5) subcutaneous cartridge) insulin pump cartridge,automated #1 ea 05/27/24 07/19/24 Rx dose,BT with controller subcutaneous (Omnipod 5 G6 Intro Kit (Gen 5) subcutaneous cartridge with controller) potassium chloride 10 mEq 10 meq BID 06/09/24 10/09/24 History capsule,extended release insulin aspart U-100 100 unit/mL 50 unit (0.5 mL) subcut DAILY 30 07/19/24 10/09/24 Rx (3 mL) subcutaneous pen (NovoOSIX days #15 mL FlexPen U-100 Insulin aspart) sumatriptan succinate 50 mg tablet 50 mg PO UD PRN Migraine Headache 07/19/24 10/09/24 History hydroxyzine HCl 25 mg tablet 25 mg PO Q6H PRN Itching 10/09/24 10/09/24 History insulin glargine 100 unit/mL 14 unit SC QAM 10/09/24 10/09/24 History subcutaneous solution (Lantus U-100 Insulin) ketorolac 10 mg tablet 10 mg PO Q8H PRN Pain 10/09/24 10/09/24 History omeprazole 40 mg capsule,delayed 40 mg PO UD 10/09/24 10/09/24 History release amoxicillin 500 mg-potassium 1 tab PO BID 5 days #10 tabs 10/11/24 Rx clavulanate 125 mg tablet (Augmentin) oxycodone-acetaminophen 5 mg-325 1 tab PO Q8H PRN pain 10 days #30 10/11/24 Rx mg tablet (Percocet) tabs Patient History Medical History Delirium due to another medical condition Excessive thirst Disorganized thought process Paranoid delusion Hypoglycemia Acute hyperglycemia Vomiting Acute pancreatitis Epigastric abdominal pain Encounter for pre-operative examination History of prolonged Q-T interval on ECG Pancreatic stones Chronic neck pain Medical marijuana use Post traumatic stress disorder (PTSD) Diabetes IDDM Hgb A1C 12.3 in 08/2023 Surgical History History of tonsillectomy and adenoidectomy History of esophagogastroduodenoscopy (EGD) History of ERCP Family History Other Adopted No family history of adverse response to anesthesia Social History Smoking Status: Never smoker Tobacco Type: E-cigarettes / Vaping Second Hand Exposure: Yes (at work); Do You Dip or Chew Tobacco: No; Hx Alcohol Use: Yes Alcohol type: wine Hx Substance Use: No Preferred Language: Albanian 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: Effective Chief Clerk Required: No Beliefs That Will Affect Care: None marital status: Single Current Living Situation: Alone Current Living Situation Comment: lives by self in [place] Feels Safe at Home: Yes Gender Identity: Female Assistive Devices: None Results & Data Vital Signs (Past 12 Hours) Vital Signs Temp Pulse Pulse Resp BP BP Pulse Ox 10/09/24 19:31 77 10/09/24 19:30 36.6 C 89 18 112/77 98 10/09/24 15:04 36.5 C 86 18 101/72 97 10/09/24 13:15 85 10/09/24 13:15 10/09/24 13:08 114/79 10/09/24 12:26 10/09/24 12:17 80 16 124/95 98 10/09/24 12:12 82 16 98 10/09/24 12:00 124/95 10/09/24 11:57 85 12 99 10/09/24 11:30 88 13 10/09/24 11:29 92 H 18 10/09/24 11:27 90 28 H 10/09/24 11:12 83 16 10/09/24 11:03 81 28 H 10/09/24 10:51 99 H 13 10/09/24 10:43 116/77 10/09/24 10:43 116/77 10/09/24 10:42 89 14 97 10/09/24 10:15 91 H 18 97 10/09/24 10:09 90 15 98 10/09/24 09:45 93 H 12 96 10/09/24 09:30 94 H 16 97 10/09/24 09:21 102 H 25 H 97 10/09/24 09:15 126 H 15 99 10/09/24 09:06 97 H 19 10/09/24 08:43 105 H 10/09/24 08:42 97 H 15 Pulse Ox O2 Del Method 10/09/24 19:31 10/09/24 19:30 Room Air 10/09/24 15:04 Room Air 10/09/24 13:15 10/09/24 13:15 99 10/09/24 13:08 10/09/24 12:26 Room Air 10/09/24 12:17 Room Air 10/09/24 12:12 10/09/24 12:00 10/09/24 11:57 10/09/24 11:30 10/09/24 11:29 10/09/24 11:27 10/09/24 11:12 10/09/24 11:03 10/09/24 10:51 10/09/24 10:43 10/09/24 10:43 10/09/24 10:42 10/09/24 10:15 10/09/24 10:09 10/09/24 09:45 10/09/24 09:30 10/09/24 09:21 10/09/24 09:15 10/09/24 09:06 10/09/24 08:43 10/09/24 08:42 PG Care Time/CCT Total # of Minutes Spent Total Time Spent with Patient: Total time spent is greater than 50% in coordination of care (as documented) at patient's floor/unit and/or counseling patient: Coding Level of Care Code 88014 IN/OBS CONSULT LVL 3,45M Diagnoses Acute hyperglycemia R73.9 Sialadenitis K11.20 Pancreatitis K85.90 Acute pancreatitis complication: no infection or necrosis Chronicity: acute Pancreatitis type: unspecified pancreatitis type Parotid gland enlargement K11.1 Parotitis K11.20 Metabolic acidosis E87.20 Hyperlipidemia E78.5 Diabetes mellitus type 1.5, managed as type 1 E13.9 (3) Pancreatitis Acute pancreatitis complication: no infection or necrosis Chronicity: acute Pancreatitis type: unspecified pancreatitis type Qualified Code(s): K85.90 - Acute pancreatitis without necrosis or infection, unspecified
[2024-10-09] MEDS: ENOXAPARIN INJ 40 MG/0.4 ML SYR SQ SCH (22:11)
[2024-10-09 23:01] LABS: BUN Creatinine Ratio 21.3 (10-20); Calcium 7.3 mg/dl (8.6-10.3); Creatinine Clr Calc Pharmacy 122.5 ml/min; Magnesium 1.6 mg/dl (1.7-2.4); Phosphorus 1.9 mg/dl (2.5-4.9); Potassium 3.8 mmol/L (3.5-5.1)
[2024-10-10] MEDS: MAGNESIUM SULFATE / D5W 1 GM/100 ML BAG IV SCH (00:07)
[2024-10-10] MEDS: KETOROLAC TROMETHAMINE 15 MG/ML VIAL ONE (03:22)
[2024-10-10] MEDS: KETOROLAC TROMETHAMINE 15 MG/ML VIAL IV ONE (05:06)
[2024-10-10] MEDS ORDERED: SODIUM CHLORIDE 0.9% 1,000 ML IV SCH (06:15)
--- NOTE | 2024-10-10 06:59 | Electrocardiogram Report ---
Test Reason : Blood Pressure : */* mmHG Vent. Rate : 94 BPM Atrial Rate : 94 BPM P-R Int : 138 ms QRS Dur : 68 ms QT Int : 328 ms P-R-T Axes : 72 49 14 degrees QTcB Int : 410 ms Normal sinus rhythm Normal ECG When compared with ECG of 09-Jun-2024 05:25, No significant change Confirmed by Oscar Barraza ([id number]) on 10/10/2024 6:59:04 AM Referred By: Harinder Nathan Confirmed By: Oscar Barraza
[2024-10-10 07:48] LABS: Basophils # (auto) 0.03 K/uL (0.00-0.20); Basophils % (auto) 0.6 %; Calcium 6.7 mg/dl (8.6-10.3); Creatinine Clr Calc Pharmacy 143.9 ml/min; Eosinophils # (auto) 0.07 K/uL (0.00-0.50); Eosinophils % (auto) 1.4 %; Hematocrit (blood only) 28.6 % (37.0-47.0); Hemoglobin 9.8 g/dl (12.0-16.0); Immature Granulocytes # (auto) 0.01 K/uL (0.01-0.20); Immature Granulocytes % (auto) 0.2 %; Lymphocytes # (auto) 1.96 K/uL (1.20-3.40); Lymphocytes % (auto) 40.4 %; Magnesium 2.2 mg/dl (1.7-2.4); Mean Corpuscular Hemoglobin 30.7 pg (25.0-34.0); Mean Corpuscular Hgb Conc 34.3 g/dL (32.0-36.0); Mean Corpuscular Volume 89.7 fL (80.0-100.0); Mean Platelet Volume 9.8 fL (9.4-12.4); Monocytes # (auto) 0.49 K/uL (0.11-0.59); Monocytes % (auto) 10.1 %; Neutrophils # (auto) 2.29 K/uL (1.40-6.50); Neutrophils % (auto) 47.3 %; Platelet Count 325 K/uL (130-400); Potassium 3.6 mmol/L (3.5-5.1); RDW Coefficient of Variation 11.4 % (11.5-14.5); Red Blood Count 3.19 M/uL (4.20-5.40); White Blood Count 4.85 K/ul (4.8-10.8)
[2024-10-10 08:59] LABS: Estimated Average Glucose 321 mg/dl; Hemoglobin A1C 12.8 % (4.5-5.6)
[2024-10-10] MEDS: THIAMINE HCL 200 MG in SODIUM CHLORIDE 0.9% 50 ML IV SCH (08:59)
[2024-10-10] MEDS ORDERED: LANTUS PER UNIT CHARGE SC ONE (09:00)
[2024-10-10] MEDS: SODIUM CHLORIDE 0.9% 500 ML IV ONE (09:00)
[2024-10-10] MEDS: FOLIC ACID 1 MG in SYRINGE 9.8 ML IV SCH (09:03)
[2024-10-10] MEDS: LANTUS PER UNIT CHARGE SC ONE (09:03)
[2024-10-10] MEDS: CEROVITE ADV FORMULA TAB PO SCH (09:03)
--- NOTE | 2024-10-10 09:57 | Pharmacy Report ---
Pharmacy Glycemic Short Note 2 - Date of Service October 10, 2024 - Glycemic Short BSG Results (Last 24 hours): 10/09/24 10/09/24 10/09/24 09:05 10:12 11:15 Glucose 778 H* 467 H* POC Glucose 567 H* 10/09/24 10/09/24 10/09/24 11:39 12:23 13:05 Glucose POC Glucose 423 H* 344 H* 343 H* 10/09/24 10/09/24 10/09/24 14:11 14:47 14:56 Glucose 250 H POC Glucose 289 H 272 H 10/09/24 10/09/24 10/09/24 16:07 17:06 17:55 Glucose 184 H POC Glucose 260 H 216 H 10/09/24 10/09/24 10/09/24 18:07 21:13 22:25 Glucose 88 POC Glucose 182 H 97 10/09/24 10/10/24 10/10/24 22:55 05:58 06:40 Glucose 74 POC Glucose 101 H 83 OUTPATIENT ANTIDIABETIC REGIMEN: * Lantus 14 units SC AM * Aspart ~ 50 units over total day * HbA1c: 12.8% (10/10/24) - significant increase from previous A1c from ~5 months ago ASSESSMENT: 10/10: * Patient received approximately 27 units of insulin total yesterday, 15 from basal and ~12 from IV insulin drip. * BSGs trended down nicely on insulin drip which was able to be discontinued around dinner time last night. Patient remains on Unasyn and 1/2 NS + 20 K at 175 mL/hr. A full liquid diet has been ordered and patient will eat per RN. Fluid will d/c around 1300 today. * Fasting BSG was 83 mg/dL this AM. Given diet ordered and patient eating, will reduce basal dose by one-third today. No changes to Novolog for now. 10/09: * YS is a 39 YOF here inpatient for severe hyperglycemia requiring insulin gtt to be initiated. Pharmacy consulted to manage her T1DM while inpatient. * PMH includes pancreatitis, asthma, HTN, GERD, and alcohol dependence. * Pt currently NPO for her aevtq-dv-cmypcoa pancreatitis. * Pharmacy following parameters similar to previous admissions to transfer pt from insulin gtt to basal/bolus regimen. PLAN FOR INPATIENT GLYCEMIC CONTROL: * Basal insulin * Lantus 10 units SC x 1 * Reassess basal dose in AM * Bolus insulin * NovoLog per scale ACHS * Goal Range: Low 120 mg/dL - High 150 mg/dL * Correction Factor: 35 mg/dL/unit * Nutritional / Prandial insulin per carb ratio of 1 unit per 12 grams CHO consumed
[2024-10-10] MEDS: LACTATED RINGER'S 1,000 ML IV SCH (10:22)
[2024-10-10] MEDS: INSULIN ASPART PER UNIT CHARGE SC SCH (12:00)
[2024-10-10] MEDS: CALCIUM GLUCONATE 1,000 MG/60 ML BAG IV STA (15:44)
--- NOTE | 2024-10-10 16:35 | Gastroenterology Progress Note ---
Date of Service October 10, 2024 Assessment & Plan (1) Acute pancreatitis: Plan: Acute on chronic pancreatitis. Long-term management avoid cigarette smoking and alcohol. (2) Diabetes: Admission and Anticipated Discharge Date Admission Date: October 09, 2024 Subjective Pancreatitis Patient feeling better less abdominal pain. No down her blood test a drop in her hemoglobin. Currently 9.8. Was 12 in admission. I believe the 9.8 some more likely true value. May be some hemoconcentration on admission. Last hemoglobin on 06/09/2024 was 8.7 she had a bowel movement today which was brown against bleeding. You can get a hemorrhagic pancreatitis the patient does not appear to be sick enough for that type of pancreatitis just recommend follow-up for now. Management going forward avoid smoking and alcohol ingestion. Work on improving hemoglobin A1c's which are currently 12. Okay to discharge from a GI Physical Exam Physical Exam: Sitting at the edge of bed does not appear in acute distress Benign abdomen Results & Data Results & Data Vital Signs (Past 12 Hours) Vital Signs Temp Pulse Resp BP Pulse Ox O2 Del Method 10/10/24 15:58 Room Air 10/10/24 15:47 36.9 C 96 H 16 92/67 L 98 Room Air 10/10/24 11:06 36.5 C 91 H 18 100/70 100 Room Air PG Care Time/CCT Total # of Minutes Spent Total Time Spent with Patient: Total time spent is greater than 50% in coordination of care (as documented) at patient's floor/unit and/or counseling patient: Coding Level of Care Code 95648 SUB INP/OBS CARE 09/07MIN Diagnoses Acute pancreatitis K85.90 Diabetes E11.9
[2024-10-10] MEDS ORDERED: INSULIN ASPART PER UNIT CHARGE SC SCH (18:30)
--- NOTE | 2024-10-10 19:15 | Hospitalist Progress Note ---
Date of Service October 10, 2024 Assessment & Plan (1) Pancreatitis: (2) DKA (diabetic ketoacidosis): (3) Metabolic acidosis: (4) Sialadenitis: Plan This is a 39-year-old female who has significant past medical history of type 1 diabetes mellitus on insulin, chronic pancreatitis, asthma, hypertension, GERD, history of alcohol dependence and depression with anxiety who presents to ED at the referral PCP due to outpatient lab work revealing hyperglycemia. #Borderline DKA in setting of T1DM -gap closed, receiving subq insulin -continue fluids -visual educator, pharmacy consult #Acute on chronic pancreatitis -IVF, consult GI, NPO, antiemetics/pain meds -advance diet as tolerated #R facial swelling #Possible Sialadenitis -empiric Unasyn for now, oralmaxillofacial consult obtain blood cultures -will do 7 days of antibiotics #Pseudohyponatremia in setting of DKA: correct serum sodium normal Feeding/fluids: carb count Analgesia: tylenol, toradol, breakthrough oxy Sedation: na Thromboprophylaxis: lovenox Head up position: na Ulcer prophylaxis: na Glycemic control: pharmacy consult Spontaneous breathing trial: na Bowel care: miralax prn Indwelling catheter removal: na Deescalation of antibiotics: unasyn I spent a total of 50 minutes in direct patient care, including dexx-xx-dlnq time with the patient and/or family, reviewing medical records, ordering and reviewing diagnostic tests, and coordinating care with other healthcare providers. This time includes: history taking, physical examination, medical decision making, counseling, ECG interpretation, imaging interpretation, lab interpretation, orders, and education, excluding time spent in the performance of separately billed services. Admission and Anticipated Discharge Date Admission Date: October 09, 2024 Subjective Patient seen and examined at bedside. Patient states that she would like to eat, feels much better than when she came in. We discussed pancreatitis and its course, she she understands and is appreciative of the update. We discussed needing tighter diabetes control as well. Review of Systems Review of Systems: CONSTITUTIONAL: Patient denies fevers, chills, sweats and weight changes. EYES: Patient denies any visual symptoms. EARS, NOSE, AND THROAT: No difficulties with hearing. No symptoms of rhinitis or sore throat. CARDIOVASCULAR: Patient denies chest pains, palpitations, orthopnea and paroxysmal nocturnal dyspnea. RESPIRATORY: No dyspnea on exertion, no wheezing or cough. GI: trace abdominal pain : No urinary hesitancy or dribbling. No nocturia or urinary frequency. No abnormal urethral discharge. MUSCULOSKELETAL: No myalgias or arthralgias. NEUROLOGIC: No chronic headaches, no seizures. Patient denies numbness, tingling or weakness. PSYCHIATRIC: Patient denies problems with mood disturbance. No problems with anxiety. ENDOCRINE: No excessive urination or excessive thirst. DERMATOLOGIC: Patient denies any rashes or skin changes. Physical Exam Physical Exam: Gen: A&O 3 NAD HEENT: NCAT, EOMI, not icteric. External ears normal. No rhinorrhea. Moist mucous membranes. Neck: Supple, full range of motion, no observable masses, No meningeal sign. Lungs: No Respiratory distress. CV: RRR, no edema. Abdomen: trace tenderness to palpation MSK: No joint swelling, no redness. Skin: No rashes, petechiae, lesions. Normal color per patient. Neuro: Normal Gait, Grossly intact. Psych: Appropriate for situation. Results & Data Results & Data Vital Signs (Past 12 Hours) Vital Signs Temp Pulse Resp BP Pulse Ox O2 Del Method 10/10/24 15:58 Room Air 10/10/24 15:47 36.9 C 96 H 16 92/67 L 98 Room Air 10/10/24 11:06 36.5 C 91 H 18 100/70 100 Room Air Laboratory Results -personally reviewed, slightly elevated lipase and abdominal pain consistent with pancreatitis, elevated glucose and A1c consistent with uncontrolled diabetes, gap closed x2 Medications Administered Acetaminophen (Acetaminophen 325 Mg Tab) 650 mg PO Q4H PRN PRN Reason: Pain or Fever Stop: 11/08/24 12:24 Last Admin: 10/09/24 19:18 Dose: 650 mg Documented By: REGINA Enoxaparin Sodium (Enoxaparin Inj 40 Mg/0.4 Ml Syr) 40 mg SQ HS GEOVANNA Stop: 11/08/24 20:59 Last Admin: 10/09/24 22:21 Dose: Not Given Documented By: RAJ Acetaminophen (Ofirmev) 1,000 mg in 100 mls @ 400 mls/hr IV Q8 GEOVANNA Stop: 10/12/24 12:59 Last Admin: 10/10/24 13:53 Dose: Not Given Documented By: Infusion: 10/10/24 06:00 Dose: Infused Documented By: Admin: 10/10/24 05:45 Dose: 400 mls/hr Documented By: Infusion: 10/09/24 22:26 Dose: Infused Documented By: Admin: 10/09/24 22:11 Dose: 400 mls/hr Documented By: Infusion: 10/09/24 14:27 Dose: Infused Documented By: Admin: 10/09/24 14:04 Dose: 400 mls/hr Documented By: KAMINI Ampicillin Sodium/Sulbactam Sodium (Unasyn) 3,000 mg in 100 mls @ 200 mls/hr IV Q6 GEOVANNA Stop: 10/19/24 17:59 Last Infusion: 10/10/24 17:47 Dose: Infused Documented By: Admin: 10/10/24 17:11 Dose: 200 mls/hr Documented By: Infusion: 10/10/24 14:41 Dose: Infused Documented By: Admin: 10/10/24 13:51 Dose: 200 mls/hr Documented By: Infusion: 10/10/24 06:39 Dose: Infused Documented By: Admin: 10/10/24 06:09 Dose: 200 mls/hr Documented By: Infusion: 10/10/24 00:00 Dose: Infused Documented By: Admin: 10/09/24 23:30 Dose: 200 mls/hr Documented By: Infusion: 10/09/24 19:48 Dose: Infused Documented By: Admin: 10/09/24 19:18 Dose: 200 mls/hr Documented By: REGINA Thiamine HCl 200 mg/ Sodium (Chloride) 52 mls @ 210 mls/hr IV QAM GEOVANNA Stop: 11/09/24 08:59 Last Infusion: 10/10/24 10:20 Dose: Infused Documented By: Admin: 10/10/24 08:59 Dose: 210 mls/hr Documented By: JOSE Folic Acid 1 mg/ Syringe 10 mls @ 5 mls/min IV QAM GEOVANNA Stop: 11/09/24 08:59 Last Admin: 10/10/24 09:03 Dose: 5 mls/min Documented By: JOSE Insulin Aspart (Insulin Aspart Per Unit Charge) 0 units SC ACHS GEOVANNA Stop: 11/08/24 20:59 Last Admin: 10/10/24 17:13 Dose: 4 units Documented By: FÁTIMA Co-signed By: CHUCK Admin: 10/10/24 12:00 Dose: 7 units Documented By: JOSE Co-signed By: AM Morphine Sulfate (Morphine Sulfate 4 Mg/Ml 1 Ml Carp\Vial) 3 mg IV Q3H PRN PRN Reason: Severe Pain (Scale 7, 8, 9,10) Stop: 10/23/24 12:24 Last Admin: 10/10/24 15:45 Dose: 3 mg Documented By: Admin: 10/10/24 08:59 Dose: 3 mg Documented By: Admin: 10/09/24 23:23 Dose: 3 mg Documented By: Admin: 10/09/24 19:20 Dose: 3 mg Documented By: Admin: 10/09/24 15:35 Dose: 3 mg Documented By: REGINA Multivitamins/Minerals (Cerovite Adv Formula Tab) 1 tab PO QAM GEOVANNA Stop: 11/09/24 08:59 Last Admin: 10/10/24 09:03 Dose: 1 tab Documented By: JOSE Ondansetron HCl (Ondansetron Inj 2 Mg/Ml 2 Ml Vial) 4 mg IV Q6H PRN PRN Reason: Nausea Stop: 11/08/24 12:24 Last Admin: 10/10/24 08:59 Dose: 4 mg Documented By: Admin: 10/09/24 18:06 Dose: 4 mg Documented By: REGINA (1) Pancreatitis Acute pancreatitis complication: no infection or necrosis Chronicity: acute Pancreatitis type: unspecified pancreatitis type Qualified Code(s): K85.90 - Acute pancreatitis without necrosis or infection, unspecified
[2024-10-10] MEDS ORDERED: KETOROLAC TROMETHAMINE 15 MG/ML VIAL IV PRN (19:16)
[2024-10-10] MEDS: oxyCODONE HCL IR 5 MG TAB (IMMEDIATE RELEASE) PO PRN (21:00)
[2024-10-11 00:41] VITALS: O2SAT 99
[2024-10-11 07:25] LABS: Hematocrit (blood only) 28.6 % (37.0-47.0); Mean Corpuscular Hemoglobin 31.7 pg (25.0-34.0); Mean Corpuscular Volume 90.8 fL (80.0-100.0); Mean Platelet Volume 10.5 fL (9.4-12.4); Platelet Count 343 K/uL (130-400); RDW Coefficient of Variation 11.2 % (11.5-14.5); RDW Standard Deviation 37.4 fL (36.4-46.3); Red Blood Count 3.15 M/uL (4.20-5.40); White Blood Count 5.83 K/ul (4.8-10.8)
[2024-10-11] MEDS: LANTUS PER UNIT CHARGE SC SCH (07:50)
--- NOTE | 2024-10-11 10:03 | Pharmacy Report ---
Pharmacy Glycemic Short Note 2 - Date of Service October 11, 2024 - Glycemic Short BSG Results (Last 24 hours): 10/10/24 10/10/24 10/10/24 11:43 16: 20:07 POC Glucose 277 H 149 H 191 H 10/11/24 07:12 POC Glucose 240 H OUTPATIENT ANTIDIABETIC REGIMEN: * Lantus 14 units SC AM * Aspart ~ 50 units over total day * HbA1c: 12.8% (10/10/24) - significant increase from previous A1c from ~5 months ago ASSESSMENT: 10/11: * Received 25 units of insulin yesterday, 10 of which were basal. BSGs were: [phone] mg/dL. * Fasting BSG this AM elevated at 240 mg/dL. Will increase basal this AM. * No change to Novolog parameters at this time. Patient tolerating T1DM diet and remains on Unasyn. 10/10: * Patient received approximately 27 units of insulin total yesterday, 15 from basal and ~12 from IV insulin drip. * BSGs trended down nicely on insulin drip which was able to be discontinued around dinner time last night. Patient remains on Unasyn and 1/2 NS + 20 K at 175 mL/hr. A full liquid diet has been ordered and patient will eat per RN. Fluid will d/c around 1300 today. * Fasting BSG was 83 mg/dL this AM. Given diet ordered and patient eating, will reduce basal dose by one-third today. No changes to Novolog for now. 10/09: * YS is a 39 YOF here inpatient for severe hyperglycemia requiring insulin gtt to be initiated. Pharmacy consulted to manage her T1DM while inpatient. * PMH includes pancreatitis, asthma, HTN, GERD, and alcohol dependence. * Pt currently NPO for her jaapg-ql-ceucjdp pancreatitis. * Pharmacy following parameters similar to previous admissions to transfer pt from insulin gtt to basal/bolus regimen. PLAN FOR INPATIENT GLYCEMIC CONTROL: * Basal insulin * Lantus 15 units SC daily * Bolus insulin * NovoLog per scale ACHS * Goal Range: Low 120 mg/dL - High 150 mg/dL * Correction Factor: 35 mg/dL/unit * Nutritional / Prandial insulin per carb ratio of 1 unit per 12 grams CHO consumed
[2024-10-11 11:12] VITALS: BP 101/69; PULSE 84; RESP 18; TEMP 98.6
--- NOTE | 2024-10-11 15:09 | Discharge Summary ---
Discharge Summary Date of Service October 11, 2024 Principal Dx & Hospital Course #1 = Principal Diagnosis (1) Pancreatitis: (2) DKA (diabetic ketoacidosis): (3) Metabolic acidosis: (4) Sialadenitis: Plan This is a 39-year-old female who has significant past medical history of type 1 diabetes mellitus on insulin, chronic pancreatitis, asthma, hypertension, GERD, history of alcohol dependence and depression with anxiety who presents to ED at the referral PCP due to outpatient lab work revealing hyperglycemia. #Borderline DKA in setting of T1DM -gap closed, receiving subq insulin -museum educator and dexcom ordered and ready for discharge #Acute on chronic pancreatitis -IVF, consult GI, antiemetics/pain meds -tolerating solids well, minimal pain #R facial swelling #Possible Sialadenitis -empiric Unasyn for now, oralmaxillofacial consult obtain blood cultures -discharge with augmentin #Pseudohyponatremia in setting of DKA: correct serum sodium normal Notes For Next Care Provider This is a 39-year-old female who has significant past medical history of type 1 diabetes mellitus on insulin, chronic pancreatitis, asthma, hypertension, GERD, history of alcohol dependence and depression with anxiety who presents to ED at the referral PCP due to outpatient lab work revealing hyperglycemia. Noted to have right facial swelling on medicine, ENT consutled, recommended massage, given abx. Hyperglycemia noted, museum educator and pharmacy consulted for donnie aetic management. Pancreatitis acute on chronic noted, fluids given with pain control, patient tolerating full diet. Patient tolerated full diet and was medically ready for discharge home. Medication Changes From Visit -augmentin, percocet Admission HPI Per Admitting Provider This is a 39-year-old female who has significant past medical history of type 1 diabetes mellitus on insulin, chronic pancreatitis, asthma, hypertension, GERD, history of alcohol dependence and depression with anxiety who presents to ED at the referral PCP due to outpatient lab work revealing hyperglycemia. History obtained from ED provider, patient and external chart review. She was seen in clinic on 10/08 secondary to inability to tolerate oral intake as well as abdominal pain. She has history of recurrent pancreatitis. She follows with [facility] and her last ERCP with sphincterotomy was in April by Dr. Nielsen. Per chart review she has been unable to tolerate oral intake since 08/30 has been mostly doing liquids. Outpatient lab work was obtained yesterday which revealed elevated blood glucose level of 700 and elevated anion gap concerning for DKA. She was referred to ED. patient reports inability to tolerate oral intake since August 30. She reports being able to tolerate milk and that is the only thing that helps her symptoms. Over the last 1.5 weeks she has developed excruciating epigastric abdominal pain radiating to her back. Pain is constant, waxes and wanes in severity, is improved with milk and nothing makes it worse. It feels similar to her prior episodes of pancreatitis. She has had significant episodes of nausea and vomiting. She reports being compliant with her insulin. She further feels feverish, chilled, sweats, chest pain from the radiation of her epigastric pain. She has not been moving her bowels consistently due to poor intake. She has been urinating without difficulty. She denies any dysuria, hematuria or increased urgency. This morning she reports waking up to swelling on the right side of her face. Pt denies significant ETOH use. States she had 1 glass of wine last night to help her sleep because she hasn't been able to sleep through all this. In ED patient was hemodynamically stable. Lab work notable for significant hyperglycemia with glucose over 700, lipase elevated at 447, VBG pH 7.3. Discharge Exam Gen: A&O 3 NAD HEENT: NCAT, EOMI, not icteric. External ears normal. No rhinorrhea. Moist mucous membranes. Neck: Supple, full range of motion, no observable masses, No meningeal sign. Lungs: No Respiratory distress. CV: RRR, no edema. Abdomen: trace tenderness to palpation, improved from prior MSK: No joint swelling, no redness. Skin: No rashes, petechiae, lesions. Normal color per patient. Neuro: Normal Gait, Grossly intact. Psych: Appropriate for situation. Updated Medication List Medication Instructions Recorded Confirmed Type epinephrine 0.3 mg/0.3 mL 0.3 mg IM UD PRN Allergic Reaction 11/18/21 10/09/24 History injection, auto-injector Medical Marijuana 1 dose inhalation HS PRN Sleep 02/08/22 10/09/24 History blood sugar diagnostic #100 ea 04/25/24 07/19/24 Rx blood-glucose meter #1 ea 04/25/24 07/19/24 Rx lancets #200 ea 04/25/24 07/19/24 Rx magnesium chloride 64 mg 64 mg PO BID #60 tabs 04/25/24 10/09/24 Rx (magnesium chloride) tablet,delayed release pen needle, diabetic 32 gauge x #200 ea 05/10/24 07/19/24 Rx 5/32" (BD Bozena 2nd Gen Pen Needle) blood-glucose sensor (Dexcom G7 #3 ea 05/27/24 05/27/24 Rx Sensor device) insulin pump cart,automated,BT #10 ea 05/27/24 07/19/24 Rx (Omnipod 5 G6 Pods (Gen 5) subcutaneous cartridge) insulin pump cartridge,automated #1 ea 05/27/24 07/19/24 Rx dose,BT with controller subcutaneous (Omnipod 5 G6 Intro Kit (Gen 5) subcutaneous cartridge with controller) potassium chloride 10 mEq 10 meq BID 06/09/24 10/09/24 History capsule,extended release insulin aspart U-100 100 unit/mL 50 unit (0.5 mL) subcut DAILY 30 07/19/24 10/09/24 Rx (3 mL) subcutaneous pen (Novolog days #15 mL FlexPen U-100 Insulin aspart) sumatriptan succinate 50 mg tablet 50 mg PO UD PRN Migraine Headache 07/19/24 10/09/24 History hydroxyzine HCl 25 mg tablet 25 mg PO Q6H PRN Itching 10/09/24 10/09/24 History insulin glargine 100 unit/mL 14 unit SC QAM 10/09/24 10/09/24 History subcutaneous solution (Lantus U-100 Insulin) ketorolac 10 mg tablet 10 mg PO Q8H PRN Pain 10/09/24 10/09/24 History omeprazole 40 mg capsule,delayed 40 mg PO UD 10/09/24 10/09/24 History release amoxicillin 500 mg-potassium 1 tab PO BID 5 days #10 tabs 10/11/24 Rx clavulanate 125 mg tablet (Augmentin) oxycodone-acetaminophen 5 mg-325 1 tab PO Q8H PRN pain 10 days #30 10/11/24 Rx mg tablet (Percocet) tabs Hospital Stay Data Consultations 10/09/24 11:04 ED Decision to Admit Stat 10/09/24 11:42 Consult Gastroenterology Routine 10/09/24 13:03 Consult Oromaxillofacial Surgery Routine Diagnostic Imagining Performed 10/09/24 09:29 CT Abd and Pelvis [CT abd pelvis IV con only] Stat 10/09/24 11:38 CT neck soft tissues [CT soft tissue neck w con] Stat Pending Results Patient Have Any Pending Studies at Discharge: No Discharge Instructions Given to Patient (Per Discharging Provider) 1. Please eat soft foods for a few days to help with pancreatitis symptoms. 2. Follow up with closely with GI, endocrinology. Total Time Total Time Spent Total Time Spent (In Minutes): I spent a total of 35 minutes in direct patient care, including [id number] time with the patient and/or family, reviewing medical records, ordering and reviewing diagnostic tests, and coordinating care with other healthcare providers. This time includes: history taking, physical examination, medical decision making, counseling, ECG interpretation, imaging interpretation, lab interpretation, orders, and education, excluding time spent in the performance of separately billed services.
== END 2024-10-11 14:09 | disposition home or self-care (01) | DRG 637 ==
LOC: ED 08:20 → SUATTDRO 10:54 → EDINP 10:54 → 2S 12:26